=== PATIENT | female | born 1960 | race Caucasian/White ===

== ENCOUNTER → 2018-03-05 10:29 | Outpatient (CLI) | payer MEDICAID, SELFPAY ==
[2018-03-05 15:15] LABS: Abs Immature Grans 0.01 k/cumm (0.0-0.09); Absolute Basophil Count 0.06 k/cumm (0.0-0.2); Absolute Eosinophil Count 0.21 k/cumm (0.0-0.7); Absolute Lymphocyte Count 2.92 k/cumm (1.2-3.4); Absolute Monocyte Count 0.47 k/cumm (0.11-0.7); Absolute Neutrophil Count 3.78 k/cumm (1.2-6.7); Basophils % 0.8; Eosinophils % 2.8; HCT 45.6 % (36.0-46.0); HGB 15.5 g/dL (12.0-15.5); Immature Grans % 0.1; Lymphocytes % 39.2; Mean Corpuscular Hemoglobin 30.6 pg (27.0-33.0); Mean Corpuscular Volume 90.1 fL (80-95); Mean Platelet Volume 10.8 fL (8.0-11.0); Monocytes % 6.3; Neutrophils % 50.8; Platelet Count 164 x1000/uL (130-400); RBC 5.06 m/cumm (4.00-5.20); RBC Distribution Width 14.2 % (11.7-14.6); White Blood Cell Count 7.45 k/cumm (4.4-10.8)
[2018-03-05 15:25] LABS: Prothrombin Time 9.4 sec (9.3-10.8)
[2018-03-05 15:45] LABS: ALT 31 U/L (12-78); AST 19 U/L (15-37); Albumin 4.2 g/dL (3.4-5.0); Alkaline Phosphatase 115 U/L (46-116); Anion Gap 8.6 mmol/L (3-11); BUN 16 mg/dL (7-18); Bilirubin, Total 0.4 mg/dL (0.2-1.0); CO2 26.4 mmol/L (21.0-32.0); CREATININE 0.73 mg/dL (0.55-1.02); Calcium 9.1 mg/dL (8.5-10.1); Chloride 105 mmol/L (98-107); Glucose 129 mg/dL (70-100); Potassium 3.8 mmol/L (3.5-5.1); Sodium 140 mmol/L (136-145); Total Protein 7.4 g/dL (6.4-8.2)
[2018-03-06 12:03] LABS: AFP Tumor Marker <2.0 ng/mL (<8.1)
== END ==
PROVIDERS: PCP Family Medicine; Visit Provider Internal Medicine
DX: K57.81 Diverticulitis of intestine, part unspecified, with perforation and abscess with bleeding (principal)
CPT/HCPCS: 36415; 80053; 82105; 85025; 85610

== ENCOUNTER 2018-03-07 14:48 | Outpatient (CLI) | payer MEDICAID, SELFPAY ==
[2018-03-08 09:45] LABS: Alpha 1 Antitrypsin,Serum 119 mg/dL (90-200)
== END 2018-03-07 14:49 ==
PROVIDERS: PCP Family Medicine; Visit Provider Family Medicine
DX: K74.60 Unspecified cirrhosis of liver (principal)
CPT/HCPCS: 36415; 82103

== ENCOUNTER 2018-03-12 01:28 | Outpatient (CLI) | payer MEDICAID, SELFPAY ==
--- NOTE | 2018-03-12 09:04 | DI.US_ITS ---
SYMPTOM/DIAGNOSIS: H/O HEP C, HCC SCREENING, HEPATIC CIRRHOSIS K74.60 ABDOMINAL ULTRASOUND: 03/12 The patient reportedly has a history of cirrhosis. There is a subtle nodular contour of the liver consistent with this diagnosis. No focal hepatic lesion identified. Gallbladder is normal in appearance as is the biliary system. Spleen is unremarkable in appearance. Kidneys appear normal. Aorta and IVC are of normal diameter. Portal venous flow is normodirectional. CONCLUSION: Negative abdominal ultrasound except for questionable nodular contour of the liver consistent with the patient's diagnosis of hepatic cirrhosis.
== END 2018-03-12 01:48 ==
PROVIDERS: PCP Family Medicine; Visit Provider Internal Medicine
DX: K74.60 Unspecified cirrhosis of liver (principal); B18.2 Chronic viral hepatitis C
CPT/HCPCS: 76700

== ENCOUNTER 2018-04-25 09:15 | Day surgery (SDC) | payer MEDICAID, SELFPAY ==
[2018-04-25 09:51] VITALS: BP 132/88; PULSE 88; RESP 18; TEMP 36.4; O2SAT 95
[2018-04-25 09:55] VITALS: BP 132/88; PULSE 88; RESP 18; TEMP 36.4; O2SAT 95
--- NOTE | 2018-04-25 10:21 | W.PM.DSUDISC ---
Discharge Plan Disposition Patient Disposition: HOME Condition: Good Discharge Details Reason For Visit: R trigger thumb release Attending Provider: Berry Zamudio Primary Care Provider: Hai Lopez Home Meds and New Rx's Prescriptions: Continue meclizine [VertiCalm] 25 MG tablet 25 mg PO HS PRNRF: 0 lancets 1 EACH misc 1 ea Miscellaneous BID Qty: 180 RF: 11 acetaminophen 500 MG tablet 500 mg PO HS PRNRF: 0 omeprazole 40 MG capsule,delayed release(DR/EC) 40 mg PO DAILY Qty: 90 RF: 3 albuterol sulfate [ProAir HFA] 8.5 GM HFA aerosol inhaler 2 puff Inhalation Q4H PRN Qty: 1 RF: 5 blood sugar diagnostic [Ampulseuch Ultra Test] 1 EACH strip 1 ea Miscellaneous QID Qty: 200 RF: 3 insulin aspart U-100 [Novolog Flexpen U-100 Insulin] 100 UNIT/1 ML insulin pen SQ twice daily MDD 40 units Qty: 3 RF: 0 pen needle, diabetic [BD Ultra-Fine Orig Pen Needle] 1 EACH needle 1 ea Miscellaneous BID Qty: 1 RF: 4 lisinopril 20 MG tablet 20 mg PO DAILY Qty: 90 RF: 3 empagliflozin [Jardiance] 25 MG tablet 25 mg PO DAILY Qty: 90 RF: 3 promethazine 12.5 MG tablet 12.5 mg PO Q6H PRN Qty: 30 RF: 0 varenicline [Chantix] 0.5 MG tablet 0.5 mg PO BID 30 Days Qty: 60 RF: 3 Atorvastatin Calcium 20 MG tablet 20 mg PO DAILY 90 Days Qty: 90 RF: 3 gabapentin 300 MG capsule 300 mg PO TID 30 Days Qty: 90 RF: 1 Discharge Instructions Stand Alone Forms: Fania Jose. Finger Release Activity:: Elevate Remove Dressings/Wound Care:: 48 hours Shower/Bathe:: 48 hours Diet:: Carb Counting Discharge Orders Discharge Orders: Discharge Order (Routine); Ordered 04/25/18 Ordered By: Berry Zamudio DS: Diagnosis Discharge Diagnosis (1) Trigger thumb of right hand: Status: Chronic
[2018-04-25 11:45] VITALS: BP 138/83; PULSE 77; RESP 16; O2SAT 96
[2018-04-25] MEDS: Bupivacaine 0.5% Pres-Free 30 ML VIAL (11:49)
[2018-04-25] MEDS: Lidocaine 1% Pres-Free 5 ML VIAL (11:59)
[2018-04-25 12:03] VITALS: BP 144/91; PULSE 65; RESP 17; O2SAT 96
--- NOTE | 2018-04-25 20:36 | W.PM.OP ---
Date of service: 04/25/18 Time of Service: 12:36 Operative Note DATE OF PROCEDURE: 04/25/18 PRE-OP DIAGNOSIS: Trigger Finger - Right Thumb POST-OP DIAGNOSIS: same PROCEDURE: Trigger Finger Release - Right Thumb SURGEON: Berry Zamudio ANESTHESIA: local PATHOLOGY: none sent COMPLICATIONS: None Patient was transported to: same day Patient's condition: stable Indications: I have seen Mary Beth in clinic for symptoms of a trigger finger. The catching, clicking, locking, and pain limited function. The diagnosis of trigger finger was evident. The symptoms had not responded to conservative measures. I discussed trigger finger release with the patient. I reviewed the risks of the procedure to include, but not limited to, bleeding, infection, pain, stiffness, incomplete release, damage to nerves or vessels, continued catching, recurrence. Despite these risks, the patient elected to proceed. Findings: There was a tightened A1 ricky which was released. The flexor tendons were inspected and the patient was able to move the finger without any catching, clicking, or locking. Procedure Description: Mary Beth was greeted in the preoperative holding area where the correct side was identified and marked. The consent was reviewed with the patient and signed. All questions were answered. Mary Beth was taken back to the operating room. The patient was placed into the supine position on the operating room table with the right arm on an arm board. All bony prominences were well padded. No prophylactic antibiotics were administered since this was a clean, elective hand surgical case. The right arm was then prepped with Chloraprep and draped in a standard fashion with stockinette and extremity drape. A timeout to confirm correct identity, side and site, procedure, allergies, anesthesia, and medical concerns was performed. The surgical site was marked as a longitudinal incision directly over the A1 ricky of the involved digit. This was confirmed with palpation during finger flexion. This area, overlying the metacarpal head, was then anesthetized with 1% Lidocaine. The patient tolerated this well and once the anesthetic had setup, the procedure began. A longitudinal incision was made through skin only, approximately 1cm. The deep tissues were dissected bluntly. Once the A1 ricky and flexor tendons were identified the soft tissue including neurovascular structures were retracted medially and laterally. There were no crossing structures over the A1 ricky. The proximal edge of the ricky was identified and the ricky was incised with tenotomy scissors. There was a release of the tendons once this was fully released. The tendons were then removed from the wound and inspected. Excess synovium was resected. The tendons were then returned and the patient was asked to move the finger into deep flexion and back to extension. There was no recreation of the pre-operative symptoms. The hand was then once more inspected for any A0 ricky or area of possible constriction. The wound was then irrigated and the skin was closed with a 4-0 Nylon. This was dressed with gauze and a Conform dressing. The patient tolerated the procedure well and was returned to the Same Day Surgery area in a stable condition suffering no known complication.
--- NOTE | 2018-04-25 20:39 | ROE_ITS ---
Date of service: 04/25/18 Time of Service: 12:36 Operative Note DATE OF PROCEDURE: 04/25/18 PRE-OP DIAGNOSIS: Trigger Finger - Right Thumb POST-OP DIAGNOSIS: same PROCEDURE: Trigger Finger Release - Right Thumb SURGEON: Berry Zamudio ANESTHESIA: local PATHOLOGY: none sent COMPLICATIONS: None Patient was transported to: same day Patient's condition: stable Indications: I have seen Mary Beth in clinic for symptoms of a trigger finger. The catching, clicking, locking, and pain limited function. The diagnosis of trigger finger was evident. The symptoms had not responded to conservative measures. I discussed trigger finger release with the patient. I reviewed the risks of the procedure to include, but not limited to, bleeding, infection, pain , stiffness, incomplete release, damage to nerves or vessels, continued catching , recurrence. Despite these risks, the patient elected to proceed. Findings: There was a tightened A1 rikcy which was released. The flexor tendons were inspected and the patient was able to move the finger without any catching, clicking, or locking. Procedure Description: Mary Beth was greeted in the preoperative holding area where the correct side was identified and marked. The consent was reviewed with the patient and signed. All questions were answered. Mary Beth was taken back to the operating room. The patient was placed into the supine position on the operating room table with the right arm on an arm board. All bony prominences were well padded. No prophylactic antibiotics were administered since this was a clean, elective hand surgical case. The right arm was then prepped with Chloraprep and draped in a standard fashion with stockinette and extremity drape. A timeout to confirm correct identity, side and site, procedure, allergies, anesthesia, and medical concerns was performed. The surgical site was marked as a longitudinal incision directly over the A1 ricky of the involved digit. This was confirmed with palpation during finger flexion. This area, overlying the metacarpal head, was then anesthetized with 1 % Lidocaine. The patient tolerated this well and once the anesthetic had setup , the procedure began. A longitudinal incision was made through skin only, approximately 1cm. The deep tissues were dissected bluntly. Once the A1 ricky and flexor tendons were identified the soft tissue including neurovascular structures were retracted medially and laterally. There were no crossing structures over the A1 ricky. The proximal edge of the ricky was identified and the ricky was incised with tenotomy scissors. There was a release of the tendons once this was fully released. The tendons were then removed from the wound and inspected. Excess synovium was resected. The tendons were then returned and the patient was asked to move the finger into deep flexion and back to extension. There was no recreation of the pre- operative symptoms. The hand was then once more inspected for any A0 rciky or area of possible constriction. The wound was then irrigated and the skin was closed with a 4-0 Nylon. This was dressed with gauze and a Conform dressing. The patient tolerated the procedure well and was returned to the Same Day Surgery area in a stable condition suffering no known complication.
== END 2018-04-25 12:25 | disposition home or self-care (01) ==
PROVIDERS: PCP Family Medicine; Visit Provider Student in an Organized Health Care Education/Training Program
PROC: (CPT 26055; principal; 2018-04-25 12:30)
DX: M65.311 Trigger thumb, right thumb (principal)
CPT/HCPCS: 26055

== ENCOUNTER 2018-11-07 11:04 | Outpatient (CLI) | payer MEDICAID, SELFPAY ==
--- NOTE | 2018-11-07 11:09 | DI.RAD_ITS ---
SYMPTOMS/DIAGNOSIS: LT 5TH PIP PAIN, SWELLING, M79.642 LEFT HAND: Three views were obtained. There are degenerative changes at the radioulnar joint and there is an accessory ossicle of the ulnar styloid. Slight degenerative changes of the IP joints are noted. No other significant abnormality seen.
[2018-11-07 12:34] LABS: Uric Acid 4.2 mg/dL (2.6-6.0)
== END 2018-11-07 11:24 ==
PROVIDERS: PCP Family Medicine; Visit Provider Nurse Practitioner
DX: M79.642 Pain in left hand (principal); M19.042 Primary osteoarthritis, left hand
CPT/HCPCS: 36415; 73130; 84550

== ENCOUNTER 2018-12-06 22:10 | Emergency (ER) | payer MEDICAID, SELFPAY ==
[2018-12-06 22:16] VITALS: BP 138/83; PULSE 113; RESP 17; TEMP 36.5; O2SAT 96
--- NOTE | 2018-12-06 22:19 | W.ED.GENAD ---
Discharge Plan Disposition Patient Disposition: HOME Condition: Stable Discharge Details Chief Complaint: Orthopedic Clinical Impression: Scaphoid fracture, Sprain of wrist Primary Care Provider: Hai Lopez ED Provider: Laura Lloyd Home Meds and New Rx's Prescriptions: Continued albuterol sulfate [ProAir HFA] 90 mcg/actuation HFA aerosol inhaler 2 puff Inhalation Q4H PRN Qty: 1 RF: 3 OneTouch Ultra Test strip 1 ea Miscellaneous QID Qty: 200 RF: 3 Jardiance 25 mg tablet 25 mg PO DAILY Qty: 90 RF: 3 lisinopril 20 mg tablet 20 mg PO DAILY Qty: 90 RF: 3 Chantix 0.5 mg tablet 0.5 mg PO BID 30 Days Qty: 60 RF: 3 pen needle, diabetic [BD Ultra-Fine Mini Pen Needle] 31 gauge x 3/16 needle .ROUTE .MEDSUPPLY Qty: 100 RF: 3 lancets 33 gauge misc 1 ea Miscellaneous BID Qty: 180 RF: 3 albuterol sulfate 1.25 mg/3 mL solution for nebulization 1.25 mg IH QID PRN (Reason: shortness of breath or wheezing) Qty: 120 RF: 2 meclizine [VertiCalm] 25 MG tablet 25 mg PO HS PRNRF: 0 omeprazole 40 MG capsule,delayed release(DR/EC) 40 mg PO DAILY Qty: 90 RF: 3 Lantus Solostar U-100 Insulin 100 unit/mL (3 mL) insulin pen 46 unit SC DAILY Qty: 15 RF: 3 Discharge Instructions Instructions: Wrist Sprain (ED) Additional Instructions: Encourage rest, ice, elevation. Tylenol and/or Ibuprofen as needed for discomfort. Use thumb spica until reevaluated by orthopedics. Please call orthopedics Sunday to schedule follow up. Avoid heavy lifting. Seek care urgently once again with new/worsening symptoms. Stand Alone Forms: Work Release Referrals: Hai Lopez DO [Primary Care Provider] - Berry Zamudio MD [ [facility] STAFF PHYSICIAN] - Discharge Data Discharge Date/Time-TO BE ENTERED AT DEPARTURE: 12/06/18 23:21 Medical Decision Making Patient is a 58-year-old [id number] female presents today after FOOSH. Reports that she was stepping over a low fence when she tripped falling forward on her outstretched hand. Denies any altered sensation. Denies other injury the time of the incident. No opening of the skin. Patient is tender over the snuffbox and distal radius. She is also endorsing some elbow discomfort really on the lateral aspect. She does have good range of motion of the elbow with flexion extension but supination pronation causes discomfort in the wrist. No evidence of trauma elsewhere. Brisk capillary refill, sensation intact. Will give Toradol, patient has been on this historically with good results. Will obtain radiographic images. XR reviewed by radiologist with no acute abnormality noted. Encouraged RICE. with the patients snuffbox tenderness, will place in thumb spica and have her f/u with ortho. She has seen Dr. Zamudio historically, had trigger finger released on affected hand. All of her questions and concerns were addressed and she is in agreement this plan HPI General Mode of arrival: ambulatory. Date/Time Provider Initiated Documentation: 12/06/18 22:18. Limitations to Documentation: no limitations. Information obtained by: patient. History of Present Illness 58 year old F presents to the emergency department with the chief complaint of right wrist and elbow pain, described as severe, with intensity rated at 10. Quality is described as sharp, and is localized to the right and upper extremity. Patient reports no radiation. Patient started experiencing this minute(s) and it has been constant. Immobilization improves symptom(s), Movement worsens symptoms . Patient notes no other symptoms.. Patient did receive the following treatments prior to arrival, cold therapy Related Data Home Medications Medication Instructions Recorded Confirmed meclizine [VertiCalm] 25 mg PO HS PRN tab-cap 11/27/13 12/06/18 omeprazole 40 mg PO DAILY #90 tab-cap 05/09/16 12/06/18 albuterol sulfate HFA 90 2 puff INHALATION Q4H PRN #1 puff 06/06/18 12/06/18 mcg/actuation aerosol inhaler blood sugar diagnostic strips #200 strip 06/06/18 11/06/18 empagliflozin 25 mg tablet 25 mg PO DAILY #90 tab 06/06/18 12/06/18 lisinopril 20 mg tablet 20 mg PO DAILY #90 tab-cap 06/06/18 12/06/18 varenicline 0.5 mg tablet 0.5 mg PO BID 30 Days #60 tab-cap 06/06/18 12/06/18 albuterol sulfate 1.25 mg/3 mL 1.25 mg IH QID PRN #120 ml 07/03/18 12/06/18 solution for nebulization lancets 33 gauge #180 ea 09/13/18 11/06/18 pen needle, diabetic 31 gauge x #100 each 09/13/18 11/06/1809/21 insulin glargine (U-100) 100 46 unit SC DAILY #15 ml 09/19/18 12/06/18 unit/mL (3 mL) subcutaneous pen Previous Rx's Medication Instructions Recorded albuterol sulfate HFA 90 2 puff INHALATION Q4H PRN #1 puff 06/06/18 mcg/actuation aerosol inhaler blood sugar diagnostic strips #200 strip 06/06/18 empagliflozin 25 mg tablet 25 mg PO DAILY #90 tab 06/06/18 lisinopril 20 mg tablet 20 mg PO DAILY #90 tab-cap 06/06/18 varenicline 0.5 mg tablet 0.5 mg PO BID 30 Days #60 tab-cap 06/06/18 albuterol sulfate 1.25 mg/3 mL 1.25 mg IH QID PRN #120 ml 07/03/18 solution for nebulization lancets 33 gauge #180 ea 09/13/18 pen needle, diabetic 31 gauge x #100 each 09/13/1809/21 insulin glargine (U-100) 100 46 unit SC DAILY #15 ml 09/19/18 unit/mL (3 mL) subcutaneous pen Allergies Allergy/AdvReac Type Severity Reaction Status Date / Time fluoxetine HCl [From Prozac] Allergy Intermediate rash Verified 12/06/18 22:22 metformin AdvReac Severe diarrhea Verified 12/06/18 22:22 rofecoxib [From Vioxx] AdvReac Severe bleeding Verified 12/06/18 22:22 aspirin AdvReac Intermediate GI Upset Verified 12/06/18 22:22 celecoxib [From Celebrex] AdvReac Intermediate GI Upset Verified 12/06/18 22:22 naproxen AdvReac Intermediate Stomach Verified 12/06/18 22:22 intolerance Review of Systems Constitutional Reports as per HPI, Denies chills, Denies fever(s), Denies headache(s) and Denies weakness ENT Denies headache(s) Cardiovascular Reports as per HPI Respiratory Reports as per HPI and Denies cough Musculoskeletal Reports as per HPI and Denies tingling Integumentary/Breasts Reports as per HPI, Denies rash and Denies wounds Neurologic Reports as per HPI, Denies headache(s), Denies tingling, Denies paresthesias and Denies weakness PFS Surgical History COLONOSCOPY W/ BX (10/10/17) section UGI W/ BX (10/10/17) elbow surg x2 ganglion wrist cyst removal x2 salivary gland (02/23/17) Family History Father Heart disease Sister COPD (chronic obstructive pulmonary disease) Obese Sister No problems noted. Brother Diabetes Essential hypertension Brother COPD (chronic obstructive pulmonary disease) Brother No problems noted. 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 Pets and animals: Yes What type of physical activity do you participate in: none Do you feel safe at home: Yes Do you feel safe in your relationship?: Yes Exam Const General: cooperative, healthy appearing, comfortable, no acute distress, well developed and well groomed Nutritional Appearance: average body habitus and well nourished Orientation: alert and awake Resp Effort & Inspection: normal respiratory effort, able to speak in complete sentences and no respiratory distress Cardio Rate: regular rate Rhythm: regular rhythm Skin General skin exam: no rashes or lesions noted Lesions: no lesions Rashes: no rashes Trauma: no lacerations or abrasions Neuro General: alert and awake Cognition: normal cognition Speech: speech normal Gait: normal gait Motor: muscle tone normal throughout Sensory Exam: no sensory deficits noted Extrem Right upper extremity: normal capillary refill, elbow/forearm Details: tenderness Location: of the lateral epicondyle, normal ROM and distal pulses intact; no swelling, no unusual warmth, no abrasions and no ecchymosis, wrist Details: tenderness Location: of the distal radius and of the anatomic snuffbox, abnormal ROM Details: pain with active ROM during, normal vascular exam and radial pulse present; no unusual warmth, no abrasions, no lacerations, no ecchymosis and no deformity and hand Details: normal to inspection, normal capillary refill, neuromotor exam normal and neurosensory exam normal; no cyanosis and no edema Psych Appearance: grossly normal and well kempt Mental Status: mental status grossly normal Speech and Movement: speech and movement normal
--- NOTE | 2018-12-06 22:32 | DI.RAD_ITS ---
SYMPTOM/DIAGNOSIS: FELL ON OUTSTRETCHED HAND, PAIN RIGHT ELBOW: Three views were obtained. There are mild degenerative changes of the joints of the elbow. There is no evidence of an elbow joint effusion or hemarthrosis. There is no evidence of acute fracture. RIGHT WRIST: Four views were obtained. There are mild degenerative changes of the joints of the carpus. There is no evidence of acute fracture or dislocation.
--- NOTE | 2018-12-07 00:06 | DI.VRAD_ITS ---
EXAM: XR Right Wrist EXAM DATE/TIME: 12/06/2018 10:35 PM CLINICAL HISTORY: 58 years old, female; Injury or trauma; Fall; Initial encounter; Abrasion; Wrist; Right; Injury date: 12/06/18; Patient HX: Foosh TECHNIQUE: Imaging protocol: XR Right wrist. Views: 3 or more views. COMPARISON: No relevant prior studies available. FINDINGS: Bones/joints: Normal. Soft tissues: Normal. IMPRESSION: No acute findings. Dictated and Authenticated by: Otilio Lang MD. Ordering:LLUVIA Sanchez MD
--- NOTE | 2018-12-07 00:06 | DI.VRAD_ITS ---
EXAM: XR Right Elbow EXAM DATE/TIME: 12/06/2018 10:35 PM CLINICAL HISTORY: 58 years old, female; Injury or trauma; Fall; Initial encounter; Sprain or strain; Elbow; Right; Injury details: Foosh TECHNIQUE: Imaging protocol: XR Right elbow. Views: 3 or more views. COMPARISON: No relevant prior studies available. FINDINGS: Bones/joints: There is no evidence of a fracture or a dislocation. There is a small olecranon spur. Soft tissues: There are no fat pad signs. IMPRESSION: Small olecranon spur. No evidence of a fracture or a dislocation. Dictated and Authenticated by: Otilio Lang MD. Ordering:LLUVIA Sanchez MD
== END 2018-12-06 23:21 | disposition home or self-care (01) ==
PROVIDERS: Emergency Provider Physician Assistant; PCP Family Medicine
DX: S63.501A Unspecified sprain of right wrist, initial encounter (principal); M25.521 Pain in right elbow; W01.0XXA Fall on same level from slipping, tripping and stumbling without subsequent striking against object, initial encounter
CPT/HCPCS: 96372; 99284; 73080; 73110; L3807

== ENCOUNTER 2018-12-23 08:42 | Outpatient (CLI) | payer MEDICAID, SELFPAY ==
--- NOTE | 2018-12-23 08:22 | DI.RAD_ITS ---
SYMPTOM/DIAGNOSIS: F/U RT WRIST PAIN RIGHT WRIST: No fracture or dislocation is seen. There are mild degenerative changes. No erosive or productive changes are seen. IMPRESSION: Mild degenerative changes.
== END 2018-12-23 09:02 ==
PROVIDERS: PCP Family Medicine; Visit Provider Student in an Organized Health Care Education/Training Program
DX: M25.531 Pain in right wrist (principal); M19.031 Primary osteoarthritis, right wrist
CPT/HCPCS: 73110

== ENCOUNTER 2019-04-16 16:58 | Outpatient (REF) | payer MEDICAID, SELFPAY | END 2019-04-16 17:18 | LOC: LBO 16:58 | PROVIDERS: PCP Family Medicine; Visit Provider Internal Medicine | DX: J44.1 Chronic obstructive pulmonary disease with (acute) exacerbation (principal) | CPT/HCPCS: 87070; 87205 ==

== ENCOUNTER 2019-08-29 02:42 | Outpatient (CLI) | payer MEDICAID, SELFPAY ==
--- NOTE | 2019-08-29 12:45 | DI.CT_ITS ---
EXAM: CT HEAD WO CLINICAL HISTORY: Transient vision loss R eye, residual red desat, optic neuritis, rt H46.9. TECHNIQUE: Imaging Protocol: Axial computed tomography images with coronal and sagittal reformatted images were created and reviewed Noncontrast COMPARISON: No exams were available for comparison FINDINGS: Ventricles and Extra axial spaces: Normal in size and morphology for the patient's age. Hemorrhage: None. Cerebral parenchyma: Normal. Midline shift: None. Brainstem/Cerebellum: Normal. Calvarium: Normal. Visualized Paranasal sinuses/Mastoids: Clear. The orbits are unremarkable. IMPRESSION: Normal CT of the head. RADIATION DOSE DELIVERED: DATA REPOSITORY: All CT scans at this facility are submitted to the National Radiology Data Registry (NRDR) Dose Index Registry (DIR) with the [employer] (ACR). RADIATION OPTIMIZATION: All CT scans at this facility use at least one of these dose optimization te chniques: automated exposure control; mA and/or kV adjustment per patient size (includes targeted exa ms where dose is matched to clinical indication); or iterative reconstruction.
== END 2019-08-29 03:02 ==
PROVIDERS: PCP Family Medicine; Visit Provider Family Medicine
DX: H53.121 Transient visual loss, right eye (principal); H53.8 Other visual disturbances
CPT/HCPCS: 70450

== ENCOUNTER 2019-09-19 06:48 | Outpatient (CLI) | payer MEDICAID, SELFPAY ==
--- NOTE | 2019-09-18 06:30 | DI.MRI_ITS ---
EXAM: MR C SPINE T SPINE WO/W CLINICAL HISTORY: Possible neuromyelitis optica TECHNIQUE: Multiplanar multisequence MRI was performed without intravenous contrast. COMPARISON: MRI - LUMBAR SPINE WO CONTRAST from 03/18/2015 FINDINGS: MRI of the cervical spine: There is no evidence of tonsillar ectopia. There is normal signal seen in the spinal cord. There is mild prominence of the osteophyte disc complex at C5-6 and C6-C7. No significant central spinal can al or neural foraminal stenosis is seen in the cervical spine. Marrow signal is within normal limits . Following contrast administration, no abnormal enhancement is seen in the cervical spinal cord. MRI of the thoracic spine: There is normal signal in the spinal cord. Marrow signal is within normal limits. No focal disc her niation, central spinal canal or neural foraminal stenosis is seen in the thoracic spine. Following contrast administration, no abnormal enhancement is seen in the thoracic spinal cord. IMPRESSION: Unremarkable MRI of the cervical and Thoracic spine. No abnormal enhancement of the cervical or thora cic spinal cord. DATA REPOSITORY:
--- NOTE | 2019-09-19 06:42 | DI.MRI_ITS ---
EXAM: MR ORBIT FACIAL NECK WO/W CLINICAL HISTORY: R SIDED SYMPTOMS SUGGESTIVE OF OPTIC NEURITIS, H46.9, POSSIBLE NEUROMYELITIS TECHNIQUE: Multiplanar multisequence MRI of Pelvis was performed. CONTRAST MATERIAL: IV Contrast: 19 mL of Dotarem contrast administered. COMPARISON: No exams were available for comparison FINDINGS: ORBITS: The anterior and posterior chambers of the globes are intact. The retrobulbar fat is unremark able. Extraocular muscles are unremarkable. OPTIC NERVES: The intracranial and extracranial portions of the optic nerves are within normal limits . Optic chiasm is within normal limits. No MRI evidence of optic neuritis identified. SOFT TISSUES: The soft tissues are unremarkable. OTHER FINDINGS: The [place] of [place] is unremarkable. The visualized paranasal sinuses are clear. T he visualized intracranial structures are unremarkable. IMPRESSION: Normal MRI examination of the orbits. DATA REPOSITORY:
[2019-09-19 08:38] LABS: Anion Gap 6.4 mmol/L (3-11); BUN 22 mg/dL (7-18); CO2 30.6 mmol/L (21.0-32.0); CREATININE 0.86 mg/dL (0.55-1.02); Calcium 8.8 mg/dL (8.5-10.1); Chloride 103 mmol/L (98-107); Glucose 231 mg/dL (74-106); Sodium 140 mmol/L (136-145)
[2019-09-19] MEDS: Normal Saline Flush 10 ML SYR IVP (09:02)
[2019-09-19] MEDS: Gadoterate meglumine 20 ML VIAL 19 ML IVP (09:04)
== END 2019-09-19 07:08 ==
PROVIDERS: PCP Family Medicine; Visit Provider Family Medicine
DX: H46.9 Unspecified optic neuritis (principal); M25.78 Osteophyte, vertebrae
CPT/HCPCS: 80048; 70543; 72156; 72157; 82565

== ENCOUNTER 2019-10-16 00:45 | Outpatient (CLI) | payer MEDICAID, SELFPAY ==
--- NOTE | 2019-10-16 06:45 | DI.US_ITS ---
EXAM: US CAROTID CLINICAL HISTORY: right eye vision loss,CVA,I63.9 TECHNIQUE: Ultrasound performed using standard protocol. COMPARISON: US ABDOMEN from 03/12/2018 FINDINGS: Duplex evaluation of the carotid circulation was performed according to the usual protocol. There is minimal visible atheromatous plaque in the carotid bulbs bilaterally. Flow velocities in the common , internal, and external carotid arteries are within normal limits bilaterally. There is bilateral antegrade vertebral artery flow. IMPRESSION: No evidence of a hemodynamically significant carotid stenosis. Minimal atheromatous plaque in the ca rotid bulbs bilaterally. DATA REPOSITORY:
== END 2019-10-16 01:05 ==
PROVIDERS: PCP Family Medicine; Visit Provider Psychiatry & Neurology Neurology
DX: H54.61 Unqualified visual loss, right eye, normal vision left eye (principal); I63.9 Cerebral infarction, unspecified; I65.23 Occlusion and stenosis of bilateral carotid arteries
CPT/HCPCS: 93880

== ENCOUNTER 2019-10-29 00:45 | Outpatient (CLI) | payer MEDICAID, SELFPAY ==
--- NOTE | 2019-10-29 13:56 | DI.US_ITS ---
APPROVED REPORT EXAM: Comprehensive 2D, Doppler, and color-flow Echocardiogram Patient Location: Out-Patient Commercial Loan Collection Officer: Halie Melgar RDCS (AE) Indications: R eye vision loss, Cerebral infarction Other Information Study Quality: Technically Limited Conclusion Left Ventricle : The left ventricle is normal size. The overall left ventricular systolic function ap pears normal. There is normal left ventricular wall thickness. There is normal LV segmental wall diaz on. The left ventricular diastolic function is normal. LVEF is 55-60%. Right Ventricle : The right ventricle is normal size. The right ventricular systolic function is norm al. Atria : The left atrium size is normal. The right atrium size is normal. The interatrial septum is in tact with no evidence for an atrial septal defect. Valves: There are no hemodynamically significant valvular lesions. Great Vessels : IVC is normal in size and collapses >50% with inspiration. There is none of tricuspi d regurgitation to estimate RVSP. Please see remainder of study for additional details. There is no prior echocardiogram available for comparison. Wall motion Left Ventricle The left ventricle is normal size. The overall left ventricular systolic function appears normal. The re is normal left ventricular wall thickness. There is normal LV segmental wall motion. The left vent ricular diastolic function is normal. There is no ventricular septal defect visualized. LVEF is 55-60 %. Right Ventricle The right ventricle is normal size. The right ventricular systolic function is normal. Atria The left atrium size is normal. The right atrium size is normal. The interatrial septum is intact wit h no evidence for an atrial septal defect. Aortic Valve The Aortic valve is sclerotic. Aortic valve is probably trileaflet. There is no aortic valvular steno sis. No aortic regurgitation is present. Mitral Valve There is mitral annular calcification. No evidence of mitral valve stenosis. Trace mitral regurgitati on. Tricuspid Valve The tricuspid valve is normal in structure. There is no tricuspid valve stenosis. Trace tricuspid reg urgitation. Unable to assess PA pressure. Pulmonic Valve Pulmonic valve is not well visualized. There is no pulmonic valvular stenosis. There is no pulmonic v alvular regurgitation. Great Vessels The aortic root is normal in size. The ascending aorta is normal in size. IVC is normal in size and c ollapses >50% with inspiration. There is none of tricuspid regurgitation to estimate RVSP. Pericardium There is no pericardial effusion. 2D Dimensions IVSD d PLAX 1.04 cm F: 0.6-1.0 LV Vol A2C d MOD 53.5 mL LVPW d PLAX 1.02 cm F: 0.6 - 1.0 LV Vol A4C d MOD 65.0 mL LVID d PLAX 4.48 cm F: 3.8 - 5.2 LA vol/ BSA A2C s A-L 16.2 mL/m2 LVDs 3.00 cm F: 2.2 - 3.5 LA vol/ BSA A4C s A-L 19.9 mL/m2 Ao Root d 2.34 cm F: 2.7 - 3.3 LA Vol/ BSA Biplane s A-L 18.5 mL/m2 RA Area A4C 9.15 cm2 LA Area A4C s MOD 15.14 cm2 RA Vol/ BSA A4C s A-L 8.1 mL/m2 LA Area A2C s MOD 13.28 cm2 Ao Asc Diam d 3.12 cm F: 2.3 - 3.1 LV EF A4C MOD 58.9 % LV EF Teichholz 60.3 % LV EF A2C MOD 61.6 % LVEF (Katz's) 60.39 % F: 54 - 74 LV EF Biplane MOD 60.4 % LV Volume 44.57 mL F: 46 - 106 LV Volume Index 22.73 mL/m2 F: 29 - 61 LV Vol Biplane MOD 59.1 mL FS 31.95 % M-Mode TAPSE 1.90 cm (M/F) >1.7 LV Diastology MV E' medial 0.077 (>0.07 m/s) E/A Ratio 0.9 LV E/e MED 8.70 (<14) MV E Vmax 0.67 (0.4-1.3 m/s) MV E' lateral 0.081 (>0.1 m/s) MV A Vmax 0.75 (0.4-1.3 m/s) LV E/e LAT 8.30 (<14) MV E/A Ratio 0.88 MV E/E' medial 8.74 MV E/E' lateral 8.34 Aortic Valve LVOT Area 2.17 cm2 AoV Area Vmax 1.81 cm2 LVOT Vmax 1.07 m/s AoV Area/ BSA (Vmax) 0.92 cm2/m2 LVOT Mean Dagoberto. 0.64 m/s BRIANNA Mean Dagoberto. 1.53 cm2 LVOT Peak Grad 4.6 mmHg BRIANNA Mean Dagoberto. Index 0.78 cm2/m2 LVOT Mean Grad 2.0 mmHg LVOT VTI 0.214 m LVOT Diam s 1.65 cm (M/F) 1.5-2.5 AoV Vmax 1.28 (0.5-1.3 m/s) Velocity Ratio 0.83 AoV Mean Dagoberto. 0.91 m/s AoV Peak Grad 6.5 mmHg LVOT SV 46.33 mL AoV Mean Grad 3.7 (<5 mmHg) AoV VTI 0.233 (0.18-0.25 m) AoV Area VTI 1.99 (2.5-4.5 cm2) AoV Area/ BSA (VTI) 1.01 cm/m2 Mitral Valve MV DT 276 (160-240 msec) MV PHT 80 msec MV Area PHT 2.75 cm2 Pulmonary Valve PV Vmax 0.92 (0.5-1.5 m/s) RVOT Peak Gr. 2.43 mmHg PV Peak Grad 3.4 mmHg RVOT Mean Gr. 1.20 mmHg PV Mean Grad 2.0 mmHg RVOT VTI 0.138 m PV VTI 0.187 m RVOT Vmax 0.78 m/s
== END 2019-10-29 01:05 ==
PROVIDERS: PCP Family Medicine; Visit Provider Psychiatry & Neurology Neurology
DX: I63.9 Cerebral infarction, unspecified (principal); H54.61 Unqualified visual loss, right eye, normal vision left eye; I10 Essential (primary) hypertension; E11.9 Type 2 diabetes mellitus without complications; Z79.4 Long term (current) use of insulin
CPT/HCPCS: 93306

== ENCOUNTER 2019-11-03 01:02 | Outpatient (CLI) | payer MEDICAID, SELFPAY | END 2019-11-03 01:22 | PROVIDERS: PCP Family Medicine; Visit Provider Psychiatry & Neurology Neurology | DX: R69 Illness, unspecified (principal) ==

== ENCOUNTER 2019-12-12 02:49 | Outpatient (CLI) | payer MEDICAID, SELFPAY ==
--- NOTE | 2020-01-13 08:31 | W.CARDEVENT ---
Date of service: 01/13/20 Time of Service: 08:31 Cardiac Event Recorder Cardiac Event Note: This is a cardiac event recorder from December 11 through January 10, 2020 Rhythm throughout was sinus. Average heart rate was 94 bpm. There was no atrial fibrillation detected There were rare atrial and ventricular ectopic beats. There were no pauses or significant bradycardia
== END 2019-12-12 03:09 ==
PROVIDERS: PCP Family Medicine; Visit Provider Psychiatry & Neurology Neurology
DX: H54.61 Unqualified visual loss, right eye, normal vision left eye (principal)
CPT/HCPCS: 93270

== ENCOUNTER 2020-07-22 12:00 | Outpatient (CLI) | payer MEDICAID, SELFPAY ==
--- NOTE | 2020-07-28 08:10 | NS.NUTBLAN_ITS ---
Date of service: 07/22/20 Time of Service: 10:00 Nutritional Consult ASSESSMENT: DESCRIPTION/ASSESSMENT: Mary Beth has a referral from PATRICIA for DM annual f/u, edu review and CGM placement. She has hx elevated BG and reports using fingersticks 1x/day with readings in the high 200's. Finger stick at this office visit revealed 308mg/dl. A1c documented at 11.6% 07/29. Her A1c has gradually increase since 12/25. Mary Beth is on 30u Lantus in am and 56 u pm. She Takes blous of humalog 4u at breakfast and lunc and 5u at supper. Her sugars remain high. She is on Jardiance 25mg 1x/day. Noted: she has allergy to Metformin. INTERVENTION: We reviewed CHO counting regimen with goal of <60g CHO/ per meal period. Demonstrated and recommended carbs and james phone genesis to help with portion control and CHO counting. Provided CHO counting and label reading literature whichj included portion sizes to achieve 15 g per serving CHO. 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 She confirmed she has s/s blurry vision and peripheral neuropathy. Recommended regular visits to p odiatrist and chief accounting officer. Educated Mary Beth on benefits of CGM and helped her place Rewardable Libre2 device. Set alarm 70-220 mg/dl to help with mindfulness. Reviewed action plans for hyper and hypoglycemic episodes should they occur. Invited patient to [employer] tracking feature to give support with TIR, Glycemic variability and other data analysis. PLAN: Mary Beth will contact PCP for prescription for backup sensors moving forward. She is going to return in 14 days for f/u w/ this RD to replace sensor and use [employer] feature to correlate behaviors, insulin use, food choices and physical activities with BG levels. NUTRITIONAL DIAGNOSIS: High Blood Glucose Levels r/t DM AEB: A1c 11.6% and on insulin Time Spent in Nutritional Counseling and Treatment: 1 hour/4 units
== END 2020-07-22 12:20 ==
PROVIDERS: PCP Family Medicine; Visit Provider Dietitian, Registered
DX: E11.65 Type 2 diabetes mellitus with hyperglycemia (principal); Z79.4 Long term (current) use of insulin; Z71.3 Dietary counseling and surveillance
CPT/HCPCS: 97802

== ENCOUNTER 2020-08-05 20:22 | Outpatient (REF) | payer MEDICAID, SELFPAY ==
[2020-08-06 18:22] LABS: COVID-19 RT-PCR UVMMC Result Negative (Negative)
== END 2020-08-05 20:42 ==
LOC: LBN 20:22
PROVIDERS: PCP Family Medicine; Visit Provider Nurse Practitioner Family
DX: J06.9 Acute upper respiratory infection, unspecified (principal)
CPT/HCPCS: U0003

== ENCOUNTER 2020-09-09 04:00 | Outpatient (CLI) | payer MEDICAID, SELFPAY ==
[2020-09-09 14:30] LABS: ALT 50 U/L (14-59); AST 27 U/L (15-37); Alkaline Phosphatase 106 U/L (46-116); Anion Gap 9.3 mmol/L (3-11); BUN 21 mg/dL (7-18); Bilirubin, Total 0.5 mg/dL (0.2-1.0); CO2 29.7 mmol/L (21.0-32.0); CREATININE 0.8 mg/dL (0.55-1.02); Calcium 8.7 mg/dL (8.5-10.1); Calculated LDL 117 mg/dL (<100); Chloride 105 mmol/L (98-107); Cholesterol 226 mg/dL (<200); Glucose 150 mg/dL (74-106); HDL Cholesterol 57 mg/dL (40-60); Potassium 3.7 mmol/L (3.5-5.1); Sodium 144 mmol/L (136-145); Total Protein 7.2 g/dL (6.4-8.2); Triglyceride 262 mg/dL (<150)
[2020-09-09 14:32] LABS: Creatine Kinase 30 U/L (26-192)
[2020-09-09 14:38] LABS: C-Reactive Protein 0.15 mg/dL (0.0-0.3)
[2020-09-09 21:04] LABS: Rheumatoid Factor <8.6 IU/mL (<12.0)
[2020-09-09 22:41] LABS: ESR 16 mm/hr (<or=30)
[2020-09-10 09:27] LABS: Cyclic Citrullinated Peptide <2.5 U/mL (<5.0)
== END 2020-09-09 04:01 | disposition home or self-care (01) ==
LOC: LBO 04:00
PROVIDERS: PCP Family Medicine; Visit Provider Family Medicine
DX: E78.5 Hyperlipidemia, unspecified (principal); M13.0 Polyarthritis, unspecified
CPT/HCPCS: 36415; 80053; 80061; 82550; 85652; 86200; 86140; 86431

== ENCOUNTER 2020-10-14 00:38 | Outpatient (CLI) | payer MEDICAID, SELFPAY ==
--- NOTE | 2020-10-14 06:30 | DI.MAMMO_ITS ---
EXAM: MG MAMMO SCREENING CLINICAL HISTORY: screening,Z12.39 TECHNIQUE: Bilateral full field digital CC and MLO mammographic images were obtained with 3D tomosyn thesis and utilizing computer aided detection (CAD). COMPARISON: Available for comparison. FINDINGS: Masses/Architectural Distortion: None seen. Microcalcifications: No suspicious pleomorphic-type are seen. Skin Thickening/Nipple Retraction: None. IMPRESSION: 1. No significant interval change with no specific features of malignancy noted. 2. Unless there is more urgent need, screening mammography is recommended, as per [employer] guidelines. BI-RADS Category 1 - Negative Breast Density - Category B - Scattered areas of fibroglandular density Breast density category C or D implies that the patient has dense breast tissue. Dense breast tissue is very common and is not abnormal but dense breast tissue can make it harder to find cancer on a ma mmogram. Also, dense breast tissue may increase their breast cancer risk. This information about the result of the mammogram report was provided to the patient to raise their awareness. Use this report when you speak with the patient about their risks for breast cancer, which includes their family hist ory. At that time, you may recommend for more screening tests (Ultrasound or MRI) as they might be us eful based on their risk. A negative radiographic report should not delay biopsy if a dominant or clinically suspicious mass is present. Up to ten percent of cancers are not identified on mammography. A negative report may reinforce clinical impression. Adenosis and dense breasts may obscure an underlying neoplasm. False positive reports average 6 to 10%. Patient will receive a letter notifying them of these results.
--- NOTE | 2020-10-14 07:53 | DI.CTLCSR_ITS ---
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 Mediastinum and [place]: No dominant adenopathy or fluid collection. Pulmonary parenchyma: No consolidation or dominant measurable mass. Mild to moderate emphysematous ch anges. Mild basilar scarring or atelectasis. Small area of scarring posterior right upper lobe ne ar the major fissure. Lung Nodules: 2 millimeter peripheral nodule anterior right upper lobe. Pleura: No effusion or pneumothorax. Heart: The heart is not dilated. Minimal coronary artery calcifications are seen. Aorta: Thoracic aorta non-dilated.Minimal atherosclerotic changes. Upper abdomen: Unremarkable. Bones: Degenerative changes. Soft Tissues: Unremarkable. IMPRESSION: 2 millimeter right upper lobe nodule. Jdip-of-zhnlejic emphysematous changes. Mild bilateral scarri ng. Lung RADS Cat 1 - Negative: No nodules and definitely benign nodules Lung-RADS 1.0 CATEGORIES: Category 0 - Prior chest CT exam(s) being located for comparison. Category 1 - Annual screening in 12 months. No nodules or definitely benign nodules. Category 2 - Annual screening in 12 months. Benign appearance. Nodules with low likelihood of becomin g active cancer. Category 3 - 6-month follow-up. Probably benign. Short-term follow-up suggested. Nodules with low lik elihood of becoming active cancer. Category 4A - 3-month follow-up and CT/PET if >8 mm in size. Suspicious finding. Findings which requi re additional testing. Category 4B - Findings which require additional testing and tissue sampling. Modifier S- Potentially clinically significant findings (non lung cancer) RADIATION DOSE DELIVERED: 87.77mGy.cm Total DLP 2.21mGy CTDIvol DATA REPOSITORY: All CT scans at this facility are submitted to the National Radiology Data Registry (NRDR) Dose Index Registry (DIR) with the [employer] ([employer]). RADIATION OPTIMIZATION: All CT scans at this facility use at least one of these dose optimization te chniques: automated exposure control; mA and/or kV adjustment per patient size (includes targeted exa ms where dose is matched to clinical indication); or iterative reconstruction.
== END 2020-10-14 00:58 ==
PROVIDERS: PCP Family Medicine; Visit Provider Family Medicine
DX: Z12.31 Encounter for screening mammogram for malignant neoplasm of breast (principal); Z87.891 Personal history of nicotine dependence
CPT/HCPCS: 71271; 77063; 77067

== ENCOUNTER 2020-10-14 02:11 | Outpatient (CLI) | payer MEDICAID, SELFPAY | END 2020-10-14 02:12 | disposition home or self-care (01) | LOC: LBO 02:11 | PROVIDERS: PCP Family Medicine; Visit Provider Family Medicine | DX: M13.0 Polyarthritis, unspecified (principal) | CPT/HCPCS: 36415; 86140 ==

== ENCOUNTER 2020-11-19 03:57 | Outpatient (CLI) | payer MEDICAID, SELFPAY ==
[2020-11-22 00:11] LABS: Anaplasma phagocytophilum Negative (Negative); B. miyamotoi PCR Negative (Negative); Babesia divergens/MO-1 Negative (Negative); Babesia duncani Negative (Negative); Babesia microti Negative (Negative); Ehrlichia chaffeensis Negative (Negative); Ehrlichia ewingii/canis Negative (Negative); Ehrlichia muris eauclairensis Negative (Negative)
[2020-11-22 12:05] LABS: Lyme Ab w Rflx to Lyme Confirm Negative (Negative)
== END 2020-11-19 03:58 | disposition home or self-care (01) ==
LOC: LBO 03:57
PROVIDERS: PCP Family Medicine; Visit Provider Family Medicine
DX: M79.18 Myalgia, other site (principal)
CPT/HCPCS: 36415; 87798; 86618

== ENCOUNTER 2021-02-27 18:51 | Emergency (ER) | payer MEDICAID, SELFPAY ==
--- NOTE | 2021-02-27 18:53 | ED.GENADUL_ITS ---
Discharge Plan Disposition Patient Disposition: HOME Condition: Stable Discharge Details Clinical Impression: Hypoglycemia Primary Care Provider: Hai Lopez ED Provider: Shad Preston Home Meds and New Rx's Prescriptions: Continued aspirin [Adult Aspirin Regimen] 81 mg tablet,delayed release (DR/EC) 81 mg PO DAILY RF: 0 albuterol sulfate 1.25 mg/3 mL solution for nebulization 1.25 mg IH QID PRN (Reason: shortness of breath or wheezing) Qty: 120 RF: 2 paroxetine HCl [Paxil] 20 mg tablet 20 mg PO DAILY Qty: 90 RF: 3 lisinopril 20 mg tablet 20 mg PO DAILY Qty: 90 RF: 3 (DME) pen needle, diabetic [BD Ultra-Fine Mini Pen Needle] 31 gauge x 3/16 needle See Dose Instructions .ROUTE .MEDSUPPLY Qty: 100 RF: 12 pregabalin 150 mg capsule 150 mg PO BID Qty: 180 RF: 3 Tresiba FlexTouch U-200 200 unit/mL (3 mL) insulin pen See Rx Instructions subcut BID Qty: 18 RF: 6 (DME) lancets 33 gauge misc 1 ea Miscellaneous BID Qty: 180 RF: 3 omeprazole 40 mg capsule,delayed release(DR/EC) 40 mg PO DAILY Qty: 90 RF: 3 (DME) FreeStyle Coby 14 Day [place] Misc See Rx Instructions .ROUTE .MEDSUPPLY Qty: 1 RF: 0 (DME) FreeStyle Coby 2 Sensor Kit See Rx Instructions .ROUTE .MEDSUPPLY Qty: 2 RF: 11 (DME) FreeStyle Test Strip See Rx Instructions .ROUTE .MEDSUPPLY Qty: 100 RF: 6 meclizine [VertiCalm] 25 mg tablet 25 mg PO DAILY Qty: 90 RF: 3 albuterol sulfate [ProAir HFA] 90 mcg/actuation HFA aerosol inhaler 2 puff Inhalation Q4H PRN Qty: 1 RF: 6 Discontinued insulin lispro [Humalog KwikPen Insulin] 100 unit/mL insulin pen See Rx Instructions SC BID Qty: 15 RF: 3 Jardiance 25 mg tablet 25 mg PO DAILY Qty: 90 RF: 3 Discharge Instructions Instructions: Hypoglycemia in a Person with Diabetes (ED) Additional Instructions: hold your diabetes medications until you see your primary care provider tomorrow if you feel weak, lightheaded or start having sweats check your sugar and if it is below 70 try to eat something or drink juice if you feel more ill, have fevers or difficulty breathing return to the emergency department Medical Decision Making <Miroslava Mccarty DO - Last Filed: 02/27/21 19:33> 60-year-old female with a history of morbid obesity, diabetes, hypertension, [place], hepatitis C presents for intermittent episodes of hypoglycemia for the past 2 days. Glucose 62 prior to arrival when she felt dizzy and sweaty. She ate Snickers bar and hot dogs and her sugar increased to 127. She feels slightly better at this time. Denies any recent illness. Has not taken her insulin since yesterday morning. No focal deficits on exam. She appears comfortable and nontoxic. Will place an IV, obtain screening labs, urinalysis, chest x-ray and EKG. We will continue to monitor and recheck blood sugar. If several readings remain within normal limits, can consider discharge to home. If she has continued hypoglycemia, will admit for observation and continued monitoring overnight. Case endorsed Dr. Preston to follow-up on labs and final disposition Medical Records Medical records reviewed: Yes I reviewed the patient's medical records. <Shda Preston MD - Last Filed: 02/27/21 21:04> pt asymptomatic, repeat blood sugar 120 and labs unremarkable, remains stable without symptoms now and eating normally. She feels well enough for d/c and given stable sugar here feel this is reasonable. I did recommend holding her insulin until she sees her pcp tomorrow as scheduled. Return precautions given Imaging Data Radiologic Study: Attestation: I personally reviewed and interpreted this imaging study as follows: Imaging: X-Ray Radiologist's impression: no acute findings Lab Data Lab results reviewed: Yes I reviewed the patient's lab results. ECG Data Attestation: I personally reviewed and interpreted this ECG (s) as follows: Prior ECG tracings: not available for review Interpretation: sinus rhythm, rate of 68, no acute st t wave ischemic findings HPI <Miroslava Mccarty DO - Last Filed: 02/27/21 19:33> General Mode of arrival: ambulatory . Date/Time Provider Initiated Documentation: 02/27/21 18:52 . Limitations to Documentation: no limitations . Information obtained by: patient . HPI Narrative: Pt is a 60yo F who presents to the ED w/ intermittent episodes of low blood sugar since Sunday. Her lowest reading today was just prior to arrival was 62. Patient states she was at [employer] prior to arrival when she felt dizzy and sweaty. She states she checked her blood sugar and it was 62. She states she has had intermittent readings in the 70s over the past 2 days. She denies any recent fever, recent illness, nausea, vomiting, diarrhea, headache, chest pain, shortness of breath, coughing, urinary symptoms, rash, recent travel, known tick bite or known sick contacts. She denies any change in her medications. She states she usually takes her Tresiba insulin twice daily and her NovoLog on a sliding scale insulin. She states she has not taken any insulin since yesterday. She states she has been eating normally today and just prior to arrival after her low blood sugar reading she ate two hotdogs, Snickers bar and soda. Related Data Home Medications Medication Instructions Recorded Confirmed albuterol sulfate 1.25 mg/3 mL 1.25 mg IH QID PRN #120 ml 07/03/18 02/27/21 solution for nebulization lancets 33 gauge #180 ea 09/26/19 08/05/20 aspirin 81 mg tablet,delayed 81 mg PO DAILY 12/26/19 02/27/21 release omeprazole 40 mg capsule,delayed 40 mg PO DAILY #90 tab-cap 07/07/20 02/27/21 release lisinopril 20 mg tablet 20 mg PO DAILY #90 tab-cap 07/16/20 02/27/21 paroxetine HCl 20 mg tablet 20 mg PO DAILY #90 tab 07/16/20 02/27/21 flash glucose scanning reader #1 ea 07/22/20 08/05/20 flash glucose sensor #2 ea 07/22/20 08/05/20 blood sugar diagnostic #100 ea 07/27/20 08/05/20 pen needle, diabetic 31 gauge x #100 each 10/01/20 10/01/2009/21 meclizine 25 mg tablet 25 mg PO DAILY #90 tab-cap 12/24/20 02/27/21 insulin degludec 200 unit/mL (3 See Rx Instructions SUBCUT BID #18 01/27/21 02/27/21 mL) subcutaneous pen ml pregabalin 150 mg capsule 150 mg PO BID #180 cap 01/27/21 02/27/21 albuterol sulfate 90 mcg/actuation 2 puff INHALATION Q4H PRN #1 puff 02/15/21 02/27/21 aerosol inhaler Previous Rx's Medication Instructions Recorded albuterol sulfate 1.25 mg/3 mL 1.25 mg IH QID PRN #120 ml 07/03/18 solution for nebulization lancets 33 gauge #180 ea 09/26/19 omeprazole 40 mg capsule,delayed 40 mg PO DAILY #90 tab-cap 07/07/20 release lisinopril 20 mg tablet 20 mg PO DAILY #90 tab-cap 07/16/20 paroxetine HCl 20 mg tablet 20 mg PO DAILY #90 tab 07/16/20 flash glucose scanning reader #1 ea 07/22/20 flash glucose sensor #2 ea 07/22/20 blood sugar diagnostic #100 ea 07/27/20 pen needle, diabetic 31 gauge x #100 each 10/01/2009/21 meclizine 25 mg tablet 25 mg PO DAILY #90 tab-cap 12/24/20 insulin degludec 200 unit/mL (3 See Rx Instructions SUBCUT BID #18 01/27/21 mL) subcutaneous pen ml pregabalin 150 mg capsule 150 mg PO BID #180 cap 01/27/21 albuterol sulfate 90 mcg/actuation 2 puff INHALATION Q4H PRN #1 puff 02/15/21 aerosol inhaler Allergies Allergy/AdvReac Type Severity Reaction Status Date / Time fluoxetine HCl [From Prozac] Allergy Intermediate rash Verified 02/27/21 19:01 metformin AdvReac Severe diarrhea Verified 02/27/21 19:01 rofecoxib [From Vioxx] AdvReac Severe bleeding Verified 02/27/21 19:01 aspirin AdvReac Intermediate GI Upset Verified 02/27/21 19:01 celecoxib [From Celebrex] AdvReac Intermediate GI Upset Verified 02/27/21 19:01 naproxen AdvReac Intermediate Stomach Verified 02/27/21 19:01 intolerance General HOSSEIN: 4 Review of Systems <Miroslava Mccarty DO - Last Filed: 02/27/21 19:33> All systems reviewed & are unremarkable except as noted in HPI and below Constitutional Constitutional: Reports as per HPI, Denies chills and Denies fever(s) Eyes Eyes: Denies blurry vision ENT Ears, Nose, Mouth, and Throat: Reports dizziness, Denies sore throat and Denies throat swelling Cardiovascular Cardiovascular: Denies chest pain and Denies dyspnea Respiratory Respiratory: Denies cough and Denies dyspnea Gastrointestinal Gastrointestinal: Denies abdominal pain, Denies diarrhea and Denies vomiting Genitourinary Genitourinary: Denies hematuria and Denies dysuria Musculoskeletal Musculoskeletal: Denies back pain and Denies numbness Integumentary/Breasts Skin/Breast: Denies lesions and Denies rash Neurologic Neurologic: Reports dizziness, Denies localized weakness and Denies numbness Allergic/Immunologic Allergic/Immunologic: Denies throat swelling PFSH <Miroslava Mccarty DO - Last Filed: 02/27/21 19:33> Medical History (Updated 02/27/21 @ 19:33 by Miroslava Mccarty DO) Asthma Diagnosed in [address] [facility] testing 2000; head CT 10/06/02 & 03/05/06; HAD IN PAST; AGAIN 02/2012; again 08/08/13 to L Chronic airway obstruction (06/05/14) exacerbation 03/2014 [facility]; FEV1 1.6 (58& pred; 62% FVC) no response to bronchodilators Chronic hepatitis (05/09/93) Depressive disorder Intermittent. Essential hypertension Ex-smoker for more than 1 year Gastro-esophageal reflux disease without esophagitis (08/25/11) responds to PPI, unable to stop 02/2017 Hepatitis C Hyperlipidemia Hypertriglyceridemia Liver cirrhosis Myofascial muscle pain Nonalcoholic steatohepatitis ([place]) [facility] [place]. Obesity Osteoarthritis of knee Polyarthritis Postmenopausal disorder Ongoing hot flashes. Serous otitis media Type 2 diabetes mellitus with hyperglycemia (10/12/15) 03/2014 hospital A1C 7%; goal A1c<7.5 Surgical History section x3 COLONOSCOPY W/ BX (10/10/17) elbow surg x2 ganglion wrist cyst removal x2 History of laryngoscopy 04/10/19 transnasal laryngoscopy salivary gland (02/23/17) [facility] [place], left submental UGI W/ BX (10/10/17) [facility] [place] Family History (Updated 10/01/20 @ 10:54 by Marie Hyatt RN) Father Heart disease Sister COPD (chronic obstructive pulmonary disease) Obese Brother Diabetes Essential hypertension Asthma Heart disease Hypertension Brother COPD (chronic obstructive pulmonary disease) Brother Alcohol abuse Brother Neoplasm non hodgkins lymphoma Mother COPD (chronic obstructive pulmonary disease) Asthma Heart disease Hypertension Social History (Updated 10/01/20 @ 11:53 by Marie Hyatt RN) Smoking/Tobacco Use Status: Former Tobacco Use tobacco type: cigarettes Quit Date: 08/09/19 Pack-years: 10 Tobacco: How many years used: 10 Second Hand Exposure: No Smoking risk assessment performed?: Yes Alcohol Intake: former Drug use: Never Substance use type: does not use Adopted: No Foster care: No Household members: family and other Details: mother Housing: house Number of Children: 3 Communication Needs: Corrective Lenses Do you need help understanding health information?: Rarely current occupation: [employer] Pets and animals: Yes Pets and animals: cat(s), dog(s) and bird(s) Sexually active: No Do you think of yourself as: straight/heterosexual Current gender identity: female What is your relationship status?: How often do you talk on the phone with friends or family?: three or more times per week How often do you get together with friends or relatives?: decline to answer How often do you attend restoration or buddhist services?: 1-3 times per year Panel score (0-1 are the most socially isolated patients): 1 What type of physical activity do you participate in: none Meg/Restorationism: None Special meg needs: No Seatbelt use: always Helmet use: Yes Helmet use: other Details: N/A Drive intox or ride w/intox dumpcart driver: No Working smoke detector in home: Yes Fire extinguisher in home: Yes Carbon monox detector in home: Yes Do you feel safe at home: Yes Do you feel safe in your relationship?: Yes Exam <Miroslava Mccarty DO - Last Filed: 02/27/21 19:33> Const General: cooperative and no acute distress HENMT Head: normal to inspection Face and sinus: normal facial exam Eyes General: appearance normal, both eyes and all related structures EOM: EOM intact bilaterally Neck Neck: normal visual inspection and No submandibular swelling Lymphatic: no lymphadenopathy noted Chest Chest: normal inspection of the chest and no tenderness Resp Effort & Inspection: normal respiratory effort and able to speak in complete sentences Auscultation: clear to auscultation bilaterally Cardio Rate: regular rate Rhythm: regular rhythm GI Inspection: normal to inspection Palpation: soft, not firm, not rigid and nontender Auscultation: normal bowel sounds Skin General skin exam: no rashes or lesions noted Neuro General: patient alert, patient awake, patient oriented x3, moves all extremities, no meningeal signs and no focal motor deficits Cranial Nerves: CN's II-XI intact bilaterally Cognition: normal cognition Speech: speech normal Motor: muscle tone normal throughout and strength 5/5 throughout Sensory Exam: no sensory deficits noted Extrem General: normal to inspection, full ROM, capillary refill normal, no calf tenderness bilaterally and no edema Psych Appearance: grossly normal Mental Status: mental status grossly normal Speech and Movement: speech and movement normal Affect: normal affect Sign Out <Miroslava Mccarty DO - Last Filed: 02/27/21 19:33> Sign Out Data: Sign Out Comment: Follow-up on labs and imaging and final disposition. If patient feels better and has several readings of normal blood sugar, can consider discharge to home. If patient remains hypoglycemic, consider admission overnight for observation and glucose monitoring. Last updated by Miroslava Mccarty DO at 02/27/21 19:35
[2021-02-27 18:57] VITALS: BP 151/86; PULSE 75; RESP 20; TEMP 36.2; O2SAT 93
--- NOTE | 2021-02-27 19:15 | DI.RAD_ITS ---
Exam(s) XR CHEST 2V PA LATERAL EXAM: XR CHEST 2V PA LATERAL CLINICAL HISTORY: dizziness, low blood sugar, r/o acute disease. TECHNIQUE: 2D digital imaging was performed. COMPARISON: CR CHEST 2 VIEWS PA,LAT from 09/17/2017 FINDINGS: Heart size is normal. The mediastinum is not widened. Lungs are clear. No infiltrates nor pleural effusions. IMPRESSION: No acute pulmonary findings. DATA REPOSITORY: RADIATION DOSE DELIVERED:
--- NOTE | 2021-02-27 19:15 | RT.EKG_ITS ---
APPROVED REPORT Exam: Resting ECG Reason for Exam: dizziness Patient Location: E HR:68 bpm ECG Measurements Heart Rate 68 AXIS CO 205 P 18 QRSd 81 QRS 41 QT 398 T 69 QTc 423 Conclusion Sinus rhythm...normal P axis, V-rate 60- 99 Low voltage, extremity and precordial leads...extremity<0.5mV, precordial<1.0mV Consider anteroseptal infarct...Q >30mS, dimin R, V1-V2
[2021-02-27 19:40] LABS: Bilirubin Negative (Negative); Blood Negative (Negative); Clarity Clear (Clear); Glucose 500 mg/dL (Negative); Ketones Negative (Negative); Leukocyte Esterase Negative (Negative); Nitrite Negative (Negative); Urobilinogen 0.2 EU/dL (Up TO 0.2)
--- NOTE | 2021-02-27 20:04 | DI.VRAD_ITS ---
PROCEDURE INFORMATION: Exam: XR Chest Exam date and time: 02/27/2021 7:23 PM Age: 60 years old Clinical indication: Other: Low blood sugar/dizziness; Patient HX: Dizziness, low blood sugar, R/O acute disease TECHNIQUE: Imaging protocol: XR of the chest. Views: 2 views. Total images: 2 COMPARISON: CT CHEST LUNG CANCER SCREEN 10/14/2020 7:52 AM FINDINGS: Lungs: Lungs are clear without consolidation. Pulmonary anamaria: Unremarkable contours. Pleural spaces: No pleural effusion. No pneumothorax. Heart/Mediastinum: Unremarkable contours. No cardiomegaly. Bones/joints: Unremarkable. Intraperitoneal space: Visualized upper abdomen is unremarkable. IMPRESSION: No acute findings. Dictated and Authenticated by: Arthur Harper MD. Ordering:AMI [place] MD
[2021-02-27 20:08] LABS: Abs Immature Grans 0.02 10^3/uL (0.0-0.06); Absolute Basophil Count 0.05 10^3/uL (0.0-0.2); Absolute Eosinophil Count 0.16 10^3/uL (0.0-0.7); Absolute Lymphocyte Count 1.93 10^3/uL (1.2-3.4); Absolute Monocyte Count 0.48 10^3/uL (0.1-0.8); Absolute Neutrophil Count 4.25 10^3/uL (1.2-6.7); Basophils % 0.7; Eosinophils % 2.3; HCT 44.8 % (36.0-46.0); HGB 14.2 g/dL (11.2-15.7); Immature Grans % 0.3; MCH 28.9 pg (27.0-33.0); MCHC 31.7 % (32.0-36.0); MCV 91.2 fL (80-95); MPV 10.7 fL (8.0-11.0); Neutrophils % 61.7; Nucleated RBC 0 %; Platelet Count 150 10^3/uL (130-400); RBC 4.91 10^6/uL (3.93-5.22); RDW 13.8 % (11.7-14.6); RDW-SD 46.8 fL; WBC 6.89 10^3/uL (4.4-10.8)
[2021-02-27 20:11] VITALS: BP 155/67; PULSE 70; RESP 16; TEMP 36.4; O2SAT 94
[2021-02-27 20:21] LABS: ALT 35 U/L (14-59); AST 26 U/L (15-37); Albumin 3.8 g/dL (3.4-5.0); Alkaline Phosphatase 103 U/L (46-116); Anion Gap 4.8 mmol/L (3-11); BUN 14 mg/dL (7-18); Bilirubin, Total 0.4 mg/dL (0.2-1.0); CO2 32.2 mmol/L (21.0-32.0); CREATININE 1.1 mg/dL (0.55-1.02); Calcium 8.7 mg/dL (8.5-10.1); Chloride 105 mmol/L (98-107); Glucose 162 mg/dL (74-106); Potassium 4.1 mmol/L (3.5-5.1); Sodium 142 mmol/L (136-145); Total Protein 7.3 g/dL (6.4-8.2)
--- NOTE | 2021-02-27 20:25 | NUR.NOTE ---
Nursing Note: Patient care assumed from Dayshift RN's. Patient given water and a turkey sandwich.
[2021-02-27 20:30] LABS: NT-proBNP 63 pg/mL (<300)
[2021-02-27 21:11] VITALS: BP 135/85; PULSE 78; RESP 16; O2SAT 97
== END 2021-02-27 21:10 | disposition home or self-care (01) ==
PROVIDERS: Physician Assistant; Emergency Provider Emergency Medicine; PCP Family Medicine
DX: E11.649 Type 2 diabetes mellitus with hypoglycemia without coma (principal); Z79.4 Long term (current) use of insulin
CPT/HCPCS: 36416; 80053; 82962; 93005; 99284; 71046; 81003; 83880; 85025; 93010

== ENCOUNTER 2021-03-21 13:05 | Outpatient (REF) | payer MEDICAID, SELFPAY ==
[2021-03-21 21:22] LABS: Abs Immature Grans 0.02 10^3/uL (0.0-0.06); Absolute Basophil Count 0.04 10^3/uL (0.0-0.2); Absolute Eosinophil Count 0.17 10^3/uL (0.0-0.7); Absolute Lymphocyte Count 1.92 10^3/uL (1.2-3.4); Absolute Monocyte Count 0.36 10^3/uL (0.1-0.8); Absolute Neutrophil Count 3.94 10^3/uL (1.2-6.7); Basophils % 0.6; ESR 24 mm/hr (0-30); Eosinophils % 2.6; HCT 45.4 % (36.0-46.0); HGB 14.6 g/dL (11.2-15.7); Immature Grans % 0.3; Lymphocytes % 29.8; MCH 28.5 pg (27.0-33.0); MCHC 32.2 % (32.0-36.0); MCV 88.7 fL (80-95); MPV 11.7 fL (8.0-11.0); Monocytes % 5.6; Neutrophils % 61.1; Nucleated RBC 0 %; Platelet Count 147 10^3/uL (130-400); RBC 5.12 10^6/uL (3.93-5.22); RDW 13.8 % (11.7-14.6); RDW-SD 44.6 fL; WBC 6.45 10^3/uL (4.4-10.8)
[2021-03-21 21:40] LABS: ALT 35 U/L (14-59); AST 27 U/L (15-37); Albumin 3.8 g/dL (3.4-5.0); Alkaline Phosphatase 104 U/L (46-116); Anion Gap 6.7 mmol/L (3-11); BUN 12 mg/dL (7-18); Bilirubin, Total 0.4 mg/dL (0.2-1.0); C-Reactive Protein 0.83 mg/dL (0.0-0.3); CO2 31.3 mmol/L (21.0-32.0); CREATININE 0.8 mg/dL (0.55-1.02); Calcium 8.8 mg/dL (8.5-10.1); Chloride 106 mmol/L (98-107); Glucose 175 mg/dL (74-106); Potassium 4.1 mmol/L (3.5-5.1); Sodium 144 mmol/L (136-145); Total Protein 7.2 g/dL (6.4-8.2)
[2021-03-21 22:03] LABS: TSH (W/Ref FT4) 2.01 uIU/mL (0.36-3.74)
[2021-03-23 13:37] LABS: COVID-19 RT-PCR UVMMC Result Negative (Negative)
== END 2021-03-21 13:06 | disposition home or self-care (01) ==
LOC: LBN 13:05
PROVIDERS: PCP Family Medicine; Visit Provider Nurse Practitioner Family
DX: E04.1 Nontoxic single thyroid nodule (principal); N28.9 Disorder of kidney and ureter, unspecified; M25.59 Pain in other specified joint; Z20.822 Contact with and (suspected) exposure to COVID-19
CPT/HCPCS: 80053; 85652; U0003; 84443; 85025; 86140

== ENCOUNTER 2021-04-25 20:05 | Inpatient (IN) | payer MEDICAID, SELFPAY ==
[2021-04-25] VITALS (33 sets, daily range): BP systolic 110–142; BP diastolic 63–107; PULSE 78–102; RESP 11–28; TEMP 36.1; O2SAT 86–97
--- NOTE | 2021-04-25 20:00 | RT.EKG_ITS ---
APPROVED REPORT Exam: Resting ECG Reason for Exam: short of breath Patient Location: E HR:97 bpm ECG Measurements Heart Rate 97 AXIS MT 156 P 55 QRSd 79 QRS 31 QT 340 T 56 QTc 432 Conclusion Sinus rhythm...normal P axis, V-rate 60- 99 Low voltage, extremity and precordial leads...extremity<0.5mV, precordial<1.0mV
--- NOTE | 2021-04-25 20:15 | DI.RAD_ITS ---
Exam(s) XR PORTABLE CHEST AP EXAM: XR PORTABLE CHEST AP CLINICAL HISTORY: SOB, cough TECHNIQUE: 2D digital imaging was performed of the chest. One image was obtained. An AP view was ob tained. COMPARISON: CR,XR XR CHEST 2V PA LATERAL from 02/27/2021 FINDINGS: MEDIASTINUM: Normal. HEART: Normal. PULMONARY VASCULATURE: Normal. LUNGS: There is a focal consolidation in the left lower lobe. Mild prominent diffuse interstitial osiel ng markings which may be chronic. Acute interstitial edema or pneumonia cannot be excluded. PLEURAL SPACE: No pleural effusion or pneumothorax. BONE:Within normal limits for the patient's age. OTHER FINDINGS:Normal. IMPRESSION: Left lower lobe pneumonia. DATA REPOSITORY: RADIATION DOSE DELIVERED:
[2021-04-25] MEDS: Acetaminophen 500 MG TAB 1000 MG PO (20:38)
[2021-04-25 20:39] LABS: Source Nasal/Nares
[2021-04-25 20:43] LABS: HCT 44.9 % (36.0-46.0); HGB 14.3 g/dL (11.2-15.7); MCHC 31.8 % (32.0-36.0); MCV 87.9 fL (80-95); MPV 10.5 fL (8.0-11.0); Nucleated RBC 0 %; Platelet Count 257 10^3/uL (130-400); RBC 5.11 10^6/uL (3.93-5.22); RDW 15.2 % (11.7-14.6); RDW-SD 48.7 fL; WBC 8.69 10^3/uL (4.4-10.8)
--- NOTE | 2021-04-25 21:15 | DI.CT_ITS ---
Exam(s) CT CHEST PE CTA EXAM: CT CHEST PE CTA CLINICAL HISTORY: hypoxic, +d-dimer. TECHNIQUE: Imaging Protocol: Axial CT angiography was performed with multi-slice acquisition and mu lti-planar and/or 3D reconstructions. CONTRAST MATERIAL: Intravenous: Omnipaque 350 Contrast volume:100 mL COMPARISON: CT CT CHEST LUNG CANCER SCREEN from 10/14/[address] CHEST LUNG CANCER SCREEN from 10/14/2020 FINDINGS: Tracheobronchial tree: Patent where visualized. Pulmonary parenchyma: Multifocal infiltrate is seen. There predominantly ground-glass with areas of consolidation in the lower lobes. Mild emphysematous changes are present in the lungs. The previous ly noted 2 mm right upper lobe pulmonary nodule appears to be obscured by the pulmonary infiltrates. No pulmonary nodules are appreciated. Pulmonary Arteries: No evidence of filling defect to suggest pulmonary emboli. Mediastinum and [place]: There are enlarged mediastinal and hilar lymph nodes present. There is a 2 x 2 .3 cm right hilar lymph node. There is a 1.8 x 1.4 cm left hilar lymph node. Visualized thyroid gland: Unremarkable. Pleura: No effusion or pneumothorax. Heart: The heart is not dilated. No coronary artery calcifications are seen. No pericardial effusion. Aorta: Thoracic aorta non-dilated. No evidence of dissection. Mild atherosclerosis. Upper abdomen: Mild splenomegaly. Soft tissues: Unremarkable. Bones: Within normal limits for the patient's age. IMPRESSION: 1. No evidence of pulmonary embolism, thoracic aortic dissection or aneurysm. 2. Multifocal bilateral pulmonary infiltrates consistent with pneumonia. The findings would be consi stent with a COVID-19 infection. 3. Bilateral mediastinal and hilar lymph node enlargement. RADIATION DOSE DELIVERED: 613.99mGy.cm Total DLP DATA REPOSITORY: All CT scans at this facility are submitted to the National Radiology Data Registry (NRDR) Dose Index Registry (DIR) with the [employer] (ACR). RADIATION OPTIMIZATION: All CT scans at this facility use at least one of these dose optimization te chniques: automated exposure control; mA and/or kV adjustment per patient size (includes targeted exa ms where dose is matched to clinical indication); or iterative reconstruction.
[2021-04-25 21:17] LABS: ALT 31 U/L (14-59); AST 39 U/L (15-37); Albumin 3.6 g/dL (3.4-5.0); Alkaline Phosphatase 72 U/L (46-116); Anion Gap 12.6 mmol/L (3-11); BUN 21 mg/dL (7-18); Bilirubin, Total 0.8 mg/dL (0.2-1.0); CO2 28.4 mmol/L (21.0-32.0); Calcium 9.4 mg/dL (8.5-10.1); Chloride 99 mmol/L (98-107); Estimated GFR 56.37 (mL/min/1.73m2); Glucose 198 mg/dL (74-106); Potassium 3.6 mmol/L (3.5-5.1); Sodium 140 mmol/L (136-145); Total Protein 8.5 g/dL (6.4-8.2); Troponin I < 0.05 ng/mL (<0.06)
[2021-04-25 21:23] LABS: D-Dimer 641 ng/mlFEU (<500)
[2021-04-25 21:30] LABS: Absolute Lymphocyte Count 2.35 10^3/uL (1.2-3.4); Absolute Neutrophil Count 6.08 10^3/uL (1.2-6.7); Atypical Lymphocytes % 2
[2021-04-25 21:31] LABS: Absolute Eosinophil Count 0.09 10^3/uL (0.0-0.7); Absolute Monocyte Count 0.17 10^3/uL (0.1-0.8); Diff Comment Manual Differential; RBC Morphology Normal
[2021-04-25] MEDS: Normal Saline 1,000 ML 150 ML IV (21:47)
--- NOTE | 2021-04-25 21:53 | W.ED.GENAD ---
Discharge Plan Discharge Details Chief Complaint: RespSymp Admit Date/Time: 04/25/21 23:08 Admit Provider: Max Riggs Attending Provider: Max Riggs Primary Care Provider: Hai Lopez ED Provider: Laura Lloyd Discharge Data Discharge Date/Time-TO BE ENTERED AT DEPARTURE: 04/26/21 00:43 Medical Decision Making Patient is a pleasant 60-year-old female presents today with chief complaint of fatigue and general unwell x1 week. States that yesterday she began having increased cough, shortness of breath. States she has had chills at home. Denies any GI upset. Denies any chest pain. Reports that she has lost taste and smell. Past medical history is pertinent for hyperlipidemia, obesity, GERD, asthma, type 2 diabetes, hypertension. Patient not been vaccinated against COVID-19. 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 On exam, patient appears short of breath. She is initially hypoxic with an O2 in the 80s. Came up to the mid 90s on 2 L nasal cannula. Area slightly elevated at 98. She is hypertensive. Lungs are clear. Patient is slightly tachypneic. She is able to speak in full sentences at this time. Cardiac auscultation is normal. Abdomen benign. 2+ pulses in all extremities, calves are soft and nontender, no lower extremity edema. Her history and exam has been most concerning for COVID-19. Also considered complications of such including pulmonary embolism.. Will obtain baseline labs to include a D-dimer. Will test for COVID-19. She is not endorsing chest pain at this time but consider ACS with her shortness of breath. Will obtain portable x-ray to evaluate for potential pneumonia. EKG was obtained and reviewed by Dr. Preston. Patient is in a normal sinus rhythm with a rate of 97. No acute ischemic changes noted. Chest x-ray read by radiologist FINDINGS: Lungs: Diffuse bilateral pulmonary abnormality. Focal consolidation of the left lower lobe concerning for an acute infiltrate. Increase interstitial markings are seen otherwise in both the right and left lung. This could represent interstitial edema. This could represent chronic underlying interstitial disease. Increase interstitial septal markings bilaterally may represent minor interstitial edema. Possibility of chronic underlying interstitial disease. Pleural spaces: No dat pleural effusion. Heart/Mediastinum: Normal heart size. Bones/joints: Degenerative thoracic spine disease. Degenerative thoracic spine disease. IMPRESSION: 1. Acute left lower lobe infiltrate is noted. 2. Increased interstitial lung markings bilaterally. Cannot exclude an underlying component of interstitial edema versus chronic interstitial disease. Labs reviewed. No leukocytosis. Stable H&H. D-dimer elevated 641, will move forward with to for PE protocol. CMP has significant abnormality. Troponin within normal limits. Patient Covid positive. Discussed the findings with the patient. Patient discussed risk/benefits of dexamethasone and remdesivir. Stressed understanding and would like to proceed with these infusions. We will continue to move forward with CT for PE protocol. Patient will require admission as she continues to liters nasal cannula for adequate oxygenation. CT for PE protocol reviewed by radiologist: FINDINGS: Pulmonary arteries: Pulmonary arteries well opacified. No pulmonary arterial embolism evident. Aorta: Thoracic aorta is normal in course and caliber. Lungs: Bilateral peripheral lung subpleural infiltrative changes. Predominantly in interstitial ground-glass type appearance consistent with diagnosis of COVID-19 pneumonitis. These features are new since 10/14/2020. This is [id number] in severity. Pleural spaces: No pleural effusion. Heart: Normal heart size. No pericardial effusion. Lymph nodes: Enlarged bilateral hilar and mediastinal lymph nodes. Largest lymph node is right hilar measuring 2.5 x 1.7 cm. Spleen: Mild splenomegaly. Bones/joints: Degenerative thoracic spine features. No acute fracture. Soft tissues: Unremarkable. IMPRESSION: 1. Bilateral pneumonitis pattern. Recommend correlation for COVID-19 pneumonia. Imaging appearance is consistent. 2. No pulmonary arterial embolism evident. 3. No pleural effusion or pericardial effusion. 4. Mild bilateral hilar and mediastinal lymph node enlargement. Discussed findings with the patient. Advised admission for her hypoxia and COVID-19. She is in agreement this plan. Consulted hospitalist who agrees to admission. Patient remains hemodynamically stable, still on 2 L nasal cannula. HPI General Mode of arrival: ambulatory. Date/Time Provider Initiated Documentation: 04/25/21 20:07. Limitations to Documentation: no limitations. Information obtained by: patient and RN notes reviewed. History of Present Illness 60 year old F presents to the emergency department with the chief complaint of cough, SOB, fatigue, described as mild (patient denies any pain), and is localized to the chest (SOB). Patient reports no radiation. Patient started experiencing this week(s) (fatigue began 1 week ago) and it has been constant. Rest improves symptom(s), Movement worsens symptoms . Patient notes cough, fever/chills, loss of appetite and shortness of breath; denies chest pain, nausea/vomiting, rash and syncope. Patient did receive the following treatments prior to arrival, none Related Data Home Medications Medication Instructions Recorded Confirmed albuterol sulfate 1.25 mg/3 mL 1.25 mg IH QID PRN #120 ml 07/03/18 04/25/21 solution for nebulization lancets 33 gauge #180 ea 09/26/19 03/25/21 aspirin 81 mg tablet,delayed 81 mg PO DAILY 12/26/19 04/25/21 release omeprazole 40 mg capsule,delayed 40 mg PO DAILY #90 tab-cap 07/07/20 04/25/21 release lisinopril 20 mg tablet 20 mg PO DAILY #90 tab-cap 07/16/20 04/25/21 paroxetine HCl 20 mg tablet 20 mg PO DAILY #90 tab 07/16/20 04/25/21 flash glucose scanning reader #1 ea 07/22/20 03/25/21 blood sugar diagnostic #100 ea 07/27/20 03/25/21 pen needle, diabetic 31 gauge x #100 each 10/01/20 03/25/2109/21 meclizine 25 mg tablet 25 mg PO DAILY #90 tab-cap 12/24/20 04/25/21 pregabalin 150 mg capsule 150 mg PO BID #180 cap 01/27/21 04/25/21 albuterol sulfate 90 mcg/actuation 2 puff INHALATION Q4H PRN #1 puff 02/15/21 04/25/21 aerosol inhaler empagliflozin 25 mg tablet 25 mg PO DAILY #90 tab 02/28/21 04/25/21 insulin degludec 200 unit/mL (3 See Rx Instructions SUBCUT BID #18 02/28/21 04/25/21 mL) subcutaneous pen ml insulin lispro 100 unit/mL See Rx Instructions SC BID #15 ml 02/28/21 04/25/21 subcutaneous pen flash glucose sensor #2 ea 03/24/21 03/25/21 Previous Rx's Medication Instructions Recorded albuterol sulfate 1.25 mg/3 mL 1.25 mg IH QID PRN #120 ml 07/03/18 solution for nebulization lancets 33 gauge #180 ea 09/26/19 omeprazole 40 mg capsule,delayed 40 mg PO DAILY #90 tab-cap 07/07/20 release lisinopril 20 mg tablet 20 mg PO DAILY #90 tab-cap 07/16/20 paroxetine HCl 20 mg tablet 20 mg PO DAILY #90 tab 07/16/20 flash glucose scanning reader #1 ea 07/22/20 blood sugar diagnostic #100 ea 07/27/20 pen needle, diabetic 31 gauge x #100 each 10/01/2009/21 meclizine 25 mg tablet 25 mg PO DAILY #90 tab-cap 12/24/20 pregabalin 150 mg capsule 150 mg PO BID #180 cap 01/27/21 albuterol sulfate 90 mcg/actuation 2 puff INHALATION Q4H PRN #1 puff 02/15/21 aerosol inhaler empagliflozin 25 mg tablet 25 mg PO DAILY #90 tab 02/28/21 insulin degludec 200 unit/mL (3 See Rx Instructions SUBCUT BID #18 02/28/21 mL) subcutaneous pen ml insulin lispro 100 unit/mL See Rx Instructions SC BID #15 ml 02/28/21 subcutaneous pen flash glucose sensor #2 ea 03/24/21 Allergies Allergy/AdvReac Type Severity Reaction Status Date / Time fluoxetine HCl [From Prozac] Allergy Intermediate rash Verified 04/25/21 20:18 metformin AdvReac Severe diarrhea Verified 04/25/21 20:18 rofecoxib [From Vioxx] AdvReac Severe bleeding Verified 04/25/21 20:18 aspirin AdvReac Intermediate GI Upset Verified 04/25/21 20:18 celecoxib [From Celebrex] AdvReac Intermediate GI Upset Verified 04/25/21 20:18 naproxen AdvReac Intermediate Stomach Verified 04/25/21 20:18 intolerance General Stated Complaint: RespSymp HOSSEIN: 2 Review of Systems Constitutional Constitutional: Reports as per HPI, Reports chills, Reports fatigue, Denies fever(s), Denies headache(s) and Reports weakness (reports generalized weakness and fatigue) Eyes Eyes: Reports as per HPI, Denies eye discharge and Denies irritation ENT Ears, Nose, Mouth, and Throat: Reports as per HPI and Denies headache(s) Cardiovascular Cardiovascular: Reports as per HPI, Denies chest pain, Reports lightheadedness, Reports dyspnea and Reports dyspnea on exertion Respiratory Respiratory: Reports as per HPI, Denies chest congestion, Reports cough, Denies hemoptysis, Reports dyspnea and Reports dyspnea on exertion Gastrointestinal Gastrointestinal: Reports as per HPI, Denies abdominal pain, Denies change in bowel habits, Denies nausea and Denies vomiting Integumentary/Breasts Skin/Breast: Reports as per HPI and Denies rash Neurologic Neurologic: Reports as per HPI, Denies headache(s) and Reports weakness (reports generalized weakness and fatigue) Endocrine Endocrine: Reports fatigue [facility] Medical History Asthma Diagnosed in [address] Marshall testing 2000; head CT 10/06/02 & 03/05/06; HAD IN PAST; AGAIN 02/2012; again 08/08/13 to L Chronic airway obstruction (06/05/14) exacerbation 03/2014 [facility]; FEV1 1.6 (58& pred; 62% FVC) no response to bronchodilators Chronic hepatitis (05/09/93) Depressive disorder Intermittent. Essential hypertension Ex-smoker for more than 1 year Gastro-esophageal reflux disease without esophagitis (08/25/11) responds to PPI, unable to stop 02/2017 Hepatitis C Hyperlipidemia Hypertriglyceridemia Liver cirrhosis Myofascial muscle pain Nonalcoholic steatohepatitis (BUI) [facility] [place] 02/20/19. Obesity Osteoarthritis of knee Polyarthritis Postmenopausal disorder Ongoing hot flashes. Serous otitis media Type 2 diabetes mellitus with hyperglycemia (10/12/15) 03/2014 hospital A1C 7%; goal A1c<7.5 Surgical History section x3 COLONOSCOPY W/ BX (10/10/17) elbow surg x2 ganglion wrist cyst removal x2 History of laryngoscopy 04/10/19 transnasal laryngoscopy salivary gland (02/23/17) [facility] [place], left submental UGI W/ BX (10/10/17) [facility] [place] Family History Father Heart disease Sister COPD (chronic obstructive pulmonary disease) Obese Brother Diabetes Essential hypertension Asthma Heart disease Hypertension Brother COPD (chronic obstructive pulmonary disease) Brother Alcohol abuse Brother Neoplasm non hodgkins lymphoma Mother COPD (chronic obstructive pulmonary disease) Asthma Heart disease Hypertension Social History Smoking/Tobacco Use Status: Former Tobacco Use tobacco type: cigarettes Quit Date: 08/09/19 Pack-years: 10 Tobacco: How many years used: 10 Second Hand Exposure: No Smoking risk assessment performed?: Yes Alcohol Intake: former Drug use: Never Substance use type: does not use Adopted: No Foster care: No Household members: family and other Details: mother Housing: house Number of Children: 3 Communication Needs: Corrective Lenses Do you need help understanding health information?: Rarely 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 Pets and animals: Yes Pets and animals: cat(s), dog(s) and bird(s) Sexually active: No Do you think of yourself as: straight/heterosexual Current gender identity: female What is your relationship status?: How often do you talk on the phone with friends or family?: three or more times per week How often do you get together with friends or relatives?: decline to answer How often do you attend mormon or hoahaoism services?: 1-3 times per year Panel score (0-1 are the most socially isolated patients): 1 What type of physical activity do you participate in: none Meg/Christianity: None Special meg needs: No Seatbelt use: always Helmet use: Yes Helmet use: other Details: N/A Drive intox or ride w/intox six horse hitch driver: No Working smoke detector in home: Yes Fire extinguisher in home: Yes Carbon monox detector in home: Yes Do you feel safe at home: Yes Do you feel safe in your relationship?: Yes Exam Const General: cooperative, comfortable, no acute distress, well developed, well groomed and ill appearing acutely Nutritional Appearance: well nourished and overweight Orientation: alert and awake [facility] Head: normal to inspection, normocephalic and atraumatic Ears: hearing grossly normal bilaterally, external ears normal and TM's normal bilaterally General nose exam: external nose normal and nares normal Face and sinus: normal facial exam, sinuses nontender and face symmetric Mouth: oral mucosae normal, lip normal, tongue normal, oropharynx normal and moist mucous membranes Teeth and gingiva: dentition normal Throat: posterior oropharynx normal, tonsils normal and uvula midline Eyes General: appearance normal, both eyes and all related structures Neck Neck: normal visual inspection, full ROM, no lymphadenopathy and no meningeal signs Resp Effort & Inspection: normal respiratory effort (on NC O2), able to speak in complete sentences, no respiratory distress and tachypneic Auscultation: clear to auscultation bilaterally, no rales, no rhonchi and no wheezes Cardio Rate: regular rate Rhythm: regular rhythm Heart Sounds: S1 normal and S2 normal GI Inspection: normal to inspection Palpation: soft and nontender Skin General skin exam: no rashes or lesions noted Neuro General: patient alert and patient awake Cognition: normal cognition Speech: speech normal Gait: normal gait Extrem General: normal to inspection, no pedal edema, no calf tenderness and other (2+ distal pulses) Psych Appearance: grossly normal and well kempt Mental Status: mental status grossly normal Speech and Movement: speech and movement normal Course Vital Signs Vital signs: Vital Signs Temperature 36.1 C L 04/25/21 20:14 Pulse 98 H 04/25/21 20:14 Respiratory Rate 24 04/25/21 20:14 Blood Pressure 142/107 H 04/25/21 20:14 Pulse Oximetry 86 L 04/25/21 20:14 Temperature 36.1 C L 04/25/21 20:14 Pulse 98 H 04/25/21 20:14 Respiratory Rate 24 04/25/21 20:14 Respiratory Effort 04/25/21 20:20 Respiratory Depth Normal 04/25/21 20:20 Blood Pressure 142/107 H 04/25/21 20:14 Blood Pressure Position Supine 04/25/21 20:14 Pulse Oximetry 86 L 04/25/21 20:14 Oxygen Delivery Method Room Air 04/25/21 20:14 Oxygen Flow Rate 0 04/25/21 20:14 Pain Level 0 04/25/21 20:14 Lab/Test Results Lab/Test Results: Laboratory Tests Range/Units 04/25/21 04/25/21 04/25/21 20:15 20:15 20:15 WBC (4.4-10.8) 10^3/uL 8.69 RBC (3.93-5.22) 10^6/uL 5.11 Hgb (11.2-15.7) g/dL 14.3 Hct (36.0-46.0) % 44.9 MCV (80-95) fL 87.9 MCH (27.0-33.0) pg 28.0 MCHC (32.0-36.0) % 31.8 L RDW (11.7-14.6) % 15.2 H Plt Count (130-400) 10^3/uL 257 MPV (8.0-11.0) fL 10.5 Immature Gran % 0.0 Neutrophils % 70.0 Lymphocytes % 25.0 Atypical Lymphs % 2 Monocytes % 2.0 Eosinophils % 1.0 Basophils % 0.0 Nucleated RBC % % 0 Absolute Neutrophils (1.2-6.7) 10^3/uL 6.08 Absolute Lymphocytes (1.2-3.4) 10^3/uL 2.35 Absolute Monocytes (0.1-0.8) 10^3/uL 0.17 Absolute Eosinophils (0.0-0.7) 10^3/uL 0.09 Absolute Basophils (0.0-0.2) 10^3/uL 0.00 RBC Morphology Normal D-Dimer (<500) ng/mlFEU 641 H Sodium (136-145) mmol/L 140 Potassium (3.5-5.1) mmol/L 3.6 Chloride (98-107) mmol/L 99 Carbon Dioxide (21.0-32.0) mmol/L 28.4 Anion Gap (3-11) mmol/L 12.6 H BUN (7-18) mg/dL 21 H Creatinine (0.55-1.02) mg/dL 1.0 Estimated GFR/1.73 m2 (mL/min/1.73m2) 56.37 Glucose (74-106) mg/dL 198 H Calcium (8.5-10.1) mg/dL 9.4 Total Bilirubin (0.2-1.0) mg/dL 0.8 AST (15-37) U/L 39 H ALT (14-59) U/L 31 Alkaline Phosphatase (46-116) U/L 72 Troponin I (<0.06) ng/mL < 0.05 Total Protein (6.4-8.2) g/dL 8.5 H Albumin (3.4-5.0) g/dL 3.6 COVID-19 Source Range/Units 04/25/21 20:31 WBC (4.4-10.8) 10^3/uL RBC (3.93-5.22) 10^6/uL Hgb (11.2-15.7) g/dL Hct (36.0-46.0) % MCV (80-95) fL MCH (27.0-33.0) pg MCHC (32.0-36.0) % RDW (11.7-14.6) % Plt Count (130-400) 10^3/uL MPV (8.0-11.0) fL Immature Gran % Neutrophils % Lymphocytes % Atypical Lymphs % Monocytes % Eosinophils % Basophils % Nucleated RBC % % Absolute Neutrophils (1.2-6.7) 10^3/uL Absolute Lymphocytes (1.2-3.4) 10^3/uL Absolute Monocytes (0.1-0.8) 10^3/uL Absolute Eosinophils (0.0-0.7) 10^3/uL Absolute Basophils (0.0-0.2) 10^3/uL RBC Morphology D-Dimer (<500) ng/mlFEU Sodium (136-145) mmol/L Potassium (3.5-5.1) mmol/L Chloride (98-107) mmol/L Carbon Dioxide (21.0-32.0) mmol/L Anion Gap (3-11) mmol/L BUN (7-18) mg/dL Creatinine (0.55-1.02) mg/dL Estimated GFR/1.73 m2 (mL/min/1.73m2) Glucose (74-106) mg/dL Calcium (8.5-10.1) mg/dL Total Bilirubin (0.2-1.0) mg/dL AST (15-37) U/L ALT (14-59) U/L Alkaline Phosphatase (46-116) U/L Troponin I (<0.06) ng/mL Total Protein (6.4-8.2) g/dL Albumin (3.4-5.0) g/dL COVID-19 Source Nasal/Nares
--- NOTE | 2021-04-25 22:01 | DI.VRAD_ITS ---
PROCEDURE INFORMATION: Exam: XR Chest Exam date and time: 04/25/2021 8:20 PM Age: 60 years old Clinical indication: Cough and shortness of breath; Patient HX: SOB, cough TECHNIQUE: Imaging protocol: XR of the chest. Views: 1 view. COMPARISON: CR XR CHEST 2V PA LATERAL 02/27/2021 7:52 PM FINDINGS: Lungs: Diffuse bilateral pulmonary abnormality. Focal consolidation of the left lower lobe concerning for an acute infiltrate. Increase interstitial markings are seen otherwise in both the right and left lung. This could represent interstitial edema. This could represent chronic underlying interstitial disease. Increase interstitial septal markings bilaterally may represent minor interstitial edema. Possibility of chronic underlying interstitial disease. Pleural spaces: No dat pleural effusion. Heart/Mediastinum: Normal heart size. Bones/joints: Degenerative thoracic spine disease. Degenerative thoracic spine disease. IMPRESSION: 1. Acute left lower lobe infiltrate is noted. 2. Increased interstitial lung markings bilaterally. Cannot exclude an underlying component of interstitial edema versus chronic interstitial disease. Dictated and Authenticated by: Babar Yang MD. Ordering:LLUVIA Sanchez MD
[2021-04-25] MEDS: Omnipaque 350 MG/ML 100 ML BTL IJ (22:05)
[2021-04-25] MEDS: Normal Saline - Diluent 50 ML VIAL IV (22:05)
[2021-04-25 22:14] LABS: COVID-19 PCR POSITIVE (Negative)
--- NOTE | 2021-04-25 22:36 | DI.VRAD_ITS ---
PROCEDURE INFORMATION: Exam: CTA Chest With Contrast Exam date and time: 04/25/2021 9:29 PM Age: 60 years old Clinical indication: Shortness of breath and other: Hypoxic, +d dimer; Patient HX: Hypoxic, +d dimer, covid+ TECHNIQUE: Imaging protocol: Computed tomographic angiography of the chest with contrast. 3D rendering (Not supervised by radiologist): MIP and/or 3D reconstructed images were created by the technologist. COMPARISON: CT CHEST LUNG CANCER SCREEN 10/14/2020 7:52 AM FINDINGS: Pulmonary arteries: Pulmonary arteries well opacified. No pulmonary arterial embolism evident. Aorta: Thoracic aorta is normal in course and caliber. Lungs: Bilateral peripheral lung subpleural infiltrative changes. Predominantly in interstitial ground-glass type appearance consistent with diagnosis of COVID-19 pneumonitis. These features are new since 10/14/2020. This is [id number] in severity. Pleural spaces: No pleural effusion. Heart: Normal heart size. No pericardial effusion. Lymph nodes: Enlarged bilateral hilar and mediastinal lymph nodes. Largest lymph node is right hilar measuring 2.5 x 1.7 cm. Spleen: Mild splenomegaly. Bones/joints: Degenerative thoracic spine features. No acute fracture. Soft tissues: Unremarkable. IMPRESSION: 1. Bilateral pneumonitis pattern. Recommend correlation for COVID-19 pneumonia. Imaging appearance is consistent. 2. No pulmonary arterial embolism evident. 3. No pleural effusion or pericardial effusion. 4. Mild bilateral hilar and mediastinal lymph node enlargement. Dictated and Authenticated by: Babar Yang MD. Ordering:LLUVIA Sanchez MD
[2021-04-25] MEDS: Dexamethasone 4 MG/ML VIAL 6 MG IVP (22:56)
[2021-04-25] MEDS: REMDESIVIR 200 MG in Normal Saline 250 ML 250 MG IVPB (22:56)
--- NOTE | 2021-04-25 22:56 | HPE_ITS ---
Date of service: 04/25/21 Time of Service: 22:56 Assessment and Plan Assessment and plan (1) COVID: Status: Acute Assessment and plan: COVID positive. I think the pneumonitis likely all COVID related, and without fever, leukocytosis or more focal consolidation I don't see case at present for superimposed bacterial pneumonia. Will follow clinically and add procalcitonin if any question remains. Will continue treatment with steroids and antivirals; as long as oxygenates well with low intensity O2 would not call for addition of Baricitinib. Will add prophylactic Lovenox as well. History of Present Illness History of Present Illness Chief Complaint: SOB Narrative: 60 female, unvaccinated, here with one week of fatigue, then some diarrhea, and now one day of cough and SOB. Findings in ER of note for initial sats reported in 80s, then mid 90s on 2L NC. White count 8.6, d-Dimer [address] demonstrating bilateral ground glass opacities c/w Covid pneumonitis; COVID swab is positive. Patient given Remdesivir and Dexamethasone and admitted for further management. Review of Systems All systems reviewed & are unremarkable except as noted in HPI and below [facility] Medical History Asthma Diagnosed in [address] Marshall testing 2000; head CT 10/06/02 & 03/05/06; HAD IN PAST; AGAIN 02/2012; again 08/08/13 to L Chronic airway obstruction (06/05/14) exacerbation 03/2014 [facility]; FEV1 1.6 (58& pred; 62% FVC) no response to bronchodilators Chronic hepatitis (05/09/93) Depressive disorder Intermittent. Essential hypertension Ex-smoker for more than 1 year Gastro-esophageal reflux disease without esophagitis (08/25/11) responds to PPI, unable to stop 02/2017 Hepatitis C Hyperlipidemia Hypertriglyceridemia Liver cirrhosis Myofascial muscle pain Nonalcoholic steatohepatitis (BUI) [facility] 02/20/19. Obesity Osteoarthritis of knee Polyarthritis Postmenopausal disorder Ongoing hot flashes. Serous otitis media Type 2 diabetes mellitus with hyperglycemia (10/12/15) 03/2014 hospital A1C 7%; goal A1c<7.5 Surgical History section x3 COLONOSCOPY W/ BX (10/10/17) elbow surg x2 ganglion wrist cyst removal x2 History of laryngoscopy 04/10/19 transnasal laryngoscopy salivary gland (02/23/17) [facility], left submental UGI W/ BX (10/10/17) [facility] Family History Father Heart disease Sister COPD (chronic obstructive pulmonary disease) Obese Brother Diabetes Essential hypertension Asthma Heart disease Hypertension Brother COPD (chronic obstructive pulmonary disease) Brother Alcohol abuse Brother Neoplasm non hodgkins lymphoma Mother COPD (chronic obstructive pulmonary disease) Asthma Heart disease Hypertension Social History Smoking/Tobacco Use Status: Former Tobacco Use tobacco type: cigarettes Quit Date: 08/09/19 Pack-years: 10 Tobacco: How many years used: 10 Second Hand Exposure: No Smoking risk assessment performed?: Yes Alcohol Intake: former Drug use: Never Substance use type: does not use Adopted: No Foster care: No Household members: family and other Details: mother Housing: house Number of Children: 3 Communication Needs: Corrective Lenses Do you need help understanding health information?: Rarely current occupation: [employer] Pets and animals: Yes Pets and animals: cat(s), dog(s) and bird(s) Sexually active: No Do you think of yourself as: straight/heterosexual Current gender identity: female What is your relationship status?: How often do you talk on the phone with friends or family?: three or more times per week How often do you get together with friends or relatives?: decline to answer How often do you attend rastafarian or pentecostalism services?: 1-3 times per year Panel score (0-1 are the most socially isolated patients): 1 What type of physical activity do you participate in: none Meg/Adventist: None Special meg needs: No Seatbelt use: always Helmet use: Yes Helmet use: other Details: N/A Drive intox or ride w/intox petroleum transport 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: No Working smoke detector in home: Yes Fire extinguisher in home: Yes Carbon monox detector in home: Yes Do you feel safe at home: Yes Do you feel safe in your relationship?: Yes Meds Allergies and Home Medications Allergies Allergy/AdvReac Type Severity Reaction Status Date / Time fluoxetine HCl [From Prozac] Allergy Intermediate rash Verified 04/25/21 20:18 metformin AdvReac Severe diarrhea Verified 04/25/21 20:18 rofecoxib [From Vioxx] AdvReac Severe bleeding Verified 04/25/21 20:18 aspirin AdvReac Intermediate GI Upset Verified 04/25/21 20:18 celecoxib [From Celebrex] AdvReac Intermediate GI Upset Verified 04/25/21 20:18 naproxen AdvReac Intermediate Stomach Verified 04/25/21 20:18 intolerance Home Medications Medication Instructions Recorded Confirmed Type albuterol sulfate 1.25 mg/3 mL 1.25 mg IH QID PRN #120 ml 07/03/18 04/25/21 Rx solution for nebulization lancets 33 gauge #180 ea 09/26/19 03/25/21 Rx aspirin 81 mg tablet,delayed 81 mg PO DAILY 12/26/19 04/25/21 History release omeprazole 40 mg capsule,delayed 40 mg PO DAILY #90 tab-cap 07/07/20 04/25/21 Rx release lisinopril 20 mg tablet 20 mg PO DAILY #90 tab-cap 07/16/20 04/25/21 Rx paroxetine HCl 20 mg tablet 20 mg PO DAILY #90 tab 07/16/20 04/25/21 Rx flash glucose scanning reader #1 ea 07/22/20 03/25/21 Rx blood sugar diagnostic #100 ea 07/27/20 03/25/21 Rx pen needle, diabetic 31 gauge x #100 each 10/01/20 03/25/21 Rx 3/16 meclizine 25 mg tablet 25 mg PO DAILY #90 tab-cap 12/24/20 04/25/21 Rx pregabalin 150 mg capsule 150 mg PO BID #180 cap 01/27/21 04/25/21 Rx albuterol sulfate 90 mcg/actuation 2 puff INHALATION Q4H PRN #1 puff 02/15/21 04/25/21 Rx aerosol inhaler empagliflozin 25 mg tablet 25 mg PO DAILY #90 tab 02/28/21 04/25/21 Rx insulin degludec 200 unit/mL (3 See Rx Instructions SUBCUT BID #18 02/28/21 04/25/21 Rx mL) subcutaneous pen ml insulin lispro 100 unit/mL See Rx Instructions SC BID #15 ml 02/28/21 04/25/21 Rx subcutaneous pen flash glucose sensor #2 ea 03/24/21 03/25/21 Rx Exam Narrative Exam Narrative: 142/107; 98; 36.1, 24, 89-91% 2L during my visit. HEENT atraumatic; neck supple; lungs right basilar rales; heart RRR; abdomen soft and NT; extremities w/o edema; neuro Ox3, lucid, moves all 4s Results Labs Result diagrams: 04/25/21 20:15 04/25/21 20:15 Labs: Laboratory Results - last 24 hr 04/25/21 04/25/21 04/25/21 20:15 20:15 20:15 WBC 8.69 RBC 5.11 Hgb 14.3 Hct 44.9 MCV 87.9 MCH 28.0 MCHC 31.8 L RDW 15.2 H Plt Count 257 MPV 10.5 Immature Gran % 0.0 Neutrophils % 70.0 Lymphocytes % 25.0 Atypical Lymphs % 2 Monocytes % 2.0 Eosinophils % 1.0 Basophils % 0.0 Nucleated RBC % 0 Absolute Neutrophils 6.08 Absolute Lymphocytes 2.35 Absolute Monocytes 0.17 Absolute Eosinophils 0.09 Absolute Basophils 0.00 RBC Morphology Normal D-Dimer 641 H Sodium 140 Potassium 3.6 Chloride 99 Carbon Dioxide 28.4 Anion Gap 12.6 H BUN 21 H Creatinine 1.0 Estimated GFR/1.73 m2 56.37 Glucose 198 H Calcium 9.4 Total Bilirubin 0.8 AST 39 H ALT 31 Alkaline Phosphatase 72 Troponin I < 0.05 Total Protein 8.5 H Albumin 3.6 COVID-19 Source SARS-CoV-2 (PCR) 04/25/21 20:31 WBC RBC Hgb Hct MCV MCH MCHC RDW Plt Count MPV Immature Gran % Neutrophils % Lymphocytes % Atypical Lymphs % Monocytes % Eosinophils % Basophils % Nucleated RBC % Absolute Neutrophils Absolute Lymphocytes Absolute Monocytes Absolute Eosinophils Absolute Basophils RBC Morphology D-Dimer Sodium Potassium Chloride Carbon Dioxide Anion Gap BUN Creatinine Estimated GFR/1.73 m2 Glucose Calcium Total Bilirubin AST ALT Alkaline Phosphatase Troponin I Total Protein Albumin COVID-19 Source Nasal/Nares SARS-CoV-2 (PCR) POSITIVE A* Last Vital Signs Temp 36.1 C L 04/25/21 20:14 Pulse 98 H 04/25/21 20:14 Resp 24 04/25/21 20:14 BP 142/107 H 04/25/21 20:14 Pulse Ox 86 L 04/25/21 20:14
[2021-04-26] VITALS (13 sets, daily range): BP systolic 109–150; BP diastolic 60–80; PULSE 68–99; RESP 17–27; TEMP 35.5–36.7; O2SAT 91–100
[2021-04-26 01:54] LABS: Troponin I < 0.05 ng/mL (<0.06)
[2021-04-26] MEDS: Pregabalin 50 MG CAP 150 MG PO ×3 (02:02→20:55)
[2021-04-26] MEDS: Normal Saline 1,000 ML 150 ML IV (05:40)
[2021-04-26] MEDS: Omeprazole 20 MG CAPCR 40 MG PO (08:38)
[2021-04-26] MEDS: Enoxaparin 40 MG/0.4 ML SYR SC (08:38)
[2021-04-26] MEDS: Aspirin E.C. 81 MG TABEC PO (08:38)
[2021-04-26] MEDS: PARoxetine 20 MG TAB PO (08:41)
[2021-04-26] MEDS: Meclizine 25 MG TAB PO (08:41)
[2021-04-26] MEDS: Dexamethasone 4 MG TAB 6 MG PO (08:41)
[2021-04-26] MEDS: Insulin Aspart 300 UNITS/3 ML PEN SC ×3 (08:42→17:00)
[2021-04-26] MEDS: Lisinopril 20 MG TAB PO (08:42)
--- NOTE | 2021-04-26 12:16 | PDOC.CMIN ---
- If Service Date Differs Date of service: 04/26/21 Time of Service: 12:17 Care Management Initial Assess REASON FOR HOSPITALIZATION:: COVID PAST MEDICAL HISTORY/PAST SURGICAL HISTORY:: Asthma. Diagnosed in 1993. Benign paroxysmal vertigo. Dr Marshall testing 2000; head CT 10/06/02 & 03/05/06; HAD IN PAST; AGAIN 02/2012; again 08/08/13 to L. Chronic airway obstruction (06/05/14). exacerbation 03/2014 [facility]; FEV1 1.6 (58& pred; 62% FVC) no response to bronchodilators. Chronic hepatitis (05/09/93). Depressive disorder. Intermittent. Essential hypertension. Ex-smoker for more than 1 year. Gastro-esophageal reflux disease without esophagitis (08/25/11). responds to PPI, unable to stop 02/2017. Hepatitis C. Hyperlipidemia. Hypertriglyceridemia. Liver cirrhosis. Myofascial muscle pain. Nonalcoholic steatohepatitis (BUI). [facility] [place] [place] 02/20/19. Obesity. Osteoarthritis of knee. Polyarthritis. Postmenopausal disorder. Ongoing hot flashes. Serous otitis media. Type 2 diabetes mellitus with hyperglycemia (10/12/15). 03/2014 hospital A1C 7%; goal A1c<7.5. Surgical History . section. x3. COLONOSCOPY W/ BX (10/10/17). elbow surg x2. ganglion wrist cyst removal x2. History of laryngoscopy. 04/10/19 transnasal laryngoscopy. salivary gland (02/23/17). [facility] [place] [place], left submental. UGI W/ BX (10/10/17). [facility] [place] [place] PREVIOUS FUNCTIONAL STATUS/SOCIAL/FAMILY SUPPORTS:: Mary Beth resides with her mother and her son in [facility]. 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 CURRENT FUNCTIONAL STATUS:: Mary Beth is currently up independently in her room, using a bedside commode. She is on 3L O2 nasal cannula. ADVANCE DIRECTIVES:: None on file. Has patient been provided with info about the portal/API?: Yes Did the patient sign up for the portal?: No CODE STATUS:: Full Code INSURANCE COVERAGE / FINANCIAL ISSUES:: Medicaid CURRENT HOME/COMMUNITY SERVICES/EQUIPMENT:: Glucometer-continuous monitor PRIMARY CARE PHYSICIAN:: Hai Lopez POTENTIAL DISCHARGE NEEDS:: Evaluations for further needs. PATIENT/FAMILY EDUCATION NEEDS:: Review discharge instructions, discuss Ask Me Three. ANTICIPATED BARRIERS TO DISCHARGE:: None identified. TRANSPORTATION:: Via private vehicle with family. PLAN:: Mary Beth will return home when ready, if physically able. She will follow up with her PCP and plan of care as prescribed. She will transport via private vehicle with family.
--- NOTE | 2021-04-26 12:46 | W.PM.PROGNOT ---
Date of Service Date of service: 04/26/21 Time of Service: 12:48 Assessment and Plan Assessment and plan (1) COVID: Status: Acute Assessment and plan: Cont Dexamethasone and remdesivir; as long as oxygenates well with low intensity O2 would not call for addition of Baricitinib. Prophylactic lovenox dosing. Acapella. (2) Chronic airway obstruction: Status: Acute Assessment and plan: Uses prn albuterol at home. No controller meds. Symbicort initiated. (3) Nonalcoholic steatohepatitis (BUI): Status: Chronic Assessment and plan: No evidence of decompensation. Bili OK. (4) Uncontrolled type 2 diabetes mellitus without complication, with long-term current use of insulin: Status: Acute Assessment and plan: Cont home Tresiba and Jardiance. SS correction dosing. Monitor A1c 7.8 in January 2021. (5) Essential hypertension: Status: Chronic Assessment and plan: Cont Lisinopril. Monitor. (6) Hyperlipidemia: Status: Chronic Assessment and plan: On no antihyperlipidemic meds. Subjective Subjective Patient reports: no new complaints, tolerating a regular diet and shortness of breath (with ambulation.); denies nausea and vomiting Exam Const General: cooperative and no acute distress Nutritional Appearance: obese Orientation: alert and oriented x3 Eyes General: appearance normal, both eyes and all related structures Sclera: sclerae normal Resp Effort & Inspection: normal respiratory effort Auscultation: clear to auscultation bilaterally and diminished lung sounds Cardio Rate: regular rate Rhythm: regular rhythm Heart Sounds: S1 normal and S2 normal GI Palpation: soft and nontender Auscultation: normal bowel sounds Skin General skin exam: no rashes or lesions noted Wounds: no wounds Neuro General: no focal motor deficits Cognition: normal cognition Speech: speech normal Extrem General: no pedal edema and no calf tenderness Objective Last Vital Signs Temp 35.5 C L 04/26/21 08:33 Pulse 70 04/26/21 08:33 Resp 20 04/26/21 08:33 BP 150/67 H 04/26/21 08:33 Pulse Ox 93 04/26/21 08:33 Laboratory Results - last 24 hr 04/25/21 04/25/21 04/25/21 20:15 20:15 20:15 WBC 8.69 RBC 5.11 Hgb 14.3 Hct 44.9 MCV 87.9 MCH 28.0 MCHC 31.8 L RDW 15.2 H Plt Count 257 MPV 10.5 Immature Gran % 0.0 Neutrophils % 70.0 Lymphocytes % 25.0 Atypical Lymphs % 2 Monocytes % 2.0 Eosinophils % 1.0 Basophils % 0.0 Nucleated RBC % 0 Absolute Neutrophils 6.08 Absolute Lymphocytes 2.35 Absolute Monocytes 0.17 Absolute Eosinophils 0.09 Absolute Basophils 0.00 RBC Morphology Normal D-Dimer 641 H Sodium 140 Potassium 3.6 Chloride 99 Carbon Dioxide 28.4 Anion Gap 12.6 H BUN 21 H Creatinine 1.0 Estimated GFR/1.73 m2 56.37 Glucose 198 H Calcium 9.4 Total Bilirubin 0.8 AST 39 H ALT 31 Alkaline Phosphatase 72 Troponin I < 0.05 Total Protein 8.5 H Albumin 3.6 COVID-19 Source SARS-CoV-2 (PCR) 04/25/21 04/26/21 20:31 01:20 WBC RBC Hgb Hct MCV MCH MCHC RDW Plt Count MPV Immature Gran % Neutrophils % Lymphocytes % Atypical Lymphs % Monocytes % Eosinophils % Basophils % Nucleated RBC % Absolute Neutrophils Absolute Lymphocytes Absolute Monocytes Absolute Eosinophils Absolute Basophils RBC Morphology D-Dimer Sodium Potassium Chloride Carbon Dioxide Anion Gap BUN Creatinine Estimated GFR/1.73 m2 Glucose Calcium Total Bilirubin AST ALT Alkaline Phosphatase Troponin I < 0.05 Total Protein Albumin COVID-19 Source Nasal/Nares SARS-CoV-2 (PCR) POSITIVE A*
[2021-04-26] MEDS: Acetaminophen 325 MG TAB 650 MG PO (22:03)
[2021-04-27 07:16] LABS: HCT 39.9 % (36.0-46.0); HGB 12.6 g/dL (11.2-15.7); MCH 27.8 pg (27.0-33.0); MCHC 31.6 % (32.0-36.0); MCV 87.9 fL (80-95); MPV 9.9 fL (8.0-11.0); Nucleated RBC 0 %; Platelet Count 255 10^3/uL (130-400); RBC 4.54 10^6/uL (3.93-5.22); RDW 14.6 % (11.7-14.6); RDW-SD 46.7 fL; WBC 8.81 10^3/uL (4.4-10.8)
[2021-04-27 07:28] LABS: BUN 26 mg/dL (7-18); CREATININE 0.9 mg/dL (0.55-1.02); Chloride 105 mmol/L (98-107); Glucose 288 mg/dL (74-106); Potassium 4.7 mmol/L (3.5-5.1); Sodium 140 mmol/L (136-145)
[2021-04-27 07:31] LABS: C-Reactive Protein 3.17 mg/dL (0.0-0.3)
[2021-04-27 07:52] LABS: D-Dimer 465 ng/mlFEU (<500)
[2021-04-27 08:31] LABS: Absolute Lymphocyte Count 2.64 10^3/uL (1.2-3.4); Absolute Neutrophil Count 5.29 10^3/uL (1.2-6.7)
[2021-04-27 08:32] LABS: Absolute Monocyte Count 0.88 10^3/uL (0.1-0.8)
[2021-04-27 08:33] LABS: Diff Comment Manual Differential; RBC Morphology Normal
[2021-04-27 09:00] VITALS: O2SAT 94
[2021-04-27] MEDS: Omeprazole 20 MG CAPCR 40 MG PO (09:02)
[2021-04-27] MEDS: Pregabalin 50 MG CAP 150 MG PO ×2 (09:02→20:48)
[2021-04-27] MEDS: Aspirin E.C. 81 MG TABEC PO (09:02)
[2021-04-27] MEDS: Lisinopril 20 MG TAB PO (09:03)
[2021-04-27] MEDS: Meclizine 25 MG TAB PO (09:03)
[2021-04-27] MEDS: Dexamethasone 4 MG TAB 6 MG PO (09:03)
[2021-04-27] MEDS: PARoxetine 20 MG TAB PO (09:03)
[2021-04-27] MEDS: Enoxaparin 40 MG/0.4 ML SYR SC (09:06)
[2021-04-27] MEDS: Normal Saline Flush 10 ML SYR IVP (09:07)
[2021-04-27] MEDS: Insulin Aspart 300 UNITS/3 ML PEN SC ×3 (09:07→17:02)
[2021-04-27 09:17] VITALS: BP 133/68; PULSE 73; RESP 18; TEMP 35.2; O2SAT 94
--- NOTE | 2021-04-27 12:44 | W.PM.PROGNOT ---
Date of Service Date of service: 04/27/21 Time of Service: 12:44 Assessment and Plan Assessment and plan (1) COVID: Status: Acute Assessment and plan: Cont Dexamethasone and remdesivir; as long as oxygenates well with low intensity O2 would not call for addition of Baricitinib. Prophylactic lovenox dosing. Acapella. D dimer has decreased. (2) Chronic airway obstruction: Status: Acute Assessment and plan: Uses prn albuterol at home. No controller meds. Symbicort initiated. (3) Nonalcoholic steatohepatitis (BUI): Status: Chronic Assessment and plan: No evidence of decompensation. Bili OK. (4) Uncontrolled type 2 diabetes mellitus without complication, with long-term current use of insulin: Status: Acute Assessment and plan: Cont home Tresiba and Jardiance. SS correction dosing. Monitor A1c 7.8 in January 2021. (5) Essential hypertension: Status: Chronic Assessment and plan: Cont Lisinopril. Monitor. (6) Hyperlipidemia: Status: Chronic Assessment and plan: On no antihyperlipidemic meds. Subjective Subjective Patient reports: no new complaints, tolerating a regular diet and afebrile; denies nausea and vomiting Interval history since last seen: c/o fatigue. No CP/palpitations. Exam Const General: cooperative and no acute distress Nutritional Appearance: obese Orientation: alert and oriented x3 Eyes General: appearance normal, both eyes and all related structures Sclera: sclerae normal Resp Effort & Inspection: normal respiratory effort Auscultation: clear to auscultation bilaterally and diminished lung sounds Cardio Rate: regular rate Rhythm: regular rhythm Heart Sounds: S1 normal and S2 normal GI Palpation: soft and nontender Auscultation: normal bowel sounds Skin General skin exam: no rashes or lesions noted Wounds: no wounds Neuro General: no focal motor deficits Cognition: normal cognition Speech: speech normal Extrem General: no pedal edema and no calf tenderness Objective Last Vital Signs Temp 35.2 C L 04/27/21 09:17 Pulse 73 04/27/21 09:17 Resp 18 04/27/21 09:17 BP 133/68 04/27/21 09:17 Pulse Ox 94 04/27/21 09:17 Laboratory Results - last 24 hr 04/27/21 04/27/21 04/27/21 07:04 07:04 07:04 WBC RBC Hgb Hct MCV MCH MCHC RDW Plt Count MPV Immature Gran % Neutrophils % Lymphocytes % Monocytes % Eosinophils % Basophils % Nucleated RBC % Absolute Neutrophils Absolute Lymphocytes Absolute Monocytes Absolute Eosinophils Absolute Basophils RBC Morphology D-Dimer 465 Sodium 140 Potassium 4.7 D Chloride 105 Carbon Dioxide 30.0 Anion Gap 5.0 BUN 26 H Creatinine 0.9 Estimated GFR/1.73 m2 >= 60.00 Glucose 288 H Calcium 9.0 C-Reactive Protein 3.17 H 04/27/21 07:04 WBC 8.81 RBC 4.54 Hgb 12.6 Hct 39.9 MCV 87.9 MCH 27.8 MCHC 31.6 L RDW 14.6 Plt Count 255 MPV 9.9 Immature Gran % 0.0 Neutrophils % 60.0 Lymphocytes % 30.0 Monocytes % 10.0 Eosinophils % 0.0 Basophils % 0.0 Nucleated RBC % 0 Absolute Neutrophils 5.29 Absolute Lymphocytes 2.64 Absolute Monocytes 0.88 H Absolute Eosinophils 0.00 Absolute Basophils 0.00 RBC Morphology Normal D-Dimer Sodium Potassium Chloride Carbon Dioxide Anion Gap BUN Creatinine Estimated GFR/1.73 m2 Glucose Calcium C-Reactive Protein
[2021-04-27] MEDS: Acetaminophen 325 MG TAB 650 MG PO ×2 (15:52→20:49)
--- NOTE | 2021-04-27 17:17 | CMPROGNOTE_ITS ---
- If Service Date Differs Date of service: 04/27/21 Time of Service: 17:35 Care Management Progress Note S/O: CM spoke with Mary Beth over the phone. She reported being very tired and still short of breath-she reported even rolling over in bed is exhausting at this time. 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 She stated she will be well cared for when she returns home and has no concerns ab out returning home at this time. She reported she enjoys reading and requested books to read. Mary Beth shared that her blood glucose numbers have been high, and attributes this to taking steroids at this time. A: 60 year old female admitted to [facility] 04/25/21 for COVID P: Mary Beth will return home when ready, if physically able. She will follow up with her PCP and plan of care as prescribed. She will transport via private vehicle with her son.
[2021-04-27 20:50] VITALS: BP 134/73; PULSE 84; RESP 20; TEMP 36.4; O2SAT 94
[2021-04-28 00:15] VITALS: BP 134/68; PULSE 70; RESP 20; TEMP 36.4; O2SAT 94
[2021-04-28 08:09] LABS: C-Reactive Protein 1.51 mg/dL (0.0-0.3)
[2021-04-28 08:31] LABS: D-Dimer 321 ng/mlFEU (<500)
[2021-04-28] MEDS: Dexamethasone 4 MG TAB 6 MG PO (08:49)
[2021-04-28] MEDS: Enoxaparin 40 MG/0.4 ML SYR SC (08:49)
[2021-04-28] MEDS: Lisinopril 20 MG TAB PO (08:50)
[2021-04-28] MEDS: Aspirin E.C. 81 MG TABEC PO (08:50)
[2021-04-28] MEDS: Meclizine 25 MG TAB PO (08:50)
[2021-04-28] MEDS: Omeprazole 20 MG CAPCR 40 MG PO (08:50)
[2021-04-28] MEDS: PARoxetine 20 MG TAB PO (08:51)
[2021-04-28] MEDS: Pregabalin 50 MG CAP 150 MG PO ×2 (08:51→22:23)
[2021-04-28 09:06] VITALS: BP 120/70; PULSE 86; RESP 18; TEMP 36; O2SAT 91
--- NOTE | 2021-04-28 11:01 | W.PM.PROGNOT ---
Date of Service Date of service: 04/28/21 Time of Service: 11:01 Assessment and Plan Assessment and plan (1) COVID: Status: Acute Assessment and plan: Cont Dexamethasone and remdesivir; as long as oxygenates well with low intensity O2 would not call for addition of Baricitinib. Prophylactic lovenox dosing. Acapella. D dimer has normalized. CRP decreased. Planning on walking O2 saturation monitoring tomorrow; possible D/C. (2) Chronic airway obstruction: Status: Acute Assessment and plan: Uses prn albuterol at home. No controller meds. Symbicort initiated. (3) Nonalcoholic steatohepatitis (BUI): Status: Chronic Assessment and plan: No evidence of decompensation. Bili OK. (4) Uncontrolled type 2 diabetes mellitus without complication, with long-term current use of insulin: Status: Acute Assessment and plan: Cont home Tresiba and Jardiance. SS correction dosing. Monitor A1c 7.8 in January 2021. (5) Essential hypertension: Status: Chronic Assessment and plan: Cont Lisinopril. Monitor. (6) Hyperlipidemia: Status: Chronic Assessment and plan: On no antihyperlipidemic meds. Subjective Subjective Patient reports: no new complaints, feels better and afebrile; denies diarrhea, nausea and vomiting Exam Narrative Exam Narrative: O2 saturations in the low 90's on 4L NC Const General: cooperative and no acute distress Nutritional Appearance: obese Orientation: alert and oriented x3 Eyes General: appearance normal, both eyes and all related structures Sclera: sclerae normal Resp Effort & Inspection: normal respiratory effort Auscultation: clear to auscultation bilaterally and diminished lung sounds Cardio Rate: regular rate Rhythm: regular rhythm Heart Sounds: S1 normal and S2 normal GI Palpation: soft and nontender Auscultation: normal bowel sounds Skin General skin exam: no rashes or lesions noted Wounds: no wounds Neuro General: no focal motor deficits Cognition: normal cognition Speech: speech normal Extrem General: no pedal edema and no calf tenderness Objective Last Vital Signs Temp 36 C L 04/28/21 09:06 Pulse 86 04/28/21 09:06 Resp 18 04/28/21 09:06 BP 120/70 04/28/21 09:06 Pulse Ox 91 L 04/28/21 09:06 Laboratory Results - last 24 hr 04/28/21 04/28/21 07:40 07:40 D-Dimer 321 C-Reactive Protein 1.51 H
[2021-04-28] MEDS: Insulin Aspart 300 UNITS/3 ML PEN SC ×2 (12:39→17:20)
[2021-04-28] MEDS: Acetaminophen 325 MG TAB 650 MG PO ×2 (17:19→22:37)
--- NOTE | 2021-04-28 18:28 | CMPROGNOTE_ITS ---
Care Management Progress Note S/O: Mary Beth continues to be closely monitored and treated, she remains on precautions at this time, has cellphone with her and is keeping in contact with family. CM continues to follow. A: 60 year old female admitted to [facility] 04/25/21 for COVID P: Mary Beth will return home when ready, per MD. She will follow up with her PCP and plan of care as prescribed. She will transport via private vehicle with her son.
[2021-04-28 22:38] VITALS: BP 142/67; PULSE 65; RESP 16; TEMP 35.9; O2SAT 93
[2021-04-28] MEDS: Normal Saline Flush 10 ML SYR IVP (23:58)
[2021-04-29 07:26] LABS: HCT 39.8 % (36.0-46.0); HGB 12.8 g/dL (11.2-15.7); MCH 28.3 pg (27.0-33.0); MCHC 32.2 % (32.0-36.0); MCV 87.9 fL (80-95); MPV 9.5 fL (8.0-11.0); Platelet Count 289 10^3/uL (130-400); RBC 4.53 10^6/uL (3.93-5.22); RDW 14.4 % (11.7-14.6); RDW-SD 46.3 fL; WBC 9.61 10^3/uL (4.4-10.8)
[2021-04-29 07:40] LABS: C-Reactive Protein 1.52 mg/dL (0.0-0.3)
[2021-04-29 08:00] LABS: D-Dimer 230 ng/mlFEU (<500)
[2021-04-29 09:09] VITALS: BP 118/66; PULSE 71; RESP 18; TEMP 35.5; O2SAT 91
[2021-04-29] MEDS: Enoxaparin 40 MG/0.4 ML SYR SC (09:32)
[2021-04-29] MEDS: Omeprazole 20 MG CAPCR 40 MG PO (09:33)
[2021-04-29] MEDS: Aspirin E.C. 81 MG TABEC PO (09:33)
[2021-04-29] MEDS: Acetaminophen 325 MG TAB 650 MG PO (09:33)
[2021-04-29] MEDS: Pregabalin 50 MG CAP 150 MG PO (09:34)
[2021-04-29] MEDS: PARoxetine 20 MG TAB PO (09:34)
[2021-04-29] MEDS: Dexamethasone 4 MG TAB 6 MG PO (09:34)
[2021-04-29] MEDS: Lisinopril 20 MG TAB PO (09:35)
[2021-04-29] MEDS: Meclizine 25 MG TAB PO ×2 (09:35)
[2021-04-29] MEDS: Insulin Aspart 300 UNITS/3 ML PEN SC (12:05)
[2021-04-29 13:02] VITALS: PULSE 75; PULSE 80; PULSE 86; PULSE 89; RESP 16; RESP 20; O2SAT 87; O2SAT 89; O2SAT 90; O2SAT 91
--- NOTE | 2021-04-29 13:02 | DSE_ITS ---
Date of service: 04/29/21 Time of Service: 13:02 DS: Diagnosis Discharge Diagnosis (1) COVID: Status: Acute (2) Chronic airway obstruction: Status: Acute (3) Nonalcoholic steatohepatitis (BUI): Status: Chronic (4) Uncontrolled type 2 diabetes mellitus without complication, with long-term current use of insulin: Status: Acute (5) Essential hypertension: Status: Chronic (6) Hyperlipidemia: Status: Chronic Discharge Plan Disposition Patient Disposition: HOME Condition: Improving Discharge Details Reason For Visit: COVID Pneumonia Admit Date/Time: 04/25/21 23:08 Admit Provider: Max Riggs Attending Provider: Max Riggs [facility] Hospital Course: 60 female, unvaccinated, here with one week of fatigue, then some diarrhea, and now one day of cough and SOB. Findings in ER of note for initial sats reported in 80s, then mid 90s on 2L NC. White count 8.6, d-Dimer [address] demonstrating bilateral ground glass opacities c/w Covid pneumonitis; COVID swab is positive. Patient given Remdesivir and Dexamethasone and admitted for further management. Pulmonary/critical care physician, Dr Murray, consulted. Pt required 3-4L supplemental O2 per NC. Her initially elevated d-dimer normalized. CRP decreased from 3.17 to 1.52. She clinically improved. Her supplemental O2 demands improved to requiring only 1-2 liters per NC with ambulation. She will f/u with PCP in 1-2 weeks. She is still considered contagious and should take appropriate quaranting measures. Home Meds and New Rx's Prescriptions: New dexamethasone 1.5 mg (21 tabs) tablets,dose pack See Rx Instructions .ROUTE .COMPLEX Qty: 21 RF: 0 Continued aspirin [Adult Aspirin Regimen] 81 mg tablet,delayed release (DR/EC) 81 mg PO DAILY RF: 0 albuterol sulfate 1.25 mg/3 mL solution for nebulization 1.25 mg IH QID PRN (Reason: shortness of breath or wheezing) Qty: 120 RF: 2 paroxetine HCl [Paxil] 20 mg tablet 20 mg PO DAILY Qty: 90 RF: 3 lisinopril 20 mg tablet 20 mg PO DAILY Qty: 90 RF: 3 pregabalin 150 mg capsule 150 mg PO BID Qty: 180 RF: 3 Jardiance 25 mg tablet 25 mg PO DAILY Qty: 90 RF: 3 insulin lispro [Humalog KwikPen Insulin] 100 unit/mL insulin pen See Rx Instructions SC BID Qty: 15 RF: 3 Tresiba FlexTouch U-200 200 unit/mL (3 mL) insulin pen See Rx Instructions subcut BID Qty: 18 RF: 6 omeprazole 40 mg capsule,delayed release(DR/EC) 40 mg PO DAILY Qty: 90 RF: 3 meclizine [VertiCalm] 25 mg tablet 25 mg PO DAILY Qty: 90 RF: 3 albuterol sulfate [ProAir HFA] 90 mcg/actuation HFA aerosol inhaler 2 puff Inhalation Q4H PRN Qty: 1 RF: 6 No Action (DME) pen needle, diabetic [BD Ultra-Fine Mini Pen Needle] 31 gauge x 3/16 needle See Dose Instructions .ROUTE .MEDSUPPLY Qty: 100 RF: 12 (DME) lancets 33 gauge misc 1 ea Miscellaneous BID Qty: 180 RF: 3 (DME) FreeStyle Coby 14 Day [place] Misc See Rx Instructions .ROUTE .MEDSUPPLY Qty: 1 RF: 0 (DME) FreeStyle Test Strip See Rx Instructions .ROUTE .MEDSUPPLY Qty: 100 RF: 6 (DME) FreeStyle Coby 2 Sensor Kit See Rx Instructions .ROUTE .MEDSUPPLY Qty: 2 RF: 11 Discharge Instructions Instructions: COVID-19 (Coronavirus Disease 2019)(GEN) Stand Alone Forms: Nursing Discharge Form Referrals: Hai Lopez DO [Primary Care Provider] - Activity:: Activity as Tolerated Equipment/Supplies:: No Equipment Needed Diet:: Resume home diet Discharge Orders Discharge Orders: Discharge Order (Routine); Ordered 04/29/21 Ordered By: Bernardo Rosado DS: Summary Time Spent with Patient providing and/or coordinating discharge services: Greater than 30 minutes Status at Discharge Functional status at discharge: independent ambulation Overall status at discharge: patient is progressing back to baseline Mental Status: mental status grossly normal Speech and Movement: speech and movement normal Mood: congruent mood Affect: normal affect Exam Psych Mental Status: mental status grossly normal Speech and Movement: speech and movement normal Mood: congruent mood Affect: normal affect DS: Data Vitals/I&O Vitals and I&O: Vital Signs Temperature 35.5 C L 04/29/21 09:09 Temperature Source Tympanic 04/29/21 09:09 Pulse 71 04/29/21 09:09 Pulse Rhythm Regular 04/29/21 00:01 Pulse 77 04/26/21 00:31 Respiratory Rate 18 04/29/21 09:09 Respiratory Effort Non-Labored 04/29/21 08:30 Respiratory Depth Normal 04/29/21 08:30 Respiratory Pattern Normal 04/29/21 08:30 Blood Pressure 118/66 04/29/21 09:09 Blood Pressure Mean 77 04/26/21 00:31 Blood Pressure Position Supine 04/25/21 20:14 Pulse Oximetry 91 L 04/29/21 09:09 Oxygen Delivery Method Nasal Cannula 04/29/21 09:09 Oxygen Flow Rate 4 04/29/21 09:09 Pain Level 0 04/29/21 09:09 Intake & Output 04/28/21 04/29/21 04/29/21 23:59 11:59 23:59 Intake Total 20 340 / 340 Output Total 1300 / 2100 700 / 700 Balance -1280 / -2080 -360 / -360 Intake: IV 100 / 100 Oral 240 / 240 Output: Urine 1300 / 2100 700 / 700 Other: Urine Color Pale Light Destiny Urine Appearance Clear Clear Urine Odor None None Voiding Methods Bedside Commode Data Completed and Pending Labs on day of discharge: Labs from last 24 hours 04/29/21 04/29/21 04/29/21 06:35 06:35 06:35 WBC 9.61 RBC 4.53 Hgb 12.8 Hct 39.8 MCV 87.9 MCH 28.3 MCHC 32.2 RDW 14.4 Plt Count 289 MPV 9.5 D-Dimer 230 C-Reactive Protein 1.52 [facility] Medical History Asthma Diagnosed in [address] [facility] testing 2000; head CT 10/06/02 & 03/05/06; HAD IN PAST; AGAIN 02/2012; again 08/08/13 to L Chronic airway obstruction (06/05/14) exacerbation 03/2014 [facility]; FEV1 1.6 (58& pred; 62% FVC) no response to bronchodilators Chronic hepatitis (05/09/93) Depressive disorder Intermittent. Essential hypertension Ex-smoker for more than 1 year Gastro-esophageal reflux disease without esophagitis (08/25/11) responds to PPI, unable to stop 02/2017 Hepatitis C Hyperlipidemia Hypertriglyceridemia Liver cirrhosis Myofascial muscle pain Nonalcoholic steatohepatitis (BUI) [place], [facility] [place] 02/20/19. Obesity Osteoarthritis of knee Polyarthritis Postmenopausal disorder Ongoing hot flashes. Serous otitis media Type 2 diabetes mellitus with hyperglycemia (10/12/15) 03/2014 hospital A1C 7%; goal A1c<7.5 Surgical History section x3 COLONOSCOPY W/ BX (10/10/17) elbow surg x2 ganglion wrist cyst removal x2 History of laryngoscopy 04/10/19 transnasal laryngoscopy salivary gland (02/23/17) [facility] [place], left submental UGI W/ BX (10/10/17) [facility] [place] Family History Father Heart disease Sister COPD (chronic obstructive pulmonary disease) Obese Brother Diabetes Essential hypertension Asthma Heart disease Hypertension Brother COPD (chronic obstructive pulmonary disease) Brother Alcohol abuse Brother Neoplasm non hodgkins lymphoma Mother COPD (chronic obstructive pulmonary disease) Asthma Heart disease Hypertension Social History Smoking/Tobacco Use Status: Former Tobacco Use tobacco type: cigarettes Quit Date: 08/09/19 Pack-years: 10 Tobacco: How many years used: 10 Second Hand Exposure: No Smoking risk assessment performed?: Yes Alcohol Intake: former Drug use: Never Substance use type: does not use Adopted: No Foster care: No Household members: family and other Details: mother Housing: house Number of Children: 3 Communication Needs: Corrective Lenses Do you need help understanding health information?: Rarely 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 Pets and animals: Yes Pets and animals: cat(s), dog(s) and bird(s) Sexually active: No Do you think of yourself as: straight/heterosexual Current gender identity: female What is your relationship status?: How often do you talk on the phone with friends or family?: three or more times per week How often do you get together with friends or relatives?: decline to answer How often do you attend nondenominational or yarsani services?: 1-3 times per year Panel score (0-1 are the most socially isolated patients): 1 What type of physical activity do you participate in: none Meg/Alevism: None Special meg needs: No Seatbelt use: always Helmet use: Yes Helmet use: other Details: N/A Drive intox or ride w/intox driver messenger: No Working smoke detector in home: Yes Fire extinguisher in home: Yes Carbon monox detector in home: Yes Do you feel safe at home: Yes Do you feel safe in your relationship?: Yes
--- NOTE | 2021-04-29 17:23 | PDOC.CMDIS ---
LACE Index Scoring Tool - Questions: Length of Stay (in days): 4 - 6 Acuity (Admit via E.D.?): Yes Comorbidities: Diabetes w/o Complication E.D. Visits: 2 - Answers: Total Score: 10 Risk of Readmission: High Risk Care Management Discharge Reason for Hospitalization: COVID Discharge Plan: Mary Beth will return home when ready, per MD. She will follow up with her PCP and plan of care as prescribed and have new orders for oxygen through [facility]. She will transport via private vehicle with her son. Patient/Family Education Needs: Review discharge instructions, discuss Ask Me Three. Services Needed at Discharge: Oxygen Therapy ([facility] coordinated by RT)
--- NOTE | 2021-04-29 17:47 | RESPIRATORY ---
Pt was set up with home Oxygen through [facility] at 2lpm ambulatory oxygen and room air at rest.
== END 2021-04-29 14:32 | disposition home or self-care (01) | DRG 177 ==
LOC: ER 23:37 → MS 04-26 00:40
PROVIDERS: Family Medicine; Admitting Provider General Practice; Emergency Provider Physician Assistant; PCP Family Medicine; Visit Provider General Practice
DX: U07.1 COVID-19 (principal); J12.82 Pneumonia due to coronavirus disease 2019; J44.0 Chronic obstructive pulmonary disease with (acute) lower respiratory infection; E11.65 Type 2 diabetes mellitus with hyperglycemia; Z79.4 Long term (current) use of insulin; Z87.891 Personal history of nicotine dependence; F32.A Depression, unspecified; E78.5 Hyperlipidemia, unspecified; E78.1 Pure hyperglyceridemia; K74.69 Other cirrhosis of liver; K75.81 Nonalcoholic steatohepatitis (NASH); K21.9 Gastro-esophageal reflux disease without esophagitis; I10 Essential (primary) hypertension; B18.2 Chronic viral hepatitis C; E66.9 Obesity, unspecified; Z68.36 Body mass index [BMI] 36.0-36.9, adult; M79.18 Myalgia, other site; M15.9 Polyosteoarthritis, unspecified; H81.10 Benign paroxysmal vertigo, unspecified ear
CPT/HCPCS: 36415; 71275; 80048; 80053; 85027; 87635; 93005; 94618; 96361; 96365; 96374; 99285; J1650; 71045; 84484; 85025; 85379; 86140; 93010; 99222; 99233; 99239; J1100; J3490; J8540

== ENCOUNTER 2021-07-13 10:18 | Outpatient (CLI) | payer MEDICAID, SELFPAY ==
--- NOTE | 2021-07-13 10:15 | RT.EKG_ITS ---
APPROVED REPORT Exam: Resting ECG Reason for Exam: syncope Patient Location: O HR:96 bpm ECG Measurements Heart Rate 96 AXIS DC 167 P 23 QRSd 77 QRS 45 QT 353 T 80 QTc 447 Conclusion Sinus rhythm...normal P axis, V-rate 60- 99 Low voltage, extremity and precordial leads...extremity<0.5mV, precordial<1.0mV
== END 2021-07-13 10:19 | disposition home or self-care (01) ==
LOC: DI.KIM 10:19
PROVIDERS: PCP Family Medicine; Visit Provider Nurse Practitioner
DX: R55 Syncope and collapse (principal)
CPT/HCPCS: 93010

== ENCOUNTER 2021-07-25 00:27 | Outpatient (CLI) | payer MEDICAID, SELFPAY ==
--- NOTE | 2021-07-25 07:00 | DI.MRI_ITS ---
Exam(s) MR BRAIN WO EXAM: MR BRAIN WO CLINICAL HISTORY: syncope and collapse,r55 TECHNIQUE: Multiplanar multisequence MRI of the brain was performed. COMPARISON: MR MR ORBIT FACIAL NECK WO/W from 09/19/2019 FINDINGS: VENTRICLES AND EXTRA AXIAL SPACES: Normal in size and morphology for the patient's age. HEMORRHAGE: None. CEREBRAL PARENCHYMA: No focus of restricted diffusion to suggest acute infarct. No space-occupying le marita identified. MIDLINE SHIFT: None. BRAINSTEM/CEREBELLUM: Normal. VISUALIZED PARANASAL SINUSES/MASTOIDS: Clear. OTHER FINDINGS: Orbits and pituitary unremarkable. IMPRESSION: MRI of the brain within normal limits for age. No acute abnormality. DATA REPOSITORY:
== END 2021-07-25 00:47 ==
PROVIDERS: PCP Family Medicine; Visit Provider Nurse Practitioner
DX: R55 Syncope and collapse (principal)
CPT/HCPCS: 70551

== ENCOUNTER 2021-07-25 01:06 | Outpatient (CLI) | payer MEDICAID, SELFPAY | END 2021-07-25 01:07 | disposition home or self-care (01) | LOC: RT 01:06 | PROVIDERS: PCP Family Medicine; Visit Provider Nurse Practitioner | DX: I63.9 Cerebral infarction, unspecified (principal) | CPT/HCPCS: 93246 ==

== ENCOUNTER 2021-07-27 15:41 | Outpatient (REF) | payer MEDICAID, SELFPAY ==
[2021-07-28 12:32] LABS: COVID-19 RT-PCR UVMMC Result Negative (Negative)
== END 2021-07-27 15:42 | disposition home or self-care (01) ==
LOC: LBN 15:41
PROVIDERS: PCP Family Medicine; Visit Provider Physician Assistant Medical
DX: Z20.822 Contact with and (suspected) exposure to COVID-19 (principal)
CPT/HCPCS: U0003

== ENCOUNTER 2021-09-12 15:48 | Outpatient (CLI) | payer MEDICAID, SELFPAY ==
--- NOTE | 2021-09-12 10:39 | DI.US_ITS ---
APPROVED REPORT EXAM: Comprehensive 2D, Doppler, and color-flow Echocardiogram Patient Location: Out-Patient Weatherization Director: Halie Melgar RDCS (AE) Indications: Syncope, Co Other Information Study Quality: Adequate. Technically limited study due to body habitus. Conclusion Left Ventricle : The left ventricle is normal size. The left ventricular systolic function is normal. The left ventricular ejection fraction is within the normal range. There is normal left ventricular wall thickness. There is normal LV segmental wall motion. LVEF is 60%. Right Ventricle : The right ventricle is normal size. The right ventricular systolic function is norm al. Atria : The left atrium size is normal. The right atrium size is normal. Tricuspid Valve : The tricuspid valve is normal in structure. Trace tricuspid regurgitation. Unable t o assess PA pressure. There is no tricuspid valve stenosis. See remainder of study for further details. Wall motion Left Ventricle The left ventricle is normal size. The left ventricular systolic function is normal. The left ventric ular ejection fraction is within the normal range. There is normal left ventricular wall thickness. T here is normal LV segmental wall motion. There is no ventricular septal defect visualized. LVEF is 60 %. Right Ventricle The right ventricle is normal size. The right ventricular systolic function is normal. Atria The left atrium size is normal. The right atrium size is normal. The interatrial septum is intact wit h no evidence for an atrial septal defect. Aortic Valve The aortic valve is normal in structure. There is no aortic valvular stenosis. No aortic regurgitatio n is present. Mitral Valve The mitral valve is normal in structure. No evidence of mitral valve stenosis. Trace mitral regurgita tion. Tricuspid Valve The tricuspid valve is normal in structure. There is no tricuspid valve stenosis. Trace tricuspid reg urgitation. Unable to assess PA pressure. Pulmonic Valve The pulmonary valve is normal in structure. There is no pulmonic valvular stenosis. There is no pulmo marianela valvular regurgitation. Great Vessels The aortic root is normal in size. The ascending aorta is mildly dilated. IVC is normal in size and c ollapses >50% with inspiration. Pericardium There is no pericardial effusion. Prominent anterior epicardial fat pad is present. 2D Dimensions IVSD d PLAX 1.03 cm F: 0.6-1.0 LV Vol A2C d MOD 69.6 mL LVPW d PLAX 1.03 cm F: 0.6 - 1.0 LV Vol A4C d MOD 75.8 mL LVID d PLAX 4.57 cm F: 3.8 - 5.2 LA vol/ BSA A2C s A-L 19.7 mL/m2 LVDs 3.05 cm F: 2.2 - 3.5 LA vol/ BSA A4C s A-L 17.0 mL/m2 Ao Root d 2.57 cm F: 2.7 - 3.3 LA Vol/ BSA Biplane s A-L 18.7 mL/m2 RA Area A4C 10.85 cm2 LA Area A4C s MOD 13.88 cm2 RA Vol/ BSA A4C s A-L 11.6 mL/m2 LA Area A2C s MOD 15.25 cm2 Ao Asc Diam d 3.27 cm F: 2.3 - 3.1 LV EF A4C MOD 59.2 % LV EF Teichholz 61.6 % LV EF A2C MOD 61.5 % LVEF (Katz's) 59.58 % F: 54 - 74 LV EF Biplane MOD 59.6 % LV Volume 54.99 mL F: 46 - 106 SV 44.27 mL LV Volume Index 26.43 mL/m2 F: 29 - 61 SV Index 21.25 mL/m2 LV Vol Biplane MOD 74.3 mL FS 32.95 % M-Mode TAPSE 2.01 cm (M/F) >1.7 LV Diastology MV E' medial 0.067 (>0.07 m/s) E/A Ratio 0.6 LV E/e MED 10.25 (<14) MV E Vmax 0.69 (0.4-1.3 m/s) MV E' lateral 0.055 (>0.1 m/s) MV A Vmax 1.15 (0.4-1.3 m/s) LV E/e LAT 12.50 (<14) MV E/A Ratio 0.59 MV E/E' medial 10.25 MV E/E' lateral 12.53 Aortic Valve LVOT Area 3.09 cm2 AoV Area Vmax 3.01 cm2 LVOT Vmax 1.29 m/s AoV Area/ BSA (Vmax) 1.44 cm2/m2 LVOT Mean Dagoberto. 1.01 m/s BRIANNA Mean Dagoberto. 3.34 cm2 LVOT Peak Grad 6.7 mmHg BRIANNA Mean Dagoberto. Index 1.60 cm2/m2 LVOT Mean Grad 4.3 mmHg LVOT VTI 0.239 m LVOT Diam s 1.95 cm AoV Vmax 1.32 m/s Velocity Ratio 0.97 AoV Mean Dagoberto. 0.94 m/s AoV Peak Grad 7.0 mmHg LVOT SV 73.86 mL AoV Mean Grad 4.0 mmHg AoV VTI 0.255 m AoV Area VTI 2.89 cm2 AoV Area/ BSA (VTI) 1.39 cm/m2 Mitral Valve MV DT 399 (160-240 msec) MV PHT 116 msec MV Area PHT 1.90 cm2 MV VTI 0.246 m MV Area VTI 3.01 (4.0-6.0 cm2) Pulmonary Valve PV Vmax 1.04 (0.5-1.5 m/s) RVOT Peak Gr. 2.71 mmHg PV Peak Grad 4.3 mmHg RVOT Mean Gr. 1.35 mmHg PV Mean Grad 2.8 mmHg RVOT VTI 0.142 m PV VTI 0.187 m RVOT Vmax 0.82 m/s
== END 2021-09-12 16:08 ==
PROVIDERS: PCP Family Medicine; Visit Provider Nurse Practitioner
DX: R55 Syncope and collapse (principal)
CPT/HCPCS: 93306

== ENCOUNTER 2021-12-05 20:41 | Emergency (ER) | payer MEDICAID, SELFPAY ==
[2021-12-05 20:59] VITALS: BP 123/68; PULSE 110; RESP 16; TEMP 36.9; O2SAT 92
[2021-12-05] MEDS: Normal Saline 500 ML 1000 ML IV (21:25)
--- NOTE | 2021-12-05 21:30 | DI.RAD_ITS ---
Exam(s) XR PORTABLE CHEST AP EXAM: XR PORTABLE CHEST AP CLINICAL HISTORY: upper abdominal pain going to blaise. TECHNIQUE: 2D digital imaging was performed. COMPARISON: CR,XR XR PORTABLE CHEST AP from 04/25/2021 FINDINGS: Single AP portable view. Heart size is upper normal. The mediastinum is not widened. Previously present left lung infiltrate seen on chest x-ray of 04/25/2021 has mostly resolved Lungs are presently clear. No infiltrates nor obvious pleural effusions. IMPRESSION: No acute pulmonary findings on this single AP portable view of the chest. DATA REPOSITORY: RADIATION DOSE DELIVERED: All CT scans at this facility use at least one of these dose optimization techniques: automated exposure control; mA and/or kV adjustment per patient size (includes targeted e xams where dose is matched to clinical indication); or iterative reconstruction.
--- NOTE | 2021-12-05 21:30 | DI.CT_ITS ---
Exam(s) CT ABDOMEN PELVIS WO EXAM: CT ABDOMEN PELVIS WO CLINICAL HISTORY: abdominal pain, upper, distension. TECHNIQUE: Imaging Protocol: Axial computed tomography images with coronal and sagittal reformatted images were created and reviewed CONTRAST MATERIAL: Intravenous: none Oral: Yes. Oral contrast was administered for bowel opacification. COMPARISON: CT ABD PELVIS WITH CONTRAST from 08/16/[address] CHEST PE CTA from 04/25/2021 FINDINGS: VISUALIZED LUNG BASES: The uppermost images reveal small millimeter nodule in the lateral segment of the right middle lobe. This require follow-up. No pleural effusions.. ABDOMEN: There is no ascites. LIVER: There are no obvious focal hepatic lesions evident of this noninfused study. No obvious dilat ation of intrahepatic ducts. GALLBLADDER/BILIARY: No obvious gallbladder pathology. 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 PANCREAS: There is very subtle streaking in the fat around the pancreatic head-uncinate process, poss ibly representing an element of very subtle pancreatitis. There is some enlarged portacaval lymph no de which, however, is unchanged from August 2017 CT scan. No other significant pancreatic findings nor dilatation of the pancreatic duct. SPLEEN: Spleen is not enlarged. No obvious intrasplenic lesions. ADRENALS: There are no significant adrenal masses. KIDNEYS:No cysts evident. No solid renal masses. No calculi nor hydronephrosis. . ABDOMINAL AORTA: Abdominal aorta is not enlarged. LYMPH NODES: There is no retroperitoneal nor paraaortic adenopathy. ABDOMINAL WALL: No evidence of significant anterior abdominal wall nor inguinal hernia. GI: There are some mildly dilated proximal and mid small bowel loops. Distal to these loops of the s mall bowel is not collapsed and the colon is not collapsed. PELVIS: LYMPH NODES: There is no intrapelvic nor inguinal adenopathy. GI: No evidence of appendicitis.There is sigmoid diverticuli but no obvious acute diverticulitis. URINARY BLADDER: No calculi nor obvious masses evident REPRODUCTIVE: Uterus and adnexal regions appear age-appropriate. OSSEOUS: No significant osseous lesions. No fractures evident. IMPRESSION: 1. There is mild dilatation of proximal-mid small bowel loops which are fluid-filled. No obvious tra nsition point. Nevertheless cannot exclude developing small-bowel obstruction. 2. There is mild hazy fat stranding adjacent to the pancreatic head/uncinate process, possibly repres enting mild acute pancreatitis. 3. 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 Study 1st read by Soled[facility] RADIATION DOSE DELIVERED: 1,076.72mGy.cm Total DLP DATA REPOSITORY: All CT scans at this facility are submitted to the National Radiology Data Registry (NRDR) Dose Index Registry (DIR) with the [employer] (ACR). RADIATION OPTIMIZATION: All CT scans at this facility use at least one of these dose optimization te chniques: automated exposure control; mA and/or kV adjustment per patient size (includes targeted exa ms where dose is matched to clinical indication); or iterative reconstruction.
[2021-12-05 21:35] LABS: Bilirubin Negative (Negative); Blood Negative (Negative); Clarity Sl Cloudy (Clear); Glucose 500 mg/dL (Negative); Ketones Negative (Negative); Leukocyte Esterase Negative (Negative); Nitrite Negative (Negative); Specific Gravity 1.015 (1.005-1.025); Urobilinogen 0.2 EU/dL (Up TO 0.2); pH 5.5 (5-8)
--- NOTE | 2021-12-05 21:52 | ED.GENADUL_ITS ---
Discharge Plan Disposition Patient Disposition: STILL A PATIENT Condition: Stable Discharge Details Chief Complaint: Abd Prob Clinical Impression: Abdominal pain Primary Care Provider: Hai Lopez ED Provider: Bernardo Gunn Home Meds and New Rx's Prescriptions: No Action aspirin [Adult Aspirin Regimen] 81 mg tablet,delayed release (DR/EC) 81 mg PO DAILY Rx Instructions: Must be Enteric-Coated. EO lisinopril 20 mg tablet 20 mg PO DAILY Qty: 90 3RF Rx Instructions: to lower blood pressure under 130/85 paroxetine HCl [Paxil] 20 mg tablet 20 mg PO DAILY Qty: 90 3RF omeprazole 40 mg capsule,delayed release(DR/EC) 40 mg PO DAILY Qty: 90 3RF Rx Instructions: once daily for GERD Tresiba FlexTouch U-200 200 unit/mL (3 mL) insulin pen See Rx Instructions subcut BID Rx Instructions: 36 units qam and 50 units qhs subcut twice a day; insulin lispro [Humalog KwikPen Insulin] 100 unit/mL insulin pen See Rx Instructions SC TID Qty: 15 3RF Rx Instructions: 4 units at breakfast, 6 units before lunch, 7 units before dinner subcut three times a day; albuterol sulfate 1.25 mg/3 mL solution for nebulization 1.25 mg IH QID PRN (Reason: shortness of breath or wheezing) Qty: 120 2RF Jardiance 25 mg tablet 25 mg PO DAILY Qty: 90 3RF Rx Instructions: to help control blood sugars, E11.65 (DME) lancets 33 gauge misc 1 ea Miscellaneous BID Qty: 180 3RF Rx Instructions: E11.65 for twice daily FS check to control DM A1c 7.5; E11.65 (DME) FreeStyle Coby 14 Day [place] Misc See Rx Instructions .ROUTE .MEDSUPPLY Qty: 1 0RF Rx Instructions: As directed (DME) FreeStyle Test Strip See Rx Instructions .ROUTE .MEDSUPPLY Qty: 100 6RF Rx Instructions: As directed to use with fresetyle coby; Test TID; To keep HbA1c less than 6.5% albuterol sulfate [ProAir HFA] 90 mcg/actuation HFA aerosol inhaler 2 puff Inhalation Q4H PRN Qty: 1 6RF Rx Instructions: for SOB or wheezing, dispense with spacer (DME) FreeStyle Coby 2 Sensor Kit See Rx Instructions .ROUTE .MEDSUPPLY Qty: 2 11RF Rx Instructions: As directed, to keep HbA1c less than 6.5% (DME) pen needle, diabetic [BD Ultra-Fine Mini Pen Needle] 31 gauge x 3/16 needle See Dose Instructions .ROUTE .MEDSUPPLY Qty: 100 12RF Dose Instruction: As directed Rx Instructions: As directed meclizine [VertiCalm] 25 mg tablet 25 mg PO DAILY Qty: 90 3RF pregabalin 150 mg capsule 150 mg PO BID Qty: 180 3RF Medical Decision Making 61-year-old female history of diabetes, prior hysterectomy presents with abdominal discomfort distention, nausea no vomiting, bowel movement earlier today but not passing as much gas, no vomiting nonperitoneal does have a distended slightly tympanic abdomen, moderately tachycardic. Consider obstruction versus biliary colic versus cholecystitis versus pancreatitis versus gastritis versus enterocolitis. Also also consider UTI or kidney stone however less likely. Fluids analgesia antiemetics, imaging close reassessment 23: 56 patient resting comfortably no acute distress no vomiting, hemodynamically stable. Awaiting CT scan results and urinalysis. HPI General Date/Time Provider Initiated Documentation: 12/05/21 21:23 . HPI Narrative: 61-year-old female history of diabetes, hysterectomy, presents with abdominal pain upper in nature radiating to the right and back, associate with nausea, no vomiting, has bowel movement earlier today was passing less gas, feels slightly distended. Denies chest pain or shortness of breath. Related Data Home Medications Medication Instructions Recorded Confirmed albuterol sulfate 1.25 mg/3 mL 1.25 mg (3 mL) inhalation QID PRN 07/03/18 12/05/21 solution for nebulization shortness of breath or wheezing #120 mL lancets 33 gauge #180 ea 09/26/19 09/30/21 aspirin 81 mg tablet,delayed 81 mg PO DAILY 12/26/19 09/30/21 release (Adult Aspirin Regimen) flash glucose scanning reader #1 ea 07/22/20 09/30/21 (FreeStyle Coby 14 Day [place]) blood sugar diagnostic (FreeStyle #100 ea 07/27/20 09/30/21 Test strips) albuterol sulfate 90 mcg/actuation 2 puff inhalation Q4H PRN 02/15/21 12/05/21 aerosol inhaler (ProAir HFA) wheezing, SOB #1 puff empagliflozin 25 mg tablet 25 mg PO DAILY #90 tabs 02/28/21 12/05/21 (Jardiance) flash glucose sensor (FreeStyle #2 ea 03/24/21 09/30/21 Coby 2 Sensor kit) lisinopril 20 mg tablet 20 mg PO DAILY #90 tab-caps 06/14/21 12/05/21 omeprazole 40 mg capsule,delayed 40 mg PO DAILY #90 tab-caps 06/14/21 12/05/21 release paroxetine HCl 20 mg tablet (Paxil) 20 mg PO DAILY #90 tabs 06/14/21 12/05/21 insulin degludec 200 unit/mL (3 See Rx Instructions subcut BID 11/01/21 12/05/21 mL) subcutaneous pen (Tresiba FlexTouch U-200 insulin) insulin lispro 100 unit/mL See Rx Instructions subcut TID #15 11/01/21 12/05/21 subcutaneous pen (Humalog KwikPen mL (U-100) Insulin) pen needle, diabetic 31 gauge x #100 ea 11/03/2109/21 (BD Ultra-Fine Mini Pen Needle) meclizine 25 mg tablet (VertiCalm) 25 mg PO DAILY #90 tab-caps 11/17/21 12/05/21 pregabalin 150 mg capsule 150 mg PO BID #180 caps 11/17/21 12/05/21 Previous Rx's Medication Instructions Recorded albuterol sulfate 1.25 mg/3 mL 1.25 mg (3 mL) inhalation QID PRN 07/03/18 solution for nebulization shortness of breath or wheezing #120 mL lancets 33 gauge #180 ea 09/26/19 flash glucose scanning reader #1 ea 07/22/20 (FreeStyle Coby 14 Day [place]) blood sugar diagnostic (FreeStyle #100 ea 07/27/20 Test strips) albuterol sulfate 90 mcg/actuation 2 puff inhalation Q4H PRN 02/15/21 aerosol inhaler (ProAir HFA) wheezing, SOB #1 puff empagliflozin 25 mg tablet 25 mg PO DAILY #90 tabs 02/28/21 (Jardiance) flash glucose sensor (FreeStyle #2 ea 03/24/21 Coby 2 Sensor kit) lisinopril 20 mg tablet 20 mg PO DAILY #90 tab-caps 06/14/21 omeprazole 40 mg capsule,delayed 40 mg PO DAILY #90 tab-caps 06/14/21 release paroxetine HCl 20 mg tablet (Paxil) 20 mg PO DAILY #90 tabs 06/14/21 insulin lispro 100 unit/mL See Rx Instructions subcut TID #15 11/01/21 subcutaneous pen (Humalog KwikPen mL (U-100) Insulin) pen needle, diabetic 31 gauge x #100 ea 11/03/2109/21 (BD Ultra-Fine Mini Pen Needle) meclizine 25 mg tablet (VertiCalm) 25 mg PO DAILY #90 tab-caps 11/17/21 pregabalin 150 mg capsule 150 mg PO BID #180 caps 11/17/21 Allergies Allergy/AdvReac Type Severity Reaction Status Date / Time fluoxetine HCl [From Prozac] Allergy Intermediate rash Verified 12/05/21 21:01 metformin AdvReac Severe diarrhea Verified 12/05/21 21:01 rofecoxib [From Vioxx] AdvReac Severe bleeding Verified 12/05/21 21:01 aspirin AdvReac Intermediate GI Upset Verified 12/05/21 21:01 celecoxib [From Celebrex] AdvReac Intermediate GI Upset Verified 12/05/21 21:01 naproxen AdvReac Intermediate Stomach Verified 12/05/21 21:01 intolerance General Stated Complaint: Abd Prob HOSSEIN: 3 Review of Systems Narrative: Review of Systems Constitutional: negative Eyes: negative ENT: negative Cardiovascular: negative Respiratory: negative Gastrointestinal: Abdominal pain, nausea : negative Musculoskeletal: negative Skin: negative Neurologic: negative Psych: negative PFSH All Active Problems (Updated 12/05/21 @ 23:59 by Bernardo Gunn MD) Abdominal pain (Acute) Allergic sinusitis (Acute) Acute bronchitis (Acute) Hypoglycemia (Acute) Myofascial muscle pain (Acute) Ex-smoker for more than 1 year (Acute) Osteoarthritis of knee (Chronic) Asthma (Chronic) Diagnosed in 1993 Postmenopausal disorder (Chronic) Ongoing hot flashes. Hyperlipidemia (Chronic) Obesity (Chronic) Hypertriglyceridemia (Chronic) Benign paroxysmal vertigo (Acute) Dr Marshall testing 2000; head CT 10/06/02 & 03/05/06; HAD IN PAST; AGAIN 02/2012; again 1/31/14 to L Chronic airway obstruction (Acute 06/05/14) exacerbation 03/2014 [facility]; FEV1 1.6 (58& pred; 62% FVC) no response to bronchodilators Gastro-esophageal reflux disease without esophagitis (Acute 08/25/11) responds to PPI, unable to stop 02/2017 Type 2 diabetes mellitus with hyperglycemia (Acute 10/12/15) 03/2014 hospital A1C 7%; goal A1c<7.5 Liver cirrhosis (Chronic) Chronic hepatitis (Acute 05/09/93) Essential hypertension (Chronic) Nonalcoholic steatohepatitis (BUI) (Chronic) [facility] 02/20/19. Stroke (Chronic) Depressive disorder (Chronic) Intermittent. Polyarthritis (Acute) Unspecified visual disturbance (Acute) [facility] opthalmology Unspecified visual field defects (Acute) Exophoria (Acute) Benign paroxysmal positional vertigo of right ear (Acute) Referred otalgia of right ear (Acute) Neck pain (Acute 06/29/16) Steroid-induced hyperglycemia (Acute 03/09/14) Uncontrolled type 2 diabetes mellitus without complication, with long-term current use of insulin (Acute) Submandibular sialoadenitis (Acute 06/29/16) 06/29/16 Right flank pain (Acute 07/31/16) Other sleep disturbances (Acute 08/16/12) when back hurts and left knee/leg throb, sleep is disturbed Mechanical low back pain (Acute 08/02/08) DAILY PAIN SINCE FALL ON ICE AT WORK AUG 02, 2008 WC; re-injured 06/17/12 lifting at work; MRI 09/2012: MOD FACET ARTHROPATHY L5-S1, MILD L4-5 Tens unit 09/23/14; Functional Restor prg 07/2015 Diabetes mellitus (Chronic 04/16/14) 03/2014 hospital A1C 7%; goal A1c<7.5 Chronic rhinitis (Acute 08/25/11) Cervicalgia (Acute 06/29/16) 06/29/16 Arthropathy, unspecified (Acute 08/25/11) marjorie knees Acute renal failure (Acute 04/06/14) Neuropathy of finger (Chronic) Intermittent vertigo (Chronic) Trigger thumb of right hand (Chronic) Medical History Asthma Diagnosed in [address] Marshall testing 2000; head CT 10/06/02 & 03/05/06; HAD IN PAST; AGAIN 02/2012; again 08/08/13 to L Chronic airway obstruction (06/05/14) exacerbation 03/2014 [facility]; FEV1 1.6 (58& pred; 62% FVC) no response to bronchodilators Chronic hepatitis (05/09/93) Depressive disorder Intermittent. Essential hypertension Ex-smoker for more than 1 year Gastro-esophageal reflux disease without esophagitis (08/25/11) responds to PPI, unable to stop 02/2017 Hepatitis C Hyperlipidemia Hypertriglyceridemia Liver cirrhosis Myofascial muscle pain Nonalcoholic steatohepatitis (BUI) [place], [facility] 02/20/19. Obesity Osteoarthritis of knee Polyarthritis Postmenopausal disorder Ongoing hot flashes. Serous otitis media Type 2 diabetes mellitus with hyperglycemia (10/12/15) 03/2014 hospital A1C 7%; goal A1c<7.5 Surgical History section x3 COLONOSCOPY W/ BX (10/10/17) elbow surg x2 ganglion wrist cyst removal x2 History of laryngoscopy 04/10/19 transnasal laryngoscopy salivary gland (02/23/17) [facility], left submental UGI W/ BX (10/10/17) [facility] Family History (Updated 06/14/21 @ 10:15 by Roya Slade RN) Father Heart disease Sister COPD (chronic obstructive pulmonary disease) Obese Brother Diabetes Essential hypertension Asthma Heart disease Hypertension Brother COPD (chronic obstructive pulmonary disease) Brother Alcohol abuse Brother Neoplasm non hodgkins lymphoma Mother COPD (chronic obstructive pulmonary disease) Asthma Heart disease Hypertension Social History (Updated 07/13/21 @ 10:12 by Laurel Cordova LPN) Smoking/Tobacco Use Status: Current every day Tobacco: How many years used: 10 Second Hand Exposure: No Smoking risk assessment performed?: Yes Alcohol Intake: former Drug use: Never Substance use type: does not use Adopted: No Foster care: No Household members: family and other Details: mother Housing: house Number of Children: 3 Communication Needs: Corrective Lenses Do you need help understanding health information?: Rarely 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 Hearing Impaired Pets and animals: Yes Pets and animals: cat(s), dog(s) and bird(s) Sexually active: No Do you think of yourself as: straight/heterosexual Current gender identity: female What is your relationship status?: How often do you talk on the phone with friends or family?: three or more times per week How often do you get together with friends or relatives?: decline to answer How often do you attend scientologist or tenriism services?: 1-3 times per year Panel score (0-1 are the most socially isolated patients): 1 What type of physical activity do you participate in: none Meg/Jehovah'S Witness: None Special meg needs: No Seatbelt use: always Helmet use: Yes Helmet use: other Details: N/A Drive intox or ride w/intox taxicab driver: No Working smoke detector in home: Yes Fire extinguisher in home: Yes Carbon monox detector in home: Yes Do you feel safe at home: Yes Do you feel safe in your relationship?: Yes Exam Narrative Exam Narrative: Physical Examination General: alert, awake, cooperative, mildly uncomfortable HEENT: normocephalic, atraumatic; PERRL, EOM intact, conjunctiva normal; no nasal discharge; moist mucous membranes, oral and pharyngeal mucosa normal, tolerating secretions Neck: supple, trachea midline; full ROM Chest: normal to inspection Respiratory: normal respiratory effort, speaking in full sentences, clear to auscultation, no wheezing, rales or rhonchi Cardiac: Tachycardia, regular rhythm, S1S2 intact, no murmurs rubs or gallops GI: Slightly distended, tympanic, nonperitoneal, no palpable masses Skin: no lesions, rashes or trauma appreciated Neuro: AAOx3, normal speech, moving all extremities Psych: Appropriate mood and affect Course Vital Signs Vital signs: Vital Signs Temperature 36.9 C 12/05/21 20:59 Pulse 110 H 12/05/21 20:59 Respiratory Rate 16 12/05/21 20:59 Blood Pressure 123/68 12/05/21 20:59 Pulse Oximetry 92 12/05/21 20:59 Temperature 36.9 C 12/05/21 20:59 Temperature Source Skin 12/05/21 20:59 Pulse 110 H 12/05/21 20:59 Respiratory Rate 16 12/05/21 20:59 Respiratory Effort Non-Labored 12/05/21 21:02 Blood Pressure 123/68 12/05/21 20:59 Pulse Oximetry 92 12/05/21 20:59 Pain Level 10 12/05/21 20:59 Lab/Test Results Lab/Test Results: Laboratory Tests Range/Units 12/05/21 21:10 Urine Color (Yellow) Yellow Urine Clarity (Clear) Sl Cloudy Urine pH (5-8) 5.5 Ur Specific [place] (1.005-1.025) 1.015 Urine Protein (Negative) mg/dL Negative Urine Ketones (Negative) mg/dL Negative Urine Blood (Negative) Negative Urine Nitrite (Negative) Negative Urine Bilirubin (Negative) Negative Urine Urobilinogen (Up TO 0.2) EU/dL 0.2 Ur Leukocyte Esterase (Negative) Negative Urine Glucose (Negative) mg/dL 500 H
[2021-12-05 21:55] LABS: Abs Immature Grans 0.06 10^3/uL (0.0-0.06); Absolute Basophil Count 0.09 10^3/uL (0.0-0.2); Absolute Neutrophil Count 8.51 10^3/uL (1.2-6.7); Basophils % 0.7; Eosinophils % 2.3; HCT 54.5 % (36.0-46.0); HGB 17.6 g/dL (11.2-15.7); Immature Grans % 0.5; Lymphocytes % 25.1; MCHC 32.3 % (32.0-36.0); MCV 87 fL (80-95); Monocytes % 5.4; Platelet Count 195 10^3/uL (130-400); RBC 6.28 10^6/uL (3.93-5.22); RDW 17.6 % (11.7-14.6); RDW-SD 52.5 fL; WBC 12.89 10^3/uL (4.4-10.8)
[2021-12-05 21:56] LABS: Absolute Lymphocyte Count 3.24 10^3/uL (1.2-3.4)
[2021-12-05] MEDS: MORPHine 4 MG/ML SYR IVP (22:04)
[2021-12-05] MEDS: Ondansetron 4 MG/2 ML VIAL IVP (22:04)
[2021-12-05 22:11] LABS: ALT 24 U/L (14-59); AST 21 U/L (15-37); Alkaline Phosphatase 137 U/L (46-116); Anion Gap 8.6 mmol/L (3-11); BUN 13 mg/dL (7-18); Bilirubin, Total 0.5 mg/dL (0.2-1.0); CO2 29.4 mmol/L (21.0-32.0); Calcium 9.3 mg/dL (8.5-10.1); Chloride 103 mmol/L (98-107); Estimated GFR 56.18 (mL/min/1.73m2); Glucose 228 mg/dL (74-106); Lipase 356 U/L (73-393); Potassium 3.8 mmol/L (3.5-5.1); Sodium 141 mmol/L (136-145); Total Protein 7.9 g/dL (6.4-8.2); Troponin I < 50 ng/L (<or=60)
--- NOTE | 2021-12-05 22:13 | DI.VRAD_ITS ---
PROCEDURE INFORMATION: Exam: XR Chest Exam date and time: 12/05/2021 9:43 PM Age: 61 years old Clinical indication: Patient HX: Upper abdominal pain going to back TECHNIQUE: Imaging protocol: XR of the chest. Views: 1 view. COMPARISON: XR PORTABLE CHEST AP 04/25/2021 8:44 PM FINDINGS: Limitations: The examination is underpenetrated. Overlying soft tissue obscures the lateral left lung base and left costophrenic angle. Lungs: The lateral left lung base is obscured by overlying soft tissue. Pulmonary consolidation in this region is not excluded. Otherwise, no pulmonary consolidation is seen. Pleural spaces: Overlying soft tissue obscures the left costophrenic angle. A left-sided pleural effusion is not excluded. No right-sided pleural effusion is seen. No pneumothorax is demonstrated. Heart/Mediastinum: Heart size is normal. Bones/joints: The visualized bony structures appear grossly intact, as seen but are not well evaluated. IMPRESSION: Overlying soft tissue obscures the lateral left lung base and left costophrenic angle. Consolidation or a pleural effusion in this region cannot be excluded. Otherwise, no active disease is seen in the chest. Dictated and Authenticated by: Nitesh Smith MD. Ordering:LOIDA Chang MD
[2021-12-06 00:07] VITALS: BP 119/69; PULSE 94; RESP 16; O2SAT 90
--- NOTE | 2021-12-06 00:17 | DI.VRAD_ITS ---
PROCEDURE INFORMATION: Exam: CT Abdomen And Pelvis Without Contrast Exam date and time: 12/05/2021 11:40 PM Age: 61 years old Clinical indication: Localized; Prior surgery; Surgery date: 6+ months; Surgery type: C section; Patient HX: Abdominal pain radiating into back, upper, distension. Biliary v obstruction v enterocolitis? TECHNIQUE: Imaging protocol: Computed tomography of the abdomen and pelvis without contrast. Radiation optimization: All CT scans at this facility use at least one of these dose optimization techniques: automated exposure control; mA and/or kV adjustment per patient size (includes targeted exams where dose is matched to clinical indication); or iterative reconstruction. Other contrast: Oral, gastroview, 25; COMPARISON: CT ABD PELVIS WITH CONTRAST 08/16/2017 5:38 PM FINDINGS: Lungs: 4 mm right middle lobe pulmonary nodule. Streaky atelectasis in the lingula and right middle lobe. Liver: Normal appearing liver. Gallbladder and bile ducts: Gallbladder partially collapsed. No calcified gallstones seen. No biliary dilatation. Pancreas: Subtle hazy fat stranding adjacent to the pancreatic head obscuring the fat plane between the pancreatic head in the proximal duodenum. Otherwise normal-appearing pancreas. Spleen: Normal appearing spleen. Adrenal glands: Normal appearing adrenal glands. Kidneys and ureters: Normal appearing kidneys. No hydronephrosis. No obstructing ureteral stones. Stomach and bowel: Stomach moderately distended with ingested material and oral contrast. 1.0 cm x 1.5 cm x 2.0 cm duodenal lipoma, images 40 of series 2 and 58 of series 4, also seen on the comparison exam. Mild distention of the proximal-mid small bowel with contrast material and fluid but no point of abrupt caliber transition to suggest a small bowel obstruction. Scattered diverticula through the descending and sigmoid colon. No evidence of diverticulitis or colitis. Appendix: Normal-appearing retrocecal appendix. Intraperitoneal space: Trace fluid in the deep pelvis, nonspecific. No free air. Vasculature: Normal caliber abdominal aorta. Lymph nodes: No pathologically enlarged mesenteric, retroperitoneal, or pelvic sidewall lymph nodes. Urinary bladder: Normal appearing urinary bladder. Reproductive: Uterus and ovaries grossly unremarkable, as seen. Bones/joints: No acute fracture seen among the bones of the abdomen or pelvis. Soft tissues: No significant ventral or inguinal hernia. IMPRESSION: 1. Subtle hazy fat stranding adjacent to the pancreatic head obscuring the fat plane between the pancreatic head and the proximal duodenum suspicious for acute pancreatitis. Correlation with laboratory values is recommended for diagnostic confirmation as the imaging appearance is subtle. 2. Mild fluid-filled and contrast filled distention of the proximal-mid small bowel but no point of abrupt caliber transition to a small bowel obstruction. 3. 1.0 cm x 1.5 cm x 2.0 cm duodenal lipoma, also seen on the comparison exam from 2018. Dictated and Authenticated by: Nitesh Smith MD. Ordering:LOIDA Chang MD
[2021-12-06 00:57] VITALS: BP 121/82; PULSE 97; RESP 16; O2SAT 90
== END 2021-12-06 01:00 | disposition home or self-care (01) ==
PROVIDERS: Emergency Medicine; Emergency Provider Student in an Organized Health Care Education/Training Program; PCP Family Medicine
DX: R10.10 Upper abdominal pain, unspecified (principal); M54.9 Dorsalgia, unspecified; R14.0 Abdominal distension (gaseous)
CPT/HCPCS: 80053; 83690; 96361; 96374; 96375; 99284; 71045; 74176; 81003; 84484; 85025; J2270; J2405

== ENCOUNTER → 2022-04-12 01:27 | Outpatient (CLI) | payer MEDICAID, SELFPAY ==
--- NOTE | 2022-04-12 06:45 | DI.US_ITS ---
Exam(s) US CAROTID EXAM: US CAROTID CLINICAL HISTORY: evaluate carotids; acute balance issues; tia,r26.89,g45.9,e78.1,ex smoker. TECHNIQUE: Ultrasound carotids performed using grayscale, color-flow, and spectral Doppler imaging. COMPARISON: No exams were available for comparison FINDINGS: RIGHT CAROTID ARTERY: Plaque: Minimal at bulb. Velocity elevation: None. LEFT CAROTID ARTERY: Plaque: Minimal at bulb. Velocity elevation: None. VERTEBRAL ARTERIES: Antegrade flow. Measurements: R Bulb: 90.6cm/s PS / 28.4cm/s ED R CCA: 84.1cm/s PS / 33.6cm/s ED R ECA: 128.3cm/s PS / 21.6cm/s ED R ICA Prox: 102.1cm/s PS / 34.6cm/s ED R ICA Mid: 113cm/s PS / 36.8cm/s ED R ICA Distal: 128.3cm/s PS /52.1cm/s ED R Vert: 73.3cm/s PS / 32.2cm/s ED R SVR: 1.5 R DVR: 1.6 L Bulb: 85.5cm/s PS / 21.2cm/s ED L CCA: 96.2cm/s PS / 23.4cm/s ED L ECA: 113.4cm/s PS / 19.1cm/s ED L ICA Prox: 149.8cm/s PS / 44.8cm/s ED L ICA Mid: 142.7cm/s PS / 57cm/s ED L ICA Distal: 147cm/s PS / 52.7cm/s ED L Vert: 79.9cm/s PS / 26.4cm/s ED L SVR: 1.6 L DVR: 1.9 IMPRESSION: No evidence for hemodynamically significant carotid stenosis. Criteria for Carotid Stenosis: Normal: ICA PSV <125 cm/s no plaque or intimal thickening is visible. <50% stenosis: ICA PSV <125 cm/s and plaque or intimal thickening is visible. 50-69% stenosis: ICA PSV is 125-250 cm/s and plaque is visible. >70% stenosis to near occlusion: ICA PSV >250 cm/s with visible plaque and luminal narrowing. DATA REPOSITORY:
== END ==
PROVIDERS: PCP Family Medicine; Visit Provider Student in an Organized Health Care Education/Training Program
DX: R26.89 Other abnormalities of gait and mobility (principal); G45.9 Transient cerebral ischemic attack, unspecified; E78.1 Pure hyperglyceridemia; Z87.891 Personal history of nicotine dependence
CPT/HCPCS: 93880

== ENCOUNTER → 2022-04-20 01:29 | Outpatient (CLI) | payer MEDICAID, SELFPAY ==
--- NOTE | 2022-04-20 08:00 | DI.MRI_ITS ---
Exam(s) MR BRAIN WO EXAM: MR BRAIN WO CLINICAL HISTORY: Ongoing dizziness without resolution with PT R26.89 ABNL GAIT MOBILITY TECHNIQUE: Multiplanar multisequence MRI of the brain was performed. COMPARISON: MR MR ORBIT FACIAL NECK WO/W from 09/19/2019 MR MR BRAIN WO from 07/25/2021 FINDINGS: . The examination is limited due to patient motion artifact. VENTRICLES AND EXTRA AXIAL SPACES: Normal in size and morphology for the patient's age. MIDLINE SHIFT: None. CEREBRAL PARENCHYMA: No focus of restricted diffusion to suggest acute infarct. No space-occupying le marita identified. HEMORRHAGE: None. BRAINSTEM/CEREBELLUM: Normal. CALVARIUM: Normal. VISUALIZED PARANASAL SINUSES/MASTOIDS:Clear. [place]: Normal flow void. There is a 5 mm flow void adjacent to the left internal carotid a rtery (series 10302 image 11). This may represent an aneurysm. PIT[place] GL[place]: Unremarkable. OTHER FINDINGS: None. IMPRESSION: 1. 5 mm flow void adjacent to the left internal carotid arteries suspicious for an aneurysm. MRA or CT angiography of the brain is recommended for further evaluation. 2. Otherwise unremarkable MRI of the brain for the patient's age. DATA REPOSITORY:
== END ==
PROVIDERS: PCP Family Medicine; Visit Provider Registered Nurse Maternal Newborn
DX: R42 Dizziness and giddiness (principal); R26.89 Other abnormalities of gait and mobility; Z86.73 Personal history of transient ischemic attack (TIA), and cerebral infarction without residual deficits
CPT/HCPCS: 70551

== ENCOUNTER → 2022-04-28 01:07 | Outpatient (CLI) | payer MEDICAID, SELFPAY ==
--- OUTSIDE RECORDS SUMMARY | 2022-04-28 01:09 | XMS_ITS | Encounter Summary ---
:1960 Author Organization [facility] [place] [address] Care Team Providers Name Role Phone Hai Lopez DO Primary Care Provider Encounter Details Date Type Department Care Team Description 09/27/2018 Orders Only [facility] at [place] bethany Quigley MD [facility] [address] [place] [address] [place] [address] [phone] Social History Tobacco Use Types Packs/Day Years Used Date Current Every Day Smoker Cigarettes 0.25 40 Smokeless Tobacco: Never Used Comments: down to 5 cigs. Alcohol Use Standard Drinks/Week Comments No 0 (1 standard drink = 0.6 oz pure alcoho l) Sex Assigned at Date Recorded Not on file documented as of this encounter Plan of Treatment Upcoming Encounters Date Type Specialty Care Team Description 08/28/2022 Laboratory Appointment Lab 08/28/2022 Appointment Radiology Yuliana Hernandez MD [facility] [place] [address] (Wo rk) 08/28/2022 Office Visit Gastroenterology Andrew Smith PA [facility] [address] [place] [address] (Wo rk) documented as of this encounter Visit Diagnoses Not on filedocumented in this encounter Care Teams Automation Sales Manager Relationship Specialty Start Date End Date Hai Lopez DO PCP - General Family Medicine 10/10/[address] [place] [address] documented as of this encounter
--- OUTSIDE RECORDS SUMMARY | 2022-04-28 01:09 | XMS_ITS | Encounter Summary ---
:1960 Author Organization [facility] Address [address] [place] [address] Care Team Providers Name Role Phone Hai Gallegos MD Primary Care Provider Encounter Details Date Type Department Care Team Description 03/28/2012 Results Only [facility] Juve Dawkins MD Laboratory Services - [address] [place] [address] [place] [address] [phone] Social History Tobacco Use Types Packs/Day Years Used Date Never Assessed Sex Assigned at Date Recorded Not on file documented as of this encounter Plan of Treatment Not on filedocumented as of this encounter Procedures Procedure Name Priority Date/Time Associated Diagnosis Comme nts SURGICAL PATHOLOGY Routine 03/28/2012 0:00 EDT Re sults for this procedure are i n the results section. documented in this encounter Results SURGICAL PATHOLOGY (03/28/2012 0:00 EDT) Pathology Report: SURGICAL PATHOLOGY REPORT [facility] Reports generated via electronic interface contain santiago ginal data; LAB however they are lacking the format of the original re port. Caution should be taken when reading/interpreting unfo rmatted reports. Name: ? MARY BETH ANTUNEZ ? Accession #: ? [id number] ? : ? 1960 (Age: 51) ??F ? Collect Date: ? 03/28/2012 ? Location: ? [facility] ? Receive Date: ? 03/28/20 12 ? Provider: JUVE DAWKINS MD Copy to: HAI GALLEGOS MD ? Final Pathologic Diagnosis: ? Endometrium, curettage: 1. ?Rare fragments of disso ciated inactive endometrium with tubal metaplasia and extensive stromal crush artifact. ??See comment. 2. ? Benign endocervical glands and abundant fragments of mature appearing squamous epithelium. Comment: ? Deeper levels have been examined. ??(Dr. Zimmerman )/[facility] Document reviewed and electronically signed by: CHARMAINE ZIMMERMAN MD Report ??Date: 04/02/2012 16:41 By the signature above, the attending physician certif ies that he/she has personally conducted a gross and/or microscopic examin ation of the described specimens and rendered or confirmed the above diagnosi s. Specimen(s) Received: ? Endometrial curettings Clinical History: ? Postmenopausal bleeding; clinical diagnosis cod e: 627.1 Gross Description: ? Received in formalin labelled Mary Beth Antunez and A-endometrial curettings is a 1.2 x 0.6 x 0.1 cm aggr egate of leonardo and white, focally brown, soft tissue. ??The specimen is submitted entirely in o ne cassette. ??(Yuriy Eugene/rakesh End of Report Specimen Performing Organization Address City/State/ZIP Code Phon e Number [facility] [address] [place] [address] SERVICES [facility] [address] [place] [address] documented in this encounter Visit Diagnoses Not on filedocumented in this encounter Care Teams Industrial Safety And Health Manager Relationship Specialty Start Date End Date Hai Gallegos MD PCP - General 08/12/[address] [place] [place] [address] documented as of this encounter
--- OUTSIDE RECORDS SUMMARY | 2022-04-28 01:09 | XMS_ITS | Encounter Summary ---
:1960 Author Organization [facility] Address [address] [place] [address] Care Team Providers Name Role Phone Hai Gallegos MD Primary Care Provider Encounter Details Date Type Department Care Team Description 11/19/2020 Lab Requisition [facility] Outr Resulting Lab, Pathology & Laboratory Provider [facility] [address] [place], [place] [address] Social History Tobacco Use Types Packs/Day Years Used Date Never Assessed Sex Assigned at Date Recorded Not on file documented as of this encounter Plan of Treatment Not on filedocumented as of this encounter Procedures Procedure Name Priority Date/Time Associated Diagnosis Comme nts LYME AB Routine 11/19/2020 11:34 EDT Results for this procedure are i n the results section . documented in this encounter Results LYME AB (11/19/2020 11:34 EDT) Pathologist Sig nature Lyme Ab NegativeComment: New Negative [facility] 3rd generation assay LABORATORY SERVICES in use 12/17/2019 Specimen Blood - Venous blood (substance) Performing Organization Address City/State/ZIP Code Phon e Number [facility] [address] [place] [address] SERVICES documented in this encounter Visit Diagnoses Not on filedocumented in this encounter Care Teams Golf Club Weigher Relationship Specialty Start Date End Date Hai Gallegos MD PCP - General 08/12/10 [address] [place], [place] [id number] documented as of this encounter
--- OUTSIDE RECORDS SUMMARY | 2022-04-28 01:09 | XMS_ITS | Clinical Summary ---
:1960 Author Organization [facility] Address [address] [place] [address] Care Team Providers Name Role Phone Hai Gallegos MD Primary Care Provider Social History Tobacco Use Types Packs/Day Years Used Date Never Assessed Sex Assigned at Date Recorded Not on file Plan of Treatment Not on file Insurance Payer Benefit Plan Subscriber ID Effective Phone Address Typ e / Group Dates MEDICAID ACO MEDICAID ACO [id number] 2020-Pres [phone] [address] [place] [address], [place] [address] Care Teams Multifocal Lens Assembler Relationship Specialty Start Date End Date Hai Gallegos MD PCP - General 08/12/10 [address] [place], [place] [id number]
--- OUTSIDE RECORDS SUMMARY | 2022-04-28 01:09 | XMS_ITS | Encounter Summary ---
:1960 Author Organization [facility] Address [address] [place] [address] Care Team Providers Name Role Phone Unavailable Primary Care Provider Unavailable Encounter Details Date Type Department Care Team Description 05/21/2001 Results Only [facility] - Doreen George son, Glenny Quigley, ANALYTICAL RESEARCH CHEMIST conversion [address] [place] [phone] (Wo rk) Social History Tobacco Use Types Packs/Day Years Used Date Never Assessed Sex Assigned at Date Recorded Not on file documented as of this encounter Plan of Treatment Not on filedocumented as of this encounter Procedures Procedure Name Priority Date/Time Associated Diagnosis Comme nts CYTOPATHOLOGY Routine 05/21/2001 0:00 EST Results for this procedure are i n the results section . documented in this encounter Results CYTOPATHOLOGY (05/21/2001 0:00 EST) Pathology Report: CYTOPATHOLOGY REPORT [facility] Reports generated via electronic interface contain santiago ginal data; however they are lacking the format of the original re port. Caution should be taken when reading/interpreting unfo rmatted reports. Name: ? MARY BETH HICKEY ? Accession #: ? [id number] : ? 1960 (Age: 40) ??F ?Collect Date: ? 05/09 Location: ? [facility] ? Receive Date : ? 05/23/2001 Provider: ?GLENNY FELICIANO ANALYTICAL RESEARCH CHEMIST Copy to: ? Specimen/Source: ?ThinPrep Pap Test, Cervix/ Endocervix Last Menstrual Period: ? 05/11/01 ? SPECIMEN ADEQUACY ? Satisfactory for evaluation but limited by scan t squamous epithelial component secondary to excessive blood. GENERAL CATEGORIZATION ? Within Normal Limits ? Document reviewed and electronically signed by: ? DARIUSZ Hirsch(ASCP) ? Report Date: ??05/29/2001 07:46 End of Report Specimen Performing Organization Address City/State/ZIP Code Phon e Number [facility] [address] [place] [address] SERVICES ED [facility] [address] [place] [address] documented in this encounter Visit Diagnoses Not on filedocumented in this encounter
--- OUTSIDE RECORDS SUMMARY | 2022-04-28 01:09 | XMS_ITS | Encounter Summary ---
:1960 Author Organization [facility] Address [facility] [place] [address] Care Team Providers Name Role Phone Hai Lopez Corey MOORE Primary Care Provider Encounter Details Date Type Department Care Team Description 07/26/2021 Orders Only [facility]ology at [facility] Perla Hernandez, BUI (nonalcoholic steatohep atitis); [facility] Lisa soto MD [place] of [place] [phone] [facility] [phone] [place] [address] Social History Tobacco Use Types Packs/Day Years [...] 08/28/2022 Laboratory Appointment Lab 08/28/2022 Appointment Radiology Perla Hernandez MD [facility] [address] [place] [address] (Wo rk) 08/28/2022 Office Visit Gastroenterology Andrew Smith PA [facility] [address] [place] [address] (Wo rk) documented as of this encounter Results US Abdomen Limited Hepatology Protocol (02/23/2022 9:51 AM EDT) Anatomical Region Laterality Modality Abdomen Ultrasound Specimen (Source) Anatomical Collection Method Collection Time Re ceived Time Location / / Volume Laterality 02/23/2022 9:49 AM EDT Impressions 02/23/2022 3:03 PM EDT The liver has coarse echotexture and in creased echogenicity consistent with hepatic steatosis. There are no focal l esions. No cholelithiasis or evidence of cholec ystitis. No intra or extrahepatic biliary ductal dilation. There is no ascites present four-quadra nt view. I have personally reviewed the image(s) and the resident's interpretation and agree with the findings, Bernardo Silva MD at 02/23/2022 12:19 PM Electronically signed by: Bernardo guillaume MD, [facility] ([phone]), at 12:19 PM Thank you for letting us participate in the care of this patient. If you are a [facility] er and have any questions regarding this report, please contact the number above. For patients who have ques tions, please contact the [facility] professio nal that requested your imaging first. ?Bernardo Silva, Staff Physician Electronically Signed Final Report ?? 03:03 pm Narrative 02/23/2022 3:03 PM EDT Abdominal ? (Signed Final 02/23/2022 03:03 pm) PATIENT INFO: ID #: ? [id number] ?: ??[birth year] (61 yrs)(F) Name: ? MARY BETH ANTUNEZ ?Visit Date: 02/23/2022 09:49 am PERFORMED BY: Performed By: ? Sagrario Munoz RDMS Attending: ?Ruth Silva MD Referred By: ?PERLA HERNANDEZ Location: ? [facility] Hep[facility] Protocol - Abdo mia ?[id number] Limited Survey Single Organ or Quadrant - [id number] INDICATIONS: Hep C, F3, HCC screening COMPARISON: US: Hepatology 08/21/19 ------ LIVER: ------ Right Lobe Length: ?? 17.4 ?? cm Echogenicity/Echotexture: ?? Slightly i ncreased Portal Veins: ?Patent Comment: ?No focal lesion seen. GALLBLADDER: Cholelithiasis: ?No stones visua lized Wall Thickness: ?2. mm Focal Tenderness: ?Negative sonogra phic Becerril's sign BILIARY TRACT: Intrahepatic Ducts: ?? Normal Extrahepatic Ducts: ?? Normal Common Duct Size: ? 3.0 ? mm FLUID COLLECTIONS: Ascites not present on 4 quadrant evalu ation. Procedure Note Bernardo Silva MD - 02/23/2022Format ting of this note might be different from the original. Abdominal (Signed Final 02/23/2022 03:0 3 pm) PATIENT INFO: ID #: [id number] : 58 (61 y rs)(F) Name: MARY BETH ANTUNEZ Visit Date: 02/23 09:49 am PERFORMED BY: Performed By: Sagrario Munoz RDMS Attending: Bernardo Silva MD Referred By: PERLA HERNANDEZ Location: [facility] SERVICE(S) PROVIDED: [facility] - Hepatology Protocol - Filipe bellamy [id number] Limited Survey Single Organ or Quadrant - [id number] INDICATIONS: Hep C, F3, HCC screening COMPARISON: US: Hepatology 08/21/19 ------ LIVER: ------ Right Lobe Length: 17.4 cm Echogenicity/Echotexture: Slightly incr eased Portal Veins: Patent Comment: No focal lesion seen. GALLBLADDER: Cholelithiasis: No stones visualized Wall Thickness: 2. mm Focal Tenderness: Negative sonographic Ebcerril's sign BILIARY TRACT: Intrahepatic Ducts: Normal Extrahepatic Ducts: Normal Common Duct Size: 3.0 mm FLUID COLLECTIONS: Ascites not present on 4 quadrant evalu ation. IMPRESSION The liver has coarse echotexture and in creased echogenicity consistent with hepatic steatosis. There are no focal l esions. No cholelithiasis or evidence of cholec ystitis. No intra or extrahepatic biliary ductal dilation. There is no ascites present four-quadra nt view. I have personally reviewed the image(s) and the resident's interpretation and agree with the findings, Bernardo Silva MD at 02/23/2022 12:19 PM Electronically signed by: Bernardo guillaume MD, Rad[facility] ([phone]), at 12:19 PM Thank you for letting us participate in the care of this patient. If you are a [facility] er and have any questions regarding this report, please contact the number above. For patients who have ques tions, please contact the [facility] professio nal that requested your imaging first. Bernardo Silva, Staff Physician Electronically Signed Final Report 02/23 03:03 pm Perla Hernandez MD IMG US GEN ORDERABLES documented in this encounter Visit Diagnoses Diagnosis BUI (nonalcoholic steatohepatitis) Other chronic nonalcoholic liver disease History of hepatitis C Personal history of other infectious and parasitic disease BUI (nonalcoholic steatohepatitis) Other chronic nonalcoholic liver disease History of hepatitis C Personal history of other infectious and parasitic disease documented in this encounter Care Teams Retail General Manager Relationship Specialty Start Date End Date Hai Lopez DO PCP - General Family Medicine 10/10/[address] [place] [address] documented as of this encounter
--- OUTSIDE RECORDS SUMMARY | 2022-04-28 01:09 | XMS_ITS | Encounter Summary ---
:1960 Author Organization [facility] Address [address] [place] [address] Care Team Providers Name Role Phone Unavailable Primary Care Provider Unavailable Encounter Details Date Type Department Care Team Description 04/04/2000 Results Only [facility] - Doreen George son, Glenny L, POSTDOCTORAL RESEARCH ASSOCIATE conversion [address] [place] [phone] (Wo rk) Social History Tobacco Use Types Packs/Day Years Used Date Never Assessed Sex Assigned at Date Recorded Not on file documented as of this encounter Plan of Treatment Not on filedocumented as of this encounter Procedures Procedure Name Priority Date/Time Associated Diagnosis Comme nts CYTOPATHOLOGY Routine 04/04/2000 0:00 EDT Results for this procedure are i n the results section . documented in this encounter Results CYTOPATHOLOGY (04/04/2000 0:00 EDT) Pathology Report: CYTOPATHOLOGY REPORT [facility] Reports generated via electronic interface contain santiago ginal data; however they are lacking the format of the original re port. Caution should be taken when reading/interpreting unfo rmatted reports. Name: ? MARY BETH HICKEY ? Accession #: ? [id number] : ? 1960 (Age: 39) ??F ?Collect Date: ? 03/10 Location: ? [facility] ? Receive Date : ? 04/06/2000 Provider: ?GLENNY FELICIANO POSTDOCTORAL RESEARCH ASSOCIATE Copy to: ? Specimen/Source: ?ThinPrep Pap Test, Cervix Last Menstrual Period: ? 03/10/00 Previous Gynecologic Pathology: ? Yes ? SPECIMEN ADEQUACY ? Satisfactory for eval uation but limited by an absence of a transformation zone component. GENERAL CATEGORIZATION ? Within Normal Limits ? Document reviewed and electronically signed by: ? Laurence Singleton, ??CT(ASCP) ? Report Date: ??04/10/2000 11:46 End of Report Specimen Performing Organization Address City/State/ZIP Code Phon e Number [facility] [address] [place] [address] SERVICES ED [facility] [address] [place] [address] documented in this encounter Visit Diagnoses Not on filedocumented in this encounter
--- OUTSIDE RECORDS SUMMARY | 2022-04-28 01:09 | XMS_ITS | Encounter Summary ---
:1960 Author Organization [facility] [place] [address] Care Team Providers Name Role Phone John Hai Nicole DO Primary Care Provider Encounter Details Date Type Department Care Team Description 02/23/2022 Hospital Encounter Ultrasound at [facility] Perla Hernandez, BUI (nonalcoholic steatohep atitis); [facility] History of hepatitis C [facility] [phone] [place], [place] [phone] [facility] Social History Tobacco Use Types Packs/Day Years Used Date Current Every Day Smoker Cigarettes 0.25 40 Smokeless Tobacco: Never Used Comments: down to 5 cigs. Alcohol Use Standard Drinks/Week Comments No 0 (1 standard drink = 0.6 oz pure alcoho l) Sex Assigned at Date Recorded Not on file documented as of this encounter Medications at Time of Discharge Medication Sig Dispensed Refills Start Date End Date LORazepam (Ativan) 1 TK 1 T PO TID PRA 0 04/24/20 19 mg Tablet PARoxetine (Paxil) 20 TK 1 T PO D 0 06/26/2019 mg Tablet BD ULTRA-FINE MINI PEN USE DAILY WITH LANTUS 0 NEEDLE 31 gauge x 3/16 Needle JARDIANCE 25 mg Tablet 0 09/11/2018 insulin lispro Inject 2-20 Units 0 (HUMALOG) Insulin Pen subcutaneously as needed. LANTUS SOLOSTAR U-100 inject 52 units 0 9 INSULIN pen subcutaneously once daily CHANTIX 0.5 mg Tablet take 1 tablet by mouth 0 twice a day ONETOUCH ULTRA TEST 0 01/18/2015 Strip ONE TOUCH DELICA 33 0 01/18/2015 gauge Misc lisinopril Take 20 mg by mouth 0 03/21/2015 (PRINIVIL;ZESTRIL) 20 daily. mg Tablet omeprazole (PRILOSEC) Take 40 mg by mouth 0 03/25 40 mg Capsule, Delayed daily. Release(E.C.) albuterol (PROVENTIL Inhale 2 puffs into the 0 HFA;VENTOLIN lungs every 4 hours as HFA;PROAIR) 90 needed for Wheezing. Use mcg/actuation HFA with spacer Aerosol Inhaler documented as of this encounter Plan of Treatment Upcoming Encounters Date Type Specialty Care Team Description 08/28/2022 Laboratory Appointment Lab 08/28/2022 Appointment Radiology Perla Hernandez MD [facility] [address] [place] [address] (Wo rk) 08/28/2022 Office Visit Gastroenterology Andrew Smith PA [facility] [address] [place] [address] (Wo rk) documented as of this encounter Procedures Procedure Name Priority Date/Time Associated Comments Diagnosis US ABDOMEN LIMITED Routine 02/23/2022 9:51 AM BUI (nonalcohol ic Results for this HEPATOLOGY PROTOCOL EDT steatohepati tis) procedure are in History of the results hepatitis C section. documented in this encounter Results US Abdomen Limited Hepatology [...] Electronically signed by: Bernardo guillaume MD, Rad[facility] ([phone]), at 12:19 PM Thank you for letting us participate in the care of this patient. [facility] a [facility] and have any questions regarding this report, please contact the number above. For patients who have ques tions, please contact the [facility] professio nal that requested your imaging first. ?Bernardo Silva, Staff Physician Electronically Signed Final Report ?? 03:03 pm Narrative 02/23/2022 3:03 PM EDT Abdominal ? (Signed Final 02/23/2022 03:03 pm) PATIENT INFO: ID #: ? [id number] ?: ??[birth year] (61 yrs)(F) Name: ? MARY BETH Quigley TULIO ?Visit Date: 02/23/2022 09:49 am PERFORMED BY: Performed By: ? Sagrario Munoz RDMS Attending: ?Ruth Silva MD Referred By: ?PERLA HERNANDEZ Location: ? [facility]ICE[facility] - Hepatology Protocol - Filipe bellamy ?[address] Limited Survey Single Organ or Quadrant - [id number] INDICATIONS: Hep C, F3, HCC screening COMPARISON: [...] 03:0 3 pm) PATIENT INFO: ID #: [id number] : 58 (61 y rs)(F) Name: MARY BETH Quigley DENICEDORI Visit Date: 02/23 09:49 am PERFORMED BY: Performed By: Sagrario Munoz RDMS Attending: Bernardo Silva MD Referred By: PERLA HERNANDEZ Location: [facility] SERVICE(S) [facility]: [facility] - Hepatology Protocol - Filipe bellamy [address] Limited Survey Single Organ or Quadrant - [id number] INDICATIONS: Hep C, F3, HCC screening COMPARISON: US: Hepatology 08/21/19 ------ LIVER: ------ Right Lobe Length: 17.4 cm Echogenicity/Echotexture: Slightly incr eased Portal Veins: Patent Comment: No focal lesion seen. GALLBLADDER: Cholelithiasis: No stones visualized Wall Thickness: 2. mm Focal Tenderness: Negative sonographic Becerril's sign BILIARY TRACT: Intrahepatic Ducts: Normal Extrahepatic [...] Electronically signed by: Bernardo guillaume MD, Rad[facility] ([phone]), at 12:19 PM Thank you for letting us participate in the care of this patient. If you are a [facility] and have any questions regarding this report, please contact the number above. For patients who have ques tions, please contact the [facility] professio nal that requested your imaging first. Bernardo Silva, Staff Physician Electronically Signed Final Report 02/23 03:03 pm Perla Hernandez MD IMG GEN ORDERABLES documented in this encounter Visit Diagnoses Diagnosis BUI (nonalcoholic steatohepatitis) Other chronic nonalcoholic liver disease History of hepatitis C Personal history of other infectious and parasitic disease documented in this encounter Care Teams Electric Serviceman Relationship Specialty Start Date End Date Hai Lopez DO PCP - General Family Medicine 10/10/17 [address] [place] [address] documented as of this encounter
--- OUTSIDE RECORDS SUMMARY | 2022-04-28 01:09 | XMS_ITS | Encounter Summary ---
:1960 Author Organization [facility] Address [address] [place] [address] Care Team Providers Name Role Phone Hai Gallegos MD Primary Care Provider Encounter Details Date Type Department Care Team Description 02/22/2016 Results Only [facility] Ryan NP [phone] [address] [place] [address] (Wo rk) Social History Tobacco Use Types Packs/Day Years Used Date Never Assessed Sex Assigned at Date Recorded Not on file documented as of this encounter Plan of Treatment Not on filedocumented as of this encounter Procedures Procedure Name Priority Date/Time Associated Diagnosis Comme nts PAP TEST- RESULT Routine 02/22/2016 0:00 EDT Resu lts for this ONLY procedure are i n the results section. documented in this encounter Results PAP TEST- RESULT ONLY (02/22/2016 0:00 EDT) Pathology Report: CYTOPATHOLOGY REPORT [facility] Reports generated via electronic interface contain santiago ginal data; SERVICES however they are lacking the format of the original re port. Caution should be taken when reading/interpreting unfo rmatted reports. Name: ? MARY BETH ANTUNEZ ? Accession #: ? [id number] ? : ? 1960 (Age: 55 ) ??F ?Collect Date: ? 02/22/2016 ? Location: ? [facility] ? Receive Date: ? 02/23/20 16 ? Provider: BROOKLYN BARKER LIME KILN WORKER HELPER Copy to: ? Final Report SPECIMEN ADEQUACY ? Satisfactory for Evaluation - transformation zone component absent GENERAL CATEGORIZATION ? Negative for Intraepithelial Lesion or Malignan cy ?? Other: Additional clinical information: 6 to 7 years ? ?last pap Specimen/Source: ??Pap Test, Endocervix, ThinPrep Imag ing System with manual evaluation Document reviewed and electronically signed by: ? Abdulaziz Tay, DARIUSZ(ASCP) ? Report ??Date: 02/28/2016 14:46 HPV with Pap Test ? Date Ordered: ? 02/28/2016 ? Status: ?? Signed Out ?Date Complete: ? 02/29/2016 ? By: ??Sy stem Interface ? Date Reported: ? 02/29/2016 ? Interpretation RESULT: Negative for HPV. No E6 or E7 mRNA is detected from HPV types 16,18,31,3 3,35, 39,45,51,52,56,58,59,66, and 68 by aerotriangulation specialist media miguelina amplification. Comments Document reviewed and electronically signed by: ? System Interface ? Report date: 02/29/2016 By the signature above, the attending physician certif ies that he/she has personally conducted a gross and/or microscopic examin ation of the described specimens and rendered or confirmed the above diagnosi s. End of Report Specimen Performing Organization Address City/State/ZIP Code Phon e Number [facility] [address] [place] [address] SERVICES documented in this encounter Visit Diagnoses Not on filedocumented in this encounter Care Teams Systems Test Technician Relationship Specialty Start Date End Date Hai Gallegos MD PCP - General 08/12/[address] [place] [address] documented as of this encounter
--- OUTSIDE RECORDS SUMMARY | 2022-04-28 01:09 | XMS_ITS | Encounter Summary ---
:1960 [place] [address] Care Team Providers Name Role Phone JohnHai DO Primary Care Provider Encounter Details Date Type Department Care Team Description 10/02/2018 Orders Only Weight and Wellness at [place], [place] ass [address] MAT PACKER body mass index (BMI) 18 [facility] 33.0 [place] 33[place]9 [place] [address] [address] adult, unspecified [phone] [place], [place] [address] obesity type, unspecified whe ther (Work) serious comorbidity present Social History Tobacco Use Types Packs/Day Years [...] Lab 08/28/2022 Appointment Radiology Yuliana Hernandez MD [facility] [address] [place] [address] (Wo rk) 08/28/2022 Office Visit Gastroenterology Andrew Smith PA [facility] [address] [place] [place] [address] (Wo rk) documented as of this encounter Visit Diagnoses Diagnosis Class 1 obesity with body mass index (BM I) of 33.0 to 33.9 in adult, unspecified obesity type, unspecified whether seriou s comorbidity present documented in this encounter Care Teams Irs Agent Relationship Specialty Start Date End Date Hai Lopez DO PCP - General Family Medicine 10/10/[address] [place] [address] documented as of this encounter
--- OUTSIDE RECORDS SUMMARY | 2022-04-28 01:09 | XMS_ITS | Encounter Summary ---
:1960 Author Organization [place] [address] Care Team Providers Name Role Phone ChengHai riley DO Primary Care Provider Encounter Details Date Type Department Care Team Description 02/12/2019 Laboratory Appointment Lab 3L [facility] Hepatitis C virus [facility] infection without [facility] hepatic c taylor, Drive unspecified [place], [place] chronicity [phone] Social History Tobacco Use Types Packs/Day Years [...] Lab 08/28/2022 Appointment Radiology Yuliana Hernandez MD [facility] [address] [place] [address] (Wo rk) 08/28/2022 Office Visit Gastroenterology Andrew Smith PA [facility] [address] [place] [address] (Wo rk) documented as of this encounter Procedures Procedure Name Priority Date/Time Associated Comments Diagnosis HEMOGRAM Routine 02/12/2019 10:30 Hepatitis C virus Result s for this AM EDT infection without procedure are in hepatic coma, the results unspecified section. chronicity DIFFERENTIAL, Routine 02/12/2019 10:30 Hepatitis C virus Resul ts for this AUTOMATED AM EDT infection without procedure are in hepatic coma, the results unspecified section. chronicity PROTHROMBIN TIME Routine 02/12/2019 10:30 Hepatitis C virus Re sults for this AM EDT infection without procedure are in hepatic coma, the results unspecified section. chronicity CBC (WITH DIFF) Routine 02/12/2019 10:30 Hepatitis C virus AM EDT infection without hepatic coma, unspecified chronicity COMPREHENSIVE Routine 02/12/2019 10:30 Hepatitis C virus Resul ts for this METABOLIC PANEL AM EDT infection without procedu re are in (NON-FASTING) hepatic coma, the results unspecified section. chronicity documented in this encounter Results Differential, Automated (02/12/2019 10:30 AM EDT) P athologist Signature Neutrophils % 51.8 % [facility] Neutr Abs (ANC) 3.93 1.70 - [facility] 6.10 [facility] x10(3)/[facility] LABORATORY Lymphocytes % 36.4 % [facility] Lymphocytes Abs 2.8 0.9 - 3.2 [facility] x10(3)/[facility] LABORATORY Monocytes % 7.5 % [facility] Monocyte Abs 0.6 0.3 - 0.9 [facility] x10(3)/[facility] LABORATORY Eosinophils % 3.0 % [facility] Eosinophils Abs 0.2 0.0 - 0.4 [facility] x10(3)/[facility] LABORATORY Basophils % 0.9 % [facility] Basophils Abs 0.1 0.0 - 0.1 [facility] x10(3)/[facility] LABORATORY Immature Gran % 0.40 % [facility] Comment: Immature granulocytes(IG's)percentage an d absolute count will include metamyelocytes, myelocytes, and promyelo cytes. Blood smears from CBCs yielding IG's will be scanned manually for concor dance. If this scan disagrees with the automated IG or if promyelocytes are not ed, a manual differential will be performed. Elaina Gran Abs 0.03 0.00 - 0.04 x10(3)/[facility] Specimen Anatomical Collection Method Collection Time Receive d Time (Source) Location / / Volume Laterality Blood specimen 02/12/2019 10:30 9 (specimen) AM EDT 10:46 AM EDT Resulting Agency Comment Spec In Lab Yuliana Hernandez MD HEMATOLOGY ORDERABLES Performing Organization Address City/State/[place] [address] (ABNORMAL) Hemogram (02/12/2019 10:30 AM EDT) Analysis Performed At Patho logist Time Signature WBC 7.6 4.0 - 9.5 [facility] x10(3)/[facility] LABORATORY RBC 5.67 (H) 4.00 - [facility] 5.21 [facility] x10(6)/[facility] LABORATORY Hemoglobin 16.6 (H) 11.7 - [facility] 15.5 gm/dL [facility] Hematocrit 51.3 (H) 35.7 - [facility] 45.8 % [facility] MCV 90.5 82.6 - [facility] 94.4 [facility] LABORATORY MCH 29.3 27.1 - [facility] 32.0 pg [facility] MCHC 32.4 31.7 - [facility] 35.0 gm/dL [facility] Platelets 174 145 - 357 [facility] x10(3)/[facility] LABORATORY RDWSD 45.0 37.0 - [facility] 46.0 [facility] LABORATORY RDWCV 13.4 11.5 - [facility] 14.1 % [facility] LAB[facility]ORY MPV 11.3 7.6 - 12.9 [facility] LABORATORY nRBC % Auto 0.0 % [facility] nRBC Abs Auto 0.000 0.000 - [facility] 0.000 [facility] x10(3)/[facility] LABORATORY Specimen Anatomical Collection Method Collection Time Receive d Time (Source) Location / / Volume Laterality Blood specimen 02/12/2019 10:30 9 (specimen) AM EDT 10:46 AM EDT Resulting Agency Comment Spec In Lab Yuliana Hernandez MD HEMATOLOGY ORDERABLES Performing Organization Address City/State/[place] [address] (ABNORMAL) Comprehensive metabolic panel (non-fasting) (02/12/2019 10:30 AM EDT) P athologist Signature Glucose Lvl 168 65 - 199 [facility] mg/dL [facility] Comment: Diabetes: >=200 mg/dL plus symp toms BUN 26 (H) 8 - 18 mg/dL [facility] Creatinine 0.84 0.70 - 1.20 mg/dL [facility] Sodium 139 135 - 145 mmol/L [facility] Potassium 4.7 3.5 - 5.0 mmol/L [facility] Comment: Please note: ??Patients with WBC >100,00 0 may have falsely elevated Potassium levels. ??For accurate Potassium quantif ication in these patients send serum separator tube (gold top) for subsequent determinations. ??Contact the Clinical Chemistry Laboratory if there are any qu estions. Chloride 102 98 - 107 mmol/L [facility] CO2 27 22 - 31 mmol/L [facility] Anion Gap 10 5 - 15 mmol/L [facility] Calcium 9.5 8.5 - 10.5 mg/dL [facility] Total Protein 7.7 6.1 - 8.0 gm/dL [facility] Albumin 4.7 3.2 - 5.2 gm/dL [facility] AST 18 0 - 30 unit/L [facility] ALT 16 0 - 30 unit/L [facility] Alk Phos 95 35 - 105 unit/L [facility] Total Bilirubin 0.4 0.2 - 1.3 mg/dL [facility] Estimated GFR 76 >=60 mL/min/1.73 m?? [facility] Comment: The eGFR was calculated using the CKD-EP I equation. As with all creatinine based estimates of kidney function, eGFR values calculated with the CKD-EPI equation are not accurate in patients wi th acute kidney failure, extremes of body mass or the acutely ill. http://[facility] eGFR 88 >=60 mL/min/1.73 m?? [facility] Comment: The eGFR was calculated using the CKD-EP I equation. As with all creatinine based estimates of kidney function, eGFR values calculated with the CKD-EPI equation are not accurate in patients wi th acute kidney failure, extremes of body mass or the acutely ill. http://[facility] Specimen Anatomical Collection Method Collection Time Receive d Time (Source) Location / / Volume Laterality Blood specimen 02/12/2019 10:30 9 (specimen) AM EDT 10:46 AM EDT Resulting Agency Comment Spec In Lab Yuliana Hernandez MD CHEMISTRY ORDERABLES Performing Organization Address City/[facility]/[place] [address] Prothrombin Time (02/12/2019 10:30 AM EDT) P athologist Signature PT 10.9 9.4 - 12.5 [facility] LABORATORY INR 1.0 [facility] Comment: An INR <2.0 indicates adequate procoagul ant activity for hemostasis in most patients without underlying bleeding dis orders, though the INR may not adequately reflect hemostatic capacity i n patients with liver disease and synthetic impairment. The recommended ta rget INR range for therapeutic anticoagulation is 2.0 ? 3.0 for most applications, though lower and higher ranges may be appropriate depending on c linical circumstances. Specimen Anatomical Collection Method Collection Time Receive d Time (Source) Location / / Volume Laterality Blood specimen 02/12/2019 10:30 9 (specimen) AM EDT 10:46 AM EDT Resulting Agency Comment Spec In Lab Yuliana Hernandez MD HEMATOLOGY ORDERABLES Performing Organization Address City/[facility]/ZIP [place] [address] documented in this encounter Visit Diagnoses Diagnosis Hepatitis C virus infection without hepa tic coma, unspecified chronicity documented in this encounter Care Teams Special Ed Assistant Relationship Specialty Start Date End Date Hai Lopez DO PCP - General Family Medicine 10/10/[address] [place] [place] [address] documented as of this encounter
--- OUTSIDE RECORDS SUMMARY | 2022-04-28 01:09 | XMS_ITS | Encounter Summary ---
:1960 Author Organization [place] [address] Care Team Providers Name Role Phone Hai Lopez Corey MOORE Primary Care Provider Encounter Details Date Type Department Care Team Description 02/23/2022 Orders Only Gastroenterology at [facility] Yuliana Hernandez, BUI (nonalcoholic [facility] Lisa soto MD steatohepatitis) [place] [address] [facility] [phone] [place] [address] Social History Tobacco Use Types Packs/Day Years [...] Lab 08/28/2022 Appointment Radiology Yuliana Hernandez MD [facility] [address] [place] [address] (Wo rk) 08/28/2022 Office Visit Gastroenterology Andrew Smith PA [facility] [address] [place] [address] (Wo rk) documented as of this encounter Results AFP tumor marker (02/23/2022 8:38 AM EDT) athologist Signature AFP <1.9 <=8.3 ng/mL [facility] Comment: This result was generated using a Carl[employer] Jim immunoassay. ??Results obtained from other methods or manufacturers tony ot be used interchangeably with this method. Specimen Anatomical Collection Method Collection Time Receive d Time (Source) Location / / Volume Laterality Blood 02/23/2022 8:38 AM 2 8:49 EDT AM EDT Resulting Agency Comment Spec In Lab Yuliana Hernandez MD CHEMISTRY ORDERABLES Performing Organization Address [facility] Phon e Number [address] Prothrombin Time (02/23/2022 8:38 AM EDT) athologist Signature PT 11.0 9.4 - 12.5 [facility] LABORATORY INR 1.0 [facility] Comment: An INR <2.0 indicates [...] (Source) Location / / Volume Laterality Blood 02/23/2022 8:38 AM 2 8:49 EDT AM EDT Resulting Agency Comment Spec In Lab Yuliana Hernandez MD HEMATOLOGY ORDERABLES Performing Organization Address City/[facility]/ZIP [facility] [place] [address] (ABNORMAL) Comprehensive metabolic panel (non-fasting) (02/23/2022 8:38 AM EDT) athologist Signature Glucose Lvl 162 65 - 199 [facility] mg/dL [facility]ORY Comment: Diabetes: >=200 mg/dL plus symp toms BUN 12 8 - 18 mg/dL [facility] Creatinine 0.69 (L) 0.70 - 1.20 mg/dL [facility] Sodium 139 135 - 145 mmol/L [facility] Potassium 4.1 3.5 - 5.0 mmol/L [facility] Comment: Please note: ??Patients with WBC >100,00 0 may have falsely elevated Potassium levels. ??For accurate Potassium quantif ication in these patients send serum separator tube (gold top) for subsequent determinations. ??Contact the Clinical Chemistry Laboratory if there are any qu estions. Chloride 102 98 - 107 mmol/L [facility] CO2 25 22 - 31 mmol/L [facility] Anion Gap 12 5 - 15 mmol/L [facility] Calcium 9.2 8.5 - 10.5 mg/dL [facility] Total Protein 7.6 6.1 - 8.0 g/dL [facility] Albumin 4.5 3.2 - 5.2 g/dL [facility] AST 25 0 - 30 unit/L [facility] ALT 15 0 - 30 unit/L [facility] Alk Phos 119 (H) 35 - 105 unit/L [facility] Total Bilirubin 0.3 0.2 - 1.3 mg/dL [facility] Estimated GFR 98 >=60 mL/min/1.73 m?? [facility] Comment: This patient's estimated GFR was calcula miguelina using the 2020 CKD-EPI equation. The estimated GFR can vary from the swetha ured GFR by up to 30% in the absence of rapidly changing kidney function. Assess ment of the estimated GFR is not appropriate when creatinine concentratio ns are rapidly changing. For clinical situations in which a more precise estim ate of GFR is necessary, consider alternative methods of GFR estimation lockhart ch as a 24-hour urine creatinine clearance. Assignment of CKD stage 1-5 for patients with an eGFR near the transition point between stages may be based on clinical assessment of muscle mass and symptoms in addition to eGFR. Specimen Anatomical Collection Method Collection Time Receive d Time (Source) Location / / Volume Laterality Blood 02/23/2022 8:38 AM 8:49 EDT AM EDT Resulting Agency Comment Spec In Lab Yuliana Hernandez MD CHEMISTRY ORDERABLES Performing Organization Address City/State/ZIP [place] [address] documented in this encounter Visit Diagnoses Diagnosis BUI (nonalcoholic steatohepatitis) Other chronic nonalcoholic liver disease documented in this encounter Care Teams Claim Rep Relationship Specialty Start Date End Date Hai Lopez DO PCP - General Family Medicine 10/10/17 [facility] [address] [address] documented as of this encounter
--- OUTSIDE RECORDS SUMMARY | 2022-04-28 01:09 | XMS_ITS | Encounter Summary ---
:1960 Author Organization [facility] Address [address] [place] [address] Care Team Providers Name Role Phone Hai Gallegos MD Primary Care Provider Encounter Details Date Type Department Care Team Description 09/09/2020 Lab Requisition [facility] Outr Resulting Lab, Pathology & Laboratory Provider [facility] [address] [place], [place] [address] Social History Tobacco Use Types Packs/Day Years Used Date Never Assessed Sex Assigned at Date Recorded Not on file documented as of this encounter Plan of Treatment Not on filedocumented as of this encounter Procedures Procedure Name Priority Date/Time Associated Diagnosis Comme nts HOLD SST Today 09/09/2020 13:35 Results for this EST procedure are i n the results section. CCP ANTIBODIES Today 09/09/2020 13:35 Results f or this EST procedure are i n the results section. RHEUMATOID FACTOR Today 09/09/2020 13:35 Result s for this EST procedure are i n the results section. documented in this encounter Results HOLD SST (09/09/2020 13:35 EST) Pathologist Sig nature Hold Hold [facility] Specimen Blood - Venous blood (substance) Performing Organization Address [facility] Code Phon e Number [facility] [address] [place] [address] SERVICES RHEUMATOID FACTOR (09/09/2020 13:35 EST) Pathologist Sig nature Rheumatoid Factor <8.6 <12.0 IU/mL [facility] Specimen Blood - Venous blood (substance) Performing Organization Address [facility] Phon e Number [facility] [address] [place] [address] SERVICES CCP ANTIBODIES (09/09/2020 13:35 EST) Pathologist Sig nature CCP Antibodies <2.5 <5.0 U/mL [facility] Specimen Blood - Venous blood (substance) Performing Organization Address City/State/ZIP Code Phon e Number [facility] [address] [place] [address] SERVICES documented in this encounter Visit Diagnoses Not on filedocumented in this encounter Care Teams Umbrella Repairer Relationship Specialty Start Date End Date Hai Gallegos MD PCP - General 08/12/10 [address] [place], [place] [address] documented as of this encounter
--- OUTSIDE RECORDS SUMMARY | 2022-04-28 01:09 | XMS_ITS | Encounter Summary ---
:1960 Author Organization [facility] [place] [address] Care Team Providers Name Role Phone Hai Lopez DO Primary Care Provider Encounter Details Date Type Department Care Team Description 08/21/2019 Laboratory Appointment Lab 3L Perla Gordon BUI (nonalcoholic steatohepatitis); [facility] Hepatitis C virus infection without hepatic coma, [place] [id number] Social History Tobacco Use Types Packs/Day Years [...] Lab 08/28/2022 Appointment Radiology Perla Hernandez MD [facility] [address] [place] [address] (Wo rk) 08/28/2022 Office Visit Gastroenterology Andrew Smith PA [facility] [address] [place] [address] (Wo rk) documented as of this encounter Procedures Procedure Name Priority Date/Time Associated Comments Diagnosis BILIRUBIN, DIRECT Routine 08/21/2019 9:23 AM Resu lts for this EST procedure are i n the results section. HEMOGRAM Routine 08/21/2019 9:23 AM BUI (nonalcoholic Res ults for this EST steatohepatitis) procedure are in Hepatitis C virus the result s infection without section. hepatic coma, unspecified chronicity DIFFERENTIAL, Routine 08/21/2019 9:23 AM BUI (nonalcoholic Re sults for this AUTOMATED EST steatohepatitis) procedure are in Hepatitis C virus the result s infection without section. hepatic coma, unspecified chronicity HC ALPHA FETOPROTEIN Routine 08/21/2019 9:23 AM BUI (nonalcoh olic Results for this TUMOR MARKER EST steatohepatitis) procedure are in Hepatitis C virus the result s infection without section. hepatic coma, unspecified chronicity HC PROTHROMBIN TIME Routine 08/21/2019 9:23 AM BUI (nonalcoho lic Results for this EST steatohepatitis) procedure are in Hepatitis C virus the result s infection without section. hepatic coma, unspecified chronicity HC CBC,PLT & AUTO DIFF Routine 08/21/2019 9:23 AM BUI (nonalc oholic EST steatohepatitis) Hepatitis C virus infection without hepatic coma, unspecified chronicity COMPREHENSIVE Routine 08/21/2019 9:23 AM BUI (nonalcoholic Re sults for this METABOLIC PANEL EST steatohepatitis) procedure are in (NON-FASTING) Hepatitis C virus the resul ts infection without section. hepatic coma, unspecified chronicity documented in this encounter Results Bilirubin, Direct (08/21/2019 9:23 AM EST) athologist Signature Bili, Direct 0.1 0.0 - 0.3 [facility] mg/dL [facility] Specimen Anatomical Collection Method Collection Time Receive d Time (Source) Location / / Volume Laterality Blood specimen 08/21/2019 9:23 AM 020 9:40 (specimen) EST AM EST Resulting Agency Comment Spec In Lab Perla Hernandez MD CHEMISTRY ORDERABLES Performing Organization Address City/State/[place] [address] Differential, Automated (08/21/2019 9:23 AM EST) athologist Signature Neutrophils % 54.8 % [facility] Neutr Abs (ANC) 4.44 1.70 - [facility] 6.10 [facility] x10(3)/[facility] LABORATORY Lymphocytes % 33.9 % [facility] Lymphocytes Abs 2.7 0.9 - 3.2 [facility] x10(3)/[facility] LABORATORY Monocytes % 6.7 % [facility] Monocyte Abs 0.5 0.3 - 0.9 [facility] x10(3)/[facility] LABORATORY Eosinophils % 3.1 % [facility] Eosinophils Abs 0.2 0.0 - 0.4 [facility] x10(3)/[facility] LABORATORY Basophils % 1.1 % [facility] Basophils Abs 0.1 0.0 - 0.1 [facility] x10(3)/[facility] LABORATORY Immature Gran % 0.40 % [...] Elaina Gran Abs 0.03 0.00 - 0.04 x10(3)/[facility] Specimen Anatomical Collection Method Collection Time Receive d Time (Source) Location / / Volume Laterality Blood specimen 08/21/2019 9:23 AM 020 9:35 (specimen) EST AM EST Resulting Agency Comment Spec In Lab Perla Hernandez MD HEMATOLOGY ORDERABLES Performing Organization Address City/State/[place] [address] (ABNORMAL) Hemogram (08/21/2019 9:23 AM EST) Analysis Performed At Patho logist Time Signature WBC 8.1 4.0 - 9.5 [facility] x10(3)/[facility] LABORATORY RBC 5.91 (H) 4.00 - [facility] 5.21 [facility] x10(6)/[facility] LABORATORY Hemoglobin 17.2 (H) 11.7 - [facility] 15.5 gm/dL [facility] Hematocrit 52.5 (H) 35.7 - [place] 45.8 % [facility] MCV 88.8 82.6 - [place] 94.4 [facility] LABORATORY MCH 29.1 27.1 - [place] 32.0 pg [facility] MCHC 32.8 31.7 - [place] 35.0 gm/dL [facility] Platelets 189 145 - 357 [facility] x10(3)/[facility] LABORATORY RDWSD 44.9 37.0 - [place] 46.0 [facility] LABORATORY RDWCV 13.8 11.5 - [place] 14.1 % [facility] MPV 10.8 7.6 - 12.9 [place] [facility] LABORATORY nRBC % Auto 0.0 % [facility] nRBC Abs Auto 0.000 0.000 - [place] 0.000 [facility] x10(3)/[facility] LABORATORY Specimen Anatomical Collection Method Collection Time Receive d Time (Source) Location / / Volume Laterality Blood specimen 08/21/2019 9:23 AM 020 9:35 (specimen) EST AM EST Resulting Agency Comment Spec In Lab Perla Hernandez MD HEMATOLOGY ORDERABLES Performing Organization Address City/State/[place] [address] (ABNORMAL) Comprehensive metabolic panel (non-fasting) (08/21/2019 9:23 AM EST) P athologist Signature Glucose Lvl 212 (H) 65 - 199 [facility] Comment: Diabetes: >=200 mg/dL plus symp toms BUN 13 8 - 18 mg/dL [facility] Creatinine 0.75 0.70 - 1.20 mg/dL [facility] Sodium 139 135 - 145 mmol/L [facility] Potassium 4.2 3.5 - 5.0 mmol/L [facility] Comment: Please note: ??Patients with WBC >100,00 0 may have falsely elevated Potassium levels. ??For accurate Potassium quantif ication in these patients send serum separator tube (gold top) for subsequent determinations. ??Contact the Clinical Chemistry Laboratory if there are any qu estions. Chloride 101 98 - 107 mmol/L [facility] CO2 27 22 - 31 mmol/L [facility] Anion Gap 11 5 - 15 mmol/L [facility] Calcium 9.5 8.5 - 10.5 mg/dL [facility] Total Protein 7.4 6.1 - 8.0 gm/dL [facility] Albumin 4.5 3.2 - 5.2 gm/dL [facility] AST 17 0 - 30 unit/L [facility] ALT 19 0 - 30 unit/L [facility] Alk Phos 116 (H) 35 - 105 unit/L [facility] Total Bilirubin 0.5 0.2 - 1.3 mg/dL [facility] Estimated GFR 87 >=60 mL/min/1.73 m?? [facility] Comment: The eGFR was calculated using the CKD-EP I equation. As with all creatinine based estimates of kidney function, eGFR values calculated with the CKD-EPI equation are not accurate in patients wi th acute kidney failure, extremes of body mass or the acutely ill. http://Lingohub/[facility] CITY[facility]f eGFR 101 >=60 mL/min/1.73 m?? [facility] Comment: The eGFR was calculated using the CKD-EP I equation. As with all creatinine based estimates of kidney function, eGFR values calculated with the CKD-EPI equation are not accurate in patients wi th acute kidney failure, extremes of body mass or the acutely ill. http://Lingohub/[facility] [place] CITY[facility]f Specimen Anatomical Collection Method Collection Time Receive d Time (Source) Location / / Volume Laterality Blood specimen 08/21/2019 9:23 AM 020 9:40 (specimen) EST AM EST Resulting Agency Comment Spec In Lab Perla Hernandez MD CHEMISTRY ORDERABLES Performing Organization Address City/State/[place] [address] Prothrombin Time (08/21/2019 9:23 AM EST) P athologist Signature PT 11.4 9.4 - 12.5 [facility] LABORATORY INR 1.0 [facility] [...] Location / / Volume Laterality Blood specimen 08/21/2019 9:23 AM 020 9:35 (specimen) EST AM EST Resulting Agency Comment Spec In Lab Perla Hernandez MD HEMATOLOGY ORDERABLES Performing Organization Address City/State/[place] [address] AFP tumor marker (08/21/2019 9:23 AM EST) P athologist Signature AFP 1.9 <=8.3 ng/mL [facility] Specimen Anatomical Collection Method Collection Time Receive d Time (Source) Location / / Volume Laterality Blood specimen 08/21/2019 9:23 AM 020 9:35 (specimen) EST AM EST Resulting Agency Comment Spec In Lab Perla Hernandez MD CHEMISTRY ORDERABLES Performing Organization Address City/[facility]/[place] [address] documented in this encounter Visit Diagnoses Diagnosis BUI (nonalcoholic steatohepatitis) Other chronic nonalcoholic liver disease Hepatitis C virus infection without hepa tic coma, unspecified chronicity documented in this encounter Care Teams Torch Straightener Relationship Specialty Start Date End Date Hai Lopez DO PCP - General Family Medicine 10/10/17 [address] [facility] [place] [address] documented as of this encounter
--- OUTSIDE RECORDS SUMMARY | 2022-04-28 01:09 | XMS_ITS | Encounter Summary ---
:1960 Author Organization [facility] Address [address] [place] [address] Care Team Providers Name Role Phone Hai Gallegos MD Primary Care Provider Encounter Details Date Type Department Care Team Description 07/27/2021 Lab Requisition [facility] Outr Resulting Lab, Pathology & Laboratory Provider [facility] [address] [place], [place] [id number] Social History Tobacco Use Types Packs/Day Years Used Date Never Assessed Sex Assigned at Date Recorded Not on file documented as of this encounter Plan of Treatment Not on filedocumented as of this encounter Procedures Procedure Name Priority Date/Time Associated Diagnosis Comme nts COVID-19 TEST [facility] Today 07/27/2021 13:00 LAB PCR EST COVID-19 TESTING Routine 07/27/2021 13:00 Results for this EST procedure are i n the results section. documented in this encounter Results COVID-19 TEST [facility] LAB PCR (07/27/2021 13:00 EST) Specimen Swab Performing Organization Address City/State/ZIP Code Phon e Number [facility] [address] [place] [address] SERVICES COVID-19 TESTING (07/27/2021 13:00 EST) COVID-19 rt-PCR Negative Negative [facility] Result Comment: CENTER LABORATORY This test has not been FDA c leared or approved. This test has been authorized by FDA under an EUA for use by authorized laboratories. This test has been authorized only for detection of nucleic acid fro SERVICES m 2019-nCoV, not for any oth er viruses or pathogens. This test is only authorized for the duration of the declaration that circumstances exist justifying the authorization of emergency use of in vitro d iagnostic tests for detectio n and/or diagnosis of 2019-nCoV under section 564(b)(1) of Act, 21 U.S.C ?? 360bbb-3(b) (1), unless the authorization is terminated or revoked sooner. Negative results do not prec lude 2019-nCoV infection and should not be used as the sole basis for treatment or other patient management decisions. Negative results must be combined with clinical observa tions, patient history, and epidemiological informatio n. Testing was performed using the minh SARS-CoV-2 assay ([employer] on the Minh 6800 System Performing Lab Minh [address] [facility] Lab [facility] LAB[facility] SERVICES Specimen Swab Performing Organization Address City/State/ZIP Code Phon e Number [facility] [address] [place] [address] SERVICES documented in this encounter Visit Diagnoses Not on filedocumented in this encounter Care Teams Jewelry Making Instructor Relationship Specialty Start Date End Date Hai Gallegos MD PCP - General 08/12/10 [address] [place], [place] [id number] documented as of this encounter
--- OUTSIDE RECORDS SUMMARY | 2022-04-28 01:09 | XMS_ITS | Encounter Summary ---
:1960 Author Organization [facility] [place] [address] Care Team Providers Name Role Phone JohnHai DO Primary Care Provider Reason for Visit Reason Comments Visual Field Change Encounter Details Date Type Department Care Team Description 08/08/2019 Office Visit Ophthalmology at [facility] Duong Nelson, Visual field defects; [facility] MD Alena [place] [address] CENTER [phone] OPHTHALMOLOGY [place], [place] [address] Social History Tobacco Use Types Packs/Day Years Used Date Current Every Day Smoker Cigarettes 0.25 40 Smokeless Tobacco: Never Used Comments: down to 5 cigs. Alcohol Use Standard Drinks/Week Comments No 0 (1 standard drink = 0.6 oz pure alcoho l) Sex Assigned at Date Recorded Not on file documented as of this encounter Progress Notes Alena Nelson MD - 08/08/2019 8:30 AM EST Mary Beth Holman has noted longstanding headaches. No temporal headache, scalp tenderness, jaw pain, tongue pain, fatigue, shoulder or neck pain. Weight loss intentional, 15 lbs. On examination on 08/01/2019, Mary Beth Holman exhibited 20/50 vision in the right, 20/20 in the left.She has a normal visual function, color vision, with no evidence of a relative afferent pupillary defect. The intraocular pressures were normal in each eye. Static visual webber were unreliable with temporal defect in the right and full in the left. Sensorimotor examination revealed full extraocular movements in each eye. Mary Beth Holman had a small exophoria in all directions. Dilated eye examination revealed normal anterior segment structure, with mild cataracts. The optic nerves are healthy and pink with normal maculae and peripheral retina in each eye. The OCT revealed normal RNFL of both optic nerves. GEORGE right eye was 20/25, suggesting nuclear sclerotic cataract as a contributing factor to her reduced visual acuity. Poor reliability on field today. Will obtain GCA labs, and re-assess next week with Goldmann visual webber. Return precautions given. Today, Mary Beth Holman exhibited 20/30 vision in the right, 20/20 in the left. Full color vision, with no evidence of a relative afferent pupillary defect. The intraocular pressures were normal in eacheye. Goldmann visual field with some peripheral constriction, likely from her eyelids. Normal optic nerves, with full RNFL, not consistent with an optic neuropathy. Return precautions given, RTC 3-4 weeks I, Reji Higuera, have performed the documentation for this encounter in the presence of and actingas a scribe for Alena Nelson MD. I performed the services which were documented by the scribe, and I agree with the accuracy of the documentation in this encounter. ?? Alena Nelson MD documented in this encounter Plan of Treatment Upcoming Encounters Date Type Specialty Care Team Description 08/28/2022 Laboratory Appointment Lab 08/28/2022 Appointment Radiology Yuliana Hernandez MD [facility] [address] [place] [address] (Wo rk) 08/28/2022 Office Visit Gastroenterology Andrew Smith PA [facility] [address] [place] [address] (Wo rk) documented as of this encounter Procedures Procedure Name Priority Date/Time Associated Diagnosis Comme nts GOLDMANN VISUAL Routine 08/18/2019 2:31 PM Unspecified visual Results for this FIELD - EXTENDED - EST disturbance procedure are in OU- BOTH EYES the results section. FUNDUS PHOTOS - OU- Routine 08/11/2019 12:25 PM Unspecified vi sual Results for this BOTH EYES EST disturbance procedure are i n the results section. OCT OPTIC NERVE - Routine 08/11/2019 12:24 PM Visual field def ects Results for this OU - BOTH EYES EST procedure are in the results section. documented in this encounter Results Goldmann Visual Field - Extended - OU - Both Eyes (08/18/2019 2:31 PM EST) Anatomical Region Laterality Modality Other Specimen (Source) Anatomical Location Collection Method / Collectio n Time Received Time / Laterality Volume Narrative 08/18/2019 2:31 PM EST Goldmann visual field with some peripheral constriction, likely from her eyelids. Alena Nelson MD OPHTHALMOLOGY SERVICES ORD ERABLES Fundus Photos - OU - Both Eyes (08/11/2019 12:25 PM EST) Anatomical Region Laterality Modality Other Specimen (Source) Anatomical Location Collection Method / Collectio n Time Received Time / Laterality Volume Narrative 08/11/2019 12:25 PM EST Right Eye Disc findings include normal observation s. Vessel findings include normal observations. Periphery findings include normal observations. Left Eye Disc findings include normal observation s. Vessel findings include normal observations. Periphery findings include normal observations. Notes Normal discs Alena Nelson MD OPHTHALMOLOGY SERVICES ORD ERABLES Oct Optic Nerve - OU - Both Eyes (08/11/2019 12:24 PM EST) Anatomical Region Laterality Modality Other Specimen (Source) Anatomical Location Collection Method / Collectio n Time Received Time / Laterality Volume Narrative 08/11/2019 12:24 PM EST Right Eye Quality was good. Findings include livia l observations. Temporal thickness was normal. Superior thickness was livia l. Nasal thickness was normal. Inferior thickness was normal. Left Eye Quality was good. Findings include livia l observations. Temporal thickness was normal. Superior thickness was livia l. Nasal thickness was normal. Inferior thickness was normal. Notes Sidney Spectralis OCT Implication: No thinning or swelling OU. Alena Nelson MD OPHTHALMOLOGY SERVICES ORD ERAIRA documented in this encounter Visit Diagnoses Diagnosis Visual field defects Visual field defect, unspecified Unspecified visual disturbance documented in this encounter Care Teams Medical Receptionist Assistant Relationship Specialty Start Date End Date Hai Lopez DO PCP - General Family Medicine 10/10/[address] [place] [place] [address] documented as of this encounter
--- OUTSIDE RECORDS SUMMARY | 2022-04-28 01:09 | XMS_ITS | Encounter Summary ---
:1960 Author Organization [facility] Address [address] [place] [address] Care Team Providers Name Role Phone Unavailable Primary Care Provider Unavailable Encounter Details Date Type Department Care Team Description 01/22/2008 Before [facility] - Bernardo Price MD Converted Visit Maple conversion [address] ([place]) [address] [place] [address] [place], [place] [id number] [phone] Social History Tobacco Use Types Packs/Day Years Used Date Never Assessed Sex Assigned at Date Recorded Not on file documented as of this encounter Plan of Treatment Not on filedocumented as of this encounter Procedures Procedure Name Priority Date/Time Associated Diagnosis Comme nts CYTOPATHOLOGY Routine 01/22/2008 0:00 EDT Results for this procedure are i n the results section . documented in this encounter Results CYTOPATHOLOGY (01/22/2008 0:00 EDT) Pathology Report: CYTOPATHOLOGY REPORT ? WARD ALL EN ? LAB Reports generated via electr onic interface contain original data; ? however they are lacking the format of the original report. ? Caution should be taken when reading/interpreting unformatted reports. ? Name: ? RUPERTO, MARY BETH L ? Accession #: ? [id number] ? : ? 1960 (Age: 47) ??F ?Collect Date: ? 01/22/2008 ? Location: ? [facility] ? Receive Date: ? 01/24/2008 ? Provider: ?JUVE NORTON TER MD ? Copy to: ? Specimen/Source: ? ThinPrep Pap Test, Vagina/Cervix/Endocervix, processed ?? on Cytyc ThinPrep Imaging Sy stem, with manual evaluation ? Last Menstrual Period: ? present ? Treatment History: ? Cryotherapy ? SPECIMEN ADEQUACY ? Satisfactory for Eval uation ? - transformation zone compon ent absent ? GENERAL CATEGORIZATION ? Other, see interpreta tion ? INTERPRETATION ? Endometrial cells pre sent in a woman equal to or greater than age 40. ? Negative for Intraepithelial Lesion. ? EDUCATIONAL NOTES/RECOMMENDA TIONS ? Benign appearing endo metrial cells on Pap tests are usually a normal ? finding in women with regula r menstrual cycles, especially if the Pap test was ?? collected during the first h intermediate of the menstrual cycle. ? There is data showing that e ndometrial cells on Pap tests may be associated with endometrial/uterine abnormal ities in post menopausal women or in perimenopausal women with abnormal bleeding . ? There is limited data on the significance of benign endometrial cells in post ?? menopausal women on HRT. ??C linical correlation is recommended. ? Note: ??The Pap test is not an accurate test for the screening of endometrial ? lesions and should not be us ed as a follow up in patients with clinical ? suspicion of endometrial pat hology. ? Document reviewed and electr onically signed by: ? Lynan Jasvir, CT(ASCP) ? Report Date: ??07/24/ 2008 10:22 ? End of Report ? Specimen Performing Organization Address City/State/ZIP Code Phon e Number [facility] [address] [place] [address] SERVICES [facility] [address] [place] [address] documented in this encounter Visit Diagnoses Not on filedocumented in this encounter
--- OUTSIDE RECORDS SUMMARY | 2022-04-28 01:09 | XMS_ITS | Encounter Summary ---
:1960 Author Organization [facility] [place] [address] Care Team Providers Name Role Phone JohnHai DO Primary Care Provider Encounter Details Date Type Department Care Team Description 08/21/2019 Hospital Encounter Ultrasound at [facility] Perla Hernandez, BUI (nonalcoholic steatohep atitis); [facility] Hepatitis C virus infection without hepa tic coma, unspecified chronicity Formerly named [facility] [id number] [place], [place] [phone] [facility] Social History Tobacco Use Types Packs/Day [...] Lab 08/28/2022 Appointment Radiology Perla Hernandez MD [facility] [address] [place] [address] (Wo rk) 08/28/2022 Office Visit Gastroenterology Andrew Smith PA [facility] [address] [place] [address] (Wo rk) documented as of this encounter Procedures Procedure Name Priority Date/Time Associated Diagnosis Comme nts US ABDOMEN LIMITED Routine 08/21/2019 8:41 AM BUI (nonalcohol ic Results for this HEPATOLOGY PROTOCOL EST steatohepati tis) procedure are in Hepatitis C virus the result s infection without section. hepatic coma, unspecified chronicity documented in this encounter Results US Abdomen Limited Hepatology Protocol (08/21/2019 8:41 AM EST) Anatomical Region Laterality Modality Abdomen Ultrasound Specimen (Source) Anatomical Collection Method Collection Time Re ceived Time Location / / Volume Laterality 08/21/2019 8:38 AM EST Impressions 08/21/2019 9:12 AM EST 1. The liver is normal in echogenicity. No capsular nodularity or focal hepatic mass is seen. 2. The main portal vein is patent with hepatopedal directional flow. No ascites. 3. The gallbladder and biliary ductal s ystem are normal. Thank you for letting us participate in the care of this patient. For questions regarding this report, please contact nilda marina number below. Electronically signed by: Babar munguia, [facility] ([phone]), at 9:03 AM ? Babar Higuera, Staff Physician Electronically Signed Final Report ?? 09:11 am Narrative 08/21/2019 9:12 AM EST Abdominal ? (Signed Final 08/21/2019 09:11 am) PATIENT INFO: ID #: ? [id number] ?: ??[birth year] (58 yrs) Name: ? MARY BETH ANTUNEZ ?Visit Date: 08/21/2019 08:38 am PERFORMED BY: Performed By: ? More Mccullough RDMS Attending: ?Kalen REBOLLAR, Eleno Mejia Referred By: ?PERLA HERNANDEZ Location: ? [facility] SERVICE(S) PROVIDED: ??UABDLIM - Hepatology Protocol - Abdom inal ? [id number] ??Limited Survey Single Organ or Quadra nt - ??[id number] INDICATIONS: ??s/p Hep C treatment, high grade fibro sis, ??HCC screening COMPARISON: Ultrasound: 02/12/19 ------ LIVER: ------ Right Lobe Length: ?? 17.4 ?? cm Echogenicity/Echotexture: ?? Normal Portal Veins: ?Hepatopetal GALLBLADDER: Cholelithiasis: ?No stones visua lized Wall Thickness: ?1. mm Focal Tenderness: ?Negative sonogra phic Becerril's sign BILIARY TRACT: Intrahepatic Ducts: ?? Normal Extrahepatic Ducts: ?? Normal Common Duct Size: ? 5.0 ? mm FLUID COLLECTIONS: No ascites seen. Procedure Note Babar Higuera MD - 08/21/2019Format ting of this note might be different from the original. Abdominal (Signed Final 08/21/2019 09:1 1 am) PATIENT INFO: ID #: [id number] : [birth year] (58 y rs) Name: MARY BETH ANTUNEZ Visit Date: 08/21 08:38 am PERFORMED BY: Performed By: More Mccullough RDMS Attending: Babra Higuera MD Referred By: PERLA HERNANDEZ Location: [facility] SERVICE(S) PROVIDED: UABDLIM - Hepatology Protocol - Abdomin al [id number] Limited Survey Single Organ or Quadrant - [id number] INDICATIONS: s/p Hep C treatment, high grade fibrosi s, HCC screening COMPARISON: Ultrasound: 02/12/19 ------ LIVER: ------ Right Lobe Length: 17.4 cm Echogenicity/Echotexture: Normal Portal Veins: Hepatopetal GALLBLADDER: Cholelithiasis: No stones visualized Wall Thickness: 1. mm Focal Tenderness: Negative sonographic Becerril's sign BILIARY TRACT: Intrahepatic Ducts: Normal Extrahepatic Ducts: Normal Common Duct Size: 5.0 mm FLUID COLLECTIONS: No ascites seen. IMPRESSION 1. The liver is normal in echogenicity. No capsular nodularity or focal hepatic mass is seen. 2. The main portal vein is patent with hepatopedal directional flow. No ascites. 3. The gallbladder and biliary ductal s ystem are normal. Thank you for letting us participate in the care of this patient. For questions regarding this report, please contact t he number below. Electronically signed by: Babar munguia [facility] ([phone]), at 9:03 AM Babar Higuera, Staff Physician Electronically Signed Final Report 08/21 09:11 am Perla Hernandez MD IMG US GEN ORDERABLES documented in this encounter Visit Diagnoses Diagnosis BUI (nonalcoholic steatohepatitis) Other chronic nonalcoholic liver disease Hepatitis C virus infection without hepa tic coma, unspecified chronicity documented in this encounter Care Teams National Recruiter Relationship Specialty Start Date End Date Myrter, Hai A, DO PCP - General Family Medicine 10/10/[address] [place] [address] documented as of this encounter
--- OUTSIDE RECORDS SUMMARY | 2022-04-28 01:09 | XMS_ITS | Encounter Summary ---
:1960 Author Organization [facility] Address [address] [place] [address] Care Team Providers Name Role Phone Hai Gallegos MD Primary Care Provider Encounter Details Date Type Department Care Team Description 03/15/2012 Results Only [facility] Juve Dawkins MD Laboratory Services - [address] [place] [address] [place] [address] [phone] Social History Tobacco Use Types Packs/Day Years Used Date Never Assessed Sex Assigned at Date Recorded Not on file documented as of this encounter Plan of Treatment Not on filedocumented as of this encounter Procedures Procedure Name Priority Date/Time Associated Diagnosis Comme nts PAP TEST- RESULT Routine 03/15/2012 0:00 EDT Resu lts for this ONLY procedure are i n the results section. documented in this encounter Results PAP TEST- RESULT ONLY (03/15/2012 0:00 EDT) Pathology Report: CYTOPATHOLOGY REPORT [facility] Reports generated via electronic interface contain satniago ginal data; however they are lacking the format of the original re port. Caution should be taken when reading/interpreting unfo rmatted reports. Name: ? MARY BETH ANTUNEZ ? Accession #: ? [id number] : ? 1960 (Age: 51) ??F ?Collect Date: ? 01/2012 Location: ? [facility] ? Receive Date : ? 03/19/2012 Provider: ?JUVE DAWKINS MD Copy to: ? Specimen/Source: ? Pap Test, Cervix/Endocervix, ThinPrep Imaging System with manual evaluation Last Menstrual Period: ? Stenotic ? SPECIMEN ADEQUACY ? Satisfactory for Evaluation - transformation zone component absent GENERAL CATEGORIZATION ? Negative for Intraepithelial Lesion or Malignan cy ? Document reviewed and electronically signed by: ? DARIUSZ Mancera(ASCP) ? Report Date: ??03/20/2012 16:20 End of Report Specimen Performing Organization Address City/State/ZIP Code Phon e Number [facility] [address] [place] [address] SERVICES [facility] [address] [place] [address] documented in this encounter Visit Diagnoses Not on filedocumented in this encounter Care Teams Machinist Helper Relationship Specialty Start Date End Date Hai Gallegos MD PCP - General 08/12/[address] [place], [place] [address] [place], [place] [address] documented as of this encounter
--- OUTSIDE RECORDS SUMMARY | 2022-04-28 01:09 | XMS_ITS | Encounter Summary ---
:1960 Author Organization [facility] [address] Care Team Providers Name Role Phone John Hai Nicole DO Primary Care Provider Encounter Details Date Type Department Care Team Description 12/19/2021 Telephone Gastroenterology at [facility] [place] [phone] Social History Tobacco Use Types Packs/Day Years Used Date Current Every Day Smoker Cigarettes 0.25 40 Smokeless Tobacco: Never Used Comments: down to 5 cigs. Alcohol Use Standard Drinks/Week Comments No 0 (1 standard drink = 0.6 oz pure alcoho l) Sex Assigned at Date Recorded Not on file documented as of this encounter Miscellaneous Notes Telephone Encounter - Shelby Nicolas - 12/19/2021 10:45 AM EDT Pt needs US prior to follow up currently scheduled for 02/23. US order will be by then, just need it extended documented in this encounter Plan of Treatment Upcoming Encounters Date Type Specialty Care Team Description 08/28/2022 Laboratory Appointment Lab 08/28/2022 Appointment Radiology Yuliaan Hernandez MD [facility] [address] [place] [address] (Wo rk) 08/28/2022 Office Visit Gastroenterology Andrew Simth PA [facility] [address], [place] [address] (Wo rk) documented as of this encounter Visit Diagnoses Not on filedocumented in this encounter Care Teams Screen Repairer Crusher Relationship Specialty Start Date End Date Hai Lopez DO PCP - General Family Medicine 10/10/17 [address] [place] [address] documented as of this encounter
--- OUTSIDE RECORDS SUMMARY | 2022-04-28 01:09 | XMS_ITS | Encounter Summary ---
:1960 Author Organization [facility] Address [address] [place] [address] Care Team Providers Name Role Phone Unavailable Primary Care Provider Unavailable Encounter Details Date Type Department Care Team Description 01/23/2006 Results Only [facility] - Doreen George son, Glenny Quigley, LINE RUNNER conversion [address] [place] [phone] (Wo rk) Social History Tobacco Use Types Packs/Day Years Used Date Never Assessed Sex Assigned at Date Recorded Not on file documented as of this encounter Plan of Treatment Not on filedocumented as of this encounter Procedures Procedure Name Priority Date/Time Associated Diagnosis Comme nts CYTOPATHOLOGY Routine 01/23/2006 0:00 EDT Results for this procedure are i n the results section . documented in this encounter Results CYTOPATHOLOGY (01/23/2006 0:00 EDT) Pathology Report: CYTOPATHOLOGY REPORT [facility] Reports generated via electronic interface contain santiago ginal data; however they are lacking the format of the original re port. Caution should be taken when reading/interpreting unfo rmatted reports. Name: ? MARY BETH HICKEY ? Accession #: ? [id number] : ? 1960 (Age: 45) ??F ?Collect Date: ? 01/06 Location: ? [facility] ? Receive Date : ? 01/25/2006 Provider: ?GLENNY FELICIANO LINE RUNNER Copy to: ? Specimen/Source: ? ThinPrep Pap Test, Cervix, processed on [id number] ThinPrep Imaging System, with manual evaluation Last Menstrual Period: ? 01/03/06 Other: ? Additional clinical information: Possible abnormal pap many years ago HPVA - HPV testing requested if ASC-US on the current ThinPrep Pap test. ? SPECIMEN ADEQUACY ? Satisfactory for Evaluation - transformation zone component present GENERAL CATEGORIZATION ? Other, see interpretation INTERPRETATION ? Endometrial cells present in a woman equal to o r greater than age 40. Negative for Intraepithelial Lesion or Malignancy. Reactive cellular changes associated with inflammation present (includes repair). EDUCATIONAL NOTES/RECOMMENDATIONS ? Benign appearing endometrial cells on Pap tests are usually a normal finding in women with regular menstrual cycles, especially if the Pap test was collected during the first half of the menstrual cycle . There is data showing that e ndometrial cells on Pap tests may be associated with endometrial/uterine abnormal ities in post menopausal women or in perimenopausal women with abnormal bleeding. There is limited data on the significance of kale ign endometrial cells in post menopausal women on HRT. ??Clinical correlation is rec ommended. Note: ??The Pap test is not an accurate test for the screening of endometrial lesions and should not be used as a follow up in patie nts with clinical suspicion of endometrial pathology. ? Document reviewed and electronically signed by: ? Derik Oswald MD ? Report Date: ??01/31/2006 15:12 End of Report Specimen Performing Organization Address City/State/ZIP Code Phon e Number [facility] [address] [place] [address] SERVICES [facility] [address] [place] [address] documented in this encounter Visit Diagnoses Not on filedocumented in this encounter
--- OUTSIDE RECORDS SUMMARY | 2022-04-28 01:09 | XMS_ITS | Encounter Summary ---
:1960 Author Organization [facility] [place] [address] Care Team Providers Name Role Phone Hai Lopez DO Primary Care Provider Reason for Referral Consultation (Routine) - Authorized Specialty Diagnoses / Procedures Referred By Contact Refer red To Contact Otolaryngology Diagnoses Benign paroxysmal vertigo of right ear Dizziness and giddiness Elizabeth Ricks, [facility] SPECIAL[facility] [place] [phone] [place] [address] Referral ID Status Reason Start Date Expiration Visits Visits Date Requested Authorized [id number] Authorized Consult, 04/27/2022 04/27/2023 1 1 Test & Treat Encounter Details Date Type Department Care Team Description 04/27/2022 Transcribe Orders eDH Incoming Lynnette Ricks par oxysmal vertigo of right ear; Referrals MD Elizabeth Dizziness and giddiness [phone] [facility] [address] [place] [address] Social History Tobacco Use Types Packs/Day Years [...] Lab 08/28/2022 Appointment Radiology Yuliana Hernandez MD [facility] [address] [place] [address] (Wo rk) 08/28/2022 Office Visit Gastroenterology Andrew Smith PA [facility] [address], [place] [address] (Wo rk) Scheduled Referrals Name Type Priority Associated Diagnoses Order S chedule Referral to ENT Outpatient Referral Routine Benign paroxysmal Ordered: 04/27/2022 vertigo of right ear Dizziness and giddiness documented as of this encounter Visit Diagnoses Diagnosis Benign paroxysmal vertigo of right ear Benign paroxysmal positional vertigo Dizziness and giddiness documented in this encounter Care Teams Quality Control Auditor Relationship Specialty Start Date End Date Hai Lopez DO PCP - General Family Medicine 10/10/17 [address] [place] [address] documented as of this encounter
--- OUTSIDE RECORDS SUMMARY | 2022-04-28 01:09 | XMS_ITS | Encounter Summary ---
:1960 Author Organization [facility] [place] [address] Care Team Providers Name Role Phone ChengHai riley DO Primary Care Provider Encounter Details Date Type Department Care Team Description 02/17/2019 Telephone Gastroenterology at [facility] [place] [phone] Social History Tobacco Use Types Packs/Day Years Used Date Current Every Day Smoker Cigarettes 0.25 40 Smokeless Tobacco: Never Used Comments: down to 5 cigs. Alcohol Use Standard Drinks/Week Comments No 0 (1 standard drink = 0.6 oz pure alcoho l) Sex Assigned at Date Recorded Not on file documented as of this encounter Miscellaneous Notes Telephone Encounter - Roya Cm - 02/17/2019 9:31 AM EDT Left message on SundayFeb 14 to ask patient to change appointment times on with Dr. Hernandez. Asked patient to come in for 4:30. documented in this encounter Plan of Treatment Upcoming Encounters Date Type Specialty Care Team Description 08/28/2022 Laboratory Appointment Lab 08/28/2022 Appointment Radiology Yuliana Hernandez MD [facility] [address] [place] [address] (Wo rk) 08/28/2022 Office Visit Gastroenterology Andrew Smith PA [facility] [address], [place] [address] (Wo rk) documented as of this encounter Visit Diagnoses Not on filedocumented in this encounter Care Teams Carriage Rider Relationship Specialty Start Date End Date Hai Lopez DO PCP - General Family Medicine 10/10/17 [address] [place] [address] documented as of this encounter
--- OUTSIDE RECORDS SUMMARY | 2022-04-28 01:09 | XMS_ITS | Encounter Summary ---
:1960 Author Organization [facility] Address [address] [place] [address] Care Team Providers Name Role Phone Unavailable Primary Care Provider Unavailable Encounter Details Date Type Department Care Team Description 07/15/2009 Orders Only [facility] Lisa Frank, MAG Laboratory Services - [address] [place], [place] [address] [place] [id number] [place] [address] [phone] Social History Tobacco Use Types Packs/Day Years Used Date Never Assessed Sex Assigned at Date Recorded Not on file documented as of this encounter Plan of Treatment Not on filedocumented as of this encounter Procedures Procedure Name Priority Date/Time Associated Comments Diagnosis HPV DETECTION, HIGH Routine 07/15/2009 11:29 Resu lts for this RISK TYPES EST procedure are i n the results section. CYTOPATHOLOGY Routine 07/15/2009 0:00 Results for this EST procedure are i n the results section. documented in this encounter Results HUMAN PAPILLOMA VIRUS DNA TEST (07/15/2009 11:29 EST) Specimen Description Cervix, ThinPrep ED Quigley AB vial Result Negative for HPV [facility] types 16, 18, 31, 33, 35, 39, 45, 51, 52, 56, 58, 59, and 68. Report Status Final [facility] 07/29/2009 Specimen Performing Organization Address City/State/ZIP Code Phon e Number [facility] [address] [place] [address] SERVICES [facility] [address] [place] [address] CYTOPATHOLOGY (07/15/2009 0:00 EST) Pathology Report: CYTOPATHOLOGY REPORT ? [facility] ? LAB Reports generated via electr Getting-in interface contain original data; ? however they are lacking the format of the original report. ? Caution should be taken when reading/interpreting unformatted reports. ? Name: ? MARY BETH HICKEY L ? Accession #: ? [id number] ? : ? 1960 (Age: 48) ??F ?Collect Date: ? 07/15/2009 ? Location: ? [facility] ? Receive Date: ? 07/19/2009 ? Provider: ?CAMACHO L R OBINSON SENIOR SQL DEVELOPER ? Copy to: ? Specimen/Source: ? Pap Test, Cervix, ThinPrep Imaging System with manual ?? evaluation ? Last Menstrual Period: ? 8/09 ? Other: ? HPVDX - HPV testing requeste d regardless of diagnosis on current ThinPrep Pap ?? test. ? SPECIMEN ADEQUACY ? Satisfactory for Eval uation ? - transformation zone compon ent present ? GENERAL CATEGORIZATION ? Negative for Intraepi thelial Lesion or Malignancy ? INTERPRETATION ? Reactive cellular isatu nges associated with inflammation present (includes ?? repair). ? Document reviewed and electr onically signed by: ? YOLY KHAN MD ? Report Date: ??01/13/ 2010 13:41 ? End of Report ? Specimen Performing Organization Address City/State/ZIP Code Phon e Number [facility] [address] [place] [address] SERVICES [facility] [address] [place] [address] documented in this encounter Visit Diagnoses Not on filedocumented in this encounter
--- OUTSIDE RECORDS SUMMARY | 2022-04-28 01:09 | XMS_ITS | Clinical Summary ---
:1960 Author Organization [place] [address] Care Team Providers Name Role Phone ChengHai riley DO Primary Care Provider Allergies Active Allergy Reactions Severity Noted Date Comments Aspirin 04/06/2015 Other reaction( s): GI Upset Celecoxib 04/06/2015 Other reaction( s): GI Upset Fluoxetine Fluoxetine Hcl CIS - BAD MAHAD H Metformin Diarrhea, Nausea And 04/06/2015 Vomiting Rofecoxib 04/06/2015 Other reaction( s): bleeding Medications Medication Sig Dispensed Refills Start Date End Date Status ONETOUCH ULTRA 0 01/18/2015 Acti ve TEST Strip ONE TOUCH DELICA 0 01/18/2015 Ac tive 33 gauge Misc lisinopril Take 20 mg by mouth 0 03/21/2015 Active (PRINIVIL;ZESTRIL) daily. 20 mg Tablet omeprazole Take 40 mg by mouth 0 03/25/2015 Active (PRILOSEC) 40 mg daily. Capsule, Delayed Release(E.C.) albuterol Inhale 2 puffs into 0 Active (PROVENTIL the lungs every 4 HFA;VENTOLIN hours as needed for HFA;PROAIR) 90 Wheezing. Use with mcg/actuation HFA spacer Aerosol Inhaler CHANTIX 0.5 mg take 1 tablet by mouth 0 10/01/2017 Active Tablet twice a day LANTUS SOLOSTAR inject 52 units 0 08/05/2018 Active U-100 INSULIN pen subcutaneously once daily BD ULTRA-FINE MINI USE DAILY WITH LANTUS 0 9 Active PEN NEEDLE 31 gauge x 3/16 Needle JARDIANCE 25 mg 0 09/11/2018 Act harmony Tablet insulin lispro Inject 2-20 Units 0 Active (HUMALOG) Insulin subcutaneously as Pen needed. 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 Left sided sciatica 09/27/2018 History of alcohol abuse 09/27/2018 Overview: Abstinent x 20 years Chronic low back pain 07/14/2015 Hypertension 04/06/2015 Chronic obstructive pulmonary disease 06/05/2014 Diabetes mellitus 04/16/2014 Cigarette smoker 02/27/2014 Gastro-esophageal reflux 08/25/2011 HLD (hyperlipidemia) 08/25/2011 Resolved Problems Problem Noted Date Resolved Date Chronic back pain 01/27/2015 07/14/2015 Adiposity 02/04/2013 09/27/2018 Mechanical low back pain 08/02/2008 07/22/2015 Encounters Date Type Specialty Care Team Description 04/27/2022 Transcribe Orders Primary Care Ventura Mack, Benign par oxysmal vertigo of right ear; MD Elizabeth Dizziness and g iddiness 02/23/2022 Office Visit Gastroenterology Yuliana Hernandez (isis lcoholic steatohepatitis); MD Duong History of hepa titis C 02/23/2022 Hospital Encounter Radiology Yuliana Hernandez (no nalcoholic steatohepatitis); MD Duong History of hepa titis C 02/23/2022 Laboratory Appointment Lab BUI (nonalcoholic steatohepatitis ) 02/23/2022 Orders Only Gastroenterology Yuliana Hernandez (isis lcoholic MD Duong steatohepatitis ) from Last 3 Months Family History Medical History Relation Comments Amblyopia Son Glaucoma Neg Hx Macular Degeneration Neg Hx Retinal Detachment Neg Hx Relation Status Comments Son Social History Tobacco Use Types Packs/Day Years Used Date Current Every Day Smoker Cigarettes 0.25 40 Smokeless Tobacco: Never Used Tobacco Cessation: Ready to Quit: Yes Comments: down to 5 cigs. Alcohol Use Standard Drinks/Week Comments No 0 (1 standard drink = 0.6 oz pure alcoho l) Sex Assigned at Date Recorded Not on file Last Filed Vital Signs Vital Sign Reading Time Taken Comments Blood Pressure 122/75 02/23/2022 10:21 AM EDT Pulse 86 02/23/2022 10:21 AM EDT Temperature 36.8 ??C (98.2 ??F) 10/10/2017 3:10 PM EDT Respiratory Rate 16 10/25/2018 1:56 PM EDT Oxygen Saturation 97% 10/25/2018 1:56 PM EDT Inhaled Oxygen Concentration - - Weight 95.1 kg (209 lb 11.2 oz) 02/23/2022 10:21 AM EDT Height 165.1 cm (5' 5) 02/23/2022 10:21 AM EDT Body Mass Index 34.9 02/23/2022 10:21 AM EDT Plan of Treatment Upcoming Encounters Date Type Specialty Care Team Description 08/28/2022 Laboratory Appointment Lab 08/28/2022 Appointment Radiology Yuliana Hernandez MD [facility] [address] [place] [address] (Wo rk) 08/28/2022 Office Visit Gastroenterology Andrew Smith PA [facility] [address] [place] [address] (Wo rk) Health Maintenance Due Date Last Done Comments Covid-19 Vaccine (#1) [birth year]14/1960 Pneumococcal Vaccine: At-Risk 09/11/1965 5-64yrs (1 - PCV) DM Urine Microalbumin yearly 09/11/1969 HIV screen 09/11/1977 Hepatitis C Screening 09/11/1977 Tdap adult 09/11/1978 Tetanus vaccine 09/11/1978 HPV test 09/11/1989 PAP Smear 09/11/1989 Breast Cancer Share Decision 1999 Needed Breast Cancer screening 09/11/2009 Zoster vaccine (1 of 2) 09/11/2009 Advance Directive 09/11/2014 DM Hemoglobin A1c 12/28/2018 09/27/2018 DM Opthalmology Exam 08/01/2020 08/01/2019 Influenza (Flu) vaccine (1 of 1 - 03/09/2022 Influenza standard series) DM Creatinine yearly 02/23/2023 02/23/2022, 08/21/2019, 08/01/2019, Additional history exists Lipid Screening 09/28/2023 09/27/2018 Colonoscopy 10/11/2027 10/10/2017, 10/10/2017 Procedures Procedure Name Priority Date/Time Associated Comments Diagnosis US ABDOMEN LIMITED Routine 02/23/2022 9:51 AM BUI (nonalcohol ic Results for this HEPATOLOGY PROTOCOL EDT steatohepati tis) procedure are in History of the results hepatitis C section. DIFFERENTIAL, Routine 02/23/2022 8:38 AM BUI (nonalcoholic Re sults for this AUTOMATED EDT steatohepatitis) procedure a re in the results section. HEMOGRAM Routine 02/23/2022 8:38 AM BUI (nonalcoholic Res ults for this EDT steatohepatitis) procedure a re in the results section. HC CBC,PLT & AUTO DIFF Routine 02/23/2022 8:38 AM BUI (nonalc oholic EDT steatohepatitis) COMPREHENSIVE Routine 02/23/2022 8:38 AM BUI (nonalcoholic Re sults for this METABOLIC PANEL EDT steatohepatitis) procedur e are in (NON-FASTING) the results section. HC PROTHROMBIN TIME Routine 02/23/2022 8:38 AM BUI (nonalcoho lic Results for this EDT steatohepatitis) procedure a re in the results section. HC ALPHA FETOPROTEIN Routine 02/23/2022 8:38 AM BUI (nonalcoh olic Results for this TUMOR MARKER EDT steatohepatitis) procedure a re in the results section. from Last 3 Months Results US Abdomen Limited Hepatology Protocol (02/23/2022 [...] Electronically signed by: Bernardo guillaume MD, Radiology [place] ([phone]), at 12:19 PM Thank you for letting us participate in the care of this patient. If you are a [facility] er and have any questions regarding this report, please contact the number above. For patients who have ques tions, please contact the [facility] that requested your imaging first. ?Bernardo Silva, Staff Physician Electronically Signed Final Report ?? 03:03 pm Narrative 02/23/2022 3:03 PM EDT Abdominal ? (Signed Final 02/23/2022 03:03 pm) PATIENT INFO: ID #: ? [id number] ?: ??58 (61 yrs)(F) Name: ? MARY BETH HOLMAN ?Visit Date: 02/23/2022 09:49 am PERFORMED BY: Performed By: ? Sagrario Munoz RDMS Attending: ?Ruth Silva MD Referred By: ?YULIANA HERNANDEZ Location: ? [place] [facility] Hep[facility] Protocol - Filipe bellamy ?[id number] Limited Survey Single Organ or Quadrant - [id number] INDICATIONS: Hep C, F3, HCC screening COMPARISON: [...] 03:0 3 pm) PATIENT INFO: ID #: [id number] : 58 (61 y rs)(F) Name: MARY BETH HOLMAN Visit Date: 02/23 09:49 am PERFORMED BY: Performed By: Sagrario Munoz RDMS Attending: Bernardo Silva MD Referred By: YULIANA HERNANDEZ Location: [place] SERVICE[facility]S) [facility] Hepatology Protocol - Filipe bellamy [id number] Limited Survey Single Organ or Quadrant - [id number] INDICATIONS: Hep C, F3, HCC screening COMPARISON: [...] PM Electronically signed by: Bernardo guillaume MD, [facility] ([phone]), at 12:19 PM Thank you for letting us participate in the care of this patient. If you are a health care [facility] er and have any questions regarding this report, please contact the number above. For patients who have ques tions, please contact the [facility] that requested your imaging first. Bernardo Silva, Staff Physician Electronically Signed Final Report 02/23 03:03 pm Yuliana Hernandez MD IMG US GEN ORDERABLES (ABNORMAL) Hemogram (02/23/2022 8:38 AM EDT) Analysis Performed At Patho logist Time Signature WBC 9.0 4.0 - 9.5 [facility] x[facility] LABORATORY RBC 6.07 (H) 4.00 - YULIANA JORGE 5.21 [facility] x10(6)/[facility] LABORATORY Hemoglobin 17.9 (H) 11.7 - [place]NA JORGE 15.5 g/dL [facility] LABORATORY Hematocrit 53.8 (H) 35.7 - [facility] 45.[facility] % [facility] MCV 88.6 82.6 - [facility] 94.4 [facility] LABORATORY MCH 29.5 27.1 - [place]UL[place]NA JOREG 32.0 pg [facility] LABORATORY MCHC 33.3 31.7 - [place] JORGE 35.0 g/dL [facility] LABORATORY Platelets 171 145 - 357 [facility] x10(3)/[facility] LABORATORY RDWSD 50.0 (H) 37.0 - [facility] JORGE 46.0 [facility] LABORATORY RDWCV 15.6 (H) 11.5 - [facility] JORGE 14.1 % [facility] LABOR[facility]ORY MPV 10.5 7.6 - 12.9 [facility] LABORATORY nRBC % Auto 0.0 % [facility] LABORATORY nRBC Abs Auto 0.000 0.000 - [place] JORGE 0.000 [facility] x10(3)/[facility] LABORATORY Specimen Anatomical Collection Method Collection Time Receive d Time (Source) Location / / Volume Laterality Blood 02/23/2022 8:38 AM 8:49 EDT AM EDT Resulting Agency Comment Spec In Lab Yuliana Hernandez MD HEMATOLOGY ORDERABLES Performing Organization Address City/State/[place] [address] Differential, Automated (02/23/2022 8:38 AM EDT) P athologist Signature Neutrophils % 65.2 % [facility] LABORATORY Neutr Abs (ANC) 5.87 1.70 - [facility] 6.10 [facility] x10(3)/[facility] LABORATORY Lymphocytes % 25.5 % [facility] LABORATORY Lymphocytes Abs 2.3 0.9 - 3.2 [facility] x10(3)/[facility] LABORATORY Monocytes % 6.0 % [facility] LABORATORY Monocyte Abs 0.5 0.3 - 0.9 [facility] x10(3)/[facility] LABORATORY Eosinophils % 2.4 % [facility] LABORATORY Eosinophils Abs 0.2 0.0 - 0.4 [facility] x10(3)/[facility] LABORATORY Basophils % 0.6 % [facility] LAB[facility]ORY Basophils Abs 0.0 0.0 - 0.1 [facility] x10(3)/[facility] LABORATORY Immature Gran % 0.30 % [facility] LABORATORY Comment: Immature granulocytes(IG's)percentage an d absolute count will include metamyelocytes, myelocytes, and promyelo cytes. Blood smears from CBCs yielding IG's will be scanned manually for concor dance. If this scan disagrees with the automated IG or if promyelocytes are not ed, a manual differential will be performed. Elaina Gran Abs 0.03 0.00 - 0.04 x10(3)/[facility] LABORATORY Specimen Anatomical Collection Method Collection Time Receive d Time (Source) Location / / Volume Laterality Blood 02/23/2022 8:38 AM 8:49 EDT AM EDT Resulting Agency Comment Spec In Lab Yuliana Hernandez MD HEMATOLOGY ORDERABLES Performing Organization Address City/State/[place] [address] AFP tumor marker (02/23/2022 8:38 AM EDT) athologist Signature AFP <1.9 <=8.3 ng/mL [facility] LAB[facility] Comment: This result was generated [...] Hernandez MD CHEMISTRY ORDERABLES Performing Organization Address [facility] [place] [address] Prothrombin Time (02/23/2022 8:38 AM EDT) athologist Signature PT 11.0 9.4 - 12.5 [facility] LABORATORY INR 1.0 [facility] LABOR[facility]ORY Comment: An INR <2.0 indicates [...] Hernandez MD HEMATOLOGY ORDERABLES Performing Organization Address City/[facility] [place] [address] (ABNORMAL) Comprehensive metabolic panel (non-fasting) (02/23/2022 8:38 AM EDT) athologist Signature Glucose Lvl 162 65 - 199 [facility] mg/dL [facility] LABOR[facility]ORY Comment: Diabetes: >=200 mg/dL plus symp toms BUN 12 8 - 18 mg/dL [facility] LABORATORY Creatinine 0.69 (L) 0.70 - 1.20 mg/dL [facility] LABORATORY Sodium 139 135 - 145 mmol/L [facility] LABORATORY Potassium 4.1 3.5 - 5.0 mmol/L [facility] LABORATORY Comment: Please note: ??Patients with WBC >100,00 0 may have falsely elevated Potassium levels. ??For accurate Potassium quantif ication in these patients send serum separator tube (gold top) for subsequent determinations. ??Contact the Clinical Chemistry Laboratory if there are any qu estions. Chloride 102 98 - 107 mmol/L [facility] LABORATORY CO2 25 22 - 31 mmol/L [facility] Anion Gap 12 5 - 15 mmol/L [facility] LABORATORY Calcium 9.2 8.5 - 10.5 mg/dL [facility] LABORATORY Total Protein 7.6 6.1 - 8.0 g/dL [facility] LABOR[facility]ORY Albumin 4.5 3.2 - 5.2 g/dL [facility] AST 25 0 - 30 unit/L [facility] LAB[facility] ALT 15 0 - 30 unit/L [facility] LAB[facility] Alk Phos 119 (H) 35 - 105 unit/L [facility] Total Bilirubin 0.3 0.2 - 1.3 mg/dL [facility] LABORATORY Estimated GFR 98 >=60 mL/min/1.73 m?? [facility] Comment: This patient's estimated GFR [...] Organization Address City/State/ZIP Code Phon [place] [address] from Last 3 Months Insurance Payer Benefit Plan / Subscriber ID Effective Dates Phone Addre ss [place] [id number] 2018-Claudio [phone] [address] [facility] [address] [place], [place] [address] Advance Directives Latest Code Status on File Code Status Date Activated Date Inactivated Comments Full Code 02/23/2017 8:34 AM 02/23/2017 1:50 PM Does patient have capacity to make decision: Yes Care Teams Non Destructive Testing Inspector Relationship Specialty Start Date End Date Hai Lopez DO PCP - General Family Medicine 10/10/[address] [place], [place] [id number]
--- OUTSIDE RECORDS SUMMARY | 2022-04-28 01:09 | XMS_ITS | Encounter Summary ---
:1960 Author Organization [facility] [place] [address] Care Team Providers Name Role Phone Hai Lopez DO Primary Care Provider Reason for Visit Reason Comments Visual Field Change Consultation (Urgent) - Closed Specialty Diagnoses / Procedures Referred By Contact Refer red To Contact Ophthalmology Diagnoses VF loss od x 2 weeks va 20/25 Johan Dent, OD [place], [address] [place] [address] [facility] OPHTHALMOLOGY DEPT [place], [place] [address] Phone: Fax: Referral ID Status Reason Start Date Expiration Date Visits V isits Requested Authorized [id number] Closed Consult, 07/29/2019 07/28/2020 1 1 Test & Treat Encounter Details Date Type Department Care Team Description 08/01/2019 Office Visit Ophthalmology at [facility] C Leslie, Exophoria; [facility] MD Alena Visual field defects; [address] [facility] [place] [address] [facility]ENTER [phone] OPHTHALMOLOGY DEPT [place], [place] [address] Social History Tobacco Use Types Packs/Day Years Used Date Current Every Day Smoker Cigarettes 0.25 40 Smokeless Tobacco: Never Used Comments: down to 5 cigs. Alcohol Use Standard Drinks/Week Comments No 0 (1 standard drink = 0.6 oz pure alcoho l) Sex Assigned at Date Recorded Not on file documented as of this encounter Progress Notes Alena Nelson MD - 08/01/2019 1:00 PM EST Mary Beth Holman has noted longstanding headaches. No temporal headache, scalp tenderness, jaw pain, tongue pain, fatigue, shoulder or neck pain. Weight loss intentional, 15 lbs. On examination today, Mary Beth Holman exhibited 20/50 vision in the right, 20/20 in the left. She has a normal visual function, color vision, [...] with Goldmann visual webber. Return precautions given. documented in this encounter Miscellaneous Notes Addendum Note - Stephen Moseley - 08/01/2019 1:00 PM EST Addended by: STEPHEN MOSELEY on: 08/01/2019 03:20 PM Modules accepted: Orders documented in this encounter Plan of Treatment Upcoming Encounters Date Type Specialty Care Team Description 08/28/2022 Laboratory Appointment Lab 08/28/2022 Appointment Radiology Perla Hernandez MD [facility] [address] [place] [address] (Wo rk) 08/28/2022 Office Visit Gastroenterology Andrew Smith PA [facility] [address] [place], [place] [address] (Wo rk) documented as of this encounter Procedures Procedure Name Priority Date/Time Associated Diagnosis Comme nts HC C-REACTIVE PROTEIN Routine 08/01/2019 3:29 PM Unspecified v isual Results for this EST disturbance procedure are i n the results section. HEMOGRAM Routine 08/01/2019 3:29 PM Unspecified visual Res ults for this EST disturbance procedure are i n the results section. DIFFERENTIAL, Routine 08/01/2019 3:29 PM Unspecified visual Re sults for this AUTOMATED EST disturbance procedure are i n the results section. HC CREATININE Routine 08/01/2019 3:29 PM Unspecified visual Re sults for this EST disturbance procedure are i n the results section. HC ESR-SEDIMENTATION Routine 08/01/2019 3:29 PM Unspecified vi sual Results for this RATE, BLOOD EST disturbance procedure are i n the results section. HC CBC,PLT & AUTO Routine 08/01/2019 3:29 PM Unspecified visua l DIFF EST disturbance AUTOMATED VISUAL Routine 08/01/2019 3:17 PM Unspecified visual Results for this FIELD - EXTENDED - EST disturbance procedure are in OU- BOTH EYES the results section. FUNDUS PHOTOS - OU- Routine 08/01/2019 3:10 PM Unspecified vis ual Results for this BOTH EYES EST disturbance procedure are i n the results section. SENSORIMOTOR EXAM Routine 08/01/2019 3:10 PM Exophoria Resu lts for this EST procedure are i n the results section. OCT OPTIC NERVE - OU Routine 08/01/2019 3:10 PM Visual field d efects Results for this - BOTH EYES EST procedure are i n the results section. documented in this encounter Results Differential, Automated (08/01/2019 3:29 PM EST) P athologist Signature Neutrophils % 55.7 % [facility] Neutr Abs (ANC) 4.57 1.70 - [facility] 6.10 [facility] x10(3)/[facility] LABORATORY Lymphocytes % 34.3 % [facility] Lymphocytes Abs 2.8 0.9 - 3.2 [facility] x10(3)/[facility] LABORATORY Monocytes % 5.9 % [facility] Monocyte Abs 0.5 0.3 - 0.9 [facility] x10(3)/[facility] LABORATORY Eosinophils % 3.0 % [facility] Eosinophils Abs 0.2 0.0 - 0.4 [facility] x10(3)/[facility] LABORATORY Basophils % 1.0 % [facility] Basophils Abs 0.1 0.0 - 0.1 [facility] x10(3)/[facility] LABORATORY Immature Gran % 0.10 % [facility] Comment: Immature granulocytes(IG's)percentage an d absolute count will include metamyelocytes, myelocytes, and promyelo cytes. Blood smears from CBCs yielding IG's will be scanned manually for concor dance. If this scan disagrees with the automated IG or if promyelocytes are not ed, a manual differential will be performed. Elaina Gran Abs 0.01 0.00 - 0.04 x10(3)/[facility] Specimen Anatomical Collection Method Collection Time Receive d Time (Source) Location / / Volume Laterality Blood specimen 08/01/2019 3:29 PM 020 3:49 (specimen) EST PM EST Resulting Agency Comment Spec In Lab Alena Nelson MD HEMATOLOGY ORDERABLES Performing Organization Address City/State/[place] [address] (ABNORMAL) Hemogram (08/01/2019 3:29 PM EST) Analysis Performed At Patho logist Time Signature WBC 8.2 4.0 - 9.5 [facility] x10(3)/[facility] LABORATORY RBC 6.06 (H) 4.00 - [facility] 5.21 [facility] x10(6)/[facility] LABORATORY Hemoglobin 17.7 (H) 11.7 - [facility] 15.5 gm/dL [facility] Hematocrit 54.2 (H) 35.7 - [facility] 45.8 % [facility] MCV 89.4 82.6 - [facility] 94.4 fL [facility] MCH 29.2 27.1 - [facility] 32.0 pg [facility] MCHC 32.7 31.7 - [facility] 35.0 gm/dL [facility] Platelets 191 145 - 357 [facility] LABORATORY RDWSD 44.0 37.0 - [place] 46.0 [facility] LABORATORY RDWCV 13.4 11.5 - [facility] 14.1 % [facility] MPV 11.1 7.6 - 12.9 [facility] LABORATORY nRBC % Auto 0.0 % [facility] nRBC Abs Auto 0.000 0.000 - [place] 0.000 [facility] x10(3)/[facility] LABORATORY Specimen Anatomical Collection Method Collection Time Receive d Time (Source) Location / / Volume Laterality Blood specimen 08/01/2019 3:29 PM 020 3:49 (specimen) EST PM EST Resulting Agency Comment Spec In Lab Alena Nelson MD HEMATOLOGY ORDERABLES Performing Organization Address City/[facility]/[place] [address] CRP, acute inflammation (08/01/2019 3:29 PM EST) P athologist Signature CRP 3.4 <=4.9 mg/L [facility] Specimen Anatomical Collection Method Collection Time Receive d Time (Source) Location / / Volume Laterality Blood specimen 08/01/2019 3:29 PM 020 3:49 (specimen) EST PM EST Resulting Agency Comment Spec In Lab Alena Nelson MD CHEMISTRY ORDERABLES Performing Organization Address City/State/ZIP Code Phon e Number [address] (ABNORMAL) Sedimentation rate (08/01/2019 3:29 PM EST) P athologist Signature Sed Rate 33 (H) 0 - 20 [facility] mm/hr [facility] Specimen Anatomical Collection Method Collection Time Receive d Time (Source) Location / / Volume Laterality Blood specimen 08/01/2019 3:29 PM 020 3:49 (specimen) EST PM EST Resulting Agency Comment Spec In Lab Alena Nelson MD HEMATOLOGY ORDERABLES Performing Organization Address City/[facility]/ZIP Code Phon e Number [address] Creatinine (08/01/2019 3:29 PM EST) P athologist Signature Creatinine 0.79 0.70 - [place] 1.20 mg/dL [facility] Estimated GFR 82 >=60 [facility] mL/min/1.7 [facility] 3 m?? HOSPITAL LABORATORY Comment: The eGFR was calculated using the CKD-EP I equation. As with all creatinine based estimates of kidney function, eGFR values calculated with the CKD-EPI equation are not accurate in patients wi th acute kidney failure, extremes of body mass or the acutely ill. [email or web address]nkf eGFR 95 >=60 mL/min/1.73 m?? [facility] Comment: The eGFR was calculated using the CKD-EP I equation. As with all creatinine based estimates of kidney function, eGFR values calculated with the CKD-EPI equation are not accurate in patients wi th acute kidney failure, extremes of body mass or the acutely ill. [email or web address]nkf Specimen Anatomical Collection Method Collection Time Receive d Time (Source) Location / / Volume Laterality Blood specimen 08/01/2019 3:29 PM 020 3:49 (specimen) EST PM EST Resulting Agency Comment Spec In Lab Alena Nelson MD CHEMISTRY ORDERABLES Performing Organization Address City/[facility]/[place] [address] Automated Visual Field - Extended - OU - Both Eyes (08/01/2019 3:17 PM EST) Anatomical Region Laterality Modality Other Specimen (Source) Anatomical Location Collection Method / Collectio n Time Received Time / Laterality Volume Narrative 08/01/2019 3:17 PM EST Right Eye Threshold was 24-2. Strategy was CHELSIE. Left Eye Threshold was 24-2. Strategy was CHELSIE. Notes Static visual webber were unreliable wit h temporal defect in the right and full in the left. Alena Nelson MD OPHTHALMOLOGY SERVICES ORD ERABLES Fundus Photos - OU - Both Eyes (08/01/2019 3:10 PM EST) Anatomical Region Laterality Modality Other Specimen (Source) Anatomical Location Collection Method / Collectio n Time Received Time / Laterality Volume Narrative 08/01/2019 3:10 PM EST Right Eye Disc findings include normal observation s. Vessel findings include normal observations. Periphery findings include normal observations. Left Eye Disc findings include normal observation s. Vessel findings include normal observations. Periphery findings include normal observations. Notes Normal discs Alena Nelson MD OPHTHALMOLOGY SERVICES ORD ERABLES Sensorimotor Exam [Pr Special Eye Exam] - OU - Both Eyes (08/01/2019 3:10 PM EST) Anatomical Region Laterality Modality Other Specimen (Source) Anatomical Location Collection Method / Collectio n Time Received Time / Laterality Volume Narrative 08/01/2019 3:10 PM EST This result has an attachment that is no t available. Small exophoria, full stereopsis Alena Nelson MD OPHTHALMOLOGY SERVICES ORD ERABLES Oct Optic Nerve - OU - Both Eyes (08/01/2019 3:10 PM EST) Anatomical Region Laterality Modality Other Specimen (Source) Anatomical Location Collection Method / Collectio n Time Received Time / Laterality Volume Narrative 08/01/2019 3:10 PM EST Right Eye Quality was good. Findings include livia l observations. Temporal thickness was normal. Superior thickness was livia l. Nasal thickness was normal. Inferior thickness was normal. Left Eye Quality was good. Findings include livia l observations. Temporal thickness was normal. Superior thickness was livia l. Nasal thickness was normal. Inferior thickness was normal. Notes [employer] OCT Implication: No thinning or swelling OU. Alena Nelson MD OPHTHALMOLOGY SERVICES ORD ERABLES documented in this encounter Visit Diagnoses Diagnosis Exophoria Visual field defects Visual field defect, unspecified Unspecified visual disturbance documented in this encounter Care Teams Process Coordinator Relationship Specialty Start Date End Date Hai Lopez DO PCP - General Family Medicine 10/10/[address] [place] [address] documented as of this encounter
--- OUTSIDE RECORDS SUMMARY | 2022-04-28 01:09 | XMS_ITS | Encounter Summary ---
:1960 Author Organization [facility] [place] [address] Care Team Providers Name Role Phone Hai Lopez DO Primary Care Provider Encounter Details Date Type Department Care Team Description 10/02/2018 Office Visit [facility] ss 1 obesity due [facility] [address] [facility] excess calories with [address] [place] [address] and body mass index [phone] (BMI) of 30.0 t o 30.9 in adult Social History Tobacco Use Types Packs/Day Years Used Date Current Every Day Smoker Cigarettes 0.25 40 Smokeless Tobacco: Never Used Comments: down to 5 cigs. Alcohol Use Standard Drinks/Week Comments No 0 (1 standard drink = 0.6 oz pure alcoho l) Sex Assigned at Date Recorded Not on file documented as of this encounter Patient Instructions Patient InstructionsEfMiroslava saldivar RD - 10/02/2018 1:00 PM EDT Nutrition Goals: For better blood glucose management, aim for ~20-25 grams of protein per meal and when choosing a snack, add some protein where possible. When you build your plate, check in with protein amount. Eatingat regular times will be a big help as well. 1. Aim to eat ~300 calories at breakfast by 9 in the morning- consider swedish yogurt and 2 eggs (hardboiled or fried) 2. At lunch eat ~ 300-350 calories: try 1/2 chicken salad or tuna or low sodium deli meat and cucumbers and 1 small fruit or half banana OR 12 grapes - avoid chips 3. Eat ~ 400 calories at dinner with ~4 ounces of meat or 6 ounces of fish with 1 cup of non starchyveggies , and 1/2 cup of starchy foods if desired like corn, peas, potato, rice 4. For snack in the evening - aim for no more than 150 calories and limit to no more than 15 grams of carbohydrate in the evening - if having a snack aim to include some protein like a cheese stick or a little PB or choose Dry roasted edamame or Snap pea crisps 5. Limit fruit to no more than 1 serving per day and eat WITH A meal Thank you Miroslava Florentino MS RD LD documented in this encounter Progress Notes Yudi Costa - 10/02/2018 1:00 PM EDT RESEARCH STUDY CONSENTING VISIT Visit Date: 10/02/18 PI/Designee: Dr. Arthur Cervantes/Clay Ayala [facility] [id number]: [facility] [employer] VELOS: [id number] Mary Beth Holman??consented to participate in the above-named protocol. Prior to giving informed consent, the subject had the opportunity to: ?? Read the consent form (or have it read to him/her) ? Discuss the protocol participation with research (or designee) including: ?? Purpose of the study ?? Painful or uncomfortable procedures ?? Risks/benefits ?? Alternatives ?? Who to call with questions ?? Withdrawal rights ?? Ask questions; and ? Consult with family or other physicians ? The subject indicated his/her consent by signing and dating the Patient Informed Consent Form ? Informed consent was conducted prior to any research-related procedures. ?? The subject was provided with a fully executed copy of the consent. 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 T2/liver health Barriers/Challenges: In a more sedentary job Miroslava Florentino RD - 10/02/2018 1:00 PM EDT Nutrition Intervention for Weight Management Initial RD visit with YENIFER White 1960 Assessment/Nutrition Diagnosis: Pt at increased nutritional risk related to excessive calorie intakeand sub optimal physical activity resulting in overweight/obesity as evidenced by BMI and diet recall Food Trackers: not today Activity:will walk the dogs in the summer time and use a Social 2 Step Fitt Weight Today: 202.2# Weight Loss History: Appetite/Hunger: Fasting B-300 mg/dL Typical Dietary Intake: B: banana this morning OR [place] yogurt or banana - usually skips L: usually skips - trying to have a half a chicken sandwich and 10 Kettle cooked chips and a piece of fruit OR a cucumber D: air fryer homemade chicken tenders made with panko crumbs and potato pancake and sauteed snap peas; water S: the worst time - a bag of popcorn or chips Typical Beverages: water with Crystal Light Interview: Barriers to Change: Nutrition Goals: Assessing Calorie Goals at this time? Monitor/Evaluate: Will follow up as determined by patient and provider at their next visit in ~ 1 month Aim for 5-10% weight loss from ABW x 3-6 months from initial visit Thank you 45 minutes were spent today in face to face contact documented in this encounter Plan of Treatment Upcoming Encounters Date Type Specialty Care Team Description 08/28/2022 Laboratory Appointment Lab 08/28/2022 Appointment Radiology Yuliana Hernandez MD [facility] [place] [address] (Wo rk) 08/28/2022 Office Visit Gastroenterology Andrew Smith PA [facility] [address] [place] [place] [address] (Wo rk) documented as of this encounter Visit Diagnoses Diagnosis Class 1 obesity due to excess calories w ith serious comorbidity and body mass index (BMI) of 30.0 to 30.9 in adult documented in this encounter Care Teams Ju[employer] Machines Setter Relationship Specialty Start Date End Date Hai Lopez DO PCP - General Family Medicine 10/10/[address] [place] [address] documented as of this encounter
--- OUTSIDE RECORDS SUMMARY | 2022-04-28 01:09 | XMS_ITS | Encounter Summary ---
:1960 Author Organization [facility] [place] [address] Care Team Providers Name Role Phone Hai Lopez Corey MOORE Primary Care Provider Encounter Details Date Type Department Care Team Description 02/23/2022 Office [place] [facility] [place], BUI (nonalcoholic steatohep atitis); [facility] Lisa soto [place] of [place] [address] [facility] [phone] [place] [address] Social History Tobacco Use Types Packs/Day Years Used Date Current Every Day Smoker Cigarettes 0.25 40 Smokeless Tobacco: Never Used Comments: down to 5 cigs. Alcohol Use Standard Drinks/Week Comments No 0 (1 standard drink = 0.6 oz pure alcoho l) Sex Assigned at Date Recorded Not on file documented as of this encounter Last Filed Vital Signs Vital Sign Reading Time Taken Comments Blood Pressure 122/75 02/23/2022 10:21 AM EDT Pulse 86 02/23/2022 10:21 AM EDT Temperature - - Respiratory Rate - - Oxygen Saturation - - Inhaled Oxygen Concentration - - Weight 95.1 kg (209 lb 11.2 oz) 02/23/2022 10:21 AM EDT Height 165.1 cm (5' 5) 02/23/2022 10:21 AM EDT Body Mass Index 34.9 02/23/2022 10:21 AM EDT documented in this encounter Progress Notes Yuliana Hernandez MD - 02/23/2022 10:30 AM EDT Gastroenterology and Hepatology Follow Up Note Patient: Mary Beth Holman : 1960 Provider: Yuliana Hernandez MD Problem List: #1 F3 liver fibrosis, SVR Hepatitis C #2 BUI - Fibroscan 09/2017: 10.2 kPa - EGD 10/2017: Negative for varices - CT 08/2017: Negative for HCC - U/S 02/2019: negative for HCC - U/S 08/2019: negative for HCC Interval History: She has been feeling OK recently. Her vertigo (chronic issue since 2000) has been getting worse overlast couple of months, she has been very dizzy and so she saw an ENT last , no medication changes from that appointment. PEREZ and dizziness Sunday, but feeling better today. Reports that about a month ago she began to have severe epigastric pain for about a week with nausea, no vomiting. Her painprogressed to where she couldn't sleep and so she went to the ED at [facility]. She was worked up, had a CT scan that was normal, and eventually diagnosed with pancreatitis, felt to be most likely due to gallstones. She was treated with IVF and morphine without complication. Her PCP gave her some medications for nausea and pain, she is unsure what the exact medications are. ?? Since D/C no abd pain, n/v, diarrhea, pruritis, jaundice. Occasional constipation. No blood in stoolor melena. No fever. Maybe some fatigue and her appetite is not great, but she reports feeling stressed at work, and feels like this is the major cause of her low appetite and fatigue and that she is at her baseline for this. She has a history of AUD, but no longer drinks ETOH, her last drink was over20 years ago. ?? Reports her mother in May due to COVID, as a result of this stress she has been smoking again, about 1/2 PPD. Planning to see her hypnotist soon, wants to quit. Current Outpatient Medications Medication Sig Dispense Refill ??? LORazepam (Ativan) 1 mg Tablet TK 1 T PO TID PRA ??? PARoxetine (Paxil) 20 mg Tablet TK 1 T PO D ??? BD ULTRA-FINE MINI PEN NEEDLE 31 gauge x 3/16 Needle USE DAILY WITH LANTUS 0 ??? JARDIANCE 25 mg Tablet 0 ??? insulin lispro (HUMALOG) Insulin Pen Inject 2-20 Units subcutaneously as needed. ??? LANTUS SOLOSTAR U-100 INSULIN pen inject 52 units subcutaneously once daily 0 ??? CHANTIX 0.5 mg Tablet take 1 tablet by mouth twice a day 0 ??? ONETOUCH ULTRA TEST Strip 0 ??? ONE TOUCH DELICA 33 gauge Misc 0 ??? lisinopril (PRINIVIL;ZESTRIL) 20 mg Tablet Take 20 mg by mouth daily. 0 ??? omeprazole (PRILOSEC) 40 mg Capsule, Delayed Release(E.C.) Take 40 mg by mouth daily. 0 ??? albuterol (PROVENTIL HFA;VENTOLIN HFA;PROAIR) 90 mcg/actuation HFA Aerosol Inhaler Inhale 2 puffs into the lungs every 4 hours as needed for Wheezing. Use with spacer No current facility-administered medications for this visit. Vitals: 02/23/22 1021 BP: 122/75 BP Location ([facility]): Left arm Patient Position: Sitting BP Cuff Sizes: Large Adult (32-43 cm) Pulse: 86 Weight: 95.1 kg (209 lb 11.2 oz) Height: 165.1 cm (5' 5) Body mass index is 34.9 kg/m??. Exam: Looks well Mild tenderness in the epigastric and RUQ on palpation, negative Becerril's and Carnett's sign Assessment and Plan: #1Steatohepatitis with grade 3 fibrosis #2 Hep C SVR #3 BUI Liver function is stable. U/S negative for HCC. Labs, U/S, and follow up visit in 6 months. #4 Pancreatitis Will obtain records for review. Note that no gallstones were seen on her ultrasound. Discussed that her Jardiance Maybe the underlying cause, and an alternative maybe required for management of her diabetes. Yuliana Hernandez MD Section of Gastroenterology & Hepatology [address] [place] [id number] Time spent reviewing records prior to this encounter: 5 minutes Time spent during encounter with patient including counselin minutes Time spent documenting encounter after office visit: 5 minutes Approximate total time devoted to this single encounter on the day of the encounter: 30 minutes Cc: Hai Lopez DO Salty Zamora Corona - 02/23/2022 10:30 AM EDT MEDICAL STUDENT NOTE ID: Mary Beth is a 61 year old female with history of T2DM, BUI, SVR Hep C, GERD and COPD who presents today for follow-up and routine HCC US screening. Interval history: Has been feeling OK recently. Her vertigo (chronic issue since 2000) has been getting worse over last couple of months, she has been very dizzy and so she saw an ENT last , no medication changes from that appointment. PEREZ and dizziness Sunday, but feeling better today. Reports that about a monthago she began to have severe epigastric pain for about a week with nausea, no vomiting. Her pain progressed to where she couldn't sleep and so she went to the ED at [facility]. She was worked up, had a CT scan that was normal, and eventually diagnosed with pancreatitis, felt to be most likely due to gallstones. She was treated with IVF and morphine without complication. Her PCP gave her some medications for nausea and pain, she is unsure what the exact medications are. Since D/C no abd pain, n/v, diarrhea, pruritis, jaundice. Occasional constipation. No blood in stoolor melena. No fever. Maybe some fatigue and her appetite is not great, but she reports feeling stressed at work, and feels like this is the major cause of her low appetite and fatigue and that she is at her baseline for this. She has a history of AUD, but no longer drinks ETOH, her last drink was over20 years ago. Reports her mother in May due to COVID, as a result of this stress she has been smoking again, about 1/2 PPD. Planning to see her hypnotist soon, wants to quit. Pertinent positives and negatives of ROS as above. Current Outpatient Medications: ??? LORazepam (Ativan) 1 mg Tablet, TK 1 T PO TID PRA, Disp: , Rfl: ??? PARoxetine (Paxil) 20 mg Tablet, TK 1 T PO D, Disp: , Rfl: ??? BD ULTRA-FINE MINI PEN NEEDLE 31 gauge x 3/16 Needle, USE DAILY WITH LANTUS, Disp: , Rfl: 0 ??? JARDIANCE 25 mg Tablet, , Disp: , Rfl: 0 ??? insulin lispro (HUMALOG) Insulin Pen, Inject 2-20 Units subcutaneously as needed., Disp: , Rfl: ??? LANTUS SOLOSTAR U-100 INSULIN pen, inject 52 units subcutaneously once daily, Disp: , Rfl: 0 ??? CHANTIX 0.5 mg Tablet, take 1 tablet by mouth twice a day, Disp: , Rfl: 0 ??? ONETOUCH ULTRA TEST Strip, , Disp: , Rfl: 0 ??? ONE TOUCH DELICA 33 gauge Misc, , Disp: , Rfl: 0 ??? lisinopril (PRINIVIL;ZESTRIL) 20 mg Tablet, Take 20 mg by mouth daily., Disp: , Rfl: 0 ??? omeprazole (PRILOSEC) 40 mg Capsule, Delayed Release(E.C.), Take 40 mg by mouth daily., Disp: , Rfl: 0 ??? albuterol (PROVENTIL HFA;VENTOLIN HFA;PROAIR) 90 mcg/actuation HFA Aerosol Inhaler, Inhale 2 puffs into the lungs every 4 hours as needed for Wheezing. Use with spacer, Disp: , Rfl: Vitals: Blood pressure 122/75, pulse 86, height 165.1 cm (5' 5), weight 95.1 kg (209 lb 11.2 oz). Physical exam: Gen: Pleasant, obese woman appearing as stated age in no acute distress. Abd: Normal bowel sounds. Soft, non-distended abdomen. Sharp tenderness and involuntary guarding to palpation in epigastrium, with mild tenderness to palpation in RUQ w/o guarding. No tenderness, guarding or rebound in other quadrants. No hepatomegaly, no splenomegaly. Negative Becerril's and Carnett. HEENT: No scleral icterus. Skin: No jaundice, no excoriations, no bruising on abdomen or flank. CV: RRR, no M/R/G Pulm: No increased WOB or accessory muscle use, lungs CTA b/l Labs: Recent Results (from the past 12 hour(s)) Prothrombin Time Result Value PT 11.0 INR 1.0 Comprehensive metabolic panel (non-fasting) Result Value Glucose Lvl 162 BUN 12 Creatinine 0.69 (L) Sodium 139 Potassium 4.1 Chloride 102 CO2 25 Anion Gap 12 Calcium 9.2 Total Protein 7.6 Albumin 4.5 AST 25 ALT 15 Alk Phos 119 (H) Total Bilirubin 0.3 Estimated GFR 98 Hemogram Result Value WBC 9.0 RBC 6.07 (H) Hemoglobin 17.9 (H) Hematocrit 53.8 (H) MCV 88.6 MCH 29.5 MCHC 33.3 Platelets 171 RDWSD 50.0 (H) RDWCV 15.6 (H) MPV 10.5 nRBC % Auto 0.0 nRBC Abs Auto 0.000 Differential, Automated Result Value Neutrophils % 65.2 Neutr Abs (ANC) 5.87 Lymphocytes % 25.5 Lymphocytes Abs 2.3 Monocytes % 6.0 Monocyte Abs 0.5 Eosinophils % 2.4 Eosinophils Abs 0.2 Basophils % 0.6 Basophils Abs 0.0 Immature Gran % 0.30 Elaina Gran Abs 0.03 Imaging: Mary Beth had her screening US today, which has not resulted as of the time of this note. Prev imaging - Fibroscan 09/2017: 10.2 kPa - EGD 10/2017: Negative for varices - CT 08/2017: Negative for HCC - U/S 02/2019: negative for HCC - U/S 08/2019: negative for HCC Assessment & Plan: Mary Beth is a 61 year old woman with BUI, SVR Hep C who is still recovering from her recent bout of acute pancreatitis. Acute Pancreatitis The differential for Mary Beth's acute pancreatitis includes gallstone pancreatitis, alcoholic pancreatitis (based on her history of AUD), medications, and genetic or infectious causes. Based on prevalencealone, the most likely cause of Mary Beth's acute pancreatitis would be gallstones. She is uncertain of whether she had an US during her workup at [facility], but we will review the results of her US from today for any evidence of GB or CBD dilation and will also request access to Mary Beth's records from her hospitalization at [facility] for further review. Her ALT, AST, and T bili today were normal, but her alk phos was elevated at 119 which could potentially indicate some CBD inflammation from gallstones, making gall stone pancreatitis more likely. Although Mary Beth has not drank ETOH for several years, it is possible that her historical drinking predisposed her to pancreatic inflammation and a gallstone precipitated an acute attack. Another notablepossibility to consider is Mary Beth's Jardiance for her T2DM, as GLP-1 agonists can also precipitate pancreatitis. This would be unfortunate, as GLP-1 agonists are also effective for managing BUI, but Mary Beth should follow-up with her PCP to discuss whether it would be worthwhile to discontinue her GLP-1 and trial another diabetic medication. In the meantime, she should monitor for any symptoms concerning for pancreatitis complications such as fever (abscess) or early satiety/abdominal pressure (pseudocyst). She already reports eating a diet high in vegetables and fiber, which she should also continue,avoiding fatty foods and continue working to stay well-hydrated to make future attacks less likely. Based on her age, genetic causes are much less likely to be involved for Mary Beth as this is her first episode of pancreatitis, andgenetic causes such as CFTR mutations tend to present with more chronic pancreatitis. Severely elevated triglycerides (>1,000) can also precipitate pancreatitis, and basedon Mary Beth's T2DM she should follow-up with her PCP to recheck her lipids and if her triglycerides areelevated, consider fibrate therapy. BUI Except for her mildly elevated alk phos, Mary Beth's LFTs were normal and she reports no symptoms such as jaundice, pruritis, or RUQ pain. We will review her screening US, which has been benign for severalyears, and barring any abnormalities she should plan to follow-up again in 6 months for US screeningand follow-up labs. As described above, she should also continue to work on her diet and exercise tohelp improve her hepatic function. Salty Zamora, MS3 [facility] documented in this encounter Plan of Treatment Upcoming Encounters Date Type Specialty Care Team Description 08/28/2022 Laboratory Appointment Lab 08/28/2022 Appointment Radiology Yuliana Hernandez MD [facility] [address] [place] [address] ([place]o roz) 08/28/2022 Office Visit Gastroenterology Andrew Smith PA [facility] [address] [place] [address] (Delmar courtney) Scheduled Orders Name Type Priority Associated Diagnoses Order S chedule CBC (with Diff) Lab Routine BUI (nonalcoholic Expect ed: 08/26/2022 steatohepatitis) (Approximate), History of hepatitis C Expir es: 02/25/2023 Comprehensive metabolic Lab Routine BUI (nonalcoholi c Expected: 08/26/2022 panel (non-fasting) steatohepati tis) (Approximate), History of hepatitis C Expir es: 02/25/2023 Prothrombin Time Lab Routine BUI (nonalcoholic Expec miguelina: 08/26/2022 steatohepatitis) (Approximate), History of hepatitis C Expir es: 02/25/2023 US Abdomen Limited Imaging Routine BUI (nonalcoholic Exp ected: 08/26/2022 Hepatology Protocol steatohepati tis) (Approximate), History of hepatitis C Expir es: 02/25/2023 documented as of this encounter Visit Diagnoses Diagnosis BUI (nonalcoholic steatohepatitis) Other chronic nonalcoholic liver disease History of hepatitis C Personal history of other infectious and parasitic disease documented in this encounter Care Teams Wooden [employer]ade Hardware Installer Relationship Specialty Start Date End Date Hai Lopez DO PCP - General Family Medicine 10/10/[address] [place] [address] documented as of this encounter
--- OUTSIDE RECORDS SUMMARY | 2022-04-28 01:09 | XMS_ITS | Encounter Summary ---
:1960 Author Organization [facility] Address [facility] [place] [address] Care Team Providers Name Role Phone JohnHai DO Primary Care Provider Encounter Details Date Type Department Care Team Description 08/21/2019 [place] [facility] [place]uliana Hernandez, RUQ pain; [facility] Lisa soto MD BUI (nonalcoholic steatohepatitis) [place] [address] [facility] [phone] [place] [address] Social History Tobacco Use Types Packs/Day Years [...] Sign Reading Time Taken Comments Blood Pressure 124/70 08/21/2019 11:41 AM EST Pulse 89 08/21/2019 11:41 AM EST Temperature - - Respiratory Rate - - Oxygen Saturation - - Inhaled Oxygen Concentration - - Weight 88.3 kg (194 lb 11.2 oz) 08/21/2019 11:41 AM EST Height 165.1 cm (5' 5) 08/21/2019 11:41 AM EST Body Mass Index 32.4 08/21/2019 11:41 AM EST documented in this encounter Progress Notes Yuliana Hernandez MD - 08/21/2019 11:00 AM EST Gastroenterology and Hepatology Follow Up Note Patient: Mary Beth Holman : 1960 Provider: Yuliana Hernandez MD Problem List: #1 F3 liver fibrosis, SVR Hepatitis C #2 BUI - Fibroscan 09/2017: 10.2 kPa - EGD 10/2017: Negative for varices - CT 08/2017: Negative for HCC - U/S 02/2019: negative for HCC - U/S 08/2019: negative for HCC Interval History: No changes in RUQ bloating. She has not been able to get liver enzymes at the time of an episode. She is still smoking, but is going next for hypinosis. No jaundice, ascites, melena, diarrhea,constipation, nausea, or vomiting. No changes in mental status. MELD-Na score: 6 at 08/21/2019 9:23 AM MELD score: 6 at 08/21/2019 9:23 AM Calculated from: Serum Creatinine: 0.75 mg/dL (Rounded to 1 mg/dL) at 08/21/2019 9:23 AM Serum Sodium: 139 mmol/L (Rounded to 137 mmol/L) at 08/21/2019 9:23 AM Total Bilirubin: 0.5 mg/dL (Rounded to 1 mg/dL) at 08/21/2019 9:23 AM INR(ratio): 1.0 at 08/21/2019 9:23 AM Age: 58 years Current Outpatient Medications Medication Sig Dispense Refill [...] 52 units subcutaneously once daily 0 ??? ONETOUCH ULTRA TEST Strip 0 [...] as needed for Wheezing. Use with spacer ??? CHANTIX 0.5 mg Tablet take 1 tablet by mouth twice a day 0 No current facility-administered medications for this visit. Vitals: 08/21/19 1141 BP: 124/70 BP Location ([facility] Right arm Patient Position: Sitting BP Cuff Sizes: Adult (25-34 cm) Pulse: 89 Weight: 88.3 kg (194 lb 11.2 oz) Height: 165.1 cm (5' 5) Body mass index is 32.4 kg/m??. Exam: Looks well Assessment and Plan: #1Steatohepatitis with grade 3 fibrosis #2 Hep C SVR #3 BUI Continue with follow up every 6 months with labs and ultrasound. We discussed that her liver enzyme improved with weight loss, and given her risk factors she probably dose have some underlying BUI. She will follow up in clinic in one year. ?? #4 RUQ bloating Provided order for hepatic function to obtain when she has symptoms. Yuliana Hernandez MD Section of Gastroenterology & Hepatology [address] [place] [address] 16 minutes of this 17 minute visit was spent in discussion and coordination of care Cc: Hai Lopez DO documented in this encounter Plan of Treatment Upcoming Encounters Date Type Specialty Care Team Description 08/28/2022 Laboratory Appointment Lab 08/28/2022 Appointment Radiology Yuliana Hernandez MD [facility] [address] [place] [address] ([place]) 08/28/2022 Office Visit Gastroenterology Andrew Smith PA [facility] [address] [place] [address] ([place]o [place]) documented as of this encounter Visit Diagnoses Diagnosis RUQ pain Abdominal pain, right upper quadrant BUI (nonalcoholic steatohepatitis) Other chronic nonalcoholic liver disease documented in this encounter Care Teams Serging Machine Operator Automatic Relationship Specialty Start Date End Date Hai Lopez DO PCP - General Family Medicine 10/10/[address] [place] [address] documented as of this encounter
--- OUTSIDE RECORDS SUMMARY | 2022-04-28 01:09 | XMS_ITS | Encounter Summary ---
:1960 Author Organization [facility] Address [address] [place] [address] Care Team Providers Name Role Phone Unavailable Primary Care Provider Unavailable Encounter Details Date Type Department Care Team Description 01/28/[address] [facility] - Bernardo Price MD Converted Visit Maple conversion [address] ([place]) [address] [place] [address] [place], [place] [id number] [phone] Social History Tobacco Use Types Packs/Day Years Used Date Never Assessed Sex Assigned at Date Recorded Not on file documented as of this encounter Plan of Treatment Not on filedocumented as of this encounter Procedures Procedure Name Priority Date/Time Associated Diagnosis Comme [facility] SURGICAL PATHOLOGY Routine 01/28/2008 0:00 EDT Re sults for this procedure are i n the results section. documented in this encounter Results SURGICAL PATHOLOGY (01/28/2008 0:00 EDT) Pathology Report: SURGICAL PATHOLOGY REPORT ? [facility] Reports generated via [employer] interface contain original data; ? LAB however they are lacking the format of the original report. ? Caution should be taken when reading/interpreting unformatted reports. ? Name: ? RUPERTO, MARY BETH L ? Accession #: ? [id number] ? : ? 1960 (Age: 47) ??F ? Collec t Date: ? 01/28/2008 ? Location: ? [facility] ? Re ceive Date: ? 01/28/2008 ? Provider: JUVE P JUANCHO MD ? Copy to: CAMACHO L FELICIANO N P ? Final Pathologic Diagnosis: ? Endometrium, curettag e: ? 1. ?Proliferati ve endometrium. ? - No cytolog ic atypia. ? 2. ?Fragments o f benign squamous epithelium. ? Document reviewed and electr onically signed by: ? Johan Caal MD ? Report ??Date: 01/31/2008 10 :07 ? By the signature above, the attending physician certifies that he/she has ? personally conducted a gross and/or microscopic examination of the described ? specimens and rendered or co nfirmed the above diagnosis. ? Specimen(s) Received: ? Endometrial curetting s ? Clinical History: ? D&C, hysteroscopy, bl eeding x 3 months ? Gross Description: ? Received in formalin labelled Ruperto and A ??EMC is 1.0 cc of red- brown ?? tissue fragment admixed with blood-tinged mucus. ??The specimen is submitted ? entirely in one cassette. (Porsche Sullivan)/mpl ? End of Report ? Specimen Performing Organization Address City/State/ZIP Code Phon e Number [facility] [address] [place] [address] SERVICES [facility] [address] [place] [address] documented in this encounter Visit Diagnoses Not on filedocumented in this encounter
--- OUTSIDE RECORDS SUMMARY | 2022-04-28 01:09 | XMS_ITS | Encounter Summary ---
:1960 Author Organization [facility] Address [address] [place] [address] Care Team Providers Name Role Phone Hai Gallegos MD Primary Care Provider Encounter Details Date Type Department Care Team Description 08/05/2020 Lab Requisition [facility] Outr Resulting Lab, Pathology & Laboratory Provider [facility] [address] [place], [place] [id number] Social History Tobacco Use Types Packs/Day Years Used Date Never Assessed Sex Assigned at Date Recorded Not on file documented as of this encounter Plan of Treatment Not on filedocumented as of this encounter Procedures Procedure Name Priority Date/Time Associated Diagnosis Comme nts COVID-19 TEST [facility] Today 08/05/2020 16:25 LAB PCR EST COVID-19 TESTING Routine 08/05/2020 16:25 Results for this EST procedure are i n the results section. documented in this encounter Results COVID-19 TEST [facility] LAB PCR (08/05/2020 16:25 EST) Specimen Swab - Entire nasopharynx (body structur e) Performing Organization Address City/State/ZIP Code Phon e Number [facility] [address] [place] [address] SERVICES COVID-19 TESTING (08/05/2020 16:25 EST) COVID-19 rt-PCR Negative Negative [facility] Result Comment: [facility] This test [...] tions, patient history, and epidemiological informatio n. This test was developed and its performance characteristics determined by [facility]. It has not been cleared or approved by the [place] Food and Drug Administration. FDA does not require this test to go through premarket FDA review. This t est is used for clinical purposes. It should not be regarded as investigational or for research. This laboratory is certified under the Clinical Laboratory Improvement Amendm ents (CLIA) as qualified to perform high complexity clinical laboratory testing. This test is based on the CD C COVID-19 Emergency Use Authorization (EUA) assay, with minor modification as defined by the FDA Performed on the [employer] 7 Flex RT-PCR System. Performing Lab [facility] Lab [facility] SERVICES Specimen Swab Performing Organization Address City/State/ZIP Code Phon e Number [facility] [address] [place] [address] SERVICES documented in this encounter Visit Diagnoses Not on filedocumented in this encounter Care Teams Degreaser Operator Relationship Specialty Start Date End Date Hai Gallegos MD PCP - General 08/12/[address] [place] [phone] documented as of this encounter
--- OUTSIDE RECORDS SUMMARY | 2022-04-28 01:09 | XMS_ITS | Encounter Summary ---
:1960 Author Organization [place] [place] [address] Care Team Providers Name Role Phone ChengHai riley DO Primary Care Provider Encounter Details Date Type Department Care Team Description 02/23/2022 Laboratory Appointment Lab 3L [facility] ste[facility]hepat[facility]) [place] [id number] Social History Tobacco Use Types Packs/Day Years [...] Yuliana Hernandez MD [facility] [address] [place] [address] (Wo rk) 08/28/2022 Office Visit Gastroenterology Andrew Smith PA [facility] Dr [place] [address] (Wo rk) documented as of this encounter Procedures Procedure Name Priority Date/Time Associated Comments Diagnosis HEMOGRAM Routine 02/23/2022 8:38 AM BUI (nonalcoholic Res ults for this EDT steatohepatitis) procedure a re in the results section. DIFFERENTIAL, Routine 02/23/2022 8:38 AM BUI (nonalcoholic Re sults for this AUTOMATED EDT steatohepatitis) procedure a re in the results section. HC ALPHA FETOPROTEIN Routine 02/23/2022 8:38 AM BUI (nonalcoh olic Results for this TUMOR MARKER EDT steatohepatitis) procedure a re in the results section. HC PROTHROMBIN TIME Routine 02/23/2022 8:38 AM BUI (nonalcoho lic Results for this EDT steatohepatitis) procedure a re in the results section. HC CBC,PLT & AUTO DIFF Routine 02/23/2022 8:38 AM BUI (nonalc oholic EDT steatohepatitis) COMPREHENSIVE Routine 02/23/2022 8:38 AM BUI (nonalcoholic Re sults for this METABOLIC PANEL EDT steatohepatitis) procedur e are in (NON-FASTING) the results section. documented in this encounter Results Differential, Automated (02/23/2022 8:38 AM EDT) athologist Signature Neutrophils % 65.2 % [facility] Neutr Abs (ANC) 5.87 1.70 - [facility] 6.10 [facility] x10(3)/[facility] Lymphocytes % 25.5 % [facility] Lymphocytes Abs 2.3 0.9 - 3.2 [facility] x10(3)/[facility] LABORATORY Monocytes % 6.0 % [facility] Monocyte Abs 0.5 0.3 - 0.9 [facility] x10(3)/[facility] LABORATORY Eosinophils % 2.4 % [facility] Eosinophils Abs 0.2 0.0 - 0.4 [facility] x10(3)/[facility] LABORATORY Basophils % 0.6 % [facility] Basophils Abs 0.0 0.0 - 0.1 [facility] x10(3)/[facility] LABORATORY Immature Gran % 0.30 % [facility] Comment: Immature granulocytes(IG's)percentage an d absolute count will include metamyelocytes, myelocytes, and promyelo cytes. Blood smears from CBCs yielding IG's will be scanned manually for concor dance. If this scan disagrees with the automated IG or if promyelocytes are not ed, a manual differential will be performed. Elaina Gran Abs 0.03 0.00 - 0.04 x10(3)/[facility] MAR Y [facility] Specimen Anatomical Collection Method Collection Time Receive d Time (Source) Location / / Volume Laterality Blood 02/23/2022 8:38 AM 8:49 EDT AM EDT Resulting Agency Comment Spec In Lab Yuliana Hernandez MD HEMATOLOGY ORDERABLES Performing Organization Address City/State/[place] [address] (ABNORMAL) Hemogram (02/23/2022 8:38 AM EDT) Analysis Performed At Patho logist Time Signature WBC 9.0 4.0 - 9.5 [facility] x10(3)/[facility] LABORATORY RBC 6.07 (H) 4.00 - [facility] HEIDI 5.21 [facility] x10(6)/[facility] Hemoglobin 17.9 (H) 11.7 - [facility] 15.5 g/dL [facility] Hematocrit 53.8 (H) 35.7 - [facility] 45.8 % [facility] MCV 88.6 82.6 - [facility] 94.4 [facility] LABORATORY MCH 29.5 27.1 - [facility] 32.0 pg [facility] MCHC 33.3 31.7 - [facility] 35.0 g/dL [facility] Platelets 171 145 - 357 [facility] x10(3)/[facility] LABORATORY RDWSD 50.0 (H) 37.0 - [facility] [employer] 46.0 [facility] LABORATORY RDWCV 15.6 (H) 11.5 - [facility] [place] 14.1 % [facility] MPV 10.5 7.6 - 12.9 [facility] LABORATORY nRBC % Auto 0.0 % [facility] nRBC Abs Auto 0.000 0.000 - [facility] [place] 0.000 [facility] x10(3)/[facility] LAB[facility] Specimen Anatomical Collection Method Collection Time Receive d Time (Source) Location / / Volume Laterality Blood 02/23/2022 8:38 AM 8:49 EDT AM EDT Resulting Agency Comment Spec In Lab Yuliana Hernandez MD HEMATOLOGY ORDERABLES Performing Organization Address City/State/[place] [address] (ABNORMAL) Comprehensive metabolic panel (non-fasting) (02/23/2022 8:38 AM EDT) P athologist Signature Glucose Lvl 162 65 - 199 [facility] mg/dL [facility] Comment: Diabetes: >=200 mg/dL plus symp toms BUN 12 8 - 18 mg/dL [facility] Creatinine 0.69 (L) 0.70 - 1.20 mg/dL [facility] Sodium 139 135 - 145 mmol/L [facility] Potassium 4.1 3.5 - 5.0 mmol/L [facility] Comment: Please note: ??Patients with WBC >100,00 0 may have falsely elevated Potassium levels. ??For accurate Potassium quantif ication in these patients send serum separator tube (gold top) for subsequent determinations. ??Contact the Clinical Chemistry Laboratory if there are any qu estions. Chloride 102 98 - 107 mmol/L [facility] CO2 25 22 - 31 mmol/L [facility] Anion Gap 12 5 - 15 mmol/L [facility] Calcium 9.2 8.5 - 10.5 mg/dL [facility] Total Protein 7.6 6.1 - 8.0 g/dL [facility] Albumin 4.5 3.2 - 5.2 g/dL [facility] AST 25 0 - 30 unit/L [facility] ALT 15 0 - 30 unit/L [facility] Alk Phos 119 (H) 35 - 105 unit/L [facility] Total Bilirubin 0.3 0.2 - 1.3 mg/dL [facility] Estimated GFR 98 >=60 mL/min/1.73 m?? [facility] Comment: This patient's estimated GFR was [...] Hernandez MD CHEMISTRY ORDERABLES Performing Organization Address City/[facility]/[place] [address] Prothrombin Time (02/23/2022 8:38 AM EDT) athologist Signature PT 11.0 9.4 - 12.5 [facility] LABORATORY INR 1.0 [facility] Comment: An INR <2.0 indicates adequate [...] Hernandez MD HEMATOLOGY ORDERABLES Performing Organization Address City/[facility]/[place] [address] AFP tumor marker (02/23/2022 8:38 AM EDT) P athologist Signature AFP <1.9 <=8.3 ng/mL [facility] Comment: This result was generated using [...] Organization Address City/State/[place] [address] documented in this encounter Visit Diagnoses Diagnosis BUI (nonalcoholic steatohepatitis) Other chronic nonalcoholic liver disease documented in this encounter Care Teams Firmware Engineer Relationship Specialty Start Date End Date Hai Lopez DO PCP - General Family Medicine 10/10/17 4 [facility] [place] [address] documented as of this encounter
--- OUTSIDE RECORDS SUMMARY | 2022-04-28 01:09 | XMS_ITS | Encounter Summary ---
:1960 Author Organization [facility] Address [address] [place] [address] Care Team Providers Name Role Phone Hai Gallegos MD Primary Care Provider Encounter Details Date Type Department Care Team Description 08/11/2010 Results Only [facility] Stephane Marie MD Laboratory Services - [address] [place] [address] [place] [address] [phone] Social History Tobacco Use Types Packs/Day Years Used Date Never Assessed Sex Assigned at Date Recorded Not on file documented as of this encounter Plan of Treatment Not on filedocumented as of this encounter Procedures Procedure Name Priority Date/Time Associated Diagnosis [facility] SURGICAL PATHOLOGY Routine 08/11/2010 0:00 EST Re sults for this procedure are i n the results section. documented in this encounter Results SURGICAL PATHOLOGY (08/11/2010 0:00 EST) Pathology Report: SURGICAL PATHOLOGY REPORT ? ED DORSEY Reports generated via electr [facility] interface contain original data; ? LAB however they are lacking the format of the original report. ? Caution should be taken when reading/interpreting unformatted reports. ? Name: ? FAVREAU, MARY BETH L ? Accession #: ? [id number] ? : ? 1960 (Age: 49) ??F ? Collec t Date: ? 08/11/2010 ? Location: ? [facility] ? R eceive Date: ? 08/11/2010 ? Provider: ANTHONY MARIE MD ? Copy to: HAI Hoffman D ? Final Pathologic Diagnosis: ? Soft tissue, 35 cm, b iopsy: ? 1. ?Squamous mu cosa with rare intraepithelial eosinophils (less than ? 5/HPF) consistent with reflu x esophagitis. ? 2. ? Columnar mucosa wit h focally active mild chronic inflammation. ? 3. ?No Helicobact er pylori-like microorganisms identified on ? H&E-stained sections. ? 4. ?No goblet ebony l intestinal metaplasia identified. ? Document reviewed and electr onically signed by: ? CELESTE Morrell BUTNOChele REBOLLAR ? Report ??Date: 08/15/2010 11 :52 ? By the signature above, the attending physician certifies that he/she has ? personally conducted a gross and/or microscopic examination of the described ? specimens and rendered or co nfirmed the above diagnosis. ? Specimen(s) Received: ? Bx esophagus at 35 cm ? Clinical History: ? Epigastric pain ? Gross Description: ? Received in [place]' s fixative labelled [place], Mary Beth and bx esophagus 35 cm are four leonardo-pink tis sues averaging 0.3 x 0.3 x 0.2 cm. ??The specimens ?? are submitted as (A1) and (A 2). (Dr. Cai)/mpl ? End of Report ? Specimen Performing Organization Address City/[facility] Code Phon e Number [facility] [address] [place] [address] SERVICES [facility] [address] [place] [address] documented in this encounter Visit Diagnoses Not on filedocumented in this encounter Care Teams Card Game Operator Relationship Specialty Start Date End Date Hai Gallegos MD PCP - General 08/12/10 [address] [place] [address] documented as of this encounter
--- OUTSIDE RECORDS SUMMARY | 2022-04-28 01:09 | XMS_ITS | Encounter Summary ---
:1960 Author Organization [facility] [place] [address] Care Team Providers Name Role Phone Hai Lopez Corey MOORE Primary Care Provider Encounter Details Date Type Department Care Team Description 02/20/2019 Office Visit Gastroenterology at [facility] Perla Hernandez, BUI (nonalcoholic steatohep atitis); [facility] Lisa soto MD Hepatitis C virus infection without hepa tic coma, [place] [address] [facility] [phone] [place] [address] Social History Tobacco Use Types Packs/Day Years [...] Sign Reading Time Taken Comments Blood Pressure 138/80 02/20/2019 10:20 AM EDT Pulse 92 02/20/2019 10:20 AM EDT Temperature - - Respiratory Rate - - Oxygen Saturation - - Inhaled Oxygen Concentration - - Weight 89 kg (196 lb 4.8 oz) 02/20/2019 10:20 AM EDT Height 165.1 cm (5' 5) 02/20/2019 10:20 AM EDT Body Mass Index 32.67 02/20/2019 10:20 AM EDT documented in this encounter Progress Notes Perla Hernandez MD - 02/20/2019 10:30 AM EDT Gastroenterology and Hepatology Follow Up Note Patient: Mary Beth Holman : 1960 Provider: Perla Hernandez MD Problem List: #1 F3 liver fibrosis, SVR Hepatitis C #2 BUI - Fibroscan 09/2017: 10.2 kPa - EGD 10/2017: Negative for varices - CT 08/2017: Negative for HCC - U/S 02/2019: negative for HCC Interval History: She continues to have intermittent pain in the RUQ pain. She can have weeks to months between episodes. The RUQ bloating did not improve with stopping chewing gum. She stopped smoking for 6 months, butrestarted. She is planning on stopping again. She has been able to lose weight and her diabetes is under better control. She thinks the improvement is from use of essential oils. Current Outpatient Medications Medication Sig Dispense Refill ??? BD ULTRA-FINE MINI PEN NEEDLE 31 [...] current facility-administered medications for this visit. Vitals: 02/20/19 1020 BP: 138/80 BP Location (NBP): Right arm Patient Position: Sitting BP Cuff Sizes: Adult (25-34 cm) Pulse: 92 Weight: 89 kg (196 lb 4.8 oz) Height: 165.1 cm (5' 5) Body mass index is 32.67 kg/m??. Exam: Looks well Assessment and Plan: #1 Steatohepatitis with grade 3 fibrosis #2 Hep C SVR #3 BUI Continue with follow up every 6 months with labs and ultrasound. We discussed that her liver enzyme improved with weight loss, and given her risk factors she probably dose have some underlying BUI. #4 RUQ bloating Provided order for hepatic function to obtain when she has symptoms. Perla Hernandez MD Section of Gastroenterology & Hepatology [address] [place] [address] 20 minutes of this 20 minute visit was spent in discussion. Cc: Hai Lopez DO documented in this encounter Plan of Treatment Upcoming Encounters Date Type Specialty Care Team Description 08/28/2022 Laboratory Appointment Lab 08/28/2022 Appointment Radiology Perla Hernandez MD [facility] [address] [place] [address] (Wo rk) 08/28/2022 Office Visit Gastroenterology Andrew Smith PA [facility] [address] [place] [address] (Wo rk) documented as of this encounter Results AFP tumor marker (08/21/2019 9:23 AM EST) athologist Signature AFP 1.9 <=8.3 ng/mL [facility] Specimen Anatomical Collection Method Collection Time Receive d Time (Source) Location / / Volume Laterality Blood specimen 08/21/2019 9:23 AM 020 9:35 (specimen) EST AM EST Resulting Agency Comment Spec In Lab Perla Hernandez MD CHEMISTRY ORDERABLES Performing Organization Address City/State/ZIP Code Phon e Number [address] Prothrombin Time (08/21/2019 9:23 AM EST) athologist Signature PT 11.4 9.4 - 12.5 [facility] LABORATORY INR 1.0 [facility] [...] Organization Address City/State/ZIP Code Phon e Number [place] [id number] LAB[address] (ABNORMAL) Comprehensive metabolic panel (non-fasting) (08/21/2019 9:23 AM EST) P athologist Signature Glucose Lvl 212 (H) 65 - 199 [facility] mg/dL [facility] Comment: Diabetes: >=200 mg/dL plus symp toms BUN 13 8 - 18 mg/dL [facility] Creatinine 0.75 0.70 - 1.20 mg/dL [facility] Sodium 139 135 - 145 mmol/L [facility] Potassium 4.2 3.5 - 5.0 mmol/L [facility] Comment: Please note: ??Patients with WBC >100,00 0 may have falsely elevated Potassium levels. ??For accurate Potassium quantif ication in these patients send serum separator tube (gold top) for subsequent determinations. ??Contact the Clinical Chemistry Laboratory if there are any qu estions. Chloride 101 98 - 107 mmol/L [facility] CO2 27 22 - 31 mmol/L [facility] Anion Gap 11 5 - 15 mmol/L [facility] Calcium 9.5 8.5 - 10.5 mg/dL [facility] Total Protein 7.4 6.1 - 8.0 gm/dL [facility] Albumin 4.5 3.2 - 5.2 gm/dL [facility] AST 17 0 - 30 unit/L [facility] ALT 19 0 - 30 unit/L [facility] Alk Phos 116 (H) 35 - 105 unit/L [facility] Total Bilirubin 0.5 0.2 - 1.3 mg/dL [facility] Estimated GFR 87 >=60 mL/min/1.73 m?? [facility] Comment: The eGFR was calculated using the CKD-EP I equation. As with all creatinine based estimates of kidney function, eGFR values calculated with the CKD-EPI equation are not accurate in patients wi th acute kidney failure, extremes of body mass or the acutely ill. http://[employer]/Eashmartnkf eGFR 101 >=60 mL/min/1.73 m?? [facility] Comment: The eGFR was calculated using the CKD-EP I equation. As with all creatinine based estimates of kidney function, eGFR values calculated with the CKD-EPI equation are not accurate in patients wi th acute kidney failure, extremes of body mass or the acutely ill. http://[employer]/Cardeeonkf Specimen Anatomical Collection Method Collection Time Receive d Time (Source) Location / / Volume Laterality Blood specimen 08/21/2019 9:23 AM 020 9:40 (specimen) EST AM EST Resulting Agency Comment Spec In Lab Perla Hernandez MD CHEMISTRY ORDERABLES Performing Organization Address City/State/Z[place] [address] US Abdomen Limited Hepatology Protocol (08/21/2019 8:41 [...] questions regarding this report, please contact t marina number below. Electronically signed by: Babar munguia [facility] ([phone]), at 9:03 AM ? Babar Higuera, Staff Physician Electronically Signed Final Report ?? 09:11 am Narrative 08/21/2019 9:12 AM EST Abdominal ? (Signed Final 08/21/2019 09:11 am) PATIENT INFO: ID #: ? [id number] ?: ??[birth year] (58 yrs) Name: ? MARY BETH HOLMAN ?Visit Date: 08/21/2019 08:38 am PERFORMED BY: Performed By: ? More Mccullough RDMS Attending: ?Kalen REBOLLAR, Eleno Queen. Referred By: ?PERLA HERNANDEZ Location: ? [place] SERVICE(S) PROVIDED: ??[facility] - Hepatology Protocol - Abdom inal ? [id number] ??Limited Survey Single Organ or Quadra nt - ??[id number] INDICATIONS: ??s/p Hep C treatment, high grade [...] 09:1 1 am) PATIENT INFO: ID #: [id number] : [birth year] (58 y rs) Name: MARY BETH HOLMAN Visit Date: 08/21 08:38 am PERFORMED BY: Performed By: More Mccullough RDMS Attending: Babar Higuera MD Referred By: PERLA HERNANDEZ Location: [place] SERVICE(S) PROVIDED: [facility] - Hepatology Protocol - Abdomin al [id number] Limited Survey Single Organ or Quadrant - [id number] INDICATIONS: s/p Hep C treatment, high grade [...] questions regarding this report, please contact t marina number below. Electronically signed by: Babar munguia, Radiology [place] ([phone]), at 9:03 AM Babar Higuera, Staff Physician Electronically Signed Final Report 08/21 09:11 am Perla Hernandez MD IM US GEN ORDERABLES documented in this encounter Visit Diagnoses Diagnosis BUI (nonalcoholic steatohepatitis) Other chronic nonalcoholic liver disease Hepatitis C virus infection without hepa tic coma, unspecified chronicity BUI (nonalcoholic steatohepatitis) Other chronic nonalcoholic liver disease Hepatitis C virus infection without hepa tic coma, unspecified chronicity documented in this encounter Care Teams Door And Arrival Attendant Relationship Specialty Start Date End Date Hai Lopez DO PCP - General Family Medicine 10/10/[address] [place] [address] documented as of this encounter
--- OUTSIDE RECORDS SUMMARY | 2022-04-28 01:09 | XMS_ITS | Encounter Summary ---
:1960 Author Organization [facility] [place] [address] Care Team Providers Name Role Phone ChengHai riley DO Primary Care Provider Encounter Details Date Type Department Care Team Description 02/12/2019 Hospital Encounter Ultrasound at [facility] Perla eHrnandez, Hepatitis C virus [facility] MD infection without Drive [facility] hepatic coma, [facility] Dr unspecified [id number] [place], [place] chronicity [phone] [id number] Social History Tobacco Use Types Packs/Day Years [...] Sig Dispensed Refills Start Date End Date BD ULTRA-FINE MINI PEN USE DAILY WITH [...] Lab 08/28/2022 Appointment Radiology Perla Hernandez MD [facility] [address] [place] [address] (Wo rk) 08/28/2022 Office Visit Gastroenterology Andrew Smith PA [facility] [address] [place] [address] (Wo rk) documented as of this encounter Procedures Procedure Name Priority Date/Time Associated Diagnosis Comme nts US ABDOMEN LIMITED Routine 02/12/2019 11:05 Hepatitis C virus Results for this HEPATOLOGY PROTOCOL AM EDT infection without pro cedure are in hepatic coma, the results unspecified section. chronicity documented in this encounter Results US Abdomen Limited Hepatology Protocol (02/12/2019 11:05 AM EDT) Anatomical Region Laterality Modality Abdomen Ultrasound Specimen (Source) Anatomical Collection Method Collection Time Re ceived Time Location / / Volume Laterality 02/12/2019 11:06 AM EDT Impressions 02/12/2019 11:17 AM EDT ?? Smooth capsule homogeneous hepatic p arenchymal echotexture without focal lesion nor biliary dilati on. No visualized ascites. Thank you for letting us participate in the care of this patient. For questions regarding this report, please contact t he number below. 11: 10 AM ? Lakisha Lane, Staff Physician Electronically Signed Final Report ?? 11:16 am Narrative 02/12/2019 11:17 AM EDT Abdominal ? (Signed Final 02/12/2019 11:16 am) PATIENT INFO: ID #: ? [id number] ?: ??[birth year] (58 yrs) Name: ? MARY BETH ANTUNEZ ?Visit Date: 02/12/2019 11:06 am PERFORMED BY: Performed By: ? Daren Rolle RDMS Attending: ?Domingo REBOLLAR, Lakisha Douglas Referred By: ?PERLA HERNANDEZ Location: ? [place] SERVICE(S) PROVIDED: ??UABDLIM - Hepatology Protocol - Abdom inal ? [id number] ??Limited Survey Single Organ or Quadra nt - ??[id number] INDICATIONS: ??F3 fibrosis, hep c in SVR, hcc screen ing COMPARISON: Ultrasound: AB RODRIGUEZ 08/22/18 ------ LIVER: ------ Right Lobe Length: ?? 17.4 ?? cm Echogenicity/Echotexture: ?? Normal Portal Veins: ?Hepatopetal Comment: ?No focal lesions seen. No surface nodularity seen. GALLBLADDER: Cholelithiasis: ?No stones visua lized Wall Thickness: ?Normal wall thi ckness Focal Tenderness: ?Negative sonogra phic Becerril's sign BILIARY TRACT: Intrahepatic Ducts: ?? Normal Extrahepatic Ducts: ?? Normal Common Duct Size: ? 4.0 ? mm FLUID COLLECTIONS: No ascites in the imaged RUQ & RLQ. Procedure Note Lakisha Lane MD - 02/12/2019 Abdominal (Signed Final 02/12/2019 11:1 6 am) PATIENT INFO: ID #: [id number] : [birth year] (58 y rs) Name: MARY BETH ANTUNEZ Visit Date: 02/12 11:06 am PERFORMED BY: Performed By: Daren Rolle RDMS Attending: Lakisha Lane MD Referred By: PERLA HERNANDEZ Location: [place] SERVICE(S) PROVIDED: UABDLIM - Hepatology Protocol - Abdomin al [id number] Limited Survey Single Organ or Quadrant - [id number] INDICATIONS: F3 fibrosis, hep c in SVR, hcc screenin g COMPARISON: Ultrasound: AB RODRIGUEZ 02/14/19 ------ LIVER: ------ Right Lobe Length: 17.4 cm Echogenicity/Echotexture: Normal Portal Veins: Hepatopetal Comment: No focal lesions seen. No surf michael nodularity seen. GALLBLADDER: Cholelithiasis: No stones visualized Wall Thickness: Normal wall thickness Focal Tenderness: Negative sonographic Becerril's sign BILIARY TRACT: Intrahepatic Ducts: Normal Extrahepatic Ducts: Normal Common Duct Size: 4.0 mm FLUID COLLECTIONS: No ascites in the imaged RUQ & RLQ. IMPRESSION Smooth capsule homogeneous hepatic pare nchymal echotexture without focal lesion nor biliary dilati on. No visualized ascites. Thank you for letting us participate in the care of this patient. For questions regarding this report, please contact t he number below. 11: [address], Staff Physician Electronically Signed Final Report 02/12 11:16 am Perla Hernandez MD [facility] GEN ORDERABLES documented in this encounter Visit Diagnoses Diagnosis Hepatitis C virus infection without hepa tic coma, unspecified chronicity documented in this encounter Care Teams Tobacco Acreage Measurer Relationship Specialty Start Date End Date Hai Lopez DO PCP - General Family Medicine 10/10/[address] [place] [address] documented as of this encounter
--- OUTSIDE RECORDS SUMMARY | 2022-04-28 01:09 | XMS_ITS | Encounter Summary ---
:1960 Author Organization [facility] [place] [address] Care Team Providers Name Role Phone Hai Lopez DO Primary Care Provider Reason for Visit Reason Comments Weight Management Follow-up Encounter Details Date Type Department Care Team Description 10/25/2018 Office Visit Weight and Wellness Sri Briseno, [place] 1 obesity due to excess calories with serious comorbidity and body mass index (BMI) of 33.0 to 33.9 in adult; at [facility] Suspected sleep apnea; [facility] Type 2 diabetes mellitus wit h hyperglycemia, with long-term current use of insulin; [place], [place] Dr BUI (nonalcoholic steatohepatitis) [id number] [place] [address] [phone] Social History Tobacco Use Types Packs/Day Years [...] Sign Reading Time Taken Comments Blood Pressure 140/84 10/25/2018 1:56 PM EDT Pulse 98 10/25/2018 1:56 PM EDT Temperature - - Respiratory Rate 16 10/25/2018 1:56 PM EDT Oxygen Saturation 97% 10/25/2018 1:56 PM EDT Inhaled Oxygen Concentration - - Weight 90.9 kg (200 lb 8 oz) 10/25/2018 1:56 PM EDT Height 165.1 cm (5' 5) 10/25/2018 1:56 PM EDT Body Mass Index 33.36 10/25/2018 1:56 PM EDT documented in this encounter Patient Instructions Patient InstructionsCuSri delgado MD - 10/25/2018 2:00 PM EDT GOALS 1) Talk with your mother about keeping her treats and snacks in her room or in a cupboard that you don't use 2) Continue tracking, with a daily calorie goal of 1200, and at least 60 grams of protein (20 - 25 grams per meal) 3) Begin walking 3 days per week on the 2-mile loop near your house Follow up with Dr Briseno in 3 months Follow up with our dietitian Miroslava in 4 months Plan to join the ACTion group with Dr Velez when classes are available (likely late summer) HEALTHY LIFESTYLES PROGRAM This is a year-long intensive lifestyle modification program offered by the [facility]. The program begins with 16 weekly classes (taught by our health coaches, dietitians and nurses)that focus on healthy eating, healthy movement and healthy living. These classes involve a combination of education, empowerment and accountability, and are designed to help people make--and sustain--healthy lifestyle changes. Participants are seen regularly by our physicians and dietitians throughout the 12 month program; our physicians supervise the program and may prescribe weight loss medications as needed, while our dietitians make tailored dietary recommendations. Participants also have access to our health coaches--who assist when you encounter barriers to progress--throughout the program. In addition, we offer individual and group-based sessions with our clinical psychologist to address emotional eating, binge eating, and food cravings (group sessions are called the ACTion program). Healthy cooking classes are also available. This program is designed to support highly-motivated individuals, and requires a significant commitment of time and energy. In order to participate, you must be able to commit to attending at least 13 of the 16 scheduled classes, and must also attend all scheduled appointments with our physicians and dietitians. documented in this encounter Progress Notes Sri Briseno MD - 10/25/2018 2:00 PM EDT [facility] Visit Patient Name: Mary Beth Holman Date of : 1960 Age: [address] Hai Lopez, DO Thank you for referring Mary Beth Holman to the [facility] for consultation regarding obesity. CHIEF COMPLAINT: Follow-up for Obesity INTERVAL HISTORY / PROGRESS TOWARD GOALS: [x] I reviewed past / interim records including notes and labs. Mary Beth is participating in our Obesity Medicine Pathway, and hopes to transition to the Healthy Lifestyles Program. She was last seen by me on 09/27/18, and by our dietitian and health elementary instructional coach on . Weight has decreased 1.5 pounds since our last visit. She reports that she the visit with the dietitian was very helpful--she has cut out chips completelyas a result. She has been tracking via the [employer], and is shooting for 1200 calories per day. She is also focusing on increased protein intake with a goal of 20-25 grams per meal, but finds it is difficult at most meals--although yesterday she got 58 grams of protein through the day. She is limiting her fruit intake to during a meal, once a day. Blood sugars have improved overall--lower fasting glucose levels (130s - 140s, compared to 180s prior) while evening values are more variable, from the 190s - 270s. With regards to exercise, she tracks steps daily and gets a variable number based on whether she works or not--she gets around 7000 on work days 3-4 days per week, and more like 2000 on days at home. She plans to start walking as the weather improves. 24 hour diet recall: - Breakfast: Small banana, 2 slices of wheat toast with butter - Lunch: Whole ham sandwich with mayonnaise on wheat bread - Dinner: Flame-broiled steak tips, bulgarian fries, garden salad with oil and vinegar dressing - Snacks: None - Drinks: 2 cups coffee with cream and Truvia, 5-6 Diet Snapple iced tea - Dessert: [place] oatmeal pie PREVIOUS LABS: Lab Results Component Value Date CHLPL 257 09/27/2018 Lab Results Component Value Date HDL 45 09/27/2018 Lab Results Component Value Date LDLCHOL Not Calculated 09/27/2018 Lab Results Component Value Date TRIG 414 09/27/2018 Lab Results Component Value Date CHOLHDL 5.7 09/27/2018 Lab Results Component Value Date HA1C 7.7 (H) 09/27/2018 No results found for: GLUCFASTING Lab Results Component Value Date AST 28 08/22/2018 ALT 35 (H) 08/22/2018 [facility] Followup Responses 09/27/2018 URICA - Readiness Score 11.66 WEL-SF Total Scores 72 PROMIS 6B Scores 38.5 PHQ-2 SubScore 1 (Brief screen negative) GAD2 Subscore 2 (Brief screen negative) MOHSEN 7 Total Scores 4 (Minimal Anxiety) PROMIS 10 Physical Scores 37.4 PROMIS 10 Mental Scores 38.8 IPAQ - SF Scores 3 Total REAP-S Scores 21 TFEQ - Uncontrolled Eating (UE) 37.03 TFEQ-Cognitive Restraint (CR) 33.33 TFEQ-Emotional Eating 55.55 Food Insecurity Score 2 Days absent from work/school because of weight None Worried food would run out before we got money to buy more Never true Food didnt last; no money to get more Never true REVIEW OF SYSTEMS: see above HPI for additional pertinent +/- findings Constitutional: NL appetite and energy. Psychiatric: No anxiety, depression VITAL SIGNS: Vitals: 10/25/18 1356 BP: 140/84 Pulse: 98 Resp: 16 SpO2: 97% Weight: 90.9 kg (200 lb 8 oz) Height: 165.1 cm (5' 5) Body mass index is 33.36 kg/m??. Last 5 weight values: Wt Readings from Last 5 Encounters: 10/25/18 90.9 kg (200 lb 8 oz) 09/27/18 91.6 kg (202 lb) 08/22/18 88.3 kg (194 lb 9.6 oz) 05/10/18 84.5 kg (186 lb 4.8 oz) 10/26/17 83.6 kg (184 lb 6.4 oz) PHYSICAL EXAM: Gen: Alert and active, NAD. + central adiposapthy Skin: Warm, pink, no rashes HEENT: NC/AT, EOMI, clear conjunctiva, MMM Neck: supple and thick Neuro: Alert and oriented Psych: NL affect today SUMMARY OF VISIT AND RECOMMENDATIONS: Mary Beth Holman was seen in follow up today and an updated medical, diet and activity review was completed. Additional goals were set for changes in health habits (see below) as was a plan for evaluation and treatment of obesity related co-morbidities. Medical issues and plan: Class I Obesity: ?? Mary Beth is currently participating in the Obesity Medicine Pathway at the [facility], but feels well-equipped and motivated to transition to the Healthy Lifestyles Program today. ?? Goal setting: ?? Talk with your mother about keeping her treats and snacks in her room or in a cupboard that you don't use ?? Continue tracking, with a daily calorie goal of 1200, and at least 60 grams of protein (20 - 25 grams per meal) ?? Begin walking 3 days per week on the 2-mile loop near your house ?? Plan to join ACTion group when available this summer Type II DM: ?? HLP: Nutrition and activity recommendations to promote healthy weight ?? Medical management recommendations: Intolerant of metformin; maintained on empagliflozin and glargine. She is following closely with her PCP for insulin titration, with a goal of reduced insulin use/need in the context of healthy diet choices and weight loss. Hyperlipidemia: ?? Nutrition and activity recommendations to promote healthy weight BUI: ?? Followed closely by GI, with 10% total body weight loss goal Suspected JEAN-PAUL: ?? Scheduled for evaluation in sleep clinic in December/ in: 3 months I spent a total of 30 minutes with the patient 20 minutes of which were spent in [id number] discussion/counseling re obesity, nutrition and activity as well as obesity related co-morbidities documented in this encounter Plan of Treatment Upcoming Encounters Date Type Specialty Care Team Description 08/28/2022 Laboratory Appointment Lab 08/28/2022 Appointment Radiology Yuliana Hernandez MD [facility] [address] [place] [address] (Wo rk) 08/28/2022 Office Visit Gastroenterology Andrew Smith PA [facility] [address] [place] [address] (Wo rk) documented as of this encounter Visit Diagnoses Diagnosis Class 1 obesity due to excess calories w ith serious comorbidity and body mass index (BMI) of 33.0 to 33.9 in adult Suspected sleep apnea Type 2 diabetes mellitus with hyperglyce cuco, with long-term current use of insulin BUI (nonalcoholic steatohepatitis) Other chronic nonalcoholic liver disease documented in this encounter Care Teams Coagulating Bath Operator Relationship Specialty Start Date End Date Hai Lopez DO PCP - General Family Medicine 10/10/17 [address] [place] [address] documented as of this encounter
--- OUTSIDE RECORDS SUMMARY | 2022-04-28 01:10 | XMS_ITS | Encounter Summary ---
:1960 [place] [address] Care Team Providers Name Role Phone Hai Gallegos MD Primary Care Provider [phone] Reason for Visit Auth/Cert Specialty Diagnoses / Procedures Referred By Contact Refer red To Contact Diagnoses Sialadenitis sialadenitis Procedures PRO EXCISION SUBMAXILLARY GLAND EXCISION SUBMANDIBULAR (SUBMAXILLARY) [facility] Referral ID Status Reason Start Date Expiration Date Visits Requ ested Visits Authorized [id number] 1 1 Encounter Details Date Type Department Care Team Description 02/23/2017 Surgery Main Operating Room Salty Butler SUBMANDIBULAR Yuliana Nicole MD (SUBMAXILLARY) GLAND-GARY [facility] ([facility] [place] [address] DEPT. [phone] [place], [place] [address] (Wo rk) Social History Tobacco Use Types Packs/Day Years Used Date Current Every Day Smoker Cigarettes 0.5 40 Smokeless Tobacco: Never Used Alcohol Use Standard Drinks/Week Comments No 0 (1 standard drink = 0.6 oz pure alcoho l) Sex Assigned at Date Recorded Not on file documented as of this encounter Last Filed Vital Signs Vital Sign Reading Time Taken Comments Blood Pressure 107/77 02/23/2017 11:00 AM EDT Pulse 93 02/23/2017 7:12 AM EDT Temperature 37 ??C (98.6 ??F) 02/23/2017 7:12 AM EDT Respiratory Rate 16 02/23/2017 7:12 AM EDT Oxygen Saturation 97% 02/23/2017 11:00 AM EDT Inhaled Oxygen Concentration - - Weight 93.4 kg (206 lb) 02/23/2017 7:12 AM EDT Height 165.1 cm (5' 5) 02/23/2017 7:12 AM EDT Body Mass Index 34.28 02/23/2017 7:12 AM EDT documented in this encounter Discharge Instructions Discharge InstructionsLeighann Barclay RN - 02/23/2017 11:21 AM EDT POST ANESTHESIA INSTRUCTIONS Go home, rest, use caution on stairs. Change positions slowly. Do not smoke if you are alone. Diet light to regular as tolerated today. If nausea occurs start with clear liquids and progress slowly. No driving, operating machinery, alcoholic beverages and no important decisions for 24 hours. Monitor IV site for signs and symptoms of infection: increasing redness, swelling, foul drainage, ifoccurs contact M.D. Patients who have had endotrachial tubes (this tube, used by anesthesia department, is passed down your throat after you are asleep, to ensure safe air passage during your operation). A sore throat is normal due to the tube. Cold liquids or soothing lozenges will help ease the discomfort. The generalized muscle aches are due to the medication given to you just before the tube is inserted. As the medication wears off, you may develop muscle soreness, which usually goes away in 12-24 hours. Next dose of acetaminophen (tylenol) can be taken at . Patient InstructionsBerry Montez PA - 02/23/2017 10:30 AM EDT No heavy/lifting for 5 days. Resume your normal diet over the next 48 hours. Keep the wound dry for the next 48 hours hours. Wound care instructions: -Apply bacitracin to the wound twice a day -If wound becomes crusted, clean with hydrogen peroxide Take the prescription pain killer as needed if Tylenol or ibuprofen is not sufficient. You will need a follow-up visit next week to review the pathology and discuss further treatment plans. You will have a follow-up visit scheduled for you, if this was not already arranged at the time of booking your surgery. At that visit, your future plan of care will be discussed. Should you have questions, please call [phone] during business hours. After hours, call [phone] and ask to speak with the ENT resident regional sales associate. documented in this encounter Medications at Time of Discharge Medication Sig Dispensed Refills Start End Date Date ONETOUCH ULTRA TEST Strip 0 5 ONE TOUCH DELICA 33 gauge 0 Misc 5 lisinopril Take 20 mg by mouth 0 (PRINIVIL;ZESTRIL) 20 mg daily. 5 Tablet omeprazole (PRILOSEC) 40 Take 40 mg by mouth 0 mg Capsule, Delayed daily. 5 Release(E.C.) albuterol (PROVENTIL Inhale 2 puffs into the 0 HFA;VENTOLIN HFA;PROAIR) lungs every 4 hours as 90 mcg/actuation HFA needed for Wheezing. Use Aerosol Inhaler with spacer oxyCODONE (ROXICODONE) 5 Take 1 tablet by mouth 10 tablet 0 09/28/ mg Tablet every 4 hours as needed 7 1 8 for Pain. oxyCODONE (ROXICODONE) 5 Take 2.5 mg by mouth 0 10/10/20 mg Tablet every 8 hours as needed 1 8 for Pain. empagliflozin (JARDIANCE) Take 10 mg by mouth 0 09/28/19 10 mg Tablet daily. 19 UNABLE TO FIND as needed. Med Name: 0 09/28/19 taking humalog 19 insulin//taking 2 to 20 units as needed insulin glargine Solution Inject 50 Units 0 10/11/19 subcutaneously nightly. 1 8 cyclobenzaprine Take 5 mg by mouth as 0 10/27/19 (FLEXERIL) 5 mg Tablet needed. 18 atorvastatin (LIPITOR) 10 Take 10 mg by mouth 0 09/28/19 mg TabletIndications: daily. Indications: 19 hypercholesterolemia Hypercholesterolemia documented as of this encounter H&P Notes Berry Montez PA - 02/23/2017 8:34 AM EDT OTOLARYNGOLOGY - HEAD & NECK SURGERY PRE OP H&P Name: Mary Beth Holman Age/Sex: 56 y.o. female Attending: Salty Butler MD Interval History Mary Beth Holman's condition unchanged since H&P originally performed. Denies any new ED visits, hospitalizations, trauma, or new events. Has been overall doing well. He denies recent fevers, chills, headaches, chest pain, issues with breathing, nausea, vomiting, and/or changes in bowel habits Vitals Last value 24hr Range Temperature: 37 ??C (98.6 ??F) Temp: [37 ??C (98.6 ??F)] Heart Rate: 93 Heart Rate: [93] Blood Pressure: 153/84 BP: (153)/(84) Respiratory Rate: 16 Resp: [16] SpO2: 96 % SpO2: [96 %] Physical Exam General: NAD, alert. Heart: RRR Lungs: CTAB Neuro: Normal sensation and ROM in hands and feet bilaterally. ASSESSMENT & PLAN Mary Beth Holman is a 56 y.o. female who is here today due to sialadenitis. After extensive discussion of the risks, benefits, and alteratives of surgical intervention, the patient consented to proceed with surgery. Proceed to OR for: Procedure(s): EXCISION SUBMANDIBULAR (SUBMAXILLARY) GLAND-GARY ([facility] 6.14) __ GOMEZ Myles 02/23/17 8:35 AM documented in this encounter Miscellaneous Notes Op Note - Salty Butler MD - 02/23/2017 10:05 AM EDT [facility] [place] Patient Name: Mary Beth Holman : [id number] MR#: [id number] Case Date: 02/23/2017 Surgeon: Surgeon(s) and Role: * Salty Butler MD - Primary * Berry Montez PA Preoperative diagnosis: sialadenitis Postoperative diagnosis: sialadenitis Procedure(s) (LRB): EXCISION SUBMANDIBULAR (SUBMAXILLARY) GLAND-GARY ([facility] 6.14) (Left) : PA/BARBI healthcare administrative assistant surgeon (no qualified resident available) Anesthesia: General Estimated Blood Loss: 15 ml Fluids: 650 ml LR Specimens removed during surgery: left submandibular gland Drains: Surgical Closure: Primary Closure - closure of ALL tissue levels during the original surgery regardless of wires, wickes, drains, or other devices extruding through the incision Disposition: awakened from anesthesia, extubated and taken to the recovery room in a stable condition, having suffered no apparent untoward event. Condition: doing well without problems (Please see the Surgical Encounter Summary for any Implant and Specimen details pertinent to this patient.) HPI/Surgical Indications: 56 yo with history of recurrent sialadenitis and sialolithiasis. She has had limited improvement in frequency with medical management. Brought to OR for excision of gland. Procedure Description: Informed consent obtained. Patient placed udner GA and timeout performed. Table turned 180 and patient prepped and draped for above. A linear incision 2 fingerbreadths below the mandible was marked and injected with 1% xylocaine [id number] epinephrine. Incision made through skin, fat and platysma. Some subplatysmal elevation performed. Dissection then carried down to the gland and the fascia was carefully mobilized off the gland, taking care to preserve the marginal mandibular nerve. The branches of the facial artery and vein going to the gland were identified and ligated. The gland was then mobilized off of the diagastric muscle and the mylohyoid. The mylohyoid muscle was retracted to expose the lingual nerve and the duct. The parasympathetic branch coming off the lingual nerve was skeletonized and ligated. The duct was also skeletonized and followed under the lingual nerve. No stones were identified in the duct or the hilum of the gland. The duct was then ligated high. The gland was further mobilized and removed. Valsalva was performed with no bleeding. Gelfoam with thrombin was placed deep to the mylohyoid and in the submandibular defect. The incision was closed in layers, 4-0 vicryl for the platysma and running 4-0 monocryl for the skin with steristrips. No complications. Attestation: Case Date: 02/23/2017 I performed this procedure without the involvement of a resident. SALTY BUTLER MD 02/23/2017 documented in this encounter Plan of Treatment Upcoming Encounters Date Type Specialty Care Team Description 08/28/2022 Laboratory Appointment Lab 08/28/2022 Appointment Radiology Yuliana Hernandez MD [facility] [address] [place] [address] (Wo rk) 08/28/2022 Office Visit Gastroenterology Andrew Smith PA [facility] [place] [address] (Wo rk) documented as of this encounter Procedures Procedure Name Priority Date/Time Associated Diagnosis Comme nts POCT GLUCOSE Routine 02/23/2017 10:41 Results for this AM EDT procedure are i n the results section. SURGICAL PATHOLOGY Routine 02/23/2017 10:01 Resul ts for this REPORT AM EDT procedure are i n the results section. SPECIMEN TO PATHOLOGY Routine 02/23/2017 10:01 Re sults for this AM EDT procedure are i n the results section. EXCISION SUBMANDIBULAR 02/23/2017 8:36 Sialadenitis (SUBMAXILLARY) AM EDT GLAND-GARY ([facility] 6.14) POCT GLUCOSE Routine 02/23/2017 7:24 Results for this AM EDT procedure are i n the results section. documented in this encounter Results POCT Glucose (02/23/2017 10:41 AM EDT) P athologist Signature POC Glucose 154 65 - 199 [facility] mg/dL [facility] Comment: Supplemental ranges: <140 mg/dL before meals <180 mg/dL all other times of the day Specimen Anatomical Collection Method Collection Time Receive d Time (Source) Location / / Volume Laterality Blood specimen 02/23/2017 10:41 7 (specimen) AM EDT 10:41 AM EDT Salty Butler MD POINT OF CARE TEST ORDERABLE S Performing Organization Address City/State/ZIP [place] [address] Surgical Pathology Report (02/23/2017 10:01 AM EDT) Component Value Ref Test Analysis Performed At [facility] gist Range Method Time Signature Surgical [id number] ? Location: [facility]; [facility]; A [facility] Report The signing pathologist has (i) examined the relevant preparation(s) for the MEMORIAL specimen(s) and (ii) rendered or confirmed the diagnosis(es) . HOSPITAL LABORATORY . ?Surgic al Pathology DIAGNOSIS A - Left submandibular gland, resection: Submandibular gland with rar e mild acinar atrophy, minimal chronic inflammation, and a rare intraductal calcification. Electronically signed by: ??Rodo Vu MD Verified: ??02/27/2017 ?Pathologist CLINICAL INFORMATION Specimen Submitted: A - Left submandibular gland Clinical History: Sialadenitis Clinical Diagnosis: Same SPECIMEN PROCESSING A - ??Labeled/Fixative: Left submandibular gland, fresh. Quantity/Size: Single, 4.5 x 2.5 x 2.1 cm, 13 gram. Tissue Description: Wu lobular tissue with a focally caut erized surface. A lobular cut surface demonst rate scattered erythema, although no solid lesions are identified. The central mikaela t is patent and averages 0.2 cm in diameter, with no calculi identified. Sections/Processing: Inked and serially sectioned. (R4) ??ra k Specimen (Source) Anatomical Collection Method Collection Time Re ceived Time Location / / Volume Laterality 02/23/2017 10:01 AM EDT Salty Butler MD PATHOLOGY/CYTOLOGY ORDERABLE S Performing Organization Address City/State/[place] [address] Specimen to Pathology (surgical or derm) (02/23/2017 10:01 AM EDT) Specimen Anatomical Collection Method Collection Time Receive d Time (Source) Location / / Volume Laterality AP Specimen 02/23/2017 10:01 02/23/2017 AM EDT 10:01 AM EDT Narrative [facility] - 02/23/2017 10:01 AM EDT Specimen requisition ordered. ??Separate Pathology report to follow Salty Butler MD PATHOLOGY/CYTOLOGY ORDERABLE S Performing Organization Address City/[facility]/ZIP Code Phon e Number [address] POCT Glucose (02/23/2017 7:24 AM EDT) P athologist Signature POC Glucose 147 65 - 199 [facility] mg/dL [facility] Comment: Supplemental ranges: <140 mg/dL before meals <180 mg/dL all other times of the day Specimen Anatomical Collection Method Collection Time Receive d Time (Source) Location / / Volume Laterality Blood specimen 02/23/2017 7:24 AM 017 7:24 (specimen) EDT AM EDT Slaty Butler MD POINT OF CARE TEST ORDERABLE S Performing Organization Address City/State/ZIP Code Phon e Number [address] documented in this encounter Visit Diagnoses Diagnosis Sialadenitis Sialoadenitis documented in this encounter Administered Medications Inactive Administered Medications - up to 3 most recent administrations Medication Order MAR Action Action Date Dose Rate Site acetaminophen (TYLENOL) tablet Given 02/23/2017 7:30 AM EDT 1,00 0 mg 1,000 mg 1,000 mg, Oral, ONCE, 1 dose, On Sun02/23/17 at 0730, Maximum dose of acetaminophen is 4000 mg from all sources in 24 hours., Day of Surgery (Day of Procedure), Routine ampicillin-sulbactam (UNASYN) 3 g vial attach New Bag 9:02 AM EDT 3 g to sodium chloride 0.9% 100 mL Mini-Bag Plus 3 g, Intravenous, EVERY 6 HOURS SCHEDULED, First dose on Sun02/23/17 at 1200, Until Discontinued, Administer over 30 Minutes, Warning Vesicant/Irritant Medication , Indication for (Active or Suspected): Prophylaxis fentaNYL 50mcg/mL injection Given 02/23/2017 11:01 AM EDT 25 mcg 25 mcg, Intravenous, EVERY 5 MIN PRN, Starting on Sun02/23/17 at 1007, Until Sun02/23/17 at 1145, Pain, for 1-4 pain score, for 1-4 pain score Hold for respiratory rate less than 10 per minute. Maximum dose: 250 mcg over one hour., PACU Recovery, Routine gabapentin (NEURONTIN) capsule 600 mg Given 02/23/2017 7:30 AM EDT 600 mg 600 mg, Oral, ONCE, 1 dose, On Sun02/23/17 at 0730, Day of Surgery (Day of Procedure), Routine gelatin adsorbable (GELFOAM) Given 02/23/2017 9:58 AM EDT 2 each 19- Surgical Site sponge ONCE PRN, Starting on Sun02/23/17 at 0958, Until Sun02/23/17 at 1350, Intra-Operative (Intra-Procedure) lactated Ringers infusion 1,000 mL New Bag 02/23/2017 8:37 AM EDT 1,000 mL, at 100 mL/hr, Intravenous, CONTINUOUS, Starting on Sun02/23/17 at 0730, Until Sun02/23/17 at 1145, Day of Surgery (Day of Procedure) New Bag 02/23/2017 7:29 AM EDT 1,000 mLs 100 mL/hr lidocaine (XYLOCAINE) 10 mg/mL (1 %) injection Given 0 02/23/2017 7:29 AM EDT 3 mg 3 mg 3 mg (0.3 mL), Subcutaneous, ONCE PRN, 1 dose, Starting on Sun02/23/17 at 0712, Until Sun02/23/17 at 0729, for discomfort with PIV insertion, Day of Surgery (Day of Procedure), Routine lidocaine-EPINEPHrine 1 Given 02/23/2017 9:19 AM 4 mLs 19- Surgical Site %-1:200,000 injection EDT ONCE PRN, Starting on Sun02/23/17 at 0919, Until Sun02/23/17 at 1350, Intra-Operative (Intra-Procedure), Routine oxyCODONE (ROXICODONE) immediate release Given 02/23/2017 11:30 AM EDT 2.5 mg tablet 5 mg 5 mg, Oral, ONCE, 1 dose, On Sun02/23/17 at 1130, Routine thrombin (bovine) Given 02/23/2017 9:57 AM 5,000 Units 19- Surgical Site (THROMBIN-JMI) solution EDT ONCE PRN, Starting on Sun02/23/17 at 0957, Until Sun02/23/17 at 1350, Intra-Operative (Intra-Procedure) documented in this encounter Active and Recently Administered Medications Times are shown in EDT. Scheduled Medication Order 02/21/2017 02/22/2017 02/23/2017 acetaminophen (TYLENOL) tablet 1,000 mg (COMPLETED) 729 (Given - Provider: Carmen Basurto RN) 1,000 mg, Oral, ONCE, 1 dose, Sun 7 at 0730, Maximum dose of acetaminophen is 4000 mg from all sources in 24 hours., Day of Surgery (Day of Procedure), Routine ampicillin-sulbactam (UNASYN) 3 g vial a ttach to sodium chloride 0.9% 100 mL Mini-Bag Plus 0902 (New Bag - Prov ider: Niurka Quinteros CRNA) 3 g, Intravenous, EVERY 6 HOURS SCHEDULE D, First dose on Sun02/23/17 at 1200, Until Discontinued, Administer over 30 Minutes, Warning Vesicant/Irritant Medication , Indication for (Active or Suspected): Prophylaxis gabapentin (NEURONTIN) capsule 600 mg (COMPLETED) 729 (Given - Provider: Carmen Basurto RN) 600 mg, Oral, ONCE, 1 dose, Sun02/23/17 at 0730, Day of Surgery (Day of Procedure), Routine oxyCODONE (ROXICODONE) immediate release tablet 5 mg (COMPLETED) 1130 (Given - Provider: Leighann Barclay RN) 5 mg, Oral, ONCE, 1 dose, Sun02/23/17 at 1130, Routine Continuous Medication Order 02/21/2017 02/22/2017 02/23/2017 lactated Ringers infusion 1,000 mL (CANCELED) 07 (New Bag - Provider: Carmen S Sb, RN)0837 (New Bag - Provider: Niurka Quinteros CRNA)1020 (Anesthesia Volume Adjustment - Provider: Niurka Quinteros CRNA)1039 (Anesthesia Volume Adjustment - Provider: Niurka Quinteros CRNA) 1,000 mL, at 100 mL/hr, Intravenous, CON TINUOUS, Starting Sun02/23/17 at 0730, Until Sun02/23/17 at 1145, Day of Surgery (Day of Procedure) PRN Medication Order 02/21/2017 02/22/2017 02/23/2017 fentaNYL 50mcg/mL injection (CANCELED) 1101 (Given - Provider: Leighann Barclay RN) 25 mcg, Intravenous, EVERY 5 MIN PRN, St arting Sun02/23/17 at 1007, Until Sun02/23/17 at 1145, Pain, for 1-4 pain score, for 1-4 pain score Hold for respiratory rate less than 10 per minute. Maximum dos e: 250 mcg over one hour., PACU Recovery, Routine gelatin adsorbable (GELFOAM) sponge (CANCELED) 0958 (Given - Provider: Salty Butler MD) ONCE PRN, Starting Sun02/23/17 at 0958, Intra-Operative (Intra-P rocedure) lidocaine (XYLOCAINE) 10 mg/mL (1 %) injection 3 mg (COMPLETED) 07 (Given - Provider: Carmen Basurto RN) 3 mg (0.3 mL), Subcutaneous, ONCE PRN, 1 dose, Starting Sun02/23/17 at 0712, Until Sun02/23/17 at 0729, for discomfort with PIV insertion, Day of Surgery (Day of Procedure), Routine lidocaine-EPINEPHrine 1 %-1:200,000 injection (CANCELED) 0919 (Given - Provider: GOMEZ Myles) ONCE PRN, Starting Sun02/23/17 at 0919, Until Sun02/23/17 at 1350, Intra- Operative (Intra-Procedure), Routine thrombin (bovine) (THROMBIN-JMI) solution (CANCELED) 0957 (Given - Provider: Salty Butler MD) ONCE PRN, Starting Sun02/23/17 at 0957, Intra-Operative (Intra-P rocedure) No Frequency Medication Order 02/21/2017 02/22/2017 02/23/2017 fentaNYL Citrate (PF) 100 mcg/2 mL (50 mcg/mL) syringe 1100 (Due) 1 dose, Starting Sun02/23/17 at 1054, Un til Sun02/23/17 at 2259, LEIGHANN BARCLAY: cabinet override documented in this encounter Care Teams Protozoologist Relationship Specialty Start Date End Date Hai Gallegos MD PCP - General 05/31/10 10/09/[address] [place] [address] documented as of this encounter
--- OUTSIDE RECORDS SUMMARY | 2022-04-28 01:10 | XMS_ITS | Encounter Summary ---
:1960 Author Organization [facility] [place] [address] Care Team Providers Name Role Phone Hai Lopez DO Primary Care Provider Reason for Referral Diagnostic Test (Routine) - Closed Specialty Diagnoses / Procedures Referred By Contact Refer red To Contact Radiology Diagnoses Epigastric abdominal pain Yuliana Hernandez MD [facility] Rad Nuclear Med Procedures [place] [address] [place] [address] Fax: Referral ID Status Reason Start Date Expiration Date Visits V isits Requested Authorized [id number] Closed Specialty 04/01/2018 04/01/2019 5 5 Service Requested Encounter Details Date Type Department Care Team Description 04/01/2018 Orders Only Gastroenterology at [facility] [place] Yuliana Hernandez, Epigastric abdominal [facility] [place] [address] [facility] [phone] [place] [address] Social History Tobacco Use Types Packs/Day Years Used Date Current Every Day Smoker Cigarettes 0.5 40 Smokeless Tobacco: Never Used Comments: down to 5 cigs. Alcohol Use Standard Drinks/Week Comments No 0 (1 standard drink = 0.6 oz pure alcoho l) Sex Assigned at Date Recorded Not on file documented as of this encounter Plan of Treatment Upcoming Encounters Date Type Specialty Care Team Description 08/28/2022 Laboratory Appointment Lab 08/28/2022 Appointment Radiology Yuliana Hernandez MD [facility] [address] [place] [address] (Wo rk) 08/28/2022 Office Visit Gastroenterology Andrew Smith PA [facility] [place], [place] [address] (Wo rk) documented as of this encounter Results NM Gastric Emptying Scan (05/15/2018 12:46 PM EST) Anatomical Region Laterality Modality Nuclear Medicine Specimen (Source) Anatomical Location Collection Method / Collectio n Time Received Time / Laterality Volume Impressions 05/15/2018 1:52 PM EST Normal gastric emptying Narrative 05/15/2018 1:52 PM EST EXAMINATION: NM GASTRIC EMPTYING SCAN CLINICAL HISTORY: epigastric pain and bl oating after PO intake TECHNIQUE: A standard meal was labeled w ith 0.5 mCi of technetium-99m sulfur colloid and ingested. Images of the stom ach were obtained in the anterior and posterior projections immediately therea fter and 1, 2, and 3 hours later. COMPARISON: None FINDINGS: Activity fills the stomach on the initia l images obtained immediately after ingesting the meal. Small bowel is visib le at one hour. There is minimal activity present in the stomach at 3 flor rs. Quantitative analysis: 2 hours: 20 percent remains in the stoma ch (normal less than 60%) 3 hours: 6 percent remains in the stomac h (normal less than 10% at four hours) Procedure Note Terry Whitman MD - 05/15/2018Formatti ng of this note might be different from the original. EXAMINATION: NM GASTRIC EMPTYING SCAN CLINICAL HISTORY: epigastric pain and bl oating after PO intake TECHNIQUE: A standard meal was labeled w ith 0.5 mCi of technetium-99m sulfur colloid and ingested. Images of the stom ach were obtained in the anterior and posterior projections immediately therea fter and 1, 2, and 3 hours later. COMPARISON: None FINDINGS: Activity fills the stomach on the initia l images obtained immediately after ingesting the meal. Small bowel is visib le at one hour. There is minimal activity present in the stomach at 3 flor rs. Quantitative analysis: 2 hours: 20 percent remains in the stoma ch (normal less than 60%) 3 hours: 6 percent remains in the stomac h (normal less than 10% at four hours) IMPRESSION Normal gastric emptying Yuliana Hernandez MD IMG NM ORDERABLES documented in this encounter Visit Diagnoses Diagnosis Epigastric abdominal pain Abdominal pain, epigastric Epigastric abdominal pain Abdominal pain, epigastric documented in this encounter Care Teams Title I Math Tutor Relationship Specialty Start Date End Date Hai Lopez DO PCP - General Family Medicine 10/10/17 4 [place] [address] documented as of this encounter
--- OUTSIDE RECORDS SUMMARY | 2022-04-28 01:10 | XMS_ITS | Encounter Summary ---
:1960 [place] [address] Care Team Providers Name Role Phone Hai Gallegos MD Primary Care Provider [phone] Reason for Visit Reason Comments Follow Up Surgery 1 week post-op DOS 02/02/17 Encounter Details Date Type Department Care Team Description 03/02/2017 Office Visit Otolaryngology at [facility] Berry Montez H/O submandibular [facility] C, PA gland removal Drive [address] [place] [phone] OTOLARYNGOLOGY [phone] [place] [address] Social History Tobacco Use Types Packs/Day Years Used Date Current Every Day Smoker Cigarettes 0.5 40 Smokeless Tobacco: Never Used Alcohol Use Standard Drinks/Week Comments No 0 (1 standard drink = 0.6 oz pure alcoho l) Sex Assigned at Date Recorded Not on file documented as of this encounter Last Filed Vital Signs Vital Sign Reading Time Taken Comments Blood Pressure 134/77 03/02/2017 4:21 PM EDT Pulse 78 03/02/2017 4:21 PM EDT Temperature - - Respiratory Rate - - Oxygen Saturation 97% 03/02/2017 4:21 PM EDT Inhaled Oxygen Concentration - - Weight 92.1 kg (203 lb) 03/02/2017 4:21 PM EDT Height 165.1 cm (5' 5) 03/02/2017 4:21 PM EDT Body Mass Index 33.78 03/02/2017 4:21 PM EDT documented in this encounter Progress Notes Berry Montez PA - 03/02/2017 4:30 PM EDT [facility] Otolaryngology - Head and Neck Surgery Berry Montez PA-C 03/02/17 5:20 PM [place] [id number] Office Patient Name: Mary Beth Holman Date of : 1960 PCP: Hai Gallegos MD New concerns since last visit: Mary Beth Holman is a 56 y.o. year old female with a history of recurrent left submandibular gland infections. She underwent excision on the gland on 02/23/[address] Butler. Discharged home on the same day. She follows up today for post op check. She relates her post -op course has been uneventful. She hassome lasting pain in the left submandibular region but this is well controlled with OTC pain medications. Caring for incision site as recommended. She has resumed a normal diet at this point. She denies: dysphagia, fever, drainage from the surgical site, xerostomia, dyspnea, bleeding from the oral cavity, facial paralysis. She has continued to smoke during her recovery. PROBLEM LIST Patient Active Problem List Diagnosis Date Noted ??? Chronic low back pain 07/14/2015 ??? Hypertension 04/06/2015 Chronic ??? Diabetes mellitus 04/16/2014 ??? Gastro-esophageal reflux 08/25/2011 ??? HLD (hyperlipidemia) 08/25/2011 PAST HISTORY Past Medical History: Diagnosis Date ??? Acid reflux ??? Diabetes ??? Emphysema/COPD ??? High cholesterol ??? Hypertension Past Surgical History: Procedure Laterality Date ??? SECTION 3 ??? ELBOW SURGERY Left 2 left elbow ??? PRO EXCISION SUBMAXILLARY GLAND Left 02/23/2017 EXCISION SUBMANDIBULAR (SUBMAXILLARY) GLAND-GARY (WRVU 6.14) performed by Salty Butler MD formerly [facility] MAIN OR ??? WRIST SURGERY Left 2 left wrist FAMILY HISTORY No family history on file. SOCIAL HISTORY Social History Substance Use Topics ??? Smoking status: Current Every Day Smoker Packs/day: 0.50 Years: 40.00 Types: Cigarettes ??? Smokeless tobacco: Never Used ??? Alcohol use No ALLERGIES Allergies Allergen Reactions ??? Aspirin Other reaction(s): GI Upset ??? Celecoxib Other reaction(s): GI Upset ??? Fluoxetine ??? Fluoxetine Hcl CIS - BAD RASH ??? Metformin Diarrhea and Nausea And Vomiting ??? Rofecoxib Other reaction(s): bleeding MEDICATIONS Current Outpatient Prescriptions Medication Sig Dispense Refill ??? oxyCODONE (ROXICODONE) 5 mg Tablet Take 1 tablet by mouth every 4 hours as needed for Pain. 10 tablet 0 ??? oxyCODONE (ROXICODONE) 5 mg Tablet Take 2.5 mg by mouth every 8 hours as needed for Pain. ??? empagliflozin (JARDIANCE) 10 mg Tablet Take 10 mg by mouth daily. ??? UNABLE TO FIND as needed. Med Name: taking humalog insulin//taking 2 to 20 units as needed ??? insulin glargine Solution Inject 50 Units subcutaneously nightly. ??? cyclobenzaprine (FLEXERIL) 5 mg Tablet Take 5 mg by mouth as needed. ??? atorvastatin (LIPITOR) 10 mg Tablet Take 10 mg by mouth daily. Indications: Hypercholesterolemia ??? ONETOUCH ULTRA TEST Strip 0 ??? [...] No current facility-administered medications for this visit. ROS: Pertinent positive findings discussed above. No other findings on review of constitutional visual, cardiovascular, respiratory, gastrointestinal, genitourinary, musculoskeletal, dermatologic, neurological, psychiatric, endocrine, hematologic or immunologic systems. EXAM: Vitals: Blood pressure 134/77, pulse 78, height 165.1 cm (5' 5), weight 92.1 kg (203 lb), SpO2 97 %. Physical Examination: Vitals: Blood pressure 134/77, pulse 78, height 165.1 cm (5' 5), weight 92.1 kg (203 lb), SpO2 97 %. General: Well dressed and well nourished. Breathing comfortably without stridor. No acute distress. Face: HB grade I. Some mild submandibular swelling on the left. Incision is intact with some crusting. Mouth: Lips and gingiva pink, moist, without lesions. Tongue and floor of mouth soft without lesionsor masses. Hard palate without lesions. Pharynx: Soft palate without lesions. Uvula is midline. Oropharynx symmetric. ASSESSMENT/RECOMMENDATIONS: Ms. Holman is post op day 6, left submandibular gland excision. Incision was cleaned and dressed. She was encouraged to stop smoking and I impressed upon her the deleterious effects on wound healing. Advised her to keep the incision covered and to wash gently with mild soap. Follow up as needed. Berry Montez PA-C 03/02/2017 [place], [place] [phone] Office documented in this encounter Plan of Treatment Upcoming Encounters Date Type Specialty Care Team Description 08/28/2022 Laboratory Appointment Lab 08/28/2022 Appointment Radiology Yuliana Hernandez MD [facility] [address] [place] [phone] (Wo roz) 08/28/2022 Office Visit Gastroenterology Andrew Smith PA [facility] [address] [place] [phone] ([place]o roz) documented as of this encounter Visit Diagnoses Diagnosis H/O submandibular gland removal Personal history of surgery to other org ans documented in this encounter Care Teams Professor Of Chemical Engineering Relationship Specialty Start Date End Date Hai Gallegos MD PCP - General 05/31/10 10/09/17 [phone] [facility] [address] documented as of this encounter
--- OUTSIDE RECORDS SUMMARY | 2022-04-28 01:10 | XMS_ITS | Encounter Summary ---
:1960 Author Organization [facility] [place] [address] Care Team Providers Name Role Phone Hai Lopez DO Primary Care Provider Reason for Referral Consultation (Routine) - Closed Specialty Diagnoses / Procedures Referred By Contact Refer red To Contact Sleep Center Diagnoses Suspected sleep apnea Sri Briseno MD [facility] Sleep Medicine [facility] D r [address] [address] Fax: Referral ID Status Reason Start Date Expiration Date Visits V isits Requested Authorized [id number] Closed Specialty 09/27/2018 09/27/2019 1 1 Service Requested Reason for Visit Reason Comments Weight Management Consultation (Routine) - Specialty Diagnoses / Procedures Referred By Contact Refer red To Contact Weight and Wellness Diagnoses Class 1 obesity with serious comorbidity and body mass index (BMI) of 32.0 to 32.9 in adult, unspecified obesity type Yuliana Hernandez MD [facility] Weight Wellness [facility] D r [address] [address] Phone: Fax: Referral ID Status Reason Start Date Expiration Date Visits V isits Requested Authorized [id number] Consult, 08/22/2018 08/22/2019 1 1 Test & Treat Encounter Details Date Type Department Care Team Description 09/27/2018 Office Visit Weight and Wellness Sri Briseno, [facility] ss 1 obesity; at [facility] Suspected sleep apnea; [facility] Type 2 diabetes mellitus wit h hyperglycemia, with long-term current use of insulin; [place], [place] Essential hypertension; [address] [place] [address] BUI (nonalcoholic steatohepatitis) [phone] Social History Tobacco Use Types Packs/Day Years [...] Sign Reading Time Taken Comments Blood Pressure 146/80 09/27/2018 9:11 AM EDT Pulse 108 09/27/2018 9:11 AM EDT Temperature - - Respiratory Rate 18 09/27/2018 9:11 AM EDT Oxygen Saturation 98% 09/27/2018 9:11 AM EDT Inhaled Oxygen Concentration - - Weight 91.6 kg (202 lb) 09/27/2018 9:11 AM EDT Height 165.1 cm (5' 5) 09/27/2018 9:11 AM EDT Body Mass Index 33.61 09/27/2018 9:11 AM EDT documented in this encounter Patient Instructions Patient InstructionsCulvSri montgomery MD - 09/27/2018 9:15 AM EDT HEALTHY LIFESTYLES PROGRAM This is a year-long [...] scheduled appointments with our physicians and dietitians. NEXT STEPS: - intake appointment with our dietitian and health assistant field hockey coach--please bring a 7-day food log to this appointment - labs today: TSH, A1c, lipid panel - follow up with Dr Briseno in 4-6 weeks--please bring your blood sugar log to this appointment - referral to sleep medicine for suspected sleep apnea - referral to the ACTion group with Dr Velez for talk therapy for disordered eating (binges, emotional eating, food cravings) GOALS: 1) Buy 1 bag of chips and 1 bag of carrots for snacks (not 2 bags of chips!) 2) Write down meals, snacks, drinks and sweets faithfully each day documented in this encounter Progress Notes Sri Briseno MD - 09/27/2018 9:15 AM EDT Weight and Wellness Center Visit Patient Name: Mary Beth Holman Date of : 1960 Age: 58 y.o. Hai Lopez DO Thank you for referring Mary Beth Holman to the [facility] Center for a consultation for obesity management. I reviewed past records including notes, labs, and other evaluation and discussedthem with the patient. CHIEF COMPLAINT: Management of excess weight HISTORY OF PRESENT ILLNESS: Mary Beth Holman is a 58 y.o. female referred to the [facility] for an evaluation of obesity. Weight History: Mary Beth reports that weight has been an issue since her late 30s. Highest weight in adulthood was 230 pounds at age 55; her current weight is 202 pounds. Weight has trended up slowly over time; however, she notes that when doing an active job several years ago, she lost 70 pounds by walking several miles per day through work. Per her report, contributors to weight gain have included x 3, sedentary lifestyle, quitting smoking, depression, emotional eating, large portion sizes, and frequent evening snacking out of habit. She reports a history of emotional eating; episodes of emotional eating are triggered by depression and boredom, and will prompt her to eat potato chips or cookies. She reports a history of binge eating; episodes of binge eating occur at least once per week and include whatever I can put in my mouth. She will eat cookies, candy, chips and other snacks; she will always do it when she is alone at night. She feels embarrassed and ashamed after the episodes. She will eat to the point of feeling sick. Lowest weight in adulthood was 130 pounds prior to in her 30s. Prior weight loss attempts have included dietary modification, increased walking; she has not tried formal weight loss programs like Weight Watchers in the past. She has not used [id number] or prescription weight loss medications in the past. She reports that the importance of making a change is 10 out of 10, while confidence to do so is also 10 out of 10; this is because I know that if I have guidance and support, and positive influences,I can lose weight. Family history of obesity: Mother, siblings, 1 daughter 24 hour diet recall - Breakfast: 1/2 banana, 2 slices wheat toast with butter and peanut butter as much as I can fit onthere - Lunch: Whole chicken salad sandwich with mayonnaise, garlic, onions; 1/2 can [place] chicken soup - Dinner: Air-fried breaded chicken breast; baked potato with sour cream, butter, salt and pepper; mixed veggies - Snacks: Grapes - Drinks: Crystal Lite, 2% milk, coffee with Stevia and half and half (more cream than coffee) - Dessert: 4 Oreo , half an 11-oz bag of candy orange slices Exercise: None; enjoyed walking in the past (currently limited by L-sided sciatica) and owns a Wii Fit. [facility] Initial Responses 09/27/2018 URICA - Readiness Score 11.66 WEL-SF Total Scores 72 PROMIS 6B Scores 38.5 PHQ-2 SubScore 1 (Brief screen negative) GAD2 Subscore 2 (Brief screen negative) MOHSEN 7 Total Scores 4 (Minimal Anxiety) PROMIS 10 Physical Scores 37.4 PROMIS 10 Mental Scores 38.8 IPAQ-SF Scores 3 Total REAP-S Scores 21 TFEQ - Uncontrolled Eating (UE) 37.03 TFEQ-Cognitive Restraint (CR) 33.33 TFEQ-Emotional Eating 55.55 Food Insecurity Score 2 [place] Category I Result 1 (Positive) [place] Category II Result 0 [place] Category III 1 (Positive) [place] Sleep Apnea Total 2 (High Risk) Schooling Graduated from high school or GED Importance of making a change 10 - Very Important Confidence to make change 10 - Very Confident Most weighed 230 Age most weighed 55 Times lost 10 lbs or more 3 to 5 Most weight lost in one attempt 30 Lost weight how? Ate less food, Switched to food with less calories, Ate less fat, Ate fewer carbohydrates, Exercised, Drank a lot of water, Ate more fruits, vegetables, salads, Ate less sugar, candy, sweets Wearing tracking devices helped improve health No Worried food would run out before we got money to buy more Never true Food didnt last; no money to get more Never true Woman with baby weighing > 9lbs at No Sister of brother with diabetes Yes Have parent with diabetes Yes Younger than 65 yrs and little or no exercise in a day Yes DPRP Score: 17 Impact of weight on the patient's life: The patient's greatest concerns today regarding weight include her diabetes and liver disease REVIEW OF SYSTEMS (positives bolded): see above HPI for additional pertinent +/- findings Constitutional: Variable appetite (sometimes high, sometimes low) and average energy. Daytime tiredness. No recent weight gain or loss. CV: No chest pain or discomfort, no palpitations. No LE edema. RESP: No shortness of breath at rest, cough, or wheezing. No known sleep apnea. +snoring, +KIDD. GI: No nausea, vomiting, alternating diarrhea and constipation, abdominal pain : No dysuria, hematuria, urinary frequency or urgency. +Stress incontinence. Musculoskeletal: No joint swelling. No immobility. No myalgias. +arthralgias, +arthritis. Integumentary: No rash or bruising. No skin breakdown/ulcers. No intertrigo. No acanthosis nigricans. Psychiatric: No anxiety, mild depression--sees her counselor a few times a year as-needed (previously on Paxil; reports Prozac made me crazy) Neurological: Daily headaches for the last few weeks Endocrine: No cold intolerance, dry skin in the winter, dry/brittle hair PAST MEDICAL HISTORY Medical and Surgical History: Reviewed and updated. The patient has the following diagnoses that are adverse health consequences of obesity: - BUI--followed by Dr Hernandez of gastroenterology - Low back pain - DM2--she reports her last A1c was 7.5%; currently using 48 units of lantus, is not using her short-acting insulin, and is taking empagliflozin 25 mg daily - HLD - HTN History of abdominal surgeries: - x 3 Social History: Reviewed and updated in eD. The patient's support system includes her friends, especially her friend Brigida VITAL SIGNS: Vitals: 09/27/18 0911 BP: 146/80 Pulse: (!) 108 Resp: 18 SpO2: 98% Weight: 91.6 kg (202 lb) Height: 165.1 cm (5' 5) Body mass index is 33.61 kg/m??. Last 5 weight values: Wt Readings from Last 5 Encounters: 09/27/18 91.6 kg (202 lb) 08/22/18 88.3 kg (194 lb 9.6 oz) 05/10/18 84.5 kg (186 lb 4.8 oz) 10/26/17 83.6 kg (184 lb 6.4 oz) 09/28/17 84.6 kg (186 lb 6.4 oz) PHYSICAL EXAM: Gen: Alert, NAD. + central adiposapthy Skin: Warm, pink, no rashes, no skin breakdown of the intertriginous folds, no acanthosis HEENT: NC/AT, PERRLA, EOMI, clear conjunctiva, MMM, OP clear and narrow, Mallampati grade 4/4 Neck: supple and thick, no LAD, no thyromegaly, no thyroid nodules appreciated CV: RRR, NL S1S2, no murmur Resp: CTAB, no wheezes/crackles Abd: +BS, soft, NT/ND, no HSM/masses appreciated Neuro: Alert and oriented, CN II-XII intact, MS 5/5 throughout, sensation intact to light touch Extremities: No joint swelling or tenderness Psych: NL affect today PREVIOUS LABS AND IMAGING: No results found for: CHLPL No results found for: HDL No results found for: LDLCHOL No results found for: TRIG No results found for: CHOLHDL No results found for: HA1C Lab Results Component Value Date NA 140 08/22/2018 K 4.8 08/22/2018 CL 100 08/22/2018 CO2 25 08/22/2018 BUN 19 (H) 08/22/2018 CREATININE 0.74 08/22/2018 GLUCOSE 166 08/22/2018 CALCIUM 9.9 08/22/2018 Lab Results Component Value Date ALT 35 (H) 08/22/2018 AST 28 08/22/2018 ALKPHOS 91 08/22/2018 BILITOT 0.4 08/22/2018 ALBUMIN 4.6 08/22/2018 PROT 7.5 08/22/2018 SUMMARY OF VISIT AND RECOMMENDATIONS: Mary Beth Holman presents to the [facility] for a consultative visit regarding obesity management. The patient has Class I Obesity defined by a BMI of 33.6. In addition, Mary Beth Holman has co-morbidities associated with both adipocyte dysfunction and with excessive adipocyte mass. Mary Beth Holman's history and physical exam were not suggestive of an underlying medical disease that can contribute to weight gain. However, obesity is a multifactorial disease, and in this case, the following factors could be potential contributors: ?? Genetics and Epigenetics++ ?? Medications ?? Sleep Disturbance and Circadian Pattern+++ ?? Environment ?? Mental Health and/or Disordered Eating++++++ ?? Nutrition and Eating Patterns+++++ ?? Lifestyle and Inactivity+++++ ?? Social and Cultural Influences ?? Stress and/or Trauma History - the prolonged cortisol release associated with chronic stress is strongly correlated with the development of obesity+++ The patient has been informed that obesity is a chronic disease requiring lobsterman management. Obesity is associated with increased risk of adverse health and psychosocial consequences as well as higher mortality. In addition, the increase in visceral fat volume places the patient at greater risk formetabolic disease. We reviewed the overall goals for obesity management, which include improving thepatient's health, quality of life, and body weight/composition. I explained that a weight loss of just 5-10% of body weight can be associated with improvements in health. Medical issues and plan: Class I Obesity: Treatment options were discussed with the patient and include intensive lifestyle intervention, pharmacotherapy, and bariatric surgical or endoscopic procedures--given her BMI below 35, she is not a candidate for bariatric surgery. PATHWAYS: Medical Management: Activate Adult Biobank: Not enrolled/approached ?? The patient is interested in the Healthy Lifestyles Program (HLP) at the [facility]. This is a yearlong program during which the patient will receive counseling, education, and support around nutrition, physical activity, and behavioral therapy. Her case will be reviewed by our team to determine appropriateness for participation in the program. ?? Qualifies for DPP based on DPRP score of 17 ?? Will schedule an intake appointment with our dietitian and health assistant field hockey coach--she will keep a 7-day food journal prior to this appointment ?? Labs ordered to assess co-morbidities: FLP, HA1c, TSH ?? Weight loss medications were briefly discussed; she reports she prefers to avoid adding medications at this time ?? Referral to the ACTion group to address disordered eating; would consider use of an SSRI or topiramate in the future to address binge eating disorder ?? Interval goals: ?? Buy 1 bag of chips and 1 bag of carrots for snacks (not 2 bags of chips!) ?? Write down meals, snacks, drinks and sweets faithfully each day ?? Further recommendations: ?? Annual screen for or assessment of Type II Diabetes, HTN, Hyperlipidemia, Depression, JEAN-PAUL, NAFLD,vitamin D deficiency and renal disease ?? Given the association of obesity with cancer, all age appropriate cancer screenings should be up-to-date ?? Medication Review: If possible medications that promote weight gain should be avoided and medications that are weight-neutral or promote weight loss should be considered--none identified. Obesity Co-morbidities: HLP - nutrition, behavioral health and activity recommendations to promote healthy weight and potentially see an improvement in the following adverse health consequences: Type II DM: ?? Medical management recommendations: Intolerant of metformin. Currently maintained only on empagliflozin (maximum dose) and long-acting insulin (48 units daily). It is unclear why her short-acting insulin has been discontinued by her PCP. We will obtain an A1c today and she will bring her blood glucose log to her follow up visit--will consider referral to Dr Rodríguez for diabetes management as needed. If further treatment is indicted, would avoid sulfonylureas and insulin if possible and opt for GLP-1 agonists for the synergistic weight loss effect. Hyperlipidemia: ?? Diet and lifestyle modification ?? Not currently on a statin due to liver disease Hypertension: ?? Agree with an MAXX inhibitor or ARB for the treatment of HTN in this patient as obesity has a direct effect on the angiotenisn- renin system in that adipocyte tissue expresses MAXX and angiotensinogen. This activity is higher in visceral adipocyte tissue which is elevated in this patient. BUI: ?? HLP / Diet and activity recommendations to promote healthy weight ?? Followed q6 months by GI clinic Suspected JEAN-PAUL: ?? Referral to sleep medicine today I spent a total of 45 minutes with the patient 40 minutes of which were spent in [id number] discussion/counseling re obesity, nutrition and activity as well as obesity related co-morbidities. Follow up with MD in 1 month, sooner as needed. documented in this encounter Plan of Treatment Upcoming Encounters Date Type Specialty Care Team Description 08/28/2022 Laboratory Appointment Lab 08/28/2022 Appointment Radiology Yuliana Hernandez MD [facility] [phone] (Wo [address]) 08/28/2022 Office Visit Gastroenterology Andrew Smith PA [facility] [address] ([address]o roz) Scheduled Referrals Name Type Priority Associated Diagnoses Order S chedule Referral to Sleep Outpatient Referral Routine Suspected sleep Ordered: Disorders Center apnea 09/27/2018 documented as of this encounter Procedures Procedure Name Priority Date/Time Associated Comments Diagnosis TSH Routine 09/27/2018 10:44 AM Class 1 obesity Resul ts for this EDT procedure are i n the results section. LDL CHOLESTEROL, Routine 09/27/2018 10:44 AM Resu lts for this DIRECT EDT procedure are i n the results section. HEMOGLOBIN A1C Routine 09/27/2018 10:44 AM Class 1 obes ity Results for this EDT Type 2 diabetes procedure ar e in mellitus with the results hyperglycemia, with section. long-term current use of insulin LIPID PANEL (REFLEX Routine 09/27/2018 10:44 AM Class 1 obesit y Results for this DIRECT LDL) EDT procedure are i n the results section. documented in this encounter Results LDL Cholesterol, Direct (09/27/2018 10:44 AM EDT) P athologist Signature LDL Chol 180 mg/dL [facility] Comment: Lowest Risk: <100 mg/dL Lower Risk: 100-129 mg/dL Borderline High Risk: 130-159 mg/dL High Risk: 160-189 mg/dL Very High Risk: >gw=185 mg/dL Specimen Anatomical Collection Method Collection Time Receive d Time (Source) Location / / Volume Laterality Blood specimen 09/27/2018 10:44 9 (specimen) AM EDT 12:48 PM EDT Resulting Agency Comment Spec In Lab Sri Briseno MD CHEMISTRY ORDERABLES Performing Organization Address City/State/[place] [address] Lipid Panel (09/27/2018 10:44 AM EDT) athologist Signature Chol, Total 257 mg/dL [facility] Comment: Lower Risk: <200 mg/dL Average Risk: 200-239 mg/dL Higher Risk: >za=457 mg/dL Triglycerides 414 mg/dL [facility] Comment: Average Risk/Lower Risk: <150 mg/dL Borderline High Risk: 150-199 mg/dL High Risk: 200-499 mg/dL Very High Risk: >lj=053 mg/dL HDL 45 mg/dL [facility] Comment: Males: ?? Higher Risk: <40 mg/dL Females: ?? HIgher Risk: <50 mg/dL LDL Cholesterol Not Calculated [facility] Comment: Since a calculated LDL value is not shayna d for triglycerides greater than 400 mg/dl, a direct LDL determination is per formed instead. Lowest Risk: <100 mg/dL Lower Risk: 100-129 mg/dL Borderline High Risk: 130-159 mg/dL High Risk: 160-189 mg/dL Very High Risk: >yo=928 mg/dL Chol/HDL Ratio 5.[address] [facility] Lipid Interpretation See Note [facility] Comment: Lipid management should be guided by a p atient? s ASCVD risk, goals and preferences. ACC/AHA Guidelines recommend high intens ity statin if clinical ASCVD or LDL greater than or equal to 190 mg/dL. http://[email or web address].[email or web address]/AKF-ZPA-[email or web address] Adults aged 40-75 with LDL 70-189 mg/dL should have their 10 year ASCVD risk estimated with the ACC/AHA ASCVD risk es timator http://tools.acc.org/LDHAB-Ijgc-Nlxeyzri r/ Statin should be discussed if risk great er than or equal to 7.5% in non-diabetics. With diabetes, moderate i ntensity statin is recommended if risk less than 7.5%, high intensity if risk g reater than or equal to 7.5%. Annual lipid monitoring on statins is no t necessary. Evaluate secondary causes of Triglycerid es greater than 500 mg/dL or LDL greater than 190 mg/dL: See table 6 of A CC/AHA Guideline. Lifestyle modification is a critical com ponent of ASCVD risk reduction. Specimen Anatomical Collection Method Collection Time Receive d Time (Source) Location / / Volume Laterality Blood specimen 09/27/2018 10:44 9 (specimen) AM EDT 12:43 PM EDT Resulting Agency Comment Spec In Lab Sri Briseno MD CHEMISTRY ORDERABLES Performing Organization Address City/State/[place] [address] (ABNORMAL) Hemoglobin A1c (09/27/2018 10:44 AM EDT) Analysis Performed At Patho logist Time Signature Hemoglobin A1C 7.7 (H) 4.3 - 5.6 [facility] Comment: Reference Range: 4.3 - 5.6% 5.7 - 6.4% - Increased Risk of Developin g Diabetes Mellitus >= 6.5% - Consistent with diagnosis of D iabetes Mellitus In the absence of hyperglycemia (i.e. pl asma glucose > 200 mg/dL) or classic symptoms of hyperglycemia a repeat measu rement of HbA1c should be performed on a separate sample to confirm the diagnos is. Diagnosis and Classification of Diabetes Mellitus, Diabetes Care 2013; 36: Suppl. 1, S67-74 Est Avg Gluc 175 mg/dL [facility] Comment: eAG equivalents for HbA1c percentages: HbA1c(%) ?eAG(mg/dL) 6.0 ?126 6.5 ?140 7.0 ?154 7.5 ?169 8.0 ?183 8.5 ?197 9.0 ?212 9.5 ?226 10.0 ? 240 Limitations: The eAG calculation has not been validated on women, individuals below 18 years old and above 70 years old, and individuals with hemoglobinopathies. Additional resources are available on [facility] ADA website. Michele CAMPOS, Destinee J, Danelle R, et al. ??Tr anslating the A1C assay into estimated average glucose values. ??Diabetes Care 2008:31(8):4828-0375. Specimen Anatomical Collection Method Collection Time Receive d Time (Source) Location / / Volume Laterality Blood specimen 09/27/2018 10:44 9 (specimen) AM EDT 12:43 PM EDT Resulting Agency Comment Spec In Lab Sri Briseno MD CHEMISTRY ORDERABLES Performing Organization Address City/State/[place] [address] TSH (09/27/2018 10:44 AM EDT) P athologist Signature TSH 1.85 0.27 - 4.20 [facility] mcIU/mL [facility] Specimen Anatomical Collection Method Collection Time Receive d Time (Source) Location / / Volume Laterality Blood specimen 09/27/2018 10:44 9 (specimen) AM EDT 12:43 PM EDT Resulting Agency Comment Spec In Lab Sri Briseno MD CHEMISTRY ORDERABLES Performing Organization Address City/State/[place] [address] documented in this encounter Visit Diagnoses Diagnosis Class 1 obesity Suspected sleep apnea Type 2 diabetes mellitus with hyperglyce cuco, with long-term current use of insulin Essential hypertension Unspecified essential hypertension BUI (nonalcoholic steatohepatitis) Other chronic nonalcoholic liver disease documented in this encounter Care Teams Circulation Supervisor Relationship Specialty Start Date End Date Hai Lopez DO PCP - General Family Medicine 10/10/[address] [place] [address] documented as of this encounter
--- OUTSIDE RECORDS SUMMARY | 2022-04-28 01:10 | XMS_ITS | Encounter Summary ---
:1960 Author Organization [facility] [place] [address] Care Team Providers Name Role Phone Hai Gallegos MD Primary Care Provider [phone] Encounter Details Date Type Department Care Team Description 01/12/2017 Telephone Otolaryngology at [facility] [place] [address] Social History Tobacco Use Types Packs/Day Years Used Date Current Every Day Smoker Cigarettes 0.5 40 Smokeless Tobacco: Never Used Alcohol Use Standard Drinks/Week Comments No 0 (1 standard drink = 0.6 oz pure alcoho l) Sex Assigned at Date Recorded Not on file documented as of this encounter Miscellaneous Notes Telephone Encounter - Ariel Roberson - 01/12/2017 12:46 PM EDT Surgery 02/02 documented in this encounter Plan of Treatment Upcoming Encounters Date Type Specialty Care Team Description 08/28/2022 Laboratory Appointment Lab 08/28/2022 Appointment Radiology Yuliana Hernandez MD [facility] [address] [place] [address] (Wo rk) 08/28/2022 Office Visit Gastroenterology Andrew Smith PA [facility] [address] [place] [address] (Wo rk) documented as of this encounter Visit Diagnoses Not on filedocumented in this encounter Care Teams Loss Prevention Detective Relationship Specialty Start Date End Date Hai Gallegos MD PCP - General 05/31/10 10/09/[address] [place] [address] documented as of this encounter
--- OUTSIDE RECORDS SUMMARY | 2022-04-28 01:10 | XMS_ITS | Encounter Summary ---
:1960 Author Organization [facility] [place] [address] Care Team Providers Name Role Phone Hai oLpez DO Primary Care Provider Encounter Details Date Type Department Care Team Description 03/12/2018 Hospital Encounter Radiology Library [place] [address] [place] [address] [phone] Social History Tobacco Use Types Packs/Day Years [...] Sig Dispensed Refills Start End Date Date CHANTIX 0.5 mg Tablet take 1 tablet by mouth 0 twice a day 8 ONETOUCH ULTRA TEST Strip 0 5 ONE [...] for Wheezing. Use Aerosol Inhaler with spacer gabapentin (NEURONTIN) 0 300 mg Capsule 8 19 promethazine-codeine TAKE 5MLS BY MOUTH EVERY 0 0 09/28/19 (PHENERGAN WITH CODEINE) 6 HOURS NEEDED 8 19 6.25-10 mg/5 mL Syrup empagliflozin (JARDIANCE) Take 10 mg by mouth 0 09/28/19 10 mg Tablet daily. 19 UNABLE TO FIND as needed. Med Name: 0 09/28/19 taking humalog 19 insulin//taking 2 to 20 units as needed atorvastatin (LIPITOR) 10 Take 10 mg by mouth 0 09/28/19 mg TabletIndications: daily. Indications: 19 hypercholesterolemia Hypercholesterolemia documented as of this encounter Plan of Treatment Upcoming Encounters Date Type Specialty Care Team Description 08/28/2022 Laboratory Appointment Lab 08/28/2022 Appointment Radiology Yuliana Hernandez MD [facility] [address] [place] [address] (Wo rk) 08/28/2022 Office Visit Gastroenterology Andrew Smith PA [facility] [address] [place] [address] (Wo rk) documented as of this encounter Procedures Procedure Name Priority Date/Time Associated Comments Diagnosis FILM LIBRARY STORAGE Routine 03/12/2018 12:00 AM Results for this ONLY ULTRASOUND EDT procedure ar e in STUDY the results section. documented in this encounter Results Film Library- Storage Only Ultrasound Study (03/12/2018 12:00 AM EDT) Specimen (Source) Anatomical Location Collection Method / Collectio n Time Received Time / Laterality Volume Narrative RAD - 03/13/2018 8:53 PM EDT This exam is for storage only and is aut o-finalizing. Yuliana Hernandez MD IMG FILM LIBRARY ORDERABLES Performing Organization Address City/State/ZIP Code Phon e Number RAD [place], [place] documented in this encounter Visit Diagnoses Not on filedocumented in this encounter Care Teams Staff Internist Office Based Only Relationship Specialty Start Date End Date Hai Lopez DO PCP - General Family Medicine 4/4/[address] [place] [address] documented as of this encounter
--- OUTSIDE RECORDS SUMMARY | 2022-04-28 01:10 | XMS_ITS | Encounter Summary ---
:1960 Author Organization [facility] [place] [address] Care Team Providers Name Role Phone Hai Lopez DO Primary Care Provider Encounter Details Date Type Department Care Team Description 08/22/2018 Laboratory Appointment Lab 3L Yuliana Gordon Hepatic cirrhosis, unspecified hepatic cirrhosis type, unspecified whether ascites present; [facility] BUI (nonalcoholic steatohep atitis) [place] [id number] Social History Tobacco Use Types Packs/Day Years Used Date Current Every Day Smoker Cigarettes 0.01 40 Smokeless Tobacco: Never Used Comments: down to 5 cigs. Alcohol Use Standard Drinks/Week Comments No 0 (1 standard drink = 0.6 oz pure alcoho l) Sex Assigned at Date Recorded Not on file documented as of this encounter Plan of Treatment Upcoming Encounters Date Type Specialty Care Team Description 08/28/2022 Laboratory Appointment Lab 08/28/2022 Appointment Radiology Yuliana Hernandez MD [facility] [address] [place] [address] (Wo rk) 08/28/2022 Office Visit Gastroenterology Andrew Smith PA [facility] [address] [place] [address] (Wo rk) documented as of this encounter Procedures Procedure Name Priority Date/Time Associated Comments Diagnosis HEMOGRAM Routine 08/22/2018 8:23 AM Hepatic cirrhosis, Res ults for this EST unspecified hepatic procedur e are in cirrhosis type, the results unspecified whether section. ascites present DIFFERENTIAL, Routine 08/22/2018 8:23 AM Hepatic cirrhosis, Re sults for this AUTOMATED EST unspecified hepatic procedur e are in cirrhosis type, the results unspecified whether section. ascites present AFP TUMOR MARKER Routine 08/22/2018 8:23 AM Hepatic cirrhosis, Results for this EST unspecified hepatic procedur e are in cirrhosis type, the results unspecified whether section. ascites present PROTHROMBIN TIME Routine 08/22/2018 8:23 AM Hepatic cirrhosis, Results for this EST unspecified hepatic procedur e are in cirrhosis type, the results unspecified whether section. ascites present CBC (WITH DIFF) Routine 08/22/2018 8:23 AM Hepatic cirrhosis, EST unspecified hepatic cirrhosis type, unspecified whether ascites present COMPREHENSIVE Routine 08/22/2018 8:23 AM Hepatic cirrhosis, Re sults for this METABOLIC PANEL EST unspecified hepatic proce dure are in (NON-FASTING) cirrhosis type, the results unspecified whether section. ascites present documented in this encounter Results Differential, Automated (08/22/2018 8:23 AM EST) P athologist Signature Neutrophils % 54.2 % [facility] Neutr Abs (ANC) 4.85 1.70 - [facility] 6.10 [facility] x10(3)/[facility] LABORATORY Lymphocytes % 34.1 % [facility] Lymphocytes Abs 3.0 0.9 - 3.2 [facility] x10(3)/[facility] LABORATORY Monocytes % 6.4 % [facility] Monocyte Abs 0.6 0.3 - 0.9 [facility] x10(3)/[facility] LABORATORY Eosinophils % 4.0 % [facility] Eosinophils Abs 0.4 0.0 - 0.4 [facility] x10(3)/[facility] LABORATORY Basophils % 0.9 % [facility] Basophils Abs 0.1 0.0 - 0.1 [facility] x10(3)/[facility] LABORATORY Immature Gran % 0.40 % [facility] Comment: Immature granulocytes(IG's)percentage an d absolute count will include metamyelocytes, myelocytes, and promyelo cytes. Blood smears from CBCs yielding IG's will be scanned manually for concor danjada. If this scan disagrees with the automated IG or if promyelocytes are not ed, a manual differential will be performed. Elaina Gran Abs 0.04 0.00 - 0.04 x10(3)/[facility] MAR Y [facility]OR[facility]ORY Specimen Anatomical Collection Method Collection Time Receive d Time (Source) Location / / Volume Laterality Blood specimen 08/22/2018 8:23 AM 019 8:29 (specimen) EST AM EST Resulting Agency Comment Spec In Lab Yuliana Hernandez MD HEMATOLOGY ORDERABLES Performing Organization Address City/State/[place] [address] (ABNORMAL) Hemogram (08/22/2018 8:23 AM EST) Analysis Performed At Patho logist Time Signature WBC 9.0 4.0 - 9.5 [facility] x10(3)/[facility] LABORATORY RBC 5.24 (H) 4.00 - [facility] x10(6)/[facility] LABORATORY Hemoglobin 15.6 (H) 11.7 - [facility] 15[facility] gm/dL [facility] Hematocrit 47.8 (H) 35.7 - [facility] 45.8 % [facility] MCV 91.2 82.6 - [facility] 94.4 [facility]AT[facility] MCH 29.8 27.1 - [facility] 32.0 pg [facility] MCHC 32.6 31.7 - [facility] 35.0 gm/dL [facility] Platelets 167 145 - 357 [facility] x10(3)/[facility] LABORATORY RDWSD 45.7 37.0 - [facility] 46.0 [facility] LABORATORY RDWCV 13.5 11.5 - [facility] 14.1 % [facility] MPV 10.5 7.6 - 12.9 [facility] nRBC % Auto 0.0 % [facility] nRBC Abs Auto 0.000 0.000 - [facility] 0.000 [facility] x10(3)/[facility] LABORATORY Specimen Anatomical Collection Method Collection Time Receive d Time (Source) Location / / Volume Laterality Blood specimen 08/22/2018 8:23 AM 019 8:29 (specimen) EST AM EST Resulting Agency Comment Spec In Lab Yuliana Hernandez MD HEMATOLOGY ORDERABLES Performing Organization Address City/State/[place] [address] (ABNORMAL) Comprehensive metabolic panel (non-fasting) (08/22/2018 8:23 AM EST) athologist Signature Glucose Lvl 166 65 - 199 [facility] mg/dL [facility] Comment: Diabetes: >=200 mg/dL plus symp toms BUN 19 (H) 8 - 18 mg/dL [facility] Creatinine 0.74 0.70 - 1.20 mg/dL [facility] Sodium 140 135 - 145 mmol/L [facility] Potassium 4.8 3.5 - 5.0 mmol/L [facility] Comment: Please note: ??Patients with WBC >100,00 0 may have falsely elevated Potassium levels. ??For accurate Potassium quantif ication in these patients send serum separator tube (gold top) for subsequent determinations. ??Contact the Clinical Chemistry Laboratory if there are any qu estions. Chloride 100 98 - 107 mmol/L [facility] CO2 25 22 - 31 mmol/L [facility] Anion Gap 15 5 - 15 mmol/L [facility] Calcium 9.9 8.5 - 10.5 mg/dL [facility] Total Protein 7.5 6.1 - 8.0 gm/dL [facility] Albumin 4.6 3.2 - 5.2 gm/dL [facility] AST 28 0 - 30 unit/L [facility] ALT 35 (H) 0 - 30 unit/L [facility] Alk Phos 91 40 - 104 unit/L [facility] Total Bilirubin 0.4 0.2 - 1.3 mg/dL [facility] Estimated GFR 89 >=60 mL/min/1.73 m?? [facility] Comment: The eGFR was calculated using the CKD-EP I equation. As with all creatinine based estimates of kidney function, eGFR values calculated with the CKD-EPI equation are not accurate in patients wi th acute kidney failure, extremes of body mass or the acutely ill. http://Jaree/[facility] eGFR 104 >=60 mL/min/1.73 m?? [facility] Comment: The eGFR was calculated using the CKD-EP I equation. As with all creatinine based estimates of kidney function, eGFR values calculated with the CKD-EPI equation are not accurate in patients wi th acute kidney failure, extremes of body mass or the acutely ill. http://Jaree/[facility] Specimen Anatomical Collection Method Collection Time Receive d Time (Source) Location / / Volume Laterality Blood specimen 08/22/2018 8:23 AM 019 8:29 (specimen) EST AM EST Resulting Agency Comment Spec In Lab Yuliana Hernandez MD CHEMISTRY ORDERABLES Performing Organization Address City/State/[place] [address] Prothrombin Time (08/22/2018 8:23 AM EST) P athologist Signature PT 11.2 9.4 - 12.5 [facility] LABORATORY INR 1.0 [facility] [...] Location / / Volume Laterality Blood specimen 08/22/2018 8:23 AM 019 8:29 (specimen) EST AM EST Resulting Agency Comment Spec In Lab Yuliana Hernandez MD HEMATOLOGY ORDERABLES Performing Organization Address City/State/[place] [address] AFP tumor marker (08/22/2018 8:23 AM EST) P athologist Signature AFP 2.4 <=8.3 ng/mL [facility] Specimen Anatomical Collection Method Collection Time Receive d Time (Source) Location / / Volume Laterality Blood specimen 08/22/2018 8:23 AM 019 8:29 (specimen) EST AM EST Resulting Agency Comment Spec In Lab Yuliana Hernandez MD CHEMISTRY ORDERABLES Performing Organization Address City/State/[place] [address] documented in this encounter Visit Diagnoses Diagnosis Hepatic cirrhosis, unspecified hepatic c irrhosis type, unspecified whether ascites present BUI (nonalcoholic steatohepatitis) Other chronic nonalcoholic liver disease documented in this encounter Care Teams Beauty Culture Teacher Relationship Specialty Start Date End Date Hai Lopez DO PCP - General Family Medicine 10/10/17 [address] [place] [address] documented as of this encounter
--- OUTSIDE RECORDS SUMMARY | 2022-04-28 01:10 | XMS_ITS | Encounter Summary ---
:1960 Author Organization [facility] [place] [address] Care Team Providers Name Role Phone JohnHai DO Primary Care Provider Encounter Details Date Type Department Care Team Description 03/13/2018 External Results G[facility]enterology at [facility] Yuliana Hernandez, [facility] [place] [address] [facility] [phone] [place] [address] Social History Tobacco Use Types [...] Lab 08/28/2022 Appointment Radiology Yuliana Hernandez MD [facility] [address] [place] [address] (Wo rk) 08/28/2022 Office Visit Gastroenterology Andrew Smith PA [facility] [address] [place] [address] (Wo rk) documented as of this encounter Procedures Procedure Name Priority Date/Time Associated Diagnosis Comme nts EXTERNAL LAB CBC CMP Routine 03/05/2018 Results for this THYROID RESULTS PANEL proced ure are in the results section . documented in this encounter Results CBC / CMP / Thyroid External Results (03/05/2018) P athologist Signature WBC 7.45 RBC 5.06 Hemoglobin 15.5 Hematocrit 45.6 MCV 90.1 Platelets 164 Sodium 140 Potassium 3.8 Chloride 105 CO2 26 BUN 16 Creatinine 0.73 Estimated GFR >60 Glucose Lvl 129 Calcium 9.1 Total Protein 7.4 Albumin 4.2 Total Bilirubin 0.4 Alk Phos 115 AST 19 ALT 31 PT 9.4 INR 1.0 Historical Provider MD POINT OF CARE TEST ORDERABLE S documented in this encounter Visit Diagnoses Not on filedocumented in this encounter Care Teams Histotechnologist Relationship Specialty Start Date End Date Hai Lopez DO PCP - General Family Medicine 10/10/17 [facility] [place] [place] [address] documented as of this encounter
--- OUTSIDE RECORDS SUMMARY | 2022-04-28 01:10 | XMS_ITS | Encounter Summary ---
:1960 Author Organization [facility] [place] [address] Care Team Providers Name Role Phone Hai Gallegos MD Primary Care Provider [phone] Reason for Visit Reason Comments GI Problem Consultation (Routine) - Closed Specialty Diagnoses / Procedures Referred By Contact Refer red To Contact Gastroenterology Diagnoses portal hypertension Hai Lopez, [facility] [address] [place] [phone] Phone: Fax: Referral ID Status Reason Start Date Expiration Date Visits V isits Requested Authorized [id number] Closed Consult, 08/23/2017 08/23/2018 1 1 [facility] Encounter Details Date Type Department Care Team Description 09/28/2017 Office Visit Gastroenterology at [facility] Perla Hernandez, Diarrhea, [facility] [place] [address] [facility] [phone] [place] [address] Social History Tobacco Use Types Packs/Day Years Used Date Current Every Day Smoker Cigarettes 0.5 40 Smokeless Tobacco: Never Used Alcohol Use Standard Drinks/Week Comments No 0 (1 standard drink = 0.6 oz pure alcoho l) Sex Assigned at Date Recorded Not on file documented as of this encounter Last Filed Vital Signs Vital Sign Reading Time Taken Comments Blood Pressure 153/68 09/28/2017 8:45 AM EDT Pulse 95 09/28/2017 8:45 AM EDT Temperature - - Respiratory Rate - - Oxygen Saturation - - Inhaled Oxygen Concentration - - Weight 84.6 kg (186 lb 6.4 oz) 09/28/2017 8:45 AM EDT Height 165.1 cm (5' 5) 09/28/2017 8:45 AM EDT Body Mass Index 31.02 09/28/2017 8:45 AM EDT documented in this encounter Progress Notes Perla Hernandez MD - 09/28/2017 9:00 AM EDT Images from the original note were not included. HEPATOLOGY CONSULTATION Mary Beth Holman 1960 CAFE LEAD: Perla Hernandez MD ([id number]) PCP: Hia Gallegos MD (Inactive) Requesting Provider: REASON FOR CONSULTATION Splenomegaly HISTORY OF PRESENT ILLNESS Mary Beth Holman is a 57 y.o. year old who has a history of hepatitis C, treated with interferon in the , who had imaging for abdominal pain in 08/16/2017 which showed mild splenomegaly. This pain started with sharp pain with nausea, vomiting, and diarrhea with the pain. She thought it was a stomach bug. 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 Investigations were done that day which included a CT scan that showed mild lymph nodes that looked infectious and mild splenomegaly. Normal platelet count and albumin. Mild elevation is AST/ALT. She was treated with promethazine and codeine for her symptoms. Her pain has improved with daily use of codeine and promethazine. Without the codeine she report RUQ pain which is sharp. She has persistent diarrhea and has been taking imodium. Her pain is made worse by movement and palpation. Her stools have very little form to being pure liquid. She is having 3-4 stools per day. She has significant abdominal pain with oral intake. She has lost 27 lbs since this episodes. She has never had a colonoscopy. She has a family history of colon cancer in her grandmother in her late 60's. Her nausea has persisted. Since this episodes she has developed bronchitis and was started on antibiotic 4 days ago. No previous course of antibiotics. She has not noted improvement in her diarrhea. Hepatitis C RNA negative in 2000 indicating SVR. She is a recovered alcohol. She has not had any alcohol in the last 5-10 years. 08/16/2017 CT 08/16/2017 ROS: Constitutional: see HPI HEENT: no visual changes, no URI symptoms Cardio: chest pain with cold Resp: SOB/cough with cold Hem/Lymph: no new lumps or bumps on body GI: see HPI : no dysuria Integumentary: no new rashes Musculoskeletal: no new joint pains Neuro: numbness in fingers the last 1.5 months PAST MEDICAL/SURGICAL HISTORY 1. Diabetes 2-3 years duration 2. Hyperlipidemia 3. Hypertension 4. COPD/Asthma, current smoker 5. Migraines 6. Two wrist surgeries 7. Salivary gland removed 06/2017 for abscess and stones 8. Two elbow surgeries MEDICATIONS Outpatient Prescriptions Marked as Taking for the 09/28/17 encounter (Office Visit) with Perla Hernandez MD Medication Sig Dispense Refill ??? doxycycline monohydrate (MONODOX) 100 mg Capsule take 1 capsule by mouth twice a day 0 ??? predniSONE (DELTASONE) 20 mg Tablet take 1 tablet by mouth once daily 0 ??? promethazine-codeine (PHENERGAN WITH CODEINE) 6.25-10 mg/5 mL Syrup TAKE 5MLS BY MOUTH EVERY 6 HOURS NEEDED 0 ??? oxyCODONE (ROXICODONE) 5 mg Tablet Take 1 tablet by mouth every 4 hours as needed for Pain. 10 tablet 0 ??? oxyCODONE (ROXICODONE) 5 mg Tablet Take 2.5 mg by mouth every 8 hours as needed for Pain. ??? empagliflozin (JARDIANCE) 10 mg Tablet Take 10 mg by mouth daily. ??? cyclobenzaprine (FLEXERIL) 5 mg Tablet Take 5 mg by mouth as needed. ??? ONETOUCH ULTRA TEST Strip 0 ??? [...] as needed for Wheezing. Use with spacer ALLERGIES Allergies Allergen Reactions ??? Aspirin Other reaction(s): GI Upset ??? Celecoxib Other reaction(s): GI Upset ??? Fluoxetine ??? Fluoxetine Hcl CIS - BAD RASH ??? Metformin Diarrhea and Nausea And Vomiting ??? Rofecoxib Other reaction(s): bleeding SOCIAL HISTORY Social History Social History ??? Marital status: Spouse name: N/A ??? Number of children: N/A ??? Years of education: N/A Occupational History ??? Not on file. Social History Main Topics ??? Smoking status: Current Every Day Smoker Packs/day: 0.50 Years: 40.00 Types: Cigarettes ??? Smokeless tobacco: Never Used ??? Alcohol use No ??? Drug use: No ??? Sexual activity: Not on file Other Topics Concern ??? Not on file Social History Narrative FAMILY HISTORY There is no family history of inflammatory bowel disease or celiac disease. There is no history of liver disease. Grandmother with colon cancer in her 60's. Brother with hodgkin's lymphoma. Aunt with leukemia. Vitals: 09/28/17 0845 BP: 153/68 Pulse: 95 Weight: 84.6 kg (186 lb 6.4 oz) Height: 165.1 cm (5' 5) PHYSICAL EXAM General: Appears stated age, NAD Eyes: Normal sclera, normal conjunctiva ENT: Moist mucus membranes, normal posterior pharynx Lymph: No lymphadenopathy of the head or neck Heart: Heart sounds I and II were audible, no added sounds, no murmurs Lungs: Wheeze bilaterally Abdomen: Soft, mild tenderness in RUQ, pain reproducible on exam, negative Carnett's, no organomegaly, normal active bowel sounds Extremities: No peripheral edema Skin: No jaundice, spider nevi, palmar erythema Neuro: No asterixis, grossly intact Mental: Appropriate affect, oriented in person, place, and time Fibroscan Results: Mean kPa: 10.2 Mean IQR: 13% (goal is <30 %) Success rate: 91 (goal is >60%) Predicted fibrosis stage: F3 ASSESSMENT/PLAN #1 Steatohepatitis with grade 3 fibrosis Fiber scan today confirmed steatosis with grade 3 fibrosis. With her history of hepatitis C despite achieving SVR she will require screening for HCC by ultrasound every [address] and ultrasound fromAugust 2017 were negative. Repeat imaging required February 2018. This can be done through her primary care provider recommend annual AFP. She would have been at risk for portal hypertension previouslydue to her alcohol intake and hepatitis C but based on imaging, labs, and fibroscan I do not feel that she is likely to have clinically significant portal hypertension at this time. #2 Diarrhea #3 Abnormal weight loss #4 Abdominal pain Recommend infectious workup for her diarrhea with stool studies (C. difficile, Giardia given the persistent nature, and other common pathogens). I will also obtain a fecal count protected. Given her weight loss and no previous endoscopic evaluation recommended a EGD as well as colonoscopy. If infectious workup is negative will obtain small bowel biopsies and random colon biopsies. This could all be secondary to a postinfectious syndrome as her symptoms started are quite typical for a viral gastroenteritis. If workup is completely negative given the mild adenopathy noted this was likely infectious but repeat imaging would be indicated. Perla Hernandez MD Hepatology and Gastroenterology [facility] [place] V: [phone] Copy: Hai Gallegos MD (Inactive) [address] [facility] [id number] documented in this encounter Procedure Notes Perla Hernandez MD - 09/28/2017 9:00 AM EDTAssociated Order(s): FIBROSCAN Procedure(s): FIBROSCAN Pre-Procedure Diagnose(s): Diarrhea, unspecified type [facility] Liver Fibrosis Assessment Report Indication: Elevated liver enzymes Performed by: Perla Hernandez MD Procedure: Vibration Controlled Transient Elastography (VCTE) or Fibroscan [place] Protocol: Patient's identity, procedure and site were verified, confirmatory pause performed. Discussed procedure including risks and potential complications. Questions answered. Patient verbalizes understanding and wishes to proceed with Fibroscan assessment. Patient was placed in the supine position with right arm in maximum abduction to allow optimal exposure of right lateral abdomen. Patient was briefly assessed. Testing was performed in the mid-axillarylocation. 50Hz Shear Wave pulses were applied and the resulting Shear Wave and Propagation Speed wasdetected with a 3.5MHz ultrasonic signal, using the Fibroscan probe. Skin to liver capsule distance and liver parenchyma were accessed during the entire examination with the Fibroscan probe. Patient was instructed to breathe normally and abstain from sudden movements during the procedure. At least tenSheer Waves were produced; individual measurements of each Shear Wave were calculated. Patient tolerated the procedure well with no complications. XL-probe was used. Fibroscan Results: Median kPa: 10.2 Mean IQR: 13% (goal is <30 %) Number of valid measurements: 10 (at least 10 required) Number of invalid measurements: 1 Predicted fibrosis stage: F3 CAP (dB/m): 356 Estimated steatosis grade: 3/3 % hepatocytes affected: >66% Interpretation: Based on this Fibroscan result, history, clinical examination and review of laboratory and radiological data, this patient likely has stage F3 liver fibrosis. documented in this encounter Plan of Treatment Upcoming Encounters Date Type Specialty Care Team Description 08/28/2022 Laboratory Appointment Lab 08/28/2022 Appointment Radiology Perla Hernandez MD [facility] [place] [address] ([place]) 08/28/2022 Office Visit Gastroenterology Andrew Smith PA [facility] [place] [address] ([place]) documented as of this encounter Procedures Procedure Name Priority Date/Time Associated Diagnosis Comme nts [id number] Routine 09/28/2017 12:13 PM Diarrhea, unspecified Results for this EDT type procedure are i n the results section. documented in this encounter Results Calprotectin, Stool (10/09/2017 12:00 PM EDT) P athologist Signature Calprotectin 44.3 <=50.0 PERLA PATEL (Normal) [facility] Comment: Test Performed by: [facility] - [address] [address] Specimen Anatomical Collection Method Collection Time Receive d Time (Source) Location / / Volume Laterality Stool specimen 10/09/2017 12:00 8 8:57 (specimen) PM EDT AM EDT Resulting Agency Comment Spec In Lab Perla Hernandez MD CHEMISTRY ORDERABLES Performing Organization Address [facility] [place] [address] C. Difficile Screen (10/09/2017 12:00 PM EDT) Analysis Performed At Patho logist Time Signature C Diff Screen Negative Negative [facility] Comment: C. diff ??Negative Clostridium difficile is not present in the specimen. If patient is having diarrhea suspected to be from an infecti ous cause, then Contact Precautions are still required. Specimen Anatomical Collection Method Collection Time Receive d Time (Source) Location / / Volume Laterality Stool specimen 10/09/2017 12:00 8 6:16 (specimen) PM EDT PM EDT Resulting Agency Comment Spec In Lab Perla Hernandez MD MICROBIOLOGY - GENERAL ORDER PRAFUL Performing Organization Address City/[facility] [place] [address] [id number] (09/28/2017 12:13 PM EDT) Narrative Perla Hernandez MD - 09/28/2017 12:13 P M EDT Perla Hernandez MD ? 09/28/2017 12:13 PM [facility] Liver Fibrosis Asses sment Report Indication: ?? Elevated liver enzymes Performed by: ??Perla Hernandez MD Procedure: Vibration Controlled Transien t Elastography (VCTE) or Fibroscan [place] Protocol: Patient's identity, procedure and site were verified, confirmatory pause performed. Discussed procedure including risks and potential complicati ons. Questions answered. Patient verbalizes understanding and wis hes to proceed with Fibroscan assessment. Patient was placed in the supine positio n with right arm in maximum abduction to allow optimal expos ure of right lateral abdomen. Patient was briefly assessed. T esting was performed in the mid-axillary location. 50Hz Shear Wa ve pulses were applied and the resulting Shear Wave and Propaga tion Speed was detected with a 3.5MHz ultrasonic signal, using t he Fibroscan probe. Skin to liver capsule distance and liver pare nchyma were accessed during the entire examination with the F ibroscan probe. Patient was instructed to breathe normally and a bstain from sudden movements during the procedure. At least ten Sheer Waves were produced; individual measurements of eac h Shear Wave were calculated. Patient tolerated the proced ure well with no complications. XL-probe was used. Fibroscan Results: Median kPa: 10.2 Mean IQR: 13% (goal is <30 %) Number of valid measurements: 10 (at [address] st 10 required) Number of invalid measurements: 1 Predicted fibrosis stage: F3 CAP (dB/m): 356 Estimated steatosis grade: 3/3 % hepatocytes affected: >66% Interpretation: Based on this Fibroscan result, history, clinical examination and review of laboratory and radiological da ta, this patient likely has stage F3 liver fibrosis. Perla Hernandez MD PROCEDURE/MINOR SURGICAL ORD ERABLES documented in this encounter Visit Diagnoses Diagnosis Diarrhea, unspecified type documented in this encounter Care Teams Delivery Supervisor Relationship Specialty Start Date End Date Hai Gallegos MD PCP - General 05/31/10 10/09/[address] [place] [address] documented as of this encounter
--- OUTSIDE RECORDS SUMMARY | 2022-04-28 01:10 | XMS_ITS | Encounter Summary ---
:1960 Author Organization [facility] [place] [address] Care Team Providers Name Role Phone Hai Gallegos MD Primary Care Provider [phone] Encounter Details Date Type Department Care Team Description 08/20/2017 Hospital Encounter Radiology Library at Phillip Gallegos [facility] [place] [place] MD Toshia [facility] [address] [place] [phone] (Wo rk) Social History Tobacco Use Types [...] 1 tablet by mouth 10 tablet 0 02/23///20 mg Tablet every 4 hours as needed 7 1 8 for Pain. oxyCODONE (ROXICODONE) 5 Take 2.5 mg by mouth 0 04//20 mg Tablet every 8 hours as needed [...] 10 Take 10 mg by mouth 0 09/27/20 mg TabletIndications: daily. Indications: 19 hypercholesterolemia Hypercholesterolemia documented as of this encounter Plan of Treatment Upcoming Encounters Date Type Specialty Care Team Description 08/28/2022 Laboratory Appointment Lab 08/28/2022 Appointment Radiology Yuliana Hernandez MD [facility] [address] [place] [address] (Wo rk) 08/28/2022 Office Visit Gastroenterology Andrew Smith PA [facility] [address] [place] [address] ([place]o r[place]) documented as of this encounter Procedures Procedure Name Priority Date/Time Associated Diagnosis Comme nts FILM LIBRARY Routine 08/20/2017 12:00 AM Results for this STORAGE ONLY DX EST procedure ar e in CHEST the results section. documented in this encounter Results Film Library- Storage Only DX Chest (08/20/2017 12:00 AM EST) Specimen (Source) Anatomical Location Collection Method / Collectio n Time Received Time / Laterality Volume Narrative [facility] - 08/21/2017 4:54 PM EST This result has an attachment that is no t available. This exam is for storage only and is aut o-finalizing. Hai Gallegos MD [facility] FILM LIBRARY ORDERABLES Performing Organization Address City/State/ZIP Code Phon e Number [facility] [place], [place] documented in this encounter Visit Diagnoses Not on filedocumented in this encounter Care Teams Liquor Department Manager Relationship Specialty Start Date End Date Hai Gallegos MD PCP - General 05/31/10 10/09/[address] [place] [place] [address] documented as of this encounter
--- OUTSIDE RECORDS SUMMARY | 2022-04-28 01:10 | XMS_ITS | Encounter Summary ---
:1960 Author Organization [facility] [place] [address] Care Team Providers Name Role Phone Hai Lopez DO Primary Care Provider Reason for Visit Diagnostic Test (Routine) - Closed Specialty Diagnoses / Procedures Referred By Contact Refer red To Contact Radiology Diagnoses Epigastric abdominal pain Yuliana Hernandez MD [facility] Rad Nuclear Med Procedures NM [place] [address] [place] [address] Fax: Referral ID Status Reason Start Date Expiration Date Visits V isits Requested Authorized [id number] Closed Specialty 04/01/2018 04/01/2019 5 5 Service Requested Encounter Details Date Type Department Care Team Description 05/15/2018 Hospital Encounter Nuclear Medicine at [place] [address] [place] [address] [phone] Social History Tobacco Use Types Packs/Day Years [...] Lab 08/28/2022 Appointment Radiology Yuliana Hernandez MD [facility] [address] [place] [address] ([place]) 08/28/2022 Office Visit Gastroenterology Andrew Smith PA [facility] [address] [place] [address] ([place]) documented as of this encounter Procedures Procedure Name Priority Date/Time Associated Diagnosis Comme [facility] GASTRIC EMPTYING Routine 05/15/2018 12:46 PM Epigastric abd ominal Results for this SCAN EST pain procedure are i n the results section. documented in this encounter Results NM Gastric Emptying Scan [...] IMPRESSION Normal gastric emptying Yuliana Hernandez MD [facility] ORDERABLES documented in this encounter Visit Diagnoses Not on filedocumented in this encounter Care Teams Parts Processor Relationship Specialty Start Date End Date Hai Lopez DO PCP - General Family Medicine 10/10/[address] [place] [address] documented as of this encounter
--- OUTSIDE RECORDS SUMMARY | 2022-04-28 01:10 | XMS_ITS | Encounter Summary ---
:1960 Author Organization [facility] [place] [address] Care Team Providers Name Role Phone Hai Lopez DO Primary Care Provider Reason for Referral Diagnostic Test (Routine) - Closed Specialty Diagnoses / Procedures Referred By Contact Refer red To Contact Radiology Diagnoses Epigastric abdominal pain Yuilana Hernandez MD [facility] Rad Nuclear Med Procedures [place] [address] [place] [address] Fax: Referral ID Status Reason Start Date Expiration Date Visits V isits Requested Authorized [id number] Closed Specialty 04/01/2018 04/01/2019 5 5 Service Requested Reason for Visit Diagnostic Test (Routine) - Closed Specialty Diagnoses / Procedures Referred By Contact Refer red To Contact Radiology Diagnoses Epigastric abdominal pain Yuliana Hernandez MD [facility] Rad Nuclear Med Procedures [place] [address] [place] [address] Fax: Referral ID Status Reason Start Date Expiration Date Visits V isits Requested Authorized [id number] Closed Specialty 04/01/2018 04/01/2019 5 5 Service Requested Encounter Details Date Type Department Care Team Description 05/15/2018 Hospital Encounter Nuclear Medicine at Yuliana Hernandez , Epigastric abdominal Yuliana Gordon MD pain [facility] [address] [place], [place] [phone] Social History Tobacco Use Types Packs/Day Years [...] 08/28/2022 Appointment Radiology Yuliana Hernandez MD [facility] [place], [place] [address] (Wo rk) 08/28/2022 Office Visit Gastroenterology Andrew Smith PA [facility] [address] [place], [place] [address] (Wo rk) documented as of this encounter Procedures Procedure Name Priority Date/Time Associated Diagnosis Comme nts NM GASTRIC EMPTYING Routine 05/15/2018 12:46 PM Epigastric [...] Diagnosis Epigastric abdominal pain Abdominal pain, epigastric documented in this encounter Administered Medications Inactive Administered Medications - up to 3 most recent administrations Medication Order MAR Action Action Date Dose Rate Site technetium (Tc-99m) sulfur Given 05/15/2018 9:45 AM EST 0.6 mCi colloid injection 0.6 mCi 0.6 mCi, Oral, ONCE PRN, 1 dose, Starting on Sun05/15/18 at 0945, Until Sun05/15/18 at 0945, Per Protocol, Routine documented in this encounter Care Teams Tool Machine Shop Supervisor Relationship Specialty Start Date End Date Hai Lopez DO PCP - General Family Medicine 10/10/[address] [place] [address] documented as of this encounter
--- OUTSIDE RECORDS SUMMARY | 2022-04-28 01:10 | XMS_ITS | Encounter Summary ---
:1960 Author Organization [facility] [place] [address] Care Team Providers Name Role Phone Hai Gallegos MD Primary Care Provider [phone] Encounter Details Date Type Department Care Team Description 08/16/2017 Hospital Encounter Radiology Library at Phillip Gallegos [facility] [place] MD Toshia [facility] [address] [place] [phone] (Wo rk) Social History Tobacco Use Types [...] Lab 08/28/2022 Appointment Radiology Yuliana Hernandez MD [facility] [address] [place] [address] (Wo rk) 08/28/2022 Office Visit Gastroenterology Andrew Smith PA [facility] [address] [place] [address] (Wo rk) documented as of this encounter Procedures Procedure Name Priority Date/Time Associated Comments Diagnosis FILM LIBRARY STORAGE Routine 08/16/2017 12:00 AM Results for this ONLY ULTRASOUND EST procedure ar e in STUDY the results section. documented in this encounter Results Film Library- Storage Only Ultrasound Study (08/16/2017 12:00 AM EST) Specimen (Source) Anatomical Location Collection Method / Collectio n Time Received Time / Laterality Volume Narrative RAD - 08/21/2017 4:54 PM EST This result has an attachment that is no t available. This exam is for storage only and is aut o-finalizing. Hai Gallegos MD [facility] FILM LIBRARY ORDERABLES Performing Organization Address City/State/ZIP Code Phon e Number RAD [facility], [place] documented in this encounter Visit Diagnoses Not on filedocumented in this encounter Care Teams Manager Voice Relationship Specialty Start Date End Date Hai Gallegos MD PCP - General 05/31/10 10/09/[address] [place] [address] documented as of this encounter
--- OUTSIDE RECORDS SUMMARY | 2022-04-28 01:10 | XMS_ITS | Encounter Summary ---
:1960 Author Organization [facility] [place] [address] Care Team Providers Name Role Phone Hai Gallegos MD Primary Care Provider [phone] Encounter Details Date Type Department Care Team Description 08/16/2017 Hospital Encounter Radiology Library at Phillip Gallegos [facility] [place] Toshia [facility] [address] [place] [phone] (Wo rk) Social History Tobacco Use Types [...] 5 Take 2.5 mg by mouth 0 //20 mg Tablet every 8 hours as needed [...] 08/28/2022 Appointment Radiology Yuliana Hernandez MD [facility] [address] [place] [address] (Wo rk) 08/28/2022 Office Visit Gastroenterology Andrew Smith PA [facility] [address] [place] [address] (Wo rk) documented as of this encounter Procedures Procedure Name Priority Date/Time Associated Diagnosis Comme nts FILM LIBRARY Routine 08/16/2017 12:05 AM Results for this STORAGE ONLY CT EST procedure ar e in ABDOMEN AND PELVIS the resul ts section. documented in this encounter Results Film Library- Storage Only CT Abdomen & Pelvis (08/16/2017 12:05 AM EST) Specimen (Source) Anatomical Location Collection Method / Collectio n Time Received Time / Laterality Volume Narrative [facility] - 08/21/2017 4:56 PM EST This result has an attachment that is no t available. This exam is for storage only and is aut o-finalizing. Hai Gallegos MD IMAdelso FILM LIBRARY ORDERABLES Performing Organization Address City/State/ZIP Code Phon e Number [facility] [place], [place] documented in this encounter Visit Diagnoses Not on filedocumented in this encounter Care Teams Cable Television Access Coordinator Relationship Specialty Start Date End Date Hai Gallegos MD PCP - General 05/31/10 10/09/[address] [place] [address] documented as of this encounter
--- OUTSIDE RECORDS SUMMARY | 2022-04-28 01:10 | XMS_ITS | Encounter Summary ---
:1960 Author Organization [place] [address] Care Team Providers Name Role Phone Hai Gallegos MD Primary Care Provider [phone] Reason for Visit Reason Comments Back Pain Encounter Details Date Type Department Care Team Description 09/09/2015 Office Visit [facility] at [facility] Foley, Chronic low back pain [facility] [address], [place] [facility] [address] [place] [address] Social History Tobacco Use Types Packs/Day Years Used Date Current Every Day Smoker Cigarettes 0.5 Smokeless Tobacco: Never Used Sex Assigned at Date Recorded Not on file documented as of this encounter Progress Notes Juan Carlos Foley, PT - 09/09/2015 1:00 PM EST [facility] FUNCTIONAL CONGREGATION PROGRAM FRP 4 WEEK FOLLOW-UP Dear Mary Beth Holman, Thank you for attending your follow-up visit today. Your chief complaint requiring the FRP was low back and left lower extremity pain with sensory loss and weakness in the left lower extremity. Anatomic diagnoses have included lower back strain and sciatica. Prior treatments included injections, physical therapy, chiropractic, and medications. Most recent imaging has revealed no clear surgical lesionand surgery has been waived. Additional activity limiting health problems include history of bilateral knee pain, bilateral shoulder pain, left wrist cyst removal, left elbow tendon debridement procedures, diabetes, hypertension, hypercholesterolemia, vertigo, asthma, and neck pain with sensory loss and weakness affecting the left upper extremity. The progress during the FRP was remarkable for the following outcomes. Since completing the program, no new health problems have developed. Patient Active Problem List Diagnosis Code ??? Gastro-esophageal reflux K21.9 ??? Diabetes mellitus E11.9 ??? HLD (hyperlipidemia) E78.5 ??? Hypertension I10 ??? Chronic low back pain M54.5, G89.29 Results of the Touch Pad Questionnaires You Filled out: ? First Day of FRP? End of FRP? 4 Week Follow-up? 3 Month Follow-up? Today???s Pain Level (0-10)? 8? 7? Past Week???s Pain Level (0-10)? 7? 8? Quality of?? Sleep (lower = better)? 17?16? Fear of Pain Caused by Work Related Activity ?? (maximum = 42)? 32?25? Fear of Pain Caused by Non-work Activity ?? (maximum = 24)? 15?3? Total Fear of Pain ?? (maximum = 66)? 47? 28? Anxiety (score/range)? 3/Normal?13/moderate? Stress (score/range)? 12/Normal?16/mild? Depression (greater than 19 = depressed)? 17?29? Disability (past month, lower = better)? 38?26? Reported Tolerance (minutes):? First Day of FRP? End of Program? 4 Week Follow-Up? 3 Month Follow-Up? Sitting? 60?60?60 ? Standing? 30?45?60 ? Walking? 10?60?60 ? Flexibility (degrees): ? Low Back:? First Day of FRP? End of Program? 4 Week Follow- Up? 3 Month Follow-Up? Bending Forward? 40?65?60 ? Bending Back? 10? 15?20 ? Straight Leg Raise Right? 60?60?70 ? Straight Leg Raise Left? 50? 55?60 ? Straight Leg Raise-Pelvic? 20? 0?5 ? First Day of FRP? End of Program? 4 Week Follow-Up? 3 Month Follow-Up? Treadmill Endurance (MET level/HR)? 3/67?7/138?7/148 ? Reason for stop point? Left foot pain?Low back pain? Fatigue in legs ? Physical Capacity Test Results: Lifting: ?? (pounds/heart rate)? First Day of FRP? End of Program? 4 Week Follow-Up? 3 MonthFollow-Up? Repetitive Floor to Waist?10/115? 25/105?25/150 ? Repetitive Waist to Shoulder? 10/114? 20/119?20/149 ? 1-Time Maximum? 15? 30/115?30 ? Carry -2 Handed 50 ft? 15? 25/115?30 ? Work Demand Level? Sedentary- Light? Light ?Light ? Functional Goals: Functional Goals at Beginning of FRP? Current Status of Goals? 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 Old job is no longer available. Arranged with vocational rehabilitation for computer classes to start next week, hoping that could lead to secretarial position. Recreational:?? Be able to bend and lift up to 40 lbs to manage flower and vegetable gardens. Walk at least 1 mile for daily exercise without breaks. Resume horseback riding. Be able to sit to drive for up to 2 1/2 hours, to visit son, without taking a break.? Has not met lifting goal yet, but plans to obtain weights for continued progression. Surpassed walking goal. Has not tried horseback riding yet. Long car trips still require a break about every hour. Daily Living: Be able to sleep 6-7 hours/night; be able to shovel snow. Be able to stand 30 minutes to wash dishes; be able to clean bathroom, vacuum, mop and sweep floors without requiring breaks; be able to clean house in one day. ? Sleeping only about 4 hours per night. Able to shovel snow. Able to stand long enough to wash dishes and clean the bathroom. Other chores still require some breaksand not yet able to clean the whole house in one day.? Your Current Work/Functional Status: Not working. Status of Discharge Plans since Last Visit/Follow-up: Daily home exercise routine for flexibility and strength. Outdoor walking two days per week. Three days per week treadmill and Total gym routine. Wii video fitness routine two days per week. Assessment: Has established a consistent exercise routine and maintained her physical capacities thus far. Very active participation in self care planning. PLAN: Exercise: Agreed that she will continue established routine and incorporate functional crate lifting to continue progression as discussed today. 45 minutes were spent to review status of goals, test physical performance, and plan for continued self care. Cc: Mary Beth Holman [phone] [facility] [address] HAI GALLEGOS MD [address] [place] [id number] documented in this encounter Plan of Treatment Upcoming Encounters Date Type Specialty Care Team Description 08/28/2022 Laboratory Appointment Lab 08/28/2022 Appointment Radiology Yuliana Hernandez MD [facility] [address] [place] [address] (Wo rk) 08/28/2022 Office Visit Gastroenterology Andrew Smith PA [facility] [address] [place] [address] (Wo rk) documented as of this encounter Visit Diagnoses Diagnosis Chronic low back pain Lumbago documented in this encounter Care Teams Environmental Services Technician Relationship Specialty Start Date End Date Hai Gallegos MD PCP - General 05/31/10 10/09/[address] [place] [address] documented as of this encounter
--- OUTSIDE RECORDS SUMMARY | 2022-04-28 01:10 | XMS_ITS | Encounter Summary ---
:1960 Author Organization [facility] Address [facility] [place] [address] Care Team Providers Name Role Phone ChengHai riley DO Primary Care Provider Encounter Details Date Type Department Care Team Description 08/22/2018 Hospital Encounter Ultrasound at [facility] Perla Hernandez, Hepatic cirrhosis, [facility] unspecified hepatic [address] [facility] cirrhosis type, [place], [place] Center unspecified whether [phone] [place], [place] ascites present [phone] [id number] Social History Tobacco Use Types Packs/Day Years [...] Sig Dispensed Refills Start End Date Date LANTUS SOLOSTAR U-100 inject 52 units 0 INSULIN pen subcutaneously once daily 9 CHANTIX 0.5 mg Tablet take 1 tablet [...] for Wheezing. Use Aerosol Inhaler with spacer BD ULTRA-FINE SHORT PEN USE TO ADMINISTER LANTUS 0 09/28/19 NEEDLE 31 gauge x 5/16 SOLORSTAR 8 1 9 Needle gabapentin (NEURONTIN) 0 300 mg Capsule 8 [...] Laboratory Appointment Lab 08/28/2022 Appointment Radiology Perla Heranndez MD [facility] [address] [place] [address] (Wo rk) 08/28/2022 Office Visit Gastroenterology Andrew Smith PA [facility] [address] [place] [address] (Wo rk) documented as of this encounter Procedures Procedure Name Priority Date/Time Associated Diagnosis Comme nts US ABDOMEN COMPLETE Routine 08/22/2018 9:35 AM Hepatic cirrhos is, Results for this EST unspecified hepatic procedur e are in cirrhosis type, the results unspecified whether section. ascites present documented in this encounter Results US Abdomen Complete (08/22/2018 9:35 AM EST) Anatomical Region Laterality Modality Abdomen, Vascular Ultrasound Specimen (Source) Anatomical Collection Method Collection Time Re ceived Time Location / / Volume Laterality 08/22/2018 9:36 AM EST Impressions 08/22/2018 1:04 PM EST 1. Hepatopedal flow is demonstrated wit hin the liver. Liver is heterogeneous and slightly increased in echotexture. 2. CBD 5 mm. No cholelithiasis. ARM appearing right and left kidney wit hout evidence for hydronephrosis. 3. No splenomegaly. Abdominal aorta where visualized is nor mal in caliber as is the IVC. Thank you for letting us participate in the care of this patient. For questions regarding this report, please contact t marina number below. Electronically signed by: Jing peralta MD, [facility] ([phone]), at 10:44 AM ?Jing Betancur, Staff Physician Electronically Signed Final Report ?? 01:03 pm Narrative 08/22/2018 1:04 PM EST Abdominal ?(Signed Final 08/22/2018 01:03 pm) PATIENT INFO: ID #: ? [id number] ?: ??[birth year] (57 yrs) Name: ? MARY BETH ANTUNEZ ?Visit Date: 08/22/2018 09:36 am PERFORMED BY: Performed By: ? More Mccullough RDMS Attending: ?Gypsy REBOLLAR, Durga Morrell. Resident: ? Max Higuera MD Referred By: ?PERLA HERNANDEZ Location: ? [place] SERVICE(S) PROVIDED: ??[facility] - Abdominal Complete Survey - I [id number] ?[id number] INDICATIONS: ??cirrhosis, hx of Hep C, HCC screening , ??assess for portal hypertension ------ LIVER: ------ Right Lobe Length: ?? 18.8 ?? cm Echogenicity/Echotexture: ?? Normal Portal Veins: ?Hepatopetal GALLBLADDER: Cholelithiasis: ?No stones visua lized Focal Tenderness: ?Negative sonogra phic Becerril's sign BILIARY TRACT: Intrahepatic Ducts: ?? Normal Extrahepatic Ducts: ?? Normal Common Duct Size: ? 5.0 ? mm --------- PANCREAS: --------- Head: ? Normal Tail: ? Normal Body: ? Normal ------- SPLEEN: ------- Size (cm) ?L: ??11.6 ?AP: ?? 5.5 ? TV: ??5.1 Vol (ml): ?170.4 Comment: ?Normal size and appearanc e RIGHT KIDNEY: Size (cm) ?L: ??10.9 Cortical Thickness: ?Normal Cortical Echogenicity: ?? Normal Hydronephrosis: ?No sonogr aphic evidence LEFT KIDNEY: Size (cm) ?L: ??12.3 Cortical Thickness: ?Normal Cortical Echogenicity: ?? Normal Hydronephrosis: ?No sonogr aphic evidence ------ AORTA: ------ Measurements (cm): Proximal ? AP: ?? 2.0 Mid ?AP: ?? 1.4 Distal ? AP: ?? 1.4 Comment: ?Normal in caliber where v isualized ---- IVC: ---- Normal in caliber where visualized Procedure Note Jing Betancur MD - 08/22/2018Forma tting of this note might be different from the original. Abdominal (Signed Final 08/22/2018 01:0 3 pm) PATIENT INFO: ID #: [id number] : [birth year] (57 y rs) Name: MARY BETH ANTUNEZ Visit Date: 08/22 09:36 am PERFORMED BY: Performed By: More Mccullough RDMS Attending: Jing Betancur MD Resident: Max Higuera MD Referred By: PERLA HERNANDEZ Location: [place] SERVICE(S) PROVIDED: [facility] - Abdominal Complete Survey - IMG [id number] INDICATIONS: cirrhosis, hx of Hep C, HCC screening, assess for portal hypertension ------ LIVER: ------ Right Lobe Length: 18.8 cm Echogenicity/Echotexture: Normal Portal Veins: Hepatopetal GALLBLADDER: Cholelithiasis: No stones visualized Focal Tenderness: Negative sonographic Becerril's sign BILIARY TRACT: Intrahepatic Ducts: Normal Extrahepatic Ducts: Normal Common Duct Size: 5.0 mm --------- PANCREAS: --------- Head: Normal Tail: Normal Body: Normal ------- SPLEEN: ------- Size (cm) L: 11.6 AP: 5.5 TV: 5.1 Vol (ml): 170.4 Comment: Normal size and appearance RIGHT KIDNEY: Size (cm) L: 10.9 Cortical Thickness: Normal Cortical Echogenicity: Normal Hydronephrosis: No sonographic evidence LEFT KIDNEY: Size (cm) L: 12.3 Cortical Thickness: Normal Cortical Echogenicity: Normal Hydronephrosis: No sonographic evidence ------ AORTA: ------ Measurements (cm): Proximal AP: 2.0 Mid AP: 1.4 Distal AP: 1.4 Comment: Normal in caliber where visual ized ---- IVC: ---- Normal in caliber where visualized IMPRESSION 1. Hepatopedal flow is demonstrated wit hin the liver. Liver is heterogeneous and slightly increased in echotexture. 2. CBD 5 mm. No cholelithiasis. ARM appearing right and left kidney wit hout evidence for hydronephrosis. 3. No splenomegaly. Abdominal aorta where visualized is nor mal in caliber as is the IVC. Thank you for letting us participate in the care of this patient. For questions regarding this report, please contact t he number below. Electronically signed by: Jing peralta MD, [facility] ([phone]), at 10:44 AM Jing Betancur, Staff Physician Electronically Signed Final Report 08/22 01:03 pm Perla Hernandez MD IMG US GEN ORDERABLES documented in this encounter Visit Diagnoses Diagnosis Hepatic cirrhosis, unspecified hepatic c irrhosis type, unspecified whether ascites present documented in this encounter Care Teams Credit Rating Checker Relationship Specialty Start Date End Date Hai Lopez DO PCP - General Family Medicine 10/10/17 [address] [place] [address] documented as of this encounter
--- OUTSIDE RECORDS SUMMARY | 2022-04-28 01:10 | XMS_ITS | Encounter Summary ---
:1960 Author Organization [facility] [place] [address] Care Team Providers Name Role Phone Hai Gallegos MD Primary Care Provider [phone] Encounter Details Date Type Department Care Team Description 10/09/2017 Hospital Encounter Laboratory Diarrhea, unspecified [facility] [place] [address] Social History Tobacco Use Types Packs/Day [...] (NEURONTIN) 0 300 mg Capsule 8 19 doxycycline monohydrate take 1 capsule by mouth 0 10/11/19 (MONODOX) 100 mg Capsule twice a day 8 18 predniSONE (DELTASONE) 20 take 1 tablet by mouth 0 20 mg Tablet once daily 8 18 promethazine-codeine TAKE 5MLS BY MOUTH EVERY 0 0 09/28/19 (PHENERGAN WITH CODEINE) 6 HOURS NEEDED 8 19 6.25-10 mg/5 mL Syrup oxyCODONE (ROXICODONE) 5 Take 2.5 mg by mouth 0 10/11/19 mg Tablet every 8 hours as needed [...] Lab 08/28/2022 Appointment Radiology Perla Hernandez MD [facility] [address] [place] [address] (Wo rk) 08/28/2022 Office Visit Gastroenterology Andrew Smith PA [facility] [address] [place] [address] (Wo rk) documented as of this encounter Procedures Procedure Name Priority Date/Time Associated Comments Diagnosis STOOL CULTURE SCREEN Routine 10/09/2017 12:00 Diarrhea, ([facility]D/[facility]) PM EDT unspecified type CAMPYLOBACTER ANTIGEN Routine 10/09/2017 12:00 Diarrhea, Re sults for this PM EDT unspecified type procedure a re in the results section. CRYPTOSPORIDIUM OOCYST Routine 10/09/2017 12:00 Diarrhea, R esults for this ANTIGEN ([facility]/CGP/APD) PM EDT unspecified type p rocedure are in the results section. C. DIFFICILE SCREEN Routine 10/09/2017 12:00 Diarrhea, Resu lts for this PM EDT unspecified type procedure a re in the results section. CALPROTECTIN,STOOL Routine 10/09/2017 12:00 Diarrhea, Resul ts for this PM EDT unspecified type procedure a re in the results section. SHIGA TOXIN ASSAY Routine 10/09/2017 12:00 Diarrhea, Result s for this PM EDT unspecified type procedure a re in the results section. GIARDIA/CRYPTOSPORIDIUM Routine 10/09/2017 12:00 Diarrhea, ANTIGENS PM EDT unspecified type ([facility]/CGP/APD/[facility]H) GIARDIA ANTIGEN Routine 10/09/2017 12:00 Diarrhea, Results for this ([facility]/CGP/APD/[facility]H) PM EDT unspecified type proce dure are in the results section. STOOL CULTURE Routine 10/09/2017 12:00 Diarrhea, Results fo r this PM EDT unspecified type procedure a re in the results section. documented in this encounter Results Shiga Toxin Detection (10/09/2017 12:00 PM EDT) [facility] CartiHeal Method Time Signature Shiga Toxin EIA Negative for Shiga Toxin 1 PERLA MORRIS Assay EIA Negative for Shiga Toxin 2 [facility] Specimen Anatomical Collection Method Collection Time Receive d Time (Source) Location / / Volume Laterality Stool specimen 10/09/2017 12:00 8 6:17 (specimen) PM EDT PM EDT Resulting Agency Comment Spec In Lab Perla Hernandez MD MICROBIOLOGY - GENERAL ORDER PRAFUL Performing Organization Address City/State/ZIP [place] [address] Campylobacter Antigen (10/09/2017 12:00 PM EDT) Component Value Ref Test Analysis Performed At [facility] CartiHeal Range Method Time Signature Campylobacter Ag Immunoassay PERLA Negative for JORGE Campylobacter [facility] LABORATORY Specimen Anatomical Collection Method Collection Time Receive d Time (Source) Location / / Volume Laterality Stool specimen 10/09/2017 12:00 8 6:17 (specimen) PM EDT PM EDT Resulting Agency Comment Spec In Lab Perla Hernandez MD MICROBIOLOGY - GENERAL ORDER PRAFUL Performing Organization Address City/[facility]/[place] [address] Stool culture (10/09/2017 12:00 PM EDT) [facility]ist Method Time Signature Stool Culture No enteric [facility] LABORATORY Specimen Anatomical Collection Method Collection Time Receive d Time (Source) Location / / Volume Laterality Stool specimen 10/09/2017 12:00 8 6:17 (specimen) PM EDT PM EDT Resulting Agency Comment Spec In Lab Perla Hernandez MD MICROBIOLOGY - GENERAL ORDER PRAFUL Performing Organization Address City/[facility]/[place] [address] Cryptosporidium Oocyst Antigen (Leb/CGP) (10/09/2017 12:00 PM EDT) [facility] gist Method Time Signature Cryptosporidium Negative Negative [facility] LABORATORY Specimen Anatomical Collection Method Collection Time Receive d Time (Source) Location / / Volume Laterality Stool specimen 10/09/2017 12:00 8 6:15 (specimen) PM EDT PM EDT Resulting Agency Comment Spec In Lab Perla Hernandez MD MICROBIOLOGY - GENERAL ORDER PRAFUL Performing Organization Address City/[facility]/[place] [address] Giardia antigen (Leb/CGP) (10/09/2017 12:00 PM EDT) Analysis Performed At [facility] logist Time Signature Giardia Screen Negative Negative [facility] Comment: Examination for other intestina l parasites requires foreign travel history. Specimen Anatomical Collection Method Collection Time Receive d Time (Source) Location / / Volume Laterality Stool specimen 10/09/2017 12:00 8 6:15 (specimen) PM EDT PM EDT Resulting Agency Comment Spec In Lab Perla Hernandez MD MICROBIOLOGY - GENERAL ORDER PRAFUL Performing Organization Address City/[facility]/[place] [address] Calprotectin, Stool (10/09/2017 12:00 PM EDT) P athologist Signature Calprotectin 44.3 <=50.0 PERLA PATEL (Normal) [facility] LABORATORY Comment: Test Performed by: [facility] - [address] [address] Specimen Anatomical Collection Method Collection Time Receive d Time (Source) Location / / Volume Laterality Stool specimen 10/09/2017 12:00 8 8:57 (specimen) PM EDT AM EDT Resulting Agency Comment Spec In Lab Perla Hernandez MD CHEMISTRY ORDERABLES Performing Organization Address City/[facility]/ZIP Code Phon e Number [address] C. Difficile Screen (10/09/2017 12:00 PM EDT) Analysis Performed At Patho logist Time Signature C Diff Screen Negative Negative [facility] Comment: C. diff ??Negative Clostridium [...] - GENERAL ORDER PRAFUL Performing Organization Address City/[facility]/ZIP Code Phon e Number [address] documented in this encounter Visit Diagnoses Diagnosis Diarrhea, unspecified type documented in this encounter Care Teams Brass Pickler Relationship Specialty Start Date End Date Hai Gallegos MD PCP - General 05/31/10 10/09/[address] [place] [address] documented as of this encounter
--- OUTSIDE RECORDS SUMMARY | 2022-04-28 01:10 | XMS_ITS | Encounter Summary ---
:1960 Author Organization [facility] [place] [address] Care Team Providers Name Role Phone Hai Gallegos MD Primary Care Provider [phone] Reason for Visit Auth/Cert Specialty Diagnoses / Procedures Referred By Contact Refer red To Contact Diagnoses Sialadenitis sialadenitis Procedures PRO EXCISION SUBMAXILLARY GLAND EXCISION SUBMANDIBULAR (SUBMAXILLARY) GLAND-GARY (WRVU 6.14) Referral ID Status Reason Start Date Expiration Date Visits Requ ested Visits Authorized [id number] 1 1 Encounter Details Date Type Department Care Team Description 02/23/2017 Anesthesia Event Main Operating Room Santos Morrison MD [address] [place] [address] [phone] Anesthesia Record Procedure Summary Procedure Name Responsible Anesthesia Start Anesthesia Stop Anesthesiologist Time Time EXCISION SUBMANDIBULAR Santos Manuel MD 02/23/17 0837 02/23/17 1039 (SUBMAXILLARY) GLAND-GARY (WRVU 6.14) (Left Face) Events Date Time Event Comment 02/23/2017 0837 AN Verify 0837 Start 0837 An Start Data 0843 An Induction 0848 An Intubation 0852 Anesthesia Ready 0919 Procedure Start 0928 Break/Relief In Laurence A Leandro, NURSERY LABORER 0946 Break/Relief Out 1026 Procedure Stop 1029 Extubation/LMA Out Pt met extuba tion criteria TV 600 to 800 ml , able to follow c ommand OP suctiooned ETT D/C FM ay 10L applie d 1031 an stop data 1039 Recovery or ICU Handoff Patient care was transferred to the destination unit staff after review of the patient's medica l history, current anesthetic/surgi james status and plan, according to the Provider Handoff Checklist. Leighann LEDEZMA Rn given report, pt with an active cough and natural airway with FM art 10l 1039 Stop 1045 Name Total Midazolam 2 mg fentaNYL 100 mcg Propofol 190 mg PHENYLephrine 400 mcg ePHEDrine 50 mg Ondansetron 4 mg Albuterol Inhaler 2 puff PHENYLephrine INF 2,600 mcg Succinylcholine 140 mg ampicillin-sulbactam (UNASYN) 3 g vial attach to sodiu m chloride 0.9% 100 3 g mL Mini-Bag Plus Dexmedetomidine 20 mcg Lidocaine 4% LTA 4 mL Propofol INF 177.46 mg lactated Ringers infusion 1,000 mL 800 mL Agents Name O2 Air N2O Sevoflurane (et) Blood No blood administrations on file. Lines, Drains, and Airways Type Details Placement Removal Incision 02/23/17; other (see 02/23/17 0000 by Ansary, 1715 by comments) (Submaxillary); SHAKIRA Ambrose Dierdre L 03/06/22 (LDA cleanup utility RA#[id number]); 1715 (LDA cleanup utility RA#[id number]) PIV 02/23/17; 0728; metacarpal 02/23/17 0728 by 02/06 02/22 1145 by vein (top of hand), left; Carmen Basurto R N Gutermuth, Ellen M, RN [id number] catheter system; 20 gauge; distraction, intradermal injection, tolerated well; 0; 02/23/17; 1145 ETT Mask Ventilation: Difficult 02/23/17 0848 by Toy hernández, 02/23/17 1029 by Neli (3); ETT Type: Cuffed; ETT Niurka W, NURSERY LABORER Niurka W , NURSERY LABORER Size: 7 mm; Mac Blade: 3; Exchange: Bougie; Notes: Asleep, Pre-O2, Stylette, Troop Elev.; Attempts: 1; Laryngoscopy Grade: 3; ETT Placement Verified By: Auscultation, Capnometry; Secured at Teeth: 22 cm; Inserted by: franklin moon crna documented in this encounter Social History Tobacco Use Types Packs/Day Years Used Date Current Every Day Smoker Cigarettes 0.5 40 Smokeless Tobacco: Never Used Alcohol Use Standard Drinks/Week Comments No 0 (1 standard drink = 0.6 oz pure alcoho l) Sex Assigned at Date Recorded Not on file documented as of this encounter OR Notes Anesthesia Postprocedure Evaluation - Santos Manuel MD - 02/23/2017 10:45 AM EDT [facility] Department of Anesthesiology Post-procedure Note Patient: Mary Beth Holman Procedure Summary Date Anesthesia Start Anesthesia Stop Room / Location 02/23/17 08 103[facility] OR [facility] MAIN OR Procedure Diagnosis Surgeon Responsible Provider EXCISION SUBMANDIBULAR (SUBMAXILLARY) GLAND-GARY (WRVU 6.14) (Left Face) Sialadenitis (sialadenitis) Salty Butler MD Toth, Adam R, MD All Anesthesia Providers: Anesthesiologist: Santos Manuel MD NURSERY LABORER: Niurka Moon CRNA Last (1hr) Vitals: BP 120/65 (02/23/17 1039) Temp Pulse Resp SpO2 97 % (02/23/17 1039) Patient Location: PACU/[facility] Level of Consciousness: Awake and Alert Pain Management: Satisfactory Analgesia PONV: None Cardiovascular Status: At Baseline and Hemodynamically Stable Respiratory Status: At Baseline and Room Air Postoperative Fluid Status: Intravascular EUvolemia Possible Anesthetic Complications: NONE apparent at time of evaluation Final Primary Anesthesia Type: General (The anesthetic type performed was the same as planned.) Comments: Santos Manuel MD Anesthesia Preprocedure Evaluation - Santos Manuel MD - 02/22/2017 9:34 PM EDT Images from the original note were not included. Pre-Anesthesia Evaluation for: Mary Beth reid 56 y.o. female. Procedure(s): EXCISION SUBMANDIBULAR (SUBMAXILLARY) GLAND-GARY (WRVU 6.14) Patient Active Problem List Diagnosis ??? Chronic low back pain ??? Hypertension ??? Diabetes mellitus ??? Gastro-esophageal reflux ??? HLD (hyperlipidemia) Past Medical History: Diagnosis Date ??? Acid reflux ??? Diabetes ??? Emphysema/COPD ??? High cholesterol ??? Hypertension Past Surgical History: Procedure Laterality Date ??? SECTION 3 ??? ELBOW SURGERY Left 2 left elbow ??? WRIST SURGERY Left 2 left wrist Social History Substance Use Topics ??? Smoking status: Current Every Day Smoker Packs/day: 0.50 Years: 40.00 Types: Cigarettes ??? Smokeless tobacco: Never Used ??? Alcohol use No History Drug Use No Allergies Allergen Reactions ??? Aspirin Other reaction(s): GI Upset ??? Celecoxib Other reaction(s): GI Upset ??? Fluoxetine ??? Fluoxetine Hcl CIS - BAD RASH ??? Metformin Diarrhea and Nausea And Vomiting ??? Rofecoxib Other reaction(s): bleeding Medications: MAR and/or home medications have been reviewed. Physical Exam: There were no vitals filed for this visit. There is no height or weight on file to calculate BMI. Airway Assessment: Mallampati: II TM distance: >3 FB Neck ROM: full Cardiovascular Assessment: Pulmonary Assessment: Dental Assessment: Misc Assessment: IV access: Peripheral line Anesthesia Plan: ASA 3 general, with a(n) intravenous induction 56yo female presenting for L submandibular gland excision for hx of sialadenitis. PMHx: -DM2 poorly controlled - last HbA1c 7.9 - glucose 149 this morning. Took full dose (50u) lantus lastnight -COPD and current tobacco abuse - 75pk yr smoking hx, 1ppd -GERD controlled on PPI -HTN (lisinopril) -ex-EtOH abuse - none in several years NPO appropriate Plan: GETA IC reviewed and signed Region - Other Informed Consent: Anesthetic plan and risks discussed with patient. Plan discussed with NURSERY LABORER. PAT Staff Note documented in this encounter Plan of Treatment Upcoming Encounters Date Type Specialty Care Team Description 08/28/2022 Laboratory Appointment Lab 08/28/2022 Appointment Radiology Yuliana Hernandez MD [facility] [address], [place] [address] (Wo rk) 08/28/2022 Office Visit Gastroenterology Andrew Smith PA [facility] [address], [place] [address] (Wo rk) documented as of this encounter Visit Diagnoses Not on filedocumented in this encounter Administered Medications Inactive Administered Medications - up to 3 most recent administrations Medication Order MAR Action Action Date Dose Rate Site albuterol 90 mcg/actuation Given 02/23/2017 8:39 AM EDT 2 puffs inhaler PRN, Starting on Sun02/23/17 at 0839, Until Sun02/23/17 at 1042, Wheezing, Anesthesia Intra-op, Routine ampicillin-sulbactam (UNASYN) 3 g vial attach New Bag 9:02 AM EDT 3 g to sodium chloride 0.9% 100 mL Mini-Bag Plus 3 g, Intravenous, EVERY 6 HOURS SCHEDULED, First dose on Sun02/23/17 at 1200, Until Discontinued, Administer over 30 Minutes, Warning Vesicant/Irritant Medication , Indication for (Active or Suspected): Prophylaxis dexmedetomidine (PRECEDEX) injection Given 02/23/2017 9:55 AM EDT 8 mcg PRN, Starting on Sun02/23/17 at 0952, Until Sun02/23/17 at 1042, Anesthesia Intra-op, Routine Given 02/23/2017 9:52 AM EDT 12 mcg ePHEDrine 5 mg/mL multi-dose injection Given 02/23/2017 9:26 AM EDT 10 mg PRN, Starting on Sun02/23/17 at 0906, Until Sun02/23/17 at 1042, Anesthesia Intra-op, Routine Given 02/23/2017 9:17 AM EDT 10 mg Given 02/23/2017 9:06 AM EDT 20 mg fentaNYL 50 mcg/mL multi-dose injection Given 02/23/2017 8:40 AM EDT 100 mcg PRN, Starting on Sun02/23/17 at 0840, Until Sun02/23/17 at 1042, Pain, Anesthesia Intra-op, Routine lactated Ringers infusion 1,000 mL New Bag 02/23/2017 8:37 AM EDT 1,000 mL, at 100 mL/hr, Intravenous, CONTINUOUS, Starting on Sun02/23/17 at 0730, Until Sun02/23/17 at 1145, Day of Surgery (Day of Procedure) New Bag 02/23/2017 7:29 AM EDT 1,000 mLs 100 mL/hr lidocaine (XYLOCAINE) 4 % external solut ion Given 02/23/2017 8:48 AM EDT 4 mLs PRN, Starting on Sun02/23/17 at 0848, Until Sun02/23/17 at 1042, Anesthesia Intra-op midazolam (PF) (VERSED) 1 mg/mL multi-dose Given 02/23/2017 8:37 AM EDT 2 mg injection PRN, Starting on Sun02/23/17 at 0837, Until Sun02/23/17 at 1042, Sleep, Anesthesia Intra-op, Routine ondansetron (ZOFRAN) injection Given 02/23/2017 8:37 AM EDT 4 mg PRN, Starting on Sun02/23/17 at 0837, Until Sun02/23/17 at 1042, Nausea, Anesthesia Intra-op, Routine PHENYLephrine Rate/Dose Change 02/23/2017 10:18 30 mcg/min 22.5 mL/hr (SARINA-SYNEPHRINE) 20 mg in AM EDT sodium chloride 250 mL (standard ADULT & Martell greater than 20kg) infusion CONTINUOUS PRN, Starting on Sun02/23/17 at 0853, Until Sun02/23/17 at 1042, Anesthesia Intra-op, Routine Restarted 02/23/2017 10:06 AM EDT 20 mcg/min 15 mL/hr Rate/Dose Change 02/23/2017 9:48 AM EDT 15 mcg/min 11.3 mL/hr PHENYLephrine HCl in NS (PF) Given 02/23/2017 9:23 AM EDT 160 mc g (SARINA-SYNEPHRINE) 0.8 mg/10 mL (80 mcg/mL) multi-dose injection Syrg PRN, Starting on Sun02/23/17 at 0843, Until Sun02/23/17 at 1042, Anesthesia Intra-op, Routine Given 02/23/2017 8:53 AM EDT 160 mcg Given 02/23/2017 8:43 AM EDT 80 mcg propofol (DIPRIVAN) 10 mg/mL bolus injection Given 7 8:48 AM EDT 30 mg (Anesthesia) PRN, Starting on Sun02/23/17 at 0843, Until Sun02/23/17 at 1042, Anesthesia Intra-op Given 02/23/2017 8:46 AM EDT 30 mg Given 02/23/2017 8:43 AM EDT 130 mg propofol (DIPRIVAN) Rate/Dose Change 02/23/2017 10:22 50 mcg/kg/min 2 8 mL/hr infusion AM EDT CONTINUOUS PRN, Starting on Sun02/23/17 at 1004, Until Sun02/23/17 at 1042, Anesthesia Intra-op, Routine Rate/Dose Change 02/23/2017 10:12 AM EDT 75 mcg/kg/min 42 mL/hr Rate/Dose Change 02/23/2017 10:05 AM EDT 125 mcg/kg/min 70.1 mL/hr succinylcholine (ANECTINE) injection Given 02/23/2017 8:44 AM EDT 140 mg PRN, Starting on Sun02/23/17 at 0844, Until Sun02/23/17 at 1042, Anesthesia Intra-op, Routine documented in this encounter Care Teams Engineering Programmer Relationship Specialty Start Date End Date Hai Gallegos MD PCP - General 05/31/10 10/09/[address] [place] [address] documented as of this encounter
--- OUTSIDE RECORDS SUMMARY | 2022-04-28 01:10 | XMS_ITS | Encounter Summary ---
:1960 Author Organization [facility] Address [facility] [place] [address] Care Team Providers Name Role Phone Hai Lopez DO Primary Care Provider Reason for Visit Auth/Cert Specialty Diagnoses / Procedures Referred By Contact Refer red To Contact Diagnoses abd pain, diarrhea, nausea Procedures PRO UPPER GI ENDOSCOPY, DIAGNOSTIC PRO COLONOSCOPY, DIAGNOSTIC EGD, UPPER GI ENDOSCOPY COLONOSCOPY, DIAGNOSTIC Referral ID Status Reason Start Date Expiration Date Visits Requ ested Visits Authorized [id number] 1 1 Encounter Details Date Type Department Care Team Description 10/10/2017 Surgery Gastroenterology at [facility] [place] Orellana EGD WITH BIOPSY ([facility] Lisa Jeter MD 2.49) [place] [address] [facility] [phone] DR GASTROENTEROLOGY [place], [place] [address] Social History Tobacco Use Types Packs/Day Years Used Date Current Every Day Smoker Cigarettes 0.5 40 Smokeless Tobacco: Never Used Tobacco Cessation: Ready to Quit: Yes Comments: pt. has obtained chantix Alcohol Use Standard Drinks/Week Comments No 0 (1 standard drink = 0.6 oz pure alcoho l) Sex Assigned at Date Recorded Not on file documented as of this encounter Last Filed Vital Signs Vital Sign Reading Time Taken Comments Blood Pressure 127/76 10/10/2017 5:00 PM EDT Pulse 85 10/10/2017 4:35 PM EDT Temperature 36.8 ??C (98.2 ??F) 10/10/2017 3:10 PM EDT Respiratory Rate 18 10/10/2017 4:35 PM EDT Oxygen Saturation 93% 10/10/2017 5:00 PM EDT Inhaled Oxygen Concentration - - Weight - - Height - - Body Mass Index - - documented in this encounter Discharge Instructions Discharge InstructionsAlecia Cleaning RN - 10/10/2017 4:44 PM EDT UPPER GI ENDOSCOPY WHAT TO EXPECT AFTER THE PROCEDURE Medications You may have a mild sore throat. Ice chips, popsicles, over the counter throat lozenges or spray may help numb your throat. This procedure should not cause a fever. Call your healthcare provider or seek immediate medical attention if: You have trouble swallowing. You have belly pain. Your stools are black or tarlike or have streaks of blood. You are sick to your stomach or cannot keep fluids down. Watch closely for changes in your health, and be sure to contact your doctor IF Your throat still hurts after a day or two You do not get better as expected. Colonoscopy and polyp removal What to expect after the procedure You may feel a little more gassy or bloated than usual, this is normal. You should expect the return of normal bowel function in the next 2 to 3 days. Because some polyps were removed, you may see a little blood with the next few bowel movements, this should be a small amount ( less than a few tablespoons) and will resolve on it's own. ACTIVITY Because of the sedation that you received Your judgement and reaction time are effected ?? Go home and rest for the remainder for the day. You may resume your normal activities tomorrow ?? Change from one position to the next slowly because you may lose your balance unexpectedly. ?? Be careful on stairs, as you may be unsteady. FOR THE NEXT 24 HRS ?? DO NOT DRIVE OR OPERATE MACHINERY ?? DO NOT DRINK ALCOHOLIC BEVERAGES ?? DO NOT SIGN LEGAL DOCUMENTS ?? If you are a smoker: DO NOT SMOKE WHILE YOU ARE ALONE Diet ?? Start by eating small portions of foods that ordinarily will not upset your stomach, avoid gas producing foods for the next few days. ?? Be gentle with what you choose to start with ?? A soft diet may be helpful for the next 3 days as this may help to keep your stools soft. ?? Drink plenty of fluids ( unless your doctor has told you not to). Medicines Avoid medicines that influence the way your blood clots for the next week. These would include anti-inflammatory medicine, such as ibuprofen( Advil, Motrin) and naproxen ( Aleve). If you need something for discomfort, Tylenol (Acetaminophen) is safe if used as directed. Your Doctor will tell you whento restart your prescribed blood thinners The IV site-- slight tenderness, or redness is normal, you can use warm compresses if you get concerned. If the tenderness +/or redness increases or foul drainage and a red streak occurs, please contact your PCP immediately. When should you call for help? Call 911 anytime you think you may need emergency care. For example If you pass out (loss of consciousness) If you pass maroon or bloody stools If you have severe belly pain Call your healthcare provider or seek immediate medical care if: Your stools are black or tar like Your stools have streaks of blood that is more pronounced with each BM You have belly pain, or your belly is swollen and firm You vomit You have a fever You are very dizzy Watch closely for changes in your health, and be sure to contact your doctor if you have any problems. Your Doctor will let you know when you will need your next colonoscopy. The results of your test andyour risk for colorectal cancer will help your doctor decide how often you need to be checked. Sunday-Sunday Same Day Endo [phone]-8p Otherwise contact [phone] and ask to speak to the baseball inspector front end web developer Follow up care is a pan part of your treatment and safety. Be sure to make and go to all appointments, and call your doctor if you are having problems. Discharge instructions reviewed with patient who expresses understanding documented in this encounter Medications at Time [...] insulin//taking 2 to 20 units as needed cyclobenzaprine Take 5 mg by mouth as 0 10/27/19 (FLEXERIL) 5 mg Tablet needed. 18 atorvastatin (LIPITOR) 10 Take 10 mg by mouth 0 09/28/19 mg TabletIndications: daily. Indications: 19 hypercholesterolemia Hypercholesterolemia documented as of this encounter H&P Notes Yuliana Hernandez MD - 10/10/2017 3:48 PM EDT Patient Name: Mary Beth Holman Patient Age: 57 y.o. Birthdate: 1960 Admit date: 10/10/2017 Attending Physician: Yuliana Hernandez MD Gastroenterology and Hepatology Pre-Procedure History and Physical Exam Procedure: EGD and colonoscopy Indication: Diarrhea Patient Active Problem List Diagnosis Code ??? Gastro-esophageal reflux K21.9 ??? Diabetes mellitus E11.9 ??? HLD (hyperlipidemia) E78.5 ??? Hypertension I10 ??? Chronic low back pain M54.5, G89.29 EXAM: HEENT: Airway examined, oropharynx clear Mallampati Score: II (soft palate, uvula, fauces visible) LUNGS: Clear to auscultation HEART: Regular rate and rhythm, normal S1, S2 ABDOMEN: Normal bowel sounds, soft, non tender, non distended, A/P Proceed with the planned endoscopic procedure. ASA 3 - Patient with moderate systemic disease with functional limitations Sedation Plan: moderate (conscious sedation) Risks and benefits of the procedure explained to the patient. Consent signed. documented in this encounter Plan of Treatment Upcoming Encounters Date Type Specialty Care Team Description 08/28/2022 Laboratory Appointment Lab 08/28/2022 Appointment Radiology Yuliana Hernandez MD [facility] [address] [place] [address] (Wo rk) 08/28/2022 Office Visit Gastroenterology Andrew Smith PA [facility] [address] [place] [address] (Wo rk) documented as of this encounter Procedures Procedure Name Priority Date/Time Associated Comments Diagnosis SPECIMEN TO PATHOLOGY Routine 10/10/2017 4:32 PM Results for this EDT procedure are i n the results section. SURGICAL PATHOLOGY Routine 10/10/2017 4:19 PM Res ults for this REPORT EDT procedure are i n the results section. SPECIMEN TO PATHOLOGY Routine 10/10/2017 4:19 PM Results for this EDT procedure are i n the results section. SPECIMEN TO PATHOLOGY Routine 10/10/2017 4:19 PM Results for this EDT procedure are i n the results section. SPECIMEN TO PATHOLOGY Routine 10/10/2017 4:19 PM Results for this EDT procedure are i n the results section. COLONOSCOPY Routine 10/10/2017 3:58 PM Results f or this EDT procedure are i n the results section. UPPER GI ENDOSCOPY Routine 10/10/2017 3:57 PM Res ults for this EDT procedure are i n the results section. COLONOSCOPY, 10/10/2017 3:56 PM abd pain, diarrhea, POLYPECTOMY, REMOVAL EDT nausea LESION BY SNARE (WRVU 4.67) EGD WITH BIOPSY ([facility]U 10/10/2017 3:56 PM abd pain, brendan rrhea, 2.49) EDT nausea documented in this encounter Results Specimen to Pathology (10/10/2017 4:32 PM EDT) Specimen Anatomical Collection Method Collection Time Receive d Time (Source) Location / / Volume Laterality AP Specimen 10/10/2017 4:32 PM 201 8 4:32 EDT PM EDT Narrative [facility] - 10/10/2017 4:32 PM EDT Specimen requisition ordered. ??Separate Pathology report to follow Richmond Orellana MD PATHOLOGY/CYTOLOGY ORDERABLE S Performing Organization Address City/State/ZIP [place] [address] Surgical Pathology Report (10/10/2017 4:19 PM EDT) Component Value Ref Test Analysis Performed At [facility] gist Range Method Time Signature Surgical [id number] ? Location: 4T; EA07; A [facility] Report The signing pathologist has (i) examined the relevant preparation(s) for the [facility] specimen(s) and (ii) rendered or confirmed the diagnosis(es) . HOSPITAL LABORATORY . ?Surgic al Pathology DIAGNOSIS A - Stomach, ??biopsy: Gastric body-fundic mucosa ? ? with intestinal metaplasia ??and patchy increase in chronic inflammatory cells. See discussion #1. B - Duodenum, ??biopsy: Duodenal mucosa within normal limits. C - Random ??biopsy: Colonic mucosa with pathcy reactive changes and focal, trace active colitis. D - Rectum, ??polypectomy: Hyperplastic polyp. CR-PX Electronically signed by: ??Conrad REBOLLAR PhD, Gunner Morrell Verified: ??10/17/2017 ?Pathologist Performed at: ??-[facility] Dept. of Pathology, [place], [place] DISCUSSION 1. ??There is no histological evidence of H.pylori. 2. ??The findings are non-sp ecific. The differential diagnosis includes infection, drug, mechanical, diverticu losis, prep effect and incipient inflammatory bowel disease (IBD). Clinical correlation is recommended. CLINICAL INFORMATION Specimen Submitted: A - Stomach bx B - Duodenal bx C - Random bx r/o colitis D - Polyp - rectum Clinical History: Dyspepsia, diarrhea, screening Clinical Diagnosis: Same SPECIMEN PROCESSING A - Labeled/Fixative: Stomach biopsy, formalin. Quantity/Size: Three, 0.2-0.4 cm. Tissue Description: ??Soft, leonardo-pink tissue ??. Sections/Processing: (T1) B - Labeled/Fixative: Duodenal biopsy, formalin. Quantity/Size: Three, averaging 0.3 cm. Tissue Description: ??Soft, leonardo-pink tissue ??. . SPECIMEN PROCESSING Sections/Processing: (T1) C - Labeled/Fixative: Random biopsy, formalin. Quantity/Size: Multiple, 0.1-0.3 cm. Tissue Description: ??Soft, yellow-leonardo tissue ??. Sections/Processing: (T2) D - Labeled/Fixative: Polyp-rectum, formalin. Quantity/Size: Single, 0.5 cm. Tissue Description: Polypoid, pink-leonardo tissue. Sections/Processing: (T1) ??ejr Specimen (Source) Anatomical Collection Method Collection Time Re ceived Time Location / / Volume Laterality 10/10/2017 4:19 PM EDT Richmond Orellana MD PATHOLOGY/CYTOLOGY ORDERABLE S Performing Organization Address City/[facility]/ZIP [facility] [place] [address] Specimen to Pathology (10/10/2017 4:19 PM EDT) Specimen Anatomical Collection Method Collection Time Receive d Time (Source) Location / / Volume Laterality AP Specimen 10/10/2017 4:19 PM 8 4:19 EDT PM EDT Narrative [facility] - 10/10/2017 4:19 PM EDT Specimen requisition ordered. ??Separate Pathology report to follow Richmond Orellana MD PATHOLOGY/CYTOLOGY ORDERABLE S Performing Organization Address City/[facility] [place] [address] Specimen to Pathology (10/10/2017 4:19 PM EDT) Specimen Anatomical Collection Method Collection Time Receive d Time (Source) Location / / Volume Laterality AP Specimen 10/10/2017 4:19 PM 8 4:19 EDT PM EDT Narrative [facility] - 10/10/2017 4:19 PM EDT Specimen requisition ordered. ??Separate Pathology report to follow Richmond Orellana MD PATHOLOGY/CYTOLOGY ORDERABLE S Performing Organization Address [place]/[facility] [place] [address] Specimen to Pathology (10/10/2017 4:19 PM EDT) Specimen Anatomical Collection Method Collection Time Receive d Time (Source) Location / / Volume Laterality AP Specimen 10/10/2017 4:19 PM 8 4:19 EDT PM EDT [facility] - 10/10/2017 4:19 PM EDT Specimen requisition ordered. ??Separate Pathology report to follow Richmond Orellana MD PATHOLOGY/CYTOLOGY ORDERABLE S Performing Organization Address [place]/[facility] [place] [address] COLONOSCOPY (10/10/2017 3:58 PM EDT) [facility] Method Time Signature COLONOSCOPY [facility] Endoscopy Procedure Date: 10/10/2017 3:58 PM ? Patient Name: Mary Beth Holman ? Date of : 1960 ? Age: 57 ? Order #: [id number] ? Instrument Name: [id number] ? Procedure: ? Colonoscopy Indications: ? Chronic diarrhea Providers: ? Richmond Orellana MD, Victor Manuel Terry ? , SHAKIRA, Taylor Sood MD: ?Hai Gallegos MD Medicines: ? Midazolam 1 mg IV, Fentanyl 100 ? micrograms IV Complications: ? No immediate complications. Procedure: ? Pre-Anesthesia Assessment: ? - Prior to the procedure, a H istory ? and Physical was performed, a nd ? patient medications and aller gies ? were reviewed. The patient is ? competent. The risks and bene fits of ? the procedure and the sedatio n ? options and risks were discus sed with ? the patient. All questions we re ? answered and informed consent was ? obtained. Patient identificat ion and ? proposed procedure were verif ied by ? the physician in the pre-proc edure ? area. Mental Status Examinati on: ? alert and oriented. Airway ? Examination: normal oropharyn geal ? airway and neck mobility. Res piratory ? Examination: clear to auscult ation. ? CV Examination: normal. Proph ylactic ? Antibiotics: The patient does not ? require prophylactic antibiot ics. ? Prior Anticoagulants: The pat ient has ? taken no previous anticoagula nt or ? antiplatelet agents. ASA Grad e ? Assessment: II - A patient wi th mild ? systemic disease. After revie wing the ? risks and benefits, the patie nt was ? deemed in satisfactory condit ion to ? undergo the procedure. The an esthesia ? plan was to use moderate joel tion / ? analgesia (conscious sedation ). ? Immediately prior to administ ration ? of medications, the patient w as ? re-assessed for adequacy to r eceive ? sedatives. The heart rate, ? respiratory rate, oxygen satu rations, ? blood pressure, adequacy of p ulmonary ? ventilation, and response to care ? were monitored throughout the ? procedure. The physical statu s of the ? patient was re-assessed after the ? procedure. ? The procedure, indications, b enefits, ? risks and alternatives were e xplained ? to the patient. Specifically ? discussed were potential ? complications including, but not ? limited to, bleeding, perfora tion, ? infection, missing a cancer, and ? adverse medication reactions. The ? patient was placed in the lef t ? lateral decubitus position, a nd a ? digital rectal exam was perfo rmed. ? The Colonoscope was inserted in the ? anus and under direct visuali zation, ? advanced to the terminal ileu m. ? Careful inspection was made a s the ? colonoscope was withdrawn. Th e ? colonoscopy was performed wit bernardout ? difficulty. The patient anthony ated the ? procedure well. The quality o f the ? bowel preparation was excelle nt. ? Findings: ? The perianal and digital rectal examinations were ? normal. ? A 5 mm polyp was found in the recto-sigmoid colon. ? The polyp was sessile. The polyp was removed with a ? cold snare. Resection and retrieval were complete. ? Multiple small-mouthed diverticula were found in the ? sigmoid colon and descending colon. ? The terminal ileum appeared normal. ? Withdrawal time 7:30 ? Moderate Sedation: ? I was present during the intraservice time as ? documented by the sedation RN. Impression: ?- One 5 mm polyp at the recto-sigm oid ? colon, removed with a cold sn are. ? Resected and retrieved. ? - Diverticulosis in the sigmo id colon ? and in the descending colon. ? - The examined portion of the ileum ? was normal. Recommendation: ?- Discharge patient to home. ? Attending Participation: ? I personally performed the entire procedure. ? Richmond Orellana MD 10/10/2017 4:29:55 PM This report has been signed electronically. Number of Addenda: 0 Note Initiated On: 10/10/2017 3:58 PM Specimen (Source) Anatomical Collection Method Collection Time Re ceived Time Location / / Volume Laterality 10/10/2017 3:58 PM EDT Hai Gallegos MD GENERAL SURGICAL ORDERABLES Performing Organization Address City/State/ZIP [facility] Phon e Number [facility] UPPER GI ENDOSCOPY (10/10/2017 3:57 PM EDT) Component Value Ref Test Analysis Performed At [facility] Method Time Signature UPPER GI [facility] ENDOSCOPY Endoscopy Procedure Date: 10/10/2017 3:57 PM ? Patient Name: Mary Beth Holman ? Date of : 1960 ? Age: 57 ? Order #: [id number] ? Instrument Name: [id number] ? Procedure: ? Upper GI endoscopy Indications: ? Dyspepsia Providers: ? Richmond Orellana MD, Victor Manuel Terry ? SHAKIRA Terrell, Taylor Sood MD: ?Hai Gallegos MD Medicines: ? Midazolam 5 mg IV, Fentanyl 150 ? micrograms IV Complications: ? No immediate complications. Procedure: ? Pre-Anesthesia Assessment: ? - Prior to the procedure, a H istory ? and Physical was performed, a nd ? patient medications and aller gies ? were reviewed. The patient is ? competent. The risks and bene fits of ? the procedure and the sedatio n ? options and risks were discus sed with ? the patient. All questions we re ? answered and informed consent was ? obtained. Patient identificat ion and ? proposed procedure were verif ied by ? the physician in the pre-proc edure ? area. Mental Status Examinati on: ? alert and oriented. Airway ? Examination: normal oropharyn geal ? airway and neck mobility. Res piratory ? Examination: clear to auscult ation. ? CV Examination: normal. Proph ylactic ? Antibiotics: The patient does not ? require prophylactic antibiot ics. ? Prior Anticoagulants: The pat ient has ? taken no previous anticoagula nt or ? antiplatelet agents. ASA Grad e ? Assessment: II - A patient wi th mild ? systemic disease. After revie wing the ? risks and benefits, the patie nt was ? deemed in satisfactory condit ion to ? undergo the procedure. The an esthesia ? plan was to use moderate joel tion / ? analgesia (conscious sedation ). ? Immediately prior to administ ration ? of medications, the patient w as ? re-assessed for adequacy to r eceive ? sedatives. The heart rate, ? respiratory rate, oxygen satu rations, ? blood pressure, adequacy of p ulmonary ? ventilation, and response to care ? were monitored throughout the ? procedure. The physical statu s of the ? patient was re-assessed after the ? procedure. ? The procedure, indications, b enefits, ? risks and alternatives were e xplained ? to the patient. Specifically ? discussed were potential ? complications including, but not ? limited to, bleeding, perfora tion, ? infection, missing a cancer, and ? adverse medication reactions. The ? Endoscope was introduced thro [facility] the ? mouth, and [facility] ? of duodenum. The patient tole rated ? the procedure well. The upper GI ? endoscopy was accomplished wi [facility] ? difficulty. The patient anthony ated the ? procedure well. ? Findings: ? The esophagus was normal. The GE junction was at 39 ? cm. ? The stomach was normal. Multiple biopsies were taken ? of the antrum for histology. ? The examined duodenum was normal. Multiple biopsies ? were taken of the duodenum for histology. ? Moderate Sedation: ? I was present during the intraservice time as ? documented by the sedation RN. Impression: ?- Normal esophagus. ? - Normal stomach. ? - Normal examined duodenum. Recommendation: ?- Await pathology results ? - Proceed with colonoscopy no w ? Attending Participation: ? I personally performed the entire procedure. ? Richmond Orellana MD 10/10/2017 4:12:46 PM This report has been signed electronically. Number of Addenda: 0 Note Initiated On: 10/10/2017 3:57 PM Specimen (Source) Anatomical Collection Method Collection Time Re ceived Time Location / / Volume Laterality 10/10/2017 3:57 PM EDT Hai Gallegos MD GENERAL SURGICAL ORDERABLES Performing Organization Address City/State/ZIP Code Phon e Number [facility] documented in this encounter Visit Diagnoses Not on filedocumented in this encounter Administered Medications Inactive Administered Medications - up to 3 most recent administrations Medication Order MAR Action Action Date Dose Rate Site fentaNYL 50 mcg/mL multi-dose Given 10/10/2017 4:20 PM EDT 50 mc g injection ONCE PRN, Starting on Sun10/10/17 at 1558, Until Sun10/10/17 at 2015, Intra-Operative (Intra-Procedure), Routine Given 10/10/2017 4:15 PM EDT 50 mcg Given 10/10/2017 4:06 PM EDT 25 mcg midazolam (PF) (VERSED) 1 mg/mL multi-dose Given 10/10/2017 4:15 PM EDT 1 mg injection ONCE PRN, Starting on Sun10/10/17 at 1558, Until Sun10/10/17 at 2016, Intra-Operative (Intra-Procedure), Routine Given 10/10/2017 4:06 PM EDT 1 mg Given 10/10/2017 4:03 PM EDT 1 mg documented in this encounter Active and Recently Administered Medications Times are shown in EDT. PRN Medication Order 10/08/2017 10/09/2017 10/10/2017 fentaNYL 50 mcg/mL multi-dose injection (CANCELED) 1553 (Given - Provider: Victor Manuel Terrell RN)1558 (Given - Provider: Victor Manuel Terrell RN)1603 (Given - Provider: Victor Manuel Terrell RN)1606 (Given - Provider: Victor Manuel Terrell RN)1615 (Given - Provider: Victor Manuel Terrell RN)1620 (Given - Provider: Victor Manuel Terrell RN) ONCE PRN, Starting Sun10/10/17 at 1558, U ntil 10/10/17 at 2016, Intra-Operative (Intra-Procedure), Routine midazolam (PF) (VERSED) 1 mg/mL multi-dose injection (CANCELED) 1554 (Given - Provider: Victor Manuel Terrell, RN)1558 (Given - Provider: Victor Manuel Terrell, RN)1603 (Given - Provider: Victor Manuel Terrell, RN)1606 (Given - Provider: Victor Manuel Terrell, RN)1615 (Given - Provider: Victor Manuel Terrell, RN) ONCE PRN, Starting Sun10/10/17 at 1558, U ntil 10/10/17 at 2016, Intra-Operative (Intra-Procedure), Routine documented in this encounter Care Teams Potato Chip Sorter Relationship Specialty Start Date End Date Hai Lopez DO PCP - General Family Medicine 10/10/17 [address] [place] [address] documented as of this encounter
--- OUTSIDE RECORDS SUMMARY | 2022-04-28 01:10 | XMS_ITS | Encounter Summary ---
:1960 Author Organization [facility] [place] [address] Care Team Providers Name Role Phone Hai Lopez DO Primary Care Provider Reason for Visit Diagnostic Test (Routine) - Closed Specialty Diagnoses / Procedures Referred By Contact Refer red To Contact Radiology Diagnoses Epigastric abdominal pain Yuliana Hernandez MD [facility] Rad Nuclear Med Procedures NM [place] [address] [place] [address] Fax: Referral ID Status Reason Start Date Expiration Date Visits V isits Requested Authorized [id number] Closed Specialty 04/01/2018 04/01/2019 5 5 Service Requested Encounter Details Date Type Department Care Team Description 05/15/2018 Hospital Encounter Nuclear Medicine at [place] [address] [place] [address] [phone] Social History Tobacco Use Types Packs/Day Years [...] Lab 08/28/2022 Appointment Radiology Yuliana Hernandez MD [facility] [address] [place] [address] (Delmar courtney) 08/28/2022 Office Visit Gastroenterology Andrew Smith PA [facility] [address] [place] [address] ([place] courtney) documented as of this encounter Procedures Procedure Name Priority Date/Time Associated Diagnosis Comme [facility] GASTRIC EMPTYING Routine 05/15/2018 12:46 PM [...] IMPRESSION Normal gastric emptying Yuliana Hernandez MD [facility] ORDERABLES documented in this encounter Visit Diagnoses Not on filedocumented in this encounter Care Teams Mobile Home Technician Relationship Specialty Start Date End Date Hai Lopez DO PCP - General Family Medicine 10/10/[address] [place] [address] documented as of this encounter
--- OUTSIDE RECORDS SUMMARY | 2022-04-28 01:10 | XMS_ITS | Encounter Summary ---
:1960 Author Organization [facility] [place] [address] Care Team Providers Name Role Phone Hai Gallegos MD Primary Care Provider [phone] Reason for Visit Reason Comments Chronic Back Pain Encounter Details Date Type Department Care Team Description 08/04/2015 Office Visit Functional Zoroastrianism Cande Dent, Chronic back pain; Program at [facility] Mechanical low back pain [address] [place] [address] Social History Tobacco Use Types Packs/Day Years Used Date Current Every Day Smoker Cigarettes 0.5 Smokeless Tobacco: Never Used Sex Assigned at Date Recorded Not on file documented as of this encounter Progress Notes Cande Wilson, BRICK MASON - 08/04/2015 10:43 AM EST [facility] Follow-up Gym Visit Subjective: Mary Beth reports she has lost 15# since beginning of the program and is feeling great . She has established a routine at home including the [facility] workout DVD, a friend's exercise equipment andexercise ball and has a group of friends that are exercising with her. Objective: Treatment Received: [facility] gym Date 08/04/15 Treadmill 2.0 mph/4% incline x 20' (prev. 15') Stretching: FIS, EIS, Hamstrings Kxylr-kk-atrlh st. leg lift 22.5# Qwztg-cw-fcjvnlnc lift 17.5# Squat lift 30# x 5 (prev. only able to lift x 2) Patient Education/Home Exercise Program: Reviewed Mary Beth's home exercise program. No barriers at thistime to implementing home exercise plan. Assessment: Mary Beth has continued to make gains since the end of the program in strength and enduranceand demonstrates good understanding of her home exercise program and the importance of continuing stretching, strengthening and lifting to maintain/increase functional capacities. Goals: Maintain/increase functional capacities. Plan: Mary Beth will meet with Juan Carlos Foley PT, for the FRP one month follow-up in approximately one month. Mary Beth was encouraged to call with any questions or concerns regarding today's visit or the homeexercise program. Length of visit: A total of 45 minutes was spent educating and treating Mary Beth and reviewing her homeexercise program. Treatment and note were completed by Cande Wilson PTA. documented in this encounter Plan of Treatment Upcoming Encounters Date Type Specialty Care Team Description 08/28/2022 Laboratory Appointment Lab 08/28/2022 Appointment Radiology Yuliana Hernandez MD [facility] [address] [place] [address] (Wo rk) 08/28/2022 Office Visit Gastroenterology Andrew Smith PA [facility] [address] [place] [address] (Wo rk) documented as of this encounter Visit Diagnoses Diagnosis Chronic back pain Backache, unspecified Mechanical low back pain Lumbago documented in this encounter Care Teams Golf Shoe Spike Assembler Relationship Specialty Start Date End Date Hai Gallegos MD PCP - General 05/31/10 10/09/17 4 [place] [address] documented as of this encounter
--- OUTSIDE RECORDS SUMMARY | 2022-04-28 01:10 | XMS_ITS | Encounter Summary ---
:1960 Author Organization [facility] [place] [address] Care Team Providers Name Role Phone Hai Gallegos MD Primary Care Provider [phone] Encounter Details Date Type Department Care Team Description 01/15/2017 Telephone [facility] [place] [address] [facility] [phone] [place]Y [place] [address] (Wo rk) Social History Tobacco Use Types Packs/Day Years Used Date Current Every Day Smoker Cigarettes 0.5 40 Smokeless Tobacco: Never Used Alcohol Use Standard Drinks/Week Comments No 0 (1 standard drink = 0.6 oz pure alcoho l) Sex Assigned at Date Recorded Not on file documented as of this encounter Miscellaneous Notes Telephone Encounter - Natasha Pineda T - 01/17/2017 7:38 AM EDT Images from the original note were not included. left message requesting Ms. Holman to return call to change surgery arrangements due to Dr. Butler will not be available as planned. From: Salty Butler Sent: Sunday, January 15, 2017 4:09 PM To: Ariel Roberson < >; Natasha Pineda <[email or web address]> Subject: 02/02 OR Unlike my other OR days, I actually want this to be a short day as I am leaving by around 1 PM. Thatsaid: Estephanie Lazar Female, 59 y.o., 01/18/1957 Sorry, when I booked this patient, I wanted to wait about 3-4 weeks. Can you reschedule for the week of February. Thanks RiverMary Beth Female, 56 y.o., 1960 Can we move her to 01/23 Thanks and sorry for the inconvenience. Salty Butler MD FACS police radio dispatcher - Otolaryngology Chief, Division of Otolaryngology - Head & Neck Surgery [address] [address] (o)/[phone] (f) [facility] / [email or web address] Telephone Encounter - Natasha Pineda - 01/15/2017 10:21 AM EDT Mr. Holman returned call leaving message explaining she would not be able do have surgery tomorrow due to work coverage. Telephone Encounter - Natasha Pineda - 01/15/2017 9:54 AM EDT spoke with Mary Beth offering for her to have surgery sooner; .01/16/17 tomorrow. She is checking with her boss, and will return a call letting me know. documented in this encounter Plan of Treatment Upcoming Encounters Date Type Specialty Care Team Description 08/28/2022 Laboratory Appointment Lab 08/28/2022 Appointment Radiology Yuliana Hernandez MD [facility] [address] [place] [address] (Wo rk) 08/28/2022 Office Visit Gastroenterology Andrew Smith PA [facility] [address] [place] [address] (Wo rk) documented as of this encounter Visit Diagnoses Not on filedocumented in this encounter Care Teams Stock Grader Relationship Specialty Start Date End Date Hai Gallegos MD PCP - General 05/31/10 10/09/[address] [place] [place] [address] documented as of this encounter
--- OUTSIDE RECORDS SUMMARY | 2022-04-28 01:10 | XMS_ITS | Encounter Summary ---
:1960 Author Organization [facility] [place] [address] Care Team Providers Name Role Phone Hai Lopez DO Primary Care Provider Reason for Visit Diagnostic Test (Routine) - Closed Specialty Diagnoses / Procedures Referred By Contact Refer red To Contact Radiology Diagnoses Epigastric abdominal pain Yuliana Hernandez MD [facility] Rad Nuclear Med Procedures [place] [address] [place] [address] Fax: Referral ID Status Reason Start Date Expiration Date Visits V isits Requested Authorized [id number] Closed Specialty 04/01/2018 04/01/2019 5 5 Service Requested Encounter Details Date Type Department Care Team Description 05/15/2018 Hospital Encounter Nuclear Medicine at [place] [address] [place] [address] [phone] Social History Tobacco Use Types Packs/Day Years [...] Lab 08/28/2022 Appointment Radiology Yuliana Hernandez MD [facility] [address] [place] [address] ([place] courtney) 08/28/2022 Office Visit Gastroenterology Andrew Smith PA [facility] [address] [place] [address] ([place] courtney) documented as of this encounter Procedures Procedure Name Priority Date/Time Associated Diagnosis Comme [facility] GASTRIC EMPTYING Routine 05/15/2018 12:46 PM Epigastric [...] IMPRESSION Normal gastric emptying Yuliana Hernandez MD [facility] ORDERABLES documented in this encounter Visit Diagnoses Not on filedocumented in this encounter Care Teams Lockstitch Binder Relationship Specialty Start Date End Date Hai Lopez DO PCP - General Family Medicine 10/10/[address] [place] [address] documented as of this encounter
--- OUTSIDE RECORDS SUMMARY | 2022-04-28 01:10 | XMS_ITS | Encounter Summary ---
:1960 Author Organization [facility] [place] [address] Care Team Providers Name Role Phone Hai Lopez DO Primary Care Provider Reason for Referral Consultation (Routine) - Specialty Diagnoses / Procedures Referred By Contact Refer red To Contact Weight and Wellness Diagnoses Class 1 obesity with serious comorbidity and body mass index (BMI) of 32.0 to 32.9 in adult, unspecified obesity type Perla Hernandez MD [facility] [address] [address] Phone: Fax: Referral ID Status Reason Start Date Expiration Date Visits V isits Requested Authorized [id number] Consult, 08/22/2018 08/22/2019 1 1 Test & Treat Encounter Details Date Type Department Care Team Description 08/22/2018 Office Visit Gastroenterology at [facility] Perla Hernandez, Hepatitis C virus infection without hepatic coma, unspecified chronicity; [facility] Lisa soto MD Class 1 obesity with serious comorbidity and body mass index (BMI) of 32.0 to 32.9 in adult, [place] [address] [facility] [phone] [facility]56 Social History Tobacco Use Types Packs/Day Years [...] Sign Reading Time Taken Comments Blood Pressure 108/66 08/22/2018 10:36 AM EST Pulse 89 08/22/2018 10:36 AM EST Temperature - - Respiratory Rate - - Oxygen Saturation - - Inhaled Oxygen Concentration - - Weight 88.3 kg (194 lb 9.6 oz) 08/22/2018 10:36 AM EST Height 165.1 cm (5' 5) 08/22/2018 10:36 AM EST Body Mass Index 32.38 08/22/2018 10:36 AM EST documented in this encounter Progress Notes Perla Hernandez MD - 08/22/2018 11:00 AM EST Gastroenterology and Hepatology Follow Up Note Patient: Mary Beth Holman : 1960 Provider: Perla Hernandez MD Problem List: #1 F3 liver fibrosis, SVR Hepatitis C #2 BUI - Fibroscan 09/2017: 10.2 kPa - EGD 10/2017: Negative for varices - CT 08/2017: Negative for HCC - U/S 02/2018: negative for HCC Interval History: She had a normal gastric emptying study. Peppermint extract did not help with post-prandial bloating. She is trying to eat smaller, which she does not helps with that post-prandial pain. She is gdtopdy97 pieces of gum per day to stop smoking. She is currently smoking one cigarette per day. Her major trigger to smoke is driving. Current Outpatient Medications Medication Sig Dispense Refill ??? CHANTIX 0.5 mg Tablet take 1 tablet by mouth twice a day 0 ??? promethazine-codeine (PHENERGAN WITH CODEINE) 6.25-10 mg/5 mL Syrup TAKE 5MLS BY MOUTH EVERY 6 HOURS NEEDED 0 ??? empagliflozin (JARDIANCE) 10 mg Tablet Take 10 mg by mouth daily. ??? ONETOUCH ULTRA TEST Strip 0 ??? [...] needed for Wheezing. Use with spacer ??? LANTUS SOLOSTAR U-100 INSULIN pen inject 36 units subcutaneously once daily (MAX DAILY DOSE 50 UNITS) 0 ??? gabapentin (NEURONTIN) 300 mg Capsule 0 ??? UNABLE TO FIND as needed. Med Name: taking humalog insulin//taking 2 to 20 units as needed ??? atorvastatin (LIPITOR) 10 mg Tablet Take 10 mg by mouth daily. Indications: Hypercholesterolemia No current facility-administered medications for this visit. Vitals: 08/22/18 1036 BP: 108/66 Pulse: 89 Weight: 88.3 kg (194 lb 9.6 oz) Height: 165.1 cm (5' 5) Body mass index is 32.38 kg/m??. Results for MARY BETH HOLMAN ( ) as of 08/22/2018 10:37 03/05/2018 00:00 08/22/2018 08:23 WBC 7.45 9.0 Hemoglobin 15.5 15.6 (H) MCV 90.1 91.2 Platelets 164 167 Results for MARY BETH HOLMAN ( ) as of 08/22/2018 10:37 03/05/2018 00:00 08/22/2018 08:23 INR 1.0 1.0 Sodium 140 140 Potassium 3.8 4.8 Creatinine 0.73 0.74 Albumin 4.2 4.6 Total Bilirubin 0.4 0.4 Alk Phos 115 91 AST 19 28 ALT 31 35 (H) Exam: Looks well Assessment and Plan: #1 Steatohepatitis with grade 3 fibrosis #2 Hep C SVR Liver function is stable. Ultrasound was negative 02/2018, repeat from today is pending. We discussedthe importance of diet and exercise leading to weight loss for maintaining liver health. She will follow-up in August 2018 with labs, ultrasound, and clinic visit. Discussed referral to weight and wellness center which she would like to do given her weight gain and increased difficulty treating her diabetes. ?? #3?Diarrhea, improved #4?Abdominal pain Gastric emptying was normal. Recommend stopping gum chewing as the excess xylitol could be contributing to her symptoms. She will continue the peppermint extracts. Follow up visit in 6 months with labs and ultrasound. Perla Hernandez MD Section of Gastroenterology & Hepatology [address] [place], [place] [id number] 30 minutes of this 30 minute visit was spent in discussion. Cc: Hai Lopez DO documented in this encounter Plan of Treatment Upcoming Encounters Date Type Specialty Care Team Description 08/28/2022 Laboratory Appointment Lab 08/28/2022 Appointment Radiology Perla Hernandez MD [facility] [address] [place] [address] (Wo rk) 08/28/2022 Office Visit Gastroenterology Andrew Smith PA [facility] [place], [place] [address] (Wo rk) Scheduled Referrals Name Type Priority Associated Diagnoses Order S chedule Referral to Weight Outpatient Referral Routine Class 1 obesity with Ordered[facility] serious comorbidity and body mass index (BMI) of 32.0 to 32.9 in adult, unspecified obesity type documented as of this encounter Results US [...] 11:16 am) PATIENT INFO: ID #: ? [id number] ?: ??[birth year] (58 yrs) Name: ? MARY BETH HOLMAN ?Visit Date: 02/12/2019 11:06 am PERFORMED BY: Performed By: ? Daren Rolle RDMS Attending: ?Domingo REBOLLAR, Lakisha Douglas Referred By: ?PERLA HERNANDEZ Location: ? [place] SERVICE(S) PROVIDED: ??UABDLIM - Hepatology Protocol - Abdom inal ? [id number] ??Limited Survey Single Organ or Quadra nt - ??[id number] INDICATIONS: ??F3 fibrosis, hep c in SVR, [...] 11:1 6 am) PATIENT INFO: ID #: [id number] : [birth year] (58 y rs) Name: MARY BETH HOLMAN Visit Date: 02/12 11:06 am PERFORMED BY: Performed By: Daren Rolle RDMS Attending: Lakisha Lane MD Referred By: PERLA HERNANDEZ Location: [place] SERVICE(S) PROVIDED: UABDLIM - Hepatology Protocol [place] [id number] Limited Survey Single Organ or Quadrant - [id number] INDICATIONS: F3 fibrosis, hep c in SVR, hcc screenin g COMPARISON: Ultrasound: AB RODRIGUEZ 08/22/18 ------ LIVER: ------ Right Lobe Length: 17.4 [...] Report 02/12 11:16 am Perla Hernandez MD IMG US GEN ORDERABLES Prothrombin Time (02/12/2019 10:30 AM EDT) P athologist Signature PT 10.9 9.4 - 12.5 [facility] LABORATORY INR 1.0 [facility] Comment: An INR <2.0 indicates [...] Organization Address City/State/ZIP Code Phon e Number [place] [phone] (ABNORMAL) Comprehensive metabolic panel (non-fasting) (02/12/2019 10:30 AM EDT) P athologist Signature Glucose Lvl 168 65 - 199 [facility] mg/dL [facility] Comment: Diabetes: >=200 mg/dL plus symp toms BUN 26 (H) 8 - 18 mg/dL [facility] Creatinine 0.84 0.70 - 1.20 mg/dL [facility] Sodium 139 135 - 145 mmol/L [facility] Potassium 4.7 3.5 - 5.0 mmol/L [facility] Comment: Please note: ??Patients with WBC >100,00 0 may have falsely elevated Potassium levels. ??For accurate Potassium quantif ication in these patients send serum separator tube (gold top) for subsequent determinations. ??Contact the Clinical Chemistry Laboratory if there are any qu estions. Chloride 102 98 - 107 mmol/L [facility] CO2 27 22 - 31 mmol/L [facility] Anion Gap 10 5 - 15 mmol/L [facility] Calcium 9.5 8.5 - 10.5 mg/dL [facility] Total Protein 7.7 6.1 - 8.0 gm/dL [facility] Albumin 4.7 3.2 - 5.2 gm/dL [facility] AST 18 0 - 30 unit/L [facility] ALT 16 0 - 30 unit/L [facility] Alk Phos 95 35 - 105 unit/L [facility] Total Bilirubin 0.4 0.2 - 1.3 mg/dL [facility] Estimated GFR 76 >=60 mL/min/1.73 m?? [facility] Comment: The eGFR was calculated using the CKD-EP I equation. As with all creatinine based estimates of kidney function, eGFR values calculated with the CKD-EPI equation are not accurate in patients wi th acute kidney failure, extremes of body mass or the acutely ill. http://[facility]/[employer] eGFR 88 >=60 mL/min/1.73 m?? [facility] Comment: The eGFR was calculated using the CKD-EP I equation. As with all creatinine based estimates of kidney function, eGFR values calculated with the CKD-EPI equation are not accurate in patients wi th acute kidney failure, extremes of body mass or the acutely ill. http://[facility] CITYnkf Specimen Anatomical Collection Method Collection Time Receive d Time (Source) Location / / Volume Laterality Blood specimen 02/12/2019 10:30 9 (specimen) AM EDT 10:46 AM EDT Resulting Agency Comment Spec In Lab Perla Hernandez MD CHEMISTRY ORDERABLES Performing Organization Address City/State/[place] [address] documented in this encounter Visit Diagnoses Diagnosis Hepatitis C virus infection without hepa tic coma, unspecified chronicity Class 1 obesity with serious comorbidity and body mass index (BMI) of 32.0 to 32.9 in adult, unspecified obesity type Hepatitis C virus infection without hepa tic coma, unspecified chronicity documented in this encounter Care Teams Bail Bond Agent Relationship Specialty Start Date End Date Hai Lopez DO PCP - General Family Medicine 10/10/17 [facility] [place] [address] documented as of this encounter
--- OUTSIDE RECORDS SUMMARY | 2022-04-28 01:10 | XMS_ITS | Encounter Summary ---
:1960 [place] [address] Care Team Providers Name Role Phone Hai Gallegos MD Primary Care Provider [phone] Reason for Visit Auth/Cert Specialty Diagnoses / Procedures Referred By Contact Refer red To Contact Diagnoses Sialadenitis sialadenitis Procedures PRO EXCISION SUBMAXILLARY GLAND EXCISION SUBMANDIBULAR (SUBMAXILLARY) GLAND-GARY (WRVU 6.14) Referral ID Status Reason Start Date Expiration Date Visits Requ ested Visits Authorized [id number] 1 1 Encounter Details Date Type Department Care Team Description 02/23/2017 Hospital Encounter Same Day Program at [facility], [facility] DR [facility]ega [place] [address] [place] [address] [phone] (Wo rk) Social History Tobacco Use Types Packs/Day Years Used Date Current Every Day Smoker Cigarettes 0.5 40 Smokeless Tobacco: Never Used Alcohol Use Standard Drinks/Week Comments No 0 (1 standard drink = 0.6 oz pure alcoho l) Sex Assigned at Date Recorded Not on file documented as of this encounter Last Filed Vital Signs Vital Sign Reading Time Taken Comments Blood Pressure 122/74 02/23/2017 11:30 AM EDT Pulse 93 02/23/2017 7:12 AM EDT Temperature 37 ??C (98.6 ??F) 02/23/2017 7:12 AM EDT Respiratory Rate 16 02/23/2017 7:12 AM EDT Oxygen Saturation 92% 02/23/2017 11:30 AM EDT Inhaled Oxygen Concentration - - [...] discussed. Should you have questions, please call [phone] during business hours. After hours, call [phone] and ask to speak with the ENT resident tongue lining stitcher. documented in this encounter Medications at Time [...] 1 tablet by mouth 10 tablet 0 09/28/20 mg Tablet every 4 hours as needed 7 1 8 for Pain. oxyCODONE (ROXICODONE) 5 Take 2.5 mg by mouth 0 20 mg Tablet every 8 hours as needed [...] Butler MD - 02/23/2017 10:05 AM EDT [facility] Operative Note Patient Name: Mary Beth Holman : [id number] MR#: [id number] Case Date: 02/23/2017 Surgeon: Surgeon(s) and Role: * Salty Butler MD - Primary * Berry Montez PA Preoperative diagnosis: sialadenitis Postoperative diagnosis: sialadenitis Procedure(s) (LRB): EXCISION SUBMANDIBULAR (SUBMAXILLARY) GLAND-GARY (WRVU 6.14) (Left) : GOMEZ/BARBI physical laboratory assistant surgeon (no qualified resident available) Anesthesia: [...] was marked and injected with 1% xylocaine [id number] epinephrine. Incision made through skin, fat and [...] Appointment Radiology Yuliana Hernandez MD [facility] [address] [place] [address] (Wo rk) 08/28/2022 Office Visit Gastroenterology Andrew Smith PA [facility] [address] [place] [address] (Wo rk) documented as of [...] Signature POC Glucose 154 65 - 199 [facility] mg/dL [facility] Comment: Supplemental ranges: <140 mg/dL before meals <180 mg/dL all other times of the day Specimen Anatomical Collection Method Collection Time Receive d Time (Source) Location / / Volume Laterality Blood specimen 02/23/2017 10:41 7 (specimen) AM EDT 10:41 AM EDT Salty Butler MD POINT OF CARE TEST ORDERABLE S Performing Organization Address City/[facility]/ZIP Code Ph[place] [address] Surgical Pathology Report (02/23/2017 10:01 AM EDT) Component Value Ref Test Analysis Performed At [facility] Range Method Time Signature Surgical [id number] ? Location: [facility]; [facility]; A [facility] Report The signing pathologist has (i) [...] Organization Address City/State/[place] [address] Specimen to Pathology (surgical or derm) (02/23/2017 10:01 AM EDT) Specimen Anatomical Collection Method Collection Time Receive d Time (Source) Location / / Volume Laterality AP Specimen 02/23/2017 10:01 02/23/2017 AM EDT 10:01 AM EDT Narrative [facility] - 02/23/2017 10:01 AM EDT Specimen requisition ordered. ??Separate Pathology report to follow Salty Butler MD PATHOLOGY/CYTOLOGY ORDERABLE S Performing Organization Address City/State/[place] [address] POCT Glucose (02/23/2017 7:24 AM EDT) athologist Signature POC Glucose 147 65 - 199 [facility] mg/dL [facility] Comment: Supplemental ranges: <140 mg/dL before meals <180 mg/dL all other times of the day Specimen Anatomical Collection Method Collection Time Receive d Time (Source) Location / / Volume Laterality Blood specimen 02/23/2017 7:24 AM 017 7:24 (specimen) EDT AM EDT Salty Butler MD POINT OF CARE TEST ORDERABLE S Performing Organization Address City/State/ZIP Code Phon e Number [address] documented in this encounter Visit Diagnoses Not [...] Day of Surgery (Day of Procedure), Routine lactated Ringers infusion 1,000 mL New [...] of Procedure), Routine oxyCODONE (ROXICODONE) immediate release Given 02/23/2017 11:30 AM EDT 2.5 mg tablet 5 mg 5 mg, Oral, ONCE, 1 dose, On Sun02/23/17 at 1130, Routine documented in this encounter Active and Recently Administered Medications Times are shown in EDT. Scheduled Medication Order 02/21/2017 02/22/2017 02/23/2017 acetaminophen (TYLENOL) tablet 1,000 mg (COMPLETED) 0730 (Given - Provider: Carmen Basurto RN) 1,000 [...] Prophylaxis gabapentin (NEURONTIN) capsule 600 mg (COMPLETED) 0730 (Given - Provider: Carmen Basurto RN) 600 mg, Oral, ONCE, 1 dose, Sun02/23/17 at 0730, Day of Surgery (Day of Procedure), Routine oxyCODONE (ROXICODONE) immediate release tablet 5 mg (COMPLETED) 1130 (Given - Provider: Leighann Barclay, SHAKIRA) 5 mg, Oral, ONCE, 1 dose, Sun02/23/17 at 1130, Routine Continuous Medication Order 02/21/2017 02/22/2017 02/23/2017 lactated Ringers infusion 1,000 mL (CANCELED) 0729 (New Bag - Provider: Carmen Basurto RN)0837 (New Bag - Provider: Niurka Quinteros CRNA)1020 (Anesthesia Volume Adjustment - Provider: Niurka Quinteros CRNA)1039 (Anesthesia Volume Adjustment - Provider: Niurka Quinteros CRNA) 1,000 mL, at 100 mL/hr, Intravenous, CON TINUOUS, Starting Sun02/23/17 at 0730, Until Sun02/23/17 at 1145, Day of Surgery (Day of Procedure) PRN Medication Order 02/21/2017 02/22/2017 02/23/2017 fentaNYL 50mcg/mL injection (CANCELED) 1101 (Given - Provider: Leighann Barclay, SHAKIRA) 25 mcg, Intravenous, EVERY 5 MIN PRN, [...] mg/mL (1 %) injection 3 mg (COMPLETED) 0729 (Given - Provider: Carmen Basurto, RN) 3 mg (0.3 mL), Subcutaneous, ONCE [...] 1054, Un til Sun02/23/17 at 2259, LEIGHANN MONROYUTH: cabinet override documented in this encounter Care Teams Machine Operator Assistant Relationship Specialty Start Date End Date Hai Gallegos MD PCP - General 05/31/10 10/09/[address] [place] [address] documented as of this encounter
--- OUTSIDE RECORDS SUMMARY | 2022-04-28 01:10 | XMS_ITS | Encounter Summary ---
:1960 Author Organization [facility] [place] [address] Care Team Providers Name Role Phone JohnHai DO Primary Care Provider Reason for Visit Reason Onset Date Comments Advice Only 03/01/2018 Encounter Details Date Type Department Care Team Description 03/01/2018 Telephone Gastroenterology at [facility] Anna Fontanez, Advice Only [facility] [place] [address] Social History Tobacco Use Types Packs/Day Years Used Date Current Every Day Smoker Cigarettes 0.5 40 Smokeless Tobacco: Never Used Comments: down to 5 cigs. 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 States that she was told that her liver is enlarged and that she has a bulge that can be seen below her rib cage. Further reports that her mother has noticed that she is jaundiced. Having increased pain after she eats. She would use [facility] for imaging if ok with Dr. Hernandez. Telephone Encounter - Anna Fontanez RN - 03/01/2018 9:35 AM EDT Received message from patient stating I am having pain and swelling in my liver and I want to tell Dr. Hernandez. Further states she had to cancel her ultrasound because of issues getting time off work. Attempted to return call. LVMM asking patient to call back to discuss further. Will d/w provider if ok for patient to have ultrasound done locally. If so, I will fax the order andarrange with patient. documented in this encounter Plan of Treatment Upcoming Encounters Date Type Specialty Care Team Description 08/28/2022 Laboratory Appointment Lab 08/28/2022 Appointment Radiology Yuliana Hernandez MD [facility] [address] [place] [address] (Wo rk) 08/28/2022 Office Visit Gastroenterology Andrew Smith PA [facility] [address] [place] [address] (Wo rk) documented as of this encounter Visit Diagnoses Not on filedocumented in this encounter Care Teams High School Librarian Relationship Specialty Start Date End Date Hai Lopez DO PCP - General Family Medicine 10/10/17 [address] [place] [address] documented as of this encounter
--- OUTSIDE RECORDS SUMMARY | 2022-04-28 01:10 | XMS_ITS | Encounter Summary ---
:1960 Author Organization [facility] [place] [address] Care Team Providers Name Role Phone JohnHai DO Primary Care Provider Reason for Visit Reason Comments Follow-up Encounter Details Date Type Department Care Team Description 10/26/2017 Office Visit [facility]ology at [facility] Yuliana Hernandez, H/O liver transplant; [facility] Lisa soto MD Hepatic cirrhosis, unspecified hepatic c irrhosis type, unspecified whether ascites present; [place] [address] [facility] hepatitis C without hepatic coma; [phone] [place] (nonalcoholic steatohepatitis) [place] [address] Social History Tobacco Use Types Packs/Day Years [...] Sign Reading Time Taken Comments Blood Pressure 123/78 10/26/2017 3:26 PM EDT Pulse 82 10/26/2017 3:26 PM EDT Temperature - - Respiratory Rate - - Oxygen Saturation - - Inhaled Oxygen Concentration - - Weight 83.6 kg (184 lb 6.4 oz) 10/26/2017 3:26 PM EDT Height 165.1 cm (5' 5) 10/26/2017 3:26 PM EDT Body Mass Index 30.69 10/26/2017 3:26 PM EDT documented in this encounter Progress Notes Yuliana Hernandez MD - 10/26/2017 3:30 PM EDT Gastroenterology and Hepatology Follow Up Note Patient: Mary Beth Holman : 1960 Provider: Yuliana Hernandez MD Problem List: #1 F3 liver fibrosis, SVR Hepatitis C #2 [place] - Fibroscan 09/2017: 10.2 kPa - EGD 10/2017: Negative for varices - CT 08/2017: Negative for HCC Interval History: Mrs. Holman reports improvement in her diarrhea since her colonoscopy. Her EGD and colonoscopy wereendoscopically normal. Gastric biopsy showed intestinal metaplasia. She has no family history of gastric cancer. Colon biopsies showed patchy mild acute colitis. Current Outpatient Prescriptions Medication Sig Dispense Refill ??? CHANTIX 0.5 mg Tablet take 1 tablet by mouth twice a day 0 ??? gabapentin (NEURONTIN) 300 mg Capsule 0 ??? promethazine-codeine (PHENERGAN WITH CODEINE) 6.25-10 [...] current facility-administered medications for this visit. Vitals: 10/26/17 1526 BP: 123/78 Pulse: 82 Weight: 83.6 kg (184 lb 6.4 oz) Height: 165.1 cm (5' 5) Body mass index is 30.69 kg/(m^2). Exam: Looks well Assessment and Plan: #1 Steatohepatitis with grade 3 fibrosis #2 Hep C SVR She does require ongoing screening for HCC giving her history of hepatitis C and high-grade fibrosis. Next imaging is due in February 2018, ultrasound ordered. She has significant risk factors for [place] which are likely contributing. She is interested in clinical trials I forward her information to her motion study engineer. She is not a candidate for vitamin E given her diabetes. #3 Diarrhea, improved #4 Abdominal pain Her diarrhea has improved since colonoscopy. We reviewed using Imodium as needed for symptom control. Infectious workup and fecal count protected was negative. Small bowel biopsies were normal. Random colon biopsies were negative for microscopic colitis. Suspect that this is post infectious. We discussed that it can be a long time until her symptoms completely resolved. Given her description of her abdominal pain in association with eating this could be secondary to a postinfectious gastroparesis. Gave her recommendations on a gastroparesis diet. If she has not seen any improvement in the next 6-8 weeks and is continuing to lose weight she will contact me. Yuliana Hernandez MD Section of Gastroenterology & Hepatology [address] [place], [place] [id number] 29 minutes of this 30 minute visit was spent in discussion. Cc: Hai Lopez DO documented in this encounter Plan of Treatment Upcoming Encounters Date Type Specialty Care Team Description 08/28/2022 Laboratory Appointment Lab 08/28/2022 Appointment Radiology Yuliana Hernandez MD [facility] [address] [place] [address] (Wo roz) 08/28/2022 Office Visit Gastroenterology Andrew Smith PA [facility] [address] [place] [address] (Wo roz) Scheduled Orders Name Type Priority Associated Diagnoses Order S chedule CBC (with Diff) Lab Routine Hepatic cirrhosis, Expect ed: 02/25/2018 unspecified hepatic (Approxi mate), cirrhosis type, Expires: unspecified whether ascites present [place] (nonalcoholic steatohepatitis) Comprehensive metabolic Lab Routine Hepatic cirrhosis , Expected: 02/25/2018 panel (non-fasting) unspecified hepatic ( Approximate), cirrhosis type, Expires: unspecified whether ascites present [place] (nonalcoholic steatohepatitis) Prothrombin Time Lab Routine Hepatic cirrhosis, Expec miguelina: 02/25/2018 unspecified hepatic (Approxi mate), cirrhosis type, Expires: unspecified whether ascites present [place] (nonalcoholic steatohepatitis) AFP tumor marker Lab Routine Hepatic cirrhosis, Expec miguelina: 02/25/2018 unspecified hepatic (Approxi mate), cirrhosis type, Expires: unspecified whether ascites present [place] (nonalcoholic steatohepatitis) documented as of this encounter Visit Diagnoses Diagnosis H/O liver transplant Liver replaced by transplant Hepatic cirrhosis, unspecified hepatic c irrhosis type, unspecified whether ascites present Chronic hepatitis C without hepatic coma [place] (nonalcoholic steatohepatitis) Other chronic nonalcoholic liver disease documented in this encounter Care Teams Nip Wrapper Relationship Specialty Start Date End Date Hai Lopez DO PCP - General Family Medicine 10/10/[address] [place] [address] documented as of this encounter
--- OUTSIDE RECORDS SUMMARY | 2022-04-28 01:10 | XMS_ITS | Encounter Summary ---
:1960 Author Organization [facility] [place] [address] Care Team Providers Name Role Phone Hai Gallegos MD Primary Care Provider [phone] Reason for Visit Reason Comments Low Back Pain Left Leg Pain Encounter Details Date Type Department Care Team Description 09/09/2015 Office Visit [facility] Chroni c low back pain Nomi REBOLLAR [facility] [address] [place] [facility] [address] [place] [address] [phone] Social History Tobacco Use Types Packs/Day Years Used Date Current Every Day Smoker Cigarettes 0.5 Smokeless Tobacco: Never Used Sex Assigned at Date Recorded Not on file documented as of this encounter Progress Notes [facility] MD - 09/09/2015 1:59 PM EST CHIEF COMPLAINT: Chronic low back pain. SUBJECTIVE: She is here for her one-month protocol followup from the [facility]. She is very happy with her results noting that while her pain has not changed very much she is physically much more active now and her spirits have definitely improved. She still has trouble with sleeping, and we have discussed this at some length that she has had a variety of different medication trials, presently using Flexeril and Tylenol No. 3 at night with some initial benefit, but then waking up with discomfort and not getting a restorative sleep. She also uses Seroquel on an as needed basis, and while this can be effective it usually has her feeling sedated in the morning. She would like to talk this over with Dr. Gallegos, and I think that is a very good idea. OBJECTIVE: Her affect is the brightest I have ever seen it. Her physical testing was not repeated, but her functional testing from earlier today was reviewed with the physical therapy staff and with her, and she really has done a good job of maintaining these gains that she has made especially in repetitive lifting and endurance. ASSESSMENT: I think it is very reasonable for her to continue with her home exercise program as reviewed with her by the physical therapy staff today. I do think it would be quite reasonable for her to visit with Dr. Gallegos to discuss other options in terms of her nighttime medications. We will review progress with her here on an as needed basis since she is doing as well as she is now one month out from the program. documented in this encounter Plan of Treatment Upcoming Encounters Date Type Specialty Care Team Description 08/28/2022 Laboratory Appointment Lab 08/28/2022 Appointment Radiology Yuliana Hernandez MD [facility] [address] [place] [address] (Wo rk) 08/28/2022 Office Visit Gastroenterology Andrew Smith PA [facility] [address] [place] [address] (Wo rk) documented as of this encounter Visit Diagnoses Diagnosis Chronic low back pain Lumbago documented in this encounter Care Teams Steel Estimator Relationship Specialty Start Date End Date Hai Gallegos MD PCP - General 05/31/10 10/09/17 [address] [place] [address] documented as of this encounter
--- OUTSIDE RECORDS SUMMARY | 2022-04-28 01:10 | XMS_ITS | Encounter Summary ---
:1960 Author Organization [place] [address] Care Team Providers Name Role Phone Hai Lopez Corey MOORE Primary Care Provider Encounter Details Date Type Department Care Team Description 05/10/2018 Office Visit Gastroenterology at [facility] Perla Hernandez, Hepatic cirrhosis, [facility] [place] [address] One [facility] cirrhosis type, Center unspecified whether [place], [place] ascites present [id number] Social History Tobacco Use Types Packs/Day Years [...] Sign Reading Time Taken Comments Blood Pressure 142/83 05/10/2018 9:32 AM EDT Pulse 90 05/10/2018 9:32 AM EDT Temperature - - Respiratory Rate - - Oxygen Saturation - - Inhaled Oxygen Concentration - - Weight 84.5 kg (186 lb 4.8 oz) 05/10/2018 9:32 AM EDT Height 165.1 cm (5' 5) 05/10/2018 9:32 AM EDT Body Mass Index 31 05/10/2018 9:32 AM EDT documented in this encounter Progress Notes Perla Hernandez MD - 05/10/2018 9:30 AM EDT Gastroenterology and Hepatology Follow Up Note Patient: Mary Beth Holman : 1960 Provider: Perla Hernandez MD Problem List: #1 F3 liver fibrosis, SVR Hepatitis C #2 BUI - Fibroscan 09/2017: 10.2 kPa - EGD 10/2017: Negative for varices - CT 08/2017: Negative for HCC - U/S 02/2018: negative for HCC Interval History: Her main concern is epigastric swelling after meal. She has started a low fat and fiber diet. She isalso having small meals throughout the day. Her post- prandial symptoms have not significant improved, but she has noted improvements in her diarrhea with the diet modifications. Current Outpatient Medications Medication Sig Dispense Refill [...] current facility-administered medications for this visit. Vitals: 05/10/18 0932 BP: 142/83 Pulse: 90 Weight: 84.5 kg (186 lb 4.8 oz) Height: 165.1 cm (5' 5) Body mass index is 31 kg/m??. Exam: Looks well Assessment and Plan: #1 Steatohepatitis with grade 3 fibrosis #2 Hep C SVR Liver function is stable. Ultrasound was negative 02/2018. We discussed the importance of diet and exercise leading to weight loss for maintaining liver health. She will follow-up in August 2018 with labs, ultrasound, and clinic visit. ?? #3 Diarrhea, improved #4 Abdominal pain Gastric emptying scan is ordered but has not yet been scheduled. She will schedule this today. She will continue on the gastroparesis diet. I recommended adding peppermint extract 5 drops in a beverage3 times per day for symptom management. We discussed next steps will be based on the gastric emptying today. If gastroparesis is confirmed medical management may be considered. If she does not have gastroparesis further options for management of functional dyspepsia would include FDGard or FODMAP. Perla Hernandez MD Section of Gastroenterology & Hepatology [address] [place] [phone] 25 minutes of this 26 minute visit was spent in discussion. Cc: Hai Lopez DO documented in this encounter Plan of Treatment Upcoming Encounters Date Type Specialty Care Team Description 08/28/2022 Laboratory Appointment Lab 08/28/2022 Appointment Radiology Perla Hernandez MD [facility] [address] [place] [address] (Wo rk) 08/28/2022 Office Visit Gastroenterology nAdrew Smith PA [facility] [address] [place] [address] (Wo rk) documented as of this encounter Results US Abdomen Complete (08/22/2018 [...] below. Electronically signed by: Jing peralta MD, Radiology [facility] ([phone]), at 10:44 AM ?Jing Betancur, Staff Physician Electronically Signed Final Report ?? 01:03 pm Narrative 08/22/2018 1:04 PM EST Abdominal ?(Signed Final 08/22/2018 01:03 pm) PATIENT INFO: ID #: ? [id number] ?: ??[birth year] (57 yrs) Name: ? MARY BETH HOLMAN ?Visit Date: 08/22/2018 09:36 am PERFORMED BY: Performed By: ? More Mccullough RDMS Attending: ?Gypsy REBOLLAR, There se Morrell. Resident: ? Kalen REBOLLAR, Max Valentino Referred By: ?PERLA HERNANDEZ Location: ? [facility] SERVICE(S) PROVIDED: ??[facility] - Abdominal Complete Survey - I [id number] ?[id number] INDICATIONS: ??cirrhosis, hx of Hep C, HCC [...] 01:0 3 pm) PATIENT INFO: ID #: [id number] : [birth year] (57 y rs) Name: MARY BETH HOLMAN Visit Date: 08/22 09:36 am PERFORMED BY: Performed By: More Mccullough RDMS Attending: Jing Betancur MD Resident: Max Higuera MD Referred By: PERLA HERNANDEZ Location: [facility] SERVICE(S) PROVIDED: [facility] - Abdominal Complete Survey - IMG [phone] [id number] INDICATIONS: cirrhosis, hx of Hep C, HCC [...] below. Electronically signed by: Jing peralta MD, [facility] ([phone]), at 10:44 AM Jing Betancur, Staff Physician Electronically Signed Final Report 08/22 01:03 pm Perla Hernandez MD IMG US GEN ORDERABLES AFP tumor marker (08/22/2018 8:23 AM EST) athologist Signature AFP 2.4 <=8.3 ng/mL [facility] Specimen Anatomical Collection Method Collection Time Receive d Time (Source) Location / / Volume Laterality Blood specimen 08/22/2018 8:23 AM 8:29 (specimen) EST AM EST Resulting Agency Comment Spec In Lab Perla Hernandez MD CHEMISTRY ORDERABLES Performing Organization Address City/[facility] [place] [address] Prothrombin Time (08/22/2018 8:23 AM EST) athologist Signature PT 11.2 9.4 - 12.5 [facility] LABORATORY INR 1.0 [facility] Comment: An INR <2.0 indicates [...] Hernandez MD HEMATOLOGY ORDERABLES Performing Organization Address City/[facility]/[place]IP [place] [address] (ABNORMAL) Comprehensive metabolic panel (non-fasting) (08/22/2018 8:23 AM EST) athologist Signature Glucose Lvl 166 65 - 199 [facility] mg/dL [facility] Comment: Diabetes: >=200 mg/dL plus symp toms BUN 19 (H) 8 - 18 mg/dL [facility] Creatinine 0.74 0.70 - 1.20 mg/dL [facility] Sodium 140 135 - 145 mmol/L [facility] Potassium 4.8 3.5 - 5.0 mmol/L [facility] Comment: Please note: ??Patients with WBC >100,00 0 may have falsely elevated Potassium levels. ??For accurate Potassium quantif ication in these patients send serum separator tube (gold top) for subsequent determinations. ??Contact the Clinical Chemistry Laboratory if there are any qu estions. Chloride 100 98 - 107 mmol/L [facility] CO2 25 22 - 31 mmol/L [facility] Anion Gap 15 5 - 15 mmol/L [facility] Calcium 9.9 8.5 - 10.5 mg/dL [facility] Total Protein 7.5 6.1 - 8.0 gm/dL [facility] Albumin 4.6 3.2 - 5.2 gm/dL [facility] AST 28 0 - 30 unit/L [facility] ALT 35 (H) 0 - 30 unit/L [facility] Alk Phos 91 40 - 104 unit/L [facility] Total Bilirubin 0.4 0.2 - 1.3 mg/dL [facility] Estimated GFR 89 >=60 mL/min/1.73 m?? [facility] Comment: The eGFR was calculated using the CKD-EP I equation. As with all creatinine based estimates of kidney function, eGFR values calculated with the CKD-EPI equation are not accurate in patients wi th acute kidney failure, extremes of body mass or the acutely ill. [email or web address]/[facility] eGFR 104 >=60 mL/min/1.73 m?? [facility] Comment: The eGFR was calculated using the CKD-EP I equation. As with all creatinine based estimates of kidney function, eGFR values calculated with the CKD-EPI equation are not accurate in patients wi th acute kidney failure, extremes of body mass or the acutely ill. [email or web address]/[facility] Specimen Anatomical Collection Method Collection Time Receive d Time (Source) Location / / Volume Laterality Blood specimen 08/22/2018 8:23 AM 019 8:29 (specimen) EST AM EST Resulting Agency Comment Spec In Lab Perla Hernandez MD CHEMISTRY ORDERABLES Performing Organization Address City/State/[place] [address] documented in this encounter Visit Diagnoses Diagnosis Hepatic cirrhosis, unspecified hepatic c irrhosis type, unspecified whether ascites present Hepatic cirrhosis, unspecified hepatic c irrhosis type, unspecified whether ascites present documented in this encounter Care Teams Environmental Compliance Officer Relationship Specialty Start Date End Date Hai Lopez DO PCP - General Family Medicine 10/10/[address] [place] [address] documented as of this encounter
--- OUTSIDE RECORDS SUMMARY | 2022-04-28 01:10 | XMS_ITS | Encounter Summary ---
:1960 Author Organization [facility] [place] [address] Care Team Providers Name Role Phone ChengHai riley DO Primary Care Provider Reason for Visit Auth/Cert Specialty Diagnoses / Procedures Referred By Contact Refer red To Contact Diagnoses abd pain, diarrhea, nausea Procedures PRO UPPER GI ENDOSCOPY, DIAGNOSTIC PRO COLONOSCOPY, DIAGNOSTIC EGD, UPPER GI ENDOSCOPY COLONOSCOPY, DIAGNOSTIC Referral ID Status Reason Start Date Expiration Date Visits Requ ested Visits Authorized [id number] 1 1 Encounter Details Date Type Department Care Team Description 10/10/2017 Hospital Encounter Gastroenterology at [facility] Yuliana Hernandez, [facility] [place] [address] [facility] [phone] [place] [address] Social History Tobacco Use Types Packs/Day [...] to be checked. Sunday-Sunday Same Day Endo [phone] Otherwise contact [phone] and ask to speak to the corrective therapy aide teacher family and consumer education teacher Follow up care is a pan part [...] Lab 08/28/2022 Appointment Radiology Yuliana Hernandez MD [facility] [address] [place] [address] (Wo rk) 08/28/2022 Office Visit Gastroenterology Andrew Smith PA [facility] [address] [place] [address] (Wo rk) [...] Volume Laterality AP Specimen 10/10/2017 4:32 PM 10/10/201 8 4:32 EDT PM EDT Narrative [facility] - 10/10/2017 4:32 PM EDT Specimen requisition ordered. ??Separate Pathology report to follow Richmond Orellana MD PATHOLOGY/CYTOLOGY ORDERABLE S Performing Organization Address City/State/[place] [address] Surgical Pathology Report (10/10/2017 4:19 PM EDT) Component Value Ref Test Analysis Performed At [facility] gist Range Method Time Signature Surgical [id number] ? Location: 4T; EA07; A [facility] Report The signing pathologist has (i) examined the relevant preparation(s) for the [facility] specimen(s) and (ii) rendered or confirmed the [...] Gunner Morrell Verified: ??10/17/2017 ?Pathologist Performed at: ??-[facility] Dept. of Pathology, [place], [place] DISCUSSION 1. ??There is no histological [...] MD PATHOLOGY/CYTOLOGY ORDERABLE S Performing Organization Address City/[facility]/[place] [address] Specimen to Pathology (10/10/2017 4:19 PM EDT) Specimen Anatomical Collection Method Collection Time Receive d Time (Source) Location / / Volume Laterality AP Specimen 10/10/2017 4:19 PM 8 4:19 EDT PM EDT Narrative [facility] OR - 10/10/2017 4:19 PM EDT Specimen requisition ordered. ??Separate Pathology report to follow Richmond Orellana MD PATHOLOGY/CYTOLOGY ORDERABLE S Performing Organization Address City/[facility] [place] [address] Specimen to Pathology (10/10/2017 4:19 PM EDT) Specimen Anatomical Collection Method Collection Time Receive d Time (Source) Location / / Volume Laterality AP Specimen 10/10/2017 4:19 PM 8 4:19 EDT PM EDT Narrative [facility] OR - 10/10/2017 4:19 PM EDT Specimen requisition ordered. ??Separate Pathology report to follow Richmond Orellana MD PATHOLOGY/CYTOLOGY ORDERABLE S Performing Organization Address City/[facility]/ZIP Code Phon e Number [address] Specimen to Pathology (10/10/2017 4:19 PM EDT) Specimen Anatomical Collection Method Collection Time Receive d Time (Source) Location / / Volume Laterality AP Specimen 10/10/2017 4:19 PM 8 4:19 EDT PM EDT Narrative [facility] - 10/10/2017 4:19 PM EDT Specimen requisition ordered. ??Separate Pathology report to follow Richmond Orellana MD PATHOLOGY/CYTOLOGY ORDERABLE S Performing Organization Address City/[facility] [place] [address] COLONOSCOPY (10/10/2017 3:58 PM EDT) [facility] Method Time Signature COLONOSCOPY [facility] Endoscopy Procedure Date: 10/10/2017 3:58 PM ? Patient Name: Mary Beth Holman ? Date of : 1960 ? Age: 57 ? Order #: [id number] ? Instrument Name: [facility]-[id number] ? Procedure: ? Colonoscopy Indications: ? Chronic [...] withdrawn. Th e ? colonoscopy was performed elvia willoughby ? difficulty. The patient anthony ated the [...] Address City/State/ZIP Code Phon e Number [facility] UPPER GI ENDOSCOPY (10/10/2017 3:57 PM EDT) Component Value Ref Test Analysis Performed At [facility] Range Method Time Signature UPPER GI [facility] ENDOSCOPY Endoscopy Procedure Date: 10/10/2017 3:57 PM ? Patient Name: Mary Beth Holman ? Date of : 1960 ? Age: 57 ? Order #: [id number] ? Instrument Name: [id number] ? Procedure: ? Upper GI endoscopy Indications: [...] [facility] the ? mouth, and [facility] ? [facility] duodenum. The patient tole rated ? the procedure well. The upper GI ? endoscopy was accomplished wi out ? difficulty. The patient anthony ated the [...] Diagnoses Not on filedocumented in this encounter Active and Recently Administered [...] PRN, Starting Sun10/10/17 at 1558, U ntil Sun10/10/17 at 2016, Intra-Operative (Intra-Procedure), Routine midazolam (PF) (VERSED) 1 mg/mL multi-dose injection (CANCELED) 1554 (Given - Provider: Victor Manuel Terrell RN)1558 (Given - Provider: Victor Manuel Trerell RN)1603 (Given - Provider: Victor Manuel Terrell RN)1606 (Given - Provider: Victor Manuel Terrell RN)1615 (Given - Provider: Victor Manuel Terrell RN) ONCE PRN, Starting Sun10/10/17 at 1558, U ntil Sun10/10/17 at 2016, Intra-Operative (Intra-Procedure), Routine documented in this encounter Care Teams Vocational Rehabilitation Consultant Relationship Specialty Start Date End Date Hai Lopez DO PCP - General Family Medicine 10/10/[address] [place] [address] documented as of this encounter
--- OUTSIDE RECORDS SUMMARY | 2022-04-28 01:10 | XMS_ITS | Encounter Summary ---
:1960 Author Organization [facility] [place] [address] Care Team Providers Name Role Phone Hai Lopez DO Primary Care Provider Reason for Visit Diagnostic Test (Routine) - Closed Specialty Diagnoses / Procedures Referred By Contact Refer red To Contact Radiology Diagnoses Epigastric abdominal pain Yuliana Hernandez MD [facility] Rad Nuclear Med Procedures [place] [address] [place] [address] Fax: Referral ID Status Reason Start Date Expiration Date Visits V isits Requested Authorized [id number] Closed Specialty 04/01/2018 04/01/2019 5 5 Service Requested Encounter Details Date Type Department Care Team Description 05/15/2018 Hospital Encounter Nuclear Medicine at [place]ul[place] [address] [place] [address] [phone] Social History Tobacco Use Types Packs/Day Years [...] Appointment Radiology Yuliana Hernandez MD [facility] [address] [place] [place] [address] (Delmar courtney) 08/28/2022 Office Visit Gastroenterology Andrew Smith PA [facility] [address] [place] [place] [address] (Delmar courtney) documented as of this encounter Procedures Procedure Name Priority Date/Time Associated Diagnosis Comme [facility] GASTRIC EMPTYING Routine 05/15/2018 12:46 PM [...] IMPRESSION Normal gastric emptying Yuliana Hernandez MD [facility] ORDERABLES documented in this encounter Visit Diagnoses Not on filedocumented in this encounter Care Teams Pharmaceutical Detailer Relationship Specialty Start Date End Date Hai Lopez DO PCP - General Family Medicine 10/10/[address] [place] [address] documented as of this encounter
--- OUTSIDE RECORDS SUMMARY | 2022-04-28 01:10 | XMS_ITS | Encounter Summary ---
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 [address] Phone: Fax: Referral ID Status Reason Start Date Expiration Date Visits Requ ested Visits Authorized [id number] Closed 12/19/2016 12/19/2017 1 1 Encounter Details Date Type Department Care Team Description 01/04/2017 Office Visit Otolaryngology at [facility] Carrie, Sialadenitis; [facility] Salty Nicole MD Sialolithiasis [place] [address] [place] [address] [place] [address] Social History Tobacco Use Types Packs/Day Years Used Date Current Every Day Smoker Cigarettes 0.5 40 Smokeless Tobacco: Never Used Alcohol Use Standard Drinks/Week Comments No 0 (1 standard drink = 0.6 oz pure alcoho l) Sex Assigned at Date Recorded Not on file documented as of this encounter Last Filed Vital Signs Vital Sign Reading Time Taken Comments Blood Pressure 154/82 01/04/2017 8:12 AM EDT Pulse 109 01/04/2017 8:12 AM EDT Temperature - - Respiratory Rate 20 01/04/2017 8:12 AM EDT Oxygen Saturation 98% 01/04/2017 8:12 AM EDT Inhaled Oxygen Concentration - - Weight 96.3 kg (212 lb 4.8 oz) 01/04/2017 8:12 AM EDT Height 165.1 cm (5' 5) 01/04/2017 8:12 AM EDT Body Mass Index 35.33 01/04/2017 8:12 AM EDT documented in this encounter Progress Notes Salty Butler MD - 01/04/2017 8:20 AM EDT [facility] Otolaryngology - Head and Neck Surgery Lizandro Becerril PA-C 01/04/17 9:17 AM [place] [address] Office Patient Name: Mary Beth Holman Date of : 1960 PCP: Hai Gallegos MD Chief Complaint: Sialolithiasis and sialodenitis History of Present Illness: Mary Beth Holman is a 56 y.o. year old female with a history of Uncontrolled DM2, COPD, 75 pack year smoking history, 6 year heavy drinking history, Asthma, and Obesity who was seen today at the requestof Ivan Brown in consultation for recurrent sialolilthiasis and sialodenitis. Started about a year ago with left submandibular swelling. Went to ED, told had a stone, and to apply heat and message. PCP had pt See Dr. Brown who advised watching it. Another 2-3 episodes, with heat and message treating with good effect. One month ago the swelling was much worse. Had pain, torticollis, fevers. Went to ED, had abscess in Submandibular gland, given Augmentin that treated it. Went to [facility] who excision, but referred to [facility] due to comorbidities. Has smoking history of 10 years 3ppd, 30 years 1-2 ppd, currently smoking 1/2 ppd. Diabetes previously 500-600 in morning, last A1c of 7.9. Feels better controlled now with added DM Januvia, gets ~170 in the morning. Head and neck symptom survey >Symptom ?? >Comments Dysphagia n Odynophagia y During episodes only Voice change or hoarseness n Breathing difficulties Otalgia y Right ear pain for a couple of days Hemoptysis ?? Adenopathy n See HPI Weight loss n Xerstomia y Attributes to her medications Trismus n Numbness n Loose Dentition n Taste disturbance n ?? 10 point Review of Systems was normal except for pertinent positives and negatives included in the History of Present Illness. Physical Exam Physical Examination: Vitals: Blood pressure 154/82, pulse 109, resp. rate 20, height 165.1 cm (5' 5), weight 96.3 kg (212 lb 4.8 oz), SpO2 98 %. General: Well dressed and well nourished. Breathing comfortably without stridor. No acute distress. Face: Full and symmetric facial movement. No dysmorphic facial features. Eyes: Periocular structures and conjunctiva healthy without lesions. Pupils are equal, round, and reactive to light. Extraocular movement is full and intact. No evidence of nystagmus. Ears: Left: normal exam of the external ear and canal; tympanic membrane with small retraction pocket in pars flaccida. Right: normal exam of the external ear, canal and tympanic membrane. Nose: Patent anteriorly with adequate airflow, healthy pink mucosa. Septum is midline without significant deviation. Inferior turbinates normal exam. Mouth: Lips and gingiva pink, moist, without lesions. Tongue and floor of mouth without lesions or masses. Hard palate without lesions. Pharynx: Soft palate without lesions. Uvula is midline. Oropharynx symmetric. Salivary: Normal exam of the parotid glands.and submandibular glands. Neck: Soft, supple, without significant lymphadenopathy. Left submandibular gland tenderness to palpation. RIght parotid fullness, tender to palpation. Thyroid gland without masses or asymmetry. Trachea midline without deviation. Lungs: Clear to auscultation bilaterally without wheezes. Heart: Regular rate and rhythm without murmur. Neurologic: Cranial nerves II-XII intact and symmetric. Responds appropriately to questions. Psych: Normal mood and affect. ASSESSMENT & RECOMMENDATIONS Mary Beth Holman is a 56 y.o. year old female with a history of Uncontrolled DM2, COPD, 75 pack year smoking history, 6 year heavy drinking history, Asthma, and Obesity who was seen today in consultation for recurrent left submandibular sialolilthiasis and sialodenitis. Began a year ago, has had 4-5 episodes of swelling; generally able to treat with heat and message to pass the stones, but did have more significant episode a month ago that included abscess formation, treated with antibiotics. Discussed options of continued monitoring over time, of dilation of the submandibular duct, and of excision of that submandibular gland. Patient expressed desire to have the gland out, and the risks and post-operative course was discussed with the patient. Consent was given for the procedure. Recommendations: 1. Left submandibular gland excision. Consent obtained. Lizandro Becerril PA-C [place], [place] [address] Office 01/04/17 9:17 AM [facility] Otolaryngology Attending Note Patient seen and examined with the Associate Provider. I have reviewed and agree with the history, physical, and assessment and plan. Pertinent Exam Findings/Procedure Performed/Imaging Reviewed On exam, she has fullness in the left submandibular gland. Currently there is good saliva flow from the duct and no evidence of stone. Normal marginal, hypoglossal, and lingual nerve function. Remainder of HN exam is normal. Assessment/Recommendations Recurrent submandibular sialadenitis on the left. We discussed a number of options including (1) continue symptomatic treatment with antibiotics, massage, sialogogues, etc (2) sialolithotomy and sialodochoplasty in the office (3) submandibular gland excision. She considered these options and would like to proceed with excision of the gland. We will make arrangements accordingly. Risks of bleeding, infection, scarring, nerve damage, need for further surgery were all reviewed. documented in this encounter Plan of Treatment Upcoming Encounters Date Type Specialty Care Team Description 08/28/2022 Laboratory Appointment Lab 08/28/2022 Appointment Radiology Yuliana Hernandez MD [facility] [address] [place] [address] (Wo rk) 08/28/2022 Office Visit Gastroenterology Andrew Smith PA [facility] [address] [place] [address] (Wo rk) documented as of this encounter Procedures Procedure Name Priority Date/Time Associated Diagnosis Comme nts EXCISION Routine 01/04/2017 9:13 AM EDT Sialadenitis SUBMANDIBULAR(SUBMAXILL LAKSHMI) GLAND, GARY documented in this encounter Visit Diagnoses Diagnosis Sialadenitis Sialoadenitis Sialolithiasis of submandibular gland Sialolithiasis documented in this encounter Care Teams Slubber Runner Relationship Specialty Start Date End Date Hai Gallegos MD PCP - General 05/31/10 10/09/17 [address] [place] [address] documented as of this encounter
--- OUTSIDE RECORDS SUMMARY | 2022-04-28 01:11 | XMS_ITS | Encounter Summary ---
:1960 Author Organization [facility] [place] [address] Care Team Providers Name Role Phone Hai Gallgeos MD Primary Care Provider [phone] Reason for Visit Reason Comments Back Pain Encounter Details Date Type Department Care Team Description 07/29/2015 Office Visit Functional [facility] Juan Carlos Foley, Chronic low back pain Program at [facility] PT [address] [place] [address] [place] [address] Social History Tobacco Use Types Packs/Day Years Used Date Current Every Day Smoker Cigarettes 0.5 Smokeless Tobacco: Never Used Sex Assigned at Date Recorded Not on file documented as of this encounter Progress Notes Juan Carlos Foley, PT - 07/29/2015 9:23 AM EST [facility] Physical Therapy Note [facility] Day 13 Protocol Subjective: Mary Beth returns today for a scheduled follow up appointment with [facility] and reports current functional tolerances as listed below. Treatment Received: Refer to [facility] protocol for explanation of program/physical therapy details. 1. Therapeutic and Functional Exercise: See [facility] flow sheets for progression. Strengthening and conditioning designed according to personal functional recovery goals and [facility] protocol was only partiallycompleted as Mary Beth needed to leave early to take her mother to see a doctor. 2. Home Exercise Program: Reviewed and modified current home exercise program. The Home Exercise Program was: (x) Unchanged ( ) Modified 3. Neurological Assessment: (x) No change in status ( ) Change in status Evaluation of progress during FRP and discharge planning: Participation level was consistent and high. Reported Tolerance (minutes):?? First Day of FRP?? End of Program?? 4 Week Follow-Up?? 3 Month Follow-Up?? Sitting?? 60?60 ? Standing?? 30?45 ? Walking?? 10?60 ? Flexibility (degrees): ? Low Back:?? First Day of FRP?? End of Program?? 4 Week Follow-Up?? 3 Month Follow-Up?? Bending Forward?? 40?? 65? Bending Back?? 10?? 15 ? Straight Leg Raise Right?? 60?? 60? Straight Leg Raise Left?? 50?? 55 ? Straight Leg Raise-Pelvic?? 20?? 0? First Day of FRP?? End of Program?? 4 Week Follow-Up?? 3 Month Follow-Up?? Treadmill Endurance (MET level/HR)?? 3?7/138 ? Reason for stop point?? Left foot pain?Low back pain ? Self-care exercise program i) Relapse prevention: Walking, stretching, relaxation techniques. ii) Increasing physical capacities: Home lifting program. Plan: Return for follow up with FRP per protocol. Length of visit: Participated in program physical activity from 8:00 a.m. through 10:00 a.m. today. During that time, 30 minutes were spent to re-test physical performance measures. Care was provided by both a physical therapist and physical therapist assistant community manager. Cande Wilson PTA documented in this encounter Plan of Treatment Upcoming Encounters Date Type Specialty Care Team Description 08/28/2022 Laboratory Appointment Lab 08/28/2022 Appointment Radiology Yuliana Hernandez MD [facility] [address] [place] [place] [address] (Wo rk) 08/28/2022 Office Visit Gastroenterology Andrew Smith PA [facility] [address] [place], [place] [address] (Wo rk) documented as of this encounter Visit Diagnoses Diagnosis Chronic low back pain Lumbago documented in this encounter Care Teams Pres[facility] Clergy Relationship Specialty Start Date End Date Hai Gallegos MD PCP - General 05/31/10 10/09/[address] [place] [place] [address] documented as of this encounter
--- OUTSIDE RECORDS SUMMARY | 2022-04-28 01:11 | XMS_ITS | Encounter Summary ---
:1960 Author Organization [facility] [place] [address] Care Team Providers Name Role Phone Hai Gallegos MD Primary Care Provider [phone] Reason for Visit Reason Comments Low Back Pain Encounter Details Date Type Department Care Team Description 07/26/2015 Office Visit Functional Tenriism Skylar Funes C onic low back pain Program at [facility] OT [address] [place] [address] Social History Tobacco Use Types Packs/Day Years Used Date Current Every Day Smoker Cigarettes 0.5 Smokeless Tobacco: Never Used Sex Assigned at Date Recorded Not on file documented as of this encounter Progress Notes Skylar Funes, HODAN - 07/26/2015 9:06 AM EST [facility] Occupational Therapy Note [facility] Day 10 Protocol Subjective: Ms. Holman returns today for a scheduled follow up appointment with [facility]. She reports that she was unable to complete her home lifting program over the weekend due to a family illness, however her back was feeling pretty good today. Objective: Refer to [facility] protocol for details and explanation of each activity. Ms. Holman participated in the following activities: Functional Therapy: 1. AM Session of functional conditioning ( X ) Completed ( ) Not Completed 2. PM Session of functional conditioning ( X ) Completed ( ) Not Completed Individualized Treatment: Increased resistance levels of functional conditioning exercises accordingto personal recovery goals. Please see goals in initial OT evaluation report from Day 1. Daily functional conditioning progressis documented on a flow sheet which is available on request. Assessment: Ms. Holman continues to work according to protocol in order to reach her functional goals. She had a good understanding of today's conditioning principles and participated actively in progression of function. Plan: Return for follow up with FRP per protocol. Continue training according to planned progressions towards functional recovery goals. Length of Treatment: Ms. Holman participated in program activities form 8:00 a.m. through 2:30 p.m.today. A total of 45 minutes was spent during that time to establish and implement individualized occupational therapy strategies. Care was provided by both an Occupational Therapist and Power Builder Developer, BRONWYN Ortega documented in this encounter Plan of Treatment Upcoming Encounters Date Type Specialty Care Team Description 08/28/2022 Laboratory Appointment Lab 08/28/2022 Appointment Radiology Yuliana Hernandez MD [facility] [address] [place] [address] (Wo rk) 08/28/2022 Office Visit Gastroenterology Andrew Smith PA [facility] [address] [place] [address] (Wo rk) documented as of this encounter Visit Diagnoses Diagnosis Chronic low back pain Lumbago documented in this encounter Care Teams Webbing Inspector Relationship Specialty Start Date End Date Hai Gallegos MD PCP - General 05/31/10 10/09/[address] [place] [address] documented as of this encounter
--- OUTSIDE RECORDS SUMMARY | 2022-04-28 01:11 | XMS_ITS | Encounter Summary ---
:1960 Author Organization [facility] [place] [address] Care Team Providers Name Role Phone Hai Gallegos MD Primary Care Provider [phone] Encounter Details Date Type Department Care Team Description 07/23/2015 Office Visit [facility] at [facility] Chroni c low back pain N[facility] [address] [place] [facility] [address] [place] [address] [phone] Social History Tobacco Use Types Packs/Day Years Used Date Current Every Day Smoker Cigarettes 0.5 Smokeless Tobacco: Never Used Sex Assigned at Date Recorded Not on file documented as of this encounter Progress Notes Medardo Lyles MD - 07/23/2015 4:00 PM EST 07/23/2015 [id number] Mary Beth Holman FUNCTIONAL RSTORATION PROGRAM REHABILITATION TRAINING LECTURE Presenter: Medardo Lyles MD or Eleanor Lancaster APRN CC: Back pain ACUTE PAIN MANAGEMENT LECTURE. This one hour lecture begins with a review of the ACUTE PAIN WORKSHEETS completed by the patients on the day of admission to the [facility]. There is an in depth discussion of specific acute pain experiences. Individuals??? thoughts and beliefs about the significance of the pain and how those thoughts determine what actions patients took about their pain are examined. Outcomesare described and discussed. Alternative thought and action patterns are reviewed. Techniques for distinguishing hurt from harm are reviewed along with thought re-framing, relaxation techniques and physical self-care strategies. SELF-CARE POINTS Is this pain different from what I have experienced before? Is there nerve damage: loss of strength, sensation, bowel or bladder control? Self care package: Positive thoughts Relaxation Stretch to relieve pain Keep moving Time Spent: 1 hr documented in this encounter Plan of Treatment Upcoming Encounters Date Type Specialty Care Team Description 08/28/2022 Laboratory Appointment Lab 08/28/2022 Appointment Radiology Yuliana Hernandez MD [facility] [address] [place] [address] (Wo rk) 08/28/2022 Office Visit Gastroenterology Andrew Smith PA [facility] [address] [place] [address] (Wo rk) documented as of this encounter Visit Diagnoses Diagnosis Chronic low back pain Lumbago documented in this encounter Care Teams Building Architect Relationship Specialty Start Date End Date Hai Gallegos MD PCP - General 05/31/10 10/09/[address] [place] [address] documented as of this encounter
--- OUTSIDE RECORDS SUMMARY | 2022-04-28 01:11 | XMS_ITS | Encounter Summary ---
:1960 Author Organization [facility] [place] [address] Care Team Providers Name Role Phone Hai Gallegos MD Primary Care Provider [phone] Reason for Visit Reason Onset Date Comments Other 07/12/2015 Encounter Details Date Type Department Care Team Description 07/12/2015 Telephone Sp[facility] Center at [facility] [place]il[place] [address] Social History Tobacco Use Types Packs/Day Years Used Date Current Every Day Smoker Cigarettes 0.5 Smokeless Tobacco: Never Used Sex Assigned at Date Recorded Not on file documented as of this encounter Miscellaneous Notes Telephone Encounter - Emiliana Botello MSW - 07/12/2015 11:46 AM EST OFFICE OF CARE MANAGEMENT [facility] Telephone call from Ms. Holman confirming arrival time, [facility] location for FRP tomorrow. Also notes, two days ago she woke up with a very painful foot. Went to local ED was diagnosed as strain andgiven crutches. Saw pcp today who encouraged her not to use crutches and she is willing to try. Agreed to update team and that she remains an FRP candidate if she can attempt activities without crutches. Will be staying at [facility]. No further concerns. Update to team regarding foot issue. documented in this encounter Plan of Treatment Upcoming Encounters Date Type Specialty Care Team Description 08/28/2022 Laboratory Appointment Lab 08/28/2022 Appointment Radiology Yuliana Hernandez MD [facility] [address] [place] [address] (Wo rk) 08/28/2022 Office Visit Gastroenterology Andrew Smith PA [facility] [address] [place] [address] (Wo rk) documented as of this encounter Visit Diagnoses Not on filedocumented in this encounter Care Teams Deal Architect Relationship Specialty Start Date End Date Hai Gallegos MD PCP - General 05/31/10 10/09/[address] [place] [address] documented as of this encounter
--- OUTSIDE RECORDS SUMMARY | 2022-04-28 01:11 | XMS_ITS | Encounter Summary ---
:1960 Author Organization [place] [address] Care Team Providers Name Role Phone Hai Gallegos MD Primary Care Provider [phone] Reason for Visit Reason Comments Low Back Pain Encounter Details Date Type Department Care Team Description 07/29/2015 Office Visit Functional Jain Skylar Funes C onic low back pain Program at [facility] OT [address] [place] [address] Social History Tobacco Use Types Packs/Day Years Used Date Current Every Day Smoker Cigarettes 0.5 Smokeless Tobacco: Never Used Sex Assigned at Date Recorded Not on file documented as of this encounter Progress Notes Skylar Funes OT - 07/29/2015 8:01 AM EST [facility] Occupational Therapy Note [facility] Day 13 Protocol Subjective: Ms. Holman returns today for a scheduled follow up appointment with [facility]. She reports feeling stronger and wants to maintain her activity level to be able to control her diabetes as well ascontinuing to work to meet her functional goals. She She also reported that she would have to leave after the AM testing session due to an urgent family medical appointment. Objective: Refer to [facility] protocol for details and explanation of each activity. Ms. Holman participated in the following activities: AM Re-evaluation ( X ) Completed ( ) Not completed PM Unguarded activity, stretch ( ) Completed ( X ) Not completed PM Functional Conditioning ( ) Completed ( X ) Not completed Re-evaluation assessed functional strength, work readiness, and status of goals. Discussed the concept of a work readiness date in preparation for discharge tomorrow. Outlined a specific home lifting program with Ms. Holman for her to continue progressing her functional capacities after discharge. Physical Capacity Test Results: Lifting: ?? (pounds/heart rate)?? First Day of FRP?? End of Program?? 4 Week Follow-Up?? 3 Month Follow-Up?? Repetitive Floor to Waist?115?? /105? Repetitive Waist to Shoulder? 119? 1-Time Maximum?? 15? Carry -2 Handed 50 ft?? 15? Work Demand Level?? Sedentary- Light?? Light ? The results of this testing must be integrated with clinical findings and other observations to derive a final assessment of work capacity. Functional Goals: Functional Goals at Beginning of FRP?? Current Status of Goals?? 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 Has been looking for unit control clerk/diagram clerk type positions through online job search sites Recreational:?? Be able to bend and lift up to 40 lbs to manage flower and vegetable gardens. Walk at least 1 mile for daily exercise without breaks. Resume horseback riding. Be able to sit to drive for up to 2 1/2 hours, to visit son, without taking a break.?? Been able to drive for 1 1/2 hours to and from the program with no more than one stop; has been able to walk a mile, during program activities, without taking a break; not able to try other activities yet Daily Living: Be able to sleep 6-7 hours/night; be able to shovel snow. Be able to stand 30 minutes to wash dishes; be able to clean bathroom, vacuum, mop and sweep floors without requiring breaks; be able to clean house in one day. ?? Was able to shovel a path for dog outside, about 6' x 2'; has not had the opportunity to try other activities yet; has been able to stand for 30 continuous minutes during program activities Vocational Planning: a) Anticipated work readiness date: 08/02/15 i) with restrictions: as per workers compensation form Assessment: Ms. Holman continues to work according to protocol in order to reach her functional goals. She has made substantial progress towards her 3 month functional recovery goals. Please see also short term OT goals in initial note. Plan: Return for follow up with FRP per protocol. Length of Treatment: Ms. Holman participated in program activities from 8:00 a.m. through 2:30 p.m today. During that time, a total of 15 minutes was spent re-testing physical performance and a total of 30 minutes was spent implementing individualized occupational therapy strategies. Care was provided by both an Occupational Therapist and Middle School Principal, BRONWYN Ortega documented in this encounter Plan of Treatment Upcoming Encounters Date Type Specialty Care Team Description 08/28/2022 Laboratory Appointment Lab 08/28/2022 Appointment Radiology Yuliana Hernandez MD [facility] [place] [address] (Wo rk) 08/28/2022 Office Visit Gastroenterology Andrew Smith PA [facility] [address] [place] [address] (Wo rk) documented as of this encounter Visit Diagnoses Diagnosis Chronic low back pain Lumbago documented in this encounter Care Teams Car Record Clerk Relationship Specialty Start Date End Date Hai Gallegos MD PCP - General 05/31/10 10/09/17 [facility] [place] [address] documented as of this encounter
--- OUTSIDE RECORDS SUMMARY | 2022-04-28 01:11 | XMS_ITS | Encounter Summary ---
:1960 Author Organization [facility] [place] [address] Care Team Providers Name Role Phone Hai Gallegos MD Primary Care Provider [phone] Reason for Visit Reason Comments Back Pain Encounter Details Date Type Department Care Team Description 07/14/2015 Office Visit Functional [facility] Juan Carlos Foley, Chronic low back pain Program at [facility] PT [address] [place] [address] [place] [address] Social History Tobacco Use Types Packs/Day Years Used Date Current Every Day Smoker Cigarettes 0.5 Smokeless Tobacco: Never Used Sex Assigned at Date Recorded Not on file documented as of this encounter Progress Notes Juan Carlos Foley, PT - 07/14/2015 12:54 PM EST [facility] Physical Therapy Note [facility] Day 2 Protocol Subjective: Mary Beth returns today for a scheduled follow up appointment with [facility]; she reports continued left foot pain. Objective: Treatment Received: Refer to [facility] protocol for explanation of program/physical therapy details. 1. Therapeutic and Functional Exercise: See [facility] flow sheets for progression. Strengthening and conditioning designed according to personal functional recovery goals and [facility] protocol was: (x) Completed ( ) Not completed 2. Home Exercise Program: Outlined evening routine to compliment program activity. Recommended alternating lower trunk rotation hook-lying, forward bend standing, and backward bend standing x 10 repetitions each along with going for a walk at least 10 minutes duration. 3. Neurological Assessment: (x) No change in status ( ) Change in status Established form and initial resistance levels for strength training components. Assessment: Mary Beth is progressing as planned with quota based training. Plan: Return for follow up with FRP per protocol. Length of visit: Participated in program physical activity from 8:00 a.m. through 2:30 p.m. today. During that time, a total of 45 minutes was spent to develop, monitor, and progress individualized physical therapy strategies. Care was provided by both a physical therapist and physical therapist blacksmith assistant. Cande Wilson PTA documented in this encounter Plan of Treatment Upcoming Encounters Date Type Specialty Care Team Description 08/28/2022 Laboratory Appointment Lab 08/28/2022 Appointment Radiology Yuliana Hernandez MD [facility] [address] [place] [address] (Wo rk) 08/28/2022 Office Visit Gastroenterology Andrew Smith PA [facility] [address] [place] [address] (Wo rk) documented as of this encounter Visit Diagnoses Diagnosis Chronic low back pain Lumbago documented in this encounter Care Teams Service Shop Foreman Relationship Specialty Start Date End Date Hai Gallegos MD PCP - General 05/31/10 10/09/17 [address] [place] [address] documented as of this encounter
--- OUTSIDE RECORDS SUMMARY | 2022-04-28 01:11 | XMS_ITS | Encounter Summary ---
:1960 Author Organization [facility] [place] [address] Care Team Providers Name Role Phone Hai Gallegos MD Primary Care Provider [phone] Reason for Visit Reason Onset Date Comments Other 06/14/2015 Encounter Details Date Type Department Care Team Description 06/14/2015 Telephone Spine Center at [facility] [place]iliana [place] [address] Social History Tobacco Use Types Packs/Day Years Used Date Current Every Day Smoker Cigarettes 0.5 Smokeless Tobacco: Never Used Sex Assigned at Date Recorded Not on file documented as of this encounter Miscellaneous Notes Telephone Encounter - Emiliana Botello MSW - 06/15/2015 3:10 PM EST OFFICE OF CARE MANAGEMENT [facility] Met with Ms. Holman in [facility] clinic to confirm planned July 13-2015 Functional [facility] attendance. Coverage in principle for program and local lodging confirmed by barrel endshake adjuster Anna Mike at ph [phone]/ fax [phone] regarding Ms. Holman's claim# [id number]. Ms. Holman reports she definitely has coverage for care of her mother (granddaughter) will have a car when she is local. Discussed need to pack own lunch and snacks and perhaps request refrigerator in her room as [address] facility where [facility] is does not have a cafeteria. No further concerns identified. PLAN:1) July 13-2015 FRP documented in this encounter Plan of Treatment Upcoming Encounters Date Type Specialty Care Team Description 08/28/2022 Laboratory Appointment Lab 08/28/2022 Appointment Radiology Yuliana Hernandez MD [facility] [address] [place] [address] (Wo rk) 08/28/2022 Office Visit Gastroenterology Andrew Smith PA [facility] [place] [address] (Wo rk) documented as of this encounter Visit Diagnoses Not on filedocumented in this encounter Care Teams Transfer Station Attendant Relationship Specialty Start Date End Date Hai Gallegos MD PCP - General 05/31/10 10/09/[address] [place] [address] documented as of this encounter
--- OUTSIDE RECORDS SUMMARY | 2022-04-28 01:11 | XMS_ITS | Encounter Summary ---
:1960 Author Organization [facility] [place] [address] Care Team Providers Name Role Phone Hai Gallegos MD Primary Care Provider Reason for Visit Reason Comments Back Pain Encounter Details Date Type Department Care Team Description 06/14/2015 Office Visit Spine Center at Juan Carlos Foley, Chronic low back pain [place] [facility] [address], [place] [facility] [address] [place] [address] Social History Tobacco Use Types Packs/Day Years Used Date Current Every Day Smoker Cigarettes 0.5 Smokeless Tobacco: Never Used Sex Assigned at Date Recorded Not on file documented as of this encounter Progress Notes Juan Carlos Foley, PT - 06/14/2015 10:35 AM EST [facility] PHYSICAL THERAPY VISIT Ms. Holman returns for consult in follow up to her recent [facility] and Medical Clearance visit. Please refer to those encounters for additional history and functional recovery goal details. Presents today with the intention of starting FRP in July. Chief complaint: low back and left lower extremity pain with sensory loss and weakness in the left lower extremity. Worse with: Sitting, bending, standing, walking. Better with: Nothing in particular. Functional recovery goals: Confirms those stated at [facility]. Current exercise routine: Daily home exercises, 20 minute session, learned through past PT includingsupine hamstring stretches, side lying single knee to chest stretches. No exercise equipment at home. Gait: unremarkable. Sensation: Intact to light touch both LEs. Reflexes Right Left Patella hyporeflexic hyporeflexic Achilles normal normal Neural tension screening: Seated straight leg raises are full, left increases left buttock pain. LE Strength Right Left Hip flexion 4/5 4/5 Knee extension 5/5 4/5 Dorsiflexion 5/5 5/5 Hallux extension 4/5 4/5 Plantarflexion 3/5 3-/5 Observation / palpation (standing): Subtle rotation right, mildly flattened lordosis. Lumbar spine AROM degrees Forward bend standing 40 Backward bend standing 10 (Right = Left Side Ladson) Repeated movement testing During, After Pre-test pain standing Low back to left foot Flexion standing Increased low back, worse Extension standing Increased low back, worse Pre-test pain lying Low back to left foot Flexion lying Increased low back, not worse Extension lying Increased low back, not worse Additional tests: Rotation in flexion lying knees left increased low back, not worse. Rotation in flexion lying knees right increased low back to left thigh, worse. Assessment: No clear directional preference for rapid symptom reduction. Confirms that she has specific functional recovery goals and is looking forward to [facility]. Plan: Initial self care trial centered around rotation in flexion lying knees left x 10 repetitions four sessions per day, walking twice daily starting at 5 and progressing toward 3 week goal of 15 minutes per session. Knows to discontinue any movement or activity that causes true worsening or peripheralization of symptoms. Will follow up for day 1 testing in the July [facility], then outline additional training and treatment goals. Length of visit: 45 minutes spent in consult with Ms. Holman, testing then outlining specific exercise strategies accordingly. documented in this encounter Plan of Treatment Upcoming Encounters Date Type Specialty Care Team Description 08/28/2022 Laboratory Appointment Lab 08/28/2022 Appointment Radiology Yuliana Hernandez MD [facility] [place] [address] (Wo roz) 08/28/2022 Office Visit Gastroenterology Andrew Smith PA [facility] [place] [address] (Wo roz) documented as of this encounter Visit Diagnoses Diagnosis Chronic low back pain Lumbago documented in this encounter Care Teams Consulting Sales Manager Relationship Specialty Start Date End Date Hai Gallegos MD PCP - General 05/31/10 10/09/[address] [place] [address] documented as of this encounter
--- OUTSIDE RECORDS SUMMARY | 2022-04-28 01:11 | XMS_ITS | Encounter Summary ---
:1960 Author Organization [facility] [place] [address] Care Team Providers Name Role Phone Hai Gallegos MD Primary Care Provider [phone] Reason for Visit Reason Comments Back Pain Encounter Details Date Type Department Care Team Description 07/13/2015 Office Visit Functional [facility] Juan Carlos Foley, Chronic low back pain Program at [facility] PT [address] [place] [address] [place] [address] Social History Tobacco Use Types Packs/Day Years Used Date Current Every Day Smoker Cigarettes 0.5 Smokeless Tobacco: Never Used Sex Assigned at Date Recorded Not on file documented as of this encounter Last Filed Vital Signs Vital Sign Reading Time Taken Comments Blood Pressure 137/75 07/13/2015 1:20 PM EST Pulse 87 07/13/2015 1:20 PM EST Temperature - - Respiratory Rate - - Oxygen Saturation - - Inhaled Oxygen Concentration - - Weight - - Height - - Body Mass Index - - documented in this encounter Progress Notes Juan Carlos Foley, PT - 07/13/2015 12:54 PM EST Functional [facility] Program (Day 1) Physical Therapy Examination Personal Function 3 Month Goals 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 Walk at least 1 mile for daily exercise. Ride horseback. Daily Living: Shovel snow. Wash dishes, vacuum, and sweep floors without requiring breaks. The chief complaint requiring rehabilitation is low back and left lower extremity pain with sensory loss and weakness in the left lower extremity. Anatomic diagnoses have included lower back strain andsciatica. Prior treatments included injections, physical therapy, chiropractic, and medications. Most recent imaging has revealed no clear surgical lesion and surgery has been waived. Additional activity limiting health problems include history of bilateral knee pain, bilateral shoulder pain, left wrist cyst removal, left elbow tendon debridement procedures, diabetes, hypertension, hypercholesterolemia, vertigo, asthma, and neck pain with sensory loss and weakness affecting the left upper extremity. Reported Tolerance (minutes): First Day of FRP End of Program 4 Week Follow-Up 3 Month Follow-Up Sitting 60 Standing 30 Walking 10 Flexibility (degrees): Low Back: First Day of FRP End of Program 4 Week Follow-Up 3 Month Follow-Up Bending Forward 40 Bending Back 10 Straight Leg Raise Right 60 Straight Leg Raise Left 50 Straight Leg Raise-Pelvic 20 First Day of FRP End of Program 4 Week Follow-Up 3 Month Follow-Up Treadmill Endurance (MET level/HR) Reason for stop point Left foot pain Sensation: Light touch reduced left lateral foot. Reflexes Right Left Brachioradialis normal normal Tricep normal normal Patella normal hyporeflexic Achilles hyporeflexic hyporeflexic AROM (degrees) shoulder flexion right 155, left 155. UE Strength Right Left Shoulder abduction 4/5 4/5 Shoulder ER 4/5 4/5 Elbow flexion 5/5 5/5 Elbow extension 5/5 5/5 Wrist ulnar deviation 5/5 4/5 Finger abduction 5/5 4/5 Neural tension screening: Seated straight leg raises are full, left increases low back pain. LE Strength Right Left Hip flexion 4/5 4/5 Knee extension 4/5 4/5 Dorsiflexion 4/5 4/5 Hallux extension 4/5 4/5 Plantarflexion 3/5 3-/5 Neck: First Day of FRP Bending Forward 45 Bending Back 40 Turning Right 65 Turning Left 60 Tilting Right 35 Tilting Left 30 Repeated movement testing: Pre-test low back to left foot pain standing. Flexion sitting decreased, not better. Flexion in left step standing no effect. Assessment Mary Beth Holman has significant range of motion deficits and moderate strength deficits with baseline physical testing. Treadmill testing shows poor tolerance for endurance activities. Posture and gaitobservations reveal some antalgic deviations. Recent mechanical self care trial aggravated left lower extremity symptoms, flexion strategies may be somewhat helpful to manage pain flare ups during the course of functional progression. FRP Goals for Physical Therapy will focus on regaining functional status and functional goals statedabove, but objectively Mary Beth will have: Normal flexibility, normal strength, improved cardiovascularfitness, the ability to self manage this pain problem, and the ability to monitor and progress an ind ividualized HEP. Plan Mary Beth will start with FRP for functional and restorative training. Home exercise instruction will compliment daily conditioning. See enclosed FRP protocol for further details. Total time for testin minutes documented in this encounter Plan of Treatment Upcoming Encounters Date Type Specialty Care Team Description 08/28/2022 Laboratory Appointment Lab 08/28/2022 Appointment Radiology Yuliana Hernandez MD [facility] [address] [place] [address] (Wo rk) 08/28/2022 Office Visit Gastroenterology Andrew Smith PA [facility] [address] [place] [address] (Wo rk) documented as of this encounter Visit Diagnoses Diagnosis Chronic low back pain Lumbago documented in this encounter Care Teams Lmft Relationship Specialty Start Date End Date Hai Gallegos MD PCP - General 05/31/10 10/09/[address] [place] [address] documented as of this encounter
--- OUTSIDE RECORDS SUMMARY | 2022-04-28 01:11 | XMS_ITS | Encounter Summary ---
:1960 Author Organization [facility] [place] [address] Care Team Providers Name Role Phone Hai Gallegos MD Primary Care Provider [phone] Reason for Referral Rehabilitation (Routine) - Closed Specialty Diagnoses / Procedures Referred By Contact Refer red To Contact Orthopaedics Diagnoses Chronic back pain Regulo Cantu MD [facility] [place] [address] [place] [address] Referral ID Status Reason Start Date Expiration Date Visits V isits Requested Authorized [id number] Closed Consult, 01/27/2015 01/27/2016 1 1 Test & Treat Reason for Visit Reason Onset Date Comments Medication Refill 01/27/2015 Encounter Details Date Type Department Care Team Description 01/27/2015 Refill Pain Regulo Cantu MD Chronic back pain [facility] [place] [address] [facility] CLINIC [phone] [place] [address] (Wo rk) Social History Tobacco Use Types Packs/Day Years Used Date Never Assessed Sex Assigned at Date Recorded Not on file documented as of this encounter Plan of Treatment Upcoming Encounters Date Type Specialty Care Team Description 08/28/2022 Laboratory Appointment Lab 08/28/2022 Appointment Radiology Yuliana Hernandez MD [facility] [address] [place] [address] (Wo rk) 08/28/2022 Office Visit Gastroenterology Andrew Smith PA [facility] [address] [place], [place] [address] (Wo rk) Scheduled Referrals Name Type Priority Associated Order Schedule Diagnoses Referral to [facility] Referral Routine Chronic back pain Ordered: Assessment 01/27/2015 documented as of this encounter Visit Diagnoses Diagnosis Chronic back pain Backache, unspecified documented in this encounter Care Teams Natural Gas Plant Supervisor Relationship Specialty Start Date End Date Hai Gallegos MD PCP - General 05/31/10 10/09/[address] [place] [address] documented as of this encounter
--- OUTSIDE RECORDS SUMMARY | 2022-04-28 01:11 | XMS_ITS | Encounter Summary ---
:1960 Author Organization [facility] [place] [address] Care Team Providers Name Role Phone Hai Gallegos MD Primary Care Provider [phone] Reason for Visit Reason Onset Date Comments Other 05/07/2015 Encounter Details Date Type Department Care Team Description 05/07/2015 Telephone Spine Center at [facility] [place]iliana [place] [address] Social History Tobacco Use Types Packs/Day Years Used Date Current Every Day Smoker Cigarettes 0.5 Smokeless Tobacco: Never Used Sex Assigned at Date Recorded Not on file documented as of this encounter Miscellaneous Notes Telephone Encounter - Emiliana Botello MSW - 05/07/2015 2:42 PM EDT OFFICE OF CARE MANAGEMENT [facility] Follow up call to wojciech Jacques [phone]/ fax [phone] claim# [id number] noting that though pre authorization doesn't require response until 05/12, Ms. Holman could start Functional [facility] Program [email or web address] and requesting response to gauge inclination to proceed. Update to patient and heatlhcare team pending response. documented in this encounter Plan of Treatment Upcoming Encounters Date Type Specialty Care Team Description 08/28/2022 Laboratory Appointment Lab 08/28/2022 Appointment Radiology Yuliana Hernandez MD [facility] [place] [address] (Wo rk) 08/28/2022 Office Visit Gastroenterology Andrew Smith PA [facility] [address] [place], [place] [address] (Wo rk) documented as of this encounter Visit Diagnoses Not on filedocumented in this encounter Care Teams Sorter/Assay Tech Relationship Specialty Start Date End Date Hai Gallegos MD PCP - General 05/31/10 10/09/[address] [place] [address] documented as of this encounter
--- OUTSIDE RECORDS SUMMARY | 2022-04-28 01:11 | XMS_ITS | Encounter Summary ---
:1960 Author Organization [facility] [place] [address] Care Team Providers Name Role Phone Hai Gallegos MD Primary Care Provider [phone] Reason for Visit Reason Comments Low Back Pain Encounter Details Date Type Department Care Team Description 07/14/2015 Office Visit Functional Confucianism Skylar Funes C hronic back pain Program at [facility] OT [address] [place] [address] Social History Tobacco Use Types Packs/Day Years Used Date Current Every Day Smoker Cigarettes 0.5 Smokeless Tobacco: Never Used Sex Assigned at Date Recorded Not on file documented as of this encounter Progress Notes Skylar Funes OT - 07/14/2015 12:29 PM EST [facility] Occupational Therapy Note [facility] Day 2 Protocol Subjective: Ms. Holman returns for Day 2 of the Functional Confucianism Program. She reports new exercises and techniques will getting used to, particularly as some techniques here are different than the ones she's been using. Objective: Refer to [facility] protocol for additional explanation of program/occupational therapy details. AM Orientation and Conditioning - Ms. Holman received individual instruction in functional conditioning and was given an opportunity to demonstrate understanding of and ability to perform each task. Introduced straight-leg lifting technique used to increase back strength and decrease fear of re-injury. The rationale for this technique was thoroughly explained so that Ms. Holman understands that, while it is an effective training technique, it will not be the appropriate technique to use for all heavy lifts in the future. Ms. Holman participated in a regular session of conditioning at the conclusion of orientation. ( X ) Completed ( ) Did not complete PM Conditioning - ( X ) Completed ( ) Did not complete Assessment: Ms. Holman demonstrated a good understanding of today's functional conditioning principles and initial exercise protocols. She actively participated with initiation of training components. Plan: Return for follow up with FRP per protocol. Length of Treatment: Ms. Holman participated in program activities form 8:00 a.m. through 3:00 p.m.today. A total of 45 minutes was spent during that time to establish and implement individualized occupational therapy strategies. Care was provided by both an Occupational Therapist and Lamination Builder, BRONWYN Ortega documented in this encounter Plan of Treatment Upcoming Encounters Date Type Specialty Care Team Description 08/28/2022 Laboratory Appointment Lab 08/28/2022 Appointment Radiology Yuliana Hernandez MD [facility] [address] [place] [address] (Wo rk) 08/28/2022 Office Visit Gastroenterology Andrew Smith PA [facility] [address] [place] [address] (Wo rk) documented as of this encounter Visit Diagnoses Diagnosis Chronic back pain Backache, unspecified documented in this encounter Care Teams Wincher Relationship Specialty Start Date End Date Hai Gallegos MD PCP - General 05/31/10 10/09/17 [address] [place] [address] documented as of this encounter
--- OUTSIDE RECORDS SUMMARY | 2022-04-28 01:11 | XMS_ITS | Encounter Summary ---
:1960 Author Organization [facility] [place] [address] Care Team Providers Name Role Phone Hai Gallegos MD Primary Care Provider [phone] Reason for Visit Reason Comments Back Pain Encounter Details Date Type Department Care Team Description 07/22/2015 Office Visit Functional Oriental Orthodox Juan Carlos Foley, Chronic low back pain Program at [facility] PT [address] [place] [address] [place] [address] Social History Tobacco Use Types Packs/Day Years Used Date Current Every Day Smoker Cigarettes 0.5 Smokeless Tobacco: Never Used Sex Assigned at Date Recorded Not on file documented as of this encounter Progress Notes Juan Carlos Foley, PT - 07/22/2015 8:15 AM EST [facility] Physical Therapy Note [facility] Day 8 Protocol Subjective: Mary Beth returns today for a scheduled follow up appointment with [facility]; she reports flexion lying and extension standing strategies are both helpful. Objective: Treatment Received: Refer to [facility] protocol for explanation of program/physical therapy details. 1. Therapeutic and Functional Exercise: See [facility] flow sheets for progression. Strengthening and conditioning designed according to personal functional recovery goals and [facility] protocol was: (x) Completed ( ) Not completed 2. Home Exercise Program: Reviewed and modified current home exercise program. The Home Exercise Program was: (x) Unchanged ( ) Modified 3. Neurological Assessment: (x) No change in status ( ) Change in status 4. Stretching and Relaxation Training Sessions: (x) Completed ( ) Not completed Discussed context situations where flexion lying may prove useful if standing or walking has aggravated and extension standing may prove useful if bending or sitting has aggravated. Assessment: Mary Beth is progressing as planned [...] both a physical therapist and physical therapist housing assistant property manager. Cande Wilson PTA documented in this encounter Plan of Treatment Upcoming Encounters Date Type Specialty Care Team Description 08/28/2022 Laboratory Appointment Lab 08/28/2022 Appointment Radiology Yuliana Hernandez MD [facility] [address] [place] [address] (Wo rk) 08/28/2022 Office Visit Gastroenterology Andrew Smith PA [facility] [address] [place] [address] (Wo rk) documented as of this encounter Visit Diagnoses Diagnosis Chronic low back pain Lumbago documented in this encounter Care Teams Mechanical Operator Relationship Specialty Start Date End Date Hai Gallegos MD PCP - General 05/31/10 10/09/17 [address] [place] [address] documented as of this encounter
--- OUTSIDE RECORDS SUMMARY | 2022-04-28 01:11 | XMS_ITS | Encounter Summary ---
:1960 Author Organization [facility] [place] [address] Care Team Providers Name Role Phone Hai Gallegos MD Primary Care Provider [phone] Encounter Details Date Type Department Care Team Description 07/27/2015 Office Visit [facility] at [facility] Chroni c low back pain Nomi REBOLLAR [facility] [address] [place] [facility] [address] [place] [address] [phone] Social History Tobacco Use Types Packs/Day Years Used Date Current Every Day Smoker Cigarettes 0.5 Smokeless Tobacco: Never Used Sex Assigned at Date Recorded Not on file documented as of this encounter Progress Notes Medardo Lyles MD - 07/27/2015 4:05 PM EST 07/27/2015 [id number] Mary Beth Holman CC: Back pain FUNCTIONAL RSTORATION PROGRAM REHABILITATION TRAINING LECTURE Presenter: Medardo Lyles MD or Eleanor Lancaster APRN Lifestyle and wellness discussion The purpose of this discussion is to identify modifiable and non modifiable factors that influencehealth and wellness. We will define wellness and health, discuss non modifiable risk factors of morbidity and mortality and modifiable factors. We will then discuss strategies for maximal management of non modifiable factors. Discussion will include diet and exercise recommendations, sleep and stress management. All participants will be encouraged to participate and share helpful coping strategies. Time Spent: 1 hr. documented in this encounter Plan of Treatment Upcoming Encounters Date Type Specialty Care Team Description 08/28/2022 Laboratory Appointment Lab 08/28/2022 Appointment Radiology Yuliana Hernandez MD [facility] [address] [place] [address] (Wo rk) 08/28/2022 Office Visit Gastroenterology Andrew Smith PA [facility] [address] [place] [address] (Wo rk) documented as of this encounter Visit Diagnoses Diagnosis Chronic low back pain Lumbago documented in this encounter Care Teams Value Stream Leader Relationship Specialty Start Date End Date Hai Gallegos MD PCP - General 05/31/10 10/09/17 [address] [place] [address] documented as of this encounter
--- OUTSIDE RECORDS SUMMARY | 2022-04-28 01:11 | XMS_ITS | Encounter Summary ---
:1960 Author Organization [facility] [place] [address] Care Team Providers Name Role Phone Hai Gallegos MD Primary Care Provider [phone] Reason for Visit Reason Onset Date Comments Other 05/31/2015 Encounter Details Date Type Department Care Team Description 05/31/2015 Telephone Spine Center at [facility] Emiliana [place] [address] Social History Tobacco Use Types Packs/Day Years Used Date Current Every Day Smoker Cigarettes 0.5 Smokeless Tobacco: Never Used Sex Assigned at Date Recorded Not on file documented as of this encounter Miscellaneous Notes Telephone Encounter - Emiliana Botello MSW - 05/31/2015 4:51 PM EST OFFICE OF CARE MANAGEMENT CCM Update from Ms. Holman that unfortunately she has not been able to organize care for her elderly mother on short notice before the holidays and will need to defer until July Functional Latter-Day program. I have wished her well and requested nursing scheduler to have her in for interim PT/OT visit to clarify goals and/or home program. In the meantime update to property loss insurance claim adjuster Anna Mike at [phone]/ fax [phone] regarding Ms. Holman's claim# [id number]. PLAN: 1) monitor for July 2015 FRP documented in this encounter Plan of Treatment Upcoming Encounters Date Type Specialty Care Team Description 08/28/2022 Laboratory Appointment Lab 08/28/2022 Appointment Radiology Yuliana Hernandez MD [facility] [address] [place] [address] (Wo rk) 08/28/2022 Office Visit Gastroenterology Andrew Smith PA [facility] [address] [place] [address] (Wo rk) documented as of this encounter Visit Diagnoses Not on filedocumented in this encounter Care Teams Microstrategy Architect Relationship Specialty Start Date End Date Hai Gallegos MD PCP - General 05/31/10 10/09/[address] [place] [address] documented as of this encounter
--- OUTSIDE RECORDS SUMMARY | 2022-04-28 01:11 | XMS_ITS | Encounter Summary ---
:1960 Author Organization [facility] [place] [address] Care Team Providers Name Role Phone Hai Gallegos MD Primary Care Provider [phone] Reason for Visit Reason Onset Date Comments Other 04/21/2015 Encounter Details Date Type Department Care Team Description 04/21/2015 Telephone Spine Center at [facility] [place]iliana [place] [address] Social History Tobacco Use Types Packs/Day Years Used Date Current Every Day Smoker Cigarettes 0.5 Smokeless Tobacco: Never Used Sex Assigned at Date Recorded Not on file documented as of this encounter Miscellaneous Notes Telephone Encounter - Emiliana Botello MSW - 04/21/2015 9:24 AM EDT OFFICE OF CARE MANAGEMENT [facility] Medical Providers Pre Authorization Request from Dr. Lyles faxed to Aimee Harman [phone] / fax [phone] who is out until 04/26 her covering major case detective Ralph Alexander is also mentioned so as to hopefully start the 14 day answer or PINKY clock before 04/26. Copy to medical record, copy held in [facility] Center. documented in this encounter Plan of Treatment Upcoming Encounters Date Type Specialty Care Team Description 08/28/2022 Laboratory Appointment Lab 08/28/2022 Appointment Radiology Yuliana Hernandez MD [facility] [address] [place], [place] [address] (Wo rk) 08/28/2022 Office Visit Gastroenterology Andrew Smith PA [facility] [address] [place], [place] [address] (Wo rk) documented as of this encounter Visit Diagnoses Not on filedocumented in this encounter Care Teams Ferruler Relationship Specialty Start Date End Date Hai Gallegos MD PCP - General 05/31/10 10/09/[address] [place] [address] documented as of this encounter
--- OUTSIDE RECORDS SUMMARY | 2022-04-28 01:11 | XMS_ITS | Encounter Summary ---
:1960 Author Organization [facility] [place] [address] Care Team Providers Name Role Phone Hai Gallegos MD Primary Care Provider [phone] Reason for Visit Reason Onset Date Comments Other 07/29/2015 Encounter Details Date Type Department Care Team Description 07/29/2015 Telephone Spine Center at [facility] [place]iliana [place] [address] Social History Tobacco Use Types Packs/Day Years Used Date Current Every Day Smoker Cigarettes 0.5 Smokeless Tobacco: Never Used Sex Assigned at Date Recorded Not on file documented as of this encounter Miscellaneous Notes Telephone Encounter - Emiliana Botello MSW - 07/29/2015 12:09 PM EST OFFICE OF CARE MANAGEMENT [facility] Exchanged messages and updates with Susan Rhodes [facility] Disability Management ph regarding confirmation if she was re activated for voc by wad blanking press 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 Holman if she is the contact. Update to patient and healthcare team. documented in this encounter Plan of Treatment Upcoming Encounters Date Type Specialty Care Team Description 08/28/2022 Laboratory Appointment Lab 08/28/2022 Appointment Radiology Yuliana Hernandez MD [facility] [address] [place], [place] [address] (Wo rk) 08/28/2022 Office Visit Gastroenterology Andrew Smith PA [facility] [address] [place] [address] (Wo rk) documented as of this encounter Visit Diagnoses Not on filedocumented in this encounter Care Teams Telephone Sterilizer Relationship Specialty Start Date End Date Hai Gallegos MD PCP - General 05/31/10 10/09/[address] [place] [place] [address] documented as of this encounter
--- OUTSIDE RECORDS SUMMARY | 2022-04-28 01:11 | XMS_ITS | Encounter Summary ---
:1960 Author Organization [facility] [place] [address] Care Team Providers Name Role Phone Hai Gallegos MD Primary Care Provider [phone] Reason for Visit Reason Comments Back Pain Encounter Details Date Type Department Care Team Description 07/30/2015 Office Visit Functional Mosque Juan Carlos Foley, Chronic low back pain Program at [facility] PT [address] [place] [address] [place] [address] Social History Tobacco Use Types Packs/Day Years Used Date Current Every Day Smoker Cigarettes 0.5 Smokeless Tobacco: Never Used Sex Assigned at Date Recorded Not on file documented as of this encounter Progress Notes Juan Carlos Foley, PT - 07/30/2015 7:45 AM EST [facility] Physical Therapy Note [facility] Day 14 Protocol Subjective: Mary Beth returns today for a scheduled follow up appointment with [facility] and she reports beingcomfortable with the exercise plan that we have established. Objective: Treatment Received: Refer to [facility] protocol for explanation of program/physical therapy details. Home Exercise Program: Finalized strategies for continued independent self care. Issued [facility] exercise video and reviewed components that would be appropriate for her home program. Assessment: Mary Beth is able to monitor and progress her own home program at this point. Plan: Recommend post-program visit with Cande Wilson PTA in one week. Utilize that session to perform high priority components of flexibility, strength, and endurance maintenance program as a test forthe effectiveness of Mary Beth's initial self care routine. Then return for 4 week follow-up testing with FRP per protocol. Length of visit: 15 minutes spent to finalize exercise strategies. documented in this encounter Plan of Treatment Upcoming Encounters Date Type Specialty Care Team Description 08/28/2022 Laboratory Appointment Lab 08/28/2022 Appointment Radiology Yuliana Hernandez MD [facility] [place] [address] [place] [address] (Wo rk) 08/28/2022 Office Visit Gastroenterology Andrew Smith PA [facility] er [address] [place] [address] (Wo rk) documented as of this encounter Visit Diagnoses Diagnosis Chronic low back pain Lumbago documented in this encounter Care Teams Homeland Security Program Specialist Relationship Specialty Start Date End Date Hai Gallegos MD PCP - General 05/31/10 10/09/17 [address] [facility] [place] [address] documented as of this encounter
--- OUTSIDE RECORDS SUMMARY | 2022-04-28 01:11 | XMS_ITS | Encounter Summary ---
:1960 Author Organization [facility] [place] [address] Care Team Providers Name Role Phone Hai Gallegos MD Primary Care Provider [phone] Reason for Visit Reason Comments Back Pain Encounter Details Date Type Department Care Team Description 07/23/2015 Office Visit Functional Roman Catholic Juan Carlos Foley, Chronic low back pain Program at [facility] PT [address] [place] [address] [place] [address] Social History Tobacco Use Types Packs/Day Years Used Date Current Every Day Smoker Cigarettes 0.5 Smokeless Tobacco: Never Used Sex Assigned at Date Recorded Not on file documented as of this encounter Progress Notes Juan Carlos Foley, PT - 07/23/2015 10:26 AM EST [facility] Physical Therapy Note [facility] Day 9 Protocol Subjective: Mary Beth returns today for a scheduled follow up appointment with [facility]; she reports getting easily fatigued with 3 minute trial of elliptical today but no symptoms aggravated during. Objective: Treatment Received: Refer to [facility] protocol for explanation of program/physical therapy details. 1. Therapeutic and Functional Exercise: See [facility] flow sheets for progression. Strengthening and conditioning designed according to personal functional recovery goals and [facility] protocol was: (x) Completed ( ) Not completed 2. Home Exercise Program: Reviewed and modified current home exercise program. The Home Exercise Program was: (x) Unchanged ( ) Modified 3. Neurological Assessment: (x) No change in status ( ) Change in status 4. Stretching and Relaxation Training Sessions: (x) Completed ( ) Not completed Discussed self care concepts including posture, body mechanics, maintenance exercise, and pain flare-up management. Issued and reviewed pictures of exercise components utilized during the program. Agreed that she will complete the Home Exercise Planning Homework this weekend as preparation for developing an individualized plan next week. Assessment: Mary Beth is progressing as planned [...] both a physical therapist and physical therapist electrician assistant. Cande Wilson PTA documented in this encounter Plan of Treatment Upcoming Encounters Date Type Specialty Care Team Description 08/28/2022 Laboratory Appointment Lab 08/28/2022 Appointment Radiology Yuliana Hernandez MD [facility] [address] [place] [address] (Wo rk) 08/28/2022 Office Visit Gastroenterology Andrew Smith PA [facility] [address] [place] [address] (Wo rk) documented as of this encounter Visit Diagnoses Diagnosis Chronic low back pain Lumbago documented in this encounter Care Teams Cut Off Tender Glass Relationship Specialty Start Date End Date Hai Gallegos MD PCP - General 05/31/10 10/09/17 4 [place] [address] documented as of this encounter
--- OUTSIDE RECORDS SUMMARY | 2022-04-28 01:11 | XMS_ITS | Encounter Summary ---
:1960 Author [address] [facility] [place] [address] Care Team Providers Name Role Phone Hai Gallegos MD Primary Care Provider [phone] Reason for Visit Reason Onset Date Comments Other 07/07/2015 Encounter Details Date Type Department Care Team Description 07/07/2015 Telephone Spine Center at [facility] [place] [address] Social History Tobacco Use Types Packs/Day Years Used Date Current Every Day Smoker Cigarettes 0.5 Smokeless Tobacco: Never Used Sex Assigned at Date Recorded Not on file documented as of this encounter Miscellaneous Notes Telephone Encounter - Emiliana Botello MSW - 07/07/2015 12:59 PM EST OFFICE OF CARE MANAGEMENT CCM Update from compensation adjuster Anna Mike at ph [phone]/ fax [phone] that she has confirmed w Ms. Holman planned attendance will be direct booking lodging week by week at the [facility]. No job to return to. documented in this encounter Plan of Treatment Upcoming Encounters Date Type Specialty Care Team Description 08/28/2022 Laboratory Appointment Lab 08/28/2022 Appointment Radiology Yuliana Hernandez MD [facility] [address] [place] [address] (Wo rk) 08/28/2022 Office Visit Gastroenterology Andrew Smith PA [facility] [place], [place] [address] (Wo rk) documented as of this encounter Visit Diagnoses Not on filedocumented in this encounter Care Teams Multi Needle Machine Operator Relationship Specialty Start Date End Date Hai Gallegos MD PCP - General 05/31/10 10/09/[address] [place] [address] documented as of this encounter
--- OUTSIDE RECORDS SUMMARY | 2022-04-28 01:11 | XMS_ITS | Encounter Summary ---
:1960 Author Organization [facility] [place] [address] Care Team Providers Name Role Phone Hai Gallegos MD Primary Care Provider [phone] Reason for Visit Reason Comments Low Back Pain Encounter Details Date Type Department Care Team Description 07/21/2015 Office Visit Functional Buddhism Skylar Funes C [facility] low back pain Program at [facility] OT [address] [place] [address] Social History Tobacco Use Types Packs/Day Years Used Date Current Every Day Smoker Cigarettes 0.5 Smokeless Tobacco: Never Used Sex Assigned at Date Recorded Not on file documented as of this encounter Progress Notes Skylar Funes OT - 07/21/2015 7:59 AM EST [facility] Occupational Therapy Note [facility] Protocol Subjective: Ms. Holman is attending day 7 of the program. She reports still feeling a little weak from being out sick with a stomach virus, however she was able to eat toast this morning and is feeling better. She reported concerns about being out of work, and that she was still interested in findingwork within her physical capacities. She stated that she had worked with her Vocational Rehabilitation Counselor to write her resume. Objective: Refer to [facility] protocol for details and explanation of each activity. Ms. Holman participated in the following activities: 1. AM Functional Conditioning ??? PM Functional Conditioning: circuit ??? Stretching and Walk ??? Lifting re-evaluation Functional Strength Testing: Day 1 Day 7 Repetitive Floor to Waist (PILE) 20/120 Individualized Treatment: Increased resistance levels of functional conditioning exercises accordingto personal recovery goals. Completed midway functional strength testing. Used graphs as a visual aide to discuss daily progression of conditioning exercises toward 3 week strength training goals. Willcontinue to use graphs to map daily progress toward these goals. Patient Education: Reviewed job hunting skills and hints to use after an injury and rehabilitation. Discussed topics such as employers' obligations, vocational rehabilitation, writing resumes and coverletters, and the application and interview process. Also reviewed the [place] with Disabilities Actas it pertains to job application. Ms. Holman participated actively in progression of function. Assessment: Ms. Holman is progressing according to [facility] protocol and her functional goals as noted in initial OT evaluation report on Day 1. Objective testing today confirms she has made some gains thus far in terms of her physical capacities. Plan: Return for follow up with [facility] per protocol. Length of Treatment: Ms. Holman participated in program activities from 8:00 a.m. through 2:30 p.m.today. A total of 45 minutes were spent during that time to implement individualized occupational therapy strategies. Care was provided by both an Occupational Therapist and Apprentice Carpenter, BRONWYN Ortega documented in this encounter Plan of Treatment Upcoming Encounters Date Type Specialty Care Team Description 08/28/2022 Laboratory Appointment Lab 08/28/2022 Appointment Radiology Yuliana Hernandez MD [facility] [place] [address] (Wo roz) 08/28/2022 Office Visit Gastroenterology Andrew Smith PA [facility] [place] [address] (Wo roz) documented as of this encounter Visit Diagnoses Diagnosis Chronic low back pain Lumbago documented in this encounter Care Teams Data Examination Clerk Relationship Specialty Start Date End Date Hai Gallegos MD PCP - General 05/31/10 10/09/17 [address] [place] [address] documented as of this encounter
--- OUTSIDE RECORDS SUMMARY | 2022-04-28 01:11 | XMS_ITS | Encounter Summary ---
:1960 [place] [address] Care Team Providers Name Role Phone Hai Gallegos MD Primary Care Provider [phone] Encounter Details Date Type Department Care Team Description 07/30/2015 Office Visit Functional Oriental Orthodox Medardo Lyles, Chronic low back pain Program at [facility] [address] [place] [address] [address] [place] [id number] Social History Tobacco Use Types Packs/Day Years Used Date Current Every Day Smoker Cigarettes 0.5 Smokeless Tobacco: Never Used Sex Assigned at Date Recorded Not on file documented as of this encounter Progress Notes Medardo Lyles MD - 07/30/2015 8:08 AM EST [facility] [place] [address] Functional Oriental Orthodox Program Discharge Summary Ms. Mary Beth Holman [id number] 07/30/2015 Cande Yarbrough, am compiling the information for Dr. Lyles to discuss and review with the patient. Ms. Holman attended the Functional Oriental Orthodox Program (FRP) from July 13 to July 30, 2015. The FRP combines progressive physical training, pain and disability education, behavioral medicine and vocational/activity planning geared toward achieving personal functional goals. I met with Ms. Holman for 30 minutes today to discuss her discharge and progress in the Functional Oriental Orthodox Program as written in this note. We discussed medical progress, imaging, surgical decision making, current pain and functional status, compared that status to personal recovery goals and established the plan ofcare accordingly as below. Ms. Holman attended the FRP for 11 of 14 days and participation level was consistent and high. Use of self care skills includes stretching, strengthening, cardiovascular conditioning, relaxation and pacing skills. The chief complaint requiring rehabilitation is low [...] FRP was remarkable for the following outcomes. Results of the Touch Pad Questionnaires You Filled out: ? First Day of FRP?? End of FRP?? 4 Week Follow-up?? 3 Month Follow-up?? Today???s Pain Level (0-10)?? 8?? 7? Past Week???s Pain Level (0-10)?? 7?? 8? Quality of?? Sleep (lower = better)?? 17?16 ? Fear of Pain Caused by Work Related Activity ?? (maximum = 42)?? 32?25 ? Fear of Pain Caused by Non-work Activity ?? (maximum = 24)?? 15?3 ? Total Fear of Pain ?? (maximum = 66)?? 47?? 28? Anxiety (score/range)?? 3/Normal?13/moderate ? Stress (score/range)?? 12/Normal?16/mild ? Depression (greater than 19 = depressed)?? 17?29 ? Disability (past month, lower = better)?? 38?26 ? Reported Tolerance (minutes):? First Day of FRP? End of Program? 4 Week Follow-Up? 3 Month Follow-Up? Sitting? 60?60? Standing? 30?45? Walking? 10?60? Flexibility (degrees): Neck: First Day of FRP End of FRP 4 Week Follow-up 3 Month Follow-up Bending Forward Bending Back Turning Right Turning Left Tilting Right Tilting Left Upper Back: First Day of FRP End of FRP 4 Week Follow-up 3 Month Follow-up Bending Forward Bending Back Turning Right Turning Left Bending Right Bending Left Flexibility (degrees): ? Low Back:? First Day of FRP? End of Program? 4 Week Follow-Up? 3 Month Follow-Up? Bending Forward? 40?65? Bending Back? 10? 15? Straight Leg Raise Right? 60?60? Straight Leg Raise Left? 50? 55? Straight Leg Raise-Pelvic? 20? 0? First Day of FRP? End of Program? 4 Week Follow-Up? 3 Month Follow-Up? Treadmill Endurance (MET level/HR)?7/138? Reason for stop point? Left foot pain?Low back pain? Physical Capacity Test Results: Lifting: ?? (pounds/heart rate)? First Day of FRP? End of Program? 4 Week Follow- Up? 3 Month Follow-Up? Repetitive Floor to Waist?10115? 25/105? Repetitive Waist to Shoulder? 10/114? 20/119? 1-Time Maximum? 15? 30/115? Carry -2 Handed 50 ft? 15? 115? Work Demand Level? Sedentary- Light? Light ? Functional Goals: Functional Goals at Beginning of FRP? Current Status of Goals? 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 Has been looking for wood milling machine operator/clerk of superior court type positions through online job search sites?? Recreational:?? Be able to bend and lift up to 40 lbs to manage flower and vegetable gardens. Walk at least 1 mile for daily exercise without breaks. Resume horseback riding. Be able to sit to drive for up to 2 1/2 hours, to visit son, without taking a break.? Been able to drive for 1 1/2 hours to and from the program with no more than one stop; has been able to walk a mile, during program activities, without taking a break; not able to try other activities yet?? Daily Living: Be able to sleep 6-7 hours/night; be able to shovel snow. Be able to stand 30 minutes to wash dishes; be able to clean bathroom, vacuum, mop and sweep floors without requiring breaks; be able to clean house in one day. ? Was able to shovel a path for dog outside, about 6' x 2'; has not had the opportunity to try other activities yet; has been able to stand for 30 continuous minutes during program activities? NOTE: Discharge Plan Self-care exercise program ?i) Relapse prevention:?? Walking, stretching, relaxation techniques.?ii) Increasing physical capacities:?? Home lifting program.? 1. Counseling: To resume counseling 2. Vocational planning a) Anticipated work readiness date: 08/02/15 i) with restriction: See [place] Worker's Compensation Form 3. Follow-up a) Primary Care: HAI GALLEGOS MD b) [facility] i) Post-program date: 08/04/2015. Please plan to arrive at [facility] for your appointment with Cande Wilson PTA, at 10:00. ii) 4-week follow-up date: 09/09/2015. Please plan to arrive at the [facility] () for your appointment with Juan Carlos Foley PT, at 1:00. iii) MD/HAND ALTERATIONS SEAMSTRESS visit date: 09/09/2015 at 2:00 v) Please plan for a 1-year survey follow-up. c) Medication Management: HAI GALLEGOS MD I, Medardo Lyles, have reviewed the above compiled information and agree with its accuracy. I spentthe the entire 25 minutes with the patient discussing progress, goals and plans as documented in this note. cc: Mary Beth Holman [address] [place] [id number] HAI GALLEGOS MD [address] [place] [address] Ms. Susan Rhodes VRS Disability Management Anna Mike claim# [id number] fax [phone] regarding documented in this encounter Plan of Treatment Upcoming Encounters Date Type Specialty Care Team Description 08/28/2022 Laboratory Appointment Lab 08/28/2022 Appointment Radiology Yuliana Hernandez MD [facility] [address] [place] [address] (Wo rk) 08/28/2022 Office Visit Gastroenterology Andrew Smith PA [facility] [address] [place] [address] (Wo rk) documented as of this encounter Visit Diagnoses Diagnosis Chronic low back pain Lumbago documented in this encounter Care Teams Building Mechanic Relationship Specialty Start Date End Date Hai Gallegos MD PCP - General 05/31/10 10/09/[address] [place] [address] documented as of this encounter
--- OUTSIDE RECORDS SUMMARY | 2022-04-28 01:11 | XMS_ITS | Encounter Summary ---
:1960 Author Organization [facility] [place] [address] Care Team Providers Name Role Phone Hai Gallegos MD Primary Care Provider [phone] Reason for Visit Reason Comments Back Pain Encounter Details Date Type Department Care Team Description 07/15/2015 Office Visit Functional Christianity Juan Carlos Foley, Chronic low back pain Program at [facility] PT [address] [place] [address] [place] [address] Social History Tobacco Use Types Packs/Day Years Used Date Current Every Day Smoker Cigarettes 0.5 Smokeless Tobacco: Never Used Sex Assigned at Date Recorded Not on file documented as of this encounter Progress Notes Juan Carlos Foley, PT - 07/15/2015 10:39 AM EST [facility] Physical Therapy Note [facility] Day 3 Protocol Subjective: Mary Beth returns today for a scheduled follow up appointment with [facility]; she reports continued low back, left thigh, left leg, and left dorsal and lateral foot pain. Left foot pain seemed to be aggravated gradually with trials of rotation in flexion lying knees left strategies as discussed at 06/14/15 pre- program visit. Discontinued those exercises after one week but then further aggravated left foot last week while walking in home with no specific moment of injury or fall as the cause. Objective: Treatment Received: Refer to [facility] protocol for explanation of program/physical therapy details. 1. Therapeutic and Functional Exercise: See [facility] flow sheets for progression. Strengthening and conditioning designed according to personal functional recovery goals and FRP protocol was: (x) Completed ( ) Not completed 2. Home Exercise Program: Reviewed and modified current home exercise program. The Home Exercise Program was: (x) Unchanged ( ) Modified 3. Neurological Assessment: (x) No change in status ( ) Change in status 4. Stretching and Relaxation Training Sessions: (x) Completed ( ) Not completed Repeated movement testing: Pre-test low back to left foot pain standing. Flexion lying decreased, better. Assessment: Mary Beth is progressing as planned with quota based training. Agreed that she will trial flexion lying strategies x 10 repetitions every 2 hours while awake to compliment program activity overthe next two days. Plan: Return for follow up with FRP per protocol. Length of visit: Participated in program physical activity from 8:00 a.m. through 2:30 p.m. today. During that time, a total of 45 minutes was spent to develop, monitor, and progress individualized physical therapy strategies. Care was provided by both a physical therapist and physical therapist certified nursing assistant. Cande Wilson PTA documented in this encounter Plan of Treatment Upcoming Encounters Date Type Specialty Care Team Description 08/28/2022 Laboratory Appointment Lab 08/28/2022 Appointment Radiology Yuliana Hernandez MD [facility] [address] [place] [address] (Wo roz) 08/28/2022 Office Visit Gastroenterology Andrew Smith PA [facility] [address] [place] 0375 (Wo rk) documented as of this encounter Visit Diagnoses Diagnosis Chronic low back pain Lumbago documented in this encounter Care Teams Pharmacy Benefit Manager Relationship Specialty Start Date End Date Hai Gallegos MD PCP - General 05/31/10 10/09/17 [address] [place] [address] documented as of this encounter
--- OUTSIDE RECORDS SUMMARY | 2022-04-28 01:11 | XMS_ITS | Encounter Summary ---
:1960 Author Organization [facility] [place] [address] Care Team Providers Name Role Phone Hai Gallegos MD Primary Care Provider [phone] Encounter Details Date Type Department Care Team Description 07/22/2015 Office Visit Functional Hinduism Medardo Lyles, Chronic low back pain Program at [facility] [address] [place] [address] [address] [place], [place] [address] Social History Tobacco Use Types Packs/Day Years Used Date Current Every Day Smoker Cigarettes 0.5 Smokeless Tobacco: Never Used Sex Assigned at Date Recorded Not on file documented as of this encounter Progress Notes Medardo Lyles MD - 07/22/2015 9:50 AM EST This is the goals and health barriers follow-up visit and note for continued participation in the [facility] Functional Hinduism Program. We spent 25 minutes discussing functional progress and symptom history in the context of quota based training toward personal functional goal achievement. The importance of developing a practical maintenance program for post discharge self care was stressed Extensive discussion of sleep, mood and addiction challenges and role of relaxation response training going forward. Planning around vocational rehab program, need to connect with her nurse case manager for future planning within her capacities.Left ankle sprain reviewed: no current swelling, still has ATFL t ension pain. Strategies for exercise reviewed. documented in this encounter Plan of Treatment Upcoming Encounters Date Type Specialty Care Team Description 08/28/2022 Laboratory Appointment Lab 08/28/2022 Appointment Radiology Yuliana Hernandez MD [facility] [place] [address] (Wo rk) 08/28/2022 Office Visit Gastroenterology Andrew Smith PA [facility] [place] [address] (Wo rk) documented as of this encounter Visit Diagnoses Diagnosis Chronic low back pain Lumbago documented in this encounter Care Teams Behavioral Science Chair Relationship Specialty Start Date End Date Hai Gallegos MD PCP - General 05/31/10 10/09/17 [address] [place] [address] documented as of this encounter
--- OUTSIDE RECORDS SUMMARY | 2022-04-28 01:11 | XMS_ITS | Encounter Summary ---
:1960 Author Organization [facility] [place] [address] Care Team Providers Name Role Phone Hai Gallegos MD Primary Care Provider [phone] Reason for Visit Reason Comments Low Back Pain Encounter Details Date Type Department Care Team Description 07/15/2015 Office Visit Functional Gnosticist Skylar Funes C onic low back pain Program at [facility] OT [address] [place] [address] Social History Tobacco Use Types Packs/Day Years Used Date Current Every Day Smoker Cigarettes 0.5 Smokeless Tobacco: Never Used Sex Assigned at Date Recorded Not on file documented as of this encounter Progress Notes Skylar Funes, HODAN - 07/15/2015 7:48 AM EST [facility] Occupational Therapy Note [facility] Day 3 Protocol Subjective: Ms. Holman returns today for a scheduled follow up appointment with [facility]. She reports that the evening stretching exercises did not seem to help. She reported having some difficulty with the straight-leg crate lifting today, but that she would get it done. Objective: Refer to [facility] protocol for details and explanation of each activity. Ms. Holman participated in the following activities: Functional Therapy: 1. AM Session of functional conditioning ( X ) Completed ( ) Not Completed 2. PM Session of functional conditioning ( X ) Completed ( ) Not Completed Individualized Treatment: Increased resistance levels of functional conditioning exercises accordingto personal recovery goals. Increased repetitions on frequent lifts from 10 to 20 each session. Please see goals in initial OT evaluation [...] provided by both an Occupational Therapist and Bracelet And Brooch Maker, BRONWYN Ortega documented in this encounter Plan of Treatment Upcoming Encounters Date Type Specialty Care Team Description 08/28/2022 Laboratory Appointment Lab 08/28/2022 Appointment Radiology Yuliana Hernandez MD [facility] [address] [place] [address] (Wo rk) 08/28/2022 Office Visit Gastroenterology Andrew Smith PA [facility] [address] [place] [address] (Wo rk) documented as of this encounter Visit Diagnoses Diagnosis Chronic low back pain Lumbago documented in this encounter Care Teams Laborer Bituminous Paving Relationship Specialty Start Date End Date Hai Gallegos MD PCP - General 05/31/10 10/09/17 [address] [place] [address] documented as of this encounter
--- OUTSIDE RECORDS SUMMARY | 2022-04-28 01:11 | XMS_ITS | Encounter Summary ---
:1960 Author Organization [facility] [place] [address] Care Team Providers Name Role Phone Hai Gallegos MD Primary Care Provider [phone] Reason for Visit Reason Comments Back Pain Encounter Details Date Type Department Care Team Description 07/27/2015 Office Visit Functional Pentecostalism Juan Carlos Foley, Chronic low back pain Program at [facility] PT [address] [place] [address] [place] [address] Social History Tobacco Use Types Packs/Day Years Used Date Current Every Day Smoker Cigarettes 0.5 Smokeless Tobacco: Never Used Sex Assigned at Date Recorded Not on file documented as of this encounter Progress Notes Juan Carlos Foley, PT - 07/27/2015 10:28 AM EST [facility] Physical Therapy Note [facility] Day 11 Protocol Subjective: Mary Beth returns today for a scheduled follow up appointment with [facility]; she reports having access to some exercise equipment and will work out with friends to stay consistent. Objective: Treatment Received: Refer to [facility] protocol for explanation of program/physical therapy details. 1. Therapeutic and Functional Exercise: See [facility] flow sheets for progression. Strengthening and conditioning designed according to personal functional recovery goals and [facility] protocol was: (x) Completed ( ) Not completed 2. Home Exercise Program: Reviewed and modified current home exercise program. The Home Exercise Program was: (x) Unchanged ( ) Modified 3. Neurological Assessment: (x) No change in status ( ) Change in status 4. Stretching and Relaxation Training Sessions: (x) Completed ( ) Not completed Outlined a weekly schedule for self care exercise. 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 Assessment: Mary Beth is progressing as planned [...] both a physical therapist and physical therapist orthodontic technician assistant. Cande Wilson PTA documented in this encounter Plan of Treatment Upcoming Encounters Date Type Specialty Care Team Description 08/28/2022 Laboratory Appointment Lab 08/28/2022 Appointment Radiology Yuliana Hernandez MD [facility] [address] [place] [address] (Wo rk) 08/28/2022 Office Visit Gastroenterology Andrew Smith PA [facility] [address] [place] [address] (Wo rk) documented as of this encounter Visit Diagnoses Diagnosis Chronic low back pain Lumbago documented in this encounter Care Teams Dance Artist Relationship Specialty Start Date End Date Hai Gallegos MD PCP - General 05/31/10 10/09/17 [address] [place] [address] documented as of this encounter
--- OUTSIDE RECORDS SUMMARY | 2022-04-28 01:11 | XMS_ITS | Encounter Summary ---
:1960 Author Organization [facility] [place] [address] Care Team Providers Name Role Phone Hai Gallegos MD Primary Care Provider [phone] Reason for Visit Reason Onset Date Comments Other 05/21/2015 Encounter Details Date Type Department Care Team Description 05/21/2015 Telephone [facility] Center at [facility] [place]iliana [place] [address] Social History Tobacco Use Types Packs/Day Years Used Date Current Every Day Smoker Cigarettes 0.5 Smokeless Tobacco: Never Used Sex Assigned at Date Recorded Not on file documented as of this encounter Miscellaneous Notes Telephone Encounter - Emiliana Botello MSW - 05/21/2015 4:33 PM EST OFFICE OF CARE MANAGEMENT CCM Reply from merchandise complaint adjuster Anna Mike at ph [phone]/ fax [phone] regarding Ms. Holman's claim# [id number] that PINKYBryan reza has not yet responded requests an additional week. Monitor for update and update to patient and healthcare team pending this. Spoke with Ms. Holman and reviewed Dates which she feels her grandchildren can help with caring for her mother. She will stand by for update next week regarding coverage. documented in this encounter Plan of Treatment Upcoming Encounters Date Type Specialty Care Team Description 08/28/2022 Laboratory Appointment Lab 08/28/2022 Appointment Radiology Yuliana Hernandez MD [facility] [address] [place] [address] (Wo rk) 08/28/2022 Office Visit Gastroenterology Andrew Smith PA [facility] [address] [place] [address] (Wo rk) documented as of this encounter Visit Diagnoses Not on filedocumented in this encounter Care Teams Photographic Restorer Relationship Specialty Start Date End Date Hai Gallegos MD PCP - General 05/31/10 10/09/[address] [place] [address] documented as of this encounter
--- OUTSIDE RECORDS SUMMARY | 2022-04-28 01:11 | XMS_ITS | Encounter Summary ---
:1960 Author Organization [facility] [place] [address] Care Team Providers Name Role Phone Hai Gallegos MD Primary Care Provider [phone] Reason for Visit Reason Onset Date Comments Other 07/22/2015 Encounter Details Date Type Department Care Team Description 07/22/2015 Telephone [facility] Emiliana [place] [address] Social History Tobacco Use Types Packs/Day Years Used Date Current Every Day Smoker Cigarettes 0.5 Smokeless Tobacco: Never Used Sex Assigned at Date Recorded Not on file documented as of this encounter Miscellaneous Notes Telephone Encounter - Emiliana Botello MSW - 07/22/2015 2:13 PM EST OFFICE OF CARE MANAGEMENT [facility] left for w[place] field automobile adjuster Anna Mike at ph [phone]/ fax [phone] regarding Ms. Holman's claim# [id number] [email or web address] requesting status of re instating voc counseling asshe may be entitled and is now engaged and progressing. Request return call regarding status and timeframe. Update to patient and healthcare team. documented in this encounter Plan of Treatment Upcoming Encounters Date Type Specialty Care Team Description 08/28/2022 Laboratory Appointment Lab 08/28/2022 Appointment Radiology Yuliana Hernandez MD [facility] [place] [address] (Wo rk) 08/28/2022 Office Visit Gastroenterology Andrew Smtih PA [facility] [address] [place] [address] (Wo rk) documented as of this encounter Visit Diagnoses Not on filedocumented in this encounter Care Teams Manager Flight Operations Relationship Specialty Start Date End Date Hai Gallegos MD PCP - General 05/31/10 10/09/[address] [place] [address] documented as of this encounter
--- OUTSIDE RECORDS SUMMARY | 2022-04-28 01:11 | XMS_ITS | Encounter Summary ---
:1960 Author Organization [facility] [place] [address] Care Team Providers Name Role Phone Hai Gallegos MD Primary Care Provider [phone] Reason for Visit Reason Onset Date Comments Other 04/06/2015 Encounter Details Date Type Department Care Team Description 04/06/2015 Telephone [facility] [place]iliana [place] [address] Social History Tobacco Use Types Packs/Day Years Used Date Current Every Day Smoker Cigarettes 0.5 Smokeless Tobacco: Never Used Sex Assigned at Date Recorded Not on file documented as of this encounter Miscellaneous Notes Telephone Encounter - Emiliana Botello MSW - 04/19/2015 1:04 PM EDT OFFICE OF CARE MANAGEMENT CCM Met with Ms. Holman as she is recommended and medically cleared for the Functional Yarsanism Program. Ms. Holman would be pleased to proceed with [id number] FRP. This is a [place] claim (Aimee Pierson Garrido [facility] [phone]/ fax [phone] claim# [id number]). She's had minimal interaction with Ms. Pierson. She [place] [facility] and would benefit from local lodging. PLAN: 1) confirm either verbally or if no response via [place] Request for Prior Authorization coveragein principle for FRP and local lodging. Update to patient and healthcare team pending this. Msg. Left for Ms. Pierson. documented in this encounter Plan of Treatment Upcoming Encounters Date Type Specialty Care Team Description 08/28/2022 Laboratory Appointment Lab 08/28/2022 Appointment Radiology Yuliana Hernandez MD [facility] [address] [place] [address] (Wo rk) 08/28/2022 Office Visit Gastroenterology Andrew Smith PA [facility] [address] [place] [address] (Wo rk) documented as of this encounter Visit Diagnoses Not on filedocumented in this encounter Care Teams Electrical Instrument Maker Relationship Specialty Start Date End Date Hai Gallegos MD PCP - General 05/31/10 10/09/[address] [place] [address] documented as of this encounter
--- OUTSIDE RECORDS SUMMARY | 2022-04-28 01:11 | XMS_ITS | Encounter Summary ---
:1960 Author Organization [facility] [place] [address] Care Team Providers Name Role Phone Hai Gallegos MD Primary Care Provider [phone] Reason for Referral Diagnostic Test (Routine) - Closed Specialty Diagnoses / Procedures Referred By Contact Refer red To Contact Orthopaedics Diagnoses Chronic back pain Eleanor Lancaster, BARBI Marie Spine 3d [facility] D [facility] [place] [address] [place] [address] Referral ID Status Reason Start Date Expiration Date Visits V isits Requested Authorized [id number] Closed Consult, 04/06/2015 04/05/2016 1 1 Test & Treat Reason for Visit Reason Comments Low Back Pain Left Leg Pain Encounter Details Date Type Department Care Team Description 04/06/2015 Follow-Up Spine Center at [facility] non Eleanor Lancaster, Chronic back pain [facility] [place] [address] [facility] [phone] [place] [address] (Wo rk) Social History Tobacco Use Types Packs/Day Years Used Date Current Every Day Smoker Cigarettes 0.5 Smokeless Tobacco: Never Used Sex Assigned at Date Recorded Not on file documented as of this encounter Last Filed Vital Signs Vital Sign Reading Time Taken Comments Blood Pressure - - Pulse - - Temperature - - Respiratory Rate - - Oxygen Saturation - - Inhaled Oxygen Concentration - - Weight 93 kg (205 lb) 04/06/2015 2:51 PM EDT Height 165.1 cm (5' 5) 04/06/2015 2:51 PM EDT Body Mass Index 34.11 04/06/2015 2:51 PM EDT documented in this encounter Progress Notes Eleanor Lancaster, COMPUTER AIDED DRAFTER - 04/06/2015 3:30 PM EDT Chief complaint requiring rehabilitation: Chronic low back pain there is also some left lower extremity pain. S: Mary Beth is being seen today for medical clearance for the Functional Nondenominational program, a graduated exercise program aimed at The patient achieving herfunctional goals, despite having chronic pain. Her pain pattern is described as back and left leg pain with paresthesias, She has had treatments including injections, physical therapy, chiropractic, and medications. She does note that she got out of bed with increasing left leg pain in the last couple of days and numbness on the side of the foot which she reports she thinks is a new symptom. . 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 Walk at least 1 mile for daily exercise. Ride horseback. Daily Living: Shovel snow. Wash dishes, vacuum, and sweep floors without requiring breaks. O: Please see Mr. Sheppard's note of today for details of the physical testing and current functionalLevel. In general the patients current level of functioning is in the sedentary to light demand level and goals are in the light to medium demand level. I did her physical exam today which reveals normal strength, sensation, reflexes. She can walk on heels and toes without any difficulty and she can single leg heel raise. She has limited flexibility. She has pain with straight leg raising but in her back on her leg. I reviewed the report of her MRI unfortunately the images were not here to review but the report states that she has facet arthropathy at L4-5 and L5-S1 without evidence of stenosis. A: There is a gap between Her goals and abilities.This was a counseling visit for 25 minutes out of 40talking about symptom and functional recovery, reviewing the content of FRP, and logistics specific to participation including, travel, lodging and exercise and activity planning . We have mutually decided to proceed with the following plan. P: Mary Beth is a candidate for functional pentecostal. We've reviewed signs and symptoms of increasing sciatica. If she is going to be out and not come to FRP until after May I would certainly want to see her back before then. She is advised to call us if she has any increasing symptoms in the meantime. She also is going to meet with Ms. Rosmery will speak to her about logistics such as transportation, housing, and how she'll have her care of her mother arranged.. documented in this encounter Plan of Treatment Upcoming Encounters Date Type Specialty Care Team Description 08/28/2022 Laboratory Appointment Lab 08/28/2022 Appointment Radiology Yuliana Hernandez MD [facility] [address] [place] [address] (Wo rk) 08/28/2022 Office Visit Gastroenterology Andrew Smith PA [facility] [address] [place] [address] (Wo rk) Scheduled Referrals Name Type Priority Associated Order Schedule Diagnoses Referral to [facility] Outpatient Referral Routine Chronic back pain Ordered: Assessment 04/06/2015 documented as of this encounter Visit Diagnoses Diagnosis Chronic back pain Backache, unspecified documented in this encounter Care Teams Surgery Scheduler Relationship Specialty Start Date End Date Hai Gallegos MD PCP - General 05/31/10 10/09/17 [address] [facility] [place] [address] documented as of this encounter
--- OUTSIDE RECORDS SUMMARY | 2022-04-28 01:11 | XMS_ITS | Encounter Summary ---
:1960 Author Organization [facility] [place] [address] Care Team Providers Name Role Phone Hai Gallegos MD Primary Care Provider [phone] Reason for Visit Reason Comments Back Pain Encounter Details Date Type Department Care Team Description 07/26/2015 Office Visit Functional Faith Juan Carlos Foley, Chronic low back pain Program at [facility] PT [address] [place] [address] [place] [address] Social History Tobacco Use Types Packs/Day Years Used Date Current Every Day Smoker Cigarettes 0.5 Smokeless Tobacco: Never Used Sex Assigned at Date Recorded Not on file documented as of this encounter Progress Notes Juan Carlos Foley, PT - 07/26/2015 10:25 AM EST [facility] Physical Therapy Note [facility] Day 10 Protocol Subjective: Mary Beth returns today for a scheduled follow up appointment with [facility]; she reports her foothas been feeling better and she would like to try the stationary bike again today. Objective: Treatment Received: Refer to [facility] protocol for explanation of program/physical therapy details. 1. Therapeutic and Functional Exercise: See FRP flow sheets for progression. Strengthening and conditioning designed according to personal functional recovery goals and [facility] protocol was: (x) Completed ( ) Not completed 2. Home Exercise Program: Reviewed and modified current home exercise program. The Home Exercise Program was: (x) Unchanged ( ) Modified 3. Neurological Assessment: (x) No change in status ( ) Change in status 4. Stretching and Relaxation Training Sessions: (x) Completed ( ) Not completed Progressed repetitions of mat exercises, resistance of gym exercises, and duration of endurance exercises. Assessment: Mary Beth is progressing as planned [...] both a physical therapist and physical therapist shampoo assistant. Cande Wilson PTA documented in this encounter Plan of Treatment Upcoming Encounters Date Type Specialty Care Team Description 08/28/2022 Laboratory Appointment Lab 08/28/2022 Appointment Radiology Yuliana Hernandez MD [facility] Medical [facility] [address] [place] [address] (Wo rk) 08/28/2022 Office Visit Gastroenterology Andrew Smith PA [facility] [address] [place] [address] (Wo rk) documented as of this encounter Visit Diagnoses Diagnosis Chronic low back pain Lumbago documented in this encounter Care Teams Graphic Artist Relationship Specialty Start Date End Date Hai Gallegos MD PCP - General 05/31/10 10/09/17 [address] [place] [address] documented as of this encounter
--- OUTSIDE RECORDS SUMMARY | 2022-04-28 01:11 | XMS_ITS | Encounter Summary ---
:1960 Author Organization [facility] [place] [address] Care Team Providers Name Role Phone Hai Gallegos MD Primary Care Provider [phone] Reason for Visit Reason Onset Date Comments Other 05/25/2015 Encounter Details Date Type Department Care Team Description 05/25/2015 Telephone Spine Center at [facility] [place]iliana [place] [address] Social History Tobacco Use Types Packs/Day Years Used Date Current Every Day Smoker Cigarettes 0.5 Smokeless Tobacco: Never Used Sex Assigned at Date Recorded Not on file documented as of this encounter Miscellaneous Notes Telephone Encounter - Emiliana Botello MSW - 05/25/2015 10:43 AM EST OFFICE OF CARE MANAGEMENT CCM Reply from insurance claims adjuster Anna Mike at ph [phone]/ fax [phone] regarding Ms. Holman's claim# [id number] that she and PINKY doctor are agreeable to [facility] and local lodging. She knows to coordinate local lodging and email list is sent to her [email or web address]. 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 Voc was discontinued as Ms. Holman was not engaged during the summer. Could reconsider pending progress with treatment. PLAN: 1) Jun.[id number] FRP with local lodging documented in this encounter Plan of Treatment Upcoming Encounters Date Type Specialty Care Team Description 08/28/2022 Laboratory Appointment Lab 08/28/2022 Appointment Radiology Yuliana [facility] MD [facility] [address] [place] [address] (Wo rk) 08/28/2022 Office Visit Gastroenterology Andrew Smith PA [facility] [place] [address] (Wo rk) documented as of this encounter Visit Diagnoses Not on filedocumented in this encounter Care Teams Evp Marketing Relationship Specialty Start Date End Date Hai Gallegos MD PCP - General 05/31/10 10/09/[address] [place] [address] documented as of this encounter
--- OUTSIDE RECORDS SUMMARY | 2022-04-28 01:11 | XMS_ITS | Encounter Summary ---
:1960 Author Organization [facility] [place] [address] Care Team Providers Name Role Phone Hai Gallegos MD Primary Care Provider [phone] Encounter Details Date Type Department Care Team Description 07/21/2015 Office Visit Spine Center at [facility] Chroni c low back pain Nomi [facility] [address] [place] [facility] [address] [place] [address] [phone] Social History Tobacco Use Types Packs/Day Years Used Date Current Every Day Smoker Cigarettes 0.5 Smokeless Tobacco: Never Used Sex Assigned at Date Recorded Not on file documented as of this encounter Progress Notes Medardo Lyles MD - 07/21/2015 5:11 PM EST 07/21/2015 [id number] Mary Beth Holman CC: Back pain FUNCTIONAL [facility] PROGRAM REHABILTIATION TRAINING LECTURE Title: ???Medications?? Presenter: Medardo Lyles MD This one hour lecture began with listing all the patients??? current and prior chief complaint-related medications, placing each in its pharmacological category. The personal experiences of the patients in terms of side effects and benefits were reviewed and discussed with references to the biochemical and clinical effects if the drugs. The lack of curative impact of these medications was stressed. The difficulties in determining optimal doses for analgesics were discussed in the context of the varying needs of patients and regulatory issues involved. The importance of prescribing in the frameworkof functional goals was reviewed as opposed to focusing entirely on symptom relief. lecture time: 1 hr. documented in this encounter Plan of Treatment Upcoming Encounters Date Type Specialty Care Team Description 08/28/2022 Laboratory Appointment Lab 08/28/2022 Appointment Radiology Yuliana Hernandez MD [facility] [address] [place] [address] (Wo rk) 08/28/2022 Office Visit Gastroenterology Andrew Smith PA [facility] [address] [place] [address] (Wo rk) documented as of this encounter Visit Diagnoses Diagnosis Chronic low back pain Lumbago documented in this encounter Care Teams Interlacer Relationship Specialty Start Date End Date Hai Gallegos MD PCP - General 05/31/10 10/09/[address] [place] [address] documented as of this encounter
--- OUTSIDE RECORDS SUMMARY | 2022-04-28 01:11 | XMS_ITS | Encounter Summary ---
:1960 Author Organization [facility] [place] [address] Care Team Providers Name Role Phone Hai Gallegos MD Primary Care Provider [phone] Reason for Visit Reason Comments Low Back Pain Encounter Details Date Type Department Care Team Description 07/23/2015 Office Visit Functional Gnosticism Skylar Funes C hronic low back pain Program at [facility] OT [address] [place] [address] Social History Tobacco Use Types Packs/Day Years Used Date Current Every Day Smoker Cigarettes 0.5 Smokeless Tobacco: Never Used Sex Assigned at Date Recorded Not on file documented as of this encounter Progress Notes Skylar Funes, HODAN - 07/23/2015 7:56 AM EST [facility] Occupational Therapy Note [facility] Day 9 Protocol Subjective: Ms. Holman returns today for a scheduled follow up appointment with [facility]. She reports that carrying the crate is still difficult, however carrying the weighted buckets is easier as it is similar to what she has to do to feed the horses. Objective: Refer to [facility] protocol for details and explanation of each activity. Ms. Holman participated in the following activities: Functional Therapy: 1. AM Session of functional conditioning ( X ) Completed ( ) Not Completed 2. PM Session of functional conditioning ( X ) Completed ( ) Not Completed Individualized Treatment: Increased resistance levels of functional conditioning exercises accordingto personal recovery goals. Specific resistance levels assigned for 2nd weekend home lifting program Please see goals in initial OT evaluation [...] provided by both an Occupational Therapist and Edging Machine Feeder, BRONWYN Ortega documented in this encounter Plan of Treatment Upcoming Encounters Date Type Specialty Care Team Description 08/28/2022 Laboratory Appointment Lab 08/28/2022 Appointment Radiology Yuliana Hernandez MD [facility] [address] [place] [address] (Wo rk) 08/28/2022 Office Visit Gastroenterology Andrew Smith PA [facility] [address] [place] [address] (Wo rk) documented as of this encounter Visit Diagnoses Diagnosis Chronic low back pain Lumbago documented in this encounter Care Teams Digital Printer Operator Relationship Specialty Start Date End Date Hai Gallegos MD PCP - General 05/31/10 10/09/17 [address] [place] [address] documented as of this encounter
--- OUTSIDE RECORDS SUMMARY | 2022-04-28 01:11 | XMS_ITS | Encounter Summary ---
:1960 Author Organization [facility] [place] [address] Care Team Providers Name Role Phone Teresita Gallegos MD Primary Care Provider [phone] Reason for Visit Reason Comments Chronic Back Pain Encounter Details Date Type Department Care Team Description 07/14/2015 Office Visit [facility] Medardo Lyles, Chronic low back pain; Program at [facility] Marian white MD Chronic back pain [address] [place] [address] [place], [place] [address] Social History Tobacco Use Types Packs/Day Years Used Date Current Every Day Smoker Cigarettes 0.5 Smokeless Tobacco: Never Used Sex Assigned at Date Recorded Not on file documented as of this encounter Progress Notes Medardo Lyles MD - 07/14/2015 7:36 AM EST [facility]: [facility] Program Admission Staff Meeting 07/14/2015 I met with Ms. Holman for the entire 30 minutes today to discuss her admission and progress in the [facility] Program as written in this note. We discussed medical progress, imaging, surgical decision making, current pain and functional status, compared that status to personal recovery goals, and established the plan of care accordingly as below. The chief complaint requiring rehabilitation is low [...] and weakness affecting the left upper extremity. Results of the Touch Pad Questionnaires You Filled out: First Day of FRP End of FRP 4 Week Follow-up 3 Month Follow-up Today???s Pain Level (0-10) 8 Past Week???s Pain Level (0-10) 7 Quality of Sleep (lower = better) 17 Fear of Pain Caused by Work Related Activity (maximum = 42) 32 Fear of Pain Caused by Non-work Activity (maximum = 24) 15 Total Fear of Pain (maximum = 66) 47 Anxiety (score/range) 3/Normal Stress (score/range) 12/Normal Depression (greater than 19 = depressed) 17 Disability (past month, lower = better) 38 Reported Tolerance (minutes): First Day of FRP [...] Reason for stop point Left foot pain Physical Capacity Test Results: Lifting: (pounds/heart rate) First Day of FRP End of Program 4 Week Follow-Up 3 Month Follow-Up Repetitive Floor to Waist Repetitive Waist to Shoulder 10 1-Time Maximum 15 Carry -2 Handed 50 ft 15 Work Demand Level Sedentary- Light Functional Goals: Functional Goals at Beginning of FRP Current Status of Goals Vocational: Return to work in some type of position that involves contact with the public, 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 Walk at least 1 mile for daily exercise without breaks. Resume horseback riding. Be able to sit to drive for up to 2 1/2 hours, to visit son, without taking a break. Daily Living: Be able to sleep 6-7 hours/night; be able to shovel snow. Be able to stand 30 minutes to wash dishes; be able to clean bathroom, vacuum, mop and sweep floors without requiring breaks; be able to clean house in one day. PLAN: [facility] Program. Cc: Mary Beth Holman [address] [facility] [id number] TERESITA GALLEGOS MD [address] [place] [address] Anna Musenahun Radhika Harman claim# [id number] fax [phone] FUNCTIONAL GNOSTICIST PROGRAM (FRP) PROTOCOL DESCRIPTION DAY 1 TESTING The first day of FR includes testing from all departments to measure baseline values including: Visual Analog Pain Scale, FABQ, ALIS-D, PSQI, MARISSA, TYSHAWN, MCS, PCS, WASI, Eagle[place]Seg[place], Sitting Standing & Walking tolerance, ROM in degrees, MET Level, Lifting (occasional & frequent), Push/Pull, Carry-2 handed 50 ft, DOT level. Day 1 testing includes: * Physical Therapy: Functional Assessment (PT section) * Occupational Therapy: Functional Assessment (OT section) * Touch Pad Survey * Medical Consult with MD/INSOLE ROUNDER STRETCH, STRENGTH, & AEROBICS 1 hour with 2 [facility] staff members PT/OT/DOWNSTAIRS MAID Low impact aerobic conditioning and strengthening class that includes floor aerobics, step aerobics,yoga, pilates, ukrainian ball training, strengthening and stretching. This is the first class of every day so that patients begin the day with a warm-up of low-impact and low intensity conditioning. The goal of the class is to introduce and encourage different types of cardiovascular conditioning and strengthening. STRENGTHENING & CARDIOVASCULAR EXERCISE 1 hour with 2-3 [facility] staff members PT/DOWNSTAIRS MAID The physical therapy staff instructs, modifies, and supervises upper extremity, lower extremity, andcore strengthening exercises focused on regaining total body fitness. These exercises are completed by all patients and include free weights, weight machines, general upper and lower extremity exercise, and specific spinal flexor and extensor strengthening. Available dumbbells include 1-50 lbs. The exe rcises are listed in the training record and can be changed for each program and/or individualized for each patient. Patients are methodically encouraged to increase their repetitions, sets or weight for their exercises daily. The therapists will recommend an increase in 1 set, or 10 repetitions, or 1-5 lbs in weight. This will be decided by the therapists daily based on the patients ability to complete the current exercise prescription, exercise mechanics, tolerance level, or current relevant physical complaints. Cardiovascular conditioning includes at least 15 minutes of one activity to be completed in 1-4 sessions. [facility] patients seldom have the conditioning to complete 15 minutes of one activity at a sufficient intensity to provoke a cardiovascular training response. Therefore, [facility] utilizes multiple sessions to reach cardiovascular goals. Multiple types of cardiovascular equipment will be used which include:stationary bike, upper extremity bike ergometer (UBE), treadmill, stair master, sci fit, and stairwells. Exercise grades, intensity, and times are monitored and recorded. Perceived exertion or heart rate may also be used to rate exercise intensity. Intensity, incline, speed, and/or time will be increas ed daily. However, walking speed will be initially accelerated and emphasized. A normal walking speed of 3.5mph is a common goal of patients before the end of a program. Home Exercise programs are individualized for their specific chief complaint and any secondary musculoskeletal and/or cardiovascular concerns. They will include cardiovascular training, strengthening, stretching, and ROM activities when needed. These programs are to be completed by patients during their time away from [facility] (weekends, off days)and ultimately for after program completion. Home exercise programs will be reviewed and revised so that by the end of the program the patient has a progressed individualized therapeutic exercise self management plan. The goal of the physical therapy home program is to teach and encourage the patient to continue exercise for continued functional recovery and pain relief. Throughout the month of treatment the patients are educated regarding exercise decision making with the goal that by the end of the intensive program they are capable of continuing their training, making alterations and corrections as required, independently. The education takes place throughout the month of treatment sessions, is progressive for each patient (some patients may be able to safely structure and carry out their individual program sooner than others), and individualized for the musculoskeletal and cardiovascular needs of each patient. FUNCTIONAL CONDITIONING 1 hour with 3 [facility] staff members OT/PT/DOWNSTAIRS MAID Work Conditioning: Involves progressive and graded activities used at work, home and recreation. These activities include 1. Lifting: * Frequent -Floor to waist - 20 X per session * Frequent - Waist to shoulder -20 X per session * Occasional Lifting- 5X per session 2. Carrying - 10 minutes -increasing weight carried on a daily basis 3. Repetitive bending and reaching-10 minutes - done with hand weights to increase upper extremity strength and tolerance to bending. 4. Pushing and pulling sled -25 feet - either weight and repetitions increase daily 5. Lifting through ROM- increases in either repetition or weight daily 6. Lifting starts at one third of frequent testing weight and increases five pounds each day till goal weight is reached. During the work conditioning sessions, individuals are taught and encouraged to perform stretches, specific to the activity and use ice for pain control. Sessions are designed to increase work capacitygoals through both strengthening and exposure to the level identified in the Occupational Therapy initial note. INDIVIDUAL TIME 15-30 minutes of individual treatment time with the OT, PT, and Care Management. These visits occur during the relaxation training group therapy sessions. MEDICAL APPOINTMENT (Meeting with MD/INSOLE ROUNDER) 25 minute individual clinic visit with program directors to discuss program and individuals status, goals, and plan. MEETING WITH MD AND STAFF (Staffing Meeting) 15-25 minute individual clinic visit with mental health program manager and medical staff to discuss individuals status, progress, goals, and plan. WALK & STRETCH 1 hour with 1-2 [facility] staff members PT/OT/DOWNSTAIRS MAID Patients will walk for 30 minutes on flat terrain with minimal inclines to begin their afternoon warm-up. They are encouraged to increase their speed, and therefore heart rate, each day at their own pace to ultimately increase their walking tolerance. After the walk the patients participate in a 30 minute relaxation and/or stretching class. The relaxation class emphasizes breathing, progressive muscle relaxation, activity pacing, and meditation techniques to help teach self control over pain. The stretching class also includes relaxation techniques with stretching. MEDICAL LECTURES All lectures are 1 hour and led by [facility] staff MD/DAISY/BARBI/PT/OT Lectures are designed to educate, motivate, and empower the patients to self manage their pain and accompanying medical co-morbidities. FUNCTIONAL GNOSTICIST This one hour lecture began with a discussion of chronic pain patients??? basic expectation of anatomic diagnosis and how it is often despite high tech imagining and electrodiagnostic studies. This diagnostic process was reviewed. Natural history of recovery from spinal injury was reviewed: recovery for most, but about 10% has persisting disabling pain. Dilemma of finding the right treatment for people with chronic disabling pain without a curable diagnosis was discussed. The development of Functional [facility] was reviewed, including the critical role of goal setting and quota-based physical training toward each individual???s personal functional goal. GOAL SETTING This is a one hour lecture and interactive group session. Individuals??? responses to their initialgoal setting questionnaires are discussed with special attention to the diversity of their pain and functional goals and priorities. The complex relationship between pain and function is discussed in the context of underlying beliefs and expectations and how these may dramatically affect recovery and the individuals??? ability to get what they want from treatment. Practical application of these issues to the individual???s situation is stressed. ANATOMY, IMAGING, SURGICAL DECISION MAKING This lecture includes subjects such as: Importance of the History, Physical Examination, and Imaging studies. Solving the Mystery; Where is the Pain Coming From. Defining anatomy and possible pain generators in the back. Some thoughts and explanations for the failure to improve: What's known, what's not. WORKERS COMPENSATION & INSURANCE This lecture provides a detailed description of the benefits, known criteria, application and review process for (6) most common types of disability; Workers Compensation, Short term/Alf Disability, Social Security Disability, Tort/Liability, Walking Drag[place], and Medicaid. During the course of the lecture patients are encouraged to share their concerns and questions as well as to elicit and dispel any myths, beliefs or assumptions they, their families, or others may have had about these resources. Further exploration of the often ensuing disappointments many patients have when recognizing the limitations of the types of disabilities as well as exploration and re-framing of the potential opportunities. Concurrently, specifics of plateau (ie MMI or End Medical) for workers compensation as well as information on how impairment ratings are calculated are explored both to encourage patient planning as well as to begin to face these signifant psychosocial stressors faced by patients as they end Functional [facility] and come to plateau. Patients who are not workers compensation are also encouraged to participate in this conversation as part of a therapeutic review of understanding their fellow participants and the challenges faced by others. PAIN AND RELAXATION RESPONSE This lecture focuses on relationships between pain and stress. Automatic reactions are reviewed along with techniques and personal applications of the relaxation response in a scheduled regimen and during acute pain episodes. MEDICATION LECTURE This one hour lecture begins with listing all the patients??? current and prior chief complaint-related medications, placing each in its pharmacological category. The personal experiences of the patients in terms of side effects and benefits are reviewed and discussed with references to the biochemical and clinical effects of the drugs. The lack of curative impact of these medications is stressed. The difficulties in determining optimal doses for analgesics are discussed in the context of the varying needs of patients and regulatory issues involved. The importance of prescribing in the framework of functional goals is reviewed as opposed to focusing entirely on symptom relief. WELLNESS LECTURE The purpose of this discussion is to identify modifiable and non modifiable factors that influence health and wellness. We will define wellness and health, discuss non modifiable risk factors of morbidity and mortality and modifiable factors. We will then discuss strategies for maximal management of non modifiable factors. Discussion will include diet and exercise recommendations, sleep and stress management. All participants will be encouraged to participate and share helpful coping strategies. JOB HUNTING A review of job seeking skills and hints to use after an injury and rehabilitation. Includes topicssuch as employers obligations, your obligations, vocational rehabilitation, resume and cover letter writing, application process and writing. There is also an extensive discussion of the Americans with Disabilites Act. ACUTE PAIN MANAGEMENT This one hour lecture begins with a review of the ACUTE PAIN WORKSHEETS completed by the patients on the day of admission to the [facility]. There is an in depth discussion of specific acute pain experiences. Individuals??? thoughts and beliefs about the significance of the pain and how those thoughts determine what actions patients took about their pain are examined. Outcomes are described and discussed. Alternative thought and action patterns are reviewed. Techniques for distinguishing hurt from harm are reviewed along with thought re-framing, relaxation techniques and physical self-care strategies. RE-ENTRY This discussion addresses returning to your life - after FRP. Adjustments to home life and continuint with your Home Exercise Program are included. There is a short review of the principles of self-care for participants to use at both work and home. The group is led in discussion of why the FRP approach has been successful for each participant compared to what has been tried in the past. Then each participant describes how he/she plans to get the same support from family, friends, employers, and ohter people important in your life. Also reviewed are the examples of how to deal with flare-ups. Group participants stategize different methods for managing flare-ups and the conseguences of catastrophizing. Each participant shares his/her plan for handling a flare-up. UNGUARDED ACTIVITIES 30 minutes with 2 FRP staff members DOWNSTAIRS MAID/OT/PT * Ball games are utilized to encouraged to encourage spontaneous or quick movements. Games played for 15 minutes. The goal of unguarded activity is to increase cardiovascular fitness, strength, endurance and flexibility and to encourages spontaneous movements. FUNCTIONAL GNOSTICIST PROGRAM (FRP) DAILY PROTOCOL OVERVIEW: [facility] consists of 14 days of interdisciplinary treatment and patients are approximately in the clinic each day from 8 am to 3 pm. Individual meeting times with PT, OT, and Care Management occurat multiple points during the FRP Functional [facility] Week 1 Protocol Day 1 Day 1 Testing (4 hours) Orientation (1 hour) Group Testing (30 minutes) MD/INSOLE ROUNDER evaluation (45 Minutes) [facility] Week 1 Protocol Day 2 Stretch, Strengthening and Aerobics Class (1 hour) Strengthening and Cardiovascular Exercise (1 hour) Functional Conditioning (2hours) Meeting with MD (25 minutes) Walk and Stretch Class (1 hour) Relaxation Training and Unguarded Activity (1 hour) [facility] Week 1 Protocol Day 3 Stretch, Strengthening and Aerobics Class (1 hour) Strengthening and Cardiovascular Exercise (1 hour) Functional Conditioning (2hours) Relaxation (30 minutes) Walk and Stretch Class (1 hour) [facility] Lecture (1 hour) [facility] Week 1 Protocol Day 4 Stretch, Strengthening and Aerobics Class (1 hour) Strengthening and Cardiovascular Exercise (1 hour) Functional Conditioning (2hours) Walk and Stretch Class (1 hour) Relaxation (30 Minutes) Goal Setting Lecture (1 hour) [facility] Week 2 Protocol Day 5 Stretch, Strengthening and Aerobics Class (1 hour) Strengthening and Cardiovascular Exercise (1 hour) Functional Conditioning (2hours) Walk and Stretch Class (1 hour) Relaxation (30 Minutes) Anatomy, Imaging, Surgical Decision Making Lecture (1 hour) [facility] Week 2 Protocol Day 6 Stretch, Strengthening and Aerobics Class (1 hour) Strengthening and Cardiovascular Exercise (1 hour) Functional Conditioning (2 hours) Walk and Stretch Class (1 hour) Relaxation (30 Minutes) Workers Compensation Insurance Lecture (1 hour) [facility] Week 2 Protocol Day 7 Stretch, Strengthening and Aerobics Class (1 hour) [place] testing (1 hour) Strengthening and Cardiovascular Exercise (1 hour) Functional Conditioning (1hour) Relaxation (30 Minutes) Walk and Unguarded Activity (1 hour) Relaxation Lecture (1 hour) [facility] Week 2 Protocol Day 8 Stretch, Strengthening and Aerobics Class (1 hour) Strengthening and Cardiovascular Exercise (1 hour) Functional Conditioning (2 hours) Relaxation (30 minutes) Walk and Stretch Class (1 hour) Medications Lecture (1 hour) [facility] Week 2 Protocol Day 9 Stretch, Strengthening and Aerobics Class (1 hour) Strengthening and Cardiovascular Exercise (1 hour) Functional Conditioning (2 hours) Relaxation (30 minutes) Walk and unguarded activity (1 hour) [facility] Week 3 Protocol Day 10 Stretch, Strengthening and Aerobics Class (1 hour) Strengthening and Cardiovascular Exercise (1 hour) Functional Conditioning (2 hours) Relaxation ( 30 minutes) Walk and Stretch class (1 hour) Job Hunting lecture(1 hour) [facility] Week 3 Protocol Day 11 Stretch, strengthening and aerobics class (1 hour) Strengthening and Cardiovascular Exercise (1 hour) Functional Conditioning (2hours) Relaxation (30 Minutes) Walk and Stretch Class (1 hour) Acute Pain Management lecture (1 hour) [facility] Week 3 Protocol Day 12 Stretch, strengthening and aerobics class (1 hour) Strengthening and Cardiovascular Exercise (1 hour) Functional Conditioning (2hours) Walk and unguarded activity (1 hour) Relaxation (30 Minutes) Re-entry lecture (1 hour) [facility] Week 3 Protocol Day 13 Day 13 Testing (2 hours) Stretch, Strengthening, Aerobics class (1 hour) Strengthening and Cardiovascular Exercise (1 hour) Functional Conditioning (1 hour) Relaxation (30 minutes) Walk and Stretch Class (1 hour) [facility] Week 3 Protocol Day 14 Stretch, Strengthening and Aerobics Class (1 hour) Strengthening and Functional Conditioning (1hour) Program Evaluation (1 hour) Individual Meeting with MD/INSOLE ROUNDER and staff (25 minutes) Graduation and Final D/C information (30 minutes) documented in this encounter Plan of Treatment Upcoming Encounters Date Type Specialty Care Team Description 08/28/2022 Laboratory Appointment Lab 08/28/2022 Appointment Radiology Yuliana Hernandez MD [facility] [address] [address] (Wo roz) 08/28/2022 Office Visit Gastroenterology Andrew Smith PA [facility] [address] [place] [address] (Wo [email or web address]) documented as of this encounter Visit Diagnoses Diagnosis Chronic low back pain Lumbago Chronic back pain Backache, unspecified documented in this encounter Care Teams Sales And Marketing Director Relationship Specialty Start Date End Date Teresita Gallegos MD PCP - General 05/31/10 10/09/[address] [place] [address] documented as of this encounter
--- OUTSIDE RECORDS SUMMARY | 2022-04-28 01:11 | XMS_ITS | Encounter Summary ---
:1960 Author Organization [facility] [place] [address] Care Team Providers Name Role Phone Hai Gallegos MD Primary Care Provider [phone] Reason for Visit Reason Comments Low Back Pain Encounter Details Date Type Department Care Team Description 07/13/2015 Office Visit Functional Jainism Skylar Funes C onic back pain Program at [facility] OT [address] [place] [address] Social History Tobacco Use Types Packs/Day Years Used Date Current Every Day Smoker Cigarettes 0.5 Smokeless Tobacco: Never Used Sex Assigned at Date Recorded Not on file documented as of this encounter Progress Notes Skylar Funes OT - 07/13/2015 3:19 PM EST Functional Jainism Program (Day 1) Occupational Therapy Evaluation Problem List: 1. Unclear Vocational Goal 2. Inability to do usual and customary job secondary to decreased lifting strength, functional ROM, limited positional tolerances, fear of re-injury and inability to manage pain. 3. Ms. Holman lacks effective pain management strategies to use on the job and at home. 4. Decreased ability to participate in activities of daily living and home maintenance. 5. Excessive muscle guarding prevents spontaneous motions needed for work and recreation. Subjective: Ms. 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 She reports that she fell when a pile of merchandise collapsed on her, knocking her over. Ms. Holman reports a history of bilateral knee pain, bilateral shoulder pain, neck pain with sensory loss and weakness of left upper extremity, left wrist cyst removal, left elbow tendon debridement procedures, diabetes, hypertension, vertigo, and asthma. Ms. Holman uses the following pain management strategies: changing positions, medication. She has completed the following schooling & additional training: High school diploma, [id number] for training of trainers Work experience has included the following jobs: [employer] for 8 years (last worked May 2014). 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 Holman reports the following return to work plan: No clear plans at this point. 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 She identifies the following barriers to return to work: - job no longer available - physical demands exceed current physical capacities - personal barrier - will need to arrange for day care for elderly mother She is working with a vocational rehabilitation counselor to assist in the RTW process. She has not met with the counselor since 01/2015, and plans to resume work with the counselor based on the outcomeof the FRP. Activities of Daily Living: Ms. Holman reports the following levels of participation: Personal Care 87% Home Maintenance 13% General Mobility 38% Homemaking 39% Getting out and about 67% Results were calculated from a self-report screening tool. Present Work Status: Out of work. 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 Physical Capacity Test Results: Lifting: (pounds/heart rate) First Day of FRP End of Program 4 Week Follow-Up 3 Month Follow-Up Repetitive Floor to Waist 10/115 Repetitive Waist to Shoulder 10/114 1-Time Maximum 15 Carry -2 Handed 50 ft 15 Work Demand Level Sedentary- Light The results of this testing must be integrated with clinical findings and other observations to derive a final assessment of work capacity. 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 Assessment: Ms. Holman is unable to fully participate in work, recreational, and home-based activities because of decreased functional strength, decreased AROM, decreased endurance, limited positionaltolerances, fear of re-injury, and fear of increased pain. She will benefit from participating in a conditioning program designed to increase functional strength, flexibility, and endurance in order tomeet functional goals. FRP Goals: While working towards the technician terminal and repeater (3 month) functional goals listed above, Ms. Holman will accomplish the following short term goals during the 3- week intensive rehabilitation program. Ms. Holman will: 1. Develop a viable return to work plan. 2. Demonstrate physical capacities consistent with a Light-medium work demand level. 3. Demonstrate increased functional strength by lifting 40 lbs floor to waist and 20 lbs waist to shoulder in order to meet work and home lifting goals. 4. Increase her positional tolerances to the level needed for work and home activities. 5. Implement self-care strategies during the program and at home to control pain. Plan: 1. Functional conditioning 2 times daily to increase physical capacities and allow Ms. Holman to meet demands of work and home. 2. Individual counseling to develop return to work plan and better understand the return to work process. 3. Daily stretching, aerobic conditioning, and walking to increase functional tolerances and allow Ms. Holman to meet demands of work and home. 4. Activities to increase ability to move quickly and tolerate unguarded movements. 45 minutes were spent today to interview Ms. Holman and test physical capacities. documented in this encounter Plan of Treatment Upcoming Encounters Date Type Specialty Care Team Description 08/28/2022 Laboratory Appointment Lab 08/28/2022 Appointment Radiology Yuliana Hernandez MD [facility] [address], [place] [address] (Wo rk) 08/28/2022 Office Visit Gastroenterology Andrew Smith PA [facility] [address], [place] [address] (Wo rk) documented as of this encounter Visit Diagnoses Diagnosis Chronic back pain Backache, unspecified documented in this encounter Care Teams Medical Aide Relationship Specialty Start Date End Date Hai Gallegos MD PCP - General 05/31/10 10/09/[address] [place] [address] documented as of this encounter
--- OUTSIDE RECORDS SUMMARY | 2022-04-28 01:11 | XMS_ITS | Encounter Summary ---
:1960 Author Organization [facility] [place] [address] Care Team Providers Name Role Phone Hai Gallegos MD Primary Care Provider [phone] Reason for Visit Reason Onset Date Comments Patient Not Seen 07/16/2015 Encounter Details Date Type Department Care Team Description 07/16/2015 Office Visit [facility] at [facility] DH PAT IENT NOT SEEN Nomi REBOLLAR [facility] [place] [address] [facility] [phone] [place], [place] [address] (Wo rk) Social History Tobacco Use Types Packs/Day Years Used Date Current Every Day Smoker Cigarettes 0.5 Smokeless Tobacco: Never Used Sex Assigned at Date Recorded Not on file documented as of this encounter Progress Notes Medardo Lyles MD - 07/16/2015 4:47 PM EST This patient was not seen in this encounter. documented in this encounter Plan of Treatment Upcoming Encounters Date Type Specialty Care Team Description 08/28/2022 Laboratory Appointment Lab 08/28/2022 Appointment Radiology Yuliana Hernandez MD [facility] [address] [place] [address] (Wo rk) 08/28/2022 Office Visit Gastroenterology Andrew Smith PA [facility] [address], [place] [address] (Wo rk) documented as of this encounter Visit Diagnoses Diagnosis DH PATIENT NOT SEEN documented in this encounter Care Teams Juvenile Court Liaison Relationship Specialty Start Date End Date Hai Gallegos MD PCP - General 05/31/10 10/09/[address] [place] [address] documented as of this encounter
--- OUTSIDE RECORDS SUMMARY | 2022-04-28 01:11 | XMS_ITS | Encounter Summary ---
:1960 Author Organization [facility] [place] [address] Care Team Providers Name Role Phone Hai Gallegos MD Primary Care Provider [phone] Reason for Visit Reason Onset Date Comments Other 05/14/2015 Encounter Details Date Type Department Care Team Description 05/14/2015 Telephone Spine Center at [facility] Emiliana [place] [address] Social History Tobacco Use Types Packs/Day Years Used Date Current Every Day Smoker Cigarettes 0.5 Smokeless Tobacco: Never Used Sex Assigned at Date Recorded Not on file documented as of this encounter Miscellaneous Notes Telephone Encounter - Emiliana Botello MSW - 05/14/2015 3:41 PM EST OFFICE OF CARE MANAGEMENT CCM Follow up call to hairspring adjuster prop making supervisor Anna Vela at [phone]/ fax [phone] regarding Ms. Holman's claim# [id number]. Ms. Vela reports PINKY had put Ms. Holman at [facility] with no further treatment recommendations. She requests notes, charges and program information and will forward toIME doctor for comment on consideration of coverage for FRP And local lodging. Response will be a couple weeks. PLAN: 1) Ms left for Ms. Holman requesting return call. Upon return call will update to Ms. Holman and healthcare team 2) monitor for approval vs denial as advocacy to patient pending this for possible Dec. FRP. documented in this encounter Plan of Treatment Upcoming Encounters Date Type Specialty Care Team Description 08/28/2022 Laboratory Appointment Lab 08/28/2022 Appointment Radiology Yul[facility] MD [facility] [address] [place] [address] (Wo rk) 08/28/2022 Office Visit Gastroenterology Andrew Smith PA [facility] [address], [place] [address] (Wo rk) documented as of this encounter Visit Diagnoses Not on filedocumented in this encounter Care Teams Battery Container Tester Relationship Specialty Start Date End Date Hai Gallegos MD PCP - General 05/31/10 10/09/[address] [place] [address] documented as of this encounter
--- OUTSIDE RECORDS SUMMARY | 2022-04-28 01:11 | XMS_ITS | Encounter Summary ---
:1960 Author Organization [facility] [place] [address] Care Team Providers Name Role Phone Hai Gallegos MD Primary Care Provider [phone] Reason for Visit Reason Onset Date Comments Other 05/07/2015 Encounter Details Date Type Department Care Team Description 05/07/2015 Telephone Spine Center at [facility] [place]iliana [place] [address] Social History Tobacco Use Types Packs/Day Years Used Date Current Every Day Smoker Cigarettes 0.5 Smokeless Tobacco: Never Used Sex Assigned at Date Recorded Not on file documented as of this encounter Miscellaneous Notes Telephone Encounter - Emiliana Botello MSW - 05/07/2015 3:50 PM EDT OFFICE OF CARE MANAGEMENT CCM Follow up call to Ms. Holman to explore readiness for FRP. She will work on identifying care for her mother for possible May.11 dates and update us. She also suggests contacting her assembler adjuster Aimee Pierson's Radhika Jacques ph [phone]/ fax [phone] timo Castillo at ph [phone] timo regarding her claim# [id number] which I will do pending re contact by her to confirm care forher mother. Also discussed in the absence of approval she could stay at [facility] whichshe was amenable to. PLAN: 1) monitor for confirmation of coverage for mother's care 2) follow up w wc pending this and if not assist in coordinating [facility] if Ms. Holman is amenable. 3) she does not have legal representation for [place] claim (request for pre authorization must be responded to by 05/12) but does for wrongful termination documented in this encounter Plan of Treatment Upcoming Encounters Date Type Specialty Care Team Description 08/28/2022 Laboratory Appointment Lab 08/28/2022 Appointment Radiology Yuliana Hernandez MD [facility] [place] [address] [place] [address] (Wo rk) 08/28/2022 Office Visit Gastroenterology Andrew Smith PA [facility] [address] [place] [address] (Wo rk) documented as of this encounter Visit Diagnoses Not on filedocumented in this encounter Care Teams Rewinder Operator Helper Relationship Specialty Start Date End Date Hai Gallegos MD PCP - General 05/31/10 10/09/[address] [place] [address] documented as of this encounter
--- OUTSIDE RECORDS SUMMARY | 2022-04-28 01:11 | XMS_ITS | Encounter Summary ---
:1960 Author Organization [facility] [place] [address] Care Team Providers Name Role Phone Hai Gallegos MD Primary Care Provider [phone] Reason for Visit Reason Comments Low Back Pain Encounter Details Date Type Department Care Team Description 07/30/2015 Office Visit Functional Sikhism Skylar Funes C hronic low back pain Program at [facility] OT [address] [place] [address] Social History Tobacco Use Types Packs/Day Years Used Date Current Every Day Smoker Cigarettes 0.5 Smokeless Tobacco: Never Used Sex Assigned at Date Recorded Not on file documented as of this encounter Progress Notes Skylar Funes OT - 07/30/2015 7:[address] [facility] Occupational Therapy Note [facility] Day 14 Protocol Subjective: Ms. Holman returns today for a scheduled follow up appointment with [facility]. She reports that she is intent on keeping up with a structured exercise program at home to continue progressing herphysical capacities. Overall, she reports feeling pleased with the functional gains she has made so far. Objective: Refer to [facility] protocol for details and explanation of each activity. Ms. Holman participated in the following activities: Functional Therapy 1. AM Session of functional conditioning ( X ) Completed ( ) Not Completed 2. Reviewed and finalized home lifting program. Home program was: ( X ) Unchanged: Provided a printed list of the weights of common household objects for her to put in her crate for crate lifting ( ) Modified to include: 3. Reviewed work readiness: ( X ) Completed ( ) Not Completed Met to review progress and outline work capacity accordingly. Finalized Worker's Compensation form with restrictions documented and anticipated work readiness date confirmed for 08/02/15. Assessment: Ms. Holman has progressed according to protocol, has met 2/3 of her initial lifting goals and made good progress with the thirs, and has made progress toward her 3-month functional goals. Plan: 1. Discharge with home conditioning program 2. Return for FRP follow up in 1 week, 1 month, and 3 months 3. Ms. Holman will contact FRP staff if she experiences problems with her home program or needs additional support for return to work issues. Length of Treatment: Ms. Holman participated in program activities from 8:00 a.m. to 12:00 p.m. today. A total of 15 minutes was spent finalizing individualized self-care strategies and functional activity guidelines and discussing work readiness. documented in this encounter Plan of Treatment Upcoming Encounters Date Type Specialty Care Team Description 08/28/2022 Laboratory Appointment Lab 08/28/2022 Appointment Radiology Yuliana Hernandez MD [facility] [address] [place] [address] (Wo rk) 08/28/2022 Office Visit Gastroenterology Andrew Smith PA [facility] [address] [place] [address] (Wo rk) documented as of this encounter Visit Diagnoses Diagnosis Chronic low back pain Lumbago documented in this encounter Care Teams Assembler Wire Mesh Gate Relationship Specialty Start Date End Date Hai Gallegos MD PCP - General 05/31/10 10/09/17 [facility] [place] [address] documented as of this encounter
--- OUTSIDE RECORDS SUMMARY | 2022-04-28 01:11 | XMS_ITS | Encounter Summary ---
:1960 Author Organization [facility] [place] [address] Care Team Providers Name Role Phone Hai Gallegos MD Primary Care Provider [phone] Reason for Visit Reason Comments Back Pain Encounter Details Date Type Department Care Team Description 07/21/2015 Office Visit Functional Hoahaoism Juan Carlos Foley, Chronic low back pain Program at [facility] PT [address] [place] [address] [place] [address] Social History Tobacco Use Types Packs/Day Years Used Date Current Every Day Smoker Cigarettes 0.5 Smokeless Tobacco: Never Used Sex Assigned at Date Recorded Not on file documented as of this encounter Progress Notes Juan Carlos Foley, PT - 07/21/2015 11:28 AM EST [facility] Physical Therapy Note [facility] Day 7 Protocol Subjective: Mary Beth returns today for a scheduled follow up appointment with [facility]; she reports still wanting to work toward her original goals. Objective: Treatment Received: Refer to [facility] protocol for explanation of program/physical therapy details. 1. Therapeutic and Functional Exercise: See [facility] flow sheets for progression. Strengthening and conditioning designed according to personal functional recovery goals and [facility] protocol was: (x) Completed ( ) Not completed 2. Home Exercise Program: Reviewed and modified current home exercise program. The Home Exercise Program was: (x) Unchanged ( ) Modified 3. Neurological Assessment: (x) No change in status ( ) Change in status 4. Stretching and Relaxation Training Sessions: (x) Completed ( ) Not completed Assessed overall progress of endurance training with treadmill re-test today: 6 METs. Measured limits of standing forward bend at 50 and backward bend at 15 degrees. Assessment: Mary Beth is progressing as planned [...] both a physical therapist and physical therapist sales service assistant. Cande Wilson PTA documented in this encounter Plan of Treatment Upcoming Encounters Date Type Specialty Care Team Description 08/28/2022 Laboratory Appointment Lab 08/28/2022 Appointment Radiology Yuliana Hernandez MD [facility] [address] [place] [address] (Wo rk) 08/28/2022 Office Visit Gastroenterology Andrew Smith PA [facility] [address] [place] [address] (Wo rk) documented as of this encounter Visit Diagnoses Diagnosis Chronic low back pain Lumbago documented in this encounter Care Teams Shot Peening Operator Relationship Specialty Start Date End Date Hai Gallegos MD PCP - General 05/31/10 10/09/17 [address] [facility] [place] [address] documented as of this encounter
--- OUTSIDE RECORDS SUMMARY | 2022-04-28 01:11 | XMS_ITS | Encounter Summary ---
:1960 Author Organization [facility] [place] [address] Care Team Providers Name Role Phone Hai Gallegos MD Primary Care Provider [phone] Reason for Visit Reason Comments Back Pain Encounter Details Date Type Department Care Team Description 07/19/2015 Office Visit Functional Sikh Juan Carlos Foley, Chronic low back pain Program at [facility] PT [address] [place] [address] [place] [address] Social History Tobacco Use Types Packs/Day Years Used Date Current Every Day Smoker Cigarettes 0.5 Smokeless Tobacco: Never Used Sex Assigned at Date Recorded Not on file documented as of this encounter Progress Notes Juan Carlos Foley, PT - 07/19/2015 10:42 AM EST [facility] Physical Therapy Note [facility] Day 5 Protocol Subjective: Mary Beth returns today for a scheduled follow up appointment with [facility]; she reports that shedid not experiment as planned with flexion strategies due to stomach bug type illness over the weekend. Objective: Treatment Received: Refer to [facility] protocol for explanation of program/physical therapy details. 1. Therapeutic and Functional Exercise: See FRP flow sheets for progression. Strengthening and conditioning designed according to personal functional recovery goals and [facility] protocol was: (x) Completed ( ) [...] both a physical therapist and physical therapist resident care assistant. Cande Wilson PTA documented in this encounter Plan of Treatment Upcoming Encounters Date Type Specialty Care Team Description 08/28/2022 Laboratory Appointment Lab 08/28/2022 Appointment Radiology Yuliana Hernandez MD [facility] [address] [place] [address] (Wo rk) 08/28/2022 Office Visit Gastroenterology Andrew Smith PA [facility] [address] [place] [address] (Wo rk) documented as of this encounter Visit Diagnoses Diagnosis Chronic low back pain Lumbago documented in this encounter Care Teams Flame Burner Relationship Specialty Start Date End Date Hai Gallegos MD PCP - General 05/31/10 10/09/17 [address] [place] [address] documented as of this encounter
--- OUTSIDE RECORDS SUMMARY | 2022-04-28 01:11 | XMS_ITS | Encounter Summary ---
:1960 Author Organization [facility] [place] [address] Care Team Providers Name Role Phone Hai Gallegos MD Primary Care Provider [phone] Reason for Visit Reason Comments Low Back Pain Encounter Details Date Type Department Care Team Description 07/22/2015 Office Visit Functional Scientology Skylar Funes C onic low back pain Program at [facility] OT [address] [place] [address] Social History Tobacco Use Types Packs/Day Years Used Date Current Every Day Smoker Cigarettes 0.5 Smokeless Tobacco: Never Used Sex Assigned at Date Recorded Not on file documented as of this encounter Progress Notes Skylar Funes OT - 07/22/2015 8:48 AM EST [facility] Occupational Therapy Note [facility] Day 8 Protocol Subjective: Ms. Holman returns today for a scheduled follow up appointment with [facility]. She reports that she has not been in contact with her Voc. Rehab. Counselor, and cannot remember her last name, however she has the email address and will contact her to let her know that she would like her to talk to the team to coordinate vocational planning. Objective: Refer to [facility] protocol for details and explanation of each activity. Ms. Holman participated in the following activities: Functional Therapy: 1. AM Session of functional conditioning ( X ) Completed ( ) Not Completed 2. PM Session of functional conditioning ( X ) Completed ( ) Not Completed Completed 30 minute indoor walk equalling 1 mile throughout hospital, including 3 staircases. Individualized Treatment: Increased resistance levels of functional [...] provided by both an Occupational Therapist and [employer] Fishing Boat Crewman, BRONWYN Ortega documented in this encounter Plan of Treatment Upcoming Encounters Date Type Specialty Care Team Description 08/28/2022 Laboratory Appointment Lab 08/28/2022 Appointment Radiology Yuliana Hernandez MD [facility] [address] [place] [address] (Wo rk) 08/28/2022 Office Visit Gastroenterology Andrew Smith PA [facility] [address] [place] [address] (Wo rk) documented as of this encounter Visit Diagnoses Diagnosis Chronic low back pain Lumbago documented in this encounter Care Teams Smasher Relationship Specialty Start Date End Date Hai Gallegos MD PCP - General 05/31/10 10/09/17 4 [place] [address] documented as of this encounter
--- OUTSIDE RECORDS SUMMARY | 2022-04-28 01:11 | XMS_ITS | Encounter Summary ---
:1960 Author Organization [facility] [place] [address] Care Team Providers Name Role Phone Hai Gallegos MD Primary Care Provider [phone] Reason for Visit Reason Comments Low Back Pain Encounter Details Date Type Department Care Team Description 07/19/2015 Office Visit Functional Jewish Skylar Funes C onic low back pain Program at [facility] OT [address] [place] [phone] Social History Tobacco Use Types Packs/Day Years Used Date Current Every Day Smoker Cigarettes 0.5 Smokeless Tobacco: Never Used Sex Assigned at Date Recorded Not on file documented as of this encounter Progress Notes Skylar Funes, OT - 07/19/2015 7:52 AM EST [facility] Occupational Therapy Note [facility] Day 5 Protocol Subjective: Ms. Holman returns today for a scheduled follow up appointment with [facility]. She reports feeling better after being out sick on Sunday. She also reports that the straight leg lifting and pegboard are still difficult for her and that her right foot is still bothering her. Objective: Refer to [facility] protocol for details and explanation of each activity. Ms. Holman participated in the following activities: Functional Therapy: 1. AM Session of functional conditioning ( X ) Completed ( ) Not Completed 2. PM Session of functional conditioning ( X ) Completed ( ) Not Completed Individualized Treatment: Increased resistance levels of functional conditioning exercises accordingto personal recovery goals. Met to further discuss and clarify functional recovery goals. Please see goals in initial [...] provided by both an Occupational Therapist and Remote Pilot Operator, BRONWYN Ortega documented in this encounter Plan of Treatment Upcoming Encounters Date Type Specialty Care Team Description 08/28/2022 Laboratory Appointment Lab 08/28/2022 Appointment Radiology Yuliana Hernandez MD [facility] [address] [place] [address] (Wo rk) 08/28/2022 Office Visit Gastroenterology Andrew Smith PA [facility] [address] [place] [address] (Wo rk) documented as of this encounter Visit Diagnoses Diagnosis Chronic low back pain Lumbago documented in this encounter Care Teams Missileman Relationship Specialty Start Date End Date Hai Gallegos MD PCP - General 05/31/10 10/09/17 [address] [place] [address] documented as of this encounter
--- NOTE | 2022-04-28 08:15 | DI.CT_ITS ---
Exam(s) CT BRAIN NECK CTA EXAM: CT BRAIN NECK CTA CLINICAL HISTORY: ? L ICA/MCA aneurysm,abnl brain mri, r90.89. TECHNIQUE: Imaging Protocol: Axial CT angiography was performed with multi-slice acquisition and mu lti-planar and/or 3D reconstructions. CONTRAST MATERIAL: Intravenous: Omnipaque 350 Contrast volume:structured data in ml COMPARISON: CT CT ABDOMEN PELVIS WO from 12/05/2021 MR MR BRAIN WO from 04/20/2022 FINDINGS: CTA Neck W: Aortic arch anatomy: The aortic arch anatomy is conventional. no significant stenosis at the origin t he great vessels off of the aortic arch. Anterior circulation: Both common carotid arteries ascend with normal luminal diameters. There is only mild plaque at the level the carotid bifurcation and proximal internal carotid arteries on each side, estimated less sherrill n 10 percent stenosis bilaterally. The internal carotid arteries are nicely patent above this level in the neck and are patent in the skull base-carotid canals. Posterior circulation: Both vertebral arteries originated conventional fashion off of the subclavian arteries with no stenos is at their origins and both vertebral arteries ascend with normal and equal luminal diameters in the foramen transversarium. No evidence of intraluminal thrombus nor dissection of the vertebral arteri es. At the skull base both vertebral arteries contribute equally to the formation of the basilar art jorge luis and both posterior inferior cerebellar arteries arise from the distal vertebral arteries at the s kull base. CTA Brain W: Anterior circulation: Both internal carotid arteries are patent in the skull base-carotid canals as well as within the cave rnous sinuses. 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 This measures appr oximately 6 mm craniocaudal x 3 mm wide x 4 mm AP. There appears to be some mural calcification in t he lateral wall of the aneurysm. Both A1 segments are patent as are the anterior cerebral arteries. There is no evidence of aneurysm at the level of the anterior communicating artery. Both middle cerebral arteries are patent with no significant stenosis. No aneurysms in these vessels . Posterior circulation: The basilar artery ascends in the midline with normal luminal diameter. Distally gives off superior cerebellar arteries and above this level terminates as patent bilateral posterior cerebral arteries. There is no evidence of aneurysm of the tip of the basilar artery. CT BRAIN: There is no evidence of intracranial hemorrhage, mass effect, or shift of midline structures. There are no extra-axial fluid collections. Ventricles are not enlarged or shifted. There are no ring enh ancing lesions in the brain and no abnormal meningeal enhancement. IMPRESSION: 1. 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 This findings corresponds to what was described on the recent conventional MRI scan o f 04/20/2022. There appears to be some calcification in its lateral wall. There are no other aneury sms evident in the brain. 2. No evidence of intracranial hemorrhage, intra or extra-axial. 3. There is only mild plaque at the level the carotid bifurcations in the neck with approximately 10 percent stenosis bilaterally. The vertebral arteries in the neck are patent and both contribute to th e formation of the basilar artery at the skull base. RADIATION DOSE DELIVERED: 2,114.01mGy.cm Total DLP DATA REPOSITORY: All CT scans at this facility are submitted to the National Radiology Data Registry (NRDR) Dose Index Registry (DIR) with the [employer] (ACR). RADIATION OPTIMIZATION: All CT scans at this facility use at least one of these dose optimization te chniques: automated exposure control; mA and/or kV adjustment per patient size (includes targeted exa ms where dose is matched to clinical indication); or iterative reconstruction.
[2022-04-28] MEDS: Omnipaque 350 MG/ML 500 ML BTL-Imaging package IJ (15:11)
== END ==
PROVIDERS: PCP Family Medicine; Visit Provider Psychiatry & Neurology Neurology
DX: R90.89 Other abnormal findings on diagnostic imaging of central nervous system (principal)
CPT/HCPCS: 70496; 70498; 82565

== ENCOUNTER → 2022-05-05 00:44 | Outpatient (CLI) | payer MEDICAID, SELFPAY ==
--- OUTSIDE RECORDS SUMMARY | 2022-05-05 00:45 | XMS_ITS | Clinical Summary ---
:1960 Author Organization [facility] [place] [address] Care Team Providers Name Role Phone Hai Lopez DO Primary Care Provider Allergies Active Allergy [...] Encounters Date Type Specialty Care Team Description 05/01/2022 Transcribe Orders Primary Care Ventura Mack, Cerebral a neurysmElizabeth MD nonruptured 04/28/2022 Ancillary Procedure Radiology Elizabeth Ricks MD 04/27/2022 Transcribe Orders Primary Care Ventura Mack Benign par oxysmal vertigo of right ear; MD Elizabeth Dizziness and g iddiness 04/20/2022 Ancillary Procedure Radiology Elizabeth Ricks MD 02/23/2022 Office Visit Gastroenterology Yuliana Hernandez (isis lcoholic steatohepatitis); MD Duong History of hepa titis C 02/23/2022 Hospital Encounter Radiology Yuliana Hernandez (no nalcoholic steatohepatitis); MD Duong History of hepa titis C 02/23/2022 Laboratory Appointment Lab BUI (nonalcoholic steatohepatitis ) 02/23/2022 Orders Only Gastroenterology Yuliana Hernandez (isis mellisaohsteffen Watters MD steatohepatitis ) from Last 3 Months Family [...] Lab 08/28/2022 Appointment Radiology Yuliana Hernandez MD [facility] [address] [place] [address] (Wo rk) 08/28/2022 Office Visit Gastroenterology Andrew Smith PA [facility] [address] [place] [address] (Wo rk) Health Maintenance Due Date [...] 08/01/2020 08/01/2019 Influenza (Flu) vaccine (1 of - 03/09/2022 Influenza standard series) DM Creatinine yearly 02/23/2023 02/23/2022, 08/21/2019, 08/01/2019, Additional history exists Lipid Screening 09/28/2023 09/27/2018 Colonoscopy 10/11/2027 10/10/2017, 10/10/2017 Procedures Procedure Name Priority Date/Time Associated Comments Diagnosis FILM LIBRARY STORAGE Routine 04/28/2022 12:00 Res ults for this ONLY CT HEAD AND SPINE AM EDT proce dure are in the results section. CT SCAN (SCAN) 04/28/2022 12:00 Results f or this AM EDT procedure are i n the results section. FILM LIBRARY STORAGE Routine 04/20/2022 12:00 Res ults for this ONLY MR HEAD AM EDT procedure are i n the results section. CT SCAN (SCAN) 04/20/2022 12:00 Results f or this AM EDT procedure are i n the results section. US ABDOMEN LIMITED Routine 02/23/2022 9:51 AM [...] results section. from Last 3 Months Results SCAN DOC: CT SCAN (04/28/2022 12:00 AM EDT)Only the most recent of2 results within the time period is included. Narrative 04/28/2022 12:00 AM EDT This result has an attachment that is no t available. Ordered by an unspecified provider. Scanning Provider MEDIA MGR SCAN EXT ORDR/RSLT Film Library- Storage Only CT Head And Spine (04/28/2022 12:00 AM EDT) Specimen (Source) Anatomical Location Collection Method / Collectio n Time Received Time / Laterality Volume Narrative [facility] - 05/02/2022 1:40 AM EDT This exam is auto-finalizing. It's purpo se is for storage only. Elizabeth Ricks MD [facility] [place]M LIBRARY ORDERABLES Performing Organization Address [facility] e Number [place], [place] Film Library- Storage Only MR Head (04/20/2022 12:00 AM EDT) Specimen (Source) Anatomical Location Collection Method / Collectio n Time Received Time / Laterality Volume Narrative [facility] - 05/02/2022 1:38 AM EDT This exam is auto-finalizing. It's purpo se is for storage only. Elizabeth Ricks MD [facility] FILM LIBRARY ORDERABLES Performing Organization Address [facility] e Number [place], [place] US Abdomen Limited Hepatology Protocol (02/23/2022 9:51 [...] Electronically signed by: Bernardo guillaume MD, Radiology [place] ([phone]), at 12:19 PM Thank you for letting us participate in the care of this patient. If you are a [facility] er and have any questions regarding this report, please contact the number above. For patients who have ques tions, please contact the [facility] that requested your imaging first. ?Bernardo Silva, Staff Physician Electronically Signed Final Report ?? 03:03 pm Narrative 02/23/2022 3:03 PM EDT Abdominal ? (Signed Final 02/23/2022 03:03 pm) PATIENT INFO: ID #: ? [id number] ?: ??[birth year] (61 yrs)(F) Name: ? MARY BETH HOLMAN ?Visit Date: 02/23/2022 09:49 am PERFORMED BY: Performed By: ? Sagrario Munoz RDMS Attending: ?Ruth Silva MD Referred By: ?YULIANA HERNANDEZ Location: ? [place] SERVICE(S) PROVIDED: [facility] - Hepatology Protocol - Filipe bellamy ?[id number] Limited Survey Single Organ or Quadrant - [id number] INDICATIONS: Hep C, F3, HCC screening COMPARISON: [...] 03:0 3 pm) PATIENT INFO: ID #: [id number] : 58 (61 y rs)(F) Name: MARY BETH HOLMAN Visit Date: 02/23 09:49 am PERFORMED BY: Performed By: Sagrario Munoz RDMS Attending: Bernardo Silva MD Referred By: YULIANA HERNANDEZ Location: [place] [facility] Hepatology Protocol - Filipe bellamy [id number] Limited Survey Single Organ or Quadrant - [id number] INDICATIONS: Hep C, F3, HCC screening COMPARISON: [...] Electronically signed by: Bernardo guillaume MD, Radiology [place] ([phone]), at 12:19 PM Thank you for letting us participate in the care of this patient. If you are a health care [facility] er and have any questions regarding this report, please contact the number above. For patients who have ques tions, please contact the [facility] that requested your imaging first. Bernardo Silva, Staff Physician Electronically Signed Final Report 02/23 03:03 pm Yuliana Hernandez MD IMG US GEN ORDERABLES (ABNORMAL) Hemogram (02/23/2022 8:38 AM EDT) Analysis Performed At Patho logist Time Signature WBC 9.0 4.0 - 9.5 [facility] LABORATORY RBC 6.07 (H) 4.00 - YULIANA JORGE 5.21 [facility] x10(6)/[facility] LABORATORY Hemoglobin 17.9 (H) 11.7 - YULIANA JORGE 15.5 g/dL [facility] LABORATORY Hematocrit 53.8 (H) 35.7 - YULIANA JORGE 45.8 % [facility] LABORATORY MCV 88.6 82.6 - [facility] 94.4 [facility] LABORATORY MCH 29.5 27.1 - YULIANA JORGE 32.0 pg [facility] LABORATORY MCHC 33.3 31.7 - YUL[place]NA JORGE 35.0 g/dL [facility] LABORATORY Platelets 171 145 - 357 [facility] x10(3)/[facility] LABORATORY RDWSD 50.0 (H) 37.0 - YUL[place]NA JORGE 46.0 [facility] LABORATORY RDWCV 15.6 (H) 11.5 - YUL[place]NA JORGE 14.1 % [facility] LABORATORY MPV 10.5 7.6 - 12.9 [facility] LABORATORY nRBC % Auto 0.0 % [facility] LABORATORY nRBC Abs Auto 0.000 0.000 - YULIANA JORGE 0.000 [facility] x10(3)/[facility] LABORATORY Specimen Anatomical Collection Method Collection Time Receive d Time (Source) Location / / Volume Laterality Blood 02/23/2022 8:38 AM 8:49 EDT AM EDT Resulting Agency Comment Spec In Lab Yuliana Hernandez MD HEMATOLOGY ORDERABLES Performing Organization Address City/State/[place] [address] Differential, Automated (02/23/2022 8:38 AM EDT) P athologist Signature Neutrophils % 65.2 % [facility] LABORATORY Neutr Abs (ANC) 5.87 1.70 - [facility] 6.10 [facility] x10(3)/[facility] LABORATORY Lymphocytes % 25.5 % [facility] LABORATORY Lymphocytes Abs 2.3 0.9 - 3.2 [facility] x10(3)/[facility] LABORATORY Monocytes % 6.0 % [facility] LABORATORY Monocyte Abs 0.5 0.3 - 0.9 [facility] x10(3)/[facility] LABORATORY Eosinophils % 2.4 % [facility] LABORATORY Eosinophils Abs 0.2 0.0 - 0.4 [facility] x10(3)/[facility] LABORATORY Basophils % 0.6 % [facility] LABORATORY Basophils Abs 0.0 0.0 - 0.1 [facility] x10(3)/[facility] LABORATORY Immature Gran % 0.30 % [facility] LABORATORY Comment: Immature granulocytes(IG's)percentage an d absolute count will include metamyelocytes, myelocytes, and promyelo cytes. Blood smears from CBCs yielding IG's will be scanned manually for concor dance. If this scan disagrees with the automated IG or if promyelocytes are not ed, a manual differential will be performed. Elaina Gran Abs 0.03 0.00 - 0.04 x10(3)/[facility] Y [facility] LABORATORY Specimen Anatomical Collection Method Collection Time Receive d Time (Source) Location / / Volume Laterality Blood 02/23/2022 8:38 AM 8:49 EDT AM EDT Resulting Agency Comment Spec In Lab Yuliana Hernandez MD HEMATOLOGY ORDERABLES Performing Organization Address City/State/[place] [address] AFP tumor marker (02/23/2022 8:38 AM EDT) athologist Signature AFP <1.9 <=8.3 ng/mL [facility] LABORATORY Comment: This result was generated [...] Hernandez MD CHEMISTRY ORDERABLES Performing Organization Address [facility] [place] [address] Prothrombin Time (02/23/2022 8:38 AM EDT) athologist Signature PT 11.0 9.4 - 12.5 [facility] LABORATORY INR 1.0 [facility] LABORATORY [...] Hernandez MD HEMATOLOGY ORDERABLES Performing Organization Address [facility] [place] [address] (ABNORMAL) Comprehensive metabolic panel (non-fasting) (02/23/2022 8:38 AM EDT) athologist Signature Glucose Lvl 162 65 - 199 [facility] mg/dL [facility] LABORATORY Comment: Diabetes: >=200 mg/dL plus symp toms BUN 12 8 - 18 mg/dL [facility] LABORATORY Creatinine 0.69 (L) 0.70 - 1.20 mg/dL [facility] [...] 107 mmol/L [facility] LABORATORY CO2 25 22 - 31 mmol/L [facility] LABORATORY Anion Gap 12 5 - 15 mmol/L [facility] LABORATORY Calcium 9.2 8.5 - 10.5 mg/dL [facility] LABORATORY Total Protein 7.6 6.1 - 8.0 g/dL [facility] LABORATORY Albumin 4.5 3.2 - 5.2 g/dL [facility] LABORATORY AST 25 0 - 30 unit/L [facility] LABORATORY ALT 15 0 - 30 unit/L [facility] LABORATORY Alk Phos 119 (H) 35 - 105 unit/L [facility] LABORATORY Total Bilirubin 0.3 0.2 - 1.3 mg/dL [facility] LABORATORY Estimated GFR 98 >=60 mL/min/1.73 m?? [facility] LABORATORY Comment: This patient's estimated GFR [...] Address City/State/ZIP Code Phon e Number YULIANA [facility] [place] [address] from Last 3 Months Insurance Payer Benefit Plan / Subscriber ID Effective Dates Phone Addre ss [place] [id number] 2018-Claudio [phone] [address] [facility] [address] [place], [place] [address] Advance Directives Latest Code Status on File Code Status Date Activated Date Inactivated Comments Full Code 02/23/2017 8:34 AM 02/23/2017 1:50 PM Does patient have capacity to make decision: Yes Care Teams Oven [place] Relationship Specialty Start Date End Date Hai Lopez, PCP - General Family Medicine 10/10/[address] [place], [place] [id number]
--- OUTSIDE RECORDS SUMMARY | 2022-05-05 00:45 | XMS_ITS | Encounter Summary ---
:1960 Author Organization [facility] [place] [address] Care Team Providers Name Role Phone Hai Lopez DO Primary Care Provider Encounter Details Date Type Department Care Team Description 08/21/2019 Laboratory Appointment Lab 3L Perla Gordon BUI (nonalcoholic steatohepatitis); [facility] Hepatitis C virus infection without hepatic coma, [place] [id number] Social History Tobacco Use Types Packs/Day Years [...] Lab 08/28/2022 Appointment Radiology Perla Hernandez MD [facility] [address] [place] 0375 (Wo rk) 08/28/2022 Office Visit Gastroenterology Andrew Smith PA [facility] [address] [place] 0375 (Wo rk) documented as of this [...] Signature Bili, Direct 0.1 0.0 - 0.3 [facility] mg/dL [facility] LABORATORY Specimen Anatomical Collection Method Collection Time Receive d Time (Source) Location / / Volume Laterality Blood specimen 08/21/2019 9:23 AM 020 9:40 (specimen) EST AM EST Resulting Agency Comment Spec In Lab Perla Hernandez MD CHEMISTRY ORDERABLES Performing Organization Address City/State/[place] [address] Differential, Automated (08/21/2019 9:23 AM EST) athologist Signature Neutrophils % 54.8 % [facility] LABORATORY Neutr Abs (ANC) 4.44 1.70 - [facility] 6.10 [facility] x10(3)/[facility] LABORATORY Lymphocytes % 33.9 % [facility] LAB[facility] Lymphocytes Abs 2.7 0.9 - 3.2 [facility] x10(3)/[facility] LABORATORY Monocytes % 6.7 % [facility] Monocyte Abs 0.5 0.3 - 0.9 [facility] x10(3)/[facility] LABORATORY Eosinophils % 3.1 % [facility] Eosinophils Abs 0.2 0.0 - 0.4 [facility] x10(3)/[facility] LABORATORY Basophils % 1.1 % [facility] Basophils Abs 0.1 0.0 - 0.1 [facility] x10(3)/[facility] LABORATORY Immature Gran % 0.40 [...] Elaina Gran Abs 0.03 0.00 - 0.04 x10(3)/[facility] LABORATORY Specimen Anatomical Collection Method Collection Time Receive d Time (Source) Location / / Volume Laterality Blood specimen 08/21/2019 9:23 AM 020 9:35 (specimen) EST AM EST Resulting Agency Comment Spec In Lab Perla Hernandez MD HEMATOLOGY ORDERABLES Performing Organization Address City/State/[place] [address] (ABNORMAL) Hemogram (08/21/2019 9:23 AM EST) Analysis Performed At Patho logist Time Signature WBC 8.1 4.0 - 9.5 [facility] x10(3)/[facility] LABORATORY RBC 5.91 (H) 4.00 - [facility] 5.21 [facility] x10(6)/[facility] LABORATORY Hemoglobin 17.2 (H) 11.7 - [facility] 15.5 gm/dL [facility] LABORATORY Hematocrit 52.5 (H) 35.7 - PERLA OROPEZACK 45.8 % [facility]ORATORY MCV 88.8 82.6 - [facility] 94.4 [facility] LABORATORY MCH 29.1 27.1 - PERLA OROPEZACK 32.0 pg [facility] LABORATORY MCHC 32.8 31.7 - PERLA OROPEZACK 35.0 gm/dL [facility] LABORATORY Platelets 189 145 - 357 [facility] x10(3)/[facility] LABORATORY RDWSD 44.9 37.0 - PERLA OROPEZACK 46.0 [facility] LABORATORY RDWCV 13.8 11.5 - PERLA KINNEYCOCK 14.1 % [facility] LABORATORY MPV 10.8 7.6 - 12.9 [facility] LABORATORY nRBC % Auto 0.0 % [facility] LAB[facility] nRBC Abs Auto 0.000 0.000 - PERLA REYESJORGE 0.000 [facility] x10(3)/[facility] LABORATORY Specimen Anatomical Collection Method Collection Time Receive d Time (Source) Location / / Volume Laterality Blood specimen 08/21/2019 9:23 AM 020 9:35 (specimen) EST AM EST Resulting Agency Comment Spec In Lab Perla Hernandez MD HEMATOLOGY ORDERABLES Performing Organization Address City/State/[place] [address] (ABNORMAL) Comprehensive metabolic panel (non-fasting) (08/21/2019 9:23 AM EST) P athologist Signature Glucose Lvl 212 (H) 65 - 199 [facility] mg/dL [facility] LABORATORY Comment: Diabetes: >=200 mg/dL plus symp toms BUN 13 8 - 18 mg/dL [facility] LABORATORY Creatinine 0.75 0.70 - 1.20 mg/dL [facility] LABORATORY Sodium 139 135 - 145 mmol/L [facility] LABORATORY Potassium 4.2 3.5 - 5.0 mmol/L [facility] [...] Anion Gap 11 5 - 15 mmol/L [facility] LABORATORY Calcium 9.5 8.5 - 10.5 mg/dL [facility] LABORATORY Total Protein 7.4 6.1 - 8.0 gm/dL [facility] LABORATORY Albumin 4.5 3.2 - 5.2 gm/dL [facility] AST 17 0 - 30 unit/L [facility] LAB[facility] ALT 19 0 - 30 unit/L [facility] LAB[facility] Alk Phos 116 (H) 35 - 105 unit/L [facility] Total Bilirubin 0.5 0.2 - 1.3 mg/dL [facility] LABORATORY Estimated GFR 87 >=60 mL/min/1.73 m?? [facility] Comment: The eGFR was calculated using the CKD-EP I equation. As with all creatinine based estimates of kidney function, eGFR values calculated with the CKD-EPI equation are not accurate in patients wi th acute kidney failure, extremes of body mass or the acutely ill. http://[employer]/[facility] eGFR 101 >=60 mL/min/1.73 m?? [facility] Comment: The eGFR was calculated using the CKD-EP I equation. As with all creatinine based estimates of kidney function, eGFR values calculated with the CKD-EPI equation are not accurate in patients wi th acute kidney failure, extremes of body mass or the acutely ill. http://[employer]/[facility] Specimen Anatomical Collection Method Collection Time Receive d Time (Source) Location / / Volume Laterality Blood specimen 08/21/2019 9:23 AM 020 9:40 (specimen) EST AM EST Resulting Agency Comment Spec In Lab Perla Hernandez MD CHEMISTRY ORDERABLES Performing Organization Address City/State/[place] [address] Prothrombin Time (08/21/2019 9:23 AM EST) P athologist Signature PT 11.4 9.4 - 12.5 [facility] LABORATORY INR 1.0 [facility] [...] Hernandez MD HEMATOLOGY ORDERABLES Performing Organization Address City/[facility]/[place] [address] AFP tumor marker (08/21/2019 9:23 AM EST) P athologist Signature AFP 1.9 <=8.3 ng/mL [facility] LABOR[facility] Specimen Anatomical Collection Method Collection Time Receive d Time (Source) Location / / Volume Laterality Blood specimen 08/21/2019 9:23 AM 020 9:35 (specimen) EST AM EST Resulting Agency Comment Spec In Lab Perla Hernandez MD CHEMISTRY ORDERABLES Performing Organization Address City/[facility]/[place] [address] documented in this encounter Visit Diagnoses Diagnosis BUI (nonalcoholic steatohepatitis) Other chronic nonalcoholic liver disease Hepatitis C virus infection without hepa tic coma, unspecified chronicity documented in this encounter Care Teams Customer Accounts Advisor Relationship Specialty Start Date End Date Hai Lopez DO PCP - General Family Medicine 10/10/17 [address] [place] [address] documented as of this encounter
--- OUTSIDE RECORDS SUMMARY | 2022-05-05 00:45 | XMS_ITS | Encounter Summary ---
:1960 Author Organization [facility] Address [address] [place] [address] Care Team Providers Name Role Phone Hai Gallegos MD Primary Care Provider Unavailable Encounter Details Date Type Department Care Team Description 03/28/2012 Results Only [facility] Juve Dawkins MD Laboratory Services - [address] [place] [address] [place] [address] [phone] Social History Tobacco Use Types Packs/Day Years Used Date Never Assessed Sex Assigned at Date Recorded Not on file documented as of this encounter Plan of Treatment Not on filedocumented as of this encounter Procedures Procedure Name Priority Date/Time Associated Diagnosis Comme [facility] SURGICAL PATHOLOGY Routine 03/28/2012 0:00 EDT Re [...] MARY BETH ANTUNEZ ? Accession #: ? [id number] ? : ? 1960 (Age: 51) ??F [...] Deeper levels have been examined. ??(Dr. [address]erman )/[facility] Document reviewed and electronically signed by: CHARMAINE [...] Organization Address City/State/ZIP Code Phon e Number [facility] LABORATORY [address] [place] [address] SERVICES [facility] [address] [place] [address] documented in this encounter Visit Diagnoses Not on filedocumented in this encounter Care Teams Picking Supervisor Relationship Specialty Start Date End Date Hai Gallegos MD PCP - General 08/12/10 documented as of this encounter
--- OUTSIDE RECORDS SUMMARY | 2022-05-05 00:45 | XMS_ITS | Encounter Summary ---
:1960 Author Organization [facility] Address [address] [place] [address] Care Team Providers Name Role Phone Hai Gallegos MD Primary Care Provider Unavailable Encounter Details Date Type Department Care Team Description 09/09/2020 Lab Requisition [facility] Outr Resulting Lab, Pathology & Laboratory Provider [facility] [address] [place] [address] Social History Tobacco Use Types Packs/Day Years [...] 13:35 EST) Pathologist Sig nature Hold Hold [facility] LABORATOR Y SERVICES Specimen Blood - Venous blood (substance) Performing Organization Address City/[facility]/ZIP Code Phon e Number [facility] LABORATORY [address] [place] [address] SERVICES RHEUMATOID FACTOR (09/09/2020 13:35 EST) Pathologist Sig nature Rheumatoid Factor <8.6 <12.0 IU/mL [facility] LABORATORY SERVICES Specimen Blood - Venous blood (substance) Performing Organization Address City/[facility]/ZIP Code Phon e Number [facility] LABORATORY [address] [place] [address] SERVICES CCP ANTIBODIES (09/09/2020 13:35 EST) Pathologist Sig nature CCP Antibodies <2.5 <5.0 U/mL [facility] LABORAT ORY SERVICES Specimen Blood - Venous blood (substance) Performing Organization Address City/State/ZIP Code Phon e Number [facility] LABORATORY [address] [place] [address] SERVICES documented in this encounter Visit Diagnoses Not on filedocumented in this encounter Care Teams Farm Appraiser Relationship Specialty Start Date End Date Hai Gallegos MD PCP - General 08/12/10 documented as of this encounter
--- OUTSIDE RECORDS SUMMARY | 2022-05-05 00:45 | XMS_ITS | Encounter Summary ---
:1960 Author Organization [facility] [place] [address] Care Team Providers Name Role Phone Hai Lopez Corey MOORE Primary Care Provider Encounter Details Date Type Department Care Team Description 07/26/2021 Orders Only Gastroenterology at [facility] Perla Hernandez, BUI (nonalcoholic steatohep atitis); [facility] Lisa soto MD [place] of [place] [address] [facility] [phone] [place] [address] Social History Tobacco Use Types Packs/Day Years [...] Lab 08/28/2022 Appointment Radiology Perla Hernandez MD [facility] [address] [place] [address] (Wo rk) 08/28/2022 Office Visit Gastroenterology Andrew Smith PA [facility] [address] [place] [address] (Wo rk) documented [...] Electronically signed by: Bernardo guillaume MD, [facility] ([phone]), at 12:19 PM Thank you for letting us participate in the care of this patient. If you are a [facility] er and have any questions regarding this report, please contact the number above. For patients who have ques tions, please contact the [facility] professio nal that requested your imaging first. ?Bernardo Silva, Staff Physician Electronically Signed Final Report ?? 03:03 pm Narrative 02/23/2022 3:03 PM EDT Abdominal ? (Signed Final 02/23/2022 03:03 pm) PATIENT INFO: ID #: ? [id number] ?: ??[birth year] (61 yrs)(F) Name: ? MARY BETH ANTUNEZ ?Visit Date: 02/23/2022 09:49 am PERFORMED BY: Performed By: ? Sagrario Munoz RDMS Attending: ?Ruth Silva MD Referred By: ?PERLA HERNANDEZ Location: ? [place] [facility]) [facility] Hepatology Protocol - Abdo mia ?[id number] Limited Survey Single Organ or Quadrant - [id number] INDICATIONS: Hep C, F3, HCC screening COMPARISON: [...] 03:0 3 pm) PATIENT INFO: ID #: [id number] : 58 (61 y rs)(F) Name: MARY BETH ANTUNEZ Visit Date: 02/23 09:49 am PERFORMED BY: Performed By: Sagrario Munoz RDMS Attending: Bernardo Silva MD Referred By: PERLA HERNANDEZ Location: [place] SERVICE(S) [facility] - Hepatology Protocol - Filipe bellamy [id number] Limited Survey Single Organ or Quadrant - [id number] INDICATIONS: Hep C, F3, HCC screening COMPARISON: [...] Electronically signed by: Bernardo guillaume MD, Radiology [place] ([phone]), at 12:19 PM Thank you for letting us participate in the care of this patient. If you are a [facility] er and have any questions regarding this report, please contact the number above. For patients who have ques tions, please contact the [facility] professio nal that requested your imaging [...] disease documented in this encounter Care Teams Technical Sales Consultant Relationship Specialty Start Date End Date Hai Lopez DO PCP - General Family Medicine 10/10/[address] [place] [address] documented as of this encounter
--- OUTSIDE RECORDS SUMMARY | 2022-05-05 00:45 | XMS_ITS | Encounter Summary ---
:[address] [facility] Address [address] [place] [address] Care Team Providers Name Role Phone Hai Gallegos MD Primary Care Provider Unavailable Encounter Details Date Type Department Care Team Description 08/11/2010 Results Only [facility] Stephane Marie MD Laboratory Services - [address] [place] [address] [phone] Social History Tobacco Use Types Packs/Day Years Used Date Never Assessed Sex Assigned at Date Recorded Not on file documented as of this encounter Plan of Treatment Not on filedocumented as of this encounter Procedures Procedure Name Priority Date/Time Associated Diagnosis Comme [facility] SURGICAL PATHOLOGY Routine 08/11/2010 0:00 EST Re sults for this procedure are i n the results section. documented in this encounter Results SURGICAL PATHOLOGY (08/11/2010 0:00 EST) Pathology Report: SURGICAL PATHOLOGY REPORT ? ED [facility] Reports generated via [employer] interface contain original data; ? LAB however they are lacking the format of the original report. ? Caution should be taken when reading/interpreting unformatted reports. ? Name: ? FAVREAU, MARY BETH L ? Accession #: ? [id number] ? : ? 1960 (Age: 49) ??F ? Collec t Date: ? 08/11/2010 ? Location: ? [facility] ? R eceive Date: ? 08/11/2010 ? Provider: ANTHONY MARIE MD ? Copy to: HAI GALLEGOS M D ? Final Pathologic Diagnosis: ? Soft [...] onically signed by: ? CELESTE Morrell BUTNOChele MD ? Report ??Date: 08/15/2010 11 :52 ? By the signature above, the attending physician certifies that he/she has ? personally conducted a gross and/or microscopic examination of the described ? specimens and rendered or co nfirmed the above diagnosis. ? Specimen(s) Received: ? Bx esophagus at 35 cm ? Clinical History: ? Epigastric pain ? Gross Description: ? Received in Danielee' s fixative labelled [place], Mary Beth and bx esophagus 35 cm are four leonardo-pink tis sues averaging 0.3 x 0.3 x 0.2 cm. ??The specimens ?? are submitted as (A1) and (A 2). (Dr. Cai)/mpl ? End of Report ? Specimen Performing Organization Address City/State/ZIP Code Phon e Number [facility] LABORATORY [address] [place] [address] [facility] [address] [place] [address] documented in this encounter Visit Diagnoses Not on filedocumented in this encounter Care Teams Double Cutter Relationship Specialty Start Date End Date Hia Gallegos MD PCP - General 08/12/10 documented as of this encounter
--- OUTSIDE RECORDS SUMMARY | 2022-05-05 00:45 | XMS_ITS | Encounter Summary ---
:1960 Author Organization [facility] [place] [address] Care Team Providers Name Role Phone JohnHai DO Primary Care Provider Encounter Details Date Type Department Care Team Description 02/17/2019 Telephone Gastroenterology at [facility] [place] [address] Social History Tobacco Use Types Packs/Day [...] MD [facility] [address] [place] [address] (Wo rk) 08/28/2022 Office Visit Gastroenterology Andrew Smith PA [facility] [address] [place], [place] [address] (Wo rk) documented as of this encounter Visit Diagnoses Not on filedocumented in this encounter Care Teams Veterinary Microbiologist Relationship Specialty Start Date End Date Hai Lopez DO PCP - General Family Medicine 10/10/17 [address] [place] [address] documented as of this encounter
--- OUTSIDE RECORDS SUMMARY | 2022-05-05 00:45 | XMS_ITS | Encounter Summary ---
:1960 Author Organization [facility] Address [address] [place] [address] Care Team Providers Name Role Phone Hai Gallegos MD Primary Care Provider Unavailable Encounter Details Date Type Department Care Team Description 11/19/2020 Lab Requisition [facility] Outr Resulting Lab, Pathology & Laboratory Provider [facility] [address] [place] [address] Social History Tobacco Use Types Packs/Day Years [...] Sig nature Lyme Ab NegativeComment: New Negative [facility] 3rd generation assay LABORATORY SERVICES in use 12/17/2019 Specimen Blood - Venous blood (substance) Performing Organization Address City/State/ZIP Code Phon e Number [facility] LABORATORY [address] [place] [address] SERVICES documented in this encounter Visit Diagnoses Not on filedocumented in this encounter Care Teams Turner And Former Automatic Relationship Specialty Start Date End Date Hai Gallegos MD PCP - General 08/12/10 documented as of this encounter
--- OUTSIDE RECORDS SUMMARY | 2022-05-05 00:45 | XMS_ITS | Encounter Summary ---
:1960 Author Organization [facility] [place] [address] Care Team Providers Name Role Phone Hai Lopez Corey MOORE Primary Care Provider Encounter Details Date Type Department Care Team Description 02/23/2022 Orders Only Gastroenterology at [facility] Yuliana Hernandez, BUI (nonalcoholic [facility] Lisa soto MD steatohepatitis) [place] [address] [facility] [phone] [place] [address] Social History Tobacco Use Types Packs/Day Years [...] Lab 08/28/2022 Appointment Radiology Yuliana Hernandez MD [facility] er [address] [place] 0[address] (Wo rk) 08/28/2022 Office Visit Gastroenterology Andrew Smith PA [facility] [address] [place] [place] [address] (Wo rk) documented as of this encounter Results AFP tumor marker (02/23/2022 8:38 AM EDT) athologist Signature AFP <1.9 <=8.3 ng/mL [facility] LABORATORY Comment: This result was [...] Hernandez MD CHEMISTRY ORDERABLES Performing Organization Address [facility] [place] [address] Prothrombin Time (02/23/2022 8:38 AM EDT) athologist Signature PT 11.0 9.4 - 12.5 [facility] LABORATORY INR 1.0 [facility] LABORATORY Comment: An INR <2.0 [...] Hernandez MD HEMATOLOGY ORDERABLES Performing Organization Address City/[facility] [place] [address] (ABNORMAL) Comprehensive metabolic panel (non-fasting) (02/23/2022 8:38 AM EDT) athologist Signature Glucose Lvl 162 65 - 199 [facility] mg/dL [facility] LABORATORY Comment: Diabetes: >=200 mg/dL plus symp toms BUN 12 8 - 18 mg/dL [facility] LABOR[facility]ORY Creatinine 0.69 (L) 0.70 - 1.20 mg/dL [facility] LABORATORY Sodium 139 135 - 145 mmol/L [facility] LABORATORY Potassium 4.1 3.5 - 5.0 mmol/L [facility] LABOR[facility]ORY Comment: Please note: ??Patients with WBC >100,00 0 may have falsely elevated Potassium levels. ??For accurate Potassium quantif ication in these patients send serum separator tube (gold top) for subsequent determinations. ??Contact the Clinical Chemistry Laboratory if there are any qu estions. Chloride 102 98 - 107 mmol/L [facility] LABORATORY CO2 25 22 - 31 mmol/L [facility]OR[facility] Anion Gap 12 5 - 15 mmol/L [facility]OR[facility] Calcium 9.2 8.5 - 10.5 mg/dL [facility] LABORATORY Total Protein 7.6 6.1 - 8.0 g/dL [facility]OR[facility]ORY Albumin 4.5 3.2 - 5.2 g/dL [facility]OR[facility] AST 25 0 - 30 unit/L [facility] ALT 15 0 - 30 unit/L [facility] Alk Phos 119 (H) 35 - 105 unit/L [facility]OR[facility] Total Bilirubin 0.3 0.2 - 1.3 mg/dL [facility] LABORATORY Estimated GFR 98 >=60 mL/min/1.73 m?? [facility]OR[facility]ORY Comment: This patient's estimated [...] Organization Address City/State/[place] [address] documented in this encounter Visit Diagnoses Diagnosis BUI (nonalcoholic steatohepatitis) Other chronic nonalcoholic liver disease documented in this encounter Care Teams Medical Transcription Editor Relationship Specialty Start Date End Date Hai Lopez DO PCP - General Family Medicine 10/10/[address] [place] [address] documented as of this encounter
--- OUTSIDE RECORDS SUMMARY | 2022-05-05 00:45 | XMS_ITS | Encounter Summary ---
:1960 Author Organization [facility] [place] [address] Care Team Providers Name Role Phone JohnHai DO Primary Care Provider Encounter Details Date Type Department Care Team Description 08/21/2019 Hospital Encounter Ultrasound at [facility] Perla Hernandez, BUI (nonalcoholic steatohep atitis); [facility] Hepatitis C virus infection without hepa tic coma, unspecified chronicity [facility] [address] [place], [place] [phone] [facility] Social History Tobacco Use Types Packs/Day Years [...] Perla Hernandez MD [facility] [address] [place] [address] (Wo rk) 08/28/2022 Office Visit Gastroenterology Andrew Smith PA [facility] [address] [place] [address] (Wo rk) documented as of [...] questions regarding this report, please contact nilda gray number below. Electronically signed by: Babar munguia, [facility] [place] ([phone]), at 9:03 AM ? Babar Higuera, Staff Physician Electronically Signed Final Report ?? 09:11 am Narrative 08/21/2019 9:12 AM EST Abdominal ? (Signed Final 08/21/2019 09:11 am) PATIENT INFO: ID #: ? [id number] ?: ??[birth year] (58 yrs) Name: ? MARY BETH ANTUNEZ ?Visit Date: 08/21/2019 08:38 am PERFORMED BY: Performed By: ? More Mccullough RDMS Attending: ?Kalen REBOLLAR, Eleno Mejia Referred By: ?PERLA HERNANDEZ Location: ? [place] SERVICE(S) PROVIDED: ??UABDLIM - Hepatology Protocol - Abdom inal ? [id number] ??Limited Survey Single Organ or Quadra nt - ??[id number] INDICATIONS: ??s/p Hep C treatment, high grade [...] 09:1 1 am) PATIENT INFO: ID #: [id number] : [birth year] (58 y rs) Name: MARY BETH ANTUNEZ Visit Date: 08/21 08:38 am PERFORMED BY: Performed By: More Mccullough RDMS Attending: Babar Higuera MD Referred By: PERLA HERNANDEZ Location: [place] SERVICE(S) PROVIDED: UABDLIM - Hepatology Protocol [place]domin [place] [id number] Limited Survey Single Organ or Quadrant - [id number] INDICATIONS: s/p Hep C treatment, high grade [...] below. Electronically signed by: Babar munguia [facility] [place] ([phone]), at 9:03 AM Babar Higuera, Staff Physician Electronically Signed Final Report 08/21 09:11 am Perla Hernandez MD IMG US GEN ORDERABLES documented in this encounter Visit Diagnoses Diagnosis BUI (nonalcoholic steatohepatitis) Other chronic nonalcoholic liver disease Hepatitis C virus infection without hepa tic coma, unspecified chronicity documented in this encounter Care Teams Lang Path Therapist Relationship Specialty Start Date End Date Myrter, Hai A, DO PCP - General Family Medicine 10/10/[address] [place] [address] documented as of this encounter
--- OUTSIDE RECORDS SUMMARY | 2022-05-05 00:45 | XMS_ITS | Encounter Summary ---
:1960 Author Organization [facility] [place] [address] Care Team Providers Name Role Phone John Hai Nicole DO Primary Care Provider Encounter Details Date Type Department Care Team Description 12/05/2021 Ancillary Procedure Radiology Library at Elizabeth Ricks [facility] [place] [address] [address] [place] [address] (Wo rk) Social History Tobacco Use Types [...] Yuliana Hernandez MD [facility] [address] [place] [address] (Wo rk) 08/28/2022 Office Visit Gastroenterology Andrew Smith PA [facility] [address] [place] [address] (Wo rk) documented as of this encounter Procedures Procedure Name Priority Date/Time Associated Diagnosis Comme nts FILM LIBRARY Routine 12/05/2021 12:00 AM Results for this STORAGE ONLY CT EDT procedure ar e in ABDOMEN AND PELVIS the resul ts section. documented in this encounter Results Film Library- Storage Only CT Abdomen & Pelvis (12/05/2021 12:00 AM EDT) Specimen (Source) Anatomical Location Collection Method / Collectio n Time Received Time / Laterality Volume Narrative RAD - 05/02/2022 1:42 AM EDT This exam is auto-finalizing. It's purpo se is for storage only. Elizabeth Ricks MD IMAdel[facility] FILM LIBRARY ORDERABLES Performing Organization Address City/State/ZIP Code Phon e Number [place], [place] documented in this encounter Visit Diagnoses Not on filedocumented in this encounter Care Teams Laborer Salvage Relationship Specialty Start Date End Date Hai Lopez DO PCP - General Family Medicine 10/10/17 [address] [facility] [address] [address] documented as of this encounter
--- OUTSIDE RECORDS SUMMARY | 2022-05-05 00:45 | XMS_ITS | Encounter Summary ---
:1960 Author Organization [facility] Address [address] [place] [address] Care Team Providers Name Role Phone Unavailable Primary Care Provider Unavailable Encounter Details Date Type Department Care Team Description 01/23/2006 Results Only [facility] - Doreen George son, Glenny Quigley, TOOL GRINDER OPERATOR SURFACE conversion [address] [place] [phone] (Wo rk) Social History Tobacco Use Types [...] BETH HICKEY ? Accession #: ? [id number] : ? 1960 (Age: 45) ??F ?Collect Date: ? 01/06 Location: ? [facility] ? Receive Date : ? 01/25/2006 Provider: ?GLENNY FELICIANO TOOL GRINDER OPERATOR SURFACE Copy to: ? Specimen/Source: ? ThinPrep Pap Test, Cervix, processed on [employer] ThinPrep Imaging System, with manual evaluation Last [...] Organization Address City/State/ZIP Code Phon e Number [facility] [address] [place] [address] SERVICES ED [facility] [address] [place] [address] documented in this encounter Visit Diagnoses Not on filedocumented in this encounter
--- OUTSIDE RECORDS SUMMARY | 2022-05-05 00:45 | XMS_ITS | Encounter Summary ---
:1960 Author Organization [facility] Address [address] [place] [address] Care Team Providers Name Role Phone Hai Gallegos MD Primary Care Provider Unavailable Encounter Details Date Type Department Care Team Description 03/22/2021 Lab Requisition [facility] Outr Resulting Lab, Pathology & Laboratory Provider [facility] [address] [place], [place] [address] Social History Tobacco Use Types Packs/Day Years Used Date Never Assessed Sex Assigned at Date Recorded Not on file documented as of this encounter Plan of Treatment Not on filedocumented as of this encounter Procedures Procedure Name Priority Date/Time Associated Diagnosis Comme nts COVID-19 TEST [facility] Today 03/21/2021 12:50 LAB PCR EDT COVID-19 TESTING Routine 03/21/2021 12:50 Results for this EDT procedure are i n the results section. documented in this encounter Results COVID-19 TEST [facility] LAB PCR (03/21/2021 12:50 EDT) Specimen Swab - Entire nasopharynx (body structur e) Performing Organization Address City/State/ZIP Code Phon e Number [facility] [address] [place] [address] SERVICES COVID-19 TESTING (03/21/2021 12:50 EDT) COVID-19 rt-PCR Negative Negative [facility] Result Comment: [facility] This test has not been FDA c leared or approved. This test has been authorized by FDA under an EUA for use by authorized laboratories. This test has been authorized only for detection of nucleic acid fro SERVICES m 2018-nCoV, not for any oth er viruses or [...] developed and its performance characteristics determined by [facility]. It has not been cleared or [...] testing. This test is based on the C COVID-19 Emergency Use Authorization (EUA) assay, with minor modification as defined by the FDA Performed on the [employer] Flex RT-PCR System. This test was developed and its performance characteristics determined by [facility]. It has not been cleared or [...] defined by the FDA Performed on the [employer] Pro RT-PCR System. Performing Lab [facility] Lab [facility] SERVICES Specimen Swab Performing Organization Address City/State/ZIP Code Phon e Number [facility] [address] [place] [address] SERVICES documented in this encounter Visit Diagnoses Not on filedocumented in this encounter Care Teams Foiling Machine Operator Relationship Specialty Start Date End Date Hai Gallegos MD PCP - General 08/12/10 documented as of this encounter
--- OUTSIDE RECORDS SUMMARY | 2022-05-05 00:45 | XMS_ITS | Encounter Summary ---
:1960 Author Organization [facility] [place] [address] Care Team Providers Name Role Phone Hai Lopez DO Primary Care Provider Encounter Details Date Type Department Care Team Description 02/23/2022 Laboratory Appointment Lab 3L Perla Gordon BUI (nonalcoholic [facility] steatohepatitis) [place] [address] Social History Tobacco Use Types Packs/Day Years [...] Lab 08/28/2022 Appointment Radiology Perla Hernandez MD [facility] [address] [place] [address] (Wo rk) 08/28/2022 Office Visit Gastroenterology Andrew Smith PA [facility] [address] [place] [address] (Wo rk) documented as of [...] EDT) athologist Signature Neutrophils % 65.2 % [facility] Neutr Abs (ANC) 5.87 1.70 - [facility] 6.10 [facility] x10(3)/[facility] LABORATORY Lymphocytes % 25.5 % [facility] Lymphocytes Abs 2.3 0.9 - 3.2 [facility] x10(3)/[facility] LABORATORY Monocytes % 6.0 % [facility] Monocyte Abs 0.5 0.3 - 0.9 [facility] x10(3)/[facility] LABORATORY Eosinophils % 2.4 % [facility] Eosinophils Abs 0.2 0.0 - 0.4 [facility] x10(3)/[facility] LABORATORY Basophils % 0.6 % [facility] Basophils Abs 0.0 0.0 - 0.1 [facility] x10(3)/[facility] LABORATORY Immature Gran % 0.30 % [facility] Comment: Immature granulocytes(IG's)percentage an d absolute count will include metamyelocytes, myelocytes, and promyelo cytes. Blood smears from CBCs yielding IG's will be scanned manually for concor dance. If this scan disagrees with the automated IG or if promyelocytes are not ed, a manual differential will be performed. Elaina Gran Abs 0.03 0.00 - 0.04 x10(3)/[facility] Specimen Anatomical Collection Method Collection Time Receive d Time (Source) Location / / Volume Laterality Blood 02/23/2022 8:38 AM 8:49 EDT AM EDT Resulting Agency Comment Spec In Lab Perla Hernandez MD HEMATOLOGY ORDERABLES Performing Organization Address City/State/[place] [address] (ABNORMAL) Hemogram (02/23/2022 8:38 AM EDT) Analysis Performed At Patho logist Time Signature WBC 9.0 4.0 - 9.5 [facility] x10(3)/[facility] LABORATORY RBC 6.07 (H) 4.00 - [facility] JORGE 5.21 [facility] x10(6)/[facility] LABORATORY Hemoglobin 17.9 (H) 11.7 - [facility] JORGE 15.5 g/dL [facility] Hematocrit 53.8 (H) 35.7 - [facility] JORGE 45.8 % [facility] MCV 88.6 82.6 - [facility] 94.4 [facility] LABORATORY MCH 29.5 27.1 - [place] JORGE 32.[address] [facility] MCHC 33.3 31.7 - [facility] 35.0 g/dL [facility] Platelets 171 145 - 357 [facility] x[facility](3[facility] LABORATORY RDWSD 50.0 (H) 37.0 - [facility]GE 46.0 [facility] LABORATORY RDWCV 15.6 (H) 11.5 - [facility] J[facility]GE 14.1 % [facility] MPV 10.5 7.6 - 12.9 [facility] LABORATORY nRBC % Auto 0.0 % [facility] nRBC Abs Auto 0.000 0.000 - [facility] incrediblue 0.[address] [facility] x10(3)/[facility] LABORATORY Specimen Anatomical Collection Method Collection Time Receive d Time (Source) Location / / Volume Laterality Blood 02/23/2022 8:38 AM 2 8:49 EDT AM EDT Resulting Agency Comment Spec In Lab Perla Hernandez MD HEMATOLOGY ORDERABLES Performing Organization Address City/State/[place] [address] (ABNORMAL) Comprehensive metabolic panel (non-fasting) (02/23/2022 8:38 AM EDT) P athologist Signature Glucose Lvl 162 65 - 199 [facility] mg/dL [facility] Comment: Diabetes: >=200 mg/dL plus symp toms BUN 12 8 - 18 mg/dL [facility] Creatinine 0.69 (L) 0.70 - 1.20 mg/dL [facility] Sodium 139 135 - 145 mmol/L [facility] Potassium 4.1 3.5 - 5.0 mmol/L [facility] Comment: Please note: ??Patients with WBC >100,00 0 may have falsely elevated Potassium levels. ??For accurate Potassium quantif ication in these patients send serum separator tube (gold top) for subsequent determinations. ??Contact the Clinical Chemistry Laboratory if there are any qu estions. Chloride 102 98 - 107 mmol/L [facility] CO2 25 22 - 31 mmol/L [facility] Anion Gap 12 5 - 15 mmol/L [facility] Calcium 9.2 8.5 - 10.5 mg/dL [facility] Total Protein 7.6 6.1 - 8.0 g/dL [facility] Albumin 4.5 3.2 - 5.2 g/dL [facility] AST 25 0 - 30 unit/L [facility] ALT 15 0 - 30 unit/L [facility] Alk Phos 119 (H) 35 - 105 unit/L [facility] Total Bilirubin 0.3 0.2 - 1.3 mg/dL [facility] Estimated GFR 98 >=60 mL/min/1.73 m?? [facility] Comment: This patient's estimated GFR [...] Hernandez MD CHEMISTRY ORDERABLES Performing Organization Address City/[facility]/[place] [address] Prothrombin Time (02/23/2022 8:38 AM EDT) athologist Signature PT 11.0 9.4 - 12.5 [facility] LABORATORY INR 1.0 [facility] Comment: An INR <2.0 indicates [...] Hernandez MD HEMATOLOGY ORDERABLES Performing Organization Address City/[facility]/[place] [address] AFP tumor marker (02/23/2022 8:38 AM EDT) P athologist Signature AFP <1.9 <=8.3 ng/mL [facility] Comment: This result was generated [...] Organization Address City/State/[place] [address] documented in this encounter Visit Diagnoses Diagnosis BUI (nonalcoholic steatohepatitis) Other chronic nonalcoholic liver disease documented in this encounter Care Teams Deep Fryer Assembler Relationship Specialty Start Date End Date Hai Lopez DO PCP - General Family Medicine 10/10/17 7[address] [facility] [place] [address] documented as of this encounter
--- OUTSIDE RECORDS SUMMARY | 2022-05-05 00:45 | XMS_ITS | Encounter Summary ---
:1960 Author Organization [facility] [place] [address] Care Team Providers Name Role Phone John Hai Nicole DO Primary Care Provider Encounter Details Date Type Department Care Team Description 04/20/2022 Ancillary Procedure Radiology Library at Elizabeth Ricks [facility] [place] [address] [address] [place] [address] (Wo rk) Social History Tobacco Use Types [...] 08/28/2022 Appointment Radiology Yuliana Hernandez MD [facility] [address] [place] [address] (Wo rk) 08/28/2022 Office Visit Gastroenterology Andrew Smith PA [facility] [address] [place] [address] (Wo rk) documented as of this encounter Procedures Procedure Name Priority Date/Time Associated Diagnosis Comme nts FILM LIBRARY Routine 04/20/2022 12:00 AM Results for this STORAGE ONLY MR EDT procedure ar e in HEAD the results section. documented in this encounter Results Film Library- Storage Only MR Head (04/20/2022 12:00 AM EDT) Specimen (Source) Anatomical Location Collection Method / Collectio n Time Received Time / Laterality Volume Narrative RAD - 05/02/2022 1:38 AM EDT This exam is auto-finalizing. It's purpo se is for storage only. Elizabeth Ricks MD Adelso FILM LIBRARY ORDERABLES Performing Organization Address City/State/ZIP Code Phon e Number RAD [place], [place] documented in this encounter Visit Diagnoses Not on filedocumented in this encounter Care Teams Power Reactor Operator Relationship Specialty Start Date End Date Hai Lopez DO PCP - General Family Medicine 10/10/17 [address] [facility] [place] [address] documented as of this encounter
--- OUTSIDE RECORDS SUMMARY | 2022-05-05 00:45 | XMS_ITS | Encounter Summary ---
:1960 Author Organization [facility] [place] [address] Care Team Providers Name Role Phone John Hai Nicole DO Primary Care Provider Encounter Details Date Type Department Care Team Description 12/19/2021 Telephone Gastroenterology at [facility] [address] Social History Tobacco Use Types Packs/Day [...] MD [facility] [address] [place] [address] (Wo rk) 08/28/2022 Office Visit Gastroenterology Andrew Smith PA [facility] [address], [place] [address] (Wo rk) documented as of this encounter Visit Diagnoses Not on filedocumented in this encounter Care Teams Plant Operator Control Room Operator Relationship Specialty Start Date End Date Hai Lopez DO PCP - General Family Medicine 10/10/17 [address] [place] [address] documented as of this encounter
--- OUTSIDE RECORDS SUMMARY | 2022-05-05 00:45 | XMS_ITS | Encounter Summary ---
:1960 Author Organization [place] [address] Care Team Providers Name Role Phone Hai Lopez DO Primary Care Provider Reason for Referral Consultation (Routine) - Authorized Specialty Diagnoses / Procedures Referred By Contact Refer red To Contact Otolaryngology Diagnoses Benign paroxysmal vertigo of right ear Dizziness and giddiness Elizabeth Ricks, [facility] Otolaryngology [address] [place] [phone] [place] [address] Referral ID Status Reason Start Date Expiration Visits Visits Date Requested Authorized [id number] Authorized Consult, 04/27/2022 04/27/2023 1 1 Test & Treat Encounter Details Date Type Department Care Team Description 04/27/2022 Transcribe Orders eDH Incoming Lynnette Ricks par oxysmal vertigo of right ear; Referrals MD Elizabeth Dizziness and giddiness [phone] [facility] [address] [place] [address] Social History Tobacco Use Types [...] MD [facility] [address] [place] [address] (Wo rk) 08/28/2022 Office Visit Gastroenterology Andrew Smith PA [facility] [address] [place] [address] (Wo rk) Scheduled Referrals Name Type Priority Associated Diagnoses Order S chedule Referral to ENT Outpatient Referral Routine Benign paroxysmal Ordered: 04/27/2022 vertigo of right ear Dizziness and giddiness documented as of this encounter Visit Diagnoses Diagnosis Benign paroxysmal vertigo of right ear Benign paroxysmal positional vertigo Dizziness and giddiness documented in this encounter Care Teams Leather Splitter Relationship Specialty Start Date End Date Hai Lopez DO PCP - General Family Medicine 10/10/17 [address] [place] [address] documented as of this encounter
--- OUTSIDE RECORDS SUMMARY | 2022-05-05 00:45 | XMS_ITS | Clinical Summary ---
:1960 Author Organization [facility] Address [address] [place] [address] Care Team Providers Name Role Phone Hai Gallegos MD Primary Care Provider Unavailable Social History Tobacco Use Types Packs/Day Years Used Date Never Assessed Sex Assigned at Date Recorded Not on file Plan of Treatment Not on file Insurance Payer Benefit Plan Subscriber ID Effective Phone Address Typ e / Group Dates MEDICAID ACO MEDICAID ACO [id number] 2020-Pres [phone] [address] Medicaid [place] [address] [facility] [id number] Care Teams Ship Laborer Relationship Specialty Start Date End Date Hai Gallegos MD PCP - General 08/12/10
--- OUTSIDE RECORDS SUMMARY | 2022-05-05 00:45 | XMS_ITS | Encounter Summary ---
:1960 Author Organization [facility] [place] [address] Care Team Providers Name Role Phone Hai Lopez DO Primary Care Provider Reason for Visit Reason Comments Visual Field Change Consultation (Urgent) - Closed Specialty Diagnoses / Procedures Referred By Contact Refer red To Contact Ophthalmology Diagnoses VF loss od x 2 weeks va 20/25 Johan Dent, OD [place], [address] [place] [address] [facility] OPHTHALMOLOGY DEPT [place], [place] [address] Phone: Fax: Referral ID Status Reason Start Date Expiration Date Visits V isits Requested Authorized [id number] Closed Consult, 07/29/2019 07/28/2020 1 1 Test & Treat Encounter Details Date Type Department Care Team Description 08/01/2019 Office Visit Ophthalmology at [facility] C Leslie, Exophoria; [facility] MD Alena Visual field defects; Drive [facility] [place] [address] CENTER [phone] OPHTHALMOLOGY DEPT [place], [place] [address] Social History Tobacco Use Types [...] Lab 08/28/2022 Appointment Radiology Perla Hernandez MD [facility] [address] [place], [place] [address] (Wo rk) 08/28/2022 Office Visit Gastroenterology Andrew Smith PA [facility] Dr [place], [place] [address] (Wo rk) documented as of [...] P athologist Signature Neutrophils % 55.7 % [facility]OR[facility] Neutr Abs (ANC) 4.57 1.70 - [facility] 6.10 [facility] x10(3)/[facility] LABORATORY Lymphocytes % 34.3 % [facility] Lymphocytes Abs 2.8 0.9 - 3.2 [facility] x10(3)/[facility] LABORATORY Monocytes % 5.9 % [facility] Monocyte Abs 0.5 0.3 - 0.9 [facility] x10(3)/[facility] LABORATORY Eosinophils % 3.0 % [facility] Eosinophils Abs 0.2 0.0 - 0.4 [facility] x10(3)/[facility] LABORATORY Basophils % 1.0 % [facility] Basophils Abs 0.1 0.0 - 0.1 [facility] x10(3)/[facility] LABORATORY Immature Gran % 0.10 % [facility] Comment: Immature granulocytes(IG's)percentage an d absolute count will include metamyelocytes, myelocytes, and promyelo cytes. Blood smears from CBCs yielding IG's will be scanned manually for concor dance. If this scan disagrees with the automated IG or if promyelocytes are not ed, a manual differential will be performed. Elaina Gran Abs 0.01 0.00 - 0.04 x10(3)/[facility] MAR Y [facility] LABORATORY Specimen Anatomical Collection Method Collection Time Receive d Time (Source) Location / / Volume Laterality Blood specimen 08/01/2019 3:29 PM 020 3:49 (specimen) EST PM EST Resulting Agency Comment Spec In Lab Alena Nelson MD HEMATOLOGY ORDERABLES Performing Organization Address City/State/[place] [address] (ABNORMAL) Hemogram (08/01/2019 3:29 PM EST) Analysis Performed At Patho logist Time Signature WBC 8.2 4.0 - 9.5 [facility] x10(3)/[facility] LABORATORY RBC 6.06 (H) 4.00 - [facility] 5.21 [facility] x10(6)/[facility] LABORATORY Hemoglobin 17.7 (H) 11.7 - [facility] 15.5 gm/dL [facility] Hematocrit 54.2 (H) 35.7 - [facility] 45.8 % [facility] LABORATORY MCV 89.4 82.6 - [facility] 94.4 fL [facility]OR[facility] MCH 29.2 27.1 - [facility] 32.0 pg [facility] MCHC 32.7 31.7 - [facility] 35.0 gm/dL [facility] LABORATORY Platelets 191 145 - 357 [facility] x10(3)/[facility] LABORATORY RDWSD 44.0 37.0 - [place] 46.0 [facility] LABORATORY RDWCV 13.4 11.5 - [facility] 14.1 % [facility] LABORATORY MPV 11.1 7.6 - 12.9 [facility] LABORATORY nRBC % Auto 0.0 % [facility] nRBC Abs Auto 0.000 0.000 - [place] 0.000 [facility] x10(3)/[facility] LABORATORY Specimen Anatomical Collection Method Collection Time Receive d Time (Source) Location / / Volume Laterality Blood specimen 08/01/2019 3:29 PM 020 3:49 (specimen) EST PM EST Resulting Agency Comment Spec In Lab Alena Nelson MD HEMATOLOGY ORDERABLES Performing Organization Address City/[facility]/[place] [address] CRP, acute inflammation (08/01/2019 3:29 PM EST) P athologist Signature CRP 3.4 <=4.9 mg/L [facility] Specimen Anatomical Collection Method Collection Time Receive d Time (Source) Location / / Volume Laterality Blood specimen 08/01/2019 3:29 PM 020 3:49 (specimen) EST PM EST Resulting Agency Comment Spec In Lab Alena Nelson MD CHEMISTRY ORDERABLES Performing Organization Address City/State/ZIP Code Phon e Number [address] (ABNORMAL) Sedimentation rate (08/01/2019 3:29 PM EST) P athologist Signature Sed Rate 33 (H) 0 - 20 [facility] mm/hr [facility] LABORATORY Specimen Anatomical Collection Method Collection Time Receive d Time (Source) Location / / Volume Laterality Blood specimen 08/01/2019 3:29 PM 020 3:49 (specimen) EST PM EST Resulting Agency Comment Spec In Lab Alena Nelson MD HEMATOLOGY ORDERABLES Performing Organization Address City/[facility]/[place] [address] Creatinine (08/01/2019 3:29 PM EST) athologist Signature Creatinine 0.79 0.70 - [place] 1.20 mg/dL [facility] LABORATORY Estimated GFR 82 >=60 [place] [place] mL/min/1.7 [facility] 3 m?? HOSPITAL LABORATORY Comment: The eGFR was calculated using the CKD-EP I equation. As with all creatinine based estimates of kidney function, eGFR values calculated with the CKD-EPI equation are not accurate in patients wi th acute kidney failure, extremes of body mass or the acutely ill. http://[employer]/Bookigeenkf eGFR 95 >=60 mL/min/1.73 m?? [facility] Comment: The eGFR was calculated using the CKD-EP I equation. As with all creatinine based estimates of kidney function, eGFR values calculated with the CKD-EPI equation are not accurate in patients wi th acute kidney failure, extremes of body mass or the acutely ill. [email or web address]://[employer]/Bookigeenkf Specimen Anatomical Collection Method Collection Time Receive d Time (Source) Location / / Volume Laterality Blood specimen 08/01/2019 3:29 PM 020 3:49 (specimen) EST PM EST Resulting Agency Comment Spec In Lab Alena Nelson MD CHEMISTRY ORDERABLES Performing Organization Address City/[facility]/[place] [address] Automated Visual Field - [...] was normal. Inferior thickness was normal. Notes [place] Spectralis OCT Implication: No thinning or swelling OU. Alena Nelson MD OPHTHALMOLOGY SERVICES ORD ERABLES documented in this encounter Visit Diagnoses Diagnosis Exophoria Visual field defects Visual field defect, unspecified Unspecified visual disturbance documented in this encounter Care Teams Six Sigma Project Manager Relationship Specialty Start Date End Date Hai Lopez DO PCP - General Family Medicine 10/10/[address] [place] [address] documented as of this encounter
--- OUTSIDE RECORDS SUMMARY | 2022-05-05 00:45 | XMS_ITS | Encounter Summary ---
:1960 Author Organization [facility] Address [address] [place] [address] Care Team Providers Name Role Phone Hai Gallegos MD Primary Care Provider Unavailable Encounter Details Date Type Department Care Team Description 03/15/2012 Results Only [facility] Juve Dawkins MD Laboratory Services - [address] [place] [address] [place] [address] [phone] Social History Tobacco Use Types Packs/Day Years [...] MARY BETH ANTUNEZ ? Accession #: ? [id number] : ? 1960 (Age: 51) ??F ?Collect [...] Organization Address City/State/ZIP Code Phon e Number [facility] LABORATORY [address] [place] [address] SERVICES ED [facility] [address] [place] [address] documented in this encounter Visit Diagnoses Not on filedocumented in this encounter Care Teams Voltage Inspector Relationship Specialty Start Date End Date Hai Gallegos MD PCP - General 08/12/10 documented as of this encounter
--- OUTSIDE RECORDS SUMMARY | 2022-05-05 00:45 | XMS_ITS | Encounter Summary ---
:1960 Author Organization [facility] Address [address] [place] [address] Care Team Providers Name Role Phone Unavailable Primary Care Provider Unavailable Encounter Details Date Type Department Care Team Description 04/04/2000 Results Only [facility] - Doreen George son, Glenny L, LABEL PINKER conversion [address] [place] [phone] (Wo rk) Social History Tobacco Use Types [...] BETH HICKEY ? Accession #: ? [id number] : ? 1960 (Age: 39) ??F ?Collect Date: ? 03/10 Location: ? [facility] ? Receive Date : ? 04/06/2000 Provider: ?GLENNY FELICIANO LABEL PINKER Copy to: ? Specimen/Source: ?ThinPrep Pap Test, [...] City/State/ZIP Code Phon e Number [facility] LABORATORY [address] [place] [address] SERVICES ED [facility] [address] [place] [address] documented in this encounter Visit Diagnoses Not on filedocumented in this encounter
--- OUTSIDE RECORDS SUMMARY | 2022-05-05 00:45 | XMS_ITS | Encounter Summary ---
:1960 Author Organization [facility] Address [address] [place] [address] Care Team Providers Name Role Phone Unavailable Primary Care Provider Unavailable Encounter Details Date Type Department Care Team Description 01/22/2008 Before [facility] - Bernardo Price MD Converted Visit Maple conversion [address] (Maple) [address] [place] [address] [place], [place] [address] [phone] Social History Tobacco Use Types Packs/Day Years [...] MARY BETH L ? Accession #: ? [id number] ? : ? 1960 (Age: 47) ??F [...] was ?? collected during the first h skilled nursing of the menstrual cycle. ? There is [...] Organization Address City/State/ZIP Code Phon e Number [facility] LABORATORY [address] [place] [address] SERVICES ED [facility] [address] [place] [address] documented in this encounter Visit Diagnoses Not on filedocumented in this encounter
--- OUTSIDE RECORDS SUMMARY | 2022-05-05 00:45 | XMS_ITS | Encounter Summary ---
:1960 Author Organization [facility] Address [address] [place] [address] Care Team Providers Name Role Phone Unavailable Primary Care Provider Unavailable Encounter Details Date Type Department Care Team Description 03/09/2005 Results Only [facility] - Lottie Perez MD Maple conversion [address] [place] [address] [place] [address] Social History Tobacco Use Types Packs/Day Years Used Date Never Assessed Sex Assigned at Date Recorded Not on file documented as of this encounter Plan of Treatment Not on filedocumented as of this encounter Procedures Procedure Name Priority Date/Time Associated Diagnosis Comme [facility] SURGICAL PATHOLOGY Routine 03/09/2005 0:00 EDT Re sults for this procedure are i n the results section. documented in this encounter Results SURGICAL PATHOLOGY (03/09/2005 0:00 EDT) Pathology Report: SURGICAL PATHOLOGY REPORT ED [facility] Reports generated via electronic interface contain santiago ginal data; LAB however they are lacking the format of the original re port. Caution should be taken when reading/interpreting unfo rmatted reports. Name: ? MARY BETH HICKEY ? Accession #: ? [id number] ? : ? 1960 (Age: 44) ??F ? Collect Date: ? 03/09/2005 ? Location: ? [facility] ? Receive Date: ? 005 ? Provider: CAMACHO PEREZ MD Copy to: TERESITA HALL MD ? Final Pathologic Diagnosis: ? Endometrium, biopsy: 1. ?Disordered proliferative endometrium with tubal metaplasia. 2. ?No cytologic atypia. Document reviewed and electronically signed by: Michael Calloway MD Report ??Date: 03/14/2005 17:07 By the signature above, the attending physician certif ies that he/she has personally conducted a gross and/or microscopic examin ation of the described specimens and rendered or confirmed the above diagnosi s. Specimen(s) Received: ? Endometrial bx Clinical History: ? Menorrhagia Gross Description: ? Received in formalin labelled Favreau and bx endometrial are multiple leonardo to leonardo-red focally hemor rhagic soft fragments of tissue admixed with a small amount of clear mucinous material. ??The specimen swetha ures roughly 1.5 cc in total volume and is submitted entirely in one cassette . ??(Yuriy Eugene/lexy End of Report Specimen Performing Organization Address City/State/ZIP Code Phon e Number [facility] LABORATORY [address] [place] [address] SERVICES ED [facility] [address] [place] [address] documented in this encounter Visit Diagnoses Not on filedocumented in this encounter
--- OUTSIDE RECORDS SUMMARY | 2022-05-05 00:45 | XMS_ITS | Encounter Summary ---
:1960 Author Organization [facility] Address [address] [place] [address] Care Team Providers Name Role Phone Hai Gallegos MD Primary Care Provider Unavailable Encounter Details Date Type Department Care Team Description 08/05/2020 Lab Requisition [facility] Outr Resulting Lab, Pathology & Laboratory Provider [facility] [address] [place], [place] [id number] Social History Tobacco Use Types Packs/Day Years Used Date Never Assessed Sex Assigned at Date Recorded Not on file documented as of this encounter Plan of Treatment Not on filedocumented as of this encounter Procedures Procedure Name Priority Date/Time Associated Diagnosis Comme nts COVID-19 TEST [facility] Today 08/05/2020 16:25 LAB PCR EST COVID-19 TESTING Routine 08/05/2020 16:25 Results for this EST procedure are i n the results section. documented in this encounter Results COVID-19 TEST [facility] LAB PCR (08/05/2020 16:25 EST) Specimen Swab - Entire nasopharynx (body structur e) Performing Organization Address City/State/ZIP Code Phon e Number [facility]OR[facility]ORY [address] [place] [address] SERVICES COVID-19 TESTING (08/05/2020 16:25 EST) COVID-19 rt-PCR Negative Negative [facility] Result Comment: [facility] LABORATORY This test has not been FDA c leared or approved. This test has been authorized by FDA under an EUA for use by authorized laboratories. This test has been authorized only for detection of nucleic acid fro SERVICES m 2018-nCo, not for any oth er viruses or [...] developed and its performance characteristics determined by [facility]. It has not been cleared or approved [...] defined by the FDA Performed on the Inkling 7 Flex RT-PCR System. Performing Lab [facility] Lab [facility] LABORATORY SERVICES Specimen Swab Performing Organization Address City/State/ZIP Code Phon e Number [facility] LABOR[facility]ORY [address] [place] [address] SERVICES documented in this encounter Visit Diagnoses Not on filedocumented in this encounter Care Teams Occupational Therapy Department Chair Relationship Specialty Start Date End Date Hai Gallegos MD PCP - General 08/12/10 documented as of this encounter
--- OUTSIDE RECORDS SUMMARY | 2022-05-05 00:45 | XMS_ITS | Encounter Summary ---
:1960 Author Organization [facility] [place] [address] Care Team Providers Name Role Phone John Hai Nicole DO Primary Care Provider Reason for Visit Reason Comments Visual Field Change Encounter Details Date Type Department Care Team Description 08/08/2019 Office Visit Ophthalmology at [facility] Duong Nelson, Visual field defects; [facility] MD Alena [place]specified [place] [address] CENTER [phone] OPHTHALMOLOGY [place], [place] [address] Social History Tobacco Use Types [...] Lab 08/28/2022 Appointment Radiology Yuliana Hernandez MD [facility] [address] [place] [place] [address] (Wo rk) 08/28/2022 Office Visit Gastroenterology Adnrew Smith PA [facility] [address] [place] [address] (Wo rk) documented as of [...] was normal. Inferior thickness was normal. Notes [facility] Spectralis OCT Implication: No thinning or swelling OU. Alena Nelson MD OPHTHALMOLOGY SERVICES ORD ERAIRA documented in this encounter Visit Diagnoses Diagnosis Visual field defects Visual field defect, unspecified Unspecified visual disturbance documented in this encounter Care Teams Portrait Photographer Relationship Specialty Start Date End Date Hai Lopez DO PCP - General Family Medicine 10/10/[address] [place] [address] documented as of this encounter
--- OUTSIDE RECORDS SUMMARY | 2022-05-05 00:45 | XMS_ITS | Encounter Summary ---
:1960 Author Organization [facility] [place] [address] Care Team Providers Name Role Phone Hai Lopez Corey MOORE Primary Care Provider Encounter Details Date Type Department Care Team Description 02/23/2022 Office Visit [place] [facility] Yuliana Hernandez, BUI (nonalcoholic steatohep atitis); [facility] Lisa soto MD [place] of [place] [address] [facility] [phone] [place] [address] Social History Tobacco Use Types Packs/Day Years [...] so she went to the ED at [facility]. She was worked up, had a CT [...] Vitals: 02/23/22 1021 BP: 122/75 BP Location ([facility]): Left arm Patient Position: Sitting [...] Hernandez MD Section of Gastroenterology & Hepatology [address] [place] [address] Time spent reviewing records prior to [...] so she went to the ED at [facility]. She was worked up, had a CT [...] had an US during her workup at [facility], but we will review the results of her US from today for any evidence of GB or CBD dilation and will also request access to Mary Beth's records from her hospitalization at [facility] for further review. Her ALT, AST, and [...] improve her hepatic function. Salty Zamora, MS3 [facility] documented in this encounter Plan of Treatment Upcoming Encounters Date Type Specialty Care Team Description 08/28/2022 Laboratory Appointment Lab 08/28/2022 Appointment Radiology Yuliana Hernandez MD [facility] [address] [place] [address] (Wo roz) 08/28/2022 Office Visit Gastroenterology Andrew Smith PA [facility] Dr [place] [address] (Wo roz) Scheduled Orders Name Type [...] disease documented in this encounter Care Teams Granite Polisher Relationship Specialty Start Date End Date Hai Lopez DO PCP - General Family Medicine 10/10/[address] [place] [address] documented as of this encounter
--- OUTSIDE RECORDS SUMMARY | 2022-05-05 00:45 | XMS_ITS | Encounter Summary ---
:1960 Author Organization [facility] Address [address] [place] [address] Care Team Providers Name Role Phone Unavailable Primary Care Provider Unavailable Encounter Details Date Type Department Care Team Description 01/28/2008 Before [facility] - Bernardo Price MD Converted Visit Maple conversion [address] (Maple) [address] [place] [address] [place], [place] [address] [phone] Social History Tobacco Use Types Packs/Day Years Used Date Never Assessed Sex Assigned at Date Recorded Not on file documented as of this encounter Plan of Treatment Not on filedocumented as of this encounter Procedures Procedure Name Priority Date/Time Associated Diagnosis Comme [facility] SURGICAL PATHOLOGY Routine 01/28/2008 0:00 EDT Re sults for this procedure are i n the results section. documented in this encounter Results SURGICAL PATHOLOGY (01/28/2008 0:00 EDT) Pathology Report: SURGICAL PATHOLOGY REPORT ? ED [facility] Reports generated via [employer] interface contain original data; ? LAB however they are lacking the format of the original report. ? Caution should be taken when reading/interpreting unformatted reports. ? Name: ? RUPERTO, MARY BETH L ? Accession #: ? [id number] ? : ? 1960 (Age: 47) ??F [...] Address City/State/ZIP Code Phon e Number [facility]ORY [address] [place] [address] SERVICES ED [facility] [address] [place] [address] documented in this encounter Visit Diagnoses Not on filedocumented in this encounter
--- OUTSIDE RECORDS SUMMARY | 2022-05-05 00:45 | XMS_ITS | Encounter Summary ---
:1960 Author Organization [place] [address] Care Team Providers Name Role Phone Hai Lopez DO Primary Care Provider Reason for Referral Consultation (Urgent) - Authorized Specialty Diagnoses / Procedures Referred By Contact Refer red To Contact Neurosurgery Diagnoses Cerebral aneurysm, nonruptured Elizabeth Ricks [facility] [facility] [place] [address] [address] [place], [place] [address] Referral ID Status Reason Start Expiration Visits Visits Date Date Requested Authorized [id number] Authorized Consult, 05/01/2023 6 6 Test & Treat 2 PCP Updated and/or Approved Encounter Details Date Type Department Care Team Description 05/01/2022 Transcribe Orders eDH Incoming Darline Ricks a neurysm, Referrals MD Elizabeth nonruptured [phone] [facility] [address] [place] [address] Social History Tobacco Use Types [...] Lab 08/28/2022 Appointment Radiology Yuliana Hernandez MD [facility] Medical [facility] er [address] [place] [address] (Wo rk) 08/28/2022 Office Visit Gastroenterology Andrew Smith PA [facility] [place] [address] (Wo rk) Scheduled Referrals Name Type Priority Associated Diagnoses Order S chedule Referral to Outpatient Referral Urgent Cerebral aneurysm, Or dered: Neurosurgery nonruptured 05/01/2022 documented as of this encounter Visit Diagnoses Diagnosis Cerebral aneurysm, nonruptured documented in this encounter Care Teams Barber Or Beauty Shop Manager Relationship Specialty Start Date End Date Hai Lopez DO PCP - General Family Medicine 10/10/[address] [place], [place] [address] [address] documented as of this encounter
--- OUTSIDE RECORDS SUMMARY | 2022-05-05 00:45 | XMS_ITS | Encounter Summary ---
:1960 Author Organization [facility] Address [address] [place] [address] Care Team Providers Name Role Phone Unavailable Primary Care Provider Unavailable Encounter Details Date Type Department Care Team Description 07/15/2009 Orders Only [facility] Lisa Frank, MAG Laboratory Services - [address] [place], [place] [address] [place] [id number] [place] [address] [phone] Social History Tobacco Use Types Packs/Day Years [...] Organization Address City/State/ZIP Code Phon e Number [facility] [address] [place] [address] SERVICES [facility] [address] [place] [address] CYTOPATHOLOGY (07/15/2009 0:00 EST) Pathology Report: CYTOPATHOLOGY REPORT ? ED [facility] ? LAB Reports generated via electr DeYapa interface contain original data; ? however they are lacking the format of the original report. ? Caution should be taken when reading/interpreting unformatted reports. ? Name: ? MARY BETH HICKEY L ? Accession #: ? [id number] ? : ? 1960 (Age: 48) ??F ?Collect Date: ? 07/15/2009 ? Location: ? [facility] ? Receive Date: ? 07/19/2009 ? Provider: ?CAMACHO L R OBINSON FERTILIZER PROCESSING SUPERVISOR ? Copy to: ? Specimen/Source: ? Pap [...] Organization Address City/State/ZIP Code Phon e Number [facility] [address] [place] [id number] SERVICES [facility] [address] [place] [address] documented in this encounter Visit Diagnoses Not on filedocumented in this encounter
--- OUTSIDE RECORDS SUMMARY | 2022-05-05 00:45 | XMS_ITS | Encounter Summary ---
:1960 Author Organization [facility] Address [facility] [place] [address] Care Team Providers Name Role Phone JohnHai DO Primary Care Provider Encounter Details Date Type Department Care Team Description 08/21/2019 Office Visit [place]astro[place]ology [place] [facility] Yuliana Hernandez, RUQ pain; [facility] Lisa soto MD BUI (nonalcoholic steatohepatitis) [place] [address] [facility] [phone] [place] [address] Social History Tobacco Use Types Packs/Day Years [...] Vitals: 08/21/19 1141 BP: 124/70 BP Location ([facility]): Right arm Patient Position: Sitting BP Cuff [...] MD Section of Gastroenterology & Hepatology [address] [place] [address] 16 minutes of this 17 minute visit was spent in discussion and coordination of care Cc: Hai Lopez DO documented in this encounter Plan of Treatment Upcoming Encounters Date Type Specialty Care Team Description 08/28/2022 Laboratory Appointment Lab 08/28/2022 Appointment Radiology Yuliana Hernandez MD [facility] [place] [address] [place] [address] (Wo roz) 08/28/2022 Office Visit Gastroenterology Andrew Smith PA [facility] [place] [address] [place] [address] (Wo roz) documented as of this encounter Visit Diagnoses Diagnosis RUQ pain Abdominal pain, right upper quadrant BUI (nonalcoholic steatohepatitis) Other chronic nonalcoholic liver disease documented in this encounter Care Teams Inclined Railway Operator Relationship Specialty Start Date End Date Hai Lopez DO PCP - General Family Medicine 10/10/[address] [place] [address] documented as of this encounter
--- OUTSIDE RECORDS SUMMARY | 2022-05-05 00:45 | XMS_ITS | Encounter Summary ---
:1960 Author Organization [facility] [place] [address] Care Team Providers Name Role Phone John Hai Nicole DO Primary Care Provider Encounter Details Date Type Department Care Team Description 04/28/2022 Ancillary Procedure Radiology Library at Elizabeth Ricks [facility] [place] [place] [address] [address] [place], [place] [address] (Wo rk) Social History Tobacco Use Types [...] Lab 08/28/2022 Appointment Radiology Yuliana Hernandez MD [facility] [address] [place] [address] (Wo rk) 08/28/2022 Office Visit Gastroenterology Andrew Smith PA [facility] [address] [place] [address] (Wo rk) documented as of this encounter Procedures Procedure Name Priority Date/Time Associated Diagnosis Comme nts FILM LIBRARY Routine 04/28/2022 12:00 AM Results for this STORAGE ONLY CT EDT procedure ar e in HEAD AND SPINE the results section. documented in this encounter Results Film Library- Storage Only CT Head [facility] Sp[facility] (04/28/2022 12:00 AM EDT) Specimen (Source) Anatomical Location Collection Method / Collectio n Time Received Time / Laterality Volume Narrative RAD - 05/02/2022 1:40 AM EDT This exam is auto-finalizing. It's purpo se is for storage only. Elizabeth Ricks MD IMAdelso FILM LIBRARY ORDERABLES Performing Organization Address City/State/ZIP Code Phon e Number [place], [place] documented in this encounter Visit Diagnoses Not on filedocumented in this encounter Care Teams Apple Turner Relationship Specialty Start Date End Date Hai Lopez DO PCP - General Family Medicine 10/10/17 [address] [place] [address] documented as of this encounter
--- OUTSIDE RECORDS SUMMARY | 2022-05-05 00:45 | XMS_ITS | Encounter Summary ---
:1960 Author Organization [facility] [place] [address] Care Team Providers Name Role Phone JohnHai DO Primary Care Provider Encounter Details Date Type Department Care Team Description 02/23/2022 Hospital Encounter Ultrasound at [facility] Perla Hernandez, BUI (nonalcoholic steatohep atitis); [facility] History of hepatitis C [facility] [address] [place], [place] [phone] [facility] Social History Tobacco Use Types Packs/Day Years [...] Appointment Radiology Perla Hernandez MD [facility] [address] [place] [address] (Wo rk) 08/28/2022 Office Visit Gastroenterology Andrew Smith PA [facility] [address] [place] [address] (Wo rk) documented [...] Electronically signed by: Bernardo guillaume MD, Radiology [place] ([phone]), at 12:19 PM Thank you for letting us participate in the care of this patient. If you are a [facility] er and have any questions regarding this report, please contact the number above. For patients who have ques tions, please contact the [facility] that requested your imaging first. ?Bernardo Silva, Staff Physician Electronically Signed Final Report ?? 03:03 pm Narrative 02/23/2022 3:03 PM EDT Abdominal ? (Signed Final 02/23/2022 03:03 pm) PATIENT INFO: ID #: ? [id number] ?: ??[birth year] (61 yrs)(F) Name: ? MARY BETH ANTUNEZ ?Visit Date: 02/23/2022 09:49 am PERFORMED BY: Performed By: ? Sagrario Munoz RDMS Attending: ?Ruth Silva MD Referred By: ?PERLA HERNANDEZ Location: ? [place] SERVICE(S) [facility]: [facility] - Hepatology Protocol - Filipe bellamy ?[id number] Limited Survey Single Organ or Quadrant - [id number] INDICATIONS: Hep C, F3, HCC screening COMPARISON: [...] 03:0 3 pm) PATIENT INFO: ID #: [id number] : 58 (61 y rs)(F) Name: MARY BETH Quigley TULIO Visit Date: 02/23 09:49 am PERFORMED BY: Performed By: Sagrario Munoz RDMS Attending: Bernardo Silva MD Referred By: PERLA HERNANDEZ Location: [place] SERVICE(S) [facility]: [facility] - Hepatology Protocol - Fliipe bellamy [id number] Limited Survey Single Organ or Quadrant - [id number] INDICATIONS: Hep C, F3, HCC screening COMPARISON: [...] Electronically signed by: Bernardo guillaume MD, Radiology [place] ([phone]), at 12:19 PM Thank you for letting us participate in the care of this patient. If you are a [facility] er and have any questions regarding this report, please contact the number above. For patients who have ques tions, please contact the [facility] professio nal that requested your imaging first. Bernardo Silva, Staff Physician Electronically Signed Final Report 02/23 03:03 pm Perla Hernandez MD IMG US GEN ORDERABLES documented in this encounter Visit Diagnoses Diagnosis BUI (nonalcoholic steatohepatitis) Other chronic nonalcoholic liver disease History of hepatitis C Personal history of other infectious and parasitic disease documented in this encounter Care Teams Ironing Pleater Relationship Specialty Start Date End Date Hai Lopez DO PCP - General Family Medicine 10/10/[address] [place] [address] documented as of this encounter
--- OUTSIDE RECORDS SUMMARY | 2022-05-05 00:45 | XMS_ITS | Encounter Summary ---
:[address] [facility] Address [address] [place] [address] Care Team Providers Name Role Phone Hai Gallegos MD Primary Care Provider Unavailable Encounter Details Date Type Department Care Team Description 07/27/2021 Lab Requisition [facility] Outr Resulting Lab, Pathology & Laboratory Provider [facility] [address] [place], [place] [address] Social History Tobacco Use Types Packs/Day Years Used Date Never Assessed Sex Assigned at Date Recorded Not on file documented as of this encounter Plan of Treatment Not on filedocumented as of this encounter Procedures Procedure Name Priority Date/Time Associated Diagnosis Comme nts COVID-19 TEST [facility] Today 07/27/2021 13:00 LAB PCR EST COVID-19 TESTING Routine 07/27/2021 13:00 Results for this EST procedure are i n the results section. documented in this encounter Results COVID-19 TEST [facility] LAB PCR (07/27/2021 13:00 EST) Specimen Swab Performing Organization Address City/State/ZIP Code Phon e Number [facility] [address] [place] [address] SERVICES COVID-19 TESTING (07/27/2021 13:00 EST) COVID-19 rt-PCR Negative Negative [facility] Result Comment: CENTER LABORATORY This [...] performed using the minh SARS-CoV-2 assay ([employer] on the Minh 6800 System Performing Lab Minh 6800 [facility] Lab [facility] SERVICES Specimen Swab Performing Organization Address City/State/ZIP Code Phon e Number [facility] [address] [place] [address] SERVICES documented in this encounter Visit Diagnoses Not on filedocumented in this encounter Care Teams Biomedical Manager Relationship Specialty Start Date End Date Hai Gallegos MD PCP - General 08/12/10 documented as of this encounter
--- OUTSIDE RECORDS SUMMARY | 2022-05-05 00:45 | XMS_ITS | Encounter Summary ---
:1960 Author Organization [facility] [place] [address] Care Team Providers Name Role Phone Hai Lopez Corey MOORE Primary Care Provider Encounter Details Date Type Department Care Team Description 02/20/2019 Office Visit Gastroenterology at [facility] Perla Hernnadez, BUI (nonalcoholic steatohep atitis); [facility] Lisa soto MD Hepatitis C virus infection without hepa tic coma, [place] [address] [facility] [phone] [place] [address] Social History Tobacco Use Types Packs/Day Years [...] Hernandez MD Section of Gastroenterology & Hepatology [address] [place] [address] 20 minutes of this 20 minute visit was spent in discussion. Cc: Hai Lopez DO documented in this encounter Plan of Treatment Upcoming Encounters Date Type Specialty Care Team Description 08/28/2022 Laboratory Appointment Lab 08/28/2022 Appointment Radiology Perla Hernandez MD [facility] [place] [address] (Wo rk) 08/28/2022 Office Visit Gastroenterology Andrew Smith PA [facility] [address] [place] [address] (Wo rk) documented as of this encounter Results AFP tumor marker (08/21/2019 9:23 AM EST) athologist Signature AFP 1.9 <=8.3 ng/mL [facility] Specimen Anatomical Collection Method Collection Time Receive d Time (Source) Location / / Volume Laterality Blood specimen 08/21/2019 9:23 AM 020 9:35 (specimen) EST AM EST Resulting Agency Comment Spec In Lab Perla Hernandez MD CHEMISTRY ORDERABLES Performing Organization Address City/State/ZIP Code Phon e Number [address] Prothrombin Time (08/21/2019 9:23 AM EST) athologist Signature PT 11.4 9.4 - 12.5 [facility] LABORATORY INR 1.0 [facility] Comment: An INR <2.0 indicates [...] Organization Address City/State/ZIP Code Phon e Number [place] [id number] (ABNORMAL) Comprehensive metabolic panel (non-fasting) (08/21/2019 9:23 AM EST) P athologist Signature Glucose Lvl 212 (H) 65 - 199 [facility] mg/dL [facility] Comment: Diabetes: >=200 mg/dL plus symp toms BUN 13 8 - 18 mg/dL [facility] Creatinine 0.75 0.70 - 1.20 mg/dL [facility] Sodium 139 135 - 145 mmol/L [facility] Potassium 4.2 3.5 - 5.0 mmol/L [facility] Comment: Please note: ??Patients with WBC >100,00 0 may have falsely elevated Potassium levels. ??For accurate Potassium quantif ication in these patients send serum separator tube (gold top) for subsequent determinations. ??Contact the Clinical Chemistry Laboratory if there are any qu estions. Chloride 101 98 - 107 mmol/L [facility] CO2 27 22 - 31 mmol/L [facility] Anion Gap 11 5 - 15 mmol/L [facility] Calcium 9.5 8.5 - 10.5 mg/dL [facility] Total Protein 7.4 6.1 - 8.0 gm/dL [facility] Albumin 4.5 3.2 - 5.2 gm/dL [facility] AST 17 0 - 30 unit/L [facility] ALT 19 0 - 30 unit/L [facility] Alk Phos 116 (H) 35 - 105 unit/L [facility] Total Bilirubin 0.5 0.2 - 1.3 mg/dL [facility] Estimated GFR 87 >=60 mL/min/1.73 m?? [facility] Comment: The eGFR was calculated using the CKD-EP I equation. As with all creatinine based estimates of kidney function, eGFR values calculated with the CKD-EPI equation are not accurate in patients wi th acute kidney failure, extremes of body mass or the acutely ill. http://[employer]/[facility] eGFR 101 >=60 mL/min/1.73 m?? [facility] Comment: The eGFR was calculated using the CKD-EP I equation. As with all creatinine based estimates of kidney function, eGFR values calculated with the CKD-EPI equation are not accurate in patients wi th acute kidney failure, extremes of body mass or the acutely ill. http://[employer]/[facility] Specimen Anatomical Collection Method Collection Time Receive d Time (Source) Location / / Volume Laterality Blood specimen 08/21/2019 9:23 AM 020 9:40 (specimen) EST AM EST Resulting Agency Comment Spec In Lab Perla Hernandez MD CHEMISTRY ORDERABLES Performing Organization Address City/State/[place] [address] US Abdomen Limited Hepatology [...] number below. Electronically signed by: Babar munguia [facility] ([phone]), at 9:03 AM ? Babar Higuera, Staff Physician Electronically Signed Final Report ?? 09:11 am Narrative 08/21/2019 9:12 AM EST Abdominal ? (Signed Final 08/21/2019 09:11 am) PATIENT INFO: ID #: ? [id number] ?: [birth year] (58 yrs) Name: ? MARY BETH HOLMAN ?Visit Date: 08/21/2019 08:38 am PERFORMED BY: Performed By: ? More Mccullough RDMS Attending: ?Kalen REBOLLAR, Eleno Queen. Referred By: ?PERLA HERNANDEZ Location: ? [place] SERVICE(S) PROVIDED: ??[facility] - Hepatology Protocol - Abdom inal ? [id number] ??Limited Survey Single Organ or Quadra nt - ??[id number] INDICATIONS: ??s/p Hep C treatment, high grade [...] 09:1 1 am) PATIENT INFO: ID #: [id number] : [birth year] (58 y rs) Name: MARY BETH HOLMAN Visit Date: 08/21 08:38 am PERFORMED BY: Performed By: More Mccullough RDMS Attending: Babar Higuera MD Referred By: PERLA HERNANDEZ Location: [place] SERVICE(S) PROVIDED: [facility] - Hepatology Protocol - [place] [id number] Limited Survey Single Organ or Quadrant - [id number] INDICATIONS: s/p Hep C treatment, high grade [...] below. Electronically signed by: Babar munguia, Radiology [place] ([phone]), at 9:03 AM Babar Higuera, Staff Physician [...] chronicity documented in this encounter Care Teams Architectural Design Professor Relationship Specialty Start Date End Date Hai Lopez DO PCP - General Family Medicine 10/10/[address] [place] [address] documented as of this encounter
--- OUTSIDE RECORDS SUMMARY | 2022-05-05 00:46 | XMS_ITS | Encounter Summary ---
:1960 Author Organization [facility] [place] [address] Care Team Providers Name Role Phone ChengHai riley DO Primary Care Provider Encounter Details Date Type Department Care Team Description 08/22/2018 Laboratory Appointment Lab 3L Yuliana Gordon Hepatic cirrhosis, unspecified hepatic cirrhosis type, unspecified whether ascites present; [facility] BUI (nonalcoholic steatohep atitis) [place] [id number] Social History Tobacco Use Types Packs/Day Years [...] Hernandez MD [facility] [address] [place] [address] (Wo rk) 08/28/2022 Office Visit Gastroenterology Andrew Smith PA [facility] [address] [place] [address] (Wo rk) documented [...] P athologist Signature Neutrophils % 54.2 % [facility] Neutr Abs (ANC) 4.85 1.70 - [facility] 6.10 [facility] x10(3)/[facility] LABORATORY Lymphocytes % 34.1 % [facility] Lymphocytes Abs 3.0 0.9 - 3.2 [facility] x10(3)/[facility] LABORATORY Monocytes % 6.4 % [facility] Monocyte Abs 0.6 0.3 - 0.9 [facility] x10(3)/[facility] LABORATORY Eosinophils % 4.0 % [facility] Eosinophils Abs 0.4 0.0 - 0.4 [facility] x10(3)/[facility] LABORATORY Basophils % 0.9 % [facility] Basophils Abs 0.1 0.0 - 0.1 [facility] x10(3)/[facility] LABORATORY Immature Gran % 0.40 % [facility] Comment: Immature granulocytes(IG's)percentage an d absolute count will include metamyelocytes, myelocytes, and promyelo cytes. Blood smears from CBCs yielding IG's will be scanned manually for concor danjada. If this scan disagrees with the automated IG or if promyelocytes are not ed, a manual differential will be performed. Elaina Gran Abs 0.04 0.00 - 0.04 x10(3)/[facility] Specimen Anatomical Collection Method Collection Time Receive d Time (Source) Location / / Volume Laterality Blood specimen 08/22/2018 8:23 AM 019 8:29 (specimen) EST AM EST Resulting Agency Comment Spec In Lab Yuliana Hernandez MD HEMATOLOGY ORDERABLES Performing Organization Address City/State/[place] [address] (ABNORMAL) Hemogram (08/22/2018 8:23 AM EST) Analysis Performed At Patho logist Time Signature WBC 9.0 4.0 - 9.5 [facility] x10(3)/[facility] LABORATORY RBC 5.24 (H) 4.00 - [facility] x10(6[facility] LABORATORY Hemoglobin 15.6 (H) 11.7 - [facility] 15.[facility] gm/dL [facility] Hematocrit 47.8 (H) 35.7 - [facility] 45.8 % [facility] MCV 91.2 82.6 - [facility] 94.4 [facility] LABORATORY MCH 29.8 27.1 - [facility] 32.0 pg [facility] MCHC 32.6 31.7 - [facility] 35.0 gm/dL [facility] Platelets 167 145 - 357 [facility] x10(3)/[facility] LABORATORY RDWSD 45.7 37.0 - [facility] 46.0 [facility] LABORATORY RDWCV 13.5 11.5 - [facility] 14.1 % [facility] MPV 10.5 7.6 - 12.9 [facility] LABORATORY nRBC % Auto 0.0 % [facility] nRBC Abs Auto 0.000 0.000 - [facility] 0.000 [facility] x10(3)/[facility] LABORATORY Specimen Anatomical Collection Method Collection Time Receive d Time (Source) Location / / Volume Laterality Blood specimen 08/22/2018 8:23 AM 019 8:29 (specimen) EST AM EST Resulting Agency Comment Spec In Lab Yuliana Hernandez MD HEMATOLOGY ORDERABLES Performing Organization Address City/State/[place] [address] (ABNORMAL) Comprehensive metabolic panel (non-fasting) (08/22/2018 8:23 AM EST) athologist Signature Glucose Lvl 166 65 - 199 [facility] mg/dL [facility] Comment: Diabetes: >=200 mg/dL plus symp toms BUN 19 (H) 8 - 18 mg/dL [facility] Creatinine 0.74 0.70 - 1.20 mg/dL [facility] Sodium 140 135 - 145 mmol/L [facility] Potassium 4.8 3.5 - 5.0 mmol/L [facility] Comment: Please note: ??Patients with WBC >100,00 0 may have falsely elevated Potassium levels. ??For accurate Potassium quantif ication in these patients send serum separator tube (gold top) for subsequent determinations. ??Contact the Clinical Chemistry Laboratory if there are any qu estions. Chloride 100 98 - 107 mmol/L [facility] CO2 25 22 - 31 mmol/L [facility] Anion Gap 15 5 - 15 mmol/L [facility] Calcium 9.9 8.5 - 10.5 mg/dL [facility] Total Protein 7.5 6.1 - 8.0 gm/dL [facility] Albumin 4.6 3.2 - 5.2 gm/dL [facility] AST 28 0 - 30 unit/L [facility] ALT 35 (H) 0 - 30 unit/L [facility] Alk Phos 91 40 - 104 unit/L [facility] Total Bilirubin 0.4 0.2 - 1.3 mg/dL [facility] Estimated GFR 89 >=60 mL/min/1.73 m?? [facility] Comment: The eGFR was calculated using the CKD-EP I equation. As with all creatinine based estimates of kidney function, eGFR values calculated with the CKD-EPI equation are not accurate in patients wi th acute kidney failure, extremes of body mass or the acutely ill. http://[employer]/[facility] eGFR 104 >=60 mL/min/1.73 m?? [facility] Comment: The eGFR was calculated using the CKD-EP I equation. As with all creatinine based estimates of kidney function, eGFR values calculated with the CKD-EPI equation are not accurate in patients wi th acute kidney failure, extremes of body mass or the acutely ill. http://[employer]/[facility] Specimen Anatomical Collection Method Collection Time Receive d Time (Source) Location / / Volume Laterality Blood specimen 08/22/2018 8:23 AM 019 8:29 (specimen) EST AM EST Resulting Agency Comment Spec In Lab Yuliana Hernandez MD CHEMISTRY ORDERABLES Performing Organization Address City/State/[place] [address] Prothrombin Time (08/22/2018 8:23 AM EST) P athologist Signature PT 11.2 9.4 - 12.5 [facility] LABORATORY INR 1.0 [facility] Comment: An INR <2.0 indicates [...] Organization Address City/State/[place] [address] AFP tumor marker (08/22/2018 8:23 AM EST) P athologist Signature AFP 2.4 <=8.3 ng/mL [facility] Specimen Anatomical Collection Method Collection Time Receive d Time (Source) Location / / Volume Laterality Blood specimen 08/22/2018 8:23 AM 019 8:29 (specimen) EST AM EST Resulting Agency Comment Spec In Lab Yuliana Hernandez MD CHEMISTRY ORDERABLES Performing Organization Address City/State/ZIP Code Phon e Number [place] [id number] documented in this encounter Visit Diagnoses Diagnosis Hepatic cirrhosis, unspecified hepatic c irrhosis type, unspecified whether ascites present BUI (nonalcoholic steatohepatitis) Other chronic nonalcoholic liver disease documented in this encounter Care Teams Podiatry Doctor Relationship Specialty Start Date End Date Hai Lopez DO PCP - General Family Medicine 10/10/[address] [place], [place] [address] [address] documented as of this encounter
--- OUTSIDE RECORDS SUMMARY | 2022-05-05 00:46 | XMS_ITS | Encounter Summary ---
:1960 Author Organization [facility] [place] [address] Care Team Providers Name Role Phone Hai Lopez DO Primary Care Provider Reason for Visit Diagnostic Test (Routine) - Closed Specialty Diagnoses / Procedures Referred By Contact Refer red To Contact Radiology Diagnoses Epigastric abdominal pain Yuliana Hernandez MD [facility] Rad Nuclear Med Procedures [place] [address] [place] [address] Fax: Referral ID Status Reason Start Date Expiration Date Visits V isits Requested Authorized [id number] Closed Specialty 04/01/2018 04/01/2019 5 5 Service Requested Encounter Details Date Type Department Care Team Description 05/15/2018 Hospital Encounter Nuclear Medicine at [place]ul[place] [address] [place] [address] [phone] Social History Tobacco Use Types Packs/Day Years [...] Yuliana Hernandez MD [facility] [address] [place] [address] (Wo roz) 08/28/2022 Office Visit Gastroenterology Andrew Smith PA [facility] [address] [place] [address] (Wo roz) documented as of this encounter Procedures Procedure Name Priority Date/Time Associated Diagnosis Comme [facility] GASTRIC EMPTYING Routine 05/15/2018 12:46 PM Epigastric [...] IMPRESSION Normal gastric emptying Yuliana Hernandez MD [facility] ORDERABLES documented in this encounter Visit Diagnoses Not on filedocumented in this encounter Care Teams Buggy Loader Relationship Specialty Start Date End Date Hai Lopez DO PCP - General Family Medicine 10/10/[address] [place] [address] documented as of this encounter
--- OUTSIDE RECORDS SUMMARY | 2022-05-05 00:46 | XMS_ITS | Encounter Summary ---
:1960 Author Organization [facility] [place] [address] Care Team Providers Name Role Phone Hai Gallegos MD Primary Care Provider Encounter Details Date Type Department Care Team Description 08/20/2017 Hospital Encounter Radiology Library at Phillip Gallegos [facility] [place] Tosh[facility] [address] [place] [phone] (Wo rk) Social History Tobacco Use Types [...] 1 tablet by mouth 10 tablet 0 02/23/201 //20 mg Tablet every 4 hours as needed [...] [facility] [place] [place] [address] (Wo rk) 08/28/2022 Office Visit Gastroenterology Andrew Smith PA [facility] [address] [place] [address] (Wo rk) documented [...] Phon e Number DH RAD DH RAD [place], [place] documented in this encounter Visit Diagnoses Not on filedocumented in this encounter Care Teams Gambling Broker Relationship Specialty Start Date End Date Hai Gallegos MD PCP - General 05/31/10 10/09/[address] [place] [address] documented as of this encounter
--- OUTSIDE RECORDS SUMMARY | 2022-05-05 00:46 | XMS_ITS | Encounter Summary ---
:1960 Author Organization [facility] [place] [address] Care Team Providers Name Role Phone ChengHai riley DO Primary Care Provider Reason for Visit Auth/Cert Specialty Diagnoses / Procedures Referred By Contact Refer red To Contact Diagnoses abd pain, diarrhea, nausea Procedures PRO UPPER GI ENDOSCOPY, DIAGNOSTIC PRO COLONOSCOPY, DIAGNOSTIC EGD, UPPER GI ENDOSCOPY COLONOSCOPY, DIAGNOSTIC Referral ID Status Reason Start Date Expiration Date Visits Requ ested Visits Authorized [id number] 1 1 Encounter Details Date Type Department Care Team Description 10/10/2017 Hospital Encounter Gastroenterology at [facility] Yuliana Hernandez, [facility] [place] [address] [facility] [phone] [place] [address] [place] [place] [address] Social History Tobacco Use Types Packs/Day [...] to be checked. Sunday-Sunday Same Day Endo [phone] 7a-8p Otherwise contact [phone] and ask to speak to the commercial center manager retail sales vitamin consultant Follow up care is a pan part [...] Appointment Radiology Yuliana Hernandez MD [facility] [address] [place] [address] (Wo rk) 08/28/2022 Office Visit Gastroenterology Andrew Smith PA [facility] [address] [place] [address] (Wo rk) documented [...] 201 8 4:32 EDT PM EDT Narrative [facility] ORY - 10/10/2017 4:32 PM EDT Specimen requisition ordered. ??Separate Pathology report to follow Richmond Orellana MD PATHOLOGY/CYTOLOGY ORDERABLE S Performing Organization Address City/State/ZIP [place] [address] Surgical Pathology Report (10/10/2017 4:19 PM EDT) Component Value Ref Test Analysis Performed At [facility] gist Range Method Time Signature Surgical [id number] ? Location: 4T; EA07; A [facility] Report The signing pathologist has (i) examined the relevant preparation(s) for the [facility] specimen(s) and (ii) rendered or confirmed [...] Gunner Morrell Verified: ??10/17/2017 ?Pathologist Performed at: ??-[facility] Dept. of Pathology, [place], [place] DISCUSSION 1. ??There is no histological [...] MD PATHOLOGY/CYTOLOGY ORDERABLE S Performing Organization Address City/[facility]/[place] [address] Specimen to Pathology (10/10/2017 4:19 PM EDT) Specimen Anatomical Collection Method Collection Time Receive d Time (Source) Location / / Volume Laterality AP Specimen 10/10/2017 4:19 PM 8 4:19 EDT PM EDT Narrative [facility] OR - 10/10/2017 4:19 PM EDT Specimen requisition ordered. ??Separate Pathology report to follow Richmond Orellana MD PATHOLOGY/CYTOLOGY ORDERABLE S Performing Organization Address City/[facility] [place] [address] Specimen to Pathology (10/10/2017 4:19 PM EDT) Specimen Anatomical Collection Method Collection Time Receive d Time (Source) Location / / Volume Laterality AP Specimen 10/10/2017 4:19 PM 8 4:19 EDT PM EDT Narrative [facility] OR - 10/10/2017 4:19 PM EDT Specimen requisition ordered. ??Separate Pathology report to follow Richmond Orellana MD PATHOLOGY/CYTOLOGY ORDERABLE S Performing Organization Address City/[facility]/ZIP Code Phon e Number [address] Specimen to Pathology (10/10/2017 4:19 PM EDT) Specimen Anatomical Collection Method Collection Time Receive d Time (Source) Location / / Volume Laterality AP Specimen 10/10/2017 4:19 PM 8 4:19 EDT PM EDT Narrative [facility] - 10/10/2017 4:19 PM EDT Specimen requisition ordered. ??Separate Pathology report to follow Richmond Orellana MD PATHOLOGY/CYTOLOGY ORDERABLE S Performing Organization Address City/[facility] [place] [address] COLONOSCOPY (10/10/2017 3:58 PM EDT) [facility] Method Time Signature COLONOSCOPY [facility] PROVATION Endoscopy Procedure Date: 10/10/2017 3:58 PM ? Patient Name: Mary Beth Holman ? Date of : 1960 ? Age: 57 ? Order #: [id number] ? Instrument Name: [facility]-[id number] ? Procedure: ? Colonoscopy Indications: ? Chronic [...] Component Value Ref Test Analysis Performed At [facility] Range Method Time Signature UPPER GI [facility] PROVATION ENDOSCOPY Endoscopy Procedure Date: 10/10/2017 3:57 PM ? Patient Name: Mary Beth Holman ? Date of : 1960 ? Age: 57 ? Order #: [id number] ? Instrument Name: [id number] ? Procedure: ? Upper GI endoscopy Indications: [...] reactions. The ? Endoscope was introduced thro [facility] the ? mouth, and [facility] to the [facility] ? of duodenum. The patient tole [...] Victor Manuel Terrell RN) ONCE PRN, Starting 10/10/17 at 1558, U ntil Sun10/10/17 at 2016, [...] Routine documented in this encounter Care Teams Electronics Technician Apprentice Relationship Specialty Start Date End Date Hai Lopez DO PCP - General Family Medicine 10/10/[address] [place] [address] documented as of this encounter
--- OUTSIDE RECORDS SUMMARY | 2022-05-05 00:46 | XMS_ITS | Encounter Summary ---
:1960 Author Organization [facility] [place] [address] Care Team Providers Name Role Phone JohnHai DO Primary Care Provider Reason for Visit Reason Comments Follow-up Encounter Details Date Type Department Care Team Description 10/26/2017 Office Visit Gastroenterology at [facility] Yuliana Hernandez, H/O liver transplant; [facility] Lisa soto MD Hepatic cirrhosis, unspecified hepatic c irrhosis type, unspecified whether ascites present; [place] [address] [facility] hepatitis C without hepatic coma; [phone] [place] (nonalcoholic steatohepatitis) [place] [address] Social History Tobacco Use Types Packs/Day Years [...] trials I forward her information to her materials handling coordinator. She is not a candidate for vitamin [...] Hernandez MD Section of Gastroenterology & Hepatology [address] [place] [address] 29 minutes of this 30 minute visit was spent in discussion. Cc: Hai Lopez DO documented in this encounter Plan of Treatment Upcoming Encounters Date Type Specialty Care Team Description 08/28/2022 Laboratory Appointment Lab 08/28/2022 Appointment Radiology Yuliana Hernandez MD [facility] [address] [place] [address] (Wo roz) 08/28/2022 Office Visit Gastroenterology Andrew Smith PA [facility] [address] [place] [address] (Wo roz) Scheduled Orders Name [...] disease documented in this encounter Care Teams Screen Printer Relationship Specialty Start Date End Date Hai Lopez DO PCP - General Family Medicine 10/10/[address] [place] [address] documented as of this encounter
--- OUTSIDE RECORDS SUMMARY | 2022-05-05 00:46 | XMS_ITS | Encounter Summary ---
:1960 Author Organization [facility] Address [facility] [place] [address] Care Team Providers Name Role Phone Hai Lopez DO Primary Care Provider Reason for Visit Auth/Cert Specialty Diagnoses / Procedures Referred By Contact Refer red To Contact Diagnoses abd pain, diarrhea, nausea Procedures PRO UPPER GI ENDOSCOPY, DIAGNOSTIC PRO COLONOSCOPY, DIAGNOSTIC EGD, UPPER GI ENDOSCOPY COLONOSCOPY, DIAGNOSTIC Referral ID Status Reason Start Date Expiration Date Visits Requ ested Visits Authorized [id number] 1 1 Encounter Details Date Type Department Care Team Description 10/10/2017 Surgery [place] [place] [facility] Richmond Orellana EGD WITH BIOPSY ([facility] Lisa Jeter MD [address].49) [place] [address] [facility] [phone] DR GASTROENTEROLOGY [place], [place] [address] Social History Tobacco Use Types [...] to be checked. Sunday-Sunday Same Day Endo [phone] 7a-8p Otherwise contact [phone] and ask to speak to the pershing missile crewmember lead generation specialist Follow up care is a pan part [...] MD [facility] [address] [place], [place] [address] (Wo rk) 08/28/2022 Office Visit Gastroenterology Andrew Smith PA [facility] [address], [place] [address] (Wo rk) documented as of [...] Organization Address City/State/[place] [address] [facility] LABORATORY Drive Surgical Pathology Report (10/10/2017 4:19 PM EDT) Component Value Ref Test Analysis Performed At [facility] gist Range Method Time Signature Surgical [id number] ? Location: 4T; EA07; A [facility] Report The signing pathologist has (i) examined the relevant preparation(s) for the [facility] specimen(s) and (ii) rendered or confirmed [...] Gunner Morrell Verified: ??10/17/2017 ?Pathologist Performed at: ??-[facility] Dept. of Pathology, [place], [place] DISCUSSION 1. ??There is no histological [...] PATHOLOGY/CYTOLOGY ORDERABLE S Performing Organization Address City/[facility]/[place] [address] Specimen to Pathology (10/10/2017 4:19 PM EDT) Specimen Anatomical Collection Method Collection Time Receive d Time (Source) Location / / Volume Laterality AP Specimen 10/10/2017 4:19 PM 8 4:19 EDT PM EDT Narrative [facility] ORY - 10/10/2017 4:19 PM EDT Specimen requisition ordered. ??Separate Pathology report to follow Richmond Orellana MD PATHOLOGY/CYTOLOGY ORDERABLE S Performing Organization Address City/[facility]/ZIP [facility] [place] [address] Specimen to Pathology (10/10/2017 4:19 PM EDT) Specimen Anatomical Collection Method Collection Time Receive d Time (Source) Location / / Volume Laterality AP Specimen 10/10/2017 4:19 PM 8 4:19 EDT PM EDT Narrative [facility] - 10/10/2017 4:19 PM EDT Specimen requisition ordered. ??Separate Pathology report to follow Richmond Orellana MD PATHOLOGY/CYTOLOGY ORDERABLE S Performing Organization Address [facility]/[place] [address] Specimen to Pathology (10/10/2017 4:19 PM EDT) Specimen Anatomical Collection Method Collection Time Receive d Time (Source) Location / / Volume Laterality AP Specimen 10/10/2017 4:19 PM 8 4:19 EDT PM EDT Narrative [facility] OR - 10/10/2017 4:19 PM EDT Specimen requisition ordered. ??Separate Pathology report to follow Richmond Orellana MD PATHOLOGY/CYTOLOGY ORDERABLE S Performing Organization Address [facility] [place] [address] COLONOSCOPY (10/10/2017 3:58 PM EDT) [facility] Method Time Signature COLONOSCOPY [facility] PROVATION Endoscopy Procedure Date: 10/10/2017 3:58 PM ? Patient Name: Mary Beth Holman ? Date of : 1960 ? Age: 57 ? Order #: [id number] ? Instrument Name: [facility]-[id number] ? Procedure: ? Colonoscopy Indications: ? Chronic [...] MD GENERAL SURGICAL ORDERABLES Performing Organization Address City/State/[facility] Phon e Number PROVATION UPPER GI ENDOSCOPY (10/10/2017 3:57 PM EDT) Component Value Ref Test Analysis Performed At [facility] Method Time Signature UPPER GI [facility] PROVATION ENDOSCOPY Endoscopy Procedure Date: 10/10/2017 3:57 PM ? Patient Name: Mary Beth Holman ? Date of : 1960 ? Age: 57 ? Order #: [id number] ? Instrument Name: [id number] ? Procedure: ? Upper GI endoscopy Indications: [...] reactions. The ? Endoscope was introduced thro [facility] the ? mouth, and [facility] ? [facility] duod[facility]. The patient [...] Terrell, RN)1606 (Given - Provider: Victor Manuel Terrell RN)1615 (Given - Provider: Victor Manuel Terrell RN) ONCE PRN, Starting Sun10/10/17 at 1558, U ntil 10/10/17 at 2016, Intra-Operative (Intra-Procedure), Routine documented in this encounter Care Teams Tool Machine Shop Supervisor Relationship Specialty Start Date End Date Hai Lopez DO PCP - General Family Medicine 10/10/17 [address] [place] [address] documented as of this encounter
--- OUTSIDE RECORDS SUMMARY | 2022-05-05 00:46 | XMS_ITS | Encounter Summary ---
:1960 [place] [address] Care Team Providers Name Role Phone Hai Gallegos MD Primary Care Provider [phone] Reason for Visit Auth/Cert Specialty Diagnoses / Procedures Referred By Contact Refer red To Contact Diagnoses Sialadenitis sialadenitis Procedures PRO EXCISION SUBMAXILLARY GLAND EXCISION SUBMANDIBULAR (SUBMAXILLARY) GL[facility]GARY [facility] Referral ID Status Reason Start Date Expiration Date Visits Requ ested Visits Authorized [id number] 1 1 Encounter Details Date Type Department Care Team Description 02/23/2017 Surgery Main Operating Room Salty Butler SUBMANDIBULAR Yuliana Nicole MD (SUBMAXILLARY) GLAND-GARY [facility] ([facility] [address] [place] [address] DEPT. [phone] [place], [place] [address] (Wo rk) Social History Tobacco [...] discussed. Should you have questions, please call [phone] during business hours. After hours, call [phone] and ask to speak with the ENT resident fire battalion chief. documented in this encounter Medications at Time [...] Butler MD - 02/23/2017 10:05 AM EDT [facility] [place] Patient Name: Mary Beth Holman : [id number] MR#: [id number] Case Date: 02/23/2017 Surgeon: Surgeon(s) and Role: * Salty Butler MD - Primary * Berry Montez PA Preoperative diagnosis: sialadenitis Postoperative diagnosis: sialadenitis Procedure(s) (LRB): EXCISION SUBMANDIBULAR (SUBMAXILLARY) GLAND-GARY ([facility] 6.14) (Left) : PA/BARBI assistant community manager surgeon (no qualified resident available) Anesthesia: General [...] was marked and injected with 1% xylocaine [id number] epinephrine. Incision made through skin, fat and [...] Yuliana Hernandez MD [facility] [address] [place], [place] [address] (Wo rk) 08/28/2022 Office Visit Gastroenterology Andrew Smith PA [facility] [address] [place], [place] [address] (Wo rk) documented as of [...] Signature POC Glucose 154 65 - 199 [facility] mg/dL [facility] LABORATORY Comment: Supplemental ranges: <140 mg/dL before meals <180 mg/dL all other times of the day Specimen Anatomical Collection Method Collection Time Receive d Time (Source) Location / / Volume Laterality Blood specimen 02/23/2017 10:41 7 (specimen) AM EDT 10:41 AM EDT Salty Butler MD POINT OF CARE TEST ORDERABLE S Performing Organization Address City/State/ZIP [place] [address] Surgical Pathology Report (02/23/2017 10:01 AM EDT) Component Value Ref Test Analysis Performed At [facility] gist Range Method Time Signature Surgical [id number] ? Location: [facility]; [facility]; A [facility] Report The signing pathologist has (i) [...] Organization Address City/State/[place] [address] Specimen to Pathology (surgical or derm) (02/23/2017 10:01 AM EDT) Specimen Anatomical Collection Method Collection Time Receive d Time (Source) Location / / Volume Laterality AP Specimen 02/23/2017 10:01 02/23/2017 AM EDT 10:01 AM EDT Narrative [facility]Y - 02/23/2017 10:01 AM EDT Specimen requisition ordered. ??Separate Pathology report to follow Salty Butler MD PATHOLOGY/CYTOLOGY ORDERABLE S Performing Organization Address City/[facility]/ZIP Code Phon e Number [address] POCT Glucose (02/23/2017 7:24 AM EDT) P athologist Signature POC Glucose 147 65 - 199 [facility] mg/dL [facility] Comment: Supplemental ranges: <140 mg/dL before meals <180 mg/dL all other times of the day Specimen Anatomical Collection Method Collection Time Receive d Time (Source) Location / / Volume Laterality Blood specimen 02/23/2017 7:24 AM 017 7:24 (specimen) EDT AM EDT Salty Butler MD POINT OF CARE TEST ORDERABLE S Performing Organization Address City/State/ZIP Code Phon e Number [address] documented in this encounter [...] PRN, Starting on Sun02/23/17 at 0919, Until 8/18/17 at 1350, Intra-Operative (Intra-Procedure), Routine oxyCODONE (ROXICODONE) [...] (CANCELED) 07 (New Bag - Provider: Carmen Basurto RN)0837 [...] override documented in this encounter Care Teams Avionics Systems Technician Relationship Specialty Start Date End Date Hai Gallegos MD PCP - General 05/31/10 10/09/[address] [place] [address] documented as of this encounter
--- OUTSIDE RECORDS SUMMARY | 2022-05-05 00:46 | XMS_ITS | Encounter Summary ---
:1960 Author Organization [facility] [address] Care Team Providers Name Role Phone Hai Gallegos MD Primary Care Provider [phone] Encounter Details Date Type Department Care Team Description 08/16/2017 Hospital Encounter Radiology Library at Phillip Gallegos [facility] MD Toshia [facility] [address] [place] [phone] (Wo rk) Social History Tobacco Use Types [...] Yuliana Hernandez MD [facility] [address] [place] [address] (Wo rk) 08/28/2022 Office Visit Gastroenterology Andrew Smith PA [facility] [address] [place] [place] [address] (Wo rk) documented [...] City/State/ZIP Code Phon e Number [facility] [place], [place] documented in this encounter Visit Diagnoses Not on filedocumented in this encounter Care Teams Edge Beader Relationship Specialty Start Date End Date Hai Glalegos MD PCP - General 05/31/10 10/09/17 [address] [facility] [address] documented as of this encounter
--- OUTSIDE RECORDS SUMMARY | 2022-05-05 00:46 | XMS_ITS | Encounter Summary ---
:1960 Author Organization [facility] [place] [address] Care Team Providers Name Role Phone JohnHai DO Primary Care Provider Encounter Details Date Type Department Care Team Description 09/27/2018 Orders Only Weight and Wellness at [place] bethany Quigley MD [facility] [address] [place] [address] [place] [address] [phone] Social History Tobacco Use Types Packs/Day Years [...] Lab 08/28/2022 Appointment Radiology Yuliana Hernandez MD [facility] [address] [place], [place] [address] (Wo rk) 08/28/2022 Office Visit Gastroenterology Andrew Smith PA [facility] [address] [place], [place] [address] (Wo rk) documented as of this encounter Visit Diagnoses Not on filedocumented in this encounter Care Teams Cafe Attendant Relationship Specialty Start Date End Date Hai Lopez DO PCP - General Family Medicine 10/10/[address] [place] [address] documented as of this encounter
--- OUTSIDE RECORDS SUMMARY | 2022-05-05 00:46 | XMS_ITS | Encounter Summary ---
:1960 Author Organization [facility] [place] [address] Care Team Providers Name Role Phone Hai Lopez DO Primary Care Provider Reason for Referral Consultation (Routine) - Closed Specialty Diagnoses / Procedures Referred By Contact Refer red To Contact Sleep Center Diagnoses Suspected sleep apnea Sri Briseno MD [facility] Sleep Medicine [facility] [address] [address] Fax: Referral ID Status Reason Start Date Expiration Date Visits V isits Requested Authorized [id number] Closed Specialty 09/27/2018 09/27/2019 1 1 Service Requested Reason for Visit Reason Comments Weight Management Consultation (Routine) - Specialty Diagnoses / Procedures Referred By Contact Refer red To Contact Weight and Wellness Diagnoses Class 1 obesity with serious comorbidity and body mass index (BMI) of 32.0 to 32.9 in adult, unspecified obesity type Yuliana Hernandez MD [facility] Weight Wellness [facility] [address] [address] Phone: Fax: Referral ID Status Reason Start Date Expiration Date Visits V isits Requested Authorized [id number] Consult, 08/22/2018 08/22/2019 1 1 Test & Treat Encounter Details Date Type Department Care Team Description 09/27/2018 Office Visit Weight and Wellness Sri Briseno, [facility] ss 1 obesity; at [facility] Suspected sleep apnea; [address] [facility] Type 2 diabetes mellitus wit h hyperglycemia, with long-term current use of insulin; [place], [place] Essential hypertension; [address] [place] [address] BUI (nonalcoholic steatohepatitis) [phone] Social History Tobacco Use Types Packs/Day Years [...] intake appointment with our dietitian and health flag football coach--please bring a 7-day food log to [...] a 58 y.o. female referred to the [facility] for an evaluation of obesity. Weight [...] in the past. She has not used sifp-krn-uuqnxnv or prescription weight loss medications in the [...] L-sided sciatica) and owns a Wii Fit. [facility] Initial Responses 09/27/2018 URICA - Readiness Score [...] TFEQ-Emotional Eating 55.55 Food Insecurity Score 2 [place] Category I Result 1 (Positive) [place] Category II Result 0 [place] Category III 1 (Positive) [place] Sleep Apnea Total 2 (High Risk) Schooling [...] RECOMMENDATIONS: Mary Beth Holman presents to the [facility] for a consultative visit regarding obesity management. [...] that obesity is a chronic disease requiring long term care administrator management. Obesity is associated with increased risk [...] the Healthy Lifestyles Program (HLP) at the [facility]. This is a yearlong program during which the patient will receive counseling, education, and support around nutrition, physical activity, and behavioral therapy. Her case will be reviewed by our team to determine appropriateness for participation in the program. ?? Qualifies for DPP based on DPRP score of 17 ?? Will schedule an intake appointment with our dietitian and health flag football coach--she will keep a 7-day food journal [...] 40 minutes of which were spent in qfou-jr-neiy discussion/counseling re obesity, nutrition and activity as well as obesity related co-morbidities. Follow up with MD in 1 month, sooner as needed. documented in this encounter Plan of Treatment Upcoming Encounters Date Type Specialty Care Team Description 08/28/2022 Laboratory Appointment Lab 08/28/2022 Appointment Radiology Yuliana Hernandez MD [facility] Medical [facility] [place] [address] (Wo roz) 08/28/2022 Office Visit Gastroenterology Andrew Smith PA [facility] [place] [address] (Wo roz) Scheduled Referrals [...] P athologist Signature LDL Chol 180 mg/dL [facility] LABORATORY Comment: Lowest Risk: <100 mg/dL Lower Risk: 100-129 mg/dL Borderline High Risk: 130-159 mg/dL High Risk: 160-189 mg/dL Very High Risk: >xi=033 mg/dL Specimen Anatomical Collection Method Collection Time Receive d Time (Source) Location / / Volume Laterality Blood specimen 09/27/2018 10:44 9 (specimen) AM EDT 12:48 PM EDT Resulting Agency Comment Spec In Lab Sri Briseno MD CHEMISTRY ORDERABLES Performing Organization Address City/State/[place] [address] Lipid Panel (09/27/2018 10:44 AM EDT) P athologist Signature Chol, Total 257 mg/dL [facility] Comment: Lower Risk: <200 mg/dL Average Risk: 200-239 mg/dL Higher Risk: >zp=408 mg/dL Triglycerides 414 mg/dL [facility] Comment: Average Risk/Lower Risk: <150 mg/dL Borderline High Risk: 150-199 mg/dL High Risk: 200-499 mg/dL Very High Risk: >mm=789 mg/dL HDL 45 mg/dL [facility] Comment: Males: ?? Higher Risk: <40 mg/dL Females: ?? HIgher Risk: <50 mg/dL LDL Cholesterol Not Calculated [facility] Comment: Since a calculated LDL value is not shayna d for triglycerides greater than 400 mg/dl, a direct LDL determination is per formed instead. Lowest Risk: <100 mg/dL Lower Risk: 100-129 mg/dL Borderline High Risk: 130-159 mg/dL High Risk: 160-189 mg/dL Very High Risk: >ry=540 mg/dL Chol/HDL Ratio 5.7 ratio [facility] Lipid Interpretation See Note [facility] Comment: Lipid management should be guided by a p atient? s ASCVD risk, goals and preferences. ACC/AHA Guidelines recommend high intens ity statin if clinical ASCVD or LDL greater than or equal to 190 mg/dL. http://BeyondCore.com/ZWL-NQT-Vxpmndlmj Adults aged 40-75 with LDL 70-189 mg/dL should have their 10 year ASCVD risk estimated with the ACC/AHA ASCVD risk es timator http://tools.acc.org/EJDWP-Cfca-Lwczqssb r/ Statin should be discussed if risk [...] Organization Address City/State/ZIP Code Phon e Number [facility] [place] [address] (ABNORMAL) Hemoglobin A1c (09/27/2018 10:44 AM EDT) Analysis Performed At Patho logist Time Signature Hemoglobin A1C 7.7 (H) 4.3 - 5.6 [facility]ORY Comment: Reference Range: 4.3 - 5.6% [...] S67-74 Est Avg Gluc 175 mg/dL [facility] Comment: eAG equivalents for HbA1c percentages: HbA1c(%) ?eAG(mg/dL) 6.0 ?126 6.5 ?140 7.0 ?154 7.5 ?169 8.0 ?183 8.5 ?197 9.0 ?212 9.5 ?226 10.0 ? 240 Limitations: The eAG calculation has not been validated on women, individuals below 18 years old and above 70 years old, and individuals with hemoglobinopathies. Additional resources are available on [facility] ADA website. Michele CAMPOS, Destinee J, Danelle R, et al. ??Tr anslating the A1C assay into estimated average glucose values. ??Diabetes Care 2008:31(8):8217-5838. Specimen Anatomical Collection Method Collection Time Receive d Time (Source) Location / / Volume Laterality Blood specimen 09/27/2018 10:44 9 (specimen) AM EDT 12:43 PM EDT Resulting Agency Comment Spec In Lab Sri Briseno MD CHEMISTRY ORDERABLES Performing Organization Address City/State/[place] [address] TSH (09/27/2018 10:44 AM EDT) P athologist Signature TSH 1.85 0.27 - 4.20 [facility] mcIU/mL [facility] Specimen Anatomical Collection Method Collection Time Receive d Time (Source) Location / / Volume Laterality Blood specimen 09/27/2018 10:44 9 (specimen) AM EDT 12:43 PM EDT Resulting Agency Comment Spec In Lab Sri Briseno MD CHEMISTRY ORDERABLES Performing Organization Address City/State/[place] [address] documented in this encounter Visit Diagnoses Diagnosis Class 1 obesity Suspected sleep apnea Type 2 diabetes mellitus with hyperglyce cuco, with long-term current use of insulin Essential hypertension Unspecified essential hypertension BUI (nonalcoholic steatohepatitis) Other chronic nonalcoholic liver disease documented in this encounter Care Teams Lacrosse Player Relationship Specialty Start Date End Date Hai Lopez DO PCP - General Family Medicine 10/10/[address] [place] [address] documented as of this encounter
--- OUTSIDE RECORDS SUMMARY | 2022-05-05 00:46 | XMS_ITS | Encounter Summary ---
:1960 Author Organization [place] [address] Care Team Providers Name Role Phone Hai Lopez DO Primary Care Provider Reason for Visit Diagnostic Test (Routine) - Closed Specialty Diagnoses / Procedures Referred By Contact Refer red To Contact Radiology Diagnoses Epigastric abdominal pain Yuliana Hernandez MD [facility] Rad Nuclear Med Procedures [place] [address] [place] [address] Fax: Referral ID Status Reason Start Date Expiration Date Visits V isits Requested Authorized [id number] Closed Specialty 04/01/2018 04/01/2019 5 5 Service Requested Encounter Details Date Type Department Care Team Description 05/15/2018 Hospital Encounter Nuclear Medicine at Yul[place] [address] [place] [address] [phone] Social History Tobacco Use Types Packs/Day Years [...] Lab 08/28/2022 Appointment Radiology Yuliana Hernandez MD [facility] [address] [place], [place] [address] (Wo roz) 08/28/2022 Office Visit Gastroenterology Andrew Smith PA [facility] [address] [place] [address] (Wo roz) documented as of this encounter Procedures Procedure Name Priority Date/Time Associated Diagnosis Comme [facility] GASTRIC EMPTYING Routine 05/15/2018 12:46 PM Epigastric [...] IMPRESSION Normal gastric emptying Yuliana Hernandez MD [facility] ORDERABLES documented in this encounter Visit Diagnoses Not on filedocumented in this encounter Care Teams Counter Roller Relationship Specialty Start Date End Date Hai Lopez DO PCP - General Family Medicine 10/10/[address] [place] [address] documented as of this encounter
--- OUTSIDE RECORDS SUMMARY | 2022-05-05 00:46 | XMS_ITS | Encounter Summary ---
:1960 Author Organization [facility] [place] [address] Care Team Providers Name Role Phone Hai Lopez Corey MOORE Primary Care Provider Encounter Details Date Type Department Care Team Description 05/10/2018 Office Visit Gastroenterology at [facility] Yuliana Hernandez, Hepatic cirrhosis, [facility] Lisa [place]oto [place] [address] One Medical cirrhosis type, Center unspecified whether [place], [place] ascites present [address] Social History Tobacco Use Types Packs/Day Years [...] encounter Progress Notes Yuliana Hernandez MD - 05/10/2018 9:30 AM EDT [...] functional dyspepsia would include FDGard or FODMAP. Yuliana Hernandez MD Section of Gastroenterology & Hepatology [address] [place], [place] [id number] 25 minutes of this 26 minute visit was spent in discussion. Cc: Hai Lopez DO documented in this encounter Plan of Treatment Upcoming Encounters Date Type Specialty Care Team Description 08/28/2022 Laboratory Appointment Lab 08/28/2022 Appointment Radiology Yuliana Hernandez MD [facility] [address] [place], [place] [address] (Wo roz) 08/28/2022 Office Visit Gastroenterology Andrew Smith PA [facility] [address] [place] [address] (Wo rk) documented as of this [...] Electronically signed by: Jing peralta MD, Radiology [facility] ([phone]), at 10:44 AM ?Jing Betancur, Staff Physician Electronically Signed Final Report ?? 01:03 pm Narrative 08/22/2018 1:04 PM EST Abdominal ?(Signed Final 08/22/2018 01:03 pm) PATIENT INFO: ID #: ? [id number] ?: ??[birth year] (57 yrs) Name: ? MARY BETH HOLMAN ?Visit Date: 08/22/2018 09:36 am PERFORMED BY: Performed By: ? More Mccullough RDMS Attending: ?Gypsy REBOLLAR, Durga Morrell. Resident: ? Kalen REBOLLAR, Max Valentino Referred By: ?YULIANA HERNANDEZ Location: ? [facility] SERVICE(S) PROVIDED: ??BD - Abdominal Complete Survey - I [id number] ?[id number] INDICATIONS: ??cirrhosis, hx of Hep C, HCC [...] 01:0 3 pm) PATIENT INFO: ID #: [id number] : 58 (57 y rs) Name: MARY BETH HOLMAN Visit Date: 08/22 09:36 am PERFORMED BY: Performed By: More Mccullough RDMS Attending: Jing Betancur MD Resident: Max Higuera MD Referred By: YULIANA HERNANDEZ Location: [facility] SERVICE(S) PROVIDED: [facility] - Abdominal Complete Survey - IMG [id number] INDICATIONS: cirrhosis, hx of Hep C, HCC [...] Electronically signed by: Jing peralta MD, Radiology [facility] ([phone]), at 10:44 AM Jing Betancur, Staff Physician Electronically Signed Final Report 08/22 01:03 pm Yuliana Hernandez MD IMG US GEN ORDERABLES AFP tumor marker (08/22/2018 8:23 AM EST) athologist Signature AFP 2.4 <=8.3 ng/mL [facility] Specimen Anatomical Collection Method Collection Time Receive d Time (Source) Location / / Volume Laterality Blood specimen 08/22/2018 8:23 AM 8:29 (specimen) EST AM EST Resulting Agency Comment Spec In Lab Yuliana Hernandez MD CHEMISTRY ORDERABLES Performing Organization Address City/[facility]/ZIP [facility] [place] [address] Prothrombin Time (08/22/2018 8:23 AM EST) athologist Signature PT 11.2 9.4 - 12.5 [facility] LABORATORY INR 1.0 [facility] Comment: An INR <2.0 indicates [...] Hernandez MD HEMATOLOGY ORDERABLES Performing Organization Address City/[facility]/[place] [address] (ABNORMAL) Comprehensive metabolic panel (non-fasting) (08/22/2018 8:23 AM EST) athologist [facility] Glucose Lvl 166 65 - 199 [facility] mg/dL [facility] Comment: Diabetes: >=200 mg/dL plus symp toms BUN 19 (H) 8 - 18 mg/dL [facility] Creatinine 0.74 0.70 - 1.20 mg/dL [facility] Sodium 140 135 - [...] estions. Chloride 100 98 - 107 mmol/L [facility] CO2 25 22 - 31 mmol/L [facility] Anion Gap 15 5 - 15 mmol/L [facility] Calcium 9.9 8.5 - 10.5 mg/dL [facility] Total Protein 7.5 6.1 - 8.0 gm/dL [facility] Albumin 4.6 3.2 - 5.2 gm/dL [facility] AST 28 0 - 30 unit/L [facility] ALT 35 (H) 0 - 30 unit/L [facility] Alk Phos 91 40 - 104 unit/L [facility] Total Bilirubin 0.4 0.2 - 1.3 mg/dL [facility]ORY Estimated GFR 89 >=60 mL/min/1.73 m?? [facility] Comment: The eGFR was calculated using the CKD-EP I equation. As with all creatinine based estimates of kidney function, eGFR values calculated with the CKD-EPI equation are not accurate in patients wi th acute kidney failure, extremes of body mass or the acutely ill. http://[employer]/[facility]nkf eGFR 104 >=60 mL/min/1.73 m?? [facility] Comment: The eGFR was calculated using the CKD-EP I equation. As with all creatinine based estimates of kidney function, eGFR values calculated with the CKD-EPI equation are not accurate in patients wi th acute kidney failure, extremes of body mass or the acutely ill. http://[employer]/[facility] Specimen Anatomical Collection Method Collection Time Receive d Time (Source) Location / / Volume Laterality Blood specimen 08/22/2018 8:23 AM 019 8:29 (specimen) EST AM EST Resulting Agency Comment Spec In Lab Yuliana Hernandez MD CHEMISTRY ORDERABLES Performing Organization Address City/State/ZIP [place] [address] documented in this encounter Visit Diagnoses Diagnosis Hepatic cirrhosis, unspecified hepatic c irrhosis type, unspecified whether ascites present Hepatic cirrhosis, unspecified hepatic c irrhosis type, unspecified whether ascites present documented in this encounter Care Teams Design Engineering Manager Relationship Specialty Start Date End Date Hai Lopez DO PCP - General Family Medicine 10/10/[address] [place] [address] documented as of this encounter
--- OUTSIDE RECORDS SUMMARY | 2022-05-05 00:46 | XMS_ITS | Encounter Summary ---
:1960 Author Organization [facility] [place] [address] Care Team Providers Name Role Phone Hai Lopez DO Primary Care Provider Reason for Referral Consultation (Routine) - Specialty Diagnoses / Procedures Referred By Contact Refer red To Contact Weight and Wellness Diagnoses Class 1 obesity with serious comorbidity and body mass index (BMI) of 32.0 to 32.9 in adult, unspecified obesity type Perla Hernandez MD [facility] [address] [address] Phone: Fax: Referral ID Status Reason Start Date Expiration Date Visits V isits Requested Authorized [id number] Consult, 08/22/2018 08/22/2019 1 1 Test & Treat Encounter Details Date Type Department Care Team Description 08/22/2018 Office Visit Gastroenterology at [facility] Perla Hernandez, Hepatitis C virus infection without hepatic coma, unspecified chronicity; [facility] Lisa soto MD Class 1 obesity with serious comorbidity and body mass index (BMI) of 32.0 to 32.9 in adult, [place] [address] [facility] [phone] [address] Social History Tobacco Use Types Packs/Day Years [...] helps with that post-prandial pain. She is [id number] pieces of gum per day to stop [...] Hernandez MD Section of Gastroenterology & Hepatology [address] [place], [place] [id number] 30 minutes of this 30 minute visit was spent in discussion. Cc: Hai Lopez DO documented in this encounter Plan of Treatment Upcoming Encounters Date Type Specialty Care Team Description 08/28/2022 Laboratory Appointment Lab 08/28/2022 Appointment Radiology Perla Hernandez MD [facility] [address] [place] [address] (Wo rk) 08/28/2022 Office Visit Gastroenterology Andrew Smith PA [facility] [place] [address] (Wo rk) Scheduled Referrals Name [...] 11:16 am) PATIENT INFO: ID #: ? [id number] ?: ??[birth year] (58 yrs) Name: ? MARY BETH HOLMAN ?Visit Date: 02/12/2019 11:06 am PERFORMED BY: Performed By: ? Daren Rolle RDMS Attending: ?Domingo REBOLLAR, Lakisha [place] Referred By: ?PERLA HERNANDEZ Location: ? [place] SERVICE(S) PROVIDED: ??UABDLIM - Hepatology Protocol - Abdom inal ? 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, [...] athologist Signature PT 10.9 9.4 - 12.5 [facility] LABORATORY INR [...] Organization Address City/State/ZIP Code Phon e Number [place] [phone] (ABNORMAL) Comprehensive metabolic panel (non-fasting) (02/12/2019 10:30 AM EDT) P athologist Signature Glucose Lvl 168 65 - 199 [facility] mg/dL [facility] Comment: Diabetes: >=200 mg/dL plus symp toms BUN 26 (H) 8 - 18 mg/dL [facility] Creatinine 0.84 0.70 - 1.20 mg/dL [facility] Sodium 139 135 - 145 mmol/L [facility] Potassium 4.7 3.5 - 5.0 mmol/L [facility] Comment: Please note: ??Patients with WBC >100,00 0 may have falsely elevated Potassium levels. ??For accurate Potassium quantif ication in these patients send serum separator tube (gold top) for subsequent determinations. ??Contact the Clinical Chemistry Laboratory if there are any qu estions. Chloride 102 98 - 107 mmol/L [facility] CO2 27 22 - 31 mmol/L [facility] Anion Gap 10 5 - 15 mmol/L [facility] Calcium 9.5 8.5 - 10.5 mg/dL [facility] Total Protein 7.7 6.1 - 8.0 gm/dL [facility] Albumin 4.7 3.2 - 5.2 gm/dL [facility] AST 18 0 - 30 unit/L [facility] ALT 16 0 - 30 unit/L [facility] Alk Phos 95 35 - 105 unit/L [facility] Total Bilirubin 0.4 0.2 - 1.3 mg/dL [facility] Estimated GFR 76 >=60 mL/min/1.73 m?? [facility] Comment: The eGFR was calculated using the CKD-EP I equation. As with all creatinine based estimates of kidney function, eGFR values calculated with the CKD-EPI equation are not accurate in patients wi th acute kidney failure, extremes of body mass or the acutely ill. http://Protein Bar/123ContactFormnkf eGFR 88 >=60 mL/min/1.73 m?? [facility] Comment: The eGFR was calculated using the CKD-EP I equation. As with all creatinine based estimates of kidney function, eGFR values calculated with the CKD-EPI equation are not accurate in patients wi th acute kidney failure, extremes of body mass or the acutely ill. http://Protein Bar/[facility] Specimen Anatomical Collection Method Collection Time Receive d Time (Source) Location / / Volume Laterality Blood specimen 02/12/2019 10:30 9 (specimen) AM EDT 10:46 AM EDT Resulting Agency Comment Spec In Lab Perla Hernandez MD CHEMISTRY ORDERABLES Performing Organization Address City/State/ZIP Code Phon e Number [place] [phone] documented in this encounter Visit Diagnoses Diagnosis Hepatitis C virus infection without hepa tic coma, unspecified chronicity Class 1 obesity with serious comorbidity and body mass index (BMI) of 32.0 to 32.9 in adult, unspecified obesity type Hepatitis C virus infection without hepa tic coma, unspecified chronicity documented in this encounter Care Teams Support Staff Relationship Specialty Start Date End Date Hai Lopez DO PCP - General Family Medicine 10/10/[address] [place], [place] [address] [place] [address] documented as of this encounter
--- OUTSIDE RECORDS SUMMARY | 2022-05-05 00:46 | XMS_ITS | Encounter Summary ---
:1960 [place] [address] Care Team Providers Name Role Phone Hai Gallegos MD Primary Care Provider [phone] Reason for Visit Reason Comments Follow Up Surgery 1 week post-op DOS 02/02/17 Encounter Details Date Type Department Care Team Description 03/02/2017 Office Visit Otolaryngology at [facility] H/O submandibular [facility] C, PA gland removal Drive [address] [place] [address] OTOLARYNGOLOGY [phone] [place] [address] Social History Tobacco Use Types Packs/Day Years [...] Montez PA - 03/02/2017 4:30 PM EDT [facility] Otolaryngology - Head and Neck Surgery Berry Montez PA-C 03/02/17 5:20 PM [place] [address] Office Patient Name: Mary Beth Holman Date [...] (WRVU 6.14) performed by Salty Butler MD [facility] MAIN OR ??? WRIST SURGERY Left 2 [...] up as needed. Berry Montez PA-C 03/02/2017 [place], [place] [address] Office documented in this encounter Plan of Treatment Upcoming Encounters Date Type Specialty Care Team Description 08/28/2022 Laboratory Appointment Lab 08/28/2022 Appointment Radiology Yuliana Hernandez MD [facility] [address] [place] [address] (Wo roz) 08/28/2022 Office Visit Gastroenterology Andrew Smith PA [facility] Dr [place] [address] (Wo roz) documented as of this encounter Visit Diagnoses Diagnosis H/O submandibular gland removal Personal history of surgery to other org ans documented in this encounter Care Teams Human Resources Communications Manager Relationship Specialty Start Date End Date Hai Gallegos MD PCP - General 05/31/10 10/09/17 [address] [place] [address] documented as of this encounter
--- OUTSIDE RECORDS SUMMARY | 2022-05-05 00:46 | XMS_ITS | Encounter Summary ---
:1960 Author Organization [facility] [place] [address] Care Team Providers Name Role Phone JohnHai DO Primary Care Provider Reason for Visit Reason Onset Date Comments Advice Only 03/01/2018 Encounter Details Date Type Department Care Team Description 03/01/2018 Telephone Gastroenterology at [facility] Anna Fontanez, Advice Only [facility] Lisa [place] [address] Social History Tobacco Use Types Packs/Day [...] pain after she eats. She would use [facility] for imaging if ok with Dr. [...] Hernandez MD [facility] [address] [place] [address] (Wo rk) 08/28/2022 Office Visit Gastroenterology Andrew Smith PA [facility] [address] [place] [address] (Wo rk) documented as of this encounter Visit Diagnoses Not on filedocumented in this encounter Care Teams Clinical Education Assistant Relationship Specialty Start Date End Date Hai Lopez DO PCP - General Family Medicine 10/10/17 [address] [place] [address] documented as of this encounter
--- OUTSIDE RECORDS SUMMARY | 2022-05-05 00:46 | XMS_ITS | Encounter Summary ---
:1960 Author Organization [facility] [place] [address] Care Team Providers Name Role Phone Hai Lopez DO Primary Care Provider Reason for Visit Diagnostic Test (Routine) - Closed Specialty Diagnoses / Procedures Referred By Contact Refer red To Contact Radiology Diagnoses Epigastric abdominal pain Yuliana Hernandez MD [facility] Rad Nuclear Med Procedures NM [place]astric [place] [address] [place] [address] Fax: Referral ID Status Reason Start Date Expiration Date Visits V isits Requested Authorized [id number] Closed Specialty 04/01/2018 04/01/2019 5 5 Service Requested Encounter Details Date Type Department Care Team Description 05/15/2018 Hospital Encounter Nuclear Medicine at [place]ul[place] [address] [place] [address] [phone] Social History Tobacco Use Types Packs/Day Years [...] Lab 08/28/2022 Appointment Radiology Yuliana Hernandez MD [facility] [address] [place] [address] (Wo roz) 08/28/2022 Office Visit Gastroenterology Andrew Smith PA [facility] [address] [place] [place] [address] (Wo roz) documented as of this encounter Procedures Procedure Name Priority Date/Time Associated Diagnosis Comme [facility] GASTRIC EMPTYING Routine 05/15/2018 12:46 PM [...] Normal gastric emptying Yuliana Hernandez MD [facility] ORDERABLES documented in this encounter Visit Diagnoses Not on filedocumented in this encounter Care Teams Disabilities Services Officer Relationship Specialty Start Date End Date Hai Lopez DO PCP - General Family Medicine 10/10/[address] [place] [address] documented as of this encounter
--- OUTSIDE RECORDS SUMMARY | 2022-05-05 00:46 | XMS_ITS | Encounter Summary ---
:1960 Author Organization [facility] [place] [address] Care Team Providers Name Role Phone Hai Lopez DO Primary Care Provider Reason for Referral Diagnostic Test (Routine) - Closed Specialty Diagnoses / Procedures Referred By Contact Refer red To Contact Radiology Diagnoses Epigastric abdominal pain Yuliana Hernandez MD [facility] Rad Nuclear Med Procedures NM Gastric [place] [address] [place] [address] Fax: Referral ID Status Reason Start Date Expiration Date Visits V isits Requested Authorized [id number] Closed Specialty 04/01/2018 04/01/2019 5 5 Service Requested Reason for Visit Diagnostic Test (Routine) - Closed Specialty Diagnoses / Procedures Referred By Contact Refer red To Contact Radiology Diagnoses Epigastric abdominal pain Yuliana Hernandez MD [facility] Rad Nuclear Med Procedures NM Gastric [place] [address] [place] [address] Fax: Referral ID Status Reason Start Date Expiration Date Visits V isits Requested Authorized [id number] Closed Specialty 04/01/2018 04/01/2019 5 5 Service Requested Encounter Details Date Type Department Care Team Description 05/15/2018 Hospital Encounter Nuclear Medicine at Yuliana Hernandez , Epigastric abdominal Yuliana Gordon MD pain [facility] [address] [place], [place] [address] [phone] Social History Tobacco Use Types Packs/Day Years [...] 08/28/2022 Appointment Radiology Yuliana Hernandez MD [facility] [address] [place] [address] (Wo rk) 08/28/2022 Office Visit Gastroenterology Andrew Smith PA [facility] [place], [place] [address] (Wo rk) documented as of [...] Routine documented in this encounter Care Teams Solar Site Assessment Specialist Relationship Specialty Start Date End Date Hai Lopez DO PCP - General Family Medicine 10/10/[address] [place] [address] documented as of this encounter
--- OUTSIDE RECORDS SUMMARY | 2022-05-05 00:46 | XMS_ITS | Encounter Summary ---
:1960 Author Organization [facility] [place] [address] Care Team Providers Name Role Phone Hai Lopez DO Primary Care Provider Reason for Visit Diagnostic Test (Routine) - Closed Specialty Diagnoses / Procedures Referred By Contact Refer red To Contact Radiology Diagnoses Epigastric abdominal pain Yuliana Hernandez MD [facility] Rad Nuclear Med Procedures NM [place]astric [place] [address] [place] [address] Fax: Referral ID Status Reason Start Date Expiration Date Visits V isits Requested Authorized [id number] Closed Specialty 04/01/2018 04/01/2019 5 5 Service Requested Encounter Details Date Type Department Care Team Description 05/15/2018 Hospital Encounter Nuclear Medicine at [place] [address] [place] [address] [phone] Social History Tobacco Use Types Packs/Day Years [...] Hernandez MD [facility] [address] [place], [place] [address] (Wo roz) 08/28/2022 Office Visit Gastroenterology Andrew Smith PA [facility] [address] [place] [address] (Wo roz) documented as of this encounter Procedures Procedure Name Priority Date/Time Associated Diagnosis Comme [facility] GASTRIC EMPTYING Routine 05/15/2018 12:46 PM [...] IMPRESSION Normal gastric emptying Yuliana Hernandez MD [facility] ORDERABLES documented in this encounter Visit Diagnoses Not on filedocumented in this encounter Care Teams Rn Recovery Relationship Specialty Start Date End Date Hai Lopez DO PCP - General Family Medicine 10/10/[address] [place] [address] documented as of this encounter
--- OUTSIDE RECORDS SUMMARY | 2022-05-05 00:46 | XMS_ITS | Encounter Summary ---
:1960 Author Organization [facility] [place] [address] Care Team Providers Name Role Phone JohnHai DO Primary Care Provider Encounter Details Date Type Department Care Team Description 03/13/2018 External Results Gastroenterology at [facility] Yuliana Hernandez, [facility] [place] [address] [facility] [phone] [address] [place] [address] Social History Tobacco Use Types Packs/Day [...] Lab 08/28/2022 Appointment Radiology Yuliana Hernandez MD [facility] [address] [place] [address] (Wo rk) 08/28/2022 Office Visit Gastroenterology Andrew Smith PA [facility] [address] [place] [address] (Wo rk) documented as of this [...] 31 PT 9.4 INR 1.0 Historical Provider POINT OF CARE TEST ORDERABLE S documented in this encounter Visit Diagnoses Not on filedocumented in this encounter Care Teams Eyelet Punch Operator Relationship Specialty Start Date End Date Hai Lopez DO PCP - General Family Medicine 10/10/[address] [place] [address] documented as of this encounter
--- OUTSIDE RECORDS SUMMARY | 2022-05-05 00:46 | XMS_ITS | Encounter Summary ---
:1960 Author Organization [facility] [place] [address] Care Team Providers Name Role Phone Hai Lopez DO Primary Care Provider Reason for Visit Reason Comments Weight Management Follow-up Encounter Details Date Type Department Care Team Description 10/25/2018 Office Visit Weight and Wellness Sri Briseno, Cla ss 1 obesity due to excess calories with serious comorbidity and body mass index (BMI) of 33.0 to 33.9 in adult; at [facility] Suspected sleep apnea; 18 [facility] Type 2 diabetes mellitus wit h hyperglycemia, with long-term current use of insulin; [place], [place] Dr BUI (nonalcoholic steatohepatitis) [address] [place] [address] [phone] Social History Tobacco Use Types Packs/Day Years [...] Patient Instructions Patient InstructionsCulvSri montgomery MD - 10/25/2018 2:00 PM EDT GOALS [...] Briseno MD - 10/25/2018 2:00 PM EDT [facility] Visit Patient Name: Mary Beth Holman Date of : 1960 Age: [address] Hai Lopez, DO Thank you for referring Mary Beth Holman to the [facility] for consultation regarding obesity. CHIEF COMPLAINT: Follow-up for Obesity INTERVAL HISTORY / PROGRESS TOWARD GOALS: [x] I reviewed past / interim records including notes and labs. Mary Beth is participating in our Obesity Medicine Pathway, and hopes to transition to the Healthy Lifestyles Program. She was last seen by me on 09/27/18, and by our dietitian and health head field hockey coach on . Weight has decreased 1.5 pounds since our last visit. She reports that she the visit with the dietitian was very helpful--she has cut out chips completelyas a result. She has been tracking via the [employer] genesis, and is shooting for 1200 calories [...] wheat bread - Dinner: Flame-broiled steak tips, wolof fries, garden salad with oil and vinegar [...] AST 28 08/22/2018 ALT 35 (H) 08/22/2018 [facility] Followup Responses 09/27/2018 [facility] - Readiness Score [...] in the Obesity Medicine Pathway at the [facility], but feels well-equipped and motivated to transition [...] Scheduled for evaluation in sleep clinic in December in: 3 months I spent a total of 30 minutes with the patient 20 minutes of which were spent in [id number] discussion/counseling re obesity, nutrition and activity as well as obesity related co-morbidities documented in this encounter Plan of Treatment Upcoming Encounters Date Type Specialty Care Team Description 08/28/2022 Laboratory Appointment Lab 08/28/2022 Appointment Radiology Yuliana Hernandez MD [facility] [address] [place], [place] [address] (Wo rk) 08/28/2022 Office Visit Gastroenterology Andrew Smith PA [facility] er [address] [place], [place] [address] (Wo rk) documented [...] disease documented in this encounter Care Teams Transfer Worker Relationship Specialty Start Date End Date Hai Lopez DO PCP - General Family Medicine 10/10/17 [address] [place] [address] documented as of this encounter
--- OUTSIDE RECORDS SUMMARY | 2022-05-05 00:46 | XMS_ITS | Encounter Summary ---
:1960 Author Organization [facility] [address] Care Team Providers Name Role Phone Hai Lopez DO Primary Care Provider Reason for Referral Diagnostic Test (Routine) - Closed Specialty Diagnoses / Procedures Referred By Contact Refer red To Contact Radiology Diagnoses Epigastric abdominal pain Yuliana Hernandez MD [facility] Rad Nuclear Med Procedures [place] [address] [place] [address] Fax: Referral ID Status Reason Start Date Expiration Date Visits V isits Requested Authorized [id number] Closed Specialty 04/01/2018 04/01/2019 5 5 Service Requested Encounter Details Date Type Department Care Team Description 04/01/2018 Orders Only Gastroenterology at [facility] Yuliana Hernandez, Epigastric abdominal [facility] [place] [address] [facility] [phone] [place] [address] Social History Tobacco Use Types Packs/Day Years [...] 08/28/2022 Appointment Radiology Yuliana Hernandez MD [facility] [address] [place] [address] (Wo rk) 08/28/2022 Office Visit Gastroenterology Andrew Smith PA [facility] Dr [place], [place] [address] (Wo rk) documented as of [...] activity present in the stomach at 3 folr rs. Quantitative analysis: 2 hours: 20 percent [...] epigastric documented in this encounter Care Teams Database Marketing Analyst Relationship Specialty Start Date End Date Hai Lopez DO PCP - General Family Medicine 10/10/17 [address] [place] [address] documented as of this encounter
--- OUTSIDE RECORDS SUMMARY | 2022-05-05 00:46 | XMS_ITS | Encounter Summary ---
:1960 Author Organization [facility] [place] [address] Care Team Providers Name Role Phone Hai Gallegos MD Primary Care Provider [phone] Encounter Details Date Type Department Care Team Description 08/16/2017 Hospital Encounter Radiology Library at Phillip Gallegos [facility] [place] [facility] [address] [place] [address] [phone] (Wo rk) Social History Tobacco Use Types [...] Hernandez MD [facility] [address] [place] [address] (Wo rk) 08/28/2022 Office Visit Gastroenterology Andrew Smith PA [facility] [address] [place] [address] (Wo rk) [...] / Laterality Volume Narrative RAD - 08/21/2017 4:56 PM EST This result has an attachment that is no t available. This exam is for storage only and is aut o-finalizing. Hai Gallegos MD IMG FILM LIBRARY ORDERABLES Performing Organization Address City/State/ZIP Code Phon e Number [facility] [place], [place] documented in this encounter Visit Diagnoses Not on filedocumented in this encounter Care Teams Printing Estimator Relationship Specialty Start Date End Date Hai Gallegos MD PCP - General 05/31/10 10/09/[address] [place] [place] [address] documented as of this encounter
--- OUTSIDE RECORDS SUMMARY | 2022-05-05 00:46 | XMS_ITS | Encounter Summary ---
:1960 Author Organization [facility] [place] [address] Care Team Providers Name Role Phone Hai Gallegos MD Primary Care Provider [phone] Encounter Details Date Type Department Care Team Description 10/09/2017 Hospital Encounter Laboratory Diarrhea, unspecified [facility] [place] [address] Social History Tobacco Use Types Packs/Day [...] 20 take 1 tablet by mouth 0 10/11/19 mg Tablet once daily 8 18 promethazine-codeine [...] Lab 08/28/2022 Appointment Radiology Perla Hernandez MD [facility] [place] [address] (Wo rk) 08/28/2022 Office Visit Gastroenterology Andrew Smith PA [facility] [address] [place] [address] (Wo rk) documented as of this encounter Procedures Procedure Name Priority Date/Time Associated Comments Diagnosis STOOL CULTURE SCREEN Routine 10/09/2017 12:00 Diarrhea, ([facility]/CGP/APD/NLH) PM EDT unspecified type CAMPYLOBACTER ANTIGEN Routine [...] Routine 10/09/2017 12:00 Diarrhea, Results for this ([facility]/CGP/APD/NLH) PM EDT unspecified type proce dure are in the results section. STOOL CULTURE Routine 10/09/2017 12:00 Diarrhea, Results fo r this PM EDT unspecified type procedure a re in the results section. documented in this encounter Results Shiga Toxin Detection (10/09/2017 12:00 PM EDT) [facility] Method Time Signature Shiga Toxin EIA Negative for Shiga Toxin 1 PERLA WARWICK Assay EIA Negative for Shiga Toxin 2 [facility] Specimen Anatomical Collection Method Collection Time Receive d Time (Source) Location / / Volume Laterality Stool specimen 10/09/2017 12:00 8 6:17 (specimen) PM EDT PM EDT Resulting Agency Comment Spec In Lab Perla Hernandez MD MICROBIOLOGY - GENERAL ORDER PRAFUL Performing Organization Address City/State/ZIP [place] [address] Campylobacter Antigen (10/09/2017 12:00 PM EDT) Component Value Ref Test Analysis Performed At [facility] Method Time Signature Campylobacter Ag Immunoassay PERLA Negative for JORGE Campylobacter [facility] LABORATORY Specimen Anatomical Collection Method Collection Time Receive d Time (Source) Location / / Volume Laterality Stool specimen 10/09/2017 12:00 8 6:17 (specimen) PM EDT PM EDT Resulting Agency Comment Spec In Lab Perla Hernandez MD MICROBIOLOGY - GENERAL ORDER PRAFUL Performing Organization Address City/[facility]/[place] [address] Stool culture (10/09/2017 12:00 PM EDT) [facility] Method Time Signature Stool Culture No enteric [facility] LABORATORY Specimen Anatomical Collection Method Collection Time Receive d Time (Source) Location / / Volume Laterality Stool specimen 10/09/2017 12:00 8 6:17 (specimen) PM EDT PM EDT Resulting Agency Comment Spec In Lab Perla Hernandez MD MICROBIOLOGY - GENERAL ORDER PRAFUL Performing Organization Address City/[facility]/ZIP Code Phon e [address] Cryptosporidium Oocyst Antigen (Leb/CGP) (10/09/2017 12:00 PM EDT) [facility] gist Method Time Signature Cryptosporidium Negative Negative [facility] LABORATORY Specimen Anatomical Collection Method Collection Time Receive d Time (Source) Location / / Volume Laterality Stool specimen 10/09/2017 12:00 8 6:15 (specimen) PM EDT PM EDT Resulting Agency Comment Spec In Lab Perla Hernandez MD MICROBIOLOGY - GENERAL ORDER PRAFUL Performing Organization Address City/[facility]/ZIP Code Phon e Number [address] Giardia antigen (Leb/CGP) (10/09/2017 12:00 PM EDT) Analysis Performed At [facility] logist Time Signature Giardia Screen Negative Negative [facility] LABORATORY Comment: Examination for other intestina l parasites requires foreign travel history. Specimen Anatomical Collection Method Collection Time Receive d Time (Source) Location / / Volume Laterality Stool specimen 10/09/2017 12:00 8 6:15 (specimen) PM EDT PM EDT Resulting Agency Comment Spec In Lab Perla Hernandez MD MICROBIOLOGY - GENERAL ORDER PRAFUL Performing Organization Address City/[facility]/ZIP Code Phon e [place] [id number] HOS[address] Calprotectin, Stool (10/09/2017 12:00 PM EDT) P athologist Signature Calprotectin 44.3 <=50.0 PERLA PATEL (Normal) [facility] LABORATORY Comment: Test Performed by: [facility] - [address] [address] Specimen Anatomical Collection Method Collection Time Receive d Time (Source) Location / / Volume Laterality Stool specimen 10/09/2017 12:00 8 8:57 (specimen) PM EDT AM EDT Resulting Agency Comment Spec In Lab Perla Hernandez MD CHEMISTRY ORDERABLES Performing Organization Address City/[facility]/ZIP Code Phon e Number [address] C. Difficile Screen (10/09/2017 12:00 PM EDT) Analysis Performed At Patho logist Time Signature C Diff Screen Negative Negative [facility] LABORATORY Comment: C. diff ??Negative Clostridium difficile [...] - GENERAL ORDER PRAFUL Performing Organization Address City/[facility]/ZIP Code Phon e Number [address] documented in this encounter Visit Diagnoses Diagnosis Diarrhea, unspecified type documented in this encounter Care Teams Payroll Supervisor Relationship Specialty Start Date End Date Hai Gallegos MD PCP - General 05/31/10 10/09/[address] [place] [address] documented as of this encounter
--- OUTSIDE RECORDS SUMMARY | 2022-05-05 00:46 | XMS_ITS | Encounter Summary ---
:1960 Author Organization [facility] [place] [address] Care Team Providers Name Role Phone ChengHai riley DO Primary Care Provider Encounter Details Date Type Department Care Team Description 02/12/2019 Hospital Encounter Ultrasound at [facility] Perla Hernandez, Hepatitis C virus [facility] MD infection without Drive [facility] hepatic coma, [facility] Dr unspecified [address] [place], [place] chronicity [phone] Social History Tobacco Use Types Packs/Day Years [...] MD [facility] [address] [place] [address] (Wo rk) 08/28/2022 Office Visit Gastroenterology Andrew Smith PA [facility] [address] [place] [address] (Wo rk) documented [...] report, please contact t marina number below. 11: 10 AM ? Lakisha Lane, Staff Physician Electronically Signed Final Report ?? 11:16 am Narrative 02/12/2019 11:17 AM EDT Abdominal ? (Signed Final 02/12/2019 11:16 am) PATIENT INFO: ID #: ? [id number] ?: ??[birth year] (58 yrs) Name: ? MARY BETH ANTUNEZ ?Visit Date: 02/12/2019 11:06 am PERFORMED BY: Performed By: ? Daren Rolle RDMS Attending: ?Domingo REBOLLAR, Lakisha Douglas Referred By: ?PERLA HERNANDEZ Location: ? [place] SERVICE(S) PROVIDED: ??UABDLIM - Hepatology Protocol - Abdom inal ? 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
--- OUTSIDE RECORDS SUMMARY | 2022-05-05 00:46 | XMS_ITS | Encounter Summary ---
:1960 Author Organization [facility] [place] [address] Care Team Providers Name Role Phone Hai Lopez DO Primary Care Provider Encounter Details Date Type Department Care Team Description 10/02/2018 [facility] ss 1 obesity [address] [facility] excess calories with [address] [place] [address] and body mass index [phone] (BMI) of 30.0 t o 30.9 in [...] breakfast by 9 in the morning- consider upper sorbian yogurt and 2 eggs (hardboiled or fried) [...] Visit Date: 10/02/18 PI/Designee: Dr. 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) ; walking every day, foodchoices were no different; has had T2 for many years and knows what to eat and how much; says has noone to be accountability to anyone; has cirrhosis of liver, wants to lose weight because of T2/diabetes; has ordered a new fitness tracker; found success in past by walking more; pt lives in [place] but works in [employer] on Sunday- Sunday; only eats supper [...] in the summer time and use a [employer] Weight Today: 202.2# Weight Loss History: Appetite/Hunger: Fasting B-300 mg/dL Typical Dietary Intake: B: banana this morning OR Guamanian yogurt or banana - usually skips L: [...] Yuliana Hernandez MD [facility] [address] [place] [address] (Wo rk) 08/28/2022 Office Visit Gastroenterology Andrew Smith PA [facility] [address] [place] [address] (Wo rk) documented as of this encounter Visit Diagnoses Diagnosis Class 1 obesity due to excess calories w ith serious comorbidity and body mass index (BMI) of 30.0 to 30.9 in adult documented in this encounter Care Teams Ergonomist Relationship Specialty Start Date End Date Hai Lopez DO PCP - General Family Medicine 10/10/[address] [place] [address] documented as of this encounter
--- OUTSIDE RECORDS SUMMARY | 2022-05-05 00:46 | XMS_ITS | Encounter Summary ---
:1960 Author Organization [facility] [place] [address] Care Team Providers Name Role Phone ChengHai riley DO Primary Care Provider Encounter Details Date Type Department Care Team Description 03/12/2018 Hospital Encounter Radiology Library [place] [address] [place] [address] [phone] Social History Tobacco Use Types Packs/Day Years [...] MD [facility] [address] [place] [address] (Wo rk) 08/28/2022 Office Visit Gastroenterology Andrew Smith PA [facility] [address] [place] [address] (Wo rk) documented [...] Code Phon e Number [place], [place] documented in this encounter Visit Diagnoses Not on filedocumented in this encounter Care Teams Supervisor Mails Relationship Specialty Start Date End Date Hai Lopez DO PCP - General Family Medicine 10/10/[address] [place] [place] [address] documented as of this encounter
--- OUTSIDE RECORDS SUMMARY | 2022-05-05 00:46 | XMS_ITS | Encounter Summary ---
:1960 Author Organization [facility] Address [place] [address] Care Team Providers Name Role Phone ChengHai riley DO Primary Care Provider Encounter Details Date Type Department Care Team Description 08/22/2018 Hospital Encounter Ultrasound at [facility] Perla Hernandez, Hepatic cirrhosis, [facility] unspecified hepatic [address] [facility] cirrhosis type, [place], [place] Center unspecified whether [address] [place], [place] ascites present [phone] Social History Tobacco Use Types Packs/Day Years [...] Lab 08/28/2022 Appointment Radiology Perla Hernandez MD [facility] [address] [place] [address] (Wo roz) 08/28/2022 Office Visit Gastroenterology Andrew Smith PA [facility] [address] [place] [address] (Wo rk) [...] below. Electronically signed by: Jing peralta MD, [facility] ([phone]), at 10:44 AM ?Jing Betancur, Staff Physician Electronically Signed Final Report ?? 01:03 pm Narrative 08/22/2018 1:04 PM EST Abdominal ?(Signed Final 08/22/2018 01:03 pm) PATIENT INFO: ID #: ? [id number] ?: ??[birth year] (57 yrs) Name: ? MARY BETH ANTUNEZ ?Visit Date: 08/22/2018 09:36 am PERFORMED BY: Performed By: ? More Mccullough RDMS Attending: ?Gypsy REBOLLAR, Durga Morrell. Resident: ? Max Higuera MD Referred By: ?PERLA HERNANDEZ Location: ? [place] SERVICE(S) PROVIDED: ??UABDC - Abdominal Complete Survey - I [id number] ?[id number] INDICATIONS: ??cirrhosis, hx of Hep C, HCC [...] 01:0 3 pm) PATIENT INFO: ID #: [id number] : 58 (57 y rs) Name: MARY BETH ANTUNEZ Visit Date: 08/22 09:36 am PERFORMED BY: Performed By: More Mccullough RDMS Attending: Jing Betancur MD Resident: Max Hiugera MD Referred By: PERLA HERNANDEZ Location: [place] SERVICE(S) PROVIDED: [facility] - Abdominal Complete Survey - IMG [id number] INDICATIONS: cirrhosis, hx of Hep C, HCC [...] below. Electronically signed by: Jing peralta MD, [facility] ([phone]), at 10:44 AM Jing Betancur, Staff Physician Electronically Signed Final Report 08/22 01:03 pm Perla Hernandez MD IMG US GEN ORDERABLES documented in this encounter Visit Diagnoses Diagnosis Hepatic cirrhosis, unspecified hepatic c irrhosis type, unspecified whether ascites present documented in this encounter Care Teams Game Artist Relationship Specialty Start Date End Date Hai Lopez DO PCP - General Family Medicine 10/10/17 [address] [place] [address] documented as of this encounter
--- OUTSIDE RECORDS SUMMARY | 2022-05-05 00:46 | XMS_ITS | Encounter Summary ---
:1960 [place] [address] Care Team Providers Name Role Phone JohnHai DO Primary Care Provider Encounter Details Date Type Department Care Team Description 10/02/2018 Orders Only [facility] ass [address] BURLAP ROLL COVERER body mass index (BMI) [address] [facility] 33.0 [place] 33.9 [place] [address] [address] [address] adult, unspecified [phone] [place], [place] [address] obesity type, unspecified whe ther (Work) [...] Appointment Radiology Yuliana Hernandez MD [facility] [address] [place] [address] (Wo rk) 08/28/2022 Office Visit Gastroenterology Andrew Smith PA [facility] [address] [place] [address] (Wo rk) documented as of this encounter Visit Diagnoses Diagnosis Class 1 obesity with body mass index (BM I) of 33.0 to 33.9 in adult, unspecified obesity type, unspecified whether seriou s comorbidity present documented in this encounter Care Teams Freelance Interpreter/Translator Relationship Specialty Start Date End Date Hai Lopez DO PCP - General Family Medicine 10/10/[address] [place] [address] documented as of this encounter
--- OUTSIDE RECORDS SUMMARY | 2022-05-05 00:46 | XMS_ITS | Encounter Summary ---
:1960 Author Organization [place] [address] Care Team Providers Name Role Phone ChengHai riley DO Primary Care Provider Encounter Details Date Type Department Care Team Description 02/12/2019 Laboratory Appointment Lab 3L [facility] Hepatitis C virus [facility] infection without [facility] hepatic c taylor, Drive unspecified [place] chronicity [address] Social History Tobacco Use Types Packs/Day Years [...] Radiology Yuliana Hernandez MD [facility] [address] [place] [address] (Wo rk) 08/28/2022 Office Visit Gastroenterology Andrew Smith PA [facility] [address] [place] [address] (Wo rk) [...] P athologist Signature Neutrophils % 51.8 % [facility] Neutr Abs (ANC) 3.93 1.70 - [facility] 6.10 [facility] x10(3)/[facility] LABORATORY Lymphocytes % 36.4 % [facility] Lymphocytes Abs 2.8 0.9 - 3.2 [facility] x10(3)/[facility] LABORATORY Monocytes % 7.5 % [facility] Monocyte Abs 0.6 0.3 - 0.9 [facility] x10(3)/[facility] LABORATORY Eosinophils % 3.0 % [facility] Eosinophils Abs 0.2 0.0 - 0.4 [facility] x10(3)/[facility] LABORATORY Basophils % 0.9 % [facility] Basophils Abs 0.1 0.0 - 0.1 [facility] x10(3)/[facility] LABORATORY Immature Gran % 0.40 % [facility] Comment: Immature granulocytes(IG's)percentage an d absolute count will include metamyelocytes, myelocytes, and promyelo cytes. Blood smears from CBCs yielding IG's will be scanned manually for concor dance. If this scan disagrees with the automated IG or if promyelocytes are not ed, a manual differential will be performed. Elaina Gran Abs 0.03 0.00 - 0.04 x10(3)/[facility] LABORATORY Specimen Anatomical Collection Method Collection Time Receive d Time (Source) Location / / Volume Laterality Blood specimen 02/12/2019 10:30 9 (specimen) AM EDT 10:46 AM EDT Resulting Agency Comment Spec In Lab Yuliana Hernandez MD HEMATOLOGY ORDERABLES Performing Organization Address City/State/[place] [address] (ABNORMAL) Hemogram (02/12/2019 10:30 AM EDT) Analysis Performed At Patho logist Time Signature WBC 7.6 4.0 - 9.5 [facility] x10(3)/[facility] LABORATORY RBC 5.67 (H) 4.00 - [facility] 5.21 [facility] x10(6)/[facility] LAB[facility]ORY Hemoglobin 16.6 (H) 11.7 - [facility] 15.5 gm/dL [facility] Hematocrit 51.3 (H) 35.7 - [facility] 45.8 % [facility] MCV 90.5 82.6 - [facility] 94.4 [facility] LABORATORY MCH 29.3 27.1 - [facility] 32.0 pg [facility] MCHC 32.4 31.7 - [facility] 35.0 gm/dL [facility] Platelets 174 145 - 357 [facility] x10(3)/[facility] LABORATORY RDWSD 45.0 37.0 - [facility] 46.0 [facility] LABORATORY RDWCV 13.4 11.5 - [facility] 14.1 % [facility] MPV 11.3 7.6 - 12.9 [facility] LABORATORY nRBC % Auto 0.0 % [facility] nRBC Abs Auto 0.000 0.000 - [facility] 0.000 [facility] x10(3)/[facility] LABORATORY Specimen Anatomical Collection Method Collection Time Receive d Time (Source) Location / / Volume Laterality Blood specimen 02/12/2019 10:30 9 (specimen) AM EDT 10:46 AM EDT Resulting Agency Comment Spec In Lab Yuliana Hernandez MD HEMATOLOGY ORDERABLES Performing Organization Address City/State/[place] [address] (ABNORMAL) Comprehensive metabolic panel (non-fasting) (02/12/2019 10:30 AM EDT) P athologist Signature Glucose Lvl 168 65 - 199 [facility] mg/dL [facility] Comment: Diabetes: >=200 mg/dL plus symp toms BUN 26 (H) 8 - 18 mg/dL [facility] Creatinine 0.84 0.70 - 1.20 mg/dL [facility] Sodium 139 135 - 145 mmol/L [facility] Potassium 4.7 3.5 - 5.0 mmol/L [facility] Comment: Please note: ??Patients with WBC >100,00 0 may have falsely elevated Potassium levels. ??For accurate Potassium quantif ication in these patients send serum separator tube (gold top) for subsequent determinations. ??Contact the Clinical Chemistry Laboratory if there are any qu estions. Chloride 102 98 - 107 mmol/L [facility] CO2 27 22 - 31 mmol/L [facility] Anion Gap 10 5 - 15 mmol/L [facility] Calcium 9.5 8.5 - 10.5 mg/dL [facility] Total Protein 7.7 6.1 - 8.0 gm/dL [facility] Albumin 4.7 3.2 - 5.2 gm/dL [facility] AST 18 0 - 30 unit/L [facility] ALT 16 0 - 30 unit/L [facility] Alk Phos 95 35 - 105 unit/L [facility] Total Bilirubin 0.4 0.2 - 1.3 mg/dL [facility] Estimated GFR 76 >=60 mL/min/1.73 m?? [facility] Comment: The eGFR was calculated using the CKD-EP I equation. As with all creatinine based estimates of kidney function, eGFR values calculated with the CKD-EPI equation are not accurate in patients wi th acute kidney failure, extremes of body mass or the acutely ill. http://Omnigy/[facility]YMONnkf eGFR 88 >=60 mL/min/1.73 m?? [facility] Comment: The eGFR was calculated using the CKD-EP I equation. As with all creatinine based estimates of kidney function, eGFR values calculated with the CKD-EPI equation are not accurate in patients wi th acute kidney failure, extremes of body mass or the acutely ill. http://Omnigy/[facility] GUYMONnkf Specimen Anatomical Collection Method Collection Time Receive d Time (Source) Location / / Volume Laterality Blood specimen 02/12/2019 10:30 9 (specimen) AM EDT 10:46 AM EDT Resulting Agency Comment Spec In Lab Yuliana Hernandez MD CHEMISTRY ORDERABLES Performing Organization Address City/[facility]/ZIP [place] [address] Prothrombin Time (02/12/2019 10:30 AM EDT) P athologist Signature PT 10.9 9.4 - 12.5 [facility] LABORATORY INR 1.0 [facility] Comment: An INR <2.0 indicates [...] Hernandez MD HEMATOLOGY ORDERABLES Performing Organization Address City/[facility]/ZIP [place] [address] documented in this encounter Visit Diagnoses Diagnosis Hepatitis C virus infection without hepa tic coma, unspecified chronicity documented in this encounter Care Teams Adolescent Counselor Relationship Specialty Start Date End Date Hai Lopez DO PCP - General Family Medicine 10/10/[address] [place] [address] documented as of this encounter
--- OUTSIDE RECORDS SUMMARY | 2022-05-05 00:46 | XMS_ITS | Encounter Summary ---
:1960 Author Organization [facility] [place] [address] Care Team Providers Name Role Phone Hai Gallegos MD Primary Care Provider [phone] Reason for Visit Auth/Cert Specialty Diagnoses / Procedures Referred By Contact Refer red To Contact Diagnoses Sialadenitis sialadenitis Procedures PRO EXCISION SUBMAXILLARY GLAND EXCISION SUBMANDIBULAR (SUBMAXILLARY) GLAND-GARY (WRVU 6.14) Referral ID Status Reason Start Date Expiration Date Visits Requ ested Visits Authorized [id number] 1 1 Encounter Details Date Type Department Care Team Description 02/23/2017 Anesthesia Event Main Operating Room Santos Morrison MD [address] [place] [address] [phone] Anesthesia Record Procedure Summary Procedure Name Responsible Anesthesia Start Anesthesia Stop Anesthesiologist Time Time EXCISION SUBMANDIBULAR Santos Manuel MD 02/23/17 0837 02/23/17 1039 (SUBMAXILLARY) GLAND-GARY (WRVU 6.14) (Left Face) Events Date Time Event Comment 02/23/2017 0837 AN Verify 0837 Start 0837 An Start Data 0843 An Induction 0848 An Intubation 0852 Anesthesia Ready 0919 Procedure Start 0928 Break/Relief In Laurence A Leandro, LITIGATION PARTNER 0946 Break/Relief Out 1026 Procedure Stop 1029 [...] Ansary, 1715 by comments) (Submaxillary); SHAKIRA Ambrose , [facility] 03/06/22 (LDA cleanup utility RA#[id number]); 1715 (LDA cleanup utility RA#[id number]) PIV 02/23/17; 0728; metacarpal 02/23/17 0728 by 02/06 02/22 1145 by vein (top of hand), left; Carmen Basurto R N Gutermuth, Ellen M, RN [id number] catheter system; 20 gauge; distraction, intradermal injection, tolerated well; 0; 02/23/17; 1145 ETT Mask Ventilation: Difficult 02/23/17 0848 by Toy hernández, 02/23/17 1029 by Neli (3); ETT Type: Cuffed; ETT Niurka W, LITIGATION PARTNER Niurak W , LITIGATION PARTNER Size: 7 mm; Mac Blade: 3; Exchange: [...] Manuel MD - 02/23/2017 10:45 AM EDT [facility] [place] Anesthesiology Post-procedure Note Patient: Mary Beth Holman Procedure Summary Date Anesthesia Start Anesthesia Stop Room / Location 02/23/17 08 103[facility] MAIN OR Procedure Diagnosis Surgeon Responsible Provider EXCISION SUBMANDIBULAR (SUBMAXILLARY) GLAND-GARY (WRVU 6.14) (Left Face) Sialadenitis (sialadenitis) Salty Butler MD Toth, Adam R, MD All Anesthesia Providers: Anesthesiologist: Santos Manuel MD LITIGATION PARTNER: Niurka Moon CRNA Last (1hr) Vitals: BP 120/65 (02/23/17 1039) Temp Pulse Resp SpO2 97 % (02/23/17 1039) Patient Location: PACU/[facility] Level of Consciousness: Awake and Alert Pain [...] risks discussed with patient. Plan discussed with LITIGATION PARTNER. PAT Staff Note documented in this encounter Plan of Treatment Upcoming Encounters Date Type Specialty Care Team Description 08/28/2022 Laboratory Appointment Lab 08/28/2022 Appointment Radiology Yuliana Hernandez MD [facility] [address] [place], [place] [address] (Wo rk) 08/28/2022 Office Visit Gastroenterology Andrew Smith PA [facility] [address] [place], [place] [address] (Wo rk) documented as of [...] Routine documented in this encounter Care Teams Bottom Saw Operator Relationship Specialty Start Date End Date Hai Gallegos MD PCP - General 05/31/10 10/09/[address] [place] [address] documented as of this encounter
--- OUTSIDE RECORDS SUMMARY | 2022-05-05 00:46 | XMS_ITS | Encounter Summary ---
:1960 Author Organization [facility] [place] [address] Care Team Providers Name Role Phone Hai Gallegos MD Primary Care Provider [phone] Reason for Visit Reason Comments GI Problem Consultation (Routine) - Closed Specialty Diagnoses / Procedures Referred By Contact Refer red To Contact Gastroenterology Diagnoses portal hypertension Hai Lopez, [facility] [address] [place] [phone] Phone: Fax: Referral ID Status Reason Start Date Expiration Date Visits V isits Requested Authorized [id number] Closed Consult, 08/23/2017 08/23/2018 1 1 [facility] Encounter Details Date Type Department Care Team Description 09/28/2017 Office Visit Gastroenterology at [facility] Perla Hernandez, Diarrhea, [facility] [place] [address] [facility] [phone] Center [place] [address] Social History Tobacco Use Types Packs/Day Years [...] included. 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 Investigations were done that day which included [...] Perla Hernandez MD Hepatology and Gastroenterology [facility] ELYSIA Childs V: [phone] Copy: Hai Gallegos MD (Inactive) [address] [facility] [address] documented in this encounter Procedure Notes Perla Hernandez MD - 09/28/2017 9:00 AM EDTAssociated Order(s): FIBROSCAN Procedure(s): FIBROSCAN Pre-Procedure Diagnose(s): Diarrhea, unspecified type [facility] Liver Fibrosis Assessment Report Indication: Elevated liver enzymes Performed by: Perla Hernandez MD Procedure: Vibration Controlled Transient Elastography (VCTE) or Fibroscan [place] Protocol: Patient's identity, procedure and site were [...] Lab 08/28/2022 Appointment Radiology Perla Hernandez MD [facility] [place] [address] ([place] courtney) 08/28/2022 Office Visit Gastroenterology Andrew Smith PA [facility] [place] [address] ([place] courtney) documented as of this encounter Procedures Procedure Name Priority Date/Time Associated Diagnosis Comme nts [id number] Routine 09/28/2017 12:13 PM Diarrhea, unspecified Results for this EDT type procedure are i n the results section. documented in this encounter Results Calprotectin, Stool (10/09/2017 12:00 PM EDT) P athologist Signature Calprotectin 44.3 <=50.0 PERLA PATEL (Normal) [facility] LABORATORY Comment: Test Performed by: [facility] [address] [address] Specimen Anatomical Collection Method Collection Time Receive d Time (Source) Location / / Volume Laterality Stool specimen 10/09/2017 12:00 8 8:57 (specimen) PM EDT AM EDT Resulting Agency Comment Spec In Lab Perla Hernandez MD CHEMISTRY ORDERABLES Performing Organization Address [facility]/ZIP [facility] [place] [address] C. Difficile Screen (10/09/2017 12:00 PM EDT) Analysis Performed At Patho logist Time Signature C Diff Screen Negative Negative [facility] LABORATORY Comment: C. diff ??Negative [...] - GENERAL ORDER PRAFUL Performing Organization Address City/[facility] [place] [address] [id number] (09/28/2017 12:13 PM EDT) Narrative Perla Hernandez MD - 09/28/2017 12:13 P M EDT Perla Hernandez MD ? 09/28/2017 12:13 PM [facility] Liver Fibrosis Asses sment Report Indication: ?? Elevated liver enzymes Performed by: ??Perla Hernandez MD Procedure: Vibration Controlled Transien t Elastography (VCTE) or Fibroscan [place] Protocol: Patient's identity, procedure and site were [...] type documented in this encounter Care Teams Pilot Manager Relationship Specialty Start Date End Date Hai Gallegos MD PCP - General 05/31/10 10/09/[address] [place] [address] documented as of this encounter
--- OUTSIDE RECORDS SUMMARY | 2022-05-05 00:47 | XMS_ITS | Encounter Summary ---
:1960 Author Organization [facility] [place] [address] Care Team Providers Name Role Phone Hai Gallegos MD Primary Care Provider [phone] Reason for Visit Reason Onset Date Comments Other 05/20/2015 Encounter Details Date Type Department Care Team Description 05/20/2015 Telephone Spine Center at [facility] [place]il[place] [address] Social History Tobacco Use Types Packs/Day Years Used Date Current Every Day Smoker Cigarettes 0.5 Smokeless Tobacco: Never Used Sex Assigned at Date Recorded Not on file documented as of this encounter Miscellaneous Notes Telephone Encounter - Emiliana Botello MSW - 05/20/2015 11:49 AM EST OFFICE OF CARE MANAGEMENT CCM Follow up call to case filler supervisor riprap placing Anna Mike at [phone]/ fax [phone] regardingMs. Holman's claim# [id number] and her plan to send out updated medicals and order for Functional Anabaptist Program to [facility] re[facility] that had previously put Ms. Holman at [facility]. Requested return call and response regarding that plan so as to discuss Ms. Crows treatment options with her. Update topatient and healthcare team pending return call. Monitor for [facility] approval. documented in this encounter Plan of Treatment Upcoming Encounters Date Type Specialty Care Team Description 08/28/2022 Laboratory Appointment Lab 08/28/2022 Appointment Radiology Yuliana Hernandez MD [facility] [address] [place] [address] (Wo rk) 08/28/2022 Office Visit Gastroenterology Andrew Smith PA [facility] [address] [place] [address] (Wo rk) documented as of this encounter Visit Diagnoses Not on filedocumented in this encounter Care Teams Independent Freight Agent Relationship Specialty Start Date End Date Hai Gallegos MD PCP - General 05/31/10 10/09/17 [address] [place] [address] documented as of this encounter
--- OUTSIDE RECORDS SUMMARY | 2022-05-05 00:47 | XMS_ITS | Encounter Summary ---
:1960 [place] [address] Care Team Providers Name Role Phone Hai Gallegos MD Primary Care Provider [phone] Encounter Details Date Type Department Care Team Description 07/30/2015 Office Visit Functional Zoroastrian Medardo Lyles, Chronic low back pain Program at [facility] [address] [place] [address] [place] [address] Social History Tobacco Use Types Packs/Day Years Used Date Current Every Day Smoker Cigarettes 0.5 Smokeless Tobacco: Never Used Sex Assigned at Date Recorded Not on file documented as of this encounter Progress Notes Medardo Lyles MD - 07/30/2015 8:08 AM [place] [address] Functional Zoroastrian Program Discharge Summary Ms. Mary Beth Holman [id number] 07/30/2015 Cande Yarbrough, am compiling the information for Dr. Lyles to discuss and review with the patient. Ms. Holman attended the Functional Zoroastrian Program (FRP) from July 13 to July 30, 2015. The FRP combines progressive physical training, pain and disability education, behavioral medicine and vocational/activity planning geared toward achieving personal functional goals. I met with Ms. Holman for 30 minutes today to discuss her discharge and progress in the Functional Zoroastrian Program as written in this note. We discussed medical progress, imaging, surgical decision making, current pain and functional status, compared that status to personal recovery goals and established the plan ofcare accordingly as below. Ms. Holman attended the FR for 11 of 14 days and participation [...] Up? 3 Month Follow-Up? Repetitive Floor to Waist?115? 25/105? Repetitive Waist to Shoulder? 10/114? 20/119? 1-Time Maximum? 15? [address]? Carry -2 Handed 50 ft? 15? Work Demand Level? Sedentary- Light? Light ? Functional Goals: Functional Goals at Beginning of FRP? Current Status of Goals? 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 Has been looking for sales receptionist/traveling clerk type positions through online job search sites?? [...] readiness date: 08/02/15 i) with restriction: See [place] Worker's Compensation Form 3. Follow-up a) Primary Care: HAI GALLEGOS MD b) Spine Center i) Post-program date: 08/04/2015. Please plan to arrive at [facility] for your appointment with Cande Wilson PTA, at 10:00. ii) 4-week follow-up date: 09/09/2015. Please plan to arrive at the Spine Center () for your appointment with Juan Carlos Foley PT, at 1:00. iii) MD/CHEMICAL ANALYTICAL SAMPLER visit date: 09/09/2015 at 2:00 v) Please plan for a 1-year survey follow-up. c) Medication Management: HAI GALLEGOS MD I, Medardo Lyles, have reviewed the above compiled information and agree with its accuracy. I spentthe the entire 25 minutes with the patient discussing progress, goals and plans as documented in this note. cc: Mary Beth Holman [address] [place] [phone] HAI GALLEGOS MD [address] [place] [address] Ms. Susan Rhodes VRS Disability Management Anna Garciasussy claim# [id number] fax [phone] regarding documented in this encounter Plan of Treatment Upcoming Encounters Date Type Specialty Care Team Description 08/28/2022 Laboratory Appointment Lab 08/28/2022 Appointment Radiology Yuliana Hernandez MD [facility] [address] [place] [address] (Wo rk) 08/28/2022 Office Visit Gastroenterology Andrew Smith PA [facility] [address] [place] [address] (Wo rk) documented as of this encounter Visit Diagnoses Diagnosis Chronic low back pain Lumbago documented in this encounter Care Teams Concrete Grinder Operator Relationship Specialty Start Date End Date Hai Gallegos MD PCP - General 05/31/10 10/09/[address] [place] [address] documented as of this encounter
--- OUTSIDE RECORDS SUMMARY | 2022-05-05 00:47 | XMS_ITS | Encounter Summary ---
:1960 Author Organization [facility] [place] [address] Care Team Providers Name Role Phone Hai Gallegos MD Primary Care Provider [phone] Reason for Visit Reason Comments Low Back Pain Encounter Details Date Type Department Care Team Description 07/19/2015 Office Visit Functional Druze Skylar Funes C onic low back pain Program at [facility] OT [address] [place] [address] Social History Tobacco Use Types Packs/Day Years Used Date Current Every Day Smoker Cigarettes 0.5 Smokeless Tobacco: Never Used Sex Assigned at Date Recorded Not on file documented as of this encounter Progress Notes Skylar Funes, HODAN - 07/19/2015 7:52 AM EST [facility] Occupational Therapy Note [facility] Day 5 Protocol Subjective: Ms. Holman returns today for a scheduled follow up appointment with [facility]. She reports feeling better after being out sick on Sunday. She also reports that the straight leg lifting and pegboard are still difficult for her and that her right foot is still bothering her. Objective: Refer to [facility] protocol for details and explanation of each [...] provided by both an Occupational Therapist and Tap Dancer, BRONWYN Ortega documented in this encounter Plan of Treatment Upcoming Encounters Date Type Specialty Care Team Description 08/28/2022 Laboratory Appointment Lab 08/28/2022 Appointment Radiology Yuliana Hernandez MD [facility] [address] [place] [address] (Wo rk) 08/28/2022 Office Visit Gastroenterology Andrew Smith PA [facility] [address] [place] [address] (Wo rk) documented as of this encounter Visit Diagnoses Diagnosis Chronic low back pain Lumbago documented in this encounter Care Teams Primary Special Educator Relationship Specialty Start Date End Date Hai Gallegos MD PCP - General 05/31/10 10/09/17 4 [facility] [address] documented as of this encounter
--- OUTSIDE RECORDS SUMMARY | 2022-05-05 00:47 | XMS_ITS | Encounter Summary ---
:1960 Author Organization [facility] [place] [address] Care Team Providers Name Role Phone Hai Gallegos MD Primary Care Provider [phone] Reason for Visit Reason Onset Date Comments Other 07/29/2015 Encounter Details Date Type Department Care Team Description 07/29/2015 Telephone [facility] [place]il[place] [address] Social History Tobacco Use Types Packs/Day Years Used Date Current Every Day Smoker Cigarettes 0.5 Smokeless Tobacco: Never Used Sex Assigned at Date Recorded Not on file documented as of this encounter Miscellaneous Notes Telephone Encounter - Emiliana Botello MSW - 07/29/2015 12:09 PM EST OFFICE OF CARE MANAGEMENT [facility] Exchanged messages and updates with Susan Rhodes [employer] Disability Management ph regarding confirmation if she was re activated for voc by folder machine 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 Holman if she is the contact. Update to patient and healthcare team. documented in this encounter Plan of Treatment Upcoming Encounters Date Type Specialty Care Team Description 08/28/2022 Laboratory Appointment Lab 08/28/2022 Appointment Radiology Yuliana Hernandez MD [facility] [address] [place], [place] [address] (Wo rk) 08/28/2022 Office Visit Gastroenterology Andrew Smith PA [facility] [address] [place], [place] [address] (Wo rk) documented as of this encounter Visit Diagnoses Not on filedocumented in this encounter Care Teams Devops Architect Relationship Specialty Start Date End Date Hai Gallegos MD PCP - General 05/31/10 10/09/[address] [place] [address] documented as of this encounter
--- OUTSIDE RECORDS SUMMARY | 2022-05-05 00:47 | XMS_ITS | Encounter Summary ---
:1960 Author Organization [facility] [place] [address] Care Team Providers Name Role Phone Hai Gallegos MD Primary Care Provider [phone] Reason for Visit Reason Onset Date Comments Other 05/07/2015 Encounter Details Date Type Department Care Team Description 05/07/2015 Telephone [facility] [place]il[place] [address] Social History Tobacco Use Types Packs/Day Years Used Date Current Every Day Smoker Cigarettes 0.5 Smokeless Tobacco: Never Used Sex Assigned at Date Recorded Not on file documented as of this encounter Miscellaneous Notes Telephone Encounter - Emiliana Botello MSW - 05/07/2015 2:42 PM EDT OFFICE OF CARE MANAGEMENT CCM Follow up call to wojciech Jacques [phone]/ fax [phone] claim# [id number] noting that though pre authorization doesn't require response until 05/12, Ms. Holman could start Functional Mormon Program SunMay.11 and requesting response to gauge inclination to proceed. Update to patient and heatlhcare team pending response. documented in this encounter Plan of Treatment Upcoming Encounters Date Type Specialty Care Team Description 08/28/2022 Laboratory Appointment Lab 08/28/2022 Appointment Radiology Yuliana Hernandez MD [facility] [address] [place], [place] [address] (Wo rk) 08/28/2022 Office Visit Gastroenterology Andrew Smith PA [facility] [address] [place], [place] [address] (Wo rk) documented as of this encounter Visit Diagnoses Not on filedocumented in this encounter Care Teams Director Financial Services Relationship Specialty Start Date End Date Hai Gallegos MD PCP - General 05/31/10 10/09/[address] [place] [address] documented as of this encounter
--- OUTSIDE RECORDS SUMMARY | 2022-05-05 00:47 | XMS_ITS | Encounter Summary ---
:1960 Author Organization [facility] [place] [address] Care Team Providers Name Role Phone Hai Gallegos MD Primary Care Provider [phone] Encounter Details Date Type Department Care Team Description 07/27/2015 Office Visit Spine Center at Medardo Lyles Chroni c low back pain [place] [facility] [address] [place] [facility] [address] [place] [address] [phone] Social History Tobacco Use Types Packs/Day Years Used Date Current Every Day Smoker Cigarettes 0.5 Smokeless Tobacco: Never Used Sex Assigned at Date Recorded Not on file documented as of this encounter Progress Notes Medardo Lyles MD - 07/27/2015 4:05 PM EST 07/27/2015 [id number] Mary Beth Holman CC: Back pain FUNCTIONAL [...] Lab 08/28/2022 Appointment Radiology Yuliana Hernandez MD [facility] [address] [place] [address] (Wo rk) 08/28/2022 Office Visit Gastroenterology Andrew Smith PA [facility] [address] [place] [address] (Wo rk) documented as of this encounter Visit Diagnoses Diagnosis Chronic low back pain Lumbago documented in this encounter Care Teams Licensing Registration Examiner Relationship Specialty Start Date End Date Hai Gallegos MD PCP - General 05/31/10 10/09/17 [address] [facility] [place] [address] documented as of this encounter
--- OUTSIDE RECORDS SUMMARY | 2022-05-05 00:47 | XMS_ITS | Encounter Summary ---
:1960 Author Organization [facility] [address] Care Team Providers Name Role Phone Hai Gallegos MD Primary Care Provider [phone] Reason for Visit Reason Comments Back Pain Left Leg Pain Encounter Details Date Type Department Care Team Description 07/13/2015 Office Visit Functional Hinduism Eleanor Lancaster, Chronic back pain Program at [facility] OBSTETRICS/GYNECOLOGY NURSE [address] [place] [address] PAIN MEDICINE [place] [id number] (Wo rk) Social History Tobacco Use Types Packs/Day Years Used Date Current Every Day Smoker Cigarettes 0.5 Smokeless Tobacco: Never Used Sex Assigned at Date Recorded Not on file documented as of this encounter Progress Notes Eleanor Lancaster, OBSTETRICS/GYNECOLOGY NURSE - 07/13/2015 2:02 PM EST Chief complaint requiring rehabilitation: low back and left lower extremity pain with sensory loss and weakness in the left lower extremity. This is the goals and health barriers visit and note for admission to the Functional Hinduism Program. 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 Walk at least 1 mile for daily exercise. Ride horseback. Daily Living: Shovel snow. Wash dishes, vacuum, and sweep floors without requiring breaks. With these goals in mind, the following review of systems was positive as noted: Chest pain: no Shortness of breath: no Palpitations: no Chronic cough: yes Hypertension: yes Cigarettes: 40 py history Joint pains or injuries: bilateral knee pain and recent left ankle sprain with X rays revealing NO FRACTURE by report Any physical problem that might worsen with exercise: no Depression: no Anxiety/PTSD: no Sleep problems: Difficulty initiating and sustaining sleep. Counseling history: Nitesh Rose. She has a longstanding intermittent relationship with him. Alcohol: no Caffiene: no PHYSICAL EXAM Pulse: 84 BP: 126/82 Resp/min: 24 Lungs: clear Heart: no Murmur no Click Abdomen: no Mass no Tenderness 3 prior c sections no hernia. Neuro-screen reveals: normal exam. Slight swelling and pain in dorsum and lateral left ankle. Can weight bear, palpable pulse. Negative draw sign. Normal ankle ROM. HEALTH BARRIERS TO PERSONAL GOALS with PLAN for EACH: #1 sleep interruption. We discussed sleep hygiene. She will try some changes to her routine including using white noise this week. #2 Bilateral knee pain . She has arthritis. Mr Sheppard aware #3 Left foot pain. Sprain. Discussed ice, compression and elevation,. Mr Sheppard aware. This was a counseling-based visit for 30 of the 45 minute encounter, discussing the goals, barrier problems and plans as outlined above. documented in this encounter Plan of Treatment Upcoming Encounters Date Type Specialty Care Team Description 08/28/2022 Laboratory Appointment Lab 08/28/2022 Appointment Radiology Yuliana Hernandez MD [facility] er [place]IA [place] 0375 (Wo roz) 08/28/2022 Office Visit Gastroenterology Andrew Smith PA [facility] [address] [place] [address] (Wo roz) documented as of this encounter Visit Diagnoses Diagnosis Chronic back pain Backache, unspecified documented in this encounter Care Teams Radio Division Officer Relationship Specialty Start Date End Date Hai Gallegos MD PCP - General 05/31/10 10/09/17 4 [place] [address] documented as of this encounter
--- OUTSIDE RECORDS SUMMARY | 2022-05-05 00:47 | XMS_ITS | Encounter Summary ---
:1960 Author Organization [facility] [place] [address] Care Team Providers Name Role Phone Hai Gallegos MD Primary Care Provider Reason for Visit Reason Onset Date Comments Other 04/06/2015 Encounter Details Date Type Department Care Team Description 04/06/2015 Telephone Spine Center at [facility] [place] [address] Social History Tobacco Use Types Packs/Day Years Used Date Current Every Day Smoker Cigarettes 0.5 Smokeless Tobacco: Never Used Sex Assigned at Date Recorded Not on file documented as of this encounter Miscellaneous Notes Telephone Encounter - Emiliana Botello MSW - 04/19/2015 1:04 PM EDT OFFICE OF CARE MANAGEMENT [facility] Met with Ms. Holman as she is recommended and medically cleared for the Functional Church Program. Ms. Holman would be pleased to proceed with [id number] FRP. This [place] a [place] claim (Aimee Pierson [facility] [phone]/ fax [phone] claim# [id number]). She's had minimal interaction with Ms. Pierson. She lives over [place] from [facility] and would benefit from local lodging. PLAN: [...] MD [facility] [address] [place] [place] 0375 (Wo rk) 08/28/2022 Office Visit Gastroenterology Andrew Smith PA [facility] [address] [place] 0375 (Wo rk) documented as of this encounter Visit Diagnoses Not on filedocumented in this encounter Care Teams Automotive Customer Experience Advisor Relationship Specialty Start Date End Date Hai Gallegos MD PCP - General 05/31/10 10/09/[address] [place] [address] documented as of this encounter
--- OUTSIDE RECORDS SUMMARY | 2022-05-05 00:47 | XMS_ITS | Encounter Summary ---
:1960 Author Organization [facility] [place] [address] Care Team Providers Name Role Phone Hai Gallegos MD Primary Care Provider Reason for Visit Reason Comments Low Back Pain Encounter Details Date Type Department Care Team Description 07/21/2015 Office Visit Functional Quaker Skylar Funes C [facility] low back pain Program at [facility] OT [address] [place] [address] Social History Tobacco Use Types Packs/Day Years Used Date Current Every Day Smoker Cigarettes 0.5 Smokeless Tobacco: Never Used Sex Assigned at Date Recorded Not on file documented as of this encounter Progress Notes Skylar Funes OT - 07/21/2015 7:59 AM EST [facility] Occupational Therapy Note [facility] Protocol Subjective: Ms. Holman is attending day [...] to write her resume. Objective: Refer to [facility] protocol for details and explanation of each [...] application and interview process. Also reviewed the [place] with [place] Act[place] it pertains to job application. Ms. Holman participated actively in progression of function. Assessment: Ms. Holman is progressing according to [facility] protocol and her functional goals as noted in initial OT evaluation report on Day 1. Objective testing today confirms she has made some gains thus far in terms of her physical capacities. Plan: Return for follow up with [facility] per protocol. Length of Treatment: Ms. Holman participated in program activities from 8:00 a.m. through 2:30 p.m.today. A total of 45 minutes were spent during that time to implement individualized occupational therapy strategies. Care was provided by both an Occupational Therapist and Teacher Education Director, BRONWYN Ortega documented in this encounter Plan [...] Lumbago documented in this encounter Care Teams Circle Beveler Relationship Specialty Start Date End Date Hai Gallegos MD PCP - General 05/31/10 10/09/17 [address] [place] [address] documented as of this encounter
--- OUTSIDE RECORDS SUMMARY | 2022-05-05 00:47 | XMS_ITS | Encounter Summary ---
:1960 [place] [address] Care Team Providers Name Role Phone Hai Gallegos MD Primary Care Provider [phone] Reason for Visit Auth/Cert Specialty Diagnoses / Procedures Referred By Contact Refer red To Contact Diagnoses Sialadenitis sialadenitis Procedures PRO EXCISION SUBMAXILLARY GLAND EXCISION SUBMANDIBULAR (SUBMAXILLARY) GLAND-GARY (WRVU 6.14) Referral ID Status Reason Start Date Expiration Date Visits Requ ested Visits Authorized [id number] 1 1 Encounter Details Date Type Department Care Team Description 02/23/2017 Hospital Encounter Same Day Program at [facility] ph, [facility] DR Vega [place] [address] [place] [address] [phone] (Wo rk) Social History Tobacco Use Types [...] discussed. Should you have questions, please call [phone] during business hours. After hours, call [phone] and ask to speak with the ENT resident power distribution engineer. documented in this encounter Medications at Time [...] Butler MD - 02/23/2017 10:05 AM EDT [facility] Operative Note Patient Name: Mary Beth Holman : [id number] MR#: [id number] Case Date: 02/23/2017 Surgeon: Surgeon(s) and Role: * Salty Butler MD - Primary * Berry Montez PA Preoperative diagnosis: sialadenitis Postoperative diagnosis: sialadenitis Procedure(s) (LRB): EXCISION SUBMANDIBULAR (SUBMAXILLARY) GLAND-GARY (WRVU 6.14) (Left) : GOMEZ/BARBI nursing home assistant surgeon (no qualified resident available) Anesthesia: [...] was marked and injected with 1% xylocaine [id number] epinephrine. Incision made through skin, fat and [...] Radiology Yuliana Hernandez MD [facility] [address] [place] [address] (Wo rk) 08/28/2022 Office Visit Gastroenterology Andrew Smith PA [facility] [address] [place] [address] (Wo rk) documented as of [...] Signature POC Glucose 154 65 - 199 [facility] mg/dL [facility] Comment: Supplemental ranges: <140 mg/dL before meals <180 mg/dL all other times of the day Specimen Anatomical Collection Method Collection Time Receive d Time (Source) Location / / Volume Laterality Blood specimen 02/23/2017 10:41 7 (specimen) AM EDT 10:41 AM EDT Salty Butler MD POINT OF CARE TEST ORDERABLE S Performing Organization Address City/State/[place] [address] Surgical Pathology Report (02/23/2017 10:01 AM EDT) Component Value Ref Test Analysis Performed At [facility] Range Method Time Signature Surgical [id number] ? Location: [facility]; [facility] [[email or web address]]; A [facility] Report The signing pathologist has (i) [...] Address City/State/ZIP Code Phon e Number [address] Specimen to Pathology (surgical or derm) (02/23/2017 10:01 AM EDT) Specimen Anatomical Collection Method Collection Time Receive d Time (Source) Location / / Volume Laterality AP Specimen 02/23/2017 10:01 02/23/2017 AM EDT 10:01 AM EDT Narrative [facility] - 02/23/2017 10:01 AM EDT Specimen requisition ordered. ??Separate Pathology report to follow Salty Butler MD PATHOLOGY/CYTOLOGY ORDERABLE S Performing Organization Address City/State/ZIP Code Phon e Number [address] POCT Glucose (02/23/2017 7:24 AM EDT) athologist Signature POC Glucose 147 65 - 199 [facility] mg/dL [facility] Comment: Supplemental ranges: <140 mg/dL before meals <180 mg/dL all other times of the day Specimen Anatomical Collection Method Collection Time Receive d Time (Source) Location / / Volume Laterality Blood specimen 02/23/2017 7:24 AM 017 7:24 (specimen) EDT AM EDT Salty Butler MD POINT OF CARE TEST ORDERABLE S Performing Organization Address City/State/ZIP Code Phon e Number [address] documented in this encounter [...] (GELFOAM) sponge (CANCELED) 0958 (Given - Provider: Satly Butler MD) ONCE PRN, Starting Sun02/23/17 at [...] override documented in this encounter Care Teams Boot Lace Cutter Machine Relationship Specialty Start Date End Date Hai Gallegos MD PCP - General 05/31/10 10/09/[address] [place] [address] documented as of this encounter
--- OUTSIDE RECORDS SUMMARY | 2022-05-05 00:47 | XMS_ITS | Encounter Summary ---
:1960 Author Organization [facility] [address] Care Team Providers Name Role Phone Hai Gallegos MD Primary Care Provider [phone] Reason for Visit Reason Onset Date Comments Other 06/14/2015 Encounter Details Date Type Department Care Team Description 06/14/2015 Telephone Spine Center at [facility] Emiliana [place] [address] Social History Tobacco Use Types Packs/Day Years Used Date Current Every Day Smoker Cigarettes 0.5 Smokeless Tobacco: Never Used Sex Assigned at Date Recorded Not on file documented as of this encounter Miscellaneous Notes Telephone Encounter - Emiliana Botello MSW - 06/15/2015 3:10 PM EST OFFICE OF CARE MANAGEMENT [facility] Met with Ms. Holman in Spine Center clinic to confirm planned July 13-2015 Functional Restorationism attendance. Coverage in principle for program and local lodging confirmed by health insurance adjuster Anna Mike at ph [phone]/ fax [phone] regarding Ms. Holman's claim# [id number]. Ms. Holman reports she definitely has coverage for care of her mother (granddaughter) will have a car when she is local. Discussed need to pack own lunch and snacks and perhaps request refrigerator in her room as [address] facility where [facility] is does not have a cafeteria. No further concerns identified. PLAN:1) July 13-2015 FRP documented in this encounter Plan of Treatment Upcoming Encounters Date Type Specialty Care Team Description 08/28/2022 Laboratory Appointment Lab 08/28/2022 Appointment Radiology Yuliana Hernandez MD [facility] [address] [place] [address] (Wo rk) 08/28/2022 Office Visit Gastroenterology Andrew Smith PA [facility] [address] [place] [address] (Wo rk) documented as of this encounter Visit Diagnoses Not on filedocumented in this encounter Care Teams Medical Secretary Receptionist Relationship Specialty Start Date End Date Hai Gallegos MD PCP - General 05/31/10 10/09/[address] [place] [address] documented as of this encounter
--- OUTSIDE RECORDS SUMMARY | 2022-05-05 00:47 | XMS_ITS | Encounter Summary ---
:1960 Author Organization [facility] [place] [address] Care Team Providers Name Role Phone Hai Gallegos MD Primary Care Provider [phone] Encounter Details Date Type Department Care Team Description 07/23/2015 Office Visit Spine Center at [facility] Chroni c low back pain Nomi REBOLLAR [facility] [address] [place], [place] [facility] [address] [place] [address] [phone] Social History Tobacco Use Types Packs/Day Years Used Date Current Every Day Smoker Cigarettes 0.5 Smokeless Tobacco: Never Used Sex Assigned at Date Recorded Not on file documented as of this encounter Progress Notes Medardo Lyles MD - 07/23/2015 4:00 PM EST 07/23/2015 [id number] Mary Beth Holman FUNCTIONAL RSTORATION PROGRAM REHABILITATION TRAINING LECTURE Presenter: Medardo Lyles MD or Eleanor Lancaster APRN CC: Back pain ACUTE PAIN MANAGEMENT LECTURE. This one hour lecture begins with a review of the ACUTE PAIN WORKSHEETS completed by the patients on the day of admission to the [facility]. There is an in depth discussion of [...] Hernandez MD [facility] [address] [place], [place] [address] (Wo rk) 08/28/2022 Office Visit Gastroenterology Andrew Smith PA [facility] [address] [place], [place] [address] (Wo rk) documented as of this encounter Visit Diagnoses Diagnosis Chronic low back pain Lumbago documented in this encounter Care Teams School Plant Consultant Relationship Specialty Start Date End Date Hai Gallegos MD PCP - General 05/31/10 10/09/[address] [place] [address] documented as of this encounter
--- OUTSIDE RECORDS SUMMARY | 2022-05-05 00:47 | XMS_ITS | Encounter Summary ---
:1960 Author Organization [facility] [place] [address] Care Team Providers Name Role Phone Hai Gallegos MD Primary Care Provider [phone] Reason for Visit Reason Onset Date Comments Other 07/12/2015 Encounter Details Date Type Department Care Team Description 07/12/2015 Telephone Spine Center at [facility] [place]iliana [place] [address] Social History Tobacco Use Types Packs/Day Years Used Date Current Every Day Smoker Cigarettes 0.5 Smokeless Tobacco: Never Used Sex Assigned at Date Recorded Not on file documented as of this encounter Miscellaneous Notes Telephone Encounter - Emiliana Botello MSW - 07/12/2015 11:46 AM EST OFFICE OF CARE MANAGEMENT [facility] Telephone call from Ms. Holman confirming arrival time, [facility] location for FRP tomorrow. Also notes, two [...] activities without crutches. Will be staying at [facility]. No further concerns. Update to team regarding foot issue. documented in this encounter Plan of Treatment Upcoming Encounters Date Type Specialty Care Team Description 08/28/2022 Laboratory Appointment Lab 08/28/2022 Appointment Radiology Yuliana [facility] MD [facility] [address] [place] [address] (Wo rk) 08/28/2022 Office Visit Gastroenterology Andrew Smith PA [facility] er [address] [place] 0[address] (Wo rk) documented as of this encounter Visit Diagnoses Not on filedocumented in this encounter Care Teams Salesperson Corsets Relationship Specialty Start Date End Date Hai Gallegos MD PCP - General 05/31/10 10/09/[address] [place] [address] documented as of this encounter
--- OUTSIDE RECORDS SUMMARY | 2022-05-05 00:47 | XMS_ITS | Encounter Summary ---
:1960 Author Organization [facility] [place] [address] Care Team Providers Name Role Phone Hai Gallegos MD Primary Care Provider [phone] Reason for Visit Reason Comments Low Back Pain Encounter Details Date Type Department Care Team Description 07/15/2015 Office Visit Functional Buddhism Skylar Funes C onic low back pain Program at [facility] OT [address] [place] [address] Social History Tobacco Use Types Packs/Day Years Used Date Current Every Day Smoker Cigarettes 0.5 Smokeless Tobacco: Never Used Sex Assigned at Date Recorded Not on file documented as of this encounter Progress Notes Skylar Funes OT - 07/15/2015 7:48 AM EST [facility] Occupational Therapy Note [facility] Day 3 Protocol Subjective: Ms. Holman returns today for a scheduled follow up appointment with [facility]. She reports that the evening stretching exercises did not seem to help. She reported having some difficulty with the straight-leg crate lifting today, but that she would get it done. Objective: Refer to [facility] protocol for details and explanation of [...] provided by both an Occupational Therapist and Test Driller, BRONWYN Ortega documented in this encounter Plan of Treatment Upcoming Encounters Date Type Specialty Care Team Description 08/28/2022 Laboratory Appointment Lab 08/28/2022 Appointment Radiology Yuliana Hernandez MD [facility] [address] [place] [address] (Wo rk) 08/28/2022 Office Visit Gastroenterology Andrew Smtih PA [facility] [address] [place] [address] (Wo rk) documented as of this encounter Visit Diagnoses Diagnosis Chronic low back pain Lumbago documented in this encounter Care Teams Emt P Relationship Specialty Start Date End Date Hai Gallegos MD PCP - General 05/31/10 10/09/17 4 [facility] [place] [address] documented as of this encounter
--- OUTSIDE RECORDS SUMMARY | 2022-05-05 00:47 | XMS_ITS | Encounter Summary ---
:1960 Author Organization [facility] [place] [address] Care Team Providers Name Role Phone Hai Gallegos MD Primary Care Provider [phone] Reason for Visit Reason Comments Chronic Back Pain Encounter Details Date Type Department Care Team Description 08/04/2015 Office Visit Functional Presybeterian Cande Dent, Chronic back pain; Program at [facility] Mechanical low back pain [address] [place] [address] Social History Tobacco Use Types Packs/Day Years Used Date Current Every Day Smoker Cigarettes 0.5 Smokeless Tobacco: Never Used Sex Assigned at Date Recorded Not on file documented as of this encounter Progress Notes Cande Wilson, STARCH MANGLE TENDER - 08/04/2015 10:43 AM EST [facility] Follow-up Gym Visit Subjective: Mary Beth reports she has lost 15# since beginning of the program and is feeling great . She has established a routine at home including the [facility] workout DVD, a friend's exercise equipment andexercise ball and has a group of friends that are exercising with her. Objective: Treatment Received: [facility] gym Date 08/04/15 Treadmill 2.0 mph/4% incline x 20' (prev. 15') Stretching: FIS, EIS, Hamstrings Wtjig-wl-jjcwr st. leg lift 22.5# Tcwmy-cs-ujyyoaqv lift 17.5# Squat lift 30# x 5 [...] 08/28/2022 Appointment Radiology Yuliana Hernandez MD [facility] [address] [place] [address] (Wo rk) 08/28/2022 Office Visit Gastroenterology Andrew Smith PA [facility] [address] [place] [address] (Wo rk) documented as of this encounter Visit Diagnoses Diagnosis Chronic back pain Backache, unspecified Mechanical low back pain Lumbago documented in this encounter Care Teams Layaway Clerk Relationship Specialty Start Date End Date Hai Gallegos MD PCP - General 05/31/10 10/09/17 714 [place] [address] documented as of this encounter
--- OUTSIDE RECORDS SUMMARY | 2022-05-05 00:47 | XMS_ITS | Encounter Summary ---
:1960 Author Organization [facility] [place] [address] Care Team Providers Name Role Phone Hai Gallegos MD Primary Care Provider [phone] Encounter Details Date Type Department Care Team Description 01/15/2017 Telephone [facility]ol[facility]ology at [facility] [place] [address] [facility] [phone] OTOLARYNGOLOGY [place], [place] [address] (Wo rk) Social History Tobacco [...] 15, 2017 4:09 PM To: Ariel Roberson <[email or web address]>; Natasha Pineda <[email or web address]> Subject: 02/02 OR Unlike my other [...] for the inconvenience. Salty Butler MD FACS conveyor system operator - Otolaryngology Chief, Division of Otolaryngology - Head & Neck Surgery [address] [address] (o)/[phone] (f) [facility] Telephone Encounter - Natasha Pineda - 01/15/2017 [...] Hernandez MD [facility] [address] [place], [place] [address] (Wo rk) 08/28/2022 Office Visit Gastroenterology Andrew Smith PA [facility] [address] [place], [place] [address] (Wo rk) documented as of this encounter Visit Diagnoses Not on filedocumented in this encounter Care Teams Route Delivery Driver Relationship Specialty Start Date End Date Hai Gallegos MD PCP - General 05/31/10 10/09/[address] [place] [address] documented as of this encounter
--- OUTSIDE RECORDS SUMMARY | 2022-05-05 00:47 | XMS_ITS | Encounter Summary ---
:1960 Author Organization [facility] [address] Care Team Providers Name Role Phone Hai Gallegos MD Primary Care Provider [phone] Encounter Details Date Type Department Care Team Description 07/22/2015 Office Visit [facility] Chroni c low back pain Nomi REBOLLAR [facility] [address] [place], [place] [facility] [address] [place] [address] [phone] Social History Tobacco Use Types Packs/Day Years Used Date Current Every Day Smoker Cigarettes 0.5 Smokeless Tobacco: Never Used Sex Assigned at Date Recorded Not on file documented as of this encounter Progress Notes Medardo Lyles MD - 07/22/2015 4:11 PM EST 07/22/2015 [id number] Mary Beth Holman FUNCTIONAL DRUZE PROGRAM REHABILITATION TRAINING LECTURE CC: Back pain Presenter: Medardo Lyles MD or CHRISTIAN Walsh PAIN, STRESS AND THE RELAXATION RESPONSE This one-hour session began with a review of states of mind ranging from coma to anxiety, with emphasis on the life events that generate stress. Personal experiences that generate stress were discussedalong with their physical and emotional responses. The relationships between pain and stress were reviewed. Strategies for blocking the stress reaction included reframing and relaxation techniques. Essential features of various relaxation techniques were discussed: quiet, mental cue, distraction extinction, comfortable posture. Importance of finding personal best practices through experience was reviewed. Time Spent: 1 hr. documented in this encounter Plan of Treatment Upcoming Encounters Date Type Specialty Care Team Description 08/28/2022 Laboratory Appointment Lab 08/28/2022 Appointment Radiology Yuliana Hernandez MD [facility] [address] [place] [address] (Wo rk) 08/28/2022 Office Visit Gastroenterology Andrew Smith PA [facility] [address] [place], [place] [address] (Wo rk) documented as of this encounter Visit Diagnoses Diagnosis Chronic low back pain Lumbago documented in this encounter Care Teams Stull Installer Relationship Specialty Start Date End Date Hai Gallegos MD PCP - General 05/31/10 10/09/[address] [place] [address] documented as of this encounter
--- OUTSIDE RECORDS SUMMARY | 2022-05-05 00:47 | XMS_ITS | Encounter Summary ---
:1960 Author Organization [facility] [place] [address] Care Team Providers Name Role Phone Hai Gallegos MD Primary Care Provider [phone] Reason for Visit Reason Comments Back Pain Encounter Details Date Type Department Care Team Description 06/14/2015 Office Visit [facility] at [facility] Carlos Foley, Chronic low back pain [place] PT [facility] [address] [place], [place] [facility] [address] [place] [address] Social History Tobacco Use Types Packs/Day Years [...] bend standing 10 (Right = Left Side [place]) Repeated movement testing During, After Pre-test pain [...] recovery goals and is looking forward to [facility]. Plan: Initial self care trial centered around rotation in flexion lying knees left x 10 repetitions four sessions per day, walking twice daily starting at 5 and progressing toward 3 week goal of 15 minutes per session. Knows to discontinue any movement or activity that causes true worsening or peripheralization of symptoms. Will follow up for day 1 testing in the July [facility], then outline additional training and treatment goals. Length of visit: 45 minutes spent in consult with Ms. Holman, testing then outlining specific exercise strategies accordingly. documented in this encounter Plan of Treatment Upcoming Encounters Date Type Specialty Care Team Description 08/28/2022 Laboratory Appointment Lab 08/28/2022 Appointment Radiology Yuliana Hernandez MD [facility] [place] [address] (Wo roz) 08/28/2022 Office Visit Gastroenterology Andrew Smith PA [facility] [place] [address] (Wo roz) documented as of this encounter Visit Diagnoses Diagnosis Chronic low back pain Lumbago documented in this encounter Care Teams Software Licensing Executive Relationship Specialty Start Date End Date Hai Gallegos MD PCP - General 05/31/10 10/09/[address] [place] [address] documented as of this encounter
--- OUTSIDE RECORDS SUMMARY | 2022-05-05 00:47 | XMS_ITS | Encounter Summary ---
:1960 Author Organization [facility] [place] [address] Care Team Providers Name Role Phone Hai Gallegos MD Primary Care Provider [phone] Reason for Visit Diagnostic Test (Routine) - Closed Specialty Diagnoses / Procedures Referred By Contact Refer red To Contact Orthopaedics Diagnoses Chronic back pain Eleanor Lancaster APRN [facility] PAIN MEDICINE [address] [id number] [place] [address] Referral ID Status Reason Start Date Expiration Date Visits V isits Requested Authorized [id number] Closed Consult, 04/06/2015 04/05/2016 1 1 Test & Treat Encounter Details Date Type Department Care Team Description 07/15/2015 Office Visit [facility] Chroni c low back pain Nomi REBOLLAR [facility] [place], [place] SP[facility] [address] [place] [address] [phone] Social History Tobacco Use Types Packs/Day Years Used Date Current Every Day Smoker Cigarettes 0.5 Smokeless Tobacco: Never Used Sex Assigned at Date Recorded Not on file documented as of this encounter Progress Notes Medardo Lyles MD - 07/15/2015 4:48 PM EST FUNCTIONAL GNOSTICIST PROGRAM REHABILTIATION TRAINING LECTURE Chief complaint requiring rehabilitation: back pain Title: ? Pain & Function? Presenter: Medardo Lyles MD This one hour lecture began with interactive exercises to demonstrate the difficulties in assessing and understanding another person???s pain. Then the question of activity limitation and prescription was reviewed in terms of personal pain experience and expectations, functional goals and priorities, m edical expertise. The learning model of reacting to pain by limiting activity was reviewed leading to a discussion of the development of safe training methods that are gradually progressive and goal- and quota-based rather than symptom- reactive. Importance of maintaining physical gains after rehabilitation by committing to a more active lifestyle was stressed. Lecture time: 1 hr documented in this encounter Plan of Treatment Upcoming Encounters Date Type Specialty Care Team Description 08/28/2022 Laboratory Appointment Lab 08/28/2022 Appointment Radiology Yuliana Hernandez MD [facility] [address] [place] [place] [address] (Wo rk) 08/28/2022 Office Visit Gastroenterology Andrew Smith PA [facility] [address] [place] [place] [address] (Wo rk) documented as of this encounter Visit Diagnoses Diagnosis Chronic low back pain Lumbago documented in this encounter Care Teams Adult Basic Education Instructor Relationship Specialty Start Date End Date Hai Gallegos MD PCP - General 05/31/10 10/09/17 [address] [place] [address] documented as of this encounter
--- OUTSIDE RECORDS SUMMARY | 2022-05-05 00:47 | XMS_ITS | Encounter Summary ---
:1960 Author Organization [facility] [place] [address] Care Team Providers Name Role Phone Hai Gallegos MD Primary Care Provider [phone] Reason for Visit Reason Onset Date Comments Patient Not Seen 07/16/2015 Encounter Details Date Type Department Care Team Description 07/16/2015 Office Visit [facility] DH PAT IENT NOT SEEN Nomi REBOLLAR [facility] [place] [address] SPINE [facility]ENTER [phone] [place], [place] [address] (Wo rk) Social History Tobacco [...] Hernandez MD [facility] [address] [place], [place] [address] (Wo rk) 08/28/2022 Office Visit Gastroenterology Andrew Smith PA [facility] [address] [place], [place] [address] (Wo rk) documented as of this encounter Visit Diagnoses Diagnosis DH PATIENT NOT SEEN documented in this encounter Care Teams System Support Developer Relationship Specialty Start Date End Date Hai Gallegos MD PCP - General 05/31/10 10/09/[address] [place] [address] documented as of this encounter
--- OUTSIDE RECORDS SUMMARY | 2022-05-05 00:47 | XMS_ITS | Encounter Summary ---
:1960 Author Organization [facility] [place] [address] Care Team Providers Name Role Phone Hai Gallegos MD Primary Care Provider [phone] Reason for Visit Reason Comments Back Pain Encounter Details Date Type Department Care Team Description 09/09/2015 Office Visit [facility] at Juan Carlos Foley, Chronic low back pain [place] PT [facility] [place], [place] [facility] [address] [place] [address] Social History Tobacco Use Types Packs/Day Years Used Date Current Every Day Smoker Cigarettes 0.5 Smokeless Tobacco: Never Used Sex Assigned at Date Recorded Not on file documented as of this encounter Progress Notes Juan Carlos Foley, PT - 09/09/2015 1:00 PM EST [facility] FUNCTIONAL ZOROASTRIAN PROGRAM FRP 4 WEEK FOLLOW-UP Dear Mary [...] involves contact with the public, such as sales correspondence clerk or human resources receptionist; ? Old job is no longer available. [...] Cc: Mary Beth Holman [phone] [facility] [id number] HAI GALLEGOS MD [address] [place] [phone] documented in this encounter Plan of Treatment Upcoming Encounters Date Type Specialty Care Team Description 08/28/2022 Laboratory Appointment Lab 08/28/2022 Appointment Radiology Yuliana Hernandez MD [facility] [address] [place] [address] (Wo rk) 08/28/2022 Office Visit Gastroenterology Andrew Smith PA [facility] [address] [place] [place] [address] (Wo rk) documented as of this encounter Visit Diagnoses Diagnosis Chronic low back pain Lumbago documented in this encounter Care Teams Termite Renewal Inspector Relationship Specialty Start Date End Date Hai Gallegos MD PCP - General 05/31/10 10/09/[address] [place] [address] documented as of this encounter
--- OUTSIDE RECORDS SUMMARY | 2022-05-05 00:47 | XMS_ITS | Encounter Summary ---
:1960 Author Organization [facility] [place] [address] Care Team Providers Name Role Phone Teresita Gallegos MD Primary Care Provider [phone] Reason for Visit Reason Comments Chronic Back Pain Encounter Details Date Type Department Care Team Description 07/14/2015 Office Visit Functional Hinduism Medardo Lyles, Chronic low back pain; Program at [facility] Marian white MD Chronic back pain [address] [place] [address] [place], [place] [address] Social History Tobacco Use Types Packs/Day Years Used Date Current Every Day Smoker Cigarettes 0.5 Smokeless Tobacco: Never Used Sex Assigned at Date Recorded Not on file documented as of this encounter Progress Notes Medardo Lyles MD - 07/14/2015 7:36 AM EST [facility] Spine Center: Functional Hinduism Program Admission Staff Meeting 07/14/2015 I met with Ms. Holman for the entire 30 minutes today to discuss her admission and progress in the Functional Hinduism Program as written in this note. We [...] Floor to Waist Repetitive Waist to Shoulder 1-Time Maximum 15 Carry -2 Handed 50 ft 15 Work Demand Level Sedentary- Light Functional Goals: Functional Goals at Beginning of FRP Current Status of Goals Vocational: Return to work in some type of position that involves contact with the public, such as attorney law clerk or bilingual receptionist; Recreational: Be able to bend and lift [...] clean house in one day. PLAN: Functional Hinduism Program. Cc: Mary Beth Holman [phone] [facility] [phone] TERESITA GALLEGOS MD [address] [place] [address] Anna Harman claim# [id number] fax [phone] FUNCTIONAL EPISCOPAL PROGRAM (FRP) PROTOCOL DESCRIPTION DAY 1 TESTING [...] Touch Pad Survey * Medical Consult with MD/SMELTER CHARGER STRETCH, STRENGTH, & AEROBICS 1 hour with 2 [facility] staff members PT/OT/HVAC SHEET METAL INSTALLER HELPER Low impact aerobic conditioning and strengthening class that includes floor aerobics, step aerobics,yoga, pilates, central african ball training, strengthening and stretching. This is the first class of every day so that patients begin the day with a warm-up of low-impact and low intensity conditioning. The goal of the class is to introduce and encourage different types of cardiovascular conditioning and strengthening. STRENGTHENING & CARDIOVASCULAR EXERCISE 1 hour with 2-3 [facility] staff members PT/HVAC SHEET METAL INSTALLER HELPER The physical therapy staff instructs, modifies, and [...] activity to be completed in 1-4 sessions. [facility] patients seldom have the conditioning to complete 15 minutes of one activity at a sufficient intensity to provoke a cardiovascular training response. Therefore, [facility] utilizes multiple sessions to reach cardiovascular [...] by patients during their time away from [facility] (weekends, off days)and ultimately for after [...] patient. FUNCTIONAL CONDITIONING 1 hour with 3 [facility] staff members OT/PT/HVAC SHEET METAL INSTALLER HELPER Work Conditioning: Involves progressive and graded activities [...] group therapy sessions. MEDICAL APPOINTMENT (Meeting with MD/SMELTER CHARGER) 25 minute individual clinic visit with program directors to discuss program and individuals status, goals, and plan. MEETING WITH MD AND STAFF (Staffing Meeting) 15-25 minute individual clinic visit with public health program manager and medical staff to discuss individuals status, progress, goals, and plan. WALK & STRETCH 1 hour with 1-2 [facility] staff members PT/OT/HVAC SHEET METAL INSTALLER HELPER Patients will walk for 30 minutes on [...] lectures are 1 hour and led by [facility] staff MD/DAISY/BARBI/PT/OT Lectures are designed to educate, motivate, and empower the patients to self manage their pain and accompanying medical co-morbidities. FUNCTIONAL EPISCOPAL This one hour lecture began with a [...] diagnosis was discussed. The development of Functional Hinduism was reviewed, including the critical role of [...] common types of disability; Workers Compensation, Short term/Residential Disability, Social Security Disability, Tort/Liability, Biomass Plant Manager [place], and Medicaid. During the course [...] faced by patients as they end Functional Hinduism and come to plateau. Patients who are [...] on the day of admission to the [facility]. There is an in depth discussion [...] 30 minutes with 2 FRP staff members HVAC SHEET METAL INSTALLER HELPER/OT/PT * Ball games are utilized to encouraged to encourage spontaneous or quick movements. Games played for 15 minutes. The goal of unguarded activity is to increase cardiovascular fitness, strength, endurance and flexibility and to encourages spontaneous movements. FUNCTIONAL EPISCOPAL PROGRAM (FRP) DAILY PROTOCOL OVERVIEW: [facility] consists of 14 days of interdisciplinary treatment and patients are approximately in the clinic each day from 8 am to 3 pm. Individual meeting times with PT, OT, and Care Management occurat multiple points during the FRP Functional Hinduism Week 1 Protocol Day 1 Day 1 Testing (4 hours) Orientation (1 hour) Group Testing (30 minutes) MD/SMELTER CHARGER evaluation (45 Minutes) Functional Hinduism Week 1 Protocol Day 2 Stretch, Strengthening and Aerobics Class (1 hour) Strengthening and Cardiovascular Exercise (1 hour) Functional Conditioning (2hours) Meeting with MD (25 minutes) Walk and Stretch Class (1 hour) Relaxation Training and Unguarded Activity (1 hour) Functional Hinduism Week 1 Protocol Day 3 Stretch, Strengthening and Aerobics Class (1 hour) Strengthening and Cardiovascular Exercise (1 hour) Functional Conditioning (2hours) Relaxation (30 minutes) Walk and Stretch Class (1 hour) Functional Hinduism Lecture (1 hour) Functional Hinduism Week 1 Protocol Day 4 Stretch, Strengthening and Aerobics Class (1 hour) Strengthening and Cardiovascular Exercise (1 hour) Functional Conditioning (2hours) Walk and Stretch Class (1 hour) Relaxation (30 Minutes) Goal Setting Lecture (1 hour) Functional Hinduism Week 2 Protocol Day 5 Stretch, Strengthening and Aerobics Class (1 hour) Strengthening and Cardiovascular Exercise (1 hour) Functional Conditioning (2hours) Walk and Stretch Class (1 hour) Relaxation (30 Minutes) Anatomy, Imaging, Surgical Decision Making Lecture (1 hour) Functional Hinduism Week 2 Protocol Day 6 Stretch, Strengthening and Aerobics Class (1 hour) Strengthening and Cardiovascular Exercise (1 hour) Functional Conditioning (2 hours) Walk and Stretch Class (1 hour) Relaxation (30 Minutes) Workers Compensation Insurance Lecture (1 hour) Functional Hinduism Week 2 Protocol Day 7 Stretch, Strengthening and Aerobics Class (1 hour) [place] [employer] testing (1 hour) Strengthening and Cardiovascular Exercise (1 hour) Functional Conditioning (1hour) Relaxation (30 Minutes) Walk and Unguarded Activity (1 hour) Relaxation Lecture (1 hour) Functional Hinduism Week 2 Protocol Day 8 Stretch, Strengthening and Aerobics Class (1 hour) Strengthening and Cardiovascular Exercise (1 hour) Functional Conditioning (2 hours) Relaxation (30 minutes) Walk and Stretch Class (1 hour) Medications Lecture (1 hour) Functional Hinduism Week 2 Protocol Day 9 Stretch, Strengthening and Aerobics Class (1 hour) Strengthening and Cardiovascular Exercise (1 hour) Functional Conditioning (2 hours) Relaxation (30 minutes) Walk and unguarded activity (1 hour) Functional Hinduism Week 3 Protocol Day 10 Stretch, Strengthening and Aerobics Class (1 hour) Strengthening and Cardiovascular Exercise (1 hour) Functional Conditioning (2 hours) Relaxation ( 30 minutes) Walk and Stretch class (1 hour) Job Hunting lecture(1 hour) Functional Hinduism Week 3 Protocol Day 11 Stretch, strengthening and aerobics class (1 hour) Strengthening and Cardiovascular Exercise (1 hour) Functional Conditioning (2hours) Relaxation (30 Minutes) Walk and Stretch Class (1 hour) Acute Pain Management lecture (1 hour) Functional Hinduism Week 3 Protocol Day 12 Stretch, strengthening and aerobics class (1 hour) Strengthening and Cardiovascular Exercise (1 hour) Functional Conditioning (2hours) Walk and unguarded activity (1 hour) Relaxation (30 Minutes) Re-entry lecture (1 hour) Functional Hinduism Week 3 Protocol Day 13 Day 13 Testing (2 hours) Stretch, Strengthening, Aerobics class (1 hour) Strengthening and Cardiovascular Exercise (1 hour) Functional Conditioning (1 hour) Relaxation (30 minutes) Walk and Stretch Class (1 hour) Functional Hinduism Week 3 Protocol Day 14 Stretch, Strengthening and Aerobics Class (1 hour) Strengthening and Functional Conditioning (1hour) Program Evaluation (1 hour) Individual Meeting with MD/SMELTER CHARGER and staff (25 minutes) Graduation and Final D/C information (30 minutes) documented in this encounter Plan of Treatment Upcoming Encounters Date Type Specialty Care Team Description 08/28/2022 Laboratory Appointment Lab 08/28/2022 Appointment Radiology Yuliana Hernandez MD [facility] er [place] [address] (Wo roz) 08/28/2022 Office Visit Gastroenterology Andrew Smith PA [facility] er [address] [place] [place] [address] (Wo roz) documented as of this encounter Visit Diagnoses Diagnosis Chronic low back pain Lumbago Chronic back pain Backache, unspecified documented in this encounter Care Teams Social Science Teacher Relationship Specialty Start Date End Date Teresita Gallegos MD PCP - General 05/31/10 10/09/[address] [place] [address] documented as of this encounter
--- OUTSIDE RECORDS SUMMARY | 2022-05-05 00:47 | XMS_ITS | Encounter Summary ---
:1960 Author Organization [facility] [place] [address] Care Team Providers Name Role Phone Hai Gallegos MD Primary Care Provider [phone] Encounter Details Date Type Department Care Team Description 07/22/2015 Office Visit Functional Mosque Medardo Lyles, Chronic low back pain Program at [facility] [address] [place] [address] [place], [place] [address] Social History Tobacco Use Types Packs/Day Years Used Date Current Every Day Smoker Cigarettes 0.5 Smokeless Tobacco: Never Used Sex Assigned at Date Recorded Not on file documented as of this encounter Progress Notes Medardo Lyles MD - 07/22/2015 9:50 AM EST This is the goals and health barriers follow-up visit and note for continued participation in the [facility] Mos[facility] Program. We spent 25 minutes discussing functional [...] rehab program, need to connect with her case briefer for future planning within her capacities.Left ankle sprain reviewed: no current swelling, still has ATFL t ension pain. Strategies for exercise reviewed. documented in this encounter Plan of Treatment Upcoming Encounters Date Type Specialty Care Team Description 08/28/2022 Laboratory Appointment Lab 08/28/2022 Appointment Radiology Yuliana Hernandez MD [facility] [place] [address] (Wo rk) 08/28/2022 Office Visit Gastroenterology Andrew Smith PA [facility] [place] [address] (Wo rk) documented as of this encounter Visit Diagnoses Diagnosis Chronic low back pain Lumbago documented in this encounter Care Teams Merchandise Stocker Relationship Specialty Start Date End Date Hai Gallegos MD PCP - General 05/31/10 10/09/17 [address] [facility] [place] [address] documented as of this encounter
--- OUTSIDE RECORDS SUMMARY | 2022-05-05 00:47 | XMS_ITS | Encounter Summary ---
:1960 Author Organization [facility] [place] [address] Care Team Providers Name Role Phone Hai Gallegos MD Primary Care Provider [phone] Reason for Visit Reason Comments Low Back Pain Encounter Details Date Type Department Care Team Description 07/14/2015 Office Visit Functional Hindu Skylar Funes C hronic back pain Program at [facility] OT [address] [place] [address] Social History Tobacco Use Types Packs/Day Years Used Date Current Every Day Smoker Cigarettes 0.5 Smokeless Tobacco: Never Used Sex Assigned at Date Recorded Not on file documented as of this encounter Progress Notes Skylar Funes OT - 07/14/2015 12:29 PM EST [facility] Occupational Therapy Note [facility] Day 2 Protocol Subjective: Ms. Holman returns for Day 2 of the Functional Hindu Program. She reports new exercises and techniques will getting used to, particularly as some techniques here are different than the ones she's been using. Objective: Refer to [facility] protocol for additional explanation of program/occupational [...] provided by both an Occupational Therapist and Production Aide, BRONWYN Ortega documented in this encounter Plan of Treatment Upcoming Encounters Date Type Specialty Care Team Description 08/28/2022 Laboratory Appointment Lab 08/28/2022 Appointment Radiology Yuliana Hernandez MD [facility] [address] [place] [address] (Wo rk) 08/28/2022 Office Visit Gastroenterology Andrew Smith PA [facility] [address] [place] [place] [address] (Wo rk) documented as of this encounter Visit Diagnoses Diagnosis Chronic back pain Backache, unspecified documented in this encounter Care Teams Bar Tacker Sewing Machine Relationship Specialty Start Date End Date Hai Gallegos MD PCP - General 05/31/10 10/09/17 [address] [place] [address] documented as of this encounter
--- OUTSIDE RECORDS SUMMARY | 2022-05-05 00:47 | XMS_ITS | Encounter Summary ---
:1960 Author Organization [facility] [place] [address] Care Team Providers Name Role Phone Hai Gallegos MD Primary Care Provider [phone] Reason for Visit Reason Comments Back Pain Encounter Details Date Type Department Care Team Description 07/14/2015 Office Visit Functional Congregation Juan Carlos Foley, Chronic low back pain Program at [facility] PT [address] [place] [address] [place] [address] Social History Tobacco Use Types Packs/Day Years Used Date Current Every Day Smoker Cigarettes 0.5 Smokeless Tobacco: Never Used Sex Assigned at Date Recorded Not on file documented as of this encounter Progress Notes Juan Carlos Foley, PT - 07/14/2015 12:54 PM EST [facility] Physical Therapy Note [facility] Day 2 Protocol Subjective: Mary Beth returns today for a scheduled follow up appointment with [facility]; she reports continued left foot pain. Objective: Treatment Received: Refer to [facility] protocol for explanation of program/physical therapy details. 1. Therapeutic and Functional Exercise: See [facility] flow sheets for progression. Strengthening and conditioning designed according to personal functional recovery goals and [facility] protocol was: (x) Completed ( ) [...] both a physical therapist and physical therapist psychiatric technician assistant. Cande Wilson PTA documented in this encounter Plan of Treatment Upcoming Encounters Date Type Specialty Care Team Description 08/28/2022 Laboratory Appointment Lab 08/28/2022 Appointment Radiology Yuliana Hernandez MD [facility] [address] [place] [address] (Wo rk) 08/28/2022 Office Visit Gastroenterology Andrew Smith PA [facility] [address] [place] [address] (Wo rk) documented as of this encounter Visit Diagnoses Diagnosis Chronic low back pain Lumbago documented in this encounter Care Teams Mill House Supervisor Relationship Specialty Start Date End Date Hai Gallegos MD PCP - General 05/31/10 10/09/17 [address] [place] [address] documented as of this encounter
--- OUTSIDE RECORDS SUMMARY | 2022-05-05 00:47 | XMS_ITS | Encounter Summary ---
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 [address] Phone: Fax: Referral ID Status Reason Start Date Expiration Date Visits Requ ested Visits Authorized [id number] Closed 12/19/2016 12/19/2017 1 1 Encounter Details Date Type Department Care Team Description 01/04/2017 Office Visit Otolaryngology at [facility] Carrie, Sialadenitis; [facility] Salty Nicole MD Sialolithiasis [place] [address] [place] [address] [place] [address] Social History Tobacco Use Types Packs/Day Years [...] Butler MD - 01/04/2017 8:20 AM EDT [facility] Otolaryngology - Head and Neck Surgery Lizandro Becerril PA-C 01/04/17 9:17 AM [place] [address] Office Patient Name: Mary Beth Holman Date [...] given Augmentin that treated it. Went to [place] who excision, but referred to [facility] due to comorbidities. Has smoking history of [...] gland excision. Consent obtained. Lizandro Becerril PA-C [place], [place] [address] Office 01/04/17 9:17 AM [facility] Otolaryngology Attending Note Patient seen and examined [...] Radiology Yuliana Hernandez MD [facility] [address] [place] [address] (Wo rk) 08/28/2022 Office Visit Gastroenterology Andrew Smith PA [facility] [address] [place] [address] (Wo rk) documented as of this encounter Procedures Procedure Name Priority Date/Time Associated Diagnosis Comme nts EXCISION Routine 01/04/2017 9:13 AM EDT Sialadenitis SUBMANDIBULAR(SUBMAXILL LAKSHMI) GLAND, GARY documented in this encounter Visit Diagnoses Diagnosis Sialadenitis Sialoadenitis Sialolithiasis of submandibular gland Sialolithiasis documented in this encounter Care Teams Shaft Repairer Relationship Specialty Start Date End Date Hai Gallegos MD PCP - General 05/31/10 10/09/17 [address] [place] [address] documented as of this encounter
--- OUTSIDE RECORDS SUMMARY | 2022-05-05 00:47 | XMS_ITS | Encounter Summary ---
:1960 Author Organization [facility] [place] [address] Care Team Providers Name Role Phone Hai Gallegos MD Primary Care Provider [phone] Reason for Visit Reason Comments Back Pain Encounter Details Date Type Department Care Team Description 07/22/2015 Office Visit Functional Yazdanism Juan Carlos Foley, Chronic low back pain Program at [facility] PT [address] [place] [address] [place] [address] Social History Tobacco Use Types Packs/Day Years Used Date Current Every Day Smoker Cigarettes 0.5 Smokeless Tobacco: Never Used Sex Assigned at Date Recorded Not on file documented as of this encounter Progress Notes Juan Carlos Foley, PT - 07/22/2015 8:15 AM EST [facility] Physical Therapy Note [facility] Day 8 Protocol Subjective: Mary Beth returns today for a scheduled follow up appointment with [facility]; she reports flexion lying and extension standing strategies are both helpful. Objective: Treatment Received: Refer to [facility] protocol for explanation of program/physical therapy details. 1. Therapeutic and Functional Exercise: See [facility] flow sheets for progression. Strengthening and conditioning designed according to personal functional recovery goals and [facility] protocol was: (x) Completed ( ) Not [...] both a physical therapist and physical therapist therapy assistant. Cande Wilson PTA documented in this encounter Plan of Treatment Upcoming Encounters Date Type Specialty Care Team Description 08/28/2022 Laboratory Appointment Lab 08/28/2022 Appointment Radiology Yuliana Hernandez MD [facility] [address] [place] [address] (Wo rk) 08/28/2022 Office Visit Gastroenterology Andrew Smith PA [facility] [address] [place] [address] (Wo rk) documented as of this encounter Visit Diagnoses Diagnosis Chronic low back pain Lumbago documented in this encounter Care Teams Handbook Writer Relationship Specialty Start Date End Date Hai Gallegos MD PCP - General 05/31/10 10/09/17 [address] [place] [address] documented as of this encounter
--- OUTSIDE RECORDS SUMMARY | 2022-05-05 00:47 | XMS_ITS | Encounter Summary ---
:1960 Author Organization [facility] [place] [address] Care Team Providers Name Role Phone Hai Gallegos MD Primary Care Provider [phone] Reason for Visit Reason Comments Back Pain Encounter Details Date Type Department Care Team Description 07/26/2015 Office Visit Functional Congregational Juan Carlos Foley, Chronic low back pain Program at [facility] PT [address] [place] [address] [place] [address] Social History Tobacco Use Types Packs/Day Years Used Date Current Every Day Smoker Cigarettes 0.5 Smokeless Tobacco: Never Used Sex Assigned at Date Recorded Not on file documented as of this encounter Progress Notes Juan Carlos Foley, PT - 07/26/2015 10:25 AM EST [facility] Physical Therapy Note [facility] Day 10 Protocol Subjective: Mary Beth returns today for a scheduled follow up appointment with [facility]; she reports her foothas been feeling better and she would like to try the stationary bike again today. Objective: Treatment Received: Refer to [facility] protocol for explanation of program/physical therapy details. 1. Therapeutic and Functional Exercise: See [facility] flow sheets for progression. Strengthening and conditioning designed according to personal functional recovery goals and [facility] protocol was: (x) Completed ( ) [...] both a physical therapist and physical therapist family practice physician assistant. Cande Wilson PTA documented in this encounter Plan of Treatment Upcoming Encounters Date Type Specialty Care Team Description 08/28/2022 Laboratory Appointment Lab 08/28/2022 Appointment Radiology Yuliana Hernandez MD [facility] [address] [place] [address] (Wo rk) 08/28/2022 Office Visit Gastroenterology Andrew Smith PA [facility] [address] [place] [address] (Wo rk) documented as of this encounter Visit Diagnoses Diagnosis Chronic low back pain Lumbago documented in this encounter Care Teams Dozer Operator Relationship Specialty Start Date End Date Hai Gallegos MD PCP - General 05/31/10 10/09/17 [address] [facility] [place] [address] documented as of this encounter
--- OUTSIDE RECORDS SUMMARY | 2022-05-05 00:47 | XMS_ITS | Encounter Summary ---
:1960 Author Organization [facility] [place] [address] Care Team Providers Name Role Phone Hai Gallegos MD Primary Care Provider [phone] Reason for Visit Reason Comments Low Back Pain Encounter Details Date Type Department Care Team Description 07/27/2015 Office Visit Functional Cheondoism Skylar Funes C onic low back pain Program at [facility] OT [address] [place] [address] Social History Tobacco Use Types Packs/Day Years Used Date Current Every Day Smoker Cigarettes 0.5 Smokeless Tobacco: Never Used Sex Assigned at Date Recorded Not on file documented as of this encounter Progress Notes Skylar Funes OT - 07/27/2015 7:43 AM EST [facility] Occupational Therapy Note [facility] Day 11 Protocol Subjective: Ms. Holman returns today for a scheduled follow up appointment with [facility]. She reports that since the program started, she has cut down her smoking from 1/2 pack per day to a pack every 3 days, and that she is looking forward to being able to take her dog for walks. Objective: Refer to [facility] protocol for details and explanation of each activity. Ms. Holman participated in the following activities: Functional Therapy: 1. AM Session of functional conditioning ( X ) Completed ( ) Not Completed 2. PM Session of functional conditioning ( X ) Completed ( ) Not Completed Ms. Holman completed a 1-mile indoor walk throughout hospital including 4 staircases. Individualized Treatment: Increased resistance levels of functional conditioning exercises accordingto personal recovery goals. Discussed today's resistance levels in the context of her overall functional goals and mapped out a plan for the remainder of this week. Please see goals in initial OT evaluation [...] provided by both an Occupational Therapist and Political Reporter, BRONWYN Ortega documented in this encounter Plan of Treatment Upcoming Encounters Date Type Specialty Care Team Description 08/28/2022 Laboratory Appointment Lab 08/28/2022 Appointment Radiology Yuliana Hernandez MD [facility] [address] [place] [address] (Wo rk) 08/28/2022 Office Visit Gastroenterology Andrew Smith PA [facility] [address] [place] [address] (Wo rk) documented as of this encounter Visit Diagnoses Diagnosis Chronic low back pain Lumbago documented in this encounter Care Teams Transformation Analyst Relationship Specialty Start Date End Date Hai Gallegos MD PCP - General 05/31/10 10/09/17 [address] [place] [address] documented as of this encounter
--- OUTSIDE RECORDS SUMMARY | 2022-05-05 00:47 | XMS_ITS | Encounter Summary ---
:1960 Author Organization [facility] [place] [address] Care Team Providers Name Role Phone Hai Gallegos MD Primary Care Provider [phone] Reason for Visit Reason Onset Date Comments Other 04/21/2015 Encounter Details Date Type Department Care Team Description 04/21/2015 Telephone [facility] [place]iliana [place] [address] Social History Tobacco Use Types Packs/Day Years Used Date Current Every Day Smoker Cigarettes 0.5 Smokeless Tobacco: Never Used Sex Assigned at Date Recorded Not on file documented as of this encounter Miscellaneous Notes Telephone Encounter - Emiliana Botello MSW - 04/21/2015 9:24 AM EDT OFFICE OF CARE MANAGEMENT [facility] Medical Providers Pre Authorization Request from Dr. Lyles faxed to Aimee Harman [phone] / fax [phone] who is out until 04/26 her covering rn case manager hospice Ralph Alexander is also mentioned so as to hopefully start the 14 day answer or PINKY clock before 04/26. Copy to medical record, copy held in [facility]. documented in this encounter Plan of Treatment Upcoming Encounters Date Type Specialty Care Team Description 08/28/2022 Laboratory Appointment Lab 08/28/2022 Appointment Radiology Yuliana Hernandez MD [facility] [address] [place], [place] [address] (Wo rk) 08/28/2022 Office Visit Gastroenterology Andrew Smith PA [facility] [address] [place], [place] [address] (Wo rk) documented as of this encounter Visit Diagnoses Not on filedocumented in this encounter Care Teams Pc Support Specialist Relationship Specialty Start Date End Date Hai Gallegos MD PCP - General 05/31/10 10/09/[address] [place] [place] [address] documented as of this encounter
--- OUTSIDE RECORDS SUMMARY | 2022-05-05 00:47 | XMS_ITS | Encounter Summary ---
:1960 Author Organization [facility] [place] [address] Care Team Providers Name Role Phone Hai Gallegos MD Primary Care Provider [phone] Reason for Visit Reason Comments Low Back Pain Encounter Details Date Type Department Care Team Description 07/29/2015 Office Visit Functional Restorationism Skylar Funes C onic low back pain Program at [facility] OT [address] [place] [address] Social History Tobacco Use Types Packs/Day Years Used Date Current Every Day Smoker Cigarettes 0.5 Smokeless Tobacco: Never Used Sex Assigned at Date Recorded Not on file documented as of this encounter Progress Notes Skylar Funes OT - 07/29/2015 8:01 AM EST [facility] Occupational Therapy Note [facility] Day 13 Protocol Subjective: Ms. Holman returns today for a scheduled follow up appointment with [facility]. She reports feeling stronger and wants to maintain her activity level to be able to control her diabetes as well ascontinuing to work to meet her functional goals. She She also reported that she would have to leave after the AM testing session due to an urgent family medical appointment. Objective: Refer to [facility] protocol for details and explanation of [...] Follow-Up?? 3 Month Follow-Up?? Repetitive Floor to Waist? /? Repetitive Waist to Shoulder? 1-Time Maximum?? 15? Carry -2 Handed 50 [...] involves contact with the public, such as convenience store clerk or clinic receptionist; ?? 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 through online job search [...] provided by both an Occupational Therapist and Video Manager, BRONWYN Ortega documented in this encounter Plan of Treatment Upcoming Encounters Date Type Specialty Care Team Description 08/28/2022 Laboratory Appointment Lab 08/28/2022 Appointment Radiology Yuliana [facility] MD [facility] [place] [address] (Wo rk) 08/28/2022 Office Visit Gastroenterology Andrew Smith PA [facility] [address] [place] [address] (Wo rk) documented as of this encounter Visit Diagnoses Diagnosis Chronic low back pain Lumbago documented in this encounter Care Teams Square Shear Operator Relationship Specialty Start Date End Date Hai Gallegos MD PCP - General 05/31/10 10/09/17 [address] [facility] [place] [address] documented as of this encounter
--- OUTSIDE RECORDS SUMMARY | 2022-05-05 00:47 | XMS_ITS | Encounter Summary ---
:1960 Author Organization [facility] [address] Care Team Providers Name Role Phone Hai Gallegos MD Primary Care Provider [phone] Reason for Visit Reason Comments Back Pain Encounter Details Date Type Department Care Team Description 07/27/2015 Office Visit Functional Mu-Ism Juan Carlos Foley, Chronic low back pain Program at [facility] PT [address] [place] [address] [place] [address] Social History Tobacco Use Types Packs/Day Years Used Date Current Every Day Smoker Cigarettes 0.5 Smokeless Tobacco: Never Used Sex Assigned at Date Recorded Not on file documented as of this encounter Progress Notes Juan Carlos Foley, PT - 07/27/2015 10:28 AM EST [facility] Physical Therapy Note [facility] Day 11 Protocol Subjective: Mary Beth returns today for a scheduled follow up appointment with [facility]; she reports having access to some exercise equipment and will work out with friends to stay consistent. Objective: Treatment Received: Refer to [facility] protocol for explanation of program/physical therapy details. 1. Therapeutic and Functional Exercise: See [facility] flow sheets for progression. Strengthening and conditioning designed according to personal functional recovery goals and [facility] protocol was: (x) Completed ( [...] and endurance exercises to continue for the long distance billing operator. Assessment: Mary Beth is progressing as planned [...] a physical therapist and physical therapist assistant service manager. Cande Wilson PTA documented in this encounter Plan of Treatment Upcoming Encounters Date Type Specialty Care Team Description 08/28/2022 Laboratory Appointment Lab 08/28/2022 Appointment Radiology Yuliana Hernandez MD [facility] [address] [place] [address] (Wo rk) 08/28/2022 Office Visit Gastroenterology Andrew Smith PA [facility] [address] [place] [address] (Wo rk) documented as of this encounter Visit Diagnoses Diagnosis Chronic low back pain Lumbago documented in this encounter Care Teams Litigation Docket Manager Relationship Specialty Start Date End Date Hai Gallegos MD PCP - General 05/31/10 10/09/17 [address] [facility] [place] [address] documented as of this encounter
--- OUTSIDE RECORDS SUMMARY | 2022-05-05 00:47 | XMS_ITS | Encounter Summary ---
:1960 Author Organization [facility] [place] [address] Care Team Providers Name Role Phone Hai Gallegos MD Primary Care Provider [phone] Reason for Visit Reason Comments Back Pain Encounter Details Date Type Department Care Team Description 07/13/2015 Office Visit Functional Pentecostalism Juan Carlos Foley, Chronic low back pain Program at [facility] PT [address] [place] [address] [place] [address] Social History Tobacco Use Types Packs/Day Years [...] PT - 07/13/2015 12:54 PM EST Functional Pentecostalism Program (Day 1) Physical Therapy Examination Personal Function 3 Month Goals 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 Recreational: Manage flower and vegetable [...] MD [facility] [address] [place] [address] (Wo rk) 08/28/2022 Office Visit Gastroenterology Andrew Smith PA [facility] [address] [place] [address] (Wo rk) documented as of this encounter Visit Diagnoses Diagnosis Chronic low back pain Lumbago documented in this encounter Care Teams Nutrition Counselor Relationship Specialty Start Date End Date Hai Gallegos MD PCP - General 05/31/10 10/09/17 [address] [place] [address] documented as of this encounter
--- OUTSIDE RECORDS SUMMARY | 2022-05-05 00:47 | XMS_ITS | Encounter Summary ---
:1960 Author Organization [facility] [place] [address] Care Team Providers Name Role Phone Hai Gallegos MD Primary Care Provider [phone] Reason for Visit Reason Comments Back Pain Encounter Details Date Type Department Care Team Description 07/21/2015 Office Visit Functional Advent Juan Carlos Foley, Chronic low back pain Program at [facility] PT [address] [place] [address] [place] [address] Social History Tobacco Use Types Packs/Day Years Used Date Current Every Day Smoker Cigarettes 0.5 Smokeless Tobacco: Never Used Sex Assigned at Date Recorded Not on file documented as of this encounter Progress Notes Juan Carlos Foley, PT - 07/21/2015 11:28 AM EST [facility] Physical Therapy Note [facility] Day 7 Protocol Subjective: Mary Beth returns today for a scheduled follow up appointment with [facility]; she reports still wanting to work toward her original goals. Objective: Treatment Received: Refer to [facility] protocol for explanation of program/physical therapy details. 1. Therapeutic and Functional Exercise: See [facility] flow sheets for progression. Strengthening and conditioning designed according to personal functional recovery goals and [facility] protocol was: (x) Completed ( ) [...] both a physical therapist and physical therapist physician assistant. Cande Wilson PTA documented in this encounter Plan of Treatment Upcoming Encounters Date Type Specialty Care Team Description 08/28/2022 Laboratory Appointment Lab 08/28/2022 Appointment Radiology Yuliana Hernandez MD [facility] [address] [place] [address] (Wo rk) 08/28/2022 Office Visit Gastroenterology Andrew Smith PA [facility] [address] [place] [address] (Wo rk) documented as of this encounter Visit Diagnoses Diagnosis Chronic low back pain Lumbago documented in this encounter Care Teams Drawer Waxer Relationship Specialty Start Date End Date Hai Gallegos MD PCP - General 05/31/10 10/09/17 [address] [facility] [place] [address] documented as of this encounter
--- OUTSIDE RECORDS SUMMARY | 2022-05-05 00:47 | XMS_ITS | Encounter Summary ---
:1960 Author Organization [facility] [place] [address] Care Team Providers Name Role Phone Hai Gallegos MD Primary Care Provider [phone] Reason for Visit Reason Comments Back Pain Encounter Details Date Type Department Care Team Description 07/29/2015 Office Visit Functional Orthodoxy Juan Carlos Foley, Chronic low back pain Program at [facility] PT [address] [place] [address] [place] [address] Social History Tobacco Use Types Packs/Day Years Used Date Current Every Day Smoker Cigarettes 0.5 Smokeless Tobacco: Never Used Sex Assigned at Date Recorded Not on file documented as of this encounter Progress Notes Juan Carlos Foley, PT - 07/29/2015 9:23 AM EST [facility] Physical Therapy Note [facility] Day 13 Protocol Subjective: Mary Beth returns today for a scheduled follow up appointment with [facility] and reports current functional tolerances as listed below. Treatment Received: Refer to [facility] protocol for explanation of program/physical therapy details. 1. Therapeutic and Functional Exercise: See [facility] flow sheets for progression. Strengthening and conditioning designed according to personal functional recovery goals and [facility] protocol was only partiallycompleted as Mary Beth [...] both a physical therapist and physical therapist diet assistant. Cande Wilson PTA documented in this encounter Plan of Treatment Upcoming Encounters Date Type Specialty Care Team Description 08/28/2022 Laboratory Appointment Lab 08/28/2022 Appointment Radiology Yuliana Hernandez MD [facility] [address] [place] [address] (Wo rk) 08/28/2022 Office Visit Gastroenterology Andrew Smith PA [facility] [address] [place], [place] [address] (Wo rk) documented as of this encounter Visit Diagnoses Diagnosis Chronic low back pain Lumbago documented in this encounter Care Teams Inpatient Nursing Aide Relationship Specialty Start Date End Date Hai Gallegos MD PCP - General 05/31/10 10/09/[address] [place] [address] documented as of this encounter
--- OUTSIDE RECORDS SUMMARY | 2022-05-05 00:47 | XMS_ITS | Encounter Summary ---
:1960 Author Organization [facility] [place] [address] Care Team Providers Name Role Phone Hai Gallegos MD Primary Care Provider [phone] Reason for Visit Reason Onset Date Comments Other 05/07/2015 Encounter Details Date Type Department Care Team Description 05/07/2015 Telephone Spine Center at [facility] [place]il[place] [address] Social History Tobacco Use Types Packs/Day Years Used Date Current Every Day Smoker Cigarettes 0.5 Smokeless Tobacco: Never Used Sex Assigned at Date Recorded Not on file documented as of this encounter Miscellaneous Notes Telephone Encounter - Emiliana Botello MSW - 05/07/2015 3:50 PM EDT OFFICE OF CARE MANAGEMENT CCM Follow up call to Ms. Holman to explore readiness for May. FRP. She will work on identifying care for her mother for possible May.11 dates and update us. She also suggests contacting her workers compensation adjuster Aimee Pierson's Radhika Jacques ph [phone]/ fax [phone] timo Castillo at ph [phone] timo regarding her claim# [id number] which I will do pending re contact by her to confirm care forher mother. Also discussed in the absence of approval she could stay at [facility] whichshe was amenable to. PLAN: 1) monitor for confirmation of coverage for mother's care 2) follow up w wc pending this and if not assist in coordinating [facility] if Ms. Holman is amenable. 3) she does not have legal representation for [place] claim (request for pre authorization must be responded to by 05/12) but does for wrongful termination documented in this encounter Plan of Treatment Upcoming Encounters Date Type Specialty Care Team Description 08/28/2022 Laboratory Appointment Lab 08/28/2022 Appointment Radiology Yuliana Hernandez MD [facility] [place] [address] [place] [address] (Wo rk) 08/28/2022 Office Visit Gastroenterology Andrew Smith PA [facility] [place] [address] (Wo rk) documented as of this encounter Visit Diagnoses Not on filedocumented in this encounter Care Teams Director Consumer Relationship Specialty Start Date End Date Hai Gallegos MD PCP - General 05/31/10 10/09/[address] [place] [address] documented as of this encounter
--- OUTSIDE RECORDS SUMMARY | 2022-05-05 00:47 | XMS_ITS | Encounter Summary ---
:1960 Author Organization [facility] [place] [address] Care Team Providers Name Role Phone Hai Gallegos MD Primary Care Provider [phone] Encounter Details Date Type Department Care Team Description 01/12/2017 Telephone Otolaryngology at [facility] [place] [address] Social History Tobacco Use Types Packs/Day [...] Hernandez MD [facility] [address] [place] [address] (Wo rk) 08/28/2022 Office Visit Gastroenterology Andrew Smith PA [facility] [address] [place] [place] [address] (Wo rk) documented as of this encounter Visit Diagnoses Not on filedocumented in this encounter Care Teams Intern Retail Relationship Specialty Start Date End Date Hai Gallegos MD PCP - General 05/31/10 10/09/[address] [place] [address] documented as of this encounter
--- OUTSIDE RECORDS SUMMARY | 2022-05-05 00:47 | XMS_ITS | Encounter Summary ---
:1960 Author Organization [facility] [place] [address] Care Team Providers Name Role Phone Hai Gallegos MD Primary Care Provider [phone] Reason for Visit Reason Onset Date Comments Other 05/31/2015 Encounter Details Date Type Department Care Team Description 05/31/2015 Telephone Spine Center at [facility] Emiliana [place] [address] Social History Tobacco Use Types Packs/Day [...] will need to defer until July Functional Buddhism program. I have wished her well and requested model maker apprentice to have her in for interim PT/OT visit to clarify goals and/or home program. In the meantime update to casualty insurance claim adjuster Anna Mike at [phone]/ fax [phone] regarding Ms. Holman's claim# [id number]. PLAN: 1) monitor for July 2015 FRP documented in this encounter Plan of Treatment Upcoming Encounters Date Type Specialty Care Team Description 08/28/2022 Laboratory Appointment Lab 08/28/2022 Appointment Radiology Yuliana Hernandez MD [facility] [address] [place] [address] (Wo rk) 08/28/2022 Office Visit Gastroenterology Andrew Smith PA [facility] [place] [address] (Wo rk) documented as of this encounter Visit Diagnoses Not on filedocumented in this encounter Care Teams Education Sales Consultant Relationship Specialty Start Date End Date Hai Gallegos MD PCP - General 05/31/10 10/09/[address] [place] [address] documented as of this encounter
--- OUTSIDE RECORDS SUMMARY | 2022-05-05 00:47 | XMS_ITS | Encounter Summary ---
:1960 Author Organization [place] [address] Care Team Providers Name Role Phone Hai Gallegos MD Primary Care Provider [phone] Reason for Referral Rehabilitation (Routine) - Closed Specialty Diagnoses / Procedures Referred By Contact Refer red To Contact Orthopaedics Diagnoses Chronic back pain Regulo Cantu MD [facility] [place] [address] [place] [address] Referral ID Status Reason Start Date Expiration Date Visits V isits Requested Authorized [id number] Closed Consult, 01/27/2015 01/27/2016 1 1 Test & Treat Reason for Visit Reason Onset Date Comments Medication Refill 01/27/2015 Encounter Details Date Type Department Care Team Description 01/27/2015 Refill Pain Regulo Cantu MD Chronic back pain [facility] [place] [address] PAIN CLINIC [phone] [place] [address] (Wo rk) Social History Tobacco Use Types Packs/Day Years Used Date Never Assessed Sex Assigned at Date Recorded Not on file documented as of this encounter Plan of Treatment Upcoming Encounters Date Type Specialty Care Team Description 08/28/2022 Laboratory Appointment Lab 08/28/2022 Appointment Radiology Yuliana Hernandez MD [facility] [place] [address] (Wo rk) 08/28/2022 Office Visit Gastroenterology Andrew Smith PA [facility] [address] [place], [place] [address] (Wo rk) Scheduled Referrals Name Type Priority Associated Order Schedule Diagnoses Referral to [facility] Out[facility] Referral Routine Chronic back pain Ordered: Assessment 01/27/2015 documented as of this encounter Visit Diagnoses Diagnosis Chronic back pain Backache, unspecified documented in this encounter Care Teams Balance Staff Staker Relationship Specialty Start Date End Date Hai Gallegos MD PCP - General 05/31/10 10/09/[address] [place] [address] documented as of this encounter
--- OUTSIDE RECORDS SUMMARY | 2022-05-05 00:47 | XMS_ITS | Encounter Summary ---
:1960 Author Organization [facility] [address] Care Team Providers Name Role Phone Hai Gallegos MD Primary Care Provider [phone] Encounter Details Date Type Department Care Team Description 07/21/2015 Office Visit Spine Center at [facility] Chroni c low back pain Nomi REBOLLAR [facility] [address] [place], [place] [facility] [facility] [address] [place] [address] [phone] Social History Tobacco Use Types Packs/Day Years Used Date Current Every Day Smoker Cigarettes 0.5 Smokeless Tobacco: Never Used Sex Assigned at Date Recorded Not on file documented as of this encounter Progress Notes Medardo Lyles MD - 07/21/2015 5:11 PM EST 07/21/2015 [id number] Mary Beth Holman CC: Back pain FUNCTIONAL EVANGEL[facility] PROGRAM REHABILTIATION TRAINING LECTURE Title: ???Medications?? Presenter: [...] MD [facility] [address] [place] [address] (Wo rk) 08/28/2022 Office Visit Gastroenterology Andrew Smith PA [facility] [address] [place] [address] (Wo rk) documented as of this encounter Visit Diagnoses Diagnosis Chronic low back pain Lumbago documented in this encounter Care Teams Payroll Coordinator Relationship Specialty Start Date End Date Hai Gallegos MD PCP - General 05/31/10 10/09/[address] [place] [address] documented as of this encounter
--- OUTSIDE RECORDS SUMMARY | 2022-05-05 00:47 | XMS_ITS | Encounter Summary ---
:1960 Author Organization [facility] [place] [address] Care Team Providers Name Role Phone Hai Gallegos MD Primary Care Provider [phone] Reason for Visit Reason Comments Low Back Pain Encounter Details Date Type Department Care Team Description 07/30/2015 Office Visit Functional Orthodox Skylar Funes C hronic low back pain Program at [facility] OT [address] [place] [address] Social History Tobacco Use Types Packs/Day Years Used Date Current Every Day Smoker Cigarettes 0.5 Smokeless Tobacco: Never Used Sex Assigned at Date Recorded Not on file documented as of this encounter Progress Notes Skylar Funes OT - 07/30/2015 7:42 AM EST [facility] Occupational Therapy Note [facility] Day 14 Protocol Subjective: Ms. Holman returns today for a scheduled follow up appointment with [facility]. She reports that she is intent on keeping up with a structured exercise program at home to continue progressing herphysical capacities. Overall, she reports feeling pleased with the functional gains she has made so far. Objective: Refer to [facility] protocol for details and explanation of each [...] 3 months 3. Ms. Holman will contact P staff if she experiences problems with her [...] MD [facility] [address] [place] [address] (Wo rk) 08/28/2022 Office Visit Gastroenterology Andrew Smith PA [facility] [address] [place] [place] [address] (Wo rk) documented as of this encounter Visit Diagnoses Diagnosis Chronic low back pain Lumbago documented in this encounter Care Teams Billet Driller Relationship Specialty Start Date End Date Hai Gallegos MD PCP - General 05/31/10 10/09/17 [address] [place] [address] documented as of this encounter
--- OUTSIDE RECORDS SUMMARY | 2022-05-05 00:47 | XMS_ITS | Encounter Summary ---
:1960 Author Organization [facility] [place] [address] Care Team Providers Name Role Phone Hai Gallegos MD Primary Care Provider [phone] Reason for Visit Reason Comments Low Back Pain Encounter Details Date Type Department Care Team Description 07/26/2015 Office Visit Functional Buddhism Skylar Funes C onic low back pain Program at [facility] OT [address] [place] [address] Social History Tobacco Use Types Packs/Day Years Used Date Current Every Day Smoker Cigarettes 0.5 Smokeless Tobacco: Never Used Sex Assigned at Date Recorded Not on file documented as of this encounter Progress Notes Skylar Funes, HODAN - 07/26/2015 9:06 AM EST [facility] Occupational Therapy Note [facility] Day 10 Protocol Subjective: Ms. Holamn returns today for a scheduled follow up appointment with [facility]. She reports that she was unable to complete her home lifting program over the weekend due to a family illness, however her back was feeling pretty good today. Objective: Refer to [facility] protocol for details and explanation of [...] by both an Occupational Therapist and Tap And Die Maker Technician, BRONWYN Ortega documented in this encounter Plan of Treatment Upcoming Encounters Date Type Specialty Care Team Description 08/28/2022 Laboratory Appointment Lab 08/28/2022 Appointment Radiology Yuliana Hernandez MD [facility] [address] [place] [address] (Wo rk) 08/28/2022 Office Visit Gastroenterology Andrew Smith PA [facility] [address] [place] [address] (Wo rk) documented as of this encounter Visit Diagnoses Diagnosis Chronic low back pain Lumbago documented in this encounter Care Teams Copper Miner Blasting Relationship Specialty Start Date End Date Hai Gallegos MD PCP - General 05/31/10 10/09/[address] [place] [address] documented as of this encounter
--- OUTSIDE RECORDS SUMMARY | 2022-05-05 00:47 | XMS_ITS | Encounter Summary ---
:1960 Author Organization [facility] [place] [address] Care Team Providers Name Role Phone Hai Gallegos MD Primary Care Provider [phone] Reason for Visit Reason Comments Back Pain Encounter Details Date Type Department Care Team Description 04/06/2015 Follow-Up Spine Center at [facility] Juan Carlos Foley, PT [facility] [place] [address] Chronic low back pain [facility] Regulo Cantu MD [facility] [place] [address] [place] [id number] Social History Tobacco Use Types Packs/Day Years Used Date Current Every Day Smoker Cigarettes 0.5 Smokeless Tobacco: Never Used Sex Assigned at Date Recorded Not on file documented as of this encounter Last Filed Vital Signs Vital Sign Reading Time Taken Comments Blood Pressure 135/83 04/06/2015 2:11 PM EDT Pulse 101 04/06/2015 2:11 PM EDT Temperature - - Respiratory Rate - - Oxygen Saturation - - Inhaled Oxygen Concentration - - Weight - - Height - - Body Mass Index - - documented in this encounter Progress Notes Juan Carlos Foley, PT - 04/06/2015 1:35 PM EDT GOALS AND PHYSICAL CAPACITIES EVALUATION The chief complaint requiring rehabilitation is low back and left lower extremity pain with sensory loss and weakness in the left lower extremity. Anatomic diagnoses have included lower back strain andsciatica. Prior treatments included injections, physical therapy, chiropractic, and medications. Further diagnostic testing is not planned. Additional medical procedures are not planned. Activity limiting health problems include history of bilateral knee pain, bilateral shoulder pain, left wrist cyst removal, left elbow tendon debridement procedures, diabetes, hypertension, vertigo,andasthma. 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 Walk at least 1 mile for daily exercise. Ride horseback. Daily Living: Shovel snow. Wash dishes, vacuum, and sweep floors without requiring breaks. PHYSICAL EVALUATION Gait: Slow pace, guarded. AROM (degrees): Lumbar Spine Flexion (0-90) 45 Extension (0-30) 15 SLR Right (0-90) 55 SLR Left (0-90) 45 SLR-Pelvic Motion [smallest SLR - (flex + ext)] 10 Endurance Testing: Modified Ramp Treadmill Test Minutes Completed 4 % Grade 10 Speed (mph) 2.1 MET/HR 5 / 140 Reason for Stop Point: Low back pain Functional Strength Testing: PILE Testing lbs/HR Floor To Waist 15 / 146 Waist to Shoulder 5 / 140 Reason for Stop Point: Low back pain During physical testing, participation level was consistent. Demand Levels of Functional Recovery Goals Current Capacity Limit / Physical Demand Level (PDL) Vocational: Light-Medium Recreational: Light-Medium Daily Living: Light Sedentary-Light The PDL listed above is based on today's physical performance screening tests. More comprehensive physical testing integrated with clinical findings would be required to derive an accurate work capacity. ASSESSMENT OF FUNCTIONAL TESTING: Based on today???s physical capacity findings Mary Beth Holman is a candidate for a multidisciplinaryintensive physical rehabilitation program with behavioral support. There are physical limitations ingait, range of motion, walking endurance, functional strength, and overall physical capacities that interfere with basic functional tasks and hinder quality of life. I believe that this can improve with functional rehabilitation. PLAN: Pending medical clearance, Mary Beth has been recommended for the upcoming Functional Tenriism Program (FRP) that includes 3-4 weeks of intensive PT/OT followed by a minimum of 6 months commitment to self care exercise for improving and maintaining physical capacities. Total time for testin minutes documented in this encounter Plan of Treatment Upcoming Encounters Date Type Specialty Care Team Description 08/28/2022 Laboratory Appointment Lab 08/28/2022 Appointment Radiology Yuliana Hernandez MD [facility] [address] [place], [place] [address] (Wo rk) 08/28/2022 Office Visit Gastroenterology Andrew Smith PA [facility] [address] [place] [address] (Wo rk) documented as of this encounter Visit Diagnoses Diagnosis Chronic low back pain Lumbago documented in this encounter Care Teams Organ Grinder Relationship Specialty Start Date End Date Hai Gallegos MD PCP - General 05/31/10 10/09/17 714 [place] [address] documented as of this encounter
--- OUTSIDE RECORDS SUMMARY | 2022-05-05 00:47 | XMS_ITS | Encounter Summary ---
:1960 Author Organization [facility] [place] [address] Care Team Providers Name Role Phone Hai Gallegos MD Primary Care Provider [phone] Reason for Visit Reason Onset Date Comments Other 07/07/2015 Encounter Details Date Type Department Care Team Description 07/07/2015 Telephone Spine Center at [facility] [place]il[place] [address] Social History Tobacco Use Types Packs/Day Years Used Date Current Every Day Smoker Cigarettes 0.5 Smokeless Tobacco: Never Used Sex Assigned at Date Recorded Not on file documented as of this encounter Miscellaneous Notes Telephone Encounter - Emiliana Botello MSW - 07/07/2015 12:59 PM EST OFFICE OF CARE MANAGEMENT CCM Update from extrusion press adjuster Anna Mike at ph [phone]/ fax [phone] that she has confirmed w Ms. Holman planned attendance will be direct booking lodging week by week at the [facility]. No job to return to. documented in this encounter Plan of Treatment Upcoming Encounters Date Type Specialty Care Team Description 08/28/2022 Laboratory Appointment Lab 08/28/2022 Appointment Radiology Yuliana Hernandez MD [facility] [address] [place] [address] (Wo rk) 08/28/2022 Office Visit Gastroenterology Andrew Smith PA [facility] [place], [place] [address] (Wo rk) documented as of this encounter Visit Diagnoses Not on filedocumented in this encounter Care Teams Cartography/Mapping Technician Relationship Specialty Start Date End Date Hai Gallegos MD PCP - General 05/31/10 10/09/[address] [place] [address] documented as of this encounter
--- OUTSIDE RECORDS SUMMARY | 2022-05-05 00:47 | XMS_ITS | Encounter Summary ---
:1960 Author Organization [place] [address] Care Team Providers Name Role Phone Hai Gallegos MD Primary Care Provider [phone] Reason for Referral Diagnostic Test (Routine) - Closed Specialty Diagnoses / Procedures Referred By Contact Refer red To Contact Orthopaedics Diagnoses Chronic back pain Eleanor Lancaster, BARBI [facility] 3d [facility] [place] [address] [place] [address] Referral ID Status Reason Start Date Expiration Date Visits V isits Requested Authorized [id number] Closed Consult, 04/06/2015 04/05/2016 1 1 Test & Treat Reason for Visit Reason Comments Low Back Pain Left Leg Pain Encounter Details Date Type Department Care Team Description 04/06/2015 Follow-Up Spine Center at [facility] non Eleanor Lancaster, Chronic back pain [facility] [place] [address] [facility] [phone] PAIN [place] [address] (Wo rk) Social History Tobacco Use Types [...] in this encounter Progress Notes Eleanor Lancaster, GRINDER SET UP OPERATOR INTERNAL - 04/06/2015 3:30 PM EDT Chief complaint requiring rehabilitation: Chronic low back pain there is also some left lower extremity pain. 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 Recreational: Manage flower and vegetable [...] Mary Beth is a candidate for functional druze. We've reviewed signs and symptoms of increasing [...] Lab 08/28/2022 Appointment Radiology Yuliana Hernandez MD [facility] [address] [place] [address] (Wo rk) 08/28/2022 Office Visit Gastroenterology Andrew Smith PA [facility] [address] [place] [place] [address] (Wo rk) Scheduled Referrals Name Type Priority Associated Order Schedule Diagnoses Referral to [facility] Referral Routine Chronic back pain Ordered: Assessment 04/06/2015 documented as of this encounter Visit Diagnoses Diagnosis Chronic back pain Backache, unspecified documented in this encounter Care Teams Boiler Setter Relationship Specialty Start Date End Date Hai Gallegos MD PCP - General 05/31/10 10/09/[address] [place] [address] documented as of this encounter
--- OUTSIDE RECORDS SUMMARY | 2022-05-05 00:47 | XMS_ITS | Encounter Summary ---
:1960 Author Organization [facility] [place] [address] Care Team Providers Name Role Phone Hai Gallegos MD Primary Care Provider [phone] Reason for Visit Reason Comments Low Back Pain Encounter Details Date Type Department Care Team Description 07/13/2015 Office Visit Functional Bahai Skylar Funes C onic back pain Program at [facility] OT [address] [place] [address] Social History Tobacco Use Types Packs/Day Years Used Date Current Every Day Smoker Cigarettes 0.5 Smokeless Tobacco: Never Used Sex Assigned at Date Recorded Not on file documented as of this encounter Progress Notes Skylar Funes OT - 07/13/2015 3:19 PM EST Functional Bahai Program (Day 1) Occupational Therapy Evaluation Problem [...] 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 She reports that she fell when a [...] schooling & additional training: High school diploma, [id number] for training of trainers Work experience has included the following jobs: [employer] for 8 years (last worked May 2014). 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 Holman reports the following return to work plan: No clear plans at this point. 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 She identifies the following barriers to return [...] According to the Dictionary of Occupational Titles, office manager receptionist falls in the Sedentary physical demand level; retail leader supervisor park workers falls in the Light physical demand level. [...] involves contact with the public, such as dividend clerk or office manager receptionist; Recreational: Be able to bend and [...] goals. FRP Goals: While working towards the exterminator helper (3 month) functional goals listed above, Ms. [...] 08/28/2022 Appointment Radiology Yuliana Hernandez MD [facility] [address] [place], [place] [address] (Wo rk) 08/28/2022 Office Visit Gastroenterology Andrew Smith PA [facility] [address] [place], [place] [address] (Wo rk) documented as of this encounter Visit Diagnoses Diagnosis Chronic back pain Backache, unspecified documented in this encounter Care Teams Nut Threader Relationship Specialty Start Date End Date Hai Gallegos MD PCP - General 05/31/10 10/09/[address] [place] [address] documented as of this encounter
--- OUTSIDE RECORDS SUMMARY | 2022-05-05 00:47 | XMS_ITS | Encounter Summary ---
:1960 Author Organization [place] [address] Care Team Providers Name Role Phone Hai Gallegos MD Primary Care Provider [phone] Reason for Visit Reason Comments Back Pain Encounter Details Date Type Department Care Team Description 07/23/2015 Office Visit Functional Restorationist Juan Carlos Foley, Chronic low back pain Program at [facility] PT [address] [place] [address] [place] [address] Social History Tobacco Use Types Packs/Day Years Used Date Current Every Day Smoker Cigarettes 0.5 Smokeless Tobacco: Never Used Sex Assigned at Date Recorded Not on file documented as of this encounter Progress Notes Juan Carlos Foley, PT - 07/23/2015 10:26 AM EST [facility] Physical Therapy Note [facility] Day 9 Protocol Subjective: Mary Beth returns today for a scheduled follow up appointment with [facility]; she reports getting easily fatigued with 3 minute trial of elliptical today but no symptoms aggravated during. Objective: Treatment Received: Refer to [facility] protocol for explanation of program/physical therapy details. 1. Therapeutic and Functional Exercise: See FRP flow sheets for progression. Strengthening and conditioning designed according to personal functional recovery goals and [facility] protocol was: (x) Completed ( ) [...] both a physical therapist and physical therapist cement tester assistant. Cande Wilson PTA documented in this encounter Plan of Treatment Upcoming Encounters Date Type Specialty Care Team Description 08/28/2022 Laboratory Appointment Lab 08/28/2022 Appointment Radiology Yuliana Hernandez MD [facility] [address] [place] [address] (Wo rk) 08/28/2022 Office Visit Gastroenterology Andrew Smith PA [facility] [address] [place] [address] (Wo rk) documented as of this encounter Visit Diagnoses Diagnosis Chronic low back pain Lumbago documented in this encounter Care Teams Geological Engineering Teacher Relationship Specialty Start Date End Date Hai Gallegos MD PCP - General 05/31/10 10/09/17 [address] [place] [address] documented as of this encounter
--- OUTSIDE RECORDS SUMMARY | 2022-05-05 00:47 | XMS_ITS | Encounter Summary ---
:1960 Author Organization [facility] [place] [address] Care Team Providers Name Role Phone Hai Gallegos MD Primary Care Provider [phone] Reason for Visit Reason Comments Low Back Pain Left Leg Pain Encounter Details Date Type Department Care Team Description 09/09/2015 Office Visit [facility]ine Center at [facility] Chroni c low back pain Nomi REBOLLAR [facility] [address] [place] [facility] [address] [place] [address] [phone] Social History Tobacco Use Types Packs/Day Years Used Date Current Every Day Smoker Cigarettes 0.5 Smokeless Tobacco: Never Used Sex Assigned at Date Recorded Not on file documented as of this encounter Progress Notes Medardo Lyles MD - 09/09/2015 1:59 PM EST CHIEF COMPLAINT: Chronic low back pain. SUBJECTIVE: She is here for her one-month protocol followup from the Functional Religion Program. She is very happy with her [...] MD [facility] [address] [place] [address] (Wo rk) 08/28/2022 Office Visit Gastroenterology Andrew Smith PA [facility] [address] [place] [address] (Wo rk) documented as of this encounter Visit Diagnoses Diagnosis Chronic low back pain Lumbago documented in this encounter Care Teams Brick Extruder Operator Relationship Specialty Start Date End Date Hai Gallegos MD PCP - General 05/31/10 10/09/17 [address] [place] [address] documented as of this encounter
--- OUTSIDE RECORDS SUMMARY | 2022-05-05 00:47 | XMS_ITS | Encounter Summary ---
:1960 Author Organization [place] [address] Care Team Providers Name Role Phone Hai Gallegos MD Primary Care Provider [phone] Reason for Visit Reason Comments Back Pain Encounter Details Date Type Department Care Team Description 07/19/2015 Office Visit Functional Cheondoism Juan Carlos Foley, Chronic low back pain Program at [facility] PT [address] [place] [address] [place] [address] Social History Tobacco Use Types Packs/Day Years Used Date Current Every Day Smoker Cigarettes 0.5 Smokeless Tobacco: Never Used Sex Assigned at Date Recorded Not on file documented as of this encounter Progress Notes Juan Carlos Foley, PT - 07/19/2015 10:[address] [facility] Physical Therapy Note [facility] Day 5 Protocol Subjective: Mary Beth returns today for a scheduled follow up appointment with [facility]; she reports that shedid not experiment as planned with flexion strategies due to stomach bug type illness over the weekend. Objective: Treatment Received: Refer to [facility] protocol for explanation of program/physical therapy details. 1. Therapeutic and Functional Exercise: See FRP flow sheets for progression. Strengthening and conditioning designed according to personal functional recovery goals and [facility] protocol was: (x) Completed ( ) [...] both a physical therapist and physical therapist development assistant. Cande Wilson PTA documented in this encounter Plan of Treatment Upcoming Encounters Date Type Specialty Care Team Description 08/28/2022 Laboratory Appointment Lab 08/28/2022 Appointment Radiology Yuliana Hernandez MD [facility] [address] [place] [address] (Wo rk) 08/28/2022 Office Visit Gastroenterology Andrew Smith PA [facility] [address] [place] [address] (Wo rk) documented as of this encounter Visit Diagnoses Diagnosis Chronic low back pain Lumbago documented in this encounter Care Teams Filling Mixer Relationship Specialty Start Date End Date Hai Gallegos MD PCP - General 05/31/10 10/09/17 [address] [facility] [place] [address] documented as of this encounter
--- OUTSIDE RECORDS SUMMARY | 2022-05-05 00:47 | XMS_ITS | Encounter Summary ---
:1960 Author Organization [facility] [address] Care Team Providers Name Role Phone Hai Gallegos MD Primary Care Provider [phone] Reason for Visit Reason Comments Low Back Pain Encounter Details Date Type Department Care Team Description 07/23/2015 Office Visit Functional Temple Skylar Funes C hronic low back pain Program at [facility] OT [address] [place] [address] Social History Tobacco Use Types Packs/Day Years Used Date Current Every Day Smoker Cigarettes 0.5 Smokeless Tobacco: Never Used Sex Assigned at Date Recorded Not on file documented as of this encounter Progress Notes Skylar Funes OT - 07/23/2015 7:56 AM EST [facility] Occupational Therapy Note [facility] Day 9 Protocol Subjective: Ms. Holman returns today for a scheduled follow up appointment with [facility]. She reports that carrying the crate is still difficult, however carrying the weighted buckets is easier as it is similar to what she has to do to feed the horses. Objective: Refer to [facility] protocol for details and explanation of [...] provided by both an Occupational Therapist and Communications Project Manager, BRONWYN Ortega documented in this encounter Plan of Treatment Upcoming Encounters Date Type Specialty Care Team Description 08/28/2022 Laboratory Appointment Lab 08/28/2022 Appointment Radiology Yuliana Hernandez MD [facility] [address] [place] [address] (Wo rk) 08/28/2022 Office Visit Gastroenterology Andrew Smith PA [facility] [address] [place] [address] (Wo rk) documented as of this encounter Visit Diagnoses Diagnosis Chronic low back pain Lumbago documented in this encounter Care Teams Capital Markets Specialist Relationship Specialty Start Date End Date Hai Gallegos MD PCP - General 05/31/10 10/09/17 [address] [place] [address] documented as of this encounter
--- OUTSIDE RECORDS SUMMARY | 2022-05-05 00:47 | XMS_ITS | Encounter Summary ---
:1960 Author Organization [facility] [place] [address] Care Team Providers Name Role Phone Hai Gallegos MD Primary Care Provider [phone] Reason for Visit Reason Onset Date Comments Other 05/25/2015 Encounter Details Date Type Department Care Team Description 05/25/2015 Telephone Spine Center at [facility] Emiliana [place] [address] Social History Tobacco Use Types Packs/Day Years Used Date Current Every Day Smoker Cigarettes 0.5 Smokeless Tobacco: Never Used Sex Assigned at Date Recorded Not on file documented as of this encounter Miscellaneous Notes Telephone Encounter - Emiliana Botello MSW - 05/25/2015 10:43 AM EST OFFICE OF CARE MANAGEMENT CCM Reply from income tax adjuster Anna Mike at ph [phone]/ fax [phone] regarding Ms. Holman's claim# [id number] that she and PINKY doctor are agreeable to [facility] and local lodging. She knows to coordinate local lodging and email list is sent to her [email or web address]. 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 Voc was discontinued as Ms. Holman was not engaged during the summer. Could reconsider pending progress with treatment. PLAN: 1) Jun.08-2014 FRP with local lodging documented in this encounter Plan of Treatment Upcoming Encounters Date Type Specialty Care Team Description 08/28/2022 Laboratory Appointment Lab 08/28/2022 Appointment Radiology Yuliana Hernandez MD [facility] [address] [place] [address] (Wo rk) 08/28/2022 Office Visit Gastroenterology Andrew Smith PA [facility] [address] [place] [address] (Wo rk) documented as of this encounter Visit Diagnoses Not on filedocumented in this encounter Care Teams Outreach Analyst Relationship Specialty Start Date End Date Hai Gallegos MD PCP - General 05/31/10 10/09/[address] [place] [address] documented as of this encounter
--- OUTSIDE RECORDS SUMMARY | 2022-05-05 00:47 | XMS_ITS | Encounter Summary ---
:1960 Author Organization [facility] [place] [address] Care Team Providers Name Role Phone Hai Gallegos MD Primary Care Provider [phone] Reason for Visit Reason Comments Low Back Pain Encounter Details Date Type Department Care Team Description 07/22/2015 Office Visit Functional Holiness Skylar Funes C onic low back pain Program at [facility] OT [address] [place] [address] Social History Tobacco Use Types Packs/Day Years Used Date Current Every Day Smoker Cigarettes 0.5 Smokeless Tobacco: Never Used Sex Assigned at Date Recorded Not on file documented as of this encounter Progress Notes Skylar Funes OT - 07/22/2015 8:48 AM EST [facility] Occupational Therapy Note [facility] Day 8 Protocol Subjective: Ms. Holman returns today for a scheduled follow up appointment with [facility]. She reports that she has not been in contact with her Voc. Rehab. Counselor, and cannot remember her last name, however she has the email address and will contact her to let her know that she would like her to talk to the team to coordinate vocational planning. Objective: Refer to [facility] protocol for details and explanation [...] provided by both an Occupational Therapist and Ticket Attendant, BRONWYN Ortega documented in this encounter Plan of Treatment Upcoming Encounters Date Type Specialty Care Team Description 08/28/2022 Laboratory Appointment Lab 08/28/2022 Appointment Radiology Yuliana Hernandez MD [facility] [address] [place] [address] (Wo rk) 08/28/2022 Office Visit Gastroenterology Andrew Smith PA [facility] [address] [place] [address] (Wo rk) documented as of this encounter Visit Diagnoses Diagnosis Chronic low back pain Lumbago documented in this encounter Care Teams Environmental Health Aide Relationship Specialty Start Date End Date Hai Gallegos MD PCP - General 05/31/10 10/09/17 [address] [place] [address] documented as of this encounter
--- OUTSIDE RECORDS SUMMARY | 2022-05-05 00:47 | XMS_ITS | Encounter Summary ---
:1960 Author Organization [facility] [place] [address] Care Team Providers Name Role Phone Hai Gallegos MD Primary Care Provider [phone] Reason for Visit Reason Onset Date Comments Other 05/21/2015 Encounter Details Date Type Department Care Team Description 05/21/2015 Telephone Spine Center at [facility] [place]iliana [place] [address] Social History Tobacco Use Types Packs/Day Years Used Date Current Every Day Smoker Cigarettes 0.5 Smokeless Tobacco: Never Used Sex Assigned at Date Recorded Not on file documented as of this encounter Miscellaneous Notes Telephone Encounter - Emiliana Botello MSW - 05/21/2015 4:33 PM EST OFFICE OF CARE MANAGEMENT CCM Reply from screw machine adjuster automatic Anna Mike at ph [phone]/ fax [phone] regarding Ms. Holman's claim# [id number] that [facility] juaquin has not yet responded requests an additional [...] Hernandez MD [facility] [address] [place] [address] (Wo rk) 08/28/2022 Office Visit Gastroenterology Andrew Smith PA [facility] [address] [place] [address] (Wo rk) documented as of this encounter Visit Diagnoses Not on filedocumented in this encounter Care Teams Rosin Barrel Filler Relationship Specialty Start Date End Date Hai Gallegos MD PCP - General 05/31/10 10/09/[address] [place] [address] documented as of this encounter
--- OUTSIDE RECORDS SUMMARY | 2022-05-05 00:47 | XMS_ITS | Encounter Summary ---
:1960 Author Organization [facility] [place] [address] Care Team Providers Name Role Phone Hai Gallegos MD Primary Care Provider [phone] Reason for Visit Reason Comments Back Pain Encounter Details Date Type Department Care Team Description 07/15/2015 Office Visit Functional Hoahaoism Juan Carlos Foley, Chronic low back pain Program at [facility] PT [address] [place] [address] [place] [address] Social History Tobacco Use Types Packs/Day Years Used Date Current Every Day Smoker Cigarettes 0.5 Smokeless Tobacco: Never Used Sex Assigned at Date Recorded Not on file documented as of this encounter Progress Notes Juan Carlos Foley, PT - 07/15/2015 10:[address] [facility] Physical Therapy Note [facility] Day 3 Protocol Subjective: Mary Beth returns today for a scheduled follow up appointment with [facility]; she reports continued low back, left thigh, [...] the cause. Objective: Treatment Received: Refer to [facility] protocol for explanation of program/physical therapy details. 1. Therapeutic and Functional Exercise: See [facility] flow sheets for progression. Strengthening and [...] both a physical therapist and physical therapist medical record assistant. Cande Wilson PTA documented in this encounter Plan of Treatment Upcoming Encounters Date Type Specialty Care Team Description 08/28/2022 Laboratory Appointment Lab 08/28/2022 Appointment Radiology Yuliana Hernandez MD [facility] [address] [place] [address] (Wo roz) 08/28/2022 Office Visit Gastroenterology Andrew Smith PA [facility] [address] [place] [address] (Wo rk) documented as of this encounter Visit Diagnoses Diagnosis Chronic low back pain Lumbago documented in this encounter Care Teams Data Communications Technician Relationship Specialty Start Date End Date Hai Gallegos MD PCP - General 05/31/10 10/09/17 4 [facility] [place] [address] documented as of this encounter
--- NOTE | 2022-05-05 09:37 | DI.RAD_ITS ---
Exam(s) XR CHEST 2V PA LATERAL EXAM: XR CHEST 2V PA LATERAL CLINICAL HISTORY: COUGH,WHEEZING,DYSPNEA,LYMPHADENOPATHY,LIKELY PNEUMONIA,J18.9 TECHNIQUE: 2D digital imaging was performed of the chest. Two images were obtained. PA and lateral views were obtained. COMPARISON: CR,XR XR CHEST 2V PA LATERAL from 02/27/2021 CR,XR XR PORTABLE CHEST AP from 12/05/2021 FINDINGS: MEDIASTINUM: Normal. HEART: Normal. PULMONARY VASCULATURE: Normal. LUNGS: Clear. PLEURAL SPACE: No pleural effusion or pneumothorax. BONE:Within normal limits for the patient's age. OTHER FINDINGS:Normal. IMPRESSION: No acute pulmonary findings. DATA REPOSITORY: RADIATION DOSE DELIVERED:
== END ==
PROVIDERS: PCP Family Medicine; Visit Provider Family Medicine
DX: R05.8 Other specified cough (principal); R06.2 Wheezing; R06.09 Other forms of dyspnea; J18.9 Pneumonia, unspecified organism
CPT/HCPCS: 71046

== ENCOUNTER 2022-06-12 16:43 | Emergency (ER) | payer MEDICAID, SELFPAY ==
[2022-06-12 16:49] VITALS: BP 137/77; PULSE 102; RESP 20; TEMP 36.9; O2SAT 92
--- NOTE | 2022-06-12 17:30 | DI.CT_ITS ---
Exam(s) CT NECK W EXAM: CT NECK W CLINICAL HISTORY: R facial/jaw swelling hx of sialolith. TECHNIQUE: Imaging Protocol: Axial computed tomography images with coronal and sagittal reformatted images were created and reviewed. CONTRAST MATERIAL: Intravenous: Omnipaque 350 Contrast volume:100mL COMPARISON: CT NECK WITH CONTRAST from 10/18/[address] BRAIN NECK CTA from 04/28/2022 FINDINGS: Orbits and orbital soft tissues: Within normal limits. Visualized paranasal sinuses: There is mild mucosal thickening in the left maxillary sinus and right sphenoid sinus. The remaining visualized paranasal sinuses and mastoid air cells are clear. Nasopharynx: Within normal limits. Oropharynx: Within normal limits. Hypopharynx: Calcifications are seen in the tonsils but no tonsillar enlargement or focal fluid rancho ection is seen. Larynx: Within normal limits. Retropharyngeal space: Within normal limits. Parotids/submandibular: The left submandibular gland is absent or atrophic. The left parotid gland is unremarkable. The right parotid gland is enlarged and heterogeneous. There is mild infiltration of the surrounding soft tissues. There is mild thickening seen of the adjacent sternocleidomastoid m uscle. Mildly enlarged lymph nodes are seen within the inferior parotid gland. Thyroid gland: Within normal limits. Lymphadenopathy: Please see the above discussion under parotid/submandibular. Trachea: Within normal limits. Lung apices: No focal consolidating infiltrates. Bones: Within normal limits for the patient's age. Carotids/Jugular: Within normal limits. Soft tissues: Within normal limits. IMPRESSION: Findings suspicious for right parotiditis. Mildly enlarged lymph nodes in the right parotid gland wh ich are likely reactive. No focal fluid collection is seen to suggest an abscess. RADIATION DOSE DELIVERED: 433.04mGy.cm Total DLP DATA REPOSITORY: All CT scans at this facility are submitted to the National Radiology Data Registry (NRDR) Dose Index Registry (DIR) with the [employer] (ACR). RADIATION OPTIMIZATION: All CT scans at this facility use at least one of these dose optimization te chniques: automated exposure control; mA and/or kV adjustment per patient size (includes targeted exa ms where dose is matched to clinical indication); or iterative reconstruction.
--- NOTE | 2022-06-12 17:59 | W.ED.GENAD ---
Discharge Plan Disposition Patient Disposition: Home Condition: Improving Discharge Details Clinical Impression: Acute parotitis Primary Care Provider: Hai Lopez ED Provider: Bernardo Gunn Home Meds and New Rx's Prescriptions: New amoxicillin-pot clavulanate 875-125 mg tablet 1 tab PO BID 5 Days Qty: 10 0RF No Action aspirin [Adult Aspirin Regimen] 81 mg tablet,delayed release (DR/EC) 81 mg PO DAILY Rx Instructions: Must be Enteric-Coated. EO lisinopril 20 mg tablet 20 mg PO DAILY Qty: 90 3RF Rx Instructions: to lower blood pressure under 130/85 paroxetine HCl [Paxil] 20 mg tablet 20 mg PO DAILY Qty: 90 3RF omeprazole 40 mg capsule,delayed release(DR/EC) 40 mg PO DAILY Qty: 90 3RF Rx Instructions: once daily for GERD insulin lispro [Humalog KwikPen Insulin] 100 unit/mL insulin pen See Rx Instructions SC TID Qty: 15 3RF Rx Instructions: 4 units at breakfast, 6 units before lunch, 7 units before dinner subcut three times a day; albuterol sulfate 1.25 mg/3 mL solution for nebulization 1.25 mg IH QID PRN (Reason: shortness of breath or wheezing) Qty: 120 2RF pregabalin 150 mg capsule 150 mg PO BID Qty: 180 3RF Jardiance 25 mg tablet 25 mg PO DAILY Qty: 90 3RF Rx Instructions: to help control blood sugars, E11.65 fluticasone furoate 27.5 mcg/actuation spray,suspension 2 spray intranasal DAILY Qty: 9.1 1RF Rx Instructions: into each nostril Zyrtec 10 mg capsule 10 mg PO DAILY PRN (DME) lancets 33 gauge misc 1 ea Miscellaneous BID Qty: 180 3RF Rx Instructions: E11.65 for twice daily FS check to control DM A1c 7.5; E11.65 (DME) FreeStyle Coby 14 Day [place] Misc See Rx Instructions .ROUTE .MEDSUPPLY Qty: 1 0RF Rx Instructions: As directed (DME) FreeStyle Test Strip See Rx Instructions .ROUTE .MEDSUPPLY Qty: 100 6RF Rx Instructions: As directed to use with fresetyle coby; Test TID; To keep HbA1c less than 6.5% (DME) pen needle, diabetic [BD Ultra-Fine Mini Pen Needle] 31 gauge x 3/16 needle See Dose Instructions .ROUTE .MEDSUPPLY Qty: 100 12RF Dose Instruction: As directed Rx Instructions: As directed insulin degludec [Tresiba FlexTouch U-200] 200 unit/mL (3 mL) insulin pen See Rx Instructions subcut BID Qty: 9 11RF Rx Instructions: 20 units qam and 56 units qhs subcut twice a day; (DME) FreeStyle Coby 2 Sensor Kit See Rx Instructions .ROUTE .COMPLEX Qty: 2 11RF Dose Instruction: USE DIRECTED TO KEEP HBA1C LESS THAN 6.5% Rx Instructions: USE DIRECTED TO KEEP HBA1C LESS THAN 6.5% albuterol sulfate [ProAir HFA] 90 mcg/actuation HFA aerosol inhaler 2 puff Inhalation Q4H PRN Qty: 1 6RF Rx Instructions: for SOB or wheezing, dispense with spacer meclizine 25 mg tablet 50 mg PO BID PRN (Reason: dizziness) Qty: 360 1RF Rx Instructions: insurance does not pay for 50 mg tablet, only the 25 mg tab. cc Discharge Instructions Instructions: Parotid Duct Obstruction (ED) Additional Instructions: You have been diagnosed with parotitis which is an inflammation of your parotid gland which is a salivary gland to create saliva. This can be caused by viral infection or bacterial infection or blockage. We do not see any evidence of a stone on your CAT scan. We are giving her prescription for antibiotics to be filled tomorrow if your symptoms are persistent, however if you feel like your symptoms are improving on their own you do not need to take antibiotics. Please help with your primary care physician. Medical Decision Making 61-year-old female history of salivary stone in the past presents with right submandibular swelling mild in nature no erythema minimal induration, no fluctuance, edentulous right lower jaw, no periapical abscess or gingival findings noted, no sublingual or submental induration. Patient is tolerating secretions normal voice. Consider recurrent sialolithiasis versus dental abscess versus facial cellulitis; no evidence of Delmis's angina. Will obtain basic labs CT imaging of neck will provide analgesia anti-inflammatory. Disposition pending labs imaging and reassessment. 20: 02 evidence of parotitis. Largely improved after anti-inflammatories. We will send patient home with a prescription for Augmentin in case this is a bacterial origin however given great improvement have told patient that if symptoms completely resolved tomorrow she can discard the prescription as this very well could be a viral parotitis or postobstructive parotitis that is resolved. Home care instructions and return precautions given Sign Out No HPI General Date/Time Provider Initiated Documentation: 06/12/22 16:45. HPI Narrative: 61-year-old female history of sialolithiasis presents with right lower jaw and facial discomfort over the past day, described as a swelling sensation. Related Data Home Medications Medication Instructions Recorded Confirmed albuterol sulfate 1.25 mg/3 mL 1.25 mg (3 mL) inhalation QID PRN 07/03/18 06/07/22 solution for nebulization shortness of breath or wheezing #120 mL lancets 33 gauge #180 ea 09/26/19 06/07/22 aspirin 81 mg tablet,delayed 81 mg PO DAILY 12/26/19 06/07/22 release (Adult Aspirin Regimen) flash glucose scanning reader #1 ea 07/22/20 06/07/22 (FreeStyle Coby 14 Day [place]) blood sugar diagnostic (FreeStyle #100 ea 07/27/20 06/07/22 Test strips) lisinopril 20 mg tablet 20 mg PO DAILY #90 tab-caps 06/14/21 06/07/22 omeprazole 40 mg capsule,delayed 40 mg PO DAILY #90 tab-caps 06/14/21 06/07/22 release paroxetine HCl 20 mg tablet (Paxil) 20 mg PO DAILY #90 tabs 06/14/21 06/07/22 insulin lispro 100 unit/mL See Rx Instructions subcut TID #15 11/01/21 06/07/22 subcutaneous pen (Humalog KwikPen mL (U-100) Insulin) pen needle, diabetic 31 gauge x #100 ea 11/03/21 06/07/22/16 (BD Ultra-Fine Mini Pen Needle) empagliflozin 25 mg tablet 25 mg PO DAILY #90 tabs 02/03/22 06/07/22 (Jardiance) pregabalin 150 mg capsule 150 mg PO BID #180 caps 02/03/22 06/07/22 insulin degludec 200 unit/mL (3 See Rx Instructions subcut BID #9 02/06/22 06/07/22 mL) subcutaneous pen (Tresiba mL FlexTouch U-200 insulin) fluticasone furoate 27.5 2 spray intranasal DAILY #9.1 mL 03/14/22 06/07/22 mcg/actuation nasal spray,suspension cetirizine 10 mg capsule (Zyrtec) 10 mg PO DAILY PRN 03/24/22 06/07/22 flash glucose sensor (FreeStyle #2 kits 04/10/22 06/07/22 Coby 2 Sensor kit) albuterol sulfate 90 mcg/actuation 2 puff inhalation Q4H PRN 04/27/22 06/07/22 aerosol inhaler (ProAir HFA) wheezing, SOB #1 puff meclizine 25 mg tablet 50 mg PO BID PRN dizziness #360 05/25/22 06/07/22 tabs amoxicillin 875 mg-potassium 1 tab PO BID 5 days #10 tabs 06/12/22 clavulanate 125 mg tablet Previous Rx's Medication Instructions Recorded albuterol sulfate 1.25 mg/3 mL 1.25 mg (3 mL) inhalation QID PRN 07/03/18 solution for nebulization shortness of breath or wheezing #120 mL lancets 33 gauge #180 ea 09/26/19 flash glucose scanning reader #1 ea 07/22/20 (FreeStyle Coby 14 Day [place]) blood sugar diagnostic (FreeStyle #100 ea 07/27/20 Test strips) lisinopril 20 mg tablet 20 mg PO DAILY #90 tab-caps 06/14/21 omeprazole 40 mg capsule,delayed 40 mg PO DAILY #90 tab-caps 06/14/21 release paroxetine HCl 20 mg tablet (Paxil) 20 mg PO DAILY #90 tabs 06/14/21 insulin lispro 100 unit/mL See Rx Instructions subcut TID #15 11/01/21 subcutaneous pen (Humalog KwikPen mL (U-100) Insulin) pen needle, diabetic 31 gauge x #100 ea 11/03/2109/21 (BD Ultra-Fine Mini Pen Needle) empagliflozin 25 mg tablet 25 mg PO DAILY #90 tabs 02/03/22 (Jardiance) pregabalin 150 mg capsule 150 mg PO BID #180 caps 02/03/22 insulin degludec 200 unit/mL (3 See Rx Instructions subcut BID #9 02/06/22 mL) subcutaneous pen (Tresiba mL FlexTouch U-200 insulin) fluticasone furoate 27.5 2 spray intranasal DAILY #9.1 mL 03/14/22 mcg/actuation nasal spray,suspension flash glucose sensor (FreeStyle #2 kits 04/10/22 Coby 2 Sensor kit) albuterol sulfate 90 mcg/actuation 2 puff inhalation Q4H PRN 04/27/22 aerosol inhaler (ProAir HFA) wheezing, SOB #1 puff meclizine 25 mg tablet 50 mg PO BID PRN dizziness #360 05/25/22 tabs amoxicillin 875 mg-potassium 1 tab PO BID 5 days #10 tabs 06/12/22 clavulanate 125 mg tablet Allergies Allergy/AdvReac Type Severity Reaction Status Date / Time fluoxetine HCl [From Prozac] Allergy Intermediate rash Verified 06/07/22 11:13 metformin AdvReac Severe diarrhea Verified 06/07/22 11:13 rofecoxib [From Vioxx] AdvReac Severe bleeding Verified 06/07/22 11:13 aspirin AdvReac Intermediate GI Upset Verified 06/07/22 11:13 celecoxib [From Celebrex] AdvReac Intermediate GI Upset Verified 06/07/22 11:13 naproxen AdvReac Intermediate Stomach Verified 06/07/22 11:13 intolerance General Stated Complaint: FacialProb HOSSEIN: 4 Review of Systems Narrative: Review of Systems Constitutional: negative Eyes: negative ENT: Facial swelling Cardiovascular: negative Respiratory: negative Gastrointestinal: negative : negative Musculoskeletal: negative Skin: negative Neurologic: negative Psych: negative PFSH All Active Problems (Updated 06/12/22 @ 20:03 by Bernardo Gunn MD) Acute parotitis (Acute) Acute pancreatitis (Acute 02/23/22) Community acquired pneumonia (Acute) Cerebral aneurysm (Acute) Vertigo (Acute) Cataract (Chronic) History of stroke (Acute) Sensorineural hearing loss (SNHL) of both ears (Acute) Balance disorder (Acute) Episodes of ataxic gait, per pt report (as if drunk), and veering off-road x1. Presumed BPV, but re-assessing. Allergic sinusitis (Acute) Acute bronchitis (Acute) Hypoglycemia (Acute) Myofascial muscle pain (Acute) Ex-smoker for more than 1 year (Acute) Osteoarthritis of knee (Chronic) Asthma (Chronic) Diagnosed in 1993 Hyperlipidemia (Chronic) Obesity (Chronic) Hypertriglyceridemia (Chronic) Benign paroxysmal vertigo (Acute) Dr Marshall testing 2000; head CT 10/06/02 & 03/05/06; HAD IN PAST; AGAIN 02/2012; again 08/08/13 to L Chronic airway obstruction (Acute 06/05/14) exacerbation 03/2014 [facility]; FEV1 1.6 (58& pred; 62% FVC) no response to bronchodilators Gastro-esophageal reflux disease without esophagitis (Acute 08/25/11) responds to PPI, unable to stop 02/2017 Type 2 diabetes mellitus with hyperglycemia (Acute 10/12/15) 03/2014 hospital A1C 7%; goal A1c<7.5 Liver cirrhosis (Chronic) Chronic hepatitis (Acute 05/09/93) Essential hypertension (Chronic) Nonalcoholic steatohepatitis (BUI) (Chronic) [facility] 02/20/19. Stroke (Chronic) Depressive disorder (Chronic) Intermittent. Polyarthritis (Acute) Unspecified visual disturbance (Acute) [facility] opthalmology Unspecified visual field defects (Acute) Exophoria (Acute) Benign paroxysmal positional vertigo of right ear (Acute) Referred otalgia of right ear (Acute) Neck pain (Acute 06/29/16) Steroid-induced hyperglycemia (Acute 03/09/14) Uncontrolled type 2 diabetes mellitus without complication, with long-term current use of insulin (Acute) Submandibular sialoadenitis (Acute 06/29/16) 06/29/16 Right flank pain (Acute 07/31/16) Other sleep disturbances (Acute 08/16/12) when back hurts and left knee/leg throb, sleep is disturbed Mechanical low back pain (Acute 08/02/08) DAILY PAIN SINCE FALL ON ICE AT WORK AUG 02, 2008 WC; re-injured 06/17/12 lifting at work; MRI 09/2012: MOD FACET ARTHROPATHY L5-S1, MILD L4-5 Tens unit 09/23/14; Functional Restor prg 07/2015 Diabetes mellitus (Chronic 04/16/14) 03/2014 hospital A1C 7%; goal A1c<7.5 Chronic rhinitis (Acute 08/25/11) Cervicalgia (Acute 06/29/16) 06/29/16 Arthropathy, unspecified (Acute 08/25/11) marjorie knees Acute renal failure (Acute 04/06/14) Neuropathy of finger (Chronic) Intermittent vertigo (Chronic) Trigger thumb of right hand (Chronic) Medical History (Updated 06/12/22 @ 20:03 by Bernardo Gunn MD) Hepatitis C Postmenopausal disorder Ongoing hot flashes. Serous otitis media Surgical History section x3 COLONOSCOPY W/ BX (10/10/17) elbow surg x2 ganglion wrist cyst removal x2 History of laryngoscopy 04/10/19 transnasal laryngoscopy salivary gland (02/23/17) [facility], left submental UGI W/ BX (10/10/17) [facility] Family History Father Heart disease Sister COPD (chronic obstructive pulmonary disease) Obese Brother Diabetes Essential hypertension Asthma Heart disease Hypertension Brother COPD (chronic obstructive pulmonary disease) Brother Alcohol abuse Brother Neoplasm non hodgkins lymphoma Mother COPD (chronic obstructive pulmonary disease) Asthma Heart disease Hypertension Social History Smoking/Tobacco Use Status: Current every day Tobacco: How many years used: 10 Second Hand Exposure: No Smoking risk assessment performed?: Yes Alcohol Intake: former Drug use: Never Substance use type: does not use Adopted: No Foster care: No Household members: family and other Details: mother Housing: house Number of Children: 3 Communication Needs: Corrective Lenses Do you need help understanding health information?: Rarely 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 Pets and animals: Yes Pets and animals: cat(s), dog(s) and bird(s) Sexually active: No Do you think of yourself as: straight/heterosexual Current gender identity: female What is your relationship status?: How often do you talk on the phone with friends or family?: three or more times per week How often do you get together with friends or relatives?: decline to answer How often do you attend samaritan or congregational services?: 1-3 times per year Panel score (0-1 are the most socially isolated patients): 1 What type of physical activity do you participate in: none Meg/Cheondoism: None Special meg needs: No Seatbelt use: always Helmet use: Yes Helmet use: other Details: N/A Drive intox or ride w/intox school boat driver: No Working smoke detector in home: Yes Fire extinguisher in home: Yes Carbon monox detector in home: Yes Do you feel safe at home: Yes Do you feel safe in your relationship?: Yes Exam Narrative Exam Narrative: Physical Examination General: alert, awake, cooperative, resting comfortably, no acute distress HEENT: normocephalic, atraumatic; PERRL, EOM intact, conjunctiva normal; no nasal discharge; moist mucous membranes, oral and pharyngeal mucosa normal, tolerating secretionsl possible slight induration localized location under right mandible, no definitive erythema or fluctuance, edentulous right lower mouth, no palpable gingival abscess, no sublingual or or submental firmness Neck: supple, trachea midline; full ROM Chest: normal to inspection Respiratory: normal respiratory effort, speaking in full sentences, clear to auscultation, no wheezing, rales or rhonchi Cardiac: regular rate, regular rhythm, S1S2 intact, no murmurs rubs or gallops GI: abdomen soft, non-tender, non-distended; no palpable mass or hepatosplenomegaly Skin: no lesions, rashes or trauma appreciated Neuro: AAOx3, normal speech, moving all extremities Psych: Appropriate mood and affect Course Vital Signs Vital signs: Vital Signs Temperature 36.9 C 06/12/22 16:49 Pulse 102 H 06/12/22 16:49 Respiratory Rate 20 06/12/22 16:49 Blood Pressure 137/77 06/12/22 16:49 Pulse Oximetry 92 06/12/22 16:49 Temperature 36.9 C 06/12/22 16:49 Temperature Source Temporal Artery Scan 06/12/22 16:49 Pulse 102 H 06/12/22 16:49 Respiratory Rate 20 06/12/22 16:49 Blood Pressure 137/77 06/12/22 16:49 Blood Pressure Position Sitting 06/12/22 16:49 Pulse Oximetry 92 06/12/22 16:49 Oxygen Delivery Method Room Air 06/12/22 16:49 Oxygen Flow Rate 0 06/12/22 16:49
[2022-06-12 18:11] LABS: Abs Immature Grans 0.04 10^3/uL (0.0-0.06); Absolute Basophil Count 0.09 10^3/uL (0.0-0.2); Absolute Eosinophil Count 0.28 10^3/uL (0.0-0.7); Absolute Lymphocyte Count 3.84 10^3/uL (1.2-3.4); Absolute Monocyte Count 0.79 10^3/uL (0.1-0.8); Absolute Neutrophil Count 8.52 10^3/uL (1.2-6.7); Basophils % 0.7; Eosinophils % 2.1; HCT 54.1 % (36.0-46.0); HGB 17.8 g/dL (11.2-15.7); Immature Grans % 0.3; Lymphocytes % 28.3; MCH 29.5 pg (27.0-33.0); MCHC 32.9 % (32.0-36.0); MCV 90 fL (80-95); MPV 11.2 fL (8.0-11.0); Monocytes % 5.8; Neutrophils % 62.8; Platelet Count 204 10^3/uL (130-400); RBC 6.03 10^6/uL (3.93-5.22); RDW 15.6 % (11.7-14.6); RDW-SD 50.5 fL; WBC 13.56 10^3/uL (4.4-10.8)
[2022-06-12] MEDS: ACETAMINOPHEN 1,000 MG/100 ML BTL 400 MG IVPB (18:12)
[2022-06-12] MEDS: Dexamethasone 10 MG/ML VIAL IVP (18:14)
[2022-06-12 18:30] LABS: ALT 23 U/L (14-59); AST 20 U/L (15-37); Albumin 4.3 g/dL (3.4-5.0); Alkaline Phosphatase 137 U/L (46-116); Anion Gap 7.9 mmol/L (3-11); BUN 19 mg/dL (7-18); Bilirubin, Total 0.3 mg/dL (0.2-1.0); CO2 32.1 mmol/L (21.0-32.0); CREATININE 0.9 mg/dL (0.55-1.02); Calcium 9.3 mg/dL (8.5-10.1); Chloride 101 mmol/L (98-107); Estimated GFR 72.28 (mL/min/1.73m2); Glucose 210 mg/dL (74-106); Potassium 4.1 mmol/L (3.5-5.1); Sodium 141 mmol/L (136-145); Total Protein 8.2 g/dL (6.4-8.2)
[2022-06-12] MEDS: Omnipaque 350 MG/ML 500 ML BTL-Imaging package IJ (19:10)
[2022-06-12] MEDS: Normal Saline - Diluent 50 ML VIAL IJ (19:12)
--- NOTE | 2022-06-12 19:44 | DI.VRAD_ITS ---
PROCEDURE INFORMATION: Exam: CT Neck With Contrast Exam date and time: 06/12/2022 7:28 PM Age: 61 years old Clinical indication: Mass, lump, or swelling in neck; Right; Neck pain TECHNIQUE: Imaging protocol: Computed tomography of the neck with contrast. Contrast material: OMNI 350; Contrast volume: 100 ml; Contrast route: INTRAVENOUS (IV); COMPARISON: CT BRAIN NECK CTA 04/28/2022 3:01 PM FINDINGS: Pharynx: Focal calcifications are identified in the palatine tonsils, most likely secondary to prior episodes of inflammation. No significant tonsillar enlargement. Larynx: Unremarkable. Epiglottis is normal. Prevertebral and retropharyngeal spaces: Unremarkable. Salivary glands: Abnormal enlargement and mild increased attenuation in the right parotid gland with thickening of the capsule and mild surrounding infiltration. Mildly enlarged lymph nodes in the inferior right parotid gland Minimal fluid in the right submandibular space. Atrophic left submandibular gland versus prior resection Thyroid: Normal. No enlarged or calcified nodules. Lymph nodes: No jugular chain or retropharyngeal lymphadenopathy. Trachea: Visualized trachea is unremarkable. Lungs: Unremarkable as visualized. Bones/joints: Unremarkable. No acute fracture. Soft tissues: Unremarkable. No significant soft tissue swelling. IMPRESSION: Mild right parotiditis suspected. Mildly enlarged lymph nodes in the inferior right parotid gland presumed reactive. No abscess Dictated and Authenticated by: Santos Ludwig MD. Ordering:LOIDA Chang MD
== END 2022-06-12 20:16 | disposition home or self-care (01) ==
PROVIDERS: Emergency Provider Emergency Medicine; PCP Family Medicine
DX: K11.21 Acute sialoadenitis (principal); F17.200 Nicotine dependence, unspecified, uncomplicated
CPT/HCPCS: 70491; 80053; 96374; 96375; 99285; 85025; 99284; J0131; J1100

== ENCOUNTER 2022-06-20 10:58 | Emergency (ER) | payer MEDICAID, SELFPAY ==
[2022-06-20 11:07] VITALS: BP 104/81; PULSE 104; RESP 20; TEMP 36.6; O2SAT 94
--- NOTE | 2022-06-20 11:15 | DI.RAD_ITS ---
Exam(s) XR SHOULDER RT COMPLETE 2+V EXAM: XR SHOULDER RT COMPLETE 2+V CLINICAL HISTORY: right shoulder pain. TECHNIQUE: 2D digital imaging was performed of the right shoulder. Five images were obtained. AP, Grashey, Y-view and axillary views were obtained. COMPARISON: CR,XR XR PORTABLE CHEST AP from 12/05/2021 FINDINGS: BONES: No acute fracture is present. No bony destructive lesion is seen. JOINTS: No dislocation present. There are degenerative changes seen at both the acromioclavicular and glenohumeral joints. SOFT TISSUE: Normal. IMPRESSION: Degenerative changes of the right shoulder. DATA REPOSITORY: RADIATION DOSE DELIVERED:
--- NOTE | 2022-06-20 12:00 | ED.GENADUL_ITS ---
Discharge Plan Disposition Patient Disposition: Home Condition: Stable Discharge Details Clinical Impression: Arthralgia Primary Care Provider: Hai Lopez ED Provider: Katelyn Kearney Home Meds and New Rx's Prescriptions: New methylprednisolone [Medrol (Juan Miguel)] 4 mg tablets,dose pack See Rx Instructions .ROUTE .COMPLEX Qty: 21 0RF Rx Instructions: orally per package directions Continued aspirin [Adult Aspirin Regimen] 81 mg tablet,delayed release (DR/EC) 81 mg PO DAILY Rx Instructions: Must be Enteric-Coated. EO lisinopril 20 mg tablet 20 mg PO DAILY Qty: 90 3RF Rx Instructions: to lower blood pressure under 130/85 paroxetine HCl [Paxil] 20 mg tablet 20 mg PO DAILY Qty: 90 3RF omeprazole 40 mg capsule,delayed release(DR/EC) 40 mg PO DAILY Qty: 90 3RF Rx Instructions: once daily for GERD insulin lispro [Humalog KwikPen Insulin] 100 unit/mL insulin pen See Rx Instructions SC TID Qty: 15 3RF Rx Instructions: 4 units at breakfast, 6 units before lunch, 7 units before dinner subcut three times a day; albuterol sulfate 1.25 mg/3 mL solution for nebulization 1.25 mg IH QID PRN (Reason: shortness of breath or wheezing) Qty: 120 2RF pregabalin 150 mg capsule 150 mg PO BID Qty: 180 3RF Jardiance 25 mg tablet 25 mg PO DAILY Qty: 90 3RF Rx Instructions: to help control blood sugars, E11.65 fluticasone furoate 27.5 mcg/actuation spray,suspension 2 spray intranasal DAILY Qty: 9.1 1RF Rx Instructions: into each nostril Zyrtec 10 mg capsule 10 mg PO DAILY PRN (DME) lancets 33 gauge misc 1 ea Miscellaneous BID Qty: 180 3RF Rx Instructions: E11.65 for twice daily FS check to control DM A1c 7.5; E11.65 (DME) FreeStyle Coby 14 Day [place] Misc See Rx Instructions .ROUTE .MEDSUPPLY Qty: 1 0RF Rx Instructions: As directed (DME) FreeStyle Test Strip See Rx Instructions .ROUTE .MEDSUPPLY Qty: 100 6RF Rx Instructions: As directed to use with fresetyle coby; Test TID; To keep HbA1c less than 6.5% (DME) pen needle, diabetic [BD Ultra-Fine Mini Pen Needle] 31 gauge x 3/16 needle See Dose Instructions .ROUTE .MEDSUPPLY Qty: 100 12RF Dose Instruction: As directed Rx Instructions: As directed insulin degludec [Tresiba FlexTouch U-200] 200 unit/mL (3 mL) insulin pen See Rx Instructions subcut BID Qty: 9 11RF Rx Instructions: 20 units qam and 56 units qhs subcut twice a day; (DME) FreeStyle Coby 2 Sensor Kit See Rx Instructions .ROUTE .COMPLEX Qty: 2 11RF Dose Instruction: USE DIRECTED TO KEEP HBA1C LESS THAN 6.5% Rx Instructions: USE DIRECTED TO KEEP HBA1C LESS THAN 6.5% albuterol sulfate [ProAir HFA] 90 mcg/actuation HFA aerosol inhaler 2 puff Inhalation Q4H PRN Qty: 1 6RF Rx Instructions: for SOB or wheezing, dispense with spacer meclizine 25 mg tablet 50 mg PO BID PRN (Reason: dizziness) Qty: 360 1RF Rx Instructions: insurance does not pay for 50 mg tablet, only the 25 mg tab. cc Discharge Instructions Additional Instructions: Medrol Dosepak as prescribed Take Tylenol 650 every 4-6 hours Apply diclofenac gel topically to your shoulder Follow-up with your primary care physician in 2 to 3 days for reassessment and return earlier should you have new or worsening complaints Referrals: Hai Lopez DO [Primary Care Provider] - Discharge Data Discharge Date/Time-TO BE ENTERED AT DEPARTURE: 06/20/22 12:46 Medical Decision Making 61-year-old female presents with report of right shoulder pain precipitated by lifting a heavy object X-ray shows degenerative changes, no clinical evidence of septic joint Declined sling Will take supportive care Return precautions reviewed and patient expressed understanding Referred to PCP and PT Medical Records Medical records reviewed: Yes I reviewed the patient's medical records. Lab Data Lab results reviewed: Yes I reviewed the patient's lab results. Sign Out No HPI General Date/Time Provider Initiated Documentation: 06/20/22 11:12 . HPI Narrative: This 61-year-old female presents with report of right shoulder pain. She states she lifted heavy object last evening and precipitated the pain. She is unable to abduct and externally rotate secondary to discomfort. She took some Tylenol at 4:30 in the morning which helped minimally with her pain. She denies any neck pain, chest pain, shortness of breath, dizziness, weakness. Denies any strength or sensation change aside from in her fingertips which is precipitated with movement of her shoulder. Related Data Home Medications Medication Instructions Recorded Confirmed albuterol sulfate 1.25 mg/3 mL 1.25 mg (3 mL) inhalation QID PRN 07/03/18 06/20/22 solution for nebulization shortness of breath or wheezing #120 mL lancets 33 gauge #180 ea 09/26/19 06/20/22 aspirin 81 mg tablet,delayed 81 mg PO DAILY 12/26/19 06/20/22 release (Adult Aspirin Regimen) flash glucose scanning reader #1 ea 07/22/20 06/20/22 (FreeStyle Coby 14 Day [place]) blood sugar diagnostic (FreeStyle #100 ea 07/27/20 06/20/22 Test strips) lisinopril 20 mg tablet 20 mg PO DAILY #90 tab-caps 06/14/21 06/20/22 omeprazole 40 mg capsule,delayed 40 mg PO DAILY #90 tab-caps 06/14/21 06/20/22 release paroxetine HCl 20 mg tablet (Paxil) 20 mg PO DAILY #90 tabs 06/14/21 06/20/22 insulin lispro 100 unit/mL See Rx Instructions subcut TID #15 11/01/21 06/20/22 subcutaneous pen (Humalog KwikPen mL (U-100) Insulin) pen needle, diabetic 31 gauge x #100 ea 11/03/21 06/20/22/16 (BD Ultra-Fine Mini Pen Needle) empagliflozin 25 mg tablet 25 mg PO DAILY #90 tabs 02/03/22 06/20/22 (Jardiance) pregabalin 150 mg capsule 150 mg PO BID #180 caps 02/03/22 06/20/22 insulin degludec 200 unit/mL (3 See Rx Instructions subcut BID #9 02/06/22 06/20/22 mL) subcutaneous pen (Tresiba mL FlexTouch U-200 insulin) fluticasone furoate 27.5 2 spray intranasal DAILY #9.1 mL 03/14/22 06/20/22 mcg/actuation nasal spray,suspension cetirizine 10 mg capsule (Zyrtec) 10 mg PO DAILY PRN 03/24/22 06/20/22 flash glucose sensor (FreeStyle #2 kits 04/10/22 06/20/22 Coby 2 Sensor kit) albuterol sulfate 90 mcg/actuation 2 puff inhalation Q4H PRN 04/27/22 06/20/22 aerosol inhaler (ProAir HFA) wheezing, SOB #1 puff meclizine 25 mg tablet 50 mg PO BID PRN dizziness #360 05/25/22 06/20/22 tabs methylprednisolone 4 mg tablets in See Rx Instructions PO .COMPLEX 06/20/22 a dose pack ([employer] (Juan Miguel)) #21 dose pk Previous Rx's Medication Instructions Recorded albuterol sulfate 1.25 mg/3 mL 1.25 mg (3 mL) inhalation QID PRN 07/03/18 solution for nebulization shortness of breath or wheezing #120 mL lancets 33 gauge #180 ea 09/26/19 flash glucose scanning reader #1 ea 07/22/20 (FreeStyle Coby 14 Day [place]) blood sugar diagnostic (FreeStyle #100 ea 07/27/20 Test strips) lisinopril 20 mg tablet 20 mg PO DAILY #90 tab-caps 06/14/21 omeprazole 40 mg capsule,delayed 40 mg PO DAILY #90 tab-caps 06/14/21 release paroxetine HCl 20 mg tablet (Paxil) 20 mg PO DAILY #90 tabs 06/14/21 insulin lispro 100 unit/mL See Rx Instructions subcut TID #15 11/01/21 subcutaneous pen (Humalog KwikPen mL (U-100) Insulin) pen needle, diabetic 31 gauge x #100 ea 11/03/2109/21 (BD Ultra-Fine Mini Pen Needle) empagliflozin 25 mg tablet 25 mg PO DAILY #90 tabs 02/03/22 (Jardiance) pregabalin 150 mg capsule 150 mg PO BID #180 caps 02/03/22 insulin degludec 200 unit/mL (3 See Rx Instructions subcut BID #9 02/06/22 mL) subcutaneous pen (Tresiba mL FlexTouch U-200 insulin) fluticasone furoate 27.5 2 spray intranasal DAILY #9.1 mL 03/14/22 mcg/actuation nasal spray,suspension flash glucose sensor (FreeStyle #2 kits 04/10/22 Coby 2 Sensor kit) albuterol sulfate 90 mcg/actuation 2 puff inhalation Q4H PRN 04/27/22 aerosol inhaler (ProAir HFA) wheezing, SOB #1 puff meclizine 25 mg tablet 50 mg PO BID PRN dizziness #360 05/25/22 tabs methylprednisolone 4 mg tablets in See Rx Instructions PO .COMPLEX 06/20/22 a dose pack (Medrol (Juan Miguel)) #21 dose pk Allergies Allergy/AdvReac Type Severity Reaction Status Date / Time fluoxetine HCl [From Prozac] Allergy Intermediate rash Verified 06/20/22 11:12 metformin AdvReac Severe diarrhea Verified 06/20/22 11:12 rofecoxib [From Vioxx] AdvReac Severe bleeding Verified 06/20/22 11:12 aspirin AdvReac Intermediate GI Upset Verified 06/20/22 11:12 celecoxib [From Celebrex] AdvReac Intermediate GI Upset Verified 06/20/22 11:12 naproxen AdvReac Intermediate Stomach Verified 06/20/22 11:12 intolerance General Stated Complaint: Orthopedic HOSSEIN: 4 Review of Systems All systems reviewed & are unremarkable except as noted in HPI and below PFSH All Active Problems (Updated 06/20/22 @ 12:02 by GOMEZ López) Acute parotitis (Acute) Arthralgia (Acute) Acute pancreatitis (Acute 02/23/22) Community acquired pneumonia (Acute) Cerebral aneurysm (Acute) Vertigo (Acute) Cataract (Chronic) History of stroke (Acute) Sensorineural hearing loss (SNHL) of both ears (Acute) Balance disorder (Acute) Episodes of ataxic gait, per pt report (as if drunk), and veering off-road x1. Presumed BPV, but re-assessing. Allergic sinusitis (Acute) Acute bronchitis (Acute) Hypoglycemia (Acute) Myofascial muscle pain (Acute) Ex-smoker for more than 1 year (Acute) Osteoarthritis of knee (Chronic) Asthma (Chronic) Diagnosed in 1993 Hyperlipidemia (Chronic) Obesity (Chronic) Hypertriglyceridemia (Chronic) Benign paroxysmal vertigo (Acute) Dr Marshall testing 2000; head CT 10/06/02 & 03/05/06; HAD IN PAST; AGAIN 02/2012; again 08/08/13 to L Chronic airway obstruction (Acute 06/05/14) exacerbation 03/2014 [facility]; FEV1 1.6 (58& pred; 62% FVC) no response to bronchodilators Gastro-esophageal reflux disease without esophagitis (Acute 08/25/11) responds to PPI, unable to stop 02/2017 Type 2 diabetes mellitus with hyperglycemia (Acute 10/12/15) 03/2014 hospital A1C 7%; goal A1c<7.5 Liver cirrhosis (Chronic) Chronic hepatitis (Acute 05/09/93) Essential hypertension (Chronic) Nonalcoholic steatohepatitis (BUI) (Chronic) [place] [place] 02/20/19. Stroke (Chronic) Depressive disorder (Chronic) Intermittent. Polyarthritis (Acute) Unspecified visual disturbance (Acute) [facility] [place] opthalmology Unspecified visual field defects (Acute) Exophoria (Acute) Benign paroxysmal positional vertigo of right ear (Acute) Referred otalgia of right ear (Acute) Neck pain (Acute 06/29/16) Steroid-induced hyperglycemia (Acute 03/09/14) Uncontrolled type 2 diabetes mellitus without complication, with long-term current use of insulin (Acute) Submandibular sialoadenitis (Acute 06/29/16) 06/29/16 Right flank pain (Acute 07/31/16) Other sleep disturbances (Acute 08/16/12) when back hurts and left knee/leg throb, sleep is disturbed Mechanical low back pain (Acute 08/02/08) DAILY PAIN SINCE FALL ON ICE AT WORK AUG 02, 2008 WC; re-injured 06/17/12 lifting at work; MRI 09/2012: MOD FACET ARTHROPATHY L5-S1, MILD L4-5 Tens unit 09/23/14; Functional Restor prg 07/2015 Diabetes mellitus (Chronic 04/16/14) 03/2014 hospital A1C 7%; goal A1c<7.5 Chronic rhinitis (Acute 08/25/11) Cervicalgia (Acute 06/29/16) 06/29/16 Arthropathy, unspecified (Acute 08/25/11) marjorie knees Acute renal failure (Acute 04/06/14) Neuropathy of finger (Chronic) Intermittent vertigo (Chronic) Trigger thumb of right hand (Chronic) Medical History (Updated 06/20/22 @ 12:02 by GOMEZ López) Hepatitis C Postmenopausal disorder Ongoing hot flashes. Serous otitis media Surgical History section x3 COLONOSCOPY W/ BX (10/10/17) elbow surg x2 ganglion wrist cyst removal x2 History of laryngoscopy 04/10/19 transnasal laryngoscopy salivary gland (02/23/17) [facility] [place], left submental UGI W/ BX (10/10/17) [facility] [place] Family History Father Heart disease Sister COPD (chronic obstructive pulmonary disease) Obese Brother Diabetes Essential hypertension Asthma Heart disease Hypertension Brother COPD (chronic obstructive pulmonary disease) Brother Alcohol abuse Brother Neoplasm non hodgkins lymphoma Mother COPD (chronic obstructive pulmonary disease) Asthma Heart disease Hypertension Social History Smoking/Tobacco Use Status: Current every day Tobacco: How many years used: 10 Second Hand Exposure: No Smoking risk assessment performed?: Yes Alcohol Intake: former Drug use: Never Substance use type: does not use Adopted: No Foster care: No Household members: family and other Details: mother Housing: house Number of Children: 3 Communication Needs: Corrective Lenses Do you need help understanding health information?: Rarely 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 Pets and animals: Yes Pets and animals: cat(s), dog(s) and bird(s) Sexually active: No Do you think of yourself as: straight/heterosexual Current gender identity: female What is your relationship status?: How often do you talk on the phone with friends or family?: three or more times per week How often do you get together with friends or relatives?: decline to answer How often do you attend oriental orthodox or jewish services?: 1-3 times per year Panel score (0-1 are the most socially isolated patients): 1 What type of physical activity do you participate in: none Meg/Hoahaoism: None Special meg needs: No Seatbelt use: always Helmet use: Yes Helmet use: other Details: N/A Drive 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 or 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 w/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: No Working smoke detector in home: Yes Fire extinguisher in home: Yes Carbon monox detector in home: Yes Do you feel safe at home: Yes Do you feel safe in your relationship?: Yes Exam Const General: cooperative, comfortable and no acute distress Neck Other: no midline tenderness Resp Effort & Inspection: normal respiratory effort Cardio Rate: regular rate Rhythm: regular rhythm Other: distal pulses intact Extrem Other: Neurovascularly intact, right shoulder tenderness Decreased abduction and external rotation Course Vital Signs Vital signs: Vital Signs Temperature 36.6 C 06/20/22 11:07 Pulse 104 H 06/20/22 11:07 Respiratory Rate 20 06/20/22 11:07 Blood Pressure 104/81 06/20/22 11:07 Pulse Oximetry 94 06/20/22 11:07 Temperature 36.6 C 06/20/22 11:07 Temperature Source Temporal Artery Scan 06/20/22 11:07 Pulse 104 H 06/20/22 11:07 Respiratory Rate 20 06/20/22 11:07 Respiratory Effort Non-Labored 06/20/22 11:10 Blood Pressure 104/81 06/20/22 11:07 Blood Pressure Position Sitting 06/20/22 11:07 Pulse Oximetry 94 06/20/22 11:07 Oxygen Delivery Method Room Air 06/20/22 11:07 Oxygen Flow Rate 0 06/20/22 11:07 Pain Level 10 06/20/22 11:11
== END 2022-06-20 12:46 | disposition home or self-care (01) ==
PROVIDERS: Emergency Provider Physician Assistant; PCP Family Medicine
DX: G89.11 Acute pain due to trauma (principal); M25.511 Pain in right shoulder; M19.011 Primary osteoarthritis, right shoulder; X50.0XXA Overexertion from strenuous movement or load, initial encounter; Z79.82 Long term (current) use of aspirin
CPT/HCPCS: 99283; 73030; 99284

== ENCOUNTER 2022-07-03 10:50 | Emergency (ER) | payer MEDICAID, SELFPAY ==
[2022-07-03 10:57] VITALS: BP 128/89; PULSE 106; RESP 18; TEMP 36.3; O2SAT 96
--- NOTE | 2022-07-03 11:15 | RT.EKG_ITS ---
APPROVED REPORT Exam: Resting ECG Reason for Exam: SOB Patient Location: E HR:98 bpm ECG Measurements Heart Rate 98 AXIS TX 187 P 36 QRSd 69 QRS 7 QT 327 T 61 QTc 418 Conclusion Sinus rhythm...normal P axis, V-rate 60- 99 Low voltage, extremity and precordial leads...extremity<0.5mV, precordial<1.0mV sinus rhythm at 98, normal axis, no STEMI, nondiagnostic EKG
--- NOTE | 2022-07-03 11:15 | DI.RAD_ITS ---
Exam(s) XR PORTABLE CHEST AP EXAM: XR PORTABLE CHEST AP CLINICAL HISTORY: cough, SOB. TECHNIQUE: 2D digital imaging was performed. COMPARISON: CR XR CHEST 2V PA LATERAL from 05/05/2022 FINDINGS: Single AP portable view. Heart size is upper normal. The mediastinum is not widened. Lungs are clear. No infiltrates nor obvious pleural effusions. IMPRESSION: No acute pulmonary findings on this single AP portable view of the chest. DATA REPOSITORY: RADIATION DOSE DELIVERED:
--- NOTE | 2022-07-03 11:45 | ED.GENADUL_ITS ---
Discharge Plan Disposition Patient Disposition: Home Condition: Stable Discharge Details Clinical Impression: Cough Primary Care Provider: Hai Lopez ED Provider: Jodee Álvarez Home Meds and New Rx's Prescriptions: Continued aspirin [Adult Aspirin Regimen] 81 mg tablet,delayed release (DR/EC) 81 mg PO DAILY Rx Instructions: Must be Enteric-Coated. EO paroxetine HCl [Paxil] 20 mg tablet 20 mg PO DAILY Qty: 90 3RF insulin lispro [Humalog KwikPen Insulin] 100 unit/mL insulin pen See Rx Instructions SC TID Qty: 15 3RF Rx Instructions: 4 units at breakfast, 6 units before lunch, 7 units before dinner subcut three times a day; pregabalin 150 mg capsule 150 mg PO BID Qty: 180 3RF Jardiance 25 mg tablet 25 mg PO DAILY Qty: 90 3RF Rx Instructions: to help control blood sugars, E11.65 fluticasone furoate 27.5 mcg/actuation spray,suspension 2 spray intranasal DAILY Qty: 9.1 1RF Rx Instructions: into each nostril Zyrtec 10 mg capsule 10 mg PO DAILY PRN (DME) FreeStyle Coby 14 Day Melvern Misc See Rx Instructions .ROUTE .MEDSUPPLY Qty: 1 0RF Rx Instructions: As directed (DME) pen needle, diabetic [BD Ultra-Fine Mini Pen Needle] 31 gauge x 3/16 needle See Dose Instructions .ROUTE .MEDSUPPLY Qty: 100 12RF Dose Instruction: As directed Rx Instructions: As directed insulin degludec [Tresiba FlexTouch U-200] 200 unit/mL (3 mL) insulin pen See Rx Instructions subcut BID Qty: 9 11RF Rx Instructions: 20 units qam and 56 units qhs subcut twice a day; (DME) FreeStyle Coby 2 Sensor Kit See Rx Instructions .ROUTE .COMPLEX Qty: 2 11RF Dose Instruction: USE DIRECTED TO KEEP HBA1C LESS THAN 6.5% Rx Instructions: USE DIRECTED TO KEEP HBA1C LESS THAN 6.5% albuterol sulfate [ProAir HFA] 90 mcg/actuation HFA aerosol inhaler 2 puff Inhalation Q4H PRN Qty: 1 6RF Rx Instructions: for SOB or wheezing, dispense with spacer meclizine 25 mg tablet 50 mg PO BID PRN (Reason: dizziness) Qty: 360 1RF Rx Instructions: insurance does not pay for 50 mg tablet, only the 25 mg tab. cc No Action albuterol sulfate 1.25 mg/3 mL solution for nebulization 1.25 mg IH QID PRN (Reason: shortness of breath or wheezing) Qty: 120 11RF lisinopril 20 mg tablet 20 mg PO DAILY Qty: 90 3RF Rx Instructions: to lower blood pressure under 130/85 omeprazole 40 mg capsule,delayed release(DR/EC) 40 mg PO DAILY Qty: 90 3RF Rx Instructions: once daily for GERD Discharge Instructions Instructions: Community Acquired Pneumonia (ED), Acute Cough (ED) Additional Instructions: Please return immediately to the emergency department if you develop any new or worsening symptoms, if your condition does not improve as expected, or if you become otherwise concerned. It is extremely important that you call soon as possible to make an appointment to be seen in follow-up for this visit by your primary care doctor. Referrals: Hai Lopez DO [Primary Care Provider] - Discharge Data Discharge Date/Time-TO BE ENTERED AT DEPARTURE: 07/03/22 14:17 Medical Decision Making Concern for PNA, covid, other viral resp infection, reactive airway disease, other. Exam/hx at this time is not c/w sepsis, pulmonary embolism, ACS, acute aortic pathology, meningitis, SAH. Plan for duoneb, screening labs, CXR, ekg. Pt reports some improvement after duoneb, states that she is ready to go home. CXR neg. Labs reviewed, no leuokcytosis. Plan for abx for clinical PNA, outpt f/u. I had a discussion with Patient regarding return to emergency department precautions, home care, and importance of outpatient follow-up. Pt verbalizes understanding of the plan and is amenable. Patient discharged to home with clear plan for outpatient follow-up. All questions were answered. Disposition decision was made weighing the risks and benefits of hospitalization versus outpatient treatment, the risk for further decompensation, and the patient's wishes. Medical Records Medical records reviewed: Yes I reviewed the patient's medical records. Imaging Data Radiologic Study: Attestation: I personally reviewed and interpreted this imaging study as follows: Radiologist's impression: EXAM:? XR PORTABLE CHEST AP CLINICAL HISTORY: ? cough, SOB. ? TECHNIQUE:? 2D digital imaging was performed. COMPARISON:? CR XR CHEST 2V PA ? LATERAL from 05/05/2022 FINDINGS: Single AP portable view. Heart size is upper normal.? The mediastinum is not widened. Lungs are clear.? No infiltrates nor obvious pleural effusions. IMPRESSION: No acute pulmonary findings on this single AP portable view of the chest. Lab Data Lab results reviewed: Yes I reviewed the patient's lab results. Labs: Laboratory Tests Range/Units 07/03/22 07/03/22 07/03/22 11:38 12:04 12:04 WBC (4.4-10.8) 10^3/uL 9.75 RBC (3.93-5.22) 10^6/uL 5.82 H Hgb (11.2-15.7) g/dL 17.1 H Hct (36.0-46.0) % 52.0 H MCV (80-95) fL 89 MCH (27.0-33.0) pg 29.4 MCHC (32.0-36.0) % 32.9 RDW (11.7-14.6) % 14.8 H Plt Count (130-400) 10^3/uL 149 MPV (8.0-11.0) fL 10.7 Immature Gran % 0.3 Neutrophils % 68.3 Lymphocytes % 22.2 Monocytes % 5.8 Eosinophils % 2.7 Basophils % 0.7 Nucleated RBC % (0.0-0.3) % 0.0 Absolute Neutrophils (1.2-6.7) 10^3/uL 6.66 Absolute Lymphocytes (1.2-3.4) 10^3/uL 2.16 Absolute Monocytes (0.1-0.8) 10^3/uL 0.57 Absolute Eosinophils (0.0-0.7) 10^3/uL 0.26 Absolute Basophils (0.0-0.2) 10^3/uL 0.07 Sodium (136-145) mmol/L 139 Potassium (3.5-5.1) mmol/L 4.4 Chloride (98-107) mmol/L 103 Carbon Dioxide (21.0-32.0) mmol/L 31.2 Anion Gap (3-11) mmol/L 4.8 BUN (7-18) mg/dL 9 Creatinine (0.55-1.02) mg/dL 0.7 Est GFR (CKD-EPI 2020) (mL/min/1.73m2) 97.72 Glucose (74-106) mg/dL 179 H Calcium (8.5-10.1) mg/dL 9.0 Magnesium (1.8-2.4) mg/dL 2.0 Total Bilirubin (0.2-1.0) mg/dL 0.5 AST (15-37) U/L 27 ALT (14-59) U/L 31 Alkaline Phosphatase (46-116) U/L 124 H Total Protein (6.4-8.2) g/dL 7.4 Albumin (3.4-5.0) g/dL 3.8 COVID-19 Source Nasopharynx SARS-CoV-2 (PCR) (Negative) Negative Influenza Type A (PCR) (Negative) Negative Influenza Type B (PCR) (Negative) Negative RSV (PCR) (Negative) Negative ECG Data Attestation: I personally reviewed and interpreted this ECG (s) as follows: Interpretation: EKG shows sinus rhythm at 98, normal axis, no STEMI, nondiagnostic EKG HPI General Mode of arrival: ambulatory . Date/Time Provider Initiated Documentation: 07/03/22 11:10 . Limitations to Documentation: no limitations . Information obtained by: patient, RN notes reviewed and old records reviewed . HPI Narrative: Mary Beth Holman is a 61-year-old woman with a history of stroke, asthma, hyperlipidemia, GERD, diabetes, hypertension, [place], depression presenting to the emergency department with shortness of breath and cough. Patient reports that she developed cough, shortness of breath, runny nose, sore throat, headache, and fever. Patient reports fever three days ago 103. Patient reports that since then symptoms have been waxing and waning but persistent. She notes fever 100.5 at another time, but no higher fevers. She reports headaches, intermittent, not the worst of her life. She denies any other new pain. She reports that shortness of breath is mild, not currently present. She reports some mild diarrhea. Denies vomiting, numbness, weakness, rash, swelling. Reports that she has had similar headaches in the past with illnesses, including when she had pneumonia which she reports was within the last few months. Related Data Home Medications Medication Instructions Recorded Confirmed aspirin 81 mg tablet,delayed 81 mg PO DAILY 12/26/19 08/09/22 release (Adult Aspirin Regimen) flash glucose scanning reader #1 ea 07/22/20 08/09/22 (FreeStyle Coby 14 Day Melvern) paroxetine HCl 20 mg tablet (Paxil) 20 mg PO DAILY #90 tabs 06/14/21 08/09/22 insulin lispro 100 unit/mL See Rx Instructions subcut TID #15 11/01/21 08/09/22 subcutaneous pen (Humalog KwikPen mL (U-100) Insulin) pen needle, diabetic 31 gauge x #100 ea 11/03/21 08/09/22/ (BD Ultra-Fine Mini Pen Needle) empagliflozin 25 mg tablet 25 mg PO DAILY #90 tabs 02/03/22 08/09/22 (Jardiance) pregabalin 150 mg capsule 150 mg PO BID #180 caps 02/03/22 08/09/22 insulin degludec 200 unit/mL (3 See Rx Instructions subcut BID #9 02/06/22 08/09/22 mL) subcutaneous pen (Tresiba mL FlexTouch U-200 insulin) fluticasone furoate 27.5 2 spray intranasal DAILY #9.1 mL 03/14/22 08/09/22 mcg/actuation nasal spray,suspension cetirizine 10 mg capsule (Zyrtec) 10 mg PO DAILY PRN 03/24/22 08/09/22 flash glucose sensor (FreeStyle #2 kits 04/10/22 08/09/22 Coby 2 Sensor kit) albuterol sulfate 90 mcg/actuation 2 puff inhalation Q4H PRN 04/27/22 08/09/22 aerosol inhaler (ProAir HFA) wheezing, SOB #1 puff meclizine 25 mg tablet 50 mg PO BID PRN dizziness #360 05/25/22 08/09/22 tabs albuterol sulfate 1.25 mg/3 mL 1.25 mg (3 mL) inhalation QID PRN 07/07/22 08/09/22 solution for nebulization shortness of breath or wheezing #120 mL lisinopril 20 mg tablet 20 mg PO DAILY #90 tab-caps 07/27/22 08/09/22 omeprazole 40 mg capsule,delayed 40 mg PO DAILY #90 tab-caps 07/27/22 08/09/22 release Previous Rx's Medication Instructions Recorded flash glucose scanning reader #1 ea 07/22/20 (FreeStyle Coby 14 Day Melvern) paroxetine HCl 20 mg tablet (Paxil) 20 mg PO DAILY #90 tabs 06/14/21 insulin lispro 100 unit/mL See Rx Instructions subcut TID #15 11/01/21 subcutaneous pen (Humalog KwikPen mL (U-100) Insulin) pen needle, diabetic 31 gauge x #100 ea 11/03/2109/21 (BD Ultra-Fine Mini Pen Needle) empagliflozin 25 mg tablet 25 mg PO DAILY #90 tabs 02/03/22 (Jardiance) pregabalin 150 mg capsule 150 mg PO BID #180 caps 02/03/22 insulin degludec 200 unit/mL (3 See Rx Instructions subcut BID #9 02/06/22 mL) subcutaneous pen (Tresiba mL FlexTouch U-200 insulin) fluticasone furoate 27.5 2 spray intranasal DAILY #9.1 mL 03/14/22 mcg/actuation nasal spray,suspension flash glucose sensor (FreeStyle #2 kits 04/10/22 Coby 2 Sensor kit) albuterol sulfate 90 mcg/actuation 2 puff inhalation Q4H PRN 04/27/22 aerosol inhaler (ProAir HFA) wheezing, SOB #1 puff meclizine 25 mg tablet 50 mg PO BID PRN dizziness #360 05/25/22 tabs albuterol sulfate 1.25 mg/3 mL 1.25 mg (3 mL) inhalation QID PRN 07/07/22 solution for nebulization shortness of breath or wheezing #120 mL lisinopril 20 mg tablet 20 mg PO DAILY #90 tab-caps 07/27/22 omeprazole 40 mg capsule,delayed 40 mg PO DAILY #90 tab-caps 07/27/22 release Allergies Allergy/AdvReac Type Severity Reaction Status Date / Time fluoxetine HCl [From Prozac] Allergy Intermediate rash Verified 08/09/22 12:56 metformin AdvReac Severe diarrhea Verified 08/09/22 12:56 rofecoxib [From Vioxx] AdvReac Severe bleeding Verified 08/09/22 12:56 aspirin AdvReac Intermediate GI Upset Verified 08/09/22 12:56 celecoxib [From Celebrex] AdvReac Intermediate GI Upset Verified 08/09/22 12:56 naproxen AdvReac Intermediate Stomach Verified 08/09/22 12:56 intolerance General Stated Complaint: RespSymp HOSSEIN: 4 Review of Systems Narrative: Constitutional: reports fevers Eyes: denies eye pain ENT: denies ear pain, dental pain, sore throat Cardiovascular: denies chest pain, edema Respiratory: reports SOB, cough GI: denies abdominal pain, vomiting, diarrhea : denies flank pain MSK: denies back pain, neck pain, arthralgias, myalgias Skin: denies rash Neuro: denies numbness, weakness, reports headaches PFSH All Active Problems RUQ pain (Acute) Tobacco use disorder (Acute) Acute pancreatitis (Acute 02/23/22) Cerebral aneurysm (Acute 04/28/22) LICA Vertigo (Acute) Cataract (Chronic) History of stroke (Acute) Sensorineural hearing loss (SNHL) of both ears (Acute) Balance disorder (Acute) Episodes of ataxic gait, per pt report (as if drunk), and veering off-road x1. Presumed BPV, but re-assessing. Allergic sinusitis (Acute) Acute bronchitis (Acute) Hypoglycemia (Acute) Myofascial muscle pain (Acute) Osteoarthritis of knee (Chronic) Asthma (Chronic) Diagnosed in 1993 Hyperlipidemia (Chronic) Obesity (Chronic) Hypertriglyceridemia (Chronic) Benign paroxysmal vertigo (Acute) Dr Marshall testing 2000; head CT 10/06/02 & 03/05/06; HAD IN PAST; AGAIN 02/2012; again 08/08/13 to L Chronic airway obstruction (Acute 06/05/14) exacerbation 03/2014 [facility]; FEV1 1.6 (58& pred; 62% FVC) no response to bronchodilators Gastro-esophageal reflux disease without esophagitis (Acute 08/25/11) responds to PPI, unable to stop 02/2017 Type 2 diabetes mellitus with hyperglycemia (Acute 10/12/15) 03/2014 hospital A1C 7%; goal A1c<7.5 Liver cirrhosis (Chronic) Chronic hepatitis (Acute 05/09/93) Essential hypertension (Chronic) Nonalcoholic steatohepatitis ([place]) (Chronic) [place] [place]. Stroke (Chronic) Depressive disorder (Chronic) Intermittent. Polyarthritis (Acute) Unspecified visual disturbance (Acute) [facility] [place] Unspecified visual field defects (Acute) Exophoria (Acute) Benign paroxysmal positional vertigo of right ear (Acute) Referred otalgia of right ear (Acute) Neck pain (Acute 06/29/16) Steroid-induced hyperglycemia (Acute 03/09/14) Uncontrolled type 2 diabetes mellitus without complication, with long-term current use of insulin (Acute) Submandibular sialoadenitis (Acute 06/29/16) 06/29/16 Right flank pain (Acute 07/31/16) Other sleep disturbances (Acute 08/16/12) when back hurts and left knee/leg throb, sleep is disturbed Mechanical low back pain (Acute 08/02/08) DAILY PAIN SINCE FALL ON ICE AT WORK AUG 02, 2008 WC; re-injured 06/17/12 lifting at work; MRI 09/2012: MOD FACET ARTHROPATHY L5-S1, MILD L4-5 Tens unit 09/23/14; Functional Restor prg 07/2015 Diabetes mellitus (Chronic 04/16/14) 03/2014 hospital A1C 7%; goal A1c<7.5 Chronic rhinitis (Acute 08/25/11) Cervicalgia (Acute 06/29/16) 06/29/16 Arthropathy, unspecified (Acute 08/25/11) marjorie knees Acute renal failure (Acute 04/06/14) Neuropathy of finger (Chronic) Intermittent vertigo (Chronic) Trigger thumb of right hand (Chronic) Medical History Ex-smoker for more than 1 year resumed per [facility] [place] antcmpvvk08/8/22 Hepatitis C Postmenopausal disorder Ongoing hot flashes. Serous otitis media Surgical History section x3 COLONOSCOPY W/ BX (10/10/17) elbow surg x2 ganglion wrist cyst removal x2 History of laryngoscopy 04/10/19 transnasal laryngoscopy salivary gland (02/23/17) [facility] [place], left submental UGI W/ BX (10/10/17) [facility] [place] Family History Father Heart disease Sister COPD (chronic obstructive pulmonary disease) Obese Brother Diabetes Essential hypertension Asthma Heart disease Hypertension Brother COPD (chronic obstructive pulmonary disease) Brother Alcohol abuse Brother Neoplasm non hodgkins lymphoma Mother COPD (chronic obstructive pulmonary disease) Asthma Heart disease Hypertension Social History Smoking/Tobacco Use Status: Current every day Tobacco Type: cigarettes Tobacco: How many years used: 10 Second Hand Exposure: No Smoking risk assessment performed?: Yes Alcohol Intake: current Drug use: Never Substance use type: does not use Adopted: No Foster care: No Household members: family and other Details: mother Housing: house Number of Children: 3 Communication Needs: Corrective Lenses Do you need help understanding health information?: Rarely current occupation: [employer] Pets and animals: Yes Pets and animals: cat(s), dog(s) and bird(s) Sexually active: No Do you think of yourself as: straight/heterosexual Current gender identity: female What is your relationship status?: How often do you talk on the phone with friends or family?: three or more times per week How often do you get together with friends or relatives?: decline to answer How often do you attend religion or latter day services?: 1-3 times per year Panel score (0-1 are the most socially isolated patients): 1 What type of physical activity do you participate in: none Meg/Muslim: None Special meg needs: No Seatbelt use: always Helmet use: Yes Helmet use: other Details: N/A Drive 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 Working smoke detector in home: Yes Fire extinguisher in home: Yes Carbon monox detector in home: Yes Do you feel safe at home: Yes Do you feel safe in your relationship?: Yes Exam Narrative Exam Narrative: Constitutional: well and [id number], pleasant, conversing normally HENT: head atraumatic/normocephalic/normal inspection, mucous membranes moist Eyes: conjunctiva normal, sclera normal, pupils 3mm b/l Neck: no stridor, normal ROM, trachea midline Chest: normal inspection Resp: normal work of breathing, course breath sounds b/l, no wheezes or rales Cardio: normal rate, normal rhythm, no murmur appreciated GI: abdomen soft, non-tender, non-distended Back: normal inspection, no rash Skin: warm, dry, normal color, no rash Neuro: alert, not altered, grossly non-focal, normal tone Ext: no edema, no posterior calf TTP Psych: normal mood, normal affect, normal behavior Course Vital Signs Vital signs: Vital Signs Temperature 36.3 C L 07/03/22 10:57 Pulse 106 H 07/03/22 10:57 Respiratory Rate 18 07/03/22 10:57 Blood Pressure 128/89 07/03/22 10:57 Pulse Oximetry 96 07/03/22 10:57 Temperature 36.3 C L 07/03/22 10:57 Temperature Source Skin 07/03/22 10:57 Pulse 106 H 07/03/22 10:57 Respiratory Rate 18 07/03/22 10:57 Respiratory Effort 07/03/22 11:00 Blood Pressure 128/89 07/03/22 10:57 Blood Pressure Position Sitting 07/03/22 10:57 Pulse Oximetry 96 07/03/22 10:57 Oxygen Delivery Method Room Air 07/03/22 10:57 Oxygen Flow Rate 0 07/03/22 10:57 Pain Level 0 07/03/22 10:57
[2022-07-03 12:11] LABS: Abs Immature Grans 0.03 10^3/uL (0.0-0.06); Absolute Basophil Count 0.07 10^3/uL (0.0-0.2); Absolute Eosinophil Count 0.26 10^3/uL (0.0-0.7); Absolute Lymphocyte Count 2.16 10^3/uL (1.2-3.4); Absolute Monocyte Count 0.57 10^3/uL (0.1-0.8); Absolute Neutrophil Count 6.66 10^3/uL (1.2-6.7); Basophils % 0.7; Eosinophils % 2.7; HGB 17.1 g/dL (11.2-15.7); Immature Grans % 0.3; Lymphocytes % 22.2; MCH 29.4 pg (27.0-33.0); MCHC 32.9 % (32.0-36.0); MCV 89 fL (80-95); MPV 10.7 fL (8.0-11.0); Monocytes % 5.8; Neutrophils % 68.3; Platelet Count 149 10^3/uL (130-400); RBC 5.82 10^6/uL (3.93-5.22); RDW 14.8 % (11.7-14.6); RDW-SD 48.9 fL; WBC 9.75 10^3/uL (4.4-10.8)
[2022-07-03] MEDS: Albuterol/Ipratropium 3 ML UPD VIAL UPD (12:15)
[2022-07-03 12:23] LABS: COVID-19 PCR Negative (Negative); Influenza A PCR Negative (Negative); Influenza B PCR Negative (Negative); RSV PCR Negative (Negative)
[2022-07-03 12:25] LABS: ALT 31 U/L (14-59); AST 27 U/L (15-37); Albumin 3.8 g/dL (3.4-5.0); Alkaline Phosphatase 124 U/L (46-116); Anion Gap 4.8 mmol/L (3-11); BUN 9 mg/dL (7-18); Bilirubin, Total 0.5 mg/dL (0.2-1.0); CO2 31.2 mmol/L (21.0-32.0); CREATININE 0.7 mg/dL (0.55-1.02); Chloride 103 mmol/L (98-107); Estimated GFR 97.72 (mL/min/1.73m2); Glucose 179 mg/dL (74-106); Potassium 4.4 mmol/L (3.5-5.1); Sodium 139 mmol/L (136-145); Total Protein 7.4 g/dL (6.4-8.2)
[2022-07-03 12:28] LABS: Source Nasopharynx
--- NOTE | 2022-07-03 12:36 | DI.VRAD_ITS ---
PROCEDURE INFORMATION: Exam: XR Chest Exam date and time: 07/03/2022 11:51 AM Age: 61 years old Clinical indication: Cough and shortness of breath TECHNIQUE: Imaging protocol: Radiologic exam of the chest. Views: 1 view. COMPARISON: CR XR CHEST 2V PA LATERAL 05/05/2022 9:37 AM FINDINGS: Lungs: The lung parenchyma is clear. Pleural spaces: No pneumothorax. No pleural effusion. Heart/Mediastinum: The cardiomediastinal silhouette is within normal limits. Bones/joints: Unremarkable. IMPRESSION: No acute cardiopulmonary abnormality. Dictated and Authenticated by: Max Resendez MD. Ordering:KIT Ellsworth MD
[2022-07-03 12:37] VITALS: BP 119/81; PULSE 93; RESP 18; TEMP 36.4; O2SAT 94
[2022-07-03 14:14] VITALS: BP 127/85; PULSE 96; RESP 18; TEMP 36.7; O2SAT 92
== END 2022-07-03 14:17 | disposition home or self-care (01) ==
PROVIDERS: Emergency Provider Student in an Organized Health Care Education/Training Program; PCP Family Medicine
DX: R05.9 Cough, unspecified (principal); J44.9 Chronic obstructive pulmonary disease, unspecified; E78.00 Pure hypercholesterolemia, unspecified; I10 Essential (primary) hypertension; F32.A Depression, unspecified; R06.02 Shortness of breath; Z86.73 Personal history of transient ischemic attack (TIA), and cerebral infarction without residual deficits; Z20.822 Contact with and (suspected) exposure to COVID-19; E11.65 Type 2 diabetes mellitus with hyperglycemia
CPT/HCPCS: 80053; 87637; 93005; 99284; 71045; 83735; 85025; 93010; 99285; J7620

== ENCOUNTER 2022-07-12 10:30 | Outpatient (REF) | payer MEDICAID, SELFPAY | END 2022-07-12 10:31 | disposition home or self-care (01) | LOC: LBN 10:30 | PROVIDERS: PCP Family Medicine; Visit Provider Nurse Practitioner | DX: R30.0 Dysuria (principal); R10.31 Right lower quadrant pain; R10.11 Right upper quadrant pain | CPT/HCPCS: 87086 ==

== ENCOUNTER 2022-07-12 12:00 | Outpatient (CLI) | payer MEDICAID, SELFPAY ==
[2022-07-12 11:25] LABS: ALT 20 U/L (14-59); AST 17 U/L (15-37); Alkaline Phosphatase 130 U/L (46-116); Anion Gap 6.8 mmol/L (3-11); BUN 18 mg/dL (7-18); Bilirubin, Total 0.4 mg/dL (0.2-1.0); CO2 28.2 mmol/L (21.0-32.0); CREATININE 0.9 mg/dL (0.55-1.02); Calcium 9.1 mg/dL (8.5-10.1); Chloride 104 mmol/L (98-107); Estimated GFR 72.28 (mL/min/1.73m2); Glucose 262 mg/dL (74-106); Lipase 137 U/L (73-393); Potassium 4.3 mmol/L (3.5-5.1); Sodium 139 mmol/L (136-145); Total Protein 7.9 g/dL (6.4-8.2)
== END 2022-07-12 12:01 | disposition home or self-care (01) ==
LOC: LBO 12:01
PROVIDERS: PCP Family Medicine; Visit Provider Nurse Practitioner
DX: R10.31 Right lower quadrant pain (principal); R10.11 Right upper quadrant pain
CPT/HCPCS: 36415; 80053; 83690

== ENCOUNTER 2022-07-13 01:14 | Outpatient (CLI) | payer MEDICAID, SELFPAY ==
--- NOTE | 2022-07-13 07:31 | DI.US_ITS ---
Exam(s) US ABDOMEN EXAM: US ABDOMEN CLINICAL HISTORY: RUQ pain,r10.11 TECHNIQUE: Ultrasound of complete upper abdomen performed using standard protocol. COMPARISON: CT CT ABDOMEN PELVIS WO from 12/05/2021 FINDINGS: There is no ascites evident. LIVER: Mildly hyperechoic indicating mild steatosis. No discrete focal lesions. Upper normal size l iver. GALLBLADDER/BILIARY: There are no gallstones. No gallbladder wall edema nor pericholecystic fluid. The common hepatic duct isnot dilated, measuring 3mm at the level of david hepatis. PANCREAS: There is no evidence of pancreatic mass nor dilatation of the pancreatic duct. SPLEEN: Upper normal size. No Debby splenic fluid. No lesions in the spleen seen. KIDNEYS:Kidneys exhibit normal size with no evidence of solid mass, calculus, nor hydronephrosis. No cortical cysts evident. ABDOMINAL AORTA: There is no evidence of abdominal aortic aneurysm. IVC: Normal diameter where visualized. IMPRESSION: 1. No evidence of cholelithiasis nor dilatation of the biliary tree. 2. Mild hepatic steatosis.. Spleen size upper normal. No lesions in the liver and spleen. 3. There is no ascites. DATA REPOSITORY:
== END 2022-07-13 01:34 ==
LOC: DI 01:14
PROVIDERS: PCP Family Medicine; Visit Provider Nurse Practitioner
DX: R10.11 Right upper quadrant pain (principal); K76.0 Fatty (change of) liver, not elsewhere classified
CPT/HCPCS: 76700

== ENCOUNTER 2022-07-24 01:35 | Outpatient (CLI) | payer MEDICAID, SELFPAY ==
--- NOTE | 2022-07-24 07:00 | DI.CT_ITS ---
Exam(s) CT ABDOMEN PELVIS W EXAM: CT ABDOMEN PELVIS W CLINICAL HISTORY: ruq Abdominal pain, neg us,r10.11 TECHNIQUE: Imaging Protocol: Axial computed tomography images with coronal and sagittal reformatted images were created and reviewed CONTRAST MATERIAL: Intravenous: Omnipaque 350 Contrast volume:100 mL Oral: Yes COMPARISON: CT CT ABDOMEN PELVIS WO from 12/05/[address] BRAIN NECK CTA from 04/28/2022 US US ABDOMEN from 07/13/2022 FINDINGS: ABDOMEN: Lung Bases: Normal where visualized. Liver: Normal density. No measurable mass. The liver measures 18.8 cm long. Portal, Superior Mesenteric, and Splenic Veins: Unremarkable. Gallbladder and Biliary Tract: No radiodense calculus or dilation. Pancreas: Normal density, no abnormal calcifications or inflammatory process. Spleen: Upper limits of normal in size. Adrenals: No masses seen. Kidneys: Normal size, contour and axis. No radiodense stones or obstructive uropathy. No masses seen. Abdominal Aorta: Abdominal portion non-dilated. Atherosclerosis is present. Bowel: There is diverticulosis seen in the colon but no evidence of acute diverticulitis. No evidenc e of bowel obstruction is present. There is no significant bowel wall thickening. There is again se en a fat density lesion in the 2nd portion of the duodenum likely reflecting lipoma. Appendix is unr emarkable. Peritoneal Cavity: No ascites, collection or mesenteric inflammatory response. No free air. Lymph Nodes: Within normal limits. Bones: Within normal limits for the patient's age. Soft Tissues: Unremarkable. PELVIS: Bladder: Symmetric distention, no gross wall thickening. Reproductive Organs: Unremarkable as visualized. Lymph Nodes: Within normal limits. Bones: Within normal limits for the patient's age. IMPRESSION: No acute abdominal or pelvic process. RADIATION DOSE DELIVERED: 1,099.39mGy.cm Total DLP DATA REPOSITORY: All CT scans at this facility are submitted to the National Radiology Data Registry (NRDR) Dose Index Registry (DIR) with the [employer] (ACR). RADIATION OPTIMIZATION: All CT scans at this facility use at least one of these dose optimization te chniques: automated exposure control; mA and/or kV adjustment per patient size (includes targeted exa ms where dose is matched to clinical indication); or iterative reconstruction.
[2022-07-24 09:02] LABS: CREATININE 0.8 mg/dL (0.55-1.02); Estimated GFR 83.26 (mL/min/1.73m2)
[2022-07-24] MEDS: Omnipaque 350 MG/ML 100 ML BTL IJ (10:46)
[2022-07-24] MEDS: Normal Saline - Diluent 50 ML VIAL IJ (10:47)
[2022-07-24] MEDS: Normal Saline Flush 10 ML SYR IVP (10:48)
[2022-07-24] MEDS: Barium Sulfate 2% W/V-Berry Smoothie 450 ML BTL PO (10:49)
== END 2022-07-24 01:55 ==
LOC: DI 01:35
PROVIDERS: PCP Family Medicine; Visit Provider Family Medicine
DX: R10.11 Right upper quadrant pain (principal)
CPT/HCPCS: 74177; 82565; J3490

== ENCOUNTER 2023-01-23 11:25 | Outpatient (REF) | payer MEDICAID, SELFPAY ==
[2023-01-23 15:20] LABS: Source Nasopharynx
[2023-01-23 20:24] LABS: COVID-19 PCR Negative (Negative)
== END 2023-01-23 11:26 | disposition home or self-care (01) ==
LOC: LBN 11:25
PROVIDERS: PCP Family Medicine; Visit Provider Family Medicine
DX: J20.9 Acute bronchitis, unspecified (principal); E11.9 Type 2 diabetes mellitus without complications
CPT/HCPCS: 87635

== ENCOUNTER 2023-01-23 16:00 | Outpatient (CLI) | payer MEDICAID, SELFPAY ==
--- NOTE | 2023-01-23 10:45 | DI.RAD_ITS ---
Exam(s) XR CHEST 2V PA LATERAL EXAM: XR CHEST 2V PA LATERAL CLINICAL HISTORY: Fever and cough, rhonchi on exam, R05.9 TECHNIQUE: 2D digital imaging was performed of the chest. Two images were obtained. PA and lateral views were obtained. COMPARISON: CR XR CHEST 2V PA LATERAL from 05/05/2022 CR,XR XR PORTABLE CHEST AP from 07/03/2022 FINDINGS: MEDIASTINUM: Normal. HEART: Normal. PULMONARY VASCULATURE: Normal. LUNGS: Clear. PLEURAL SPACE: No pleural effusion or pneumothorax. BONE:Within normal limits for the patient's age. OTHER FINDINGS:Normal. IMPRESSION: No acute pulmonary findings. DATA REPOSITORY: RADIATION DOSE DELIVERED:
== END 2023-01-23 16:20 ==
LOC: DI 16:01
PROVIDERS: PCP Family Medicine; Visit Provider Family Medicine
DX: R05.9 Cough, unspecified (principal)
CPT/HCPCS: 71046

== ENCOUNTER 2023-04-10 13:01 | Outpatient (CLI) | payer MEDICAID, SELFPAY ==
[2023-04-10 14:51] LABS: Abs Immature Grans 0.03 10^3/uL (0.0-0.06); Absolute Basophil Count 0.07 10^3/uL (0.0-0.2); Absolute Eosinophil Count 0.16 10^3/uL (0.0-0.7); Absolute Monocyte Count 0.51 10^3/uL (0.1-0.8); Absolute Neutrophil Count 7.67 10^3/uL (1.2-6.7); Basophils % 0.7; Eosinophils % 1.5; HCT 52.9 % (36.0-46.0); HGB 17.5 g/dL (11.2-15.7); Immature Grans % 0.3; Lymphocytes % 21.4; MCH 27.6 pg (27.0-33.0); MCHC 33.1 % (32.0-36.0); MCV 83 fL (80-95); MPV 10.4 fL (8.0-11.0); Monocytes % 4.7; Neutrophils % 71.4; Platelet Count 181 10^3/uL (130-400); RBC 6.35 10^6/uL (3.93-5.22); RDW 15.9 % (11.7-14.6); RDW-SD 47.2 fL; WBC 10.74 10^3/uL (4.4-10.8)
[2023-04-10 15:09] LABS: ALT 19 U/L (14-59); AST 17 U/L (15-37); Albumin 3.8 g/dL (3.4-5.0); Alkaline Phosphatase 114 U/L (46-116); Anion Gap 8.5 mmol/L (3-11); BUN 15 mg/dL (7-18); Bilirubin, Total 0.5 mg/dL (0.2-1.0); CO2 27.5 mmol/L (21.0-32.0); Calcium 9.5 mg/dL (8.5-10.1); Chloride 100 mmol/L (98-107); Glucose 339 mg/dL (74-106); Lipase 120 U/L (16-77); Sodium 136 mmol/L (136-145); Total Protein 7.9 g/dL (6.4-8.2)
== END 2023-04-10 13:02 | disposition home or self-care (01) ==
LOC: LBO 13:01
PROVIDERS: PCP Family Medicine; Visit Provider Family Medicine
DX: K52.9 Noninfective gastroenteritis and colitis, unspecified (principal)
CPT/HCPCS: 36415; 80053; 83690; 85025

== ENCOUNTER → 2023-04-11 02:11 | Outpatient (CLI) | payer MEDICAID, SELFPAY ==
--- NOTE | 2023-04-11 07:45 | DI.CT_ITS ---
Exam(s) CT ABDOMEN PELVIS W EXAM: CT ABDOMEN PELVIS W CLINICAL HISTORY: Eval for pancreatitis,appenDICITIS,divertic. TECHNIQUE: Imaging Protocol: Axial computed tomography images with coronal and sagittal reformatted images were created and reviewed CONTRAST MATERIAL: Intravenous: Omnipaque-350 100cc Oral: None COMPARISON: CT CT ABDOMEN PELVIS W from 07/24/2022 FINDINGS: VISUALIZED LUNG BASES: No nodules nor pleural effusions evident. There is very slight thickening of the anterior pericardium when compared to the prior study, exhibiting thickness of 4 mm, not previous ly present and indicating presence of small pericardial effusion. Heart size is normal. ABDOMEN: There is no ascites. LIVER: Mildly prominent in size. There are no focal hepatic lesions evident. No dilated intrahepati c ducts. GALLBLADDER/BILIARY: No obvious gallbladder pathology. CBD is not dilated. PANCREAS: No evidence of pancreatic mass nor dilatation of the pancreatic duct. SPLEEN: Upper normal size measuring 12.5 cm cephalocaudal. No splenic lesions evident. No splenic c alcifications. Splenic and portal veins are patent. ADRENALS: There are no significant adrenal masses. KIDNEYS:No cysts evident. No solid renal masses. No calculi nor hydronephrosis.. ABDOMINAL AORTA: Abdominal aorta is not enlarged. LYMPH NODES:Slightly prominent portacaval lymph node is unchanged. No prominent retroperitoneal jamie opathy. No prominent para-aortic adenopathy. ABDOMINAL WALL: No evidence of significant anterior abdominal wall nor inguinal hernia. GI: There is no evidence of bowel obstruction, free air, nor abscess. PELVIS: GI: No evidence of appendicitis.Diverticulosis in the sigmoid but no evidence of acute diverticulitis . No free fluid. LYMPH NODES: There is no intrapelvic nor inguinal adenopathy. REPRODUCTIVE: Uterus and adnexal regions appear unremarkable. URINARY BLADDER: Mild thickening of the anterior wall the urinary bladder noted. No obvious discerni ble mass. No bladder diverticuli. No bladder calculi. OSSEOUS: No fractures and no significant osseous lesions. IMPRESSION: 1. No significant acute findings in the abdomen pelvis. 2. Slight thickening of the pericardium (4 mm) noted, more so than previous and probably indicating a small pericardial effusion. Heart size is normal. 3. Liver and spleen upper normal size. No ascites. 4. Sigmoid diverticulosis without evidence of acute diverticulitis. The appendix is seen and appears unremarkable. 5. No CT evidence of pancreatitis. No pancreatic masses. No dilatation of the pancreatic duct. RADIATION DOSE DELIVERED: 1,052.5mGy.cm Total DLP DATA REPOSITORY: All CT scans at this facility are submitted to the National Radiology Data Registry (NRDR) Dose Index Registry (DIR) with the [employer] (ACR). RADIATION OPTIMIZATION: All CT scans at this facility use at least one of these dose optimization te chniques: automated exposure control; mA and/or kV adjustment per patient size (includes targeted exa ms where dose is matched to clinical indication); or iterative reconstruction.
[2023-04-11] MEDS: Barium Sulfate 2% W/V-Berry Smoothie 450 ML BTL 900 ML PO (09:56)
[2023-04-11] MEDS: Normal Saline - Diluent 50 ML VIAL IJ (11:38)
[2023-04-11] MEDS: Omnipaque 350 MG/ML 500 ML BTL-Imaging package IJ (11:39)
[2023-04-11] MEDS: Normal Saline Flush 10 ML SYR IVP (11:40)
== END ==
PROVIDERS: PCP Family Medicine; Visit Provider Family Medicine
DX: K57.30 Diverticulosis of large intestine without perforation or abscess without bleeding (principal)
CPT/HCPCS: 74177

== ENCOUNTER 2023-05-05 15:02 | Emergency (ER) | payer MEDICAID, SELFPAY ==
[2023-05-05 15:10] VITALS: BP 135/76; PULSE 90; RESP 18; TEMP 36.8; O2SAT 100
--- NOTE | 2023-05-05 15:28 | ED.GENADUL_ITS ---
Discharge Plan Disposition Patient Disposition: Home Condition: Good Discharge Details Clinical Impression: Plantar fasciitis of left foot Primary Care Provider: Hai Lopez ED Provider: Carmen Leon Home Meds and New Rx's Prescriptions: Continued aspirin [Adult Aspirin Regimen] 81 mg tablet,delayed release (DR/EC) 81 mg PO DAILY Rx Instructions: Must be Enteric-Coated. EO albuterol sulfate 1.25 mg/3 mL solution for nebulization 1.25 mg IH QID PRN (Reason: shortness of breath or wheezing) Qty: 120 11RF albuterol sulfate [Ventolin HFA] 90 mcg/actuation HFA aerosol inhaler 2 puff inhalation Q6H PRN (Reason: shortness of breath or wheezing) Qty: 8.5 6RF clopidogrel 75 mg tablet 75 mg PO DAILY Qty: 90 3RF Jardiance 25 mg tablet 25 mg PO DAILY Qty: 90 3RF pantoprazole 40 mg tablet,delayed release (DR/EC) 40 mg PO DAILY Qty: 90 3RF paroxetine HCl [Paxil] 20 mg tablet 20 mg PO DAILY Qty: 90 3RF insulin degludec [Tresiba FlexTouch U-200] 200 unit/mL (3 mL) insulin pen See Rx Instructions subcut BID Qty: 9 3RF Rx Instructions: 25 units QAM, 56 units QHS subcutaneously twice a day; fluticasone furoate 27.5 mcg/actuation spray,suspension 2 spray intranasal DAILY Qty: 9.1 1RF Rx Instructions: into each nostril Zyrtec 10 mg capsule 10 mg PO DAILY PRN ondansetron 4 mg tablet,disintegrating 4 mg PO Q8H PRN (Reason: nausea and vomiting) Qty: 30 0RF (DME) FreeStyle Coby 14 Day [place] Misc See Rx Instructions .ROUTE .MEDSUPPLY Qty: 1 0RF Rx Instructions: As directed (DME) pen needle, diabetic [BD Ultra-Fine Mini Pen Needle] 31 gauge x 3/16 needle See Dose Instructions .ROUTE .MEDSUPPLY Qty: 100 12RF Dose Instruction: As directed Rx Instructions: As directed acetaminophen [Acetaminophen Extra Strength] 500 mg tablet 1,000 mg PO Q6H PRN insulin lispro [Humalog KwikPen Insulin] 100 unit/mL insulin pen See Rx Instructions SC TID Qty: 15 3RF Rx Instructions: Take 2 units for for every 30G carbs. Sliding scale 141-160 1 unit,161-180 2units,181-200 3 units,201-220 4 units,221-240 5 units, 241-260 6 units, 261-280 7 units, 281-300 8units, 300 or higher 9 units and call [place]( [facility] [place] [place] benzonatate 100 mg capsule 100 mg PO TID PRN (Reason: cough) Qty: 30 0RF pregabalin 150 mg capsule 150 mg PO BID Qty: 180 3RF prochlorperazine maleate 5 mg tablet See Rx Instructions PO TID PRN (Reason: nausea and vomiting; headache) Qty: 30 3RF Rx Instructions: 5-10mg orally three times a day PRN; verapamil 40 mg tablet 40 mg PO BID Qty: 180 3RF lisinopril 20 mg tablet 20 mg PO DAILY Qty: 90 3RF Rx Instructions: to lower blood pressure under 130/85 meclizine 25 mg tablet 50 mg PO BID PRN (Reason: dizziness) Qty: 360 1RF Rx Instructions: insurance does not pay for 50 mg tablet, only the 25 mg tab. cc (DME) FreeStyle Coby 2 Sensor Kit See Rx Instructions .ROUTE .COMPLEX Qty: 2 11RF Dose Instruction: USE DIRECTED TO KEEP HBA1C LESS THAN 6.5% Rx Instructions: USE DIRECTED TO KEEP HBA1C LESS THAN 6.5% hyoscyamine sulfate 0.375 mg tablet extended release 12 hr 0.375 mg PO Q12H Qty: 30 0RF Discharge Instructions Instructions: Plantar Fasciitis (ED) Additional Instructions: Walking boot and crutches as discussed. Try coated aspirin 650 mg every 6 hours as needed to reduce pain and inflammation. We will have podiatry call you for a follow-up appointment. Return to ED for fever of 100.4 or above, red swollen hot foot, any other concerns. Discharge Data Discharge Date/Time-TO BE ENTERED AT DEPARTURE: 05/05/23 16:53 Medical Decision Making Patient takes an 81 mg aspirin a day. We will try coated aspirin as an anti- inflammatory as she does not not tolerate NSAIDs well. She thinks this is a gre at idea. I suspect she has planter fasciitis. She has crutches at home. I will put her in a boot to use for comfort. 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 Imaging Data Radiologic Study: Radiologist's impression: Patient Name: Mary Beth Holman Unit #: [id number] Loc: ER Ordering Provider: Status: REG ER Primary Care Provider: Hai Lopez DO Date of Exam: 05/05/23 Sex: F : 1960 Age: 62 Exam(s) PROCEDURE INFORMATION: Exam: XR Left Foot Exam date and time: 05/05/2023 4:04 PM Age: 62 years old Clinical indication: Other: Midfoot pain x2 months TECHNIQUE: Imaging protocol: Radiologic exam of the left foot. Views: 3 or more views. COMPARISON: No relevant prior studies available. FINDINGS: Bones/joints: No fracture. Subchondral lucencies at the 2nd tarsometatarsal joint. Small osteophytes at the 2nd, 3rd and 4th tarsometatarsal joints. Small osteophytes at all the interphalangeal joints. Small calcaneal plantar spur. Soft tissues: Unremarkable IMPRESSION: Small subchondral lucencies of the 2nd tarsometatarsal joint may be subchondral cysts secondary to osteoarthritis. Small erosions are possible. Please correlate for an inflammatory arthropathy Dictated and Authenticated by: Bob Townsend MD. Ordering:KARISSA Morales MD HPI General Date/Time Provider Initiated Documentation: 05/05/23 15:28 . HPI Narrative: 62-year-old female patient presents with a chief complaint of left foot pain which she initially said been ongoing for 2 months. Patient states she dropped a 2 qt bottle of liquid on her foot. She later told me that her foot had gotten better and then worsened again. She has been working and on her feet for the past 6 days and states that her forefoot is really bothering her. She tells me that she cannot take NSAIDs due to GI upset. She came in today because she is diabetic and was concerned there was a problem with her foot. She has had no redness, fever, breaks in the skin, numbness, or heat to the touch. There is no edema or trauma evident. The patient states that it does not hurt to flex or extend her foot but it does hurt when she bears weight on her forefoot. Related Data Home Medications Medication Instructions Recorded Confirmed aspirin 81 mg tablet,delayed 81 mg PO DAILY 12/26/19 05/01/23 release (Adult Aspirin Regimen) flash glucose scanning reader #1 ea 07/22/20 05/01/23 (FreeStyle Coby 14 Day [place]) pen needle, diabetic 31 gauge x #100 ea 11/03/21 05/01/23/16 (BD Ultra-Fine Mini Pen Needle) fluticasone furoate 27.5 2 spray intranasal DAILY #9.1 mL 03/14/22 05/01/23 mcg/actuation nasal spray,suspension cetirizine 10 mg capsule (Zyrtec) 10 mg PO DAILY PRN 03/24/22 05/01/23 albuterol sulfate 1.25 mg/3 mL 1.25 mg (3 mL) inhalation QID PRN 07/07/22 05/01/23 solution for nebulization shortness of breath or wheezing #120 mL acetaminophen 500 mg tablet 1,000 mg PO Q6H PRN 09/18/22 05/01/23 (Acetaminophen Extra Strength) insulin lispro 100 unit/mL See Rx Instructions subcut TID #15 09/18/22 05/01/23 subcutaneous pen (Humalog KwikPen mL (U-100) Insulin) albuterol sulfate 90 mcg/actuation 2 puff inhalation Q6H PRN 01/23/23 05/01/23 aerosol inhaler (Ventolin HFA) shortness of breath or wheezing #8.5 grams clopidogrel 75 mg tablet 75 mg PO DAILY #90 tabs 01/23/23 05/01/23 empagliflozin 25 mg tablet 25 mg PO DAILY #90 tabs 01/23/23 05/01/23 (Jardiance) pantoprazole 40 mg tablet,delayed 40 mg PO DAILY #90 tabs 01/23/23 05/01/23 release paroxetine HCl 20 mg tablet (Paxil) 20 mg PO DAILY #90 tabs 01/23/23 05/01/23 benzonatate 100 mg capsule 100 mg PO TID PRN cough #30 01/24/23 05/01/23 tab-caps pregabalin 150 mg capsule 150 mg PO BID #180 caps 03/02/23 05/01/23 ondansetron 4 mg disintegrating 4 mg PO Q8H PRN nausea and 10/03/23 10/24/23 tablet vomiting #30 tabs flash glucose sensor (FreeStyle ##2 04/12/23 05/01/23 Coby 2 Sensor kit) hyoscyamine sulfate 0.375 mg 0.375 mg PO Q12H abdominal pain 04/12/23 05/01/23 tablet,extended release,12 hr #30 tabs lisinopril 20 mg tablet 20 mg PO DAILY #90 tab-caps 04/12/23 05/01/23 meclizine 25 mg tablet 50 mg (2 x 25 mg) PO BID PRN 04/12/23 05/01/23 dizziness #360 tabs prochlorperazine maleate 5 mg See Rx Instructions PO TID PRN 04/12/23 05/01/23 tablet nausea and vomiting; headache #30 tabs verapamil 40 mg tablet 40 mg PO BID #180 tabs 04/12/23 05/01/23 insulin degludec 200 unit/mL (3 See Rx Instructions subcut BID #9 05/01/23 05/01/23 mL) subcutaneous pen (Tresiba mL FlexTouch U-200 insulin) Previous Rx's Medication Instructions Recorded flash glucose scanning reader #1 ea 07/22/20 (FreeStyle Coby 14 Day [place]) pen needle, diabetic 31 gauge x #100 ea 11/03/2109/21 (BD Ultra-Fine Mini Pen Needle) fluticasone furoate 27.5 2 spray intranasal DAILY #9.1 mL 03/14/22 mcg/actuation nasal spray,suspension albuterol sulfate 1.25 mg/3 mL 1.25 mg (3 mL) inhalation QID PRN 07/07/22 solution for nebulization shortness of breath or wheezing #120 mL insulin lispro 100 unit/mL See Rx Instructions subcut TID #15 09/18/22 subcutaneous pen (Humalog KwikPen mL (U-100) Insulin) albuterol sulfate 90 mcg/actuation 2 puff inhalation Q6H PRN 01/23/23 aerosol inhaler (Ventolin HFA) shortness of breath or wheezing #8.5 grams clopidogrel 75 mg tablet 75 mg PO DAILY #90 tabs 01/23/23 empagliflozin 25 mg tablet 25 mg PO DAILY #90 tabs 07/18/23 (Jardiance) pantoprazole 40 mg tablet,delayed 40 mg PO DAILY #90 tabs 01/23/23 release paroxetine HCl 20 mg tablet (Paxil) 20 mg PO DAILY #90 tabs 01/23/23 benzonatate 100 mg capsule 100 mg PO TID PRN cough #30 01/24/23 tab-caps pregabalin 150 mg capsule 150 mg PO BID #180 caps 03/02/23 ondansetron 4 mg disintegrating 4 mg PO Q8H PRN nausea and 04/10/23 tablet vomiting #30 tabs flash glucose sensor (FreeStyle ##2 04/12/23 Coby 2 Sensor kit) hyoscyamine sulfate 0.375 mg 0.375 mg PO Q12H abdominal pain 04/12/23 tablet,extended release,12 hr #30 tabs lisinopril 20 mg tablet 20 mg PO DAILY #90 tab-caps 04/12/23 meclizine 25 mg tablet 50 mg (2 x 25 mg) PO BID PRN 04/12/23 dizziness #360 tabs prochlorperazine maleate 5 mg See Rx Instructions PO TID PRN 04/12/23 tablet nausea and vomiting; headache #30 tabs verapamil 40 mg tablet 40 mg PO BID #180 tabs 04/12/23 insulin degludec 200 unit/mL (3 See Rx Instructions subcut BID #9 05/01/23 mL) subcutaneous pen (Tresiba mL FlexTouch U-200 insulin) Allergies Allergy/AdvReac Type Severity Reaction Status Date / Time fluoxetine HCl [From Prozac] Allergy Intermediate rash Verified 05/05/23 15:51 metformin AdvReac Severe diarrhea Verified 05/05/23 15:51 rofecoxib [From Vioxx] AdvReac Severe bleeding Verified 05/05/23 15:51 aspirin AdvReac Intermediate GI Upset Verified 05/01/23 14:11 celecoxib [From Celebrex] AdvReac Intermediate GI Upset Verified 05/05/23 15:51 naproxen AdvReac Intermediate Stomach Verified 05/05/23 15:51 intolerance General Stated Complaint: Orthopedic HOSSEIN: 4 Review of Systems All systems reviewed & are unremarkable except as noted in HPI and below PFSH All Active Problems (Updated 05/05/23 @ 16:44 by Carmen Leon MD) Plantar fasciitis of left foot (Acute) Gastroenteritis (Acute) 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 Presumed BPV, but re-assessing. Allergic sinusitis (Acute) Acute bronchitis (Acute) Hypoglycemia (Acute) Myofascial muscle pain (Acute) Osteoarthritis of knee (Chronic) Asthma (Chronic) Diagnosed in 1993 Hyperlipidemia (Chronic) Obesity (Chronic) Hypertriglyceridemia (Chronic) Benign paroxysmal vertigo (Acute) Dr Marshall testing 2000; head CT 10/06/02 & 03/05/06; HAD IN PAST; AGAIN 02/2012; again 08/08/13 to L Chronic airway obstruction (Chronic 06/05/14) exacerbation 03/2014 [facility]; FEV1 1.6 (58& pred; 62% FVC) no response to bronchodilators Gastro-esophageal reflux disease without esophagitis (Chronic 08/25/11) responds to PPI, unable to stop 02/2017 Type 2 diabetes mellitus with hyperglycemia (Acute 10/12/15) 03/2014 hospital A1C 7%; goal A1c<7.5 Liver cirrhosis (Chronic) Chronic hepatitis (Acute 05/09/93) Essential hypertension (Chronic) Nonalcoholic steatohepatitis (BUI) (Chronic) [place] [facility] [place] Stroke (Chronic) Depressive disorder (Chronic) Intermittent. Polyarthritis (Acute) Unspecified visual disturbance (Acute) [facility] [place] Unspecified visual field defects (Acute) Exophoria (Acute) Benign paroxysmal positional vertigo of right ear (Acute) Referred otalgia of right ear (Acute) Neck pain (Acute 06/29/16) Steroid-induced hyperglycemia (Acute 03/09/14) Uncontrolled type 2 diabetes mellitus without complication, with long-term current use of insulin (Chronic) Submandibular sialoadenitis (Acute 06/29/16) 06/29/16 Right flank pain (Acute 07/31/16) Other sleep disturbances (Acute 08/16/12) when back hurts and left knee/leg throb, sleep is disturbed Mechanical low back pain (Acute 08/02/08) DAILY PAIN SINCE FALL ON ICE AT WORK AUG 02, 2008 WC; re-injured 06/17/12 lifting at work; MRI 09/2012: MOD FACET ARTHROPATHY L5-S1, MILD L4-5 Tens unit 09/23/14; Functional Restor prg 07/2015 Diabetes mellitus (Chronic 04/16/14) 03/2014 hospital A1C 7%; goal A1c<7.5 Chronic rhinitis (Chronic 08/25/11) Cervicalgia (Acute 06/29/16) 06/29/16 Arthropathy, unspecified (Acute 08/25/11) marjorie knees Acute renal failure (Acute 04/06/14) Neuropathy of finger (Chronic) Intermittent vertigo (Chronic) Trigger thumb of right hand (Chronic) Medical History (Updated 05/05/23 @ 16:44 by Carmen Leon MD) COVID (~04/2021) 11/28/22 03/19/23 Ex-smoker for more than 1 year resumed [place] [facility] [id number] Hepatitis C Serous otitis media Postmenopausal disorder Ongoing hot flashes. Surgical History History of laryngoscopy 04/10/19 transnasal laryngoscopy salivary gland (02/23/17) [facility] [place] left submental ganglion wrist cyst removal x2 elbow surg x2 UGI W/ BX (10/10/17) [facility] [place] COLONOSCOPY W/ BX (10/10/17) Family History Father Heart disease Sister COPD (chronic obstructive pulmonary disease) Obese Brother Diabetes Essential hypertension Asthma Heart disease Hypertension Brother COPD (chronic obstructive pulmonary disease) Brother Alcohol abuse Brother Neoplasm non hodgkins lymphoma Mother COPD (chronic obstructive pulmonary disease) Asthma Heart disease Hypertension Social History Smoking/Tobacco Use Status: Current every day Tobacco Type: cigarettes Tobacco: How many years used: 10 Second Hand Exposure: No Smoking risk assessment performed?: Yes Alcohol Intake: current Drug use: Never Substance use type: does not use Adopted: No Foster care: No Household members: family and other Details: mother Housing: house Number of Children: 3 Communication Needs: Corrective Lenses Do you need help understanding health information?: Rarely 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 Pets and animals: Yes Pets and animals: cat(s), dog(s) and bird(s) Sexually active: No Do you think of yourself as: straight/heterosexual Current gender identity: female What is your relationship status?: How often do you talk on the phone with friends or family?: three or more times per week How often do you get together with friends or relatives?: decline to answer How often do you attend jainism or evangelical services?: 1-3 times per year Panel score (0-1 are the most socially isolated patients): 1 What type of physical activity do you participate in: none Meg/Gnosticism: None Special meg needs: No Seatbelt use: always Helmet use: Yes Helmet use: other Details: N/A Drive intox or ride w/intox corrugated fastener driver: No Working smoke detector in home: Yes Fire extinguisher in home: Yes Carbon monox detector in home: Yes Do you feel safe at home: Yes Do you feel safe in your relationship?: Yes Exam Const General: healthy appearing, no acute distress and well developed Orientation: alert and awake HENMT Head: normocephalic and atraumatic Mouth: lip normal Eyes Conjunctivae: conjunctivae normal Neck Neck: supple Resp Effort & Inspection: normal respiratory effort and able to speak in complete sentences Skin General skin exam: no rashes or lesions noted and other (PWD) Rashes: no rashes Neuro General: patient alert, patient awake and focal motor deficits present Speech: speech normal Sensory Exam: no sensory deficits noted Extrem Right lower extremity: foot (WNL) Left lower extremity: foot (nl temp/color/sensation/DP pulse/CR; TTP insertion plantar fascia distal) Course Vital Signs Vital signs: Vital Signs Temperature 36.8 C 05/05/23 15:10 Pulse 90 05/05/23 15:10 Respiratory Rate 18 05/05/23 15:10 Blood Pressure 135/76 05/05/23 15:10 Pulse Oximetry 100 05/05/23 15:10 Temperature 36.8 C 05/05/23 15:10 Temperature Source Oral 05/05/23 15:10 Pulse 90 05/05/23 15:10 Respiratory Rate 18 05/05/23 15:10 Blood Pressure 135/76 05/05/23 15:10 Blood Pressure Position Sitting 05/05/23 15:10 Pulse Oximetry 100 05/05/23 15:10 Oxygen Delivery Method Room Air 05/05/23 15:10 Oxygen Flow Rate 0 05/05/23 15:10 Pain Level 8 05/05/23 15:10
--- NOTE | 2023-05-05 15:30 | DI.RAD_ITS ---
Exam(s) XR FOOT LT COMPLETE EXAM: XR FOOT LT COMPLETE CLINICAL HISTORY: midfoot pain x2 mo. TECHNIQUE: 2D digital imaging was performed. Three views. COMPARISON: CR LEFT FOOT COMPLETE from 07/22/2010 FINDINGS: BONES: No acute fracture is present. No bony destructive lesion is seen. JOINTS: No dislocation present. There are degenerate changes at the tarsal metatarsal joints. Find ings greatest at 2nd and 3rd tarsal joints. SOFT TISSUE: Normal. IMPRESSION: Degenerative changes. No acute abnormality. DATA REPOSITORY: RADIATION DOSE DELIVERED:
[2023-05-05] MEDS: Aspirin E.C. 325 MG TABEC 650 MG PO (15:47)
--- NOTE | 2023-05-05 16:20 | DI.VRAD_ITS ---
PROCEDURE INFORMATION: Exam: XR Left Foot Exam date and time: 05/05/2023 4:04 PM Age: 62 years old Clinical indication: Other: Midfoot pain x2 months TECHNIQUE: Imaging protocol: Radiologic exam of the left foot. Views: 3 or more views. COMPARISON: No relevant prior studies available. FINDINGS: Bones/joints: No fracture. Subchondral lucencies at the 2nd tarsometatarsal joint. Small osteophytes at the 2nd, 3rd and 4th tarsometatarsal joints. Small osteophytes at all the interphalangeal joints. Small calcaneal plantar spur. Soft tissues: Unremarkable IMPRESSION: Small subchondral lucencies of the 2nd tarsometatarsal joint may be subchondral cysts secondary to osteoarthritis. Small erosions are possible. Please correlate for an inflammatory arthropathy Dictated and Authenticated by: Bob Townsend MD. Ordering:KARISSA Morales MD
== END 2023-05-05 16:53 | disposition home or self-care (01) ==
PROVIDERS: Emergency Provider Emergency Medicine; PCP Family Medicine
DX: M72.2 Plantar fascial fibromatosis (principal)
CPT/HCPCS: 99282; 73630; 99283

== ENCOUNTER 2023-08-10 09:52 | Outpatient (REF) | payer BC, SELFPAY ==
[2023-08-10 15:50] LABS: COVID-19 PCR Negative (Negative); Influenza A PCR Negative (Negative); Influenza B PCR Negative (Negative); RSV PCR Negative (Negative)
[2023-08-10 15:57] LABS: Source Nasopharynx
== END 2023-08-10 09:53 | disposition home or self-care (01) ==
LOC: LBN 09:52
PROVIDERS: PCP Family Medicine; Visit Provider Student in an Organized Health Care Education/Training Program
DX: R05.8 Other specified cough (principal); J34.89 Other specified disorders of nose and nasal sinuses; J06.9 Acute upper respiratory infection, unspecified; R09.81 Nasal congestion; R51.9 Headache, unspecified; Z20.828 Contact with and (suspected) exposure to other viral communicable diseases
CPT/HCPCS: 87637

== ENCOUNTER → 2023-08-17 01:46 | Outpatient (CLI) | payer BC, SELFPAY ==
--- NOTE | 2023-08-17 15:45 | DI.MRI_ITS ---
Exam(s) MR LOWER JOINT LT WO EXAM: MR LOWER JOINT LT WO CLINICAL HISTORY: ? ganglion cyst dorsal midfoot peroneal tear,LT FOOT PAIN,[id number].[id number] TECHNIQUE: Multiplanar multisequence MRI was performed without intravenous contrast. COMPARISON: CR,XR XR FOOT LT COMPLETE from 05/05/2023 FINDINGS: SKIN: No evidence of ulcer nor subcutaneous tract. No foreign body identified. Normal signal in the heel fat pad. BONES/JOINTS: No evidence of fracture nor bone contusion. No joint effusion is present. The talar do me appears unremarkable. The ankle mortise is maintained. No significant degenerative changes in th e tibiotalar and subtalar joints. No evidence of osseous tarsal coalition. Small amount of increase d fluid noted in the calcaneocuboid joint but without obvious degenerative changes in this joint and no evidence of para-articular ganglion cyst. Main Lisfranc ligament exhibits mild increased signal. No full-thickness tear. There is significant degenerative change in the 2nd tarsometatarsal joint between the middle cuneifor m and the base of the 2nd metatarsal. There are degenerative subarticular cysts at this level and jesse ne edema both sides the joint. Degenerative subarticular cysts in the dorsal aspect of the middle cu neiform at this level measures 8 by 6 mm. There is relative sparing of the 3rd tarsometatarsal joint. However, there is also significant degenerative change at the 4th tarsometatarsal joint between the b ase of the 4th metatarsal and the cuneiform. There is degenerative signal in the base of the 4th me tatarsal at this level. No abnormal intraosseous signal in the subarticular cuboid bone at this leve l. There is a tiny degenerative subarticular cyst on the medial aspect of the base of the 5th metata rsal also evident. LIGAMENTS: The anterior and posterior tibiofibular and calcaneofibular ligaments are intact. The ante rior and posterior talofibular ligaments are intact. The deltoid ligament is intact. No abnormal si gnal in the anterolateral gutter space. SINUS TARSI: There is no loss of the normal fat signal in this space. Interosseous ligament is intac t. There is no evidence of sinus tarsi ganglion cyst. MUSCULOTENDINOUS STRUCTURES: Achilles tendon: Unremarkable. No evidence of tear nor tendinitis/tendinosis. Plantar fascia: Unremarkable. No evidence of tear, abnormal thickening, nor abnormal nodularity. Anterior Extensor tendons: Unremarkable. Medial Tendons: Posterior Tibialis: Unremarkable. No tear or tenosynovitis evident. Flexor Digitorum longus: Unremarkable. No tear or tenosynovitis evident. Flexor Hallicus longus: Unremarkable. No tear or tenosynovitis evident. Lateral Tendons: Peroneus longus: Unremarkable. No tear nor tenosynovitis evident. Peroneus brevis:Unremarkable. No tear nor tenosynovitis evident. SOFT TISSUES: No abnormal signal in the musculature OTHER FINDINGS: None. IMPRESSION: 1. Main findings here are at the tarsometatarsal joints where there are significant degenerative cohen ges most evident in the 2nd tarsometatarsal joint and a lesser amount degenerative change in the 4th and 5th tarsometatarsal joints. There appears to be sparing of the 1st tarsometatarsal joint and 3rd tarsometatarsal joint. 2. No evidence of significant ganglion cysts, as per request. 3. No evidence of tendon tears nor tenosynovitis. 4. Mild increased signal noted in the main Lisfranc ligament but no full-thickness tear of this stru cture. DATA REPOSITORY:
== END ==
PROVIDERS: PCP Family Medicine; Visit Provider Podiatrist
DX: M79.672 Pain in left foot; M76.72 Peroneal tendinitis, left leg
CPT/HCPCS: 73721

== ENCOUNTER 2024-05-26 10:41 | Emergency (ER) | payer MEDICAID, SELFPAY ==
[2024-05-26] VITALS (17 sets, daily range): BP systolic 142–166; BP diastolic 71–93; PULSE 70–105; RESP 10–29; TEMP 37.2; O2SAT 89–93
--- NOTE | 2024-05-26 11:24 | NUR.NOTE ---
Nursing Note: L hematoma around eye, bruising tracking into hair line. pt reports PEREZ and facial/scalp numbness started yesterday. pt reports she had no injury to eye/head, no fall. pt reports she still has head ache and the numbness today. 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 MD garcia
--- NOTE | 2024-05-26 11:30 | DI.CT_ITS ---
Exam(s) CT FACIAL WO EXAM: CT FACIAL WO CLINICAL HISTORY: left orbital trauma. TECHNIQUE: Imaging Protocol: Axial computed tomography images with coronal and sagittal reformatted images were created and reviewed. No IV contrast COMPARISON: CT CT BRAIN NECK CTA from 04/28/2022 FINDINGS: MAXILLOFACIAL CT SCAN: There is prominent left-sided preorbital and left face hematoma. There is no evidence of facial fractures nor fluid the visualized paranasal sinuses. There is no dulce dence of orbital blowout fracture. Fluid in the paranasal sinuses. IMPRESSION: No evidence of facial bone fractures nor orbital fractures. Right-sided facial and periorbital hematoma. Report called to ER provider 05/26/2024 1:05 p.m. RADIATION DOSE DELIVERED: 520.07mGy.cm Total DLP DATA REPOSITORY: All CT scans at this facility are submitted to the National Radiology Data Registry (NRDR) Dose Index Registry (DIR) with the [employer] (ACR). RADIATION OPTIMIZATION: All CT scans at this facility use at least one of these dose optimization te chniques: automated exposure control; mA and/or kV adjustment per patient size (includes targeted exa ms where dose is matched to clinical indication); or iterative reconstruction.
--- NOTE | 2024-05-26 11:30 | RT.EKG_ITS ---
APPROVED REPORT Exam: Resting ECG Reason for Exam: syncope Patient Location: E HR:75 bpm ECG Measurements Heart Rate 75 AXIS HI 200 P 7 QRSd 83 QRS 12 QT 379 T 46 QTc 426 Conclusion Sinus rhythm...normal P axis, V-rate 60- 99 Low voltage, extremity and precordial leads...extremity<0.5mV, precordial<1.0mV Narrow complex normal sinus rhythm at a rate of 75. Normal axis. First-degree AV block HI interval 200 ms. QTc within normal limits. Low voltage similar to prior 2 years ago. Poor R wave progressio n. No acute injury pattern.
--- NOTE | 2024-05-26 11:45 | DI.RAD_ITS ---
Exam(s) XR CHEST 2V PA LATERAL EXAM: XR CHEST 2V PA LATERAL CLINICAL HISTORY: fall, hi. TECHNIQUE: 2D digital imaging was performed. COMPARISON: CR XR CHEST 2V PA LATERAL from 01/23/2023 FINDINGS: 2 views: Heart size is normal. The mediastinum is not widened. Mild scarring in the lateral left lung base is unchanged from prior. New infiltrates nor pleural effusions. No CHF. IMPRESSION: No acute pulmonary findings. DATA REPOSITORY: RADIATION DOSE DELIVERED:
[2024-05-26 11:59] LABS: Abs Immature Grans 0.03 10^3/uL (0.0-0.06); Absolute Basophil Count 0.06 10^3/uL (0.0-0.2); Absolute Eosinophil Count 0.13 10^3/uL (0.0-0.7); Absolute Lymphocyte Count 1.25 10^3/uL (1.2-3.4); Absolute Monocyte Count 0.33 10^3/uL (0.1-0.8); Absolute Neutrophil Count 4.67 10^3/uL (1.2-6.7); Basophils % 0.9 %; HCT 52.3 % (36.0-46.0); HGB 16.9 g/dL (11.2-15.7); Immature Grans % 0.5 %; Lymphocytes % 19.3 %; MCH 29.1 pg (27.0-33.0); MCHC 32.3 % (32.0-36.0); MCV 90 fL (80-95); MPV 10.7 fL (8.0-11.0); Monocytes % 5.1 %; Neutrophils % 72.2 %; Platelet Count 128 10^3/uL (130-400); WBC 6.47 10^3/uL (4.4-10.8)
[2024-05-26 12:10] LABS: Prothrombin Time 10.4 sec (9.1-11.1)
[2024-05-26 12:19] LABS: ALT 17 U/L (14-59); AST 15 U/L (15-37); Albumin 3.9 g/dL (3.4-5.0); Alkaline Phosphatase 119 U/L (46-116); Anion Gap 5.8 mmol/L (3-11); BUN 9 mg/dL (7-18); Bilirubin, Total 0.44 mg/dL (0.2-1.0); CO2 32.2 mmol/L (21.0-32.0); CREATININE 0.9 mg/dL (0.55-1.02); Calcium 9.1 mg/dL (8.5-10.1); Chloride 104 mmol/L (98-107); ETHANOL BLOOD < 3.0 mg/dL (<10); Estimated GFR 71.39 (mL/min/1.73m2); Glucose 222 mg/dL (74-106); Magnesium 2.1 mg/dL (1.8-2.4); Potassium 4.2 mmol/L (3.5-5.1); Sodium 142 mmol/L (136-145); Total Protein 7.7 g/dL (6.4-8.2); Troponin I 4 ng/L (<or=51)
[2024-05-26] MEDS: Omnipaque 350 MG/ML 100 ML BTL IJ (12:23)
[2024-05-26] MEDS: Normal Saline - Diluent 50 ML VIAL IJ (12:24)
--- NOTE | 2024-05-26 12:25 | DI.CT_ITS ---
Exam(s) CT BRAIN NECK CTA EXAM: CT BRAIN NECK CTA CLINICAL HISTORY: hx of ICA stent, fall, ecchymosis left face, [place]. TECHNIQUE: Imaging Protocol: Axial CT angiography was performed with multi-slice acquisition and mu lti-planar and/or 3D reconstructions. CONTRAST MATERIAL: Intravenous: Omnipaque 350 Contrast volume:structured data in ml COMPARISON: CT CT BRAIN NECK CTA from 04/28/[address] FACIAL WO from 05/26/2024 FINDINGS: CTA Neck W: Aortic arch anatomy: The aortic arch anatomy is conventional and there is no significant stenosis at the origin of the great vessels off of the aortic arch. No intimal flap evident. Anterior circulation: Both common carotid arteries ascend with normal luminal diameters. At the level the carotid bulbs and proximal internal carotid arteries there is mild plaque again note d bilaterally, both calcified and noncalcified with approximately 20 percent stenosis bilaterally. A sabra this level the internal carotid arteries in the upper neck are patent as in the carotid canals o f the skull base. Posterior circulation: Both vertebral arteries originate in conventional fashion off of the subclavian arteries. There is a moderate focal stenosis at the origin of the left vertebral artery off the subclavian artery. No fo james stenosis evident at the origin of the right vertebral artery. Both vertebral arteries ascend with normal luminal diameters in the foramen transverse area. No diss ection evident. Both vertebral arteries contribute to the formation of the basilar artery at the skull base. CTA Brain W: Anterior circulation: Both internal carotid arteries are patent in the skull base-carotid canals. The intracavernous right internal carotid artery appears unremarkable. There is a stent with in the left intracavernous ICA which appears to be excluding the previously described peripherally calcified aneurysm. The stent is patent as is the supraclinoid aspect of the internal carotid artery. Both A1 segments are patent as are the anterior cerebral arteries and there is no aneurysm at the lev el the anterior communicating artery. Both middle cerebral arteries are patent with no evidence of significant stenosis nor intraluminal th rombus. There also no aneurysms of these vessels. Posterior circulation: The basilar artery ascends in the midline. Distally it gives off patent bilateral superior cerebella r arteries. Above this level the basilar artery terminates as patent bilateral posterior cerebral arteries. There is no evidence of aneurysm at the tip of the basilar artery. CT BRAIN: There is no evidence of intracranial hemorrhage, mass effect, or shift of midline structures. There are no extra-axial fluid collections. Ventricles are not enlarged or shifted. There are no ring enh ancing lesions in the brain and no abnormal meningeal enhancement. Prominent left-sided periorbital and facial hematoma noted from acute IMPRESSION: 1. Mild atherosclerotic disease in the carotid arteries in the neck as described above but without he modynamically significant stenosis. 2. There is a moderate stenosis at the origin of the left vertebral artery left subclavian artery. No other vertebral artery findings. Both vertebral arteries contribute to the formation of the basil ar artery at the skull base. 3. Patent intracranial arteries. 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 4. No evidence of intracranial hemorrhage nor obvious acute infarct. If clinically indicated follow- up MRI can be performed. See separate facial CT scan dictation RADIATION DOSE DELIVERED: 2,054.5mGy.cm Total DLP DATA REPOSITORY: All CT scans at this facility are submitted to the National Radiology Data Registry (NRDR) Dose Index Registry (DIR) with the [employer] (ACR). RADIATION OPTIMIZATION: All CT scans at this facility use at least one of these dose optimization te chniques: automated exposure control; mA and/or kV adjustment per patient size (includes targeted exa ms where dose is matched to clinical indication); or iterative reconstruction.
--- OUTSIDE RECORDS SUMMARY | 2024-05-26 12:41 | XMS_ITS | Encounter Summary ---
Author Organization [facility] Address [facility] [place] [address] Care Team Providers Care Executive Administrative Asst Name Role Phone Hai Lopez Primary Care Provider [phone] Encounter Details Date Type Department Care Team (Late st Contact Info) Description 06/26/2023 Telephone [place] [id number] Vera Townsend MD [facility] [place] [place] [address] Social History Tobacco Use Types Packs/Day Years Used Date Smoking Tobacco: Every Day Cigarettes 0.3 40 Smokeless Tobacco: Never Comments:down to 5 cigs. Alcohol Use Standard Drinks/Week Comments No 0 (1 standard drink = 0.6 oz pur e alcohol) [facility] IPV Inpatient Questions Answer Date Recorded Does Anyone Try to Keep You From Having Contact with Others or Doing Things Outside Your Home? no 09/11/2022 Feels Threatened by Someone no 12/2022 Feels Unsafe at Home or Work/School no 09/11/2022 Physical Signs of Abuse Present Not on file 09/11/2022 Sex and Gender Information Value Date Recorded Sex Assigned at Not on file Gender Identity Not on file Sexual Orientation Not on file documented as of this encounter Miscellaneous Notes * Telephone Encounter - Laurence Jackson - 06/26/2023 11:20 AM EST 1 yr recall entered in [facility] ----- Message from Vera Townsend MD sent at 06/26/2023 9:58 AM EST ----- F/u MRA in 1 year (Jun 2024) to evaluate for new or recurrent aneurysm with Destiny. documented in this encounter Plan of Treatment Not on file documented as of this encounter Visit Diagnoses Not on filedocumented in this encounter Care Teams Executive Administrative Asst Relationship Specialty Start Date End Date Hai Lopez DO [address] [place] [address] PCP - General Family Medicine 10/10/17 documented as of this encounter
--- OUTSIDE RECORDS SUMMARY | 2024-05-26 12:41 | XMS_ITS | Encounter Summary ---
Author [facility] [place] [address] Care Team Providers Care Supervisor Floor Assembly Name Role Phone Hai Lopez DO Primary Care Provider [phone] Encounter Details Date Type Department Care Team (Latest Contact Info) Description 02/29/2024 Travel Social History Tobacco Use Types Packs/Day Years [...] filedocumented in this encounter Care Teams Supervisor Floor Assembly Relationship Specialty Start Date End Date Hai Lopez DO [address] [place] [id number] PCP - General Family Medicine 10/10/17 documented as of this encounter
--- OUTSIDE RECORDS SUMMARY | 2024-05-26 12:41 | XMS_ITS | Encounter Summary ---
Author Organization [facility] [place] [address] Care Team Providers Care Interrelated Special Education Teacher Name Role Phone Hai Lopez Corey MOORE Primary Care Provider [phone] Encounter Details Date Type Department Care Team (Late st Contact Info) Description 04/04/2023 Notes [place] [address] Destiny Alfredo, [facility] [place] [address] [place] [address] Social History Tobacco Use Types Packs/Day Years Used Date Smoking Tobacco: Every Day Cigarettes 0.3 40 Smokeless Tobacco: Never Comments:down to 5 cigs. Alcohol Use Standard Drinks/Week Comments No 0 (1 standard drink = 0.6 oz pur e alcohol) IPV Inpatient Questions Answer Date Recorded Does [...] documented as of this encounter Progress Notes * Destiny Alfredo APRN - 04/04/2023 4:13 PM EDT Patient scheduled for diagnostic cerebral angiogram 04/06/23. Will continue ASA/Plavix. Labs: creatinine Refer to note 01/12/23 for full pre-procedure plan. documented in this encounter Plan of Treatment Not on file documented as of this encounter Visit Diagnoses Not on filedocumented in this encounter Care Teams Interrelated Special Education Teacher Relationship Specialty Start Date End Date Hai Lopez DO [address] [place] [address] PCP - General Family Medicine 10/10/17 documented as of this encounter
--- OUTSIDE RECORDS SUMMARY | 2024-05-26 12:41 | XMS_ITS | Encounter Summary ---
Author Organization [facility] [place] [address] Care Team Providers Care Home Agent Name Role Phone Hai Lopez DO Primary Care Provider [phone] Encounter Details Date Type Department Care Team (Latest Contact Info) Description 06/01/2023 Travel Social History Tobacco Use Types Packs/Day [...] on filedocumented in this encounter Care Teams Home Agent Relationship Specialty Start Date End Date Hai Lopez DO [address] [place] [id number] PCP - General Family Medicine 10/10/17 documented as of this encounter
--- OUTSIDE RECORDS SUMMARY | 2024-05-26 12:41 | XMS_ITS | Encounter Summary ---
Author Organization [facility] [place] [address] Care Team Providers Care High Lighter Name Role Phone Hai Lopez DO Primary Care Provider [phone] Encounter Details Date Type Department Care Team (Latest Contact Info) Description 03/16/2023 Travel Social History Tobacco Use Types Packs/Day [...] filedocumented in this encounter Care Teams High Lighter Relationship Specialty Start Date End Date Hai Lopez DO [address] [place] [id number] PCP - General Family Medicine 10/10/17 documented as of this encounter
--- OUTSIDE RECORDS SUMMARY | 2024-05-26 12:41 | XMS_ITS | Encounter Summary ---
Author Organization [facility] [place] [address] Care Team Providers Care Information Security Analyst Name Role Phone Hai Lopez Primary Care Provider [phone] Encounter Details Date Type Department Care Team (Latest Contact Info) Description 02/29/2024 10:15 AM EDT Office Visit Audiology at [address] [address] Valeria Scott AUD [facility] [place] [address] Sensorineural hearing loss, bilateral; Disequilibrium; Tinnitus of right ear Social History Tobacco Use Types Packs/Day Years Used Date Smoking Tobacco: Every Day Cigarettes 0.3 40 Smokeless Tobacco: Never Comments:down to 5 cigs. Alcohol Use Standard Drinks/Week Comments No 0 (1 standard drink = 0.6 oz pur e alcohol) [facility] Inpatient Questions Answer Date Recorded Does Anyone [...] as of this encounter Progress Notes * Valeria Scott AUD - 02/29/2024 10:15 AM EDT [place] [address] Mary Beth Holman was seen on 02/29/2024 for an audiologic evaluation in conjunction with Berry Elaine PA-C in ENT. Please refer to the scanned audiogram listed under Procedures for findings, impressions and recommendations. Lori Jameson (Kate) [facility] Clinical It Application Architect [facility] [phone] documented in this encounter Plan of Treatment Not on file documented as of this encounter Procedures Procedure Name Priority Date/Time Associated Diagnosis Comments COMPREHENSIVE HEARING TEST Routine 02/29/2024 10:15 AM EDT documented in this encounter Results * Comprehensive hearing test (02/29/2024 10:15 AM EDT) 02/29/2024 10:1 5 AM EDT Narrative [facility] - 02/29/2024 10:15 AM EDT Recommendations: -Follow up per Berry Elaine PA-C in ENT. Procedure Note Unknown - 02/29/2024 Recommendations: -Follow up per Berry Elaine PA-C in ENT. Valeria [facility] ORDERABLES [facility] documented in this encounter Visit Diagnoses Diagnosis Sensorineural hearing loss, bilateral Disequilibrium Dizziness and giddiness Tinnitus of right ear Unspecified tinnitus documented in this encounter Care Teams Information Security Analyst Relationship Specialty Start Date End Date Hai Lopez DO [address] [place] [id number] PCP - General Family Medicine 10/10/17 documented as of this encounter
--- OUTSIDE RECORDS SUMMARY | 2024-05-26 12:41 | XMS_ITS | Encounter Summary ---
Author Organization [facility] [place] [address] Care Team Providers Care Fabrication Operator Name Role Phone Hai Lopez Corey MOORE Primary Care Provider [phone] Reason for Referral * Diagnostic Test (Routine) - Authorized Specialty Diagnoses / Procedures Referred By Cristal munguia Referred To Contact Radiology Diagnoses Aneurysm of left internal carotid artery Procedures MRI Angiogram Head wo Contrast (Generic) Vera Townsend MD [facility] [place] [address] [place] [address] Referral ID Status Reason Start Date Expiration Date Visits Requested Visits Authorized [id number] Authorized Specialty Service Requested 3 12/25/2024 1 1 Encounter Details Date Type Department Care Team (Late st Contact Info) Description 06/26/2023 Orders [place] [address] Vera Townsend MD [facility] [place] [address] Aneurysm of left internal carotid artery Social History Tobacco Use Types Packs/Day Years Used Date Smoking Tobacco: Every Day Cigarettes 0.3 40 Smokeless Tobacco: Never Comments:down to 5 cigs. Alcohol Use Standard Drinks/Week Comments No 0 (1 standard drink = 0.6 oz pur e alcohol) [facility] Inpatient Questions Answer Date Recorded Does [...] as of this encounter Plan of Treatment Scheduled Orders Name Type Priority Associated Diagnoses Orde r Schedule MRI Angiogram Head wo Contrast (Generic) Imaging Routine Aneurysm of left internal carotid artery Expected: 06/26/2024, Expires: 12/26/2024 documented as of this encounter Visit Diagnoses Diagnosis Aneurysm of left internal carotid artery documented in this encounter Care Teams Fabrication Operator Relationship Specialty Start Date End Date Hai Lopez DO [address] [place] [address] PCP - General Family Medicine 10/10/17 documented as of this encounter
--- OUTSIDE RECORDS SUMMARY | 2024-05-26 12:41 | XMS_ITS | Encounter Summary ---
[place] [address] Care Team Providers Care Digital Media Associate Name Role Phone Hai Lopez DO Primary Care Provider [phone] Reason for Referral * Diagnostic Test (Routine) - Closed Specialty Diagnoses / Procedures Referred By Contac t Referred To Contact Radiology Diagnoses Aneurysm of left internal carotid artery Procedures IR Arteriogram Cerebral Destiny Alfredo [facility] C[facility] [address] [place] [address] Referral ID Status Reason Start Date Expiration Date V isits Requested Visits Authorized [id number] Closed Specialty Service Requested 01/03/2023 07/05/2024 1 1 Reason for Visit * Diagnostic Test (Routine) - Closed Specialty Diagnoses / Procedures Referred By Contac t Referred To Contact Radiology Diagnoses Aneurysm of left internal carotid artery Procedures IR Arteriogram Cerebral Destiny Alfredo [facility] [place] [address] [place] [address] Referral ID Status Reason Start Date Expiration Date V isits Requested Visits Authorized [id number] Closed Specialty Service Requested 01/03/2023 07/05/2024 1 1 Encounter Details Date Type Department Care Team (Latest Contact Info) Description 06/01/2023 6:52 AM EST - 06/01/2023 11:59 PM EST Hospital Encounter Radiology at [facility] [place] [address] Destiny Alfredo APRN [facility] [address] Aneurysm of left internal carotid artery Discharge Disposition: Home Social History Tobacco Use Types Packs/Day Years Used Date Smoking Tobacco: Every Day Cigarettes 0.3 40 Smokeless Tobacco: Never Comments:down to 5 cigs. Alcohol Use Standard Drinks/Week Comments No 0 (1 standard drink = 0.6 oz pur e alcohol) [facility] Inpatient Questions Answer Date Recorded Does [...] Sign Reading Time Taken Comments Blood Pressure 94/47 06/01/2023 11:30 AM EST Pulse 83 06/01/2023 8:55 AM EST Temperature 36.8 ??C (98.3 ??F) 06/01/2023 7:00 AM ES T Respiratory Rate 15 06/01/2023 8:55 AM EST Oxygen Saturation 86% 06/01/2023 11:30 AM EST Inhaled Oxygen Concentration - - Weight - - Height - - Body Mass Index - - documented in this encounter Discharge Instructions * Discharge Instructions* Indigo Hedrick RN - 06/01/2023 8:26 AM EST Radial Artery Instructions Procedure: Cerebral Arteriogram Puncture Site: Right Wrist Date: 06/01/23 1. At home we advise you to rest quietly in bed or on the couch until the next morning. You may getup and walk around but keep your activity to a minimum. DO NOT USE WRIST OF AFFECTED SIDE TO PUSH YOURSELF UP IN BED OR CHAIR TO SHIFT POSITION FOR 12 HOURS POST PROCEDURE. 2. Resume your previous diet. Drink 6-8 ounces of fluid per hour for the next 8 hours. Avoid alcoholic or caffeinated beverages for 24 hours. If you are a diabetic and take Metformin or Janumet or the combination med's that include Metformin, DO NOT take for 2 days after the procedure. 3. Avoid strenuous activity for the next 48 hours, particularly in the next 24 hours. Do not lift anything for the next 48 hours or engage in any sports activity for 48 hours. You may engage in sexual activity after 48 hours. Problems to watch for: 1. If you develop bleeding at the puncture site, put direct pressure on the site for 15 minutes andcall your doctor. Call for help. If the bleeding persists, reapply firm pressure, call 911 for an ambulance and go to your local Emergency Department. 2. If you notice a sudden change in the feeling (numbness, tingling and/or pain) of your hand on the side of the puncture call your doctor. 3. You may develop a bruise and swelling at the catheter insertion site. If you develop a bulge, you may have bleeding inside. Contact your doctor or the Radiology/Vascular Department here. Report signs of infection (redness, swelling, discharge, soreness, or fever) to your doctor. 4. Leave the bandage on for 24-48 hours. A little spot of blood at the catheter insertion site is normal. A small lump or bruise under the skin is normal. They generally disappear in 3-4 days. You may shower the following day after the procedure. You should NOT swim or tub bathe for 48 hours. 5. Expect some mild tenderness over the catheter insertion area. You will notice this after the local anesthetic wears off. This should improve during the 24-48 hours after the procedure. Take tylenol if needed. Contact your doctor is the discomfort worsens. 6. Watch for signs for infection at the catheter site for the first few days at home. Signs include: Redness, swelling with increased soreness, yellow, green or brown fowl smelling drainage. If you think you may have these symptoms, take your temperature, then call your doctor. 7. You have received medication during your procedure to help lessen anxiety and keep you comfortable and which affects judgement and reaction time. We recommend that you do not drive, operate equipment, sign any important documents, or smoke unattended for 24 hours following your procedure. Because of the sedation please be careful on stairs, as you may be unsteady on your feet. You may return to work with the above restrictions on . The limb where the catheter was inserted should look and feel normal in color, sensation, and temperature. If your arm/hand becomes cool, pale, blue or changing color with numbess and tingling, CALL YOUR DOCTOR. If you have any questions or concerns, please call Interventional Radiology Department at until 6pm. After 6pm, or on weekends or hoildays, james and ask for the Radiologyresident distribution operations supervisor. OR Peripheral IV site -- slight redness, or tenderness is normal, you can use a warm compress. If tenderness and redness increases or foul drainage occurs, please contact your M. D. Revised 04/24/19 * Patient Instructions* Tadeo Vasquez MD - 06/01/2023 9:08 AM EST ANGIOGRAM DISCHARGE INSTRUCTIONS PRESCRIPTION INSTRUCTIONS: Please see the medication reconciliation list on this discharge summary for a current list of your medications. Please continue taking your aspirin, but stop taking plavix. WHEN TO SEEK MEDICAL CARE: Signs or symptoms of an infection - Fever over 101F - Redness, swelling, or increasing pain around your puncture site - Drainage of pus or blood from your puncture site Headaches - Headaches that are not relieved with pain medications, progressively worsen, or are severe New neurologic symptoms - New unsteadiness when walking - New weakness or sensory changes to one side of your body - Facial droop - Slurred speech or difficulty speaking - Confusion - Seizure - Any other concerning neurologic symptom Symptoms of a deep venous thrombosis (DVT) or pulmonary embolism (PE): - Swelling/warmth/redness of the leg - Pain in the leg, which can be worse with standing or walking - Chest pain or shortness of breath To help prevent a DVT: - Exercise regularly. Walking, at least several times daily, is helpful. - Ankle pump exercises (like pressing and releasing the gas pedal) should be done regularly. - Keep hydrated with water or other clear liquids (coffee/tea/cola can dehydrate you). - Avoid alcohol and crossing your legs. - Remember not to sit or lay in bed, while awake, for prolonged amounts of time. DIET: - You may resume your usual diet. ACTIVITY: - You may increase your activities as tolerated. - Restrict strenuous activity (such as running, jumping, jogging, shoveling, heavy lifting, etc.) for at least 2 weeks. - Do not drive while taking any narcotic pain medication, if prescribed. FOLLOW UP PLAN: [x] Please follow up in the Neurosurgery Clinic in 1 year. Please call the Neurosurgery Office at [phone] if you do not receive a scheduled appointment within two weeks. You will follow-up with: [x] Dr. Townsend [] Dr. Carmen [] Dr. Ramon Imaging: [] CT: [] Head [] Neck [] CTA: [] Head [] Neck [x] MRA: [x] Head [] Neck HOW TO REACH NEUROSURGERY Office Hours (Sunday through Sunday 8am-5pm): Call On weekends or after office hours (after 5pm or before 8am): Call [phone] and ask the power chisel operator to page the Neurosurgery Resident/Advanced Practice Provider distribution operations supervisor. *Your surgeon may not be director call center sales (especially after office hours or on the weekend) so be ready totell about yourself and your surgery when you call. Neurosurgery Providers Adult Neurosurgery Dr. Elida Ibarra Pediatric Neurosurgery Dr. Skylar Horowitz Advanced Practice Providers Alexia Robertson, Nurse Practitioner (outpatient) Slime Adair, Physician Mental Health Coordinator (inpatient/outpatient: neuro-oncology) Maura Jacobson, Physician Mental Health Coordinator (inpatient) Derik Velazquez, Nurse Practitioner (outpatient: pediatric) Destiny Alfredo, Nurse Practitioner (outpatient: vascular) Fanny Blackman, Physician Mental Health Coordinator (outpatient: spine) Ray Cleary, Nurse Practitioner (inpatient/outpatient) Max Dahl, Physician Mental Health Coordinator (outpatient) Outpatient Nurses Roxana Lawler documented in this encounter Medications at Time of Discharge Medication Sig Dispensed Refills Start Date End Date rimegepant (Nurtec ODT) 75 mg disintegrating tablet Take 75 mg by mouth daily. verapamiL SR (Calan-SR) 120 mg ER (SR) tablet Take 120 mg by mouth daily. fluticasone propionate (Flonase) 50 mcg/actuation [place], Suspension 2 sprays by Each Nare route daily. 11/29/2022 verapamiL (Calan) 40 mg tablet Take 40 mg by mouth 2 times daily. 11/25/2022 Insulin Tresiba FlexTouch U-200 200 unit/mL (3 mL) Insulin Pen Inject 20 Units subcutaneously every evening. 09/13/2022 acetaminophen (Tylenol) 500 mg Tablet Take 2 tablets by mouth every 6 hours as needed for Pain (mild pain (1-3)). 30 tablet 1 09/13/2022 aspirin 81 mg Tablet, Chewable Take 81 mg by mouth daily. 30 tablet 3 09/14/2022 multivitamin Capsule Take 1 capsule by mouth daily. clopidogreL (Plavix) 75 mg Tablet Take 1 tablet by mouth daily. Start 14 days prior to aneurysm procedure. 90 tablet 3 08/09/2022 pantoprazole EC (Protonix) 40 mg Tablet, Delayed Release (E.C.) Take 1 tablet by mouth daily. Start 14 days prior to aneurysm procedure. Stop taking omeprazole when you start this medication. 90 tablet 3 08/09/2022 pregabalin (LYRICA) 150 mg Capsule Take by mouth 2 times daily. 05/08/2022 ProAir RespiClick 90 mcg/actuation Aerosol Powdr Breath Activated INHALE TWO PUFFS BY MOUTH EVERY 4 HOURS NEEDED FOR WHEEZING OR SHORTNESS OF BREATH 04/27/2022 meclizine (Antivert) 25 mg Tablet Take by mouth 2 times daily. Takes 50 mg in the morning and 50 mg at night 05/29/2022 PARoxetine (Paxil) 20 mg Tablet TK 1 T PO D 06/26/2019 BD ULTRA-FINE MINI PEN NEEDLE 31 gauge x 3/16 Needle USE DAILY WITH LANTUS 0 09/13/2018 JARDIANCE 25 mg Tablet 0 09/11/2018 insulin lispro (HUMALOG) Insulin Pen Inject 2-20 Units subcutaneously as needed. ONETOUCH ULTRA TEST Strip 0 01/18/2015 ONE TOUCH DELICA 33 gauge Misc 0 01/18/2015 lisinopril (PRINIVIL;ZESTRIL) 20 mg Tablet Take 20 mg by mouth daily. 0 03/21/2015 albuterol (PROVENTIL HFA;VENTOLIN HFA;PROAIR) 90 mcg/actuation HFA Aerosol Inhaler Inhale 2 puffs into the lungs every 4 hours as needed for Wheezing. Use with spacer documented as of this encounter Progress Notes * Indigo Hedrick RN - 06/01/2023 8:20 AM EST ANGIO NURSING DATABASE Name: Mary Beth Holman Date of : 1960 AGE: 62 y.o. Address: [address] [address] Phone: [phone] (home) Mobile: Telephone Information: Referring Provider: Destiny Alfredo REASON FOR VISIT: Cerebral Angiogram Order Questions Answers Where will study be performed? [facility] Radiology [120] Is the patient on anticoagulant / antiplatelet therapy ? Aspirin,Clopidogrel Reason for exam and clinical history: LICA stent/coil aneurysm Exam/Procedure requested: DSA, Dr. Townsend Does patient require sedation? IV Please ensure a History and Physical exam is completed within 30 days of the Radiology Procedure OK No data recorded Allergies Allergen Reactions Aspirin Other reaction(s): GI Upset Celecoxib Other reaction(s): GI Upset Fluoxetine Fluoxetine Hcl CIS - BAD RASH Metformin Diarrhea and Nausea And Vomiting Rofecoxib Other reaction(s): bleeding Pertinent PMH: Patient Active Problem List Diagnosis Code Gastro-esophageal reflux K21.9 Diabetes mellitus E11.9 HLD (hyperlipidemia) E78.5 Hypertension I10 Chronic low back pain M54.50, G89.29 Chronic obstructive pulmonary disease J44.9 Cigarette smoker F17.210 Obesity E66.9 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 Midazolam 0.5 mg, IV. Radial cocktail: Verapamil 2.5 mg, IV. Heparin 3000 u, IV, Nitroglycerin 200 mcg, IV. 06/01/2023 Diagnostic Cerebral Angiogram Fentanyl 50 mcg IV, Versed 0.5 mg IV. Radial cocktail (Verapamil 2.5 mg IA, Nitrogylcerin 200 mcg IA, Heparin 3000 units IA) 0748 to procedure room 1 via stretcher. Onto table supine. All monitors, O2, safety strap in place.Meds per protocol. Arterial Puncture Post Procedure Time of Arterial Puncture: 829 Site: Right Wrist Closure device used: TR Band Time sheath removed: 08 Time of hemostasis: 854 Hematoma present?: No Radial Access: TR Band applied at: 0855 # ml's in TR band: 8 mL's Laboratory Results: Lab Results Component Value Date INR 1.0 01/03/2023 Lab Results Component Value Date CREATININE 0.66 (L) 01/03/2023 Lab Results Component Value Date K 4.3 01/03/2023 Lab Results Component Value Date PLATELET 168 01/03/2023 documented in this encounter H&P Notes * Destiny Alfredo, [facility] - 05/30/2023 5:23 PM EST NEURORADIOLOGY BRIEF PRE-PROCEDURE NOTE Name: Mary Beth Holman Date of : 1960 Indication: LICA aneurysm, stent/coil Planned Procedure: diagnostic cerebral angiogram, Dr. Townsend Chief Complaint/HPI: Mary Beth Holman is a 62 y.o. female presenting for above procedure. Medical history, medications, allergies reviewed. Denies fevers, chills, cough, dyspnea, chest pain, bleeding difficulty. Her baseline tingling in hands and feet is unchanged (has diabetic neuropathy). Has had recurrence of severe migraine since stent placement, now taking verapamil for this. Current Outpatient Medications: rimegepant (Nurtec ODT) 75 mg disintegrating tablet, Take 75 mg by mouth daily., Disp: , Rfl: verapamiL SR (Calan-SR) 120 mg ER (SR) tablet, Take 120 mg by mouth daily., Disp: , Rfl: fluticasone propionate (Flonase) 50 mcg/actuation [place], Suspension, 2 sprays by Each Nare route daily., Disp: , Rfl: verapamiL (Calan) 40 mg tablet, Take 40 mg by mouth 2 times daily., Disp: , Rfl: Insulin Tresiba FlexTouch U-200 200 unit/mL (3 mL) Insulin Pen, Inject 20 Units subcutaneously every evening., Disp: , Rfl: acetaminophen (Tylenol) 500 mg Tablet, Take 2 tablets by mouth every 6 hours as needed for Pain (mild pain (1-3))., Disp: 30 tablet, Rfl: 1 aspirin 81 mg Tablet, Chewable, Take 81 mg by mouth daily., Disp: 30 tablet, Rfl: 3 multivitamin Capsule, Take 1 capsule by mouth daily., Disp: , Rfl: clopidogreL (Plavix) 75 mg Tablet, Take 1 tablet by mouth daily. Start 14 days prior to aneurysm procedure., Disp: 90 tablet, Rfl: 3 pantoprazole EC (Protonix) 40 mg Tablet, Delayed Release (E.C.), Take 1 tablet by mouth daily. Start 14 days prior to aneurysm procedure. Stop taking omeprazole when you start this medication., Disp:90 tablet, Rfl: 3 pregabalin (LYRICA) 150 mg Capsule, Take by mouth 2 times daily., Disp: , Rfl: ProAir RespiClick 90 mcg/actuation Aerosol Powdr Breath Activated, INHALE TWO PUFFS BY MOUTH EVERY 4 HOURS NEEDED FOR WHEEZING OR SHORTNESS OF BREATH, Disp: , Rfl: meclizine (Antivert) 25 mg Tablet, Take by mouth 2 times daily. Takes 50 mg in the morning and 50 mg at night, Disp: , Rfl: PARoxetine (Paxil) 20 mg Tablet, TK 1 T PO D, Disp: , Rfl: BD ULTRA-FINE MINI PEN NEEDLE 31 gauge x 3/16 Needle, USE DAILY WITH LANTUS, Disp: , Rfl: 0 JARDIANCE 25 mg Tablet, , Disp: , Rfl: 0 insulin lispro (HUMALOG) Insulin Pen, Inject 2-20 Units subcutaneously as needed., Disp: , Rfl: ONETOUCH ULTRA TEST Strip, , Disp: , Rfl: 0 ONE TOUCH DELICA 33 gauge Misc, , Disp: , Rfl: 0 lisinopril (PRINIVIL;ZESTRIL) 20 mg Tablet, Take 20 mg by mouth daily., Disp: , Rfl: 0 albuterol (PROVENTIL HFA;VENTOLIN HFA;PROAIR) 90 mcg/actuation HFA Aerosol Inhaler, Inhale 2 puffs into the lungs every 4 hours as needed for Wheezing. Use with spacer, Disp: , Rfl: Allergies Allergen Reactions Aspirin Other reaction(s): GI Upset Celecoxib Other reaction(s): GI Upset Fluoxetine Fluoxetine Hcl CIS - BAD RASH Metformin Diarrhea and Nausea And Vomiting Rofecoxib Other reaction(s): bleeding Physical Exam: A&Ox3, in NAD. HR reg, s1/s2 RR reg, nonlabored, symmetric chest expansion, lungs CTA. BS active x4, soft, nondistended Fluent speech. EOM full Face symmetric, tongue midline No pronator drift UE/LE strength full Light touch sensation intact ASA: II Mallampati: II Labs: Creatinine Date Value Ref Range Status 01/03/2023 0.66 (L) 0.70 - 1.20 mg/dL Final Platelets Date Value Ref Range Status 01/03/2023 168 145 - 357 x10(3)/mcL Final POC creatinine today 0.8. Assessment: 62 y.o. female with the above history. No contraindications to procedure. Position: supine Prophylaxis: n/a Pathology: n/a Sedation: moderate Additional medications for procedure: radial access Consent: obtained Destiny Alfredo APRN 05/30/2023 5:23 PM documented in this encounter Miscellaneous Notes * Brief Op Note - Tadeo Vasquez MD - 06/01/2023 9:03 AM EST Brief Operative Note Patient Name: Mary Beth Holman : [id number] MR#: [id number] Case Date: 06/01/2023 Surgeon: * No surgeons found in log * Preoperative diagnosis: * No pre-op diagnosis entered * Postoperative diagnosis: * No post-op diagnosis entered * * No procedures listed * Anesthesia: Anesthesia type not filed in the log. Minimal sedation Findings: Successful DSA of L ICA demonstrating complete occlusion of prior 6mm L ICA aneurysm treated with pipeline stent placed in 09/2022 via R radial access, closed with TR band. Ok to stop plavix, but will continue aspirin. Complications: None. Estimated Blood Loss: * No values recorded between 06/01/2023 12:00 AM and 06/01/2023 9:03 AM * Specimens removed during surgery: None Fluids: Intraprocedure Crystalloid Total None PRBCs: none (See Anesthesia Record/Report for Other Blood Products) Urine Output: (no urine output recorded) Drains: None Disposition: aroused from sedation, and taken to the recovery room in a stable condition Condition: doing well without problems (Please see the Surgical Encounter Summary for any Implant and Specimen details pertinent to this patient.) Surgical Infection Prevention Bundle Used? N/A documented in this encounter Plan of Treatment Not on file documented as of this encounter Procedures Procedure Name Priority Date/Time Associated Diagnosis Comments POCT GLUCOSE Routine 06/01/2023 10:05 AM EST IR ARTERIOGRAM CEREBRAL Routine 06/01/2023 9:08 AM EST Aneurysm of left internal carotid artery POCT GLUCOSE Routine 06/01/2023 7:04 AM EST documented in this encounter Results * POCT Glucose (06/01/2023 10:05 AM EST) Glucose, POC 128 65 - 199 mg/dL [facility] Comment: Supplemental ranges: <140 mg/dL before meals <180 mg/dL all other times of the day Blood 06/01/2023 10:0 5 AM EST 06/01/2023 10:05 AM EST Destiny L Juni [facility] POINT OF CARE TEST O RDERABLES [facility] [place] [address] * IR Arteriogram Cerebral (06/01/2023 9:08 AM EST) Anatomical Region Laterality Modality X-Ray Angiograph y Impressions 06/26/2023 9:47 AM EST 1. ??Today's diagnostic cerebral angiogram demonstrates no evidence of residual left internal carotid artery aneurysm following flow diverting stent placement. No new aneurysms or vascular malformations are identified. 2. ??Findings discussed with the patient at the time of completion of the diagnostic angiogram. ATTESTATION Signer name: Vera Townsend MD I attest that I was present for the entire procedure. I reviewed the stored images and agree with the report as written. Sedation attestation: I was present during the intra-service time as documented by IR nurse. Thank you for letting us participate in the care of this patient. ??If you are a health care provider and have any questions regarding this report, please contact the number below. ??For patients who have questions please contact the health childcare teacher that requested your imaging first. ? 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 She returns for follow-up cerebral angiogram to evaluate for residual. COMPARISON: CT angiogram head January 03, 2023 OPERATING PHYSICIANS: 1. ??Tadeo Vasquez MD , Neurosurgery Resident 2. ??Vera Townsend MD, Interventional Neuroradiology Attending PROCEDURE: Transradial cerebral angiogram. ANESTHESIA: Moderate conscious sedation was achieved with IV medications administered by Vera Townsend MD. The times and doses are accurately reflected in the patient?s medical record. Oxygenation was given via nasal cannula and the patient was monitored closely with pulse oximetry, blood pressure, and vital signs, by an independent, trained, qualified observer throughout the procedure to ensure the safety of the administration of the drugs. Full details are available in the procedure log and report. I, Dr Vera Townsend MD, attest that I personally was present for continuous 1:1 monitoring throughout the entire procedure and while sedation was being administered. The above times reflect physician/patient cout-up-[id number] time. MEDICATIONS: 1% Lidocaine 5 ml SC Fentanyl 50 mcg IV Versed 0.5 mg IV Heparin 3000 U IA Verapamil 2.5mg IA Nitroglycerin 200mcg IA CONTRAST VOLUME: 20 ml of Visipaque 320 contrast. RADIATION EXPOSURE: Fluoro time: 6.2 mins, Total Air Kerma (K)*: 70.2 mGy COMPLICATIONS: None ESTIMATED BLOOD LOSS: < 10ml ACCESS: Right radial artery CLOSURE: TR band compression VESSELS SELECTED: 1. ??Left common carotid artery 2. ??Left internal carotid artery VIEWS OBTAINED: 1. ??Right radial and brachial arteries, AP arm and forearm roadmap view. 2. ??Left common carotid artery, AP and lateral cervical roadmap views. 3. ??Left internal carotid artery, AP and lateral intracranial views. 4. ??Left internal carotid artery, AP and lateral oblique magnified views. INTERVENTION: None. EQUIPMENT: ?? 1. ??Micropuncture access kit. 2. ??5-Cymraes, 10 cm radial Glidesheath 3. ??5-Cymraes Ibarra II Glidecatheter 4. ??0.035 x 150 cm long tapered angled Glidewire 5. ??TR band compression PROCEDURE COMMENTS: After explaining the risks and benefits of the procedure to the patient, written informed consent was obtained and placed in the patient's chart. ??The risks, benefits, and alternatives to the procedure were explained in detail. ??The risks include, but are not limited to, bleeding, infection, arterial injury, groin hematoma, pseudoaneurysm, hemorrhagic or embolic stroke, contrast allergy, nephropathy, coma, and/or . ??The patient understood the risks and wished to proceed with the procedure. ?? The patient was brought to the angiography suite and placed in the supine position on the angiography table. The right forearm and both groins were prepped and draped in the usual sterile fashion. ??A hard stop time-out was then performed to verify the patient's identity, the planned procedure, and procedure location. After proper patient identification and verification of the planned procedure, the procedure continued. Using ultrasound guidance, the skin overlying the radial artery was infiltrated with local anesthetic. The radial artery was accessed using a micropuncture kit without difficulty under ultrasound guidance and the 5-Cymraes, 10 cm radial Glidesheath was placed and flushed. An infusion of spasmolytic cocktail specified above was hemodiluted to a volume of 20 mL of aspirated blood then infused into the radial artery over 2-3 min. The sheath was intermittently flushed with heparinized saline solution as needed during the procedure. The diagnostic catheter was then double flushed on the back table and hooked to continuous heparinized saline flush via pressure bag. Roadmap was obtained of the right radial artery in the forearm and arm to evaluate for a radial artery loop prior to advancing the guidewire and diagnostic catheter proximally. Under continuous fluoroscopic and roadmap guidance the catheter and guidewire were advanced proximally without difficulty. The diagnostic catheter and guidewire were used to selectively catheterize the vessels enumerated above. Multiple angiographic runs were performed. At the conclusion of the procedure, all catheters and equipment were removed. Patent hemostasis was obtained by application of TR band compression without difficulty. The patient tolerated the procedure well and left interventional suite in stable condition. FINDINGS: The following is a detailed description of each angiographic run: RIGHT RADIAL AND BRACHIAL ARTERIES, AP ARM and FOREARM ROADMAP: The arteries of the arm are of normal appearance with no focal stenosis. There is no significant radial artery loop present. LEFT COMMON CAROTID ARTERY, AP AND LATERAL CERVICAL ROADMAP VIEWS. Roadmap images of the left common carotid artery were obtained for angiographic evaluation and distal artery selection planning. There is no abnormality of the left common carotid artery or carotid bulb. ?? There is no abnormality of the cervical segment of the left internal carotid artery. ?? The left external artery and its branches are widely patent. LEFT INTERNAL CAROTID ARTERY, AP AND LATERAL INTRACRANIAL VIEWS. The distal cervical, petrous, cavernous, and super clinoid segments of the left internal carotid artery are smooth and normal in course and caliber. No evidence of residual left internal carotid artery aneurysm. No evidence of in-stent stenosis. 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 The posterior communicating and anterior choroidal arteries are patent. The ICA terminus is normal. The left anterior cerebral artery is smooth and normal in course and caliber. There is flash opacification of the anterior communicating artery complex and contralateral right anterior cerebral artery. The left middle cerebral artery smooth and normal in course and caliber. Parenchymal and venous phases are normal. Dural venous sinuses are patent. No new aneurysms or vascular malformations are identified. LEFT INTERNAL CAROTID ARTERY, AP AND LATERAL OBLIQUE MAGNIFIED VIEWS. No evidence of residual aneurysm at the supraclinoid segment of the left internal carotid artery status post flow diverting stent embolization. Redemonstration of the stenosis at the origin of the ophthalmic artery with the remainder of the vessel appear normal, a common finding post stenting. No new aneurysms or vascular malformations are identified. Parenchymal and venous phases are normal. 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 She returns for follow-up cerebral angiogram to evaluate forresidual. COMPARISON: CT angiogram head January 03, 2023 OPERATING PHYSICIANS: 1. Tadeo Vasquez MD , Neurosurgery Resident 2. Vera Townsend MD, Interventional Neuroradiology Attending PROCEDURE: Transradial cerebral angiogram. ANESTHESIA: Moderate conscious sedation was achieved with IV medications administeredby Vera Townsend MD. The times and doses are accurately reflected in the patient?s medicalrecord. Oxygenation was given via nasal cannula and the patient was monitoredclosely with pulse oximetry, blood pressure, and vital signs, by an independent, trained, qualified observer throughout the procedure to ensure the safetyof the administration of the drugs. Full details are available in the procedurelog and report. I, Dr Vera Townsend MD, attest that I personally was present forcontinuous 1:1 monitoring throughout the entire procedure and while sedation wasbeing administered. The above times reflect physician/patient [id number]. MEDICATIONS: 1% Lidocaine 5 ml SC Fentanyl 50 mcg IV Versed 0.5 mg IV Heparin 3000 U IA Verapamil 2.5mg IA Nitroglycerin 200mcg IA CONTRAST VOLUME: 20 ml of Visipaque 320 contrast. RADIATION EXPOSURE: Fluoro time: 6.2 mins, Total Air Kerma (K)*: 70.2 mGy COMPLICATIONS: None ESTIMATED BLOOD LOSS: < 10ml ACCESS: Right radial artery CLOSURE: TR band compression VESSELS SELECTED: 1. Left common carotid artery 2. Left internal carotid artery VIEWS OBTAINED: 1. Right radial and brachial arteries, AP arm and forearm roadmap view. 2. Left common carotid artery, AP and lateral cervical roadmap views. 3. Left internal carotid artery, AP and lateral intracranial views. 4. Left internal carotid artery, AP and lateral oblique magnifiedviews. INTERVENTION: None. EQUIPMENT: 1. Micropuncture access kit. 2. 5-Cymraes, 10 cm radial Glidesheath 3. 5-Cymraes Ibarra II Glidecatheter 4. 0.035 x 150 cm long tapered angled Glidewire 5. TR band compression PROCEDURE COMMENTS: After explaining the risks and benefits of the procedure to the patient,written informed consent was obtained and placed in the patient's chart. Therisks, benefits, and alternatives to the procedure were explained in detail. Therisks include, but are not limited to, bleeding, infection, arterial injury,groin hematoma, pseudoaneurysm, hemorrhagic or embolic stroke, contrastallergy, nephropathy, coma, and/or . The patient understood the risks andwished to proceed with the procedure. The patient was brought to the angiography suite and placed in thesupine position on the angiography table. The right forearm and both groinswere prepped and draped in the usual sterile fashion. A hard stop time-out wasthen performed to verify the patient's identity, the planned procedure, andprocedure location. After proper patient identification and verification of theplanned procedure, the procedure continued. Using ultrasound guidance, the skin overlying the radial artery wasinfiltrated with local anesthetic. The radial artery was accessed using amicropuncture kit without difficulty under ultrasound guidance and the 5-Cymraes, 10 cmradial Glidesheath was placed and flushed. An infusion of spasmolytic cocktail specified above was hemodiluted to a volume of 20 mL of aspirated bloodthen infused into the radial artery over 2-3 min. The sheath wasintermittently flushed with heparinized saline solution as needed during the procedure. The diagnostic catheter was then double flushed on the back table andhooked to continuous heparinized saline flush via pressure bag. Roadmap was obtainedof the right radial artery in the forearm and arm to evaluate for a radialartery loop prior to advancing the guidewire and diagnostic catheter proximally.Under continuous fluoroscopic and roadmap guidance the catheter and guidewirewere advanced proximally without difficulty. The diagnostic catheter andguidewire were used to selectively catheterize the vessels enumerated above.Multiple angiographic runs were performed. At the conclusion of the procedure, all catheters and equipment wereremoved. Patent hemostasis was obtained by application of TR band compressionwithout difficulty. The patient tolerated the procedure well and left interventional suite instable condition. FINDINGS: The following is a detailed description of each angiographic run: RIGHT RADIAL AND BRACHIAL ARTERIES, AP ARM and FOREARM ROADMAP: Thearteries of the arm are of normal appearance with no focal stenosis. There is nosignificant radial artery loop present. LEFT COMMON CAROTID ARTERY, AP AND LATERAL CERVICAL ROADMAP VIEWS. Roadmap images of the left common carotid artery were obtained forangiographic evaluation and distal artery selection planning. There is no abnormalityof the left common carotid artery or carotid bulb. There is no abnormality ofthe cervical segment of the left internal carotid artery. The left externalartery and its branches are widely patent. LEFT INTERNAL CAROTID ARTERY, AP AND LATERAL INTRACRANIAL VIEWS. The distal cervical, petrous, cavernous, and super clinoid segments of theleft internal carotid artery are smooth and normal in course and caliber. Noevidence of residual left internal carotid artery aneurysm. No evidence ofin-stent stenosis. 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 The posterior communicating and anteriorchoroidal arteries are patent. The ICA terminus is normal. The left anteriorcerebral artery is smooth and normal in course and caliber. There is flashopacification of the anterior communicating artery complex and contralateral rightanterior cerebral artery. The left middle cerebral artery smooth and normal incourse and caliber. Parenchymal and venous phases are normal. Dural venous sinusesare patent. No new aneurysms or vascular malformations are identified. LEFT INTERNAL CAROTID ARTERY, AP AND LATERAL OBLIQUE MAGNIFIED VIEWS. No evidence of residual aneurysm at the supraclinoid segment of the left internal carotid artery status post flow diverting stent embolization. Redemonstration of the stenosis at the origin of the ophthalmic arterywith the remainder of the vessel appear normal, a common finding post stenting. Nonew aneurysms or vascular malformations are identified. Parenchymal andvenous phases are normal. IMPRESSION 1. Today's diagnostic cerebral angiogram demonstrates no evidence ofresidual left internal carotid artery aneurysm following flow diverting stentplacement. No new aneurysms or vascular malformations are identified. 2. Findings discussed with the patient at the time of completion of the diagnostic angiogram. ATTESTATION Signer name: Vera Townsend MD I attest that I was present for the entire procedure. I reviewed thestored images and agree with the report as written. Sedation attestation: I was present during the intra-service time asdocumented by IR nurse. Thank you for letting us participate in the care of this patient. If youare a health care provider and have any questions regarding this report,please contact the number below. For patients who have questions please contactthe health childcare teacher that requested your imaging first. Electronically signed by: Vera Townsend MD, [facility]([phone]), at 06/26/2023 9:47 AM Destiny Alfredo [facility] IR ORDERABLES * POCT Glucose (06/01/2023 7:04 AM EST) Glucose, POC 189 65 - 199 mg/dL [facility] Comment: Supplemental ranges: <140 mg/dL before meals <180 mg/dL all other times of the day Blood 06/01/2023 7:04 AM EST 06/01/2023 7:04 AM EST Destiny Alfredo [facility] POINT OF CARE TEST O RDERABLES [facility] [place] [address] documented in this encounter Visit Diagnoses Diagnosis Aneurysm of left internal carotid artery documented in this encounter Administered Medications Inactive Administered Medications - up to 3 most recent administrations Medication Order MAR Action Action Date Dose Rate Site acetaminophen (Tylenol) tablet 650 mg 650 mg, Oral, EVERY 4 HOURS PRN, Starting on 06/01/23 at 0946, Until 06/02/23 at 0433, Pain, Maximum dose of acetaminophen is 4,000 mg from all sources in 24 hours. When ordered for pain, acetaminophen should be given even when other ordered pain medications are indicated., Routine Given 06/01/2023 9:50 AM EST 650 mg fentaNYL (pf) (50 mcg/mL) multi-dose injection 25-50 mcg 25-50 mcg, Intravenous, EVERY 3 MIN PRN, Starting on Sun06/01/23 at 0706, Until Sun06/01/23 at 1157, Pain, per unit protocol, For use in Interventional Radiology (IR) only for procedural sedation with direct provider supervision and verbal order. - Start dose: 50 mcg (reduce dose to 25 mcg if history of sedation sensitivity). - Titration dose: 25-50 mcg IV, (based on patient response) every 3 minutes PRN to maintain procedural pain less than 2 per Pain Scale. Maximum dose: 50 mcg/dose, 250 mcg/hour, Angio/IR (Intra-Procedure), Routine Given 06/01/2023 8:38 AM EST 25 mcg Given 06/01/2023 8:21 AM EST 25 mcg heparin (porcine) (1,000 units/mL) injection 3,000 Units 3,000 Units, Intra-arterial, ONCE, 1 dose, On Sun06/01/23 at 0730, For radial artery access. For use in Interventional Radiology (IR) only for procedure with direct provider supervision and verbal order., Angio/IR (Intra-Procedure), Routine Given 06/01/2023 8:33 AM EST 3,000 Units iodixanoL (Visipaque) (320 mg/mL) injection solution 1-400 mL 1-400 mL, Intra-arterial, ONCE, 1 dose, On Sun06/01/23 at 0730, For intra-procedural use by proceduralist., Angio/IR (Intra-Procedure), Routine Given 06/01/2023 7:30 AM EST 20 mLs lidocaine (Xylocaine) 1% (10 mg/mL) injection 10 mg 10 mg, Subcutaneous, ONCE, 1 dose, On Sun06/01/23 at 0730, For use in Interventional Radiology (IR) only for procedure with direct provider supervision and verbal order., Angio/IR (Intra-Procedure), Routine Given 06/01/2023 8:30 AM EST 10 mg midazolam (pf) (Versed) (1 mg/mL) multi-dose injection 0.5-1 mg 0.5-1 mg, Intravenous, EVERY 3 MIN PRN, Starting on Sun06/01/23 at 0706, Until Sun06/01/23 at 1157, Sedation, For use in Interventional Radiology (IR) only for procedural sedation with direct provider supervision and verbal order. - Start dose: 1 mg (Reduce dose to 0.5 mg if history of sedation sensitivity). - Titration dose: 0.5 mg - 1 mg (based on patient response) every 3 minutes PRN to obtain RASS score of -3. Maximum dose: 1 mg/dose, 5 mg/hour., Angio/IR (Intra-Procedure), Routine Given 06/01/2023 8:21 AM EST 0.5 mg nitroGLYcerin 100 mcg/mL intracoronary dilution 200 mcg 200 mcg, Intra-arterial, ONCE, 1 dose, On Sun06/01/23 at 0730, For radial artery access. For use in Interventional Radiology (IR) only for procedure with direct provider supervision and verbal order., Angio/IR (Intra-Procedure), Routine Given 06/01/2023 8:33 AM EST 200 mcg sodium chloride 0.9 % (flush) (BD PosiFlush Normal Saline 0.9) flush 5 mL 5 mL, Intravenous, 2 TIMES DAILY, First dose on Sun06/01/23 at 0900, Until Discontinued, Angio/IR (Day of Procedure), Routine Given 06/01/2023 8:30 AM EST 5 mLs sodium chloride 0.9% infusion 1,000 mL, at 100 mL/hr, Intravenous, CONTINUOUS, Starting on Sun06/01/23 at 0730, Until Sun06/01/23 at 1157, Angio/IR (Day of Procedure) New Bag 06/01/2023 7:48 AM EST 1,000 mLs 100 mL/hr verapamiL (Isoptin) (2.5 mg/mL) injection 2.5 mg 2.5 mg, Intra-arterial, ONCE, 1 dose, On Sun06/01/23 at 0730, Administer over 2 Minutes, For radial artery access. For use in Interventional Radiology (IR) only for procedure with direct provider supervision and verbal order., Angio/IR (Intra-Procedure) Given 06/01/2023 8:33 AM EST 2.5 mg 30 mL/hr documented in this encounter Care Teams Digital Media Associate Relationship Specialty Start Date End Date Hai Lopez DO [address] [place] [address] PCP - General Family Medicine 10/10/17 documented as of this encounter
--- OUTSIDE RECORDS SUMMARY | 2024-05-26 12:41 | XMS_ITS | Clinical Summary ---
Author Organization Counts Include [facility] [address] Care Team Providers Care Pot Liner Name Role Phone Chengrosemary Hai Nicole DO Primary Care Provider [phone] Allergies Active Allergy Reactions Criticality Noted Date Comments Aspirin High 04/06/2015 Other reaction(s): GI Upset Other Reaction(s): GI Upset Celecoxib High 04/06/2015 Other reaction(s): GI Upset Other Reaction(s): GI Upset Fluoxetine Fluoxetine Hcl High 02/13/2023 CIS - BAD RASH Other Reaction(s): rash Metformin Diarrhea,Nausea And Vomiting High 04/06/2015 Other Reaction(s): diarrhea Naproxen High 02/13/2023 Other Reaction(s): Stomach intolerance Rofecoxib High 04/06/2015 Other reaction(s): bleeding Other Reaction(s): bleeding Medications Medication Sig Dispensed Refills Start Date End Date Status ONETOUCH ULTRA TEST Strip 0 01/18/2015 Active ONE TOUCH DELICA 33 gauge Misc 0 01/18/2015 Active lisinopril (PRINIVIL;ZESTRIL) 20 mg Tablet Take 20 mg by mouth daily. 0 03/21/2015 Active albuterol (PROVENTIL HFA;VENTOLIN HFA;PROAIR) 90 mcg/actuation HFA Aerosol Inhaler Inhale 2 puffs into the lungs every 4 hours as needed for Wheezing. Use with spacer Active BD ULTRA-FINE MINI PEN NEEDLE 31 gauge x 3/16 Needle USE DAILY WITH LANTUS 0 09/13/2018 Active JARDIANCE 25 mg Tablet 0 09/11/2018 Active insulin lispro (HUMALOG) Insulin Pen Inject 2-20 Units subcutaneously as needed. Active PARoxetine (Paxil) 20 mg Tablet TK 1 T PO D 06/26/2019 Active pregabalin (LYRICA) 150 mg Capsule Take by mouth 2 times daily. 05/08/2022 Active ProAir RespiClick 90 mcg/actuation Aerosol Powdr Breath Activated INHALE TWO PUFFS BY MOUTH EVERY 4 HOURS NEEDED FOR WHEEZING OR SHORTNESS OF BREATH 04/27/2022 Active meclizine (Antivert) 25 mg Tablet Take by mouth 2 times daily. Takes 50 mg in the morning and 50 mg at night 05/29/2022 Active clopidogreL (Plavix) 75 mg Tablet Take 1 tablet by mouth daily. Start 14 days prior to aneurysm procedure. 90 tablet 3 08/09/2022 Active pantoprazole EC (Protonix) 40 mg Tablet, Delayed Release (E.C.) Take 1 tablet by mouth daily. Start 14 days prior to aneurysm procedure. Stop taking omeprazole when you start this medication. 90 tablet 3 08/09/2022 Active Additional Information Patient not taking.Reported on 02/29/2024 multivitamin Capsule Take 1 capsule by mouth daily. Active Insulin Tresiba FlexTouch U-200 200 unit/mL (3 mL) Insulin Pen Inject 20 Units subcutaneously every evening. 09/13/2022 Active acetaminophen (Tylenol) 500 mg Tablet Take 2 tablets by mouth every 6 hours as needed for Pain (mild pain (1-3)). 30 tablet 1 09/13/2022 Active aspirin 81 mg Tablet, Chewable Take 81 mg by mouth daily. 30 tablet 3 09/14/2022 Active fluticasone propionate (Flonase) 50 mcg/actuation [place], Suspension 2 sprays by Each Nare route daily. 11/29/2022 Active verapamiL (Calan) 40 mg tablet Take 40 mg by mouth 2 times daily. 11/25/2022 Active rimegepant (Nurtec ODT) 75 mg disintegrating tablet Take 75 mg by mouth daily. Active verapamiL SR (Calan-SR) 120 mg ER (SR) tablet Take 120 mg by mouth daily. Active Aimovig Autoinjector 140 mg/mL Auto-Injector INJECT 140MG UNDER THE SKIN EVERY MONTH 02/18/2024 Active FreeStyle Coby 2 Sensor Kit USE DIRECTED TO KEEP HBA1C LESS THAN 6.5% 02/25/2024 Active Baqsimi 3 mg/actuation [place], Non-Aerosol INHALE 1 SPRAY NEEDED FOR BLOOD SUGAR LESS THAN 60 MAXIMUM DAILY DOSE = 3MG A SINGLE DOSE 11/06/2023 Active hydrOXYchloroQUINE (Plaquenil) 200 mg tablet Take 1 tablet by mouth Daily at Noon. 02/08/2024 Active prochlorperazine (Compazine) 5 mg tablet TAKE ONE TO TWO TABLETS BY MOUTH THREE TIMES A DAY NEEDED FOR NAUSEA AND VOMITING, HEADACHE Active Rybelsus 7 mg tablet Take 1 tablet by mouth Daily at Noon. 01/04/2024 Active Januvia 100 mg tablet Take 1 tablet by mouth Daily at Noon. 02/08/2024 Active Active Problems Problem Noted Date Diagnosed Date Aneurysm of left internal carotid artery 022 Overview (07/04/2023): 6mm LICA aneurysm found on dizziness workup. Brother with small aneurysm being followed with observation. 09/11/22 Pipeline stent placement, Dr. Townsend Placed on ASA and Plavix following stent placement 05/2023 DSA no residual aneurysm, DAPT dc'd Assessment & Plan (01/03/2023 4:21 PM EDT): Doing well with expected clinical and radiographic findings following stent assisted treatment of unruptured aneurysms. Migraine headaches may be triggered by inflammatory response to treatment/stent placement/new medications, and will likely improve with time. No findings concerning for other neurologic problem. Continue DAPT. Repeat angiogram in 3 months, will likely stop Plavix at that time. 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 Left sided sciatica 09/27/2018 History of alcohol abuse 09/27/2018 Overview (09/27/2018): Abstinent x 20 years Chronic low back pain 07/14/2015 Hypertension 04/06/2015 Chronic obstructive pulmonary disease 06/05/2014 Diabetes mellitus 04/16/2014 Cigarette smoker 02/27/2014 Gastro-esophageal reflux 08/25/2011 HLD (hyperlipidemia) 08/25/2011 Resolved Problems Problem Noted Date Diagnosed Date Resolved Date Chronic back pain 01/27/2015 07/14/2015 Adiposity 02/04/2013 09/27/2018 Mechanical low back pain 08/02/2008 Encounters Date Type Department Care Team Description 02/29/2024 11:00 AM EDT Office [place] [address] Berry Elaine PA Dizziness; Vertigo; Sensorineural hearing loss (SNHL) of both ears; Vestibular migraine 02/29/2024 10:15 AM EDT Office Visit Audiology at [address] [address] Valeria Scott, AUD Sensorineural hearing loss, bilateral; Disequilibrium; Tinnitus of right ear 02/29/2024 Travel 02/28/2024 11:45 AM EDT Office Visit Audiology at [address] [address] Valeria Scott, AUD Dizziness 02/27/2024 Travel from Last 3 Months Family History Medical History Relation Comments Amblyopia Son Glaucoma Neg Hx Macular Degeneration Neg Hx Retinal Detachment Neg Hx Relation Status Comments Son Social History Tobacco Use Types Packs/Day Years Used Date Smoking Tobacco: Every Day Cigarettes 0.3 40 Smokeless Tobacco: Never Tobacco Cessation:Ready to Q uit: Not Asked; Counseling Given: Not Answered Comments:down to 5 cigs. Alcohol Use Standard Drinks/Week Comments No 0 (1 standard drink = 0.6 oz pur e alcohol) IPV Inpatient Questions Answer Date Recorded Does Anyone Try to Keep You From Having Contact with Others or Doing Things Outside Your Home? no 09/11/2022 Feels Threatened by Someone no 030 12/2022 Feels Unsafe at Home or Work/School no 09/11/2022 Physical Signs of Abuse Present Not on file 09/11/2022 Sex and Gender Information Value Date Recorded Sex Assigned at Not on file Gender Identity Not on file Sexual Orientation Not on file Last Filed Vital Signs Vital Sign Reading Time Taken Comments Blood Pressure 94/47 06/01/2023 11:30 AM EST Pulse 83 06/01/2023 8:55 AM EST Temperature 36.8 ??C (98.3 ??F) 06/01/2023 7:00 AM ES T Respiratory Rate 15 06/01/2023 8:55 AM EST Oxygen Saturation 86% 06/01/2023 11:30 AM EST Inhaled Oxygen Concentration - - Weight 93.9 kg (207 lb) 02/29/2024 11:05 AM EDT Height 165.1 cm (5' 5) 02/29/2024 11:05 AM EDT Body Mass Index 34.45 02/29/2024 11:05 AM EDT Plan of Treatment Health Maintenance Due Date Last Done Comments CT Colonography 1960 FIT DNA 1960 FIT 1960 Sigmoidoscopy 1960 Pneumococcal Vaccine: At-Ris k 5-64yrs (1 of 2 - PCV) 09/11/1965 DM Urine Microalbumin yearly 09/11/1969 HIV screen 09/11/1977 Hepatitis C Screening 09/11/1977 Tetanus/Diphtheria/Pertussis Vaccines (1 - Tdap) 09/11/1978 HPV test 09/11/1989 PAP Smear 09/11/1989 Breast Cancer Share Decision Needed 1999 Breast Cancer screening 1999 Zoster vaccine (1 of 2) 09/11/2009 Advance Directive 09/11/2014 DM Hemoglobin A1c 12/13/2022 2022, , 09/27/2018 Lipid Screening 09/28/2023 09/27/2018 DM Creatinine yearly 01/04/2024 01/03/2023, 09/13/2022, 2022, Additional history exists DM Opthalmology Exam 02/16/2024 02/15/2023, 08/01/19 20 Covid-19 Vaccine (1 - 2023-2 5 season) 2024 Influenza (Flu) vaccine (1 o f 1 - Influenza standard series) 03/09/2024 Colonoscopy 10/11/2027 10/10/2017, 10/10/2017 Colorectal Cancer Screening 10/11/2027 Sigmoidoscopy (10 year) with FIT yearly 10/11/2027 10/10/2017, 10/10/2017 Medical Devices Implanted Type Area Dock Manager Device Identifier Shelf Expiration Date Model / Serial / Lot Coil Embolization Stent Pipeline [id number] N Coat [id number] Implanted:Qty: 1 on 09/11/2022 by Vera Townsend MD IMPLANTS Left: Arterial [employer] - [employer] [id number] / / [id number] Description:left ica aneurys m stent Procedures Procedure Name Priority Date/Time Associated Diagnosis Comments COMPREHENSIVE HEARING TEST Routine 02/29/2024 10:15 AM EDT COMPREHENSIVE METABOLIC PANEL Routine 01/03/2023 12:58 PM EDT BUI (nonalcoholic steatohepatitis) History of hepatitis C HEMOGLOBIN A1C Routine 2022 2:35 AM EST LIPID PANEL (REFLEX DIRECT LDL) Routine 09/27/2018 10:44 AM EDT Class 1 obesity COLONOSCOPY Routine 10/10/2017 3:58 PM EDT from Last 3 Months or Most Recently Relevant to Health Maintenance Results * Comprehensive hearing test (02/29/2024 10:15 AM EDT) 02/29/2024 10:1 5 AM EDT Narrative AUDBASE COMP - 02/29/2024 10:15 AM EDT Recommendations: -Follow up per Berry Elaine PA-C in ENT. Procedure Note Unknown - 02/29/2024 Recommendations: -Follow up per Berry Elaine PA-C in ENT. Valeria Bryan Tyler [facility] ORDERABLES AUDBASE COMP * (ABNORMAL) Comprehensive metabolic panel (non-fasting) (01/03/2023 12:58 PM EDT) Glucose 149 65 - 199 mg/dL [facility] Comment:Diabetes: >=200 mg/d L plus symptoms Blood Urea Nitrogen 15 8 - 18 mg/dL [facility] Creatinine 0.66(L) 0.70 - 1.20 mg/dL [facility] Sodium 139 135 - 145 mmol/L [facility] Potassium 4.3 3.5 - 5.0 mmol/L [facility] Comment: Please note: ??Patients with WBC >100,000 may have falsely elevated Potassium levels. ??For accurate Potassium quantification in these patients send serum separator tube (gold top) for subsequent determinations. ??Contact the Clinical Chemistry Laboratory if there are any questions. Chloride 101 98 - 107 mmol/L [facility] Carbon Dioxide 25 22 - 31 mmol/L [facility] Anion Gap 13 5 - 15 mmol/L [facility] Calcium 9.4 8.5 - 10.5 mg/dL [facility] Protein, Total 7.1 6.1 - 8.0 g/dL [facility] Albumin 4.5 3.2 - 5.2 g/dL [facility] Aspartate Aminotransferase 19 0 - 30 unit/L [facility] Alanine Aminotransferase 13 0 - 30 unit/L [facility] Alkaline Phosphatase 109(H) 35 - 105 unit/L [facility] Bilirubin, Total 0.3 0.2 - 1.3 mg/dL [facility] Est Glomerular Filtration Rate 99 >=60 mL/min/1. 73 m?? [facility] Comment: This patient's estimated GFR was calculated using the 2020 CKD-EPI equation. The estimated GFR can vary from the measured GFR by up to 30% in the absence of rapidly changing kidney function. Assessment of the estimated GFR is not appropriate when creatinine concentrations are rapidly changing. For clinical situations in which a more precise estimate of GFR is necessary, consider alternative methods of GFR estimation such as a 24-hour urine creatinine clearance. Assignment of CKD stage 1-5 for patients with an eGFR near the transition point between stages may be based on clinical assessment of muscle mass and symptoms in addition to eGFR. Blood 01/03/2023 12:5 8 PM EDT 01/03/2023 1:10 PM EDT Narrative Resulting Agency Comment Spec In Lab Yuliana Hernandez MD CHEMISTRY ORDERABLES [facility] [place] [address] * (ABNORMAL) Hemoglobin A1c (2022 2:35 AM EST) Hemoglobin A1c 8.0(H) 4.3 - 5.6 % [facility] Comment: Reference Range: 4.3 - 5.6% 5.7 - 6.4% - Increased Risk of Developing Diabetes Mellitus >= 6.5% - Consistent with diagnosis of Diabetes Mellitus In the absence of hyperglycemia (i.e. plasma glucose > 200 mg/dL) or classic symptoms of hyperglycemia a repeat measurement of HbA1c should be performed on a separate sample to confirm the diagnosis. Diagnosis and Classification of Diabetes Mellitus, Diabetes Care 2013; 36: Suppl. 1, S67-06 Estimated Average Glucose 182 mg/dL [facility] Comment: eAG equivalents for HbA1c percentages: HbA1c(%) ?eAG(mg/dL) 6.0 ?126 6.5 ?140 7.0 ?154 7.5 ?169 8.0 ?183 8.5 ?197 9.0 ?212 9.5 ?226 10.0 ? 240 Limitations: The eAG calculation has not been validated on women, individuals below 18 years old and above 70 years old, and individuals with hemoglobinopathies. Additional resources are available on the ADA website. Michele CAMPOS, Destinee J, Danelle R, et al. ??Translating the A1C assay into estimated average glucose values. ??Diabetes Care 2008:31(8):2355-3328. Blood Venous Draw / Unknown 2022 2:35 AM EST 2022 1:52 PM EST Narrative Resulting Agency Comment Spec In Lab Denise Hogue APRN CHEMISTRY ORDERABLE S [facility] [place] [address] * Lipid Panel (09/27/2018 10:44 AM EDT) [facility] Cholesterol, Total 257 mg/dL [facility] Comment: Lower Risk: <200 mg/dL Average Risk: 200-239 mg/dL Higher Risk: >uf=185 mg/dL Triglyceride 414 mg/dL [facility] Comment: Average Risk/Lower Risk: <150 mg/dL Borderline High Risk: 150-199 mg/dL High Risk: 200-499 mg/dL Very High Risk: >zl=297 mg/dL HDL Cholesterol 45 mg/dL [facility] Comment: Males: ?? Higher Risk: <40 mg/dL Females: ?? HIgher Risk: <50 mg/dL LDL Cholesterol Not Calculated [facility] Comment: Since a calculated LDL value is not valid for triglycerides greater than 400 mg/dl, a direct LDL determination is performed instead. Lowest Risk: <100 mg/dL Lower Risk: 100-129 mg/dL Borderline High Risk: 130-159 mg/dL High Risk: 160-189 mg/dL Very High Risk: >gd=839 mg/dL Cholesterol/HDL Ratio 5.7 ratio [facility] Lipid Interpretation See Note [facility] Comment: Lipid management should be guided by a patient? s ASCVD risk, goals and preferences. ACC/AHA Guidelines recommend high intensity statin if clinical ASCVD or LDL greater than or equal to 190 mg/dL. http://[employer].com/WVS-KLA-Qyhxkmpxu Adults aged 40-75 with LDL 70-189 mg/dL should have their 10 year ASCVD risk estimated with the ACC/AHA ASCVD risk civil estimator http://tools.acc.org/IAEDX-Mnht-Ghsewgkhb/ Statin should be discussed if risk greater than or equal to 7.5% in non-diabetics. With diabetes, moderate intensity statin is recommended if risk less than 7.5%, high intensity if risk greater than or equal to 7.5%. Annual lipid monitoring on statins is not necessary. Evaluate secondary causes of Triglycerides greater than 500 mg/dL or LDL greater than 190 mg/dL: See table 6 of ACC/AHA Guideline. Lifestyle modification is a critical component of ASCVD risk reduction. Blood specimen (specimen) 09/27/2018 10:44 AM EDT 09/27/2018 12:43 PM EDT Narrative Resulting Agency Comment Spec In Lab Sri Briseno MD CHEMISTRY ORDERABLES [facility] [place] [address] * COLONOSCOPY (10/10/2017 3:58 PM EDT) COLONOSCOPY [facility] Endoscopy Procedure Date: 10/10/2017 3:58 PM ? Patient Name: Mary Beth Holman ? N: [id number] ? Date of : 1960 ? Age: 57 ? Order #: [id number] ? Instrument Name: [id number] ? Procedure: ? Colonoscopy Indications: ? Chronic diarrhea Providers: ? Richmond Orellana MD, Victor Manuel Darden. ? SHAKIRA Terrell, Taylor Sood MD: ?Hai Gallegos MD Medicines: ? Midazolam 1 mg IV, Fentanyl 100 ? micrograms IV Complications: ? No immediate complications. Procedure: ? Pre-Anesthesia Assessment: ? - Prior to the procedure, a History ? and Physical was performed, and ? patient medications and allergies ? were reviewed. The patient is ? competent. The risks and benefits of ? the procedure and the sedation ? options and risks were discussed with ? the patient. All questions were ? answered and informed consent was ? obtained. Patient identification and ? proposed procedure were verified by ? the physician in the pre-procedure ? area. Mental Status Examination: ? alert and oriented. Airway ? Examination: normal oropharyngeal ? airway and neck mobility. Respiratory ? Examination: clear to auscultation. ? CV Examination: normal. Prophylactic ? Antibiotics: The patient does not ? require prophylactic antibiotics. ? Prior Anticoagulants: The patient has ? taken no previous anticoagulant or ? antiplatelet agents. ASA Grade ? Assessment: II - A patient with mild ? systemic disease. After reviewing the ? risks and benefits, the patient was ? deemed in satisfactory condition to ? undergo the procedure. The anesthesia ? plan was to use moderate sedation / ? analgesia (conscious sedation). ? Immediately prior to administration ? of medications, the patient was ? re-assessed for adequacy to receive ? sedatives. The heart rate, ? respiratory rate, oxygen saturations, ? blood pressure, adequacy of pulmonary ? ventilation, and response to care ? were monitored throughout the ? procedure. The physical status of the ? patient was re-assessed after the ? procedure. ? The procedure, indications, benefits, ? risks and alternatives were explained ? to the patient. Specifically ? discussed were potential ? complications including, but not ? limited to, bleeding, perforation, ? infection, missing a cancer, and ? adverse medication reactions. The ? patient was placed in the left ? lateral decubitus position, and a ? digital rectal exam was performed. ? The Colonoscope was inserted in the ? anus and under direct visualization, ? advanced to the terminal ileum. ? Careful inspection was made as the ? colonoscope was withdrawn. The ? colonoscopy was performed without ? difficulty. The patient tolerated the ? procedure well. The quality of the ? bowel preparation was excellent. ? Findings: ? The perianal and digital [...] ?- One 5 mm polyp at the recto-sigmoid ? colon, removed with a cold snare. ? Resected and retrieved. ? - Diverticulosis in the sigmoid colon ? and in the descending colon. ? - The examined portion of the ileum ? was normal. Recommendation: ?- Discharge patient to home. ? Attending Participation: ? I personally performed the entire procedure. ? ___ Richmond Orellana MD 10/10/2017 4:29:55 PM This report has been signed electronically. Number of Addenda: 0 Note Initiated On: 10/10/2017 3:58 PM [employer]ATION 10/10/2017 3:58 PM EDT Hai Gallegos MD GENERAL SURGICAL ORDERABLES [employer] from Last 3 Months or Most Recently Relevant to Health Maintenance Advance Directives * Attempt Cardiopulmonary Resuscitation - Inpatient (Latest Code Status on File) Date Activated Date Inactivated Comments 06/01/2023 7:13 AM 06/02/2023 4:38 AM Question Answer Comments Code Status decision made by: Patient * Attempt Cardiopulmonary Resuscitation - Inpatient Date Activated Date Inactivated Comments 09/11/2022 4:28 PM 09/13/2022 6:07 PM Question Answer Comments Code Status decision made by: Patient * Attempt Cardiopulmonary Resuscitation - Inpatient Date Activated Date Inactivated Comments 08/04/2022 10:29 AM 08/05/2022 4:39 AM Question Answer Comments Code Status decision made by: Patient * Full Code Date Activated Date Inactivated Comments 02/23/2017 8:34 AM 02/23/2017 1:50 PM Question Answer Comments Does patient have capacity to make decision: Yes Care Teams Pot Liner Relationship Specialty Start Date End Date Hai Lopez DO [address] [place] [id number] PCP - General Family Medicine 10/10/17
--- OUTSIDE RECORDS SUMMARY | 2024-05-26 12:41 | XMS_ITS | Encounter Summary ---
Author Organization [facility] [place] [address] Care Team Providers Care Emergency Registrar Name Role Phone ChengHai riley Corey MOORE Primary Care Provider [phone] Encounter Details Date Type Department Care Team (Latest Contact Info) Description 03/16/2023 8:00 AM EDT - 03/16/2023 11:59 PM EDT Hospital [place] [address] Perla Hernandez MD [facility] [place] [address] BUI (nonalcoholic steatohepatitis); History of hepatitis C Discharge Disposition: Home Social History Tobacco Use Types Packs/Day Years Used Date Smoking Tobacco: Every Day Cigarettes 0.3 40 Smokeless Tobacco: Never Comments:down to 5 cigs. Alcohol Use Standard Drinks/Week Comments No 0 (1 standard drink = 0.6 oz pur e alcohol) [facility] Inpatient Questions Answer Date Recorded Does [...] Sig Dispensed Refills Start Date End Date fluticasone propionate (Flonase) 50 mcg/actuation [place], Suspension 2 sprays by Each Nare route [...] with spacer documented as of this encounter Plan of Treatment Not on file documented as of this encounter Procedures Procedure Name Priority Date/Time Associated Diagnosis Comments US ABDOMEN LIMITED HEPATOLOGY PROTOCOL Routine 03/16/2023 8:17 AM EDT BUI (nonalcoholic steatohepatitis) History of hepatitis C documented in this encounter Results * US Abdomen Limited Hepatology Protocol (03/16/2023 8:17 AM EDT) Anatomical Region Laterality Modality Abdomen Ultrasound 03/16/2023 8:18 AM EDT Impressions 03/16/2023 8:28 AM EDT 1. Hepatomegaly with normal echotexture 2. No focal lesion is seen in the liver. 3. No ascites Thank you for letting us participate in the care of this patient. If you are a health care provider and have any questions regarding this report, please contact the number above. For patients who have questions, please contact the health pet care assistant that requested your imaging first. Tonja Ortiz [facility] & Dept Chair - Rad Electronically Signed Final Report ?? 03/16/2023 08:28 am Narrative 03/16/2023 8:28 AM EDT Abdominal ? (Signed Final 03/16/2023 08:28 am) PATIENT INFO: ID #: ? [id number] ?: ??[birth year] (62 yrs)(F) Name: ? MARY BETH HOLMAN ?Visit Date: 03/16/2023 08:18 am PERFORMED BY: Attending: ?Diana REBOLLAR, Tonja Gonzalez. Resident: ? Clinton REBOLLAR, Esthela Raphael Performed By: ? Aquilino Daren ALLEN Referred By: ?PERLA HERNANDEZ Location: ? [place] SERVICE(S) PROVIDED: [facility] - Hepatology Protocol - Abdominal ?18642 Limited Survey Single Organ or Quadrant - [id number] INDICATIONS: hx Hep C, F3, HCC screening COMPARISON: US: Hepatology 02/23/22 ------ LIVER: ------ Right Lobe Length: ?? 17.5 ?? cm Echogenicity/Echotexture: ?? Normal Portal Veins: ?Hepatopetal Comment: ?No focal lesion seen. Hepatomegaly mild. GALLBLADDER: Cholelithiasis: ?No stones visualized Wall Thickness: ?Normal wall thickness Focal Tenderness: ?Negative sonographic Becerril's sign BILIARY TRACT: Intrahepatic Ducts: ?? Normal Extrahepatic Ducts: ?? Normal Common Duct Size: ? 3.9 ? mm FLUID COLLECTIONS: Ascites not present on 4 quadrant evaluation. Procedure Note Tonja Ortiz MD - 03/16/2023 Abdominal (Signed Final 03/16/2023 08:28 am) PATIENT INFO: ID #: [id number] : 58 (62 yrs)(F) Name: MARY BETH HOLMAN Visit Date: 03/16/2023 08:18 am PERFORMED BY: Attending: Tonja Ortiz MD Resident: Esthela Alonzo MD Performed By: Daren Rolle RDMS Referred By: PERLA HERNANDEZ Location: [place] SERVICE(S) PROVIDED: [facility] - Hepatology Protocol - Abdominal [id number] Limited Survey Single Organ or Quadrant - [id number] INDICATIONS: hx Hep C, F3, HCC screening COMPARISON: US: Hepatology 02/23/22 ------ LIVER: ------ Right Lobe Length: 17.5 cm Echogenicity/Echotexture: Normal Portal Veins: Hepatopetal Comment: No focal lesion seen. Hepatomegaly mild. GALLBLADDER: Cholelithiasis: No stones visualized Wall Thickness: Normal wall thickness Focal Tenderness: Negative sonographic Becerril's sign BILIARY TRACT: Intrahepatic Ducts: Normal Extrahepatic Ducts: Normal Common Duct Size: 3.9 mm FLUID COLLECTIONS: Ascites not present on 4 quadrant evaluation. IMPRESSION 1. Hepatomegaly with normal echotexture 2. No focal lesion is seen in the liver. 3. No ascites Thank you for letting us participate in the care of this patient. If you are a health care provider and have any questions regarding this report, please contact the number above. For patients who have questions, please contact the health pet care assistant that requested your imaging first. Tonja Ortiz, [facility] & Dept Chair - Rad Electronically Signed Final Report 03/16/2023 08:28 am Perla Hernandez MD IMG US GEN ORDERABLE S documented in this encounter Visit Diagnoses Diagnosis BUI (nonalcoholic steatohepatitis) Other chronic nonalcoholic liver disease History of hepatitis C Personal history of other infectious and parasitic disease documented in this encounter Care Teams Emergency Registrar Relationship Specialty Start Date End Date Hai Lopez DO [address] [place] [address] PCP - General Family Medicine 10/10/17 documented as of this encounter
--- OUTSIDE RECORDS SUMMARY | 2024-05-26 12:41 | XMS_ITS | Encounter Summary ---
Author Organization [facility] Address [facility] [place] [address] Care Team Providers Care Professional Services Specialist Name Role Phone Hai Lopez DO Primary Care Provider Encounter Details Date Type Department Care Team (Late st Contact Info) Description 03/23/2023 Orders Only [place] [address] Destiny Alfredo, SYSTEMS DEVELOPMENT MANAGER [facility] [place] [address] Type 2 diabetes mellitus with hyperglycemia, with long-term current use of insulin Social History Tobacco Use Types Packs/Day Years Used Date Smoking Tobacco: Every Day Cigarettes 0.3 40 Smokeless Tobacco: Never Comments:down to 5 cigs. Alcohol Use Standard Drinks/Week Comments No 0 (1 standard drink = 0.6 oz pur e alcohol) [facility] Inpatient Questions Answer Date Recorded Does [...] as of this encounter Visit Diagnoses Diagnosis Type 2 diabetes mellitus with hyperglycemia, with long-term current use of insulin documented in this encounter Care Teams Professional Services Specialist Relationship Specialty Start Date End Date Hai Lopez DO [address] [place] [address] PCP - General Family Medicine 10/10/17 documented as of this encounter
--- OUTSIDE RECORDS SUMMARY | 2024-05-26 12:41 | XMS_ITS | Encounter Summary ---
Author [facility] [place] [address] Care Team Providers Care Stone Gang Sawyer Name Role Phone Hai Lopez Primary Care Provider [phone] Encounter Details Date Type Department Care Team (Late st Contact Info) Description 11/20/2023 Notes [place] [phone] Ana Trinidad RN Social History Tobacco Use Types Packs/Day Years Used Date Smoking Tobacco: Every Day Cigarettes 0.3 40 Smokeless Tobacco: Never Comments:down to 5 cigs. Alcohol Use Standard Drinks/Week Comments No 0 (1 standard drink = 0.6 oz pur e alcohol) [facility] Inpatient Questions Answer Date Recorded Does Anyone [...] as of this encounter Progress Notes * Ana Trinidad RN - 11/20/2023 11:10 AM EDT On 11/20/23 we have carefully reviewed your case with the Clinical Vertigo Team including your dizziness questionnaire, medical history, and any other previous diagnostic tests performed/forwarded by your referring provider. It's our recommendation that you have an AE, vhit and appointment with ENT.Powerhouse Oiler has been made aware. documented in this encounter Plan of Treatment Not on file documented as of this encounter Visit Diagnoses Not on filedocumented in this encounter Care Teams Stone Gang Sawyer Relationship Specialty Start Date End Date Hai Lopez DO [address] [place] [address] PCP - General Family Medicine 10/10/17 documented as of this encounter
--- OUTSIDE RECORDS SUMMARY | 2024-05-26 12:41 | XMS_ITS | Encounter Summary ---
Author Organization [facility] [place] [address] Care Team Providers Care Fire Boat Engineer Name Role Phone Hai Lopez DO Primary Care Provider [phone] Encounter Details Date Type Department Care Team (Latest Contact Info) Description 02/27/2024 Travel Social History Tobacco Use Types Packs/Day [...] on filedocumented in this encounter Care Teams Fire Boat Engineer Relationship Specialty Start Date End Date Hai Lopez DO [address] [place] [address] PCP - General Family Medicine 10/10/17 documented as of this encounter
--- OUTSIDE RECORDS SUMMARY | 2024-05-26 12:41 | XMS_ITS | Encounter Summary ---
Author Organization [facility] Address [facility] [place] [address] Care Team Providers Care Campus Administrator Name Role Phone Chengrosemary Hai Nicole DO Primary Care Provider Reason for Visit * Reason Onset Date Comments Appointment 06/04/2023 Encounter Details Date Type Department Care Team (Late st Contact Info) Description 06/04/2023 Telephone [place] [phone] Tadeo Vasquez MD [facility] [place] [address] Appointment Social History Tobacco Use Types Packs/Day Years [...] Notes * Telephone Encounter - Laurence Jackson Adelso - 06/04/2023 8:06 AM EST Images from the original note were not included. 1 yr recall entered in h Inpatient Notes Received: 3 days ago Tadeo Vasquez MD [facility] Dope House Operator Helper Please have patient follow up in 1 year with a repeat MRA brain at that time documented in this encounter Plan of Treatment Not on file documented as of this encounter Visit Diagnoses Not on filedocumented in this encounter Care Teams Campus Administrator Relationship Specialty Start Date End Date Hai Lopez DO [address] [place] [address] PCP - General Family Medicine 10/10/17 documented as of this encounter
--- OUTSIDE RECORDS SUMMARY | 2024-05-26 12:41 | XMS_ITS | Encounter Summary ---
[place] [address] Care Team Providers Care Senior Environmental Technician Name Role Phone Hai Lopez DO Primary Care Provider [phone] Reason for Referral * Consultation (Routine) - Closed Specialty Diagnoses / Procedures Referred By Contac t Referred To Contact Otolaryngology Diagnoses Vertigo Balance disorder Benign paroxysmal vertigo, unspecified laterality Lucia Guadalupe APRN [address] [place] [address] [place] [address] [facility] Otolaryngology [address] [place] [phone] Referral ID Status Reason Start Date Expiration Date V isits Requested Visits Authorized [id number] Closed Consult, Test & Treat PCP Updated and/or Approved 05/08/2023 05/07/2024 6 6 Encounter Details Date Type Department Care Team (Late st Contact Info) Description 05/08/2023 Transcribe Orders eDH Incoming Referrals [phone] Lucia Guadalupe APRN [address] [place] [address] [place] [id number] Vertigo; Balance disorder; Benign paroxysmal vertigo, unspecified laterality Social History Tobacco Use Types Packs/Day Years [...] of this encounter Plan of Treatment Scheduled Referrals Name Type Priority Associated Diagnoses Orde r Schedule Referral to ENT Outpatient Referral Routine Vertigo Balance disorder Benign paroxysmal vertigo, unspecified laterality Ordered: 05/08/2023 documented as of this encounter Visit Diagnoses Diagnosis Vertigo Dizziness and giddiness Balance disorder Other symptoms involving nervous and musculoskeletal systems Benign paroxysmal vertigo, unspecified laterality documented in this encounter Care Teams Senior Environmental Technician Relationship Specialty Start Date End Date Hai Lopez DO [address] [place] [address] PCP - General Family Medicine 10/10/17 documented as of this encounter
--- OUTSIDE RECORDS SUMMARY | 2024-05-26 12:41 | XMS_ITS | Encounter Summary ---
Author Organization [facility] Address [facility] [place] [address] Care Team Providers Care Turner Machine Operator Name Role Phone Hai Lopez DO Primary Care Provider [phone] Reason for Visit * Consultation (Routine) - Closed Specialty Diagnoses / Procedures Referred By Contac t Referred To Contact Otolaryngology Diagnoses Vertigo Balance disorder Benign paroxysmal vertigo, unspecified laterality Lucia Guadalupe[address] [place] [address] [facility] [place] [address] [place] [phone] Referral ID Status Reason Start Date Expiration Date V isits Requested Visits Authorized [id number] Closed Consult, Test & Treat PCP Updated and/or Approved 05/08/2023 05/07/2024 6 6 Encounter Details Date Type Department Care Team (Late st Contact Info) Description 02/28/2024 11:45 AM EDT Office Visit Audiology at [address] [phone] Valeria Scott, [facility] [place] [address] Dizziness Social History Tobacco Use Types Packs/Day Years [...] of this encounter Progress Notes * Valeria Scott, AUD - 02/28/2024 11:45 AM EDT AUDIOLOGY SECTION [place], [place] VIDEO HEAD IMPULSE TEST (vHIT) 02/28/2024 Background: Mary Beth Dann Vilademarco was seen for Video Head Impulse testing at the request of Berry Elaine PA-C in otolaryngology. Please review the patient's medical record for a complete audiologic/otologic historyleading up to the present testing. vHIT is an ear-specific test that detects a deficiency of the vestibular-ocular reflex (VOR) and abnormalities of te lateral, anterior, and posterior semicircular canals. Method: Infrared goggles are placed around the patient's eyes to record eye movements during testing. With the patient seated in an upright position, pupil detection and calibration are recorded using the Qulsar ICS Impulse system. The patient is instructed to maintain their gaze on a marked spot infront of the during testing. Quick head rotations in the place of each semicircular canal are performed until 20 impulses are obtained for each canal. All computer generated results are analyzed by the cartography supervisor following testing to ensure accurate interpretation. Results: Mean gains are reported for each semicircular canal. Gains >= 0.80 or lateral canals and >= 0.70 for posterior and anterior are considered within normal limits. Right Lateral: 0.99 Anterior: 0.64 Posterior: 0.53 Left Lateral: 1.01 Anterior: 0.52 Posterior: 0.60 Summary/Interpretation: Abnormally low gain elicited from right anterior, left anterior, right posterior, and left posterior semicircular canals without evidence of refixation saccades. Reduced gain values of little clinical significance given lack of significant saccades in the affected canal. These reduced gain values may be the result of patient's resistance to examiner-controlled head movement when testing in this plane. vHIT is interpreted as within normal limits. Recommendations: Follow up as recommended by otolaryngology. Lori Jameson (Kate) [facility] Clinical Station Cashier [facility] [phone] documented in this encounter Plan of Treatment Scheduled Referrals Name Type Priority Associated Diagnoses Orde r Schedule Referral to ENT Outpatient Referral Routine Vertigo Balance disorder Benign paroxysmal vertigo, unspecified laterality Ordered: 05/08/2023 documented as of this encounter Visit Diagnoses Diagnosis Dizziness Dizziness and giddiness documented in this encounter Care Teams Turner Machine Operator Relationship Specialty Start Date End Date Hai Lopez DO [address] [place] [address] PCP - General Family Medicine 10/10/17 documented as of this encounter
--- OUTSIDE RECORDS SUMMARY | 2024-05-26 12:41 | XMS_ITS | Encounter Summary ---
Author Organization [facility] Address [facility] [place] [address] Care Team Providers Care Prn Physical Therapist Name Role Phone Hai Lopez Primary Care Provider [phone] Encounter Details Date Type Department Care Team (Late st Contact Info) Description 02/29/2024 11:00 AM EDT Office [place] [address] Berry Elaine PA [facility] [place] [address] Dizziness; Vertigo; Sensorineural hearing loss (SNHL) of both ears; Vestibular migraine Social History Tobacco Use Types Packs/Day Years Used Date Smoking Tobacco: Every Day Cigarettes 0.3 40 Smokeless Tobacco: Never Comments:down to 5 cigs. Alcohol Use Standard Drinks/Week Comments No 0 (1 standard drink = 0.6 oz pur e alcohol) [facility] Inpatient Questions Answer Date Recorded Does Anyone [...] - Inhaled Oxygen Concentration - - Weight 93.9 kg (207 lb) 02/29/2024 11:05 AM EDT Height 165.1 cm (5' 5) 02/29/2024 11:05 AM EDT Body Mass Index 34.45 02/29/2024 11:05 AM EDT documented in this encounter Progress Notes * Berry Elaine PA - 02/29/2024 11:00 AM EDT [facility] Berry Elaine PA-C 02/29/24 11:12 AM [place], [place] [address] Office Patient Name: Mary Beth Holman Date of : 1960 PCP: Hai Lopez DO Chief Complaint: Dizziness This patient is seen in consult today at the request of their primary caregiver and the referring provider, Lucia Guadalupe HPI: Mary Beth Holman is a 63 y.o. female who presents to clinic with a chief complaint of dizziness Patient reports to clinic to discuss her nearly 15 years history of dizziness. Dizziness originallystarted as a sensation of distinct room spinning that occurred when she was rolling over in bed from her left or right. She reports this was evaluated 15 years ago and she was recommended to take meclizine to treat this. She has been taking meclizine twice a day every day for the last 15 years. Shehas been evaluated by physical therapy and [facility] and was instructed to perform canal repositioning maneuver that does not resolve symptoms. About a year ago she started to experience a newonset of dizziness of a different quality. This is described as a rocking/waving sensation that occu rred both when walking and sitting still. Initially this was a constant sensation but has improved slowly over the last year or so. Now is only getting occasionally. She denies any otologic symptoms including unilateral hearing loss, tinnitus or fullness. She denies significant pain, drainage, ear s urgeries. She does have a history of ear infections as a child but none recently. She has a significant history of migraines that were very severe when she was younger, improved but have been returning. 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 She does report occasional flashes of color and squiggly lines when sheis dizzy. She also has a history significant for diabetes with significant, bilateral peripheral neuropathy. Previous workup for dizziness revealed incidental finding of left internal carotid artery aneurysm.This was stented without complication but no significant change in her dizziness symptoms. 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 Vaping Use Vaping status: Never Used Substance Use Topics Alcohol use: No Drug use: Yes Types: Marijuana Comment: gummies Outpatient Medications Marked as Taking for the 02/29/24 encounter (Office Visit) with Berry Elaine PA Medication Sig Dispense Refill Aimovig Autoinjector 140 mg/mL Auto-Injector INJECT 140MG UNDER THE SKIN EVERY MONTH FreeStClari Coby 2 Sensor Kit USE DIRECTED TO KEEP HBA1C LESS THAN 6.5% hydrOXYchloroQUINE (Plaquenil) 200 mg tablet Take 1 tablet by mouth Daily at Noon. prochlorperazine (Compazine) 5 mg tablet TAKE ONE TO TWO TABLETS BY MOUTH THREE TIMES A DAY NEEDED FOR NAUSEA AND VOMITING, HEADACHE Januvia 100 mg tablet Take 1 tablet by mouth Daily at Noon. rimegepant (Nurtec ODT) 75 mg disintegrating tablet Take 75 mg by mouth daily. fluticasone propionate (Flonase) 50 mcg/actuation [place], Suspension 2 sprays by Each Nare route daily. Insulin Tresiba FlexTouch U-200 200 unit/mL (3 mL) Insulin Pen Inject 20 Units subcutaneously everyevening. acetaminophen (Tylenol) 500 mg Tablet Take 2 tablets by mouth every 6 hours as needed for Pain (mild pain (1-3)). 30 tablet 1 aspirin 81 mg Tablet, Chewable Take 81 mg by mouth daily. 30 tablet 3 pregabalin (LYRICA) 150 mg Capsule Take by mouth 2 times daily. meclizine (Antivert) 25 mg Tablet Take by mouth 2 times daily. Takes 50 mg in the morning and 50 mgat night PARoxetine (Paxil) 20 mg Tablet TK 1 T PO D BD ULTRA-FINE MINI PEN NEEDLE 31 gauge x 3/16 Needle USE DAILY WITH LANTUS 0 JARDIANCE 25 mg Tablet 0 insulin lispro (HUMALOG) Insulin Pen Inject 2-20 Units subcutaneously as needed. lisinopril (PRINIVIL;ZESTRIL) 20 mg Tablet Take 20 mg by mouth daily. 0 albuterol (PROVENTIL HFA;VENTOLIN HFA;PROAIR) 90 mcg/actuation HFA Aerosol Inhaler Inhale 2 puffs into the lungs every 4 hours as needed for Wheezing. Use with spacer Physical Exam Constitutional: she is oriented to person, place, and time. she appears well- developed and well-nourished. Head: Normocephalic and atraumatic. Head is without abrasion and without contusion. Hair is normal. Ears: External ears without deformity. See documentation of otomicroscopy below. Hearing is grossly normal. Nose: No mucosal edema, rhinorrhea, nasal deformity or nasal septal hematoma. No epistaxis. Mouth/Throat: Uvula is midline, oropharynx is clear and moist and mucous membranes are normal. Mucous membranes are not pale and not dry. No oral lesions. No trismus in the jaw. Normal dentition. No uvula swelling. No oropharyngeal exudate, posterior oropharyngeal edema, posterior oropharyngeal erythema or tonsillar abscesses. Neck: Normal range of motion and phonation normal. Neck supple. No tracheal deviation, no edema andno erythema present. No thyroid mass present. Neuro: AOx3; Sharp sensation intact and symmetric bilaterally in all trigeminal branches Masseter strength is equal and symmetrical (CN V) TMJ is non tender Facial Nerve Function is strong and symmetric (CN VII) House-Brackman I Hitselberger Test - no hypoesthesia in either EAC (CNVII) Palate is midline and voice is strong (CN IX & X) Tongue is midline (CN XII) Shoulder elevation is strong and symmetrical (XI) Ocular Exam: No spontaneous or gaze evoked nystagmus, EOMI with smooth pursuit Eyes Closed Rhomberg - stable but with postural sway Tandem Rhomberg -unstable Tandem Gait -deferred Fukuda Test -deferred Redfield-Hallpike Position-deferred due to patient comfort Procedure Note: Binocular otomicroscopy was performed: Left side: Ear canal clear Tympanic membrane intact and translucent with normal landmarks. Middle ear well aerated Right side: Ear canal clear Tympanic membrane intact and translucent with normal landmarks. Middle ear well aerated Audiogram : Audiogram 02/29/2024 Right-mild to moderate sensorineural hearing loss Left-mild sensorineural hearing loss Tympanograms: Right- Type A; Left Type A Word discrimination: Right- 100% at 70dB; Left- 100% at 70dB vHIT-normal test; reduced gain in right and left anterior and posterior canals but no evidence of refixation saccades. Labs: None Radiology (I personally review the images): None Assessment: Mary Beth Holman is a 63 y.o. female with signs and symptoms most consistent with bilateral, symmetric sensorineural hearing loss and dizziness most consistent with chronic benign positional paroxysmal vertigo and new onset disequilibrium. Discussed her episodes of true vertigo that are triggered byrolling over in bed are very consistent with benign positional paroxysmal vertigo. Redfield-Hallpike test was deferred today as she experienced significant dizziness yesterday after vHIT testing and did not want to experience that again. Her description of her symptoms are very consistent with benign positional vertigo. Discussed her new onset disequilibrium is most likely multifactorial. She has beentaking meclizine twice a day every day for the last 15 years and this can certainly cause disequilibrium by preventing normal central compensatory vestibular changes. She also does report a significant history of migraines and does report some visual changes during her dizziness episodes. Discussedchronic migraines can cause dizziness but in her case I think her migraines are more contributory than causal. Also discussed her history of bilateral peripheral neuropathy can cause decreases in balance and a sensation of disequilibrium especially when weightbearing. For benign positional vertigo I recommended reevaluation by vestibular physical therapy here at [facility]. This will also help address her chronic disequilibrium and help stimulate compensatory changes asshe weans off of her meclizine. Also recommended a trial of lifestyle modifications for migraines. Informational packet was provided today. I asked her return to clinic in 6 months with a hearing test prior or sooner symptoms worsen or fail to improve. She was agreeable this and all questions were answered. Berry Elaine, MPAS, MS, PA-[place] [address] phone: [phone] documented in this encounter Plan of Treatment Not on file documented as of this encounter Visit Diagnoses Diagnosis Dizziness Dizziness and giddiness Vertigo Dizziness and giddiness Sensorineural hearing loss (SNHL) of both ears Vestibular migraine documented in this encounter Care Teams Prn Physical Therapist Relationship Specialty Start Date End Date Hai Lopez DO [address] [place] [address] PCP - General Family Medicine 10/10/17 documented as of this encounter
--- OUTSIDE RECORDS SUMMARY | 2024-05-26 12:41 | XMS_ITS | Encounter Summary ---
Author Organization [facility] [address] Care Team Providers Care Rust Proofer Name Role Phone Hai Lopez DO Primary Care Provider [phone] Encounter Details Date Type Department Care Team (Latest Contact Info) Description 04/03/2023 Travel Social History Tobacco Use Types Packs/Day [...] on filedocumented in this encounter Care Teams Rust Proofer Relationship Specialty Start Date End Date Hai Lopez DO [address] [place] [id number] PCP - General Family Medicine 10/10/17 documented as of this encounter
--- OUTSIDE RECORDS SUMMARY | 2024-05-26 12:42 | XMS_ITS | Encounter Summary ---
Author Organization [facility] [place] [address] Care Team Providers Care Steam Pressure Chamber Operator Name Role Phone Hai Lopez DO Primary Care Provider [phone] Encounter Details Date Type Department Care Team (Latest Contact Info) Description 01/03/2023 Travel Social History Tobacco Use Types Packs/Day [...] on filedocumented in this encounter Care Teams Steam Pressure Chamber Operator Relationship Specialty Start Date End Date Hai Lopez DO [address] [place] [address] PCP - General Family Medicine 10/10/17 documented as of this encounter
--- OUTSIDE RECORDS SUMMARY | 2024-05-26 12:42 | XMS_ITS | Encounter Summary ---
Author Organization [facility] [place] [address] Care Team Providers Care Rivet Sticker Name Role Phone Hai Lopez DO Primary Care Provider [phone] Encounter Details Date Type Department Care Team (Latest Contact Info) Description 02/14/2023 Travel Social History Tobacco Use Types Packs/Day [...] on filedocumented in this encounter Care Teams Rivet Sticker Relationship Specialty Start Date End Date Hai Lopez DO [address] [place] [id number] PCP - General Family Medicine 10/10/17 documented as of this encounter
--- OUTSIDE RECORDS SUMMARY | 2024-05-26 12:42 | XMS_ITS | Encounter Summary ---
Author Organization [facility] Address [facility] [place] [address] Care Team Providers Care Electric Motors Salesperson Name Role Phone Hai Lopez Primary Care Provider [phone] Encounter Details Date Type Department Care Team (Late st Contact Info) Description 09/14/2022 Telephone Neurosurgery at [facility] [place] [phone] Maura Jacobson PA [facility] [place] [address] [place] [address] Social History Tobacco Use Types Packs/Day Years [...] * Telephone Encounter - Laurence Jackson - 09/14/2022 9:09 AM EST Images from the original note were not included. Destiny, Would you please put in CTA and STAT CRE order Thanks, Laurence Lorenzo, Would you please put in CTA order and STAT Creatinine order for 3 month follow up? Thank you, Laurence 1) PSC Scheduling Instructions Provider: Vera Townsend MD Visit Type: OV Appt Note: 3 mo ov, s/p LEFT ICA stent embolization 09/11/22 CTA and Lab prior Imaging appt needed?: CT Scan & Lab PSC to ask patient Screening Questions? Yes PSC to coordinate same day appt with Radiology? Yes Additional Info Needed: Schedule ~10/12/22 ~~~~~~~~~~~~~~~~~~~~~~~~~~~~~~~ Maura Jacobson, GOMEZ P [facility] Neurosurgery Student Life Vice President Good evening, Patient will need 2wk teleheath appt w/nacho Prescott at that time (she will also need 3 mo in person visit with CTA) Maura documented in this encounter Plan of Treatment Not on file documented as of this encounter Visit Diagnoses Diagnosis Aneurysm of left internal carotid artery documented in this encounter Care Teams Electric Motors Salesperson Relationship Specialty Start Date End Date Hai Lopez DO [address] [place] [address] PCP - General Family Medicine 10/10/17 documented as of this encounter
--- OUTSIDE RECORDS SUMMARY | 2024-05-26 12:42 | XMS_ITS | Encounter Summary ---
Author Organization [facility] Address [facility] [place] [address] Care Team Providers Care Gypsum Block Setter Name Role Phone Hai Lopez Corey MOORE Primary Care Provider [phone] Encounter Details Date Type Department Care Team (Late st Contact Info) Description 09/29/2022 [place] [phone] Vera Townsend MD [facility] [place] [address] Social History Tobacco Use Types Packs/Day Years [...] encounter Miscellaneous Notes * Telephone Encounter - Octavia Mitchell R - 10/03/2022 8:52 AM EDT Sent Wiziva message to pt to confirm appt details 3 mo f/u on 6/28/23 Labs at 1230 pm CTA at [address] Townsend at 340 pm Closing encounter * Telephone Encounter - Octavia Mitchell - 09/29/2022 1:19 PM EDT Spoke to pt and completed CTA screening questions Please coordinate CTA on 01/03 with latest possible check in. AMM available from 340. Sent rad request. PSC Scheduling Instructions Provider: Vera Townsend MD Visit Type: OV Appt Note: 3 mo OV, Aneurysm of left internal carotid artery, CTA prior Imaging appt needed?: CT Scan PSC to ask patient Screening Questions? Yes PSC to coordinate same day appt with Radiology? Yes Additional Info Needed: Please schedule on/ around 12/28/22 ----- Message from Vera Townsend MD sent at 09/27/2022 3:05 PM EDT ----- CTA 12/2022 with clinic visit to follow documented in this encounter Plan of Treatment Not on file documented as of this encounter Visit Diagnoses Not on filedocumented in this encounter Care Teams Gypsum Block Setter Relationship Specialty Start Date End Date Hai Lopez DO [address] [place] [address] PCP - General Family Medicine 10/10/17 documented as of this encounter
--- OUTSIDE RECORDS SUMMARY | 2024-05-26 12:42 | XMS_ITS | Encounter Summary ---
[place] [address] Care Team Providers Care Lead Cytogenetic Technologist Name Role Phone Chengrosemary Hai Nicole DO Primary Care Provider Encounter Details Date Type Department Care Team (Latest Contact Info) Description 01/03/2023 12:30 PM EDT Laboratory Appointment Lab [address] [place] [phone] Aneurysm of left internal carotid artery; BUI (nonalcoholic steatohepatitis); History of hepatitis C Social History Tobacco Use Types Packs/Day Years [...] Procedure Name Priority Date/Time Associated Diagnosis Comments HEMOGRAM Routine 01/03/2023 12:58 PM EDT BUI (nonalcoholic steatohepatitis) History of hepatitis C DIFFERENTIAL, AUTOMATED Routine 01/03/2023 12:58 PM EDT BUI (nonalcoholic steatohepatitis) History of hepatitis C PROTHROMBIN TIME Routine 01/03/2023 12:5 8 PM EDT BUI (nonalcoholic steatohepatitis) History of hepatitis C CBC (WITH DIFF) Routine 01/03/2023 12:58 PM EDT BUI (nonalcoholic steatohepatitis) History of hepatitis C COMPREHENSIVE METABOLIC PANEL Routine 01/03/2023 12:58 PM EDT BUI (nonalcoholic steatohepatitis) History of hepatitis C documented in this encounter Results * (ABNORMAL) Differential, Automated (01/03/2023 12:58 PM EDT) Neutrophil % 58.5 % [facility] Neutrophil Absolute 5.24 1.70 - 6.10 x10(3)/mc L [facility] Lymph % 30.3 % [facility] Lymphocytes Abs 2.7 0.9 - 3.2 x10(3)/mc L [facility] Monocyte % 6.0 % [facility] Monocyte Abs 0.5 0.3 - 0.9 x10(3)/mc L [facility] Eos % 3.6 % [facility] Eosinophils Abs 0.3 0.0 - 0.4 x10(3)/mc L [facility] Basophil % 1.0 % [facility] Baso Absolute 0.1 0.0 - 0.1 x10(3)/mc L [facility] Immature Gran % 0.60 % [facility] Comment: Immature granulocytes(IG's)percentage and absolute count will include metamyelocytes, myelocytes, and promyelocytes. Blood smears from CBCs yielding IG's will be scanned manually for concordance. If this scan disagrees with the automated IG or if promyelocytes are noted, a manual differential will be performed. Immature Gran Absolute 0.05(H) 0.00 - 0.04 x10(3)/mc L [facility] Blood 01/03/2023 12:5 8 PM EDT 01/03/2023 1:10 PM EDT Narrative Resulting Agency Comment Spec In Lab Yuliana Hernandez MD HEMATOLOGY ORDERABLE S [facility] [place] [address] * (ABNORMAL) Hemogram (01/03/2023 12:58 PM EDT) White Blood Cell 9.0 4.0 - 9.5 x10(3)/mc L [facility] Red Blood Cell 5.42(H) 4.00 - 5.21 x10(6)/mc L [facility] Hemoglobin 15.8(H) 11.7 - 15.5 g/dL [facility] Hematocrit 48.3(H) 35.7 - 45.8 % [facility] Mean Cell Volume 89.1 82.6 - 94.4 fL [facility] Mean Cell Hemoglobin 29.2 27.1 - 32.0 pg [facility] Mean Cell Hemoglobin Concentration 32.7 31.7 - 35.0 g/dL [facility] Platelet 168 145 - 357 x10(3)/mc L [facility] RDW Standard Deviation 47.2(H) 37.0 - 46.0 fL [facility] RDW coefficient of variation 14.6(H) 11.5 - 14.1 % [facility] Mean Platelet Volume 10.6 7.6 - 12.9 fL [facility] NRBC% auto 0.0 % [facility] NRBC Absolute 0.000 0.000 - 0.000 x10(3)/ L [facility] Blood 01/03/2023 12:5 8 PM EDT 01/03/2023 1:10 PM EDT Narrative Resulting Agency Comment Spec In Lab Yuliana Hernandez MD HEMATOLOGY ORDERABLE S [facility] [place] [address] * (ABNORMAL) Comprehensive metabolic panel (non-fasting) (01/03/2023 12:58 PM EDT) Glucose 149 65 - 199 mg/dL [facility] Comment:Diabetes: >=200 mg/d L plus symptoms Blood Urea Nitrogen 15 8 - 18 mg/dL [facility] Creatinine 0.66(L) 0.70 - 1.20 mg/dL [facility] Sodium 139 135 - 145 mmol/L [facility] Potassium 4.3 3.5 - 5.0 mmol/L [facility] Comment: Please note: ??Patients with WBC >100,000 may have falsely elevated Potassium levels. ??For accurate Potassium quantification in these patients send serum separator tube (gold top) for subsequent determinations. ??Contact the Clinical Chemistry Laboratory if there are any questions. Chloride 101 98 - 107 mmol/L [facility] Carbon Dioxide 25 22 - 31 mmol/L [facility] Anion Gap 13 5 - 15 mmol/L [facility] Calcium 9.4 8.5 - 10.5 mg/dL [facility] Protein, Total 7.1 6.1 - 8.0 g/dL [facility] Albumin 4.5 3.2 - 5.2 g/dL [facility] Aspartate Aminotransferase 19 0 - 30 unit/L [facility] Alanine Aminotransferase 13 0 - 30 unit/L [facility] Alkaline Phosphatase 109(H) 35 - 105 unit/L [facility] Bilirubin, Total 0.3 0.2 - 1.3 mg/dL [facility] Est Glomerular Filtration Rate 99 >=60 mL/min/1. 73 m?? [facility] Comment: This patient's estimated GFR was [...] In Lab Yuliana Hernandez MD CHEMISTRY ORDERABLES [facility] [place] [address] * Prothrombin Time (01/03/2023 12:58 PM EDT) Prothrombin Time 10.9 9.4 - 12.5 sec [facility] International Normalization Ratio 1.0 [facility] Comment: An INR <2.0 indicates adequate procoagulant activity for hemostasis in most patients without underlying bleeding disorders, though the INR may not adequately reflect hemostatic capacity in patients with liver disease and synthetic impairment. The recommended target INR range for therapeutic anticoagulation is 2.0 ? 3.0 for most applications, though lower and higher ranges may be appropriate depending on clinical circumstances. Blood 01/03/2023 12:5 8 PM EDT 01/03/2023 1:10 PM EDT Narrative Resulting Agency Comment Spec In Lab Yuliana Hernandez MD HEMATOLOGY ORDERABLE S [facility] [place] [address] documented in this encounter Visit Diagnoses Diagnosis Aneurysm of left internal carotid artery BUI (nonalcoholic steatohepatitis) Other chronic nonalcoholic liver disease History of hepatitis C Personal history of other infectious and parasitic disease documented in this encounter Care Teams Lead Cytogenetic Technologist Relationship Specialty Start Date End Date Hai Lopez DO [address] [place] [address] PCP - General Family Medicine 10/10/17 documented as of this encounter
--- OUTSIDE RECORDS SUMMARY | 2024-05-26 12:42 | XMS_ITS | Encounter Summary ---
Author Organization [place] [id number] Care Team Providers Care Lens Finisher Name Role Phone Hai Lopez Coery MOORE Primary Care Provider [phone] Reason for Visit * Auth/Cert (Routine) Specialty Diagnoses / Procedures Referred By Contac t Referred To Contact Diagnoses ANEURYSM OF LEFT INTERNAL CAROTID ARTERY Procedures PRO PERM OCCLUSION/EMBOLIZATION, PERCUT, CYCLE CONSULTANT @TRANSCATHETER OCCLUSION/EMBOLIZATION FOR TUMOR DESTRUCTION Vera Townsend MD [facility] [place] [address] [facility] Referral ID Status Reason Start Date Expiration Date Visits Re quested Visits Authorized [id number] 1 1 Encounter Details Date Type Department Care Team (Late st Contact Info) Description 09/11/2022 12:28 [place] [address] Richmond Deng DO [facility] [place] [address] Rudolph Thomas MD [facility] [place] [address] Anesthesia Record Procedure Summary Procedure Name Responsible Anesthesiologist Anesthesia Start Time Anesthesia Stop Time @TRANSCATHETER OCCLUSION/EMBOLIZATIO N FOR TUMOR DESTRUCTION (WRVU 20.12) Richmond Deng DO 09/11/22 1228 09/11/222019 Events Date Time Event Comment 09/11/2022 1215 1228 AN Verify 1228 Start 1228 An Start Data 1244 An Induction 1249 An Intubation 1251 Anesthesia Ready 1251 Quick Note Goal MAP 60-80 per surgeon 1320 Quick Note Delay for Strok e Alert 1456 Quick Note Intra-arterial NTG injected by surgeon 1617 Quick Note Goal MAP 70-90 1716 Quick Note Scleral edema n oted (above baseline facial edema), no ETT cuff leak @ 20mmHg. ICU room unavailable at this time, to wait on vent in PACU under anesthesia's care. 1747 an stop data 1748 Quick Note No ICU bed, boa rding in PACU 1800 Quick Note Patient transpo rted to PACU to board until ICU bed available, unable to get vitals to transfer from PACU monitor. 1804 ABG Data Arterial Blood Gas result: pH 7.229 pCO2 59 pO2 87 %O2 Sat 90 FiO2 40 HCO3 24 BE -3.5 Hb 15.5 K 3.93 Glucose 193 Lactate 1.73 1825 Extubation/LMA Out 190 an ludivina now 1930 Quick Note Patient A&O x3, speaking clearly, Pupils equal and reactive, moving all extremities, 2015 Recovery or ICU Handoff Senia ent care was transferred to the destination unit staff after review of the patient's medical history, current anesthetic/surgical status and plan, according to the Provider Handoff Checklist. 2019 Stop Meds Name Total fentaNYL 100 mcg IV Lidocaine 100 mg Propofol 200 mg Rocuronium 120 mg PHENYLephrine 720 mcg Ondansetron 8 mg Dexamethasone 4 mg Dexmedetomidine 20 mcg ePHEDrine 5 mg Propofol INF 1,093.76 mg Heparin 5,000 Units acetaminophen IV 1,000 mg Sugammadex 400 mg Albuterol Inhaler 6 puff Labetalol 10 mg Lactated Ringers 1,500 mL * Agents Name O2 Air N2O Sevoflurane (et) O2 Auxiliary Flowmeter 2 * Blood No blood administrations on file. Lines, Drains, and Airways Type Details Placement Removal Incision 08/04/22; 1136; Righ t, anterior; wrist; non-laparascopic puncture; vascular access site; LDA not present upon assessment; 06/01/23; 0707 08/04/22 1136 by Zeus Salmon RN 06/01/23 0707 by Beverly Geller RN (RETIRED) Peripheral IV Line - Single Lumen 09/11/22; 1226; basilic vein (medial side of arm), left; tvdp-cbu-fddief catheter system; Anatomical Landmarks; 18 gauge; anes; distraction, tolerated well, appears comfortable; no longer indicated; 09/13/22; 1524 09/11/22 1226 by Katy Rodrigues RN 09/13/22 1524 by Alyssa Bob RN ETT Mask Ventilation: Adjunct (2); ETT Type: Oral, Cuffed; ETT Size: 7 mm; Indirect: Video; Notes: Asleep, Pre-O2, Stylette; Attempts: 1; Laryngoscopy Grade: 1; ETT Placement Verified By: Auscultation, Capnometry, Visual; Secured at Teeth: 21 cm; Inserted by: shelton; Removal Date: 09/11/22; Removal Time: 182509/11/22 1249 by Asad [place], PHARMACOLOGY PROFESSOR 09/11/22 1826 by Octavia Lynch RT Urethral Catheter 09/11/22; 1302; (anesthesia); indwelling single lumen catheter; 100% silicone; 14; 10; drainage bag to dependent drainage; 09/12/22; 0859 09/11/22 1302 by Shad Grace RN 09/12/22 0859 by Elizabeth Herman RN Arterial Line 09/11/22; 1305; radi al artery, left; 20 gauge; Anatomical Landmarks, Guidewire, Ultrasound Guidance, Introducer Needle; continuous blood pressure monitoring, other (see comments) (ACTs); cb; Sterile Prep, Sterile Gloves; other (see comments) (per order); 09/12/22; 0848 09/11/22 1305 by Asad [place], PHARMACOLOGY PROFESSOR 09/12/22 0848 by Elizabeth Herman RN Incision 09/11/22; 2014; Righ t, anterior; groin; laparoscopic punctures (specify); stent; LDA not present upon assessment; 06/01/23; 0707 09/11/222014 by Radha Haley RN 06/01/23706 by Beverly Geller RN (RETIRED) Peripheral IV Line - Single Lumen 09/11/22; 2026; median cubital vein (antecubital fossa), right; US Not Used; 20 gauge; RB; distraction; 0; no longer indicated; 09/13/22; 1524 09/11/222026 by Aimee Roberts RN 09/13/221523 by Alyssa Bob RN documented in this encounter Social History Tobacco [...] - - Temperature - - Respiratory Rate 14 09/11/2022 8:04 PM EST Oxygen Saturation - - Inhaled Oxygen Concentration - - Weight - - Height - - Body Mass Index - - documented in this encounter OR Notes * Anesthesia Postprocedure Evaluation - Richmond Deng DO - 2022 8:41 AM EST Department of Anesthesiology Post-procedure Note Patient: Mary Beth Holman Procedure Summary Date: 09/11/22 Room / Location: [facility] / [facility] Anesthesia Start: 1228 Anesthesia Stop: 2019 Procedure: @TRANSCATHETER OCCLUSION/EMBOLIZATION FOR TUMOR DESTRUCTION (WRVU 20.12) Diagnosis: (ANEURYSM OF LEFT INTERNAL CAROTID ARTERY) Surgeons: Vera Townsend MD Responsible Provider: Richmond Deng DO Anesthesia Type: general ASA Status: 2 All Anesthesia Providers: Anesthesiologist: Richmond Deng DO PHARMACOLOGY PROFESSOR: Asad [place] CRNA Vitals Value Taken Time BP 100/59 09/12/22 0800 Temp 36.5 ??C (97.7 ??F) 09/12/22 0724 Pulse 77 09/12/22 0838 Resp 16 09/12/22 0838 SpO2 96 % 09/12/22 0839 Pain Level 0 09/12/22 0724 Vitals shown include unvalidated device data. Patient Location: ICU Level of Consciousness: Awake and Alert Pain Management: Satisfactory Analgesia PONV: None Cardiovascular Status: At Baseline and Hemodynamically Stable Respiratory Status: At Baseline and Room Air Postoperative Fluid Status: Intravascular EUvolemia Possible Anesthetic Complications: NONE apparent at time of evaluation Final Primary Anesthesia Type: General (The anesthetic type performed was the same as planned.) Comments: Richmond Deng DO * Anesthesia Preprocedure Evaluation - Richmond Deng DO - 09/11/2022 12:00 PM EST Pre-Anesthesia Evaluation for: Mary Beth Dann Holman a 62 y.o. female. Procedure(s): @TRANSCATHETER OCCLUSION/EMBOLIZATION FOR TUMOR DESTRUCTION (WRVU 20.12) Patient Active Problem List Diagnosis Date Noted ??? Aneurysm of left internal carotid artery 06/15/2022 ??? Obesity 09/27/2018 ??? 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 Left sided sciatica 09/27/2018 ??? History of alcohol abuse 09/27/2018 ??? Chronic low back pain 07/14/2015 ??? Hypertension 04/06/2015 ??? Chronic obstructive pulmonary disease 06/05/2014 ??? Diabetes mellitus 04/16/2014 ??? Cigarette smoker 02/27/2014 ??? Gastro-esophageal reflux 08/25/2011 ??? HLD (hyperlipidemia) 08/25/2011 Past Medical History: Diagnosis Date ??? Acid reflux ??? Allergy ??? Anxiety ??? Arthritis ??? Asthma ??? Diabetes ??? Dry mouth ??? Emphysema/COPD ??? High cholesterol ??? Hypertension ??? 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 SECTION 3 ??? ELBOW SURGERY Left 2 left elbow ??? IR ARTERIOGRAM CEREBRAL 08/04/2022 IR Arteriogram Cerebral 08/04/2022 Bernardo Carmen MD [facility] ??? PRO COLONOSCOPY, REMV LESN, SNARE N/A 10/10/2017 COLONOSCOPY, POLYPECTOMY, REMOVAL LESION BY SNARE (WRVU 4.67) performed by Richmond Orellana MD at [facility] ENDOSCOPY ??? PRO EXCISION SUBMAXILLARY GLAND Left 02/23/2017 EXCISION SUBMANDIBULAR (SUBMAXILLARY) GLAND-GARY (WRVU 6.14) performed by Salty Butler MD [facility] MAIN OR ??? PRO UPPER GI ENDOSCOPY, BIOPSY N/A 10/10/2017 EGD WITH BIOPSY (WRVU 2.49) performed by [place] Orellana MD at [facility] ENDOSCOPY ??? WRIST SURGERY Left 2 left wrist Social History Tobacco Use ??? Smoking status: Every Day Packs/day: 0.25 Years: 40.00 Pack years: 10.00 Types: Cigarettes ??? Smokeless tobacco: Never ??? Tobacco comments: down to 5 cigs. Substance Use Topics ??? Alcohol use: No Social History Substance and Sexual Activity Drug Use Yes ??? Types: Marijuana Comment: gummies Allergies Allergen Reactions ??? Aspirin Other reaction(s): GI Upset ??? Celecoxib Other reaction(s): GI Upset ??? Fluoxetine ??? Fluoxetine Hcl CIS - BAD RASH ??? Metformin Diarrhea and Nausea And Vomiting ??? Rofecoxib Other reaction(s): bleeding Medications: MAR and/or home medications have been reviewed. Physical Exam: Preprocedure Vitals Current as of 09/11/22 1228 BP: 130/92 Pulse: 94 Resp: 16 SpO2: 99 Temp: 36.3 ??C (97.3 ??F) Height: Weight: 92.3 kg (203 lb 8 oz) (09/11/22) BMI: IBW: Last edited 09/11/22 1210 by OR Airway Assessment: Mallampati: II Cardiovascular Assessment: system normal Pulmonary Assessment: pulmonary exam normal Dental Assessment: Misc Assessment: Last Filed Perioperative Cognitive Screening None Anesthesia Plan: ASA 2 general, Incidental finding of ICA aneurysm s/f stent embolization. No prior anesthetic complications NPO Plan for GA w/ ETT, PIV and arterial line Informed Consent: Anesthesia Screening documented in this encounter Plan of Treatment Not on file documented as of this encounter Visit Diagnoses Not on filedocumented in this encounter Administered Medications Inactive Administered Medications - up to 3 most recent administrations Medication Order MAR Action Action Date Dose Rate Site acetaminophen (Ofirmev) (1,000 mg/100 mL) infusion Intravenous, Administer over 15 Minutes, PRN, Starting on Sun09/11/22 at 1611, Until Sun09/12/22 at 0840, Anesthesia Intra-op, Routine Given 09/11/2022 4:11 PM EST 1,000 mg albuteroL 90 mcg/actuation inhaler Inhalation, PRN, Starting on Sun09/11/22 at 1617, Until Sun09/12/22 at 0840, Anesthesia Intra-op, Routine Given 09/11/2022 4:17 PM EST 6 puffs dexAMETHasone (Decadron) injection Intravenous, PRN, Starting on Sun09/11/22 at 1251, Until Sun09/12/22 at 0840, Anesthesia Intra-op, Routine Given 09/11/2022 12:51 PM EST 4 mg dexmedeTOMIDine (Precedex) (4 mcg/mL) bolus injection (Anesthsia) Intravenous, PRN, Starting on Sun09/11/22 at 1244, Until Sun09/12/22 at 0840, Anesthesia Intra-op, Routine Given 09/11/2022 12:44 PM EST 20 mcg ePHEDrine sulfate (5 mg/mL) multi-dose injection Intravenous, PRN, Starting on Sun09/11/22 at 1258, Until Sun09/12/22 at 0840, Anesthesia Intra-op, Routine Given 09/11/2022 12:58 PM EST 5 mg fentaNYL (pf) (50 mcg/mL) multi-dose injection Intravenous, PRN, Starting on Sun09/11/22 at 1417, Until Sun09/12/22 at 0840, Anesthesia Intra-op, Routine Given 09/11/2022 4:11 PM EST 25 mcg Given 09/11/2022 3:21 PM EST 25 mcg Given 09/11/2022 2:17 PM EST 50 mcg heparin (porcine) (1,000 units/mL) injection Intravenous, PRN, Starting on Sun09/11/22 at 1507, Until Sun09/12/22 at 0840, Anesthesia Intra-op, Routine Given 09/11/2022 3:07 PM EST 5,000 Uni ts labetaloL (Normodyne) (5 mg/mL) multi-dose injection Intravenous, PRN, Starting on Sun09/11/22 at 1632, Until Sun09/12/22 at 0840, Anesthesia Intra-op, Routine Given 09/11/2022 4:32 PM EST 10 mg lactated ringers infusion Intravenous, CONTINUOUS PRN, Starting on Sun09/11/22 at 1228, Until Sun09/12/22 at 0840, Anesthesia Intra-op New Bag 09/11/2022 2:57 PM EST New Bag 09/11/2022 12:28 PM EST lidocaine (pf) (Xylocaine) (20 mg/mL) 2% injection syringe Intravenous, PRN, Starting on Sun09/11/22 at 1244, Until Sun09/12/22 at 0840, Anesthesia Intra-op, Routine Given 09/11/2022 12:44 PM EST 100 mg ondansetron (pf) (Zofran) (2 mg/mL) injection Intravenous, PRN, Starting on Sun09/11/22 at 1251, Until Sun09/12/22 at 0840, Anesthesia Intra-op, Routine Given 09/11/2022 4:11 PM EST 4 mg Given 09/11/2022 12:51 PM EST 4 mg PHENYLephrine in NS (PF) (SARINA-SYNEPHRINE) 0.8 mg/10 mL (80 mcg/mL) multi-dose injection Syrg Intravenous, PRN, Starting on Sun09/11/22 at 1322, Until Sun09/12/22 at 0840, Anesthesia Intra-op, Routine Given 09/11/2022 5:55 PM EST 160 mcg Given 09/11/2022 5:54 PM EST 160 mcg Given 09/11/2022 5:53 PM EST 160 mcg propofoL (Diprivan) (10 mg/mL) infusion Intravenous, CONTINUOUS PRN, Starting on Sun09/11/22 at 1341, Until Sun09/12/22 at 0840, Anesthesia Intra-op, Routine Restarted 09/11/2022 5:38 PM EST 50 mcg/kg/min 27.69 mL/hr Restarted 09/11/2022 5:15 PM EST 50 mcg/kg/min 27.69 mL/h r Rate/Dose Change 09/11/2022 1:54 PM EST 100 mcg/kg/min 55. 38 mL/hr propofoL (Diprivan) 10 mg/mL bolus injection (Anesthesia) Intravenous, PRN, Starting on Sun09/11/22 at 1244, Until Sun09/12/22 at 0840, Anesthesia Intra-op Given 09/11/2022 12:44 PM EST 200 mg rocuronium (Zemuron) (10 mg/mL) multi-dose injection Intravenous, PRN, Starting on Sun09/11/22 at 1244, Until Sun09/12/22 at 0840, Anesthesia Intra-op, Routine Given 09/11/2022 3:36 PM EST 20 mg Given 09/11/2022 2:05 PM EST 50 mg Given 09/11/2022 12:44 PM EST 50 mg sugammadex (Bridion) 100 mg/mL injection Intravenous, PRN, Starting on Sun09/11/22 at 1556, Until Sun09/12/22 at 0840, Anesthesia Intra-op, Routine Given 09/11/2022 3:56 PM EST 400 mg documented in this encounter Care Teams Lens Finisher Relationship Specialty Start Date End Date Hai Lopez DO [address] [place] [address] PCP - General Family Medicine 10/10/17 documented as of this encounter
--- OUTSIDE RECORDS SUMMARY | 2024-05-26 12:42 | XMS_ITS | Encounter Summary ---
[place] [address] Care Team Providers Care Notching Machine Operator Name Role Phone Hai Lopez DO Primary Care Provider [phone] Reason for Referral * Diagnostic Test (Routine) - Closed Specialty Diagnoses / Procedures Referred By Contjeana t Referred To Contact Radiology Diagnoses Aneurysm of left internal carotid artery Procedures IR Arteriogram Cerebral Destiny Alfredo APRN [facility] [place] [address] [place] [address] Referral ID Status Reason Start Date Expiration Date V isits Requested Visits Authorized [id number] Closed Specialty Service Requested 01/03/2023 07/05/2024 1 1 Encounter Details Date Type Department Care Team (Late st Contact Info) Description 01/03/2023 3:40 PM EDT [place] [address] Destiny Alfredo CLINICAL DATA ABSTRACTOR [facility] [place] [address] Aneurysm of left internal carotid [...] Sign Reading Time Taken Comments Blood Pressure 123/67 01/03/2023 3:14 PM EDT Pulse 77 01/03/2023 3:14 PM EDT Temperature 36.1 ??C (97 ??F) 01/03/2023 3:14 PM EDT Respiratory Rate 17 01/03/2023 3:14 PM EDT Oxygen Saturation 97% 01/03/2023 3:14 PM EDT Inhaled Oxygen Concentration - - Weight 94.9 kg (209 lb 3.2 oz) 01/03/2023 3:14 P M EDT Height 165.1 cm (5' 5) 01/03/2023 3:14 PM EDT Body Mass Index 34.81 01/03/2023 3:14 PM EDT documented in this encounter Progress Notes * Destiny Alfredo, CLINICAL DATA ABSTRACTOR - 01/03/2023 3:40 PM EDT CHIEF COMPLAINT (in bold): Patient Active Problem List Diagnosis Aneurysm of left internal carotid artery Overview Note: 6mm LICA aneurysm found on dizziness workup. Brother with small aneurysm being followed with observation. 09/11/22 Pipeline stent placement, Dr. Townsend Placed on ASA and Plavix following stent placement Obesity BUI with fibrosis Left sided sciatica History of alcohol abuse Overview Note: Abstinent x 20 years Chronic low back pain Hypertension Chronic obstructive pulmonary disease Diabetes mellitus Cigarette smoker Gastro-esophageal reflux HLD (hyperlipidemia) HISTORY: Mary Beth Holman Returns in followup with CTA. Had some headaches (migraines) that she hadn't had since age 15, started 2 weeks after procedure. Restarted verapamil, which has been helpful. Now feeling much better. Tolerating DAPT. PHYSICAL EXAM: No acute distress Awake, Alert, Interactive Pupils equal and reactive Moving all extremities with full strength Gait independent and stable IMAGING & OTHER RESULTS: CTA today personally reviewed. Stent in place in LICA with exclusion of prior aneurysm. ASSESSMENT/PLAN: Aneurysm of left internal carotid artery Doing well with expected clinical and radiographic findings following stent assisted treatment of unruptured aneurysms. Migraine headaches may be triggered by inflammatory response to treatment/stent placement/new medications, and will likely improve with time. No findings concerning for other neurologic problem. Continue DAPT. Repeat angiogram in 3 months, will likely stop Plavix at that time. documented in this encounter Miscellaneous Notes * Assessment & Plan Note - Destiny Alfredo APRN - 01/03/2023 4:21 PM EDT Associated Problem(s): Aneurysm of left internal carotid artery Doing well with expected clinical and radiographic findings following stent assisted treatment of unruptured aneurysms. Migraine headaches may be triggered by inflammatory response to treatment/stent placement/new medications, and will likely improve with time. No findings concerning for other neurologic problem. Continue DAPT. Repeat angiogram in 3 months, will likely stop Plavix at that time. documented in this encounter Plan of Treatment Not on file documented as of this encounter Results * IR Arteriogram Cerebral (06/01/2023 9:08 AM [...] who have questions please contact the health vision care associate that requested your imaging first. ? Electronically signed by: Vera Townsend MD, [facility] ([phone]), at 06/26/2023 9:47 AM Narrative 06/26/2023 9:47 [...] being administered. The above times reflect physician/patient uwcg-by-vbcy time. MEDICATIONS: 1% Lidocaine 5 ml SC [...] EQUIPMENT: ?? 1. ??Micropuncture access kit. 2. ??5-Nigerian, 10 cm radial Glidesheath 3. ??5-Nigerian Ibarra II Glidecatheter 4. ??0.035 x 150 [...] without difficulty under ultrasound guidance and the 5-Nigerian, 10 cm radial Glidesheath was placed and [...] wasbeing administered. The above times reflect physician/patient [id number]. MEDICATIONS: 1% Lidocaine 5 ml SC Fentanyl [...] None. EQUIPMENT: 1. Micropuncture access kit. 2. 5-Nigerian, 10 cm radial Glidesheath 3. 5-Nigerian Ibarra II Glidecatheter 4. 0.035 x 150 [...] without difficulty under ultrasound guidance and the 5-Nigerian, 10 cmradial Glidesheath was placed and flushed. [...] patients who have questions please contactthe health vision care associate that requested your imaging first. Destiny Alfredo APRN IMG IR ORDERABLES documented in this encounter Visit Diagnoses Diagnosis Aneurysm of left internal carotid artery Aneurysm of left internal carotid artery documented in this encounter Care Teams Notching Machine Operator Relationship Specialty Start Date End Date Hai Lopez DO [address] [facility] [place] [address] PCP - General Family Medicine 10/10/17 documented as of this encounter
--- OUTSIDE RECORDS SUMMARY | 2024-05-26 12:42 | XMS_ITS | Encounter Summary ---
[place] [address] Care Team Providers Care Insole Toe Snipping Machine Operator Name Role Phone Hai Lopez Corey MOORE Primary Care Provider [phone] Reason for Visit * Auth/Cert (Routine) Specialty Diagnoses / Procedures Referred By Contac t Referred To Contact Diagnoses ANEURYSM OF LEFT INTERNAL CAROTID ARTERY Procedures PRO PERM OCCLUSION/EMBOLIZATION, AKBAR, DERRICK BOAT OPERATOR [email or web address] OCCLUSION/EMBOLIZATION FOR TUMOR DESTRUCTION Vera Townsend MD [facility] [place] [address] [facility] Referral ID Status Reason Start Date Expiration Date Visits Re quested Visits Authorized [id number] 1 1 Encounter Details Date Type Department Care Team (Latest Contact Info) Description 09/11/2022 11:37 AM EST - 09/13/2022 4:00 PM EST Hospital Encounter Surgical [place] [id number] Vera Townsend MD [facility] [place] [address] Discharge Disposition: Home Social History Tobacco Use Types Packs/Day Years Used Date Smoking Tobacco: Every Day Cigarettes 0.3 40 Smokeless Tobacco: Never Tobacco Cessation:Ready to Q uit: Not Asked; Counseling Given: Not Answered Comments:down to 5 cigs. Alcohol Use Standard Drinks/Week Comments No 0 (1 standard drink = 0.6 oz pur e alcohol) [facility] Inpatient Questions Answer Date Recorded Does Anyone Try to Keep You From Having Contact with Others or Doing Things Outside Your Home? no 09/11/2022 Feels Threatened by Someone no 0 12/2022 Feels Unsafe at Home or Work/School no 09/11/2022 Physical Signs of Abuse Present Not on file 09/11/2022 Sex and Gender Information Value Date Recorded Sex Assigned at Not on file Gender Identity Not on file Sexual Orientation Not on file documented as of this encounter Last Filed Vital Signs Vital Sign Reading Time Taken Comments Blood Pressure 103/90 09/13/2022 2:00 PM EST Pulse 81 09/13/2022 2:00 PM EST Temperature 37.1 ??C (98.8 ??F) 09/13/2022 12:[address] Respiratory Rate 17 09/13/2022 2:00 PM EST Oxygen Saturation 93% 09/13/2022 2:00 PM EST Inhaled Oxygen Concentration - - Weight 96.2 kg (212 lb 1.3 oz) 09/11/2022 8:15 P M EST Height 165.1 cm (5' 5) 09/11/2022 5:00 PM EST Body Mass Index 35.29 09/11/2022 5:00 PM EST documented in this encounter Discharge Summaries * Maura Jacobson PA - 09/13/2022 2:54 PM EST Images from the original note were not included. Patient Name: Mary Beth Holman Patient Age: 62 y.o. Admit date: 09/11/2022 Discharge Date and Time: 09/13/22 5:15 PM Attending Physician: Dr. Vera Townsend Discharging Provider: GOMEZ Woods Discharging Service: NEUROSURGERY Operations/Major Procedures: 09/11/2022: Vera Townsend MD: LEFT ICA stent embolization Active Hospital Problems: There are no hospital problems to display for this patient. Active Non Hospital Problems: Active Non-Hospital Problems Diagnosis ??? Aneurysm of left internal carotid artery ??? Obesity ??? BUI with fibrosis ??? Left sided sciatica ??? History of alcohol abuse ??? Chronic low back pain ??? Hypertension ??? Chronic obstructive pulmonary disease ??? Diabetes mellitus ??? Cigarette smoker ??? Gastro-esophageal reflux ??? HLD (hyperlipidemia) History of Presentation: Per review of relevant records 61F right-handed on ASA/plavix (taking for 2 wks, last dose this morning) with PMH COPD, DM, HLD, HTN, BUI, and incidental L ICA aneurysm presenting for elective stent embolization. Hospital Course: Mary Beth Holman presented 09/11/2022 and underwent LEFT ICA stent embolization in IR with Dr. Townsend via RIGHT NATURAL GAS TRADER access. There were no complications with the procedure. Patient tolerated the procedure well. Following the procedure patient was closely monitored for neurological observation and pain management. Overnight following the procedure patient required supplemental oxygen via nasal cannula, that was slowly weaned off. On POD#1 Diabetes Management team was consulted for aid in managing blood glucose. Long acting insulin dosing was adjusted. P2Y12 levels were within therapeutic range. Patient was discharged in stable condition 09/13/22 At time of discharge patient is afebrile, tolerating a carbohydrate controlled diet, ambulating independently, voiding spontaneously, and managing pain with oral pain medications. She is being discharged on Aspirin and Plavix. Important Studies and Lab Data: Labs: Recent Results (from the past 24 hour(s)) POCT Glucose Result Value Ref Range POC Glucose 163 65 - 199 mg/dL POCT Glucose Result Value Ref Range POC Glucose 147 65 - 199 mg/dL POCT Glucose Result Value Ref Range POC Glucose 128 65 - 199 mg/dL Basic Metabolic Panel (non-fasting) Result Value Ref Range Glucose Lvl 134 65 - 199 mg/dL BUN 16 8 - 18 mg/dL Creatinine 0.68 (L) 0.70 - 1.20 mg/dL Sodium 143 135 - 145 mmol/L Potassium 4.0 3.5 - 5.0 mmol/L Chloride 105 98 - 107 mmol/L CO2 32 (H) 22 - 31 mmol/L Anion Gap 6 5 - 15 mmol/L Calcium 8.6 8.5 - 10.5 mg/dL Estimated GFR 98 >=60 mL/min/1.73 m?? Hemogram Result Value Ref Range WBC 9.5 4.0 - 9.5 x10(3)/mcL RBC 4.85 4.00 - 5.21 x10(6)/mcL Hemoglobin 14.2 11.7 - 15.5 g/dL Hematocrit 44.7 35.7 - 45.8 % MCV 92.2 82.6 - 94.4 fL MCH 29.3 27.1 - 32.0 pg MCHC 31.8 31.7 - 35.0 g/dL Platelets 126 (L) 145 - 357 x10(3)/mcL RDWSD 48.0 (H) 37.0 - 46.0 fL RDWCV 14.0 11.5 - 14.1 % MPV 11.0 7.6 - 12.9 fL nRBC % Auto 0.0 % nRBC Abs Auto 0.000 0.000 - 0.000 x10(3)/mcL Differential, Automated Result Value Ref Range Neutrophils % 66.9 % Neutr Abs (ANC) 6.33 (H) 1.70 - 6.10 x10(3)/mcL Lymphocytes % 25.3 % Lymphocytes Abs 2.4 0.9 - 3.2 x10(3)/mcL Monocytes % 5.3 % Monocyte Abs 0.5 0.3 - 0.9 x10(3)/mcL Eosinophils % 1.6 % Eosinophils Abs 0.2 0.0 - 0.4 x10(3)/mcL Basophils % 0.5 % Basophils Abs 0.0 0.0 - 0.1 x10(3)/mcL Immature Gran % 0.40 % Elaina Gran Abs 0.04 0.00 - 0.04 x10(3)/mcL POCT Glucose Result Value Ref Range POC Glucose 131 65 - 199 mg/dL P2Y12 Antiplatelet ([facility]) Result Value Ref Range P2Y12 144 PRU POCT Glucose Result Value Ref Range POC Glucose 127 65 - 199 mg/dL POCT Glucose Result Value Ref Range POC Glucose 174 65 - 199 mg/dL Studies: No results found for this visit on 09/11/22. Pending Studies and Lab Data: N/A Discharge Condition: Stable Discharge to: Home Future Appointments and Orders Future Appointments and Orders Future Appointments Provider Department Dept Phone 02/15/2023 9:00 AM Daxa Lala, OD; [facility]; SHANTELL SAVAGE Ophthalmology at [facility] Arrive at: Parking Lot Attendant And Cashier Area [phone] Discharge Medications: Your Medications New Medications Dose Details acetaminophen 500 mg Tab Commonly known as: Tylenol Take 2 tablets by mouth every 6 hours as needed for Pain (mild pain (1-3)). 1,000 mg Quantity: 30 tablet Refills: 1 aspirin 81 mg Chew Take 81 mg by mouth daily. Start taking on: September 14, 2022 81 mg Quantity: 30 tablet Refills: 3 Continued medications with new dosing Dose Details Insulin Tresiba FlexTouch U-200 200 unit/mL (3 mL) Inpn Inject 20 Units subcutaneously every evening. Generic drug: insulin degludec What changed: See the new instructions. 20 Units Refills: 0 Continued medications, unchanged Dose Details * ProAir RespiClick 90 mcg/actuation Aepb INHALE TWO PUFFS BY MOUTH EVERY 4 HOURS NEEDED FOR WHEEZING OR SHORTNESS OF BREATH Generic drug: albuterol sulfate Refills: 0 * albuteroL 90 mcg/actuation Hfaa Inhale 2 puffs into the lungs every 4 hours as needed for Wheezing. Use with spacer 2 puff Refills: 0 BD Ultra-Fine Mini Pen Needle 31 gauge x 3/16 Ndle USE DAILY WITH LANTUS Generic drug: insulin needles (disposable) Refills: 0 clopidogreL 75 mg Tab Commonly known as: Plavix Take 1 tablet by mouth daily. Start 14 days prior to aneurysm procedure. 75 mg Quantity: 90 tablet Refills: 3 insulin lispro 100 unit/mL Inpn Commonly known as: HumaLOG Inject 2-20 Units subcutaneously as needed. 2-20 Units Refills: 0 Jardiance 25 mg Tab Generic drug: empagliflozin Refills: 0 lisinopriL 20 mg Tab Commonly known as: Zestril Take 20 mg by mouth daily. 20 mg Refills: 0 meclizine 25 mg Tab Commonly known as: Antivert Take by mouth 2 times daily. Takes 50 mg in the morning and 50 mg at night Refills: 0 multivitamin Cap Take 1 capsule by mouth daily. 1 capsule Refills: 0 One Touch Delica 33 gauge Misc Generic drug: lancets Refills: 0 OneTouch Ultra Test Strp Generic drug: blood sugar diagnostic strips Refills: 0 pantoprazole EC 40 mg Tbec Commonly known as: Protonix Take 1 tablet by mouth daily. Start 14 days prior to aneurysm procedure. Stop taking omeprazole when you start this medication. 40 mg Quantity: 90 tablet Refills: 3 PARoxetine 20 mg Tab Commonly known as: Paxil TK 1 T PO D Refills: 0 pregabalin 150 mg Cap Commonly known as: LYRICA Take by mouth 2 times daily. Refills: 0 * This list has 2 medication(s) that are the same as other medications prescribed for you. Read thedirections carefully, and ask your doctor or other care provider to review them with you. STOPPED Medications Lantus Solostar U-100 Insulin 100 unit/mL (3 mL) pen Generic drug: insulin glargine omeprazole 40 mg Cpdr Commonly known as: PriLOSEC Updated Allergies/ADRs: Allergies Allergen Reactions ??? Aspirin Other reaction(s): GI Upset ??? Celecoxib Other reaction(s): GI Upset ??? Fluoxetine ??? Fluoxetine Hcl CIS - BAD RASH ??? Metformin Diarrhea and Nausea And Vomiting ??? Rofecoxib Other reaction(s): bleeding Follow-up Recommendations for Providers: Please see Discharge Instructions Outpatient referrals: N/A Instructions Given to Patient at Discharge: Patient Instructions [facility] ENDOVASCULAR TREATMENT OF UNRUPTURED INTRACRANIAL ANEURYSM DISCHARGE INSTRUCTIONS Procedure: Intracranial Stent-assisted Embolization of LEFT paraophthalmic ICA aneurysm Puncture Site: Right common femoral artery Date: 09/11/22 PRESCRIPTION INSTRUCTIONS: Please see the medication reconciliation list on this discharge summary for a current list of your medications. If not already on blood thinners, these will be started at the time of your coiling procedure [x] Plavix (clopidogrel): Please take this medication following treatment of your aneurysm. Your doctor will tell you how long you need to be on this medication at your follow up appointment. [x] Aspirin: Please take an aspirin 81mgdaily unless instructed otherwise; possibly lifelong. This is necessary due to the coils that are placed in your aneurysm. -Please contact us if you are having bruising, bleeding from gums or nose, or heartburn/stomach pain while taking the blood thinners. If you are a diabetic and take Metformin or Janumet, Do not take it for 2 days after the procedure. WHEN TO SEEK MEDICAL CARE: Signs or [...] while awake, for prolonged amounts of time. Avoid straining for bowel movements as you can pop open the clot that has formed on the artery. WOUND CARE: - The puncture site at the top of your thigh can be very tender for a week or two. Avoid soaking inthe tub or swimming for 7 days after procedure. - If you develop bulging under the skin or bleeding at the puncture site, put direct pressure on the puncture site for 15 minutes and call your doctor. If the bleeding persists, reapply pressure, andgo to your local Emergency Department. - If you notice a sudden change in the feeling (numbness, tingling and/or pain) of your leg on the side of the puncture call your doctor. - You may develop a bruise at the puncture site. This should go away within a week to 10 days. If abulge develops after the first three days, call your doctor or the Neurosurgery Department here. Report signs of infection (redness, swelling, discharge, soreness, or fever) to your doctor. - Leave the bandage on for 24-48 hours. You may shower the following day after the procedure. DIET: - You may resume your usual diet. - Drink 6-8 ounces of fluid per hour for the next 8 hours. Avoid alcoholic or caffeinated beveragesfor 24 hours. ACTIVITY: - You may increase your activities as tolerated. - Restrict strenuous activity (such as running, jumping, jogging, shoveling, heavy lifting, etc.) for at least 2 weeks. - Stair climbing should be kept to a minimum. Do not lift objects heavier than 10-15 pounds for thenext 48 hours - Do not drive while taking any narcotic pain medication, if prescribed. Brain Aneurysm Support Group First Sunday of each month 5:30 - 7:00pm Meetings will be held both in-person and [place] [address] To Join the Meeting from Home, visit the following link at the scheduled time of the meeting: [email or web address] You will be asked to download Webex to your device, and you can then join the meeting from [employer]. Contact Please contact Destiny Alfredo for details. [email or web address] [phone] FOLLOW UP PLAN: [x] Please follow up in the Neurosurgery Clinic in 4-6 weeks. Please call the Neurosurgery Office at [phone] if you do not receive a scheduled appointment within two weeks. You will follow-up with: [x] Dr. Townsend Imaging: [x] No imaging required at initial telehealth follow up [x] Will require CT Angiogram at 3 month follow up HOW TO REACH NEUROSURGERY Contact your Doctor Office Hours: Sunday through Sunday, 8am-5pm. Call . On weekends or after office hours: Call [phone] and ask the commercial front load operator to page the Neurosurgery Resident fiscal economist. IMPORTANT PHONE NUMBERS: Outpatient Nurse (Roxana Bright) Inpatient Nurses Neurosurgical Resident/Advanced Practice Provider On-Call (after 5pm or before 8am) Neurosurgery offices (Sunday through Sunday between 8am-5pm): Adult Neurosurgery Dr. Deric Ibarra Pediatric Neurosurgery Dr. Skylar Horowitz Advanced Practice Providers Alexia Robertson, Nurse Practitioner (outpatient) Slime Adair, Physician Sales Support Engineer (inpatient) Destiny Alfredo, Nurse Practitioner (inpatient) Jeanette Noel, Nurse Practitioner (inpatient) Maura Jacobson, Physician Sales Support Engineer (inpatient) Maura Morrow, Physician Sales Support Engineer (inpatient) Fanny Blackman Physician Sales Support Engineer (outpatient: spine) Ray Cleary, Nurse Practitioner (inpatient/outpatient) Max Dahl, Physician Sales Support Engineer (outpatient) * Your surgeon may not be call centre supervisor, so be ready to tell about yourself and your surgery when you call, especially after hours or on the weekend. Diabetes Discharge Instructions Please test blood sugars 4 times daily prior to breakfast, lunch, dinner, and bedtime. Please test blood sugars with any symptoms. Please work on eating a diet that is lower in fat and carbohydrates. Please work on staying active.The goal is thirty minutes daily, as tolerated. Instructions for Tresiba Insulin (LONG ACTING) FOR TONIGHT ONLY (09/13/22).... TAKE 10 UNITS. STARTING TOMORROW... Please inject Tresiba 20 units every evening If your fasting blood sugars are above 150mg/dl two days in a row, please increase your Tresiba by 2 units. If your fasting blood sugars are below 90mg/dl two days in a row, please decrease your Tresiba by 2units. This now becomes your new dose. Instructions for Mealtime Humalog Insulin This is the rapid-acting insulin, used at mealtime to prevent a high BG after you eat. Check your BG before each meal. 1. If your BG is 80 or higher, inject Humalog right before eating. 2. If your BG is lower than 80, or you have symptoms of a low BG, treat the low BG first, then eat your meal and take the Humalog after eating. 3. Inject Humalog for breakfast, for lunch and for dinner based on a 1 unit per every 15 gram carbohydrate insulin to carbohydrate ratio. For a low carb/small meal (such as a sandwich which is approximately 30 grams of carbohydrates), you would take 2 units; for a medium meal (such as a sandwich and small bag of chips which is approximately 42 grams of carbohydrates), you would take 3 units; for a large/high carb meal (such as 1.5 cups of pasta with meat sauce, which is approximately 60 grams of carbohydrates), you would take 4 unitsIf your blood sugar before a meal is elevated, please add the following correction of 1 unit for every 30 points above a blood sugar of 150mg/dl. Please follow the scale below. This is to be added to you base dose of Humalog. If your blood sugar before a meal is elevated, please add the following correction of 1 unit for every 20 points above a blood sugar of 140mg/dl. Please follow the scale below. This is to be added toyou base dose of Humalog. Blood Sugar HUMALOG DOSE 141-160 ADD 1 unit 161-180 ADD 2 units 181-200 ADD 3 units 201-220 ADD 4 units 221-240 ADD 5 units 241- 260 ADD 6 units 261-280 ADD 7 units 281-300 ADD 8 units >300 or HI ADD 9 units and call Doctor Please remember to take your Humalog at the start of your meal. 1. If you forget to take it at the start of your meal and it has been less than an hour, please take the full amount of insulin you had calculated before starting to eat. 2. If it has been over an hour since you started eating, please recheck your blood sugar and give acorrection only. 3. Try to stay active and drink lots of water, this will help bring down your blood sugars. Also try an avoid eating additional carbohydrates. Remember that blood sugars can be elevated by other thing than carbohydrates. So it is important tocheck prior to meal times even if you are not eating and give correction dose. Treatment of Low Blood Sugar (Hypoglycemia) If your BG is lower than 80, you are likely to feel shaky, sweaty and lightheaded. This is a signalthat your body needs more sugar. Quickly eat or drink a small serving of something sweet, such as: 4 ounces fruit juice or regular (not diet) soda 6 lifesavers small box of raisins 4 glucose tablets (~15 gm of glucose) If your BG is very low <50, you can double the amount above or take 30 gm of glucose gel/tablets. Sit and rest and you should feel better within a few minutes. Once you are feeling better, try to determine why your BG was so low. Common causes of hypoglycemia include skipping a meal, lots of exercise, too much insulin or any combination of these things. Understanding the cause my help you to avoid another low BG in the future. Please test blood sugars prior to driving, make sure glucose levels are greater than 100mg/dl. If not have a snack and retest blood sugars in 15 minutes. Please carry a glucose source on you at all times. If blood sugars prior to bedtime are jose than 110mg/dl. Please have a small snack about 15 grams of carbohydrates. Call your doctor for blood sugars less than 80 or greater than 300 twice in one day to have your insulin doses adjusted. HOW TO REACH NEUROSURGERY Office Hours (Sunday through Sunday 8am-5pm): Call On weekends or after office hours (after 5pm or before 8am): Call [phone] and ask the commercial front load operator to page the Neurosurgery Resident/Advanced Practice Provider fiscal economist. *Your surgeon may not be call centre supervisor (especially after office hours or on the weekend) so be ready totell about yourself and your surgery when you call. Neurosurgery Providers Adult Neurosurgery Dr. Elida Ibarra Pediatric Neurosurgery Dr. Skylar Horowitz Advanced Practice Providers Alexia Robertson, Nurse Practitioner (outpatient) Slime Adair, Physician Sales Support Engineer (inpatient/outpatient: neuro-onc) Maura Jacobson, Physician Sales Support Engineer (inpatient) Jeanette Noel, Nurse Practitioner (inpatient) Derik Velazquez, Nurse Practitioner (outpatient: pediatric) Destiny Alfredo, Nurse Practitioner (outpatient: vascular) Fanny Blackman, Physician Sales Support Engineer (outpatient: spine) Ray Cleary, Nurse Practitioner (inpatient/outpatient) Max Dahl, Physician Sales Support Engineer (outpatient) Outpatient Nurses GOMEZ Maxwell 09/13/2022 documented in this encounter Discharge Instructions * Patient Instructions* Maura Jacobson PA - 09/13/2022 1:26 PM EST [facility] ENDOVASCULAR TREATMENT OF UNRUPTURED INTRACRANIAL ANEURYSM DISCHARGE INSTRUCTIONS Procedure: Intracranial Stent-assisted Embolization of LEFT paraophthalmic ICA aneurysm Puncture Site: Right common femoral artery Date: 09/11/22 PRESCRIPTION INSTRUCTIONS: Please see the medication reconciliation list on this discharge summary for a current list of your medications. If not already on blood thinners, these will be started at the time of your coiling procedure [x] Plavix (clopidogrel): Please take this medication following treatment of your aneurysm. Your doctor will tell you how long you need to be on this medication at your follow up appointment. [x] Aspirin: Please take an aspirin 81mgdaily unless instructed otherwise; possibly lifelong. This is necessary due to the coils that are placed in your aneurysm. -Please contact us if you are having bruising, bleeding from gums or nose, or heartburn/stomach pain while taking the blood thinners. If you are a diabetic and take Metformin or Janumet, Do not take it for 2 days after the procedure. WHEN TO SEEK MEDICAL CARE: Signs or [...] while awake, for prolonged amounts of time. Avoid straining for bowel movements as you can pop open the clot that has formed on the artery. WOUND CARE: - The puncture site at the top of your thigh can be very tender for a week or two. Avoid soaking inthe tub or swimming for 7 days after procedure. - If you develop bulging under the skin or bleeding at the puncture site, put direct pressure on the puncture site for 15 minutes and call your doctor. If the bleeding persists, reapply pressure, andgo to your local Emergency Department. - If you notice a sudden change in the feeling (numbness, tingling and/or pain) of your leg on the side of the puncture call your doctor. - You may develop a bruise at the puncture site. This should go away within a week to 10 days. If abulge develops after the first three days, call your doctor or the Neurosurgery Department here. Report signs of infection (redness, swelling, discharge, soreness, or fever) to your doctor. - Leave the bandage on for 24-48 hours. You may shower the following day after the procedure. DIET: - You may resume your usual diet. - Drink 6-8 ounces of fluid per hour for the next 8 hours. Avoid alcoholic or caffeinated beveragesfor 24 hours. ACTIVITY: - You may increase your activities as tolerated. - Restrict strenuous activity (such as running, jumping, jogging, shoveling, heavy lifting, etc.) for at least 2 weeks. - Stair climbing should be kept to a minimum. Do not lift objects heavier than 10-15 pounds for thenext 48 hours - Do not drive while taking any narcotic pain medication, if prescribed. Brain Aneurysm Support Group First Sunday of each month 5:30 - 7:00pm Meetings will be held both in-person and [place] [address] To Join the Meeting from Home, visit the following link at the scheduled time of the meeting: [email or web address] You will be asked to download [employer] to your device, and you can then join the meeting from [employer]. Contact Please contact Destiny Alfredo for details. [email or web address] [phone] FOLLOW UP PLAN: [x] Please follow up in the Neurosurgery Clinic in 4-6 weeks. Please call the Neurosurgery Office at [phone] if you do not receive a scheduled appointment within two weeks. You will follow-up with: [x] Dr. Townsend Imaging: [x] No imaging required at initial telehealth follow up [x] Will require CT Angiogram at 3 month follow up HOW TO REACH NEUROSURGERY Contact your Doctor Office Hours: Sunday through Sunday, 8am-5pm. Call . On weekends or after office hours: Call [phone] and ask the commercial front load operator to page the Neurosurgery Resident fiscal economist. IMPORTANT PHONE NUMBERS: Outpatient Nurse (Roxana Bright) Inpatient Nurses Neurosurgical Resident/Advanced Practice Provider On-Call (after 5pm or before 8am) Neurosurgery offices (Sunday through Sunday between 8am-5pm): Adult Neurosurgery Dr. Deric Ibarra Pediatric Neurosurgery Dr. Skylar Horowitz Advanced Practice Providers Alexia Robertson, Nurse Practitioner (outpatient) Slime Adair, Physician Sales Support Engineer (inpatient) Destiny Alfredo, Nurse Practitioner (inpatient) Jeanette Noel, Nurse Practitioner (inpatient) Maura Jacobson, Physician Sales Support Engineer (inpatient) Maura Morrow, Physician Sales Support Engineer (inpatient) Fanny Blackman, Physician Sales Support Engineer (outpatient: spine) Ray Cleary, Nurse Practitioner (inpatient/outpatient) Max Dahl, Physician Sales Support Engineer (outpatient) * Your surgeon may not be call centre supervisor, so be ready to tell about yourself and your surgery when you call, especially after hours or on the weekend. Diabetes Discharge Instructions Please test blood sugars 4 times daily prior to breakfast, lunch, dinner, and bedtime. Please test blood sugars with any symptoms. Please work on eating a diet that is lower in fat and carbohydrates. Please work on staying active.The goal is thirty minutes daily, as tolerated. Instructions for Tresiba Insulin (LONG ACTING) FOR TONIGHT ONLY (09/13/22).... TAKE 10 UNITS. STARTING TOMORROW... Please inject Tresiba 20 units every evening If your fasting blood sugars are above 150mg/dl two days in a row, please increase your Tresiba by 2 units. If your fasting blood sugars are below 90mg/dl two days in a row, please decrease your Tresiba by 2units. This now becomes your new dose. Instructions for Mealtime Humalog Insulin This is the rapid-acting insulin, used at mealtime to prevent a high BG after you eat. Check your BG before each meal. If your BG is 80 or higher, inject Humalog right before eating. If your BG is lower than 80, or you have symptoms of a low BG, treat the low BG first, then eat your meal and take the Humalog after eating. 3. Inject Humalog for breakfast, for lunch and for dinner based on a 1 unit per every 15 gram carbohydrate insulin to carbohydrate ratio. For a low carb/small meal (such as a sandwich which is approximately 30 grams of carbohydrates), you would take 2 units; for a medium meal (such as a sandwich and small bag of chips which is approximately 42 grams of carbohydrates), you would take 3 units; for a large/high carb meal (such as 1.5 cups of pasta with meat sauce, which is approximately 60 grams of carbohydrates), you would take 4 unitsIf your blood sugar before a meal is elevated, please add the following correction of 1 unit for every 30 points above a blood sugar of 150mg/dl. Please follow the scale below. This is to be added to you base dose of Humalog. If your blood sugar before a meal is elevated, please add the following correction of 1 unit for every 20 points above a blood sugar of 140mg/dl. Please follow the scale below. This is to be added toyou base dose of Humalog. Blood Sugar HUMALOG DOSE 141-160 ADD 1 unit 161-180 ADD 2 units 181-200 ADD 3 units 201-220 ADD 4 units 221-240 ADD 5 units 241- 260 ADD 6 units 261-280 ADD 7 units 281-300 ADD 8 units >300 or HI ADD 9 units and call Doctor Please remember to take your Humalog at the start of your meal. 1. If you forget to take it at the start of your meal and it has been less than an hour, please take the full amount of insulin you had calculated before starting to eat. 2. If it has been over an hour since you started eating, please recheck your blood sugar and give acorrection only. 3. Try to stay active and drink lots of water, this will help bring down your blood sugars. Also try an avoid eating additional carbohydrates. Remember that blood sugars can be elevated by other thing than carbohydrates. So it is important tocheck prior to meal times even if you are not eating and give correction dose. Treatment of Low Blood Sugar (Hypoglycemia) If your BG is lower than 80, you are likely to feel shaky, sweaty and lightheaded. This is a signalthat your body needs more sugar. Quickly eat or drink a small serving of something sweet, such as: 4 ounces fruit juice or regular (not diet) soda 6 lifesavers small box of raisins 4 glucose tablets (~15 gm of glucose) If your BG is very low <50, you can double the amount above or take 30 gm of glucose gel/tablets. Sit and rest and you should feel better within a few minutes. Once you are feeling better, try to determine why your BG was so low. Common causes of hypoglycemia include skipping a meal, lots of exercise, too much insulin or any combination of these things. Understanding the cause my help you to avoid another low BG in the future. Please test blood sugars prior to driving, make sure glucose levels are greater than 100mg/dl. If not have a snack and retest blood sugars in 15 minutes. Please carry a glucose source on you at all times. If blood sugars prior to bedtime are jose than 110mg/dl. Please have a small snack about 15 grams of carbohydrates. Call your doctor for blood sugars less than 80 or greater than 300 twice in one day to have your insulin doses adjusted. documented in this encounter Medications at Time of Discharge Medication Sig Dispensed Refills Start Date End Date Insulin Tresiba FlexTouch U-200 200 unit/mL (3 [...] as of this encounter Progress Notes * Alyssa Bob RN - 09/13/2022 3:48 PM EST OUTCOME EVALUATION NOTE: OUTCOME SUMMARY: Pt discharged home with friend driving home. Pt's bilateral PIV discontinued prior to discharge. Ptoff oxygen this morning. Voiding without difficulty. Discharge instructions given, reviewed, questions answered. Team to notify patient Regarding continuation of Jardiance when home. Pt verbalized understanding of instructions. Pt has belongings with her. Discharged in a wheel chair. Pt neuro intact, Pt's PEREZ better after taking Tylenol. Right groin site without pain or hematoma, dressing with old blood stain, without increase. * Denise Hogue APRN - 09/13/2022 11:48 AM EST Patient being discharged today. Pt has used quite a bit less insulin than when out patient. Recommend pt being discharged on current insulin regimen. But using her out patient meds. Diabetes Discharge Instructions Please test blood sugars 4 times daily prior to breakfast, lunch, dinner, and bedtime. Please test blood sugars with any symptoms. Please work on eating a diet that is lower in fat and carbohydrates. Please work on staying active.The goal is thirty minutes daily, as tolerated. Instructions for Tresiba Insulin (LONG ACTING) FOR TONIGHT ONLY .... TAKE 10 UNITS. STARTING TOMORROW... Please inject Tresiba 20 units every evening If your fasting blood sugars are above 150mg/dl two days in a row, please increase your Tresiba by 2 units. If your fasting blood sugars are below 90mg/dl two days in a row, please decrease your Tresiba by 2units. This now becomes your new dose. Instructions for Mealtime Humalog Insulin This is the rapid-acting insulin, used at mealtime to prevent a high BG after you eat. Check your BG before each meal. 1. If your BG is 80 or higher, inject Humalog right before eating. 2. If your BG is lower than 80, or you have symptoms of a low BG, treat the low BG first, then eat your meal and take the Humalog after eating. 3. Inject Humalog for breakfast, for lunch and for dinner based on a 1 unit per every 15 gram carbohydrate insulin to carbohydrate ratio. For a low carb/small meal (such as a sandwich which is approximately 30 grams of carbohydrates), you would take 2 units; for a medium meal (such as a sandwich and small bag of chips which is approximately 42 grams of carbohydrates), you would take 3 units; for a large/high carb meal (such as 1.5 cups of pasta with meat sauce, which is approximately 60 grams of carbohydrates), you would take 4 unitsIf your blood sugar before a meal is elevated, please add the following correction of 1 unit for every 30 points above a blood sugar of 150mg/dl. Please follow the scale below. This is to be added to you base dose of Humalog. If your blood sugar before a meal is elevated, please add the following correction of 1 unit for every 20 points above a blood sugar of 140mg/dl. Please follow the scale below. This is to be added toyou base dose of Humalog. Blood Sugar HUMALOG DOSE 141-160 ADD 1 unit 161-180 ADD 2 units 181-200 ADD 3 units 201-220 ADD 4 units 221-240 ADD 5 units 241- 260 ADD 6 units 261-280 ADD 7 units 281-300 ADD 8 units >300 or HI ADD 9 units and call Doctor Please remember to take your Humalog at the start of your meal. 1. If you forget to take it at the start of your meal and it has been less than an hour, please take the full amount of insulin you had calculated before starting to eat. 2. If it has been over an hour since you started eating, please recheck your blood sugar and give acorrection only. 3. Try to stay active and drink lots of water, this will help bring down your blood sugars. Also try an avoid eating additional carbohydrates. Remember that blood sugars can be elevated by other thing than carbohydrates. So it is important tocheck prior to meal times even if you are not eating and give correction dose. Treatment of Low Blood Sugar (Hypoglycemia) If your BG is lower than 80, you are likely to feel shaky, sweaty and lightheaded. This is a signalthat your body needs more sugar. Quickly eat or drink a small serving of something sweet, such as: 4 ounces fruit juice or regular (not diet) soda 6 lifesavers small box of raisins 4 glucose tablets (~15 gm of glucose) If your BG is very low <50, you can double the amount above or take 30 gm of glucose gel/tablets. Sit and rest and you should feel better within a few minutes. Once you are feeling better, try to determine why your BG was so low. Common causes of hypoglycemia include skipping a meal, lots of exercise, too much insulin or any combination of these things. Understanding the cause my help you to avoid another low BG in the future. Please test blood sugars prior to driving, make sure glucose levels are greater than 100mg/dl. If not have a snack and retest blood sugars in 15 minutes. Please carry a glucose source on you at all times. If blood sugars prior to bedtime are jose than 110mg/dl. Please have a small snack about 15 grams of carbohydrates. Call your doctor for blood sugars less than 80 or greater than 300 twice in one day to have your insulin doses adjusted. * Rodo Guillen RN - 09/13/2022 7:00 AM EST OUTCOME EVALUATION NOTE: OUTCOME SUMMARY: Uneventful night. VSS on 1L NC. Attempted RA but eventually needed O2 when in deep sleep. Neuro checks stable. PLAN MOVING FORWARD: Q2 neuro checks/vitals Q4 BG MAP 70-90 * Rich Butt MD - 09/13/2022 6:30 AM EST NEUROSURGERY PROGRESS NOTE ID: Mary Beth Holman is a 62 y.o. female right-handed on ASA/plavix (taking for 2 wks) with PMH COPD, DM, HLD, HTN, BUI, and incidental L ICA aneurysm presenting for elective stent embolization. 09/11, Dr. Townsend: stent embolization L ICA aneurysm INTERVAL Hx: -NAEON MEDICATIONS: Scheduled Meds: ??? insulin lispro 0-6 Units Subcutaneous TID WC ??? insulin glargine (Lantus;Semglee) (100 unit/mL) subcutaneous injection 10 Units Subcutaneous BID ??? aspirin 81 mg Oral Daily ??? clopidogreL 75 mg Oral Daily ??? meclizine 50 mg Oral BID ??? pregabalin 150 mg Oral BID ??? PARoxetine 20 mg Oral Daily ??? empagliflozin 25 mg Oral Daily ??? insulin lispro 1-6 Units Subcutaneous Q4H CLAUS ??? pantoprazole EC 40 mg Oral Daily Continuous Infusions: PRN: ipratropium-albuteroL, 3 mL, Q4H PRN glucose 40% oral geL, 15-30 g of glucose, Q30 Min PRN Or dextrose 10%, 250 mL, Q30 Min PRN Or glucagon, 1 mg, Q30 Min PRN acetaminophen, 1,000 mg, Q6H PRN Or acetaminophen, 1,000 mg, Q6H PRN Or acetaminophen, 975 mg, Q6H PRN polyethylene glycoL, 17 g, Daily PRN bisacodyl EC, 10 mg, BID PRN EXAM: Temp: [36.5 ??C (97.7 ??F)-38 ??C (100.4 ??F)] Heart Rate: [68-87] Resp: [11-24] BP: (100-143)/(50-80) SpO2: [86 %-98 %] Heart Rate from SpO2: [68 bpm-86 bpm] I/O: Intake/Output Summary (Last 24 hours) at 09/13/2022 0543 Last data filed at 09/13/2022 0400 Gross per 24 hour Intake 1739 ml Output 4580 ml Net -2841 ml Drains: None GEN:NAD NEURO: AA+Ox3 Speech fluent and appropriate. Naming and repetition intact. PERRL. EOMI. No facial asymmetry Tongue midline MOTOR: RUE:5/5 LUE:5/5 RLE: 5/5 LLE: 5/5 Paresthesias in b/l hands and b/l legs below hips (chronic) Groin site without hematoma, mild strike thru on dressing, distal pulses 2+ LABS: Recent Labs 09/13/22 0415 09/12/22 0235 09/11/22 1219 WBC 9.5 7.3 7.5 HGB 14.2 14.9 17.6* PLATELET 126* 150 204 Recent Labs 09/13/22 0415 09/12/22 0235 NA 143 142 K 4.0 4.7 CL 105 108* CO2 32* 27 BUN 16 17 CREATININE 0.68* 0.59* Recent Labs 09/11/22 1219 PT 11.0 INR 1.0 IMAGING: None Assessment: 62 y.o. female right-handed on ASA/plavix (taking for 2 wks) with PMH COPD, DM, HLD, HTN, BUI, and incidental L ICA aneurysm presenting for elective stent embolization. Now s/p stent embolization L ICA aneurysm. Stable post op. Plan: -Q4 neuro checks -SBP<160 -DVT ppx with SCDs -ASA/plavix -F/u P2Y12 -Mobilize -Diet as tolerated -Dispo d/c home today For question please call NSGY pager [phone] Rich Butt MD 09/13/2022 5:43 AM Clinical Documentation Improvement: There are no hospital problems to display for this patient. Associated attestation - Vera Townsend MD - 09/15/2022 4:35 PM EST I, Vera Townsend, discussed the patient with the resident/REYES team, personally reviewed the imaging, agree with the assessment and plan as documented above, and personally evaluated the patient. 09/15/2022 4:35 PM Vera Townsend MD Open cerebrovascular and endovascular neurosurgery attending * Dayna White RCP - 2022 6:00 PM EST 09/12/22 1520 Oxygen Therapy O2 Device NC O2 Flow Rate (L/min) 2 L/min SpO2 97 % Resp 11 Pt on 2L juan well Pt has orders for duoneb prn q4, not needed today Will continue to monitor pt * Rich Butt MD - 2022 6:30 AM EST NEUROSURGERY PROGRESS NOTE ID: Mary Beth Holman is a 62 y.o. female right-handed on ASA/plavix (taking for 2 wks) with PMH COPD, DM, HLD, HTN, BUI, and incidental L ICA aneurysm presenting for elective stent embolization. 09/11, Dr. Townsend: stent embolization L ICA aneurysm INTERVAL Hx: -NAEON MEDICATIONS: Scheduled Meds: ??? clopidogreL 75 mg Oral Daily ??? meclizine 50 mg Oral BID ??? pregabalin 150 mg Oral BID ??? PARoxetine 20 mg Oral Daily ??? empagliflozin 25 mg Oral Daily ??? insulin lispro 1-6 Units Subcutaneous Q4H CLAUS ??? pantoprazole EC 40 mg Oral Daily Continuous Infusions: PRN: ipratropium-albuteroL, 3 mL, Q4H PRN glucose 40% oral geL, 15-30 g of glucose, Q30 Min PRN Or dextrose 10%, 250 mL, Q30 Min PRN Or glucagon, 1 mg, Q30 Min PRN acetaminophen, 1,000 mg, Q6H PRN Or acetaminophen, 1,000 mg, Q6H PRN Or acetaminophen, 975 mg, Q6H PRN polyethylene glycoL, 17 g, Daily PRN bisacodyl EC, 10 mg, BID PRN EXAM: Temp: [36.3 ??C (97.3 ??F)-36.7 ??C (98.1 ??F)] Heart Rate: [68-87] Resp: [11-29] BP: (100-131)/(51-92) SpO2: [86 %-98 %] Heart Rate from SpO2: [67 bpm-87 bpm] I/O: Intake/Output Summary (Last 24 hours) at 2022 1358 Last data filed at 2022 1326 Gross per 24 hour Intake 3463 ml Output 3604 ml Net -141 ml Drains: None GEN:NAD, on NC NEURO: AA+Ox3 Speech fluent and appropriate. Naming and repetition intact. PERRL. EOMI. No facial asymmetry Tongue midline MOTOR: RUE:5/5 LUE:5/5 RLE: 5/5 LLE: 5/5 Paresthesias in b/l hands and b/l legs below hips (chronic) Groin site without hematoma, mild strike thru on dressing, distal pulses 2+ LABS: Recent Labs 09/12/22 0235 09/11/22 1219 WBC 7.3 7.5 HGB 14.9 17.6* PLATELET 150 204 Recent Labs 09/12/22 0235 NA 142 K 4.7 CL 108* CO2 27 BUN 17 CREATININE 0.59* Recent Labs 09/11/22 1219 PT 11.0 INR 1.0 IMAGING: None Assessment: 62 y.o. female right-handed on ASA/plavix (taking for 2 wks) with PMH COPD, DM, HLD, HTN, BUI, and incidental L ICA aneurysm presenting for elective stent embolization. Now s/p stent embolization L ICA aneurysm. Stable post op. Plan: -Q2 neuro checks -MAP 70-90 x24hrs post op -DVT ppx with SCDs -ASA/plavix -F/u P2Y12 -Mobilize -Diet as tolerated -Remove conteh -Wean NC -Dispo pending course For question please call NSGY pager [phone] Rich Butt MD 2022 1:58 PM Clinical Documentation Improvement: There are no hospital problems to display for this patient. Associated attestation - Vera Townsend MD - 09/15/2022 4:34 PM EST I, Vera Townsend, discussed the patient with the resident/REYES team, personally reviewed the imaging, agree with the assessment and plan as documented above, and personally evaluated the patient. Doing well, plan to monitor today, wean O2. 09/15/2022 4:34 PM Vera Townsend MD Open cerebrovascular and endovascular neurosurgery attending * Jeanette Noel, BARBI - 09/11/2022 8:41 PM EST NEUROSURGERY PROGRESS NOTE PLEASE PAGE [phone] WITH QUESTIONS ID: Mary Beth Holman is a 62 y.o. female right-handed on ASA/plavix (taking for 2 weeks, last dose this morning 09/11) with PMHx of COPD, DM, HLD, HTN, BUI and incidental L ICA aneurysm presenting for elective stent embolization. HD# 0 POD # Day of Surgery 09/11/2022; Dr. Townsend; L ICA aneurysm stent embolization INTERVAL HX/ROS: -POC -Slow to emerge from anesthesia, requiring extubation to occur in PACU -Neurologically stable. EXAM: GEN:NAD, eyes open to voice. Laying on left side. Periorbital edema present but able to open eyes. NEURO: Alert & Oriented x3 Speech fluent and appropriate. PERRL. EOMI. Tongue midline MOTOR: following commands x4. Squeezes examiners hands with good strength and wiggling toes. Anti-gravity LT sensation intact x 4 Groin site without hematoma, distal pulses 2+ Dressings dry and intact A/P: Mary Beth Holman is a 62 y.o. female ight-handed on ASA/plavix (taking for 2 weeks, last dose this morning 09/11) with PMHx of COPD, DM, HLD, HTN, BUI and incidental L ICA aneurysm presenting for elective stent embolization. -ICU post operatively -Neuro checks: Q1h -Imaging: none unless indicated -Maps 70-90 -Remain flat x 4 hours post-operatively. Able to mobilize and sit up around 2100. -ASA/Plavix to start 3/7 AM -DVT prophylaxis: SCDs. Hold anticoagulation and antiplatelet -Rest of care per NCCU. MEDICATIONS: Scheduled Meds: ??? [START ON 2022] clopidogreL 75 mg Oral Daily ??? meclizine 50 mg Oral BID ??? pregabalin 150 mg Oral BID ??? [START ON 2022] PARoxetine 20 mg Oral Daily ??? [START ON 2022] empagliflozin 25 mg Oral Daily ??? sodium chloride 0.9 % (flush) 5 mL Intravenous BID ??? sodium chloride 0.9 % (flush) 5 mL Intravenous BID ??? insulin lispro 1-6 Units Subcutaneous Q4H CLAUS ??? chlorhexidine 15 mL Oral BID ??? pantoprazole EC 40 mg Oral Daily Continuous Infusions: ??? propofoL (Diprivan) (10 mg/mL) infusion 0-50 mcg/kg/min Intravenous Continuous ### PRN Meds: ipratropium-albuteroL, glucose 40% oral geL OR dextrose 10% OR glucagon, sodium chloride 0.9 % (flush), lidocaine, sodium chloride 0.9 % (flush), lidocaine, acetaminophen OR acetaminophen OR acetaminophen, polyethylene glycoL, bisacodyl EC, propofoL AND propofoL Vitals: Temp: [36.3 ??C (97.3 ??F)] Heart Rate: [71-94] Resp: [13-29] BP: (130-131)/(92) SpO2: [97 %-99 %] Heart Rate from SpO2: [72 bpm] BMI: Weight: 96.2 kg (212 lb 1.3 oz) (09/11/222014) I/O: I/O last 3 completed shifts: In: 1500 [I.V.:1500] Out: 209 [Urine:200; Blood:9] LABS: Recent Labs 09/11/22 1219 WBC 7.5 HGB 17.6* PLATELET 204 No results for input(s): NA, K, CL, CO2, BUN, CREATININE in the last 72 hours. Recent Labs 09/11/22 1219 PT 11.0 INR 1.0 IMAGING: No results found for this visit on 09/11/22. There are no hospital problems to display for this patient. Active Non-Hospital Problems Diagnosis ??? Aneurysm of left internal carotid artery ??? Obesity ??? BUI with fibrosis ??? Left sided sciatica ??? History of alcohol abuse ??? Chronic low back pain ??? Hypertension ??? Chronic obstructive pulmonary disease ??? Diabetes mellitus ??? Cigarette smoker ??? Gastro-esophageal reflux ??? HLD (hyperlipidemia) Jeanette Noel APRN 09/11/2022 * Octavia Lynch RT - 09/11/2022 6:58 PM EST Vent Settings: Ventilator Mode: VC Tidal Volume Set: 450 (8cc/kg IBW) Resp Rate 12-15 Set: (S) 15 (pH7.23 / PaCO2 59 / PaO2 87) PEEP Set: 8 FiO2: 50 % Ventilator Measurements: Resp: 15 Vt Exhaled: 436 PIP: 26 MAP: 11 Plateau Press: Ve: 6.3 PEEP: SpO2: 98 % EtCO2: 43 mmHg Airway: 7.0 @ 22 cm at the Gum. Skin Integrity: WDL Breath Sounds: Rhonchi, equal bilaterally Assessment / Events / Plan of the Day: Received patient from intubated and placed on vent. Patient extubated by team. Tolerated well. Pending transfer to ICU RT MAIRA documented in this encounter H&P Notes * iRch Butt MD - 09/11/2022 12:01 PM EST Neurosurgery Pre-Op H&P Mary Beth Holman was seen and examined in SDP. No interval events or changes in health status since preoperative cerebral DSA (see EPIC note dated 08/[address] Townsend). All questions were answered. Stable for surgery as scheduled. HPI: 61F right-handed on ASA/plavix (taking for 2 wks, last dose this morning) with PMH COPD, DM, HLD, HTN, BUI, and incidental L ICA aneurysm presenting for elective stent embolization. Exam: AOx3 Speech fluent PERRl EOMI Face symmetric 5/5x4 Paresthesias in b/l hands and b/l legs below hips (chronic) A/P: -Proceed with surgery as planned. Rich Butt MD 09/11/22 12:01 PM Past Medical History: Past Medical History: Diagnosis Date ??? Acid reflux ??? Allergy ??? Anxiety ??? Arthritis ??? Asthma ??? Diabetes ??? Dry mouth ??? Emphysema/COPD ??? High cholesterol ??? Hypertension ??? Liver cirrhosis secondary to BUI Past Surgical History: Past Surgical History: Procedure Laterality Date ??? SECTION 3 ??? ELBOW SURGERY Left 2 left elbow ??? IR ARTERIOGRAM CEREBRAL 08/04/2022 IR Arteriogram Cerebral 08/04/2022 Bernardo Carmen MD [facility] INTERVENTIONL RAD ??? PRO COLONOSCOPY, REMV LESN, SNARE N/A 10/10/2017 COLONOSCOPY, POLYPECTOMY, REMOVAL LESION BY SNARE (WRVU 4.67) performed by Richmond Orellana MD at [facility] ENDOSCOPY ??? PRO EXCISION SUBMAXILLARY GLAND Left 02/23/2017 EXCISION SUBMANDIBULAR (SUBMAXILLARY) GLAND-GARY (WRVU 6.14) performed by Salty Butler MD [facility] MAIN OR ??? PRO UPPER GI ENDOSCOPY, BIOPSY N/A 10/10/2017 EGD WITH BIOPSY (WRVU 2.49) performed by Richmond Orellana MD at [facility] ENDOSCOPY ??? WRIST SURGERY Left 2 left wrist Medications: No current facility-administered medications on file prior to encounter. Current Outpatient Medications on File Prior to Encounter Medication Sig Dispense Refill ??? clopidogreL (Plavix) 75 mg Tablet Take 1 tablet by mouth daily. Start 14 days prior to aneurysmprocedure. 90 tablet 3 ??? pregabalin (LYRICA) 150 mg Capsule Take by mouth 2 times daily. ??? Insulin Tresiba FlexTouch U-200 200 unit/mL (3 mL) Insulin Pen INJECT 20 UNITS UNDER THE SKIN IN THE MORNING AND 56 AT BEDTIME ??? meclizine (Antivert) 25 mg Tablet Take by mouth 2 times daily. Takes 50 mg in the morning and 50 mg at night ??? PARoxetine (Paxil) 20 mg Tablet TK 1 T PO D ??? JARDIANCE 25 mg Tablet 0 ??? insulin lispro (HUMALOG) Insulin Pen Inject 2-20 Units subcutaneously as needed. ??? LANTUS SOLOSTAR U-100 INSULIN pen inject 52 units subcutaneously once daily 0 ??? lisinopril (PRINIVIL;ZESTRIL) 20 mg Tablet Take 20 mg by mouth daily. 0 ??? multivitamin Capsule Take 1 capsule by mouth daily. ??? pantoprazole EC (Protonix) 40 mg Tablet, Delayed Release (E.C.) Take 1 tablet by mouth daily. Start 14 days prior to aneurysm procedure. Stop taking omeprazole when you start this medication. 90 tablet 3 ??? ProAir RespiClick 90 mcg/actuation Aerosol Powdr Breath Activated INHALE TWO PUFFS BY MOUTH EVERY 4 HOURS NEEDED FOR WHEEZING OR SHORTNESS OF BREATH ??? BD ULTRA-FINE MINI PEN NEEDLE 31 gauge x 3/16 Needle USE DAILY WITH LANTUS 0 ??? ONETOUCH ULTRA TEST Strip 0 ??? ONE TOUCH DELICA 33 gauge Misc 0 ??? omeprazole (PRILOSEC) 40 mg Capsule, Delayed Release(E.C.) Take 40 mg by mouth daily. 0 ??? albuterol (PROVENTIL HFA;VENTOLIN HFA;PROAIR) 90 mcg/actuation HFA Aerosol Inhaler Inhale 2 puffs into the lungs every 4 hours as needed for Wheezing. Use with spacer Allergies: Allergies Allergen Reactions ??? Aspirin Other reaction(s): GI Upset ??? Celecoxib Other reaction(s): GI Upset ??? Fluoxetine ??? Fluoxetine Hcl CIS - BAD RASH ??? Metformin Diarrhea and Nausea And Vomiting ??? Rofecoxib Other reaction(s): bleeding Family History: Family History Problem Relation Age of Onset ??? Amblyopia Son ??? Glaucoma Neg Hx ??? Macular Degeneration Neg Hx ??? Retinal Detachment Neg Hx Social History: Social History Socioeconomic History ??? Marital status: Spouse name: Not on file ??? Number of children: Not on file ??? Years of education: Not on file ??? Highest education level: Not on file Occupational History ??? Not on file Tobacco Use ??? Smoking status: Every Day Packs/day: 0.25 Years: 40.00 Pack years: 10.00 Types: Cigarettes ??? Smokeless tobacco: Never ??? Tobacco comments: down to 5 cigs. Vaping Use ??? Vaping Use: Never used Substance and Sexual Activity ??? Alcohol use: No ??? Drug use: Yes Types: Marijuana ??? Sexual activity: Not on file Other Topics Concern ??? Not on file Social History Narrative ??? Not on file Social Determinants of Health Financial Resource Strain: Not on file Food Insecurity: Not on file Transportation Needs: Not on file Physical Activity: Not on file Housing Stability: Not on file Review of Systems: As above, otherwise noncontributory. Vital Signs: There were no vitals taken for this visit. Labs: CBC: Lab Results Component Value Date/Time WBC 8.0 08/04/2022 08:14 AM HGB 17.0 (H) 08/04/2022 08:14 AM PLATELET 154 08/04/2022 08:14 AM BMP: Lab Results Component Value Date/Time NA 139 02/23/2022 08:38 AM K 4.1 02/23/2022 08:38 AM CL 102 02/23/2022 08:38 AM CO2 25 02/23/2022 08:38 AM BUN 12 02/23/2022 08:38 AM CREATININE 0.74 08/04/2022 08:14 AM Coags: No results found for: INR, PT, PTT Associated attestation - Vera Townsend MD - 09/11/2022 6:31 PM EST IVera, discussed the patient with the resident/REYES team, personally reviewed the imaging, and agree with the assessment and plan as documented above. 09/11/2022 6:31 PM Vera Townsend MD Open cerebrovascular and endovascular neurosurgery attending documented in this encounter Miscellaneous Notes * Care Management Discharge - Roxana Kirby RN - 09/13/2022 3:12 PM EST CARE MANAGEMENT FINAL DISCHARGE NOTE Chart reviewed, care reviewed with primary team and at interdisciplinary rounds. Patient is medically ready for discharge to home. Needs for Transition of Care: Plan for discharge is: Home w/o Services Outpatient Agency/Support Group Needs: None Agency Referrals & Follow-up Care: Transportation: family or friend will provide Functional status prior to admission: Independent Home Environment: Others in the home: sibling(s), pet(s), other relative(s) (Patient lives with mau mancuso, 2 dogs, and a cat). Current Living Arrangements: mobile home. Accessibility Concerns:Patient has 3 steps to enter her mobile home. Current Functional Ability: Assistive Person DME used at home: none DME Needed at Discharge: Patient is insured through: Primary Insurance: [place] Payor: [place] / Plan: [place] PRIMARY CARE PL[place] / Product Type: *No Product type* / Secondary Insurance: N/A Prescription Coverage: Yes This plan was formulated with input from patient and team. All are in agreement with plan. Roxana VARGHESE RN CM Phone: [phone] Pager: [phone] * Plan of Care - Elizabeth Herman RN - 2022 3:32 PM EST OUTCOME EVALUATION NOTE: OUTCOME SUMMARY: Patient downgraded to stepdown this morning, with q2 neuro checks - exam remains stable, see flowsheet for details. Patient OOB to chair today, walked around the unit with standby assist. Some complaints of headache this afternoon, relieved with tylenol and afternoon nap. Patient weaned to 1-2L NC.Carb controlled diet ordered, patient tolerating well, q4 BG checks ordered - Patient now receiving SSI and meal associated insulin, as well as glargine 10u BID. Arterial line d/c today per orders, maintaining MAP goal 70-90. Conteh d/c today, patient voiding adequately in toilet in room. R groin site without pain or hematoma. Family visited today. PLAN MOVING FORWARD: Q2 neuro checks Q2 vital signs Q4 BG MAP 70-90 Transfer to lower level of care * Initial Assessments - Roxana Kirby RN - 2022 2:31 PM EST Office of Care Management Initial Assessment Roxana Kirby RN reviewed record and discussed patient with Care Team. Source of Information: Team, bedside nurse, medical record, and Patient Introduced self/reviewed role; services accepted. Spoke with patient and daughter this afternoon. Reason for Hospitalization: incidental L ICA aneurysm presenting for elective??stent embolization. Covid Vaccination Status: 1st & 2nd dose Last COVID test: Past medical History: Past Medical History: Diagnosis Date ??? Acid reflux ??? Allergy ??? Anxiety ??? Arthritis ??? Asthma ??? Diabetes ??? Dry mouth ??? Emphysema/COPD ??? High cholesterol ??? Hypertension ??? 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 (Only good for 180 days) Any patient receiving care in [place] must abide by [place] law. The hierarchy for surrogate decision making is: (a) Patient???s spouse, or civil union partner or common law spouse unless there is a divorce proceeding, separation agreement, or restraining order limiting that person???s relationship with the patient. (b) Any adult son or daughter of the patient. (c) Either parent of the patient. (d) Any adult brother or sister of the patient. (e) Any adult grandchild of the patient. (f) Any grandparent of the patient. (g) Any adult aunt, uncle, niece, or nephew of the patient. (h) A close friend of the patient. (i) The agent with financial power of employment law attorney or a conservator appointed in accordance with RSA 464-A. (j) The guardian of the patient???s estate. Advance Care Planning: Attempt Cardiopulmonary Resuscitation - Inpatient <no information> -Advanced Directive: No, declines Current Coping/Education/Information Needs: denies at this time Current Functional Ability: Assistive Person Functional Status Prior to Admission: Independent Prior ADLs & IADLs: Independent with all ADLs & IADLs Home Environment: Others in the home: sibling(s), pet(s), other relative(s) (Patient lives with mau mancuso, 2 dogs, and a cat). Current Living Arrangements: mobile home. Accessibility Concerns:Patient has 3 steps to enter her mobile home. Resource / Environmental Concerns: Resource/Environmental Concerns: none Current DME: none Home Address confirmed as: [address] [facility] [address] Social & Family Supports: All names listed below confirmed with patient as current and correct Extended Emergency Contact Information Primary Emergency Contact: Camryn Hernandez [facility] Relation: Friend Secondary Emergency Contact: Qian Fritz Mobile Relation: Child Current Care Provided by: self Provides Primary Care For: pet(s) Caregiver if needed: sibling(s), child(elif), adult Quality of Family relationships: helpful, involved, supportive Community Resources being provided currently: none Behavioral Health History: history of anxiety and depression and is on Paxil Substance Use/Abuse listed: Social History Tobacco Use Smoking Status Every Day ??? Packs/day: 0.25 ??? Years: 40.00 ??? Pack years: 10.00 ??? Types: Cigarettes Smokeless Tobacco Never Tobacco Comments down to 5 cigs. 0 No problems reported 1-2 Low level 3-5 Moderate level 6-8 Substantial level 9- 10 Severe level 0 to 7 points: Low risk 8 to 15 points: Medium risk 16 to 19 points: High risk 20 to 40 points: Addiction likely Other Pertinent/Service Specific Information: denies at this time Health/Prescription Coverage: Primary Insurance: [place] Pay[place] / Plan[place] PRIMARY CARE [place] / Product Type: *No Product type* / Secondary Insurance: N/A ; Prescription Coverage: Yes Preferred Pharmacy: [id number] - [place], [place] - [address] [facility] [address] [place] [id number] [place] Status: Patient is a : No Primary Care Provider confirmed: Hai Lopez DO [phone] Patient/Caregiver Goals of Treatment: return home when medically ready for discharge Potential Needs for Transition of Care: none Agency Referrals: Not Applicable Transportation: no concerns Transportation Anticipated: family or friend will provide Concerns to be Addressed: denies needs/concerns at this time Assessment: Patient is admitted to neurosurgery service for incidental L ICA aneurysm presenting for elective??stent embolization. Plan: Patient with Q2 hour neuro checks, OOB with PT/OT, wean O2. A member of the Care Management team will continue to monitor progress, follow for continuity of care and assist with transition of care planning. Roxana VARGHESE, RN CM Phone: [phone] Pager: [phone] * Consult Note - Denise Hogue, BARBI - 2022 1:34 PM EST Diabetes Management Team Inpatient Consult Date of Consultation: 2022 Consult Requested by: Neurosurgery Reason for Consultation: Mary Beth Holman is a 62 y.o. female with PMH significant for T2DM who was admitted on 09/11/2022 currently being treated for cerebral aneurysm. We are being consulted to assistwith diabetes management and to provide a review of skilled nursing diabetes care. Diabetes History: Mary Beth Holman has had diabetes since about 2016. Pt reports that she does not take the morning dose of Tresiba - states she forgets it. Current outpatient diabetes regimen: Diabetes Provider: PCP Medications: Tresiba 20 units in the morning and 56 units at night, Jardiance 25 mg daily. Humalog correction at bedtime only 2-12 units if needed. Monitoring is done with a freestyle kristi Most recent HA1c was ordered. Typical diet is: Pt reports she eats only once a day and meal varies. Pt drinks coffee with creamer and truvia in the morning, drinks zero snapple, crystal lite , and water during the day. 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 Acid reflux ??? Allergy ??? Anxiety ??? Arthritis ??? Asthma ??? Diabetes ??? Dry mouth ??? Emphysema/COPD ??? High cholesterol ??? Hypertension ??? 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 clopidogreL 75 mg Oral Daily ??? meclizine 50 mg Oral BID ??? pregabalin 150 mg Oral BID ??? PARoxetine 20 mg Oral Daily ??? empagliflozin 25 mg Oral Daily ??? insulin lispro 1-6 Units Subcutaneous Q4H CLAUS ??? pantoprazole EC 40 mg Oral Daily PRN: ipratropium-albuteroL, glucose 40% oral geL OR dextrose 10% OR glucagon, acetaminophen OR acetaminophen OR acetaminophen, polyethylene glycoL, bisacodyl EC Allergy: Allergies Allergen Reactions ??? Aspirin Other reaction(s): GI Upset ??? Celecoxib Other reaction(s): GI Upset ??? Fluoxetine ??? Fluoxetine Hcl CIS - BAD RASH ??? Metformin Diarrhea and Nausea And Vomiting ??? Rofecoxib Other reaction(s): bleeding Social history: Social History Tobacco Use ??? Smoking status: Every Day Packs/day: 0.25 Years: 40.00 Pack years: 10.00 Types: Cigarettes ??? Smokeless tobacco: Never ??? Tobacco comments: down to 5 cigs. Vaping Use ??? Vaping Use: Never used Substance Use Topics ??? Alcohol use: No ??? Drug use: Yes Types: Marijuana Comment: gummies Family history: Family History Problem Relation Age of Onset ??? Amblyopia Son ??? Glaucoma Neg Hx ??? Macular Degeneration Neg Hx ??? Retinal Detachment Neg Hx Vitals Last value Range last 24 hrs Temperature Temp: 36.7 ??C (98.1 ??F) Temp: [36.3 ??C (97.3 ??F)-36.7 ??C (98.1 ??F)] Heart Rate Heart Rate: 75 Heart Rate: [68-87] Blood Pressure BP: 119/66 BP: (100-131)/(51-92) Respiratory Rate Resp: 12 Resp: [11-29] SpO2 SpO2: 94 % SpO2: [86 %-98 %] Physical Exam: Gen: talking in clear sentences. Sitting in chair comfortably Lungs: breathing non-labored. Neuro: Moving all extremities. Labs: Lab Results Component Value Date BUN 17 2022 CREATININE 0.59 (L) 2022 GLUCOSE 183 2022 ESTGFR 101 2022 Lab Results Component Value Date HA1C 7.7 (H) 09/27/2018 No results found for: MICROALBUR Lab Results Component Value Date CHLPL 257 09/27/2018 Lab Results Component Value Date HDL 45 09/27/2018 Lab Results Component Value Date LDLCHOL Not Calculated 09/27/2018 Lab Results Component Value Date TRIG 159 2022 Lab Results Component Value Date CHOLHDL 5.7 09/27/2018 Assessment: Patient is a 62 y.o. years old female with PMH significant for DM who was admitted on 09/11/2022 for cerebral aneurysm. Diabetes currently complicated by not on home regimen. Currently with variabilityof blood glucose levels while hospitalized requiring adjustment of insulin regimen and DM medications. Pt's TDD is approximately 56 units. Using rule of 500 and 1500 respectively, gives a carb ratio of 8.9 and a Correction scale of 26.7 Pt is currently requiring minimal insulin. Tresiba was last given Sunday night. This stays onboard for approximately 42 hours. Recommend meal associated at 1:15 carb ratio, Lantus 10 units twice dialy, and continue current correction Primary team to enter in orders Plan: 1. Lantus 10 units twice daily 2. Lispro moderate correction scale for BG>140 3. Meal-associated Lispro 1unit: 15 gm carb ratio for each meal Diabetes Discharge Planning Medications - Outpatient treatment regimen recommendations pending based on the hospital course. Monitoring - continue BG 4 times daily, ac & hs Diet - low fat/low carb diet Exercise - weight-bearing exercise 30 min/day, as tolerated Thank you for allowing us to provide care for your patient Denise Hogue APRN [facility] Endocrinology Diabetes Management Pager [phone] minutes of this 80 minute visit was spent with the patient in counseling on diabetes and treatment plan, reviewing all glucose and insulin data as well as relevant laboratory results with the patient, and coordination of care on the inpatient unit * Brief Op Note - Rich Butt MD - 09/11/2022 4:16 PM EST INTERVENTIONAL RADIOLOGY BRIEF PROCEDURE NOTE Patient Name: Mary Beth Holman : 1960 Case Date: 09/11/2022 Operators: Attending: Dr. Townsend All Staff: Dr. Butt Post-operative diagnosis/Indication: L ICA aneurysm Name of Procedure Performed: R NATURAL G[employer] TRADER access L ICA aneurysm stent embolization R angioseal closure Findings of the procedure: Successful stent embolization EBL: <10 mL Specimens: None Complications: No immediate Plan/Disposition: -ICU post op -MAP 70-90 x24hrs -HOB flat 4hrs -ASA/plavix FULL PROCEDURE NOTE TO FOLLOW IN IMAGE REPORT documented in this encounter Plan of Treatment Not on file documented as of this encounter Procedures Procedure Name Priority Date/Time Associated Diagnosis Comments POCT GLUCOSE Routine 09/13/2022 12:26 PM EST POCT GLUCOSE Routine 09/13/2022 10:01 AM EST HC P2Y12 ANTIPLATELET ASSAY (VERIFYNOW) STAT 09/13/2022 9:35 AM EST POCT GLUCOSE Routine 09/13/2022 7:48 AM EST HEMOGRAM Routine 09/13/2022 4:15 AM EST DIFFERENTIAL, AUTOMATED Routine 09/14/19 4:15 AM EST HC CBC,PLT & AUTO DIFF Routine 4:15 AM EST BASIC METABOLIC PANEL Routine 09/13/2022 4:15 AM EST POCT GLUCOSE Routine 09/13/2022 4:13 AM EST POCT GLUCOSE Routine 09/13/2022 1:48 AM EST POCT GLUCOSE Routine 2022 8:18 PM EST POCT GLUCOSE Routine 2022 4:11 PM EST POCT GLUCOSE Routine 2022 11:55 AM EST POCT GLUCOSE Routine 2022 7:35 AM EST POCT GLUCOSE Routine 2022 4:12 AM EST HEMOGRAM Routine 2022 2:35 AM EST DIFFERENTIAL, AUTOMATED Routine 09/13/19 2:35 AM EST BLUE TUBE HOLD Routine 2022 2:35 AM EST HC CBC,PLT & AUTO DIFF Routine 2:35 AM EST HC TRIGLYCERIDES Routine 2022 2:35 AM EST HC PHOSPHORUS, SERUM Routine 2022 2:35 AM EST HC MAGNESIUM, SERUM Routine 2022 2 :35 AM EST HEMOGLOBIN A1C Routine 2022 2:35 AM EST HC CREATINE PHOSPHOKINASE, SERUM Routine 2022 2:35 AM EST HEPATIC FUNCTION PANEL Routine 2:35 AM EST BASIC METABOLIC PANEL Routine 2022 2:35 AM EST POCT GLUCOSE Routine 2022 2:33 AM EST POCT GLUCOSE Routine 09/11/2022 8:28 PM EST SPONTANEOUS BREATHING TRIAL Routine 09/11/2022 6:20 PM EST POCT GLUCOSE Routine 09/11/2022 5:58 PM EST POCT GLUCOSE Routine 09/11/2022 2:23 PM EST HC P2Y12 ANTIPLATELET ASSAY (VERIFYNOW) STAT 09/11/2022 2:09 PM EST Perm Occlusion/Embolization, Percut, Master Ocean ([id number]) 09/11/2022 12:28 PM EST ANEURYSM OF LEFT INTERNAL CAROTID ARTERY TYPE AND SCREEN VALIDITY STAT 09/11/2022 12:19 PM EST ABORH RECHECK STATUS STAT 09/11/2022 12:19 PM EST HEMOGRAM STAT 09/11/2022 12:19 PM EST DIFFERENTIAL, AUTOMATED STAT 09/12/19 12:19 PM EST BLUE TUBE HOLD STAT 09/11/2022 12:19 PM EST ABO/RH TYPING STAT 09/11/2022 12:19 PM EST HC PARTIAL THROMBOPLASTIN TIME STAT 09/11/2022 12:19 PM EST HC PROTHROMBIN TIME STAT 09/11/2022 1 2:19 PM EST HC CBC,PLT & AUTO DIFF STAT 12:19 PM EST ANTIBODY SCREEN STAT 09/11/2022 12:19 PM EST TYPE AND SCREEN ([facility]/REYNALDO) STAT 09/11/2022 12:19 PM EST POCT GLUCOSE Routine 09/11/2022 11:50 AM EST documented in this encounter Results * POCT Glucose (09/13/2022 12:26 PM EST) Glucose, POC 174 65 - 199 mg/dL [facility] Comment: Supplemental ranges: <140 mg/dL before meals <180 mg/dL all other times of the day Blood 09/13/2022 12:2 6 PM EST 09/13/2022 12:26 PM EST Vera Townsend MD POINT OF CARE TEST ORDERABLES [facility] [place] [address] * POCT Glucose (09/13/2022 10:01 AM EST) Glucose, POC 127 65 - 199 mg/dL [facility] Comment: Supplemental ranges: <140 mg/dL before meals <180 mg/dL all other times of the day Blood 09/13/2022 10:0 1 AM EST 09/13/2022 10:01 AM EST Vera Townsend MD POINT OF CARE TEST ORDERABLES Performing Organization Address City/[facility]/ZIP Co de Phone Number [facility] [place] [address] * P2Y12 Antiplatelet (MC) (09/13/2022 9:35 AM EST) P2Y12 144 PRU [facility] Comment: Test results are reported in P2Y12 reaction units (PRU). PRU is a measure of the degree of inhibition of platelet aggregation in response to P2Y12 inhibitors such as clopidogrel (Plavix), prasugrel (Effient), ticagrelor (Brilinta), ticlopidine (Ticlid). The reference interval for healthy individuals who are not on a P2Y12 inhibitor is 180-376 PRU. PRU values <180 are evidence for a P2Y12 inhibitor effect while on the drug. This test is intended to be used as an indication of drug effect in patients on a P2Y12 inhibitor only in conjunction with a baseline, pre-treatment determination. Blood 09/13/2022 9:35 AM EST 09/13/2022 9:49 AM EST Narrative Resulting Agency Comment Spec In Lab Vera Townsend MD HEMATOLOGY ORDERABL ES Performing Organization Address City/[facility] [place] [address] * POCT Glucose (09/13/2022 7:48 AM EST) Glucose, POC 131 65 - 199 mg/dL [facility] Comment: Supplemental ranges: <140 mg/dL before meals <180 mg/dL all other times of the day Blood 09/13/2022 7:48 AM EST 09/13/2022 7:48 AM EST Vera Townsend MD POINT OF CARE TEST ORDERABLES Performing Organization Address [facility] [place] [address] * (ABNORMAL) Differential, Automated (09/13/2022 4:15 AM EST) Neutrophil % 66.9 % [facility] Neutrophil Absolute 6.33(H) 1.70 - 6.10 x10(3)/mc L [facility] Lymph % 25.3 % [facility] Lymphocytes Abs 2.4 0.9 - 3.2 x10(3)/mc L [facility] Monocyte % 5.3 % [facility] Monocyte Abs 0.5 0.3 - 0.9 x10(3)/mc L [facility] Eos % 1.6 % [facility] Eosinophils Abs 0.2 0.0 - 0.4 x10(3)/mc L [facility] Basophil % 0.5 % [facility] Baso Absolute 0.0 0.0 - 0.1 x10(3)/mc L [facility] Immature Gran % 0.40 % [facility] Comment: Immature granulocytes(IG's)percentage and absolute count will include metamyelocytes, myelocytes, and promyelocytes. Blood smears from CBCs yielding IG's will be scanned manually for concordance. If this scan disagrees with the automated IG or if promyelocytes are noted, a manual differential will be performed. Immature Gran Absolute 0.04 0.00 - 0.04 x10(3)/mc L [facility] Blood 09/13/2022 4:15 AM EST 09/13/2022 4:27 AM EST Narrative Resulting Agency Comment Spec In Lab Ingrid Lua MD HEMATOLOGY ORDERABLE S Performing Organization Address City/[facility]/ZIP Co de Phone Number [facility] [place] [address] * (ABNORMAL) Hemogram (09/13/2022 4:15 AM EST) White Blood Cell 9.5 4.0 - 9.5 x10(3)/mc L [facility] Red Blood Cell 4.85 4.00 - 5.21 x10(6)/mc L [facility] Hemoglobin 14.2 11.7 - 15.5 g/dL [facility] Hematocrit 44.7 35.7 - 45.8 % [facility] Mean Cell Volume 92.2 82.6 - 94.4 fL [facility] Mean Cell Hemoglobin 29.3 27.1 - 32.0 pg [facility] Mean Cell Hemoglobin Concentration 31.8 31.7 - 35.0 g/dL [facility] Platelet 126(L) 145 - 357 x10(3)/mc L [facility] RDW Standard Deviation 48.0(H) 37.0 - 46.0 fL [facility] RDW coefficient of variation 14.0 11.5 - 14.1 % [facility] Mean Platelet Volume 11.0 7.6 - 12.9 fL [facility] NRBC% auto 0.0 % [facility] NRBC Absolute 0.000 0.000 - 0.000 x10(3)/mc L [facility] Blood 09/13/2022 4:15 AM EST 09/13/2022 4:27 AM EST Narrative Resulting Agency Comment Spec In Lab Ingrid Lua MD HEMATOLOGY ORDERABLE S Performing Organization Address City/[facility]/ZIP Co de Phone Number [facility] [place] [address] * (ABNORMAL) Basic Metabolic Panel (non-fasting) (09/13/2022 4:15 AM EST) Glucose 134 65 - 199 mg/dL [facility] Comment:Diabetes: >=200 mg/d L plus symptoms Blood Urea Nitrogen 16 8 - 18 mg/dL [facility] Creatinine 0.68(L) 0.70 - 1.20 mg/dL [facility] Sodium 143 135 - 145 mmol/L [facility] Potassium 4.0 3.5 - 5.0 mmol/L [facility] Comment: Please note: ??Patients with WBC >100,000 may have falsely elevated Potassium levels. ??For accurate Potassium quantification in these patients send serum separator tube (gold top) for subsequent determinations. ??Contact the Clinical Chemistry Laboratory if there are any questions. Chloride 105 98 - 107 mmol/L [facility] Carbon Dioxide 32(H) 22 - 31 mmol/L [facility] Anion Gap 6 5 - 15 mmol/L [facility] Calcium 8.6 8.5 - 10.5 mg/dL [facility] Est Glomerular Filtration Rate 98 >=60 mL/min/1. 73 m?? [facility] Comment: This patient's estimated GFR [...] and symptoms in addition to eGFR. Blood 09/13/2022 4:15 AM EST 09/13/2022 4:27 AM EST Narrative Resulting Agency Comment Spec In Lab Vera Townsend MD CHEMISTRY ORDERABLE S [facility] [place] [address] * POCT Glucose (09/13/2022 4:13 AM EST) Glucose, POC 128 65 - 199 mg/dL [facility] Comment: Supplemental ranges: <140 mg/dL before meals <180 mg/dL all other times of the day Blood 09/13/2022 4:13 AM EST 09/13/2022 4:13 AM EST Vera Tonwsend MD POINT OF CARE TEST ORDERABLES [facility] [place] [address] * POCT Glucose (09/13/2022 1:48 AM EST) Glucose, POC 147 65 - 199 mg/dL [facility] Comment: Supplemental ranges: <140 mg/dL before meals <180 mg/dL all other times of the day Blood 09/13/2022 1:48 AM EST 09/13/2022 1:48 AM EST Vera Townsend MD POINT OF CARE TEST ORDERABLES Performing Organization Address City/[facility]/ZIP Co de Phone Number [facility] [place] [address] * POCT Glucose (2022 8:18 PM EST) Glucose, POC 163 65 - 199 mg/dL [facility] Comment: Supplemental ranges: <140 mg/dL before meals <180 mg/dL all other times of the day Blood 2022 8:18 PM EST 2022 8:18 PM EST Vera Townsend MD POINT OF CARE TEST ORDERABLES Performing Organization Address City/[facility]/ZIP Co de Phone Number [facility] [place] [address] * POCT Glucose (2022 4:11 PM EST) Glucose, POC 129 65 - 199 mg/dL [facility] Comment: Supplemental ranges: <140 mg/dL before meals <180 mg/dL all other times of the day Blood 2022 4:11 PM EST 2022 4:11 PM EST eVra Townsend MD POINT OF CARE TEST ORDERABLES Performing Organization Address City/[facility] Co de Phone Number [facility] [place] [address] * POCT Glucose (2022 11:55 AM EST) Glucose, POC 165 65 - 199 mg/dL [facility] Comment: Supplemental ranges: <140 mg/dL before meals <180 mg/dL all other times of the day Blood 2022 11:5 5 AM EST 2022 11:55 AM EST Vera Townsend MD POINT OF CARE TEST ORDERABLES Performing Organization Address [facility] Co de Phone Number [facility] [place] [address] * POCT Glucose (2022 7:35 AM EST) Glucose, POC 127 65 - 199 mg/dL [facility] Comment: Supplemental ranges: <140 mg/dL before meals <180 mg/dL all other times of the day Blood 2022 7:35 AM EST 2022 7:35 AM EST Vera Townsend MD POINT OF CARE TEST ORDERABLES Performing Organization Address [facility] Co de Phone Number [facility] [place] [address] * POCT Glucose (2022 4:12 AM EST) Glucose, POC 138 65 - 199 mg/dL [facility] Comment: Supplemental ranges: <140 mg/dL before meals <180 mg/dL all other times of the day Blood 2022 4:12 AM EST 2022 4:12 AM EST Vera Townsend MD POINT OF CARE TEST ORDERABLES [facility] [place] [address] * (ABNORMAL) Hemoglobin A1c (2022 2:35 AM EST) Hemoglobin A1c 8.0(H) 4.3 - 5.6 % [facility] Comment: Reference Range: 4.3 - [...] Mellitus, Diabetes Care 2013; 36: Suppl. 1, B07-97 Estimated Average Glucose 182 mg/dL [facility] Comment: eAG equivalents for HbA1c [...] into estimated average glucose values. ??Diabetes Care 2008:31(8):0641-6272. Blood Venous Draw / Unknown 2022 2:35 AM EST 2022 1:52 PM EST Narrative Resulting Agency Comment Spec In Lab Denise Hogue APRN CHEMISTRY ORDERABLE S Performing Organization Address City/[facility]/ZIP [place] [address] * Blue Tube HOLD (2022 2:35 AM EST) Blue Hold Sample in lab. [facility] Blood Venous Draw / Unknown 2022 2:35 AM EST 2022 2:48 AM EST Jessica DYER HEMATOLOGY ORDE TAMMIE Performing Organization Address [facility] [place] [address] * (ABNORMAL) Differential, Automated (2022 2:35 AM EST) Neutrophil % 81.0 % [facility] Neutrophil Absolute 5.91 1.70 - 6.10 x10(3)/mc L [facility] Lymph % 15.2 % [facility] Lymphocytes Abs 1.1 0.9 - 3.2 x10(3)/mc L [facility] Monocyte % 3.2 % [facility] Monocyte Abs 0.2(L) 0.3 - 0.9 x10(3)/mc L [facility] Eos % 0.0 % [facility] Eosinophils Abs 0.0 0.0 - 0.4 x10(3)/mc L [facility] Basophil % 0.3 % [facility] Baso Absolute 0.0 0.0 - 0.1 x10(3)/mc L [facility] Immature Gran % 0.30 % [facility] Comment: Immature granulocytes(IG's)percentage and absolute count will include metamyelocytes, myelocytes, and promyelocytes. Blood smears from CBCs yielding IG's will be scanned manually for concordance. If this scan disagrees with the automated IG or if promyelocytes are noted, a manual differential will be performed. Immature Gran Absolute 0.02 0.00 - 0.04 x10(3)/mc L [facility] Blood 2022 2:35 AM EST 2022 2:47 AM EST Narrative Resulting Agency Comment Spec In Lab Jessica DYER HEMATOLOGY RYAN CHO [facility] [place] [address] * (ABNORMAL) Hemogram (2022 2:35 AM EST) White Blood Cell 7.3 4.0 - 9.5 x10(3)/mc L [facility] Red Blood Cell 5.10 4.00 - 5.21 x10(6)/mc L [facility] Hemoglobin 14.9 11.7 - 15.5 g/dL [facility] Hematocrit 46.4(H) 35.7 - 45.8 % [facility] Mean Cell Volume 91.0 82.6 - 94.4 fL [facility] Mean Cell Hemoglobin 29.2 27.1 - 32.0 pg [facility] Mean Cell Hemoglobin Concentration 32.1 31.7 - 35.0 g/dL [facility] Platelet 150 145 - 357 x10(3)/mc L [facility] RDW Standard Deviation 47.0(H) 37.0 - 46.0 fL [facility] RDW coefficient of variation 13.9 11.5 - 14.1 % [facility] Mean Platelet Volume 11.4 7.6 - 12.9 fL [facility] NRBC% auto 0.0 % [facility] NRBC Absolute 0.000 0.000 - 0.000 x10(3)/mc L [facility] Blood 2022 2:35 AM EST 2022 2:47 AM EST Narrative Resulting Agency Comment Spec In Lab Jessica DYER HEMATOLOGY RYAN CHO [facility] [place] [address] * Phosphorus (2022 2:35 AM EST) Phosphorus 4.2 2.5 - 4.5 mg/dL [facility] Blood 2022 2:35 AM EST 2022 2:47 AM EST Narrative Resulting Agency Comment Spec In Lab Vera Townsend MD CHEMISTRY ORDERABLE S Performing Organization Address [facility] de Phone Number [facility] [place] [address] * Magnesium (2022 2:35 AM EST) Magnesium 0.81 0.69 - 1.07 mmol/L [facility] Blood 2022 2:35 AM EST 2022 2:47 AM EST Narrative Resulting Agency Comment Spec In Lab Vera Townsend MD CHEMISTRY ORDERABLE S Performing Organization Address [facility] de Phone Number [facility] [place] [address] * (ABNORMAL) Basic Metabolic Panel (non-fasting) (2022 2:35 AM EST) Glucose 183 65 - 199 mg/dL [facility] Comment:Diabetes: >=200 mg/d L plus symptoms Blood Urea Nitrogen 17 8 - 18 mg/dL [facility] Creatinine 0.59(L) 0.70 - 1.20 mg/dL [facility] Sodium 142 135 - 145 mmol/L [facility] Potassium 4.7 3.5 - 5.0 mmol/L [facility] Comment: Please note: ??Patients with WBC >100,000 may have falsely elevated Potassium levels. ??For accurate Potassium quantification in these patients send serum separator tube (gold top) for subsequent determinations. ??Contact the Clinical Chemistry Laboratory if there are any questions. Chloride 108(H) 98 - 107 mmol/L [facility] Carbon Dioxide 27 22 - 31 mmol/L [facility] Anion Gap 7 5 - 15 mmol/L [facility] Calcium 8.2(L) 8.5 - 10.5 mg/dL [facility] Est Glomerular Filtration Rate 101 >=60 mL/min/1. 73 m?? [facility] Comment: This patient's estimated GFR [...] and symptoms in addition to eGFR. Blood 2022 2:35 AM EST 2022 2:47 AM EST Narrative Resulting Agency Comment Spec In Lab Vera Townsend MD CHEMISTRY ORDERABLE S Performing Organization Address [facility] de Phone Number [facility] [place] [address] * (ABNORMAL) Hepatic Function Panel (2022 2:35 AM EST) Protein, Total 5.5(L) 6.1 - 8.0 g/dL [facility] Albumin 3.6 3.2 - 5.2 g/dL [facility] Aspartate Aminotransferase 16 0 - 30 unit/L [facility] Alanine Aminotransferase 11 0 - 30 unit/L [facility] Alkaline Phosphatase 71 35 - 105 unit/L [facility] Bilirubin, Total 0.2 0.2 - 1.3 mg/dL [facility] Bilirubin, Direct 0.1 0.0 - 0.3 mg/dL [facility] Blood 2022 2:35 AM EST 2022 2:47 AM EST Narrative Resulting Agency Comment Spec In Lab Vera Townsend MD CHEMISTRY ORDERABLE S Performing Organization Address [facility] Co de Phone Number [facility] [place] [address] * CK (2022 2:35 AM EST) Creatine Kinase 105 0 - 160 unit/L [facility] Blood 2022 2:35 AM EST 2022 2:47 AM EST Narrative Resulting Agency Comment Spec In Lab Vera Townsend MD CHEMISTRY ORDERABLE S Performing Organization Address City/[facility]/ZIP Co de Phone Number [facility] [place] [address] * Triglyceride (2022 2:35 AM EST) Triglyceride 159 mg/dL [facility] Comment: Average Risk/Lower Risk: <150 mg/dL Borderline High Risk: 150-199 mg/dL High Risk: 200-499 mg/dL Very High Risk: >zo=929 mg/dL Blood 2022 2:35 AM EST 2022 2:47 AM EST Narrative Resulting Agency Comment Spec In Lab Vera Townsend MD CHEMISTRY ORDERABLE S Performing Organization Address City/[facility]/ZIP Co de Phone Number [facility] [place] [address] * POCT Glucose (2022 2:33 AM EST) Glucose, POC 161 65 - 199 mg/dL [facility] Comment: Supplemental ranges: <140 mg/dL before meals <180 mg/dL all other times of the day Blood 2022 2:33 AM EST 2022 2:33 AM EST Vera Townsend MD POINT OF CARE TEST ORDERABLES Performing Organization Address City/[facility] Co de Phone Number [facility] [place] [address] * (ABNORMAL) POCT Glucose (09/11/2022 8:28 PM EST) Glucose, POC 206(H) 65 - 199 mg/dL [facility] Comment: Supplemental ranges: <140 mg/dL before meals <180 mg/dL all other times of the day Blood 09/11/2022 8:28 PM EST 09/11/2022 8:28 PM EST Vera Townsend MD POINT OF CARE TEST ORDERABLES Performing Organization Address City/[facility] Co de Phone Number [facility] [place] [address] * POCT Glucose (09/11/2022 5:58 PM EST) Glucose, POC 189 65 - 199 mg/dL [facility] Comment: Supplemental ranges: <140 mg/dL before meals <180 mg/dL all other times of the day Blood 09/11/2022 5:58 PM EST 09/11/2022 5:58 PM EST Vera Townsend MD POINT OF CARE TEST ORDERABLES Performing Organization Address [facility] Co de Phone Number [facility] [place] [address] * POCT Glucose (09/11/2022 2:23 PM EST) Glucose, POC 120 65 - 199 mg/dL [facility] Comment: Supplemental ranges: <140 mg/dL before meals <180 mg/dL all other times of the day Blood 09/11/2022 2:23 PM EST 09/11/2022 2:23 PM EST Vera Townsend MD POINT OF CARE TEST ORDERABLES Performing Organization Address [facility] Co de Phone Number [facility] [place] [address] * P2Y12 Antiplatelet ([facility]) (09/11/2022 2:09 PM EST) P2Y12 [address] [facility] Comment: Test results are reported in P2Y12 reaction units (PRU). PRU is a measure of the degree of inhibition of platelet aggregation in response to P2Y12 inhibitors such as clopidogrel (Plavix), prasugrel (Effient), ticagrelor (Brilinta), ticlopidine (Ticlid). The reference interval for healthy individuals who are not on a P2Y12 inhibitor is 180-376 PRU. PRU values <180 are evidence for a P2Y12 inhibitor effect while on the drug. This test is intended to be used as an indication of drug effect in patients on a P2Y12 inhibitor only in conjunction with a baseline, pre-treatment determination. Blood 09/11/2022 2:09 PM EST 09/11/2022 2:18 PM EST Narrative Resulting Agency Comment Spec In Lab Vera Townsend MD HEMATOLOGY ORDERABL ES Performing Organization Address City/[facility]/ZIP Co de Phone Number [facility] [place] [address] * Type and Screen Validity (09/11/2022 12:19 PM EST) T&S only valid at [facility] Comment:This Type and Screen result is only valid at the [facility] Blood 09/11/2022 12:1 9 PM EST 09/11/2022 12:36 PM EST Narrative Resulting Agency Comment Spec In Lab Rich Butt MD BLOOD BANK LAB ORDER PRAFUL Performing Organization Address City/[facility] Co de Phone Number [facility] [place] [address] * ABORH Recheck Status (09/11/2022 12:19 PM EST) ABORH Type Recheck Completed [facility] Blood 09/11/2022 12:1 9 PM EST 09/11/2022 12:36 PM EST Narrative Resulting Agency Comment Spec In Lab Rich Butt MD BLOOD BANK LAB ORDER PRAFUL Performing Organization Address City/[facility] Co de Phone Number [facility] [place] [address] * Blue Tube HOLD (09/11/2022 12:19 PM EST) Blue Hold Sample in lab. [facility] Blood Venous Draw / Unknown 09/11/2022 12:19 PM EST 09/11/2022 12:44 PM EST Rich Butt MD HEMATOLOGY ORDERABLE S [facility] [place] [address] * Differential, Automated (09/11/2022 12:19 PM EST) Neutrophil % 58.8 % [facility] Neutrophil Absolute 4.42 1.70 - 6.10 x10(3)/[facility] Lymph % 29.8 % [facility] Lymphocytes Abs 2.2 0.9 - 3.2 x10(3)/[facility] Monocyte % 7.0 % [facility] Monocyte Abs 0.5 0.3 - 0.9 x10(3)/[facility] Eos % 3.2 % [facility] Eosinophils Abs 0.2 0.0 - 0.4 x10(3)/[facility] Basophil % 0.9 % [facility] Baso Absolute 0.1 0.0 - 0.1 x10(3)/[facility] Immature Gran % 0.30 % [facility] Comment: Immature granulocytes(IG's)percentage and absolute count will include metamyelocytes, myelocytes, and promyelocytes. Blood smears from CBCs yielding IG's will be scanned manually for concordance. If this scan disagrees with the automated IG or if promyelocytes are noted, a manual differential will be performed. Immature Gran Absolute 0.02 0.00 - 0.04 x10(3)/[facility] Blood 09/11/2022 12:1 9 PM EST 09/11/2022 12:43 PM EST Narrative Resulting Agency Comment Spec In Lab Rich Butt MD HEMATOLOGY ORDERABLE S Performing Organization Address City/[facility]/ZIP [place] [address] * (ABNORMAL) Hemogram (09/11/2022 12:19 PM EST) White Blood Cell 7.5 4.0 - 9.5 x10(3)/ L [facility] Red Blood Cell 5.92(H) 4.00 - 5.21 x10(6)/mc L [facility] Hemoglobin 17.6(H) 11.7 - 15.5 g/dL [facility] Hematocrit 54.0(H) 35.7 - 45.8 % [facility] Mean Cell Volume 91.2 82.6 - 94.4 fL [facility] Mean Cell Hemoglobin 29.7 27.1 - 32.0 pg [facility] Mean Cell Hemoglobin Concentration 32.6 31.7 - 35.0 g/dL [facility] Platelet 204 145 - 357 x10(3)/mc L [facility] RDW Standard Deviation 48.4(H) 37.0 - 46.0 fL [facility] RDW coefficient of variation 14.4(H) 11.5 - 14.1 % [facility] Mean Platelet Volume 11.3 7.6 - 12.9 fL [facility] NRBC% auto 0.0 % [facility] NRBC Absolute 0.000 0.000 - 0.000 x10(3)/mc L [facility] Blood 09/11/2022 12:1 9 PM EST 09/11/2022 12:43 PM EST Narrative Resulting Agency Comment Spec In Lab Rich Butt MD HEMATOLOGY ORDERABLE S Performing Organization Address City/[facility]/ZIP Co de Phone Number [facility] [place] [address] * Antibody screen (09/11/2022 12:19 PM EST) Ab Screen Interp Negative [facility] Expires at [id number] on: 09/14/2022 [facility] Blood 09/11/2022 12:1 9 PM EST 09/11/2022 12:36 PM EST Narrative Resulting Agency Comment Spec In Lab Rich Butt MD BLOOD BANK LAB ORDER PRAFUL Performing Organization Address City/[facility]/ZIP Co de Phone Number [facility] [place] [address] * ABO/Rh Typing (09/11/2022 12:19 PM EST) ABORH Type O Pos [facility] Blood 09/11/2022 12:1 9 PM EST 09/11/2022 12:36 PM EST Narrative Resulting Agency Comment Spec In Lab Rich Butt MD BLOOD BANK LAB ORDER PRAFUL Performing Organization Address City/[facility]/ZIP Co de Phone Number [facility] [place] [address] * (ABNORMAL) APTT (09/11/2022 12:19 PM EST) Partial Thromboplastin Time 24(L) 25 - 37 sec [facility] Comment: The PTT is NOT appropriate for heparin monitoring. Use the Anti-Xa level for heparin monitoring (HEP UFH) or LMWH monitoring (HEP LMW). A PTT less than 37 seconds generally indicates adequate hemostasis. Blood 09/11/2022 12:1 9 PM EST 09/11/2022 12:43 PM EST Narrative Resulting Agency Comment Spec In Lab Vera Townsend MD HEMATOLOGY ORDERABL ES Performing Organization Address [facility] Co de Phone Number [facility] [place] [address] * Prothrombin Time (09/11/2022 12:19 PM EST) Pathologist [facility] Prothrombin Time 11.0 9.4 - 12.5 sec [facility] International Normalization Ratio 1.0 [facility] Comment: An INR <2.0 indicates [...] be appropriate depending on clinical circumstances. Blood 09/11/2022 12:1 9 PM EST 09/11/2022 12:43 PM EST Narrative Resulting Agency Comment Spec In Lab Vera Townsend MD HEMATOLOGY ORDERABL ES Performing Organization Address City/[facility]/ZIP Co de Phone Number [facility] [place] [address] * POCT Glucose (09/11/2022 11:50 AM EST) Glucose, POC 160 65 - 199 mg/dL [facility] Comment: Supplemental ranges: <140 mg/dL before meals <180 mg/dL all other times of the day Blood 09/11/2022 11:5 0 AM EST 09/11/2022 11:50 AM EST Vera Townsend MD POINT OF CARE TEST ORDERABLES [facility] [place] [address] documented in this encounter Visit Diagnoses Not on filedocumented in this encounter Administered Medications Inactive Administered Medications - up to 3 most recent administrations Medication Order MAR Action Action Date Dose Rate Site acetaminophen (Tylenol) (32.02 mg/mL) oral liquid 1,000 mg 1,000 mg, Oral, EVERY 6 HOURS PRN, Starting on Sun09/11/22 at 1814, Until Sun09/13/22 at 1807, Pain, mild pain (1-3), Maximum dose of acetaminophen is 4,000 mg from all sources in 24 hours. When ordered for pain, acetaminophen should be given even when other ordered pain medications are indicated. , Routine acetaminophen (Tylenol) suppository 975 mg 975 mg, Rectal, EVERY 6 HOURS PRN, Starting on Sun09/11/22 at 1814, Until Sun09/13/22 at 1807, Pain, mild pain (1-3), Maximum dose of acetaminophen is 4,000 mg from all sources in 24 hours. When ordered for pain, acetaminophen should be given even when other ordered pain medications are indicated. , Routine acetaminophen (Tylenol) tablet 1,000 mg 1,000 mg, Oral, EVERY 6 HOURS PRN, Starting on Sun09/11/22 at 1814, Until Sun09/13/22 at 1807, Pain, mild pain (1-3), Maximum dose of acetaminophen is 4,000 mg from all sources in 24 hours. When ordered for pain, acetaminophen should be given even when other ordered pain medications are indicated. , Routine Given 09/13/2022 1:50 PM EST 1,000 mg Given 09/13/2022 7:43 AM EST 1,000 mg Given 09/13/2022 1:50 AM EST 1,000 mg aspirin chewable tablet 81 mg 81 mg, Oral, DAILY, First dose on Sun09/12/22 at 1600, Until Discontinued, Routine Given 09/13/2022 9:54 AM EST 81 mg Given 2022 4:24 PM EST 81 mg clopidogreL (Plavix) tablet 75 mg 75 mg, Oral, DAILY, First dose on Sun09/12/22 at 0900, Until Discontinued, Routine Given 09/13/2022 9:54 AM EST 75 mg Given 2022 8:51 AM EST 75 mg dextrose 10% infusion 250 mL, at 1,000 mL/hr, Intravenous, EVERY 30 MIN PRN, Starting on Sun09/11/22 at 1814, Until Sun09/13/22 at 1807, For BG 50-70 mg/dL: Oral treatment preferred: If able to drink, give 120 mL Juice or Regular (not diet) soda OR If NPO, give 15 gram glucose 40% oral gel massaged into buccal mucosa OR if unconscious or uncooperative, give 25 gram (250 mL) Dextrose 10% IV over 15 minutes per protocol OR, if no IV access, 1 mg Glucagon IM. For BG less than 50 mg/dL: Oral treatment preferred: If able to drink, give 240 mL Juice or Regular (not diet) soda OR If NPO, give 30 gram glucose 40% oral gel massaged in buccal mucosa OR if unconscious or uncooperative, give 25 gram (250 mL) Dextrose 10% IV over 15 minutes per protocol OR, if no IV access, 1 mg Glucagon IM. Recheck BG in 30 minutes. May repeat juice/soda, gel, dextrose or glucagon once per episode. For persistent hypoglycemia, consider longer-acting treatment for the duration of the active insulin. empagliflozin (Jardiance) tablet 25 mg 25 mg, Oral, DAILY, First dose on Sun09/12/22 at 0900, Until Discontinued, This medication should not be given with reduced PO intake/fluid loss, severe illness, or in patients with ketonemia or ketouria. , Routine, This medication should be held for 3 days prior to surgery. Is there a planned procedure within 3 days? No, Indication for empagliflozin: diabetes, Is this a continuation of therapy from home? Yes Given 09/13/2022 9:56 AM EST 25 mg Given 2022 8:52 AM EST 25 mg glucagon (Glucagen) (1 mg/mL) injection solution 1 mg 1 mg, Intramuscular, EVERY 30 MIN PRN, Starting on Sun09/11/22 at 1814, Until Sun09/13/22 at 1807, Low blood sugar, For BG 50-70 mg/dL: Oral treatment preferred: If able to drink, give 120 mL Juice or Regular (not diet) soda OR If NPO, give 15 gram glucose 40% oral gel massaged into buccal mucosa OR if unconscious or uncooperative, give 25 gram (250 mL) Dextrose 10% IV over 15 minutes per protocol OR, if no IV access, 1 mg Glucagon IM. For BG less than 50 mg/dL: Oral treatment preferred: If able to drink, give 240 mL Juice or Regular (not diet) soda OR If NPO, give 30 gram glucose 40% oral gel massaged in buccal mucosa OR if unconscious or uncooperative, give 25 gram (250 mL) Dextrose 10% IV over 15 minutes per protocol OR, if no IV access, 1 mg Glucagon IM. Recheck BG in 30 minutes. May repeat juice/soda, gel, dextrose or glucagon once per episode. For persistent hypoglycemia, consider longer-acting treatment for the duration of the active insulin., Routine glucose (Glutose) 40% oral geL 15-30 g of glucose, Buccal, EVERY 30 MIN PRN, Starting on Sun09/11/22 at 1814, Until Sun09/13/22 at 1807, Low blood sugar, For BG 50-70 mg/dL: Oral treatment preferred: If able to drink, give 120 mL Juice or Regular (not diet) soda OR If NPO, give 15 gram glucose 40% oral gel massaged into buccal mucosa OR if unconscious or uncooperative, give 25 gram (250 mL) Dextrose 10% IV over 15 minutes per protocol OR, if no IV access, 1 mg Glucagon IM. For BG less than 50 mg/dL: Oral treatment preferred: If able to drink, give 240 mL Juice or Regular (not diet) soda OR If NPO, give 30 gram glucose 40% oral gel massaged in buccal mucosa OR if unconscious or uncooperative, give 25 gram (250 mL) Dextrose 10% IV over 15 minutes per protocol OR, if no IV access, 1 mg Glucagon IM. Recheck BG in 30 minutes. May repeat juice/soda, gel, dextrose or glucagon once per episode. For persistent hypoglycemia, consider longer-acting treatment for the duration of the active insulin. 1 tube of Glutose-15 contains 15 grams of glucose (net weight of tube = 37.5 grams.), Routine insulin glargine-ygfn (Semglee) (100 unit/mL) subcutaneous injection vial 10 Units 10 Units, Subcutaneous, 2 TIMES DAILY, First dose on Sun09/12/22 at 2100, Until Discontinued, Routine Given 09/13/2022 10:02 AM EST 10 Units Given 2022 8:20 PM EST 10 Units insulin lispro (HumaLOG;Admelog) (100 unit/mL) subcutaneous injection vial 0-6 Units 0-6 Units, Subcutaneous, 3 TIMES DAILY WITH MEALS, First dose on Sun09/12/22 at 1700, Until Discontinued, MEAL ASSOCIATED Give 1 unit every 15g carb Hold if not eating or if BG less than 70 mg/dL., Routine Given 09/13/2022 1:40 PM EST 3 Units Given 09/13/2022 10:04 AM EST 3 Units Given 2022 5:50 PM EST 3 Units insulin lispro (HumaLOG;Admelog) (100 unit/mL) subcutaneous injection vial 1-6 Units 1-6 Units, Subcutaneous, EVERY 4 HOURS SCHEDULED, First dose on Sun09/11/22 at 2000, Until Discontinued, CORRECTION BOLUS [1-6 Units] Moderate Sliding Scale (BG in mg/dL): Correction factor 20 (1 unit of insulin is expected to drop the glucose 20 mg/dL) BG 140 - 160 Give 1 unit BG 161 - 180 Give 2 units BG 181 - 200 Give 3 units BG 201 - 220 Give 4 units BG 221 - 240 Give 5 units BG greater than 240, give 6 units and recheck BG in 2 hours. - If recheck BG is LESS than 240, give no insulin and resume schedule. - If recheck BG is GREATER than 240, give 6 units and repeat BG in 2 hours (no more than 3 times) & call for new insulin orders. DO NOT hold if NPO, unless specifically directed to do so by written order. Per Blood Glucose Monitoring Policy, re-check a BG of > 240 mg/dL in 2 hours., Routine Given 09/13/2022 12:27 PM EST 2 Units Given 09/13/2022 1:51 AM EST 1 Units Given 2022 8:20 PM EST 2 Units lactated ringers infusion 1,000 mL, at 100 mL/hr, Intravenous, CONTINUOUS, Starting on Sun09/11/22 at 1230, Until Sun09/11/22 at 1753, Day of Surgery (Day of Procedure) New Bag 09/11/2022 12:28 PM EST 1,000 mLs 100 mL/hr meclizine (Antivert) tablet 50 mg 50 mg, Oral, 2 Times Daily, First dose on Sun09/11/22 at 2100, Until Discontinued, Routine Given 09/13/2022 9:56 AM EST 50 mg Given 2022 8:20 PM EST 50 mg Given 2022 8:52 AM EST 50 mg pantoprazole EC (Protonix) tablet 40 mg 40 mg, Oral, DAILY, First dose on Sun09/11/22 at 1915, Until Discontinued, DO NOT CRUSH OR OPEN Given 09/13/2022 9:54 AM EST 40 mg Given 2022 8:51 AM EST 40 mg Given 09/11/2022 11:17 PM EST 40 mg PARoxetine (Paxil) tablet 20 mg 20 mg, Oral, DAILY, First dose on Sun09/12/22 at 0900, Until Discontinued, DO NOT SPLIT, CRUSH OR OPEN, Routine Given 09/13/2022 9:52 AM EST 20 mg Given 2022 8:51 AM EST 20 mg pregabalin (Lyrica) capsule 150 mg 150 mg, Oral, 2 TIMES DAILY, First dose on Sun09/11/22 at 2100, Until Discontinued, Routine Given 09/13/2022 9:54 AM EST 150 mg Given 2022 8:26 PM EST 150 mg Given 2022 8:51 AM EST 150 mg sodium chloride 0.9 % (flush) (BD PosiFlush Normal Saline 0.9) flush 5 mL 5 mL, Intravenous, 2 TIMES DAILY, First dose on Sun09/11/22 at 2100, Until Discontinued, Routine Given 2022 1:02 AM EST 5 mLs sodium chloride 0.9 % (flush) (BD PosiFlush Normal Saline 0.9) flush 5 mL 5 mL, Intravenous, 2 TIMES DAILY, First dose on Sun09/11/22 at 2100, Until Discontinued, Recovery (Recovery-Hospital Unit), Routine Given 2022 1:02 AM EST 5 mLs sodium chloride 0.9% 500 mL IV bolus Intravenous, ONCE, 1 dose, On Sun09/12/22 at 0130 New Bag 2022 1:15 AM EST 500 mL/hr sodium chloride 0.9% 500 mL IV bolus Intravenous, ONCE, 1 dose, On Sun09/12/22 at 0615 Continued Bag 2022 6:12 AM EST sodium chloride 0.9% infusion 75 mL/hr, Intravenous, CONTINUOUS, Starting on Sun09/12/22 at 0130, Until Sun09/12/22 at 0752 New Bag 2022 7:30 AM EST 75 mL/hr 75 mL/hr New Bag 2022 2:13 AM EST 75 mL/hr 75 mL/hr documented in this encounter Active and Recently Administered Medications Times are shown in EST. Scheduled Medication Order 09/11/2022 2022 09/13/2022 aspirin chewable tablet 81 mg 81 mg, Oral, DAILY, First dose on Sun09/12/22 at 1600, Until Discontinued, Routine 1624 (Given - Provider: Elizabeth Herman RN) 0954 (Given - Provider: Alyssa Bob, SHAKIRA) clopidogreL (Plavix) tablet 75 mg 75 mg, Oral, DAILY, First dose on Sun09/12/22 at 0900, Until Discontinued, Routine 0851 (Given - Provider: Elizabeth Herman RN) 0954 (Given - Provider: Alyssa Bob, SHAKIRA) empagliflozin (Jardiance) tablet 25 mg 25 mg, Oral, DAILY, First dose on Sun09/12/22 at 0900, Until Discontinued, This medication should not be given with reduced PO intake/fluid loss, severe illness, or in patients with ketonemia or ketouria. , Routine, This medication should be held for 3 days prior to surgery. Is there a planned procedure within 3 days? No, Indication for empagliflozin: diabetes, Is this a continuation of therapy from home? Yes 0852 (Given - Provider: Elizabeth Herman, SHAKIRA) 0956 (Given - Provider: Alyssa Bob, SHAKIRA) insulin glargine-ygfn (Semglee) (100 unit/mL) subcutaneous injection vial 10 Units 10 Units, Subcutaneous, 2 TIMES DAILY, First dose on Sun09/12/22 at 2100, Until Discontinued, Routine 2020 (Given - Provider: Rodo Guillen RN) 1002 (Given - Provider: Alyssa Bob RN - Comment: BS 127 at 1001) insulin lispro (HumaLOG;Admelog) (100 unit/mL) subcutaneous injection vial 0-6 Units 0-6 Units, Subcutaneous, 3 TIMES DAILY WITH MEALS, First dose on Sun09/12/22 at 1700, Until Discontinued, MEAL ASS[employer]IATED Give 1 unit every 15g carb Hold if not eating or if BG less than 70 mg/dL., Routine 1750 (Given - Provider: Rhea Guevara RN) 1004 (Given - Provider: Alyssa Bob RN)1340 (Given - Provider: Alyssa Bob RN - Comment: pt just finished with meal) insulin lispro (HumaLOG;Admelog) (100 unit/mL) subcutaneous injection vial 1-6 Units(Linked Group 1) 1-6 Units, Subcutaneous, EVERY 4 HOURS SCHEDULED, First dose on Sun09/11/22 at 2000, Until Discontinued, CORRECTION BOLUS [1-6 Units] Moderate Sliding Scale (BG in mg/dL): Correction factor 20 (1 unit of insulin is expected to drop the glucose 20 mg/dL) BG 140 - 160 Give 1 unit BG 161 - 180 Give 2 units BG 181 - 200 Give 3 units BG 201 - 220 Give 4 units BG 221 - 240 Give 5 units BG greater than 240, give 6 units and recheck BG in 2 hours. - If recheck BG is LESS than 240, give no insulin and resume schedule. - If recheck BG is GREATER than 240, give 6 units and repeat BG in 2 hours (no more than 3 times) & call for new insulin orders. DO NOT hold if NPO, unless specifically directed to do so by written order. Per Blood Glucose Monitoring Policy, re-check a BG of > 240 mg/dL in 2 hours., Routine 1999 (Not Given - Provider: Radha Haley RN - Reason: NPO) 0000 (Not Given - Provider: Radha Haley RN - Reason: NPO)0414 (Not Given - Provider: Gustavo Laurent RN - Reason: Order parameters not met - Comment: bg 138)0735 (Not Given - Provider: Elizabeth Herman RN - Reason: Order parameters not met - Comment: BG 127)1235 (Given - Provider: Elizabeth Herman RN)1622 (Not Given - Provider: Elizabeth Herman RN - Reason: Order parameters not met)2019 (Given - Provider: Rodo Guillen RN) 0151 (Given - Provider: Michele Palma RN)0400 (Not Given - Provider: Rodo Guillen RN - Reason: Order parameters not met)0800 (Not Given - Provider: Alyssa Bob RN - Reason: Order parameters not met)1227 (Given - Provider: Alyssa Bob RN)1600 (Due) meclizine (Antivert) tablet 50 mg 50 mg, Oral, 2 Times Daily, First dose on Sun09/11/22 at 2100, Until Discontinued, Routine 2316 (Given - Provider: Radha Haley RN) 0852 (Given - Provider: Elizabeth Herman RN)2019 (Given - Provider: Rodo Guillen RN) 0956 (Given - Provider: Alyssa Bob RN) pantoprazole EC (Protonix) tablet 40 mg 40 mg, Oral, DAILY, First dose on Sun09/11/22 at 1915, Until Discontinued, DO NOT CRUSH OR OPEN 2317 (Given - Provider: Radha Haley RN) 0851 (Given - Provider: Elizabeth Herman RN) 0954 (Given - Provider: Alyssa Bob RN) PARoxetine (Paxil) tablet 20 mg 20 mg, Oral, DAILY, First dose on Sun09/12/22 at 0900, Until Discontinued, DO NOT SPLIT, CRUSH OR OPEN, Routine 0851 (Given - Provider: Elizabeth Herman, SHAKIRA) 0952 (Given - Provider: Alyssa Bob RN) pregabalin (Lyrica) capsule 150 mg 150 mg, Oral, 2 TIMES DAILY, First dose on Sun09/11/22 at 2100, Until Discontinued, Routine 2317 (Given - Provider: Radha Haley RN) 0851 (Given - Provider: Elizabeth Herman RN)2025 (Given - Provider: Rodo Guillen RN) 0954 (Given - Provider: Alyssa Bob RN) sodium chloride 0.9 % (flush) (BD PosiFlush Normal Saline 0.9) flush 5 mL (CANCELED) 5 mL, Intravenous, 2 TIMES DAILY, First dose on Sun09/11/22 at 2100, Until Discontinued, Routine 0102 (Given - Provider: Radha Haley RN) sodium chloride 0.9 % (flush) (BD PosiFlush Normal Saline 0.9) flush 5 mL (CANCELED) 5 mL, Intravenous, 2 TIMES DAILY, First dose on Sun09/11/22 at 2100, Until Discontinued, Recovery (Recovery-Hospital Unit), Routine 0102 (Given - Provider: Radha Haley RN) sodium chloride 0.9% 500 mL IV bolus (COMPLETED) Intravenous, ONCE, 1 dose, On Sun09/12/22 at 0130 0115 (New Bag - Provider: Radha Haley RN) sodium chloride 0.9% 500 mL IV bolus (COMPLETED) Intravenous, ONCE, 1 dose, On Sun09/12/22 at 0615 0612 (Continued Bag - Provider: Radha Haley RN) Continuous Medication Order 09/11/2022 2022 09/13/2022 lactated ringers infusion (CANCELED) 1,000 mL, at 100 mL/hr, Intravenous, CONTINUOUS, Starting on Sun09/11/22 at 1230, Until Sun09/11/22 at 1753, Day of Surgery (Day of Procedure) 1228 (New Bag - Provider: Katy Rodrigues RN) sodium chloride 0.9% infusion (CANCELED) 75 mL/hr, Intravenous, CONTINUOUS, Starting on Sun09/12/22 at 0130, Until Sun09/12/22 at 0752 0213 (New Bag - Provider: Radha Haley RN)0730 (New Bag - Provider: Elizabeth Herman RN)0850 (Stopped - Provider: Elizabeth Herman RN) PRN Medication Order 09/11/2022 2022 09/13/2022 acetaminophen (Tylenol) (32.02 mg/mL) oral liquid 1,000 mg(Linked Group 2) 1,000 mg, Oral, EVERY 6 HOURS PRN, Starting on Sun09/11/22 at 1814, Until Sun09/13/22 at 1807, Pain, mild pain (1-3), Maximum dose of acetaminophen is 4,000 mg from all sources in 24 hours. When ordered for pain, acetaminophen should be given even when other ordered pain medications are indicated. , Routine 1234 (See Alternative - Provider: Elizabeth Herman RN) 0150 (See Alternative - Provider: Michele Palma RN)0743 (See Alternative - Provider: Alyssa Bob RN)1350 (See Alternative - Provider: Alyssa Bob RN) acetaminophen (Tylenol) suppository 975 mg(Linked Group 2) 975 mg, Rectal, EVERY 6 HOURS PRN, Starting on Sun09/11/22 at 1814, Until Sun09/13/22 at 1807, Pain, mild pain (1-3), Maximum dose of acetaminophen is 4,000 mg from all sources in 24 hours. When ordered for pain, acetaminophen should be given even when other ordered pain medications are indicated. , Routine 1234 (See Alternative - Provider: Elizabeth Herman RN) 0150 (See Alternative - Provider: Michele Palma RN)0743 (See Alternative - Provider: Alyssa Bob RN)1350 (See Alternative - Provider: Alyssa Bob RN) acetaminophen (Tylenol) tablet 1,000 mg(Linked Group 2) 1,000 mg, Oral, EVERY 6 HOURS PRN, Starting on Sun09/11/22 at 1814, Until Sun09/13/22 at 1807, Pain, mild pain (1-3), Maximum dose of acetaminophen is 4,000 mg from all sources in 24 hours. When ordered for pain, acetaminophen should be given even when other ordered pain medications are indicated. , Routine 1234 (Given - Provider: Elizabeth Herman RN) 0150 (Given - Provider: Michele Palma, SHAKIRA)0743 (Given - Provider: Alyssa Bob, RN)1350 (Given - Provider: Alyssa Bob, SHAKIRA) bisacodyl EC (Dulcolax) tablet 10 mg 10 mg, Oral, 2 TIMES DAILY PRN, Starting on Sun09/11/22 at 1814, Until Sun09/13/22 at 1807, Constipation, DO NOT CRUSH OR OPEN Administer if no bowel movement within 48 hours to achieve: (1) One bowel movement at least every 48 hours, AND (2) without straining. If multiple PRN bowel medications ordered, start with polyethylene glycoL, then lactulose, then oral bisacodyL, then bisacodyL suppository, then magnesium citrate, then tap water enema. Multiple medications may be given concomitantly for constipation., Routine dextrose 10% infusion(Linked Group 3) 250 mL, at 1,000 mL/hr, Intravenous, EVERY 30 MIN PRN, Starting on Sun09/11/22 at 1814, Until Sun09/13/22 at 1807, For BG 50-70 mg/dL: Oral treatment preferred: If able to drink, give 120 mL Juice or Regular (not diet) soda OR If NPO, give 15 gram glucose 40% oral gel massaged into buccal mucosa OR if unconscious or uncooperative, give 25 gram (250 mL) Dextrose 10% IV over 15 minutes per protocol OR, if no IV access, 1 mg Glucagon IM. For BG less than 50 mg/dL: Oral treatment preferred: If able to drink, give 240 mL Juice or Regular (not diet) soda OR If NPO, give 30 gram glucose 40% oral gel massaged in buccal mucosa OR if unconscious or uncooperative, give 25 gram (250 mL) Dextrose 10% IV over 15 minutes per protocol OR, if no IV access, 1 mg Glucagon IM. Recheck BG in 30 minutes. May repeat juice/soda, gel, dextrose or glucagon once per episode. For persistent hypoglycemia, consider longer-acting treatment for the duration of the active insulin. glucagon (Glucagen) (1 mg/mL) injection solution 1 mg(Linked Group 3) 1 mg, Intramuscular, EVERY 30 MIN PRN, Starting on Sun09/11/22 at 1814, Until Sun09/13/22 at 1807, Low blood sugar, For BG 50-70 mg/dL: Oral treatment preferred: If able to drink, give 120 mL Juice or Regular (not diet) soda OR If NPO, give 15 gram glucose 40% oral gel massaged into buccal mucosa OR if unconscious or uncooperative, give 25 gram (250 mL) Dextrose 10% IV over 15 minutes per protocol OR, if no IV access, 1 mg Glucagon IM. For BG less than 50 mg/dL: Oral treatment preferred: If able to drink, give 240 mL Juice or Regular (not diet) soda OR If NPO, give 30 gram glucose 40% oral gel massaged in buccal mucosa OR if unconscious or uncooperative, give 25 gram (250 mL) Dextrose 10% IV over 15 minutes per protocol OR, if no IV access, 1 mg Glucagon IM. Recheck BG in 30 minutes. May repeat juice/soda, gel, dextrose or glucagon once per episode. For persistent hypoglycemia, consider longer-acting treatment for the duration of the active insulin., Routine glucose (Glutose) 40% oral geL(Linked Group 3) 15-30 g of glucose, Buccal, EVERY 30 MIN PRN, Starting on Sun09/11/22 at 1814, Until Sun09/13/22 at 1807, Low blood sugar, For BG 50-70 mg/dL: Oral treatment preferred: If able to drink, give 120 mL Juice or Regular (not diet) soda OR If NPO, give 15 gram glucose 40% oral gel massaged into buccal mucosa OR if unconscious or uncooperative, give 25 gram (250 mL) Dextrose 10% IV over 15 minutes per protocol OR, if no IV access, 1 mg Glucagon IM. For BG less than 50 mg/dL: Oral treatment preferred: If able to drink, give 240 mL Juice or Regular (not diet) soda OR If NPO, give 30 gram glucose 40% oral gel massaged in buccal mucosa OR if unconscious or uncooperative, give 25 gram (250 mL) Dextrose 10% IV over 15 minutes per protocol OR, if no IV access, 1 mg Glucagon IM. Recheck BG in 30 minutes. May repeat juice/soda, gel, dextrose or glucagon once per episode. For persistent hypoglycemia, consider longer-acting treatment for the duration of the active insulin. 1 tube of Glutose-15 contains 15 grams of glucose (net weight of tube = 37.5 grams.), Routine ipratropium-albuteroL (Duoneb) 0.5 mg-3 mg(2.5 mg base)/3 mL nebulizer solution 3 mL 3 mL, Nebulization, EVERY 4 HOURS PRN, Starting on Sun09/11/22 at 1814, Until Sun09/13/22 at 1807, Wheezing, Routine polyethylene glycoL (Miralax) packet 17 g 17 g, Oral, DAILY PRN, Starting on Sun09/11/22 at 1814, Until Sun09/13/22 at 1807, Constipation, Administer if no bowel movement within 48 hours to achieve: (1) One bowel movement at least every 48 hours, AND (2) without straining. If multiple PRN bowel medications ordered, start with polyethylene glycoL, then lactulose, then oral bisacodyL, then bisacodyL suppository, then magnesium citrate, then tap water enema. Multiple medications may be given concomitantly for constipation., Routine Linked Groups Order Group 1: POCT Fingerstick Glucose (CANCELED) Routine, EVERY 4 HOURS, First occurrence on Sun09/11/22 at 1815, Until Specified, Consider choosing EVERY 4 HOURS as frequency for: - Type 1 Diabetes - At least 24 hours after coming off an insulin drip - At least 24 hours after admission for DKA - Hypoglycemia unawareness - Patients who are otherwise unstable Select the same frequency for the correction bolus insulin order And insulin lispro (HumaLOG;Admelog) (100 unit/mL) subcutaneous injection vial 1-6 UnitsJump to med 1-6 Units, Subcutaneous, EVERY 4 HOURS SCHEDULED, First dose on Sun09/11/22 at 2000, Until Discontinued, CORRECTION BOLUS [1-6 Units] Moderate Sliding Scale (BG in mg/dL): Correction factor 20 (1 unit of insulin is expected to drop the glucose 20 mg/dL) BG 140 - 160 Give 1 unit BG 161 - 180 Give 2 units BG 181 - 200 Give 3 units BG 201 - 220 Give 4 units BG 221 - 240 Give 5 units BG greater than 240, give 6 units and recheck BG in 2 hours. - If recheck BG is LESS than 240, give no insulin and resume schedule. - If recheck BG is GREATER than 240, give 6 units and repeat BG in 2 hours (no more than 3 times) & call for new insulin orders. DO NOT hold if NPO, unless specifically directed to do so by written order. Per Blood Glucose Monitoring Policy, re-check a BG of > 240 mg/dL in 2 hours., Routine Group 2: acetaminophen (Tylenol) (32.02 mg/mL) oral liquid 1,000 mgJump to med 1,000 mg, Oral, EVERY 6 HOURS PRN, Starting on Sun09/11/22 at 1814, Until Sun09/13/22 at 1807, Pain, mild pain (1-3), Maximum dose of acetaminophen is 4,000 mg from all sources in 24 hours. When ordered for pain, acetaminophen should be given even when other ordered pain medications are indicated. , Routine Or acetaminophen (Tylenol) tablet 1,000 mgJump to med 1,000 mg, Oral, EVERY 6 HOURS PRN, Starting on Sun09/11/22 at 1814, Until Sun09/13/22 at 1807, Pain, mild pain (1-3), Maximum dose of acetaminophen is 4,000 mg from all sources in 24 hours. When ordered for pain, acetaminophen should be given even when other ordered pain medications are indicated. , Routine Or acetaminophen (Tylenol) suppository 975 mgJump to med 975 mg, Rectal, EVERY 6 HOURS PRN, Starting on Sun09/11/22 at 1814, Until Sun09/13/22 at 1807, Pain, mild pain (1-3), Maximum dose of acetaminophen is 4,000 mg from all sources in 24 hours. When ordered for pain, acetaminophen should be given even when other ordered pain medications are indicated. , Routine Group 3: glucose (Glutose) 40% oral geLJump to med 15-30 g of glucose, Buccal, EVERY 30 MIN PRN, Starting on Sun09/11/22 at 1814, Until Sun09/13/22 at 1807, Low blood sugar, For BG 50-70 mg/dL: Oral treatment preferred: If able to drink, give 120 mL Juice or Regular (not diet) soda OR If NPO, give 15 gram glucose 40% oral gel massaged into buccal mucosa OR if unconscious or uncooperative, give 25 gram (250 mL) Dextrose 10% IV over 15 minutes per protocol OR, if no IV access, 1 mg Glucagon IM. For BG less than 50 mg/dL: Oral treatment preferred: If able to drink, give 240 mL Juice or Regular (not diet) soda OR If NPO, give 30 gram glucose 40% oral gel massaged in buccal mucosa OR if unconscious or uncooperative, give 25 gram (250 mL) Dextrose 10% IV over 15 minutes per protocol OR, if no IV access, 1 mg Glucagon IM. Recheck BG in 30 minutes. May repeat juice/soda, gel, dextrose or glucagon once per episode. For persistent hypoglycemia, consider longer-acting treatment for the duration of the active insulin. 1 tube of Glutose-15 contains 15 grams of glucose (net weight of tube = 37.5 grams.), Routine Or dextrose 10% infusionJump to med 250 mL, at 1,000 mL/hr, Intravenous, EVERY 30 MIN PRN, Starting on Sun09/11/22 at 1814, Until Sun09/13/22 at 1807, For BG 50-70 mg/dL: Oral treatment preferred: If able to drink, give 120 mL Juice or Regular (not diet) soda OR If NPO, give 15 gram glucose 40% oral gel massaged into buccal mucosa OR if unconscious or uncooperative, give 25 gram (250 mL) Dextrose 10% IV over 15 minutes per protocol OR, if no IV access, 1 mg Glucagon IM. For BG less than 50 mg/dL: Oral treatment preferred: If able to drink, give 240 mL Juice or Regular (not diet) soda OR If NPO, give 30 gram glucose 40% oral gel massaged in buccal mucosa OR if unconscious or uncooperative, give 25 gram (250 mL) Dextrose 10% IV over 15 minutes per protocol OR, if no IV access, 1 mg Glucagon IM. Recheck BG in 30 minutes. May repeat juice/soda, gel, dextrose or glucagon once per episode. For persistent hypoglycemia, consider longer-acting treatment for the duration of the active insulin. Or glucagon (Glucagen) (1 mg/mL) injection solution 1 mgJump to med 1 mg, Intramuscular, EVERY 30 MIN PRN, Starting on 09/11/22 at 1814, Until Sun09/13/22 at 1807, Low blood sugar, For BG 50-70 mg/dL: Oral treatment preferred: If able to drink, give 120 mL Juice or Regular (not diet) soda OR If NPO, give 15 gram glucose 40% oral gel massaged into buccal mucosa OR if unconscious or uncooperative, give 25 gram (250 mL) Dextrose 10% IV over 15 minutes per protocol OR, if no IV access, 1 mg Glucagon IM. For BG less than 50 mg/dL: Oral treatment preferred: If able to drink, give 240 mL Juice or Regular (not diet) soda OR If NPO, give 30 gram glucose 40% oral gel massaged in buccal mucosa OR if unconscious or uncooperative, give 25 gram (250 mL) Dextrose 10% IV over 15 minutes per protocol OR, if no IV access, 1 mg Glucagon IM. Recheck BG in 30 minutes. May repeat juice/soda, gel, dextrose or glucagon once per episode. 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
--- OUTSIDE RECORDS SUMMARY | 2024-05-26 12:42 | XMS_ITS | Encounter Summary ---
Author Organization [facility] [place] [address] Care Team Providers Care General Adjuster Name Role Phone Hai Lopez DO Primary Care Provider [phone] Encounter Details Date Type Department Care Team (Latest Contact Info) Description 09/27/2022 Travel Social History Tobacco Use Types Packs/Day [...] on filedocumented in this encounter Care Teams General Adjuster Relationship Specialty Start Date End Date Hai Lopez DO [address] [place] [id number] PCP - General Family Medicine 10/10/17 documented as of this encounter
--- OUTSIDE RECORDS SUMMARY | 2024-05-26 12:42 | XMS_ITS | Encounter Summary ---
[place] [address] Care Team Providers Care Distillery Worker General Name Role Phone Hai Lopez Primary Care Provider [phone] Reason for Visit * Auth/Cert (Routine) Specialty Diagnoses / Procedures Referred By Contac t Referred To Contact Diagnoses ANEURYSM OF LEFT INTERNAL CAROTID ARTERY Procedures PRO PERM OCCLUSION/EMBOLIZATION, AKBAR, HOSE STRIPPER @TRANSCATHETER OCCLUSION/EMBOLIZATION FOR TUMOR DESTRUCTION Vera Townsend MD [facility] [place] [place] [address] [facility] Referral ID Status Reason Start Date Expiration Date Visits Re quested Visits Authorized [id number] 1 1 Encounter Details Date Type Department Care Team (Late st Contact Info) Description 09/11/2022 12:30 PM EST - 09/11/2022 4:50 [place] [address] Vera Townsend MD [facility] [place] [address] @TRANSCATHETER OCCLUSION/EMBOLIZATION FOR TUMOR DESTRUCTION (WRVU 20.12) Social History Tobacco Use Types Packs/Day Years Used Date Smoking Tobacco: Every Day Cigarettes 0.3 40 Smokeless Tobacco: Never Tobacco Cessation:Ready to Q uit: Not Asked; Counseling Given: Not Answered Comments:down to 5 cigs. Alcohol Use Standard Drinks/Week Comments No 0 (1 standard drink = 0.6 oz pur e alcohol) [facility] Inpatient Questions Answer Date Recorded Does Anyone [...] Sign Reading Time Taken Comments Blood Pressure 130/92 09/11/2022 12:10 PM EST Pulse 94 09/11/2022 12:10 PM EST Temperature 36.3 ??C (97.3 ??F) 09/11/2022 12:[address] Respiratory Rate 16 09/11/2022 12:10 PM EST Oxygen Saturation 99% 09/11/2022 12:10 PM EST Inhaled Oxygen Concentration - - Weight 92.3 kg (203 lb 8 oz) 09/11/2022 12:10 PM EST Height - - Body Mass Index 35.29 09/11/2022 5:00 PM [...] in IR with Dr. Townsend via RIGHT ACID CUTTER access. There were no complications with the [...] 131 65 - 199 mg/dL P2Y12 Antiplatelet ([facility]) Result Value Ref Range P2Y12 144 PRU [...] Phone 02/15/2023 9:00 AM Daxa Lala, OD; DILATION AND TEST, SHANTELL; SHANTELL SAVAGE Ophthalmology at [facility] Arrive at: Meteorology Instructor Area [phone] Discharge Medications: Your Medications New Medications Dose [...] Given to Patient at Discharge: Patient Instructions [facility] ENDOVASCULAR TREATMENT OF UNRUPTURED INTRACRANIAL ANEURYSM DISCHARGE [...] be held both in-person and virtually Where [place] [id number] To Join the Meeting from Home, visit the following link at the scheduled time of the meeting: [email or web address] You will be asked to download Webex to your device, and you can then join the meeting from [employer]. Contact Please contact Destiny Alfredo for details. [email or web address] [phone] FOLLOW UP PLAN: [x] Please follow up in the Neurosurgery Clinic in 4-6 weeks. Please call the Neurosurgery Office at [phone] if you do not receive a scheduled appointment within two weeks. You will follow-up with: [x] Dr. Townsend Imaging: [x] No imaging required at initial telehealth follow up [x] Will require CT Angiogram at 3 month follow up HOW TO REACH NEUROSURGERY Contact your Doctor Office Hours: Sunday through Sunday, 8am-5pm. Call . On weekends or after office hours: Call [phone] and ask the production boring machine operator to page the Neurosurgery Resident conference manager. IMPORTANT PHONE NUMBERS: Outpatient Nurse (Roxana Bright) Inpatient Nurses Neurosurgical Resident/Advanced Practice Provider On-Call (after 5pm or before 8am) Neurosurgery offices (Sunday through Sunday between 8am-5pm): Adult Neurosurgery Dr. Deric Ibarra Pediatric Neurosurgery Dr. Skylar Horowitz Advanced Practice Providers Alexia Robertson, Nurse Practitioner (outpatient) Slime Adair, Physician Rn Advanced (inpatient) Destiny Alfredo, Nurse Practitioner (inpatient) Jeanette Noel, Nurse Practitioner (inpatient) Maura Jacobson, Physician Rn Advanced (inpatient) Maura Morrow, Physician Rn Advanced (inpatient) Fanny Blackman, Physician Rn Advanced (outpatient: spine) Ray Cleary, Nurse Practitioner (inpatient/outpatient) Max Dahl, Physician Rn Advanced (outpatient) * Your surgeon may not be surveyor helper rod, so be ready to tell about yourself [...] hours (after 5pm or before 8am): Call [phone] and ask the production boring machine operator to page the Neurosurgery Resident/Advanced Practice Provider conference manager. *Your surgeon may not be surveyor helper rod (especially after office hours or on the weekend) so be ready totell about yourself and your surgery when you call. Neurosurgery Providers Adult Neurosurgery Dr. Elida Ibarra Pediatric Neurosurgery Dr. Skylar Horowitz Advanced Practice Providers Alexia Robertson, Nurse Practitioner (outpatient) Slime Adair, Physician Rn Advanced (inpatient/outpatient: neuro-onc) Maura Jacobson, Physician Rn Advanced (inpatient) Jeanette Noel, Nurse Practitioner (inpatient) Derik Velazquez, Nurse Practitioner (outpatient: pediatric) Destiny Alfredo, Nurse Practitioner (outpatient: vascular) Fanny Blackman, Physician Rn Advanced (outpatient: spine) Ray Cleary, Nurse Practitioner (inpatient/outpatient) Max Dahl, Physician Rn Advanced (outpatient) Outpatient Nurses GOMEZ Maxwell 09/13/2022 documented in this encounter Discharge Instructions * Patient Instructions* Maura Jacobson PA - 09/13/2022 1:26 PM EST [facility] ENDOVASCULAR TREATMENT OF UNRUPTURED INTRACRANIAL ANEURYSM DISCHARGE [...] be held both in-[place] [address] To Join the Meeting from Home, visit the following link at the scheduled time of the meeting: [email or web address] You will be asked to download [employer] to your device, and you can then join the meeting from [employer]. Contact Please contact Destiny Alfredo for details. [email or web address] [phone] FOLLOW UP PLAN: [x] Please follow up in the Neurosurgery Clinic in 4-6 weeks. Please call the Neurosurgery Office at [phone] if you do not receive a scheduled appointment within two weeks. You will follow-up with: [x] Dr. Townsend Imaging: [x] No imaging required at initial telehealth follow up [x] Will require CT Angiogram at 3 month follow up HOW TO REACH NEUROSURGERY Contact your Doctor Office Hours: Sunday through Sunday, 8am-5pm. Call . On weekends or after office hours: Call [phone] and ask the production boring machine operator to page the Neurosurgery Resident conference manager. IMPORTANT PHONE NUMBERS: Outpatient Nurse (Roxana Bright) Inpatient Nurses Neurosurgical Resident/Advanced Practice Provider On-Call (after 5pm or before 8am) Neurosurgery offices (Sunday through Sunday between 8am-5pm): Adult Neurosurgery Dr. Deric Ibarra Pediatric Neurosurgery Dr. Skylar Horowitz Advanced Practice Providers Alexia Robertson, Nurse Practitioner (outpatient) Slime Adair, Physician Rn Advanced (inpatient) Destiny Alfredo, Nurse Practitioner (inpatient) Jeanette Noel, Nurse Practitioner (inpatient) Maura Jacobson, Physician Rn Advanced (inpatient) Maura Morrow, Physician Rn Advanced (inpatient) Fanny Blackman, Physician Rn Advanced (outpatient: spine) Ray Cleary, Nurse Practitioner (inpatient/outpatient) Max Dahl, Physician Rn Advanced (outpatient) * Your surgeon may not be surveyor helper rod, so be ready to tell about yourself [...] today For question please call NSGY pager [phone] Rich Butt MD 09/13/2022 5:43 AM Clinical [...] course For question please call NSGY pager [phone] Rich Butt MD 2022 1:58 PM Clinical [...] PM EST NEUROSURGERY PROGRESS NOTE PLEASE PAGE [phone] WITH QUESTIONS ID: Mary Beth Holman is [...] Dressings dry and intact A/P: Mary Beth Hloman is a 62 y.o. female ight-handed on ASA/plavix (taking for 2 weeks, last dose this morning 09/11) with PMHx of COPD, DM, HLD, HTN, UBI and incidental L ICA aneurysm presenting for [...] documented in this encounter H&P Notes * Rich Butt MD - 09/11/2022 12:01 PM EST Neurosurgery Pre-Op H&P Mary Beth Holman was seen and examined in [facility]. No interval events or changes in health [...] IR Arteriogram Cerebral 08/04/2022 Bernardo Carmen MD [facility] INTERVENTIONL RAD ??? PRO COLONOSCOPY, REMV LESN, SNARE N/A 10/10/2017 COLONOSCOPY, POLYPECTOMY, REMOVAL LESION BY SNARE (WRVU 4.67) performed by Richmond Orellana MD at [facility] ENDOSCOPY ??? PRO EXCISION SUBMAXILLARY GLAND Left 02/23/2017 EXCISION SUBMANDIBULAR (SUBMAXILLARY) GLAND-GARY (WRVU 6.14) performed by Salty Butler MD [facility] OR ??? PRO UPPER GI ENDOSCOPY, BIOPSY N/A 10/10/2017 EGD WITH BIOPSY (WRVU 2.49) performed by Richmond Orellana MD at [facility] ENDOSCOPY ??? WRIST SURGERY Left 2 left [...] Townsend MD - 09/11/2022 6:31 PM EST I, Vera Townsend, discussed the [...] sibling(s), pet(s), other relative(s) (Patient lives with hersluis alfredo, mau, 2 dogs, and a cat). Current Living [...] All are in agreement with plan. Roxana VARGHESE, RN CM Phone: [phone] Pager: [phone] * Plan of Care - Elizabeth Herman [...] surrogate would be surrogate decision maker per [place] decision making law. (Only good for 180 days) Any patient receiving care in [place] must abide by [place] law. The hierarchy for surrogate decision making [...] (i) The agent with financial power of open pit quarry supervisor or a conservator appointed in accordance with [...] confirmed as: [address] [facility] [address] Social & Family Supports: All names listed below confirmed with patient as current and correct Extended Emergency Contact Information Primary Emergency Contact: Camryn Hernandez [facility] Relation: Friend Secondary Emergency Contact: Qian Fritz [...] N/A ; Prescription Coverage: Yes Preferred Pharmacy: [id number] - [place], [place] - [address] [facility] [address] [place] Status: Patient is a : No Primary Care Provider confirmed: Hai Lopez DO [phone] Patient/Caregiver Goals of Treatment: return home when [...] care planning. Roxana VARGHESE, RN CM Phone: [phone] Pager: [phone] * Consult Note - Denise Hogue APRN - 2022 1:34 PM EST Diabetes Management Team Inpatient Consult Date of Consultation: 2022 Consult Requested by: Neurosurgery Reason for Consultation: Mary Beth Holman is a 62 y.o. female with PMH significant for T2DM who was admitted on 09/11/2022 currently being treated for cerebral aneurysm. We are being consulted to assistwith diabetes management and to provide a review of shelter diabetes care. Diabetes History: Mary Beth Holman [...] care for your patient Denise Hogue APRN [facility] Endocrinology Diabetes Management Pager [phone] minutes of this 80 minute visit [...] ICA aneurysm Name of Procedure Performed: R ACID CUTTER access L ICA aneurysm stent embolization R [...] 09/11/2022 2:09 PM EST Perm Occlusion/Embolization, Percut, Online Communications Specialist ([id number]) 09/11/2022 12:28 PM EST ANEURYSM OF LEFT [...] Glucose, POC 174 65 - 199 mg/dL [facility] Comment: Supplemental ranges: <140 mg/dL before meals <180 mg/dL all other times of the day Blood 09/13/2022 12:2 6 PM EST 09/13/2022 12:26 PM EST Vera Townsend MD POINT OF CARE TEST ORDERABLES [facility] [place] [address] * POCT Glucose (09/13/2022 10:01 AM EST) Glucose, POC 127 65 - 199 mg/dL [facility] Comment: Supplemental ranges: <140 mg/dL before meals <180 mg/dL all other times of the day Blood 09/13/2022 10:0 1 AM EST 09/13/2022 10:01 AM EST Vera Townsend MD POINT OF CARE TEST ORDERABLES Performing Organization Address City/[facility]/ZIP Co de Phone Number [facility] [place] [address] * P2Y12 Antiplatelet ([facility]) (09/13/2022 9:35 AM EST) P2Y12 144 PRU [facility] Comment: Test results are reported [...] MD HEMATOLOGY ORDERABL ES Performing Organization Address City/[facility]/[place] [address] * POCT Glucose (09/13/2022 7:48 AM EST) Glucose, POC 131 65 - 199 mg/dL [facility] Comment: Supplemental ranges: <140 mg/dL before meals <180 mg/dL all other times of the day Blood 09/13/2022 7:48 AM EST 09/13/2022 7:48 AM EST Vera Townsend MD POINT OF CARE TEST ORDERABLES Performing Organization Address [facility] [place] [address] * (ABNORMAL) Differential, Automated (09/13/2022 4:15 AM EST) [facility] Neutrophil % 66.9 % [facility] Neutrophil Absolute 6.33(H) 1.70 - 6.10 x10(3)/mc L [facility] Lymph % 25.3 % [facility] Lymphocytes Abs 2.4 0.9 - 3.2 x10(3)/mc L [facility] Monocyte % 5.3 % [facility] Monocyte Abs 0.5 0.3 - 0.9 x10(3)/mc L [facility] Eos % 1.6 % [facility] Eosinophils Abs 0.2 0.0 - 0.4 x10(3)/mc L [facility] Basophil % 0.5 % [facility] Baso Absolute 0.0 0.0 - 0.1 x10(3)/mc L [facility] Immature Gran % 0.40 % [facility] Comment: Immature granulocytes(IG's)percentage and absolute count will include metamyelocytes, myelocytes, and promyelocytes. Blood smears from CBCs yielding IG's will be scanned manually for concordance. If this scan disagrees with the automated IG or if promyelocytes are noted, a manual differential will be performed. Immature Gran Absolute 0.04 0.00 - 0.04 x10(3)/mc L [facility] Blood 09/13/2022 4:15 AM EST 09/13/2022 4:27 AM EST Narrative Resulting Agency Comment Spec In Lab Ingird Lua MD HEMATOLOGY ORDERABLE S [facility] [place] [address] * (ABNORMAL) Hemogram (09/13/2022 4:15 AM EST) White Blood Cell 9.5 4.0 - 9.5 x10(3)/mc L [facility] Red Blood Cell 4.85 4.00 - 5.21 x10(6)/mc L [facility] Hemoglobin 14.2 11.7 - 15.5 g/dL [facility] Hematocrit 44.7 35.7 - 45.8 % [facility] Mean Cell Volume 92.2 82.6 - 94.4 fL [facility] Mean Cell Hemoglobin 29.3 27.1 - 32.0 pg [facility] Mean Cell Hemoglobin Concentration 31.8 31.7 - 35.0 g/dL [facility] Platelet 126(L) 145 - 357 x10(3)/mc L [facility] RDW Standard Deviation 48.0(H) 37.0 - 46.0 fL [facility] RDW coefficient of variation 14.0 11.5 - 14.1 % [facility] Mean Platelet Volume 11.0 7.6 - 12.9 fL [facility] NRBC% auto 0.0 % [facility] NRBC Absolute 0.000 0.000 - 0.000 x10(3)/mc L [facility] Blood 09/13/2022 4:15 AM EST 09/13/2022 4:27 AM EST Narrative Resulting Agency Comment Spec In Lab Ingrid Lua MD HEMATOLOGY ORDERABLE S [facility] [place] [address] * (ABNORMAL) Basic Metabolic Panel (non-fasting) (09/13/2022 4:15 AM EST) Glucose 134 65 - 199 mg/dL [facility] Comment:Diabetes: >=200 mg/d L plus symptoms Blood Urea Nitrogen 16 8 - 18 mg/dL [facility] Creatinine 0.68(L) 0.70 - 1.20 mg/dL [facility] Sodium 143 135 - 145 mmol/L [facility] Potassium 4.0 3.5 - 5.0 mmol/L [facility] Comment: Please note: ??Patients with WBC >100,000 may have falsely elevated Potassium levels. ??For accurate Potassium quantification in these patients send serum separator tube (gold top) for subsequent determinations. ??Contact the Clinical Chemistry Laboratory if there are any questions. Chloride 105 98 - 107 mmol/L [facility] Carbon Dioxide 32(H) 22 - 31 mmol/L [facility] Anion Gap 6 5 - 15 mmol/L [facility] Calcium 8.6 8.5 - 10.5 mg/dL [facility] Est Glomerular Filtration Rate 98 >=60 mL/min/1. 73 m?? [facility] Comment: This patient's estimated GFR [...] Lab Vera Townsend MD CHEMISTRY ORDERABLE S [facility] [place] [address] * POCT Glucose (09/13/2022 4:13 AM EST) Glucose, POC 128 65 - 199 mg/dL [facility] Comment: Supplemental ranges: <140 mg/dL before meals <180 mg/dL all other times of the day Blood 09/13/2022 4:13 AM EST 09/13/2022 4:13 AM EST Vera Townsend MD POINT OF CARE TEST ORDERABLES [facility] [place] [address] * POCT Glucose (09/13/2022 1:48 AM EST) Glucose, POC 147 65 - 199 mg/dL [facility] Comment: Supplemental ranges: <140 mg/dL before meals <180 mg/dL all other times of the day Blood 09/13/2022 1:48 AM EST 09/13/2022 1:48 AM EST Vera Townsend MD POINT OF CARE TEST ORDERABLES Performing Organization Address City/[facility]/ZIP Co de Phone Number [facility] [place] [address] * POCT Glucose (2022 8:18 PM EST) Glucose, POC 163 65 - 199 mg/dL [facility] Comment: Supplemental ranges: <140 mg/dL before meals <180 mg/dL all other times of the day Blood 2022 8:18 PM EST 2022 8:18 PM EST Vera Townsend MD POINT OF CARE TEST ORDERABLES [facility] [place] [address] * POCT Glucose (2022 4:11 PM EST) Glucose, POC 129 65 - 199 mg/dL [facility] Comment: Supplemental ranges: <140 mg/dL before meals <180 mg/dL all other times of the day Blood 2022 4:11 PM EST 2022 4:11 PM EST Vera Townsend MD POINT OF CARE TEST ORDERABLES Performing Organization Address City/[facility] Co de Phone Number [facility] [place] [address] * POCT Glucose (2022 11:55 AM EST) Glucose, POC 165 65 - 199 mg/dL [facility] Comment: Supplemental ranges: <140 mg/dL before meals <180 mg/dL all other times of the day Blood 2022 11:5 5 AM EST 2022 11:55 AM EST Vera Townsend MD POINT OF CARE TEST ORDERABLES Performing Organization Address [facility] Co de Phone Number [facility] [place] [address] * POCT Glucose (2022 7:35 AM EST) Glucose, POC 127 65 - 199 mg/dL [facility] Comment: Supplemental ranges: <140 mg/dL before meals <180 mg/dL all other times of the day Blood 2022 7:35 AM EST 2022 7:35 AM EST Vera Townsend MD POINT OF CARE TEST ORDERABLES Performing Organization Address City/[facility] Co de Phone Number [facility] [place] [address] * POCT Glucose (2022 4:12 AM EST) Glucose, POC 138 65 - 199 mg/dL [facility] Comment: Supplemental ranges: <140 mg/dL before meals <180 mg/dL all other times of the day Blood 2022 4:12 AM EST 2022 4:12 AM EST Vera Townsend MD POINT OF CARE TEST ORDERABLES Performing Organization Address City/[facility]/ZIP Co de Phone Number [facility] [place] [address] * (ABNORMAL) Hemoglobin A1c (2022 2:35 AM EST) Hemoglobin A1c 8.0(H) 4.3 - 5.6 % [facility] Comment: Reference Range: 4.3 - [...] Mellitus, Diabetes Care 2013; 36: Suppl. 1, S67-03 Estimated Average Glucose 182 mg/dL [facility] Comment: eAG equivalents for HbA1c [...] into estimated average glucose values. ??Diabetes Care 2008:31(8):1780-8927. Blood Venous Draw / Unknown 2022 2:35 AM EST 2022 1:52 PM EST Narrative Resulting Agency Comment Spec In Lab Denise Hogue PLSQL DEVELOPER CHEMISTRY ORDERABLE S Performing Organization Address City/[facility]/[place] [address] * Blue Tube HOLD (2022 2:35 AM EST) Blue Hold Sample in lab. [facility] Blood Venous Draw / Unknown 2022 2:35 AM EST 2022 2:48 AM EST Jessica DYER HEMATOLOGY RYAN CHO Performing Organization Address City/[facility]/[place] [address] * (ABNORMAL) Differential, Automated (2022 2:35 AM EST) Neutrophil % 81.0 % [facility] Neutrophil Absolute 5.91 1.70 - 6.10 x10(3)/mc L [facility] Lymph % 15.2 % [facility] Lymphocytes Abs 1.1 0.9 - 3.2 x10(3)/mc L [facility] Monocyte % 3.2 % [facility] Monocyte Abs 0.2(L) 0.3 - 0.9 x10(3)/mc L [facility] Eos % 0.0 % [facility] Eosinophils Abs 0.0 0.0 - 0.4 x10(3)/mc L [facility] Basophil % 0.3 % [facility] Baso Absolute 0.0 0.0 - 0.1 x10(3)/mc L [facility] Immature Gran % 0.30 % [facility] Comment: Immature granulocytes(IG's)percentage and absolute count will include metamyelocytes, myelocytes, and promyelocytes. Blood smears from CBCs yielding IG's will be scanned manually for concordance. If this scan disagrees with the automated IG or if promyelocytes are noted, a manual differential will be performed. Immature Gran Absolute 0.02 0.00 - 0.04 x10(3)/mc L [facility] Blood 2022 2:35 AM EST 2022 2:47 AM EST Narrative Resulting Agency Comment Spec In Lab Jessica DYER HEMATOLOGY RYAN CHO [facility] [place] [address] * (ABNORMAL) Hemogram (2022 2:35 AM EST) White Blood Cell 7.3 4.0 - 9.5 x10(3)/mc L [facility] Red Blood Cell 5.10 4.00 - 5.21 x10(6)/[facility] Hemoglobin 14.9 11.7 - 15.5 g/dL [facility] Hematocrit 46.4(H) 35.7 - 45.8 % [facility] Mean Cell Volume 91.0 82.6 - 94.4 fL [facility] Mean Cell Hemoglobin 29.2 27.1 - 32.0 pg [facility] Mean Cell Hemoglobin Concentration 32.1 31.7 - 35.0 g/dL [facility] Platelet 150 145 - 357 x10(3)/ L [facility] RDW Standard Deviation 47.0(H) 37.0 - 46.0 fL [facility] RDW coefficient of variation 13.9 11.5 - 14.1 % [facility] Mean Platelet Volume 11.4 7.6 - 12.9 fL [facility] NRBC% auto 0.0 % [facility] NRBC Absolute 0.000 0.000 - 0.000 x10(3)/mc L [facility] Blood 2022 2:35 AM EST 2022 2:47 AM EST Narrative Resulting Agency Comment Spec In Lab Jessica DYER HEMATOLOGY RYAN CHO [facility] [place] [place] [address] * Phosphorus (2022 2:35 AM EST) Phosphorus 4.2 2.5 - 4.5 mg/dL [facility] Blood 2022 2:35 AM EST 2022 2:47 AM EST Narrative Resulting Agency Comment Spec In Lab Vera Townsend MD CHEMISTRY ORDERABLE S Performing Organization Address [facility] de Phone Number [facility] [place] [address] * Magnesium (2022 2:35 AM EST) Magnesium 0.81 0.69 - 1.07 mmol/L [facility] Blood 2022 2:35 AM EST 2022 2:47 AM EST Narrative Resulting Agency Comment Spec In Lab Vera Townsend MD CHEMISTRY ORDERABLE S Performing Organization Address [facility] de Phone Number [facility] [place] [address] * (ABNORMAL) Basic Metabolic Panel (non-fasting) (2022 2:35 AM EST) Glucose 183 65 - 199 mg/dL [facility] Comment:Diabetes: >=200 mg/d L plus symptoms Blood Urea Nitrogen 17 8 - 18 mg/dL [facility] Creatinine 0.59(L) 0.70 - 1.20 mg/dL [facility] Sodium 142 135 - 145 mmol/L [facility] Potassium 4.7 3.5 - 5.0 mmol/L [facility] Comment: Please note: ??Patients with WBC >100,000 may have falsely elevated Potassium levels. ??For accurate Potassium quantification in these patients send serum separator tube (gold top) for subsequent determinations. ??Contact the Clinical Chemistry Laboratory if there are any questions. Chloride 108(H) 98 - 107 mmol/L [facility] Carbon Dioxide 27 22 - 31 mmol/L [facility] Anion Gap 7 5 - 15 mmol/L [facility] Calcium 8.2(L) 8.5 - 10.5 mg/dL [facility] Est Glomerular Filtration Rate 101 >=60 mL/min/1. 73 m?? [facility] Comment: This patient's estimated GFR [...] MD CHEMISTRY ORDERABLE S Performing Organization Address [facility] Phone Number [facility] [place] [address] * (ABNORMAL) Hepatic Function Panel (2022 2:35 AM EST) Protein, Total 5.5(L) 6.1 - 8.0 g/dL [facility] Albumin 3.6 3.2 - 5.2 g/dL [facility] Aspartate Aminotransferase 16 0 - 30 unit/L [facility] Alanine Aminotransferase 11 0 - 30 unit/L [facility] Alkaline Phosphatase 71 35 - 105 unit/L [facility] Bilirubin, Total 0.2 0.2 - 1.3 mg/dL [facility] Bilirubin, Direct 0.1 0.0 - 0.3 mg/dL [facility] Blood 2022 2:35 AM EST 2022 2:47 AM EST Narrative Resulting Agency Comment Spec In Lab Vera Townsend MD CHEMISTRY ORDERABLE S Performing Organization Address [facility] Co de Phone Number [facility] [place] [address] * CK (2022 2:35 AM EST) Creatine Kinase 105 0 - 160 unit/L [facility] Blood 2022 2:35 AM EST 2022 2:47 AM EST Narrative Resulting Agency Comment Spec In Lab Vera Townsend MD CHEMISTRY ORDERABLE S Performing Organization Address City/[facility]/ZIP Co de Phone Number [facility] [place] [address] * Triglyceride (2022 2:35 AM EST) Triglyceride 159 mg/dL [facility] Comment: Average Risk/Lower Risk: <150 mg/dL Borderline High Risk: 150-199 mg/dL High Risk: 200-499 mg/dL Very High Risk: >ho=265 mg/dL Blood 2022 2:35 AM EST 2022 2:47 AM EST Narrative Resulting Agency Comment Spec In Lab Vera Townsend MD CHEMISTRY ORDERABLE S Performing Organization Address [facility] Co de Phone Number [facility] [place] [address] * POCT Glucose (2022 2:33 AM EST) Glucose, POC 161 65 - 199 mg/dL [facility] Comment: Supplemental ranges: <140 mg/dL before meals <180 mg/dL all other times of the day Blood 2022 2:33 AM EST 2022 2:33 AM EST Vera Townsend MD POINT OF CARE TEST ORDERABLES Performing Organization Address [facility] Co de Phone Number [facility] [place] [address] * (ABNORMAL) POCT Glucose (09/11/2022 8:28 PM EST) Glucose, POC 206(H) 65 - 199 mg/dL [facility] Comment: Supplemental ranges: <140 mg/dL before meals <180 mg/dL all other times of the day Blood 09/11/2022 8:28 PM EST 09/11/2022 8:28 PM EST Vera Townsend MD POINT OF CARE TEST ORDERABLES Performing Organization Address City/[facility]/ZIP Co de Phone Number [facility] [place] [address] * POCT Glucose (09/11/2022 5:58 PM EST) Glucose, POC 189 65 - 199 mg/dL [facility] Comment: Supplemental ranges: <140 mg/dL before meals <180 mg/dL all other times of the day Blood 09/11/2022 5:58 PM EST 09/11/2022 5:58 PM EST Vera Townsend MD POINT OF CARE TEST ORDERABLES Performing Organization Address City/[facility] Co de Phone Number [facility] [place] [address] * POCT Glucose (09/11/2022 2:23 PM EST) Glucose, POC 120 65 - 199 mg/dL [facility] Comment: Supplemental ranges: <140 mg/dL before meals <180 mg/dL all other times of the day Blood 09/11/2022 2:23 PM EST 09/11/2022 2:23 PM EST Vera Townsend MD POINT OF CARE TEST ORDERABLES Performing Organization Address City/[facility] Co de Phone Number [facility] [place] [address] * P2Y12 Antiplatelet ([facility]) (09/11/2022 2:09 PM EST) P2Y12 92 PRU [facility] Comment: Test results are reported [...] MD HEMATOLOGY ORDERABL ES Performing Organization Address City/[facility]/ZIP Co de Phone Number [facility] [place] [address] * Type and Screen Validity (09/11/2022 12:19 PM EST) T&S only valid at [facility] Comment:This Type and Screen result is only valid at the [facility] Blood 09/11/2022 12:1 9 PM EST 09/11/2022 12:36 PM EST Narrative Resulting Agency Comment Spec In Lab Rich Butt MD BLOOD BANK LAB ORDER PRAFUL Performing Organization Address City/[facility]/ZIP Co de Phone Number [facility] [place] [address] * ABORH Recheck Status (09/11/2022 12:19 PM EST) ABORH Type Recheck Completed [facility] Blood 09/11/2022 12:1 9 PM EST 09/11/2022 12:36 PM EST Narrative Resulting Agency Comment Spec In Lab Rich Butt MD BLOOD BANK LAB ORDER PRAFUL Performing Organization Address City/[facility]/ZIP Co de Phone Number [facility] [place] [address] * Blue Tube HOLD (09/11/2022 12:19 PM EST) Blue Hold Sample in lab. [facility] Blood Venous Draw / Unknown 09/11/2022 12:19 PM EST 09/11/2022 12:44 PM EST Rich Butt MD HEMATOLOGY ORDERABLE S [facility] [place] [address] * Differential, Automated (09/11/2022 12:19 PM EST) Neutrophil % 58.8 % [facility] Neutrophil Absolute 4.42 1.70 - 6.10 x10(3)/[facility] Lymph % 29.8 % [facility] Lymphocytes Abs 2.2 0.9 - 3.2 x10(3)/[facility] Monocyte % 7.0 % [facility] Monocyte Abs 0.5 0.3 - 0.9 x10(3)/[facility] Eos % 3.2 % [facility] Eosinophils Abs 0.2 0.0 - 0.4 x10(3)/[facility] Basophil % 0.9 % [facility] Baso Absolute 0.1 0.0 - 0.1 x10(3)/[facility] Immature Gran % 0.30 % [facility] Comment: Immature granulocytes(IG's)percentage and absolute count will include metamyelocytes, myelocytes, and promyelocytes. Blood smears from CBCs yielding IG's will be scanned manually for concordance. If this scan disagrees with the automated IG or if promyelocytes are noted, a manual differential will be performed. Immature Gran Absolute 0.02 0.00 - 0.04 x10(3)/[facility] Blood 09/11/2022 12:1 9 PM EST 09/11/2022 12:43 PM EST Narrative Resulting Agency Comment Spec In Lab Rich Butt [place] [address] * (ABNORMAL) Hemogram (09/11/2022 12:19 PM EST) White Blood Cell 7.5 4.0 - 9.5 x10(3)/ L [facility] Red Blood Cell 5.92(H) 4.00 - 5.21 x10(6)/mc L [facility] Hemoglobin 17.6(H) 11.7 - 15.5 g/dL [facility] Hematocrit 54.0(H) 35.7 - 45.8 % [facility] Mean Cell Volume 91.2 82.6 - 94.4 fL [facility] Mean Cell Hemoglobin 29.7 27.1 - 32.0 pg [facility] Mean Cell Hemoglobin Concentration 32.6 31.7 - 35.0 g/dL [facility] Platelet 204 145 - 357 x10(3)/mc L [facility] RDW Standard Deviation 48.4(H) 37.0 - 46.0 fL [facility] RDW coefficient of variation 14.4(H) 11.5 - 14.1 % [facility] Mean Platelet Volume 11.3 7.6 - 12.9 fL [facility] NRBC% auto 0.0 % [facility] NRBC Absolute 0.000 0.000 - 0.000 x10(3)/mc L [facility] Blood 09/11/2022 12:1 9 PM EST 09/11/2022 12:43 PM EST Narrative Resulting Agency Comment Spec In Lab Rich uBtt MD HEMATOLOGY ORDERABLE S [facility] [place] [address] * Antibody screen (09/11/2022 12:19 PM EST) Ab Screen Interp Negative [facility] Expires at [id number] on: 09/14/2022 [facility] Blood 09/11/2022 12:1 9 PM EST 09/11/2022 12:36 PM EST Narrative Resulting Agency Comment Spec In Lab Rich Butt MD BLOOD BANK LAB ORDER PRAFUL Performing Organization Address City/[facility]/ZIP Co de Phone Number [facility] [place] [address] * ABO/Rh Typing (09/11/2022 12:19 PM EST) ABORH Type O Pos [facility] Blood 09/11/2022 12:1 9 PM EST 09/11/2022 12:36 PM EST Narrative Resulting Agency Comment Spec In Lab Rich Butt MD BLOOD BANK LAB ORDER PRAFUL [facility] [place] [address] * (ABNORMAL) APTT (09/11/2022 12:19 PM EST) Partial Thromboplastin Time 24(L) 25 - 37 sec [facility] Comment: The PTT is NOT appropriate for heparin monitoring. Use the Anti-Xa level for heparin monitoring (HEP UFH) or LMWH monitoring (HEP LMW). A PTT less than 37 seconds generally indicates adequate hemostasis. Blood 09/11/2022 12:1 9 PM EST 09/11/2022 12:43 PM EST Narrative Resulting Agency Comment Spec In Lab Vera Townsend MD HEMATOLOGY ORDERABL ES Performing Organization Address [facility] Co de Phone Number [facility] [place] [address] * Prothrombin Time (09/11/2022 12:19 PM EST) Pathologist [facility] Prothrombin Time 11.0 9.4 - 12.5 sec [facility] International Normalization Ratio 1.0 [facility] Comment: An INR <2.0 indicates [...] MD HEMATOLOGY ORDERABL ES Performing Organization Address City/[facility]/ZIP Co de Phone Number [facility] [place] [address] * POCT Glucose (09/11/2022 11:50 AM EST) Glucose, POC 160 65 - 199 mg/dL [facility] Comment: Supplemental ranges: <140 mg/dL before meals <180 mg/dL all other times of the day Blood 09/11/2022 11:5 0 AM EST 09/11/2022 11:50 AM EST Vera Townsend MD POINT OF CARE TEST ORDERABLES [facility] [place] [address] documented in this encounter Visit Diagnoses Not [...] Rectal, EVERY 6 HOURS PRN, Starting on 09/11/22 at 1814, Until 09/13/22 at 1807, Pain, mild pain (1-3), Maximum dose of acetaminophen is 4,000 mg from all sources in 24 hours. When ordered for pain, acetaminophen should be given even when other ordered pain medications are indicated. , Routine acetaminophen (Tylenol) tablet 1,000 mg 1,000 mg, Oral, EVERY 6 HOURS PRN, Starting on 09/11/22 at 1814, Until 09/13/22 at 1807, Pain, mild pain (1-3), Maximum [...] Given 2022 8:20 PM EST 2 Units meclizine (Antivert) tablet 50 mg 50 mg, [...] Given 2022 8:51 AM EST 150 mg documented in this encounter Active and Recently Administered Medications Times are shown in EST. Scheduled Medication Order 09/11/2022 2022 09/13/2022 aspirin chewable tablet 81 mg 81 mg, Oral, DAILY, First dose on Sun09/12/22 at 1600, Until Discontinued, Routine 1624 (Given - Provider: Elizabeth Herman RN) 0954 (Given - Provider: Alyssa Bob RN) clopidogreL (Plavix) tablet 75 mg 75 mg, Oral, DAILY, First dose on Sun09/12/22 at 0900, Until Discontinued, Routine 0851 (Given - Provider: Elizabeth Herman RN) 0954 (Given - Provider: Alyssa Bob RN) empagliflozin (Jardiance) tablet 25 mg 25 mg, [...] home? Yes 0852 (Given - Provider: Elizabeth Herman RN) 0956 (Given - Provider: Alyssa Bob RN) insulin glargine-ygfn (Semglee) (100 unit/mL) subcutaneous injection [...] Herman RN - Reason: Order parameters not met)2020 (Given - Provider: Rodo Guillen RN) 0151 [...] RN) 0852 (Given - Provider: Elizabeth Herman RN)2020 (Given - Provider: Rodo Guillen RN) 0956 [...] OPEN, Routine 0851 (Given - Provider: Elizabeth Herman RN) 0952 (Given - Provider: Alyssa Bob RN) [...] on Sun09/11/22 at 2100, Until Discontinued, Routine 010 (Given - Provider: Radha Haley RN) sodium chloride 0.9 % (flush) (BD PosiFlush Normal Saline 0.9) flush 5 mL (CANCELED) 5 mL, Intravenous, 2 TIMES DAILY, First dose on Sun09/11/22 at 2100, Until Discontinued, Recovery (Recovery-Hospital Unit), Routine 010 (Given - Provider: Radha Haley RN) sodium [...] Palma RN)0743 (See Alternative - Provider: Alyssa Bob, SHAKIRA)1350 (See Alternative - Provider: Alyssa Bob, SHAKIRA) acetaminophen (Tylenol) tablet 1,000 mg(Linked Group 2) [...] Herman RN) 0150 (Given - Provider: Michele Palma RN)0743 (Given - Provider: Alyssa Bob RN)1350 (Given - Provider: Alyssa Bob RN) bisacodyl EC (Dulcolax) tablet 10 mg 10 [...] Routine documented in this encounter 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
--- OUTSIDE RECORDS SUMMARY | 2024-05-26 12:42 | XMS_ITS | Encounter Summary ---
Author Organization [facility] [place] [address] Care Team Providers Care Nurse Staff Industrial Name Role Phone oJhnHai DO Primary Care Provider [phone] Reason for Referral * Diagnostic Test (Routine) - Closed Specialty Diagnoses / Procedures Referred By Keithac t Referred To Contact Radiology Diagnoses Aneurysm of left internal carotid artery Procedures IR Embolization Cerebral Destiny Alfredo APRN [facility] [place] [place] [address] [place] [address] Referral ID Status Reason Start Date Expiration Date V isits Requested Visits Authorized [id number] Closed Specialty Service Requested 08/04/2022 02/02/2024 1 1 Reason for Visit * Auth/Cert (Routine) Specialty Diagnoses / Procedures Referred By Contac t Referred To Contact Diagnoses ANEURYSM OF LEFT INTERNAL CAROTID ARTERY Procedures PRO PERM OCCLUSION/EMBOLIZATION, PERCUT, LEATHER ROLLER @[email or web address] OCCLUSION/EMBOLIZATION FOR TUMOR DESTRUCTION Vera Townsend MD [facility] [place] [address] [place] [address] [facility] Referral ID Status Reason Start Date Expiration Date Visits Re quested Visits Authorized [id number] 1 1 Encounter Details Date Type Department Care Team (Latest Contact Info) Description 09/11/2022 12:30 PM EST - 09/11/2022 11:59 PM EST Hospital Encounter Radiology at [facility], [place] [address] Destiny Alfredo APRN [facility] [address] Aneurysm of left internal carotid artery Discharge Disposition: Home Social History Tobacco Use Types Packs/Day Years Used Date Smoking Tobacco: Every Day Cigarettes 0.3 40 Smokeless Tobacco: Never Comments:down to 5 cigs. Alcohol Use Standard Drinks/Week Comments No 0 (1 standard drink = 0.6 oz pur e alcohol) [facility] Inpatient Questions Answer Date Recorded Does Anyone [...] as needed for Wheezing. Use with spacer Insulin Tresiba FlexTouch U-200 200 unit/mL (3 mL) Insulin Pen INJECT 20 UNITS UNDER THE SKIN IN THE MORNING AND 56 AT BEDTIME 05/24/2022 09/13/2022 LANTUS SOLOSTAR U-100 INSULIN pen inject 52 units subcutaneously once daily 0 08/05/2018 09/13/2022 omeprazole (PRILOSEC) 40 mg Capsule, Delayed Release(E.C.) Take 40 mg by mouth daily. 0 03/25/2015 09/13/2022 documented as of this encounter H&P Notes * Jessica Caro PA - 09/11/2022 6:44 PM EST NEUROCRITICAL CARE HISTORY & PHYSICAL Date of Admission: 09/11/2022 12:30 PM HPI: 61 YO F w/ a PMHx of GERD, anxiety, asthma, COPD, DM, HLD, HTN, BUI, presenting for elective L ICA flow diverting stent w/ Dr. Townsend 09/11. History significant for: L ICA aneurysm found incidentally on CTA from 04/29 for dizziness work up. DSA w/ Dr. Carmen 08/04/2022 confirms 7mmx 3mm L ICA aneurysm via right groin access, closed with angioseal. IR course reportedly uncomplicated, <10mL EBL. Pt arrives to NCCU intubated and sedated given history of COPD. ROS: negative unless otherwise noted in HPI. Past Medical History: Diagnosis Date ??? Acid reflux ??? Allergy ??? Anxiety ??? Arthritis ??? Asthma ??? Diabetes ??? Dry mouth ??? Emphysema/COPD ??? High cholesterol ??? Hypertension ??? 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 SECTION 3 ??? ELBOW SURGERY Left 2 left elbow ??? IR ARTERIOGRAM CEREBRAL 08/04/2022 IR Arteriogram Cerebral 08/04/2022 Bernardo Carmen MD [facility] INTERVENTIONL RAD ??? PRO COLONOSCOPY, REMV LESN, SNARE N/A 10/10/2017 COLONOSCOPY, POLYPECTOMY, REMOVAL LESION BY SNARE (WRVU 4.67) performed by Richmond Orellana MD at [facility] ENDOSCOPY ??? PRO EXCISION SUBMAXILLARY GLAND Left 02/23/2017 EXCISION SUBMANDIBULAR (SUBMAXILLARY) GLAND-GARY (WRVU 6.14) performed by Salty Butler MD [facility] MAIN OR ??? PRO UPPER GI ENDOSCOPY, BIOPSY N/A 10/10/2017 EGD WITH BIOPSY (WRVU 2.49) performed by Richmond Orellana MD at [facility] ENDOSCOPY ??? WRIST SURGERY Left 2 left wrist Social History Tobacco Use ??? Smoking status: Every Day Packs/day: 0.25 Years: 40.00 Pack years: 10.00 Types: Cigarettes ??? Smokeless tobacco: Never ??? Tobacco comments: down to 5 cigs. Substance Use Topics ??? Alcohol use: No (Not in a hospital admission) Vital Sign Ranges: Last value Range last 24 hrs Temperature Temp: [36.3 ??C (97.3 ??F)] Heart Rate Heart Rate: [94] Blood Pressure BP: (130)/(92) Respiratory Rate Resp: [13-16] SpO2 SpO2: [98 %-99 %] Art BP BP (Arterial Line): -- Lines/Drains/Airways: Incision 08/04/22 1136 wrist non-laparascopic puncture (Active) Labs: Recent Results (from the past 24 hour(s)) POCT Glucose Result Value Ref Range POC Glucose 160 65 - 199 mg/dL Prothrombin Time Result Value Ref Range PT 11.0 9.4 - 12.5 sec INR 1.0 APTT Result Value Ref Range PTT 24 (L) 25 - 37 sec ABO/Rh Typing Result Value Ref Range ABORh Type O Pos Antibody screen Result Value Ref Range Ab Screen Interp Negative Expires at 2359 on: 09/14/2022 Hemogram Result Value Ref Range WBC 7.5 4.0 - 9.5 x10(3)/mcL RBC 5.92 (H) 4.00 - 5.21 x10(6)/mcL Hemoglobin 17.6 (H) 11.7 - 15.5 g/dL Hematocrit 54.0 (H) 35.7 - 45.8 % MCV 91.2 82.6 - 94.4 fL MCH 29.7 27.1 - 32.0 pg MCHC 32.6 31.7 - 35.0 g/dL Platelets 204 145 - 357 x10(3)/mcL RDWSD 48.4 (H) 37.0 - 46.0 fL RDWCV 14.4 (H) 11.5 - 14.1 % MPV 11.3 7.6 - 12.9 fL nRBC % Auto 0.0 % nRBC Abs Auto 0.000 0.000 - 0.000 x10(3)/mcL Differential, Automated Result Value Ref Range Neutrophils % 58.8 % Neutr Abs (ANC) 4.42 1.70 - 6.10 x10(3)/mcL Lymphocytes % 29.8 % Lymphocytes Abs 2.2 0.9 - 3.2 x10(3)/mcL Monocytes % 7.0 % Monocyte Abs 0.5 0.3 - 0.9 x10(3)/mcL Eosinophils % 3.2 % Eosinophils Abs 0.2 0.0 - 0.4 x10(3)/mcL Basophils % 0.9 % Basophils Abs 0.1 0.0 - 0.1 x10(3)/mcL Immature Gran % 0.30 % Elaina Gran Abs 0.02 0.00 - 0.04 x10(3)/mcL Blue Tube HOLD Result Value Ref Range Blue Hold Sample in lab. ABORH Recheck Status Result Value Ref Range ABORH Type Recheck Completed Type and Screen Validity Result Value Ref Range T&S only valid at [facility] Hosp P2Y12 Antiplatelet ([facility]) Result Value Ref Range P2Y12 92 PRU POCT Glucose Result Value Ref Range POC Glucose 120 65 - 199 mg/dL POCT Glucose Result Value Ref Range POC Glucose 189 65 - 199 mg/dL Imaging: No results found for this visit on 09/11/22. EKG: pending Physical Exam: General: INAD. Pt examined on propofol HEENT: Head is NC/AT. Nares patent. Neck: Full AROM CV: Regular rate, regular rhythm, normal S1/S2, no M/R/G. Lungs: CTA bilaterally, no rales, no wheezing. Abd: Soft, NT, ND. NABS throughout. Ext: No gross deformities noted. No clubbing, cyanosis, or edema. Skin: Warm and dry. No visible rashes. Neuro: Mental Status: Pt sedated, does not regard examiner, open eyes, or follow commands. CN: PERRLA, forward conjugate gaze Motor: Normal motor bulk and tone. Moves all 4 extremities to noxious stimuli Sensory: withdrawal x 4 . ASSESSMENT & PLAN: 61 YO F w/ a PMHx of GERD, anxiety, asthma, COPD, DM, HTN, BUI, presenting for L ICA flow diverting stent w/ Dr. Townsend, POD 0. Operative course uncomplicated however post operatively was noted to have significant facial edema without a cuff leak and was therefore left intubated. # Neuro- > L ICA aneurysm s/p flow diverting stent -DAPT w/ ASA and Plavix -neurochecks/ neurovascular checks per protocol, then q1hr NC - HOB > 30 deg -sedation: propofol, wean as able. Could switch to precedex if needed -analgesia: tylenol PRN -home meds: continue lyrica, paroxetine # CV - >hx of HTN -Post operative hypotension, likely 2/2 to propofol. Held home lisinopril for now in light of this.Can resume if indicated. - MAP goal 70-90. # Pulm - >hx of COPD, asthma >intubated for procedure, left intubated post procedure given facial edema, lack of cuff leak (7.0 tube) -AMV protocol -CXR to confirm ETT -duonebs PRN -steroid trial with solumedrol - goal O2 sats > 92% - IS at bedside # GI - >hx of BUI -surveillance LFT's - regular diet - bowel reg -GI ppx w/ PPI # FEN/ - - daily BMP, Mg, PO4 -remove conteh # Heme - - daily CBC -DVT ppx w/ SCD's, chemoppx held for now # Endo - > hx of insulin dependent DM -MISS for now given NPO status, uptitrate as needed - goal glucose 120-180 -hold home Jardiance # ID - - for temp > 38.4 --> UA, CXR, blood cx, sputum cx - tylenol PRN # ICU Analgesia Keep Sedation Wean as tolerated HOB > 30 degrees SBT Intubated, SBT Not performed/Excluded: Predefined weaning plan VAP Bundle HOB > 30-45 degrees Daily SAT/SBT DVT Prophylaxis Stress Ulcer Prophylaxis Chlorhexidine BID Frequent Oral Care Ulcer Prophylaxis PPI Bowel Regimen Adequate Feeding NPO DVT Prophylaxis SCDs and SCDs only, chemoppx on hold Glucose 120-180 Controlled on current insulin regimen De-escalation of Antibiotics Not applicable Indwelling Tubes + Lines Peripheral IV Skin Daily Nursing Skin Breakdown Risk Assessment Rehab Services Consulted PT/OT: Not indicated BACTERIOLOGIST DAIRY: Not indicated Family Meeting in Last 5 Days No Code Status - Attempt Cardiopulmonary Resuscitation - Inpatient Dispo - ICU GOMEZ Alvarez NCCU Team Pager #[phone] documented in this encounter Plan of Treatment Not on file documented as of this encounter Procedures Procedure Name Priority Date/Time Associated Diagnosis Comments IR EMBOLIZATION CEREBRAL Routine 09/11/2022 5:41 PM EST Aneurysm of left internal carotid artery documented in this encounter Results * IR Embolization Cerebral (09/11/2022 5:41 PM EST) Anatomical Region Laterality Modality Spine X-Ray Angiograph y Impressions 2022 9:53 AM EST 1. ??Today's cerebral angiogram demonstrates uncomplicated placement of a flow diverting stent for left ICA supraclinoid aneurysm embolization. 2. ??3-D rotational angiographic data was reformatted on a dedicated workstation by ??Kristian, attending physician. 3. ??Right groin hemostasis achieved with Angio-Seal 6F vascular closure device. The right common femoral artery and right dorsalis pedis pulses were palpable at the conclusion of the procedure. 4. ??Findings discussed with the patient's family ??at the time of completion of the procedure. PLAN: Per anesthesia team, plan to leave the patient intubated for lack of cuff leak and respiratory acidosis. Wake up exam performed in the angio suite with patient moving all four limbs purposefully. Plan for gradual wake up exam in the ICU to assess for following commands. Transfer to ICU. ATTESTATION Signer name: Vera Townsend MD I attest that I was present for the entire procedure. I reviewed the stored images and agree with the report as written. Sedation attestation: N/A Thank you for letting us participate in the care of this patient. ??If you are a health care provider and have any questions regarding this report, please contact the number below. ??For patients who have questions please contact the health elderly caregiver that requested your imaging first. ? Narrative 2022 9:53 AM EST PROCEDURE NAME: TEMPORARY CLINICAL HISTORY: The patient is a 62-year-old woman with an unruptured left ICA supraclinoid aneurysm. Plan for flow diverting stent embolization. COMPARISON: Diagnostic cerebral angiogram August 04, 2022 OPERATING PHYSICIANS: 1. ??Rich Butt MD, Neurosurgery Resident 2. ??Vera Townsend MD, Interventional Neuroradiology Attending TECHNICAL DETAILS: ACCESS: Right common femoral artery CLOSURE: Angio-Seal 6F vascular closure device MEDICATIONS: Heparin 5000 U IA Nitroglycerin 200mcg IA CONTRAST VOLUME: 75 ml of Visipaque 320 contrast. RADIATION EXPOSURE: Fluoro time: 23.9 mins, Total Air Kerma (K)*: 1312 mGy ANESTHESIA: ??General anesthesia was administered by the adult anesthesiology service. VESSELS SELECTED: 1. ??Left internal carotid artery 2. ??Left middle cerebral artery VIEWS OBTAINED: 1. ??Single fluoroscopic image of the right hip. 2. ??Right common femoral artery, AP pelvic view (series 2) 3. ??Left common carotid artery, AP and lateral cervical roadmap images (series 3) 4. ??Left common carotid artery, AP and lateral cervical views (series 4) 5. ??Left internal carotid artery, AP and lateral intracranial views (series 5) 6. ??Left internal carotid artery, 3-D reconstruction images (series 6) 7. ??Left internal carotid artery, magnified AP and lateral oblique working projections (series 7) 8. ??Left internal carotid artery, AP and lateral roadmap images (series 8-9) 9. ??Left internal carotid artery, AP and lateral working projections, post stent placement (series 10) 10. ??Left internal carotid artery, AP and lateral working projections, post nitroglycerin (series 11-12) 11. ??Left internal carotid artery, AP and lateral global views (series 13) COMPLICATIONS: None. ESTIMATED BLOOD LOSS: < 10ml. ?? INTERVENTION: 1. ??Flow diverting stent embolization of left ICA aneurysm EQUIPMENT: ?? 1. ??Micropuncture access kit. 2. ??0.035 Bentson Guidewire. 3. ??6-[place], 80-cm NeuronMax 4. ??5-[place] VERT catheter. 5. ??Phenom Plus distal access catheter 6. ??Phenom 27 microcatheter. 7. ??0.018 Weston hydrophilic guidewire. 8. ??Pipeline Shield flow diverting stent 4.25mm x 16mm 9. ??6-[place] Angio-Seal Device ?? PROCEDURE COMMENTS: After explaining the risks and benefits of the procedure to the patient, written informed consent was obtained and placed in the patient's chart. Given the aneurysm location, morphology, patient's anatomy, clinical condition, and medical comorbidities, endovascular treatment was considered a safe, effective, and reasonable option. Specifically considered were the treatment alternatives of open surgical procedures, non-invasive medical management, and no treatment. Endovascular treatment was further discussed in detail including the risk. These include, but are not limited to, bleeding, infection, arterial injury, groin hematoma, pseudoaneurysm, hemorrhagic or embolic stroke resulting in sensory loss, paralysis, language dysfunction, and vision loss, as well as contrast allergy, nephropathy, cardiopulmonary dysfunction, coma, and/or . ??The patient understood the risks and wished to proceed with endovascular treatment. The patient was brought to the angiography suite and placed in the supine position on the angiography table. General anesthesia was induced by the adult anesthesiology service. Both groins were prepped and draped in the usual sterile fashion. ??A hard stop time-out was then performed to verify the patient's identity, the planned procedure, and procedure location. After proper patient identification and verification of the planned procedure, the procedure continued. A micropuncture needle was used to access the right common femoral artery without difficulty under ultrasound guidance. ??The micropuncture needle was then exchanged for an introducer followed by a 6-[place]er ??80 cm vascular sheath utilizing a [employer] wire. The sheath was then double flushed and hooked to heparinized saline via pressure bag. ??Subsequently a 5-[place]er ??VERT catheter was used to selectively catheterize the vessels enumerated above. Multiple angiographic runs were performed. 3-D rotational angiographic data was reformatted on a dedicated workstation by Dr. Townsend to obtain a 3-D angiogram. INTERVENTION: For the intervention portion of the procedure, all equipment manipulations were performed using continuous fluoroscopic and roadmap guidance. After positioning the sheath in the proximal left internal carotid artery, the intragraft catheter was removed. The distal access catheter and microcatheter were double flushed and hooked to a heparinized saline via pressure bag. These were navigated over a microwire to select the distal M1 segment in preparation for flow diverting stent deployment. The microwire was removed. The selected size of flow diverting stent was advanced without difficulty to the tip of the microcatheter and the distal end of the stent was opened in the M1 segment. The stent and microcatheter were then withdrawn to position the distal end of the stent in the supraclinoid ICA distal to the neck of the aneurysm. The remainder of the pontine stent was then deployed across the neck of the aneurysm into the cavernous segment of the ICA without difficulty. Following stent deployment, the microcatheter was advanced to recapture the pusher wire, and the distal access catheter was advanced over the microcatheter and back to facilitate good wall apposition of the stent. Stent positioning was felt to be satisfactory after angiographic evaluation. At the conclusion of the procedure, all catheters and equipment were removed and the right groin was reprepped and draped in the usual sterile fashion. ??A 6 [place] Angio-Seal closure device was subsequently prepared and advanced over a wire and deployed successfully with immediate hemostasis. ??A sterile dressing was placed. ??The dorsalis pedis pulses were intact bilaterally at the conclusion of the procedure. The patient tolerated the procedure well and left interventional suite in stable condition. FINDINGS: The following is a detailed description of each angiographic run: SINGLE FLUOROSCOPIC IMAGE OF THE RIGHT HIP. A single spot radiograph was obtained after the groin access into the right common femoral artery had been achieved demonstrating the point of groin puncture to be along the medial portion of the femoral head in the lower third making it an appropriate site for the groin access being below the inguinal ligament. RIGHT COMMON FEMORAL ARTERY, AP PELVIC VIEW (SERIES 2) Injection of the right common femoral artery shows puncture site above the level of the bifurcation of the femoral artery and below the takeoff of the inferior epigastric artery, suitable for placement of closure device. There is no evidence of vessel injury, dissection, or flow limitation on this injection. LEFT COMMON CAROTID ARTERY, AP AND LATERAL CERVICAL ROADMAP IMAGES (SERIES 3) Roadmap images of the left common carotid artery were obtained for angiographic evaluation and distal artery selection planning. There is no abnormality of the left common carotid artery. On the AP view there is a suggestion of decreased contrast opacification in a linear fashion within the carotid bulb, prompting formal angiographic evaluation series 4 which demonstrates no abnormality. The left internal carotid artery is within normal course and caliber. The branches of the left external carotid artery are patent. LEFT COMMON CAROTID ARTERY, AP AND LATERAL CERVICAL VIEWS (SERIES 4) There is no abnormality of the left common carotid artery or carotid bulb. ?? There is no abnormality of the cervical segment of the left internal carotid artery. ?? The left external artery and its branches are widely patent. LEFT INTERNAL CAROTID ARTERY, AP AND LATERAL INTRACRANIAL VIEWS (SERIES 5) The distal cervical, petrous, and cavernous segments of the left internal carotid artery are smooth and normal in course and caliber. Redemonstration of the ICA supraclinoid superiorly projecting aneurysm, which appears wider at the apex of the dome than prior angiographic evaluation. ??The ophthalmic, posterior communicating, and anterior choroidal arteries are patent. ?? The left anterior cerebral artery is smooth and normal in course and caliber. ??There is a patent anterior communicating artery complex, and there is flow into the contralateral right anterior cerebral artery. ??The left middle cerebral artery is smooth and normal in course and caliber. ??The parenchymal and venous phases are normal. ?? The dural venous sinuses are patent. ?? No other aneurysms or vascular malformations are identified. LEFT INTERNAL CAROTID ARTERY, 3-D RECONSTRUCTION IMAGES (SERIES 6) The 3-D rotational angiographic data was reformatted on a dedicated workstation by Dr. Townsend to obtain a 3-D angiogram. 3-D reconstructed images were essential in obtaining appropriate measurements for flow diverting stent selection, as well as for choosing appropriate working views. LEFT INTERNAL CAROTID ARTERY, MAGNIFIED AP AND LATERAL OBLIQUE WORKING PROJECTIONS (SERIES 7) AP projection demonstrates the neck of the aneurysm as well as the landing zone for opening the prior plain embolization device in the left middle cerebral artery. The lateral projection defines the proximal and distal planned landing zones for the stent. No significant interval change in comparison with prior angiographic evaluation. LEFT INTERNAL CAROTID ARTERY, AP AND LATERAL ROADMAP IMAGES (SERIES 8-9) Roadmap images of the left internal carotid artery were obtained for angiographic evaluation and distal artery selection planning. No significant interval change in comparison with prior angiographic evaluation. LEFT INTERNAL CAROTID ARTERY, AP AND LATERAL WORKING PROJECTIONS, POST STENT PLACEMENT (SERIES 10) Interval placement of a flow diverting stent across the neck of the supraclinoid aneurysm. There is good wall apposition of the stent, particularly around the neck of the aneurysm. Some limitation of contrast washout from the left ICA, likely secondary to catheter related vasospasm. LEFT INTERNAL CAROTID ARTERY, AP AND LATERAL WORKING PROJECTIONS, POST NITROGLYCERIN (SERIES 11-12) Interval resolution of the flow limitation in the cervical left ICA after nitroglycerin. No evidence of intimal flap, intraluminal thrombus, or flow limitation. No evidence of thromboembolic complication. Stable position of the stent across the aneurysm neck with good wall apposition. Contrast stasis noted within the aneurysm dome. LEFT INTERNAL CAROTID ARTERY, AP AND LATERAL GLOBAL VIEWS (SERIES 13) The distal cervical, petrous, and cavernous segments of the left internal carotid artery are smooth and normal in course and caliber. Contrast stasis within the ICA supraclinoid aneurysm. Stable position of the flow diverting stent. ??The ophthalmic, posterior communicating, and anterior choroidal arteries are patent. ?? The left anterior cerebral artery is smooth and normal in course and caliber. ??There is a patent anterior communicating artery complex, and there is flow into the contralateral right anterior cerebral artery. ??The left middle cerebral artery is smooth and normal in course and caliber. ??The parenchymal and venous phases are normal. ?? The dural venous sinuses are patent. ?? No other aneurysms or vascular malformations are identified. Procedure Note Vera Townsend MD - 2022 PROCEDURE NAME: TEMPORARY CLINICAL HISTORY: The patient is a 62-year-old woman with an unrupturedleft ICA supraclinoid aneurysm. Plan for flow diverting stent embolization. COMPARISON: Diagnostic cerebral angiogram August 04, 2022 OPERATING PHYSICIANS: 1. Rich Butt MD, Neurosurgery Resident 2. Vera Townsend MD, Interventional Neuroradiology Attending TECHNICAL DETAILS: ACCESS: Right common femoral artery CLOSURE: Angio-Seal 6F vascular closure device MEDICATIONS: Heparin 5000 U IA Nitroglycerin 200mcg IA CONTRAST VOLUME: 75 ml of Visipaque 320 contrast. RADIATION EXPOSURE: Fluoro time: 23.9 mins, Total Air Kerma (K)*: 1312 mGy ANESTHESIA: General anesthesia was administered by the adultanesthesiology service. VESSELS SELECTED: 1. Left internal carotid artery 2. Left middle cerebral artery VIEWS OBTAINED: 1. Single fluoroscopic image of the right hip. 2. Right common femoral artery, AP pelvic view (series 2) 3. Left common carotid artery, AP and lateral cervical roadmap images(series 3) 4. Left common carotid artery, AP and lateral cervical views (series 4) 5. Left internal carotid artery, AP and lateral intracranial views(series 5) 6. Left internal carotid artery, 3-D reconstruction images (series 6) 7. Left internal carotid artery, magnified AP and lateral obliqueworking projections (series 7) 8. Left internal carotid artery, AP and lateral roadmap images (series8-9) 9. Left internal carotid artery, AP and lateral working projections, poststent placement (series 10) 10. Left internal carotid artery, AP and lateral working projections,post nitroglycerin (series 11-12) 11. Left internal carotid artery, AP and lateral global views () COMPLICATIONS: None. ESTIMATED BLOOD LOSS: < 10ml. INTERVENTION: 1. Flow diverting stent embolization of left ICA aneurysm EQUIPMENT: 1. Micropuncture access kit. 2. 0.035 Bentson Guidewire. 3. 6-[place], 80-cm NeuronMax 4. 5-[place] VERT catheter. 5. Phenom Plus distal access catheter 6. Phenom 27 microcatheter. 7. 0.018 Weston hydrophilic guidewire. 8. Pipeline Shield flow diverting stent 4.25mm x 16mm 9. 6-[place] Island[place] Angio-Seal Device PROCEDURE COMMENTS: After explaining the risks and benefits of the procedure to the patient,written informed consent was obtained and placed in the patient's chart. Giventhe aneurysm location, morphology, patient's anatomy, clinical condition,and medical comorbidities, endovascular treatment was considered a safe,effective, and reasonable option. Specifically considered were the treatmentalternatives of open surgical procedures, non-invasive medical management, and notreatment. Endovascular treatment was further discussed in detail including the risk.These include, but are not limited to, bleeding, infection, arterial injury,groin hematoma, pseudoaneurysm, hemorrhagic or embolic stroke resulting insensory loss, paralysis, language dysfunction, and vision loss, as well ascontrast allergy, nephropathy, cardiopulmonary dysfunction, coma, and/or .The patient understood the risks and wished to proceed with endovasculartreatment. The patient was brought to the angiography suite and placed in thesupine position on the angiography table. [facility] Both groins were prepped and draped in the usualsterile fashion. A hard stop time-out was then performed to verify thepatient's identity, the planned procedure, and procedure location. After properpatient identification and verification of the planned procedure, the procedure continued. A micropuncture needle was used to access the right common femoralartery without difficulty under ultrasound guidance. The micropuncture needlewas then exchanged for an introducer followed by a 6-[place]er 80 cm vascularsheath utilizing a Bentson wire. The sheath was then double flushed and hookedto heparinized saline via pressure bag. Subsequently a 5-[place] VERTcatheter was used to selectively catheterize the vessels enumerated above. Multiple angiographic runs were performed. 3-D rotational angiographic data was reformatted on a dedicatedworkstation by Dr. Townsend to obtain a 3-D angiogram. INTERVENTION: For the intervention portion of the procedure, all equipment manipulationswere performed using continuous fluoroscopic and roadmap guidance. After positioning the sheath in the proximal left internal carotid artery,the intragraft catheter was removed. The distal access catheter andmicrocatheter were double flushed and hooked to a heparinized saline via pressure bag.These were navigated over a microwire to select the distal M1 segment inpreparation for flow diverting stent deployment. The microwire was removed. Theselected size of flow diverting stent was advanced without difficulty to the tip ofthe microcatheter and the distal end of the stent was opened in the [id number]. The stent and microcatheter were then withdrawn to position the distal end ofthe stent in the supraclinoid ICA distal to the neck of the aneurysm. Theremainder of the pontine stent was then deployed across the neck of the aneurysminto the cavernous segment of the ICA without difficulty. Following stentdeployment, the microcatheter was advanced to recapture the pusher wire, and the distalaccess catheter was advanced over the microcatheter and back to facilitate goodwall apposition of the stent. Stent positioning was felt to be satisfactoryafter angiographic evaluation. At the conclusion of the procedure, all catheters and equipment wereremoved and the right groin was reprepped and draped in the usual sterile fashion. A6 [place] Angio-Seal closure device was subsequently prepared and advancedover a wire and deployed successfully with immediate hemostasis. A steriledressing was placed. The dorsalis pedis pulses were intact bilaterally at theconclusion of the procedure. The patient tolerated the procedure well and left interventional suite instable condition. FINDINGS: The following is a detailed description of each angiographic run: SINGLE FLUOROSCOPIC IMAGE OF THE RIGHT HIP. A single spot radiograph was obtained after the groin access into theright common femoral artery had been achieved demonstrating the point of groin puncture to be along the medial portion of the femoral head in the lowerthird making it an appropriate site for the groin access being below theinguinal ligament. RIGHT COMMON FEMORAL ARTERY, AP PELVIC VIEW (SERIES 2) Injection of the right common femoral artery shows puncture site above thelevel of the bifurcation of the femoral artery and below the takeoff of theinferior epigastric artery, suitable for placement of closure device. There is no evidence of vessel injury, dissection, or flow limitation on thisinjection. LEFT COMMON CAROTID ARTERY, AP AND LATERAL CERVICAL ROADMAP IMAGES (SERIES3) Roadmap images of the left common carotid artery were obtained forangiographic evaluation and distal artery selection planning. There is no abnormalityof the left common carotid artery. On the AP view there is a suggestion ofdecreased contrast opacification in a linear fashion within the carotid bulb,prompting formal angiographic evaluation series 4 which demonstrates no abnormality.The left internal carotid artery is within normal course and caliber. Thebranches of the left external carotid artery are patent. LEFT COMMON CAROTID ARTERY, AP AND LATERAL CERVICAL VIEWS (SERIES 4) There is no abnormality of the left common carotid artery or carotid bulb. There is no abnormality of the cervical segment of the left internalcarotid artery. The left external artery and its branches are widely patent. LEFT INTERNAL CAROTID ARTERY, AP AND LATERAL INTRACRANIAL VIEWS (SERIES5) The distal cervical, petrous, and cavernous segments of the leftinternal carotid artery are smooth and normal in course and caliber.Redemonstration of the ICA supraclinoid superiorly projecting aneurysm, which appears widerat the apex of the dome than prior angiographic evaluation. The ophthalmic,posterior communicating, and anterior choroidal arteries are patent. The leftanterior cerebral artery is smooth and normal in course and caliber. There is apatent anterior communicating artery complex, and there is flow into thecontralateral right anterior cerebral artery. The left middle cerebral artery is smoothand normal in course and caliber. The parenchymal and venous phases arenormal. The dural venous sinuses are patent. No other aneurysms or vascular malformations are identified. LEFT INTERNAL CAROTID ARTERY, 3-D RECONSTRUCTION IMAGES (SERIES 6) The 3-D rotational angiographic data was reformatted on a dedicatedworkstation by Dr. Townsend to obtain a 3-D angiogram. 3-D reconstructed images wereessential in obtaining appropriate measurements for flow diverting stent selection,as well as for choosing appropriate working views. LEFT INTERNAL CAROTID ARTERY, MAGNIFIED AP AND LATERAL OBLIQUE WORKING PROJECTIONS (SERIES 7) AP projection demonstrates the neck of the aneurysm as well as the landingzone for opening the prior plain embolization device in the left middlecerebral artery. The lateral projection defines the proximal and distal plannedlanding zones for the stent. No significant interval change in comparison withprior angiographic evaluation. LEFT INTERNAL CAROTID ARTERY, AP AND LATERAL ROADMAP IMAGES (SERIES 8-9) Roadmap images of the left internal carotid artery were obtained for angiographic evaluation and distal artery selection planning. Nosignificant interval change in comparison with prior angiographic evaluation. LEFT INTERNAL CAROTID ARTERY, AP AND LATERAL WORKING PROJECTIONS, POSTSTENT PLACEMENT (SERIES 10) Interval placement of a flow diverting stent across the neck of thesupraclinoid aneurysm. There is good wall apposition of the stent, particularly aroundthe neck of the aneurysm. Some limitation of contrast washout from the leftICA, likely secondary to catheter related vasospasm. LEFT INTERNAL CAROTID ARTERY, AP AND LATERAL WORKING PROJECTIONS, POST NITROGLYCERIN (SERIES 11-12) Interval resolution of the flow limitation in the cervical left ICAafter nitroglycerin. No evidence of intimal flap, intraluminal thrombus, orflow limitation. No evidence of thromboembolic complication. Stable position ofthe stent across the aneurysm neck with good wall apposition. Contrast stasisnoted within the aneurysm dome. LEFT INTERNAL CAROTID ARTERY, AP AND LATERAL GLOBAL VIEWS (SERIES 13) The distal cervical, petrous, and cavernous segments of the leftinternal carotid artery are smooth and normal in course and caliber. Contraststasis within the ICA supraclinoid aneurysm. Stable position of the flowdiverting stent. The ophthalmic, posterior communicating, and anterior choroidalarteries are patent. The left anterior cerebral artery is smooth and normal incourse and caliber. There is a patent anterior communicating artery complex, andthere is flow into the contralateral right anterior cerebral artery. The leftmiddle cerebral artery is smooth and normal in course and caliber. Theparenchymal and venous phases are normal. The dural venous sinuses are patent. Noother aneurysms or vascular malformations are identified. IMPRESSION 1. Today's cerebral angiogram demonstrates uncomplicated placement of aflow diverting stent for left ICA supraclinoid aneurysm embolization. 2. 3-D rotational angiographic data was reformatted on a dedicatedworkstation by Dr. Townsend, attending physician. 3. Right groin hemostasis achieved with Angio-Seal 6F vascular closuredevice. The right common femoral artery and right dorsalis pedis pulses werepalpable at the conclusion of the procedure. 4. Findings discussed with the patient's family at the time ofcompletion of the procedure. PLAN: Per anesthesia team, plan to leave the patient intubated for lack of cuffleak and respiratory acidosis. Wake up exam performed in the angio suite withpatient moving all four limbs purposefully. Plan for gradual wake up exam in theICU to assess for following commands. Transfer to ICU. ATTESTATION Signer name: Vera Townsend MD I attest that I was present for the entire procedure. I reviewed thestored images and agree with the report as written. Sedation attestation: N/A Thank you for letting us participate in the care of this patient. If youare a health care provider and have any questions regarding this report,please contact the number below. For patients who have questions please contactthe health elderly caregiver that requested your imaging first. Destiny Alfredo WOOD MACHINIST IMG IR ORDERABLES documented in this encounter Visit Diagnoses Diagnosis Aneurysm of left internal carotid artery documented in this encounter Administered Medications Inactive Administered Medications - up to 3 most recent administrations Medication Order MAR Action Action Date Dose Rate Site iodixanoL (Visipaque) (320 mg/mL) injection solution 1-400 mL 1-400 mL, Intra-arterial, ONCE PRN, 1 dose, Starting on Sun09/11/22 at 1624, Until Sun09/11/22 at 1624, Per Protocol, For intra-procedural use by proceduralist., Angio/IR (Intra-Procedure), Routine Given 09/11/2022 4:24 PM EST 75 mLs documented in this encounter Care Teams Nurse Staff Industrial Relationship Specialty Start Date End Date Hai Lopez DO [address] [place] [address] PCP - General Family Medicine 10/10/17 documented as of this encounter
--- OUTSIDE RECORDS SUMMARY | 2024-05-26 12:42 | XMS_ITS | Encounter Summary ---
Author Organization [facility] Address [facility] [place] [address] Care Team Providers Care Antichecking Iron Worker Name Role Phone Hai Lopez Corey MOORE Primary Care Provider Encounter Details Date Type Department Care Team (Late st Contact Info) Description 03/16/2023 10:30 AM EDT Office [place] [id number] Yuliana Hernandez MD [facility] [place] [address] History of hepatitis C; BUI (nonalcoholic steatohepatitis) Social History Tobacco Use Types Packs/Day Years Used Date Smoking Tobacco: Every Day Cigarettes 0.3 40 Smokeless Tobacco: Never Comments:down to 5 cigs. Alcohol Use Standard Drinks/Week Comments No 0 (1 standard drink = 0.6 oz pur e alcohol) REPLACED BY [facility] Inpatient Questions Answer Date Recorded Does Anyone [...] Sign Reading Time Taken Comments Blood Pressure 121/62 03/16/2023 9:43 AM EDT Pulse 97 03/16/2023 9:43 AM EDT Temperature - - Respiratory Rate - - Oxygen Saturation - - Inhaled Oxygen Concentration - - Weight 92.8 kg (204 lb 9.6 oz) 03/16/2023 9:43 A M EDT Height 165.1 cm (5' 5) 03/16/2023 9:43 AM EDT Body Mass Index 34.05 03/16/2023 9:43 AM EDT documented in this encounter Progress Notes * Yuliana Hernandez MD - 03/16/2023 10:30 AM EDT Gastroenterology and Hepatology Follow Up Note Patient: Mary Beth Holman : 1960 Provider: Yuliana Hernandez MD Problem List: #1 F3 liver fibrosis, SVR Hepatitis C #2 BUI - Fibroscan 09/2017: 10.2 kPa - EGD 10/2017: Negative for varices - CT 08/2017: Negative for HCC - U/S 02/2019: negative for HCC - U/S 08/2019: negative for HCC - U/S 03/16/2023: negative for HCC Interval History: She has been feeling OK recently. No jaundice, ascites, HE, or GI bleeding. Current Outpatient Medications Medication Sig Dispense Refill fluticasone propionate (Flonase) 50 mcg/actuation [place], Suspension 2 sprays by Each Nare route daily. verapamiL (Calan) 40 mg tablet Take 40 mg by mouth 2 times daily. Insulin Tresiba FlexTouch U-200 200 unit/mL (3 mL) Insulin Pen Inject 20 Units subcutaneously everyevening. acetaminophen (Tylenol) 500 mg Tablet Take 2 tablets by mouth every 6 hours as needed for Pain (mild pain (1-3)). 30 tablet 1 aspirin 81 mg Tablet, Chewable Take 81 mg by mouth daily. 30 tablet 3 multivitamin Capsule Take 1 capsule by mouth daily. clopidogreL (Plavix) 75 mg Tablet Take 1 tablet by mouth daily. Start 14 days prior to aneurysm procedure. 90 tablet 3 pantoprazole EC (Protonix) 40 mg Tablet, Delayed Release (E.C.) Take 1 tablet by mouth daily. Start14 days prior to aneurysm procedure. Stop taking omeprazole when you start this medication. 90 tablet 3 pregabalin (LYRICA) 150 mg Capsule Take by mouth 2 times daily. ProAir RespiClick 90 mcg/actuation Aerosol Powdr Breath Activated INHALE TWO PUFFS BY MOUTH EVERY 4HOURS NEEDED FOR WHEEZING OR SHORTNESS OF BREATH meclizine (Antivert) 25 mg Tablet Take by [...] as needed. ONETOUCH ULTRA TEST Strip 0 ONE TOUCH DELICA 33 gauge Misc 0 lisinopril (PRINIVIL;ZESTRIL) 20 mg Tablet Take 20 mg by mouth daily. 0 albuterol (PROVENTIL HFA;VENTOLIN HFA;PROAIR) 90 mcg/actuation HFA Aerosol Inhaler Inhale 2 puffs into the lungs every 4 hours as needed for Wheezing. Use with spacer No current facility-administered medications for this visit. Vitals: 03/16/23 0943 BP: 121/62 BP Location ([facility]): Left arm Patient Position: Sitting BP Cuff Sizes: Large Adult (32-43 cm) Pulse: 97 Weight: 92.8 kg (204 lb 9.6 oz) Height: 165.1 cm (5' 5) Body mass index is 34.05 kg/m??. Exam: Looks well Mild tenderness in the epigastric and RUQ on palpation, negative Becerril's and Carnett's sign Assessment and Plan: #1Steatohepatitis with grade 3 fibrosis #2 Hep C SVR #3 BUI Liver function is stable. U/S negative for HCC. Labs and U/S at [facility] in 09/2023. Follow up visit with labs and ultrasound in 03/2024. Yuliana Hernandez MD Section of Gastroenterology & Hepatology [address] [place], [place] [id number] Time spent reviewing records prior to this encounter: 5 minutes Time spent during encounter with patient including counselin minutes Time spent documenting encounter after office visit: 5 minutes Approximate total time devoted to this single encounter on the day of the encounter: 20 minutes Cc: Hai Lopez DO documented in this encounter Plan of Treatment Not on file documented as of this encounter Visit Diagnoses Diagnosis History of hepatitis C Personal history of other infectious and parasitic disease BUI (nonalcoholic steatohepatitis) Other chronic nonalcoholic liver disease documented in this encounter Care Teams Antichecking Iron Worker Relationship Specialty Start Date End Date Hai Lopez DO [address] [place] [address] PCP - General Family Medicine 10/10/17 documented as of this encounter
--- OUTSIDE RECORDS SUMMARY | 2024-05-26 12:42 | XMS_ITS | Encounter Summary ---
Author Organization [facility] [place] [address] Care Team Providers Care Director Post Name Role Phone ChengrosemaryHai DO Primary Care Provider [phone] Reason for Referral * Diagnostic Test (Routine) - Closed Specialty Diagnoses / Procedures Referred By Contac t Referred To Contact Radiology Diagnoses Aneurysm of left internal carotid artery Procedures CT Angiogram [place] Vera Townsend MD [facility] [place] [address] [place] [address] [facility] [place] [address] Referral ID Status Reason Start Date Expiration Date V isits Requested Visits Authorized [id number] Closed Specialty Service Requested 09/27/2022 03/30/2024 1 1 Encounter Details Date Type Department Care Team (Late st Contact Info) Description 09/27/2022 2:20 PM EDT [place] [address] Vera Townsend MD [facility] [place] [place] [address] Aneurysm of left internal carotid artery Social [...] Sign Reading Time Taken Comments Blood Pressure 134/86 09/27/2022 2:24 PM EDT Pulse 102 09/27/2022 2:24 PM EDT Temperature 36.3 ??C (97.3 ??F) 09/27/2022 2:24 PM ED T Respiratory Rate 17 09/27/2022 2:24 PM EDT Oxygen Saturation 96% 09/27/2022 2:24 PM EDT Inhaled Oxygen Concentration - - Weight 91.5 kg (201 lb 12.8 oz) 09/27/2022 2:24 PM EDT Height 165.1 cm (5' 5) 09/27/2022 2:24 PM EDT Body Mass Index 33.58 09/27/2022 2:24 PM EDT documented in this encounter Progress Notes * Vera Townsend MD - 09/27/2022 2:20 PM EDT Cerebrovascular & Neurosurgery Clinic Note Patient Mary Beth Holman 1960 DATE OF VISIT: 09/27/2022 REASON FOR VISIT: F/u after ICA stenting for supraclinoid aneurysm RELEVANT HISTORY: Mary Beth Holman is a 62 y.o.yo smoker with COPD, HTN, HLD, BUI, and unruptured left ICA supraclinoid aneurysm that was treated on 09/11/2022 with flow diverting stenting. She tolerated the procedure well and was weaned from supplemental O2 prior to discharge. SUBJECTIVE: She is taking aspirin and plavix as prescribed. She has been doing well with no concerning neurologic symptoms. Groin site healing well. PAST MEDICAL HISTORY: Past Medical History: Diagnosis Date ??? Acid reflux ??? Allergy ??? Anxiety ??? Arthritis ??? Asthma ??? Diabetes ??? Dry mouth ??? Emphysema/COPD ??? High cholesterol ??? Hypertension ??? 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 SECTION 3 ??? ELBOW SURGERY Left 2 left elbow ??? IR ARTERIOGRAM CEREBRAL 08/04/2022 IR Arteriogram Cerebral 08/04/2022 Bernardo Carmen MD [facility] INTERVENTIONL RAD ??? IR EMBOLIZATION CEREBRAL 09/11/2022 IR Embolization Cerebral 09/11/2022 Vera Townsend MD [facility] INTERVENTIONL RAD ??? PRO COLONOSCOPY, REMV LESN, SNARE N/A 10/10/2017 COLONOSCOPY, POLYPECTOMY, REMOVAL LESION BY SNARE (WRVU 4.67) performed by Richmond Orellana MD at [facility] ENDOSCOPY ??? PRO EXCISION SUBMAXILLARY GLAND Left 02/23/2017 EXCISION SUBMANDIBULAR (SUBMAXILLARY) GLAND-GARY (WRVU 6.14) performed by Salty Butler MD [facility] OR ??? PRO PERM OCCLUSION/EMBOLIZATION, PERCUT, BOND CLERK N/A 09/11/2022 @TRANSCATHETER OCCLUSION/EMBOLIZATION FOR TUMOR DESTRUCTION (WRVU 20.12) performed by Vera Townsend MD at [facility] SALLY ??? PRO UPPER GI ENDOSCOPY, BIOPSY N/A 10/10/2017 EGD WITH BIOPSY (WRVU 2.49) performed by Richmond Orellana MD at [facility] ENDOSCOPY ??? WRIST SURGERY Left 2 left wrist OBJECTIVE: BP 134/86 (BP Location (NBP): Right arm, Patient Position: Sitting, BP Cuff Sizes: Adult (25-34 cm)) Pulse (!) 102 Temp 36.3 ??C (97.3 ??F) (Temporal) Resp 17 Ht 165.1 cm (5' 5) Wt 91.5 kg(201 lb 12.8 oz) SpO2 96% BMI 33.58 kg/m?? RELEVANT FINDINGS ON NEUROLOGIC EXAMINATION: No focal deficits DETAILED NEUROLOGIC EXAMINATION: MENTAL STATUS: Awake, alert, appropriate. Oriented x3 SPEECH: Fluent and without dysarthria or aphasia CRANIAL NERVES: Visual webber intact x 4 quadrants in L eye. EOMI without subjective diplopia. Facial sensation & motion intact & symmetric. Hearing intact to finger rub bilaterally. Palatal elevation and tongue protrusion midline. 5/5 shoulder shrug. MOTOR: 5/5 BUE without drift. 5/5 BLE. SENSORY: SILT throughout. CEREBELLAR: No dysmetria on kziqte-yk-cyhm testing GAIT: Toe, heel, and tandem walks without difficulty. CURRENT MEDICATIONS: PARoxetine, acetaminophen, albuteroL, albuterol sulfate, aspirin, blood sugar diagnostic strips, clopidogreL, empagliflozin, insulin degludec, insulin lispro, insulin needles (disposable), lancets, lisinopriL, meclizine, multivitamin, pantoprazole EC, and pregabalin ASSESSMENT & PLAN: The patient is doing very well s/p flow diverting embolization. We discussed the need to continue dual anti-platelet therapy and that we will take a CTA head in 12/2022 to assess the aneurysm. Timing of an angiogram after will depend on the CTA results. We discussed the signs and symptoms of aneurysm rupture including severe, intractable headache, without or without new neurologic deficit. The patient understands to seek emergent help with these or any other concerning neurologic symptoms. PLAN SUMMARY: ??? CTA 12/2022 with clinic visit to follow ??? Continue aspirin and plavix as prescribed I spent a total of 35 minutes in the care of this patient today including review of prior notes, review of prior images, interval history, physical exam as outlined above, personal review and independent interpretation of studies outlined above, patient counseling, documentation in the medical record and coordination of care. -- 09/27/2022 3:02 PM Vera Townsend MD Open cerebrovascular and endovascular neurosurgery attending Section of Neurosurgery Department of Surgery [facility] documented in this encounter Plan of Treatment Not on file documented as of this encounter Results * CT Angiogram [place] (01/03/2023 2:24 PM EDT) Anatomical Region Laterality Modality Neck, Head Computed Tomogra phy Impressions 01/04/2023 9:40 AM EDT No contrast enhancement within calcified left supraclinoid ICA aneurysm following placement of flow-diverting stent. Thank you for letting us participate in the care of this patient. ??If you are a health care provider and have any questions regarding this report, please contact the number below. ??For patients who have questions please contact the health adult care provider that requested your imaging first. ? Narrative 01/04/2023 9:40 AM EDT EXAMINATION: CT ANGIOGRAM [place] CLINICAL HISTORY: Cerebral aneurysm, follow-up TECHNIQUE: CTA of the head performed after the intravenous administration of contrast. Administered 65.0 ml of OMNIPAQUE 350.00 mg/ml. MIP and 3-D volumetric reconstructions were created. COMPARISON: CTA head April 19, 2022 FINDINGS: Interval placement of flow-diverting stent at the left distal cavernous and supraclinoid internal carotid artery, with no contrast enhancement within the left supraclinoid ICA aneurysm. Residual aneurysm calcification measuring 7 mm craniocaudad by 5 mm AP. Otherwise no hemodynamically significant stenosis or aneurysm in the [place] or visible branch vessels. No midline shift, mass effect, hydrocephalus or extra-axial collection. Mild right frontoethmoid mucosal thickening and minimal right mastoid fluid. Procedure Note Lisa Marcano MD - 01/04/2023 EXAMINATION: CT ANGIOGRAM [place] CLINICAL HISTORY: Cerebral aneurysm, follow-up TECHNIQUE: CTA of the head performed after the intravenous administration ofcontrast. Administered 65.0 ml of OMNIPAQUE 350.00 mg/ml. MIP and 3-D volumetric reconstructions were created. COMPARISON: CTA head April 19, 2022 FINDINGS: Interval placement of flow-diverting stent at the left distal cavernousand supraclinoid internal carotid artery, with no contrast enhancement withinthe left supraclinoid ICA aneurysm. Residual aneurysm calcification measuring7 mm craniocaudad by 5 mm AP. Otherwise no hemodynamically significant stenosis or aneurysm in [place] or visible branch vessels. No midline shift, mass effect,hydrocephalus or extra-axial collection. Mild right frontoethmoid mucosal thickeningand minimal right mastoid fluid. IMPRESSION No contrast enhancement within calcified left supraclinoid ICA aneurysm following placement of flow-diverting stent. Thank you for letting us participate in the care of this patient. If youare a health care provider and have any questions regarding this report,please contact the number below. For patients who have questions please contactthe health adult care provider that requested your imaging first. Vera Townsend MD IMG CT ORDERABLES documented in this encounter Visit Diagnoses Diagnosis Aneurysm of left internal carotid artery Aneurysm of left internal carotid artery documented in this encounter Care Teams Director Post Relationship Specialty Start Date End Date Hai Lopez DO [address] [place] [address] PCP - General Family Medicine 10/10/17 documented as of this encounter
--- OUTSIDE RECORDS SUMMARY | 2024-05-26 12:42 | XMS_ITS | Encounter Summary ---
Author Organization [facility] [place] [address] Care Team Providers Care Thread Separator Name Role Phone Hai Lopez DO Primary Care Provider [phone] Reason for Referral * Diagnostic Test (Routine) - Closed Specialty Diagnoses / Procedures Referred By Cristal t Referred To Contact Radiology Diagnoses Aneurysm of left internal carotid artery Procedures CT Angiogram [place] Vera Akbar MD [facility] [place] [address] [facility] [place] [address] Referral ID Status Reason Start Date Expiration Date V isits Requested Visits Authorized [id number] Closed Specialty Service Requested 09/27/2022 03/30/2024 1 1 Reason for Visit * Diagnostic Test (Routine) - Closed Specialty Diagnoses / Procedures Referred By Contjeana t Referred To Contact Radiology Diagnoses Aneurysm of left internal carotid artery Procedures CT Angiogram Vera Gonzalez MD [facility] [place] [address] [facility] [place] [address] Referral ID Status Reason Start Date Expiration Date V isits Requested Visits Authorized [id number] Closed Specialty Service Requested 09/27/2022 03/30/2024 1 1 Encounter Details Date Type Department Care Team (Latest Contact Info) Description 01/03/2023 1:05 PM EDT - 01/03/2023 11:59 PM EDT Hospital Encounter CT Scan at [facility] [place] [id number] Vera Townsend MD [facility] [place] [address] Aneurysm of left internal carotid artery Discharge [...] End Date fluticasone propionate (Flonase) 50 mcg/actuation [place], Suspension 2 sprays by Each Nare route [...] Procedure Name Priority Date/Time Associated Diagnosis Comments CT [place] W CONTRAST Routine 01/03/2023 2:24 PM EDT Aneurysm of left internal carotid artery documented in this encounter Results * CT Angiogram [place] (01/03/2023 2:24 PM EDT) Anatomical [...] who have questions please contact the health career law clerk that requested your imaging first. ? Narrative 01/04/2023 9:40 AM EDT EXAMINATION: CT ANGIOGRAM [place] CLINICAL HISTORY: Cerebral aneurysm, follow-up [...] hemodynamically significant stenosis or aneurysm in the [place] or visible branch vessels. No midline shift, mass effect, hydrocephalus or extra-axial collection. Mild right frontoethmoid mucosal thickening and minimal right mastoid fluid. Procedure Note Lisa Marcano MD - 01/04/2023 EXAMINATION: CT ANGIOGRAM [place] CLINICAL HISTORY: Cerebral aneurysm, follow-up [...] patients who have questions please contactthe health career law clerk that requested your imaging first. Vera Townsend MD IMG CT ORDERABLES documented in this encounter Visit Diagnoses Diagnosis Aneurysm of left internal carotid artery documented in this encounter Administered Medications Inactive Administered Medications - up to 3 most recent administrations Medication Order MAR Action Action Date Dose Rate Site iohexoL (Omnipaque) (350 mg/mL) solution 0-200 mL 0-200 mL, Intravenous, ONCE PRN, 1 dose, Starting on Sun01/03/23 at 1424, Until Sun01/03/23 at 1424, Per Protocol, Warning Vesicant/Irritant Medication , Radiology Contrast, Routine Given 01/03/2023 2:24 PM EDT 65 mLs documented in this encounter Care Teams Thread Separator Relationship Specialty Start Date End Date Hai Lopez DO [address] [place] [address] PCP - General Family Medicine 10/10/17 documented as of this encounter
--- OUTSIDE RECORDS SUMMARY | 2024-05-26 12:42 | XMS_ITS | Encounter Summary ---
Author Organization [facility] Address [facility] [place] [address] Care Team Providers Care Agricultural Service Technician Name Role Phone Hai Lopez DO Primary Care Provider [phone] Reason for Visit * Reason Comments Blurred Vision * Consultation (Routine) - Closed Specialty Diagnoses / Procedures Referred By Cristal munguia Referred To Contact Ophthalmology Diagnoses cataracts Elizabeth Ricks MD [facility] [address] [place] [address] Daxa Lala, [place] [facility] [place] [place] [address] Referral ID Status Reason Start Date Expiration Date V isits Requested Visits Authorized [id number] Closed Consult, Test & Treat 04/27/2022 04/27/2023 1 1 Encounter Details Date Type Department Care Team (Late st Contact Info) Description 02/15/2023 9:00 AM EDT Office [place] [address] Daxa Lala OD [facility] [place] [place] [address] Diabetic eye exam; Combined forms of age-related cataract of both eyes; Astigmatism of both eyes with presbyopia Social History Tobacco Use Types Packs/Day Years [...] as of this encounter Progress Notes * Daxa Lala, OD - 02/15/2023 9:00 AM EDT Encounter Diagnoses Name Primary? Diabetic eye exam Combined forms of age-related cataract of both eyes Astigmatism of both eyes with presbyopia Mary Beth Holman is a 62 y.o. with the following ophthalmic problems: Assessment and Plan: DM II, No retinopathy OU, No DME OU - Advised BG control with diet, exercise, & meds per PCP recommendations. Cataracts OU - Monitor for now, sooner with changes in vision. Refractive Error OU - Rx given today - Findings and concerns discussed with Mary Beth and she expressed understanding. -Upon Return CEE in 1 year, sooner with changes in sx/vision. Eyeglass Final Rx Eyeglass Final Rx Sphere Cylinder Sims Dist VA Add Near VA Right -0.50 +0.50 151 20/25-1+2 +2.25 20/20 Left -1.00 +1.00 175 20/20-1 +2.25 20/20 Expiration Date: 02/15/2025 Pupillary Distance: 71 documented in this encounter Plan of Treatment Not on file documented as of this encounter Visit Diagnoses Diagnosis Diabetic eye exam Examination of eyes and vision Combined forms of age-related cataract of both eyes Other and combined forms of senile cataract Astigmatism of both eyes with presbyopia documented in this encounter Care Teams Agricultural Service Technician Relationship Specialty Start Date End Date Hai Lopez DO [address] [place] [address] PCP - General Family Medicine 10/10/17 documented as of this encounter
--- OUTSIDE RECORDS SUMMARY | 2024-05-26 12:42 | XMS_ITS | Encounter Summary ---
Author Organization [facility] [place] [address] Care Team Providers Care Toe Sewer Name Role Phone Hai Lopez Corey MOORE Primary Care Provider [phone] Encounter Details Date Type Department Care Team (Late st Contact Info) Description 10/19/2022 Telephone Neurosurgery at [facility] [place] [phone] Bro Lawler, RN Social History Tobacco Use Types Packs/Day Years Used Date Smoking Tobacco: Every Day Cigarettes 0.3 40 Smokeless Tobacco: Never Comments:down to 5 cigs. Alcohol Use Standard Drinks/Week Comments No 0 (1 standard drink = 0.6 oz pur e alcohol) [facility] Inpatient Questions Answer Date Recorded Does Anyone [...] as of this encounter Miscellaneous Notes * Addendum Note - Jame Peterson MD - 10/24/2022 10:01 AM EDTAddended by: JAME PETERSON on: 10/24/2022 10:01 AM Modules accepted: Orders * Telephone Encounter - Bro Lawler RN - 10/19/2022 8:34 AM EDT Copied from [facility] #[id number]. Topic: Specialty Dept CRMs - Triage >> Oct 18, 2022 4:07 PM Clara Mena wrote: Triage Message Specialist: Kristian Relationship (if other than patient-full name): patient Symptom: headaches Has patient experienced symptom before yes she states for the last two weeks If patient has experienced symptom before, when was the last time this occurred the last two weeks Is patient currently having symptom yes When did symptom begin 2 weeks ago Additional Comments: patient states prednisone did not help only raised her blood sugars , she is having issues also with increased neuropathy in her right hand. I spoke with Mary Beth. She is still having headaches every day. Start as silent migraines with floaters, then in afternoon it is a full blown migraine. Pain above eyes and down back of head. Constant all day. Medications don't help. Steroid course didn't help, just raised blood sugars. She called PCP due to tingling and numbness in hands and feet all the time, not a new symptom. She does have uncontrolled diabetes/neuropathy.. Right hand has gotten worse in the past 4-5 days, intermittently feels like burning, goes up arm. Sometimes can't grasp things or hold objects in her righthand. Has tried excedrin migraine. Careful with tylenol due to liver problems. Nothing helps it. When she goes to bed, the next morning pain is gone, and silent migraine with floaters return. No stroke-like or TIA symptoms. documented in this encounter Plan of Treatment Not on file documented as of this encounter Visit Diagnoses Not on filedocumented in this encounter Care Teams Toe Sewer Relationship Specialty Start Date End Date Hai Lopez DO [address] [place], [place] [address] [place] [address] PCP - General Family Medicine 10/10/17 documented as of this encounter
--- OUTSIDE RECORDS SUMMARY | 2024-05-26 12:42 | XMS_ITS | Encounter Summary ---
Author Organization [facility] [place] [address] Care Team Providers Care Transplant Surgeon Name Role Phone Hai Lopez Primary Care Provider [phone] Encounter Details Date Type Department Care Team (Late st Contact Info) Description 01/12/2023 Notes [place] [address] Destiny Alfredo, SENIOR QUALITY ANALYST [facility] [place] [place] [address] Social History Tobacco Use Types Packs/Day Years [...] Progress Notes * Destiny Alfredo APRN - 01/12/2023 4:56 PM EDT NEURORADIOLOGY BRIEF PRE-PROCEDURE NOTE Name: Mary Beth Holman Date of : 1960 Referring provider: Destiny Alfredo APRN Indication: LICA aneurysm pipeline stent placement Planned Procedure: diagnostic cerebral angiogram, Dr. Townsend Chief Complaint/HPI: Mary Beth Holman is a 62 y.o. female Allergies: Allergies Allergen Reactions Aspirin Other reaction(s): GI Upset Celecoxib Other reaction(s): GI Upset Fluoxetine Fluoxetine Hcl CIS - BAD RASH Metformin Diarrhea and Nausea And Vomiting Rofecoxib Other reaction(s): bleeding Medications: Current Outpatient Medications: fluticasone propionate (Flonase) 50 mcg/actuation [place], Suspension, 2 sprays by Each Nare route [...] Wheezing. Use with spacer, Disp: , Rfl: Labs: Platelets Date Value Ref Range Status 01/03/2023 168 145 - 357 x10(3)/mcL Final Creatinine Date Value Ref Range Status 01/03/2023 0.66 (L) 0.70 - 1.20 mg/dL Final Imaging: in edh Assessment: 62 y.o. female with the above history. No contraindications to procedure. Labs to be performed day of procedure: creatinine Medications to discontinue: none, continue ASA and Plavix Position: supine Sedation: moderate Additional medications for procedure: Lidocaine 1% Consent: day of procedure Destiny Alfredo APRN 01/12/2023 4:57 PM documented in this encounter Plan of Treatment Not on file documented as of this encounter Visit Diagnoses Not on filedocumented in this encounter Care Teams Transplant Surgeon Relationship Specialty Start Date End Date Hai Lopez DO [address] [place] [address] PCP - General Family Medicine 10/10/17 documented as of this encounter
--- OUTSIDE RECORDS SUMMARY | 2024-05-26 12:43 | XMS_ITS | Encounter Summary ---
Author Organization [facility] Address [facility] [address] Care Team Providers Care Scouring Machine Operator Name Role Phone Hai Lopez Primary Care Provider [phone] Reason for Visit * Reason Comments Visual Field Change Encounter Details Date Type Department Care Team (Late st Contact Info) Description 08/08/2019 8:30 AM EST Office [place] [address] Alena Conklin MD [facility] [address] Visual field defects; Unspecified visual disturbance Social History Tobacco Use Types Packs/Day Years Used Date Smoking Tobacco: Every Day Cigarettes 0.3 40 Smokeless Tobacco: Never Comments:down to 5 cigs. Alcohol Use Standard Drinks/Week Comments No 0 (1 standard drink = 0.6 oz pur e alcohol) Sex and Gender Information Value Date Recorded Sex Assigned at Not on file Gender Identity Not on file Sexual Orientation Not on file documented as of this encounter Progress Notes * Alena Nelson MD - 08/08/2019 8:30 AM EST Mary Beth Holman has noted longstanding headaches. No temporal headache, scalp tenderness, jaw pain,tongue pain, fatigue, shoulder or neck pain. Weight loss intentional, 15 lbs. On examination on 08/01/2019, Mary Beth Holman exhibited 20/50 vision in the right, 20/20 in the left. She has a normal visual function, color vision, with no evidence of a relative afferent pupillary defect. The intraocular pressures were normal in each eye. Static visual webber were unreliable withtemporal defect in the right and full in [...] labs, and re-assess next week with Goldmann visualfields. Return precautions given. Today, Mary Beth Holman exhibited 20/30 vision in the right, 20/20 in the left. Full color vision, with no evidence of a relative afferent pupillary defect. The intraocular pressures were normal in each eye. Goldmann visual field with some peripheral constriction, likely from her eyelids. Normal optic nerves, with full RNFL, not consistent with an optic neuropathy. Return precautions given, RTC 3-4 weeks I, Reji Higuera, have performed the documentation for this encounter in the presence of and acting as a scribe for Alena Nelson MD. I performed the services which were documented by the scribe, and I agree with the accuracy of the documentation in this encounter. ?? Alena Nelson MD documented in this encounter Plan of Treatment Not on file documented as of this encounter Procedures Procedure Name Priority Date/Time Associated Diagnosis Comments GOLDMANN VISUAL FIELD - EXTENDED - OU- BOTH EYES Routine 08/18/2019 2:31 PM EST Unspecified visual disturbance FUNDUS PHOTOS - OU- BOTH EYES Routine 08/11/2019 12:25 PM EST Unspecified visual disturbance OCT OPTIC NERVE - OU - BOTH EYES Routine 08/11/2019 12:24 PM EST Visual field defects documented in this encounter Results * Goldmann Visual Field - Extended - OU - Both Eyes (08/18/2019 2:31 PM EST) Anatomical Region Laterality Modality Other Narrative 08/18/2019 2:31 PM EST Goldmann visual field with some peripheral constriction, likely from her eyelids. Alena Conklin MD OPHTHALMOLOGY SE RVICES ORDERABLES * Fundus Photos - OU - Both Eyes (08/11/2019 12:25 PM EST) Anatomical Region Laterality Modality Other Narrative 08/11/2019 12:25 PM EST Right Eye Disc findings include normal observations. Vessel findings include normal observations. Periphery findings include normal observations. Left Eye Disc findings include normal observations. Vessel findings include normal observations. Periphery findings include normal observations. Notes Normal discs Alena Conklin MD OPHTHALMOLOGY SE RVICES ORDERABLES * Oct Optic Nerve - OU - Both Eyes (08/11/2019 12:24 PM EST) Anatomical Region Laterality Modality Other Narrative 08/11/2019 12:24 PM EST Right Eye Quality was good. Findings include normal observations. Temporal thickness was normal. Superior thickness was normal. Nasal thickness was normal. Inferior thickness was normal. Left Eye Quality was good. Findings include normal observations. Temporal thickness was normal. Superior thickness was normal. Nasal thickness was normal. Inferior thickness was normal. Notes [place] Spectralis OCT Implication: No thinning or swelling OU. Alena Conklin MD OPHTHALMOLOGY SE RVICES ORDERABLES documented in this encounter Visit Diagnoses Diagnosis Visual field defects Visual field defect, unspecified Unspecified visual disturbance documented in this encounter Care Teams Scouring Machine Operator Relationship Specialty Start Date End Date Hai Lopez DO [address] [place] [address] PCP - General Family Medicine 10/10/17 documented as of this encounter
--- OUTSIDE RECORDS SUMMARY | 2024-05-26 12:43 | XMS_ITS | Encounter Summary ---
Author Organization [place] [address] Care Team Providers Care Clinical Trial Data Manager Name Role Phone Hai Lopez Primary Care Provider [phone] Encounter Details Date Type Department Care Team (Late st Contact Info) Description 12/05/2021 Ancillary Procedure Radiology Library at [facility] [place] [id number] Elizabeth Ricks MD [facility] [address] [place] [address] Social History Tobacco Use Types Packs/Day Years [...] Procedure Name Priority Date/Time Associated Diagnosis Comments FILM LIBRARY STORAGE ONLY CT ABDOMEN AND PELVIS Routine 12/05/2021 12:00 AM EDT documented in this encounter Results * Film Library- Storage Only CT Abdomen & Pelvis (12/05/2021 12:00 AM EDT) Narrative [facility] - 05/02/2022 1:42 AM EDT This exam is auto-finalizing. It's purpose is for storage only. Elizabeth Ricks MD IMG FILM LIBRARY O RDERABLES [facility] RAD [place], [place] documented in this encounter Visit Diagnoses Not on filedocumented in this encounter Care Teams Clinical Trial Data Manager Relationship Specialty Start Date End Date Hai Lopez DO [address] [place] [address] PCP - General Family Medicine 10/10/17 documented as of this encounter
--- OUTSIDE RECORDS SUMMARY | 2024-05-26 12:43 | XMS_ITS | Encounter Summary ---
Author Organization [facility] Address [facility] [place] [address] Care Team Providers Care Police Sergeant Name Role Phone Hai Lopez Corey MOORE Primary Care Provider [phone] Encounter Details Date Type Department Care Team (Latest Contact Info) Description 02/23/2022 9:25 AM EDT - 02/23/2022 11:59 PM EDT Hospital Encounter [place] [address] Perla Hernandez MD [facility] [place] [address] BUI (nonalcoholic steatohepatitis); History of hepatitis C [...] Sig Dispensed Refills Start Date End Date PARoxetine (Paxil) 20 mg Tablet TK 1 [...] as needed for Wheezing. Use with spacer LORazepam (Ativan) 1 mg Tablet TK 1 T PO TID PRA 04/24/2019 08/01/2022 LANTUS SOLOSTAR U-100 INSULIN pen inject 52 units subcutaneously once daily 0 08/05/2018 09/13/2022 CHANTIX 0.5 mg Tablet take 1 tablet by mouth twice a day 0 10/01/2017 08/01/2022 omeprazole (PRILOSEC) 40 mg Capsule, Delayed Release(E.C.) Take 40 mg by mouth daily. 0 03/25/2015 09/13/2022 documented as of this encounter Plan of Treatment Not on file documented as of this encounter Procedures Procedure Name Priority Date/Time Associated Diagnosis Comments US ABDOMEN LIMITED HEPATOLOGY PROTOCOL Routine 02/23/2022 9:51 AM EDT BUI (nonalcoholic steatohepatitis) History of hepatitis C documented in this encounter Results * US Abdomen Limited Hepatology Protocol (02/23/2022 9:51 AM EDT) Anatomical Region Laterality Modality Abdomen Ultrasound 02/23/2022 9:49 AM EDT Impressions 02/23/2022 3:03 PM EDT The liver has coarse echotexture and increased echogenicity consistent with hepatic steatosis. There are no focal lesions. No cholelithiasis or evidence of cholecystitis. No intra or extrahepatic biliary ductal dilation. There is no ascites present four-quadrant view. I have personally reviewed the image(s) and the resident's interpretation and agree with the findings, Bernardo Silva MD at 02/23/2022 12:19 PM Electronically signed by: Bernardo Silva MD, [facility] ([phone]), at 02/23/2022 12:19 PM Thank you for letting us participate in the care of this patient. If you are a health care provider and have any questions regarding this report, please contact the number above. For patients who have questions, please contact the health nurse behavioral health care that requested your imaging first. ?Bernardo Silva, Staff Physician Electronically Signed Final Report ?? 02/23/2022 03:03 pm Narrative 02/23/2022 3:03 PM EDT Abdominal ? (Signed Final 02/23/2022 03:03 pm) PATIENT INFO: ID #: ? [id number] ?: ??58 (61 yrs)(F) Name: ? MARY BETH ANTUNEZ ?Visit Date: 02/23/2022 09:49 am PERFORMED BY: Performed By: ? Sagrario Munoz RDMS Attending: ?Bernardo Silva MD Referred By: ?PERLA HERNANDEZ Location: ? [place] SERVICE(S) PROVIDED: [id number] - Hepatology Protocol - Abdominal ?61380 Limited Survey Single Organ or Quadrant - [id number] INDICATIONS: Hep C, F3, HCC screening COMPARISON: US: Hepatology 08/21/19 ------ LIVER: ------ Right Lobe Length: ?? 17.4 ?? cm Echogenicity/Echotexture: ?? Slightly increased Portal Veins: ?Patent Comment: ?No focal lesion seen. GALLBLADDER: Cholelithiasis: ?No stones visualized Wall Thickness: ?2. mm Focal Tenderness: ?Negative sonographic Becerril's sign BILIARY TRACT: Intrahepatic Ducts: ?? Normal Extrahepatic Ducts: ?? Normal Common Duct Size: ? 3.0 ? mm FLUID COLLECTIONS: Ascites not present on 4 quadrant evaluation. Procedure Note Bernardo Silva MD - 02/23/2022 Abdominal (Signed Final 02/23/2022 03:03 pm) PATIENT INFO: ID #: [id number] : 58 (61 yrs)(F) Name: MARY BETH ANTUNEZ Visit Date: 02/23/2022 09:49 am PERFORMED BY: Performed By: Sagrario Munoz RDMS Attending: Bernardo Silva MD Referred By: PERLA HERNANDEZ Location: [place] SERVICE(S) PROVIDED: BDLIMCOX BRANSON - Hepatology Protocol - Abdominal [id number] Limited Survey Single Organ or Quadrant - [id number] INDICATIONS: Hep C, F3, HCC screening COMPARISON: US: Hepatology 08/21/19 ------ LIVER: ------ Right Lobe Length: 17.4 cm Echogenicity/Echotexture: Slightly increased Portal Veins: Patent Comment: No focal lesion seen. GALLBLADDER: Cholelithiasis: No stones visualized Wall Thickness: 2. mm Focal Tenderness: Negative sonographic Becerril's sign BILIARY TRACT: Intrahepatic Ducts: Normal Extrahepatic Ducts: Normal Common Duct Size: 3.0 mm FLUID COLLECTIONS: Ascites not present on 4 quadrant evaluation. IMPRESSION The liver has coarse echotexture and increased echogenicity consistent with hepatic steatosis. There are no focal lesions. No cholelithiasis or evidence of cholecystitis. No intra or extrahepatic biliary ductal dilation. There is no ascites present four-quadrant view. I have personally reviewed the image(s) and the resident's interpretation and agree with the findings, Bernardo Silva MD at 02/23/2022 12:19 PM Electronically signed by: Bernardo Silva MD, [facility] ([phone]), at 02/23/2022 12:19 PM Thank you for letting us participate in the care of this patient. If you are a health care provider and have any questions regarding this report, please contact the number above. For patients who have questions, please contact the health nurse behavioral health care that requested your imaging first. Bernardo Silva, Staff Physician Electronically Signed Final Report 02/23/2022 03:03 pm Perla Hernandez MD IMG US GEN ORDERABLE S documented in this encounter Visit Diagnoses Diagnosis BUI (nonalcoholic steatohepatitis) Other chronic nonalcoholic liver disease History of hepatitis C Personal history of other infectious and parasitic disease documented in this encounter Care Teams Police Sergeant Relationship Specialty Start Date End Date Hai [place] [address] PCP - General Family Medicine 10/10/17 documented as of this encounter
--- OUTSIDE RECORDS SUMMARY | 2024-05-26 12:43 | XMS_ITS | Encounter Summary ---
[place] [address] Care Team Providers Care Possum Trapper Name Role Phone Hai Lopez DO Primary Care Provider [phone] Encounter Details Date Type Department Care Team (Late st Contact Info) Description 07/24/2022 Orders [place] [id number] Ana Trinidad, RN Balance problem; Dizziness Social History Tobacco Use Types Packs/Day [...] as of this encounter Visit Diagnoses Diagnosis Balance problem Other symptoms involving nervous and musculoskeletal systems Dizziness Dizziness and giddiness documented in this encounter Care Teams Possum Trapper Relationship Specialty Start Date End Date Hai Lopez DO [address] [place] [address] PCP - General Family Medicine 10/10/17 documented as of this encounter
--- OUTSIDE RECORDS SUMMARY | 2024-05-26 12:43 | XMS_ITS | Encounter Summary ---
[place] [address] Care Team Providers Care Major Account Manager Name Role Phone Chengrosemary Hai Nicole DO Primary Care Provider [phone] Encounter Details Date Type Department Care Team (Latest Contact Info) Description 08/21/2019 9:35 AM EST Laboratory Appointment Lab [address] [place] [id number] BUI (nonalcoholic steatohepatitis); Hepatitis C virus infection without hepatic coma, unspecified chronicity Social History Tobacco Use Types Packs/Day Years [...] Procedure Name Priority Date/Time Associated Diagnosis Comments BILIRUBIN, DIRECT Routine 08/21/2019 9:2 3 AM EST HEMOGRAM Routine 08/21/2019 9:23 AM EST BUI (nonalcoholic steatohepatitis) Hepatitis C virus infection without hepatic coma, unspecified chronicity DIFFERENTIAL, AUTOMATED Routine 08/21/2019 9:23 AM EST BUI (nonalcoholic steatohepatitis) Hepatitis C virus infection without hepatic coma, unspecified chronicity HC ALPHA FETOPROTEIN TUMOR MARKER Routine 08/21/2019 9:23 AM EST BUI (nonalcoholic steatohepatitis) Hepatitis C virus infection without hepatic coma, unspecified chronicity HC PROTHROMBIN TIME Routine 08/21/2019 9 :23 AM EST BUI (nonalcoholic steatohepatitis) Hepatitis C virus infection without hepatic coma, unspecified chronicity HC CBC,PLT & AUTO DIFF Routine 0 9:23 AM EST BUI (nonalcoholic steatohepatitis) Hepatitis C virus infection without hepatic coma, unspecified chronicity COMPREHENSIVE METABOLIC PANEL Routine 08/21/2019 9:23 AM EST BUI (nonalcoholic steatohepatitis) Hepatitis C virus infection without hepatic coma, unspecified chronicity documented in this encounter Results * Bilirubin, Direct (08/21/2019 9:23 AM EST) Pathologist [facility] [place] Bilirubin, Direct 0.1 0.0 - 0.3 mg/dL [facility] Blood specimen (specimen) 08/21/2019 9:23 AM EST 08/21/2019 9:40 AM EST Narrative Resulting Agency Comment Spec In Lab Yuliana Hernandez MD CHEMISTRY ORDERABLES Performing Organization Address City/State/[facility] Co de Phone Number [facility] [place] [address] * Differential, Automated (08/21/2019 9:23 AM EST) Pathologist [facility] [place] Neutrophil % 54.8 % [facility] Neutrophil Absolute 4.44 1.70 - 6.10 x10(3)/[facility] Lymph % 33.9 % [facility] Lymphocytes Abs 2.7 0.9 - 3.2 x10(3)/[facility] Monocyte % 6.7 % [facility] Monocyte Abs 0.5 0.3 - 0.9 x10(3)/[facility] Eos % 3.1 % [facility] Eosinophils Abs 0.2 0.0 - 0.4 x10(3)/[facility] Basophil % 1.1 % [facility] Baso Absolute 0.1 0.0 - 0.1 x10(3)/[facility] Immature Gran % 0.40 % [facility] Comment: Immature granulocytes(IG's)percentage and absolute count will include metamyelocytes, myelocytes, and promyelocytes. Blood smears from CBCs yielding IG's will be scanned manually for concordance. If this scan disagrees with the automated IG or if promyelocytes are noted, a manual differential will be performed. Immature Gran Absolute 0.03 0.00 - 0.04 x10(3)/[facility] Blood specimen (specimen) 08/21/2019 9:23 AM EST 08/21/2019 9:35 AM EST Narrative Resulting Agency Comment Spec In Lab Yuliana Hernandez MD HEMATOLOGY ORDERABLE S Performing Organization Address City/State/[facility] Co de Phone Number [facility] [place] [address] * (ABNORMAL) Hemogram (08/21/2019 9:23 AM EST) White Blood Cell 8.1 4.0 - 9.5 x10(3)/[facility] Red Blood Cell 5.91(H) 4.00 - 5.21 x10(6)/[facility] Hemoglobin 17.2(H) 11.7 - 15.5 gm/dL [facility] Hematocrit 52.5(H) 35.7 - 45.8 % [facility] Mean Cell Volume 88.8 82.6 - 94.4 fL [facility] Mean Cell Hemoglobin 29.1 27.1 - 32.0 pg [facility] Mean Cell Hemoglobin Concentration 32.8 31.7 - 35.0 gm/dL [facility] Platelet 189 145 - 357 x10(3)/[facility] RDW Standard Deviation 44.9 37.0 - 46.0 fL [facility] RDW coefficient of variation 13.8 11.5 - 14.1 % [facility] Mean Platelet Volume 10.8 7.6 - 12.9 fL [facility] NRBC% auto 0.0 % [facility] NRBC Absolute 0.000 0.000 - 0.000 x10(3)/mc L [facility] Blood specimen (specimen) 08/21/2019 9:23 AM EST 08/21/2019 9:35 AM EST Narrative Resulting Agency Comment Spec In Lab Yuliana Hernandez MD HEMATOLOGY ORDERABLE S [facility] [place] [address] * (ABNORMAL) Comprehensive metabolic panel (non-fasting) (08/21/2019 9:23 AM EST) Glucose 212(H) 65 - 199 mg/dL [facility] Comment:Diabetes: >=200 mg/d L plus symptoms Blood Urea Nitrogen 13 8 - 18 mg/dL [facility] Creatinine 0.75 0.70 - 1.20 mg/dL [facility] Sodium 139 135 - 145 mmol/L [facility] Potassium 4.2 3.5 - 5.0 mmol/L [facility] Comment: Please note: ??Patients with WBC >100,000 may have falsely elevated Potassium levels. ??For accurate Potassium quantification in these patients send serum separator tube (gold top) for subsequent determinations. ??Contact the Clinical Chemistry Laboratory if there are any questions. Chloride 101 98 - 107 mmol/L [facility] Carbon Dioxide 27 22 - 31 mmol/L [facility] Anion Gap 11 5 - 15 mmol/L [facility] Calcium 9.5 8.5 - 10.5 mg/dL [facility] Protein, Total 7.4 6.1 - 8.0 gm/dL [facility] Albumin 4.5 3.2 - 5.2 gm/dL [facility] Aspartate Aminotransferase 17 0 - 30 unit/L [facility] Alanine Aminotransferase 19 0 - 30 unit/L [facility] Alkaline Phosphatase 116(H) 35 - 105 unit/L [facility] Bilirubin, Total 0.5 0.2 - 1.3 mg/dL [facility] Est Glomerular Filtration Rate 87 >=60 mL/min/1. 73 m?? [facility] Comment: The eGFR was calculated using the CKD-EPI equation. As with all creatinine based estimates of kidney function, eGFR values calculated with the CKD-EPI equation are not accurate in patients with acute kidney failure, extremes of body mass or the acutely ill. [email or web address]/[email or web address] eGFR 101 >=60 mL/min/1. 73 m?? [facility] Comment: The eGFR was calculated using the CKD-EPI equation. As with all creatinine based estimates of kidney function, eGFR values calculated with the CKD-EPI equation are not accurate in patients with acute kidney failure, extremes of body mass or the acutely ill. [email or web address]/[email or web address] Blood specimen (specimen) 08/21/2019 9:23 AM EST 08/21/2019 9:40 AM EST Narrative Resulting Agency Comment Spec In Lab Yuliana Hernandez MD CHEMISTRY ORDERABLES [facility] [place] [address] * Prothrombin Time (08/21/2019 9:23 AM EST) Prothrombin Time 11.4 9.4 - 12.5 sec [facility] International Normalization Ratio 1.0 [facility] Comment: An [...] be appropriate depending on clinical circumstances. Blood specimen (specimen) 08/21/2019 9:23 AM EST 08/21/2019 9:35 AM EST Narrative Resulting Agency Comment Spec In Lab Yuliana Hernandez MD HEMATOLOGY ORDERABLE S [facility] [place] [address] * AFP tumor marker (08/21/2019 9:23 AM EST) Alpha Fetoprotein 1.9 <=8.3 ng/mL [facility] Blood specimen (specimen) 08/21/2019 9:23 AM EST 08/21/2019 9:35 AM EST Narrative Resulting Agency Comment Spec In Lab Yuliana Hernandez MD CHEMISTRY ORDERABLES Performing Organization Address City/[facility] Co de Phone Number [facility] [place] [address] documented in this encounter Visit Diagnoses Diagnosis BUI (nonalcoholic steatohepatitis) Other chronic nonalcoholic liver disease Hepatitis C virus infection without hepatic coma, unspecified chronicity documented in this encounter Care Teams Major Account Manager Relationship Specialty Start Date End Date Hai Lopez DO [address] [place] [address] PCP - General Family Medicine 10/10/17 documented as of this encounter
--- OUTSIDE RECORDS SUMMARY | 2024-05-26 12:43 | XMS_ITS | Encounter Summary ---
[place] [address] Care Team Providers Care Straw Hat Washer Operator Name Role Phone Hai Lopez DO Primary Care Provider [phone] Reason for Referral * Diagnostic Test (Routine) - Closed Specialty Diagnoses / Procedures Referred By Cristal t Referred To Contact Radiology Diagnoses Aneurysm of left internal carotid artery Procedures IR Embolization Cerebral Destiny Alfredo APRN [facility] [place] [address] [place] [address] Referral ID Status Reason Start Date Expiration Date V isits Requested Visits Authorized [id number] Closed Specialty Service Requested 08/04/2022 02/02/2024 1 1 Encounter Details Date Type Department Care Team (Late st Contact Info) Description 08/04/2022 Orders [place] [address] Destiny Alfredo APRN [facility] [place] [address] Aneurysm of left internal carotid [...] as of this encounter Results * IR Embolization Cerebral (09/11/2022 5:41 PM EST) Anatomical Region Laterality Modality Spine X-Ray Angiograph y Impressions 2022 9:53 AM EST 1. ??Today's cerebral angiogram demonstrates uncomplicated placement of a flow diverting stent for left ICA supraclinoid aneurysm embolization. 2. ??3-D rotational angiographic data was reformatted on a dedicated workstation by . ??Kristian, attending physician. 3. ??Right groin hemostasis [...] who have questions please contact the health prompt care rn that requested your imaging first. ? Electronically signed by: Vera Townsend MD, [facility] ([phone]), at 2022 9:53 AM Narrative 2022 9:53 AM EST PROCEDURE NAME: [...] access kit. 2. ??0.035 Bentson Guidewire. 3. ??6-Trinidadian, 80-cm NeuronMax 4. ??5-Trinidadian VERT catheter. 5. ??Phenom Plus distal access catheter 6. ??Phenom 27 microcatheter. 7. ??0.018 Weston hydrophilic guidewire. 8. ??Pipeline Shield flow diverting stent 4.25mm x 16mm 9. ??6-Trinidadian Angio-Seal Device ?? PROCEDURE COMMENTS: After explaining [...] exchanged for an introducer followed by a 6-Trinidadian ??80 cm vascular sheath utilizing a Tequila Mobileson wire. The sheath was then double flushed and hooked to heparinized saline via pressure bag. ??Subsequently a 5-Trinidadian ??VERT catheter was used to selectively catheterize [...] in the usual sterile fashion. ??A 6 Trinidadian Angio-Seal closure device was subsequently prepared and [...] carotid artery, AP and lateral global views ([id number]) COMPLICATIONS: None. ESTIMATED BLOOD LOSS: < 10ml. INTERVENTION: 1. Flow diverting stent embolization of left ICA aneurysm EQUIPMENT: 1. Micropuncture access kit. 2. 0.035 Bentson Guidewire. 3. 6-Trinidadian, 80-cm NeuronMax 4. 5-Trinidadian VERT catheter. 5. Phenom Plus distal access catheter 6. Phenom 27 microcatheter. 7. 0.018 Weston hydrophilic guidewire. 8. Pipeline Shield flow diverting stent 4.25mm x 16mm 9. 6-Trinidadian Angio-Seal Device PROCEDURE COMMENTS: After explaining the [...] angiography table. [facility]. Both groins were prepped and [...] exchanged for an introducer followed by a 6-Trinidadian 80 cm vascularsheath utilizing a Bentson wire. The sheath was then double flushed and hookedto heparinized saline via pressure bag. Subsequently a 5-Trinidadian VERTcatheter was used to selectively catheterize the [...] of the stent was opened in the [id number]. The stent and microcatheter were then withdrawn [...] draped in the usual sterile fashion. A6 Trinidadian Angio-Seal closure device was subsequently prepared and [...] patients who have questions please contactthe health prompt care rn that requested your imaging first. Electronically signed by: Vera Townsend MD, [facility]([phone]), at 2022 9:53 AM Destiny Alfredo HAND LACER IMG IR ORDERABLES documented in this encounter Visit Diagnoses Diagnosis Aneurysm of left internal carotid artery Aneurysm of left internal carotid artery documented in this encounter Care Teams Straw Hat Washer Operator Relationship Specialty Start Date End Date Hai Lopez DO [address] [place] [address] PCP - General Family Medicine 10/10/17 documented as of this encounter
--- OUTSIDE RECORDS SUMMARY | 2024-05-26 12:43 | XMS_ITS | Encounter Summary ---
Author Organization [facility] Address [facility] [place] [address] Care Team Providers Care Industrial Sociologist Name Role Phone Hai oLpez Primary Care Provider [phone] Encounter Details Date Type Department Care Team (Late st Contact Info) Description 02/20/2019 10:30 AM EDT Office [place] [id number] Perla Hernandez MD [facility] [address] BUI (nonalcoholic steatohepatitis); Hepatitis C virus infection [...] documented in this encounter Progress Notes * Perla Hernandez MD - 02/20/2019 10:30 AM EDT Gastroenterology and Hepatology Follow Up Note Patient: Mary Beth Antunez : 1960 Provider: Perla Hernandez MD Problem [...] gum. She stopped smoking for 6 months, but restarted. She is planning on stopping again. She [...] Vitals: 02/20/19 1020 BP: 138/80 BP Location ([facility]): Right arm Patient Position: Sitting BP Cuff [...] and ultrasound. We discussed that her liver enzymeimproved with weight loss, and given her risk factors she probably dose have some underlying BUI. #4 RUQ bloating Provided order for hepatic function to obtain when she has symptoms. Perla Hernandez MD Section of Gastroenterology & Hepatology [address] [place], [place] [id number] 20 minutes of this 20 minute visit was spent in discussion. Cc: Hai Lopez DO documented in this encounter Plan of Treatment Not on file documented as of this encounter Results * AFP tumor marker (08/21/2019 9:23 AM EST) Alpha Fetoprotein 1.9 <=8.3 ng/mL [facility] Blood specimen (specimen) 08/21/2019 9:23 AM EST 08/21/2019 9:35 AM EST Narrative Resulting Agency Comment Spec In Lab Perla Hernandez MD CHEMISTRY ORDERABLES [facility] [place] [address] * Prothrombin Time (08/21/2019 9:23 AM EST) Prothrombin Time 11.4 9.4 - 12.5 sec [facility] International Normalization Ratio 1.0 [facility] Comment: An INR <2.0 [...] Narrative Resulting Agency Comment Spec In Lab Perla Hernandez MD HEMATOLOGY ORDERABLE S [facility] [place] [address] * (ABNORMAL) Comprehensive metabolic panel (non-fasting) (08/21/2019 9:23 AM EST) Glucose 212(H) 65 - 199 mg/dL [facility] Comment:Diabetes: >=200 mg/d L plus symptoms Blood Urea Nitrogen 13 8 - 18 mg/dL [facility] Creatinine 0.75 0.70 - 1.20 mg/dL [facility] Sodium 139 135 - 145 mmol/L [facility] Potassium 4.2 3.5 - 5.0 mmol/L [facility] Comment: Please note: ??Patients with WBC >100,000 may have falsely elevated Potassium levels. ??For accurate Potassium quantification in these patients send serum separator tube (gold top) for subsequent determinations. ??Contact the Clinical Chemistry Laboratory if there are any questions. Chloride 101 98 - 107 mmol/L [facility] Carbon Dioxide 27 22 - 31 mmol/L [facility] Anion Gap 11 5 - 15 mmol/L [facility] Calcium 9.5 8.5 - 10.5 mg/dL [facility] Protein, Total 7.4 6.1 - 8.0 gm/dL [facility] Albumin 4.5 3.2 - 5.2 gm/dL [facility] Aspartate Aminotransferase 17 0 - 30 unit/L [facility] Alanine Aminotransferase 19 0 - 30 unit/L [facility] Alkaline Phosphatase 116(H) 35 - 105 unit/L [facility] Bilirubin, Total 0.5 0.2 - 1.3 mg/dL [facility] Est Glomerular Filtration Rate 87 >=60 mL/min/1. 73 m?? [facility] Comment: The eGFR was calculated using the CKD-EPI equation. As with all creatinine based estimates of kidney function, eGFR values calculated with the CKD-EPI equation are not accurate in patients with acute kidney failure, extremes of body mass or the acutely ill. http://[employer] [place] eGFR 101 >=60 mL/min/1. 73 m?? [facility] Comment: The eGFR was calculated using the CKD-EPI equation. As with all creatinine based estimates of kidney function, eGFR values calculated with the CKD-EPI equation are not accurate in patients with acute kidney failure, extremes of body mass or the acutely ill. http://[employer]/[facility] [place] Blood specimen (specimen) 08/21/2019 9:23 AM EST 08/21/2019 9:40 AM EST Narrative Resulting Agency Comment Spec In Lab Perla Hernandez MD CHEMISTRY ORDERABLES Performing Organization Address City/State/[facility] Co de Phone Number [facility] [place] [phone] * US Abdomen Limited Hepatology Protocol (08/21/2019 8:41 AM EST) Anatomical Region Laterality Modality Abdomen Ultrasound 08/21/2019 8:38 AM EST Impressions 08/21/2019 9:12 AM EST 1. The liver is normal in echogenicity. No capsular nodularity or focal hepatic mass is seen. 2. The main portal vein is patent with hepatopedal directional flow. No ascites. 3. The gallbladder and biliary ductal system are normal. Thank you for letting us participate in the care of this patient. For questions regarding this report, please contact the number below. Electronically signed by: Babar Higuera [facility] ([phone]), at 08/21/2019 9:03 AM ? Babar Higuera, Staff Physician Electronically Signed Final Report ?? 08/21/2019 09:11 am Narrative 08/21/2019 9:12 AM EST Abdominal ? (Signed Final 08/21/2019 09:11 am) PATIENT INFO: ID #: ? [id number] ?: ??[birth year] (58 yrs) Name: ? MARY BETH ANTUNEZ ?Visit Date: 08/21/2019 08:38 am PERFORMED BY: Performed By: ? More Mccullough RDMS Attending: ?Kalen REBOLLAR, Babar Mejia Referred By: ?PERLA HERNANDEZ Location: ? [place] SERVICE(S) PROVIDED: ??[facility] - Hepatology Protocol - Abdominal ? [id number] ??Limited Survey Single Organ or Quadrant - ??[id number] INDICATIONS: ??s/p Hep C treatment, high grade fibrosis, ??HCC screening COMPARISON: Ultrasound: 02/12/19 ------ LIVER: ------ Right Lobe Length: ?? 17.4 ?? cm Echogenicity/Echotexture: ?? Normal Portal Veins: ?Hepatopetal GALLBLADDER: Cholelithiasis: ?No stones visualized Wall Thickness: ?1. mm Focal Tenderness: ?Negative sonographic Becerril's sign BILIARY TRACT: Intrahepatic Ducts: ?? Normal Extrahepatic Ducts: ?? Normal Common Duct Size: ? 5.0 ? mm FLUID COLLECTIONS: No ascites seen. Procedure Note Babar Higuera MD - 08/21/2019 Abdominal (Signed Final 08/21/2019 09:11 am) PATIENT INFO: ID #: [id number] : [birth year] (58 yrs) Name: MARY BETH ANTUNEZ Visit Date: 08/21/2019 08:38 am PERFORMED BY: Performed By: More Mccullough RDMS Attending: Babar Higuera MD Referred By: PERLA HERNANDEZ Location: [place] SERVICE(S) PROVIDED: [facility] - Hepatology Protocol - Abdominal [id number] Limited Survey Single Organ or Quadrant - [id number] INDICATIONS: s/p Hep C treatment, high grade fibrosis, HCC screening COMPARISON: Ultrasound: 02/12/19 ------ LIVER: [...] ascites. 3. The gallbladder and biliary ductal system are normal. Thank you for letting us participate in the care of this patient. For questions regarding this report, please contact the number below. Electronically signed by: Babar Higuera, [facility] ([phone]), at 08/21/2019 9:03 AM Babar Higuera, Staff Physician Electronically Signed Final Report 08/21/2019 09:11 am Perla Hernandez MD IMG US GEN ORDERABLE S documented in this encounter Visit Diagnoses Diagnosis BUI (nonalcoholic steatohepatitis) Other chronic nonalcoholic liver disease Hepatitis C virus infection without hepatic coma, unspecified chronicity BUI (nonalcoholic steatohepatitis) Other chronic nonalcoholic liver disease Hepatitis C virus infection without hepatic coma, unspecified chronicity documented in this encounter Care Teams Industrial Sociologist Relationship Specialty Start Date End Date Hai Lopez DO [address] [place] [address] PCP - General Family Medicine 10/10/17 documented as of this encounter
--- OUTSIDE RECORDS SUMMARY | 2024-05-26 12:43 | XMS_ITS | Encounter Summary ---
Author Organization [facility] Address [facility] [place] [address] Care Team Providers Care Kerfer Machine Operator Name Role Phone Hai Lopez Corey MOORE Primary Care Provider [phone] Reason for Visit * Reason Comments Weight Management Follow-up Encounter Details Date Type Department Care Team (Late st Contact Info) Description 10/25/2018 2:00 PM EDT Office Visit Weight and Wellness at [address] [address] Sri Briseno MD [facility] [place] [address] Class 1 obesity due to excess calories with serious comorbidity and body mass index (BMI) of 33.0 to 33.9 in adult; Suspected sleep apnea; Type 2 diabetes mellitus with hyperglycemia, with long-term current use of insulin; BUI (nonalcoholic steatohepatitis) Social History Tobacco Use [...] EDT documented in this encounter Patient Instructions * Patient Instructions* Sri Briseno MD - 10/25/2018 2:00 PM EDT GOALS [...] (taught by our health coaches, dietitians and nurses) that focus on healthy eating, healthy movement and [...] group-based sessions with our clinical psychologist to addressemotional eating, binge eating, and food cravings (group [...] dietitians. documented in this encounter Progress Notes * Sri Briseno MD - 10/25/2018 2:00 PM EDT [facility] Visit Patient Name: Mary Beth Holman Date of : 1960 Age: [address] Hai Lopez, DO Thank you for referring Mary Beth Holman to the [facility] for consultation regarding obesity. CHIEF COMPLAINT: Follow-up for Obesity INTERVAL HISTORY / PROGRESS TOWARD GOALS: [x] I reviewed past / interim records including notes and labs. Mary Beth is participating in our Obesity Medicine Pathway, and hopes to transition to the Healthy Lifestyles Program. She was last seen by me on 09/27/18, and by our dietitian and health leadership coach on . Weight has decreased 1.5 pounds since our last visit. She reports that she the visit with the dietitian was very helpful--she has cut out chips completely as a result. She has been tracking via the [employer] genesis, and is shooting for 1200 calories [...] and more like 2000 on days at home.She plans to start walking as the weather improves. 24 hour diet recall: - Breakfast: Small banana, 2 slices of wheat toast with butter - Lunch: Whole ham sandwich with mayonnaise on wheat bread - Dinner: Flame-broiled steak tips, bengali fries, garden salad with oil and vinegar [...] AST 28 08/22/2018 ALT 35 (H) 08/22/2018 [facility] Followup Responses 09/27/2018 [facility] - Readiness Score [...] in the Obesity Medicine Pathway at the [facility], but feels well-equipped and motivated to transition [...] 20 minutes of which were spent in [id number] discussion/counseling re obesity, nutrition and activity as well as obesity related co-morbidities documented in this encounter Plan of Treatment Not on file documented as of this encounter Visit Diagnoses Diagnosis Class 1 obesity due to excess calories with serious comorbidity and body mass index (BMI) of 33.0 to 33.9 in adult Suspected sleep apnea Type 2 diabetes mellitus with hyperglycemia, with long-term current use of insulin BUI (nonalcoholic steatohepatitis) Other chronic nonalcoholic liver disease documented in this encounter Care Teams Kerfer Machine Operator Relationship Specialty Start Date End Date Hai Lopez DO [address] [place] [address] PCP - General Family Medicine 10/10/17 documented as of this encounter
--- OUTSIDE RECORDS SUMMARY | 2024-05-26 12:43 | XMS_ITS | Encounter Summary ---
Author Organization [facility] [place] [address] Care Team Providers Care Button Breaker Name Role Phone Hai Lopez Primary Care Provider [phone] Encounter Details Date Type Department Care Team (Late st Contact Info) Description 04/20/2022 Ancillary Procedure Radiology Library [place] [id number] Elizabeth Ricks MD [facility] [address] [place] [address] Social History Tobacco Use Types Packs/Day Years [...] Associated Diagnosis Comments FILM LIBRARY STORAGE ONLY MR HEAD Routine 04/20/2022 12:00 AM EDT documented in this encounter Results * Film Library- Storage Only MR Head (04/20/2022 12:00 AM EDT) Narrative [facility] - 05/02/2022 1:38 AM EDT This exam is auto-finalizing. It's purpose is for storage only. Elizabeth Ricks MD IMG FILM LIBRARY O RDERABLES [facility] [place], [place] documented in this encounter Visit Diagnoses Not on filedocumented in this encounter Care Teams Button Breaker Relationship Specialty Start Date End Date Hai Lopez DO [address] [place] [address] PCP - General Family Medicine 10/10/17 documented as of this encounter
--- OUTSIDE RECORDS SUMMARY | 2024-05-26 12:43 | XMS_ITS | Encounter Summary ---
[place] [address] Care Team Providers Care Drawing Tender Name Role Phone Chengrosemary Hai Nicole DO Primary Care Provider [phone] Encounter Details Date Type Department Care Team (Latest Contact Info) Description 02/12/2019 10:35 AM EDT Laboratory Appointment Lab [address] [place] [phone] Hepatitis C virus infection without hepatic coma, [...] Priority Date/Time Associated Diagnosis Comments HEMOGRAM Routine 02/12/2019 10:30 AM EDT Hepatitis C virus infection without hepatic coma, unspecified chronicity DIFFERENTIAL, AUTOMATED Routine 02/12/2019 10:30 AM EDT Hepatitis C virus infection without hepatic coma, unspecified chronicity PROTHROMBIN TIME Routine 02/12/2019 10:3 0 AM EDT Hepatitis C virus infection without hepatic coma, unspecified chronicity CBC (WITH DIFF) Routine 02/12/2019 10:30 AM EDT Hepatitis C virus infection without hepatic coma, unspecified chronicity COMPREHENSIVE METABOLIC PANEL Routine 02/12/2019 10:30 AM EDT Hepatitis C virus infection without hepatic coma, unspecified chronicity documented in this encounter Results * Differential, Automated (02/12/2019 10:30 AM EDT) Neutrophil % 51.8 % [facility] Neutrophil Absolute 3.93 1.70 - 6.10 x10(3)/[facility] Lymph % 36.4 % [facility] Lymphocytes Abs 2.8 0.9 - 3.2 x10(3)/[facility] Monocyte % 7.5 % [facility] Monocyte Abs 0.6 0.3 - 0.9 x10(3)/[facility] LABORATORY Eos % 3.0 % [facility] Eosinophils Abs 0.2 0.0 - 0.4 x10(3)/[facility] Basophil % 0.9 % [facility] Baso Absolute 0.1 0.0 - 0.1 x10(3)/[facility]OR[facility]ORY Immature Gran % 0.40 % [facility] Comment: Immature granulocytes(IG's)percentage and absolute count will include metamyelocytes, myelocytes, and promyelocytes. Blood smears from CBCs yielding IG's will be scanned manually for concordance. If this scan disagrees with the automated IG or if promyelocytes are noted, a manual differential will be performed. Immature Gran Absolute 0.03 0.00 - 0.04 x10(3)/[facility] Blood specimen (specimen) 02/12/2019 10:30 AM EDT 02/12/2019 10:46 AM EDT Narrative Resulting Agency Comment Spec In Lab Yuliana Hernandez MD HEMATOLOGY ORDERABLE S [facility] [place] [address] * (ABNORMAL) Hemogram (02/12/2019 10:30 AM EDT) White Blood Cell 7.6 4.0 - 9.5 x10(3)/ L [facility] Red Blood Cell 5.67(H) 4.00 - 5.21 x10(6)/mc L [facility] Hemoglobin 16.6(H) 11.7 - 15.5 gm/dL [facility] Hematocrit 51.3(H) 35.7 - 45.8 % [facility] Mean Cell Volume 90.5 82.6 - 94.4 fL [facility] Mean Cell Hemoglobin 29.3 27.1 - 32.0 pg [facility] Mean Cell Hemoglobin Concentration 32.4 31.7 - 35.0 gm/dL [facility] Platelet 174 145 - 357 x10(3)/[facility] LABORATORY RDW Standard Deviation 45.0 37.0 - 46.0 [facility] RDW coefficient of variation 13.4 11.5 - 14.1 % [facility] Mean Platelet Volume 11.3 7.6 - 12.9 fL [facility] NRBC% auto 0.0 % [facility] NRBC Absolute 0.000 0.000 - 0.000 x10(3)/[facility] Blood specimen (specimen) 02/12/2019 10:30 AM EDT 02/12/2019 10:46 AM EDT Narrative Resulting Agency Comment Spec In Lab Yuliana Hernandez MD HEMATOLOGY ORDERABLE S [facility] [place] [address] * (ABNORMAL) Comprehensive metabolic panel (non-fasting) (02/12/2019 10:30 AM EDT) Glucose 168 65 - 199 mg/dL [facility] Comment:Diabetes: >=200 mg/d L plus symptoms Blood Urea Nitrogen 26(H) 8 - 18 mg/dL [facility] Creatinine 0.84 0.70 - 1.20 mg/dL [facility] Sodium 139 135 - 145 mmol/L [facility] Potassium 4.7 3.5 - 5.0 mmol/L [facility] Comment: Please note: ??Patients with WBC >100,000 may have falsely elevated Potassium levels. ??For accurate Potassium quantification in these patients send serum separator tube (gold top) for subsequent determinations. ??Contact the Clinical Chemistry Laboratory if there are any questions. Chloride 102 98 - 107 mmol/L [facility] Carbon Dioxide 27 22 - 31 mmol/L [facility] Anion Gap 10 5 - 15 mmol/L [facility] Calcium 9.5 8.5 - 10.5 mg/dL [facility] Protein, Total 7.7 6.1 - 8.0 gm/dL [facility] Albumin 4.7 3.2 - 5.2 gm/dL [facility] Aspartate Aminotransferase 18 0 - 30 unit/L [facility] Alanine Aminotransferase 16 0 - 30 unit/L [facility] Alkaline Phosphatase 95 35 - 105 unit/L [facility] Bilirubin, Total 0.4 0.2 - 1.3 mg/dL [facility] Est Glomerular Filtration Rate 76 >=60 mL/min/1. 73 m?? [facility] Comment: The eGFR was calculated using the CKD-EPI equation. As with all creatinine based estimates of kidney function, eGFR values calculated with the CKD-EPI equation are not accurate in patients with acute kidney failure, extremes of body mass or the acutely ill. http://[employer]/DHnkf eGFR 88 >=60 mL/min/1. 73 m?? [facility] Comment: The eGFR was calculated using the CKD-EPI equation. As with all creatinine based estimates of kidney function, eGFR values calculated with the CKD-EPI equation are not accurate in patients with acute kidney failure, extremes of body mass or the acutely ill. [email or web address] Blood specimen (specimen) 02/12/2019 10:30 AM EDT 02/12/2019 10:46 AM EDT Narrative Resulting Agency Comment Spec In Lab Yuliana Hernandez MD CHEMISTRY ORDERABLES Performing Organization Address [facility] de Phone Number [facility] [place] [address] * Prothrombin Time (02/12/2019 10:30 AM EDT) Prothrombin Time 10.9 9.4 - 12.5 sec [facility] International Normalization Ratio 1.0 [facility] Comment: An INR [...] depending on clinical circumstances. Blood specimen (specimen) 02/12/2019 10:30 AM EDT 02/12/2019 10:46 AM EDT Narrative Resulting Agency Comment Spec In Lab Yuliana Hernandez MD HEMATOLOGY ORDERABLE S Performing Organization Address [facility] Co de Phone Number [facility] [place] [address] documented in this encounter Visit Diagnoses Diagnosis Hepatitis C virus infection without hepatic coma, unspecified chronicity documented in this encounter Care Teams Drawing Tender Relationship Specialty Start Date End Date Hai Lopez DO [address] [place] [address] PCP - General Family Medicine 10/10/17 documented as of this encounter
--- OUTSIDE RECORDS SUMMARY | 2024-05-26 12:43 | XMS_ITS | Encounter Summary ---
[place] [address] Care Team Providers Care Integration Developer Name Role Phone Hai Lopez DO Primary Care Provider [phone] Encounter Details Date Type Department Care Team (Latest Contact Info) Description 08/27/2022 Travel Social History Tobacco Use Types Packs/Day [...] on filedocumented in this encounter Care Teams Integration Developer Relationship Specialty Start Date End Date Hai Lopez DO [address] [place] [address] PCP - General Family Medicine 10/10/17 documented as of this encounter
--- OUTSIDE RECORDS SUMMARY | 2024-05-26 12:43 | XMS_ITS | Encounter Summary ---
Author Organization [facility] Address [facility] [place] [address] Care Team Providers Care Land Surveying Survey Worker Name Role Phone Hai Lopez Corey MOORE Primary Care Provider Reason for Visit * Reason Comments Visual Field Change * Consultation (Urgent) - Closed Specialty Diagnoses / Procedures Referred By Contac t Referred To Contact Ophthalmology Diagnoses VF loss od x 2 weeks va 20/25 Johan Dent, OD [address] [place] [address] Alena Conklin MD [facility] [place] [address] Referral ID Status Reason Start Date Expiration Date V isits Requested Visits Authorized [id number] Closed Consult, Test & Treat 07/29/2019 07/28/2020 1 1 Encounter Details Date Type Department Care Team (Late st Contact Info) Description 08/01/2019 1:00 PM EST Office [place] [address] Alena Conklin MD [facility] [place] [address] Exophoria; Visual field defects; Unspecified visual disturbance Social [...] Progress Notes * Alena Nelson MD - 08/01/2019 1:00 PM [...] no evidence of a relative afferent pupillary defect.The intraocular pressures were normal in each eye. Static visual webber were unreliable with temporal defect in the right and full in the left. Sensorimotor examination revealed full extraocular movem ents in each eye. Mary Beth Holman had [...] week with Goldmann visualfields. Return precautions given. documented in this encounter Miscellaneous Notes * Addendum Note - Stephen Moseley - 08/01/2019 1:00 PM ESTAddended by: STEPHEN MOSELEY on: 08/01/2019 03:20 PM Modules accepted: Orders documented in this encounter Plan of Treatment Not on file documented as of this encounter Procedures Procedure Name Priority Date/Time Associated Diagnosis Comments HC C-REACTIVE PROTEIN Routine 08/01/2019 3:29 PM EST Unspecified visual disturbance HEMOGRAM Routine 08/01/2019 3:29 PM EST Unspecified visual disturbance DIFFERENTIAL, AUTOMATED Routine 08/01/2019 3:29 PM EST Unspecified visual disturbance HC CREATININE Routine 08/01/2019 3:29 PM EST Unspecified visual disturbance HC ESR-SEDIMENTATION RATE, BLOOD Routine 08/01/2019 3:29 PM EST Unspecified visual disturbance HC CBC,PLT & AUTO DIFF Routine 08/01/2019 3:29 PM EST Unspecified visual disturbance AUTOMATED VISUAL FIELD - EXTENDED - OU- BOTH EYES Routine 08/01/2019 3:17 PM EST Unspecified visual disturbance FUNDUS PHOTOS - OU- BOTH EYES Routine 08/01/2019 3:10 PM EST Unspecified visual disturbance SENSORIMOTOR EXAM Routine 08/01/2019 3:1 0 PM EST Exophoria OCT OPTIC NERVE - OU - BOTH EYES Routine 08/01/2019 3:10 PM EST Visual field defects documented in this encounter Results * Differential, Automated (08/01/2019 3:29 PM EST) Neutrophil % 55.7 % [facility] Neutrophil Absolute 4.57 1.70 - 6.10 x10(3)/[facility] LAB[facility]AT[facility] Lymph % 34.3 % [facility] Lymphocytes Abs 2.8 0.9 - 3.2 x10(3)/[facility]OR[facility]ORY Monocyte % 5.9 % [facility] Monocyte Abs 0.5 0.3 - 0.9 x10(3)/[facility] Eos % 3.0 % [facility] Eosinophils Abs 0.2 0.0 - 0.4 x10(3)/[facility] Basophil % 1.0 % [facility] Baso Absolute 0.1 0.0 - 0.1 x10(3)/[facility] LABORATORY Immature Gran % 0.10 % [facility] Comment: Immature granulocytes(IG's)percentage and absolute count will include metamyelocytes, myelocytes, and promyelocytes. Blood smears from CBCs yielding IG's will be scanned manually for concordance. If this scan disagrees with the automated IG or if promyelocytes are noted, a manual differential will be performed. Immature Gran Absolute 0.01 0.00 - 0.04 x10(3)/mcL [facility] Blood specimen (specimen) 08/01/2019 3:29 PM EST 08/01/2019 3:49 PM EST Narrative Resulting Agency Comment Spec In Lab Alena Conklin MD HEMATOLOGY ORDER PRAFUL [facility] [place] [place] [address] * (ABNORMAL) Hemogram (08/01/2019 3:29 PM EST) White Blood Cell 8.2 4.0 - 9.5 x10(3)/mc L [facility] Red Blood Cell 6.06(H) 4.00 - 5.21 x10(6)/mc L [facility] Hemoglobin 17.7(H) 11.7 - 15.5 gm/dL [facility] Hematocrit 54.2(H) 35.7 - 45.8 % [facility] Mean Cell Volume 89.4 82.6 - 94.4 fL [facility] Mean Cell Hemoglobin 29.2 27.1 - 32.0 pg [facility] Mean Cell Hemoglobin Concentration 32.7 31.7 - 35.0 gm/dL [facility] Platelet 191 145 - 357 x10(3)/mc L [facility] RDW Standard Deviation 44.0 37.0 - 46.0 fL [facility] RDW coefficient of variation 13.4 11.5 - 14.1 % [facility] Mean Platelet Volume 11.1 7.6 - 12.9 fL [facility] NRBC% auto 0.0 % [facility] NRBC Absolute 0.000 0.000 - 0.000 x10(3)/mc L [facility] Blood specimen (specimen) 08/01/2019 3:29 PM EST 08/01/2019 3:49 PM EST Narrative Resulting Agency Comment Spec In Lab Alena Conklin MD HEMATOLOGY ORDER PRAFUL Performing Organization Address City/[facility]/ZIP Co de Phone Number [facility] [place] [address] * CRP, acute inflammation (08/01/2019 3:29 PM EST) C-Reactive Protein 3.4 <=4.9 mg/L [facility] Blood specimen (specimen) 08/01/2019 3:29 PM EST 08/01/2019 3:49 PM EST Narrative Resulting Agency Comment Spec In Lab Alena Conklin MD CHEMISTRY ORDERA BLES Performing Organization Address City/[facility]/ZIP Co de Phone Number [facility] [place] [address] * (ABNORMAL) Sedimentation rate (08/01/2019 3:29 PM EST) Sedimentation Rate Automated 33(H) 0 - 20 mm/hr [facility] Blood specimen (specimen) 08/01/2019 3:29 PM EST 08/01/2019 3:49 PM EST Narrative Resulting Agency Comment Spec In Lab Alena Conklin MD HEMATOLOGY ORDER PRAFUL Performing Organization Address City/[facility]/ZIP Co de Phone Number [facility] [place] [address] * Creatinine (08/01/2019 3:29 PM EST) Creatinine 0.79 0.70 - 1.20 mg/dL [facility] Est Glomerular Filtration Rate 82 >=60 mL/min/1.7 3 m?? [facility] Comment: The eGFR was calculated using the CKD-EPI equation. As with all creatinine based estimates of kidney function, eGFR values calculated with the CKD-EPI equation are not accurate in patients with acute kidney failure, extremes of body mass or the acutely ill. http://[employer]/[facility] eGFR 95 >=60 mL/min/1.7 3 m?? [facility] Comment: The eGFR was calculated using the CKD-EPI equation. As with all creatinine based estimates of kidney function, eGFR values calculated with the CKD-EPI equation are not accurate in patients with acute kidney failure, extremes of body mass or the acutely ill. http://[employer]/[facility] Blood specimen (specimen) 08/01/2019 3:29 PM EST 08/01/2019 3:49 PM EST Narrative Resulting Agency Comment Spec In Lab Alena Conklin MD CHEMISTRY ORDERA BLES [facility] [place] [id number] * Automated Visual Field - Extended - OU - Both Eyes (08/01/2019 3:17 PM EST) Anatomical Region Laterality Modality Other Narrative 08/01/2019 3:17 PM EST Right Eye Threshold was 24-2. Strategy was CHELSIE. Left Eye Threshold was 24-2. Strategy was CHELSIE. Notes Static visual webber were unreliable with temporal defect in the right and full in the left. Alena Conklin MD OPHTHALMOLOGY SE RVICES ORDERABLES * Fundus Photos - OU - Both Eyes (08/01/2019 3:10 PM EST) Anatomical Region Laterality Modality Other Narrative 08/01/2019 3:10 PM EST Right Eye Disc findings include normal observations. Vessel findings include normal observations. Periphery findings include normal observations. Left Eye Disc findings include normal observations. Vessel findings include normal observations. Periphery findings include normal observations. Notes Normal discs Alena Conklin MD OPHTHALMOLOGY SE RVICES ORDERABLES * Sensorimotor Exam [Pr Special Eye Exam] - OU - Both Eyes (08/01/2019 3:10 PM EST) Anatomical Region Laterality Modality Other Narrative 08/01/2019 3:10 PM EST Small exophoria, full stereopsis Alena Conklin MD OPHTHALMOLOGY SE RVICES ORDERABLES * Oct Optic Nerve - OU - Both Eyes (08/01/2019 3:10 PM EST) Anatomical Region Laterality Modality Other Narrative 08/01/2019 3:10 PM EST Right Eye Quality was good. Findings include normal observations. Temporal thickness was normal. Superior thickness was normal. Nasal thickness was normal. Inferior thickness was normal. Left Eye Quality was good. Findings include normal observations. Temporal thickness was normal. Superior thickness was normal. Nasal thickness was normal. Inferior thickness was normal. Notes [facility] OCT Implication: No thinning or swelling OU. Alena Conklin MD OPHTHALMOLOGY SE RVICES ORDERABLES documented in this encounter Visit Diagnoses Diagnosis Exophoria Visual field defects Visual field defect, unspecified Unspecified visual disturbance documented in this encounter Care Teams Land Surveying Survey Worker Relationship Specialty Start Date End Date Hai Lopez DO [address] [place] [address] PCP - General Family Medicine 10/10/17 documented as of this encounter
--- OUTSIDE RECORDS SUMMARY | 2024-05-26 12:43 | XMS_ITS | Encounter Summary ---
Author Organization [facility] Address [facility] [place] [address] Care Team Providers Care Senior Hardware Design Engineer Name Role Phone Hai Lopez Corey MOORE Primary Care Provider [phone] Encounter Details Date Type Department Care Team (Late st Contact Info) Description 08/21/2019 11:00 AM EST Office [place] [address] Yuliana Hernandez MD [facility] [place] [address] RUQ pain; BUI (nonalcoholic steatohepatitis) Social History Tobacco Use [...] Weight 88.3 kg (194 lb 11.2 oz) 020 11:41 AM EST Height 165.1 cm (5' 5) 08/21/2019 11:4 1 AM EST Body Mass Index 32.4 08/21/2019 11:41 AM EST documented in this encounter Progress Notes * Yuliana Hernandez MD - 08/21/2019 11:00 AM [...] next for hypinosis. No jaundice, ascites, melena, diarrhea, constipation, nausea, or vomiting. No changes in mental [...] Vitals: 08/21/19 1141 BP: 124/70 BP Location ([facility]): Right arm Patient Position: Sitting [...] Hernandez MD Section of Gastroenterology & Hepatology [address] [place] [address] 16 minutes of this 17 minute visit was spent in discussion and coordination of care Cc: Hai Lopez DO documented in this encounter Plan of Treatment Not on file documented as of this encounter Visit Diagnoses Diagnosis RUQ pain Abdominal pain, right upper quadrant BUI (nonalcoholic steatohepatitis) Other chronic nonalcoholic liver disease documented in this encounter Care Teams Senior Hardware Design Engineer Relationship Specialty Start Date End Date Hai Lopez DO [address] [place] [address] PCP - General Family Medicine 10/10/17 documented as of this encounter
--- OUTSIDE RECORDS SUMMARY | 2024-05-26 12:43 | XMS_ITS | Encounter Summary ---
Author Organization [facility] Address [facility] [place] [address] Care Team Providers Care Peoplesoft Consultant Name Role Phone Hai Lopez Corey MOORE Primary Care Provider [phone] Encounter Details Date Type Department Care Team (Latest Contact Info) Description 08/21/2019 8:14 AM EST - 08/21/2019 11:59 PM EST Hospital [place] [id number] Perla Hernandez MD [facility] [place] [address] BUI (nonalcoholic steatohepatitis); Hepatitis C virus infection without hepatic coma, unspecified chronicity Discharge Disposition: Home Social History Tobacco Use [...] Comments US ABDOMEN LIMITED HEPATOLOGY PROTOCOL Routine 08/21/2019 8:41 AM EST BUI (nonalcoholic steatohepatitis) Hepatitis C virus infection without hepatic coma, unspecified chronicity documented in this encounter Results * US Abdomen Limited Hepatology Protocol (08/21/2019 [...] number below. Electronically signed by: Babar Higuera [facility] ([phone]), at 08/21/2019 9:03 AM ? Babar Higuera, Staff Physician Electronically Signed Final Report ?? 08/21/2019 09:11 am Narrative 08/21/2019 9:12 AM EST Abdominal ? (Signed Final 08/21/2019 09:11 am) PATIENT INFO: ID #: ? [id number] ?: ??[birth year] (58 yrs) Name: ? MARY BETH ANTUNEZ ?Visit Date: 08/21/2019 08:38 am PERFORMED BY: Performed By: ? More Mccullough RDMS Attending: ?Kalen REBOLLAR, Babar Mejia Referred By: ?PERLA HERNANDEZ Location: ? [place] SERVICE(S) PROVIDED: ??UABDLIM - Hepatology Protocol - Abdominal ? [id number] ??Limited Survey Single Organ or Quadrant - ??[id number] INDICATIONS: ??s/p Hep C treatment, high grade [...] 08/21/2019 09:11 am) PATIENT INFO: ID #: [id number] : [birth year] (58 yrs) Name: MARY BETH ANTUNEZ Visit Date: 08/21/2019 08:38 am PERFORMED BY: Performed By: More Mccullough RDMS Attending: Babar Higuera MD Referred By: PERLA HERNANDEZ Location: [place] SERVICE(S) PROVIDED: BDLIM - Hepatology Protocol - Abdominal [id number] Limited Survey Single Organ or Quadrant - [id number] INDICATIONS: s/p Hep C treatment, high grade [...] number below. Electronically signed by: Babar Higuera, [facility] ([phone]), at 08/21/2019 9:03 AM Babar Higuera, Staff Physician Electronically Signed Final Report 08/21/2019 09:11 am Perla Hernandez MD IMG US GEN ORDERABLE S documented in this encounter Visit Diagnoses Diagnosis BUI (nonalcoholic steatohepatitis) Other chronic nonalcoholic liver disease Hepatitis C virus infection without hepatic coma, unspecified chronicity documented in this encounter Care Teams Peoplesoft Consultant Relationship Specialty Start Date End Date Hai Lopez DO [address] [place] [address] PCP - General Family Medicine 10/10/17 documented as of this encounter
--- OUTSIDE RECORDS SUMMARY | 2024-05-26 12:43 | XMS_ITS | Encounter Summary ---
Author Organization [facility] Address [facility] [place] [address] Care Team Providers Care Extractor Operator Helper Name Role Phone Hai Lopez Corey MOORE Primary Care Provider [phone] Encounter Details Date Type Department Care Team (Latest Contact Info) Description 02/12/2019 10:38 AM EDT - 02/12/2019 11:59 PM EDT Hospital En[place] [phone] Perla Hernandez MD [facility] [place] [address] Hepatitis C virus infection without hepatic coma, [...] Date End Date BD ULTRA-FINE MINI PEN NEEDLE 31 gauge [...] as needed for Wheezing. Use with spacer LANTUS SOLOSTAR U-100 INSULIN pen inject 52 [...] Comments US ABDOMEN LIMITED HEPATOLOGY PROTOCOL Routine 02/12/2019 11:05 AM EDT Hepatitis C virus infection without hepatic coma, unspecified chronicity documented in this encounter Results * US Abdomen Limited Hepatology Protocol (02/12/2019 11:05 AM EDT) Anatomical Region Laterality Modality Abdomen Ultrasound 02/12/2019 11:0 6 AM EDT Impressions 02/12/2019 11:17 AM EDT ?? Smooth capsule homogeneous hepatic parenchymal echotexture without focal lesion nor biliary dilation. No visualized ascites. Thank you for letting us participate in the care of this patient. For questions regarding this report, please contact the number below. ? Lakisha Lane, Staff Physician Electronically Signed Final Report ?? 02/12/2019 11:16 am Narrative 02/12/2019 11:17 AM EDT Abdominal ? (Signed Final 02/12/2019 11:16 am) PATIENT INFO: ID #: ? [id number] ?: ??[birth year] (58 yrs) Name: ? MARY BETH ANTUNEZ ?Visit Date: 02/12/2019 11:06 am PERFORMED BY: Performed By: ? Daren Rolle RDMS Attending: ?Domingo REBOLLAR, Lakisha Douglas Referred By: ?PERLA HERNANDEZ Location: ? [place] SERVICE(S) PROVIDED: ??[facility]AB[facility] - Hepatology Protocol - Abdominal ? 65659 ??Limited Survey Single Organ or Quadrant - ??[id number] INDICATIONS: ??F3 fibrosis, hep c in SVR, hcc screening COMPARISON: Ultrasound: AB RODRIGUZE 08/22/18 ------ LIVER: ------ Right Lobe Length: ?? 17.4 ?? cm Echogenicity/Echotexture: ?? Normal Portal Veins: ?Hepatopetal Comment: ?No focal lesions seen. No surface nodularity seen. GALLBLADDER: Cholelithiasis: ?No stones visualized Wall Thickness: ?Normal wall thickness Focal Tenderness: ?Negative sonographic Becerril's sign BILIARY TRACT: Intrahepatic Ducts: ?? Normal Extrahepatic Ducts: ?? Normal Common Duct Size: ? 4.0 ? mm FLUID COLLECTIONS: No ascites in the imaged RUQ & RLQ. Procedure Note Lakisha Lane MD - 02/12/2019 Abdominal (Signed Final 02/12/2019 11:16 am) PATIENT INFO: ID #: [id number] : [birth year] (58 yrs) Name: MARY BETH ANTUNEZ Visit Date: 02/12/2019 11:06 am PERFORMED BY: Performed By: Daren Rolle RDMS Attending: Lakisha Lane MD Referred By: PERLA HERNANDEZ Location: [place] SERVICE(S) PROVIDED: [facility] - Hepatology Protocol - Abdominal 74663 Limited Survey Single Organ or Quadrant - [id number] INDICATIONS: F3 fibrosis, hep c in SVR, hcc screening COMPARISON: Ultrasound: AB MICHAEL 08/22/18 ------ LIVER: ------ Right Lobe Length: 17.4 cm Echogenicity/Echotexture: Normal Portal Veins: Hepatopetal Comment: No focal lesions seen. No surface nodularity seen. GALLBLADDER: Cholelithiasis: No stones visualized Wall Thickness: Normal wall thickness Focal Tenderness: Negative sonographic Becerril's sign BILIARY TRACT: Intrahepatic Ducts: Normal Extrahepatic Ducts: Normal Common Duct Size: 4.0 mm FLUID COLLECTIONS: No ascites in the imaged RUQ & RLQ. IMPRESSION Smooth capsule homogeneous hepatic parenchymal echotexture without focal lesion nor biliary dilation. No visualized ascites. Thank you for letting us participate in the care of this patient. For questions regarding this report, please contact the number below. Lakisha Lane, Staff Physician Electronically Signed Final Report 02/12/2019 11:16 am Perla Hernandez MD IMG US GEN ORDERABLE S documented in this encounter Visit Diagnoses Diagnosis Hepatitis C virus infection without hepatic coma, unspecified chronicity documented in this encounter Care Teams Extractor Operator Helper Relationship Specialty Start Date End Date Hai Lopze DO [address] [place] [address] PCP - General Family Medicine 10/10/17 documented as of this encounter
--- OUTSIDE RECORDS SUMMARY | 2024-05-26 12:43 | XMS_ITS | Encounter Summary ---
Author Organization [facility] Address [facility] Lisa [facility] [place] [address] Care Team Providers Care Multimedia Services Coordinator Name Role Phone Hai Lopez Primary Care Provider [phone] Encounter Details Date Type Department Care Team (Late st Contact Info) Description 06/16/2022 [place] [phone] Destiny Alfredo APRN [facility] [place] [place] [address] Social History Tobacco Use Types Packs/Day Years [...] * Telephone Encounter - Laurence Jackson - 06/19/2022 7:56 AM EST Deleted CTA from Email to Radiology Requests for 06/19 per Mary Beth Macdonald - 06/15/22 Destiny Alfredo APRN Sent: SunJune 16, 2022 ??4:57 PM To: P [facility] [place] ?? Message Please cancel 3 months CTA and OV with AM, change in plan. * Telephone Encounter - Octavia Mitchell - 06/16/2022 9:25 AM EST Completed CTA screening questions Please coordinate CTA on 07/19 with pts earliest arrival (including labs) at 10 am. AMM available from 04-10. Sent rad request [facility] Scheduling Instructions ?? Provider: Vera Townsend MD ?? Visit Type: CON ?? Appt Note: CON, f/u LICA cavernous aneurysm CTA & Lab Prior ?? Imaging appt needed?: CTA & Lab [facility] to ask patient Screening Questions? Yes [facility]SC to coordinate same day appt with Radiology? Yes ?? Additional Info Needed: ?? Schedule for July 2022, Lab 1-11/2 hours prior to CTA and Dr. Townsend all on the same day ?? * Telephone Encounter - Laurence Jackson - 06/16/2022 8:05 AM EST [facility] Scheduling Instructions Provider: Vera Townsend MD Visit Type: CON Appt Note: CON, f/u LICA cavernous aneurysm CTA & Lab Prior Imaging appt needed?: CTA & Lab [facility] to ask patient Screening Questions? Yes [facility]SC to coordinate same day appt with Radiology? Yes Additional Info Needed: Schedule for July 2022, Lab 1-11/2 hours prior to CTA and Dr. Townsend all on the same day ~~~~~~~~~~~~~~~~~~~~~~~~~~~~~~~ ----- Message from Destiny Alfredo APRN sent at 06/15/2022 4:41 PM EST ----- 07/2022 CTA and OV with AM on same day documented in this encounter Plan of Treatment Not on file documented as of this encounter Visit Diagnoses Not on filedocumented in this encounter Care Teams Multimedia Services Coordinator Relationship Specialty Start Date End Date Hai Lopez DO [address] [place] [address] PCP - General Family Medicine 10/10/17 documented as of this encounter
--- OUTSIDE RECORDS SUMMARY | 2024-05-26 12:43 | XMS_ITS | Encounter Summary ---
[place] [address] Care Team Providers Care Reel Cutter Name Role Phone Hai Lopez Corey MOORE Primary Care Provider [phone] Reason for Referral * Consultation (Urgent) - Closed Specialty Diagnoses / Procedures Referred By Contac t Referred To Contact Neurosurgery Diagnoses Cerebral aneurysm, nonruptured Elizabeth Ricks MD [facility] [address] [place] [address] [facility] [address] [place] [id number] Referral ID Status Reason Start Date Expiration Date V isits Requested Visits Authorized [id number] Closed Consult, Test & Treat PCP Updated and/or Approved 05/01/2022 05/01/2023 6 6 Encounter Details Date Type Department Care Team (Late st Contact Info) Description 05/01/2022 Transcribe Orders eDH Incoming Referrals [phone] Elizabeth Ricks MD [facility] [address] [place] [address] Cerebral aneurysm, nonruptured Social History Tobacco Use Types Packs/Day Years [...] Associated Diagnoses Orde r Schedule Referral to Neurosurgery Outpatient Referral Urgent Cerebral aneurysm, nonruptured Ordered: 05/01/2022 documented as of this encounter Visit Diagnoses Diagnosis Cerebral aneurysm, nonruptured documented in this encounter Care Teams Reel Cutter Relationship Specialty Start Date End Date Hai Lopez DO [address] [place] [address] PCP - General Family Medicine 10/10/17 documented as of this encounter
--- OUTSIDE RECORDS SUMMARY | 2024-05-26 12:43 | XMS_ITS | Encounter Summary ---
[place] [address] Care Team Providers Care Hairpiece Stylist Name Role Phone Chengrosemary Hai Nicole DO Primary Care Provider [phone] Encounter Details Date Type Department Care Team (Latest Contact Info) Description 02/23/2022 8:00 AM EDT Laboratory Appointment Lab [address] [place] [phone] BUI (nonalcoholic steatohepatitis) Social History Tobacco Use [...] Priority Date/Time Associated Diagnosis Comments HEMOGRAM Routine 02/23/2022 8:38 AM EDT BUI (nonalcoholic steatohepatitis) DIFFERENTIAL, AUTOMATED Routine 02/23/2022 8:38 AM EDT BUI (nonalcoholic steatohepatitis) HC ALPHA FETOPROTEIN TUMOR MARKER Routine 02/23/2022 8:38 AM EDT BUI (nonalcoholic steatohepatitis) HC PROTHROMBIN TIME Routine 02/23/2022 8 :38 AM EDT BUI (nonalcoholic steatohepatitis) HC CBC,PLT & AUTO DIFF Routine 8:38 AM EDT BUI (nonalcoholic steatohepatitis) COMPREHENSIVE METABOLIC PANEL Routine 02/23/2022 8:38 AM EDT BUI (nonalcoholic steatohepatitis) documented in this encounter Results * Differential, Automated (02/23/2022 8:38 AM EDT) Neutrophil % 65.2 % [facility] Neutrophil Absolute 5.87 1.70 - 6.10 x10(3)/[facility] Lymph % 25.5 % [facility] Lymphocytes Abs 2.3 0.9 - 3.2 x10(3)/[facility] LAB[facility] Monocyte % 6.0 % [facility] Monocyte Abs 0.5 0.3 - 0.9 x10(3)/[facility] Eos % 2.4 % [facility] Eosinophils Abs 0.2 0.0 - 0.4 x10(3)/[facility] LAB[facility] Basophil % 0.6 % [facility] Baso Absolute 0.0 0.0 - 0.1 x10(3)/[facility] LABOR[facility] Immature Gran % 0.30 % [facility] Comment: Immature granulocytes(IG's)percentage and absolute count will include metamyelocytes, myelocytes, and promyelocytes. Blood smears from CBCs yielding IG's will be scanned manually for concordance. If this scan disagrees with the automated IG or if promyelocytes are noted, a manual differential will be performed. Immature Gran Absolute 0.03 0.00 - 0.04 x10(3)/[facility] Blood 02/23/2022 8:38 AM EDT 02/23/2022 8:49 AM EDT Narrative Resulting Agency Comment Spec In Lab Perla Hernandez MD HEMATOLOGY ORDERABLE S [facility] [place] [address] * (ABNORMAL) Hemogram (02/23/2022 8:38 AM EDT) [facility] White Blood Cell 9.0 4.0 - 9.5 x10(3)/mc L [facility] Red Blood Cell 6.07(H) 4.00 - 5.21 x10(6)/ L [facility] Hemoglobin 17.9(H) 11.7 - 15.5 g/dL [facility] Hematocrit 53.8(H) 35.7 - 45.8 % [facility] Mean Cell Volume 88.6 82.6 - 94.4 fL [facility] Mean Cell Hemoglobin 29.5 27.1 - 32.0 pg [facility] Mean Cell Hemoglobin Concentration 33.3 31.7 - 35.0 g/dL [facility] Platelet 171 145 - 357 x10(3)/[facility] RDW Standard Deviation 50.0(H) 37.0 - 46.0 fL [facility] RDW coefficient of variation 15.6(H) 11.5 - 14.1 % [facility] Mean Platelet Volume 10.5 7.6 - 12.9 fL [facility] NRBC% auto 0.0 % [facility] NRBC Absolute 0.000 0.000 - 0.000 x10(3)/[facility] Blood 02/23/2022 8:38 AM EDT 02/23/2022 8:49 AM EDT Narrative Resulting Agency Comment Spec In Lab Perla Hernandez MD HEMATOLOGY ORDERABLE S [facility] [place] [address] * (ABNORMAL) Comprehensive metabolic panel (non-fasting) (02/23/2022 8:38 AM EDT) [facility] Glucose 162 65 - 199 mg/dL [facility] Comment:Diabetes: >=200 mg/d L plus symptoms Blood Urea Nitrogen 12 8 - 18 mg/dL [facility] Creatinine 0.69(L) 0.70 - 1.20 mg/dL [facility] Sodium 139 135 - 145 mmol/L [facility] Potassium 4.1 3.5 - 5.0 mmol/L [facility] Comment: Please note: ??Patients with WBC >100,000 may have falsely elevated Potassium levels. ??For accurate Potassium quantification in these patients send serum separator tube (gold top) for subsequent determinations. ??Contact the Clinical Chemistry Laboratory if there are any questions. Chloride 102 98 - 107 mmol/L [facility] Carbon Dioxide 25 22 - 31 mmol/L [facility] Anion Gap 12 5 - 15 mmol/L [facility] Calcium 9.2 8.5 - 10.5 mg/dL [facility] Protein, Total 7.6 6.1 - 8.0 g/dL [facility] Albumin 4.5 3.2 - 5.2 g/dL [facility] Aspartate Aminotransferase 25 0 - 30 unit/L [facility] Alanine Aminotransferase 15 0 - 30 unit/L [facility] Alkaline Phosphatase 119(H) 35 - 105 unit/L [facility] Bilirubin, Total 0.3 0.2 - 1.3 mg/dL [facility] Est Glomerular Filtration Rate 98 >=60 mL/min/1. 73 m?? [facility] Comment: This patient's estimated GFR [...] and symptoms in addition to eGFR. Blood 02/23/2022 8:38 AM EDT 02/23/2022 8:49 AM EDT Narrative Resulting Agency Comment Spec In Lab Perla Hernandez MD CHEMISTRY ORDERABLES Performing Organization Address [facility] Co de Phone Number [facility] [place] [address] * Prothrombin Time (02/23/2022 8:38 AM EDT) Prothrombin Time 11.0 9.4 - 12.5 sec [facility] International Normalization Ratio 1.0 [facility] Comment: An [...] be appropriate depending on clinical circumstances. Blood 02/23/2022 8:38 AM EDT 02/23/2022 8:49 AM EDT Narrative Resulting Agency Comment Spec In Lab Perla Hernandez MD HEMATOLOGY ORDERABLE S Performing Organization Address [facility] Co de Phone Number [facility] [place] [address] * AFP tumor marker (02/23/2022 8:38 AM EDT) Alpha Fetoprotein <1.9 <=8.3 ng/mL [facility] Comment: This result was generated using a Carl[employer] Jim immunoassay. ??Results obtained from other methods or manufacturers cannot be used interchangeably with this method. Blood 02/23/2022 8:38 AM EDT 02/23/2022 8:49 AM EDT Narrative Resulting Agency Comment Spec In Lab Perla Hernandez MD CHEMISTRY ORDERABLES Performing Organization Address [facility]/ZIP Co de Phone [place] [address] documented in this encounter Visit Diagnoses Diagnosis BUI (nonalcoholic steatohepatitis) Other chronic nonalcoholic liver disease documented in this encounter Care Teams Hairpiece Stylist Relationship Specialty Start Date End Date Hai Lopez DO [address] [place] [address] PCP - General Family Medicine 10/10/17 documented as of this encounter
--- OUTSIDE RECORDS SUMMARY | 2024-05-26 12:43 | XMS_ITS | Encounter Summary ---
Author Organization [facility] [place] [address] Care Team Providers Care Teacher Kindergarten Name Role Phone Hai Lopez DO Primary Care Provider [phone] Encounter Details Date Type Department Care Team (Late st Contact Info) Description 02/17/2019 Telephone [place] [phone] Roya Cm Social History Tobacco Use Types Packs/Day Years [...] encounter Miscellaneous Notes * Telephone Encounter - Roya Cm - 02/17/2019 9:31 AM EDT Left message on SundayFeb 14 to ask patient to change appointment times on with Dr. Hernandez. Asked patient to come in for 4:30. documented in this encounter Plan of Treatment Not on file documented as of this encounter Visit Diagnoses Not on filedocumented in this encounter Care Teams Teacher Kindergarten Relationship Specialty Start Date End Date Hai Lopez DO [address] [place] [address] PCP - General Family Medicine 10/10/17 documented as of this encounter
--- OUTSIDE RECORDS SUMMARY | 2024-05-26 12:43 | XMS_ITS | Encounter Summary ---
Author Organization [facility] Address [facility] [place] [address] Care Team Providers Care Digital Communications Manager Name Role Phone Hai Lopez Corey MOORE Primary Care Provider [phone] Encounter Details Date Type Department Care Team (Late st Contact Info) Description 07/26/2021 Orders [place] [address] Perla Hernandez MD [facility] [place] [address] BUI (nonalcoholic steatohepatitis); History of hepatitis C [...] documented as of this encounter Results * US Abdomen Limited [...] Bernardo Silva MD at 02/23/2022 12:19 PM Thank you for letting us participate in the care of this patient. If you are a health care provider and have any questions regarding this report, please contact the number above. For patients who have questions, please contact the health career services coordinator that requested your imaging first. ?Bernardo Silva, Staff Physician Electronically Signed Final Report ?? 02/23/2022 03:03 pm Narrative 02/23/2022 3:03 PM EDT Abdominal ? (Signed Final 02/23/2022 03:03 pm) PATIENT INFO: ID #: ? [id number] ?: ??58 (61 yrs)(F) Name: ? MARY BETH ANTUNEZ ?Visit Date: 02/23/2022 09:49 am PERFORMED BY: Performed By: ? Sagrario Munoz RDMS Attending: ?Bernardo Silva MD Referred By: ?PERLA HERNANDEZ Location: ? [place] SERVICE(S) PROVIDED: [facility] - Hepatology Protocol - Abdominal ?05693 Limited Survey Single Organ or Quadrant - [id number] INDICATIONS: Hep C, F3, HCC screening COMPARISON: [...] 02/23/2022 03:03 pm) PATIENT INFO: ID #: [id number] : 58 (61 yrs)(F) Name: MARY BETH Quigley TULIO Visit Date: 02/23/2022 09:49 am PERFORMED BY: Performed By: Sagrario Munoz RDMS Attending: Bernardo Silva MD Referred By: PERLA HERNANDEZ Location: [place] SERVICE(S) PROVIDED: [facility] - Hepatology Protocol - Abdominal 13529 Limited Survey Single Organ or Quadrant - [id number] INDICATIONS: Hep C, F3, HCC screening COMPARISON: [...] Bernardo Silva MD at 02/23/2022 12:19 PM Thank you for letting us participate in the care of this patient. If you are a health care provider and have any questions regarding this report, please contact the number above. For patients who have questions, please contact the health career services coordinator that requested your imaging first. Bernardo Silva, [...] disease documented in this encounter Care Teams Digital Communications Manager Relationship Specialty Start Date End Date Hai Lopez DO [address] [place] [address] PCP - General Family Medicine 10/10/17 documented as of this encounter
--- OUTSIDE RECORDS SUMMARY | 2024-05-26 12:43 | XMS_ITS | Encounter Summary ---
[place] [address] Care Team Providers Care Neonatal Specialist Name Role Phone Hai Lopez DO Primary Care Provider [phone] Encounter Details Date Type Department Care Team (Latest Contact Info) Description 08/04/2022 Travel Social History Tobacco Use Types Packs/Day [...] on filedocumented in this encounter Care Teams Neonatal Specialist Relationship Specialty Start Date End Date Hai Lopez DO [address] [place] [address] PCP - General Family Medicine 10/10/17 documented as of this encounter
--- OUTSIDE RECORDS SUMMARY | 2024-05-26 12:43 | XMS_ITS | Encounter Summary ---
[place] [address] Care Team Providers Care Senior Art Director Name Role Phone Hai Lopez DO Primary Care Provider [phone] Reason for Referral * Diagnostic Test (Routine) - Closed Specialty Diagnoses / Procedures Referred By Cristal t Referred To Contact Radiology Diagnoses Aneurysm of left internal carotid artery Procedures IR Arteriogram Destiny Hart APRN [facility] [address] [place] [address] Referral ID Status Reason Start Date Expiration Date V isits Requested Visits Authorized [id number] Closed Specialty Service Requested 06/16/2022 12/16/2023 1 1 Reason for Visit * Consultation (Urgent) - Closed Specialty Diagnoses / Procedures Referred By Contac t Referred To Contact Neurosurgery Diagnoses Cerebral aneurysm, nonruptured Elizabeth Ricks MD [facility] [address] [place] [address] [facility] Neuro[facility] [address] [place] [phone] Referral ID Status Reason Start Date Expiration Date V isits Requested Visits Authorized [id number] Closed Consult, Test & Treat PCP Updated and/or Approved 05/01/2022 05/01/2023 6 6 Encounter Details Date Type Department Care Team (Late st Contact Info) Description 06/15/2022 3:00 PM EST [place] [id number] Destiny Alfredo APRN [facility] [address] Aneurysm of left internal carotid artery; BUI with fibrosis Social History Tobacco Use Types Packs/Day Years [...] Sign Reading Time Taken Comments Blood Pressure 126/68 06/15/2022 2:37 PM EST Pulse 96 06/15/2022 2:37 PM EST Temperature 36.1 ??C (97 ??F) 06/15/2022 2:37 PM EST Respiratory Rate 18 06/15/2022 2:37 PM EST Oxygen Saturation 95% 06/15/2022 2:37 PM EST Inhaled Oxygen Concentration - - Weight 92.2 kg (203 lb 3.2 oz) 06/15/2022 2:37 P M EST Height 165.1 cm (5' 5) 06/15/2022 2:37 PM EST Body Mass Index 33.81 06/15/2022 2:37 PM EST documented in this encounter Progress Notes * Destiny Alfredo APRN - 06/15/2022 3:00 PM EST Ms. Holman is a 61 y.o. female who was found to have aneurysm on workup for dizziness. 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 MRI done 04/20/22 for ongoing dizziness. History of TIA, now takes aspirin, no further events. Brother has small unruptured cerebral aneurysm that is being followed, she believes it is 2mm. Currently smokes, has quit in the past, plans to try again. PAST MEDICAL HISTORY: Past Medical History: Diagnosis Date ??? Acid reflux ??? Allergy ??? Anxiety ??? Arthritis ??? Asthma ??? Diabetes ??? Dry mouth ??? Emphysema/COPD ??? High cholesterol ??? Hypertension ??? 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 SECTION 3 ??? ELBOW SURGERY Left 2 left elbow ??? PRO COLONOSCOPY, REMV LESN, SNARE N/A 10/10/2017 COLONOSCOPY, POLYPECTOMY, REMOVAL LESION BY SNARE (WRVU 4.67) performed by Richmond Orellana MD at [facility] ??? PRO EXCISION SUBMAXILLARY GLAND Left 02/23/2017 EXCISION SUBMANDIBULAR (SUBMAXILLARY) GLAND-GARY (WRVU 6.14) performed by Salty Butler MD [facility] OR ??? PRO UPPER GI ENDOSCOPY, BIOPSY N/A 10/10/2017 EGD WITH BIOPSY (WRVU 2.49) performed by Richmond Orellana MD at [facility] ??? WRIST SURGERY Left 2 left wrist SOCIAL HISTORY: Social History Tobacco Use ??? Smoking status: Every Day Packs/day: 0.25 Years: 40.00 Pack years: 10.00 Types: Cigarettes ??? Smokeless tobacco: Never ??? Tobacco comments: down to 5 cigs. Vaping Use ??? Vaping Use: Never used Substance Use Topics ??? Alcohol use: No ??? Drug use: No CURRENT MEDICATIONS: ??? amoxicillin-clavulanate (Augmentin) 875-125 mg Tablet ??? pregabalin (LYRICA) 150 mg Capsule ??? ProAir RespiClick 90 mcg/actuation Aerosol Powdr Breath Activated ??? fluticasone propionate (Flonase) 50 mcg/actuation [place], Suspension ??? Insulin Tresiba FlexTouch U-200 200 unit/mL (3 mL) Insulin Pen ??? meclizine (Antivert) 25 mg Tablet ??? PARoxetine (Paxil) 20 mg Tablet ??? BD ULTRA-FINE MINI PEN NEEDLE 31 gauge x 3/16 Needle ??? JARDIANCE 25 mg Tablet ??? insulin lispro (HUMALOG) Insulin Pen ??? LANTUS SOLOSTAR U-100 INSULIN pen ??? ONETOUCH ULTRA TEST Strip ??? ONE TOUCH DELICA 33 gauge Misc ??? lisinopril (PRINIVIL;ZESTRIL) 20 mg Tablet ??? omeprazole (PRILOSEC) 40 mg Capsule, Delayed Release(E.C.) ??? albuterol (PROVENTIL HFA;VENTOLIN HFA;PROAIR) 90 mcg/actuation HFA Aerosol Inhaler ??? LORazepam (Ativan) 1 mg Tablet ??? CHANTIX 0.5 mg Tablet ALLERGIES: Allergies Allergen Reactions ??? Aspirin Other reaction(s): GI Upset ??? Celecoxib Other reaction(s): GI Upset ??? Fluoxetine ??? Fluoxetine Hcl CIS - BAD RASH ??? Metformin Diarrhea and Nausea And Vomiting ??? Rofecoxib Other reaction(s): bleeding PHYSICAL EXAMINATION: Blood pressure 126/68, pulse 96, temperature 36.1 ??C (97 ??F), temperature source Temporal, resp. rate 18, height 165.1 cm (5' 5), weight 92.2 kg (203 lb 3.2 oz), SpO2 95 %. Awake, alert, and in no acute distress Speech: Appropriate and fluent; answers questions appropriately. Cranial Nerves: II-XII grossly intact. Motor: Normal muscle bulk and tone. No pronator drift. Full strength throughout. Gait: Independent and stable. RADIOGRAPHIC STUDIES: CTA 04/28/22 6mm saccular aneurysm arises from LICA at what appears to be above the ophthlamic artery takeoff. Lateral portion of aneurysm is calcified. No other aneurysms. IMPRESSION AND PLAN: Ms. Holman is a 61 y.o. female presenting with incidental finding of small aneurysm that appears to be intracranial. I reviewed the imaging studies with her Discussed the distinction between cavernous and intracranial aneurysms. Report from outside facility indicates a cavernous aneurysm, but this appears to have at least a partial intracranial portion. Reviewed with neuroradiology, who feel that aneurysm is intracranial. Discussed intracranial aneurysms, natural history and treatment options. Discussed risks of hemorrhage based on size, personal risk factors, aneurysm configuration. Intracranial aneurysm is very low risk based on above. Reviewed symptoms of SAH and need to seek emergent attention for this. Discussed option of observation with a 3 month CTA versus proceeding with diagnostic angiogram to consider treatment. Мария feels that she would prefer to move forward with treatment since the aneurysm appears to be intracranial. Will arrange for diagnostic angiogram with Dr. Townsend. Reviewed recent labs and medical history, no contraindications for moderate sedation. In our visit today, we discussed the patient's current condition, the natural course history without treatment and various interventional options. * Destiny Alfredo APRN - 06/15/2022 3:00 PM EST NEURORADIOLOGY BRIEF PRE-PROCEDURE NOTE Name: Mary Beth Holman Date of : 1960 Indication: LICA aneurysm Planned Procedure: diagnostic cerebral angiogram Chief Complaint/HPI: Mary Beth Holman is a 61 y.o. female with incidental finding of 6mm LICA aneurysm referred for diagnostic angiogram. Allergies: Allergies Allergen Reactions ??? Aspirin Other reaction(s): GI Upset ??? Celecoxib Other reaction(s): GI Upset ??? Fluoxetine ??? Fluoxetine Hcl CIS - BAD RASH ??? Metformin Diarrhea and Nausea And Vomiting ??? Rofecoxib Other reaction(s): bleeding Medications: Current Outpatient Medications: ??? amoxicillin-clavulanate (Augmentin) 875-125 mg Tablet, Take by mouth 2 times daily., Disp: , Rfl: ??? pregabalin (LYRICA) 150 mg Capsule, Take by mouth 2 times daily., Disp: , Rfl: ??? ProAir RespiClick 90 mcg/actuation Aerosol Powdr Breath Activated, INHALE TWO PUFFS BY MOUTH EVERY 4 HOURS NEEDED FOR WHEEZING OR SHORTNESS OF BREATH, Disp: , Rfl: ??? fluticasone propionate (Flonase) 50 mcg/actuation [place], Suspension, 2 sprays by Each Nare route daily., Disp: , Rfl: ??? Insulin Tresiba FlexTouch U-200 200 unit/mL (3 mL) Insulin Pen, INJECT 20 UNITS UNDER THE SKIN IN THE MORNING AND 56 AT BEDTIME, Disp: , Rfl: ??? meclizine (Antivert) 25 mg Tablet, Take by mouth 2 times daily. Takes 50 mg in the morning and 50 mg at night, Disp: , Rfl: ??? PARoxetine (Paxil) 20 [...] once daily, Disp: , Rfl: 0 ??? ONETOUCH ULTRA TEST Strip, , Disp: , Rfl: 0 ??? ONE TOUCH DELICA 33 gauge Misc, , Disp: , Rfl: 0 ??? lisinopril (PRINIVIL;ZESTRIL) 20 mg Tablet, Take 20 mg by mouth daily., Disp: , Rfl: 0 ??? omeprazole (PRILOSEC) 40 mg Capsule, Delayed Release(E.C.), Take 40 mg by mouth daily., Disp: ,Rfl: 0 ??? albuterol (PROVENTIL HFA;VENTOLIN HFA;PROAIR) 90 mcg/actuation HFA Aerosol Inhaler, Inhale 2 puffs into the lungs every 4 hours as needed for Wheezing. Use with spacer, Disp: , Rfl: ??? LORazepam (Ativan) 1 mg Tablet, TK 1 T PO TID PRA, Disp: , Rfl: ??? CHANTIX 0.5 mg Tablet, take 1 tablet by mouth twice a day, Disp: , Rfl: 0 Labs: Platelets Date Value Ref Range Status 02/23/2022 171 145 - 357 x10(3)/mcL Final INR Date Value Ref Range Status 02/23/2022 1.0 Final Comment: An INR <2.0 indicates adequate procoagulant activity for hemostasis in most patients without underlying bleeding disorders, though the INR may not adequately reflect hemostatic capacity in patients with liver disease and synthetic impairment. The recommended target INR range for therapeutic anticoagulation is 2.0 - 3.0 for most applications, though lower and higher ranges may be appropriate depending on clinical circumstances. Creatinine Date Value Ref Range Status 02/23/2022 0.69 (L) 0.70 - 1.20 mg/dL Final Imaging: CTA in edh. Assessment: 61 y.o. female with the above history. No contraindication for procedure. Labs to be performed day of procedure: INR, CBC, creatinine Medications to discontinue: None, may continue ASA Position: supine Sedation: moderate Additional medications for procedure: Lidocaine 1%, radial access Consent: day of procedure Destiny Alfredo APRN 06/16/2022 4:55 PM documented in this encounter Plan of Treatment Not on file documented as of this encounter Results * IR Arteriogram Cerebral (08/04/2022 12:30 PM EST) Anatomical Region Laterality Modality X-Ray Angiograph y Impressions 08/08/2022 5:23 PM EST 7 mm x 3 mm intracranial left ICA aneurysm adjacent to the ophthalmic origin. Thank you for letting us participate in the care of this patient. ??If you are a health care provider and have any questions regarding this report, please contact the number below. ??For patients who have questions please contact the health manager care management that requested your imaging first. ? Narrative 08/08/2022 5:23 PM EST EXAMINATION: IR ARTERIOGRAM CEREBRAL CLINICAL HISTORY: LICA aneurysm, evaluate for treatment OPERATORS: Dr. Bernardo Carmen. I, Bernardo Carmen, was present for the entire procedure. PROCEDURE: 1. Cerebral angiogram. ANESTHESIA: Moderate sedation provided with split doses of Versed and fentanyl administered during continuous monitoring of patient vital signs by angiography nursing. I was present during the intraservice time as documented by the IR Nurse. EBL: <20 ml CONTRAST: Approximately 65 mL Visipaque-320. RADIATION EXPOSURE: A-plane 172 mGy; B plane 100 mGy. MATERIALS: 5 [place] glide sheath slender, Ibarra 2 5 [place] glide catheter, 0.035 inch Glidewire. TECHNIQUE: The patient was brought to the angiography suite. The right wrist was sterilely prepped and draped. With ultrasound guidance, the right radial artery was accessed and the 5 [place] glide sheath placed, and double flushed. Spasmolytic cocktail containing 2.5 mg verapamil, and 200 mcg nitroglycerin, and 3000 units of heparin was hemodiluted and slowly injected. Roadmap angiogram of the brachial bifurcation was performed. The Ibarra 2 glide catheter was positioned in the lateral subclavian artery, double flushed, and connected to continuous heparinized saline fusion. Catheter tip was directed to the descending aorta using the Glidewire, and Ibarra shape formed in the arch. The left common carotid artery, left internal carotid artery, right common carotid artery, right internal carotid artery, and right vertebral artery were selected and biplane angiogram performed. Sheath was removed with TR band applied for hemostasis. FINDINGS: LEFT ??COMMON CAROTID ARTERY INJECTION: Visualized upper cervical and intracranial ICA are normal. MCA, BARBARA, and branches are normal. No aneurysm or vascular malformation. LEFT INTERNAL CAROTID ARTERY INJECTION: Biplane and rotational angiogram demonstrate the presence of a proximal 7 mm x 3 mm elongated aneurysm arising just distal to the ophthalmic origin projecting posteriorly and superiorly. MCA, BARBARA, and branches are normal. RIGHT ??COMMON CAROTID ARTERY ROADMAP INJECTION: Visualized common carotid, carotid bifurcation, and cervical ICA are normal in caliber. RIGHT INTERNAL CAROTID ARTERY INJECTION: Intracranial internal carotid artery is normal in caliber. MCA, BARBARA, and branches are normal. No evidence of aneurysm or vascular malformation. RIGHT VERTEBRAL ARTERY INJECTION: Intracranial vertebral artery, PICA, basilar artery, and posterior cerebral arteries are normal. No evidence of vascular malformation, aneurysm or other abnormality. Procedure Note Bernardo Carmen MD - 08/08/2022 EXAMINATION: IR ARTERIOGRAM CEREBRAL CLINICAL HISTORY: LICA aneurysm, evaluate for treatment OPERATORS: Dr. Bernardo Carmen. I, Benrardo Carmen, was present for theentire procedure. PROCEDURE: 1. Cerebral angiogram. ANESTHESIA: Moderate sedation provided with split doses of Versed andfentanyl administered during continuous monitoring of patient vital signs byangiography nursing. I was present during the intraservice time as documented by theIR Nurse. EBL: <20 ml CONTRAST: Approximately 65 mL Visipaque-320. RADIATION EXPOSURE: A-plane 172 mGy; B plane 100 mGy. MATERIALS: 5 [place] glide sheath slender, Ibarra 2 5 [place] glidecatheter, 0.035 inch Glidewire. TECHNIQUE: The patient was brought to the angiography suite. The rightwrist was sterilely prepped and draped. With ultrasound guidance, the right radialartery was accessed and the 5 [place] glide sheath placed, and double flushed. Spasmolytic cocktail containing 2.5 mg verapamil, and 200 mcgnitroglycerin, and 3000 units of heparin was hemodiluted and slowly injected. Roadmapangiogram of the brachial bifurcation was performed. The Ibarra 2 glide catheter was positioned in the lateral subclavian artery, double flushed, and connectedto continuous heparinized saline fusion. Catheter tip was directed to the descending aorta using the Glidewire, and Ibarra shape formed in thearch. The left common carotid artery, left internal carotid artery, right commoncarotid artery, right internal carotid artery, and right vertebral artery wereselected and biplane angiogram performed. Sheath was removed with TR band appliedfor hemostasis. FINDINGS: LEFT COMMON CAROTID ARTERY INJECTION: Visualized upper cervical and intracranial ICA are normal. MCA, BARBARA, and branches are normal. Noaneurysm or vascular malformation. LEFT INTERNAL CAROTID ARTERY INJECTION: Biplane and rotational angiogram demonstrate the presence of a proximal 7 mm x 3 mm elongated aneurysmarising just distal to the ophthalmic origin projecting posteriorly andsuperiorly. MCA, ABRBARA, and branches are normal. RIGHT COMMON CAROTID ARTERY ROADMAP INJECTION: Visualized commoncarotid, carotid bifurcation, and cervical ICA are normal in caliber. RIGHT INTERNAL CAROTID ARTERY INJECTION: Intracranial internal carotidartery is normal in caliber. MCA, BARBARA, and branches are normal. No evidence ofaneurysm or vascular malformation. RIGHT VERTEBRAL ARTERY INJECTION: Intracranial vertebral artery, PICA,basilar artery, and posterior cerebral arteries are normal. No evidence ofvascular malformation, aneurysm or other abnormality. IMPRESSION 7 mm x 3 mm intracranial left ICA aneurysm adjacent to the ophthalmicorigin. Thank you for letting us participate in the care of this patient. If youare a health care provider and have any questions regarding this report,please contact the number below. For patients who have questions please contactthe health manager care management that requested your imaging first. Destiny Alfredo APRN IMG IR ORDERABLES * Prothrombin Time (08/04/2022 8:14 AM EST) Prothrombin Time 10.8 9.4 - 12.5 sec [facility] International Normalization Ratio 0.9 [facility] Comment: An INR <2.0 indicates adequate procoagulant activity for hemostasis in most patients without underlying bleeding disorders, though the INR may not adequately reflect hemostatic capacity in patients with liver disease and synthetic impairment. The recommended target INR range for therapeutic anticoagulation is 2.0 ? 3.0 for most applications, though lower and higher ranges may be appropriate depending on clinical circumstances. Blood 08/04/2022 8:14 AM EST 08/04/2022 8:18 AM EST Narrative Resulting Agency Comment Spec In Lab Destiny Alfredo APRN HEMATOLOGY ORDERABLE S [facility] [place] [address] * Creatinine (08/04/2022 8:14 AM EST) Creatinine 0.74 0.70 - 1.20 mg/dL [facility] Est Glomerular Filtration Rate 91 >=60 mL/min/1. 73 m?? [facility] Comment: This patient's estimated GFR [...] and symptoms in addition to eGFR. 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
--- OUTSIDE RECORDS SUMMARY | 2024-05-26 12:43 | XMS_ITS | Encounter Summary ---
Author Organization [facility] [place] [address] Care Team Providers Care Scaffold Erector Name Role Phone Hai Lopez DO Primary Care Provider [phone] Encounter Details Date Type Department Care Team (Late st Contact Info) Description 12/19/2021 Tele[place] [id number] Shelby Nicolas Social History Tobacco Use Types Packs/Day Years [...] encounter Miscellaneous Notes * Telephone Encounter - Shelby Nioclas - 12/19/2021 10:45 AM EDT Pt needs US prior to follow up currently scheduled for 02/23. US order will be by then, justneed it extended documented in this encounter Plan of Treatment Not on file documented as of this encounter Visit Diagnoses Not on filedocumented in this encounter Care Teams Scaffold Erector Relationship Specialty Start Date End Date Hai Lopez DO [address] [place] [address] PCP - General Family Medicine 10/10/17 documented as of this encounter
--- OUTSIDE RECORDS SUMMARY | 2024-05-26 12:43 | XMS_ITS | Encounter Summary ---
[place] [address] Care Team Providers Care Sales Recruitment Specialist Name Role Phone Hai Lopez DO Primary Care Provider [phone] Reason for Referral * Consultation (Routine) - Closed Specialty Diagnoses / Procedures Referred By Contac t Referred To Contact Otolaryngology Diagnoses Benign paroxysmal vertigo of right ear Dizziness and giddiness Elizabeth Ricks MD [facility] [address] [place] [address] [facility] Otolaryngology [address] [place] [phone] Referral ID Status Reason Start Date Expiration Date V isits Requested Visits Authorized [id number] Closed Consult, Test & Treat 04/27/2022 04/27/2023 1 1 Encounter Details Date Type Department Care Team (Late st Contact Info) Description 04/27/2022 Transcribe Orders eDH Incoming Referrals [phone] Elizabeth Ricks MD [facility] [address] [place] [address] Benign paroxysmal vertigo of right ear; Dizziness and giddiness Social History Tobacco Use Types Packs/Day Years [...] Schedule Referral to ENT Outpatient Referral Routine Benign paroxysmal vertigo of right ear Dizziness and giddiness Ordered: 04/27/2022 documented as of this encounter Visit Diagnoses Diagnosis Benign paroxysmal vertigo of right ear Benign paroxysmal positional vertigo Dizziness and giddiness documented in this encounter Care Teams Sales Recruitment Specialist Relationship Specialty Start Date End Date Hai Lopez DO [address] [facility] [place] [address] PCP - General Family Medicine 10/10/17 documented as of this encounter
--- OUTSIDE RECORDS SUMMARY | 2024-05-26 12:43 | XMS_ITS | Encounter Summary ---
[place] [address] Care Team Providers Care Diesel Engineer Name Role Phone Hai Lopez DO Primary Care Provider [phone] Encounter Details Date Type Department Care Team (Latest Contact Info) Description 06/15/2022 Travel Social History Tobacco Use Types Packs/Day [...] on filedocumented in this encounter Care Teams Diesel Engineer Relationship Specialty Start Date End Date Hai Lopez DO [address] [place] [address] PCP - General Family Medicine 10/10/17 documented as of this encounter
--- OUTSIDE RECORDS SUMMARY | 2024-05-26 12:43 | XMS_ITS | Encounter Summary ---
[place] [address] Care Team Providers Care Rehabilitation Services Counselor Name Role Phone Hai Lopez DO Primary Care Provider [phone] Reason for Referral * Diagnostic Test (Routine) - Closed Specialty Diagnoses / Procedures Referred By Contac t Referred To Contact Radiology Diagnoses Aneurysm of left internal carotid artery Procedures IR Arteriogram Cerebral Destiny Alfredo LABORATORY TECH [facility] [place] [address] [place] [address] Referral ID Status Reason Start Date Expiration Date V isits Requested Visits Authorized [id number] Closed Specialty Service Requested 06/16/2022 12/16/2023 1 1 Reason for Visit * Diagnostic Test (Routine) - Closed Specialty Diagnoses / Procedures Referred By Contac t Referred To Contact Radiology Diagnoses Aneurysm of left internal carotid artery Procedures IR Arteriogram Cerebral Destiny Alfredo [facility] [place] [address] [place] [address] Referral ID Status Reason Start Date Expiration Date V isits Requested Visits Authorized [id number] Closed Specialty Service Requested 06/16/2022 12/16/2023 1 1 Encounter Details Date Type Department Care Team (Latest Contact Info) Description 08/04/2022 8:24 AM EST - 08/04/2022 11:59 PM EST Hospital Encounter Radiology [place] [facility] [place] [address] Destiny Alfredo APRN [facility] [place] [address] Aneurysm of left internal carotid artery Discharge [...] Sign Reading Time Taken Comments Blood Pressure 125/67 08/04/2022 3:30 PM EST Pulse 85 08/04/2022 12:25 PM EST Temperature 36.2 ??C (97.1 ??F) 08/04/2022 10:[address] Respiratory Rate 18 08/04/2022 3:30 PM EST Oxygen Saturation 91% 08/04/2022 3:30 PM EST Inhaled Oxygen Concentration - - Weight - - Height - - Body Mass Index - - documented in this encounter Discharge Instructions * Discharge Instructions* Dominique Hsu RN - 08/04/2022 12:47 PM EST [facility] Interventional Radiology Post Angiography Instructions Procedure: Diagnostic Cerebral Angio Puncture Site: R Radial 08/04/2022 Physician: Dr. Carmen 1. At home we advise you to rest quietly in bed or on the couch with your hip straight until the next morning. Until the next morning you may get up only to go to the bathroom. 2. Resume your previous diet. Drink 6-8 ounces of fluid per hour for the next 8 hours. Avoid alcoholic or caffeinated beverages for 24 hours. 3. Avoid strenuous activity for the next 48 hours, particularly in the next 24 hours. Stair climbing should be kept to a minimum. Do not lift objects heavier than 10-15 pounds for the next 48 hours Avoid straining for bowel movements as you can pop open the clot that has formed on the artery. 4. If you develop bulging under the skin or bleeding at the puncture site, put direct pressure on the puncture site for 15 minutes and call your doctor. If the bleeding persists, reapply pressure, and go to your local Emergency Department. 5. If you notice a sudden change in the feeling (numbness, tingling and/or pain) of your leg on theside of the puncture call your doctor. 6. You may develop a bruise at the puncture site. This should go away within a week to 10 days. If a bulge develops after the first three days, call your doctor or the Radiology/Vascular Department here. Report signs of infection (redness, swelling, discharge, soreness, or fever) to your doctor. 7. Leave the bandage on for 24-48 hours. You may shower the following day after the procedure. You should NOT swim or tub bathe for [address] for 24 hours after the procedure. Do not sign any important documents or smoke unattended for 24 hours. You may return to work with the above restrictions on . 9. If you have any questions or concerns, please call Interventional Radiology Department at until 6pm. After 6pm, or on weekends or hoildays, call and ask for the president & ceo pmo consultant. OR Vascular Department at until 4:45pm. After 4:45pm call and ask for the Vascular resident pmo consultant. 10. If you are a diabetic and take Metformin or Janumet, Do not take it for 2 days after the procedure. You have received medication during your procedure to help lesson anxiety and keep you comfortable and which affects judgement and reaction time. We recommend that you do not drive, operate equipment, sign any important documents, or smoke unattended for 24 hours following your procedure. Because of the sedation please be careful on stairs, as you may be unsteady on your feet. You may resume your regular diet as tolerated. IV site -- slight redness, or tenderness is normal, you can use a warm compress. If tenderness and redness increases or foul drainage occurs, please contact your M. D. Revised 04/24/19 documented in this encounter Medications at Time of Discharge Medication Sig Dispensed Refills Start Date End Date pregabalin (LYRICA) 150 mg Capsule Take by [...] 03/25/2015 09/13/2022 documented as of this encounter Progress Notes * Vera Townsend MD - 08/04/2022 1:39 PM EST Neurosurgery attending progress note Spoke with the patient about the results of the angiogram. Based on the aneurysm morphology and itssize, I would recommend treatment. The treatment I would recommend would be a flow diverting stent embolization. We discussed the need for dual antiplatelet therapy for 6 to 12 months or until the aneurysm completely closes. We discussed the risks and benefits of the procedure. The patient would like to proceed with flow diverting stent placement. I will have our office reach out to her for scheduling. * Zeus Salmon RN - 08/01/2022 9:31 AM EST ANGIO NURSING DATABASE Name: Mary Beth Holman Date of : 1960 AGE: 61 y.o. [address]: [address] [place] [id number] (home) Mobile: Telephone Information: Referring Provider: Destiny Alfredo REASON FOR VISIT: Order Questions Answers Where will study be performed? [facility] Radiology [120] Is the patient on anticoagulant / antiplatelet therapy ? Aspirin Reason for exam and clinical history: LICA aneurysm, evaluate for treatment Does patient require sedation? IV Please ensure a History and Physical exam is completed within 30 days of the Radiology Procedure OK Labs to be performed day of procedure: INR, CBC, creatinine Medications to discontinue: None, may continue ASA Position: supine Sedation: moderate Additional medications for procedure: Lidocaine 1%, radial access Consent: day of procedure No data recorded Allergies Allergen Reactions ??? Aspirin Other reaction(s): GI Upset ??? Celecoxib Other reaction(s): GI Upset ??? Fluoxetine ??? Fluoxetine Hcl CIS - BAD RASH ??? Metformin Diarrhea and Nausea And Vomiting ??? Rofecoxib Other reaction(s): bleeding Pertinent PMH: Patient Active Problem List Diagnosis Code ??? Gastro-esophageal reflux K21.9 ??? Diabetes mellitus E11.9 ??? HLD (hyperlipidemia) E78.5 ??? Hypertension I10 ??? Chronic low back pain M54.50, G89.29 ??? Chronic obstructive pulmonary disease J44.9 ??? Cigarette smoker F17.210 ??? Obesity E66.9 ??? 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 Left sided sciatica M54.32 ??? History of alcohol abuse F10.11 ??? Aneurysm of left internal carotid artery I67.1 Date/Procedure Meds Given/Comments 08.04.22 Cerebral Arteriogram - diagnostic Fentanyl 25 mcg, IV. Midazolam 0.5 mg, IV. Radial cocktail: Verapamil 2.5 mg, IV. Heparin 3000 u, IV, Nitroglycerin 200 mcg, IV. 1051 to procedure room 1 via stretcher. Onto table supine. All monitors, O2, safety strap in place.Meds per protocol. Arterial Puncture Post Procedure Time of Arterial Puncture: 1134 Site: Right radial wrist Closure device used: TR Band Time sheath removed: 1124 Time of hemostasis: 112 Hematoma present?: No TR Band Volume: 11 cc's. Laboratory Results: Lab Results Component Value Date INR 1.0 02/23/2022 Lab Results Component Value Date CREATININE 0.69 (L) 02/23/2022 Lab Results Component Value Date K 4.1 02/23/2022 Lab Results Component Value Date PLATELET 171 02/23/2022 documented in this encounter H&P Notes * Rich Butt MD - 08/04/2022 10:35 AM EST Images from the original note were not included. Neurosurgery Pre-Op H&P Mary Beth Holman was seen and examined in preop IR area. No interval events or changes in health status since preoperative note (see EPIC note dated 06/15/22 by Ms. Alfredo). All questions were answered. Stable for procedure as scheduled. HPI: 61F with incidentally discovered L ICA aneurysm presenting for elective cerebral DSA. Exam: Intact ASA Classification ___ Class 1 Healthy patient, no medical problems _X_ Class 2 Mild systemic disease ___ Class 3 Severe systemic disease, but not incapacitating ___ Class 4 Severe systemic disease that is a constant threat to life ___ Class 5 Moribund, not expected to live 24 hours irrespective of operation Mallampati Classification ___ Class I: soft palate, fauces, uvula, pillars __ Class II: soft palate, fauces, portion of uvula _X_ Class III: soft palate, base of uvula ___ Class IV: hard palate only A/P: -Proceed with surgery as planned. Rich Butt MD 08/04/22 10:35 AM Past Medical History: Past Medical History: Diagnosis [...] 4.67) performed by Richmond Orellana MD at [facility] ENDOSCOPY ??? PRO EXCISION SUBMAXILLARY GLAND Left 02/23/2017 EXCISION SUBMANDIBULAR (SUBMAXILLARY) GLAND-GARY (WRVU 6.14) performed by Salty Butler MD [facility] OR ??? PRO UPPER GI ENDOSCOPY, BIOPSY N/A 10/10/2017 EGD WITH BIOPSY (WRVU 2.49) performed by Richmond Orellana MD at [facility] ENDOSCOPY ??? WRIST SURGERY Left 2 left wrist Medications: Current Outpatient Medications on File Prior to Encounter Medication Sig Dispense Refill ??? pregabalin (LYRICA) 150 mg Capsule Take by mouth 2 times daily. ??? ProAir RespiClick 90 mcg/actuation Aerosol Powdr Breath Activated INHALE TWO PUFFS BY MOUTH EVERY 4 HOURS NEEDED FOR WHEEZING OR SHORTNESS OF BREATH ??? Insulin Tresiba FlexTouch U-200 200 unit/mL [...] Use with spacer No current facility-administered medications on file prior to encounter. Allergies: Allergies Allergen Reactions ??? Aspirin Other [...] Systems: As above, otherwise noncontributory. Vital Signs: Visit Vitals BP 122/68 (BP Location (NBP): Left arm) Pulse 97 Temp 36.2 ??C (97.1 ??F) (Temporal) Resp 16 SpO2 96% Labs: CBC: Lab Results Component Value Date/Time [...] No results found for: INR, PT, PTT documented in this encounter Miscellaneous Notes * Brief Op Note - Bernardo Carmen MD - 08/04/2022 12:27 PM EST INTERVENTIONAL RADIOLOGY BRIEF PROCEDURE NOTE Patient Name: Mary Beth Holman : 1960 Case Date: 08/04/2022 Operators: Attending: Bernardo Carmen MD All Staff: Staff Role Luis Alberto Kirkpatrick V Individual Pension Adviser Divine Vinson Individual Pension Adviser Bernardo Carmen MD Attending Zeus Salmon, production engineer Nurse Post-operative diagnosis/Indication: Aneurysm of left internal carotid artery Name of Procedure Performed: Cerebral angiogram Description of the procedure: R radial access (5 fr) Angiography of L ICA, R ICA, R vertebral artery Findings of the procedure: ~7 mm X 3 mm left ICA aneurysm EBL: <10 mL Specimens: None Complications: No immediate Plan/Disposition: Angio recovery per protocol. D/C home. FULL PROCEDURE NOTE TO FOLLOW IN IMAGE REPORT documented in this encounter Plan of Treatment Not on file documented as of this encounter Procedures Procedure Name Priority Date/Time Associated Diagnosis Comments POCT GLUCOSE Routine 08/04/2022 2:58 PM EST POCT GLUCOSE Routine 08/04/2022 1:36 PM EST IR ARTERIOGRAM CEREBRAL Routine 08/04/2022 12:30 PM EST Aneurysm of left internal carotid artery POCT GLUCOSE Routine 08/04/2022 12:14 PM EST POCT GLUCOSE Routine 08/04/2022 10:39 AM EST documented in this encounter Results * POCT Glucose (08/04/2022 2:58 PM EST) Glucose, POC 99 65 - 199 mg/dL [facility] Comment: Supplemental ranges: <140 mg/dL before meals <180 mg/dL all other times of the day Blood 08/04/2022 2:58 PM EST 08/04/2022 2:58 PM EST Destiny Alfredo LABORATORY TECH POINT OF CARE TEST O RDERABLES [facility] [place] [address] * POCT Glucose (08/04/2022 1:36 PM EST) Glucose, POC 96 65 - 199 mg/dL [facility] Comment: Supplemental ranges: <140 mg/dL before meals <180 mg/dL all other times of the day Blood 08/04/2022 1:36 PM EST 08/04/2022 1:36 PM EST Destiny Alfredo LABORATORY TECH POINT [place] [address] * IR Arteriogram Cerebral (08/04/2022 12:30 PM [...] who have questions please contact the health youth care specialist that requested your imaging first. ? Electronically signed by: Bernardo Carmen MD, [facility] ([phone]), at 08/08/2022 5:23 PM Narrative 08/08/2022 5:23 PM EST EXAMINATION: IR [...] mGy; B plane 100 mGy. MATERIALS: 5 Venezuelan glide sheath slender, Ibarra 2 5 Venezuelan glide catheter, 0.035 inch Glidewire. TECHNIQUE: The patient was brought to the angiography suite. The right wrist was sterilely prepped and draped. With ultrasound guidance, the right radial artery was accessed and the 5 Venezuelan glide sheath placed, and double flushed. Spasmolytic [...] Carmen. I, Bernardo Carmen, was present for theentire procedure. PROCEDURE: 1. Cerebral angiogram. ANESTHESIA: Moderate sedation provided with split doses of Versed andfentanyl administered during continuous monitoring of patient vital signs byangiography nursing. I was present during the intraservice time as documented by theIR Nurse. EBL: <20 ml CONTRAST: Approximately 65 mL Visipaque-320. RADIATION EXPOSURE: A-plane 172 mGy; B plane 100 mGy. MATERIALS: 5 Venezuelan glide sheath slender, Ibarra 2 5 Venezuelan glidecatheter, 0.035 inch Glidewire. TECHNIQUE: The patient was brought to the angiography suite. The rightwrist was sterilely prepped and draped. With ultrasound guidance, the right radialartery was accessed and the 5 Venezuelan glide sheath placed, and double flushed. Spasmolytic [...] the ophthalmic origin projecting posteriorly andsuperiorly. MCA, BARBARA, and branches are normal. RIGHT COMMON CAROTID [...] patients who have questions please contactthe health youth care specialist that requested your imaging first. Electronically signed by: Bernardo Carmen MD, [facility]([phone]), at 08/08/2022 5:23 PM Destiny Alfredo LABORATORY TECH IMG IR ORDERABLES * POCT Glucose (08/04/2022 12:14 PM EST) Glucose, POC 89 65 - 199 mg/dL [facility] Comment: Supplemental ranges: <140 mg/dL before meals <180 mg/dL all other times of the day Blood 08/04/2022 12:1 4 PM EST 08/04/2022 12:14 PM EST Destiny Cowarter LABORATORY TECH POINT OF CARE TEST O RDERABLES [facility] [place] [address] * POCT Glucose (08/04/2022 10:39 AM EST) Glucose, POC 116 65 - 199 mg/dL [facility] Comment: Supplemental ranges: <140 mg/dL before meals <180 mg/dL all other times of the day Blood 08/04/2022 10:3 9 AM EST 08/04/2022 10:39 AM EST Destiny Alfredo LABORATORY TECH POINT OF CARE TEST O RDERABLES [facility] [place] [address] documented in this encounter Visit Diagnoses Diagnosis Aneurysm of left internal carotid artery documented in this encounter Administered Medications Inactive Administered Medications - up to 3 most recent administrations Medication Order MAR Action Action Date Dose Rate Site ptpnbyrgdg-dbmvsaxrzlsex-cql feine (Esgic) per tablet 1 tablet 1 tablet, Oral, EVERY 4 HOURS PRN, Starting on Sun08/04/22 at 1542, Until 08/05/22 at 0434, Headaches, Maximum dose of acetaminophen is 4000 mg from all sources in 24 hours. Each tablet of Fioricet contains 300mg of acetaminophen., Routine Given 08/04/2022 3:59 PM EST 1 tablet fentaNYL (pf) (50 mcg/mL) multi-dose injection 25-50 mcg 25-50 mcg, Intravenous, EVERY 3 MIN PRN, Starting on Sun08/04/22 at 1033, Until Sun08/04/22 at 1607, Pain, per unit protocol, For use in [...] mcg/dose, 250 mcg/hour, Angio/IR (Intra-Procedure), Routine Given 08/04/2022 11:26 AM EST 25 mcg heparin (porcine) (1,000 units/mL) injection 3,000 Units 3,000 Units, Intra-arterial, ONCE, 1 dose, On Sun08/04/22 at 1100, For radial artery access. For use in Interventional Radiology (IR) only for procedure with direct provider supervision and verbal order., Angio/IR (Intra-Procedure), Routine Given 08/04/2022 11:37 AM EST 3,000 Units iodixanoL (Visipaque) (320 mg/mL) injection solution 1-400 mL 1-400 mL, Intra-arterial, ONCE PRN, 1 dose, Starting on Sun08/04/22 at 1044, Until Sun08/04/22 at 1230, Per Protocol, For intra-procedural use by proceduralist., Angio/IR (Intra-Procedure), Routine Given 08/04/2022 12:30 PM EST 75 mLs lidocaine (Xylocaine) 1% (10 mg/mL) injection 10 mg 10 mg, Subcutaneous, ONCE, 1 dose, On Sun08/04/22 at 1100, For use in Interventional Radiology (IR) only for procedure with direct provider supervision and verbal order., Angio/IR (Intra-Procedure), Routine Given 08/04/2022 11:31 AM EST 10 mg midazolam (pf) (Versed) (1 mg/mL) multi-dose injection 0.5-1 mg 0.5-1 mg, Intravenous, EVERY 3 MIN PRN, Starting on Sun08/04/22 at 1033, Until Sun08/04/22 at 1607, Sedation, For use in Interventional Radiology (IR) [...] mg/dose, 5 mg/hour., Angio/IR (Intra-Procedure), Routine Given 08/04/2022 11:25 AM EST 0.5 mg nitroGLYcerin 100 mcg/mL intracoronary dilution 200 mcg 200 mcg, Intra-arterial, ONCE, 1 dose, On Sun08/04/22 at 1100, For radial artery access. For use in Interventional Radiology (IR) only for procedure with direct provider supervision and verbal order., Angio/IR (Intra-Procedure), Routine Given 08/04/2022 11:37 AM EST 200 mcg verapamiL (Isoptin) (2.5 mg/mL) injection 2.5 mg 2.5 mg, Intra-arterial, ONCE, 1 dose, On Sun08/04/22 at 1100, Administer over 2 Minutes, For radial artery access. For use in Interventional Radiology (IR) only for procedure with direct provider supervision and verbal order., Angio/IR (Intra-Procedure) Given 08/04/2022 11:37 AM EST 2.5 mg 30 mL/hr documented in this encounter Care Teams Rehabilitation Services Counselor Relationship Specialty Start Date End Date Hai Lopez DO [address] [place] [address] PCP - General Family Medicine 10/10/17 documented as of this encounter
--- OUTSIDE RECORDS SUMMARY | 2024-05-26 12:43 | XMS_ITS | Encounter Summary ---
[place] [address] Care Team Providers Care Service Station Console Operator Name Role Phone Hai Lopez DO Primary Care Provider [phone] Encounter Details Date Type Department Care Team (Latest Contact Info) Description 07/31/2022 Travel Social History Tobacco Use Types Packs/Day [...] on filedocumented in this encounter Care Teams Service Station Console Operator Relationship Specialty Start Date End Date Hai Lopez DO [address] [place] [address] PCP - General Family Medicine 10/10/17 documented as of this encounter
--- OUTSIDE RECORDS SUMMARY | 2024-05-26 12:43 | XMS_ITS | Encounter Summary ---
Author Organization [facility] [place] [address] Care Team Providers Care Spinning Operator Name Role Phone Hai Lopez DO Primary Care Provider [phone] Encounter Details Date Type Department Care Team (Late st Contact Info) Description 08/18/2022 Telephone Gastroenterology at [facility] [place] [phone] Anna Fontanez RN Social History Tobacco Use Types Packs/Day [...] encounter Miscellaneous Notes * Telephone Encounter - Anna Fontanez RN - 08/18/2022 8:56 AM EST Call placed to patient to advise that ultrasound not needed on 08/28. Received report from OSH. Advised that provider Aron Smith reviewed and that results were stable. Patient instructed to have labsdrawn prior to appointment on 08/28. She agrees with plan. documented in this encounter Plan of Treatment Not on file documented as of this encounter Visit Diagnoses Not on filedocumented in this encounter Care Teams Spinning Operator Relationship Specialty Start Date End Date Hai Lopez DO [address] [place] [address] PCP - General Family Medicine 10/10/17 documented as of this encounter
--- OUTSIDE RECORDS SUMMARY | 2024-05-26 12:43 | XMS_ITS | Encounter Summary ---
Author Organization [facility] [place] [address] Care Team Providers Care Canvas Goods Supervisor Name Role Phone Hai Lopez Primary Care Provider [phone] Encounter Details Date Type Department Care Team (Late st Contact Info) Description 04/28/2022 Ancillary Procedure Radiology Library at [facility] [place] [phone] Elizabeth Ricks MD [facility] [address] [place] [address] Social History Tobacco Use Types Packs/Day Years [...] Diagnosis Comments FILM LIBRARY STORAGE ONLY CT HEAD AND SPINE Routine 04/28/2022 12:00 AM EDT documented in this encounter Results * Film Library- Storage Only CT Head And Spine (04/28/2022 12:00 AM EDT) Narrative [facility] - 05/02/2022 1:40 AM EDT This exam is auto-finalizing. It's purpose is for storage only. Elizabeth Ricks MD IMG FILM LIBRARY O RDERABLES [facility] [place], [place] documented in this encounter Visit Diagnoses Not on filedocumented in this encounter Care Teams Canvas Goods Supervisor Relationship Specialty Start Date End Date Hai Lopez DO [address] [place] [address] PCP - General Family Medicine 10/10/17 documented as of this encounter
--- OUTSIDE RECORDS SUMMARY | 2024-05-26 12:43 | XMS_ITS | Encounter Summary ---
[place] [address] Care Team Providers Care Six Sigma Black Belt Engineer Name Role Phone Hai Lopez DO Primary Care Provider [phone] Encounter Details Date Type Department Care Team (Latest Contact Info) Description 08/04/2022 8:05 AM EST Laboratory Appointment Lab [address] [place] [phone] Aneurysm of left internal carotid artery; BUI [...] Name Priority Date/Time Associated Diagnosis Comments HEMOGRAM STAT 08/04/2022 8:14 AM EST Aneurysm of left internal carotid artery DIFFERENTIAL, AUTOMATED STAT 08/04/2022 8:14 AM EST Aneurysm of left internal carotid artery CREATININE STAT 08/04/2022 8:14 AM EST Aneurysm of left internal carotid artery HC PROTHROMBIN TIME STAT 08/04/2022 8 :14 AM EST Aneurysm of left internal carotid artery BUI with fibrosis HC VENIPUNCTURE STAT 08/04/2022 8:14 AM EST Aneurysm of left internal carotid artery documented in this encounter Results * Differential, Automated (08/04/2022 8:14 AM EST) Neutrophil % 62.7 % [facility] Neutrophil Absolute 4.99 1.70 - 6.10 x10(3)/[facility] LABORATORY Lymph % 24.7 % [facility] Lymphocytes Abs 2.0 0.9 - 3.2 x10(3)/[facility] LABORATORY Monocyte % 7.7 % [facility] Monocyte Abs 0.6 0.3 - 0.9 x10(3)/[facility] LABORATORY Eos % 3.6 % [facility] Eosinophils Abs 0.3 0.0 - 0.4 x10(3)/[facility] LABORATORY Basophil % 0.9 % [facility] Baso Absolute 0.1 0.0 - 0.1 x10(3)/[facility] LABORATORY Immature Gran % 0.40 % [facility] Comment: Immature granulocytes(IG's)percentage and absolute count will include metamyelocytes, myelocytes, and promyelocytes. Blood smears from CBCs yielding IG's will be scanned manually for concordance. If this scan disagrees with the automated IG or if promyelocytes are noted, a manual differential will be performed. Immature Gran Absolute 0.03 0.00 - 0.04 x10(3)/[facility] LABORATORY Blood 08/04/2022 8:14 AM EST 08/04/2022 8:18 AM EST Narrative Resulting Agency Comment Spec In Lab Destiny L Juni [facility] HEMATOLOGY ORDERABLE S [facility] [place] [address] * (ABNORMAL) Hemogram (08/04/2022 8:14 AM EST) White Blood Cell 8.0 4.0 - 9.5 x10(3)/mc L [facility] Red Blood Cell 5.78(H) 4.00 - 5.21 x10(6)/[facility] LABORATORY Hemoglobin 17.0(H) 11.7 - 15.5 g/dL [facility] Hematocrit 52.6(H) 35.7 - 45.8 % [facility] Mean Cell Volume 91.0 82.6 - 94.[address] [facility] Mean Cell Hemoglobin 29.4 27.1 - 32.[address] [facility] Mean Cell Hemoglobin Concentration 32.3 31.7 - 35.0 g/dL [facility] Platelet 154 145 - 357 x10(3)/mc L [facility] RDW Standard Deviation 50.4(H) 37.0 - 46.[address] [facility] RDW coefficient of variation 15.0(H) 11.5 - 14.1 % [facility] Mean Platelet Volume 10.1 7.6 - 12.9 fL [facility] NRBC% auto 0.0 % [facility] NRBC Absolute 0.000 0.000 - 0.000 x10(3)/mc L [facility] Blood 08/04/2022 8:14 AM EST 08/04/2022 8:18 AM EST Narrative Resulting Agency Comment Spec In Lab Destiny L Alfredo [facility] HEMATOLOGY ORDERABLE S Performing Organization Address City/[facility] Co de Phone Number [facility] [place] [address] * Prothrombin Time (08/04/2022 8:14 AM EST) Prothrombin Time 10.8 9.4 - 12.[address] [facility] International Normalization Ratio 0.[address] [facility] Comment: An INR <2.0 indicates [...] Resulting Agency Comment Spec In Lab Destiny L Alfredo [facility] HEMATOLOGY ORDERABLE S [facility] [place] [address] * Creatinine (08/04/2022 8:14 AM EST) Creatinine 0.74 0.70 - 1.20 mg/dL [facility] Est Glomerular Filtration Rate 91 >=60 mL/min/1. 73 m?? [facility] Comment: This patient's estimated GFR [...] Agency Comment Spec In Lab Destiny Alfredo RO[facility]NER CHEMISTRY ORDERABLES [facility] [place] [address] documented in this encounter Visit Diagnoses Diagnosis Aneurysm of left internal carotid artery BUI with fibrosis Other chronic nonalcoholic liver disease documented in this encounter Care Teams [employer] Black Belt Engineer Relationship Specialty Start Date End Date Hai Lopez DO [address] [place] [id number] PCP - General Family Medicine 10/10/17 documented as of this encounter
--- OUTSIDE RECORDS SUMMARY | 2024-05-26 12:43 | XMS_ITS | Encounter Summary ---
Author Organization [facility] Address [facility] [place] [address] Care Team Providers Care Side Laster Name Role Phone Hai Lopez Corey MOORE Primary Care Provider [phone] Encounter Details Date Type Department Care Team (Late st Contact Info) Description 02/23/2022 10:30 AM EDT Office [place] [phone] Perla Hernandez MD [facility] [place] [address] BUI (nonalcoholic steatohepatitis); History of hepatitis C [...] Weight 95.1 kg (209 lb 11.2 oz) 022 10:21 AM EDT Height 165.1 cm (5' 5) 02/23/2022 10:2 1 AM EDT Body Mass Index 34.9 02/23/2022 10:21 AM EDT documented in this encounter Progress Notes * Perla Hernandez MD - 02/23/2022 10:30 AM EDT [...] so she went to the ED at [facility]. She was worked up, had a CT scan that was normal, and eventually diagnosed with pancreatitis, felt to be most likely due to gallstones. She was treated with IVF and morphine without complication. Her PCP gave her some medi cations for nausea and pain, she is unsure what the exact medications are. ?? Since D/C no abd pain, n/v, diarrhea, pruritis, jaundice. Occasional constipation. No blood in stool or melena. No fever. Maybe some fatigue and her appetite is not great, but she reports feeling stressed at work, and feels like this is the major cause of her low appetite and fatigue and that she is at her baseline for this. She has a history of AUD, but no longer drinks ETOH, her last drink was over 20 years ago. ?? Reports her mother in May due to COVID, as a result of this stress she has been smokingagain, about 1/2 PPD. Planning to see her [...] Vitals: 02/23/22 1021 BP: 122/75 BP Location ([facility]): Left arm Patient Position: Sitting BP Cuff [...] gallstones were seen on her ultrasound. Discussed thather Jardiance Maybe the underlying cause, and an alternative maybe required for management of her diabetes. Perla Hernandez MD Section of Gastroenterology & Hepatology [address] [place], [place] [id number] Time spent reviewing records prior to this encounter: 5 minutes Time spent during encounter with patient including counselin minutes Time spent documenting encounter after office visit: 5 minutes Approximate total time devoted to this single encounter on the day of the encounter: 30 minutes Cc: Hai Lopez DO * Salty Zamora - 02/23/2022 10:30 AM EDT MEDICAL STUDENT NOTE ID: Mary Beth is a 61 year old female with history of T2DM, BUI, SVR Hep C, GERD and COPD who presentstoday for follow-up and routine HCC US screening. [...] so she went to the ED at [facility]. She was worked up, had a [...] pruritis, jaundice. Occasional constipation. No blood in stool or melena. No fever. Maybe some fatigue and her appetite is not great, but she reports feeling stressed at work, and feels like this is the major cause of her low appetite and fatigue and that she is at her baseline for this. She has a history of AUD, but no longer drinks ETOH, her last drink was over 20 years ago. Reports her mother in May due to COVID, as a result of this stress she has been smokingagain, about 1/2 PPD. Planning to see her [...] non-distended abdomen. Sharp tenderness and involuntary guarding topalpation in epigastrium, with mild tenderness to palpation [...] and genetic or infectious causes. Based on prevalence alone, the most likely cause of Odaliss acute pancreatitis would be gallstones. She is uncertain of whether she had an US during her workup at [facility], but we will review the results of her US from today for any evidence of GB or CBD dilation and will also request access to Mary Beth's records from her hospitalization at [facility] for further review. Her ALT, AST, and T bili today were normal, but her alk phos was elevated at 119 which could potentially indicate some CBD inflammation from gallstones, making gallstone pancreatitis more likely. Although Mary Beth has not drank ETOH for several years, it is possible that her historical drinking predisposed her to pancreatic inflammation and a gallstone precipitated an acute attack. Another notable possibility to consider is Mary Beth's Jardiance for her T2DM, as GLP-1 agonists can also precipitatepancreatitis. This would be unfortunate, as GLP-1 agonists are also effective for managing BUI, but Mary Beth should follow-up with her PCP to discuss whether it would be worthwhile to discontinue her GLP-1 and trial another diabetic medication. In the meantime, she should monitor for any symptoms concerning for pancreatitis complications such as fever (abscess) or early satiety/abdominal pressure (p seudocyst). She already reports eating a diet high in vegetables and fiber, which she should also continue, avoiding fatty foods and continue working to stay well-hydrated to make future attacks lesslikely. Based on her age, genetic causes are much less likely to be involved for Mary Beth as this is her firstepisode of pancreatitis, andgenetic causes such as CFTR mutations tend to present with more chronicpancreatitis. Severely elevated triglycerides (>1,000) can also precipitate pancreatitis, and based on Mary Beth's T2DM she should follow-up with her PCP to recheck her lipids and if her triglyceridesare elevated, consider fibrate therapy. BUI Except for her mildly elevated alk phos, Mary Beth's LFTs were normal and she reports no symptoms such as jaundice, pruritis, or RUQ pain. We will review her screening US, which has been benign for several years, and barring any abnormalities she should plan to follow-up again in 6 months for US screening and follow-up labs. As described above, she should also continue to work on her diet and exercise to help improve her hepatic function. Salty Zamora, MS3 [facility] documented in this encounter Plan of Treatment [...] who have questions, please contact the health care giver that requested your imaging first. Tonja Ortiz, [facility] & Dept Chair - Rad Electronically Signed Final Report ?? 03/16/2023 08:28 am Narrative 03/16/2023 8:28 AM EDT Abdominal ? (Signed Final 03/16/2023 08:28 am) PATIENT INFO: ID #: ? [id number] ?: ??[birth year] (62 yrs)(F) Name: ? MARY BETH HOLMAN ?Visit Date: 03/16/2023 08:18 am PERFORMED BY: Attending: ?Diana REBOLLAR, Tonja Leon Resident: ? Clinton ERBOLLAR, Esthela Raphael Performed By: ? Daren Rolle RDMS Referred By: ?PERLA HERNANDEZ Location: ? Home SERVICE(S) [facility] - Hepatology Protocol - Abdominal ?40550 Limited Survey Single Organ or Quadrant - [id number] INDICATIONS: hx Hep C, F3, HCC screening [...] 03/16/2023 08:28 am) PATIENT INFO: ID #: [id number] : 58 (62 yrs)(F) Name: MARY BETH HOLMAN Visit Date: 03/16/2023 08:18 am PERFORMED BY: Attending: Tonja Ortiz MD Resident: Esthela Alonzo MD Performed By: Daren Rolle RDMS Referred By: PERLA HERNANDEZ Location: Home SERVICE(S) PROVIDED: [facility] - Hepatology Protocol - Abdominal 20017 Limited Survey Single Organ or Quadrant - [id number] INDICATIONS: hx Hep C, F3, HCC screening [...] who have questions, please contact the health care giver that requested your imaging first. Tonja Ortiz, [facility] & Dept Chair - Rad Electronically Signed Final Report 03/16/2023 08:28 am Perla Hernandez MD IMG US GEN ORDERABLE S * Prothrombin Time (01/03/2023 12:58 PM EDT) Prothrombin Time 10.9 9.4 - 12.5 sec [facility] International Normalization Ratio 1.0 [facility] Comment: An INR <2.0 indicates [...] Lab Perla Hernandez MD HEMATOLOGY ORDERABLE S [facility] [place] [address] * (ABNORMAL) Comprehensive metabolic panel (non-fasting) (01/03/2023 12:58 PM EDT) Glucose 149 65 - 199 mg/dL [facility] Comment:Diabetes: >=200 mg/d L plus symptoms Blood Urea Nitrogen 15 8 - 18 mg/dL [facility] Creatinine 0.66(L) 0.70 - 1.20 mg/dL [facility] Sodium 139 135 - 145 mmol/L [facility] Potassium 4.3 3.5 - 5.0 mmol/L [facility] Comment: Please note: ??Patients with WBC >100,000 may have falsely elevated Potassium levels. ??For accurate Potassium quantification in these patients send serum separator tube (gold top) for subsequent determinations. ??Contact the Clinical Chemistry Laboratory if there are any questions. Chloride 101 98 - 107 mmol/L [facility] Carbon Dioxide 25 22 - 31 mmol/L [facility] Anion Gap 13 5 - 15 mmol/L [facility] Calcium 9.4 8.5 - 10.5 mg/dL [facility] Protein, Total 7.1 6.1 - 8.0 g/dL [facility] Albumin 4.5 3.2 - 5.2 g/dL [facility] Aspartate Aminotransferase 19 0 - 30 unit/L [facility] Alanine Aminotransferase 13 0 - 30 unit/L [facility] Alkaline Phosphatase 109(H) 35 - 105 unit/L [facility] Bilirubin, Total 0.3 0.2 - 1.3 mg/dL [facility] Est Glomerular Filtration Rate 99 >=60 mL/min/1. 73 m?? [facility] Comment: This patient's estimated GFR [...] Hernandez MD CHEMISTRY ORDERABLES Performing Organization Address City/State/[facility] Co de Phone Number [facility] [place] [address] documented in this encounter Visit Diagnoses Diagnosis BUI (nonalcoholic steatohepatitis) Other chronic nonalcoholic liver disease History of hepatitis C Personal history of other infectious and parasitic disease BUI (nonalcoholic steatohepatitis) Other chronic nonalcoholic liver disease History of hepatitis C Personal history of other infectious and parasitic disease documented in this encounter Care Teams Side Laster Relationship Specialty Start Date End Date Hai Lopez DO [facility] [address] [place] [address] PCP - General Family Medicine 10/10/17 documented as of this encounter
--- OUTSIDE RECORDS SUMMARY | 2024-05-26 12:43 | XMS_ITS | Encounter Summary ---
Author Organization [facility] [place] [address] Care Team Providers Care Clinical Lab Clerk Name Role Phone Hai Lopez Primary Care Provider Encounter Details Date Type Department Care Team (Late st Contact Info) Description 02/23/2022 Orders [place] [address] Yuliana Hernandez MD [facility] [place] [address] BUI (nonalcoholic steatohepatitis) Social History Tobacco Use [...] this encounter Results * AFP tumor marker (02/23/2022 8:38 AM EDT) Alpha Fetoprotein <1.9 <=8.3 ng/mL [facility] Comment: This result was generated using a Carl[employer] Jim immunoassay. ??Results obtained from other methods or manufacturers cannot be used interchangeably with this method. Blood 02/23/2022 8:38 AM EDT 02/23/2022 8:49 AM EDT Narrative Resulting Agency Comment Spec In Lab Yuliana Hernandez MD CHEMISTRY ORDERABLES Performing Organization Address [facility] Co de Phone Number [facility] [place] [address] * Prothrombin Time (02/23/2022 8:38 AM EDT) Prothrombin Time 11.0 9.4 - 12.5 sec [facility] International Normalization Ratio 1.0 [facility] Comment: An [...] MD HEMATOLOGY ORDERABLE S Performing Organization Address [facility] Co de Phone Number [facility] [place] [address] * (ABNORMAL) Comprehensive metabolic panel (non-fasting) (02/23/2022 8:38 AM EDT) Glucose 162 65 - 199 mg/dL [facility] Comment:Diabetes: >=200 mg/d L plus symptoms Blood Urea Nitrogen 12 8 - 18 mg/dL [facility] Creatinine 0.69(L) 0.70 - 1.20 mg/dL [facility] Sodium 139 135 - 145 [...] questions. Chloride 102 98 - 107 mmol/L [facility] Carbon Dioxide 25 22 - 31 mmol/L [facility] Anion Gap 12 5 - 15 mmol/L [facility] Calcium 9.2 8.5 - 10.5 mg/dL [facility] Protein, Total 7.6 6.1 - 8.0 g/dL [facility] Albumin 4.5 3.2 - 5.2 g/dL [facility] Aspartate Aminotransferase 25 0 - 30 unit/L [facility] Alanine Aminotransferase 15 0 - 30 unit/L [facility] Alkaline Phosphatase 119(H) 35 - 105 unit/L [facility] Bilirubin, Total 0.3 0.2 - 1.3 mg/dL [facility] Est Glomerular Filtration Rate 98 >=60 mL/min/1. 73 m?? [facility] Comment: This patient's estimated GFR [...] In Lab Yuliana Hernandez MD CHEMISTRY ORDERABLES [facility] [place] [address] documented in this encounter Visit Diagnoses Diagnosis BUI (nonalcoholic steatohepatitis) Other chronic nonalcoholic liver disease documented in this encounter Care Teams Clinical Lab Clerk Relationship Specialty Start Date End Date Hai Lopez DO [address] [place] [address] PCP - General Family Medicine 10/10/17 documented as of this encounter
--- OUTSIDE RECORDS SUMMARY | 2024-05-26 12:43 | XMS_ITS | Encounter Summary ---
Author Organization [facility] [place] [address] Care Team Providers Care Polygraph Operator Name Role Phone Hai Lopez DO Primary Care Provider [phone] Encounter Details Date Type Department Care Team (Late st Contact Info) Description 07/24/2022 Notes Only [place] [phone] Ana Trinidad RN Social History Tobacco Use [...] Progress Notes * Ana Trinidad RN - 07/24/2022 11:25 AM EST On 07/24/22 we have carefully reviewed your case with the Clinical Vertigo Team including your medical history, and any other previous diagnostic tests performed/forwarded by your referring provider. It's our recommendation that you have a VNG and vhit. Commercial Solar Sales Consultant has been made aware. documented in this encounter Plan of Treatment Not on file documented as of this encounter Visit Diagnoses Not on filedocumented in this encounter Care Teams Polygraph Operator Relationship Specialty Start Date End Date Hai Lopez DO [address] [place] [address] PCP - General Family Medicine 10/10/17 documented as of this encounter
--- OUTSIDE RECORDS SUMMARY | 2024-05-26 12:43 | XMS_ITS | Encounter Summary ---
Author Organization [facility] [place] [address] Care Team Providers Care Water Project Manager Name Role Phone Hai Lopez DO Primary Care Provider [phone] Encounter Details Date Type Department Care Team (Late st Contact Info) Description 09/04/2022 Telephone [facility] [place] [phone] Mindy Rapp RN Social History Tobacco Use Types Packs/Day Years Used Date Smoking Tobacco: Every Day Cigarettes 0.3 40 Smokeless Tobacco: Never Comments:down to 5 cigs. Alcohol Use Standard Drinks/Week Comments No 0 (1 standard drink = 0.6 oz pur e alcohol) [facility] Inpatient Questions Answer Date Recorded Does [...] as of this encounter Progress Notes * Mindy Rapp RN - 09/04/2022 9:16 AM EST Phone call to patient to hold Jardiance X 3 days before procedure per the diabetic medication adjustment guidelines. Last dose will be 3/2 for procedure 09/11. Patient acknowledged an understanding of the instructions. documented in this encounter Plan of Treatment Not on file documented as of this encounter Visit Diagnoses Not on filedocumented in this encounter Care Teams Water Project Manager Relationship Specialty Start Date End Date Hai Lopez DO [address] [place] [address] PCP - General Family Medicine 10/10/17 documented as of this encounter
--- OUTSIDE RECORDS SUMMARY | 2024-05-26 12:44 | XMS_ITS | Encounter Summary ---
Author Organization [facility] [place] [address] Care Team Providers Care Shovel Engineer Name Role Phone Hai Lopez Corey MOORE Primary Care Provider [phone] Reason for Visit * Auth/Cert Specialty Diagnoses / Procedures Referred By Cristal t Referred To Contact Diagnoses abd pain, diarrhea, nausea Procedures PRO UPPER GI ENDOSCOPY, DIAGNOSTIC PRO COLONOSCOPY, DIAGNOSTIC EGD, UPPER GI ENDOSCOPY COLONOSCOPY, DIAGNOSTIC Referral ID Status Reason Start Date Expiration Date Visits Re quested Visits Authorized [id number] 1 1 Encounter Details Date Type Department Care Team (Latest Contact Info) Description 10/10/2017 2:35 PM EDT - 10/10/2017 6:16 PM EDT Hospital En[place] [address] Yuliana Hernandez MD [facility] [place] [address] Discharge Disposition: Home Social History Tobacco Use Types Packs/Day Years Used Date Smoking Tobacco: Every Day Cigarettes 0.5 40 Smokeless Tobacco: Never Tobacco Cessation:Ready to Q uit: Yes Comments:pt. has obtained chantix Alcohol Use Standard Drinks/Week [...] 36.8 ??C (98.2 ??F) 10/10/2017 3:10 PM ED T Respiratory Rate 18 10/10/2017 4:35 PM EDT Oxygen Saturation 93% 10/10/2017 5:00 PM EDT Inhaled Oxygen Concentration - - Weight - - Height - - Body Mass Index - - documented in this encounter Discharge Instructions * Discharge Instructions* Alecai Cleaning RN - 10/10/2017 4:44 PM EDT [...] as directed. Your Doctor will tell you when to restart your prescribed blood thinners The IV [...] next colonoscopy. The results of your test and your risk for colorectal cancer will help your doctor decide how often you need to be checked. Sunday-Sunday Same Day Endo [phone]-[phone] Otherwise contact [phone] and ask to speak to the nailer hand publications writer Follow up care is a pan part of your treatment and safety. Be sure to make and go to all appointments, and call your doctor if you are having problems. Discharge instructions reviewed with patient who expresses understanding documented in this encounter Medications at Time of Discharge Medication Sig Dispensed Refills Start Date End Date ONETOUCH ULTRA TEST Strip 0 01/18/2015 ONE TOUCH DELICA 33 gauge Misc 0 01/18/2015 lisinopril (PRINIVIL;ZESTRIL) 20 mg Tablet Take 20 mg by mouth daily. 0 03/21/2015 albuterol (PROVENTIL HFA;VENTOLIN HFA;PROAIR) 90 mcg/actuation HFA Aerosol Inhaler Inhale 2 puffs into the lungs every 4 hours as needed for Wheezing. Use with spacer CHANTIX 0.5 mg Tablet take 1 tablet by mouth twice a day 0 10/01/2017 08/01/2022 gabapentin (NEURONTIN) 300 mg Capsule 0 10/03/2017 09/27/2018 promethazine-codei ne (PHENERGAN WITH CODEINE) 6.25-10 mg/5 mL Syrup TAKE 5MLS BY MOUTH EVERY 6 HOURS NEEDED 0 09/24/2017 09/27/2018 empagliflozin (JARDIANCE) 10 mg Tablet Take 10 mg by mouth daily. 0 09/27/2018 UNABLE TO FIND as needed. Med Name: taking humalog insulin//taking 2 to 20 units as needed 09/27/2018 cyclobenzaprine (FLEXERIL) 5 mg Tablet Take 5 mg by mouth as needed. 10/26/2017 atorvastatin (LIPITOR) 10 mg TabletIndications: hypercholesterolem ia Take 10 mg by mouth daily. Indications: Hypercholesterolemia 09/27/2018 omeprazole (PRILOSEC) 40 mg Capsule, Delayed Release(E.C.) Take 40 mg by mouth daily. 0 03/25/2015 09/13/2022 documented as of this encounter H&P Notes * Yuliana Hernandez MD - 10/10/2017 3:48 PM [...] Procedure Name Priority Date/Time Associated Diagnosis Comments SPECIMEN TO PATHOLOGY Routine 10/10/2017 4:32 PM EDT SURGICAL PATHOLOGY REPORT Routine 10/10/2017 4:19 PM EDT SPECIMEN TO PATHOLOGY Routine 10/10/2017 4:19 PM EDT SPECIMEN TO PATHOLOGY Routine 10/10/2017 4:19 PM EDT SPECIMEN TO PATHOLOGY Routine 10/10/2017 4:19 PM EDT COLONOSCOPY Routine 10/10/2017 3:58 PM EDT UPPER GI ENDOSCOPY Routine 10/10/2017 3: 57 PM EDT COLONOSCOPY, POLYPECTOMY, REMOVAL LESION BY SNARE (WRVU 4.57) 10/10/2017 3:56 PM EDT abd pain, diarrhea, nausea EGD WITH BIOPSY (WRVU 2.39) 10/10/2017 3:56 PM EDT abd pain, diarrhea, nausea documented in this encounter Results * Specimen to Pathology (10/10/2017 4:32 PM EDT) AP Specimen 10/10/2017 4:32 PM EDT 10/10/2017 4:32 PM EDT Narrative [facility] - 10/10/2017 4:32 PM EDT Specimen requisition ordered. ??Separate Pathology report to follow Richmond Orellana MD PATHOLOGY/CYTOLOGY ORDERABLES [facility] [place] [address] * Surgical Pathology Report (10/10/2017 4:19 PM EDT) Final Diagnosis [id number] ? Location: 4T; EA07; A The signing pathologist has (i) examined the relevant preparation(s) for the specimen(s) and (ii) rendered or confirmed the diagnosis(es). . ?Surgical Pathology DIAGNOSIS A - Stomach, ??biopsy: Gastric body-fundic mucosa ?? with intestinal metaplasia ??and patchy increase in chronic inflammatory cells. See discussion #1. B - Duodenum, ??biopsy: Duodenal mucosa within normal limits. C - Random ??biopsy: Colonic mucosa with pathcy reactive changes and focal, trace active colitis. D - Rectum, ??polypectomy: Hyperplastic polyp. CR-PX Electronically signed by: ??Conrad REBOLLAR PhD, Gunner Morrell Verified: ??10/17/2017 ?Pathologist Performed at: ??-[facility] [place] [facility] [place], [place], [place] DISCUSSION 1. ??There is no histological evidence of H.pylori. 2. ??The findings are non-specific. The differential diagnosis includes infection, drug, mechanical, diverticulosis, prep effect and incipient inflammatory bowel disease (IBD). Clinical correlation is recommended. CLINICAL INFORMATION Specimen Submitted: A - Stomach bx B - Duodenal bx C - Random bx r/o colitis D - Polyp - rectum Clinical History: Dyspepsia, diarrhea, screening Clinical Diagnosis: Same SPECIMEN PROCESSING A - Labeled/Fixative : Stomach biopsy, formalin. Quantity/Size: Three, 0.2-0.4 cm. Tissue Description: ??Soft, leonardo-pink tissue ??. Sections/Process ing: (T1) B - Labeled/Fixative : Duodenal biopsy, formalin. Quantity/Size: Three, averaging 0.3 cm. Tissue Description: ??Soft, leonardo-pink tissue ??. . SPECIMEN PROCESSING Sections/Process ing: (T1) C - Labeled/Fixative : Random biopsy, formalin. Quantity/Size: Multiple, 0.1-0.3 cm. Tissue Description: ??Soft, yellow-leonardo tissue ??. Sections/Process ing: (T2) D - Labeled/Fixative : Polyp-rectum, formalin. Quantity/Size: Single, 0.5 cm. Tissue Description: Polypoid, pink-leonardo tissue. Sections/Process ing: (T1) ??ejr 10/17/2017 4:32 PM EDT [facility] GI Biopsy 10/10/2017 4:19 PM EDT 10/10/2017 4:19 PM EDT GI Biopsy 10/10/2017 4:19 PM EDT 10/10/2017 4:19 PM EDT GI Biopsy 10/10/2017 4:19 PM EDT 10/10/2017 4:19 PM EDT GI Biopsy 10/10/2017 4:19 PM EDT 10/10/2017 4:19 PM EDT Richmond Orellana MD PATHOLOGY/CYTOLOGY ORDERABLES Performing Organization Address [facility]/ZIP Co de Phone Number [facility] [place] [address] * Specimen to Pathology (10/10/2017 4:19 PM EDT) AP Specimen 10/10/2017 4:19 PM EDT 10/10/2017 4:19 PM EDT Narrative [facility] - 10/10/2017 4:19 PM EDT Specimen requisition ordered. ??Separate Pathology report to follow Richmond Orellana MD PATHOLOGY/CYTOLOGY ORDERABLES Performing Organization Address [facility]/ZIP Co de Phone Number [facility] [place] [address] * Specimen to Pathology (10/10/2017 4:19 PM EDT) AP Specimen 10/10/2017 4:19 PM EDT 10/10/2017 4:19 PM EDT Narrative [facility] - 10/10/2017 4:19 PM EDT Specimen requisition ordered. ??Separate Pathology report to follow Richmond Orellana MD PATHOLOGY/CYTOLOGY ORDERABLES Performing Organization Address [facility] Co de Phone Number [facility] [place] [place] [address] * Specimen to Pathology (10/10/2017 4:19 PM EDT) AP Specimen 10/10/2017 4:19 PM EDT 10/10/2017 4:19 PM EDT Narrative [facility] - 10/10/2017 4:19 PM EDT Specimen requisition ordered. ??Separate Pathology report to follow Richmond Orellana MD PATHOLOGY/CYTOLOGY ORDERABLES Performing Organization Address [facility] [place] [address] * COLONOSCOPY (10/10/2017 3:58 PM EDT) COLONOSCOPY [facility] Endoscopy Procedure Date: 10/10/2017 3:58 PM ? Patient Name: Mary Beth Holman ? N: [id number] ? Date of : 1960 ? Age: 57 ? Order #: [id number] ? Instrument Name: [id number] ? Procedure: ? Colonoscopy Indications: ? Chronic [...] Hai Gallegos MD GENERAL SURGICAL ORDERABLES [employer] * UPPER GI ENDOSCOPY (10/10/2017 3:57 PM EDT) UPPER GI ENDOSCOPY [facility] Endoscopy Procedure Date: 10/10/2017 3:57 PM ? Patient Name: Mary Beth Holman ? N: [id number] ? Date of : 1960 ? Age: 57 ? Order #: [id number] ? Instrument Name: [id number] ? Procedure: ? Upper GI endoscopy Indications: [...] medication reactions. The ? Endoscope was introduced through the ? mouth, and advanced to the third part ? of duodenum. The patient tolerated ? the procedure well. The upper GI ? endoscopy was accomplished without ? difficulty. The patient tolerated the ? procedure well. ? Findings: ? [...] pathology results ? - Proceed with colonoscopy now ? Attending Participation: ? I personally performed the entire procedure. ? ___ Richmond Orellana MD 10/10/2017 4:12:46 PM This report has been signed electronically. Number of Addenda: 0 Note Initiated On: 10/10/2017 3:57 PM [employer] 10/10/2017 3:57 PM EDT Hai Gallegos MD GENERAL SURGICAL ORDERABLES [employer] documented in this encounter Visit Diagnoses Not on filedocumented in this encounter Active and Recently Administered Medications Times are shown in EDT. PRN Medication Order 10/08/2017 10/09/2017 10/10/2017 fentaNYL 50 mcg/mL multi-dose injection (CANCELED) ONCE PRN, Starting on Sun10/10/17 at 1558, Until Sun10/10/17 at 2016, Intra-Operative (Intra-Procedure), Routine 1553 (Given - Provid er: Victor Manuel Terrell RN)1558 (Given - Provider: Victor Manuel Terrell RN)1603 (Given - Provider: Victor Manuel Terrell RN)1606 (Given - Provider: Victor Manuel Terrell RN)1615 (Given - Provider: Victor Manuel Terrell RN)1620 (Given - Provider: Victor Manuel Terrell RN) midazolam (PF) (VERSED) 1 mg/mL multi-dose injection (CANCELED) ONCE PRN, Starting on Sun10/10/17 at 1558, Until Sun10/10/17 at 2016, Intra-Operative (Intra-Procedure), Routine 1554 (Given - Provid er: Victor Manuel Terrell RN)1558 (Given - Provider: Victor Manuel Terrell RN)1603 (Given - Provider: Victor Manuel Terrell RN)1606 (Given - Provider: Victor Manuel Terrell RN)1615 (Given - Provider: Victor Manuel Terrell RN) documented in this encounter Care Teams Shovel Engineer Relationship Specialty Start Date End Date Hai Lopez DO [address] [place] [address] PCP - General Family Medicine 10/10/17 documented as of this encounter
--- OUTSIDE RECORDS SUMMARY | 2024-05-26 12:44 | XMS_ITS | Encounter Summary ---
[place] [address] Care Team Providers Care Licensed Mortgage Loan Officer Name Role Phone Hai Gallegos MD Primary Care Provider [phone] Reason for Visit * Auth/Cert Specialty Diagnoses / Procedures Referred By Cristal t Referred To Contact Diagnoses Sialadenitis sialadenitis Procedures PRO EXCISION SUBMAXILLARY GLAND EXCISION SUBMANDIBULAR (SUBMAXILLARY) GLAND-GARY (WRVU 6.14) Referral ID Status Reason Start Date Expiration Date Visits Re quested Visits Authorized [id number] 1 1 Encounter Details Date Type Department Care Team (Late st Contact Info) Description 02/23/2017 8:30 AM EDT - 02/23/2017 11:01 AM EDT [place] [address] Salty Nice MD [facility] [place] [address] EXCISION SUBMANDIBULAR (SUBMAXILLARY) GLAND-GARY (WRVU 6.14) Social History Tobacco Use Types Packs/Day Years Used Date Smoking Tobacco: Every Day Cigarettes 0.5 40 Smokeless Tobacco: Never Alcohol Use Standard Drinks/Week Comments No 0 [...] EDT documented in this encounter Discharge Instructions * Discharge Instructions* Ruperto Barclay RN - 02/23/2017 11:21 AM EDT [...] of infection: increasing redness, swelling, foul drainage, if occurs contact M.D. Patients who have had endotrachial [...] acetaminophen (tylenol) can be taken at . * Patient Instructions* Berry Montez PA - 02/23/2017 10:30 AM EDT [...] discussed. Should you have questions, please call [phone] during business hours. After hours, call [phone] and ask to speak with the ENT resident insurance application investigator. documented in this encounter Medications at Time of Discharge Medication Sig Dispensed Refills Start Date End Date ONETOUCH ULTRA TEST Strip 0 01/18/2015 ONE TOUCH DELICA 33 gauge Misc 0 01/18/2015 lisinopril (PRINIVIL;ZESTRIL ) 20 mg Tablet Take 20 mg by mouth daily. 0 03/21/2015 albuterol (PROVENTIL HFA;VENTOLIN HFA;PROAIR) 90 mcg/actuation HFA Aerosol Inhaler Inhale 2 puffs into the lungs every 4 hours as needed for Wheezing. Use with spacer oxyCODONE (ROXICODONE) 5 mg Tablet Take 1 tablet by mouth every 4 hours as needed for Pain. 10 tablet 02/23/2017 09/28/2017 oxyCODONE (ROXICODONE) 5 mg Tablet Take 2.5 mg by mouth every 8 hours as needed for Pain. 10/2017 empagliflozin (JARDIANCE) 10 mg Tablet Take 10 mg by mouth daily. 0 09/27/2018 UNABLE TO FIND as needed. Med Name: taking humalog insulin//taking 2 to 20 units as needed 09/27/2018 insulin glargine Solution Inject 50 Units subcutaneously nightly. 10/11/19 cyclobenzaprine (FLEXERIL) 5 mg Tablet Take 5 mg by mouth as needed. 10/26/2017 atorvastatin (LIPITOR) 10 mg TabletIndications :hypercholesterol emia Take 10 mg by mouth daily. Indications: Hypercholesterolemia 09/27/2018 omeprazole (PRILOSEC) 40 mg Capsule, Delayed Release(E.C.) Take 40 mg by mouth daily. 0 03/25/2015 09/13/2022 documented as of this encounter H&P Notes * Berry Montez PA - 02/23/2017 8:34 AM EDT OTOLARYNGOLOGY - HEAD & NECK SURGERY PRE OP H&P Name: Mary Beth Holman Age/Sex: 56 y.o. female Attending: Salty Nice MD Interval History Mary Beth Holman's condition unchanged since H&P originally performed. Denies any new ED visits,hospitalizations, trauma, or new events. Has been overall [...] AM documented in this encounter Miscellaneous Notes * Op Note - Salty Nice MD - 02/23/2017 10:05 AM EDT [facility] [place] Patient Name: Mary Beth Holman : [id number] MR#: [id number] Case Date: 02/23/2017 Surgeon: Surgeon(s) and Role: * Salty Nice MD - Primary * Berry Montez PA Preoperative diagnosis: sialadenitis Postoperative diagnosis: sialadenitis Procedure(s) (LRB): EXCISION SUBMANDIBULAR (SUBMAXILLARY) GLAND-GARY (WRVU 6.14) (Left) : PA/BARBI office administrative assistant surgeon (no qualified resident available) [...] was marked and injected with 1% xylocaine [id number] epinephrine. Incision made through skin, fat and [...] running 4-0 monocryl for the skin with steristrips.No complications. Attestation: Case Date: 02/23/2017 I performed this procedure without the involvement of a resident. SALTY NICE MD 02/23/2017 documented in this encounter Plan of Treatment Not on file documented as of this encounter Procedures Procedure Name Priority Date/Time Associated Diagnosis Comments POCT GLUCOSE Routine 02/23/2017 10:41 AM EDT SURGICAL PATHOLOGY REPORT Routine 02/23/2017 10:01 AM EDT SPECIMEN TO PATHOLOGY Routine 02/23/2017 10:01 AM EDT EXCISION SUBMANDIBULAR (SUBMAXILLARY) GLAND-GARY (WRVU 6.14) 02/23/2017 8:36 AM EDT Sialadenitis POCT GLUCOSE Routine 02/23/2017 7:24 AM EDT documented in this encounter Results * POCT Glucose (02/23/2017 10:41 AM EDT) Glucose, POC 154 65 - 199 mg/dL [facility] Comment: Supplemental ranges: <140 mg/dL before meals <180 mg/dL all other times of the day Blood specimen (specimen) 02/23/2017 10:41 AM EDT 02/23/2017 10:41 AM EDT Salty Nice MD POINT OF CARE TEST ORDERABLES [facility] [place] [address] * Surgical Pathology Report (02/23/2017 10:01 AM EDT) Final Diagnosis [id number] ? Location: [facility]; A The signing pathologist has (i) examined the relevant preparation(s) for the specimen(s) and (ii) rendered or confirmed the diagnosis(es). . ?Surgical Pathology DIAGNOSIS A - Left submandibular gland, resection: Submandibular gland with rare mild acinar atrophy, minimal chronic inflammation, and a rare intraductal calcification. Electronically signed by: ??Mirella REBOLLAR, Rodo Elaine Verified: ??02/27/2017 ?Pathologist CLINICAL INFORMATION Specimen Submitted: A - Left submandibular gland Clinical History: Sialadenitis Clinical Diagnosis: Same SPECIMEN PROCESSING A - ??Labeled/Fixativ e: Left submandibular gland, fresh. Quantity/Size: Single, 4.5 x 2.5 x 2.1 cm, 13 gram. Tissue Description: Wu lobular tissue with a focally cauterized surface. A lobular cut surface demonstrate scattered erythema, although no solid lesions are identified. The central duct is patent and averages 0.2 cm in diameter, with no calculi identified. Sections/Processi ng: Inked and serially sectioned. (R4) ??leo 02/27/2017 9:16 AM EDT [facility] Salivary Gland 02/23/2017 10 :01 AM EDT 02/23/2017 10:01 AM EDT Salty Nice MD PATHOLOGY/CYTOLOGY ORDERABLES [facility] [place] [address] * Specimen to Pathology (surgical or derm) (02/23/2017 10:01 AM EDT) AP Specimen 02/23/2017 10:0 1 AM EDT 02/23/2017 10:01 AM EDT Narrative [facility] - 02/23/2017 10:01 AM EDT Specimen requisition ordered. ??Separate Pathology report to follow Salty Nice MD PATHOLOGY/CYTOLOGY ORDERABLES Performing Organization Address City/[facility] Co de Phone Number [facility] [place] [address] * POCT Glucose (02/23/2017 7:24 AM EDT) Glucose, POC 147 65 - 199 mg/dL [facility] Comment: Supplemental ranges: <140 mg/dL before meals <180 mg/dL all other times of the day Blood specimen (specimen) 02/23/2017 7:24 AM EDT 02/23/2017 7:24 AM EDT Salty Nice MD POINT OF CARE TEST ORDERABLES Performing Organization Address [facility] Co de Phone Number [facility] [place] [address] documented in this encounter Visit Diagnoses Diagnosis Sialadenitis Sialoadenitis documented in this encounter Administered Medications Inactive Administered Medications - up to 3 most recent administrations Medication Order MAR Action Action Date Dose Rate Site acetaminophen (TYLENOL) tablet 1,000 mg 1,000 mg, Oral, ONCE, 1 dose, On Sun02/23/17 at 0730, Maximum dose of acetaminophen is 4000 mg from all sources in 24 hours., Day of Surgery (Day of Procedure), Routine Given 02/23/2017 7:30 AM EDT 1,000 mg ampicillin-sulbactam (UNASYN) 3 g vial attach to sodium chloride 0.9% 100 mL Mini-Bag Plus 3 g, Intravenous, EVERY 6 HOURS SCHEDULED, First dose on Sun02/23/17 at 1200, Until Discontinued, Administer over 30 Minutes, Warning Vesicant/Irritant Medication , Indication for (Active or Suspected): Prophylaxis New Bag 02/23/2017 9:02 AM EDT 3 g fentaNYL 50mcg/mL injection 25 mcg, Intravenous, EVERY 5 MIN PRN, Starting on Sun02/23/17 at 1007, Until Sun02/23/17 at 1145, Pain, for 1-4 pain score, for 1-4 pain score Hold for respiratory rate less than 10 per minute. Maximum dose: 250 mcg over one hour., PACU Recovery, Routine Given 02/23/2017 11:01 AM EDT 25 mcg gabapentin (NEURONTIN) capsule 600 mg 600 mg, Oral, ONCE, 1 dose, On Sun02/23/17 at 0730, Day of Surgery (Day of Procedure), Routine Given 02/23/2017 7:30 AM EDT 600 mg gelatin adsorbable (GELFOAM) sponge ONCE PRN, Starting on Sun02/23/17 at 0958, Until Sun02/23/17 at 1350, Intra-Operative (Intra-Procedure) Given 02/23/2017 9:58 AM EDT 2 each 19- Surgical Site lactated Ringers infusion 1,000 mL 1,000 mL, at 100 mL/hr, Intravenous, CONTINUOUS, Starting on Sun02/23/17 at 0730, Until Sun02/23/17 at 1145, Day of Surgery (Day of Procedure) New Bag 02/23/2017 8:37 AM EDT New Bag 02/23/2017 7:29 AM EDT 1,000 mLs 100 mL/hr lidocaine (XYLOCAINE) 10 mg/mL (1 %) injection 3 mg 3 mg (0.3 mL), Subcutaneous, ONCE PRN, 1 dose, Starting on Sun02/23/17 at 0712, Until Sun02/23/17 at 0729, for discomfort with PIV insertion, Day of Surgery (Day of Procedure), Routine Given 02/23/2017 7:29 AM EDT 3 mg lidocaine-EPINEPHrine 1 %-1:200,000 injection ONCE PRN, Starting on Sun02/23/17 at 0919, Until Sun02/23/17 at 1350, Intra-Operative (Intra-Procedure), Routine Given 02/23/2017 9:19 AM EDT 4 mLs 19- Surgical Site oxyCODONE (ROXICODONE) immediate release tablet 5 mg 5 mg, Oral, ONCE, 1 dose, On Sun02/23/17 at 1130, Routine Given 02/23/2017 11:30 AM EDT 2.5 mg thrombin (bovine) (THROMBIN-JMI) solution ONCE PRN, Starting on Sun02/23/17 at 0957, Until 8/18/17 at 1350, Intra-Operative (Intra-Procedure) Given 02/23/2017 9:57 AM EDT 5,000 Units 19- Surgical Site documented in this encounter Active and Recently Administered Medications Times are shown in EDT. Scheduled Medication Order 02/21/2017 02/22/2017 02/23/2017 acetaminophen (TYLENOL) tablet 1,000 mg (COMPLETED) 1,000 mg, Oral, ONCE, 1 dose, On Sun02/23/17 at 0730, Maximum dose of acetaminophen is 4000 mg from all sources in 24 hours., Day of Surgery (Day of Procedure), Routine 0730 (Given - Provid er: Carmen Basurto RN) ampicillin-sulbactam (UNASYN) 3 g vial attach to sodium chloride 0.9% 100 mL Mini-Bag Plus 3 g, Intravenous, EVERY 6 HOURS SCHEDULED, First dose on Sun02/23/17 at 1200, Until Discontinued, Administer over 30 Minutes, Warning Vesicant/Irritant Medication , Indication for (Active or Suspected): Prophylaxis 0902 (New Bag - Prov ider: Niurka Quinteros CRNA) gabapentin (NEURONTIN) capsule 600 mg (COMPLETED) 600 mg, Oral, ONCE, 1 dose, On Sun02/23/17 at 0730, Day of Surgery (Day of Procedure), Routine 0730 (Given - Provid er: Carmen Basurto RN) oxyCODONE (ROXICODONE) immediate release tablet 5 mg (COMPLETED) 5 mg, Oral, ONCE, 1 dose, On Sun02/23/17 at 1130, Routine 1130 (Given - Provid er: Ruperto Barclay RN) Continuous Medication Order 02/21/2017 02/22/2017 02/23/2017 lactated Ringers infusion 1,000 mL (CANCELED) 1,000 mL, at 100 mL/hr, Intravenous, CONTINUOUS, Starting on Sun02/23/17 at 0730, Until Sun02/23/17 at 1145, Day of Surgery (Day of Procedure) 0729 (New Bag - Prov ider: Carmen Basurto RN)0837 (New Bag - Provider: Niurka Quinteros CRNA)1020 (Anesthesia Volume Adjustment - Provider: Niurka Quinteros CRNA)1039 (Anesthesia Volume Adjustment - Provider: Niurka Quinteros CRNA) PRN Medication Order 02/21/2017 02/22/2017 02/23/2017 fentaNYL 50mcg/mL injection (CANCELED)(Linked Group 1) 25 mcg, Intravenous, EVERY 5 MIN PRN, Starting on Sun02/23/17 at 1007, Until Sun02/23/17 at 1145, Pain, for 1-4 pain score, for 1-4 pain score Hold for respiratory rate less than 10 per minute. Maximum dose: 250 mcg over one hour., PACU Recovery, Routine 1101 (Given - Provid er: Ruperto Barclay RN) gelatin adsorbable (GELFOAM) sponge (CANCELED) ONCE PRN, Starting on Sun02/23/17 at 0958, Until Sun02/23/17 at 1350, Intra-Operative (Intra-Procedure) 0958 (Given - Provid er: Salty Nice MD) lidocaine (XYLOCAINE) 10 mg/mL (1 %) injection 3 mg (COMPLETED) 3 mg (0.3 mL), Subcutaneous, ONCE PRN, 1 dose, Starting on Sun02/23/17 at 0712, Until Sun02/23/17 at 0729, for discomfort with PIV insertion, Day of Surgery (Day of Procedure), Routine 0729 (Given - Provid er: Carmen Basurto RN) lidocaine-EPINEPHrine 1 %-1:200,000 injection (CANCELED) ONCE PRN, Starting on Sun02/23/17 at 0919, Until Sun02/23/17 at 1350, Intra-Operative (Intra-Procedure), Routine 0919 (Given - Provid er: GOMEZ Myles) thrombin (bovine) (THROMBIN-JMI) solution (CANCELED) ONCE PRN, Starting on Sun02/23/17 at 0957, Until Sun02/23/17 at 1350, Intra-Operative (Intra-Procedure) 0957 (Given - Provid er: Salty Nice MD) No Frequency Medication Order 02/21/2017 02/22/2017 02/23/2017 fentaNYL Citrate (PF) 100 mcg/2 mL (50 mcg/mL) syringe Starting on Sun02/23/17 at 1054, 1 dose, Until Sun02/23/17 at 1350, RUPERTO BARCLAY: cabinet override 1100 (Due) Linked Groups Order Group 1: fentaNYL 50mcg/mL injection (CANCELED)Jump to med 25 mcg, Intravenous, EVERY 5 MIN PRN, Starting on Sun02/23/17 at 1007, Until Sun02/23/17 at 1145, Pain, for 1-4 pain score, for 1-4 pain score Hold for respiratory rate less than 10 per minute. Maximum dose: 250 mcg over one hour., PACU Recovery, Routine Or fentaNYL 50mcg/mL injection (CANCELED) 50 mcg, Intravenous, EVERY 5 MIN PRN, Starting on Sun02/23/17 at 1007, Until Sun02/23/17 at 1145, Pain, for 5-10 pain score, for 5-10 pain score Hold for respiratory rate less than 10 per minute. Maximum dose: 250 mcg over one hour., PACU Recovery, Routine documented in this encounter Care Teams Licensed Mortgage Loan Officer Relationship Specialty Start Date End Date Hai Gallegos MD [address] [place] [address] PCP - General 05/31/10 10/09/17 documented as of this encounter
--- OUTSIDE RECORDS SUMMARY | 2024-05-26 12:44 | XMS_ITS | Encounter Summary ---
Author Organization [facility] [place] [address] Care Team Providers Care Instrumentation Engineer Name Role Phone ChengrosemaryHai DO Primary Care Provider [phone] Reason for Visit * Diagnostic Test (Routine) - Closed Specialty Diagnoses / Procedures Referred By Contac t Referred To Contact Radiology Diagnoses Epigastric abdominal pain Procedures NM Gastric Emptying Scan Yuliana Hernandez MD [facility] [address] [facility] [place] [address] Referral ID Status Reason Start Date Expiration Date V isits Requested Visits Authorized [id number] Closed Specialty Service Requested 04/01/2018 04/01/2019 5 5 Encounter Details Date Type Department Care Team (Latest Contact Info) Description 05/15/2018 9:25 AM EST - 05/15/2018 11:59 PM [facility] Hospital Encounter [place] [address] Yuliana Hernandez MD [facility] [address] Discharge Disposition: Home Social History Tobacco Use Types Packs/Day Years Used Date Smoking Tobacco: Every Day Cigarettes 0.5 40 Smokeless Tobacco: Never Comments:down to 5 [...] 2 to 20 units as needed 09/27/2018 atorvastatin (LIPITOR) 10 mg TabletIndications: hypercholesterolem ia Take 10 mg by mouth daily. Indications: Hypercholesterolemia 09/27/2018 omeprazole (PRILOSEC) 40 mg Capsule, Delayed Release(E.C.) Take 40 mg by mouth daily. 0 03/25/2015 09/13/2022 documented as of this encounter Plan of Treatment Not on file documented as of this encounter Procedures Procedure Name Priority Date/Time Associated Diagnosis Comments NM GASTRIC EMPTYING SCAN Routine 05/15/2018 12:46 PM EST Epigastric abdominal pain documented in this encounter Results * NM Gastric Emptying Scan (05/15/2018 12:46 PM EST) Anatomical Region Laterality Modality Nuclear Medicine Impressions 05/15/2018 1:52 PM EST Normal gastric emptying Narrative 05/15/2018 1:52 PM EST EXAMINATION: NM GASTRIC EMPTYING SCAN CLINICAL HISTORY: epigastric pain and bloating after PO intake TECHNIQUE: A standard meal was labeled with 0.5 mCi of technetium-99m sulfur colloid and ingested. Images of the stomach were obtained in the anterior and posterior projections immediately thereafter and 1, 2, and 3 hours later. COMPARISON: None FINDINGS: Activity fills the stomach on the initial images obtained immediately after ingesting the meal. Small bowel is visible at one hour. There is minimal activity present in the stomach at 3 hours. Quantitative analysis: 2 hours: 20 percent remains in the stomach (normal less than 60%) 3 hours: 6 percent remains in the stomach (normal less than 10% at four hours) Procedure Note Terry Whitman MD - 05/15/2018 EXAMINATION: NM GASTRIC EMPTYING SCAN CLINICAL HISTORY: epigastric pain and bloating after PO intake TECHNIQUE: A standard meal was labeled with 0.5 mCi of technetium-99msulfur colloid and ingested. Images of the stomach were obtained in the anteriorand posterior projections immediately thereafter and 1, 2, and 3 hourslater. COMPARISON: None FINDINGS: Activity fills the stomach on the initial images obtained immediatelyafter ingesting the meal. Small bowel is visible at one hour. There is minimal activity present in the stomach at 3 hours. Quantitative analysis: 2 hours: 20 percent remains in the stomach (normal less than 60%) 3 hours: 6 percent remains in the stomach (normal less than 10% at fourhours) IMPRESSION Normal gastric emptying Yuliana Hernandez MD [facility] [place] ORDERABLES documented in this encounter Visit Diagnoses Not on filedocumented in this encounter Care Teams Instrumentation Engineer Relationship Specialty Start Date End Date Hai Loepz DO [address] [place] [address] PCP - General Family Medicine 10/10/17 documented as of this encounter
--- OUTSIDE RECORDS SUMMARY | 2024-05-26 12:44 | XMS_ITS | Encounter Summary ---
Author Organization [facility] [place] [address] Care Team Providers Care Sales Support Coordinator Name Role Phone ChengrosemaryHai DO Primary Care Provider [phone] Reason for Visit * Diagnostic Test (Routine) - Closed Specialty Diagnoses / Procedures Referred By Contac t Referred To Contact Radiology Diagnoses Epigastric abdominal pain Procedures NM Gastric Emptying Scan Yuliana Hernandez MD [facility] [place] [address] [facility] [place] [address] Referral ID Status Reason Start Date Expiration Date V isits Requested Visits Authorized [id number] Closed Specialty Service Requested 04/01/2018 04/01/2019 5 5 Encounter Details Date Type Department Care Team (Latest Contact Info) Description 05/15/2018 9:25 AM EST - 05/15/2018 11:59 PM [facility] Hospital En[place] [address] [facility] [place] [address] Discharge Disposition: Home Social History [...] IMPRESSION Normal gastric emptying Yuliana Hernandez MD [facility] [place] documented in this encounter Visit Diagnoses Not on filedocumented in this encounter Care Teams Sales Support Coordinator Relationship Specialty Start Date End Date Hai Lopez DO [address] [place] [id number] PCP - General Family Medicine 10/10/17 documented as of this encounter
--- OUTSIDE RECORDS SUMMARY | 2024-05-26 12:44 | XMS_ITS | Encounter Summary ---
[place] [address] Care Team Providers Care Irs Agent Name Role Phone Hai Gallegos MD Primary Care Provider [phone] Reason for Visit * Reason Comments Follow Up Surgery 1 week post-op DOS Encounter Details Date Type Department Care Team (Latest Contact Info) Description 03/02/2017 4:30 PM EDT Office [place] [address] Berry Montez PA [address] [address] [place] [address] H/O submandibular gland removal Social History Tobacco Use Types Packs/Day Years [...] in this encounter Progress Notes * Berry Montez PA - 03/02/2017 4:30 PM EDT [facility] Otolaryngology - Head and Neck Surgery Berry Montez PA-C 03/02/17 5:20 PM [place] [id number] Office Patient Name: Mary Beth Holman Date [...] post -op course has been uneventful. She has some lasting pain in the left submandibular region but this is well controlled with OTC pain medications. Caring for incision site as recommended. She has resumed a normal diet at this point. She denies: dysphagia, fever, drainage from the surgical site, xerostomia, dyspnea, bleeding from the oralcavity, facial paralysis. She has continued to smoke [...] (WRVU 6.14) performed by Salty Butler MD [facility] MAIN OR ??? WRIST SURGERY Left 2 [...] Tongue and floor of mouth soft without lesions or masses. Hard palate without [...] up as needed. Berry Montez PA-C 03/02/2017 [place], [place] [address] Office documented in this encounter Plan of Treatment Not on file documented as of this encounter Visit Diagnoses Diagnosis H/O submandibular gland removal Personal history of surgery to other organs documented in this encounter Care Teams Irs Agent Relationship Specialty Start Date End Date Hai Gallegos MD [address] [place] [address] PCP - General 05/31/10 10/09/17 documented as of this encounter
--- OUTSIDE RECORDS SUMMARY | 2024-05-26 12:44 | XMS_ITS | Encounter Summary ---
Author Organization [facility] Address [facility] [place] [address] Care Team Providers Care Metal Miner Blasting Name Role Phone Hai Lopez Primary Care Provider [phone] Encounter Details Date Type Department Care Team (Latest Contact Info) Description 08/22/2018 8:32 AM EST - 08/22/2018 11:59 PM EST Hospital En[place] [id number] Perla Hernandez MD [facility] [place] [address] Hepatic cirrhosis, unspecified hepatic cirrhosis type, unspecified whether ascites present Discharge Disposition: Home Social History Tobacco Use Types Packs/Day Years Used Date Smoking Tobacco: Every Day Cigarettes 0 40 Smokeless Tobacco: Never Comments:down to 5 [...] as needed for Wheezing. Use with spacer BD ULTRA-FINE SHORT PEN NEEDLE 31 gauge x 5/16 Needle USE TO ADMINISTER LANTUS SOLORSTAR 0 06/08/2018 09/27/2018 LANTUS SOLOSTAR U-100 INSULIN pen inject 52 units subcutaneously once daily 0 08/05/20182022 CHANTIX 0.5 mg Tablet take 1 tablet [...] Priority Date/Time Associated Diagnosis Comments US ABDOMEN COMPLETE Routine 08/22/2018 9 :35 AM EST Hepatic cirrhosis, unspecified hepatic cirrhosis type, unspecified whether ascites present documented in this encounter Results * US Abdomen Complete (08/22/2018 9:35 AM EST) Anatomical Region Laterality Modality Abdomen, Vascular Ultrasound 08/22/2018 9:36 AM EST Impressions 08/22/2018 1:04 PM EST 1. Hepatopedal flow is demonstrated within the liver. Liver is heterogeneous and slightly increased in echotexture. 2. CBD 5 mm. No cholelithiasis. ARM appearing right and left kidney without evidence for hydronephrosis. 3. No splenomegaly. Abdominal aorta where visualized is normal in caliber as is the IVC. Thank you for letting us participate in the care of this patient. For questions regarding this report, please contact the number below. Electronically signed by: Jing Betancur MD, [facility] ([phone]), at 08/22/2018 10:44 AM ?Jing Betancur, Staff Physician Electronically Signed Final Report ?? 08/22/2018 01:03 pm Narrative 08/22/2018 1:04 PM EST Abdominal ?(Signed Final 08/22/2018 01:03 pm) PATIENT INFO: ID #: ? [id number] ?: ??[birth year] (57 yrs) Name: ? MARY BETH ANTUNEZ ?Visit Date: 08/22/2018 09:36 am PERFORMED BY: Performed By: ? More Mccullough RDMS Attending: ?Gypsy REBOLLAR, Jing Yan Resident: ? Kalen REBOLLAR, Max Valentino Referred By: ?PERLA HERNANDEZ Location: ? [place] SERVICE(S) PROVIDED: ??[facility] - Abdominal Complete Survey - [id number] ?[id number] INDICATIONS: ??cirrhosis, hx of Hep C, HCC screening, ??assess for portal hypertension ------ LIVER: ------ Right Lobe Length: ?? 18.8 ?? cm Echogenicity/Echotexture: ?? Normal Portal Veins: ?Hepatopetal GALLBLADDER: Cholelithiasis: ?No stones visualized Focal Tenderness: ?Negative sonographic Becerril's sign BILIARY TRACT: Intrahepatic Ducts: ?? Normal Extrahepatic Ducts: ?? Normal Common Duct Size: ? 5.0 ? mm --------- PANCREAS: --------- Head: ? Normal Tail: ? Normal Body: ? Normal ------- SPLEEN: ------- Size (cm) ?L: ??11.6 ?AP: ??5.5 ? TV: ??5.1 Vol (ml): ?170.4 Comment: ?Normal size and appearance RIGHT KIDNEY: Size (cm) ?L: ??10.9 Cortical Thickness: ?Normal Cortical Echogenicity: ?? Normal Hydronephrosis: ?No sonographic evidence LEFT KIDNEY: Size (cm) ?L: ??12.3 Cortical Thickness: ?Normal Cortical Echogenicity: ?? Normal Hydronephrosis: ?No sonographic evidence ------ AORTA: ------ Measurements (cm): Proximal ? AP: ?? 2.0 Mid ?AP: ?? 1.4 Distal ? AP: ?? 1.4 Comment: ?Normal in caliber where visualized ---- IVC: ---- Normal in caliber where visualized Procedure Note Jing Betancur MD - 08/22/2018 Abdominal (Signed Final 08/22/2018 01:03 pm) PATIENT INFO: ID #: [id number] : [birth year] (57 yrs) Name: MARY BETH ANTUNEZ Visit Date: 08/22/2018 09:36 am PERFORMED BY: Performed By: More Mccullough RDMS Attending: Jing Betancur MD Resident: Max Higuera MD Referred By: PERLA HERNANDEZ Location: [place] SERVICE(S) PROVIDED: [facility] - Abdominal Complete Survey - [id number] INDICATIONS: cirrhosis, hx of Hep C, HCC [...] AP: 1.4 Comment: Normal in caliber where visualized ---- IVC: ---- Normal in caliber where visualized IMPRESSION 1. Hepatopedal flow is demonstrated within the liver. Liver is heterogeneous and slightly increased in echotexture. 2. CBD 5 mm. No cholelithiasis. ARM appearing right and left kidney without evidence for hydronephrosis. 3. No splenomegaly. Abdominal aorta where visualized is normal in caliber as is the IVC. Thank you for letting us participate in the care of this patient. For questions regarding this report, please contact the number below. Jing Betancur, Staff Physician Electronically Signed Final Report 08/22/2018 01:03 pm Perla Hernandez MD IMG US GEN ORDERABLE S documented in this encounter Visit Diagnoses Diagnosis Hepatic cirrhosis, unspecified hepatic cirrhosis type, unspecified whether ascites present documented in this encounter Care Teams Metal Miner Blasting Relationship Specialty Start Date End Date Hai Lopez DO [address] [place] [address] PCP - General Family Medicine 10/10/17 documented as of this encounter
--- OUTSIDE RECORDS SUMMARY | 2024-05-26 12:44 | XMS_ITS | Encounter Summary ---
Author Organization [facility] Address [facility] [place] [address] Care Team Providers Care Aircraft Dispatcher Name Role Phone Hai Gallegos MD Primary Care Provider [phone] Encounter Details Date Type Department Care Team (Latest Contact Info) Description 08/20/2017 - 08/20/2017 11:59 PM EST Hospital Encounter Radiology Library [place] [id number] Hai Gallegos MD [address] [place] [address] Discharge Disposition: Home Social History Tobacco Use [...] Associated Diagnosis Comments FILM LIBRARY STORAGE ONLY DX CHEST Routine 08/20/2017 12:00 AM EST documented in this encounter Results * Film Library- Storage Only DX Chest (08/20/2017 12:00 AM EST) Narrative [facility] - 08/21/2017 4:54 PM EST This exam is for storage only and is auto-finalizing. Hai Gallegos MD IMG FILM LIBRARY ORDERABLES [place], [place] documented in this encounter Visit Diagnoses Not on filedocumented in this encounter Care Teams Aircraft Dispatcher Relationship Specialty Start Date End Date Hai Gallegos MD [address] [place] [address] PCP - General 05/31/10 10/09/17 documented as of this encounter
--- OUTSIDE RECORDS SUMMARY | 2024-05-26 12:44 | XMS_ITS | Encounter Summary ---
[place] [address] Care Team Providers Care Surveillance Monitor Name Role Phone Hai Lopez Corey MOORE Primary Care Provider Reason for Visit * Auth/Cert Specialty Diagnoses / Procedures Referred By Cristal t Referred To Contact Diagnoses abd pain, diarrhea, nausea Procedures PRO UPPER GI ENDOSCOPY, DIAGNOSTIC PRO COLONOSCOPY, DIAGNOSTIC EGD, UPPER GI ENDOSCOPY COLONOSCOPY, DIAGNOSTIC Referral ID Status Reason Start Date Expiration Date Visits Re quested Visits Authorized [id number] 1 1 Encounter Details Date Type Department Care Team (Late st Contact Info) Description 10/10/2017 3:30 PM EDT - 10/10/2017 4:30 PM EDT Surgery [place] [address] Richmond Orellana MD [facility] [place] [address] EGD WITH BIOPSY (WRVU 2.39) Social History Tobacco Use Types Packs/Day Years [...] this encounter Discharge Instructions * Discharge Instructions* Alecia Cleaning RN - 10/10/2017 4:44 PM EDT [...] to be checked. Sunday-Sunday Same Day Endo [phone] Otherwise contact [phone] and ask to speak to the farm equipment engineer mission planner Follow up care is a pan part [...] as of this encounter H&P Notes * Perla Hernandez MD - 10/10/2017 3:48 PM EDT Patient Name: Mary Beth Holman Patient Age: 57 y.o. Birthdate: 1960 Admit date: 10/10/2017 Attending Physician: Perla Hernandez MD Gastroenterology and Hepatology Pre-Procedure History [...] PM EDT 10/10/2017 4:32 PM EDT Narrative [facility] - 10/10/2017 4:32 PM EDT Specimen requisition ordered. ??Separate Pathology report to follow Richmond Orellana MD PATHOLOGY/CYTOLOGY ORDERABLES [facility] [place] [address] * Surgical Pathology Report (10/10/2017 4:19 PM EDT) Final Diagnosis [id number] ? Location: 4T; EA07; A The signing [...] Gunner Morrell Verified: ??10/17/2017 ?Pathologist Performed at: ??-[facility] Dept. of Pathology, [place], [place] DISCUSSION 1. ??There is no histological [...] ing: (T1) ??ejr 10/17/2017 4:32 PM EDT [facility] GI Biopsy 10/10/2017 4:19 PM EDT 10/10/2017 4:19 PM EDT GI Biopsy 10/10/2017 4:19 PM EDT 10/10/2017 4:19 PM EDT GI Biopsy 10/10/2017 4:19 PM EDT 10/10/2017 4:19 PM EDT GI Biopsy 10/10/2017 4:19 PM EDT 10/10/2017 4:19 PM EDT Richmond Orellana MD PATHOLOGY/CYTOLOGY ORDERABLES Performing Organization Address [facility]/ZIP Co de Phone Number [facility] [place] [address] * Specimen to Pathology (10/10/2017 4:19 PM EDT) AP Specimen 10/10/2017 4:19 PM EDT 10/10/2017 4:19 PM EDT Narrative [facility] - 10/10/2017 4:19 PM EDT Specimen requisition ordered. ??Separate Pathology report to follow Richmond Orellana MD PATHOLOGY/CYTOLOGY ORDERABLES Performing Organization Address [facility]/ZIP Co de Phone Number [facility] [place] [address] * Specimen to Pathology (10/10/2017 4:19 PM EDT) AP Specimen 10/10/2017 4:19 PM EDT 10/10/2017 4:19 PM EDT Narrative [facility] - 10/10/2017 4:19 PM EDT Specimen requisition ordered. ??Separate Pathology report to follow Richmond Orellana MD PATHOLOGY/CYTOLOGY ORDERABLES Performing Organization Address [facility] [place] [address] * Specimen to Pathology (10/10/2017 4:19 PM EDT) AP Specimen 10/10/2017 4:19 PM EDT 10/10/2017 4:19 PM EDT Narrative [facility] - 10/10/2017 4:19 PM EDT Specimen requisition ordered. ??Separate Pathology report to follow Richmond Orellana MD PATHOLOGY/CYTOLOGY ORDERABLES Performing Organization Address [facility] [place] [address] * COLONOSCOPY (10/10/2017 3:58 PM EDT) COLONOSCOPY [facility] Endoscopy Procedure Date: 10/10/2017 3:58 PM ? Patient Name: Mary Beth Holman ? N: [id number] ? Date of : 1960 ? Age: 57 ? Order #: [id number] ? Instrument Name: [id number] ? Procedure: ? Colonoscopy Indications: ? Chronic [...] (10/10/2017 3:57 PM EDT) UPPER GI ENDOSCOPY [facility] Endoscopy Procedure Date: 10/10/2017 3:57 PM ? Patient Name: Mary Beth Holman ? N: [id number] ? Date of : 1960 ? Age: 57 ? Order #: [id number] ? Instrument Name: [id number] ? Procedure: ? Upper GI endoscopy Indications: [...] Dose Rate Site fentaNYL 50 mcg/mL multi-dose injection ONCE PRN, Starting on Sun10/10/17 at 1558, Until Sun10/10/17 at 2016, Intra-Operative (Intra-Procedure), Routine Given 10/10/2017 4:20 PM EDT 50 mcg Given 10/10/2017 4:15 PM EDT 50 mcg Given 10/10/2017 4:06 PM EDT 25 mcg midazolam (PF) (VERSED) 1 mg/mL multi-dose injection ONCE PRN, Starting on Sun10/10/17 at 1558, Until Sun10/10/17 at 2015, Intra-Operative (Intra-Procedure), Routine Given 10/10/2017 4:15 PM EDT 1 mg Given 10/10/2017 4:06 PM EDT 1 mg Given 10/10/2017 4:03 PM EDT 1 mg documented in this encounter Active and Recently Administered Medications Times are shown in EDT. PRN Medication Order 10/08/2017 10/09/2017 10/10/2017 fentaNYL 50 mcg/mL multi-dose injection (CANCELED) ONCE PRN, Starting on Sun10/10/17 at 1558, Until Sun10/10/17 at 2015, Intra-Operative (Intra-Procedure), Routine 1553 (Given - Provid [...] Until Sun10/10/17 at 2015, Intra-Operative (Intra-Procedure), Routine 1554 (Given - Provid er: Victor Manuel Terrell RN)1558 (Given - Provider: Victor Manuel Terrell RN)1603 (Given - Provider: Victor Manuel Terrell RN)1606 (Given - Provider: Victor Manuel Terrell RN)1615 (Given - Provider: Victor Manuel Terrell RN) documented in this encounter Care Teams Surveillance Monitor Relationship Specialty Start Date End Date Hai Lopez DO [address] [place] [address] PCP - General Family Medicine 10/10/17 documented as of this encounter
--- OUTSIDE RECORDS SUMMARY | 2024-05-26 12:44 | XMS_ITS | Encounter Summary ---
Author Organization [facility] Address [facility] [place] [address] Care Team Providers Care Sponge Packer Name Role Phone Hai Gallegos MD Primary Care Provider [phone] Encounter Details Date Type Department Care Team (Latest Contact Info) Description 08/16/2017 12:05 AM EST - 08/16/2017 11:59 PM EST Hospital Encounter Radiology Library at [facility] [place] [address] Hai Gallegos MD [address] [place] [id number] Discharge Disposition: Home Social History Tobacco Use [...] STORAGE ONLY CT ABDOMEN AND PELVIS Routine 08/16/2017 12:05 AM EST documented in this encounter Results * Film Library- Storage Only CT Abdomen & Pelvis (08/16/2017 12:05 AM EST) Narrative [facility] - 08/21/2017 4:56 PM EST This exam is for storage only and is auto-finalizing. Hai Gallegos MD [facility] FILM LIBRARY ORDERABLES [place], [place] documented in this encounter Visit Diagnoses Not on filedocumented in this encounter Care Teams Sponge Packer Relationship Specialty Start Date End Date Hai Gallegos MD [address] [place] [address] PCP - General 05/31/10 10/09/17 documented as of this encounter
--- OUTSIDE RECORDS SUMMARY | 2024-05-26 12:44 | XMS_ITS | Encounter Summary ---
Author Organization [facility] [place] [address] Care Team Providers Care Unarmed Security Guard Name Role Phone Hai Lopez Primary Care Provider [phone] Encounter Details Date Type Department Care Team (Late st Contact Info) Description 03/13/2018 External Results [place] [address] Yuliana Hernandez MD [facility] [place] [address] Social History Tobacco Use Types Packs/Day Years [...] Procedure Name Priority Date/Time Associated Diagnosis Comments EXTERNAL LAB CBC CMP THYROID RESULTS PANEL Routine 03/05/2018 documented in this encounter Results * CBC / CMP / Thyroid External Results (03/05/2018) White Blood Cell 7.45 Red Blood Cell 5.06 Hemoglobin 15.5 Hematocrit 45.6 Mean Cell Volume 90.1 Platelet 164 Sodium 140 Potassium 3.8 Chloride 105 Carbon Dioxide 26 Blood Urea Nitrogen 16 Creatinine 0.73 Est Glomerular Filtration Rate >60 Glucose 129 Calcium 9.1 Protein, Total 7.4 Albumin 4.2 Bilirubin, Total 0.4 Alkaline Phosphatase 115 Aspartate Aminotransferase 19 Alanine Aminotransferase 31 Prothrombin Time 9.4 International Normalization Ratio 1.0 Historical Provider MD EXTERNAL LAB RYAN CHO documented in this encounter Visit Diagnoses Not on filedocumented in this encounter Care Teams Unarmed Security Guard Relationship Specialty Start Date End Date Hai Lopez DO [address] [place] [address] PCP - General Family Medicine 10/10/17 documented as of this encounter
--- OUTSIDE RECORDS SUMMARY | 2024-05-26 12:44 | XMS_ITS | Encounter Summary ---
Author Organization [facility] Address [facility] [place] [address] Care Team Providers Care Mandarin Teacher Name Role Phone Hai Lopez Primary Care Provider [phone] Encounter Details Date Type Department Care Team (Late st Contact Info) Description 10/02/2018 1:00 PM EDT Office Visit Weight and Wellness at [facility] [address] [place] [address] Eleni Benoit Tara I, RD [facility] [place] [address] Class 1 obesity due to excess calories with serious comorbidity and body mass index (BMI) of 30.0 to 30.9 in adult Social History Tobacco Use [...] documented as of this encounter Patient Instructions * Patient Instructions* Miroslava Florentino I, PAWEL - 10/02/2018 1:00 PM EDT Nutrition Goals: For better blood glucose management, aim for ~20-25 grams of protein per meal and when choosing a snack, add some protein where possible. When you build your plate, check in with protein amount. Eating at regular times will be a big help as well. 1. Aim to eat ~300 calories at breakfast by 9 in the morning- consider occitan yogurt and 2 eggs (hard boiled or fried) 2. At lunch eat ~ 300-350 calories: try 1/2 chicken salad or tuna or low sodium deli meat and cucumbers and 1 small fruit or half banana OR 12 grapes - avoid chips 3. Eat ~ 400 calories at dinner with ~4 ounces of meat or 6 ounces of fish with 1 cup of non starchy veggies , and 1/2 cup of starchy foods [...] LD documented in this encounter Progress Notes * Yudi Costa N - 10/02/2018 1:00 PM EDT RESEARCH STUDY CONSENTING VISIT Visit Date: 10/02/18 PI/Designee: Dr. Arthur Cervantes/Clay Ayala [facility] [id number]: [facility] [employer] VELOS: [id number] Mary Beth Holman??consented to participate in the [...] a fully executed copy of the consent. 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) ; walking every day, food choices were no different; has had T2 for many years and knows what to eat and how much; says hasnoone to be accountability to anyone; has cirrhosis of liver, wants to lose weight because of T2/diabetes; has ordered a new fitness tracker; found success in past by walking more; pt lives in [facility] but works in [employer] on [...] health Barriers/Challenges: In a more sedentary job * Miroslava Florentino I, RD - 10/02/2018 1:00 PM EDT Nutrition Intervention for Weight Management Initial RD visit with YENIFER White 1960 Assessment/Nutrition Diagnosis: Pt at increased nutritional risk related to excessive calorie intake and sub optimal physical activity resulting in overweight/obesity as evidenced by BMI and diet recall Food Trackers: not today Activity:will walk the dogs in the summer time and use a Wii Fitt Weight Today: 202.2# Weight Loss History: Appetite/Hunger: Fasting B-300 mg/dL Typical Dietary Intake: B: banana this morning OR Arabic yogurt or banana - usually skips L: [...] adult documented in this encounter Care Teams Mandarin Teacher Relationship Specialty Start Date End Date Hai Lopez DO [address] [place] [address] PCP - General Family Medicine 10/10/17 documented as of this encounter
--- OUTSIDE RECORDS SUMMARY | 2024-05-26 12:44 | XMS_ITS | Encounter Summary ---
Author Organization [facility] Address [facility] [place] [address] Care Team Providers Care Cross Tie Turner Name Role Phone Hai Lopez Primary Care Provider [phone] Encounter Details Date Type Department Care Team (Late st Contact Info) Description 05/10/2018 9:30 AM EDT Office [place] [id number] Perla Hernandez MD [facility] [address] Hepatic cirrhosis, unspecified hepatic cirrhosis type, unspecified whether ascites present Social History Tobacco Use Types Packs/Day [...] kg (186 lb 4.8 oz) 05/10/2018 9:32 A M EDT Height 165.1 cm (5' 5) 05/10/2018 9:32 AM EDT Body Mass Index 31 05/10/2018 9:32 AM EDT documented in this encounter Progress Notes * Perla Hernandez MD - 05/10/2018 9:30 AM [...] a low fat and fiber diet. She is also having small meals throughout the day. Her [...] adding peppermint extract 5 drops in a beverage 3 times per day for symptom management. We discussed next steps will be based on the gastric emptying today. If gastroparesis is confirmed medical management may be considered. If she does not havegastroparesis further options for management of functional dyspepsia would include FDGard or FODMAP. Perla Hernandez MD Section of Gastroenterology & Hepatology [address] [place] [address] 25 minutes of this 26 minute visit was spent in discussion. Cc: Hai Lopez DO documented in this encounter Plan of Treatment Not on file documented as of this encounter Results * US Abdomen Complete [...] below. Electronically signed by: Jing Betancur MD, [facility] ([phone]), at 08/22/2018 10:44 AM ?Jing Betancur, Staff Physician Electronically Signed Final Report ?? 08/22/2018 01:03 pm Narrative 08/22/2018 1:04 PM EST Abdominal ?(Signed Final 08/22/2018 01:03 pm) PATIENT INFO: ID #: ? [id number] ?: ??[birth year] (57 yrs) Name: ? MARY BETH ANTUNEZ ?Visit Date: 08/22/2018 09:36 am PERFORMED BY: Performed By: ? More Mccullough RDMS Attending: ?Gypsy REBOLLAR, Jing Yan Resident: ? Kalen REBOLLAR, Max Valentino Referred By: ?PERLA HERNANDEZ Location: ? [place] SERVICE(S) PROVIDED: ??[facility] - Abdominal Complete Survey - [id number] INDICATIONS: ??cirrhosis, hx of Hep C, HCC [...] 08/22/2018 01:03 pm) PATIENT INFO: ID #: [id number] : 58 (57 yrs) Name: MARY BETH ANTUNEZ Visit Date: 08/22/2018 09:36 am PERFORMED BY: Performed By: More Mccullough RDMS Attending: Jing Betancur MD Resident: Max Higuera MD Referred By: PERLA HERNANDEZ Location: [place] SERVICE(S) PROVIDED: [facility] - Abdominal Complete Survey - [id number] INDICATIONS: cirrhosis, hx of Hep C, HCC [...] below. Electronically signed by: Jing Betancur MD, [facility] ([phone]), at 08/22/2018 10:44 AM Jing Betancur, Staff Physician Electronically Signed Final Report 08/22/2018 01:03 pm Perla Hernandez MD [facility] GEN ORDERABLE S * AFP tumor marker (08/22/2018 8:23 AM EST) Alpha Fetoprotein 2.4 <=8.3 ng/mL [facility] Blood specimen (specimen) 08/22/2018 8:23 AM EST 08/22/2018 8:29 AM EST Narrative Resulting Agency Comment Spec In Lab Perla Hernandez MD CHEMISTRY ORDERABLES [facility] [place] [address] * Prothrombin Time (08/22/2018 8:23 AM EST) Prothrombin Time 11.2 9.4 - 12.5 sec [facility] International Normalization Ratio 1.0 [facility] Comment: An INR <2.0 [...] depending on clinical circumstances. Blood specimen (specimen) 08/22/2018 8:23 AM EST 08/22/2018 8:29 AM EST Narrative Resulting Agency Comment Spec In Lab Perla Hernandez MD HEMATOLOGY ORDERABLE S Performing Organization Address City/State/[facility] Co de Phone Number [facility] [place] [address] * (ABNORMAL) Comprehensive metabolic panel (non-fasting) (08/22/2018 8:23 AM EST) Glucose 166 65 - 199 mg/dL [facility] Comment:Diabetes: >=200 mg/d L plus symptoms Blood Urea Nitrogen 19(H) 8 - 18 mg/dL [facility] Creatinine 0.74 0.70 - 1.20 mg/dL [facility] Sodium 140 135 - 145 mmol/L [facility] Potassium 4.8 3.5 - 5.0 mmol/L [facility] Comment: Please note: ??Patients with WBC >100,000 may have falsely elevated Potassium levels. ??For accurate Potassium quantification in these patients send serum separator tube (gold top) for subsequent determinations. ??Contact the Clinical Chemistry Laboratory if there are any questions. Chloride 100 98 - 107 mmol/L [facility] Carbon Dioxide 25 22 - 31 mmol/L [facility] Anion Gap 15 5 - 15 mmol/L [facility] Calcium 9.9 8.5 - 10.5 mg/dL [facility] Protein, Total 7.5 6.1 - 8.0 gm/dL [facility] Albumin 4.6 3.2 - 5.2 gm/dL [facility] Aspartate Aminotransferase 28 0 - 30 unit/L [facility] Alanine Aminotransferase 35(H) 0 - 30 unit/L [facility] Alkaline Phosphatase 91 40 - 104 unit/L [facility] Bilirubin, Total 0.4 0.2 - 1.3 mg/dL [facility] Est Glomerular Filtration Rate 89 >=60 mL/min/1. 73 m?? [facility] Comment: The eGFR was calculated using the CKD-EPI equation. As with all creatinine based estimates of kidney function, eGFR values calculated with the CKD-EPI equation are not accurate in patients with acute kidney failure, extremes of body mass or the acutely ill. [email or web address]/[facility] eGFR 104 >=60 mL/min/1. 73 m?? [facility] Comment: The eGFR was calculated using the CKD-EPI equation. As with all creatinine based estimates of kidney function, eGFR values calculated with the CKD-EPI equation are not accurate in patients with acute kidney failure, extremes of body mass or the acutely ill. [email or web address]/[facility] Blood specimen (specimen) 08/22/2018 8:23 AM EST 08/22/2018 8:29 AM EST Narrative Resulting Agency Comment Spec In Lab Perla Hernandez MD CHEMISTRY ORDERABLES [facility] [place] [address] documented in this encounter Visit Diagnoses Diagnosis Hepatic cirrhosis, unspecified hepatic cirrhosis type, unspecified whether ascites present Hepatic cirrhosis, unspecified hepatic cirrhosis type, unspecified whether ascites present documented in this encounter Care Teams Cross Tie Turner Relationship Specialty Start Date End Date Hai Lopez DO [address] [place] [address] PCP - General Family Medicine 10/10/17 documented as of this encounter
--- OUTSIDE RECORDS SUMMARY | 2024-05-26 12:44 | XMS_ITS | Encounter Summary ---
Author Organization [facility] Address [facility] [place] [address] Care Team Providers Care Physical Sciences Professor Name Role Phone Hai Gallegos MD Primary Care Provider [phone] Reason for Visit * Auth/Cert Specialty Diagnoses / Procedures Referred By Cristal munguia Referred To Contact Diagnoses Sialadenitis sialadenitis Procedures PRO EXCISION SUBMAXILLARY GLAND EXCISION SUBMANDIBULAR (SUBMAXILLARY) GLAND-GARY (WRVU 6.14) Referral ID Status Reason Start Date Expiration Date Visits Re quested Visits Authorized [id number] 1 1 Encounter Details Date Type Department Care Team (Late st Contact Info) Description 02/23/2017 8:37 AM EDT Anesthesia Event [place] [address] [place] [address] Anesthesia Record Procedure Summary Procedure Name Responsible Anesthesiologist Anesthesia Start Time Anesthesia Stop Time EXCISION SUBMANDIBULAR (SUBMAXILLARY) GLAND-GARY (WRVU 6.14) (Left: Face) Santos Manuel MD 02/23/17 0837 02/23/17 1039 Events Date Time Event Comment 02/23/2017 0837 AN Verify 0837 Start 0837 An Start Data 0843 An Induction 0848 An Intubation 0852 Anesthesia Ready 0919 Procedure Start 0928 Break/Relief In Laurence A Le wis, PRESS SETUP OPERATOR 0946 Break/Relief Out 1026 Procedure Stop 1029 Extubation/LMA Out Pt met ex tubation criteria TV 600 to 800 ml , able to follow command OP suctiooned ETT D/C FM ay 10L applied 1031 an stop data 1039 Recovery or ICU Handoff Senia ent care was transferred to the destination unit staff after review of the patient's medical history, current anesthetic/surgical status and plan, according to the Provider Handoff Checklist. Leighann LEDEZMA Rn given report, pt with an active cough and natural airway with FM art 10l 1039 Stop 1045 Meds Name Total Midazolam 2 mg fentaNYL 100 mcg Propofol 190 mg PHENYLephrine 400 mcg ePHEDrine 50 mg Ondansetron 4 mg Albuterol Inhaler 2 puff PHENYLephrine INF 2,600 mcg Succinylcholine 140 mg ampicillin-sulbactam (UNASYN ) 3 g vial attach to sodium chloride 0.9% 100 mL Mini-Bag Plus 3 g Dexmedetomidine 20 mcg Lidocaine 4% LTA 4 mL Propofol INF 177.46 mg lactated Ringers infusion 1,000 mL 800 m L * Agents Name O2 Air N2O Sevoflurane (et) * Blood No blood administrations on file. Lines, Drains, and Airways Type Details Placement Removal Incision 02/23/17; other (see comments) (Submaxillary); 03/06/22 (LDA cleanup utility RA#[id number]); 1715 (LDA cleanup utility RA#[id number]) 02/23/17 0000 by Halie Heaton RN 03/06/22 1715 by Raven Banerjee (RETIRED) Peripheral IV Line - Single Lumen 02/23/17; 0728; metacarpal vein (top of hand), left; [id number]-wfv-juwrte catheter system; 20 gauge; distraction, intradermal injection, tolerated well; 0; 02/23/17; 1145 02/23/17 0728 by Carmen Basurto RN 02/23/17 1145 by Leighann Barclay, RN ETT Mask Ventilation: Difficult (3); ETT Type: Cuffed; ETT Size: 7 mm; Mac Blade: 3; Exchange: Bougie; Notes: Asleep, Pre-O2, Stylette, Troop Elev.; Attempts: 1; Laryngoscopy Grade: 3; ETT Placement Verified By: Auscultation, Capnometry; Secured at Teeth: 22 cm; Inserted by: franklin moon crna; Removal Date: 02/23/17; Removal Time: 1029 02/23/17 0848 by Niurka Moon CRNA 02/23/17 1029 by Niurka Moon CRNA documented in this encounter Social History Tobacco [...] documented as of this encounter OR Notes * Anesthesia Postprocedure Evaluation - Santos Manuel MD - 02/23/2017 10:45 AM EDT [facility] [place] Department of Anesthesiology Post-procedure Note Patient: Mary Beth Holman Procedure Summary Date Anesthesia Start Anesthesia Stop Room / Location 02/23/17 0837 1039 [facility] MAIN OR Procedure Diagnosis Surgeon Responsible Provider EXCISION SUBMANDIBULAR (SUBMAXILLARY) GLAND-GARY (WRVU 6.14) (Left Face) Sialadenitis (sialadenitis) Salty Butler MD Toth, Adam R, MD All Anesthesia Providers: Anesthesiologist: Santos Manuel MD PRESS SETUP OPERATOR: Niurka Moon CRNA Last (1hr) Vitals: BP 120/65 (02/23/17 1039) Temp Pulse Resp SpO2 97 % (02/23/17 1039) Patient Location: PACU/[facility] Level of Consciousness: Awake and Alert Pain Management: Satisfactory Analgesia PONV: None Cardiovascular Status: At Baseline and Hemodynamically Stable Respiratory Status: At Baseline and Room Air Postoperative Fluid Status: Intravascular EUvolemia Possible Anesthetic Complications: NONE apparent at time of evaluation Final Primary Anesthesia Type: General (The anesthetic type performed was the same as planned.) Comments: Santos Manuel MD * Anesthesia Preprocedure Evaluation - Santos Manuel MD - 02/22/2017 9:34 PM EDT Images from the original note were not included. Pre-Anesthesia Evaluation for: Mary Beth Holman a 56 y.o. female. Procedure(s): EXCISION SUBMANDIBULAR (SUBMAXILLARY) [...] this morning. Took full dose (50u) lantus last night -COPD and current tobacco abuse - 75pk yr smoking hx, 1ppd -GERD controlled on PPI -HTN (lisinopril) -ex-EtOH abuse - none in several years NPO appropriate Plan: KARLO SANCHEZ reviewed and signed Region - Other Informed Consent: Anesthetic plan and risks discussed with patient. Plan discussed with PRESS SETUP OPERATOR. [facility] Staff Note documented in this encounter Plan of Treatment Not on file documented as of this encounter Visit Diagnoses Not on filedocumented in this encounter Administered Medications Inactive Administered Medications - up to 3 most recent administrations Medication Order MAR Action Action Date Dose Rate Site albuterol 90 mcg/actuation inhaler PRN, Starting on Sun02/23/17 at 0839, Until Sun02/23/17 at 1042, Wheezing, Anesthesia Intra-op, Routine Given 02/23/2017 8:39 AM EDT 2 puffs ampicillin-sulbactam (UNASYN) 3 g vial attach to sodium chloride 0.9% 100 mL Mini-Bag Plus 3 g, Intravenous, EVERY 6 HOURS SCHEDULED, First dose on Sun02/23/17 at 1200, Until Discontinued, Administer over 30 Minutes, Warning Vesicant/Irritant Medication , Indication for (Active or Suspected): Prophylaxis New Bag 02/23/2017 9:02 AM EDT 3 g dexmedetomidine (PRECEDEX) injection PRN, Starting on Sun02/23/17 at 0952, Until Sun02/23/17 at 1042, Anesthesia Intra-op, Routine Given 02/23/2017 9:55 AM EDT 8 mcg Given 02/23/2017 9:52 AM EDT 12 mcg ePHEDrine 5 mg/mL multi-dose injection PRN, Starting on Sun02/23/17 at 0906, Until Sun02/23/17 at 1042, Anesthesia Intra-op, Routine Given 02/23/2017 9:26 AM EDT 10 mg Given 02/23/2017 9:17 AM EDT 10 mg Given 02/23/2017 9:06 AM EDT 20 mg fentaNYL 50 mcg/mL multi-dose injection PRN, Starting on Sun02/23/17 at 0840, Until Sun02/23/17 at 1042, Pain, Anesthesia Intra-op, Routine Given 02/23/2017 8:40 AM EDT 100 mcg lactated Ringers infusion 1,000 mL 1,000 mL, at 100 mL/hr, Intravenous, CONTINUOUS, Starting on Sun02/23/17 at 0730, Until Sun02/23/17 at 1145, Day of Surgery (Day of Procedure) New Bag 02/23/2017 8:37 AM EDT New Bag 02/23/2017 7:29 AM EDT 1,000 mLs 100 mL/hr lidocaine (XYLOCAINE) 4 % external solution PRN, Starting on Sun02/23/17 at 0848, Until Sun02/23/17 at 1042, Anesthesia Intra-op Given 02/23/2017 8:48 AM EDT 4 mLs midazolam (PF) (VERSED) 1 mg/mL multi-dose injection PRN, Starting on Sun02/23/17 at 0837, Until Sun02/23/17 at 1042, Sleep, Anesthesia Intra-op, Routine Given 02/23/2017 8:37 AM EDT 2 mg ondansetron (ZOFRAN) injection PRN, Starting on Sun02/23/17 at 0837, Until Sun02/23/17 at 1042, Nausea, Anesthesia Intra-op, Routine Given 02/23/2017 8:37 AM EDT 4 mg PHENYLephrine (SARINA-SYNEPHRINE) 20 mg in sodium chloride 250 mL (standard ADULT & Martell greater than 20kg) infusion CONTINUOUS PRN, Starting on Sun02/23/17 at 0853, Until Sun02/23/17 at 1042, Anesthesia Intra-op, Routine Rate/Dose Change 02/23/2017 10:18 AM EDT 30 mcg/min 22.5 mL/hr Restarted 02/23/2017 10:06 AM EDT 20 mcg/min 15 mL/hr Rate/Dose Change 02/23/2017 9:48 AM EDT 15 mcg/min 11.3 mL /hr PHENYLephrine HCl in NS (PF) (SARINA-SYNEPHRINE) 0.8 mg/10 mL (80 mcg/mL) multi-dose injection Syrg PRN, Starting on Sun02/23/17 at 0843, Until Sun02/23/17 at 1042, Anesthesia Intra-op, Routine Given 02/23/2017 9:23 AM EDT 160 mcg Given 02/23/2017 8:53 AM EDT 160 mcg Given 02/23/2017 8:43 AM EDT 80 mcg propofol (DIPRIVAN) 10 mg/mL bolus injection (Anesthesia) PRN, Starting on Sun02/23/17 at 0843, Until Sun02/23/17 at 1042, Anesthesia Intra-op Given 02/23/2017 8:48 AM EDT 30 mg Given 02/23/2017 8:46 AM EDT 30 mg Given 02/23/2017 8:43 AM EDT 130 mg propofol (DIPRIVAN) infusion CONTINUOUS PRN, Starting on Sun02/23/17 at 1004, Until Sun02/23/17 at 1042, Anesthesia Intra-op, Routine Rate/Dose Change 02/23/2017 10:22 AM EDT 50 mcg/kg/min 28 mL/hr Rate/Dose Change 02/23/2017 10:12 AM EDT 75 mcg/kg/min 42 mL/hr Rate/Dose Change 02/23/2017 10:05 AM EDT 125 mcg/kg/min 70 .1 mL/hr succinylcholine (ANECTINE) injection PRN, Starting on Sun02/23/17 at 0844, Until Sun02/23/17 at 1042, Anesthesia Intra-op, Routine Given 02/23/2017 8:44 AM EDT 140 mg documented in this encounter Care Teams Physical Sciences Professor Relationship Specialty Start Date End Date Hai Gallegos MD [address] [facility] [place] [address] PCP - General 05/31/10 10/09/17 documented as of this encounter
--- OUTSIDE RECORDS SUMMARY | 2024-05-26 12:44 | XMS_ITS | Encounter Summary ---
Author Organization [facility] [place] [address] Care Team Providers Care Engraver Letter Name Role Phone Hai Lopez DO Primary Care Provider [phone] Encounter Details Date Type Department Care Team (Late st Contact Info) Description 10/02/2018 Orders Only Weight and Wellness at [facility] [address] [place] [address] Laurel Montez APRN [facility] [address] Class 1 obesity with body mass index (BMI) of 33.0 to 33.9 in adult, unspecified obesity type, unspecified whether serious comorbidity present Social History Tobacco Use [...] Class 1 obesity with body mass index (BMI) of 33.0 to 33.9 in adult, unspecified obesity type, unspecified whether serious comorbidity present documented in this encounter Care Teams Engraver Letter Relationship Specialty Start Date End Date Hai Lopez DO [address] [place] [id number] PCP - General Family Medicine 10/10/17 documented as of this encounter
--- OUTSIDE RECORDS SUMMARY | 2024-05-26 12:44 | XMS_ITS | Encounter Summary ---
[place] [address] Care Team Providers Care Clinical Trainer Name Role Phone Hai Lopez DO Primary Care Provider [phone] Reason for Referral * Diagnostic Test (Routine) - Closed Specialty Diagnoses / Procedures Referred By Contac t Referred To Contact Radiology Diagnoses Epigastric abdominal pain Procedures NM Gastric Emptying Scan Yuliana Hernandez MD [facility] [place] [address] [place] [address] Referral ID Status Reason Start Date Expiration Date V isits Requested Visits Authorized [id number] Closed Specialty Service Requested 04/01/2018 04/01/2019 5 5 Reason for Visit * Diagnostic Test (Routine) - Closed Specialty Diagnoses / Procedures Referred By Contac t Referred To Contact Radiology Diagnoses Epigastric abdominal pain Procedures NM Gastric Emptying Scan Yuliana Hernandez MD [facility] [place] [address] [place] [address] Referral ID Status Reason Start Date Expiration Date V isits Requested Visits Authorized [id number] Closed Specialty Service Requested 04/01/2018 04/01/2019 5 5 Encounter Details Date Type Department Care Team (Latest Contact Info) Description 05/15/2018 9:24 AM EST Hospital Encounter [place] [id number] Yuliana Hernandez MD [facility] [place] [address] Epigastric abdominal pain Discharge Disposition: Home Social History Tobacco Use [...] Procedure Name Priority Date/Time Associated Diagnosis Comments SD GASTRIC EMPTYING SCAN Routine 05/15/2018 12:46 PM EST Epigastric abdominal pain documented in this encounter Results * NM Gastric Emptying Scan (05/15/2018 12:46 PM EST) Anatomical Region Laterality Modality Nuclear Medicine Impressions 05/15/2018 1:52 PM EST Normal gastric emptying Narrative 05/15/2018 1:52 PM EST EXAMINATION: SD GASTRIC EMPTYING SCAN CLINICAL HISTORY: epigastric pain [...] Note Terry Whitman MD - 05/15/2018 EXAMINATION: SD GASTRIC EMPTYING SCAN CLINICAL HISTORY: epigastric pain [...] Date Dose Rate Site technetium (Tc-99m) sulfur colloid injection 0.6 mCi 0.6 mCi, Oral, ONCE PRN, 1 dose, Starting on Sun05/15/18 at 0945, Until Sun05/15/18 at 0945, Per Protocol, Routine Given 05/15/2018 9:45 AM EST 0.6 mCi documented in this encounter Care Teams Clinical Trainer Relationship Specialty Start Date End Date Hai Lopez DO [address] [place] [address] PCP - General Family Medicine 10/10/17 documented as of this encounter
--- OUTSIDE RECORDS SUMMARY | 2024-05-26 12:44 | XMS_ITS | Encounter Summary ---
Author Organization [facility] Address [facility] [place] [address] Care Team Providers Care Eye Glass Frame Polisher Name Role Phone Hai Lopez Primary Care Provider [phone] Encounter Details Date Type Department Care Team (Latest Contact Info) Description 03/12/2018 - 03/12/2018 11:59 PM EDT Hospital Encounter Radiology Library at [facility] [place] [id number] Yuliana Hernandez MD [facility] [address] Discharge Disposition: Home Social History Tobacco Use [...] Associated Diagnosis Comments FILM LIBRARY STORAGE ONLY ULTRASOUND STUDY Routine 03/12/2018 12:00 AM EDT documented in this encounter Results * Film Library- Storage Only Ultrasound Study (03/12/2018 12:00 AM EDT) Narrative DELMY - 03/13/2018 8:53 PM EDT This exam is for storage only and is auto-finalizing. Yuliana Hernandez MD G FILM LIBRARY ORD ERABLES Performing Organization Address City/State/[facility] Co de Phone Number [place], [place] documented in this encounter Visit Diagnoses Not on filedocumented in this encounter Care Teams Eye Glass Frame Polisher Relationship Specialty Start Date End Date Hai Lopez DO [address] [facility] [place] [address] PCP - General Family Medicine 10/10/17 documented as of this encounter
--- OUTSIDE RECORDS SUMMARY | 2024-05-26 12:44 | XMS_ITS | Encounter Summary ---
Author Organization [facility] [place] [place] [address] Care Team Providers Care Gang Plank Workman Name Role Phone Hai Lopez Corey MOORE Primary Care Provider [phone] Encounter Details Date Type Department Care Team (Latest Contact Info) Description 08/22/2018 8:30 AM EST Laboratory Appointment Lab [address] [place] [id number] Hepatic cirrhosis, unspecified hepatic cirrhosis type, unspecified whether ascites present; BUI (nonalcoholic steatohepatitis) Social History Tobacco Use [...] Priority Date/Time Associated Diagnosis Comments HEMOGRAM Routine 08/22/2018 8:23 AM EST Hepatic cirrhosis, unspecified hepatic cirrhosis type, unspecified whether ascites present DIFFERENTIAL, AUTOMATED Routine 08/22/2018 8:23 AM EST Hepatic cirrhosis, unspecified hepatic cirrhosis type, unspecified whether ascites present AFP TUMOR MARKER Routine 08/22/2018 8:23 AM EST Hepatic cirrhosis, unspecified hepatic cirrhosis type, unspecified whether ascites present PROTHROMBIN TIME Routine 08/22/2018 8:23 AM EST Hepatic cirrhosis, unspecified hepatic cirrhosis type, unspecified whether ascites present CBC (WITH DIFF) Routine 08/22/2018 8:23 AM EST Hepatic cirrhosis, unspecified hepatic cirrhosis type, unspecified whether ascites present COMPREHENSIVE METABOLIC PANEL Routine 08/22/2018 8:23 AM EST Hepatic cirrhosis, unspecified hepatic cirrhosis type, unspecified whether ascites present documented in this encounter Results * Differential, Automated (08/22/2018 8:23 AM EST) Neutrophil % 54.2 % [facility] Neutrophil Absolute 4.85 1.70 - 6.10 x10(3)/[facility] Lymph % 34.1 % [facility] Lymphocytes Abs 3.0 0.9 - 3.2 x10(3)/[facility] Monocyte % 6.4 % [facility] Monocyte Abs 0.6 0.3 - 0.9 x10(3)/[facility] Eos % 4.0 % [facility] Eosinophils Abs 0.4 0.0 - 0.4 x10(3)/[facility] Basophil % 0.9 % [facility] Baso Absolute 0.1 0.0 - 0.1 x10(3)/[facility] Immature Gran % 0.40 % [facility] Comment: Immature granulocytes(IG's)percentage and absolute count will include metamyelocytes, myelocytes, and promyelocytes. Blood smears from CBCs yielding IG's will be scanned manually for concordance. If this scan disagrees with the automated IG or if promyelocytes are noted, a manual differential will be performed. Immature Gran Absolute 0.04 0.00 - 0.04 x10(3)/[facility] Blood specimen (specimen) 08/22/2018 8:23 AM EST 08/22/2018 8:29 AM EST Narrative Resulting Agency Comment Spec In Lab Yuliana eHrnandez MD HEMATOLOGY ORDERABLE S Performing Organization Address City/[facility]/ZIP Co de Phone Number [facility] [place] [address] * (ABNORMAL) Hemogram (08/22/2018 8:23 AM EST) White Blood Cell 9.0 4.0 - 9.5 x10(3)/mc L [facility] Red Blood Cell 5.24(H) 4.00 - 5.21 x10(6)/mc L [facility] Hemoglobin 15.6(H) 11.7 - 15.5 gm/dL [facility] Hematocrit 47.8(H) 35.7 - 45.8 % [facility] Mean Cell Volume 91.2 82.6 - 94.4 fL [facility] Mean Cell Hemoglobin 29.8 27.1 - 32.0 pg [facility] Mean Cell Hemoglobin Concentration 32.6 31.7 - 35.0 gm/dL [facility] Platelet 167 145 - 357 x10(3)/mc L [facility] RDW Standard Deviation 45.7 37.0 - 46.0 fL [facility] RDW coefficient of variation 13.5 11.5 - 14.1 % [facility] Mean Platelet Volume 10.5 7.6 - 12.9 fL [facility] NRBC% auto 0.0 % [facility] NRBC Absolute 0.000 0.000 - 0.000 x10(3)/mc L [facility] Blood specimen (specimen) 08/22/2018 8:23 AM EST 08/22/2018 8:29 AM EST Narrative Resulting Agency Comment Spec In Lab Yuliana Hernandez MD HEMATOLOGY ORDERABLE S [facility] [place] [address] * (ABNORMAL) Comprehensive metabolic panel (non-fasting) (08/22/2018 8:23 AM EST) Glucose 166 65 - 199 mg/dL [facility] Comment:Diabetes: >=200 mg/d L plus symptoms Blood Urea Nitrogen 19(H) 8 - 18 mg/dL [facility] Creatinine 0.74 0.70 - 1.20 mg/dL [facility] Sodium 140 135 - 145 mmol/L [facility] Potassium 4.8 3.5 - 5.0 mmol/L [facility] Comment: Please note: ??Patients with WBC >100,000 may have falsely elevated Potassium levels. ??For accurate Potassium quantification in these patients send serum separator tube (gold top) for subsequent determinations. ??Contact the Clinical Chemistry Laboratory if there are any questions. Chloride 100 98 - 107 mmol/L [facility] Carbon Dioxide 25 22 - 31 mmol/L [facility] Anion Gap 15 5 - 15 mmol/L [facility] Calcium 9.9 8.5 - 10.5 mg/dL [facility] Protein, Total 7.5 6.1 - 8.0 gm/dL [facility] Albumin 4.6 3.2 - 5.2 gm/dL [facility] Aspartate Aminotransferase 28 0 - 30 unit/L [facility] Alanine Aminotransferase 35(H) 0 - 30 unit/L [facility] Alkaline Phosphatase 91 40 - 104 unit/L [facility] Bilirubin, Total 0.4 0.2 - 1.3 mg/dL [facility] Est Glomerular Filtration Rate 89 >=60 mL/min/1. 73 m?? [facility] Comment: The eGFR was calculated using the CKD-EPI equation. As with all creatinine based estimates of kidney function, eGFR values calculated with the CKD-EPI equation are not accurate in patients with acute kidney failure, extremes of body mass or the acutely ill. http://gBox/DHMCnkf eGFR 104 >=60 mL/min/1. 73 m?? [facility] Comment: The eGFR was calculated using the CKD-EPI equation. As with all creatinine based estimates of kidney function, eGFR values calculated with the CKD-EPI equation are not accurate in patients with acute kidney failure, extremes of body mass or the acutely ill. http://iSOCO.Symplified/DHMCnkf Blood specimen (specimen) 08/22/2018 8:23 AM EST 08/22/2018 8:29 AM EST Narrative Resulting Agency Comment Spec In Lab Yuliana Hernandez MD CHEMISTRY ORDERABLES Performing Organization Address [facility] de Phone Number [facility] [place] [address] * Prothrombin Time (08/22/2018 8:23 AM EST) Prothrombin Time 11.2 9.4 - 12.5 sec [facility] International Normalization Ratio 1.0 [facility] Comment: An INR <2.0 [...] MD HEMATOLOGY ORDERABLE S Performing Organization Address [facility] de Phone Number [facility] [place] [address] * AFP tumor marker (08/22/2018 8:23 AM EST) Alpha Fetoprotein 2.4 <=8.3 ng/mL [facility] Blood specimen (specimen) 08/22/2018 8:23 AM EST 08/22/2018 8:29 AM EST Narrative Resulting Agency Comment Spec In Lab Yuliana Hernandez MD CHEMISTRY ORDERABLES [facility] [place] [address] documented in this encounter Visit Diagnoses Diagnosis Hepatic cirrhosis, unspecified hepatic cirrhosis type, unspecified whether ascites present BUI (nonalcoholic steatohepatitis) Other chronic nonalcoholic liver disease documented in this encounter Care Teams Gang Plank Workman Relationship Specialty Start Date End Date Hai Lopez DO [address] [place] [address] PCP - General Family Medicine 10/10/17 documented as of this encounter
--- OUTSIDE RECORDS SUMMARY | 2024-05-26 12:44 | XMS_ITS | Encounter Summary ---
Author Organization [facility] [place] [address] Care Team Providers Care Manager Night Name Role Phone ChengrosemaryHai DO Primary Care Provider [phone] Reason for Visit * Diagnostic Test (Routine) - Closed Specialty Diagnoses / Procedures Referred By Contac t Referred To Contact Radiology Diagnoses Epigastric abdominal pain Procedures NM Gastric Emptying Scan Yuliana Hernandez MD [facility] [place] [address] [facility] [place] [address] Referral ID Status Reason Start Date Expiration Date V isits Requested Visits Authorized [id number] Closed Specialty Service Requested 04/01/2018 04/01/2019 5 5 Encounter Details Date Type Department Care Team (Latest Contact Info) Description 05/15/2018 9:25 AM EST - 05/15/2018 11:59 PM [facility] Hospital En[place] [address] Yuliana Hernandez MD [facility] [place] [address] Discharge Disposition: Home Social History [...] IMPRESSION Normal gastric emptying Yuliana Hernandez MD [facility] [place] ORDERABLES documented in this encounter Visit Diagnoses Not on filedocumented in this encounter Care Teams Manager Night Relationship Specialty Start Date End Date Hai Lopez DO [address] [place] [address] PCP - General Family Medicine 10/10/17 documented as of this encounter
--- OUTSIDE RECORDS SUMMARY | 2024-05-26 12:44 | XMS_ITS | Encounter Summary ---
Author Organization [facility] [place] [address] Care Team Providers Care Advisory Software Engineer Name Role Phone Hai Gallegos MD Primary Care Provider [phone] Reason for Visit * Reason Comments GI Problem * Consultation (Routine) - Closed Specialty Diagnoses / Procedures Referred By Cristal munguia Referred To Contact Gastroenterology Diagnoses portal hypertension Hai Lopez, DO [address] [place] [address] [facility] [place] [address] [place] [address] Referral ID Status Reason Start Date Expiration Date V isits Requested Visits Authorized [id number] Closed Consult, [facility] 08/23/2017 08/23/2018 1 1 Encounter Details Date Type Department Care Team (Late st Contact Info) Description 09/28/2017 9:00 AM EDT Office [place] [address] Yuliana Hernandez MD [facility] [place] [address] Diarrhea, unspecified type Social History Tobacco Use Types Packs/Day Years [...] kg (186 lb 6.4 oz) 09/28/2017 8:45 A M EDT Height 165.1 cm (5' 5) 09/28/2017 8:45 AM EDT Body Mass Index 31.02 09/28/2017 8:45 AM EDT documented in this encounter Progress Notes * Yuliana Hernandez MD - 09/28/2017 9:00 AM EDT Images from the original note were not included. HEPATOLOGY CONSULTATION Mary Beth Holman 1960 [employer]: Yuliana Hernandez MD ([id number]) PCP: Hai Gallegos MD (Inactive) Requesting Provider: REASON FOR CONSULTATION Splenomegaly HISTORY OF PRESENT ILLNESS Mary Beth Holman is a 57 y.o. year old who has a history of hepatitis C, treated with interferon in the , who had imaging for abdominal pain in 08/16/2017 which showed mild splenomegaly. This painstarted with sharp pain with nausea, vomiting, and diarrhea with the pain. She thought it was a stomach bug. She presented to her PCP the first day (08/16/2017) as she works in a [employer]. Investigations were done that day which included [...] episodes. She has never had a colonoscopy. Shehas a family history of colon cancer in [...] for the 09/28/17 encounter (Office Visit) with Yuliana Hernandez MD Medication Sig Dispense Refill ??? [...] fibrosis. With her history of hepatitis C despiteachieving SVR she will require screening for HCC by ultrasound every [address] and ultrasound from August 2017 were negative. Repeat imaging required February 2018. This can be done through her primary care provider recommend annual AFP. She would have been at risk for portal hypertension previously due to her alcohol intake and hepatitis C [...] infectious but repeat imaging would be indicated. Yuliana Hernandez MD Hepatology and Gastroenterology [facility] ELYSIA Childs V: [phone] Copy: Hai Gallegos MD (Inactive) [address] [facility] [id number] documented in this encounter Procedure Notes * Yuliana Hernandez MD - 09/28/2017 9:00 AM EDTAssociated Order(s): FIBROSCAN Procedure(s): FIBROSCAN Pre-Procedure Diagnose(s): Diarrhea, unspecified type [facility] Liver Fibrosis Assessment Report Indication: Elevated liver enzymes Performed by: Yuliana Hernandez MD Procedure: Vibration Controlled Transient Elastography (VCTE) or Fibroscan [place] Protocol: Patient's identity, procedure and site were verified, confirmatory pause performed. Discussed procedure including risks and potential complications. Questions answered. Patient verbalizes understanding and wishes to proceed with Fibroscan assessment. Patient was placed in the supine position with right arm in maximum abduction to allow optimal exposure of right lateral abdomen. Patient was briefly assessed. Testing was performed in the mid-axillary location. 50Hz Shear Wave pulses were applied and the resulting Shear Wave and Propagation Speed was detected with a 3.5MHz ultrasonic signal, using the Fibroscan probe. Skin to liver capsule distance and liver parenchyma were accessed during the entire examination with the Fibroscan probe. Patient was instructed to breathe normally and abstain from sudden movements during the procedure. At least ten Sheer Waves were produced; individual measurements of each [...] Procedure Name Priority Date/Time Associated Diagnosis Comments [id number] Routine 09/28/2017 12:13 PM EDT Diarrhea, unspecified type documented in this encounter Results * Calprotectin, Stool (10/09/2017 12:00 PM EDT) Calprotectin 44.3 <=50.0 (Normal) [facility] Comment: Test Performed by: [facility] - [address] [address] Stool specimen (specimen) 10/09/2017 12:00 PM EDT 10/11/2017 8:57 AM EDT Narrative Resulting Agency Comment Spec In Lab Yuliana Hernandez MD BODY FLUIDS AND STOO LS ORDERABLES [facility] [place] [address] * C. Difficile Screen (10/09/2017 12:00 PM EDT) C Diff Interp Negative Negative [facility] Comment: C. diff ??Negative Clostridium difficile is not present in the specimen. If patient is having diarrhea suspected to be from an infectious cause, then Contact Precautions are still required. Stool specimen (specimen) 10/09/2017 12:00 PM EDT 10/10/2017 6:16 PM EDT Narrative Resulting Agency Comment Spec In Lab Yuliana Hernandez MD MICROBIOLOGY - GENER AL ORDERABLES [facility] [place] [address] * [id number] (09/28/2017 12:13 PM EDT) Narrative Yuliana Hernandez MD - 09/28/2017 12:13 PM EDT Yuliana Hernandez MD ? 09/28/2017 12:13 PM [facility] Liver Fibrosis Assessment Report Indication: ?? Elevated liver enzymes Performed by: ??Yuliana Hernandez MD Procedure: Vibration Controlled Transient Elastography (VCTE) or Fibroscan [place] Protocol: Patient's identity, procedure and site were verified, confirmatory pause performed. Discussed procedure including risks and potential complications. Questions answered. Patient verbalizes understanding and wishes to proceed with Fibroscan assessment. Patient was placed in the supine position with right arm in maximum abduction to allow optimal exposure of right lateral abdomen. Patient was briefly assessed. Testing was performed in the mid-axillary location. 50Hz Shear Wave pulses were applied and the resulting Shear Wave and Propagation Speed was detected with a 3.5MHz ultrasonic signal, using the Fibroscan probe. Skin to liver capsule distance and liver parenchyma were accessed during the entire examination with the Fibroscan probe. Patient was instructed to breathe normally and abstain from sudden movements during the procedure. 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 Yuliana Hernandez MD PROCEDURE/MINOR SURG ICAL ORDERABLES documented in this encounter Visit Diagnoses Diagnosis Diarrhea, unspecified type documented in this encounter Care Teams Advisory Software Engineer Relationship Specialty Start Date End Date Hai Gallegos MD [address] [place] [address] PCP - General 05/31/10 10/09/17 documented as of this encounter
--- OUTSIDE RECORDS SUMMARY | 2024-05-26 12:44 | XMS_ITS | Encounter Summary ---
[place] [address] Care Team Providers Care Financial Accountant Name Role Phone Hai Gallegos MD Primary Care Provider [phone] Reason for Visit * Auth/Cert Specialty Diagnoses / Procedures Referred By Cristal t Referred To Contact Diagnoses Sialadenitis sialadenitis Procedures PRO EXCISION SUBMAXILLARY GLAND EXCISION SUBMANDIBULAR (SUBMAXILLARY) GLAND-GARY (WRVU 6.14) Referral ID Status Reason Start Date Expiration Date Visits Re quested Visits Authorized [id number] 1 1 Encounter Details Date Type Department Care Team (Latest Contact Info) Description 02/23/2017 6:51 AM EDT - 02/23/2017 11:50 AM EDT Hospital En[place] [address] Salty Nice MD [facility] [place] [address] Discharge Disposition: Home Social History Tobacco Use [...] discussed. Should you have questions, please call [phone] during business hours. After hours, call [phone] and ask to speak with the ENT resident patient account liaison. documented in this encounter Medications at Time [...] Nice MD - 02/23/2017 10:05 AM EDT [facility] [place] Note Patient Name: Mary Beth Holman : [id number] MR#: [id number] Case Date: 02/23/2017 Surgeon: Surgeon(s) and Role: * Salty Nice MD - Primary * Berry Montez PA Preoperative diagnosis: sialadenitis Postoperative diagnosis: sialadenitis Procedure(s) (LRB): EXCISION SUBMANDIBULAR (SUBMAXILLARY) GLAND-GARY (WRVU 6.14) (Left) : GOMEZ/BARBI pharmacy assistant surgeon (no qualified resident available) Anesthesia: [...] was marked and injected with 1% xylocaine [id number] epinephrine. Incision made through skin, fat and [...] Glucose, POC 154 65 - 199 mg/dL [facility] Comment: Supplemental ranges: <140 mg/dL before meals <180 mg/dL all other times of the day Blood specimen (specimen) 02/23/2017 10:41 AM EDT 02/23/2017 10:41 AM EDT Salty Nice MD POINT OF CARE TEST ORDERABLES [facility] [place] [address] * Surgical Pathology Report (02/23/2017 10:01 AM EDT) Final Diagnosis [id number] ? Location: [facility]; [facility]; A The signing pathologist has (i) [...] sectioned. (R4) ??leo 02/27/2017 9:16 AM EDT [facility] Salivary Gland 02/23/2017 10 :01 AM EDT 02/23/2017 10:01 AM EDT Salty Nice MD PATHOLOGY/CYTOLOGY ORDERABLES [facility] [place] [address] * Specimen to Pathology (surgical or derm) (02/23/2017 10:01 AM EDT) AP Specimen 02/23/2017 10:0 1 AM EDT 02/23/2017 10:01 AM EDT Narrative [facility] - 02/23/2017 10:01 AM EDT Specimen requisition ordered. ??Separate Pathology report to follow Salty Nice MD PATHOLOGY/CYTOLOGY ORDERABLES [facility] [place] [address] * POCT Glucose (02/23/2017 7:24 AM EDT) Glucose, POC 147 65 - 199 mg/dL [facility] Comment: Supplemental ranges: <140 mg/dL before meals <180 mg/dL all other times of the day Blood specimen (specimen) 02/23/2017 7:24 AM EDT 02/23/2017 7:24 AM EDT Salty Nice MD POINT OF CARE TEST ORDERABLES Performing Organization Address [facility] Co de Phone Number [facility] [place] [address] documented in this encounter Visit Diagnoses Not [...] Given 02/23/2017 7:30 AM EDT 600 mg lactated Ringers infusion 1,000 mL 1,000 mL, [...] Given 02/23/2017 7:29 AM EDT 3 mg oxyCODONE (ROXICODONE) immediate release tablet 5 mg 5 mg, Oral, ONCE, 1 dose, On Sun02/23/17 at 1130, Routine Given 02/23/2017 11:30 AM EDT 2.5 mg documented in this encounter Active and [...] Routine documented in this encounter Care Teams Financial Accountant Relationship Specialty Start Date End Date Hai Gallegos [place] [place] [address] PCP - General 05/31/10 10/09/17 documented as of this encounter
--- OUTSIDE RECORDS SUMMARY | 2024-05-26 12:44 | XMS_ITS | Encounter Summary ---
Author Organization [facility] Address [facility] [place] [address] Care Team Providers Care Test Fixture Designer Name Role Phone Hai Lopez DO Primary Care Provider [phone] Encounter Details Date Type Department Care Team (Late st Contact Info) Description 09/27/2018 Orders Only Weight and Wellness at [facility] [address] [place] [address] Sri Briseno MD [facility] [place] [address] Social History Tobacco Use Types Packs/Day Years [...] on filedocumented in this encounter Care Teams Test Fixture Designer Relationship Specialty Start Date End Date Hai Lopez DO [address] [place] [address] PCP - General Family Medicine 10/10/17 documented as of this encounter
--- OUTSIDE RECORDS SUMMARY | 2024-05-26 12:44 | XMS_ITS | Encounter Summary ---
Author Organization [facility] [place] [address] Care Team Providers Care Timekeeper Name Role Phone ChengrosemaryHai DO Primary Care Provider [phone] Reason for Visit * Diagnostic Test (Routine) - Closed Specialty Diagnoses / Procedures Referred By Contac t Referred To Contact Radiology Diagnoses Epigastric abdominal pain Procedures NM Gastric Emptying Scan Yuliana Hernandez MD [facility] [address] [facility] [place] [address] Referral ID Status Reason Start Date Expiration Date V isits Requested Visits Authorized [id number] Closed Specialty Service Requested 04/01/2018 04/01/2019 5 5 Encounter Details Date Type Department Care Team (Latest Contact Info) Description 05/15/2018 9:25 AM EST - 05/15/2018 11:59 PM [facility] Hospital Encounter [place] [address] Yuliana Hernandez MD [facility] [place] [address] Discharge Disposition: Home Social History [...] IMPRESSION Normal gastric emptying Yuliana Hernandez MD [facility] [place] ORDERABLES documented in this encounter Visit Diagnoses Not on filedocumented in this encounter Care Teams Timekeeper Relationship Specialty Start Date End Date Hai Lopez DO [address] [place] [address] PCP - General Family Medicine 10/10/17 documented as of this encounter
--- OUTSIDE RECORDS SUMMARY | 2024-05-26 12:44 | XMS_ITS | Encounter Summary ---
Author Organization [facility] [place] [address] Care Team Providers Care Technology Integration Specialist Name Role Phone Hai Gallegos MD Primary Care Provider [phone] Encounter Details Date Type Department Care Team (Latest Contact Info) Description 10/09/2017 5:48 PM EDT - 10/09/2017 11:59 PM EDT Hospital [place] [phone] Diarrhea, unspecified type Discharge Disposition: Home Social History Tobacco Use [...] (NEURONTIN) 300 mg Capsule 0 10/03/2017 09/27/2018 doxycycline monohydrate (MONODOX) 100 mg Capsule take 1 capsule by mouth twice a day 0 09/24/2017 10/10/2017 predniSONE (DELTASONE) 20 mg Tablet take 1 tablet by mouth once daily 0 09/24/2017 10/10/2017 promethazine-codei ne (PHENERGAN WITH CODEINE) 6.25-10 mg/5 mL Syrup TAKE 5MLS BY MOUTH EVERY 6 HOURS NEEDED 0 09/24/2017 09/27/2018 oxyCODONE (ROXICODONE) 5 mg Tablet Take 2.5 [...] Procedure Name Priority Date/Time Associated Diagnosis Comments STOOL CULTURE SCREEN ([facility]/[facility]) Routine 10/09/2017 12:00 PM EDT Diarrhea, unspecified type CAMPYLOBACTER ANTIGEN Routine 10/09/2017 12:00 PM EDT Diarrhea, unspecified type CRYPTOSPORIDIUM OOCYST ANTIGEN ([facility]/APD) Routine 10/09/2017 12:00 PM EDT Diarrhea, unspecified type C. DIFFICILE SCREEN Routine 10/09/2017 1 2:00 PM EDT Diarrhea, unspecified type CALPROTECTIN,STOOL Routine 10/09/2017 12 :00 PM EDT Diarrhea, unspecified type SHIGA TOXIN ASSAY Routine 10/09/2017 12: 00 PM EDT Diarrhea, unspecified type GIARDIA/CRYPTOSPORIDIUM ANTIGENS ([facility]/CGP/APD/NLH) Routine 10/09/2017 12:00 PM EDT Diarrhea, unspecified type GIARDIA ANTIGEN ([facility]/CGP/APD/NLH) Routine 10/09/2017 12:00 PM EDT Diarrhea, unspecified type STOOL CULTURE Routine 10/09/2017 12:00 PM EDT Diarrhea, unspecified type documented in this encounter Results * Shiga Toxin Detection (10/09/2017 12:00 PM EDT) Shiga Toxin Assay EIA Negative for Shiga Toxin 1 EIA Negative for Shiga Toxin 2 [facility] Stool specimen (specimen) 10/09/2017 12:00 PM EDT 10/10/2017 6:17 PM EDT Narrative Resulting Agency Comment Spec In Lab Yuliana Hernandez MD MICROBIOLOGY - GENER AL ORDERABLES Performing Organization Address City/[facility]/ZIP Co de Phone Number [facility] [place] [address] * Campylobacter Antigen (10/09/2017 12:00 PM EDT) Pathologist [facility] Campylobacter Ag Immunoassay Negative for Campylobacter Antigen [facility] Stool specimen (specimen) 10/09/2017 12:00 PM EDT 10/10/2017 6:17 PM EDT Narrative Resulting Agency Comment Spec In Lab Yuliana Hernandez MD MICROBIOLOGY - GENER AL ORDERABLES Performing Organization Address City/[facility]/ZIP Co de Phone Number [facility] [place] [address] * Stool culture (10/09/2017 12:00 PM EDT) Stool Culture No enteric pathogens isolated [facility] Stool specimen (specimen) 10/09/2017 12:00 PM EDT 10/10/2017 6:17 PM EDT Narrative Resulting Agency Comment Spec In Lab Yuliana Hernandez MD MICROBIOLOGY - GENER AL ORDERABLES Performing Organization Address [facility] Co de Phone Number [facility] [place] [address] * Cryptosporidium Oocyst Antigen ([facility]eb/CGP) (10/09/2017 12:00 PM EDT) Cryptosporidium Antigen Negative Negative [facility] Stool specimen (specimen) 10/09/2017 12:00 PM EDT 10/10/2017 6:15 PM EDT Narrative Resulting Agency Comment Spec In Lab Yuliana Hernandez MD MICROBIOLOGY - GENER AL ORDERABLES Performing Organization Address [facility] Co de Phone Number [facility] [place] [address] * Giardia antigen (Leb/CGP) (10/09/2017 12:00 PM EDT) Giardia Antigen Negative Negative [facility] Comment:Examination for othe r intestinal parasites requires foreign travel history. Stool specimen (specimen) 10/09/2017 12:00 PM EDT 10/10/2017 6:15 PM EDT Narrative Resulting Agency Comment Spec In Lab Yuliana Hernandez MD MICROBIOLOGY - GENER AL ORDERABLES Performing Organization Address City/[facility] Co de Phone Number [facility] [place] [address] * Calprotectin, Stool (10/09/2017 12:00 PM EDT) Calprotectin 44.3 <=50.0 (Normal) [facility] Comment: Test Performed by: [facility] - [address] [address] Stool specimen (specimen) 10/09/2017 12:00 PM EDT 10/11/2017 8:57 AM EDT Narrative Resulting Agency Comment Spec In Lab Yuliana Hernandez MD BODY FLUIDS AND STOO LS ORDERABLES Performing Organization Address City/[facility] Co de Phone Number [facility] [place] [address] * C. Difficile Screen (10/09/2017 12:00 PM EDT) C Diff Interp Negative Negative [facility] Comment: C. diff ??Negative Clostridium difficile is not present in the specimen. If patient is having diarrhea suspected to be from an infectious cause, then Contact Precautions are still required. Stool specimen (specimen) 10/09/2017 12:00 PM EDT 10/10/2017 6:16 PM EDT Narrative Resulting Agency Comment Spec In Lab Yuliana Hernandez MD MICROBIOLOGY - GENER AL ORDERABLES Performing Organization Address [facility] Co de Phone Number [facility] [place] [address] documented in this encounter Visit Diagnoses Diagnosis Diarrhea, unspecified type documented in this encounter Care Teams Technology Integration Specialist Relationship Specialty Start Date End Date Hai Gallegos MD [address] [place] [address] PCP - General 05/31/10 10/09/17 documented as of this encounter
--- OUTSIDE RECORDS SUMMARY | 2024-05-26 12:44 | XMS_ITS | Encounter Summary ---
Author Organization [facility] [place] [address] Care Team Providers Care Radio Technician Name Role Phone Hai Lopez Corey MOORE Primary Care Provider [phone] Reason for Visit * Reason Onset Date Comments Advice Only 03/01/2018 Encounter Details Date Type Department Care Team (Late st Contact Info) Description 03/01/2018 Telephone [place] [phone] Anna Fontanez, speech language pathologist prn Only Social History Tobacco Use Types Packs/Day Years [...] and that she has a bulge that canbe seen below her rib cage. Further reports that her mother has noticed that she is jaundiced. Having increased pain after she eats. She would use [facility] for imaging if ok with Dr. Hernandez. * Telephone Encounter - Anna Fontanez RN - 03/01/2018 9:35 AM EDT Received message from patient stating I am having pain and swelling in my liver and I want to tellDr. Hernandez. Further states she had to cancel her ultrasound because of issues getting time off work. Attempted to return call. LVMM asking patient to call back to discuss further. Will d/w provider if ok for patient to have ultrasound done locally. If so, I will fax the order and arrange with patient. documented in this encounter Plan of Treatment Not on file documented as of this encounter Visit Diagnoses Not on filedocumented in this encounter Care Teams Radio Technician Relationship Specialty Start Date End Date Hai Lopez DO [address] [place] [address] PCP - General Family Medicine 10/10/17 documented as of this encounter
--- OUTSIDE RECORDS SUMMARY | 2024-05-26 12:44 | XMS_ITS | Encounter Summary ---
Author Organization [facility] Address [facility] [place] [address] Care Team Providers Care Pediatric Physician Name Role Phone Hai Lopez Corey MOORE Primary Care Provider [phone] Reason for Visit * Reason Comments Follow-up Encounter Details Date Type Department Care Team (Late st Contact Info) Description 10/26/2017 3:30 PM EDT Office [place] [phone] Yuliana Hernandez MD [facility] [place] [address] H/O liver transplant; Hepatic cirrhosis, unspecified hepatic cirrhosis type, unspecified whether ascites present; Chronic hepatitis C without hepatic coma; BUI (nonalcoholic steatohepatitis) Social History Tobacco Use [...] kg (184 lb 6.4 oz) 10/26/2017 3:26 P M EDT Height 165.1 cm (5' 5) 10/26/2017 3:26 PM EDT Body Mass Index 30.69 10/26/2017 3:26 PM EDT documented in this encounter Progress Notes * Yuliana Hernandez MD - 10/26/2017 3:30 PM [...] since her colonoscopy. Her EGD and colonoscopy were endoscopically normal. Gastric biopsy showed intestinal metaplasia. She [...] ordered. She has significant risk factors for Nashwhich are likely contributing. She is interested in clinical trials I forward her information to her donor relations coordinator. She is not a candidate for [...] MD Section of Gastroenterology & Hepatology [address] [place] [address] 29 minutes of this 30 minute visit was spent in discussion. Cc: Hai Lopez DO documented in this encounter Plan of Treatment Scheduled Orders Name Type Priority Associated Diagnoses Orde r Schedule CBC (with Diff) Lab Routine Hepatic cirrhosis, unspecified hepatic cirrhosis type, unspecified whether ascites present BUI (nonalcoholic steatohepatitis) Expected: 02/25/2018 (Approximate), Expires: 08/27/2018 Comprehensive metabolic panel (non-fasting) Lab Routine Hepatic cirrhosis, unspecified hepatic cirrhosis type, unspecified whether ascites present BUI (nonalcoholic steatohepatitis) Expected: 02/25/2018 (Approximate), Expires: 08/27/2018 Prothrombin Time Lab Routine Hepatic cirrhosis, unspecified hepatic cirrhosis type, unspecified whether ascites present BUI (nonalcoholic steatohepatitis) Expected: 02/25/2018 (Approximate), Expires: 08/27/2018 AFP tumor marker Lab Routine Hepatic cirrhosis, unspecified hepatic cirrhosis type, unspecified whether ascites present BUI (nonalcoholic steatohepatitis) Expected: 02/25/2018 (Approximate), Expires: 08/27/2018 documented as of this encounter Visit Diagnoses Diagnosis H/O liver transplant Liver replaced by transplant Hepatic cirrhosis, unspecified hepatic cirrhosis type, unspecified whether ascites present Chronic hepatitis C without hepatic coma BUI (nonalcoholic steatohepatitis) Other chronic nonalcoholic liver disease documented in this encounter Care Teams Pediatric Physician Relationship Specialty Start Date End Date Hai Lopez DO [address] [place] [address] PCP - General Family Medicine 10/10/17 documented as of this encounter
--- OUTSIDE RECORDS SUMMARY | 2024-05-26 12:44 | XMS_ITS | Encounter Summary ---
Author Organization [facility] [place] [address] Care Team Providers Care Edge Cutter Name Role Phone Hai Lopez DO Primary Care Provider [phone] Reason for Referral * Consultation (Routine) - Specialty Diagnoses / Procedures Referred By Contac t Referred To Contact Weight and Wellness Diagnoses Class 1 obesity with serious comorbidity and body mass index (BMI) of 32.0 to 32.9 in adult, unspecified obesity type Perla Hernandez MD [facility] [place] [address] [facility] [address] [place] [address] Referral ID Status Reason Start Date Expiration Date V isits Requested Visits Authorized [id number] Consult, Test & Treat 08/22/2018 08/22/2019 1 1 Encounter Details Date Type Department Care Team (Late st Contact Info) Description 08/22/2018 11:00 AM EST Office [place] [phone] Perla Hernandez MD [facility] [place] [address] Hepatitis C virus infection without hepatic coma, unspecified chronicity; Class 1 obesity with serious comorbidity and body mass index (BMI) of 32.0 to 32.9 in adult, unspecified obesity type Social History Tobacco Use Types Packs/Day [...] Progress Notes * Perla Hernandez MD - 08/22/2018 11:00 AM [...] helps with that post-prandial pain. She is chewing 15 pieces of gum per day to stop [...] is 32.38 kg/m??. Results for MARY BETH ANTUNEZ ( ) as of 08/22/2018 10:37 03/05/2018 00:00 08/22/2018 08:23 WBC 7.45 9.0 Hemoglobin 15.5 15.6 (H) MCV 90.1 91.2 Platelets 164 167 Results for MARY BETH ANTUNEZ ( ) as of 08/22/2018 10:37 03/05/2018 [...] 02/2018, repeat from today is pending. We discussed the importance of diet and exercise leading to weight loss for maintaining liver health. She will follow-up in August 2018 with labs, ultrasound, and clinic visit. [facility] do given her weight gain and increased difficulty treating her diabetes. ?? #3?Diarrhea, improved #4?Abdominal pain Gastric emptying was normal. Recommend stopping gum chewing as the excess xylitol could be contributing to her symptoms. She will continue the peppermint extracts. Follow up visit in 6 months with labs and ultrasound. Perla Hernandez MD Section of Gastroenterology & Hepatology [address] [place] [address] 30 minutes of this 30 minute visit was spent in discussion. Cc: Hai Lopez DO documented in this encounter Plan of Treatment Scheduled Referrals Name Type Priority Associated Diagnoses Orde r Schedule Referral to Weight & Wellness [facility] Referral Routine Class 1 obesity with serious comorbidity and body mass index (BMI) of 32.0 to 32.9 in adult, unspecified obesity type Ordered: 08/22/2018 documented as of this encounter Results * [...] 11:16 am) PATIENT INFO: ID #: ? [id number] ?: ??[birth year] (58 yrs) Name: ? MARY BETH ANTUNEZ ?Visit Date: 02/12/2019 11:06 am PERFORMED BY: Performed By: ? Daren Rolle RDMS Attending: ?Lakisha Lane MD Referred By: ?PERLA HERNANDEZ Location: ? [place] SERVICE(S) PROVIDED: ??UABDLIM - Hepatology Protocol - Abdominal ? 73946 ??Limited Survey Single Organ or Quadrant - ??[id number] INDICATIONS: ??F3 fibrosis, hep c in SVR, hcc screening COMPARISON: Ultrasound: AB RODRIGUEZ 08/22/18 ------ LIVER: [...] 02/12/2019 11:16 am) PATIENT INFO: ID #: [id number] : [birth year] (58 yrs) Name: MARY BETH ANTUNEZ Visit Date: 02/12/2019 11:06 am PERFORMED BY: Performed By: Daren Rolle RDMS Attending: Lakisha Lane MD Referred By: PERLA HERNANDEZ Location: [place] SERVICE(S) PROVIDED: [facility] - Hepatology Protocol - Abdominal 71681 Limited Survey Single Organ or Quadrant - [id number] INDICATIONS: F3 fibrosis, hep c in SVR, hcc screening COMPARISON: Ultrasound: AB RODRIGUEZ 08/22/18 ------ LIVER: [...] Report 02/12/2019 11:16 am [facility] Hernandez MD [facility] ORDERABLE S * Prothrombin Time (02/12/2019 10:30 AM EDT) Prothrombin Time 10.9 9.4 - 12.5 sec [facility] International Normalization Ratio 1.0 [facility] Comment: An [...] Lab Perla Hernandez MD HEMATOLOGY ORDERABLE S [facility] [place] [address] * (ABNORMAL) Comprehensive metabolic panel (non-fasting) (02/12/2019 10:30 AM EDT) Glucose 168 65 - 199 mg/dL [facility] Comment:Diabetes: >=200 mg/d L plus symptoms Blood Urea Nitrogen 26(H) 8 - 18 mg/dL [facility] Creatinine 0.84 0.70 - 1.20 mg/dL [facility] Sodium 139 135 - 145 mmol/L [facility] Potassium 4.7 3.5 - 5.0 mmol/L [facility] Comment: Please note: ??Patients with WBC >100,000 may have falsely elevated Potassium levels. ??For accurate Potassium quantification in these patients send serum separator tube (gold top) for subsequent determinations. ??Contact the Clinical Chemistry Laboratory if there are any questions. Chloride 102 98 - 107 mmol/L [facility] Carbon Dioxide 27 22 - 31 mmol/L [facility] Anion Gap 10 5 - 15 mmol/L [facility] Calcium 9.5 8.5 - 10.5 mg/dL [facility] Protein, Total 7.7 6.1 - 8.0 gm/dL [facility] Albumin 4.7 3.2 - 5.2 gm/dL [facility] Aspartate Aminotransferase 18 0 - 30 unit/L [facility] Alanine Aminotransferase 16 0 - 30 unit/L [facility] Alkaline Phosphatase 95 35 - 105 unit/L [facility] Bilirubin, Total 0.4 0.2 - 1.3 mg/dL [facility] Est Glomerular Filtration Rate 76 >=60 mL/min/1. 73 m?? [facility] Comment: The eGFR was calculated using the CKD-EPI equation. As with all creatinine based estimates of kidney function, eGFR values calculated with the CKD-EPI equation are not accurate in patients with acute kidney failure, extremes of body mass or the acutely ill. http://[employer]/[facility] – TULSAnkf eGFR 88 >=60 mL/min/1. 73 m?? [facility] Comment: The eGFR was calculated using the CKD-EPI equation. As with all creatinine based estimates of kidney function, eGFR values calculated with the CKD-EPI equation are not accurate in patients with acute kidney failure, extremes of body mass or the acutely ill. http://[employer]/DHMCnkf Blood specimen (specimen) 02/12/2019 10:30 AM EDT 02/12/2019 10:46 AM EDT Narrative Resulting Agency Comment Spec In Lab Perla Hernandez MD CHEMISTRY ORDERABLES [facility] [place] [address] documented in this encounter Visit Diagnoses Diagnosis Hepatitis C virus infection without hepatic coma, unspecified chronicity Class 1 obesity with serious comorbidity and body mass index (BMI) of 32.0 to 32.9 in adult, unspecified obesity type Hepatitis C virus infection without hepatic coma, unspecified chronicity documented in this encounter Care Teams Edge Cutter Relationship Specialty Start Date End Date Hai Lopez DO [address] [place] [address] [place] [address] PCP - General Family Medicine 10/10/17 documented as of this encounter
--- OUTSIDE RECORDS SUMMARY | 2024-05-26 12:44 | XMS_ITS | Encounter Summary ---
Author Organization [facility] Address [facility] [place] [address] Care Team Providers Care Heel Lift Gouger Name Role Phone John Hai Corey MOORE Primary Care Provider [phone] Reason for Referral * Consultation (Routine) - Closed Specialty Diagnoses / Procedures Referred By Cristal t Referred To Contact Sleep Center Diagnoses Suspected sleep apnea Sri Briseno MD [facility] [place] [address] [facility] [place] [address] Referral ID Status Reason Start Date Expiration Date V isits Requested Visits Authorized [id number] Closed Specialty Service Requested 09/27/2018 09/27/2019 1 1 Reason for Visit * Reason Comments Weight Management * Consultation (Routine) - Specialty Diagnoses / Procedures Referred By Contac t Referred To Contact Weight and Wellness Diagnoses Class 1 obesity with serious comorbidity and body mass index (BMI) of 32.0 to 32.9 in adult, unspecified obesity type Yuliana Hernandez MD [facility] [address] [facility] [place] [address] Referral ID Status Reason Start Date Expiration Date V isits Requested Visits Authorized [id number] Consult, Test & Treat 08/22/2018 08/22/2019 1 1 Encounter Details Date Type Department Care Team (Late st Contact Info) Description 09/27/2018 9:15 AM EDT Office Visit Weight and Wellness at [facility] [address] [place] [address] Sri Briseno MD [facility] [place] [address] Class 1 obesity; Suspected sleep apnea; Type 2 diabetes mellitus with hyperglycemia, with long-term current use of insulin; Essential hypertension; BUI (nonalcoholic steatohepatitis) Social History Tobacco Use [...] * Patient Instructions* Sri Briseno MD - 09/27/2018 9:15 AM EDT HEALTHY [...] intake appointment with our dietitian and health motorcoach driver--please bring a 7-day food log to this [...] day documented in this encounter Progress Notes * Sri Briseno MD - 09/27/2018 9:15 AM EDT [facility] Visit Patient Name: Mary Beth Holman Date of : 1960 Age: 58 y.o. Hai Lopez DO Thank you for referring Mary Beth Hloman to the [facility] for a consultation forobesity management. I reviewed past records including notes, labs, and other evaluation and discussed them with the patient. CHIEF COMPLAINT: Management of excess weight HISTORY OF PRESENT ILLNESS: Mary Beth Holman is a 58 y.o. female referred to the [facility] for an evaluation of obesity. Weight History: Mary Beth reports that weight has been an issue since her late 30s. Highest weight in adulthood was 230pounds at age 55; her current weight is [...] episodes of emotional eating are triggered by depressionand boredom, and will prompt her to eat [...] feels embarrassed and ashamed after the episodes. Shewill eat to the point of feeling sick. Lowest weight in adulthood was 130 pounds prior to in her 30s. Prior weight loss attemptshave included dietary modification, increased walking; she has not tried formal weight loss programs like Weight Watchers in the past. She has not used ayhq-fgv-ohfggog or prescription weight loss medications in the past. She reports that the importance of making a change is 10 out of 10, while confidence to do so is also 10 out of 10; this is because I know that if I have guidance and support, and positive influences, I can lose weight. Family history of obesity: Mother, siblings, 1 daughter 24 hour diet recall - Breakfast: 1/2 banana, 2 slices wheat toast with butter and peanut butter as much as I can fit on there - Lunch: Whole chicken salad sandwich with [...] L-sided sciatica) and owns a Wii Fit. [facility] Initial Responses 09/27/2018 URICA - Readiness [...] TFEQ-Emotional Eating 55.55 Food Insecurity Score 2 [place] Category I Result 1 (Positive) [place] Category II Result 0 [place] Category III 1 (Positive) [place] Sleep Apnea Total 2 (High Risk) Schooling [...] RECOMMENDATIONS: Mary Beth Holman presents to the [facility] for a consultative visit regarding obesity [...] that obesity is a chronic disease requiring custodial management. Obesity is associated with increased risk of adverse health and psychosocial consequences as well as higher mortality. In addition, the increase in visceral fat volume places the patient at greater risk for metabolic disease. We reviewed the overall goals for obesity management, which include improvingthe patient's health, quality of life, and body weight/composition. [...] the Healthy Lifestyles Program (HLP) at the [facility]. This is a yearlongprogram during which the patient will receive counseling, education, and support around nutrition, physical activity, and behavioral therapy. Her case will be reviewed by our team to determine appropriateness for participation in the program. ?? Qualifies for DPP based on DPRP score of 17 ?? Will schedule an intake appointment with our dietitian and health motorcoach driver--she will keep a 7-day food journal prior [...] Type II Diabetes, HTN, Hyperlipidemia, Depression, JEAN-PAUL, NAFLD, vitamin D deficiency and renal disease ?? Given [...] 40 minutes of which were spent in rjal-kp-oceb discussion/counseling re obesity, nutrition and activity as well as obesity related co-morbidities. Follow up with MD in 1 month, sooner as needed. documented in this encounter Plan of Treatment Scheduled Referrals Name Type Priority Associated Diagnoses Orde r Schedule Referral to Sleep Disorders Center Outpatient Referral Routine Suspected sleep apnea Ordered: 09/27/2018 documented as of this encounter Procedures Procedure Name Priority Date/Time Associated Diagnosis Comments TSH Routine 09/27/2018 10:44 AM EDT Class 1 obesity LDL CHOLESTEROL, DIRECT Routine 09/27/2018 10:44 AM EDT HEMOGLOBIN A1C Routine 09/27/2018 10:44 AM EDT Class 1 obesity Type 2 diabetes mellitus with hyperglycemia, with long-term current use of insulin LIPID PANEL (REFLEX DIRECT LDL) Routine 09/27/2018 10:44 AM EDT Class 1 obesity documented in this encounter Results * LDL Cholesterol, Direct (09/27/2018 10:44 AM EDT) LDL Cholesterol, Direct 180 mg/dL [facility] Comment: Lowest Risk: <100 mg/dL Lower Risk: 100-129 mg/dL Borderline High Risk: 130-159 mg/dL High Risk: 160-189 mg/dL Very High Risk: >sy=255 mg/dL Blood specimen (specimen) 09/27/2018 10:44 AM EDT 09/27/2018 12:48 PM EDT Narrative Resulting Agency Comment Spec In Lab Sri Briseno MD CHEMISTRY ORDERABLES [facility] [place] [address] * Lipid Panel (09/27/2018 10:44 AM EDT) Cholesterol, Total 257 mg/dL [facility] Comment: Lower Risk: <200 mg/dL Average Risk: 200-239 mg/dL Higher Risk: >yv=241 mg/dL Triglyceride 414 mg/dL [facility] Comment: Average Risk/Lower Risk: <150 mg/dL Borderline High Risk: 150-199 mg/dL High Risk: 200-499 mg/dL Very High Risk: >bt=450 mg/dL HDL Cholesterol 45 mg/dL [facility] Comment: Males: ?? Higher Risk: <40 mg/dL Females: ?? HIgher Risk: <50 mg/dL LDL Cholesterol Not Calculated [facility] Comment: Since a calculated LDL value is not valid for triglycerides greater than 400 mg/dl, a direct LDL determination is performed instead. Lowest Risk: <100 mg/dL Lower Risk: 100-129 mg/dL Borderline High Risk: 130-159 mg/dL High Risk: 160-189 mg/dL Very High Risk: >ie=215 mg/dL Cholesterol/HDL Ratio 5.[address] [facility] Lipid Interpretation See Note [facility] Comment: Lipid management should be guided by a patient? s ASCVD risk, goals and preferences. ACC/AHA Guidelines recommend high intensity statin if clinical ASCVD or LDL greater than or equal to 190 mg/dL. http://Embue.com/HAB-VPC-Pasgnxnpe Adults aged 40-75 with LDL 70-189 mg/dL should have their 10 year ASCVD risk estimated with the ACC/AHA ASCVD risk networks software consultant http://tools.acc.org/WOGYI-Crad-Ulwygserd/ Statin should be discussed if risk greater [...] In Lab Sri Briseno MD CHEMISTRY ORDERABLES [facility] [place] [id number] * (ABNORMAL) Hemoglobin A1c (09/27/2018 10:44 AM EDT) Hemoglobin A1c 7.7(H) 4.3 - 5.6 % [facility] Comment: Reference Range: 4.3 - [...] Mellitus, Diabetes Care 2013; 36: Suppl. 1, T57-14 Estimated Average Glucose 175 mg/dL [facility] Comment: eAG equivalents for HbA1c [...] into estimated average glucose values. ??Diabetes Care 2008:31(8):1643-5358. Blood specimen (specimen) 09/27/2018 10:44 AM EDT 09/27/2018 12:43 PM EDT Narrative Resulting Agency Comment Spec In Lab Sri Briseno MD CHEMISTRY ORDERABLES Performing Organization Address [facility] de Phone Number [facility] [place] [address] * TSH (09/27/2018 10:44 AM EDT) Thyroid Stimulating Hormone 1.85 0.27 - 4.20 mcIU/mL [facility] Blood specimen (specimen) 09/27/2018 10:44 AM EDT 09/27/2018 12:43 PM EDT Narrative Resulting Agency Comment Spec In Lab Sri Briseno MD CHEMISTRY ORDERABLES Performing Organization Address [facility] de Phone Number [facility] [place] [address] documented in this encounter Visit Diagnoses Diagnosis Class 1 obesity Suspected sleep apnea Type 2 diabetes mellitus with hyperglycemia, with long-term current use of insulin Essential hypertension Unspecified essential hypertension BUI (nonalcoholic steatohepatitis) Other chronic nonalcoholic liver disease documented in this encounter Care Teams Heel Lift Gouger Relationship Specialty Start Date End Date Hai Lopez DO [address] [place] [address] PCP - General Family Medicine 10/10/17 documented as of this encounter
--- OUTSIDE RECORDS SUMMARY | 2024-05-26 12:44 | XMS_ITS | Encounter Summary ---
Author Organization [facility] Address [place] [address] Care Team Providers Care Internetworking Technician Name Role Phone Hai Gallegos MD Primary Care Provider [phone] Encounter Details Date Type Department Care Team (Latest Contact Info) Description 08/16/2017 - 08/16/2017 12:04 AM [facility] Hospital Encounter Radiology Library [place] [facility] [place] [id number] Hai Gallegos MD [address] [place] [address] Discharge Disposition: Home Social History Tobacco Use [...] FILM LIBRARY STORAGE ONLY ULTRASOUND STUDY Routine 08/16/2017 12:00 AM EST documented in this encounter Results * Film Library- Storage Only Ultrasound Study (08/16/2017 12:00 AM EST) Narrative [facility] - 08/21/2017 4:54 PM EST This exam is for storage only and is auto-finalizing. Hai Gallegos MD G FILM LIBRARY ORDERABLES [place], [place] documented in this encounter Visit Diagnoses Not on filedocumented in this encounter Care Teams Internetworking Technician Relationship Specialty Start Date End Date Hai Gallegos MD [address] [place] [address] PCP - General 05/31/10 10/09/17 documented as of this encounter
--- OUTSIDE RECORDS SUMMARY | 2024-05-26 12:44 | XMS_ITS | Encounter Summary ---
[place] [address] Care Team Providers Care Occupational Health Nursing Director Name Role Phone Hai Lopez DO Primary Care Provider [phone] Reason for Referral * Diagnostic Test (Routine) - Closed Specialty Diagnoses / Procedures Referred By Contac t Referred To Contact Radiology Diagnoses Epigastric abdominal pain Procedures NM Gastric Emptying Scan Yuliana Hernandez MD [facility] [place] [address] [place] [address] Referral ID Status Reason Start Date Expiration Date V isits Requested Visits Authorized [id number] Closed Specialty Service Requested 04/01/2018 04/01/2019 5 5 Encounter Details Date Type Department Care Team (Late st Contact Info) Description 04/01/2018 Orders [place] [address] Yuliana Hernandez MD [facility] [place] [address] Epigastric abdominal pain Social History Tobacco Use Types Packs/Day Years [...] documented as of this encounter Results * NM Gastric Emptying [...] IMPRESSION Normal gastric emptying Yuliana Hernandez MD [facility] [place] ORDER[place]LES documented in this encounter Visit Diagnoses Diagnosis Epigastric abdominal pain Abdominal pain, epigastric Epigastric abdominal pain Abdominal pain, epigastric documented in this encounter Care Teams Occupational Health Nursing Director Relationship Specialty Start Date End Date Hai Lopez DO [address] [place] [address] PCP - General Family Medicine 10/10/17 documented as of this encounter
--- OUTSIDE RECORDS SUMMARY | 2024-05-26 12:45 | XMS_ITS | Encounter Summary ---
Author Organization [facility] [place] [address] Care Team Providers Care Rabbit Dresser Name Role Phone Hai Gallegos MD Primary Care Provider [phone] Reason for Visit * Reason Comments Low Back Pain Encounter Details Date Type Department Care Team (Late st Contact Info) Description 07/26/2015 9:00 AM EST Office Visit Functional [facility] Program at [address] [address] Skylar Funes, OT Chronic low back pain Social History Tobacco Use Types Packs/Day Years Used Date Smoking Tobacco: Every Day Cigarettes Smokeless Tobacco: Never Sex and Gender Information Value Date Recorded Sex Assigned at Not on file Gender Identity Not on file Sexual Orientation Not on file documented as of this encounter Progress Notes * Skylar Funes OT - 07/26/2015 9:06 AM EST [facility] Occupational Therapy Note [facility] Day 10 Protocol Subjective: Ms. Holman returns today for a scheduled follow up appointment with [facility]. She reports that she was unable to complete her home lifting program over the weekend due to a family illness, however her back was feeling pretty good today. Objective: Refer to [facility] protocol for details and explanation of each activity. Ms. Holman participated in the following activities: Functional Therapy: 1. AM Session of functional conditioning ( X ) Completed ( ) Not Completed 2. PM Session of functional conditioning ( X ) Completed ( ) Not Completed Individualized Treatment: Increased resistance levels of functional conditioning exercises according to personal recovery goals. Please see goals in [...] program activities form 8:00 a.m. through 2:30 p.m. today. A total of 45 minutes was spent during that time to establish and implement individualized occupational therapy strategies. Care was provided by both an Occupational Therapist and International Tax Manager, BRONWYN Ortega documented in this encounter Plan of Treatment Not on file documented as of this encounter Visit Diagnoses Diagnosis Chronic low back pain Lumbago documented in this encounter Care Teams Rabbit Dresser Relationship Specialty Start Date End Date Hai Gallegos MD [address] [place] [address] PCP - General 05/31/10 10/09/17 documented as of this encounter
--- OUTSIDE RECORDS SUMMARY | 2024-05-26 12:45 | XMS_ITS | Encounter Summary ---
Author Organization [facility] [place] [address] Care Team Providers Care Horticulture/Floriculture Teacher Name Role Phone Hai Gallegos MD Primary Care Provider [phone] Reason for Visit * Reason Onset Date Comments Other 04/21/2015 Encounter Details Date Type Department Care Team (Late st Contact Info) Description 04/21/2015 Telephone [place] [address] [facility] [place] [address] Other Social History Tobacco Use Types Packs/Day Years Used Date Smoking Tobacco: Every Day Cigarettes Smokeless Tobacco: Never Sex and Gender Information Value Date Recorded Sex Assigned at Not on file Gender Identity Not on file Sexual Orientation Not on file documented as of this encounter Miscellaneous Notes * Telephone Encounter - Emiliana Botello MSW - 04/21/2015 9:24 AM EDT OFFICE OF CARE MANAGEMENT [facility] Medical Providers Pre Authorization Request from Dr. Lyles faxed to Aimee Harman [phone] / fax [phone] who is out until 04/26 her covering case advocate Shine is also mentioned so as to hopefully start the 14 day answer or PINKY clock before 04/26. Copy to medical record, copy held in [facility]. documented in this encounter Plan of Treatment Not on file documented as of this encounter Visit Diagnoses Not on filedocumented in this encounter Care Teams Horticulture/Floriculture Teacher Relationship Specialty Start Date End Date Hai Gallegos MD [address] [place] [address] PCP - General 05/31/10 10/09/17 documented as of this encounter
--- OUTSIDE RECORDS SUMMARY | 2024-05-26 12:45 | XMS_ITS | Encounter Summary ---
Author Organization [facility] [place] [address] Care Team Providers Care Shirt Finisher Name Role Phone Hai Gallegos MD Primary Care Provider [phone] Reason for Visit * Reason Onset Date Comments Other 05/07/2015 Encounter Details Date Type Department Care Team (Late st Contact Info) Description 05/07/2015 [place] [address] Emiliana Botello [facility] [place] [address] Other Social History Tobacco Use Types Packs/Day [...] update us. She also suggests contacting her [facility] ph [phone]/ fax [phone] timo Castillo at ph [phone] regarding her claim# [id number] which I will do pending re contact by her to confirm care for her mother. Also discussed in the absence of approval she could stay at [facility] which she was amenable to. PLAN: 1) monitor for confirmation of coverage for mother's care 2) followup w pending this and if not assist in coordinating [facility] if Ms. Holman is amenable. 3) she does not have legal representation for [place] claim (request for pre authorization must be responded to by 05/12) but does for wrongful termination documented in this encounter Plan of Treatment Not on file documented as of this encounter Visit Diagnoses Not on filedocumented in this encounter Care Teams Shirt Finisher Relationship Specialty Start Date End Date Hai Gallegos MD [address] [place] [address] PCP - General 05/31/10 10/09/17 documented as of this encounter
--- OUTSIDE RECORDS SUMMARY | 2024-05-26 12:45 | XMS_ITS | Encounter Summary ---
Author Organization [facility] [place] [address] Care Team Providers Care Lean Manufacturing Engineer Name Role Phone Hai Gallegos MD Primary Care Provider [phone] Reason for Visit * Reason Comments Back Pain Encounter Details Date Type Department Care Team (Late st Contact Info) Description 07/23/2015 8:00 AM EST Office Visit Functional [facility] Program at [address] [address] Juan Carlos Foley, PT [facility] [place] [address] Chronic low back pain Social History Tobacco Use Types Packs/Day Years Used Date Smoking Tobacco: Every Day Cigarettes Smokeless Tobacco: Never Sex and Gender Information Value Date Recorded Sex Assigned at Not on file Gender Identity Not on file Sexual Orientation Not on file documented as of this encounter Progress Notes * Juan Carlos Foley, PT - 07/23/2015 10:26 AM EST [facility] Physical Therapy Note [facility] Day 9 Protocol Subjective: Mary Beth returns today for a scheduled follow up appointment with [facility]; she reports gettingeasily fatigued with 3 minute trial of elliptical today but no symptoms aggravated during. Objective: Treatment Received: Refer to [facility] protocol for explanation of program/physical therapy details. 1. Therapeutic and Functional Exercise: See FRP flow sheets for progression. Strengthening and conditioning designed according to personal functional recovery goals and [facility] protocol was: (x) Completed ( ) [...] both a physical therapist and physical therapist home care assistant. Cande Wilson PTA documented in this encounter Plan of Treatment Not on file documented as of this encounter Visit Diagnoses Diagnosis Chronic low back pain Lumbago documented in this encounter Care Teams Lean Manufacturing Engineer Relationship Specialty Start Date End Date Hai Gallegos MD [address] [place] [address] PCP - General 05/31/10 10/09/17 documented as of this encounter
--- OUTSIDE RECORDS SUMMARY | 2024-05-26 12:45 | XMS_ITS | Encounter Summary ---
Author Organization [facility] [address] Care Team Providers Care Distribution Designer Name Role Phone Hai Gallegos MD Primary Care Provider [phone] Reason for Visit * Reason Comments Back Pain Encounter Details Date Type Department Care Team (Late st Contact Info) Description 07/27/2015 8:00 AM EST Office Visit Functional [facility]ai Program at [address] [address] Juan Carlos Foley, PT [facility] [place] [address] Chronic low back pain Social History Tobacco Use Types Packs/Day Years Used Date Smoking Tobacco: Every Day Cigarettes Smokeless Tobacco: Never Sex and Gender Information Value Date Recorded Sex Assigned at Not on file Gender Identity Not on file Sexual Orientation Not on file documented as of this encounter Progress Notes * Juan Carlos Foley, PT - 07/27/2015 10:28 AM EST [facility] Physical Therapy Note [facility] Day 11 Protocol Subjective: Mary Beth returns today for a scheduled follow up appointment with [facility]; she reports having access to some exercise equipment and will work out with friends to stay consistent. Objective: Treatment Received: Refer to [facility] protocol for explanation of program/physical therapy details. 1. Therapeutic and Functional Exercise: See [facility] flow sheets for progression. Strengthening and conditioning designed according to personal functional recovery goals and [facility] protocol was: (x) Completed ( [...] and endurance exercises to continue for the retirement. Assessment: Mary Beth is progressing as planned [...] both a physical therapist and physical therapist minister assistant. Cande Wilson PTA documented in this encounter Plan of Treatment Not on file documented as of this encounter Visit Diagnoses Diagnosis Chronic low back pain Lumbago documented in this encounter Care Teams Distribution Designer Relationship Specialty Start Date End Date Hai Gallegos MD [address] [place] [address] PCP - General 05/31/10 10/09/17 documented as of this encounter
--- OUTSIDE RECORDS SUMMARY | 2024-05-26 12:45 | XMS_ITS | Encounter Summary ---
Author Organization [facility] [place] [address] Care Team Providers Care Cigarette Machine Operator Name Role Phone Hai Gallegos MD Primary Care Provider [phone] [phone] Reason for Visit * Reason Comments Low Back Pain Encounter Details Date Type Department Care Team (Late st Contact Info) Description 07/21/2015 9:00 AM EST Office Visit Functional Confucianist Program at [address] [address] Skylar Funes, OT Chronic low back pain Social History Tobacco Use Types Packs/Day Years Used Date Smoking Tobacco: Every Day Cigarettes Smokeless Tobacco: Never Sex and Gender Information Value Date Recorded Sex Assigned at Not on file Gender Identity Not on file Sexual Orientation Not on file documented as of this encounter Progress Notes * Skylar Funes OT - 07/21/2015 7:59 AM EST [facility] Occupational Therapy Note [facility] Day Protocol Subjective: Ms. Holman is attending day 7 of the program. She reports still feeling a little weak from being out sick with a stomach virus, however she was able to eat toast this morning and is feeling better. She reported concerns about being out of work, and that she was still interested in finding work within her physical capacities. She stated that she had worked with her Vocational Rehabilitation Counselor to write her resume. Objective: Refer to [facility] protocol for details and explanation of each activity. Ms. Holman participated in the following activities: 1. AM Functional Conditioning ??? PM Functional Conditioning: circuit ??? Stretching and Walk ??? Lifting re-evaluation Functional Strength Testing: Day 1 Day 7 Repetitive Floor to Waist (PILE) 10/115 20/120 Individualized Treatment: Increased resistance levels of functional conditioning exercises according to personal recovery goals. Completed midway functional strength testing. Used graphs as a visual aide to discuss daily progression of conditioning exercises toward 3 week strength training goals. Will continue to use graphs to map daily progress toward these goals. Patient Education: Reviewed job hunting skills and hints to use after an injury and rehabilitation.Discussed topics such as employers' obligations, vocational rehabilitation, writing resumes and cover letters, and the application and interview process. Also reviewed the [place] Disabilities Act as it pertains to job application. Ms. Holman participated actively in progression of function. Assessment: Ms. Holman is progressing according to [facility] protocol and her functional goals as noted in initial OT evaluation report on Day 1. Objective testing today confirms she has made some gains thus far in terms of her physical capacities. Plan: Return for follow up with [facility] per protocol. Length of Treatment: Ms. Holman participated in program activities from 8:00 a.m. through 2:30 p.m. today. A total of 45 minutes were spent during that time to implement individualized occupational therapy strategies. Care was provided by both an Occupational Therapist and Refueling Ramp Attendant, BRONWYN Ortega documented in this encounter Plan of Treatment Not on file documented as of this encounter Visit Diagnoses Diagnosis Chronic low back pain Lumbago documented in this encounter Care Teams Cigarette Machine Operator Relationship Specialty Start Date End Date Hai Gallegos MD [address] [place] [address] PCP - General 05/31/10 10/09/17 documented as of this encounter
--- OUTSIDE RECORDS SUMMARY | 2024-05-26 12:45 | XMS_ITS | Encounter Summary ---
Author Organization [facility] [place] [address] Care Team Providers Care Invisible Braces Orthodontist Name Role Phone Hai Gallegos MD Primary Care Provider [phone] [phone] Reason for Visit * Diagnostic Test (Routine) - Closed Specialty Diagnoses / Procedures Referred By Contac t Referred To Contact Orthopaedics Diagnoses Chronic back pain Eleanor Lancaster, REPRESENTATIVE PERSONAL SERVICE [facility] [place] [address] [facility] [place] [address] [place] [address] Referral ID Status Reason Start Date Expiration Date V isits Requested Visits Authorized [id number] Closed Consult, Test & Treat 04/06/2015 04/05/2016 1 1 Encounter Details Date Type Department Care Team (Late st Contact Info) Description 07/15/2015 3:00 PM EST Office [place] [address] Medardo Lyles MD [facility] [place] [address] Chronic low back pain Social History Tobacco Use Types Packs/Day Years Used Date Smoking Tobacco: Every Day Cigarettes Smokeless Tobacco: Never Sex and Gender Information Value Date Recorded Sex Assigned at Not on file Gender Identity Not on file Sexual Orientation Not on file documented as of this encounter Progress Notes * Medardo Lyles MD - 07/15/2015 4:48 PM EST [facility]CTIONAL [facility] REHABILTIATION TRAINING LECTURE Chief complaint requiring rehabilitation: back pain Title: ? Pain & Function? Presenter: Medardo Lyles MD This one hour lecture began with interactive exercises to demonstrate the difficulties in assessingand understanding another person???s pain. Then the question of activity limitation and prescription was reviewed in terms of personal pain experience and expectations, functional goals and priorities, medical expertise. The learning model of reacting to [...] Lumbago documented in this encounter Care Teams Invisible Braces Orthodontist Relationship Specialty Start Date End Date Hai Gallegos MD [address] [place] [address] PCP - General 05/31/10 10/09/17 documented as of this encounter
--- OUTSIDE RECORDS SUMMARY | 2024-05-26 12:45 | XMS_ITS | Encounter Summary ---
Author Organization [facility] Address [address] [place] [address] Care Team Providers Care [facility] Name Role Phone Hai Gallegos MD Primary Care Provider Unav ailable Encounter Details Date Type Department Care Team (Late st Contact Info) Description 08/11/[address] [facility] Laboratory Services - [facility] ([facility] [address] [place] [address] [id number] David Marie MD [address] [place] [address] Social History Tobacco Use Types Packs/Day Years Used Date Smoking Tobacco: Never Assessed Comments Unknown Sex and Gender Information Value Date Recorded Sex Assigned at Not on file Legal Sex Female 17:54 EST Gender Identity Not on file Sexual Orientation Not on file documented as of this encounter Plan of Treatment Not on file documented as of this encounter Procedures Procedure Name Priority Date/Time Associated Diagnosis Comments SURGICAL PATHOLOGY Routine 08/11/2010 0:00 EST documented in this encounter Results * SURGICAL PATHOLOGY (08/11/2010 0:00 EST) Pathology Report: SURGICAL PATHOLOGY REPORT ? Reports generated via electronic interface contain original data; ? however they are lacking the format of the original report. ? Caution should be taken when reading/interpreti ng unformatted reports. ? Name: ? TULIO, MARY BETH L ? Accession #: ? [id number] ? : ? 1960 (Age: 49) ??F ? Collect Date: ? 08/11/2010 ? Location: ? [facility] ? Receive Date: ? 08/11/2010 ? Provider: DAVID MARIE MD ? Copy to: HAI ZIOBROWSKI MD ? Final Pathologic Diagnosis: ? Soft tissue, 35 cm, biopsy: ? 1. ?Squamous mucosa with rare intraepithelial eosinophils (less than ? 5/HPF) consistent with reflux esophagitis. ? 2. ? Columnar mucosa with focally active mild chronic inflammation. ? 3. ?No Helicobacter pylori-like microorganisms identified on ? H&E-stained sections. ? 4. ?No goblet cell intestinal metaplasia identified. ? Document reviewed and electronically signed by: ? CELESTE RUEDA MD ? Report ??Date: 08/15/2010 11:52 ? By the signature above, the attending physician certifies that he/she has ? personally conducted a gross and/or microscopic examination of the described ? specimens and rendered or confirmed the above diagnosis. ? Specimen(s) Received: ? Bx esophagus at 35 cm ? Clinical History: ? Epigastric pain ? Gross Description: ? Received in Mahogany's fixative labelled Mary Beth Holman and bx esophagus 35 cm are four leonardo-pink tissues averaging 0.3 x 0.3 x 0.2 cm. ??The specimens ?? are submitted as (A1) and (A2). (Dr. Cai)/mpl ? End of Report ? [facility] 08/11/2010 08/11/2010 17: 10 EST us David Marie MD PATHOLOGY ORDERABLES Final Result [facility] [address] [place] [address] documented in this encounter Visit Diagnoses Not on filedocumented in this encounter Care Teams [facility] Relationship Specialty Start Date End Date Hai Gallegos MD PCP - General 08/12/10 documented as of this encounter
--- OUTSIDE RECORDS SUMMARY | 2024-05-26 12:45 | XMS_ITS | Encounter Summary ---
Author Organization [facility] [place] [address] Care Team Providers Care Temper Mill Roller Name Role Phone Hai Gallegos MD Primary Care Provider [phone] [phone] Reason for Visit * Reason Onset Date Comments Other 06/14/2015 Encounter Details Date Type Department Care Team (Late st Contact Info) Description 06/14/2015 Telephone [place] [phone] Emiliana Botello [facility] [place] [address] Other Social History Tobacco Use Types Packs/Day [...] 3:10 PM EST OFFICE OF CARE MANAGEMENT [facility] Met with Ms. Holman in [facility]ine Center clinic to confirm planned July 13-2015 Functional Jehovah'S Witness attendance. Coverage in principle for program and local lodging confirmed by wojciech Moscoso at ph [phone]/ fax [phone] regarding Ms. Holman's claim# [id number]. Ms. Holman reports she definitely has coverage for care of her mother (granddaughter) will have a car when she is local. Discussed need to pack own lunch and snacks and perhaps request refrigerator in her room as [address] facility where [facility] is does not have a cafeteria. No further concerns identified.PLAN: 1) July 13-2015 [facility] documented in this encounter Plan of Treatment Not on file documented as of this encounter Visit Diagnoses Not on filedocumented in this encounter Care Teams Temper Mill Roller Relationship Specialty Start Date End Date Hai Gallegos MD [address] [place] [address] PCP - General 05/31/10 10/09/17 documented as of this encounter
--- OUTSIDE RECORDS SUMMARY | 2024-05-26 12:45 | XMS_ITS | Encounter Summary ---
Author Organization [facility] Address [facility] [place] [address] Care Team Providers Care Mathematics Faculty Member Name Role Phone Hai Gallegos MD Primary Care Provider [phone] [phone] Reason for Visit * Reason Comments Back Pain Left Leg Pain Encounter Details Date Type Department Care Team (Late st Contact Info) Description 07/13/2015 2:00 PM EST Office Visit Functional Yarsani Program at [address] [address] Eleanor Lancaster APRN [facility] [place] [address] Chronic back pain Social History Tobacco Use Types Packs/Day Years Used Date Smoking Tobacco: Every Day Cigarettes Smokeless Tobacco: Never Sex and Gender Information Value Date Recorded Sex Assigned at Not on file Gender Identity Not on file Sexual Orientation Not on file documented as of this encounter Progress Notes * Eleanor Lancaster APRN - 07/13/2015 2:02 PM EST Chief complaint requiring rehabilitation: low back and left lower extremity pain with sensory loss and weakness in the left lower extremity. This is the goals and health barriers visit and note for admission to the Functional Yarsani Program. 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 Recreational: Manage flower and vegetable [...] unspecified documented in this encounter Care Teams Mathematics Faculty Member Relationship Specialty Start Date End Date Hai Gallegos MD [address] [place] [address] PCP - General 05/31/10 10/09/17 documented as of this encounter
--- OUTSIDE RECORDS SUMMARY | 2024-05-26 12:45 | XMS_ITS | Encounter Summary ---
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 Ivan Brown MD [address] [place] [address] Salty Butler MD [facility] [place] [address] Referral ID Status Reason Start Date Expiration Date Visits Re quested Visits Authorized [id number] Closed 12/19/2016 12/19/2017 1 1 Encounter Details Date Type Department Care Team (Latest Contact Info) Description 01/04/2017 8:20 AM EDT Office [place] [address] Salty Butler MD [facility] [place] [address] Sialadenitis; Sialolithiasis of submandibular gland Social History Tobacco Use Types Packs/Day Years [...] kg (212 lb 4.8 oz) 01/04/2017 8:12 A M EDT Height 165.1 cm (5' 5) 01/04/2017 8:12 AM EDT Body Mass Index 35.33 01/04/2017 8:12 AM EDT documented in this encounter Progress Notes * Salty Butler MD - 01/04/2017 8:20 AM EDT [facility] Otolaryngology - Head and Neck Surgery Lizandro Becerril PA-C 01/04/17 9:17 AM [place] [address] Office Patient Name: Mary Beth Holman Date of : 1960 PCP: Hai Gallegos MD Chief Complaint: Sialolithiasis and sialodenitis History of Present Illness: Mary Beth Holman is a 56 y.o. year old female with a history of Uncontrolled DM2, COPD, 75 pack yearsmoking history, 6 year heavy drinking history, Asthma, and Obesity who was seen today at the request of Ivan Brown in consultation for recurrent sialolilthiasis [...] given Augmentin that treated it. Went to [facility] who excision, but referred to [facility] due to comorbidities. Has smoking history of [...] history of Uncontrolled DM2, COPD, 75 pack yearsmoking history, 6 year heavy drinking history, Asthma, and Obesity who was seen today in consultation for recurrent left submandibular sialolilthiasis and sialodenitis. Began a year ago, has had 4-5episodes of swelling; generally able to treat with [...] gland excision. Consent obtained. Lizandro Becerril PA-C [place], [place] [address] Office 01/04/17 9:17 AM [facility] Otolaryngology Attending Note Patient seen and examined with the Associate Provider. I have reviewed and agree with the history, physical, and assessment and plan. Pertinent Exam Findings/Procedure Performed/Imaging Reviewed On exam, she has fullness in the left submandibular gland. Currently there is good saliva flow fromthe duct and no evidence of stone. Normal [...] Procedure Name Priority Date/Time Associated Diagnosis Comments EXCISION SUBMANDIBULAR(SUBMAXILL LAKSHMI) GLAND, GARY Routine 01/04/2017 9:13 AM EDT Sialadenitis documented in this encounter Visit Diagnoses Diagnosis Sialadenitis Sialoadenitis Sialolithiasis of submandibular gland Sialolithiasis documented in this encounter Care Teams Care Transition Mgr Relationship Specialty Start Date End Date Hai Gallegos MD [address] [place] [address] PCP - General 05/31/10 10/09/17 documented as of this encounter
--- OUTSIDE RECORDS SUMMARY | 2024-05-26 12:45 | XMS_ITS | Encounter Summary ---
Author Organization [facility] [place] [address] Care Team Providers Care Catering Attendant Name Role Phone Hai Gallegos MD Primary Care Provider [phone] [phone] Reason for Visit * Reason Comments Back Pain Encounter Details Date Type Department Care Team (Late st Contact Info) Description 07/15/2015 8:00 AM EST Office Visit Functional Temple Program at [address] [address] Juan Carlos Foley, PT [facility] [place] [address] Chronic low back pain Social History Tobacco Use Types Packs/Day Years Used Date Smoking Tobacco: Every Day Cigarettes Smokeless Tobacco: Never Sex and Gender Information Value Date Recorded Sex Assigned at Not on file Gender Identity Not on file Sexual Orientation Not on file documented as of this encounter Progress Notes * Juan Carlos Foley, PT - 07/15/2015 10:39 AM EST [facility] Physical Therapy Note [facility] Day 3 Protocol Subjective: Mary Beth returns today for a scheduled follow up appointment with [facility]; she reports continued low back, left thigh, left leg, and left dorsal and lateral foot pain. Left foot pain seemed to be aggravated gradually with trials of rotation in flexion lying knees left strategies as discussed at 06/14/15 pre- program visit. Discontinued those exercises after one week but then further aggravatedleft foot last week while walking in home with no specific moment of injury or fall as the cause. Objective: Treatment Received: Refer to [facility] protocol for explanation of program/physical [...] hours while awake to compliment program activity over the next two days. Plan: Return for follow up with P per protocol. Length of visit: Participated in program physical activity from 8:00 a.m. through 2:30 p.m. today. During that time, a total of 45 minutes was spent to develop, monitor, and progress individualized physical therapy strategies. Care was provided by both a physical therapist and physical therapist construction administrative assistant. Cande Wilson PTA documented in this encounter Plan of Treatment Not on file documented as of this encounter Visit Diagnoses Diagnosis Chronic low back pain Lumbago documented in this encounter Care Teams Catering Attendant Relationship Specialty Start Date End Date Hai Gallegos MD [address] [place] [address] PCP - General 05/31/10 10/09/17 documented as of this encounter
--- OUTSIDE RECORDS SUMMARY | 2024-05-26 12:45 | XMS_ITS | Encounter Summary ---
Author Organization [facility] [place] [address] Care Team Providers Care Cream Cheese Maker Name Role Phone Hai Gallegos MD Primary Care Provider [phone] [phone] Encounter Details Date Type Department Care Team (Late st Contact Info) Description 07/22/2015 9:00 AM EST Office Visit Functional Christian Program at [facility] [address] [place] [address] Medardo Lyles MD [facility] [place] [address] Chronic low back pain Social History Tobacco Use Types Packs/Day Years Used Date Smoking Tobacco: Every Day Cigarettes Smokeless Tobacco: Never Sex and Gender Information Value Date Recorded Sex Assigned at Not on file Gender Identity Not on file Sexual Orientation Not on file documented as of this encounter Progress Notes * Medardo Lyles MD - 07/22/2015 9:50 AM EST This is the goals and health barriers follow-up visit and note for continued participation in the [facility] Functional Christian [facility]. We spent 25 minutes discussing functional [...] rehab program, need to connect with her counseling case manager forfuture planning within her capacities.Left ankle sprain reviewed: no current swelling, still has ATFL tension pain. Strategies for exercise reviewed. documented in this encounter Plan of Treatment Not on file documented as of this encounter Visit Diagnoses Diagnosis Chronic low back pain Lumbago documented in this encounter Care Teams Cream Cheese Maker Relationship Specialty Start Date End Date Hai Gallegos MD [address] [place] [address] PCP - General 05/31/10 10/09/17 documented as of this encounter
--- OUTSIDE RECORDS SUMMARY | 2024-05-26 12:45 | XMS_ITS | Encounter Summary ---
Author Organization [facility] [place] [address] Care Team Providers Care Trial Justice Name Role Phone Hai Gallegos MD Primary Care Provider [phone] [phone] Reason for Visit * Reason Comments Back Pain Encounter Details Date Type Department Care Team (Late st Contact Info) Description 07/13/2015 11:45 AM EST Office Visit Functional Sikhism Program at [address] [address] Juan Carlos Foley, PT [facility] [place] [address] Chronic low back pain Social History Tobacco [...] - documented in this encounter Progress Notes * Juan Carlos Foley, PT - 07/13/2015 12:54 PM EST Functional Sikhism Program (Day 1) Physical Therapy Examination Personal Function 3 Month Goals 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 Walk at least 1 mile for daily exercise. Ride horseback. Daily Living: Shovel snow. Wash dishes, vacuum, and sweep floors without requiring breaks. The chief complaint requiring rehabilitation is low back and left lower extremity pain with sensoryloss and weakness in the left lower extremity. [...] to left foot pain standing. Flexion sitting decreased,not better. Flexion in left step standing no effect. Assessment Mary Beth Holman has significant range of motion deficits and moderate strength deficits with baseline physical testing. Treadmill testing shows poor tolerance for endurance activities. Posture and gait observations reveal some antalgic deviations. Recent mechanical self care trial aggravated left lower extremity symptoms, flexion strategies may be somewhat helpful to manage pain flare ups during the course of functional progression. [facility] Goals for Physical Therapy will focus on regaining functional status and functional goals stated above, but objectively Mary Beth will have: Normal flexibility, normal strength, improved cardiovascular fitness, the ability to self manage this pain problem, and the ability to monitor and progress an individualized HEP. Plan Mary Beth will start with [facility] for functional and restorative training. Home exercise instruction will compliment daily conditioning. See enclosed [facility] protocol for further details. Total time for testin minutes documented in this encounter Plan of Treatment Not on file documented as of this encounter Visit Diagnoses Diagnosis Chronic low back pain Lumbago documented in this encounter Care Teams Trial Justice Relationship Specialty Start Date End Date Hai Gallegos MD [address] [facility] [place] [address] PCP - General 05/31/10 10/09/17 documented as of this encounter
--- OUTSIDE RECORDS SUMMARY | 2024-05-26 12:45 | XMS_ITS | Encounter Summary ---
Author Organization Formerly [facility] [address] Care Team Providers Care Manager Operational Name Role Phone Hai Gallegos MD Primary Care Provider [phone] [phone] Reason for Visit * Reason Comments Back Pain Encounter Details Date Type Department Care Team (Late st Contact Info) Description 07/14/2015 8:00 AM EST Office Visit Functional Anabaptism Program at [address] [address] Juan Carlos Foley, PT [facility] [place] [address] Chronic low back pain Social History Tobacco Use Types Packs/Day Years Used Date Smoking Tobacco: Every Day Cigarettes Smokeless Tobacco: Never Sex and Gender Information Value Date Recorded Sex Assigned at Not on file Gender Identity Not on file Sexual Orientation Not on file documented as of this encounter Progress Notes * Juan Carlos Foley, PT - 07/14/2015 12:54 PM EST [facility] Physical Therapy Note [facility] Day 2 Protocol Subjective: Mary Beth returns today for a scheduled follow up appointment with [facility]; she reports continued left foot pain. Objective: Treatment Received: Refer to [facility] protocol for explanation of program/physical therapy details. 1. Therapeutic and Functional Exercise: See [facility] flow sheets for progression. Strengthening and conditioning designed according to personal functional recovery goals and [facility] protocol was: (x) Completed ( ) Not [...] both a physical therapist and physical therapist study assistant. Cande Wilson PTA documented in this encounter Plan of Treatment Not on file documented as of this encounter Visit Diagnoses Diagnosis Chronic low back pain Lumbago documented in this encounter Care Teams Manager Operational Relationship Specialty Start Date End Date Hai Gallegos MD [address] [place] [address] PCP - General 05/31/10 10/09/17 documented as of this encounter
--- OUTSIDE RECORDS SUMMARY | 2024-05-26 12:45 | XMS_ITS | Encounter Summary ---
Author Organization [facility] [place] [address] Care Team Providers Care Elephant Tamer Name Role Phone Hai Gallegos MD Primary Care Provider [phone] [phone] Reason for Visit * Reason Onset Date Comments Other 05/31/2015 Encounter Details Date Type Department Care Team (Late st Contact Info) Description 05/31/2015 Telephone [place] [id number] Emiliana Botello [facility] [place] [address] Other Social History Tobacco Use Types Packs/Day [...] will need to defer until July Functional Mandaeism program. I have wished her well and requested densitometer reader to have her in for interim PT/OT visit to clarify goals and/or home program. In the meantime update to wc banking pin adjuster Anna Mike at ph [phone]/ fax [phone] regarding Ms. Holman's claim# [id number]. PLAN: 1) monitor for July 2015 FRP documented in this encounter Plan of Treatment Not on file documented as of this encounter Visit Diagnoses Not on filedocumented in this encounter Care Teams Elephant Tamer Relationship Specialty Start Date End Date Hai Gallegos MD [address] [place] [address] PCP - General 05/31/10 10/09/17 documented as of this encounter
--- OUTSIDE RECORDS SUMMARY | 2024-05-26 12:45 | XMS_ITS | Encounter Summary ---
Author Organization [facility] [place] [address] Care Team Providers Care Ichthyology Teacher Name Role Phone Hai Gallegos MD Primary Care Provider [phone] [phone] Reason for Visit * Reason Comments Low Back Pain Encounter Details Date Type Department Care Team (Late st Contact Info) Description 07/19/2015 9:00 AM EST Office Visit Functional Synagogue Program at [address] [address] Skylar Funes, OT Chronic low back pain Social History Tobacco Use Types Packs/Day Years Used Date Smoking Tobacco: Every Day Cigarettes Smokeless Tobacco: Never Sex and Gender Information Value Date Recorded Sex Assigned at Not on file Gender Identity Not on file Sexual Orientation Not on file documented as of this encounter Progress Notes * Skylar Funes OT - 07/19/2015 7:52 AM EST [facility] Occupational Therapy Note [facility] Day 5 Protocol Subjective: Ms. Holman returns today for a scheduled follow up appointment with [facility]. She reports feeling better after being out sick on Sunday. She also reports that the straight leg lifting and pegboard are still difficult for her and that her right foot is still bothering her. Objective: Refer to [facility] protocol for details and explanation of each activity. Ms. Holman participated in the following activities: Functional Therapy: 1. AM Session of functional conditioning ( X ) Completed ( ) Not Completed 2. PM Session of functional conditioning ( X ) Completed ( ) Not Completed Individualized Treatment: Increased resistance levels of functional conditioning exercises according to personal recovery goals. Met to further discuss [...] provided by both an Occupational Therapist and Shuttleless Loom Weaver, BRONWYN Ortega documented in this encounter Plan of Treatment Not on file documented as of this encounter Visit Diagnoses Diagnosis Chronic low back pain Lumbago documented in this encounter Care Teams Ichthyology Teacher Relationship Specialty Start Date End Date Hai Gallegos MD [address] [place] [address] PCP - General 05/31/10 10/09/17 documented as of this encounter
--- OUTSIDE RECORDS SUMMARY | 2024-05-26 12:45 | XMS_ITS | Encounter Summary ---
Author Organization [facility] Address [address] [place] [address] Care Team Providers Care Director Wholesale Name Role Phone Hai Gallegos MD Primary Care Provider Unav ailable Encounter Details Date Type Department Care Team (Late st Contact Info) Description 11/19/2020 Lab Requisition [facility] Pathology & Laboratory Medicine - [address] [address] Outr Resulting Lab, Provider Social History Tobacco Use Types Packs/Day Years Used Date Smoking Tobacco: Never Assessed Interpersonal Safety Answer Date Record ed Physically Hurt Never 02/08/2020 Verbally Threaten Not on file 02/08/2020 Comments Unknown Sex and Gender Information Value Date Recorded Sex Assigned at Not on file Legal Sex Female 17:54 EST Gender Identity Not on file Sexual Orientation Not on file documented as of this encounter Plan of Treatment Not on file documented as of this encounter Procedures Procedure Name Priority Date/Time Associated Diagnosis Comments LYME AB Routine 11/19/2020 11:34 EDT documented in this encounter Results * LYME AB (11/19/2020 11:34 EDT) Lyme Ab Negative Negative 11/22/2020 12:00 EDT [facility] Comment:New 3rd generation a ssay in use 12/17/2019 Blood VENOUS BLOOD / Unknown 11/19/2020 11:34 EDT 11/19/2020 15:59 EDT us Provider Outr Resulting Lab IMMUNOLOGY AND SEROL OGY ORDERABLES Final Result [facility] [address] [place] [address] documented in this encounter Visit Diagnoses Not on filedocumented in this encounter Care Teams Director Wholesale Relationship Specialty Start Date End Date Hai Gallegos MD PCP - General 08/12/10 documented as of this encounter
--- OUTSIDE RECORDS SUMMARY | 2024-05-26 12:45 | XMS_ITS | Encounter Summary ---
Author Organization [facility] [place] [address] Care Team Providers Care Working Second Hand Name Role Phone Hai Gallegos MD Primary Care Provider [phone] [phone] Reason for Visit * Reason Comments Back Pain Encounter Details Date Type Department Care Team (Late st Contact Info) Description 07/22/2015 8:00 AM EST Office Visit Functional Druze Program at [address] [address] Juan Carlos Foley, PT [facility] [place] [address] Chronic low back pain Social History Tobacco Use Types Packs/Day Years Used Date Smoking Tobacco: Every Day Cigarettes Smokeless Tobacco: Never Sex and Gender Information Value Date Recorded Sex Assigned at Not on file Gender Identity Not on file Sexual Orientation Not on file documented as of this encounter Progress Notes * Juan Carlos Foley, PT - 07/22/2015 8:15 AM EST [facility] Physical Therapy Note [facility] Day 8 Protocol Subjective: Mary Beth returns today for a scheduled follow up appointment with [facility]; she reports flexionlying and extension standing strategies are both helpful. Objective: Treatment Received: Refer to [facility] protocol for explanation of program/physical therapy details. 1. Therapeutic and Functional Exercise: See [facility] flow sheets for progression. Strengthening and conditioning designed according to personal functional recovery goals and [facility] protocol was: (x) Completed ( [...] a physical therapist and physical therapist medical assistant per diem. Cande Wilson PTA documented in this encounter Plan of Treatment Not on file documented as of this encounter Visit Diagnoses Diagnosis Chronic low back pain Lumbago documented in this encounter Care Teams Working Second Hand Relationship Specialty Start Date End Date Hai Gallegos MD [address] [facility] [place] [address] PCP - General 05/31/10 10/09/17 documented as of this encounter
--- OUTSIDE RECORDS SUMMARY | 2024-05-26 12:45 | XMS_ITS | Encounter Summary ---
Author Organization [facility] [place] [address] Care Team Providers Care Lead Auditor Name Role Phone Hai Gallegos MD Primary Care Provider +1 [phone] Reason for Visit * Reason Comments Back Pain Encounter Details Date Type Department Care Team (Late st Contact Info) Description 07/29/2015 8:00 AM EST Office Visit Functional Orthodoxy Program at [address] [address] Juan Carlos Foley, PT [facility] [place] [address] Chronic low back pain Social History Tobacco Use Types Packs/Day Years Used Date Smoking Tobacco: Every Day Cigarettes Smokeless Tobacco: Never Sex and Gender Information Value Date Recorded Sex Assigned at Not on file Gender Identity Not on file Sexual Orientation Not on file documented as of this encounter Progress Notes * Juan Carlos Foley, PT - 07/29/2015 9:23 AM EST [facility] Physical Therapy Note [facility] Day 13 Protocol Subjective: Mary Beth returns today for a scheduled follow up appointment with [facility] and reports current functional tolerances as listed below. Treatment Received: Refer to [facility] protocol for explanation of program/physical therapy details. 1. Therapeutic and Functional Exercise: See [facility] flow sheets for progression. Strengthening and conditioning designed according to personal functional recovery goals and [facility] protocol was only partially completed as Mary Beth needed to leave early [...] 3 Month Follow-Up?? Treadmill Endurance (MET level/HR)?? 3/67?7/138 ? Reason for stop point?? Left foot pain?Low back pain ? Self-care exercise program i) Relapse prevention: Walking, stretching, relaxation techniques. ii) Increasing physical capacities: Home lifting program. Plan: Return for follow up with [facility]P per protocol. Length of visit: Participated in program physical activity from 8:00 a.m. through 10:00 a.m. today.During that time, 30 minutes were spent to re-test physical performance measures. Care was provided by both a physical therapist and physical therapist records assistant. Cande Wilson PTA documented in this encounter Plan of Treatment Not on file documented as of this encounter Visit Diagnoses Diagnosis Chronic low back pain Lumbago documented in this encounter Care Teams Lead Auditor Relationship Specialty Start Date End Date Hai Gallegos MD [address] [place] [address] PCP - General 05/31/10 10/09/17 documented as of this encounter
--- OUTSIDE RECORDS SUMMARY | 2024-05-26 12:45 | XMS_ITS | Encounter Summary ---
[place] [address] Care Team Providers Care Marketing Finance Specialist Name Role Phone Hai Gallegos MD Primary Care Provider +1 -[phone] Reason for Referral * Rehabilitation (Routine) - Closed Specialty Diagnoses / Procedures Referred By Contjeana t Referred To Contact Orthopaedics Diagnoses Chronic back pain Regulo Cantu MD [facility] [place] [address] [facility] [address] [address] [place] [address] Referral ID Status Reason Start Date Expiration Date V isits Requested Visits Authorized [id number] Closed Consult, Test & Treat 01/27/2015 01/27/2016 1 1 Reason for Visit * Reason Onset Date Comments Medication Refill 01/27/2015 Encounter Details Date Type Department Care Team (Late st Contact Info) Description 01/27/2015 [place] [phone] Regulo Cantu MD [facility] [place] [address] Chronic back pain Social History Tobacco Use Types Packs/Day Years Used Date Smoking Tobacco: Never Assessed Sex and Gender Information Value Date Recorded Sex Assigned at Not on file Gender Identity Not on file Sexual Orientation Not on file documented as of this encounter Plan of Treatment Scheduled Referrals Name Type Priority Associated Diagnoses Order Schedule Referral to GAP Assessment Outpatient Referral Routine Chronic back pain Ordered: 01/27/2015 documented as of this encounter Visit Diagnoses Diagnosis Chronic back pain Backache, unspecified documented in this encounter Care Teams Marketing Finance Specialist Relationship Specialty Start Date End Date Hai Gallegos MD [address] [place] [address] PCP - General 05/31/10 10/09/17 documented as of this encounter
--- OUTSIDE RECORDS SUMMARY | 2024-05-26 12:45 | XMS_ITS | Encounter Summary ---
Author Organization [facility] [place] [address] Care Team Providers Care Career Development Coordinator Name Role Phone Hai Gallegos MD Primary Care Provider +1 -[phone] Reason for Visit * Reason Onset Date Comments Other 05/20/2015 Encounter Details Date Type Department Care Team (Late st Contact Info) Description 05/20/2015 Tele[place] [phone] Emiliana Botelol BEEF PLUCK TRIMMER [facility] [place] [address] Other Social History Tobacco Use Types Packs/Day [...] CARE MANAGEMENT CCM Follow up call to clerical adjuster group supervisor yard Anna Mike at [phone]/ fax [phone] regarding Ms. Holman's claim# [id number] and her plan to send out updated medicals and order for Functional Sikh Program to [facility] that had previously put Ms. Holman at [facility]. Requested return call and response regarding that plan so as to discuss Ms. Crows treatment options with her. Update to patient and healthcare team pending return call. Monitor for FRP approval. documented in this encounter Plan of Treatment Not on file documented as of this encounter Visit Diagnoses Not on filedocumented in this encounter Care Teams Career Development Coordinator Relationship Specialty Start Date End Date Hai Gallegos MD [address] [place] [address] PCP - General 05/31/10 10/09/17 documented as of this encounter
--- OUTSIDE RECORDS SUMMARY | 2024-05-26 12:45 | XMS_ITS | Encounter Summary ---
Author Organization [facility] [place] [address] Care Team Providers Care Health Counselor Name Role Phone Hai Gallegos MD Primary Care Provider +1 -[phone] Encounter Details Date Type Department Care Team (Late st Contact Info) Description 01/15/2017 Telephone [place] [phone] Salty Butler MD [facility] [place] [address] Social History Tobacco Use Types Packs/Day Years [...] encounter Miscellaneous Notes * Telephone Encounter - Natasha Pineda T - 01/17/2017 7:38 AM EDT Images from the original note were not included. left message requesting Ms. Holman to return call to change surgery arrangements due to Dr. Butler will not be available as planned. From: Salty Butler Sent: Sunday, January 15, 2017 4:09 PM To: Ariel Roberson < >; Natasha Pineda <[email or web address]> Subject: 02/02 OR Unlike my other OR days, I actually want this to be a short day as I am leaving by around 1 PM. That said: Estephanie Lazar Female, 59 y.o., 01/18/1957 Sorry, when I booked this patient, I wanted to wait about 3-4 weeks. Can you reschedule for the of February. Thanks RiverJohnbridget Quigley Female, 56 y.o., 1960 Can we move her to 01/23 Thanks and sorry for the inconvenience. Salty Butler MD FACS digital camera technician - Otolaryngology Chief, Division of Otolaryngology - Head & Neck Surgery [address] [address] (o)/[phone] (f) [email or web address] * Telephone Encounter - Natasha Pineda - 01/15/2017 10:21 AM EDT Mr. Holman returned call leaving message explaining she would not be able do have surgery tomorrowdue to work coverage. * Telephone Encounter - Natasha Pineda - 01/15/2017 9:54 AM EDT spoke with Mary Beth offering for her to have surgery sooner; .01/16/17 tomorrow. She is checking with her boss, and will return a call letting me know. documented in this encounter Plan of Treatment Not on file documented as of this encounter Visit Diagnoses Not on filedocumented in this encounter Care Teams Health Counselor Relationship Specialty Start Date End Date Hai Gallegos MD [address] [place] [address] PCP - General 05/31/10 10/09/17 documented as of this encounter
--- OUTSIDE RECORDS SUMMARY | 2024-05-26 12:45 | XMS_ITS | Encounter Summary ---
Author Organization [facility] Address [address] [place] [address] Care Team Providers Care Carpenter Packing Name Role Phone Hai Gallegos MD Primary Care Provider Unav ailable Encounter Details Date Type Department Care Team (Late st Contact Info) Description 03/15/[address] [facility] Laboratory Services - [facility] [address] [place], [place] [id number] Juve Dawkins MD [address] [place] [address] Social History Tobacco Use Types Packs/Day Years [...] Procedure Name Priority Date/Time Associated Diagnosis Comments PAP TEST- RESULT ONLY Routine 03/15/2012 0:00 EDT documented in this encounter Results * PAP TEST- RESULT ONLY (03/15/2012 0:00 EDT) Pathology Report: CYTOPATHOLOGY REPORT Reports generated via electronic interface contain original data; however they are lacking the format of the original report. Caution should be taken when reading/interpreti ng unformatted reports. Name: ? MARY BETH ANTUNEZ ? Accession #: ? [id number] : ? 1960 (Age: 51) ??F ?Collect Date: ? 03/15/2012 Location: ? [facility] ? Receive Date: ? 03/19/2012 Provider: ?JUVE DAWKINS MD Copy to: ? Specimen/Source: ?Pap Test, Cervix/Endocervix, ThinPrep Imaging System with manual evaluation Last Menstrual Period: ? Stenotic ? SPECIMEN ADEQUACY ? Satisfactory for Evaluation - transformation zone component absent GENERAL CATEGORIZATION ? Negative for Intraepithelial Lesion or Malignancy ? Document reviewed and electronically signed by: ? DARIUSZ Mancera(ASCP) ? Report Date: ??03/20/2012 16:20 End of Report ED [facility] 03/15/2012 03/19/2012 us Juve Dawkins MD PATHOLOGY ORDERABLES Final Resu lt ED [facility] [address] [place] [address] documented in this encounter Visit Diagnoses Not on filedocumented in this encounter Care Teams Carpenter Packing Relationship Specialty Start Date End Date Hai Gallegos MD PCP - General 08/12/10 documented as of this encounter
--- OUTSIDE RECORDS SUMMARY | 2024-05-26 12:45 | XMS_ITS | Encounter Summary ---
[place] [address] Care Team Providers Care Patrol Driver Name Role Phone Hai Gallegos MD Primary Care Provider +1 -[phone] Encounter Details Date Type Department Care Team (Late st Contact Info) Description 07/30/2015 10:30 AM EST Office Visit Functional Zoroastrianism Program at [address] [address] Medardo Lyles MD [facility] [place] [address] Chronic low back pain Social History Tobacco Use Types Packs/Day Years Used Date Smoking Tobacco: Every Day Cigarettes Smokeless Tobacco: Never Sex and Gender Information Value Date Recorded Sex Assigned at Not on file Gender Identity Not on file Sexual Orientation Not on file documented as of this encounter Progress Notes * Medardo Lyles MD - 07/30/2015 8:08 AM [place] [address] Functional Zoroastrianism Program Discharge Summary Ms. Mary Beth Holman [id number] 07/30/2015 Cande Yarbrough, am compiling the information for Dr. Lyles to discuss and review with the patient. Ms. Holman attended the Functional Zoroastrianism Program (FRP) from July 13 to July 30, 2015. The FRP combines progressive physical training, pain and disability education, behavioral medicineand vocational/activity planning geared toward achieving personal functional goals. I met with Ms. Holman for 30 minutes today to discuss her discharge and progress in the Functional Zoroastrianism Program as written in this note. We discussed medical progress, imaging, surgical decision making, current pain and functional status, compared that status to personal recovery goals and established the plan of care accordingly as below. Ms. Holman attended the [...] 30/115? Carry -2 Handed 50 ft? 15? Work Demand Level? Sedentary- Light? Light ? Functional Goals: Functional Goals at Beginning of FRP? Current Status of Goals? 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 Be able to stand 30 minutesto wash dishes; be able to clean bathroom, vacuum, mop and sweep floors without requiring breaks; be able to clean house in one day. ? Was able to shovel a path for dog outside, about 6' x 2'; hasnot had the opportunity to try other activities yet; has been able to stand for 30 continuous minutes during program activities? NOTE: Discharge Plan Self-care exercise program ?i) Relapse prevention:?? Walking, stretching, relaxation techniques.?ii) Increasing physical capacities:?? Home lifting program.? 1. Counseling: To resume counseling 2. Vocational planning a) Anticipated work readiness date: 08/02/15 i) with restriction: See [place] Worker's Compensation Form 3. Follow-up a) Primary Care: HAI GALLEGOS MD b) Spine Center i) Post-program date: 08/04/2015. Please plan to arrive at [facility] for your appointment with Cande Wilson PTA, at 10:00. ii) 4-week follow-up date: 09/09/2015. Please plan to arrive at the Spine Center () for your appointment with Juan Carlos Foley PT, at 1:00. iii) MD/MANAGER NUCLEAR visit date: 09/09/2015 at 2:00 v) Please plan for a 1-year survey follow-up. c) Medication Management: HAI GALLEGOS MD I, Medardo Lyles, have reviewed the above compiled information and agree with its accuracy. I spent the the entire 25 minutes with the patient discussing progress, goals and plans as documented in this note. cc: Mary Beth Holman [address] [facility] [address] HAI GALLEGOS MD [address] [place] [address] Ms. Susan Rhodes VRS Disability Management Anna Mike claim# [id number] fax [phone] regarding documented in this encounter Plan of Treatment Not on file documented as of this encounter Visit Diagnoses Diagnosis Chronic low back pain Lumbago documented in this encounter Care Teams Patrol Driver Relationship Specialty Start Date End Date Hai Gallegos MD [address] [place] [address] PCP - General 05/31/10 10/09/17 documented as of this encounter
--- OUTSIDE RECORDS SUMMARY | 2024-05-26 12:45 | XMS_ITS | Encounter Summary ---
Author Organization [facility] Address [address] [place] [address] Care Team Providers Care Management Information Systems Director Name Role Phone Hai Gallegos MD Primary Care Provider Unav ailable Encounter Details Date Type Department Care Team (Late st Contact Info) Description 03/28/2012 Results Only [facility] Laboratory Services - [facility] ([facility] [place] [address], [place] [id number] Juve Dawkins MD [address] [place] [address] Social History Tobacco Use Types Packs/Day Years [...] Date/Time Associated Diagnosis Comments SURGICAL PATHOLOGY Routine 03/28/2012 0:00 EDT documented in this encounter Results * SURGICAL PATHOLOGY (03/28/2012 0:00 EDT) Pathology Report: SURGICAL PATHOLOGY REPORT Reports generated via electronic interface contain original data; however they are lacking the format of the original report. Caution should be taken when reading/interpreti ng unformatted reports. Name: ? MARY BETH ANTUNEZ ? Accession #: ? [id number] ? : ? 1960 (Age: 51) ??F ? Collect Date: ? 03/28/2012 ? Location: ? [facility] ? Receive Date: ? 03/28/2012 ? Provider: JUVE DAWKINS MD Copy to: HAI GALLEGOS MD ? Final Pathologic Diagnosis: ? Endometrium, curettage: 1. ?Rare fragments of dissociated inactive endometrium with tubal metaplasia and extensive stromal crush artifact. ??See comment. 2. ? Benign endocervical glands and abundant fragments of mature appearing squamous epithelium. Comment: ? Deeper levels have been examined. ??(Dr. Zimmerman)/[facility] Document reviewed and electronically signed by: CHARMAINE ZIMMERMAN MD Report ??Date: 04/02/2012 16:41 By the signature above, the attending physician certifies that he/she has personally conducted a gross and/or microscopic examination of the described specimens and rendered or confirmed the above diagnosis. Specimen(s) Received: ? Endometrial curettings Clinical History: ? Postmenopausal bleeding; clinical diagnosis code: 627.1 Gross Description: ? Received in formalin labelled Mary Beth Antunez and A-endometrial curettings is a 1.2 x 0.6 x 0.1 cm aggregate of leonardo and white, focally brown, soft tissue. ??The specimen is submitted entirely in one cassette. ??(Yuriy Eugene/ra[place] End of Report ED [facility] 03/28/2012 03/28/2012 16: 12 EDT us Juve Dawkins MD PATHOLOGY ORDERABLES Final Resu lt ED [facility] [address] [place] [address] documented in this encounter Visit Diagnoses Not on filedocumented in this encounter Care Teams Management Information Systems Director Relationship Specialty Start Date End Date Hai Gallegos MD PCP - General 08/12/10 documented as of this encounter
--- OUTSIDE RECORDS SUMMARY | 2024-05-26 12:45 | XMS_ITS | Encounter Summary ---
Author Organization [facility] [place] [address] Care Team Providers Care Console Manager Name Role Phone Hai Gallegos MD Primary Care Provider [phone] [phone] Reason for Visit * Reason Onset Date Comments Other 07/29/2015 Encounter Details Date Type Department Care Team (Late st Contact Info) Description 07/29/2015 Telephone [place] [id number] Emiliana Botello MSW [facility] [place] [address] Other Social History Tobacco Use Types Packs/Day [...] 12:09 PM EST OFFICE OF CARE MANAGEMENT [facility] Exchanged messages and updates with Suasn Rhodes S Disability Management ph regarding confirmation if she was re activated for voc by elevator examiner and 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 Holman if she is the contact. Update to patient and healthcare team. documented in this encounter Plan of Treatment Not on file documented as of this encounter Visit Diagnoses Not on filedocumented in this encounter Care Teams Console Manager Relationship Specialty Start Date End Date Hai Gallegos MD [address] [place] [address] PCP - General 05/31/10 10/09/17 documented as of this encounter
--- OUTSIDE RECORDS SUMMARY | 2024-05-26 12:45 | XMS_ITS | Encounter Summary ---
Author Organization [facility] [place] [address] Care Team Providers Care Central Office Operator Supervisor Name Role Phone Hai Gallegos MD Primary Care Provider [phone] Reason for Visit * Reason Onset Date Comments Other 04/06/2015 Encounter Details Date Type Department Care Team (Late st Contact Info) Description 04/06/2015 Telephone [place] [address] Emiliana Botello [facility] [place] [address] Other Social History Tobacco Use Types Packs/Day [...] recommended and medically cleared for the Functional Temple Program. Ms. Holman would be pleased to proceed with [id number] FRP. This is a [place] wc claim (Amando Jacques ph [phone]/ fax [phone] claim# [id number]). She's had minimal interaction with Ms. Pierson. [place] [facility] [place] [facility] [place] would benefit from local lodging. PLAN: 1) confirm either verbally or if no response via [place] Request for Prior Authorization coverage in principle for FRP and local lodging. Update to patient and healthcare team pending this. Msg. Left for Ms. Pierson. documented in this encounter Plan of Treatment Not on file documented as of this encounter Visit Diagnoses Not on filedocumented in this encounter Care Teams Central Office Operator Supervisor Relationship Specialty Start Date End Date Hai Gallegos MD [address] [facility] [place] [address] PCP - General 05/31/10 10/09/17 documented as of this encounter
--- OUTSIDE RECORDS SUMMARY | 2024-05-26 12:45 | XMS_ITS | Encounter Summary ---
Author Organization [facility] [place] [address] Care Team Providers Care Mammography Tech Name Role Phone Hai Gallegos MD Primary Care Provider [phone] Reason for Visit * Reason Comments Chronic Back Pain Encounter Details Date Type Department Care Team (Late st Contact Info) Description 07/14/2015 1:00 PM EST Office Visit Functional Religion Program at [address] [address] Medardo Lyels MD [facility] [place] [address] Chronic low back pain; Chronic back pain Social History Tobacco Use Types Packs/Day Years Used Date Smoking Tobacco: Every Day Cigarettes Smokeless Tobacco: Never Sex and Gender Information Value Date Recorded Sex Assigned at Not on file Gender Identity Not on file Sexual Orientation Not on file documented as of this encounter Progress Notes * Medardo Lyles MD - 07/14/2015 7:36 AM EST [facility] Spine Center: Functional Religion Program Admission Staff Meeting 07/14/2015 I met with Ms. Holman for the entire 30 minutes today to discuss her admission and progress in theFunctional Religion Program as written in this note. We discussed medical progress, imaging, surgical decision making, current pain and functional status, compared that status to personal recoverygoals, and established the plan of care accordingly [...] involves contact with the public, such as mortgage closing clerk or oceanographer geological; Recreational: Be able to bend and lift up to 40 lbs to manage flower and vegetable gardens. Walk atleast 1 mile for daily exercise without breaks. [...] clean house in one day. PLAN: Functional Religion Program. Cc: Mary Beth Holman [address] [facility] [address] HAI GALLEGOS MD [address] [place] [address] Anna Harman claim# [id number] fax [phone] FUNCTIONAL RELIGIOUS PROGRAM (FRP) PROTOCOL DESCRIPTION DAY 1 TESTING The first day of FRP includes testing from all departments to measure baseline values including: Visual Analog Pain Scale, FABQ, ALIS-D, PSQI, MARISSA, TYSHAWN, MCS, PCS, WASI, Eagle-Segundo, Sitting Standing& Walking tolerance, ROM in degrees, MET Level, Lifting (occasional & frequent), Push/Pull,Carry-2 handed 50 ft, DOT level. Day 1 testing includes: * Physical Therapy: Functional Assessment (PT section) * Occupational Therapy: Functional Assessment (OT section) * Touch Pad Survey * Medical Consult with MD/BOTTOM STEEP TENDER STRETCH, STRENGTH, & AEROBICS 1 hour with 2 [facility] staff members PT/OT/FEEDER OPERATOR Low impact aerobic conditioning and strengthening class that includes floor aerobics, step aerobics, yoga, pilates, macedonian ball training, strengthening and stretching. This is the first class of everyday so that patients begin the day with a warm-up of low-impact and low intensity conditioning. Thegoal of the class is to introduce and encourage different types of cardiovascular conditioning and strengthening. STRENGTHENING & CARDIOVASCULAR EXERCISE 1 hour with 2-3 [facility] staff members PT/FEEDER OPERATOR The physical therapy staff instructs, modifies, and supervises upper extremity, lower extremity, and core strengthening exercises focused on regaining total body fitness. These exercises are completed by all patients and include free weights, weight machines, general upper and lower extremity exercise, and specific spinal flexor and extensor strengthening. Available dumbbells include 1-50 lbs. The exercises are listed in the training record and [...] activity to be completed in 1-4 sessions. [facility] patients seldom have the conditioning to complete 15 minutes of one activity at a sufficient intensity to provoke a cardiovascular training response. Therefore, [facility] utilizes multiple sessions to reach cardiovascular goals. Multiple types of cardiovascular equipment will be used which include: stationary bike, upper extremity bike ergometer (UBE), treadmill, stair master, sci fit, and stairwells. Exercise grades, intensity, and times are monitored and recorded. Perceived exertion or heart rate may also be used to rate exercise intensity. Intensity, incline, speed, and/or time will beincreased daily. However, walking speed will be initially [...] by patients during their time away from [facility] (weekends, off days)and ultimately for after program completion. Home exercise programs will be reviewed and revised so that by the end of the program the patient has a progressed individualized therapeutic exercise self management plan. The goal of the physical therapy homeprogram is to teach and encourage the patient to continue exercise for continued functional recovery and pain relief. Throughout the month of treatment the patients are educated regarding exercise decision making withthe goal that by the end of the [...] patient. FUNCTIONAL CONDITIONING 1 hour with 3 [facility] staff members OT/PT/FEEDER OPERATOR Work Conditioning: Involves progressive and graded activities [...] control. Sessions are designed to increase work capacity goals through both strengthening and exposure to the level identified in the Occupational Therapyinitial note. INDIVIDUAL TIME 15-30 minutes of individual treatment time with the OT, PT, and Care Management. These visits occurduring the relaxation training group therapy sessions. MEDICAL APPOINTMENT (Meeting with MD/BOTTOM STEEP TENDER) 25 minute individual clinic visit with program directors to discuss program and individuals status,goals, and plan. MEETING WITH MD AND STAFF (Staffing Meeting) 15-25 minute individual clinic visit with channel marketing program manager and medical staff to discuss individualsstatus, progress, goals, and plan. WALK & STRETCH 1 hour with 1-2 [facility] staff members PT/OT/FEEDER OPERATOR Patients will walk for 30 minutes on flat terrain with minimal inclines to begin their afternoon warm-up. They are encouraged to increase their speed, and therefore heart rate, each day at their own pace to ultimately increase their walking tolerance. After the walk the patients participate in a 30minute relaxation and/or stretching class. The relaxation class emphasizes breathing, progressive muscle relaxation, activity pacing, and meditation techniques to help teach self control over pain. The stretching class also includes relaxation techniques with stretching. MEDICAL LECTURES All lectures are 1 hour and led by [facility] staff MD/DAISY/TRANSCRIBING OPERATOR HEAD/PT/OT Lectures are designed to educate, motivate, and empower the patients to self manage their pain and accompanying medical co-morbidities. FUNCTIONAL RELIGIOUS This one hour lecture began with a [...] diagnosis was discussed. The development of Functional Religion was reviewed, including the critical role of goal setting and quota-based physical training toward each individual???s personal functional goal. GOAL SETTING This is a one hour lecture and interactive group session. Individuals??? responses to their initialgoal setting questionnaires are discussed with special attention to the diversity of their pain andfunctional goals and priorities. The complex relationship between pain and function is discussed inthe context of underlying beliefs and expectations and [...] common types of disability; Workers Compensation, Short term/Wheel Alignment Technician Disability, Social Security Disability, Tort/Liability, [place], and Medicaid. During the course of the lecture patients are encouraged to share their concerns and questions as well as to elicit and dispel any myths, beliefs or assumptions they, their families, or others may have had about these resources. Further exploration of the often ensuing disappointments many patientshave when recognizing the limitations of the types [...] faced by patients as they end Functional Religion and come to plateau. Patients who are [...] your obligations, vocational rehabilitation, resume and cover letterwriting, application process and writing. There is also an extensive discussion of the Americans with Disabilites Act. ACUTE PAIN MANAGEMENT This one hour lecture begins with a review of the ACUTE PAIN WORKSHEETS completed by the patients on the day of admission to the [facility]. There is an in depth discussion [...] flare-up. UNGUARDED ACTIVITIES 30 minutes with 2 [facility] staff members FEEDER OPERATOR/OT/PT * Ball games are utilized to encouraged to encourage spontaneous or quick movements. Games played for 15 minutes. The goal of unguarded activity is to increase cardiovascular fitness, strength, endurance and flexibility and to encourages spontaneous movements. FUNCTIONAL RELIGIOUS PROGRAM (FRP) DAILY PROTOCOL OVERVIEW: [facility] consists of 14 days of interdisciplinary treatment and patients are approximately in the clinic each day from 8 am to 3 pm. Individual meeting times with PT, OT, and Care Management occur at multiple points during the [facility] Functional Religion Week 1 Protocol Day 1 Day 1 Testing (4 hours) Orientation (1 hour) Group Testing (30 minutes) MD/BOTTOM STEEP TENDER evaluation (45 Minutes) Functional Religion Week 1 Protocol Day 2 Stretch, Strengthening and Aerobics Class (1 hour) Strengthening and Cardiovascular Exercise (1 hour) Functional Conditioning (2hours) Meeting with MD (25 minutes) Walk and Stretch Class (1 hour) Relaxation Training and Unguarded Activity (1 hour) Functional Religion Week 1 Protocol Day 3 Stretch, Strengthening and Aerobics Class (1 hour) Strengthening and Cardiovascular Exercise (1 hour) Functional Conditioning (2hours) Relaxation (30 minutes) Walk and Stretch Class (1 hour) Functional Religion Lecture (1 hour) Functional Religion Week 1 Protocol Day 4 Stretch, Strengthening and Aerobics Class (1 hour) Strengthening and Cardiovascular Exercise (1 hour) Functional Conditioning (2hours) Walk and Stretch Class (1 hour) Relaxation (30 Minutes) Goal Setting Lecture (1 hour) Functional Religion Week 2 Protocol Day 5 Stretch, Strengthening and Aerobics Class (1 hour) Strengthening and Cardiovascular Exercise (1 hour) Functional Conditioning (2hours) Walk and Stretch Class (1 hour) Relaxation (30 Minutes) Anatomy, Imaging, Surgical Decision Making Lecture (1 hour) Functional Religion Week 2 Protocol Day 6 Stretch, Strengthening and Aerobics Class (1 hour) Strengthening and Cardiovascular Exercise (1 hour) Functional Conditioning (2 hours) Walk and Stretch Class (1 hour) Relaxation (30 Minutes) Workers Compensation Insurance Lecture (1 hour) Functional Religion Week 2 Protocol Day 7 Stretch, Strengthening and Aerobics Class (1 hour) Randolph testing (1 hour) Strengthening and Cardiovascular Exercise (1 hour) Functional Conditioning (1hour) Relaxation (30 Minutes) Walk and Unguarded Activity (1 hour) Relaxation Lecture (1 hour) Functional Religion Week 2 Protocol Day 8 Stretch, Strengthening and Aerobics Class (1 hour) Strengthening and Cardiovascular Exercise (1 hour) Functional Conditioning (2 hours) Relaxation (30 minutes) Walk and Stretch Class (1 hour) Medications Lecture (1 hour) Functional Religion Week 2 Protocol Day 9 Stretch, Strengthening and Aerobics Class (1 hour) Strengthening and Cardiovascular Exercise (1 hour) Functional Conditioning (2 hours) Relaxation (30 minutes) Walk and unguarded activity (1 hour) Functional Religion Week 3 Protocol Day 10 Stretch, Strengthening and Aerobics Class (1 hour) Strengthening and Cardiovascular Exercise (1 hour) Functional Conditioning (2 hours) Relaxation ( 30 minutes) Walk and Stretch class (1 hour) Job Hunting lecture(1 hour) Functional Religion Week 3 Protocol Day 11 Stretch, strengthening and aerobics class (1 hour) Strengthening and Cardiovascular Exercise (1 hour) Functional Conditioning (2hours) Relaxation (30 Minutes) Walk and Stretch Class (1 hour) Acute Pain Management lecture (1 hour) Functional Religion Week 3 Protocol Day 12 Stretch, strengthening and aerobics class (1 hour) Strengthening and Cardiovascular Exercise (1 hour) Functional Conditioning (2hours) Walk and unguarded activity (1 hour) Relaxation (30 Minutes) Re-entry lecture (1 hour) Functional Religion Week 3 Protocol Day 13 Day 13 Testing (2 hours) Stretch, Strengthening, Aerobics class (1 hour) Strengthening and Cardiovascular Exercise (1 hour) Functional Conditioning (1 hour) Relaxation (30 minutes) Walk and Stretch Class (1 hour) Functional Religion Week 3 Protocol Day 14 Stretch, Strengthening and Aerobics Class (1 hour) Strengthening and Functional Conditioning (1hour) Program Evaluation (1 hour) Individual Meeting with MD/BOTTOM STEEP TENDER and staff (25 minutes) Graduation and Final D/C information (30 minutes) documented in this encounter Plan of Treatment Not on file documented as of this encounter Visit Diagnoses Diagnosis Chronic low back pain Lumbago Chronic back pain Backache, unspecified documented in this encounter Care Teams Mammography Tech Relationship Specialty Start Date End Date Hai Gallegos MD [address] [place] [address] PCP - General 05/31/10 10/09/17 documented as of this encounter
--- OUTSIDE RECORDS SUMMARY | 2024-05-26 12:45 | XMS_ITS | Referral Summary ---
Author Organization [facility] Address [address] [place] [address] Care Team Providers Care Babcock Tester Name Role Phone Hai Gallegos MD Primary Care Provider Unav ailable Social History Tobacco Use Types Packs/Day Years Used Date Smoking Tobacco: Never Assessed Interpersonal Safety Answer Date Record ed Physically Hurt Never 02/08/2020 Verbally Threaten Not on file 02/08/2020 Comments Unknown Sex and Gender Information Value Date Recorded Sex Assigned at Not on file Legal Sex Female 17:54 EST Gender Identity Not on file Sexual Orientation Not on file Plan of Treatment Not on file Insurance MEDICAID [place]CO [place] Care Teams Babcock Tester Relationship Specialty Start Date End Date Hai Gallegos MD PCP - General 08/12/10
--- OUTSIDE RECORDS SUMMARY | 2024-05-26 12:45 | XMS_ITS | Encounter Summary ---
[place] [address] Care Team Providers Care Coutierier Name Role Phone Hai Gallegos MD Primary Care Provider [phone] Reason for Referral * Diagnostic Test (Routine) - Closed Specialty Diagnoses / Procedures Referred By Contac t Referred To Contact Orthopaedics Diagnoses Chronic back pain Eleanor Lancaster APRN [facility] [place] [address] [facility] [place] [address] [place] [address] Referral ID Status Reason Start Date Expiration Date V isits Requested Visits Authorized [id number] Closed Consult, Test & Treat 04/06/2015 04/05/2016 1 1 Reason for Visit * Reason Comments Low Back Pain Left Leg Pain Encounter Details Date Type Department Care Team (Late st Contact Info) Description 04/06/2015 3:00 PM EDT [place] [address] Eleanor Lancaster DELIVERY ENGINEER [facility] [place] [address] Chronic back pain Social History Tobacco Use [...] documented in this encounter Progress Notes * Jorge Lancasterashley Hoffman, DELIVERY ENGINEER - 04/06/2015 3:30 PM EDT Chief complaint requiring rehabilitation: Chronic low back pain there is also some left lower extremity pain. 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 Walk at least 1 mile for daily exercise. Ride horseback. Daily Living: Shovel snow. Wash dishes, vacuum, and sweep floors without requiring breaks. O: Please see Mr. Sheppard's note of today for details of the physical testing and current functional Level. In general the patients current level of functioning is in the sedentary to light demand level and goals are in the light to medium demand level. I did her physical exam today which reveals normal strength, sensation, reflexes. She can walk on heels and toes without any difficulty and she can single leg heel raise. She has limited flexibility.She has pain with straight leg raising but in her back on her leg. I reviewed the report of her MRI unfortunately the images were not here to review but the report states that she has facet arthropathy at L4-5 and L5-S1 without evidence of stenosis. A: There is a gap between Her goals and abilities.This was a counseling visit for 25 minutes out [id number] about symptom and functional recovery, reviewing the content of FRP, and logistics specific to participation including, travel, lodging and exercise and activity planning . We have mutually decided to proceed withthe following plan. P: Mary Beth is a candidate for functional zoroastrianism. We've reviewed signs and symptoms of increasingsciatica. If she is going to be out and not come to [facility] until after May I would certainly wantto see her back before then. She is advised to call us if she has any increasing symptoms in the meantime. She also is going to meet with Elmickie will speak to her about logistics such as transportation, housing, and how she'll have her care of her mother arranged.. documented in this encounter Plan of Treatment Scheduled Referrals Name Type Priority Associated Diagnoses Order Schedule Referral to GAP Assessment Outpatient Referral Routine Chronic back pain Ordered: 04/06/2015 documented as of this encounter Visit Diagnoses Diagnosis Chronic back pain Backache, unspecified documented in this encounter Care Teams Coutierier Relationship Specialty Start Date End Date Hai Gallegos MD [address] [facility] [address] PCP - General 05/31/10 10/09/17 documented as of this encounter
--- OUTSIDE RECORDS SUMMARY | 2024-05-26 12:45 | XMS_ITS | Encounter Summary ---
Author Organization [facility] [place] [address] Care Team Providers Care Channel Worker Name Role Phone Hai Gallegos MD Primary Care Provider +1 [phone] Reason for Visit * Reason Onset Date Comments Other 05/25/2015 Encounter Details Date Type Department Care Team (Late st Contact Info) Description 05/25/2015 Telephone [place] [phone] Emiliana Botello [facility] [place] [address] Other Social History Tobacco Use Types Packs/Day [...] OF CARE MANAGEMENT CCM Reply from insurance adjuster Anna Mike at ph [phone]/ fax [phone] regarding Ms. Holman'sclaim# [id number] that she and [facility] doctor are agreeable to FRP and local lodging. She knows tocoordinate local lodging and email list is sent to her [email or web address]. 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 Voc was discontinued as Ms. Holman was not engaged during the summer. Could reconsider pending progress with treatment. PLAN: 1) Jun.08-2014 FRP with local lodging documented in this encounter Plan of Treatment Not on file documented as of this encounter Visit Diagnoses Not on filedocumented in this encounter Care Teams Channel Worker Relationship Specialty Start Date End Date Hai Gallegos MD [address] [place] [address] PCP - General 05/31/10 10/09/17 documented as of this encounter
--- OUTSIDE RECORDS SUMMARY | 2024-05-26 12:45 | XMS_ITS | Encounter Summary ---
Author Organization [facility] Address [address] [place] [address] Care Team Providers Care Hearings Reporter Name Role Phone Hai Gallegos MD Primary Care Provider Unav ailable Encounter Details Date Type Department Care Team (Late st Contact Info) Description 02/22/2016 Results Only [facility] [phone] Brooklyn Barker, SAP BPC ARCHITECT [address] [place] [address] Social History Tobacco Use Types [...] Diagnosis Comments PAP TEST- RESULT ONLY Routine 02/22/2016 0:00 EDT documented in this encounter Results * PAP TEST- RESULT ONLY (02/22/2016 0:00 EDT) Pathology Report: CYTOPATHOLOGY REPORT Reports generated via electronic interface contain original data; however they are lacking the format of the original report. Caution should be taken when reading/interpreti ng unformatted reports. Name: ? MARY BETH ANTUNEZ ? Accession #: ? [id number] ? : ? 1960 (Age: 55) ??F ?Collect Date: ? 02/22/2016 ? Location: ? [facility] ? Receive Date: ? 02/23/2016 ? Provider: BROOKLYN BARKER SAP BPC ARCHITECT Copy to: ? Final Report SPECIMEN ADEQUACY ? Satisfactory for Evaluation - transformation zone component absent GENERAL CATEGORIZATION ? Negative for Intraepithelial Lesion or Malignancy ?? Other: Additional clinical information: 6 to 7 years ??last pap Specimen/Source: ??Pap Test, Endocervix, ThinPrep Imaging System with manual evaluation Document reviewed and electronically signed by: ? Abdulaziz Tay, CT(ASCP) ? Report ??Date: 02/28/2016 14:46 HPV with Pap Test ? Date Ordered: ? 02/28/2016 ? Status: ?? Signed Out ?Date Complete: ? 02/29/2016 ? By: ??System Interface ? Date Reported: ? 02/29/2016 ? Interpretation RESULT: Negative for HPV. No E6 or E7 mRNA is detected from HPV types 16,18,31,33,35, 39,45,51,52,56,58, 59,66, and 68 by senior mechanical project manager mediated amplification. Comments Document reviewed and electronically signed by: ? System Interface ? Report date: 02/29/2016 By the signature above, the attending physician certifies that he/she has personally conducted a gross and/or microscopic examination of the described specimens and rendered or confirmed the above diagnosis. End of Report [facility] 02/22/2016 02/23/2016 us Brooklyn Barker SAP BPC ARCHITECT PATHOLOGY ORDERABLES Final Res ult [facility] [address] [place] [address] documented in this encounter Visit Diagnoses Not on filedocumented in this encounter Care Teams Hearings Reporter Relationship Specialty Start Date End Date Hai Gallegos MD PCP - General 08/12/10 documented as of this encounter
--- OUTSIDE RECORDS SUMMARY | 2024-05-26 12:45 | XMS_ITS | Encounter Summary ---
Author Organization [facility] [place] [address] Care Team Providers Care Microsoft Dynamics Ax Consultant Name Role Phone Hai Gallegos MD Primary Care Provider [phone] [phone] Reason for Visit * Reason Onset Date Comments Other 05/14/2015 Encounter Details Date Type Department Care Team (Late st Contact Info) Description 05/14/2015 Tele[place] [phone] Emiliana Botello [facility] [place] [address] Other Social History Tobacco Use Types Packs/Day [...] CARE MANAGEMENT CCM Follow up call to adjuster and inspector dietary supervisor Anna Vela at [phone]/ fax [phone] regarding Ms. Holman's claim# [id number]. Mirian reports [facility] had put Ms. Holman at [facility] with no further treatment recommendations. She requests notes, charges and program information and will forwardto [facility] doctor for comment on consideration of coverage for FRP And local lodging. Response will be a couple weeks. PLAN: 1) Msg left for Ms. Holman requesting return call. Upon return call will update to Ms. Holman and healthcare team 2) monitor for approval vs denial as advocacy to patient pending this for possible FRP. documented in this encounter Plan of Treatment Not on file documented as of this encounter Visit Diagnoses Not on filedocumented in this encounter Care Teams Microsoft Dynamics Ax Consultant Relationship Specialty Start Date End Date Hai Gallegos MD [address] [place] [address] PCP - General 05/31/10 10/09/17 documented as of this encounter
--- OUTSIDE RECORDS SUMMARY | 2024-05-26 12:45 | XMS_ITS | Encounter Summary ---
Author Organization [facility] [place] [address] Care Team Providers Care Targeteer Name Role Phone Hai Gallegos MD Primary Care Provider [phone] [phone] Reason for Visit * Reason Comments Low Back Pain Encounter Details Date Type Department Care Team (Late st Contact Info) Description 07/14/2015 9:00 AM EST Office Visit Functional Anabaptist Program at [address] [address] Skylar Funes, OT Chronic back pain Social History Tobacco Use Types Packs/Day Years Used Date Smoking Tobacco: Every Day Cigarettes Smokeless Tobacco: Never Sex and Gender Information Value Date Recorded Sex Assigned at Not on file Gender Identity Not on file Sexual Orientation Not on file documented as of this encounter Progress Notes * Skylar Funes OT - 07/14/2015 12:29 PM EST [facility] Occupational Therapy Note [facility] Day 2 Protocol Subjective: Ms. Holman returns for Day 2 of the Functional Anabaptist Program. She reports new exercises and techniques will getting used to, particularly as some techniques here are different thanthe ones she's been using. Objective: Refer to [facility] protocol for additional explanation of program/occupational therapy details. AM Orientation and Conditioning - Ms. Holman received individual instruction in functional conditioning and was given an opportunityto demonstrate understanding of and ability to perform [...] program activities form 8:00 a.m. through 3:00 p.m. today. A total of 45 minutes was spent during that time to establish and implement individualized occupational therapy strategies. Care was provided by both an Occupational Therapist and Production Machine Operator, BRONWYN Ortega documented in this encounter Plan of Treatment Not on file documented as of this encounter Visit Diagnoses Diagnosis Chronic back pain Backache, unspecified documented in this encounter Care Teams Targeteer Relationship Specialty Start Date End Date Hai Gallegos MD [address] [facility] [place] [address] PCP - General 05/31/10 10/09/17 documented as of this encounter
--- OUTSIDE RECORDS SUMMARY | 2024-05-26 12:45 | XMS_ITS | Encounter Summary ---
Author Organization [facility] [place] [address] Care Team Providers Care Pewter Caster Name Role Phone Hai Gallegos MD Primary Care Provider +1 [phone] Reason for Visit * Reason Comments Back Pain Encounter Details Date Type Department Care Team (Late st Contact Info) Description 07/21/2015 8:00 AM EST Office Visit Functional Rastafarian Program at [address] [address] Juan Carlos Foley, PT [facility] [place] [address] Chronic low back pain Social History Tobacco Use Types Packs/Day Years Used Date Smoking Tobacco: Every Day Cigarettes Smokeless Tobacco: Never Sex and Gender Information Value Date Recorded Sex Assigned at Not on file Gender Identity Not on file Sexual Orientation Not on file documented as of this encounter Progress Notes * Juan Carlos Foley, PT - 07/21/2015 11:28 AM EST [facility] Physical Therapy Note [facility] Day 7 Protocol Subjective: Mary Beth returns today for a scheduled follow up appointment with [facility]; she reports still wanting to work toward her original goals. Objective: Treatment Received: Refer to [facility] protocol for explanation of program/physical therapy details. 1. Therapeutic and Functional Exercise: See [facility] flow sheets for progression. Strengthening and conditioning designed according to personal functional recovery goals and [facility] protocol was: (x) Completed ( ) Not [...] both a physical therapist and physical therapist health assistant. Cande Wilson PTA documented in this encounter Plan of Treatment Not on file documented as of this encounter Visit Diagnoses Diagnosis Chronic low back pain Lumbago documented in this encounter Care Teams Pewter Caster Relationship Specialty Start Date End Date Hai Gallegos MD [address] [facility] [place] [address] PCP - General 05/31/10 10/09/17 documented as of this encounter
--- OUTSIDE RECORDS SUMMARY | 2024-05-26 12:45 | XMS_ITS | Encounter Summary ---
Author Organization [facility] [place] [address] Care Team Providers Care Transition Teacher Name Role Phone Hai Gallegos MD Primary Care Provider +1 -[phone] Reason for Visit * Reason Onset Date Comments Other 05/21/2015 Encounter Details Date Type Department Care Team (Late st Contact Info) Description 05/21/2015 Telephone [place] [phone] Emiliana Botello [facility] [place] [address] Other Social History Tobacco Use Types Packs/Day [...] OFFICE OF CARE MANAGEMENT CCM Reply from put in beat adjuster Anna Mike at ph [phone]/ fax [phone] regarding Ms. Holman'sclaim# [id number] that [facility] doc has not yet responded requests an additional [...] on filedocumented in this encounter Care Teams Transition Teacher Relationship Specialty Start Date End Date Hai Gallegos MD [address] [facility] [place] [address] PCP - General 05/31/10 10/09/17 documented as of this encounter
--- OUTSIDE RECORDS SUMMARY | 2024-05-26 12:45 | XMS_ITS | Encounter Summary ---
Author Organization [facility] [place] [address] Care Team Providers Care Patent Chemist Name Role Phone Hai Gallegos MD Primary Care Provider +1 [phone] Encounter Details Date Type Department Care Team (Late st Contact Info) Description 07/27/2015 3:00 PM EST Office [place] [address] Medardo Lyles MD [facility] [place] [address] Chronic low back pain Social History Tobacco Use Types Packs/Day Years Used Date Smoking Tobacco: Every Day Cigarettes Smokeless Tobacco: Never Sex and Gender Information Value Date Recorded Sex Assigned at Not on file Gender Identity Not on file Sexual Orientation Not on file documented as of this encounter Progress Notes * Medardo Lyles MD - 07/27/2015 4:05 PM EST 07/27/2015 [id number] Mary Beth Holman CC: Back pain FUNCTIONAL [...] will then discuss strategies for maximal management ofnon modifiable factors. Discussion will include diet and exercise recommendations, sleep and stressmanagement. All participants will be encouraged to participate and share helpful coping strategies. Time Spent: 1 hr. documented in this encounter Plan of Treatment Not on file documented as of this encounter Visit Diagnoses Diagnosis Chronic low back pain Lumbago documented in this encounter Care Teams Patent Chemist Relationship Specialty Start Date End Date Hai Gallegos MD [address] [place] [address] PCP - General 05/31/10 10/09/17 documented as of this encounter
--- OUTSIDE RECORDS SUMMARY | 2024-05-26 12:45 | XMS_ITS | Encounter Summary ---
Author Organization [facility] [place] [address] Care Team Providers Care Product Marketing Director Name Role Phone Hai Gallegos MD Primary Care Provider +1 [phone] Reason for Visit * Reason Comments Low Back Pain Encounter Details Date Type Department Care Team (Late st Contact Info) Description 07/23/2015 9:00 AM EST Office Visit Functional Religious Program at [address] [address] Skylar Funes, OT Chronic low back pain Social History Tobacco Use Types Packs/Day Years Used Date Smoking Tobacco: Every Day Cigarettes Smokeless Tobacco: Never Sex and Gender Information Value Date Recorded Sex Assigned at Not on file Gender Identity Not on file Sexual Orientation Not on file documented as of this encounter Progress Notes * Skylar Funes OT - 07/23/2015 7:56 AM EST [facility] Occupational Therapy Note [facility] Day 9 Protocol Subjective: Ms. Holman returns today for a scheduled follow up appointment with [facility]. She reports that carrying the crate is still difficult, however carrying the weighted buckets is easier as it is similar to what she has to do to feed the horses. Objective: Refer to [facility] protocol for details and explanation of each activity. Ms. Holman participated in the following activities: Functional Therapy: 1. AM Session of functional conditioning ( X ) Completed ( ) Not Completed 2. PM Session of functional conditioning ( X ) Completed ( ) Not Completed Individualized Treatment: Increased resistance levels of functional conditioning exercises according to personal recovery goals. Specific resistance levels assigned [...] both an Occupational Therapist and Teacher Education Instructor, BRONWYN Ortega documented in this encounter Plan of Treatment Not on file documented as of this encounter Visit Diagnoses Diagnosis Chronic low back pain Lumbago documented in this encounter Care Teams Product Marketing Director Relationship Specialty Start Date End Date Hai Gallegos MD [address] [place] [address] PCP - General 05/31/10 10/09/17 documented as of this encounter
--- OUTSIDE RECORDS SUMMARY | 2024-05-26 12:45 | XMS_ITS | Encounter Summary ---
Author Organization [facility] [place] [address] Care Team Providers Care Booking Manager Name Role Phone Hai Gallegos MD Primary Care Provider [phone] [phone] Reason for Visit * Reason Comments Low Back Pain Encounter Details Date Type Department Care Team (Late st Contact Info) Description 07/27/2015 9:00 AM EST Office Visit Functional Scientologist Program at [address] [address] Skylar Funes, OT Chronic low back pain Social History Tobacco Use Types Packs/Day Years Used Date Smoking Tobacco: Every Day Cigarettes Smokeless Tobacco: Never Sex and Gender Information Value Date Recorded Sex Assigned at Not on file Gender Identity Not on file Sexual Orientation Not on file documented as of this encounter Progress Notes * Skylar Funes OT - 07/27/2015 7:43 AM EST [facility] Occupational Therapy Note [facility] Day Protocol Subjective: Ms. Holman returns today for a scheduled follow up appointment with [facility]. She reports that since the program started, she has cut down her smoking from 1/2 pack per day to a pack every 3 days, and that she is looking forward to being able to take her dog for walks. Objective: Refer to [facility] protocol for details and explanation of [...] conditioning exercises according to personal recovery goals. Discussed today's resistance levels [...] provided by both an Occupational Therapist and Manager Child, BRONWYN Ortega documented in this encounter Plan of Treatment Not on file documented as of this encounter Visit Diagnoses Diagnosis Chronic low back pain Lumbago documented in this encounter Care Teams Booking Manager Relationship Specialty Start Date End Date Hai Gallegos MD [address] [facility] [address] PCP - General 05/31/10 10/09/17 documented as of this encounter
--- OUTSIDE RECORDS SUMMARY | 2024-05-26 12:45 | XMS_ITS | Encounter Summary ---
Author Organization [facility] [address] Care Team Providers Care Project Landscape Architect Name Role Phone Hai Gallegos MD Primary Care Provider +1 -[phone] Encounter Details Date Type Department Care Team (Late st Contact Info) Description 07/23/2015 3:00 PM EST Office [place] [address] Medardo Lyles MD [facility] [place] [address] Chronic low back pain Social History Tobacco Use Types Packs/Day Years Used Date Smoking Tobacco: Every Day Cigarettes Smokeless Tobacco: Never Sex and Gender Information Value Date Recorded Sex Assigned at Not on file Gender Identity Not on file Sexual Orientation Not on file documented as of this encounter Progress Notes * Medardo Lyles MD - 07/23/2015 4:00 PM EST 07/23/2015 [id number] Mary Beth Holman FUNCTIONAL RSTORATION PROGRAM REHABILITATION TRAINING LECTURE Presenter: Medardo Lyles MD or Eleanor Lancaster APRN CC: Back pain ACUTE PAIN MANAGEMENT LECTURE. This one hour lecture begins with a review of the ACUTE PAIN WORKSHEETS completed by the patients on the day of admission to the [facility]. There is an in depth discussion ofspecific acute pain experiences. Individuals??? thoughts and beliefs [...] Lumbago documented in this encounter Care Teams Project Landscape Architect Relationship Specialty Start Date End Date Hai Gallegos MD [address] [place] [address] PCP - General 05/31/10 10/09/17 documented as of this encounter
--- OUTSIDE RECORDS SUMMARY | 2024-05-26 12:45 | XMS_ITS | Encounter Summary ---
Author Organization [facility] [place] [address] Care Team Providers Care Ore Grader Name Role Phone Hai Gallegos MD Primary Care Provider +1 -[phone] Reason for Visit * Reason Comments Low Back Pain Encounter Details Date Type Department Care Team (Late st Contact Info) Description 07/29/2015 9:00 AM EST Office Visit Functional Anabaptist Program at [address] [address] Skylar Funes, OT Chronic low back pain Social History Tobacco Use Types Packs/Day Years Used Date Smoking Tobacco: Every Day Cigarettes Smokeless Tobacco: Never Sex and Gender Information Value Date Recorded Sex Assigned at Not on file Gender Identity Not on file Sexual Orientation Not on file documented as of this encounter Progress Notes * Skylar Funes OT - 07/29/2015 8:01 AM EST [facility] Occupational Therapy Note [facility] Day 13 Protocol Subjective: Ms. Holman returns today for a scheduled follow up appointment with [facility]. She reports feeling stronger and wants to maintain her activity level to be able to control her diabetes as well as continuing to work to meet her functional goals. She She also reported that she would have to leave after the AM testing session due to an urgent family medical appointment. Objective: Refer to [facility] protocol for details and explanation of [...] 3 Month Follow-Up?? Repetitive Floor to Waist? Repetitive Waist to Shoulder? 1-Time Maximum?? 15? [...] involves contact with the public, such as ward clerk or car tester; ?? Has been looking for warp hanger/ward clerk type positions through online job search [...] able to drive for 1 1/2 hours toand from the program with no more than [...] been able to stand for 30 continuous minutesduring program activities Vocational Planning: a) Anticipated work [...] program activities from 8:00 a.m. through 2:30 p.mtoday. During that time, a total of 15 minutes was spent re-testing physical performance and a total of 30 minutes was spent implementing individualized occupational therapy strategies. Care was provided by both an Occupational Therapist and Circular Saw Filer, BRONWYN Ortega documented in this encounter Plan of Treatment Not on file documented as of this encounter Visit Diagnoses Diagnosis Chronic low back pain Lumbago documented in this encounter Care Teams Ore Grader Relationship Specialty Start Date End Date Hai Gallegos MD [address] [place] [address] PCP - General 05/31/10 10/09/17 documented as of this encounter
--- OUTSIDE RECORDS SUMMARY | 2024-05-26 12:45 | XMS_ITS | Encounter Summary ---
Author Organization [facility] [place] [address] Care Team Providers Care Staff Psychiatrist Name Role Phone Hai Gallegos MD Primary Care Provider +1 -[phone] Reason for Visit * Reason Comments Back Pain Encounter Details Date Type Department Care Team (Late st Contact Info) Description 07/19/2015 8:00 AM EST Office Visit Functional Latter Day Program at [address] [address] Juan Carlos Foley, PT [facility] [place] [address] Chronic low back pain Social History Tobacco Use Types Packs/Day Years Used Date Smoking Tobacco: Every Day Cigarettes Smokeless Tobacco: Never Sex and Gender Information Value Date Recorded Sex Assigned at Not on file Gender Identity Not on file Sexual Orientation Not on file documented as of this encounter Progress Notes * Juan Carlos Foley, PT - 07/19/2015 10:42 AM EST [facility] Physical Therapy Note [facility] Day 5 Protocol Subjective: Mary Beth returns today for a scheduled follow up appointment with [facility]; she reports that she did not experiment as planned with flexion strategies due to stomach bug type illness over the weekend. Objective: Treatment Received: Refer to [facility] protocol for explanation of program/physical therapy details. 1. Therapeutic and Functional Exercise: See FRP flow sheets for progression. Strengthening and conditioning designed according to personal functional recovery goals and [facility] protocol was: (x) Completed ( [...] a physical therapist and physical therapist assistant nurse manager. Cande Wilson PTA documented in this encounter Plan of Treatment Not on file documented as of this encounter Visit Diagnoses Diagnosis Chronic low back pain Lumbago documented in this encounter Care Teams Staff Psychiatrist Relationship Specialty Start Date End Date Hai Gallegos MD [address] [facility] [place] [address] PCP - General 05/31/10 10/09/17 documented as of this encounter
--- OUTSIDE RECORDS SUMMARY | 2024-05-26 12:45 | XMS_ITS | Encounter Summary ---
Author Organization [facility] [place] [address] Care Team Providers Care Factory Assembler Name Role Phone Hai Gallegos MD Primary Care Provider +1 -[phone] Reason for Visit * Reason Comments Chronic Back Pain Encounter Details Date Type Department Care Team (Late st Contact Info) Description 08/04/2015 10:00 AM EST Office Visit Functional Adventism Program at [address] [address] Cande Dent, HOT ROOM ATTENDANT Chronic back pain; Mechanical low back pain Social History Tobacco Use Types Packs/Day Years Used Date Smoking Tobacco: Every Day Cigarettes Smokeless Tobacco: Never Sex and Gender Information Value Date Recorded Sex Assigned at Not on file Gender Identity Not on file Sexual Orientation Not on file documented as of this encounter Progress Notes * Cande Wilson, HOT ROOM ATTENDANT - 08/04/2015 10:43 AM EST [facility] Follow-up Gym Visit Subjective: Mary Beth reports she has lost 15# since beginning of the program and is feeling great . She has established a routine at home including the [facility] workout DVD, a friend's exercise equipment and exercise ball and has a group of friends that are exercising with her. Objective: Treatment Received: [facility] gym Date 08/04/15 Treadmill 2.0 mph/4% incline x 20' (prev. 15') Stretching: FIS, EIS, Hamstrings Whqnt-qh-eqpxa st. leg lift 22.5# Aekby-zp-nmnxyqca lift 17.5# Squat lift 30# x 5 (prev. only able to lift x 2) Patient Education/Home Exercise Program: Reviewed Mary Beth's home exercise program. No barriers at this time to implementing home exercise plan. Assessment: Mary Beth has continued to make gains since the end of the program in strength and endurance and demonstrates good understanding of her home exercise program and the importance of continuing stretching, strengthening and lifting to maintain/increase functional capacities. Goals: Maintain/increase functional capacities. Plan: Mary Beth will meet with Juan Carlos Foley PT, for the FRP one month follow-up in approximately one month. Mary Beth was encouraged to call with any questions or concerns regarding today's visit or the home exercise program. Length of visit: A total of 45 minutes was spent educating and treating Mary Beth and reviewing her home exercise program. Treatment and note were completed by Cande Wilson PTA. documented in this encounter Plan of Treatment Not on file documented as of this encounter Visit Diagnoses Diagnosis Chronic back pain Backache, unspecified Mechanical low back pain Lumbago documented in this encounter Care Teams Factory Assembler Relationship Specialty Start Date End Date Hai Gallegos MD [address] [place] [address] PCP - General 05/31/10 10/09/17 documented as of this encounter
--- OUTSIDE RECORDS SUMMARY | 2024-05-26 12:45 | XMS_ITS | Encounter Summary ---
Author Organization [facility] [place] [address] Care Team Providers Care Bench Lay Out Technician Name Role Phone Hai Gallegos MD Primary Care Provider +1 [phone] Reason for Visit * Reason Onset Date Comments Other 07/12/2015 Encounter Details Date Type Department Care Team (Late st Contact Info) Description 07/12/2015 Telephone [place] [phone] Emiliana Botello [facility] [place] [address] Other Social History Tobacco Use Types Packs/Day [...] 11:46 AM EST OFFICE OF CARE MANAGEMENT [facility] Telephone call from Ms. Holman confirming arrival time, [facility] location for FRP tomorrow. Also notes, two days ago she woke up with a very painful foot. Went to local ED was diagnosed as strain and given crutches. Saw pcp today who encouraged her not to use crutches and she is willing to try. Agreed to update team and that she remains an FRP candidate if she can attempt activities without crutches. Will be staying at [facility]. No further concerns. Update to team regarding foot issue. documented in this encounter Plan of Treatment Not on file documented as of this encounter Visit Diagnoses Not on filedocumented in this encounter Care Teams Bench Lay Out Technician Relationship Specialty Start Date End Date Hai Gallegos MD [address] [place] [address] PCP - General 05/31/10 10/09/17 documented as of this encounter
--- OUTSIDE RECORDS SUMMARY | 2024-05-26 12:45 | XMS_ITS | Encounter Summary ---
Author Organization [facility] [place] [address] Care Team Providers Care Business Management Specialist Name Role Phone Hai Gallegos MD Primary Care Provider [phone] [phone] Reason for Visit * Reason Onset Date Comments Other 07/07/2015 Encounter Details Date Type Department Care Team (Late st Contact Info) Description 07/07/2015 Telephone [place] [phone] Emiliana Botello MSW [facility] [place] [address] Other Social History Tobacco Use Types Packs/Day [...] OFFICE OF CARE MANAGEMENT CCM Update from technical adjuster Anna Mike at ph [phone]/ fax [phone] that she has confirmedw Ms. Holman planned attendance will be direct booking lodging week by week at the [facility]. No job to return to. documented in this encounter Plan of Treatment Not on file documented as of this encounter Visit Diagnoses Not on filedocumented in this encounter Care Teams Business Management Specialist Relationship Specialty Start Date End Date Hai Gallegos MD [address] [place] [address] PCP - General 05/31/10 10/09/17 documented as of this encounter
--- OUTSIDE RECORDS SUMMARY | 2024-05-26 12:45 | XMS_ITS | Encounter Summary ---
Author Organization [facility] [place] [address] Care Team Providers Care Health Care / Medical Job Titles Name Role Phone Hai Gallegos MD Primary Care Provider [phone] [phone] Reason for Visit * Reason Onset Date Comments Other 05/07/2015 Encounter Details Date Type Department Care Team (Late st Contact Info) Description 05/07/2015 Telephone [place] [phone] Emiliana Botello MSW [facility] [place] [address] Other Social History Tobacco Use Types Packs/Day [...] CARE MANAGEMENT CCM Follow up call to scale adjuster Aimee Jacques [phone]/ fax [phone] claim# [id number] noting that though pre authorization doesn't require response until 05/12, Ms. Holman could start Functional Religious Program [email or web address] and requesting response to gauge inclination to proceed. Update to patient and heatlhcare team pending response. documented in this encounter Plan of Treatment Not on file documented as of this encounter Visit Diagnoses Not on filedocumented in this encounter Care Teams Health Care / Medical Job Titles Relationship Specialty Start Date End Date Hai Gallegos MD [address] [place] [address] PCP - General 05/31/10 10/09/17 documented as of this encounter
--- OUTSIDE RECORDS SUMMARY | 2024-05-26 12:45 | XMS_ITS | Encounter Summary ---
Author Organization [facility] [place] [address] Care Team Providers Care Food Service Kitchen Supervisor Name Role Phone Hai Gallegos MD Primary Care Provider [phone] [phone] Reason for Visit * Reason Comments Low Back Pain Encounter Details Date Type Department Care Team (Late st Contact Info) Description 07/13/2015 11:45 AM EST Office Visit Functional Hoahaoism Program at [address] [address] Skylar Funes, OT Chronic back pain Social History Tobacco Use Types Packs/Day Years Used Date Smoking Tobacco: Every Day Cigarettes Smokeless Tobacco: Never Sex and Gender Information Value Date Recorded Sex Assigned at Not on file Gender Identity Not on file Sexual Orientation Not on file documented as of this encounter Progress Notes * Skylar Funes OT - 07/13/2015 3:19 PM EST Functional Hoahaoism Program (Day 1) Occupational Therapy Evaluation Problem List: 1. Unclear Vocational Goal 2. 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 She reports that she fell when a pile of merchandise collapsed on her, knocking her over. Ms. Holman reports a history of bilateral knee pain, bilateral shoulder pain, neck pain with sensory loss and weakness of left upper extremity, leftwrist cyst removal, left elbow tendon debridement procedures, diabetes, hypertension, vertigo, and asthma. Ms. Holman uses the following pain management strategies: changing positions, medication. She has completed the following schooling & additional training: High school diploma, on-the-job training for training of trainers Work experience has included the following jobs: [employer] for 8 years (last worked May2014). 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 Holman reports the following return to work plan: No clear plans at this point. 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 She identifies the following barriers to return to work: - job no longer available - physical demands exceed current physical capacities - personal barrier - will need to arrange for day care for elderly mother She is working with a vocational rehabilitation counselor to assist in the RTW process. She has notmet with the counselor since 01/2015, and plans to resume work with the counselor based on the outcome of the FRP. Activities of Daily Living: Ms. Holman reports the following levels of participation: Personal Care 87% Home Maintenance 13% General Mobility 38% Homemaking 39% Getting out and about 67% Results were calculated from a self-report screening tool. Present Work Status: Out of work. 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 [...] involves contact with the public, such as rehabilitation clerk or receptionist nurse; Recreational: Be able to bend and lift [...] functional strength, decreased AROM, decreased endurance, limited positional tolerances, fear of re-injury, and fear of increased pain. She will benefit from participating mai conditioning program designed to increase functional strength, flexibility, and endurance in order to meet functional goals. FRP Goals: While working towards the parts counterman (3 month) functional goals listed above, Ms. Thomson accomplish the following short term goals during [...] unspecified documented in this encounter Care Teams Food Service Kitchen Supervisor Relationship Specialty Start Date End Date Hai Gallegos MD [address] [place] [address] PCP - General 05/31/10 10/09/17 documented as of this encounter
--- OUTSIDE RECORDS SUMMARY | 2024-05-26 12:45 | XMS_ITS | Encounter Summary ---
Author Organization [facility] [place] [address] Care Team Providers Care Claim Review Medical Director Name Role Phone Hai Gallegos MD Primary Care Provider [phone] [phone] Reason for Visit * Reason Comments Low Back Pain Encounter Details Date Type Department Care Team (Late st Contact Info) Description 07/15/2015 9:00 AM EST Office Visit Functional Church Program at [address] [address] Skylar Funes, OT Chronic low back pain Social History Tobacco Use Types Packs/Day Years Used Date Smoking Tobacco: Every Day Cigarettes Smokeless Tobacco: Never Sex and Gender Information Value Date Recorded Sex Assigned at Not on file Gender Identity Not on file Sexual Orientation Not on file documented as of this encounter Progress Notes * Skylar Funes OT - 07/15/2015 7:48 AM EST [facility] Occupational Therapy Note [facility] Day 3 Protocol Subjective: Ms. Holman returns today for a scheduled follow up appointment with [facility]. She reports that the evening stretching exercises did not seem to help. She reported having some difficulty with the straight-leg crate lifting today, but that she would get it done. Objective: Refer to [facility] protocol for details and explanation of each activity. Ms. Holman participated in the following activities: Functional Therapy: 1. AM Session of functional conditioning ( X ) Completed ( ) Not Completed 2. PM Session of functional conditioning ( X ) Completed ( ) Not Completed Individualized Treatment: Increased resistance levels of functional conditioning exercises according to personal recovery goals. Increased repetitions on frequent [...] provided by both an Occupational Therapist and Frame Stripper, BRONWYN Ortega documented in this encounter Plan of Treatment Not on file documented as of this encounter Visit Diagnoses Diagnosis Chronic low back pain Lumbago documented in this encounter Care Teams Claim Review Medical Director Relationship Specialty Start Date End Date Hai Gallegos MD [address] [place] [address] PCP - General 05/31/10 10/09/17 documented as of this encounter
--- OUTSIDE RECORDS SUMMARY | 2024-05-26 12:45 | XMS_ITS | Encounter Summary ---
Author Organization [facility] Address [address] [place] [address] Care Team Providers Care Highway Painter Helper Name Role Phone Hai Gallegos MD Primary Care Provider Unav ailable Encounter Details Date Type Department Care Team (Late st Contact Info) Description 08/05/2020 Lab Requisition [facility] Pathology & Laboratory Medicine - [address] [address] Outr Resulting Lab, Provider Social History Tobacco [...] Procedure Name Priority Date/Time Associated Diagnosis Comments ZZCOVID-19 TEST [facility] PCR Today 08/05/2020 16:25 EST COVID-19 TESTING Routine 08/05/2020 16:2 5 EST documented in this encounter Results * COVID-19 TEST [facility] PCR (08/05/2020 16:25 EST) Swab ENTIRE NASOPHARYNX / Unknown 08/05/2020 16:25 EST 08/05/2020 20:39 EST us Provider Outr Resulting Lab MICROBIOLOGY - GENER AL ORDERABLES Final Result Performing Organization Address City/[facility]/ZIP Co de Phone Number [facility] [address] [place] [address] * COVID-19 TESTING (08/05/2020 16:25 EST) COVID-19 rt-PCR Result Negative Negative 08/06/2020 18:17 EST [facility] Comment: This test has not been FDA cleared or approved. This test has been authorized by FDA under an EUA for use by authorized laboratories. This test has been authorized only for detection of nucleic acid from 2019-nCoV, not for any other viruses or pathogens. This test is only authorized for the duration of the declaration that circumstances exist justifying the authorization of emergency use of in vitro diagnostic tests for detection and/or diagnosis of 2019-nCoV under section 564(b)(1) of Act, 21 U.S.C ?? 360bbb-3(b) (1), unless the authorization is terminated or revoked sooner. Negative results do not preclude 2019-nCoV infection and should not be used as the sole basis for treatment or other patient management decisions. Negative results must be combined with clinical observations, patient history, and epidemiological information. This test was developed and its performance characteristics determined by [facility]. It has not been cleared or approved by the US Food and Drug Administration. FDA does not require this test to go through premarket FDA review. This test is used for clinical purposes. It should not be regarded as investigational or for research. This laboratory is certified under the Clinical Laboratory Improvement Amendments (CLIA) as qualified to perform high complexity clinical laboratory testing. This test is based on the [facility] COVID-19 Emergency Use Authorization (EUA) assay, with minor modification as defined by the FDA Performed on the Zuseo 7 Flex RT-PCR System. Performing Lab [facility] Lab 08/06/2020 18:17 EST [facility] Swab 08/05/2020 16:2 5 EST 08/05/2020 20:39 EST us Provider Outr Resulting Lab MICROBIOLOGY - GENER AL ORDERABLES Final Result Performing Organization Address City/[facility]/ZIP Co de Phone Number [facility] [address] [place] [address] documented in this encounter Visit Diagnoses Not on filedocumented in this encounter Care Teams Highway Painter Helper Relationship Specialty Start Date End Date Hai Gallegos MD PCP - General 08/12/10 documented as of this encounter
--- OUTSIDE RECORDS SUMMARY | 2024-05-26 12:45 | XMS_ITS | Encounter Summary ---
Author Organization [place] [address] Care Team Providers Care Plastics Patternmaker Name Role Phone Hai Gallegos MD Primary Care Provider +1 [phone] Reason for Visit * Reason Comments Back Pain Encounter Details Date Type Department Care Team (Late st Contact Info) Description 06/14/2015 10:30 AM EST Office [place] [address] Juan Carlos Floey, PT [facility] [place] [address] Chronic low back pain Social History Tobacco Use Types Packs/Day Years Used Date Smoking Tobacco: Every Day Cigarettes Smokeless Tobacco: Never Sex and Gender Information Value Date Recorded Sex Assigned at Not on file Gender Identity Not on file Sexual Orientation Not on file documented as of this encounter Progress Notes * Juan Carlos Foley, PT - 06/14/2015 10:35 [...] 20 minute session, learned through past PT including supine hamstring stretches, side lying single knee to [...] bend standing 10 (Right = Left Side [place]) Repeated movement testing During, After Pre-test pain [...] recovery goals and is looking forward to [facility]. Plan: Initial self care trial centered around rotation in flexion lying knees left x 10 repetitions four sessions per day, walking twice daily starting at 5 and progressing toward 3 week goal of 15 minutesper session. Knows to discontinue any movement or activity that causes true worsening or peripheralization of symptoms. Will follow up for day 1 testing in the July [facility], then outline additional training and treatment goals. Length of visit: 45 minutes spent in consult with Ms. Holman, testing then outlining specific exercise strategies accordingly. documented in this encounter Plan of Treatment Not on file documented as of this encounter Visit Diagnoses Diagnosis Chronic low back pain Lumbago documented in this encounter Care Teams Plastics Patternmaker Relationship Specialty Start Date End Date Hai Gallegos MD [address] [place] [address] PCP - General 05/31/10 10/09/17 documented as of this encounter
--- OUTSIDE RECORDS SUMMARY | 2024-05-26 12:45 | XMS_ITS | Clinical Summary ---
Author Organization [facility] Address [address] [place] [address] Care Team Providers Care Farm Marketer Name Role Phone Hai Gallegos MD Primary [...] Orientation Not on file Plan of Treatment Health Maintenance Due Date Last Done Comments Hepatitis C Screen 1960 COVID-19 Vaccine (2023- season) 2024 RSV Immunization ( o r 60+ Years) (1 - 1-dose 75+ series) 09/11/2034 Insurance MEDICAID [place] Care Teams Farm Marketer Relationship Specialty Start Date End Date Hai Gallegos MD PCP - General 08/12/10
--- OUTSIDE RECORDS SUMMARY | 2024-05-26 12:45 | XMS_ITS | Encounter Summary ---
Author Organization [facility] [place] [address] Care Team Providers Care Motorized Squad Lieutenant Name Role Phone Hai Gallegos MD Primary Care Provider +1 [phone] Reason for Visit * Reason Comments Low Back Pain Encounter Details Date Type Department Care Team (Late st Contact Info) Description 07/22/2015 9:00 AM EST Office Visit Functional Confucianist Program at [address] [address] Skylar Funes, OT Chronic low back pain Social History Tobacco Use Types Packs/Day Years Used Date Smoking Tobacco: Every Day Cigarettes Smokeless Tobacco: Never Sex and Gender Information Value Date Recorded Sex Assigned at Not on file Gender Identity Not on file Sexual Orientation Not on file documented as of this encounter Progress Notes * Skylar Funes OT - 07/22/2015 8:48 AM EST [facility] Occupational Therapy Note [facility] Day 8 Protocol Subjective: Ms. Holman returns today for a scheduled follow up appointment with [facility]. She reports that she has not been in contact with her Voc. Rehab. Counselor, and cannot remember her last name, however she has the email address and will contact her to let her know that she would like her to talk to the team to coordinate vocational planning. Objective: Refer to [facility] protocol for details and explanation of [...] provided by both an Occupational Therapist and Road Machine Operator, BRONWYN Ortega documented in this encounter Plan of Treatment Not on file documented as of this encounter Visit Diagnoses Diagnosis Chronic low back pain Lumbago documented in this encounter Care Teams Motorized Squad Lieutenant Relationship Specialty Start Date End Date Hai Gallegos MD [address] [facility] [place] [address] PCP - General 05/31/10 10/09/17 documented as of this encounter
--- OUTSIDE RECORDS SUMMARY | 2024-05-26 12:45 | XMS_ITS | Encounter Summary ---
Author Organization [facility] [place] [address] Care Team Providers Care Enterprise Applications Manager Name Role Phone Hai Gallegos MD Primary Care Provider +1 -[phone] Reason for Visit * Reason Comments Back Pain Encounter Details Date Type Department Care Team (Late st Contact Info) Description 04/06/2015 2:00 PM EDT [place] [address] Juan Carlos Foley, PT [facility] [place] [address] Regulo Cantu MD [facility] [place] [address] Chronic low back pain Social History Tobacco [...] Notes * Juan Carlos Foley, PT - 04/06/2015 1:35 [...] left elbow tendon debridement procedures, diabetes, hypertension, vertigo,and asthma. 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 Recreational: Manage flower and vegetable [...] on today???s physical capacity findings Mary Beth Dann Holman is a candidate for a multidisciplinary intensive physical rehabilitation program with behavioral support. There are physical limitations in gait, range of motion, walking endurance, functional strength, and overall physical capacities that interfere with basic functional tasks and hinder quality of life. I believe that this can improvewith functional rehabilitation. PLAN: Pending medical clearance, Mary Beth has been recommended for the upcoming Functional Orthodox Program (FRP) that includes 3-4 weeks of intensive PT/OT followed by a minimum of 6 months commitment to self care exercise for improving and maintaining physical capacities. Total time for testin minutes documented in this encounter Plan of Treatment Not on file documented as of this encounter Visit Diagnoses Diagnosis Chronic low back pain Lumbago documented in this encounter Care Teams Enterprise Applications Manager Relationship Specialty Start Date End Date Hai Gallegos MD [address] [place] [address] PCP - General 05/31/10 10/09/17 documented as of this encounter
--- OUTSIDE RECORDS SUMMARY | 2024-05-26 12:45 | XMS_ITS | Encounter Summary ---
[place] [address] Care Team Providers Care Fleet Coordinator Name Role Phone Hai Gallegos MD Primary Care Provider [phone] [phone] Encounter Details Date Type Department Care Team (Late st Contact Info) Description 01/12/2017 Telephone [place] [id number] Ariel Roberson Social History Tobacco Use Types Packs/Day Years [...] encounter Miscellaneous Notes * Telephone Encounter - Ariel Roberson - 01/12/2017 12:46 PM EDT Surgery 02/02 documented in this encounter Plan of Treatment Not on file documented as of this encounter Visit Diagnoses Not on filedocumented in this encounter Care Teams Fleet Coordinator Relationship Specialty Start Date End Date Hai Gallegos MD [address] [place] [address] PCP - General 05/31/10 10/09/17 documented as of this encounter
--- OUTSIDE RECORDS SUMMARY | 2024-05-26 12:45 | XMS_ITS | Encounter Summary ---
Author Organization [facility] [place] [address] Care Team Providers Care Computer Programmer Name Role Phone Hai Gallegos MD Primary Care Provider [phone] [phone] Reason for Visit * Reason Comments Back Pain Encounter Details Date Type Department Care Team (Late st Contact Info) Description 07/26/2015 8:00 AM EST Office Visit [facility] at [address] [address] Juan Carlos Foley, PT [facility] [place] [address] Chronic low back pain Social History Tobacco Use Types Packs/Day Years Used Date Smoking Tobacco: Every Day Cigarettes Smokeless Tobacco: Never Sex and Gender Information Value Date Recorded Sex Assigned at Not on file Gender Identity Not on file Sexual Orientation Not on file documented as of this encounter Progress Notes * Juan Carlos Foley, PT - 07/26/2015 10:25 AM EST [facility] Physical Therapy Note [facility] Day 10 Protocol Subjective: Mary Beth returns today for a scheduled follow up appointment with [facility]; she reports her foot has been feeling better and she would like to try the stationary bike again today. Objective: Treatment Received: Refer to [facility] protocol for explanation of program/physical therapy details. 1. Therapeutic and Functional Exercise: See FRP flow sheets for progression. Strengthening and conditioning designed according to personal functional recovery goals and [facility] protocol was: (x) Completed ( ) [...] both a physical therapist and physical therapist regulatory assistant. Cande Wilson PTA documented in this encounter Plan of Treatment Not on file documented as of this encounter Visit Diagnoses Diagnosis Chronic low back pain Lumbago documented in this encounter Care Teams Computer Programmer Relationship Specialty Start Date End Date Hai Gallegos MD [address] [place] [address] PCP - General 05/31/10 10/09/17 documented as of this encounter
--- OUTSIDE RECORDS SUMMARY | 2024-05-26 12:45 | XMS_ITS | Encounter Summary ---
Author Organization [facility] Address [address] [place] [address] Care Team Providers Care Etl Software Engineer Name Role Phone Hai Gallegos MD Primary Care Provider Unav ailable Encounter Details Date Type Department Care Team (Late st Contact Info) Description 07/27/2021 Lab Requisition [facility] Pathology & Laboratory Medicine - [address] [address] Outr Resulting Lab, Provider Social History Tobacco [...] Comments ZZCOVID-19 TEST [facility] PCR Today 07/27/2021 13:00 EST COVID-19 TESTING Routine 07/27/2021 13:0 0 EST documented in this encounter Results * COVID-19 TEST [facility] PCR (07/27/2021 13:00 EST) Swab 07/27/2021 13:0 0 EST 07/27/2021 21:11 EST us Provider Outr Resulting Lab MICROBIOLOGY - GENER AL ORDERABLES Final Result [facility] [address] [place] [address] * COVID-19 TESTING (07/27/2021 13:00 EST) COVID-19 rt-PCR Result Negative Negative 07/28/2021 12:27 EST [facility] Comment: This test has not [...] clinical observations, patient history, and epidemiological information. Testing was performed using the minh SARS-CoV-2 assay ([employer] on the Minh 6800 System Performing Lab Minh [address] [facility] Lab 07/28/2021 12:27 EST [facility] Swab 07/27/2021 13:0 0 EST 07/27/2021 21:11 EST us Provider Outr Resulting Lab MICROBIOLOGY - GENER AL ORDERABLES Final Result Performing Organization Address City/[facility]/ZIP Co de Phone Number [facility] [address] [place] [address] documented in this encounter Visit Diagnoses Not on filedocumented in this encounter Care Teams Etl Software Engineer Relationship Specialty Start Date End Date Hai Gallegos MD PCP - General 08/12/10 documented as of this encounter
--- OUTSIDE RECORDS SUMMARY | 2024-05-26 12:45 | XMS_ITS | Encounter Summary ---
Author Organization [facility] [place] [address] Care Team Providers Care Developmental Behavioral Physician Name Role Phone Hai Gallegos MD Primary Care Provider [phone] [phone] Reason for Visit * Reason Onset Date Comments Other 07/22/2015 Encounter Details Date Type Department Care Team (Late st Contact Info) Description 07/22/2015 Telephone [place] [phone] Emiliana Botello [place]W [place] [address] Other Social History Tobacco Use Types Packs/Day [...] 2:13 PM EST OFFICE OF CARE MANAGEMENT [facility] Ms left for wc envelope folding machine adjuster Anna Mike at ph [phone]/ fax [phone] regarding Ms. Holman's claim# [id number] [email or web address] requesting status of re instating voc counseling as she may be entitled and is now engaged and progressing. Request return call regarding status and timeframe. Update to patient and healthcare team. documented in this encounter Plan of Treatment Not on file documented as of this encounter Visit Diagnoses Not on filedocumented in this encounter Care Teams Developmental Behavioral Physician Relationship Specialty Start Date End Date Hai Gallegos MD [address] [place] [address] PCP - General 05/31/10 10/09/17 documented as of this encounter
--- OUTSIDE RECORDS SUMMARY | 2024-05-26 12:45 | XMS_ITS | Encounter Summary ---
Author Organization [facility] Address [address] [place] [address] Care Team Providers Care Regional Flatbed Truck Driver Name Role Phone Hai Gallegos MD Primary Care Provider Unav ailable Encounter Details Date Type Department Care Team (Late st Contact Info) Description 03/22/2021 Lab Requisition [facility] Pathology & Laboratory Medicine - [address] [address] Outr Resulting Lab, Provider Social History Tobacco [...] Comments ZZCOVID-19 TEST [facility] PCR Today 03/21/2021 12:50 EDT COVID-19 TESTING Routine 03/21/2021 12:5 0 EDT documented in this encounter Results * COVID-19 TEST [facility] PCR (03/21/2021 12:50 EDT) Swab ENTIRE NASOPHARYNX / Unknown 03/21/2021 12:50 EDT 03/22/2021 15:51 EDT us Provider Outr Resulting Lab MICROBIOLOGY - GENER AL ORDERABLES Final Result [facility] [address] [place] [address] * COVID-19 TESTING (03/21/2021 12:50 EDT) COVID-19 rt-PCR Result Negative Negative 03/23/2021 13:28 EDT [facility] Comment: This test has [...] developed and its performance characteristics determined by [facility]. It has not been cleared or [...] testing. This test is based on the [facility] COVID-19 Emergency Use Authorization (EUA) assay, with minor modification as defined by the FDA Performed on the [employer] 7 Flex RT-PCR System. This test was developed and its performance characteristics determined by [facility]. It has not been cleared or [...] testing. This test is based on the [facility] COVID-19 Emergency Use Authorization (EUA) assay, with minor modification as defined by the FDA Performed on the [employer] 7 Pro RT-PCR System. Performing Lab [facility] 03/23/2021 13:28 EDT [facility] Swab 03/21/2021 12:5 0 EDT 03/22/2021 15:51 EDT us Provider Outr Resulting Lab MICROBIOLOGY - GENER AL ORDERABLES Final Result [facility] [address] [place] [address] documented in this encounter Visit Diagnoses Not on filedocumented in this encounter Care Teams Regional Flatbed Truck Driver Relationship Specialty Start Date End Date Hai Gallegos MD PCP - General 08/12/10 documented as of this encounter
--- OUTSIDE RECORDS SUMMARY | 2024-05-26 12:45 | XMS_ITS | Encounter Summary ---
Author Organization [facility] Address [address] [place] [address] Care Team Providers Care Batch Mixer Name Role Phone Hai Gallegos MD Primary Care Provider Unav ailable Encounter Details Date Type Department Care Team (Late st Contact Info) Description 09/09/2020 Lab Requisition [facility] Pathology & Laboratory Medicine - [address] [address] Outr Resulting Lab, Provider Social History Tobacco [...] Procedure Name Priority Date/Time Associated Diagnosis Comments HOLD SST Today 09/09/2020 13:35 EST CCP ANTIBODIES Today 09/09/2020 13:35 EST RHEUMATOID FACTOR Today 09/09/2020 13: 35 EST documented in this encounter Results * HOLD SST (09/09/2020 13:35 EST) Hold Hold 09/09/2020 21:45 EST [facility] Blood VENOUS BLOOD / Unknown 09/09/2020 13:35 EST 09/09/2020 20:37 EST us Provider Outr Resulting Lab LAB INFO SERVICE AND SUPPORT & PHONE RESULT Final Result Performing Organization Address [facility] Co de Phone Number [facility] [address] [place] [address] * RHEUMATOID FACTOR (09/09/2020 13:35 EST) Rheumatoid Factor <8.6 <12.0 IU/mL 09/09/2020 20:59 EST [facility] Blood VENOUS BLOOD / Unknown 09/09/2020 13:35 EST 09/09/2020 20:37 EST us Provider Outr Resulting Lab CHEMISTRY & BLOOD GA S ORDERABLES Final Result Performing Organization Address [facility] Co de Phone Number [facility] [address] [place] [address] * CCP ANTIBODIES (09/09/2020 13:35 EST) CCP Antibodies <2.5 <5.0 U/mL 09/10/2020 9:22 EST [facility] Blood VENOUS BLOOD / Unknown 09/09/2020 13:35 EST 09/09/2020 20:37 EST us Provider Outr Resulting Lab IMMUNOLOGY AND SEROL OGY ORDERABLES Final Result Performing Organization Address [facility] Co de Phone Number [facility] [address] [place] [address] documented in this encounter Visit Diagnoses Not on filedocumented in this encounter Care Teams Batch Mixer Relationship Specialty Start Date End Date Hai Gallegos MD PCP - General 08/12/10 documented as of this encounter
--- OUTSIDE RECORDS SUMMARY | 2024-05-26 12:46 | XMS_ITS | Encounter Summary ---
Author Organization [facility] Address [address] [place] [address] Care Team Providers Care Rag Production Worker Name Role Phone Unavailable Primary Care Provider Unavailabl e Encounter Details Date Type Department Care Team (Late st Contact Info) Description 01/23/2006 Results Only [facility] [address] [place] [address] Glenny Feliciano, UNCLAIMED PROPERTY MANAGER [address] [place] [address] Social History Tobacco Use Types Packs/Day Years [...] Procedure Name Priority Date/Time Associated Diagnosis Comments CYTOPATHOLOGY Routine 01/23/2006 0:00 EDT documented in this encounter Results * CYTOPATHOLOGY (01/23/2006 0:00 EDT) Pathology Report: CYTOPATHOLOGY REPORT Reports generated via electronic interface contain original data; however they are lacking the format of the original report. Caution should be taken when reading/interpreti ng unformatted reports. Name: ? MARY BETH HICKEY ? Accession #: ? [id number] : ? 1960 (Age: 45) ??F ?Collect Date: ? 01/23/2006 Location: ? [facility] ? Receive Date: ? 01/25/2006 Provider: ?GLENNY FELICIANO UNCLAIMED PROPERTY MANAGER Copy to: ? Specimen/Source: ?ThinPrep Pap Test, Cervix, processed on [employer] ThinPrep Imaging System, with manual evaluation Last Menstrual Period: ? 01/03/06 Other: ? Additional clinical information: Possible abnormal pap many years ago HPVA - HPV testing requested if ASC-US on the current ThinPrep Pap test. ? SPECIMEN ADEQUACY ? Satisfactory for Evaluation - transformation zone component present GENERAL CATEGORIZATION ? Other, see interpretation INTERPRETATION ? Endometrial cells present in a woman equal to or greater than age 40. Negative for Intraepithelial Lesion or Malignancy. Reactive cellular changes associated with inflammation present (includes repair). EDUCATIONAL NOTES/RECOMMENDATI ONS ? Benign appearing endometrial cells on Pap tests are usually a normal finding in women with regular menstrual cycles, especially if the Pap test was collected during the first half of the menstrual cycle. There is data showing that endometrial cells on Pap tests may be associated with endometrial/uterin e abnormalities in post menopausal women or in perimenopausal women with abnormal bleeding. There is limited data on the significance of benign endometrial cells in post menopausal women on HRT. ??Clinical correlation is recommended. Note: ??The Pap test is not an accurate test for the screening of endometrial lesions and should not be used as a follow up in patients with clinical suspicion of endometrial pathology. ? Document reviewed and electronically signed by: ? Derik Oswald MD ? Report Date: ??01/31/2006 15:12 End of Report [facility] 01/23/2006 01/25/2006 us Glenny Feliciano UNCLAIMED PROPERTY MANAGER PATHOLOGY ORDERABLES Final Result [facility] [address] [place] [address] documented in this encounter Visit Diagnoses Not on filedocumented in this encounter
--- OUTSIDE RECORDS SUMMARY | 2024-05-26 12:46 | XMS_ITS | Encounter Summary ---
Author Organization [facility] Address [address] [place] [address] Care Team Providers Care Counter Attendant Name Role Phone Unavailable Primary Care Provider Unavailabl e Encounter Details Date Type Department Care Team (Late st Contact Info) Description 01/28/2008 Before PRISM Converted Visit (Maple) [facility] - Maple conversion [address] [place] [address] Juve Dawkins MD [address] [place] [address] Social History Tobacco Use Types Packs/Day Years [...] Date/Time Associated Diagnosis Comments SURGICAL PATHOLOGY Routine 01/28/2008 0:00 EDT documented in this encounter Results * SURGICAL PATHOLOGY (01/28/2008 0:00 EDT) Pathology Report: SURGICAL PATHOLOGY REPORT ? Reports generated via electronic interface contain original data; ? however they are lacking the format of the original report. ? Caution should be taken when reading/interpreti ng unformatted reports. ? Name: ? RUPERTO, MARY BETH L ? Accession #: ? [id number] ? : ? 1960 (Age: 47) ??F ? Collect Date: ? 01/28/2008 ? Location: ? [facility] ? Receive Date: ? 01/28/2008 ? Provider: JUVE DAWKINS MD ? Copy to: CAMACHO L FELICIANO RENTAL COUNTER CLERK ? Final Pathologic Diagnosis: ? Endometrium, curettage: ? 1. ?Proliferative endometrium. ? - No cytologic atypia. ? 2. ?Fragments of benign squamous epithelium. ? Document reviewed and electronically signed by: ? Johan Caal MD ? Report ??Date: 01/31/2008 10:07 ? By the signature above, the attending physician certifies that he/she has ? personally conducted a gross and/or microscopic examination of the described ? specimens and rendered or confirmed the above diagnosis. ? Specimen(s) Received: ? Endometrial curettings ? Clinical History: ? D&C, hysteroscopy, bleeding x 3 months ? Gross Description: ? Received in formalin labelled Garland and A ??EMC is 1.0 cc of red-brown ?? tissue fragment admixed with blood-tinged mucus. ??The specimen is submitted ? entirely in one cassette. ([email or web address] [email or web address])/mpl ? End of Report ? [facility] 01/28/2008 01/28/2008 17: 01 EDT us Juve Dawkins MD PATHOLOGY ORDERABLES Final Resu lt [facility] [address] [place] [address] documented in this encounter Visit Diagnoses Not on filedocumented in this encounter
--- OUTSIDE RECORDS SUMMARY | 2024-05-26 12:46 | XMS_ITS | Encounter Summary ---
Author Organization [facility] Address [address] [place] [address] Care Team Providers Care Hospital Plan Administrator Name Role Phone Unavailable Primary Care Provider Unavailabl e Encounter Details Date Type Department Care Team (Late st Contact Info) Description 04/04/[address] Results [address] [facility] - Maple conversion [address] [place] [address] Glenny Feliciano, APPLICATIONS TESTER [address] [place] [address] Social History Tobacco Use Types [...] Priority Date/Time Associated Diagnosis Comments CYTOPATHOLOGY Routine 04/04/2000 0:00 EDT documented in this encounter Results * CYTOPATHOLOGY (04/04/2000 0:00 EDT) Pathology Report: CYTOPATHOLOGY REPORT Reports generated via electronic interface contain original data; however they are lacking the format of the original report. Caution should be taken when reading/interpreti ng unformatted reports. Name: ? MARY BETH HICKEY ? Accession #: ? [id number] : ? 1960 (Age: 39) ??F ?Collect Date: ? 04/04/2000 Location: ? [facility] ? Receive Date: ? 04/06/2000 Provider: ?GLENNY FELICIANO APPLICATIONS TESTER Copy to: ? Specimen/Source: ?ThinPrep Pap Test, Cervix Last Menstrual Period: ? 03/10/00 Previous Gynecologic Pathology: ? Yes ? SPECIMEN ADEQUACY ? Satisfactory for evaluation but limited by an absence of a transformation zone component. GENERAL CATEGORIZATION ? Within Normal Limits ? Document reviewed and electronically signed by: ? Laurence Singleton, ??CT(ASCP) ? Report Date: ??04/10/2000 11:46 End of Report [facility] 04/04/2000 04/06/2000 us Glenny Feliciano APPLICATIONS TESTER PATHOLOGY ORDERABLES Final Result [facility] [address] [place] [address] documented in this encounter Visit Diagnoses Not on filedocumented in this encounter
--- OUTSIDE RECORDS SUMMARY | 2024-05-26 12:46 | XMS_ITS | Encounter Summary ---
Author Organization [facility] Address [address] [place] [address] Care Team Providers Care Salt Lifter Name Role Phone Unavailable Primary Care Provider Unavailabl e Encounter Details Date Type Department Care Team (Late st Contact Info) Description 03/09/2005 Results Only [facility] - Maple conversion [address] [place] [address] Glenny Perez MD [address] [place] [address] [place] [address] Social History Tobacco Use Types Packs/Day Years [...] Date/Time Associated Diagnosis Comments SURGICAL PATHOLOGY Routine 03/09/2005 0:00 EDT documented in this encounter Results * SURGICAL PATHOLOGY (03/09/2005 0:00 EDT) Pathology Report: SURGICAL PATHOLOGY REPORT Reports generated via electronic interface contain original data; however they are lacking the format of the original report. Caution should be taken when reading/interpreti ng unformatted reports. Name: ? MARY BETH HICKEY ? Accession #: ? [id number] ? : ? 1960 (Age: 44) ??F ? Collect Date: ? 03/09/2005 ? Location: ? [facility] ? Receive Date: ? 03/10/2005 ? Provider: GLENNY PEREZ MD Copy to: TERESITA HALL MD [...] the above diagnosis. Specimen(s) Received: ? Endometrial bx Clinical History: ? Menorrhagia Gross Description: ? Received in formalin labelled Favreau and bx endometrial are multiple leonardo to leonardo-red focally hemorrhagic soft fragments of tissue admixed with a small amount of clear mucinous material. ??The specimen measures roughly 1.5 cc in total volume and is submitted entirely in one cassette. ??(Yuriy Sullivan)/[facility] [place] [place] End of Report [facility] 03/09/2005 03/10/2005 8:4 5 EDT us Glenny Perez MD PATHOLOGY ORDERABLES Final Resu lt [facility] [address] [place] [address] documented in this encounter Visit Diagnoses Not on filedocumented in this encounter
--- OUTSIDE RECORDS SUMMARY | 2024-05-26 12:46 | XMS_ITS | Encounter Summary ---
Author Organization [facility] Address [address] [place] [address] Care Team Providers Care Make Ready Worker Name Role Phone Unavailable Primary Care Provider Unavailabl e Encounter Details Date Type Department Care Team (Late st Contact Info) Description 01/22/2008 Before PRISM Converted Visit (Maple) [facility] - Maple conversion [address] [place] [address] Juve Dawkins MD [address] [place] [address] Social History Tobacco Use Types Packs/Day Years [...] Priority Date/Time Associated Diagnosis Comments CYTOPATHOLOGY Routine 01/22/2008 0:00 EDT documented in this encounter Results * CYTOPATHOLOGY (01/22/2008 0:00 EDT) Pathology Report: CYTOPATHOLOGY REPORT ? Reports generated via electronic interface contain original data; ? however they are lacking the format of the original report. ? Caution should be taken when reading/interpreti ng unformatted reports. ? Name: ? RUPERTO, MARY BETH L ? Accession #: ? [id number] ? : ? 1960 (Age: 47) ??F ?Collect Date: ? 01/22/2008 ? Location: ? [facility] ? Receive Date: ? 01/24/2008 ? Provider: ?JUVE DAWKINS MD ? Copy to: ? Specimen/Source: ?ThinPrep Pap Test, Vagina/Cervix/Endo cervix, processed ?? on [employer] ThinPrep Imaging System, with manual evaluation ? Last Menstrual Period: ? present ? Treatment History: ? Cryotherapy ? SPECIMEN ADEQUACY ? Satisfactory for Evaluation ? - transformation zone component absent ? GENERAL CATEGORIZATION ? Other, see interpretation ? INTERPRETATION ? Endometrial cells present in a woman equal to or greater than age 40. ? Negative for Intraepithelial Lesion. ? EDUCATIONAL NOTES/RECOMMENDATI ONS ? Benign appearing endometrial cells on Pap tests are usually a normal ? finding in women with regular menstrual cycles, especially if the Pap test was ?? collected during the first half of the menstrual cycle. ? There is data showing that endometrial cells on Pap tests may be associated with endometrial/uterin e abnormalities in post menopausal women or in perimenopausal women with abnormal bleeding. ? There is limited data on the significance of benign endometrial cells in post ?? menopausal women on HRT. ??Clinical correlation is recommended. ? Note: ??The Pap test is not an accurate test for the screening of endometrial ? lesions and should not be used as a follow up in patients with clinical ? suspicion of endometrial pathology. ? Document reviewed and electronically signed by: ? Lynan Jasvir, CT(ASCP) ? Report Date: ??01/30/2008 10:22 ? End of Report ? ED [facility] 01/22/2008 01/24/2008 us Juve Dawkins MD PATHOLOGY ORDERABLES Final Resu lt [facility] [address] [place] [address] documented in this encounter Visit Diagnoses Not on filedocumented in this encounter
--- OUTSIDE RECORDS SUMMARY | 2024-05-26 12:46 | XMS_ITS | Encounter Summary ---
Author Organization [facility] Address [address] [place] [address] Care Team Providers Care Court Bailiff Or Sheriff Name Role Phone Unavailable Primary Care Provider Unavailabl e Encounter Details Date Type Department Care Team (Late st Contact Info) Description 05/21/2001 Results Only [facility] [address] [place] [address] Glenny Feliciano, RESEARCH PROGRAM MANAGER [address] [place] [address] Social History Tobacco Use Types [...] Priority Date/Time Associated Diagnosis Comments CYTOPATHOLOGY Routine 05/21/2001 0:00 EST documented in this encounter Results * CYTOPATHOLOGY (05/21/2001 0:00 EST) Pathology Report: CYTOPATHOLOGY REPORT Reports generated via electronic interface contain original data; however they are lacking the format of the original report. Caution should be taken when reading/interpreti ng unformatted reports. Name: ? MARY BETH HICKEY ? Accession #: ? [id number] : ? 1960 (Age: 40) ??F ?Collect Date: ? 05/21/2001 Location: ? [facility] ? Receive Date: ? 05/23/2001 Provider: ?GLENNY FELICIANO RESEARCH PROGRAM MANAGER Copy to: ? Specimen/Source: ?ThinPrep Pap Test, Cervix/Endocervix Last Menstrual Period: ? 05/11/01 ? SPECIMEN ADEQUACY ? Satisfactory for evaluation but limited by scant squamous epithelial component secondary to excessive blood. GENERAL CATEGORIZATION ? Within Normal Limits ? Document reviewed and electronically signed by: ? DARIUSZ Hirsch(ASCP) ? Report Date: ??05/29/2001 07:46 End of Report [facility] 05/21/2001 05/23/2001 us Glenny Feliciano NP PATHOLOGY ORDERABLES Final Result [facility] [address] [place] [address] documented in this encounter Visit Diagnoses Not on filedocumented in this encounter
--- OUTSIDE RECORDS SUMMARY | 2024-05-26 12:46 | XMS_ITS | Encounter Summary ---
Author Organization [facility] Address [address] [place] [address] Care Team Providers Care Outdoor Fitness Trainer Name Role Phone Unavailable Primary Care Provider Unavailabl e Encounter Details Date Type Department Care Team (Late st Contact Info) Description 07/15/2009 Orders Only [facility] - [facility] ([facility] [address], [place] [id number] Glenny Feliciano, POLICE DISTRICT SWITCHBOARD OPERATOR [address] [place] [address] Social History Tobacco Use Types [...] Procedure Name Priority Date/Time Associated Diagnosis Comments HPV DETECTION, HIGH RISK TYPES Routine 07/15/2009 11:29 EST CYTOPATHOLOGY Routine 07/15/2009 0:00 EST documented in this encounter Results * HUMAN PAPILLOMA VIRUS DNA TEST (07/15/2009 11:29 EST) Specimen Description Cervix, ThinPrep vial [facility] Result Negative for HPV types 16, 18, 31, 33, 35, 39, 45, 51, 52, 56, 58, 59, and 68. [facility] Report Status Final 07/29/2009 [facility] 07/15/2009 11:2 9 EST 07/22/2009 11:29 EST us Glenny Feliciano NP MICROBIOLOGY - GENERAL [facility] CHO Final Result [facility] [address] [place] [address] * CYTOPATHOLOGY (07/15/2009 0:00 EST) Pathology Report: CYTOPATHOLOGY REPORT ? Reports generated via electronic interface contain original data; ? however they are lacking the format of the original report. ? Caution should be taken when reading/interpreti ng unformatted reports. ? Name: ? MARY BETH HICKEY ? Accession #: ? [id number] ? : ? 1960 (Age: 48) ??F ?Collect Date: ? 07/15/2009 ? Location: ? [facility] ? Receive Date: ? 07/19/2009 ? Provider: ?GLENNY L FELICIANO POLICE DISTRICT SWITCHBOARD OPERATOR ? Copy to: ? Specimen/Source: ?Pap Test, Cervix, ThinPrep Imaging System with manual ?? evaluation ? Last Menstrual Period: ? 8/09 ? Other: ? HPVDX - HPV testing requested regardless of diagnosis on current ThinPrep Pap ?? test. ? SPECIMEN ADEQUACY ? Satisfactory for Evaluation ? - transformation zone component present ? GENERAL CATEGORIZATION ? Negative for Intraepithelial Lesion or Malignancy ? INTERPRETATION ? Reactive cellular changes associated with inflammation present (includes ?? repair). ? Document reviewed and electronically signed by: ? ABDELMONEM ELHOSSEINY MD ? Report Date: ??07/21/2009 13:41 ? End of Report ? [facility] 07/15/2009 07/19/2009 us Glenny Feliciano NP PATHOLOGY ORDERABLES Final Result [facility] [address] [place] [address] documented in this encounter Visit Diagnoses Not on filedocumented in this encounter
[2024-05-26 13:51] LABS: Troponin I 5 ng/L (<or=51)
--- NOTE | 2024-05-26 14:05 | ED.GENADUL_ITS ---
Discharge Plan Disposition Patient Disposition: Home Condition: Stable Discharge Details Clinical Impression: Periorbital ecchymosis of left eye, Traumatic ecchymosis of hand, Fall Primary Care Provider: Hai Lopez ED Provider: Katelyn Kearney Home Meds and New Rx's Prescriptions: Continued aspirin [Adult Aspirin Regimen] 81 mg tablet,delayed release (DR/EC) 81 mg PO DAILY Rx Instructions: Must be Enteric-Coated. EO albuterol sulfate 1.25 mg/3 mL solution for nebulization 1.25 mg IH QID PRN (Reason: shortness of breath or wheezing) Qty: 120 11RF Jardiance 25 mg tablet 25 mg PO DAILY Qty: 90 3RF prochlorperazine maleate 5 mg tablet See Rx Instructions PO TID PRN (Reason: nausea and vomiting; headache) Qty: 30 3RF Rx Instructions: 5-10mg orally three times a day PRN; Nurtec ODT 75 mg tablet,disintegrating 75 mg PO ONCE PRN (Reason: migraine headache) Qty: 8 5RF Rx Instructions: as a single dose; no more than 1 tab per day [place] Saline 0.65 % aerosol,spray 2 spray intranasal QID PRN (Reason: dry nasal passages) Qty: 50 1RF insulin degludec [Tresiba FlexTouch U-200] 200 unit/mL (3 mL) insulin pen See Rx Instructions subcut BID MDD 84 units Qty: 9 6RF Rx Instructions: 28 units QAM, 56 units QHS; pregabalin 150 mg capsule 150 mg PO TID PRN (Reason: pain) Qty: 270 1RF Rx Instructions: Continue (1 refill due to 6-month Rx limit as ctlld substance) fluticasone furoate 27.5 mcg/actuation spray,suspension 2 spray intranasal DAILY Qty: 9.1 1RF Rx Instructions: into each nostril ondansetron 4 mg tablet,disintegrating 4 mg PO Q8H PRN (Reason: nausea and vomiting) Qty: 30 0RF (DME) FreeStyle Coby 2 Sensor Kit See Rx Instructions .ROUTE .COMPLEX Qty: 2 11RF Dose Instruction: USE DIRECTED TO KEEP HBA1C LESS THAN 6.5% Rx Instructions: USE DIRECTED TO KEEP HBA1C LESS THAN 6.5% hydroxychloroquine 200 mg tablet 200 mg PO DAILY Qty: 90 3RF Januvia 100 mg tablet 100 mg PO DAILY Qty: 90 3RF paroxetine HCl 40 mg tablet 40 mg PO DAILY Qty: 60 0RF prazosin 5 mg capsule 5 mg PO QHS Qty: 60 0RF diazepam 10 mg tablet 10 mg PO BID PRN (Reason: anxiety) Qty: 14 0RF (DME) FreeStyle [place] 14 [place] [facility] [place] Rx Instructions .ROUTE .MEDSUPPLY Qty: 1 0RF Rx Instructions: As directed (DME) pen needle, diabetic [BD Ultra-Fine Mini Pen Needle] 31 gauge x 3/16 ne edle See Dose Instructions .ROUTE .MEDSUPPLY Qty: 100 12RF Dose Instruction: As directed Rx Instructions: As directed acetaminophen [Acetaminophen Extra Strength] 500 mg tablet 1,000 mg PO Q6H PRN Aimovig Autoinjector 140 mg/mL auto-injector 140 mg subcut QMONTH Qty: 1 11RF glucagon 3 mg/actuation spray,non-aerosol 3 mg intranasal ONCE MDD 3 mg PRN (Reason: Blood sugar less than 60, not responding to oral) Qty: 1 0RF Rx Instructions: as a single dose insulin lispro [Humalog KwikPen Insulin] 100 unit/mL insulin pen See Rx Instructions SC TID MDD 27 units Qty: 15 3RF Rx Instructions: Take 2 units for for every 30G carbs. Sliding scale 141-160 1 unit,161-180 2units,181-200 3 units,201-220 4 units,221-240 5 units, 241-260 6 units, 261-280 7 units, 281-300 8units, 300 or higher 9 units and call MD( [facility] ENDOCCRINOLOGY SLIDING SCALE) albuterol sulfate [Ventolin HFA] 90 mcg/actuation HFA aerosol inhaler 2 puff inhalation Q6H PRN (Reason: shortness of breath or wheezing) Qty: 8.5 6RF pantoprazole 40 mg tablet,delayed release (DR/EC) 40 mg PO DAILY Qty: 90 3RF lisinopril 20 mg tablet 20 mg PO DAILY Qty: 90 3RF Rx Instructions: to lower blood pressure under 130/85 amoxicillin 500 mg tablet 500 mg PO QID Patient Comments: TAKE TWO TABLETS BY MOUTH NOW, THEN FOUR TIMES DAILY UNTIL GONE Rx Instructions: 3 days left Discharge Instructions Instructions: [facility] Additional Instructions: Please follow-up with your doctor for Holter monitor Do not take ibuprofen, apply ice to the area around your eye Use caution at night perhaps place a commode next to her bed Please return immediately should you have an additional episode or should any new concerns arise Referrals: Hai Lopez DO [Primary Care Provider] - Discharge Data Discharge Date/Time-TO BE ENTERED AT DEPARTURE: 05/26/24 14:18 HPI General Date/Time Provider Initiated Documentation: 05/26/24 11:20 . HPI Narrative: This 63-year-old female presents with report of injury to left eye. States she woke in the morning and had black and blue I does not know what happened. Has a complex medical history does take aspirin for history of a stent in her left internal carotid artery. Has had intermittent headaches since his stent was placed but states her headache is resolving at this time. Denies any vision change denies any alcohol use currently. Denies any chest pain or shortness of breath. Denies any fevers or chills. Does not recall falling but states that she has had prior episodes of falls and losing her balance previously. She denies any history of pulmonary embolism or stroke. She did take her aspirin today but the Plavix she was on previously for the stent in her internal carotid has been discontinued. Related Data Home Medications ?Medication ?Instructions ?Recorded ?Confirmed aspirin 81 mg tablet,delayed 81 mg PO DAILY 12/26/19 05/26/24 release (Adult Aspirin Regimen) flash glucose scanning reader #1 ea 07/22/20 05/26/24 (FreeStyle Coby 14 Day Opal) pen needle, diabetic 31 gauge x #100 ea 11/03/21 05/26/24/ (BD Ultra-Fine Mini Pen Needle) fluticasone furoate 27.5 2 spray intranasal DAILY #9.1 mL 03/14/22 05/26/24 mcg/actuation nasal spray,suspension albuterol sulfate 1.25 mg/3 mL 1.25 mg (3 mL) inhalation QID PRN 07/07/22 05/26/24 solution for nebulization shortness of breath or wheezing #120 mL acetaminophen 500 mg tablet 1,000 mg PO Q6H PRN 09/18/22 05/26/24 (Acetaminophen Extra Strength) empagliflozin 25 mg tablet 25 mg PO DAILY #90 tabs 01/23/23 05/26/24 (Jardiance) ondansetron 4 mg disintegrating 4 mg PO Q8H PRN nausea and 04/10/23 05/26/24 tablet vomiting #30 tabs prochlorperazine maleate 5 mg See Rx Instructions PO TID PRN 08/02/23 05/26/24 tablet nausea and vomiting; headache #30 tabs rimegepant 75 mg disintegrating 75 mg PO ONCE PRN migraine 08/02/23 05/26/24 tablet (Nurtec ODT) headache #8 tabs sodium chloride 0.65 % nasal spray 2 spray intranasal QID PRN dry 08/10/23 05/26/24 aerosol ([place] Saline) nasal passages #50 mL erenumab-aooe 140 mg/mL 140 mg subcut QMONTH #1 mL 09/24/23 05/26/24 subcutaneous auto-injector (Aimovig Autoinjector) flash glucose sensor (FreeStyle #2 ea 11/06/23 05/26/24 Coby 2 Sensor kit) glucagon 3 mg/actuation nasal spray 3 mg intranasal ONCE PRN Blood 11/06/23 05/26/24 sugar less than 60, not responding to oral #1 ea insulin lispro 100 unit/mL See Rx Instructions subcut TID #15 12/06/23 05/26/24 subcutaneous pen (Humalog KwikPen mL (U-100) Insulin) hydroxychloroquine 200 mg tablet 200 mg PO DAILY #90 tabs 02/07/24 05/26/24 sitagliptin phosphate 100 mg 100 mg PO DAILY #90 tabs 02/07/24 05/26/24 tablet (Januvia) albuterol sulfate 90 mcg/actuation 2 puff inhalation Q6H PRN 02/18/24 05/26/24 aerosol inhaler (Ventolin HFA) shortness of breath or wheezing #8.5 grams pantoprazole 40 mg tablet,delayed 40 mg PO DAILY #90 tabs 03/06/24 05/26/24 release lisinopril 20 mg tablet 20 mg PO DAILY #90 tab-caps 04/11/24 05/26/24 diazepam 10 mg tablet 10 mg PO BID PRN anxiety #14 tabs 04/28/24 05/26/24 paroxetine HCl 40 mg tablet 40 mg PO DAILY #60 tabs 04/28/24 05/26/24 prazosin 5 mg capsule 5 mg PO QHS #60 caps 04/28/24 05/26/24 pregabalin 150 mg capsule 150 mg PO TID PRN pain #270 caps 05/06/24 05/26/24 insulin degludec 200 unit/mL (3 See Rx Instructions subcut BID #9 05/16/24 mL) subcutaneous pen (Tresiba mL FlexTouch U-200 insulin) amoxicillin 500 mg tablet 500 mg PO QID 05/26/24 05/26/24 Previous Rx's ?Medication ?Instructions ?Recorded flash glucose scanning reader #1 ea 07/22/20 ([employer]Style Coby 14 Day Opal) pen needle, diabetic 31 gauge x #100 ea 11/03/21 3/ (BD Ultra-Fine Mini Pen Needle) fluticasone furoate 27.5 2 spray intranasal DAILY #9.1 mL 03/14/22 mcg/actuation nasal spray,suspension albuterol sulfate 1.25 mg/3 mL 1.25 mg (3 mL) inhalation QID PRN 07/07/22 solution for nebulization shortness of breath or wheezing #120 mL empagliflozin 25 mg tablet 25 mg PO DAILY #90 tabs 01/23/23 (Jardiance) ondansetron 4 mg disintegrating 4 mg PO Q8H PRN nausea and 04/10/23 tablet vomiting #30 tabs prochlorperazine maleate 5 mg See Rx Instructions PO TID PRN 08/02/23 tablet nausea and vomiting; headache #30 tabs rimegepant 75 mg disintegrating 75 mg PO ONCE PRN migraine 08/02/23 tablet (Nurtec ODT) headache #8 tabs sodium chloride 0.65 % nasal spray 2 spray intranasal QID PRN dry 08/10/23 aerosol ([place] Saline) nasal passages #50 mL erenumab-aooe 140 mg/mL 140 mg subcut QMONTH #1 mL 09/24/23 subcutaneous auto-injector (Aimovig Autoinjector) flash glucose sensor (FreeStyle #2 ea 11/06/23 Coby 2 Sensor kit) glucagon 3 mg/actuation nasal spray 3 mg intranasal ONCE PRN Blood 11/06/23 sugar less than 60, not responding to oral #1 ea insulin lispro 100 unit/mL See Rx Instructions subcut TID #15 12/06/23 subcutaneous pen (Humalog KwikPen mL (U-100) Insulin) hydroxychloroquine 200 mg tablet 200 mg PO DAILY #90 tabs 02/07/24 sitagliptin phosphate 100 mg 100 mg PO DAILY #90 tabs 02/07/24 tablet (Januvia) albuterol sulfate 90 mcg/actuation 2 puff inhalation Q6H PRN 02/18/24 aerosol inhaler (Ventolin HFA) shortness of breath or wheezing #8.5 grams pantoprazole 40 mg tablet,delayed 40 mg PO DAILY #90 tabs 03/06/24 release lisinopril 20 mg tablet 20 mg PO DAILY #90 tab-caps 04/11/24 diazepam 10 mg tablet 10 mg PO BID PRN anxiety #14 tabs 04/28/24 paroxetine HCl 40 mg tablet 40 mg PO DAILY #60 tabs 04/28/24 prazosin 5 mg capsule 5 mg PO QHS #60 caps 04/28/24 pregabalin 150 mg capsule 150 mg PO TID PRN pain #270 caps 05/06/24 insulin degludec 200 unit/mL (3 See Rx Instructions subcut BID #9 05/16/24 mL) subcutaneous pen (Tresiba mL FlexTouch U-200 insulin) Allergies Allergy/AdvReac Type Severity Reaction Status Date / Time fluoxetine HCl (From Prozac) Allergy Intermediate rash Verified 05/26/24 11:04 metformin AdvReac Severe diarrhea Verified 05/26/24 11:04 rofecoxib (From Vioxx) AdvReac Severe bleeding Verified 05/26/24 11:04 aspirin AdvReac Intermediate GI Upset Verified 05/26/24 11:04 celecoxib (From Celebrex) AdvReac Intermediate GI Upset Verified 05/26/24 11:04 naproxen AdvReac Intermediate Stomach Verified 05/26/24 11:04 intolerance General Stated Complaint: Vascular HOSSEIN: 2 Exam Narrative Exam Narrative: Left periorbital ecchymosis, no proptosis, pupils equal round reactive to light and accommodation, ecchymosis on left forehead, no hemotympanum, no cervical spine tenderness, ecchymosis left hand, nontender, grasp intact bilaterally, neurological exam nonfocal, GCS 15, no abdominal tenderness, lungs clear to auscultation, cardiac rate rhythm regular, no calf swelling or tenderness ambulatory steady gait no additional visible evidence of trauma cn2-12 intact Course Vital Signs Vital signs: Vital Signs Temperature 37.2 C 05/26/24 11:01 Pulse 89 05/26/24 11:01 Respiratory Rate 16 05/26/24 11:01 Blood Pressure 144/83 H 05/26/24 11:01 Pulse Oximetry 92 05/26/24 11:01 Temperature 37.2 C 05/26/24 11:01 Temperature Source Oral 05/26/24 11:01 Pulse 70 05/26/24 13:19 Pulse Rhythm Regular 05/26/24 13:19 Pulse Strength Normal 05/26/24 13:19 Pulse 105 H 05/26/24 13:10 Respiratory Rate 16 05/26/24 13:19 Respiratory Effort Normal 05/26/24 13:19 Respiratory Depth Normal 05/26/24 13:19 Respiratory Pattern Normal 05/26/24 13:19 Blood Pressure 144/71 H 05/26/24 13:19 Blood Pressure Mean 95 05/26/24 13:19 Blood Pressure Position Supine 05/26/24 13:19 Pulse Oximetry 93 05/26/24 13:19 Oxygen Delivery Method Room Air 05/26/24 13:19 Oxygen Flow Rate 0 05/26/24 13:19 Pain Level 7 05/26/24 11:01 Lab/Test Results Lab/Test Results: Laboratory Tests Range/Units 05/26/24 05/26/24 11:15 13:05 WBC (4.4-10.8) 10^3/uL 6.47 RBC (3.93-5.22) 10^6/uL 5.80 H Hgb (11.2-15.7) g/dL 16.9 H Hct (36.0-46.0) % 52.3 H MCV (80-95) fL 90 MCH (27.0-33.0) pg 29.1 MCHC (32.0-36.0) % 32.3 RDW (11.7-14.6) % 15.0 H Plt Count (130-400) 10^3/uL 128 L MPV (8.0-11.0) fL 10.7 Immature Gran % % 0.5 Neutrophils % % 72.2 Lymphocytes % % 19.3 Monocytes % % 5.1 Eosinophils % % 2.0 Basophils % % 0.9 Nucleated RBC % (0.0-0.3) % 0.0 Absolute Neutrophils (1.2-6.7) 10^3/uL 4.67 Absolute Lymphocytes (1.2-3.4) 10^3/uL 1.25 Absolute Monocytes (0.1-0.8) 10^3/uL 0.33 Absolute Eosinophils (0.0-0.7) 10^3/uL 0.13 Absolute Basophils (0.0-0.2) 10^3/uL 0.06 PT (9.1-11.1) sec 10.4 INR (0.9-1.1) 1.0 Sodium (136-145) mmol/L 142 Potassium (3.5-5.1) mmol/L 4.2 Chloride (98-107) mmol/L 104 Carbon Dioxide (21.0-32.0) mmol/L 32.2 H Anion Gap (3-11) mmol/L 5.8 BUN (7-18) mg/dL 9 Creatinine (0.55-1.02) mg/dL 0.9 Est GFR (CKD-EPI 2020) (mL/min/1.73m2) 71.39 Glucose (74-106) mg/dL 222 H Calcium (8.5-10.1) mg/dL 9.1 Magnesium (1.8-2.4) mg/dL 2.1 Total Bilirubin (0.2-1.0) mg/dL 0.44 AST (15-37) U/L 15 ALT (14-59) U/L 17 Alkaline Phosphatase (46-116) U/L 119 H Troponin I (<or=51) ng/L 4 5 Total Protein (6.4-8.2) g/dL 7.7 Albumin (3.4-5.0) g/dL 3.9 Ethyl Alcohol (<10) mg/dL < 3.0 Medical Decision Making 63-year-old female presenting with left periorbital ecchymosis, unknown etiology, went to bed without any reported falls or injuries. Does not drink alcohol at this time. States sometimes she loses her balance and falls but does not remember doing so. Woke up in her bed this morning. Does endorse pain to the affected area. Denies any vision change. Has some mild headache consistent with prior migraines. Has a known stent in her left internal carotid artery secondary to aneurysm which is followed at [facility]. Given medical comorbidities and exam findings, I did order CTA head and neck without contrast, stent in left internal carotid is patent no visible signs of fracture on CT scan per radiology interpretation and discussion. At this time patient is requesting discharge home I think she stable to do so. I did consider syncope etiology of PD or dysrhythmia, however patient was observed for 4 hours in the emergency department without any obvious dysrhythmia and [place] syncope places patient at low risk. I think she stable for discharge home at this time. She is encouraged to follow-up with her doctor for an outpatient Holter and to use supportive care including Tylenol. Return precautions reviewed and patient expressed understanding, discharged home in stable condition with stable vitals Quality:SDOH Health Related Social Needs: No Data to Display PFSH All Active Problems (Updated 05/26/24 @ 14:08 by GOMEZ López) Fall (Acute) Traumatic ecchymosis of hand (Acute) Periorbital ecchymosis of left eye (Acute) Acute nightmare disorder with associated non-sleep disorder, during sleep onset (Acute) Grief reaction (Chronic) Vestibular migraine (Acute) Nocturnal hypoxia (Acute) Managed by [facility] (Sushma Burt NP) Rheumatoid arthritis (Chronic) Rheumatoid arthritis flare (Acute) Severe obstructive sleep apnea (Chronic 05/18/23) [facility] - recommend CPAP use Peroneal tendonitis of left lower extremity (Acute) Foot pain, left (Acute) Ganglion cyst of left foot (Acute) Metatarsalgia, left foot (Acute) Gastroenteritis (Acute) 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 Presumed BPV, but re-assessing. Allergic sinusitis (Acute) Acute bronchitis (Acute) Hypoglycemia (Acute) Myofascial muscle pain (Acute) Osteoarthritis of knee (Chronic) Asthma (Chronic) Diagnosed in 1993 Hyperlipidemia (Chronic) Obesity (Chronic) Hypertriglyceridemia (Chronic) Benign paroxysmal vertigo (Acute) Dr Marshall testing 2000; head CT 10/06/02 & 03/05/06; HAD IN PAST; AGAIN 02/2012; again 08/08/13 to L Chronic airway obstruction (Chronic 06/05/14) exacerbation 03/2014 [facility]; FEV1 1.6 (58& pred; 62% FVC) no response to bronchodilators Gastro-esophageal reflux disease without esophagitis (Chronic 08/25/11) responds to PPI, unable to stop 02/2017 Type 2 diabetes mellitus with hyperglycemia (Acute 10/12/15) 03/2014 hospital A1C 7%; goal A1c<7.5 Liver cirrhosis (Chronic) Chronic hepatitis (Acute 05/09/93) Essential hypertension (Chronic) Nonalcoholic steatohepatitis (BUI) (Chronic) [facility] 02/20/19. Stroke (Chronic) Depressive disorder (Chronic) Intermittent. Polyarthritis (Acute) Unspecified visual disturbance (Acute) [facility] opthalmology Unspecified visual field defects (Acute) Exophoria (Acute) Benign paroxysmal positional vertigo of right ear (Acute) Referred otalgia of right ear (Acute) Neck pain (Acute 06/29/16) Steroid-induced hyperglycemia (Acute 03/09/14) Uncontrolled type 2 diabetes mellitus without complication, with long-term current use of insulin (Chronic) Submandibular sialoadenitis (Acute 06/29/16) 06/29/16 Right flank pain (Acute 07/31/16) Other sleep disturbances (Acute 08/16/12) when back hurts and left knee/leg throb, sleep is disturbed Mechanical low back pain (Acute 08/02/08) DAILY PAIN SINCE FALL ON ICE AT WORK AUG 02, 2008 WC; re-injured 06/17/12 lifting at work; MRI 09/2012: MOD FACET ARTHROPATHY L5-S1, MILD L4-5 Tens unit 09/23/14; Functional Restor prg 07/2015 Diabetes mellitus (Chronic 04/16/14) 03/2014 hospital A1C 7%; goal A1c<7.5 Chronic rhinitis (Chronic 08/25/11) Cervicalgia (Acute 06/29/16) 06/29/16 Arthropathy, unspecified (Acute 08/25/11) marjorie knees Acute renal failure (Acute 04/06/14) Neuropathy of finger (Chronic) Intermittent vertigo (Chronic) Trigger thumb of right hand (Chronic) Medical History (Updated 05/26/24 @ 14:08 by GOMEZ López) Combined form of age-related cataract, both eyes (~02/2023) COVID (~04/2021) 11/28/22 03/19/23 Ex-smoker for more than 1 year resumed per [facility] [id number] Hepatitis C Serous otitis media Postmenopausal disorder Ongoing hot flashes. Surgical History (Updated 12/28/23 @ 16:26 by Lori Castellanos) Status post cataract extraction and insertion of intraocular lens of right eye (12/24/23) Juan Carlos Patterson MD [facility] History of laryngoscopy 04/10/19 transnasal laryngoscopy salivary gland (02/23/17) [facility], left submental ganglion wrist cyst removal x2 elbow surg x2 UGI W/ BX (10/10/17) [facility] section x3 COLONOSCOPY W/ BX (10/10/17) Family History Father Heart disease Sister COPD (chronic obstructive pulmonary disease) Obese Brother Diabetes Essential hypertension Asthma Heart disease Hypertension Brother COPD (chronic obstructive pulmonary disease) Brother Alcohol abuse Brother Neoplasm non hodgkins lymphoma Mother COPD (chronic obstructive pulmonary disease) Asthma Heart disease Hypertension Social History Smoking/Tobacco Use Status: Current every day Tobacco Type: cigarettes Tobacco: How many years used: 10 Second Hand Exposure: No Smoking risk assessment performed?: Yes Alcohol Intake: current Drug use: Never Substance use type: does not use Adopted: No Foster care: No Household members: family and other Details: mother Housing: house Number of Children: 3 Communication Needs: Corrective Lenses Do you need help understanding health information?: Rarely current occupation: [employer] Pets and animals: Yes Pets and animals: cat(s), dog(s) and bird(s) Sexually active: No Do you think of yourself as: straight/heterosexual Current gender identity: female What is your relationship status?: How often do you talk on the phone with friends or family?: three or more times per week How often do you get together with friends or relatives?: decline to answer How often do you attend denominational or christian services?: 1-3 times per year Panel score (0-1 are the most socially isolated patients): 1 What type of physical activity do you participate in: none Meg/Voodoo: None Special meg needs: No Seatbelt use: always Helmet use: Yes Helmet use: other Details: N/A Drive intox or ride w/intox cab driver: No Working smoke detector in home: Yes Fire extinguisher in home: Yes Carbon monox detector in home: Yes Do you feel safe at home: Yes Do you feel safe in your relationship?: Yes
== END 2024-05-26 14:18 | disposition home or self-care (01) ==
PROVIDERS: Emergency Provider Physician Assistant; PCP Family Medicine
DX: R51.9 Headache, unspecified (principal); S00.12XA Contusion of left eyelid and periocular area, initial encounter; S00.83XA Contusion of other part of head, initial encounter; S60.222A Contusion of left hand, initial encounter; E11.9 Type 2 diabetes mellitus without complications; Z79.82 Long term (current) use of aspirin; Z79.84 Long term (current) use of oral hypoglycemic drugs; Z79.4 Long term (current) use of insulin; W19.XXXA Unspecified fall, initial encounter
CPT/HCPCS: 36415; 70496; 70498; 80053; 93005; 99285; 70486; 71046; 80320; 83735; 84484; 85025; 85610; 93010; J3490

== ENCOUNTER 2024-07-14 22:55 | Emergency (ER) | payer MEDICAID, SELFPAY ==
--- NOTE | 2024-07-14 22:45 | RT.EKG_ITS ---
APPROVED REPORT Exam: Resting ECG Reason for Exam: dizziness Patient Location: E HR:84 bpm ECG Measurements Heart Rate 84 AXIS MO 187 P 69 QRSd 85 QRS 68 QT 359 T 181 QTc 425 Conclusion Sinus rhythm...normal P axis, V-rate 60- 99 Ventricular premature complex...V complex w/ short R-R interval Low voltage, extremity and precordial leads...extremity<0.5mV, precordial<1.0mV Nonspecific T abnormalities, inferior leads...T <-0.10mV, II III aVF There are no significant changes compared to prior EKG performed on 05/26/2024 at 11:51.
[2024-07-14 22:59] VITALS: BP 119/44; PULSE 88; RESP 22; TEMP 36.9; O2SAT 95
--- NOTE | 2024-07-14 23:01 | ED.GENADUL_ITS ---
Discharge Plan Disposition Patient Disposition: Home Condition: Stable Discharge Details Clinical Impression: Neck pain on right side, Right-sided headache, Right-sided chest pain, Disequilibrium Primary Care Provider: Hai Lopez ED Provider: Reji Murrell [place] [facility] and New Rx's Prescriptions: Continued aspirin [Adult Aspirin Regimen] 81 mg tablet,delayed release (DR/EC) 81 mg PO DAILY Rx Instructions: Must be Enteric-Coated. EO albuterol sulfate 1.25 mg/3 mL solution for nebulization 1.25 mg IH QID PRN (Reason: shortness of breath or wheezing) Qty: 120 11RF Jardiance 25 mg tablet 25 mg PO DAILY Qty: 90 3RF Nurtec ODT 75 mg tablet,disintegrating 75 mg PO ONCE PRN (Reason: migraine headache) Qty: 8 5RF Rx Instructions: as a single dose; no more than 1 tab per day Monroe Saline 0.65 % aerosol,spray 2 spray intranasal QID PRN (Reason: dry nasal passages) Qty: 50 1RF insulin degludec [Tresiba FlexTouch U-200] 200 unit/mL (3 mL) insulin pen See Rx Instructions subcut BID MDD 84 units Qty: 9 6RF Rx Instructions: 28 units QAM, 56 units QHS; pregabalin 150 mg capsule 150 mg PO TID PRN (Reason: pain) Qty: 270 1RF Rx Instructions: Continue (1 refill due to 6-month Rx limit as ctlld substance) fluticasone furoate 27.5 mcg/actuation spray,suspension 2 spray intranasal DAILY Qty: 9.1 1RF Rx Instructions: into each nostril ondansetron 4 mg tablet,disintegrating 4 mg PO Q8H PRN (Reason: nausea and vomiting) Qty: 30 0RF (DME) FreeStyle Coby 2 Sensor Kit See Rx Instructions .ROUTE .COMPLEX Qty: 2 11RF Dose Instruction: USE DIRECTED TO KEEP HBA1C LESS THAN 6.5% Rx Instructions: USE DIRECTED TO KEEP HBA1C LESS THAN 6.5% hydroxychloroquine 200 mg tablet 200 mg PO DAILY Qty: 90 3RF Januvia 100 mg tablet 100 mg PO DAILY Qty: 90 3RF paroxetine HCl 40 mg tablet 40 mg PO DAILY Qty: 60 0RF prazosin 5 mg capsule 5 mg PO QHS Qty: 60 0RF diazepam 10 mg tablet 10 mg PO QHS PRN (Reason: insomnia) Qty: 14 0RF lorazepam 1 mg tablet 1 mg PO Q8H PRN (Reason: anxiety) Qty: 20 0RF (DME) FreeStyle Coby 14 Day [place] [facility] [place] [place] See Rx Instructions .ROUTE .MEDSUPPLY Qty: 1 0RF Rx Instructions: As directed (DME) pen needle, diabetic [BD Ultra-Fine Mini Pen Needle] 31 gauge x 3/16 needle See Dose Instructions .ROUTE .MEDSUPPLY Qty: 100 12RF Dose Instruction: As directed Rx Instructions: As directed acetaminophen [Acetaminophen Extra Strength] 500 mg tablet 1,000 mg PO Q6H PRN Aimovig Autoinjector 140 mg/mL auto-injector 140 mg subcut QMONTH Qty: 1 11RF glucagon 3 mg/actuation spray,non-aerosol 3 mg intranasal ONCE MDD 3 mg PRN (Reason: Blood sugar less than 60, not responding to oral) Qty: 1 0RF Rx Instructions: as a single dose insulin lispro [Humalog KwikPen Insulin] 100 unit/mL insulin pen See Rx Instructions SC TID MDD 27 units Qty: 15 3RF Rx Instructions: Take 2 units for for every 30G carbs. Sliding scale 141-160 1 unit,161-180 2units,181-200 3 units,201-220 4 units,221-240 5 units, 241-260 6 units, 261-280 7 units, 281-300 8units, 300 or higher 9 units and call MD( [facility] ENDOCCRINOLOGY SLIDING SCALE) albuterol sulfate [Ventolin HFA] 90 mcg/actuation HFA aerosol inhaler 2 puff inhalation Q6H PRN (Reason: shortness of breath or wheezing) Qty: 8.5 6RF pantoprazole 40 mg tablet,delayed release (DR/EC) 40 mg PO DAILY Qty: 90 3RF lisinopril 20 mg tablet 20 mg PO DAILY Qty: 90 3RF Rx Instructions: to lower blood pressure under 130/85 prochlorperazine maleate 5 mg tablet 5 mg PO TID PRN (Reason: nausea and vomiting; headache) Patient Comments: 5-10mg PO PRN Discharge Instructions Additional Instructions: You were seen in the ED for sudden onset of disequilibrium, right-sided chest/neck/head pain. Your workup included an exam, laboratory studies, EKG, imaging studies all of which are reassuring with no acute pathology noted. You improved with some fluids, Zofran, morphine with resolution of most symptoms other than some right sided neck pain. Feel you are safe for discharge home to follow-up with primary care. Return to ED for any significant neurologic change, inability to ambulate, vision change, new or worsening chest pain, shortness of breath, other concerns. Referrals: Hai Lopez DO [Primary Care Provider] - [facility] General Mode of arrival: EMS . Date/Time Provider Initiated Documentation: 07/14/24 23:01 . Limitations to Documentation: no limitations . Information obtained by: patient, RN notes reviewed and old records reviewed . HPI Narrative: Patient presents to ED by ambulance with complaint of sudden onset of right- sided chest pain, right sided neck pain, right-sided headache and associated dizziness which she describes as being on a boat that is rocking as opposed to spinning sensation. Patient has history of BPPV, vestibular migraines, internal carotid aneurysm status post stent. She reports that what she is experiencing tonight seems different than what she is experienced in the past. She denies any visual change. She was able to ambulate with assistance. Denies any weakness. Denies any confusion or mental status changes. She has not been ill as of recent. Denies any shortness of breath, nausea vomiting, or abdominal pain. Patient feels pain in the right posterior lateral neck and head as well as down into the right lateral chest area. Related Data Home Medications ?Medication ?Instructions ?Recorded ?Confirmed aspirin 81 mg tablet,delayed 81 mg PO DAILY 12/26/19 07/15/24 release (Adult Aspirin Regimen) flash glucose scanning reader #1 ea 07/22/20 07/15/24 (FreeStyle Coby 14 Day [place]) pen needle, diabetic 31 gauge x #100 ea 11/03/21 07/15/2409/21 (BD Ultra-Fine Mini Pen Needle) fluticasone furoate 27.5 2 spray intranasal DAILY #9.1 mL 03/14/22 07/15/24 mcg/actuation nasal spray,suspension albuterol sulfate 1.25 mg/3 mL 1.25 mg (3 mL) inhalation QID PRN 07/07/22 07/15/24 solution for nebulization shortness of breath or wheezing #120 mL acetaminophen 500 mg tablet 1,000 mg PO Q6H PRN 09/18/22 07/15/24 (Acetaminophen Extra Strength) empagliflozin 25 mg tablet 25 mg PO DAILY #90 tabs 01/23/23 07/15/24 (Jardiance) ondansetron 4 mg disintegrating 4 mg PO Q8H PRN nausea and 04/10/23 07/15/24 tablet vomiting #30 tabs rimegepant 75 mg disintegrating 75 mg PO ONCE PRN migraine 08/02/23 07/15/24 tablet (Nurtec ODT) headache #8 tabs sodium chloride 0.65 % nasal spray 2 spray intranasal QID PRN dry 08/10/23 07/15/24 aerosol (Monroe Saline) nasal passages #50 mL erenumab-aooe 140 mg/mL 140 mg subcut QMONTH #1 mL 09/24/23 07/15/24 subcutaneous auto-injector (Aimovig Autoinjector) flash glucose sensor (FreeStyle #2 ea 11/06/23 07/15/24 Coby 2 Sensor kit) glucagon 3 mg/actuation nasal spray 3 mg intranasal ONCE PRN Blood 11/06/23 07/15/24 sugar less than 60, not responding to oral #1 ea insulin lispro 100 unit/mL See Rx Instructions subcut TID #15 12/06/23 06/02/24 subcutaneous pen (Humalog KwikPen mL (U-100) Insulin) hydroxychloroquine 200 mg tablet 200 mg PO DAILY #90 tabs 02/07/24 07/15/24 sitagliptin phosphate 100 mg 100 mg PO DAILY #90 tabs 02/07/24 07/15/24 tablet (Januvia) albuterol sulfate 90 mcg/actuation 2 puff inhalation Q6H PRN 02/18/24 07/15/24 aerosol inhaler (Ventolin HFA) shortness of breath or wheezing #8.5 grams pantoprazole 40 mg tablet,delayed 40 mg PO DAILY #90 tabs 03/06/24 07/15/24 release lisinopril 20 mg tablet 20 mg PO DAILY #90 tab-caps 04/11/24 07/15/24 paroxetine HCl 40 mg tablet 40 mg PO DAILY #60 tabs 10/21/24 01/07/25 prazosin 5 mg capsule 5 mg PO QHS #60 caps 04/28/24 07/15/24 pregabalin 150 mg capsule 150 mg PO TID PRN pain #270 caps 05/06/24 06/02/24 insulin degludec 200 unit/mL (3 See Rx Instructions subcut BID #9 05/16/24 07/15/24 mL) subcutaneous pen (Tresiba mL FlexTouch U-200 insulin) diazepam 10 mg tablet 10 mg PO QHS PRN insomnia #14 tabs 06/02/24 07/15/24 lorazepam 1 mg tablet 1 mg PO Q8H PRN anxiety #20 tabs 06/02/24 07/15/24 prochlorperazine maleate 5 mg 5 mg PO TID PRN nausea and 07/15/24 07/15/24 tablet vomiting; headache Previous Rx's ?Medication ?Instructions ?Recorded flash glucose scanning reader #1 ea 07/22/20 ([employer]riel TherapeuticsStyle Coby 14 Day [place]) pen needle, diabetic 31 gauge x #100 ea 11/03/21/ (BD Ultra-Fine Mini Pen Needle) fluticasone furoate 27.5 2 spray intranasal DAILY #9.1 mL 03/14/22 mcg/actuation nasal spray,suspension albuterol sulfate 1.25 mg/3 mL 1.25 mg (3 mL) inhalation QID PRN 07/07/22 solution for nebulization shortness of breath or wheezing #120 mL empagliflozin 25 mg tablet 25 mg PO DAILY #90 tabs 01/23/23 (Jardiance) ondansetron 4 mg disintegrating 4 mg PO Q8H PRN nausea and 04/10/23 tablet vomiting #30 tabs rimegepant 75 mg disintegrating 75 mg PO ONCE PRN migraine 08/02/23 tablet (Nurtec ODT) headache #8 tabs sodium chloride 0.65 % nasal spray 2 spray intranasal QID PRN dry 08/10/23 aerosol ([place] Saline) nasal passages #50 mL erenumab-aooe 140 mg/mL 140 mg subcut QMONTH #1 mL 09/24/23 subcutaneous auto-injector (Aimovig Autoinjector) flash glucose sensor (CoreOSyle #2 ea 11/06/23 Coby 2 Sensor kit) glucagon 3 mg/actuation nasal spray 3 mg intranasal ONCE PRN Blood 11/06/23 sugar less than 60, not responding to oral #1 ea insulin lispro 100 unit/mL See Rx Instructions subcut TID #15 12/06/23 subcutaneous pen (Humalog KwikPen mL (U-100) Insulin) hydroxychloroquine 200 mg tablet 200 mg PO DAILY #90 tabs 02/07/24 sitagliptin phosphate 100 mg 100 mg PO DAILY #90 tabs 02/07/24 tablet (Januvia) albuterol sulfate 90 mcg/actuation 2 puff inhalation Q6H PRN 02/18/24 aerosol inhaler (Ventolin HFA) shortness of breath or wheezing #8.5 grams pantoprazole 40 mg tablet,delayed 40 mg PO DAILY #90 tabs 03/06/24 release lisinopril 20 mg tablet 20 mg PO DAILY #90 tab-caps 04/11/24 paroxetine HCl 40 mg tablet 40 mg PO DAILY #60 tabs 04/28/24 prazosin 5 mg capsule 5 mg PO QHS #60 caps 04/28/24 pregabalin 150 mg capsule 150 mg PO TID PRN pain #270 caps 05/06/24 insulin degludec 200 unit/mL (3 See Rx Instructions subcut BID #9 05/16/24 mL) subcutaneous pen (Tresiba mL FlexTouch U-200 insulin) diazepam 10 mg tablet 10 mg PO QHS PRN insomnia #14 tabs 06/02/24 lorazepam 1 mg tablet 1 mg PO Q8H PRN anxiety #20 tabs 06/02/24 Allergies Allergy/AdvReac Type Severity Reaction Status Date / Time fluoxetine HCl (From Prozac) Allergy Intermediate rash Verified 06/02/24 08:56 metformin AdvReac Severe diarrhea Verified 06/02/24 08:56 rofecoxib (From Vioxx) AdvReac Severe bleeding Verified 06/02/24 08:56 aspirin AdvReac Intermediate GI Upset Verified 06/02/24 08:56 celecoxib (From Celebrex) AdvReac Intermediate GI Upset Verified 06/02/24 08:56 naproxen AdvReac Intermediate Stomach Verified 06/02/24 08:56 intolerance General HOSSEIN: 2 Review of Systems Narrative: Per HPI Exam Narrative Exam Narrative: Const: Overweight female in NAD. VS per triage. HEENT: NC/AT. Normal facial exam. Eyes: PERRL and EOMI. No nystagmus Neck: Supple. Trachea midline. Lungs: Normal respiratory effort. Lungs are clear. Cor: RRR without murmur. Good radial pulses. GI: Soft/ND/NT. Neuro: A+O x 3. Normal speech, mentation. Cranial nerves II - XII grossly intact. No gross motor or sensory deficit. Ext: No C/C/E. Medical Decision Making Patient presenting to ED by ambulance from home with onset of right sided chest, neck, head pain with associated dizziness described as a rocking sensation not spinning. She is reporting that she has not had this previously though she has documentation of BPPV, vestibular migraine, previous right-sided head and neck pain. She was found to have a left internal carotid artery aneurysm which was stented in 2022. She has no focal neurologic findings currently. She has no nystagmus. She is rating the chest and neck pain as moderate in nature. Have to consider possibility of dissection though her blood pressure is completely normal on arrival. Her EKG is sinus rhythm with low voltage nonspecific ST changes but pretty much unchanged from previous per my read. IV ordered so that we can obtain head and neck CTA as well as chest abdomen CTA. Morphine and Zofran ordered. Laboratory studies ordered. Patient's laboratory studies are unremarkable. Glucose a little high at 263 otherwise CBC and CMP with no significant abnormalities. Initial troponin is negative. CTA of head and neck has been completed and read. There is no evidence of acute vascular pathology, specifically no evidence of dissection. There is no bleed. Her left ICA stent is patent. Pain improved with small dose of morphine. CTA of chest and abdomen and second troponin pending. CTA of chest and abdomen with no acute vascular pathology. Repeat troponin remains flat at 5. Patient reports she feels better though still with a little bit of right-sided neck pain, headache and chest pain have resolved. Given previous history with negative workup and improved symptoms and patient will plan to ambulate in the ED and if no issues will plan discharge to follow-up with primary care and/or neurology as outpatient. Medical Records Medical records reviewed: Yes I reviewed the patient's medical records. Medical records narrative: neuro notes, PCP notes, diagnostic studies Imaging Data Radiologic Study: Imaging: CT Scan Radiologist's impression: Prelim Reads per [facility] Head CTA - IMPRESSION: No acute vascular findings. Neck CTA - IMPRESSION: No acute vascular findings. Chest/Abd CTA - IMPRESSION: 1. Atherosclerotic aorta. No aneurysm or acute aortic syndrome. 2. Borderline splenomegaly. Lab Data Lab results reviewed: Yes I reviewed the patient's lab results. Lab results narrative: see MDM ECG Data Attestation: I personally reviewed and interpreted this ECG (s) as follows: Prior ECG tracings: available for review Interpretation: see EKG/MDM Critical Care Time Critical Care Time Critical Care Time: Yes Total Critical Care Time: 60 Attestation: Upon my evaluation, this patient had a high probability of imminent or life- threatening deterioration, which required my direct attention, intervention, and personal management. I have personally provided 60 minutes of critical care time exclusive of time spent on separately billable procedures. Time includes monitoring for potential decompensation, ordering of tests and medications, review of laboratory and radiology results, discussion with consultants and documentation . Interventions were performed as documented above in procedures. PFSH All Active Problems (Updated 07/15/24 @ 01:40 by Reji Murrell MD) Disequilibrium (Acute) Right-sided chest pain (Acute) Right-sided headache (Acute) Neck pain on right side (Acute) Postmenopausal disorder (Acute) Ongoing hot flashes. Acute nightmare disorder with associated non-sleep disorder, during sleep onset (Acute) Grief reaction (Chronic) Peroneal tendonitis of left lower extremity (Acute) Foot pain, left (Acute) Ganglion cyst of left foot (Acute) Metatarsalgia, left foot (Acute) Tobacco use disorder (Acute) Vertigo (Acute) Cataract (Chronic 11/28/23) Age-related nuclear cataract (H25.13) History of stroke (Acute) Sensorineural hearing loss (SNHL) of both ears (Acute) Allergic sinusitis (Acute) Myofascial muscle pain (Acute) Osteoarthritis of knee (Chronic) Asthma (Chronic) Diagnosed in 1993 Obesity (Chronic) Hypertriglyceridemia (Chronic) Gastro-esophageal reflux disease without esophagitis (Chronic 08/25/11) responds to PPI, unable to stop 02/2017 Type 2 diabetes mellitus with hyperglycemia (Acute 10/12/15) 03/2014 hospital A1C 7%; goal A1c<7.5 Liver cirrhosis (Chronic) Chronic hepatitis (Acute 05/09/93) Stroke (Chronic) Depressive disorder (Chronic) Intermittent. Polyarthritis (Acute) Unspecified visual disturbance (Acute) [facility] opthalmology Unspecified visual field defects (Acute) Exophoria (Acute) Benign paroxysmal positional vertigo of right ear (Acute) Referred otalgia of right ear (Acute) Neck pain (Acute 06/29/16) Steroid-induced hyperglycemia (Acute 03/09/14) Other sleep disturbances (Acute 08/16/12) when back hurts and left knee/leg throb, sleep is disturbed Mechanical low back pain (Acute 08/02/08) DAILY PAIN SINCE FALL ON ICE AT WORK AUG 02, 2008 WC; re-injured 06/17/12 lifting at work; MRI 09/2012: MOD FACET ARTHROPATHY L5-S1, MILD L4-5 Tens unit 09/23/14; Functional Restor prg 07/2015 Diabetes mellitus (Chronic 04/16/14) 03/2014 hospital A1C 7%; goal A1c<7.5 Chronic rhinitis (Chronic 08/25/11) Cervicalgia (Acute 06/29/16) 06/29/16 Arthropathy, unspecified (Acute 08/25/11) marjorie knees Neuropathy of finger (Chronic) Intermittent vertigo (Chronic) Trigger thumb of right hand (Chronic) Medical History Uncontrolled type 2 diabetes mellitus without complication, with long-term current use of insulin Nonalcoholic steatohepatitis (BUI) [place]o, [facility] 02/20/19. Essential hypertension Chronic airway obstruction (06/05/14) exacerbation 03/2014 [facility]; FEV1 1.6 (58& pred; 62% FVC) no response to bronchodilators Balance disorder Episodes of ataxic gait, per pt report (as if drunk), and veering off-road x1. Presumed BPV, but re-assessing. Benign paroxysmal vertigo Dr Marshall testing 2000; head CT 10/06/02 & 03/05/06; HAD IN PAST; AGAIN 02/2012; again 08/08/13 to L Cerebral aneurysm (04/28/22) LICA Hyperlipidemia Vestibular migraine Nocturnal hypoxia Managed by [facility] (Sushma Burt NP) Severe obstructive sleep apnea (05/18/23) [facility] - recommend CPAP use Rheumatoid arthritis Hepatitis C Surgical History Internal carotid artery stent present Status post cataract extraction and insertion of intraocular lens of right eye (12/24/23) Juan Carlos Patterson MD [facility] History of laryngoscopy 04/10/19 transnasal laryngoscopy salivary gland (02/23/17) [facility], left submental ganglion wrist cyst removal x2 elbow surg x2 UGI W/ BX (10/10/17) [facility] section x3 COLONOSCOPY W/ BX (10/10/17) Family History Father Heart disease Sister COPD (chronic obstructive pulmonary disease) Obese Brother Diabetes Essential hypertension Asthma Heart disease Hypertension Brother COPD (chronic obstructive pulmonary disease) Brother Alcohol abuse Brother Neoplasm non hodgkins lymphoma Mother COPD (chronic obstructive pulmonary disease) Asthma Heart disease Hypertension Social History Smoking/Tobacco Use Status: Current every day Tobacco Type: cigarettes Tobacco: How many years used: 10 Second Hand Exposure: No Smoking risk assessment performed?: Yes Alcohol Intake: former Drug use: Never Substance use type: does not use Adopted: No Foster care: No Household members: family and other Details: mother Housing: house Number of Children: 3 Communication Needs: Corrective Lenses Do you need help understanding health information?: Rarely 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 Pets and animals: Yes Pets and animals: cat(s), dog(s) and bird(s) Sexually active: No Do you think of yourself as: straight/heterosexual Current gender identity: female What is your relationship status?: How often do you talk on the phone with friends or family?: three or more times per week How often do you get together with friends or relatives?: decline to answer How often do you attend restoration or confucianist services?: 1-3 times per year Panel score (0-1 are the most socially isolated patients): 1 What type of physical activity do you participate in: none Meg/Taoist: None Special meg needs: No Seatbelt use: always Helmet use: Yes Helmet use: other Details: N/A Drive intox or ride w/intox driver education road instructor: No Working smoke detector in home: Yes Fire extinguisher in home: Yes Carbon monox detector in home: Yes Do you feel safe at home: Yes Do you feel safe in your relationship?: Yes
[2024-07-14 23:09] VITALS: BP 123/49; PULSE 86; RESP 18; RESP 22; TEMP 36.6; O2SAT 92
--- NOTE | 2024-07-14 23:15 | DI.CT_ITS ---
Exam(s) CT BRAIN NECK CTA EXAM: CT BRAIN NECK CTA CLINICAL HISTORY: right side neck/head pain; vertigo. TECHNIQUE: Imaging Protocol: Axial CT angiography was performed with multi-slice acquisition and mu lti-planar and/or 3D reconstructions. CONTRAST MATERIAL: Intravenous: Omnipaque 350 contrast volume:70 mL COMPARISON: CT CT BRAIN NECK CTA from 05/26/2024 FINDINGS: CT Head W/O and W: Ventricles and Extra axial spaces: Normal in size and morphology for the patient's age. Hemorrhage: None. Cerebral parenchyma: No evidence of an acute territorial infarct. No mass effect. Midline shift: None. Brainstem/Cerebellum: Normal. Calvarium: Normal. Visualized Paranasal sinuses/Mastoids: Clear. Soft Tissues: Unremarkable. Enhancement: Unremarkable. CTA Neck W: Common Carotid: Right: No dissection, occlusion or significant stenosis. Mild atherosclerotic calcification is seen in the distal common carotid artery in the carotid bulb. Left: No dissection, occlusion or significant stenosis. Mild atherosclerotic calcification is seen i n the carotid bulb. External Carotid: Right: No occlusion or significant stenosis. Left: No occlusion or significant stenosis. Internal Carotid: Right: No dissection, occlusion or significant stenosis. Mild calcification is seen in the proximal right internal carotid artery. Left: No dissection, occlusion or significant stenosis. Vertebral Artery: Right: No dissection, occlusion or significant stenosis. Left: No dissection, occlusion or significant stenosis. Mild atherosclerotic calcification at the or igin of the left vertebral artery. Lung Apices: Centrilobular emphysematous changes are present. Bones: Within normal limits for the patient's age. Soft Tissues: There is absence of the left submandibular gland. Thyroid gland: Unremarkable. CTA Brain W: Internal Carotid Arteries: There is a stent seen in the left internal carotid artery. There is again seen a curvilinear calcification adjacent to the stent which may represent a periphery calcified ane urysm. There is no filling of the aneurysm noted on this examination. The internal carotid arteries are otherwise unremarkable. Anterior Cerebral Arteries: Right: No aneurysm, occlusion or significant stenosis. Left: No aneurysm, occlusion or significant stenosis. Middle Cerebral Arteries: Right: No aneurysm, occlusion or significant stenosis. Left: No aneurysm, occlusion or significant stenosis. Posterior Cerebral Arteries: Right: No aneurysm, occlusion or significant stenosis. Left: No aneurysm, occlusion or significant stenosis. Vertebral Arteries: Right: No aneurysm, occlusion or significant stenosis. Left: No aneurysm, occlusion or significant stenosis. Basilar Artery: No aneurysm, occlusion or significant stenosis. IMPRESSION: 1. No large vessel occlusion or significant stenosis on the CT angiography of the head. 2. No acute intracranial process. 3. No occlusion or significant stenosis on the CT angiography of the neck. RADIATION DOSE DELIVERED: 2,121.73mGy.cm Total DLP DATA REPOSITORY: All CT scans at this facility are submitted to the National Radiology Data Registry (NRDR) Dose Index Registry (DIR) with the [employer] (ACR). RADIATION OPTIMIZATION: All CT scans at this facility use at least one of these dose optimization te chniques: automated exposure control; mA and/or kV adjustment per patient size (includes targeted exa ms where dose is matched to clinical indication); or iterative reconstruction.
--- NOTE | 2024-07-14 23:15 | DI.CT_ITS ---
Exam(s) CT THORAX ABDOMEN CTA EXAM: CT THORAX ABDOMEN CTA CLINICAL HISTORY: right side chest pain/vertigo. TECHNIQUE: Imaging Protocol: Axial CT angiography was performed with multi-slice acquisition and m ulti-planar and/or 3D reconstructions. Lung Computer Aided Detection (CAD) was utilized. CONTRAST MATERIAL: Intravenous: Omnipaque 350 contrast volume:100 mL Oral: No COMPARISON: CT CT ABDOMEN PELVIS W from 04/11/2023 FINDINGS: CHEST: Tracheobronchial tree: Patent where visualized. There is no evidence of bronchiectasis. Pulmonary parenchyma: No consolidation or dominant measurable mass. There is mild dependent atelectas is. Mild centrilobular emphysematous changes are present. There is a 3 mm nodule in the right middl e lobe. Pulmonary Arteries: There is no evidence of a pulmonary embolism. Mediastinum and [place]: No dominant adenopathy or fluid collection. The esophagus is unremarkable. Visualized thyroid: Unremarkable. Pleura: No effusion or pneumothorax. Heart: The heart is not dilated. Coronary artery calcification is present. No pericardial effusion. Aorta: Thoracic aorta non-dilated. Mild atherosclerotic calcification is present. There is no eviden ce of aneurysm or dissection. Soft Tissues: Unremarkable. Bones: Within normal limits for the patient's age. ABDOMEN AND PELVIS: Abdomen: Celiac axis/mesenteric arteries: No evidence of occlusion or significant stenosis. Renal Arteries: No evidence of occlusion or significant stenosis. There is a single renal artery per fusing each kidney. Aorta: No evidence of occlusion or significant stenosis. No aneurysm or dissection. Mild atheroscl erotic calcification is seen. Pelvis: Iliac Arteries: No evidence of occlusion or significant stenosis. ABDOMEN: Liver: Normal density. No measurable mass. The liver measures 19 cm long. Portal, superior mesenteric and splenic veins: Gallbladder and Biliary Tract: No radiodense calculus or dilation. Pancreas: Normal density, no abnormal calcifications or inflammatory process. Spleen: The spleen measures 13.4 cm long. Adrenals: No masses seen. Kidneys: Normal size, contour and axis. No radiodense stones or obstructive uropathy. No masses seen. Bowel: There is diverticulosis seen in the colon. No evidence of acute diverticulitis is seen. No b owel wall thickening or obstruction is present. The visualized portions of the appendix are unremark able. Peritoneal Cavity: No ascites, collection or mesenteric inflammatory response. No free air. Lymph Nodes: Within normal limits. Bones: Within normal limits for the patient's age. Soft Tissues: Unremarkable. IMPRESSION: 1. No evidence of pulmonary embolism, thoracic aortic dissection or aneurysm. 2. No evidence of abdominal aneurysm or dissection. 3. No acute pulmonary process. 4. Mild hepatosplenomegaly. 5. No acute abdominal process. 6. 3 mm nodule in the right middle lobe. Solid nodules smaller than 6 mm do not require routine follow-up in all patients with high clinical r isk; however, some nodules smaller than 6 mm with suspicious morphology, upper lobe location, or both may warrant follow-up at 12 months (grade 2A; weak recommendation, high-quality evidence). (Lavelle et al., 2017) Single solid noncalcified nodules. ???Solid nodules smaller than 6 mm (those 5 mm or smaller) do not require routine follow-up in patients at low risk (grade 1C; strong recommendation, low- or very-low- quality evidence). (Lavelle et al., 2017) RADIATION DOSE DELIVERED: 639.56mGy.cm Total DLP DATA REPOSITORY: All CT scans at this facility are submitted to the National Radiology Data Registry (NRDR) Dose Index Registry (DIR) with the [employer] (A[employer]). RADIATION OPTIMIZATION: All CT scans at this facility use at least one of these dose optimization te chniques: automated exposure control; mA and/or kV adjustment per patient size (includes targeted exa ms where dose is matched to clinical indication); or iterative reconstruction.
[2024-07-14 23:44] LABS: Abs Immature Grans 0.03 10^3/uL (0.0-0.06); Absolute Basophil Count 0.04 10^3/uL (0.0-0.2); Absolute Eosinophil Count 0.12 10^3/uL (0.0-0.7); Absolute Lymphocyte Count 1.87 10^3/uL (1.2-3.4); Absolute Monocyte Count 0.38 10^3/uL (0.1-0.8); Absolute Neutrophil Count 4.65 10^3/uL (1.2-6.7); Basophils % 0.6 %; Eosinophils % 1.7 %; HCT 44.9 % (36.0-46.0); Immature Grans % 0.4 %; Lymphocytes % 26.4 %; MCH 29.9 pg (27.0-33.0); MCHC 33.4 % (32.0-36.0); MCV 89 fL (80-95); MPV 11.1 fL (8.0-11.0); Monocytes % 5.4 %; Neutrophils % 65.5 %; Platelet Count 130 10^3/uL (130-400); RBC 5.02 10^6/uL (3.93-5.22); RDW 14.3 % (11.7-14.6); RDW-SD 46.1 fL; WBC 7.09 10^3/uL (4.4-10.8)
[2024-07-14] MEDS: MORPHine 10 MG/ML VIAL 2 MG IVP (23:48)
[2024-07-14 23:49] VITALS: BP 99/41; O2SAT 94
[2024-07-14] MEDS: Ondansetron 4 MG/2 ML VIAL IVP (23:49)
[2024-07-14] MEDS: Omnipaque 350 MG/ML 100 ML BTL IJ (23:53)
[2024-07-14 23:54] LABS: PTT Activated 24.5 sec (23.6-32.8); Prothrombin Time 10.3 sec (9.1-11.1)
[2024-07-15] VITALS (53 sets, daily range): BP systolic 75–113; BP diastolic 43–71; PULSE 72–83; RESP 10–30; TEMP 36.6; O2SAT 92–97
[2024-07-15] LABS: ALT 19 U/L (14-59); AST 15 U/L (15-37); Albumin 3.6 g/dL (3.4-5.0); Alkaline Phosphatase 111 U/L (46-116); Anion Gap 3.6 mmol/L (3-11); BUN 13 mg/dL (7-18); Bilirubin, Total 0.33 mg/dL (0.2-1.0); CO2 32.4 mmol/L (21.0-32.0); CREATININE 1.1 mg/dL (0.55-1.02); Calcium 8.4 mg/dL (8.5-10.1); Chloride 104 mmol/L (98-107); Estimated GFR 56.11 (mL/min/1.73m2); Glucose 263 mg/dL (74-106); Magnesium 1.9 mg/dL (1.8-2.4); Potassium 3.5 mmol/L (3.5-5.1); Sodium 140 mmol/L (136-145); Total Protein 6.6 g/dL (6.4-8.2)
[2024-07-15 00:06] LABS: Troponin I 5 ng/L (<or=51)
[2024-07-15] MEDS: Normal Saline - Diluent 50 ML VIAL IJ ×2 (00:18→00:25)
[2024-07-15] MEDS: Omnipaque 350 MG/ML 100 ML BTL IJ (00:23)
[2024-07-15] MEDS: Normal Saline Flush 10 ML SYR IVP (00:27)
[2024-07-15] MEDS: Lactated Ringers 1,000 ML 125 ML IV (00:31)
--- NOTE | 2024-07-15 00:42 | DI.VRAD_ITS ---
PROCEDURE INFORMATION: Exam: CTA Head Without And With Contrast, Arteriography Exam date and time: 07/15/2024 12:01 AM Age: 63 years old Clinical indication: Stroke-like symptoms; Dizziness/giddiness; Additional info: Right side neck/head pain; Vertigo TECHNIQUE: Imaging protocol: Computed tomographic angiography of the head without and with contrast. Exam focused on the arteries. 3D rendering (Not supervised by radiologist): MIP and/or 3D reconstructed images were created by the technologist. Radiation optimization: All CT scans at this facility use at least one of these dose optimization techniques: automated exposure control; mA and/or kV adjustment per patient size (includes targeted exams where dose is matched to clinical indication); or iterative reconstruction. Contrast material: OMNIPAQUE 350; Contrast volume: 70 ml; Contrast route: INTRAVENOUS (IV); Other technique: STROKE PROTOCOL was implemented. COMPARISON: CT BRAIN NECK CTA 05/26/2024 12:06 PM FINDINGS: ANTERIOR CIRCULATION: Right internal carotid artery: Intracranial segment is patent with no significant stenosis or occlusion. No aneurysm. Right middle cerebral artery: No occlusion or significant stenosis. No aneurysm. Right anterior cerebral artery: No occlusion or significant stenosis. No aneurysm. Left internal carotid artery: Left internal carotid artery stent is patent. Left middle cerebral artery: No occlusion or significant stenosis. No aneurysm. Left anterior cerebral artery: No occlusion or significant stenosis. No aneurysm. POSTERIOR CIRCULATION: Right vertebral artery: No occlusion or significant stenosis. No aneurysm. Left vertebral artery: No occlusion or significant stenosis. No aneurysm. Basilar artery: No occlusion or significant stenosis. No aneurysm. Right posterior cerebral artery: No occlusion or significant stenosis. No aneurysm. Left posterior cerebral artery: No occlusion or significant stenosis. No aneurysm. HEAD: Brain: Normal. No hemorrhage. Unremarkable white matter. No mass effect. Cerebral ventricles: Normal. No ventriculomegaly. Bones: Unremarkable. No acute fracture. Paranasal sinuses: Visualized sinuses are normal. No fluid levels. Mastoid air cells: Visualized mastoids are normal. No mastoid effusion. Soft tissues: Unremarkable. IMPRESSION: No acute vascular findings. PROCEDURE INFORMATION: Exam: CTA Neck Without And With Contrast Exam date and time: 07/15/2024 12:01 AM Age: 63 years old Clinical indication: Stroke-like symptoms; Dizziness/giddiness; Additional info: Right side neck/head pain; Vertigo TECHNIQUE: Imaging protocol: Computed tomographic angiography of the neck without and with contrast. Exam focused on the cervical segments of the vasculature. 3D rendering (Not supervised by radiologist): MIP and/or 3D reconstructed images were created by the technologist. Radiation optimization: All CT scans at this facility use at least one of these dose optimization techniques: automated exposure control; mA and/or kV adjustment per patient size (includes targeted exams where dose is matched to clinical indication); or iterative reconstruction. Contrast material: OMNIPAQUE 350; Contrast volume: 70 ml; Contrast route: INTRAVENOUS (IV); COMPARISON: CT BRAIN NECK CTA 05/26/2024 12:06 PM FINDINGS: Right common carotid artery: Atherosclerosis of the right carotid bulb and proximal right internal carotid artery without significant luminal narrowing. No thrombosis or occlusion. Right internal carotid artery: See Right common carotid artery finding. Right external carotid artery: No occlusion or stenosis of the origin. Left common carotid artery: Atherosclerosis of the left carotid bulb and proximal left internal carotid artery without significant luminal narrowing. No thrombosis or occlusion. Left internal carotid artery: See Left common carotid artery finding. Left external carotid artery: No occlusion or stenosis of the origin. Right vertebral artery: No stenosis. No dissection or occlusion. Left vertebral artery: No stenosis. No dissection or occlusion. Soft tissues: Normal. No significant soft tissue swelling. Bones/joints: No acute fracture. Lungs: Increased visualized subtle dependent ground-glass opacities in both lungs is most likely atelectasis. Other findings: Emphysema. IMPRESSION: No acute vascular findings. REFERENCES: NASCET CRITERIA. The degree of stenosis in the cervical segment of the internal carotid artery is based on NASCET criteria. Normal is no stenosis. Mild is less than 50% stenosis. Moderate is 50-69% stenosis. Severe is 70% to 99% stenosis. Total occlusion is no detectable patent lumen. Dictated and Authenticated by: Shravan Segura MD. Ordering:RUBA Mendoza MD
[2024-07-15 00:54] LABS: Troponin I 5 ng/L (<or=51)
--- NOTE | 2024-07-15 01:18 | DI.VRAD_ITS ---
PROCEDURE INFORMATION: Exam: CTA Chest With Contrast CTA Abdomen With Contrast Exam date and time: 07/15/2024 12:11 AM Age: 63 years old Clinical indication: Right-sided; Abdominal pain; Generalized; Patient HX: Right side neck/head pain; Vertigo TECHNIQUE: Imaging protocol: Computed tomographic angiography of the chest with contrast. Exam focused on the arteries. Computed tomographic angiography of the abdomen with contrast. Exam focused on the arteries. 3D rendering (Not supervised by radiologist): MIP and/or 3D reconstructed images were created by the technologist. Radiation optimization: All CT scans at this facility use at least one of these dose optimization techniques: automated exposure control; mA and/or kV adjustment per patient size (includes targeted exams where dose is matched to clinical indication); or iterative reconstruction. Contrast material: OMNIPAQUE 350; Contrast volume: 100 ml; Contrast route: INTRAVENOUS (IV); COMPARISON: CT CHEST PE CTA 04/25/2021 10:10 PM FINDINGS: VASCULATURE: Pulmonary arteries: Normal. No pulmonary emboli. Aorta: Atherosclerotic aorta. No aneurysm or acute aortic syndrome. Celiac trunk and mesenteric arteries: No occlusion or significant stenosis. Renal arteries: No occlusion or significant stenosis. CHEST: Lungs: Indeterminate 3 mm right middle lobe pulmonary nodule. Mild multifocal atelectasis. Lungs otherwise clear. Pleural spaces: Unremarkable. No pneumothorax. No pleural effusion. Heart: Unremarkable. No cardiomegaly. No pericardial effusion. ABDOMEN AND PELVIS: Liver: No mass. Gallbladder and biliary ducts: Unremarkable. No calcified stones. No ductal dilation. Pancreas: Unremarkable. No mass. No ductal dilation. Spleen: Borderline splenomegaly. Adrenal glands: Unremarkable. No mass. Kidneys: Unremarkable kidneys. No solid mass. No hydronephrosis. Stomach and bowel: Colonic diverticulosis. No diverticulitis. No bowel wall thickening or intestinal obstruction. Intraperitoneal space: Unremarkable. No free air. No significant fluid collection. Lymph nodes: Unremarkable. No enlarged lymph nodes. Bones/joints: Unremarkable. No acute fracture. Soft tissues: Unremarkable. Other findings: Minimal emphysema. IMPRESSION: 1. Atherosclerotic aorta. No aneurysm or acute aortic syndrome. 2. Borderline splenomegaly. Dictated and Authenticated by: Shravan Segura MD. Ordering:RUBA Mendoza MD
== END 2024-07-15 05:04 | disposition home or self-care (01) ==
PROVIDERS: Emergency Provider Emergency Medicine; PCP Family Medicine
DX: M54.2 Cervicalgia (principal); R51.9 Headache, unspecified; R07.9 Chest pain, unspecified; R42 Dizziness and giddiness
CPT/HCPCS: 70496; 70498; 71275; 74175; 80053; 93005; 96361; 96374; 99291; 83735; 84484; 85025; 85610; 85730; 93010; J2270; J2405; J3490

== ENCOUNTER 2024-08-07 02:46 | Outpatient (CLI) | payer MEDICAID, SELFPAY ==
--- NOTE | 2024-08-07 07:15 | DI.US_ITS ---
Exam(s) US ABDOMEN LIMITED EXAM: US ABDOMEN LIMITED CLINICAL HISTORY: Evaluate for gall stone,LIVER CIRRHOSIS,K74.60 TECHNIQUE: Ultrasound abdomen performed using standard protocol. COMPARISON: CT CT THORAX ABDOMEN CTA from 07/15/2024 FINDINGS: PANCREAS: Normal where visualized. LIVER: There is diffuse increased echogenicity of the liver consistent with fatty infiltration. Hepa topetal flow in the Portal Vein. The liver measures in 18.2 cm length. No evidence of a hepatic mass. GALLBLADDER: No evidence of cholelithiasis. No evidence of wall thickening. No pericholecystic fluid identified. BILIARY SYSTEM: Common bile duct measures < 7 mm. No intrahepatic biliary ductal dilation. GAMEZ'S SIGN: Negative. RIGHT KIDNEY: Kidney is normal in size. No evidence of renal calculi. No evidence of hydronephrosis. No renal mass or cyst identified. ASCITES: None seen. IMPRESSION: 1. No cholelithiasis. 2. Hepatic steatosis and mild hepatomegaly. DATA REPOSITORY:
== END 2024-08-07 03:06 ==
LOC: DI 02:46
PROVIDERS: PCP Family Medicine; Visit Provider Family Medicine
DX: K74.60 Unspecified cirrhosis of liver (principal)
CPT/HCPCS: 76705

== ENCOUNTER 2024-10-30 01:15 | Outpatient (CLI) | payer MEDICARE, SELFPAY ==
--- NOTE | 2024-10-30 | DI.US_ITS ---
Exam(s) US ABDOMEN LIMITED EXAM: US ABDOMEN LIMITED CLINICAL HISTORY: ADVANCED HEPATIC FIBROSIS, K74.02, HCC SURVEILLANCE TECHNIQUE: Ultrasound abdomen performed using standard protocol. COMPARISON: US US ABDOMEN LIMITED from 08/07/2024 FINDINGS: PANCREAS: Normal where visualized. LIVER: Diffuse increased echogenicity of the liver. Hepatopetal flow in the Portal Vein. The liver m easures in 18 cm length. No evidence of a hepatic mass. GALLBLADDER: No evidence of cholelithiasis. No evidence of wall thickening. No pericholecystic fluid identified. BILIARY SYSTEM: Common bile duct measures < 7 mm. No intrahepatic biliary ductal dilation. GAMEZ'S SIGN: Negative. RIGHT KIDNEY: Kidney is normal in size. No evidence of renal calculi. No evidence of hydronephrosis. No renal mass or cyst identified. ASCITES: None seen. IMPRESSION: Hepatomegaly and hepatic steatosis. DATA REPOSITORY:
== END 2024-10-30 01:35 ==
LOC: DI 01:15
PROVIDERS: PCP Family Medicine; Visit Provider Internal Medicine
DX: R16.0 Hepatomegaly, not elsewhere classified (principal); K76.0 Fatty (change of) liver, not elsewhere classified
CPT/HCPCS: 76705

== ENCOUNTER 2024-11-20 21:16 | Emergency (ER) | payer MEDICARE, MEDICAID, SELFPAY ==
[2024-11-20] VITALS (24 sets, daily range): BP systolic 104–128; BP diastolic 53–73; PULSE 78–104; RESP 8–22; TEMP 36.6; O2SAT 89–94
--- NOTE | 2024-11-20 21:30 | RT.EKG_ITS ---
APPROVED REPORT Exam: Resting ECG Reason for Exam: dizzy Patient Location: E HR:98 bpm ECG Measurements Heart Rate 98 AXIS SC 184 P 33 QRSd 75 QRS 34 QT 341 T 68 QTc 437 Conclusion Sinus rhythm...normal P axis, V-rate 60- 99 Low voltage, extremity and precordial leads...extremity<0.5mV, precordial<1.0mV
--- NOTE | 2024-11-20 22:02 | ED.GENADUL_ITS ---
Discharge Plan Disposition Patient Disposition: Home Condition: Good Discharge Details Clinical Impression: Poorly controlled diabetes mellitus, JAQUAN (acute kidney injury), Dehydration, Hypomagnesemia Primary Care Provider: Hai Lopez ED Provider: Reji Murrell Medramos and New Rx's Prescriptions: Continued aspirin [Adult Aspirin Regimen] 81 mg tablet,delayed release (DR/EC) 81 mg PO DAILY Rx Instructions: Must be Enteric-Coated. EO albuterol sulfate 1.25 mg/3 mL solution for nebulization 1.25 mg IH QID PRN (Reason: shortness of breath or wheezing) Qty: 120 11RF Jardiance 25 mg tablet 25 mg PO DAILY Qty: 90 3RF [place] Saline 0.65 % aerosol,spray 2 spray intranasal QID PRN (Reason: dry nasal passages) Qty: 50 1RF insulin degludec [Tresiba FlexTouch U-200] 200 unit/mL (3 mL) insulin pen See Rx Instructions subcut BID MDD 84 units Qty: 9 6RF Rx Instructions: 28 units QAM, 56 units QHS; fluticasone furoate 27.5 mcg/actuation spray,suspension 2 spray intranasal DAILY Qty: 9.1 1RF Rx Instructions: into each nostril ondansetron 4 mg tablet,disintegrating 4 mg PO Q8H PRN (Reason: nausea and vomiting) Qty: 30 0RF Januvia 100 mg tablet 100 mg PO DAILY Qty: 90 3RF diazepam 10 mg tablet 10 mg PO QHS PRN (Reason: insomnia) Qty: 14 0RF paroxetine HCl 40 mg tablet 40 mg PO DAILY Qty: 90 2RF lorazepam 1 mg tablet 1 mg PO Q8H PRN (Reason: anxiety) Qty: 20 0RF prazosin 5 mg capsule 5 mg PO QHS Qty: 90 3RF hydroxychloroquine 200 mg tablet 200 mg PO DAILY Qty: 90 3RF Aimovig Autoinjector 140 mg/mL auto-injector 140 mg subcut QMONTH Qty: 3 3RF Nurtec ODT 75 mg tablet,disintegrating 75 mg PO ONCE PRN (Reason: migraine headache) Qty: 8 5RF Rx Instructions: as a single dose; no more than 1 tab per day pregabalin 200 mg capsule 200 mg PO TID Qty: 270 2RF (DME) FreeStyle Coby 14 Day Jameson Misc See Rx Instructions .ROUTE .MEDSUPPLY Qty: 1 0RF Rx Instructions: As directed (DME) pen needle, diabetic [BD Ultra-Fine Mini Pen Needle] 31 gauge x 3/16 needle See Dose Instructions .ROUTE .MEDSUPPLY Qty: 100 12RF Dose Instruction: As directed Rx Instructions: As directed acetaminophen [Acetaminophen Extra Strength] 500 mg tablet 1,000 mg PO Q6H PRN glucagon 3 mg/actuation spray,non-aerosol 3 mg intranasal ONCE MDD 3 mg PRN (Reason: Blood sugar less than 60, not responding to oral) Qty: 1 0RF Rx Instructions: as a single dose insulin lispro [Humalog KwikPen Insulin] 100 unit/mL insulin pen See Rx Instructions SC TID MDD 27 units Qty: 15 3RF Rx Instructions: Take 2 units for for every 30G carbs. Sliding scale 141-160 1 unit,161-180 2units,181-200 3 units,201-220 4 units,221-240 5 units, 241-260 6 units, 261-280 7 units, 281-300 8units, 300 or higher 9 units and call MD( [facility] SLIDING SCALE) albuterol sulfate [Ventolin HFA] 90 mcg/actuation HFA aerosol inhaler 2 puff inhalation Q6H PRN (Reason: shortness of breath or wheezing) Qty: 8.5 6RF pantoprazole 40 mg tablet,delayed release (DR/EC) 40 mg PO DAILY Qty: 90 3RF lisinopril 20 mg tablet 20 mg PO DAILY Qty: 90 3RF Rx Instructions: to lower blood pressure under 130/85 (DME) FreeStyle Coby 2 Sensor Kit See Rx Instructions .ROUTE .COMPLEX Qty: 2 11RF Dose Instruction: USE DIRECTED TO KEEP HBA1C LESS THAN 6.5% Rx Instructions: USE DIRECTED TO KEEP HBA1C LESS THAN 6.5% Discharge Instructions Instructions: Dehydration, Adult ED, High Blood Sugar, Adult ED Additional Instructions: Your visit to the ED today suggest poorly controlled diabetes with high blood sugar resulting in dehydration and kidney injury. You were given IV fluids as well as IV magnesium and repeat labs do show improvement. It is very important for you to work on getting your blood sugars back under control, eating a healthy diet, drinking plenty of fluids. Please follow-up with your primary care in the next 1 to 2 weeks for recheck and repeat laboratory studies. Return to ED for any syncope, neurologic change, chest pain, shortness of breath, other concerns. Referrals: Hai Lopez DO [Primary Care Provider] - [facility] General Mode of arrival: ambulatory . Date/Time Provider Initiated Documentation: 11/20/24 22:02 . Limitations to Documentation: no limitations . Information obtained by: patient, RN notes reviewed and old records reviewed . HPI Narrative: Patient presents to ED with complaint of feeling lightheaded, fatigued, not well. Reports that her coworker took her blood pressure this evening and it was very low. Patient reports that she has not been ill. She has chronic migraine headaches which are unchanged. She has had no fever, shortness of breath, chest pain. She does have a cough which she describes as chronic smoker's cough. Denies any abdominal pain, vomiting, diarrhea. Denies any urinary symptoms. Denies any neurologic symptoms. Does have history of vertigo which does not feel like this. Does report removing 3 ticks over the weekend but denies any joint pain or rash. She does report intermittent and fleeting episodes of pain that go from her chin into her neck. This discomfort lasts only seconds. Related Data Home Medications ?Medication ?Instructions ?Recorded ?Confirmed aspirin 81 mg tablet,delayed 81 mg PO DAILY 12/26/19 11/20/24 release (Adult Aspirin Regimen) flash glucose scanning reader #1 ea 07/22/20 11/20/24 (FreeStyle Coby 14 Day Jameson) pen needle, diabetic 31 gauge x #100 ea 11/03/21 11/20/24/ (BD Ultra-Fine Mini Pen Needle) fluticasone furoate 27.5 2 spray intranasal DAILY #9.1 mL 03/14/22 11/20/24 mcg/actuation nasal spray,suspension albuterol sulfate 1.25 mg/3 mL 1.25 mg (3 mL) inhalation QID PRN 07/07/22 11/20/24 solution for nebulization shortness of breath or wheezing #120 mL acetaminophen 500 mg tablet 1,000 mg PO Q6H PRN 09/18/22 11/20/24 (Acetaminophen Extra Strength) empagliflozin 25 mg tablet 25 mg PO DAILY #90 tabs 01/23/23 11/20/24 (Jardiance) ondansetron 4 mg disintegrating 4 mg PO Q8H PRN nausea and 04/10/23 11/20/24 tablet vomiting #30 tabs sodium chloride 0.65 % nasal spray 2 spray intranasal QID PRN dry 08/10/23 11/20/24 aerosol ([place] Saline) nasal passages #50 mL glucagon 3 mg/actuation nasal spray 3 mg intranasal ONCE PRN Blood 11/06/23 11/20/24 sugar less than 60, not responding to oral #1 ea insulin lispro 100 unit/mL See Rx Instructions subcut TID #15 12/06/23 11/20/24 subcutaneous pen (Humalog KwikPen mL (U-100) Insulin) sitagliptin phosphate 100 mg 100 mg PO DAILY #90 tabs 02/07/24 11/20/24 tablet (Januvia) albuterol sulfate 90 mcg/actuation 2 puff inhalation Q6H PRN 02/18/24 11/20/24 aerosol inhaler (Ventolin HFA) shortness of breath or wheezing #8.5 grams pantoprazole 40 mg tablet,delayed 40 mg PO DAILY #90 tabs 03/06/24 11/20/24 release lisinopril 20 mg tablet 20 mg PO DAILY #90 tab-caps 04/11/24 11/20/24 insulin degludec 200 unit/mL (3 See Rx Instructions subcut BID #9 05/16/24 11/20/24 mL) subcutaneous pen (Tresiba mL FlexTouch U-200 insulin) diazepam 10 mg tablet 10 mg PO QHS PRN insomnia #14 tabs 06/02/24 11/20/24 erenumab-aooe 140 mg/mL 140 mg subcut QMONTH #3 mL 08/04/24 11/20/24 subcutaneous auto-injector (Aimovig Autoinjector) hydroxychloroquine 200 mg tablet 200 mg PO DAILY #90 tabs 08/04/24 11/20/24 lorazepam 1 mg tablet 1 mg PO Q8H PRN anxiety #20 tabs 08/04/24 11/20/24 paroxetine HCl 40 mg tablet 40 mg PO DAILY #90 tabs 08/04/24 11/20/24 prazosin 5 mg capsule 5 mg PO QHS #90 caps 08/04/24 11/20/24 rimegepant 75 mg disintegrating 75 mg PO ONCE PRN migraine 08/04/24 11/20/24 tablet (Nurtec ODT) headache #8 tabs flash glucose sensor (FreeStyle #2 kits 10/31/24 11/20/24 Coby 2 Sensor kit) pregabalin 200 mg capsule 200 mg PO TID #270 caps 11/13/24 11/20/24 Previous Rx's ?Medication ?Instructions ?Recorded flash glucose scanning reader #1 ea 07/22/20 (FreeStyle Coby 14 Day Jameson) pen needle, diabetic 31 gauge x #100 ea 11/03/21/ (BD Ultra-Fine Mini Pen Needle) fluticasone furoate 27.5 2 spray intranasal DAILY #9.1 mL 03/14/22 mcg/actuation nasal spray,suspension albuterol sulfate 1.25 mg/3 mL 1.25 mg (3 mL) inhalation QID PRN 07/07/22 solution for nebulization shortness of breath or wheezing #120 mL empagliflozin 25 mg tablet 25 mg PO DAILY #90 tabs 01/23/23 (Jardiance) ondansetron 4 mg disintegrating 4 mg PO Q8H PRN nausea and 04/10/23 tablet vomiting #30 tabs sodium chloride 0.65 % nasal spray 2 spray intranasal QID PRN dry 08/10/23 aerosol ([place] Saline) nasal passages #50 mL glucagon 3 mg/actuation nasal spray 3 mg intranasal ONCE PRN Blood 11/06/23 sugar less than 60, not responding to oral #1 ea insulin lispro 100 unit/mL See Rx Instructions subcut TID #15 12/06/23 subcutaneous pen (Humalog KwikPen mL (U-100) Insulin) sitagliptin phosphate 100 mg 100 mg PO DAILY #90 tabs 02/07/24 tablet (Januvia) albuterol sulfate 90 mcg/actuation 2 puff inhalation Q6H PRN 02/18/24 aerosol inhaler (Ventolin HFA) shortness of breath or wheezing #8.5 grams pantoprazole 40 mg tablet,delayed 40 mg PO DAILY #90 tabs 03/06/24 release lisinopril 20 mg tablet 20 mg PO DAILY #90 tab-caps 04/11/24 insulin degludec 200 unit/mL (3 See Rx Instructions subcut BID #9 05/16/24 mL) subcutaneous pen (Tresiba mL FlexTouch U-200 insulin) diazepam 10 mg tablet 10 mg PO QHS PRN insomnia #14 tabs 06/02/24 erenumab-aooe 140 mg/mL 140 mg subcut QMONTH #3 mL 08/04/24 subcutaneous auto-injector (Aimovig Autoinjector) hydroxychloroquine 200 mg tablet 200 mg PO DAILY #90 tabs 08/04/24 lorazepam 1 mg tablet 1 mg PO Q8H PRN anxiety #20 tabs 08/04/24 paroxetine HCl 40 mg tablet 40 mg PO DAILY #90 tabs 08/04/24 prazosin 5 mg capsule 5 mg PO QHS #90 caps 08/04/24 rimegepant 75 mg disintegrating 75 mg PO ONCE PRN migraine 08/04/24 tablet (Nurtec ODT) headache #8 tabs flash glucose sensor (FreeStyle #2 kits 10/31/24 Coby 2 Sensor kit) pregabalin 200 mg capsule 200 mg PO TID #270 caps 11/13/24 Allergies Allergy/AdvReac Type Severity Reaction Status Date / Time fluoxetine HCl (From Prozac) Allergy Intermediate rash Verified 11/20/24 21:25 metformin AdvReac Severe diarrhea Verified 11/20/24 21:25 rofecoxib (From Vioxx) AdvReac Severe bleeding Verified 11/20/24 21:25 aspirin AdvReac Intermediate GI Upset Verified 11/20/24 21:25 celecoxib (From Celebrex) AdvReac Intermediate GI Upset Verified 11/20/24 21:25 naproxen AdvReac Intermediate Stomach Verified 11/20/24 21:25 intolerance General Stated Complaint: Dizzy/Sync HOSSEIN: 3 Exam Narrative Exam Narrative: Const: WDWN female in NAD. VS per triage. HEENT: NC/AT. Normal facial exam. Neck: Supple. Trachea midline. Lungs: Normal respiratory effort. Lungs with diffuse wheezing but no rhonchi or crackles, good air exchange. Cor: RRR without murmur. Good radial pulses. GI: Soft/ND/NT. Neuro: A+O x 3. Normal speech, mentation. Cranial nerves II - XII grossly intact. No gross motor or sensory deficit. Ext: No C/C/E. Course Vital Signs Vital signs: Vital Signs Temperature 97.9 F 05/15/25 21:20 Pulse 104 H 11/20/24 21:20 Respiratory Rate 20 11/20/24 21:20 Blood Pressure 105/71 11/20/24 21:20 Pulse Oximetry 90 L 11/20/24 21:20 Temperature 97.9 F 11/20/24 21:20 Temperature Source Oral 11/20/24 21:20 Pulse 104 H 11/20/24 21:20 Respiratory Rate 16 11/20/24 21:52 Respiratory Effort Normal 11/20/24 21:52 Respiratory Depth Normal 11/20/24 21:52 Respiratory Pattern Normal 11/20/24 21:52 Blood Pressure 105/71 11/20/24 21:20 Blood Pressure Position Sitting 11/20/24 21:20 Pulse Oximetry 90 L 11/20/24 21:20 Oxygen Delivery Method Room Air 11/20/24 21:20 Oxygen Flow Rate 0 11/20/24 21:20 Medical Decision Making Patient presenting to ED with lightheadedness, fatigue, reported low blood pressure taken by coworker. She has chronic migraines and COPD, still smoking. Baseline saturations per the patient are 88 to 92%. She denies any change in her cough and denies any shortness of breath or chest pain. She has history of vertigo but reports this is different. There is been no change in her headaches. There is no report of fever. Blood sugars have not been well- controlled as of late with a recent A1c that went up rather than down. Reports that she still has elevated blood sugars most times. Her EKG per my read is sinus rhythm with low voltage throughout especially limb leads, nonspecific ST changes, no significant change from previous. IV is in place. Will check laboratory studies including the VBG though I doubt this is related to DKA. Will obtain chest x-ray and urine to evaluate for possible infection. Patient's chest x-ray per my read with no acute cardiopulmonary process. Laboratory studies with white count of 11, normal hemoglobin and platelets. VBG is normal. Kidney function is elevated and above baseline at 1.8 creatinine. Glucose also elevated at 344. She has some hyponatremia with a sodium of 131. Potassium normal at 3.8. Magnesium low at 1.6. Liver function normal. Initial troponin normal. Urinalysis is still pending. Suspect patient's symptoms related to dehydration which likely related to uncontrolled diabetes and hyperglycemia. Will plan for a second liter of fluid. Will replete her magnesium. Will plan a repeat BMP after 2 L fluid bolus. Urinalysis negative for infection. Glucose is present. Repeat BMP after 2 L of fluid shows improvement in her kidney function as well as her sodium. Glucose also down. Suspect patient's symptomatology mostly related to uncontrolled diabetes and dehydration. I have spoken to her at length. She admits that probably for the last month she has not really been taking care of herself. She reports that since seeing primary care last week and finding out that her A1c was going up was kind of a reality check for her. I think she is safe for discharge home at this time. Encouraged her to monitor her sugars, take her insulin, watch her diet and increase good fluid intake. Follow-up with primary care in the next 1 to 2 weeks, probably should have labs rechecked to be sure kidney function continues to improve. Return precautions provided. Medical Records Medical records reviewed: Yes I reviewed the patient's medical records. Medical records narrative: PCP and Neuro notes Imaging Data Radiologic Study: Attestation: I personally reviewed and interpreted this imaging study as follows: Imaging: X-Ray My impression: see [facility] Lab Data Lab results reviewed: Yes I reviewed the patient's lab results. Lab results narrative: see [facility] ECG Data Attestation: I personally reviewed and interpreted this ECG (s) as follows: Prior ECG tracings: available for review Interpretation: see [facility] All Active Problems (Updated 11/21/24 @ 02:49 by Reji Murrell MD) Hypomagnesemia (Acute) Dehydration (Acute) JAQUAN (acute kidney injury) (Acute) Poorly controlled diabetes mellitus (Acute) Diabetic peripheral neuropathy (Acute) Obstructive sleep apnea (adult) (pediatric) (Acute) 11/07/24 F[facility]u at [facility]; currently using Bi Pap Postmenopausal disorder (Acute) Ongoing hot flashes. Acute nightmare disorder with associated non-sleep disorder, during sleep onset (Acute) Grief reaction (Chronic) Peroneal tendonitis of left lower extremity (Acute) Foot pain, left (Acute) Ganglion cyst of left foot (Acute) Metatarsalgia, left foot (Acute) Tobacco use disorder (Acute) Vertigo (Chronic) Managed by [facility] Otolaryngology Dizziness; Dysequilibrium Cataract (Chronic 11/28/23) Age-related nuclear cataract (H25.13) History of stroke (Acute) Sensorineural hearing loss (SNHL) of both ears (Acute) Allergic sinusitis (Acute) Myofascial muscle pain (Acute) Osteoarthritis of knee (Chronic) Asthma (Chronic) Diagnosed in 1993 Obesity (Chronic) Hypertriglyceridemia (Chronic) Gastro-esophageal reflux disease without esophagitis (Chronic 08/25/11) responds to PPI, unable to stop 02/2017 Type 2 diabetes mellitus with hyperglycemia (Acute 10/12/15) 03/2014 hospital A1C 7%; goal A1c<7.5 Liver cirrhosis (Chronic) Stroke (Chronic) Depressive disorder (Chronic) Intermittent. Polyarthritis (Acute) Unspecified visual disturbance (Acute) [facility] opthalmology Unspecified visual field defects (Acute) Exophoria (Acute) Benign paroxysmal positional vertigo of right ear (Acute) Referred otalgia of right ear (Acute) Neck pain (Acute 06/29/16) Steroid-induced hyperglycemia (Acute 03/09/14) Other sleep disturbances (Acute 08/16/12) when back hurts and left knee/leg throb, sleep is disturbed Mechanical low back pain (Acute 08/02/08) DAILY PAIN SINCE FALL ON ICE AT WORK AUG 02, 2008 WC; re-injured 06/17/12 lifting at work; MRI 09/2012: MOD FACET ARTHROPATHY L5-S1, MILD L4-5 Tens unit 09/23/14; Functional Restor prg 07/2015 Diabetes mellitus (Chronic 04/16/14) 03/2014 hospital A1C 7%; goal A1c<7.5 Chronic rhinitis (Chronic 08/25/11) Cervicalgia (Acute 06/29/16) 06/29/16 Arthropathy, unspecified (Acute 08/25/11) marjorie knees Neuropathy of finger (Chronic) Intermittent vertigo (Chronic) Trigger thumb of right hand (Chronic) Medical History Metabolic dysfunction-associated steatohepatitis (MASH) History of hepatitis C S/P full treatment. Negative virology since 2001 Uncontrolled type 2 diabetes mellitus without complication, with long-term current use of insulin Nonalcoholic steatohepatitis (BUI) Pako, [facility] 02/20/19. Essential hypertension Chronic airway obstruction (06/05/14) exacerbation 03/2014 [facility]; FEV1 1.6 (58& pred; 62% FVC) no response to bronchodilators Balance disorder Episodes of ataxic gait, per pt report (as if drunk), and veering off-road x1. Presumed BPV, but re-assessing. Benign paroxysmal vertigo Dr Marshall testing 2000; head CT 10/06/02 & 03/05/06; HAD IN PAST; AGAIN 02/2012; again 08/08/13 to L Cerebral aneurysm (04/28/22) LICA Hyperlipidemia Vestibular migraine Nocturnal hypoxia Managed by [employer] (Sushma Burt NP) 11/07/24 f/u at [facility] Severe obstructive sleep apnea (05/18/23) [employer] - recommend CPAP use Rheumatoid arthritis Hepatitis C Surgical History Internal carotid artery stent present Status post cataract extraction and insertion of intraocular lens of right eye (12/24/23) Juan Carlos Patterson MD [facility] History of laryngoscopy 04/10/19 transnasal laryngoscopy salivary gland (02/23/17) [facility], left submental ganglion wrist cyst removal x2 elbow surg x2 UGI W/ BX (10/10/17) [facility] section x3 COLONOSCOPY W/ BX (10/10/17) Family History Father Heart disease Sister COPD (chronic obstructive pulmonary disease) Obese Brother Diabetes Essential hypertension Asthma Heart disease Hypertension Brother COPD (chronic obstructive pulmonary disease) Brother Alcohol abuse Brother Neoplasm non hodgkins lymphoma Mother COPD (chronic obstructive pulmonary disease) Asthma Heart disease Hypertension Social History Smoking/Tobacco Use Status: Current every day Tobacco Type: cigarettes Tobacco: How many years used: 10 Second Hand Exposure: No Smoking risk assessment performed?: Yes Alcohol Intake: former Drug use: Never Substance use type: does not use Adopted: No Foster care: No Household members: family and other Details: mother Housing: house Number of Children: 3 Communication Needs: Corrective Lenses Do you need help understanding health information?: Rarely 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 Pets and animals: Yes Pets and animals: cat(s), dog(s) and bird(s) Sexually active: No Do you think of yourself as: straight/heterosexual Current gender identity: female What is your relationship status?: How often do you talk on the phone with friends or family?: three or more times per week How often do you get together with friends or relatives?: decline to answer How often do you attend caodaism or tenriism services?: 1-3 times per year Panel score (0-1 are the most socially isolated patients): 1 What type of physical activity do you participate in: none Meg/Restorationist: None Special meg needs: No Seatbelt use: always Helmet use: Yes Helmet use: other Details: N/A Drive intox or ride w/intox van cdl driver: No Working smoke detector in home: Yes Fire extinguisher in home: Yes Carbon monox detector in home: Yes Do you feel safe at home: Yes Do you feel safe in your relationship?: Yes
--- NOTE | 2024-11-20 22:15 | DI.RAD_ITS ---
Exam(s) XR CHEST 2V PA LATERAL EXAM: XR CHEST 2V PA LATERAL CLINICAL HISTORY: weakness, cough. TECHNIQUE: 2D digital imaging was performed. COMPARISON: CR XR CHEST 2V PA LATERAL from 01/23/2023 FINDINGS: 2 views: Heart size is normal. The mediastinum is not widened. Right lung is clear. There is platelike atelectasis or scarring in the left lung base lingular segme nt. Slightly increased from previous studies above. No pleural effusions. No pulmonary edema. IMPRESSION: Platelike atelectasis or scarring in the left lung base. DATA REPOSITORY: RADIATION DOSE DELIVERED:
[2024-11-20 22:24] LABS: Abs Immature Grans 0.04 10^3/uL (0.0-0.06); Absolute Basophil Count 0.07 10^3/uL (0.0-0.2); Absolute Eosinophil Count 0.21 10^3/uL (0.0-0.7); Absolute Lymphocyte Count 2.67 10^3/uL (1.2-3.4); Absolute Monocyte Count 0.81 10^3/uL (0.1-0.8); Absolute Neutrophil Count 7.16 10^3/uL (1.2-6.7); Basophils % 0.6 %; Eosinophils % 1.9 %; HCT 41.9 % (36.0-46.0); HGB 14.5 g/dL (11.2-15.7); Immature Grans % 0.4 %; Lymphocytes % 24.4 %; MCH 30.3 pg (27.0-33.0); MCHC 34.6 % (32.0-36.0); MCV 88 fL (80-95); MPV 11.6 fL (8.0-11.0); Monocytes % 7.4 %; Neutrophils % 65.3 %; Platelet Count 144 10^3/uL (130-400); RBC 4.79 10^6/uL (3.93-5.22); RDW 13.2 % (11.7-14.6); RDW-SD 42.8 fL; WBC 10.96 10^3/uL (4.4-10.8)
[2024-11-20 22:41] LABS: ALT 16 U/L (14-59); AST 12 U/L (15-37); Albumin 3.9 g/dL (3.4-5.0); Alkaline Phosphatase 137 U/L (46-116); Anion Gap 8.5 mmol/L (3-11); BUN 23 mg/dL (7-18); Bilirubin, Total 0.4 mg/dL (0.2-1.0); CO2 25.5 mmol/L (21.0-32.0); CREATININE 1.8 mg/dL (0.55-1.02); Calcium 8.6 mg/dL (8.5-10.1); Chloride 97 mmol/L (98-107); Estimated GFR 30.88 (mL/min/1.73m2); Glucose 344 mg/dL (74-106); Magnesium 1.6 mg/dL (1.8-2.4); Potassium 3.8 mmol/L (3.5-5.1); Sodium 131 mmol/L (136-145); Troponin I 8 ng/L (<or=51)
[2024-11-20 22:49] LABS: BE (Venous) 1 mmol/L (-2-3); HCO3 (Venous) 26 mmol/L (23-28); O2 Sat (Venous) 93 %; TCO2 (Venous) 24 mmol/L (24-29); pCO2 (Venous) 49 mmHg (41-51); pH (Venous) 7.34 (7.31-7.41); pO2 (Venous) 64 mmHg
[2024-11-20] MEDS: MAGNESIUM SULFATE 2 GM/50 ML BAG IV_INF (23:00)
[2024-11-20] MEDS: Normal Saline 1,000 ML 1000 ML IV (23:00)
--- NOTE | 2024-11-20 23:27 | DI.VRAD_ITS ---
PROCEDURE INFORMATION: Exam: XR Chest Exam date and time: 11/20/2024 10:49 PM Age: 64 years old Clinical indication: Cough and other: Weakness; Cough, weakness TECHNIQUE: Imaging protocol: Radiologic exam of the chest. Views: 2 views. COMPARISON: CT THORAX ABDOMEN CTA 07/15/2024 12:11 AM FINDINGS: Lungs: Left basilar subsegmental atelectatic changes. Pleural spaces: Unremarkable. No pleural effusion. No pneumothorax. Heart/Mediastinum: Unremarkable. No cardiomegaly. Bones/joints: Unremarkable. IMPRESSION: Left basilar subsegmental atelectatic changes. Dictated and Authenticated by: Lai Rosa MD. Orderin Handy Mendoza MD
[2024-11-21] VITALS (23 sets, daily range): BP systolic 104–141; BP diastolic 47–73; PULSE 76–90; O2SAT 87–95
[2024-11-21 00:16] LABS: Troponin I 8 ng/L (<or=51)
[2024-11-21] MEDS: Normal Saline 1,000 ML 1000 ML IV (01:11)
[2024-11-21 01:47] LABS: Bilirubin Negative (Negative); Blood Negative (Negative); Clarity Clear (Clear); Glucose 500 mg/dL (Negative); Ketones Negative (Negative); Leukocyte Esterase Negative (Negative); Nitrite Negative (Negative); Urobilinogen 0.2 mg/dL (Up to 0.2)
[2024-11-21 02:31] LABS: Anion Gap 5.7 mmol/L (3-11); BUN 20 mg/dL (7-18); CO2 27.3 mmol/L (21.0-32.0); CREATININE 1.4 mg/dL (0.55-1.02); Calcium 7.9 mg/dL (8.5-10.1); Chloride 103 mmol/L (98-107); Estimated GFR 41.75 (mL/min/1.73m2); Glucose 271 mg/dL (74-106); Potassium 3.9 mmol/L (3.5-5.1); Sodium 136 mmol/L (136-145)
== END 2024-11-21 02:53 | disposition home or self-care (01) ==
PROVIDERS: Emergency Provider Emergency Medicine; PCP Family Medicine
DX: E83.42 Hypomagnesemia (principal); E86.0 Dehydration; N17.9 Acute kidney failure, unspecified; E11.9 Type 2 diabetes mellitus without complications; I10 Essential (primary) hypertension; E78.5 Hyperlipidemia, unspecified; Z79.84 Long term (current) use of oral hypoglycemic drugs; Z79.4 Long term (current) use of insulin; Z79.82 Long term (current) use of aspirin; J44.9 Chronic obstructive pulmonary disease, unspecified
CPT/HCPCS: 36415; 80048; 80053; 82805; 93005; 96361; 96365; 96366; 99285; 71046; 81003; 81015; 83735; 84484; 85025; 93010; 99284; J3475

== ENCOUNTER 2024-11-26 02:01 | Outpatient (CLI) | payer MEDICARE, MEDICAID, SELFPAY ==
--- NOTE | 2024-11-26 | DI.MRI_ITS ---
Exam(s) MR ANGIO BRAIN WO CLINICAL HISTORY: Aneurysm of lt internal carotid artery, I67.1. TECHNIQUE: Multiplanar multisequence MRA of the brain was performed. COMPARISON: MR MR BRAIN WO from 04/20/[address] BRAIN NECK CTA from 07/15/2024 FINDINGS: Carotid Arteries: There is artifact seen from a stent in the left internal carotid artery. This was present on the examination from 07/15/2024. The patient's known adjacent left internal carotid artery aneurysm is not visualized on this examination. The right internal carotid arteries are unremarkable . Anterior Cerebral Arteries: Right: No aneurysm, occlusion or significant stenosis. Left: No aneurysm, occlusion or significant stenosis. Middle Cerebral Arteries: Right: No aneurysm, occlusion or significant stenosis. Left: No aneurysm, occlusion or significant stenosis. Posterior Cerebral Arteries: Right: No aneurysm, occlusion or significant stenosis. Left: No aneurysm, occlusion or significant stenosis. Vertebral Arteries: Right: No aneurysm, occlusion or significant stenosis. Left: No aneurysm, occlusion or significant stenosis. Basilar Artery: No aneurysm, occlusion or significant stenosis. IMPRESSION: There is artifact from a stent seen in the C4 and C5 segment of the left internal carotid artery. Th ere is no flow seen within the patient's known left internal carotid artery aneurysm. DATA REPOSITORY:
== END 2024-11-26 02:21 ==
PROVIDERS: PCP Family Medicine; Visit Provider Neurological Surgery
DX: I67.1 Cerebral aneurysm, nonruptured (principal)
CPT/HCPCS: 70544

== ENCOUNTER 2025-03-06 12:40 | Inpatient (IN) | payer MEDICARE, MEDICAID, SELFPAY ==
[2025-03-06] VITALS (76 sets, daily range): BP systolic 45–151; BP diastolic 32–108; PULSE 39–122; RESP 11–38; TEMP 35.2–36.8; O2SAT 3–98
--- NOTE | 2025-03-06 12:45 | RT.EKG_ITS ---
APPROVED REPORT Exam: Resting ECG Reason for Exam: hypotension, hypoxia Patient Location: E HR:99 bpm ECG Measurements Heart Rate 99 AXIS TX 178 P 76 QRSd 74 QRS 46 QT 355 T 51 QTc 457 Conclusion Sinus rhythm...normal P axis, V-rate 60- 99 Probable left atrial enlargement...P >50mS, <-0.10mV V1 Low voltage, extremity leads...all extremity leads <0.5mV
--- NOTE | 2025-03-06 13:00 | DI.CT_ITS ---
Exam(s) CT BRAIN NECK CTA EXAM: CT BRAIN NECK CTA CLINICAL HISTORY: headache, chest back pain, hypotensive. TECHNIQUE: Imaging Protocol: Axial CT angiography was performed with multi- slice acquisition and multi-planar and/or 3D reconstructions. CONTRAST MATERIAL: Intravenous: Omnipaque 350 Contrast volume:structured data in ml COMPARISON: CT CT BRAIN NECK CTA from 07/15/[address] THORAX ABD/PEL CTA from 03/06/2025 FINDINGS: CTA Neck W: Aortic arch anatomy: The aortic arch anatomy is conventional. There is some circumferential plaque at the origin left common carotid artery but without hemodynamically significant stenosis at this level and no dissection. Anterior circulation: Both common carotid arteries ascend with normal luminal diameters. There is some calcified and noncalcified plaque at the level of both carotid bifurcations and proximal ICAs. Amount of stenosis on the left side is approximately 20 percent. Amount of stenosis on the right side is also approximately 20 percent. The internal carotid arteries on both sides the upper neck are nicely patent as well as in the skull base-carotid canals. Posterior circulation: Both vertebral arteries originate in conventional fashion off of the subclavian arteries and there is no obvious stenosis at the origin of the right vertebral artery. However, there appears to be significant high-grade stenosis at the origin of the left vertebral artery of the left subclavian artery. In the foramen transverse area move home both vertebral arteries ascend with normal luminal diameters and no evidence of intraluminal thrombus nor dissection. At the skull base both vertebral arteries contribute to the formation of the basilar artery. CTA Brain W: Anterior circulation: Both internal carotid arteries are patent in the skull base-carotid canals as well as within the cavernous sinuses. An endovascular exclusion stent is again noted in the upper half of the intra cavernous left internal carotid artery without evidence of obvious intra stent stenosis and the supraclinoid aspect of the ICA above this level is unremarkable. 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 There is again no filling of the aneurysm with contrast on the present study. The supraclinoid aspects of both ICAs are patent. Both A1 segments are patent as are the anterior cerebral arteries and there is no evidence of aneurysm at the level of the anterior communicating artery. Both middle cerebral arteries are patent with no evidence of significant stenosis nor intraluminal thrombus. There also no aneurysms of these vessels. Posterior circulation: Basilar artery ascends in the midline with no evidence of significant stenosis. Distally gives off superior cerebellar arteries and above this level terminates as patent posterior cerebral arteries. There is no evidence of aneurysm at the tip of the basilar artery nor elsewhere in the [id number]. CT BRAIN: There is no evidence of intracranial hemorrhage, mass effect, or shift of midline structures. There are no extra-axial fluid collections. Ventricles are not enlarged or shifted. There are no ring enhancing lesions in the brain and no abnormal meningeal enhancement. IMPRESSION: 1. Both calcified and noncalcified plaque seen in both carotid bulbs and proximal ICAs in the neck but without high-grade stenosis at these levels 2. There is a significant focal stenosis at the origin of the left vertebral artery off of the left subclavian artery. Estimated at 70 percent stenosis. There is no stenosis at the origin of the right vertebral artery off of the right subclavian artery. 3. Patent intracranial arteries. 4. Again noted is a patent endovascular stent in the lower half of the left intracavernous ICA without evidence of intra stent stenosis. There is no flow evident within the adjacent excluded small aneurysm at this level, the appearance of which is similar to the prior study of 07/15/2024 RADIATION DOSE DELIVERED: 2,477.47mGy.cm Total DLP DATA REPOSITORY: All CT scans at this facility are submitted to the National Radiology Data Registry (NRDR) Dose Index Registry (DIR) with the [employer] ([employer]). RADIATION OPTIMIZATION: All CT scans at this facility use at least one of these dose optimization techniques: automated exposure control; mA and/or kV adjustment per patient size (includes targeted exams where dose is matched to clinical indication); or iterative reconstruction.
--- NOTE | 2025-03-06 13:00 | DI.CT_ITS ---
Exam(s) CT THORAX ABD/PEL CTA EXAM: CT THORAX ABD/PEL CTA CLINICAL HISTORY: Chest pain concern for dissection. TECHNIQUE: Imaging Protocol: Axial computed tomography images with coronal and sagittal reformatted images were created and reviewed CONTRAST MATERIAL: Intravenous: Omnipaque 350 Contrast volume:100 ml Oral: None COMPARISON: CT CT THORAX ABDOMEN CTA from 07/15/2024 FINDINGS: CHEST: AORTA: The diameter of the ascending thoracic aorta is within normal limits. There is no evidence of aortic dissection. No pericardial effusion. There is also no evidence of abdominal aortic aneurysm. There is moderate atherosclerotic involvement of the distal abdominal aorta and aortic bifurcation but without critical stenosis at this level. There is also calcified plaque in the common iliac arteries but without critical stenosis nor aneurysms of these vessels. The external iliac arteries are not calcified and patent. There is some mural calcification evident in the bilateral common femoral arteries. Visualized proximal aspects of the bilateral SFA arteries are patent. Celiac and superior mesenteric arteries are patent. Inferior mesenteric artery is patent. There is no significant stenosis in the renal arteries. LUNGS: There are no confluent infiltrates nor pleural effusions. Mild increased markings are noted in the inferior lingular segment of the left lung.. MEDIASTINUM: There is no hilar nor mediastinal adenopathy. CARDIAC: Heart size normal. No pericardial effusion. Abdomen There is no ascites. LIVER: There are no focal hepatic lesions nor dilatation of intrahepatic ducts. GALLBLADDER/BILIARY: No obvious gallbladder pathology. CBD is not dilated. PANCREAS: No evidence of pancreatic mass nor dilatation of the pancreatic duct. SPLEEN: Spleen size upper normal. No splenic lesions evident. Splenic and portal veins are patent. ADRENALS: There are no significant adrenal masses. KIDNEYS: No cysts evident. No calculi nor hydronephrosis. No solid renal masses. LYMPH NODES: There is no retroperitoneal nor para-aortic adenopathy. No obvious mesenteric masses. ABDOMINAL WALL: No evidence of significant anterior abdominal wall hernia. GI: Benign lipoma noted in the wall of the 3rd part of the duodenum. PELVIS: LYMPH NODES: There is no intrapelvic nor inguinal adenopathy. GI: No evidence of appendicitis.Sigmoid diverticuli but no evidence of obvious acute diverticulitis. URINARY BLADDER: There is diffuse urinary bladder wall thickening, possibly exaggerated by under distension. Pelvic ureters are not dilated. REPRODUCTIVE: Uterus and adnexal regions appear age-appropriate. There is no free fluid in the pelvis. OSSEOUS: No significant osseous lesions. No fractures. IMPRESSION: 1. No evidence of aortic aneurysm nor aortic dissection. No evidence of pericardial effusion 2. Sigmoid diverticulosis without evidence of acute diverticulitis. 3. Uniformly thickened urinary bladder wall. May be in part related to under distension. Called to ER 03/06/2025 at 2:30 p.m. RADIATION DOSE DELIVERED: 1,459.56mGy.cm Total DLP DATA REPOSITORY: All CT scans at this facility are submitted to the National Radiology Data Registry (NRDR) Dose Index Registry (DIR) with the [employer] (ACR). RADIATION OPTIMIZATION: All CT scans at this facility use at least one of these dose optimization techniques: automated exposure control; mA and/or kV adjustment per patient size (includes targeted exams where dose is matched to clinical indication); or iterative reconstruction.
[2025-03-06 13:17] LABS: Abs Immature Grans 0.03 10^3/uL (0.0-0.06); HCT 46.7 % (36.0-46.0); HGB 15.6 g/dL (11.2-15.7); Immature Grans % 0.3 %; MCH 29.8 pg (27.0-33.0); MCHC 33.4 % (32.0-36.0); MCV 89 fL (80-95); MPV 10.4 fL (8.0-11.0); Platelet Count 174 10^3/uL (130-400); RBC 5.23 10^6/uL (3.93-5.22); RDW 13.2 % (11.7-14.6); RDW-SD 43.4 fL; WBC 9.25 10^3/uL (4.4-10.8)
[2025-03-06] MEDS: Normal Saline Flush 10 ML SYR IVP ×3 (13:19→21:30)
--- NOTE | 2025-03-06 13:19 | W.ED.GENAD ---
Discharge Plan Disposition Patient [facility] Condition: Serious Discharge Details Clinical Impression: Acute hypotension Admit Date/Time: 03/06/25 16:23 Admit Provider: Adriel Cervantes Attending Provider: Adriel Cervantes Primary Care Provider: Hai Lopez ED Provider: Rudolph Álvarez Discharge Data Discharge Date/Time-TO BE ENTERED AT DEPARTURE: 03/06/25 17:20 HPI General Mode of arrival: ambulatory. Date/Time Provider Initiated Documentation: 03/06/25 12:58. Limitations to Documentation: no limitations. Information obtained by: patient. HPI Narrative: HISTORY OF PRESENT ILLNESS 64-year-old female with multiple medical problems presenting with severe headache. Patient felt unwell this morning with neck, shoulder, and arm pain, severe headache, and pain between shoulder blades. She has associated generalized weakness. Patient denies focal weakness or numbness. No abdominal discomfort, chest pain, or difficulty breathing. History of left brain aneurysm with stent placement. Stumbled upon entering clinic, feels weak, especially in upper body. Oxygen level typically 89-90%. Persistent dry mouth. Blood pressure usually 110s/70s. Started glipizide this morning, uncertain if causing symptoms. Smokes cigarettes, no alcohol use. PAST SURGICAL HISTORY: Stent placement for brain aneurysm. Related Data Home Medications ?Medication ?Instructions ?Recorded ?Confirmed aspirin 81 mg tablet,delayed 81 mg PO DAILY 12/26/19 03/08/25 release (Adult Aspirin Regimen) flash glucose scanning reader #1 ea 07/22/20 03/08/25 (FreeStyle Coby 14 Day Lyburn) pen needle, diabetic 31 gauge x #100 ea 11/03/21 03/08/25/16 (BD Ultra-Fine Mini Pen Needle) fluticasone furoate 27.5 2 spray intranasal DAILY #9.1 mL 03/14/22 03/08/25 mcg/actuation nasal spray,suspension albuterol sulfate 1.25 mg/3 mL 1.25 mg (3 mL) inhalation QID PRN 07/07/22 03/08/25 solution for nebulization shortness of breath or wheezing #120 mL acetaminophen 500 mg tablet 1,000 mg PO Q6H PRN 09/18/22 03/08/25 (Acetaminophen Extra Strength) ondansetron 4 mg disintegrating 4 mg PO Q8H PRN nausea and 04/10/23 03/08/25 tablet vomiting #30 tabs sodium chloride 0.65 % nasal spray 2 spray intranasal QID PRN dry 08/10/23 03/08/25 aerosol (Culdesac Saline) nasal passages #50 mL lisinopril 20 mg tablet 20 mg PO DAILY #90 tab-caps 04/11/24 03/08/25 diazepam 10 mg tablet 10 mg PO QHS PRN insomnia #14 tabs 06/02/24 03/08/25 lorazepam 1 mg tablet 1 mg PO Q8H PRN anxiety #20 tabs 08/04/24 03/08/25 rimegepant 75 mg disintegrating 75 mg PO ONCE PRN migraine 08/04/24 03/08/25 tablet (Nurtec ODT) headache #8 tabs albuterol sulfate 90 mcg/actuation 2 puff inhalation Q6H PRN 01/27/25 03/08/25 aerosol inhaler (Ventolin HFA) shortness of breath or wheezing #8.5 grams flash glucose sensor (FreeStyle #1 ea 01/27/25 03/08/25 Coby 2 Sensor kit) hydroxychloroquine 200 mg tablet 200 mg PO DAILY #90 tabs 01/27/25 03/08/25 pantoprazole 40 mg tablet,delayed 40 mg PO DAILY #90 tabs 01/27/25 03/08/25 release paroxetine HCl 40 mg tablet 40 mg PO DAILY #90 tabs 01/27/25 03/08/25 prazosin 5 mg capsule 5 mg PO QHS #90 caps 01/27/25 03/08/25 sitagliptin phosphate 100 mg 100 mg PO DAILY #90 tabs 01/27/25 03/08/25 tablet (Januvia) insulin lispro 100 unit/mL See Rx Instructions subcut TID #15 02/26/25 03/08/25 subcutaneous pen (Humalog KwikPen mL (U-100) Insulin) pregabalin 200 mg capsule 200 mg PO TID #270 caps 02/26/25 03/08/25 insulin degludec 200 unit/mL (3 50 unit (0.25 mL) subcut HS #9 mL 03/07/25 03/08/25 mL) subcutaneous pen (Tresiba FlexTouch U-200 insulin) pioglitazone 15 mg tablet 15 mg PO DAILY #30 tabs 03/07/25 03/08/25 dexamethasone 4 mg tablet 4 mg PO DAILY #3 tabs 03/08/25 Previous Rx's ?Medication ?Instructions ?Recorded flash glucose scanning reader #1 ea 07/22/20 (FreeStyle Coby 14 Day [place]burn) pen needle, diabetic 31 gauge x #100 ea 11/03/21/ (BD Ultra-Fine Mini Pen Needle) fluticasone furoate 27.5 2 spray intranasal DAILY #9.1 mL 03/14/22 mcg/actuation nasal spray,suspension albuterol sulfate 1.25 mg/3 mL 1.25 mg (3 mL) inhalation QID PRN 07/07/22 solution for nebulization shortness of breath or wheezing #120 mL ondansetron 4 mg disintegrating 4 mg PO Q8H PRN nausea and 04/10/23 tablet vomiting #30 tabs sodium chloride 0.65 % nasal spray 2 spray intranasal QID PRN dry 08/10/23 aerosol (Culdesac Saline) nasal passages #50 mL lisinopril 20 mg tablet 20 mg PO DAILY #90 tab-caps 04/11/24 diazepam 10 mg tablet 10 mg PO QHS PRN insomnia #14 tabs 06/02/24 lorazepam 1 mg tablet 1 mg PO Q8H PRN anxiety #20 tabs 08/04/24 rimegepant 75 mg disintegrating 75 mg PO ONCE PRN migraine 08/04/24 tablet (Nurtec ODT) headache #8 tabs albuterol sulfate 90 mcg/actuation 2 puff inhalation Q6H PRN 01/27/25 aerosol inhaler (Ventolin HFA) shortness of breath or wheezing #8.5 grams flash glucose sensor (FreeStyle #1 ea 01/27/25 Coby 2 Sensor kit) hydroxychloroquine 200 mg tablet 200 mg PO DAILY #90 tabs 01/27/25 pantoprazole 40 mg tablet,delayed 40 mg PO DAILY #90 tabs 01/27/25 release paroxetine HCl 40 mg tablet 40 mg PO DAILY #90 tabs 01/27/25 prazosin 5 mg capsule 5 mg PO QHS #90 caps 01/27/25 sitagliptin phosphate 100 mg 100 mg PO DAILY #90 tabs 01/27/25 tablet (Januvia) insulin lispro 100 unit/mL See Rx Instructions subcut TID #15 02/26/25 subcutaneous pen (Humalog KwikPen mL (U-100) Insulin) pregabalin 200 mg capsule 200 mg PO TID #270 caps 02/26/25 insulin degludec 200 unit/mL (3 50 unit (0.25 mL) subcut HS #9 mL 03/07/25 mL) subcutaneous pen (Tresiba FlexTouch U-200 insulin) pioglitazone 15 mg tablet 15 mg PO DAILY #30 tabs 03/07/25 dexamethasone 4 mg tablet 4 mg PO DAILY #3 tabs 03/08/25 Allergies Allergy/AdvReac Type Severity Reaction Status Date / Time fluoxetine HCl (From Prozac) Allergy Intermediate rash Verified 03/08/25 08:14 glipizide AdvReac Severe hypotension Verified 03/08/25 08:14 metformin AdvReac Severe diarrhea Verified 03/08/25 08:14 rofecoxib (From Vioxx) AdvReac Severe bleeding Verified 03/08/25 08:14 aspirin AdvReac Intermediate GI Upset Verified 03/08/25 08:14 celecoxib (From Celebrex) AdvReac Intermediate GI Upset Verified 03/08/25 08:14 naproxen AdvReac Intermediate Stomach Verified 03/08/25 08:14 intolerance General Stated Complaint: GenMedical HOSSEIN: 2 Review of Systems All systems reviewed & are unremarkable except as noted in HPI and below Exam Const General: cooperative HENMT Head: normocephalic and atraumatic Mouth: moist mucous membranes Eyes Conjunctivae: normal conjunctivae Sclera: normal sclerae Pupils: PERRL Neck Neck: trachea midline and supple Resp Effort & Inspection: normal respiratory effort Auscultation: clear to auscultation bilaterally, no rales, no rhonchi and no wheezes Cardio Rate: regular rate and not tachycardic Rhythm: regular rhythm GI Palpation: soft, not firm, no guarding, no masses, not rigid and nontender Skin General skin exam: no rashes or lesions noted Neuro General: patient confused Cognition: abnormal cognition (Slow to respond) Speech: speech normal Motor: other (4/5 strength bilateral lower extremities; 5/5 UEs; no facial weakness) Sensory Exam: no sensory deficits noted Extrem General: no edema Course Vital Signs Vital signs: Vital Signs Temperature 35.2 C L 03/06/25 12:54 Pulse 101 H 03/06/25 12:54 Respiratory Rate 17 03/06/25 12:54 Blood Pressure 70/46 L 03/06/25 12:54 Pulse Oximetry 91 L 03/06/25 12:54 Temperature 35.2 C L 03/06/25 12:54 Temperature Source Tympanic 03/06/25 12:54 Pulse 101 H 03/06/25 12:54 Respiratory Rate 17 03/06/25 12:54 Blood Pressure 70/46 L 03/06/25 12:54 Blood Pressure Position Supine 03/06/25 12:54 Pulse Oximetry 91 L 03/06/25 12:54 Oxygen Delivery Method Room Air 03/06/25 12:54 Oxygen Flow Rate 0 03/06/25 12:54 Lab/Test Results Lab/Test Results: 03/06/25 13:12 Blood Blood Culture - Pending 03/06/25 13:12 Blood Blood Culture - Pending Laboratory Tests Range/Units 03/06/25 13:05 WBC (4.4-10.8) 10^3/uL 9.25 RBC (3.93-5.22) 10^6/uL 5.23 H Hgb (11.2-15.7) g/dL 15.6 Hct (36.0-46.0) % 46.7 H MCV (80-95) fL 89 MCH (27.0-33.0) pg 29.8 MCHC (32.0-36.0) % 33.4 RDW (11.7-14.6) % 13.2 Plt Count (130-400) 10^3/uL 174 MPV (8.0-11.0) fL 10.4 Immature Gran % % 0.3 Neutrophils % % 82.6 Lymphocytes % % 12.2 Monocytes % % 4.3 Eosinophils % % 0.2 Basophils % % 0.4 Nucleated RBC % (0.0-0.3) % 0.0 Absolute Neutrophils (1.2-6.7) 10^3/uL 7.63 H Absolute Lymphocytes (1.2-3.4) 10^3/uL 1.13 L Absolute Monocytes (0.1-0.8) 10^3/uL 0.40 Absolute Eosinophils (0.0-0.7) 10^3/uL 0.02 Absolute Basophils (0.0-0.2) 10^3/uL 0.04 Medical Decision Making ASSESSMENT AND PLAN Initial Assessment: 64-year-old female with severe hypotension, neck, shoulder, and arm pain, and history of brain aneurysm. Differential Diagnosis: - Aortic dissection: Given pain and history of aneurysm. Plan CTA head, neck, chest, abdomen, pelvis. - Dissection of another aneurysm: Considered due to history. Plan CTA head, neck, chest, abdomen, pelvis. - ACS - Sepsis ED Course: - Two large bore IVs established. - IV fluid bolus administered. - Screening EKG was reviewed and interpreted by me: Please see report, sinus rhythm 99 bpm, subtle ST depression noted inferior lateral. - Plan CTA head, neck, chest, abdomen, pelvis. - Lactate/cultures obtained. - CTA of the chest abdomen pelvis interpreted by radiology: 1. No evidence of aortic aneurysm nor aortic dissection. No evidence of pericardial effusion 2. Sigmoid diverticulosis without evidence of acute diverticulitis. 3. Uniformly thickened urinary bladder wall. May be in part related to under distension. - CTA of the brain and neck interpreted by radiology: IMPRESSION: 1. Both calcified and noncalcified plaque seen in both carotid bulbs and proximal ICAs in the neck but without high-grade stenosis at these levels 2. There is a significant focal stenosis at the origin of the left vertebral artery off of the left subclavian artery. Estimated at 70 percent stenosis. There is no stenosis at the origin of the right vertebral artery off of the right subclavian artery. 3. Patent intracranial arteries. 4. Again noted is a patent endovascular stent in the lower half of the left intracavernous ICA without evidence of intra stent stenosis. There is no flow evident within the adjacent excluded small aneurysm at this level, the appearance of which is similar to the prior study of 07/15/2024 1515 - Patient reassessed and blood pressure significantly improved after IV fluid. Final Assessment: Severe hypotension with unclear etiology, concern for aortic dissection or dissection of another aneurysm, and consideration of sepsis. IV fluids administered, CTA and lactate levels planned. Dispo -plan to hospitalize for further diagnostic workup. I spoke with the hospitalist who will admit the patient. Clinical Impression: - Severe hypertension - Aortic dissection - Dissection of another aneurysm - Sepsis This document was written with the assistance of AMINA Chery. The patient consented to its use. Lab Data Lab results reviewed: Yes I reviewed the patient's lab results. Labs: 03/06/25 13:12 Blood Blood Culture - Pending 03/06/25 13:12 Blood Blood Culture - Pending Laboratory Tests Range/Units 03/06/25 03/06/25 13:05 14:05 WBC (4.4-10.8) 10^3/uL 9.25 RBC (3.93-5.22) 10^6/uL 5.23 H Hgb (11.2-15.7) g/dL 15.6 Hct (36.0-46.0) % 46.7 H MCV (80-95) fL 89 MCH (27.0-33.0) pg 29.8 MCHC (32.0-36.0) % 33.4 RDW (11.7-14.6) % 13.2 Plt Count (130-400) 10^3/uL 174 MPV (8.0-11.0) fL 10.4 Immature Gran % % 0.3 Neutrophils % % 82.6 Lymphocytes % % 12.2 Monocytes % % 4.3 Eosinophils % % 0.2 Basophils % % 0.4 Nucleated RBC % (0.0-0.3) % 0.0 Absolute Neutrophils (1.2-6.7) 10^3/uL 7.63 H Absolute Lymphocytes (1.2-3.4) 10^3/uL 1.13 L Absolute Monocytes (0.1-0.8) 10^3/uL 0.40 Absolute Eosinophils (0.0-0.7) 10^3/uL 0.02 Absolute Basophils (0.0-0.2) 10^3/uL 0.04 PT (9.1-11.1) sec 10.6 INR (0.9-1.1) 1.1 APTT (20.6-30.2) sec 23.5 VBG Lactate (<or=2.0) mmol/L 1.8 Sodium (136-145) mmol/L 136 Potassium (3.5-5.1) mmol/L 3.9 Chloride (98-107) mmol/L 98 Carbon Dioxide (21.0-32.0) mmol/L 27.6 Anion Gap (3-11) mmol/L 10.4 BUN (7-18) mg/dL 16 Creatinine (0.55-1.02) mg/dL 1.5 H Est GFR (CKD-EPI 2020) (mL/min/1.73m2) 38.43 Glucose (74-106) mg/dL 367 H Calcium (8.5-10.1) mg/dL 9.0 Magnesium (1.8-2.4) mg/dL 1.7 L Total Bilirubin (0.2-1.0) mg/dL 0.4 AST (15-37) U/L 14 L ALT (14-59) U/L 19 Alkaline Phosphatase (46-116) U/L 90 Troponin I (<or=51) ng/L 5 6 Total Protein (6.4-8.2) g/dL 6.9 Albumin (3.4-5.0) g/dL 3.7 Quality:SDOH Health Related Social Needs: Health related social needs risk of homeless house/econ circumstance Health related social needs details help with housing PFSH All Active Problems (Updated 03/12/25 @ 16:17 by Rudolph Álvarez MD) Acute hypotension (Acute) Hypothyroidism (Chronic) Stenosis of left vertebral artery (Acute) Cervical radiculopathy (Acute) Labile blood pressure (Acute) Aneurysm of left internal carotid artery (Acute) [facility] note 12/11/24.HE Diabetic peripheral neuropathy (Acute) Obstructive sleep apnea (adult) (pediatric) (Acute) 11/07/24 F[facility]u at [facility]; currently using Bi Pap Postmenopausal disorder (Acute) Ongoing hot flashes. Acute nightmare disorder with associated non-sleep disorder, during sleep onset (Acute) Grief reaction (Chronic) Peroneal tendonitis of left lower extremity (Acute) Foot pain, left (Acute) Ganglion cyst of left foot (Acute) Metatarsalgia, left foot (Acute) Tobacco use disorder (Acute) Vertigo (Chronic) Managed by [facility] Otolaryngology Dizziness; Dysequilibrium Cataract (Chronic 11/28/23) Age-related nuclear cataract (H25.13) History of stroke (Acute) Sensorineural hearing loss (SNHL) of both ears (Acute) Allergic sinusitis (Acute) Myofascial muscle pain (Acute) Osteoarthritis of knee (Chronic) Asthma (Chronic) Diagnosed in 1993 Obesity (Chronic) Hypertriglyceridemia (Chronic) Gastro-esophageal reflux disease without esophagitis (Chronic 08/25/11) responds to PPI, unable to stop 02/2017 Type 2 diabetes mellitus with hyperglycemia (Acute 10/12/15) 03/2014 hospital A1C 7%; goal A1c<7.5 Liver cirrhosis (Chronic) Stroke (Chronic) Depressive disorder (Chronic) Intermittent. Polyarthritis (Acute) Unspecified visual disturbance (Acute) [facility] opthalmology Unspecified visual field defects (Acute) Exophoria (Acute) Benign paroxysmal positional vertigo of right ear (Acute) Referred otalgia of right ear (Acute) Neck pain (Acute 06/29/16) Steroid-induced hyperglycemia (Acute 03/09/14) Other sleep disturbances (Acute 08/16/12) when back hurts and left knee/leg throb, sleep is disturbed Mechanical low back pain (Acute 08/02/08) DAILY PAIN SINCE FALL ON ICE AT WORK AUG 02, 2008 WC; re-injured 06/17/12 lifting at work; MRI 09/2012: MOD FACET ARTHROPATHY L5-S1, MILD L4-5 Tens unit 09/23/14; Functional Restor prg 07/2015 Diabetes mellitus (Chronic 04/16/14) 03/2014 hospital A1C 7%; goal A1c<7.5 Chronic rhinitis (Chronic 08/25/11) Cervicalgia (Acute 06/29/16) 06/29/16 Arthropathy, unspecified (Acute 08/25/11) marjorie knees Neuropathy of finger (Chronic) Intermittent vertigo (Chronic) Trigger thumb of right hand (Chronic) Medical History Metabolic dysfunction-associated steatohepatitis (MASH) Vestibular migraine Nocturnal hypoxia Managed by [facility] (Sushma Burt NP) 11/07/24 f/u at [facility] Rheumatoid arthritis Severe obstructive sleep apnea (05/18/23) [facility] - recommend CPAP use Cerebral aneurysm (04/28/22) LICA Balance disorder Episodes of ataxic gait, per pt report (as if drunk), and veering off-road x1. Presumed BPV, but re-assessing. Hepatitis C Nonalcoholic steatohepatitis (BUI) Pako, [facility] 02/20/19. Essential hypertension Uncontrolled type 2 diabetes mellitus without complication, with long-term current use of insulin Chronic airway obstruction (06/05/14) exacerbation 03/2014 [facility]; FEV1 1.6 (58& pred; 62% FVC) no response to bronchodilators Benign paroxysmal vertigo Dr Marshall testing 2000; head CT 10/06/02 & 03/05/06; HAD IN PAST; AGAIN 02/2012; again 08/08/13 to L Hyperlipidemia History of hepatitis C S/P full treatment. Negative virology since 2001 Surgical History Internal carotid artery stent present Status post cataract extraction and insertion of intraocular lens of right eye (12/24/23) Juan Carlos Patterson MD [facility] History of laryngoscopy 04/10/19 transnasal laryngoscopy salivary gland (02/23/17) [facility], left submental ganglion wrist cyst removal x2 elbow surg x2 UGI W/ BX (10/10/17) [facility] section x3 COLONOSCOPY W/ BX (10/10/17) Family History Father Heart disease Sister COPD (chronic obstructive pulmonary disease) Obese Brother Diabetes Essential hypertension Asthma Heart disease Hypertension Brother COPD (chronic obstructive pulmonary disease) Brother Alcohol abuse Brother Neoplasm non hodgkins lymphoma Mother COPD (chronic obstructive pulmonary disease) Asthma Heart disease Hypertension Social History Smoking/Tobacco Use Status: Current every day Tobacco Type: cigarettes Tobacco: How many years used: 10 Second Hand Exposure: No Smoking risk assessment performed?: Yes Alcohol Intake: former Drug use: Never Substance use type: does not use Details: Pt uses THC gummies to help with her chronic back pain PRN Adopted: No Foster care: No Household members: family and other Details: mother Housing: house Number of Children: 3 Communication Needs: Corrective Lenses Do you need help understanding health information?: Rarely current occupation: [employer] Pets and animals: Yes Pets and animals: cat(s), dog(s) and bird(s) Sexually active: No Do you think of yourself as: straight/heterosexual Current gender identity: female What is your relationship status?: How often do you talk on the phone with friends or family?: three or more times per week How often do you get together with friends or relatives?: decline to answer How often do you attend oriental orthodox or latter-day services?: 1-3 times per year Panel score (0-1 are the most socially isolated patients): 1 What type of physical activity do you participate in: none Meg/Yazidi: None Special meg needs: No Seatbelt use: always Helmet use: Yes Helmet use: other Details: N/A 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
[2025-03-06] MEDS: Normal Saline - Diluent 50 ML VIAL IJ ×3 (13:20→14:01)
[2025-03-06] MEDS: Omnipaque 350 MG/ML 100 ML BTL IJ ×2 (13:22→13:59)
[2025-03-06 13:30] LABS: ALT 19 U/L (14-59); AST 14 U/L (15-37); Albumin 3.7 g/dL (3.4-5.0); Alkaline Phosphatase 90 U/L (46-116); Anion Gap 10.4 mmol/L (3-11); BUN 16 mg/dL (7-18); Bilirubin, Total 0.4 mg/dL (0.2-1.0); CO2 27.6 mmol/L (21.0-32.0); Calcium 9.0 mg/dL (8.5-10.1); Chloride 98 mmol/L (98-107); Estimated GFR 38.43 (mL/min/1.73m2); Glucose 367 mg/dL (74-106); Magnesium 1.7 mg/dL (1.8-2.4); Potassium 3.9 mmol/L (3.5-5.1); Sodium 136 mmol/L (136-145); Total Protein 6.9 g/dL (6.4-8.2); Troponin I 5 ng/L (<or=51)
[2025-03-06 13:34] LABS: INR 1.1 (0.9-1.1); PTT Activated 23.5 sec (20.6-30.2); Prothrombin Time 10.6 sec (9.1-11.1)
[2025-03-06] MEDS: Lactated Ringers 1,000 ML 1000 ML IV ×2 (14:06)
[2025-03-06] MEDS: ACETAMINOPHEN 500 MG/50 ML BAG 200 MG IVPB (14:30)
[2025-03-06 14:44] LABS: Troponin I 6 ng/L (<or=51)
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
[2025-03-06 16:40] LABS: Glucose 100 mg/dL (Negative)
[2025-03-06 16:51] LABS: C & S Indicated? No; RBC 0-2 HPF (0-2); WBC 0-2 HPF (0-5)
[2025-03-06] MEDS: MAGNESIUM SULFATE 2 GM/50 ML BAG IV_INF (16:55)
[2025-03-06 16:58] LABS: Troponin I 6 ng/L (<or=51)
[2025-03-06 17:00] LABS: C-Reactive Protein < 0.50 mg/dL (<or=0.5)
--- NOTE | 2025-03-06 17:10 | W.PC.ACHO ---
Registration Status: REG ER Primary Language: Preferred Language: Bengali ED Information & Data Chief Complaint GenMedical 03/06/25 13:33 Chief Complaint GenMedical 03/06/25 13:25 Triage Note patient just started 03/06/25 12:54 glipizide. has headache, neck hurts, bilateral arm pain that goes across shoulder blades, dizziness. Medical / Surgical History (Last Reviewed 03/06/25 @ 16:44 by Adriel Cervantes) Metabolic dysfunction-associated steatohepatitis (MASH) History of hepatitis C Uncontrolled type 2 diabetes mellitus without complication, with long-term current use of insulin Nonalcoholic steatohepatitis (BUI) Essential hypertension Chronic airway obstruction (06/05/14) Balance disorder Benign paroxysmal vertigo Cerebral aneurysm (04/28/22) Hyperlipidemia Vestibular migraine Nocturnal hypoxia Severe obstructive sleep apnea (05/18/23) Rheumatoid arthritis Hepatitis C (Last Reviewed 03/06/25 @ 16:44 by Adriel Cervantes) Internal carotid artery stent present Status post cataract extraction and insertion of intraocular lens of right eye (12/24/23) History of laryngoscopy salivary gland (02/23/17) ganglion wrist cyst removal x2 elbow surg x2 UGI W/ BX (10/10/17) section COLONOSCOPY W/ BX (10/10/17) Most Recent Vital Signs Temperature 35.2 C L 03/06/25 13:33 Temperature Source Tympanic 03/06/25 13:33 Pulse 80 03/06/25 17:05 Pulse 84 03/06/25 17:05 Respiratory Rate 13 03/06/25 17:05 Respiratory Effort Normal, Non-Labored 03/06/25 14:24 Respiratory Depth Normal 03/06/25 14:24 Respiratory Pattern Normal 03/06/25 14:24 Blood Pressure 119/66 03/06/25 17:05 Blood Pressure Mean 83 03/06/25 17:05 Blood Pressure Position Supine 03/06/25 13:33 Pulse Oximetry 89 L 03/06/25 17:05 Oxygen Delivery Method Nasal Cannula 03/06/25 13:33 Oxygen Flow Rate 2 03/06/25 13:33 Pain Level 6 03/06/25 13:33 Allergies fluoxetine HCl (From Prozac) Allergy (Intermediate, Verified 03/06/25 13:36) rash metformin Adverse Reaction (Severe, Verified 03/06/25 13:36) diarrhea rofecoxib (From Vioxx) Adverse Reaction (Severe, Verified 03/06/25 13:36) bleeding aspirin Adverse Reaction (Intermediate, Verified 03/06/25 13:36) GI Upset celecoxib (From Celebrex) Adverse Reaction (Intermediate, Verified 03/06/25 13:36) GI Upset naproxen Adverse Reaction (Intermediate, Verified 03/06/25 13:36) Stomach intolerance see 09/23/12 note, along with celebrex Precautions Isolation Fall precaution 03/06/25 13:33 Active Medications Generic Name Dose Route Start Last Admin Trade Name Freq PRN Reason Stop Dose Admin Magnesium Sulfate 2 gm in 50 mls @ 25 mls/hr 03/06/25 16:30 03/06/25 16:55 IV_INF 03/06/25 18:29 25 mls/hr NOW ONE Administration Iohexol 100 ml 03/06/25 13:30 03/06/25 13:22 Omnipaque 350 Mg/Ml 100 Ml Btl IJ 04/05/25 23:59 100 ml DIRECTED CLAUS Administration Iohexol 100 ml 03/06/25 13:30 03/06/25 13:59 Omnipaque 350 Mg/Ml 100 Ml Btl IJ 04/05/25 23:59 70 ml DIRECTED CLAUS Administration Sodium Chloride 0 ml 03/06/25 20:00 03/06/25 13:19 Normal Saline Flush 10 Ml Syr IVP 10 ml BID CLAUS Administration Sodium Chloride 0 ml 03/06/25 13:19 03/06/25 14:01 Normal Saline Flush 10 Ml Syr IVP 10 ml PRN PRN Administration Sodium Chloride 50 ml 03/06/25 13:30 03/06/25 14:01 Normal Saline - Diluent 50 Ml Vial IJ 50 ml DIRECTED CLAUS Administration IV IV Catheter Type [Left Saline Lock Antecubital] IV Catheter Type [Right Saline Lock Antecubital] IV Catheter Gauge [Left 18 Antecubital] IV Catheter Gauge [Right 18 Antecubital] Diet Orders Category Date Time Status Diabetes Consistent CHO/Heart Healthy [DIET] Nutrition 03/06/25 Dinner Active Diagnostics 03/06/25 03/06/25 03/06/25 Range/Units 16:31 16:28 14:05 WBC (4.4-10.8) 10^3/uL RBC (3.93-5.22) 10^6/uL Hgb (11.2-15.7) g/dL Hct (36.0-46.0) % MCV (80-95) fL MCH (27.0-33.0) pg MCHC (32.0-36.0) % RDW (11.7-14.6) % Plt Count (130-400) 10^3/uL MPV (8.0-11.0) fL Immature Gran % % Neutrophils % % Lymphocytes % % Monocytes % % Eosinophils % % Basophils % % Nucleated RBC % (0.0-0.3) % Absolute Neutrophils (1.2-6.7) 10^3/uL Absolute Lymphocytes (1.2-3.4) 10^3/uL Absolute Monocytes (0.1-0.8) 10^3/uL Absolute Eosinophils (0.0-0.7) 10^3/uL Absolute Basophils (0.0-0.2) 10^3/uL PT (9.1-11.1) sec INR (0.9-1.1) APTT (20.6-30.2) sec VBG Lactate 1.8 (<or=2.0) mmol/L Sodium (136-145) mmol/L Potassium (3.5-5.1) mmol/L Chloride (98-107) mmol/L Carbon Dioxide (21.0-32.0) mmol/L Anion Gap (3-11) mmol/L BUN (7-18) mg/dL Creatinine (0.55-1.02) mg/dL Est GFR (CKD-EPI 2020) (mL/min/1.73m2) Glucose (74-106) mg/dL Calcium (8.5-10.1) mg/dL Magnesium (1.8-2.4) mg/dL Total Bilirubin (0.2-1.0) mg/dL AST (15-37) U/L ALT (14-59) U/L Alkaline Phosphatase (46-116) U/L Troponin I 6 6 (<or=51) ng/L C-Reactive Protein < 0.50 (<or=0.5) mg/dL Total Protein (6.4-8.2) g/dL Albumin (3.4-5.0) g/dL Cortisol Urine Color Yellow (Yellow) Urine Clarity Clear (Clear) Urine pH 7.0 (5-8) Ur Specific [place] 1.010 (1.005-1.025) Urine Protein 30 H (Neg-Trace) mg/dL Urine Ketones Negative (Negative) mg/dL Urine Blood Negative (Negative) Urine Nitrite Negative (Negative) Urine Bilirubin Negative (Negative) Urine Urobilinogen 0.2 (Up to 0.2) mg/dL Ur Leukocyte Esterase Negative (Negative) Urine RBC 0-2 (0-2) HPF Urine WBC 0-2 (0-5) HPF Ur Epithelial Cells Moderate (Negative) HPF Urine Crystals Negative (Negative) HPF Urine Bacteria Many (Negative) HPF Urine Casts Negative (Negative) LPF Urine Mucus Negative (Negative) Ur Culture Indicated? No Urine Glucose 100 H (Negative) mg/dL 03/06/25 Range/Units 13:05 WBC 9.25 (4.4-10.8) 10^3/uL RBC 5.23 H (3.93-5.22) 10^6/uL Hgb 15.6 (11.2-15.7) g/dL Hct 46.7 H (36.0-46.0) % MCV 89 (80-95) fL MCH 29.8 (27.0-33.0) pg MCHC 33.4 (32.0-36.0) % RDW 13.2 (11.7-14.6) % Plt Count 174 (130-400) 10^3/uL MPV 10.4 (8.0-11.0) fL Immature Gran % 0.3 % Neutrophils % 82.6 % Lymphocytes % 12.2 % Monocytes % 4.3 % Eosinophils % 0.2 % Basophils % 0.4 % Nucleated RBC % 0.0 (0.0-0.3) % Absolute Neutrophils 7.63 H (1.2-6.7) 10^3/uL Absolute Lymphocytes 1.13 L (1.2-3.4) 10^3/uL Absolute Monocytes 0.40 (0.1-0.8) 10^3/uL Absolute Eosinophils 0.02 (0.0-0.7) 10^3/uL Absolute Basophils 0.04 (0.0-0.2) 10^3/uL PT 10.6 (9.1-11.1) sec INR 1.1 (0.9-1.1) APTT 23.5 (20.6-30.2) sec VBG Lactate (<or=2.0) mmol/L Sodium 136 (136-145) mmol/L Potassium 3.9 (3.5-5.1) mmol/L Chloride 98 (98-107) mmol/L Carbon Dioxide 27.6 (21.0-32.0) mmol/L Anion Gap 10.4 (3-11) mmol/L BUN 16 (7-18) mg/dL Creatinine 1.5 H (0.55-1.02) mg/dL Est GFR (CKD-EPI 2020) 38.43 (mL/min/1.73m2) Glucose 367 H (74-106) mg/dL Calcium 9.0 (8.5-10.1) mg/dL Magnesium 1.7 L (1.8-2.4) mg/dL Total Bilirubin 0.4 (0.2-1.0) mg/dL AST 14 L (15-37) U/L ALT 19 (14-59) U/L Alkaline Phosphatase 90 (46-116) U/L Troponin I 5 (<or=51) ng/L C-Reactive Protein (<or=0.5) mg/dL Total Protein 6.9 (6.4-8.2) g/dL Albumin 3.7 (3.4-5.0) g/dL Cortisol Pending Urine Color (Yellow) Urine Clarity (Clear) Urine pH (5-8) Ur Specific [place] (1.005-1.025) Urine Protein (Neg-Trace) mg/dL Urine Ketones (Negative) mg/dL Urine Blood (Negative) Urine Nitrite (Negative) Urine Bilirubin (Negative) Urine Urobilinogen (Up to 0.2) mg/dL Ur Leukocyte Esterase (Negative) Urine RBC (0-2) HPF Urine WBC (0-5) HPF Ur Epithelial Cells (Negative) HPF Urine Crystals (Negative) HPF Urine Bacteria (Negative) HPF Urine Casts (Negative) LPF Urine Mucus (Negative) Ur Culture Indicated? Urine Glucose (Negative) mg/dL 03/06/25 15:58 Blood Culture - Pending Blood 03/06/25 15:48 Blood Culture - Pending Blood [id number] Documentation Fingerstick Glucose Start: 03/06/25 12:56 Freq: Status: Active Protocol: Activity Type Activity Date Activity User E-sign Co-sign Detail Recorded Client Recorded Date Recorded By Document 03/06/25 12:54 ANALI OWUSU(10) [id number] 03/06/25 12:56 ANALI OWUSU(10) Intake and Output - 24 Hour Total 03/06/25 12:40 thru 03/06/25 14:45 Intake Total 2059 Balance 2059 Weight 84.822 kg Intake: IV 2059 Falls Risk Assessment History of Falls No History 03/06/25 13:34 Contributing Factors Impairments 03/06/25 13:34 Ambulatory Aids Independent 03/06/25 13:34 Tubes/Lines With any additional score 03/06/25 13:34 Gait Evaluation No gait disturbance 03/06/25 13:34 Cognition No cognitive impairment 03/06/25 13:34 Fall Total Score 23 03/06/25 13:34 Level of Risk Standard/Low Risk 03/06/25 13:34 v v v v v v v v v Sending and/or Receiving Nurses: Please use comment section below to note any information pertinent to the patient hand-off not included above. Information / Comments: Report received from: Raegan ROSENBERG
--- NOTE | 2025-03-06 18:25 | RESPIRATORY ---
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
[2025-03-06] MEDS: Lactated Ringers 1,000 ML 120 ML IV (18:33)
[2025-03-06 19:53] LABS: NT-proBNP 72 pg/mL (<300)
[2025-03-06] MEDS: Pregabalin 100 MG CAP 400 MG PO (21:28)
[2025-03-06] MEDS: Hydroxychloroquine 200 MG TAB PO (21:28)
[2025-03-07] VITALS (67 sets, daily range): BP systolic 106–166; BP diastolic 54–91; PULSE 62–112; RESP 11–31; TEMP 36.4–36.7; O2SAT 91–96
[2025-03-07 00:18] LABS: Hemoglobin A1C 10.8 % (<5.7)
[2025-03-07] MEDS: Lactated Ringers 1,000 ML 120 ML IV (02:18)
[2025-03-07 06:30] LABS: HCT 41.8 % (36.0-46.0); HGB 13.9 g/dL (11.2-15.7); MCH 29.7 pg (27.0-33.0); MCHC 33.3 % (32.0-36.0); MCV 89 fL (80-95); MPV 10.5 fL (8.0-11.0); Platelet Count 152 10^3/uL (130-400); RBC 4.68 10^6/uL (3.93-5.22); RDW 13.2 % (11.7-14.6); RDW-SD 43.7 fL; WBC 8.47 10^3/uL (4.4-10.8)
[2025-03-07 06:50] LABS: Anion Gap 5.4 mmol/L (3-11); BUN 13 mg/dL (7-18); CO2 30.6 mmol/L (21.0-32.0); Calcium 8.6 mg/dL (8.5-10.1); Chloride 101 mmol/L (98-107); Estimated GFR 70.95 (mL/min/1.73m2); Glucose 180 mg/dL (74-106); Magnesium 2.1 mg/dL (1.8-2.4); Potassium 3.5 mmol/L (3.5-5.1); Sodium 137 mmol/L (136-145)
--- NOTE | 2025-03-07 07:51 | PDOC.CMIN ---
Date of service: 03/07/25 Time of Service: 07:51 Care Management Initial Assmt Initial Assessment Reason for Hospitalization: Hypotension, hypovolemic shock Functional Status/Living Situation Patient Presentation: Mary Beth was lying in bed and awake when CM met with her. Mary Beth presented to the ED yesterday afternoon with severe headache. Today, Mary Beth is pleasant and willing to engage in conversation. Mary Beth reports that she is living in [facility] with her daughter and her cat. Mary Beth states she is living in her daughters home but at somepoint would like to move out and is wanting resources to do that; CAITIE pamphlet offered for community resources. Town of Residence: [place], [place] Resides with: Child (Daughter) Significant Other/Family: Local Natural Supports: family Employment Status: Employed Instrumental Activities of Daily Living (ADLs): Independent Medications Medication Management: No Issues/Barriers identified Advance Directives Advance Directives: Do you have an Advance Directive: N 12/16/12, 11:38 AD On File at [facility]: N 09/26/12, 12:47 Date Asked 03/06/25 03/06/25, 12:48 AD Date Reviewed COLST On File at [facility] COLST Date Scanned Code Status Resuscitation Status Full Code Portal Pt does not currently have a portal and education provided: Yes Insurance Coverage/Financial Issues Insurance: BC/BS [facility] Advantage - [id number] SELF PAY Care Team Visit Care Team Role Provider Type Hai Lopez DO Primary Care Provider OSTEOPATHIC DOCTOR Millicent Stern RDN, [facility] Other Providers MARINE SCIENTIST Aristides Gomez RDN Other Providers MARINE SCIENTIST Rudolph Álvarez MD Emergency Provider [facility] STAFF PHYSICIAN Adriel Cervantes Admit Provider [facility] STAFF PHYSICIAN Attending Provider Discharge Potential Discharge Needs: PCP F/U Appt Anticipated Barriers to Discharge: Medical Status Patient/Family Education Needs: Review discharge instructions, discuss Ask Me Three Transportation: Private vehicle Plan: Anticipate Mary Beth will be discharged home with no new services indicated once medically ready. It is recommenced she follow up with her community providers and continue per her discharge plan of care. Mary Beth will transport home via private vehicle. CM will continue to follow. Social Determinants of Health Screening Social Determinants of health last assessed in clinic: 03/07/25 Will the Patient Participate in the Screening?: Yes Do you worry about having a steady place to live?: yes What is your living situation today?: I have housing today, but am worried about losing it Problems where you live: no known problems In the past 12 months, have you had to go without electric, gas, oil or water in your home?: no 1. Within the past 12 months, we worried whether our food would run out before we got money to buy more.: Never true 2. Within the past 12 months, the food we bought just didn't last and we didn't have money to get more.: Never true Has lack of transportation kept you from medical appointments or from doing things needed for daily living?: no Has anyone in your life made you feel unsafe or unsupported?: no How hard is it for you to pay for the very basics like food, housing, medical care, and heating? Would you say it is:: Somewhat hard Do you want help finding or keeping work or a job?: I do not need or want help If for any reason you need help with day-to-day activities such as bathing, preparing meals, shopping, managing finances, etc., do you get the help you need?: I don?t need any help How often do you feel lonely or isolated from those around you?: Never Do you speak a language other than [place] at home?: No Does the patient want assistance with any of the above?: No Comments: Pt is living with daughter but states she has tried to find her own housing and can not, would like help Health Related Social Needs Health related social needs: housing instability, housed, with risk of homelessness (Z59.811) and problems related to housing/economic circumstances (Z59.89) Health related social needs details: help with housing PFSH All Active Problems (Updated 03/06/25 @ 17:10 by Adriel Cervantes) DVT prophylaxis (Acute) Hypotension (Acute) Aneurysm of left internal carotid artery (Acute) [facility] Neuro note 12/11/24.HE Diabetic peripheral neuropathy (Acute) Obstructive sleep apnea (adult) (pediatric) (Acute) 11/07/24 F[facility]u at [facility]; currently using Bi Pap Postmenopausal disorder (Acute) Ongoing hot flashes. Acute nightmare disorder with associated non-sleep disorder, during sleep onset (Acute) Grief reaction (Chronic) Peroneal tendonitis of left lower extremity (Acute) Foot pain, left (Acute) Ganglion cyst of left foot (Acute) Metatarsalgia, left foot (Acute) Tobacco use disorder (Acute) Vertigo (Chronic) Managed by [facility] Otolaryngology Dizziness; Dysequilibrium Cataract (Chronic 11/28/23) Age-related nuclear cataract (H25.13) History of stroke (Acute) Sensorineural hearing loss (SNHL) of both ears (Acute) Allergic sinusitis (Acute) Myofascial muscle pain (Acute) Osteoarthritis of knee (Chronic) Asthma (Chronic) Diagnosed in 1993 Obesity (Chronic) Hypertriglyceridemia (Chronic) Gastro-esophageal reflux disease without esophagitis (Chronic 08/25/11) responds to PPI, unable to stop 02/2017 Type 2 diabetes mellitus with hyperglycemia (Acute 10/12/15) 03/2014 hospital A1C 7%; goal A1c<7.5 Liver cirrhosis (Chronic) Stroke (Chronic) Depressive disorder (Chronic) Intermittent. Polyarthritis (Acute) Unspecified visual disturbance (Acute) [facility] opthalmology Unspecified visual field defects (Acute) Exophoria (Acute) Benign paroxysmal positional vertigo of right ear (Acute) Referred otalgia of right ear (Acute) Neck pain (Acute 06/29/16) Steroid-induced hyperglycemia (Acute 03/09/14) Other sleep disturbances (Acute 08/16/12) when back hurts and left knee/leg throb, sleep is disturbed Mechanical low back pain (Acute 08/02/08) DAILY PAIN SINCE FALL ON ICE AT WORK AUG 02, 2008 WC; re-injured 06/17/12 lifting at work; MRI 09/2012: MOD FACET ARTHROPATHY L5-S1, MILD L4-5 Tens unit 09/23/14; Functional Restor prg 07/2015 Diabetes mellitus (Chronic 04/16/14) 03/2014 hospital A1C 7%; goal A1c<7.5 Chronic rhinitis (Chronic 08/25/11) Cervicalgia (Acute 06/29/16) 06/29/16 Arthropathy, unspecified (Acute 08/25/11) marjorie knees Neuropathy of finger (Chronic) Intermittent vertigo (Chronic) Trigger thumb of right hand (Chronic) Medical History Metabolic dysfunction-associated steatohepatitis (MASH) Vestibular migraine Nocturnal hypoxia Managed by [facility] (Sushma Burt NP) 11/07/24 f/u at Sleep Clinic Rheumatoid arthritis Severe obstructive sleep apnea (05/18/23) [facility] - recommend CPAP use Cerebral aneurysm (04/28/22) LICA Balance disorder Episodes of ataxic gait, per pt report (as if drunk), and veering off-road x1. Presumed BPV, but re-assessing. Hepatitis C Nonalcoholic steatohepatitis (BUI) Pako [facility] 02/20/19. Essential hypertension Uncontrolled type 2 diabetes mellitus without complication, with long-term current use of insulin Chronic airway obstruction (06/05/14) exacerbation 03/2014 [facility]; FEV1 1.6 (58& pred; 62% FVC) no response to bronchodilators Benign paroxysmal vertigo Dr Marshall testing 2000; head CT 10/06/02 & 03/05/06; HAD IN PAST; AGAIN 02/2012; again 08/08/13 to L Hyperlipidemia History of hepatitis C S/P full treatment. Negative virology since 2001 Surgical History Internal carotid artery stent present Status post cataract extraction and insertion of intraocular lens of right eye (12/24/23) Juan Carlos Patterson MD [facility] History of laryngoscopy 04/10/19 transnasal laryngoscopy salivary gland (02/23/17) [facility], left submental ganglion wrist cyst removal x2 elbow surg x2 UGI W/ BX (10/10/17) [facility] section x3 COLONOSCOPY W/ BX (10/10/17) Family History Father Heart disease Sister COPD (chronic obstructive pulmonary disease) Obese Brother Diabetes Essential hypertension Asthma Heart disease Hypertension Brother COPD (chronic obstructive pulmonary disease) Brother Alcohol abuse Brother Neoplasm non hodgkins lymphoma Mother COPD (chronic obstructive pulmonary disease) Asthma Heart disease Hypertension Social History Smoking/Tobacco Use Status: Current every day Tobacco Type: cigarettes Tobacco: How many years used: 10 Second Hand Exposure: No Smoking risk assessment performed?: Yes Alcohol Intake: former Drug use: Never Substance use type: does not use Adopted: No Foster care: No Household members: family and other Details: mother Housing: house Number of Children: 3 Communication Needs: Corrective Lenses Do you need help understanding health information?: Rarely 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 Pets and animals: Yes Pets and animals: cat(s), dog(s) and bird(s) Sexually active: No Do you think of yourself as: straight/heterosexual Current gender identity: female What is your relationship status?: How often do you talk on the phone with friends or family?: three or more times per week How often do you get together with friends or relatives?: decline to answer How often do you attend jewish or gnosticist services?: 1-3 times per year Panel score (0-1 are the most socially isolated patients): 1 What type of physical activity do you participate in: none Meg/Mandaen: None Special meg needs: No Seatbelt use: always Helmet use: Yes Helmet use: other Details: N/A Drive intox or ride w/intox utility worker driver: No Working smoke detector in home: Yes Fire extinguisher in home: Yes Carbon monox detector in home: Yes Do you feel safe at home: Yes Do you feel safe in your relationship?: Yes Readmission Within the Past 30 Days Yes or No: No
[2025-03-07] MEDS: Acetaminophen 325 MG TAB 650 MG PO (08:08)
[2025-03-07] MEDS: Pantoprazole 40 MG TABCR PO (08:08)
[2025-03-07] MEDS: Pregabalin 100 MG CAP 200 MG PO (08:14)
[2025-03-07] MEDS: Enoxaparin 40 MG/0.4 ML SYR SC (08:14)
[2025-03-07] MEDS: Insulin Aspart 300 UNITS/3 ML PEN SC ×3 (08:15→11:57)
[2025-03-07] MEDS: PARoxetine 20 MG TAB 40 MG PO (08:15)
[2025-03-07] MEDS: Aspirin E.C. 81 MG TABEC PO (08:15)
[2025-03-07] MEDS: SITagliptin 100 MG TAB PO (08:15)
[2025-03-07] MEDS: Normal Saline Flush 10 ML SYR IVP (08:16)
--- NOTE | 2025-03-07 11:03 | CMDISCH_ITS ---
Date of service: 03/07/25 Time of Service: 12:35 LACE Index Scoring Tool Questions: Length of Stay (in days): 1 Was the patient admitted via the E.D.?: Yes Comorbidities: Diabetes w/o Complication E.D. Visits: 2 Answers: Total Score: 7 Risk of Readmission: Low Risk Care Management Discharge Plan Reason for Hospitalization: Hypotension, hypovolemic shock Discharge Plan: Mary Beth will be discharged home today with no new services indicated. It is recommended she follow up with her community providers and continue per her discharge plan of care. She will be transported via private vehicle by driving herself. Patient/Family Education Needs: Review of discharge instructions, activity, limitations, and plan of care. Discuss ask me three. SDOH Health Related Social Needs: Health related social needs risk of homeless house/eco n circumstance Health related social needs details help with housing Health related social needs details: help with housing
--- NOTE | 2025-03-07 11:38 | W.PM.DS.N ---
Date of service: 03/07/25 Time of Service: 11:38 DS: Diagnosis Discharge Diagnosis (1) Hypotension: Status: Acute (2) JAQUAN (acute kidney injury): Status: Inactive (3) Tobacco use disorder: Status: Acute (4) Metabolic dysfunction-associated steatohepatitis (MASH): (5) Type 2 diabetes mellitus with hyperglycemia: Status: Acute (6) Aneurysm of left internal carotid artery: Status: Acute (7) DVT prophylaxis: Status: Acute Discharge Plan Disposition Patient Disposition: Home Condition: Stable Discharge Details Reason For Visit: hypotension, hypovolemic shock Admit Date/Time: 03/06/25 16:23 Admit Provider: Adriel Cervantes Attending Provider: Adriel Cervantes Primary Care Provider: Hai Lopez [place] Hospital Course Hospital Course: 64 yo F with poorly controlled IDDM, JEAN-PAUL, smoking, internal coratid aneurysm, TIA/CVA, rheumatoid arhritis and chronic myofacial pain, PTSD who presented to the emergency room wiith lightheadedness associated with neck and shoulder pain and was found to be profoundly hypotensive with initial blood pressures as low as 45/33 that persisted for the first 40 minutes of rescescutation. After 2 liters of LR, her blood pressure stabilized. She had CTA of head/neck/chest/abd/pelvis that did not show any bleed or dissection or other acute pathology. There was no signs of infection, no fever or elevated WBC count. Her examination was benign. She had just started glipizide the morning of her symptoms, but her blood sugar was not low. She was admitted to the ICU for supportive care. Overnight her blood pressure was stable. By the next morning her blood pressure was mildly elevated, with her lisinopril and prazosin having been held. Adrenal insufficiency was considered. Random and AM cortisols were sent, along with morning aldosterone. We did not use steroids as she has responded poorly to them before. Blood cultures were pending at the time of discharge but were negative x 24hr. Her Hgb A1c was 10.8%. She had recently stopped empagliflozin for financial reasons and does not tolerate metformin. Glipizide was discontinued as she was already on basal/bolus insulin and she seemed to have an idiosyncratic reaction to this medication. We did confirm the medication she took had the stamping of glipizide 5mg. She did report a low sugar down to 62 at midnight the night before her admission, though her blood sugar was not low when evaluated here. She may have experienced stress response from Somogyi effect. We discussed moderating basal insulin and titrating meal time insulin and after checking her sugars more regularly (has older patch monitor that needs to be scanned to read). She was not taking the morning degludec so this was removed from her list. After a discussion, she was started on pioglitazone. Recent reviews suggest risk of CHF and bladder cancer is of questionalbe significance, and this should lower blood sugar and decrease MASLD associated inflammation. GLP-1 would be preferred but she cannot afford this. The patient carries a diagnosis of cirrhosis, but her current labs and recent imaging do not support this. Her fibrosis-4 score was 1.34, which speaks strongly against advnaced fibrosis. Fibroscan could help clarify this. Recommendations for Follow Up Recommended tests to be ordered by follow up provider: follow up 1-2 weeks on blood sugar and blood pressure, follow send out labs including cultures, cortisol and aldosterone. Home Meds and New Rx's Prescriptions: New pioglitazone 15 mg Tablet 15 mg PO DAILY Qty: 30 2RF Continued aspirin [Adult Aspirin Regimen] 81 mg tablet,delayed release (DR/EC) 81 mg PO DAILY Rx Instructions: Must be Enteric-Coated. EO albuterol sulfate 1.25 mg/3 mL solution for nebulization 1.25 mg IH QID PRN (Reason: shortness of breath or wheezing) Qty: 120 11RF Lamont Saline 0.65 % aerosol,spray 2 spray intranasal QID PRN (Reason: dry nasal passages) Qty: 50 1RF fluticasone furoate 27.5 mcg/actuation spray,suspension 2 spray intranasal DAILY Qty: 9.1 1RF Rx Instructions: into each nostril ondansetron 4 mg tablet,disintegrating 4 mg PO Q8H PRN (Reason: nausea and vomiting) Qty: 30 0RF diazepam 10 mg tablet 10 mg PO QHS PRN (Reason: insomnia) Qty: 14 0RF lorazepam 1 mg tablet 1 mg PO Q8H PRN (Reason: anxiety) Qty: 20 0RF Nurtec ODT 75 mg tablet,disintegrating 75 mg PO ONCE PRN (Reason: migraine headache) Qty: 8 5RF Rx Instructions: as a single dose; no more than 1 tab per day prazosin 5 mg capsule 5 mg PO QHS Qty: 90 3RF (DME) FreeStyle Coby 2 Sensor Kit See Rx Instructions .ROUTE .COMPLEX Qty: 1 11RF Dose Instruction: USE DIRECTED TO KEEP HBA1C LESS THAN 6.5% Rx Instructions: USE DIRECTED TO KEEP HBA1C LESS THAN 6.5% albuterol sulfate [Ventolin HFA] 90 mcg/actuation HFA aerosol inhaler 2 puff inhalation Q6H PRN (Reason: shortness of breath or wheezing) Qty: 8.5 6RF paroxetine HCl 40 mg tablet 40 mg PO DAILY Qty: 90 3RF pantoprazole 40 mg tablet,delayed release (DR/EC) 40 mg PO DAILY Qty: 90 3RF hydroxychloroquine 200 mg tablet 200 mg PO DAILY Qty: 90 3RF Januvia 100 mg tablet 100 mg PO DAILY Qty: 90 3RF (DME) FreeStyle Coby 14 Day [place] Misc See Rx Instructions .ROUTE .MEDSUPPLY Qty: 1 0RF Rx Instructions: As directed (DME) pen needle, diabetic [BD Ultra-Fine Mini Pen Needle] 31 gauge x 3/16 needle See Dose Instructions .ROUTE .MEDSUPPLY Qty: 100 12RF Dose Instruction: As directed Rx Instructions: As directed acetaminophen [Acetaminophen Extra Strength] 500 mg tablet 1,000 mg PO Q6H PRN lisinopril 20 mg tablet 20 mg PO DAILY Qty: 90 3RF Rx Instructions: to lower blood pressure under 130/85 insulin lispro [Humalog KwikPen Insulin] 100 unit/mL insulin pen See Rx Instructions SC TID MDD 27 units Qty: 15 3RF Rx Instructions: Take 2 units for for every 30G carbs. Sliding scale 141-160 1 unit,161-180 2units,181-200 3 units,201-220 4 units,221-240 5 units, 241-260 6 units, 261-280 7 units, 281-300 8units, 300 or higher 9 units and call ( [facility] ENDOCCRINOLOGY SLIDING SCALE) pregabalin 200 mg capsule 200 mg PO TID Qty: 270 2RF Changed insulin degludec [Tresiba FlexTouch U-200] 200 unit/mL (3 mL) insulin pen 50 unit subcut HS MDD 84 units Qty: 9 6RF Discontinued glipizide 5 mg tablet 5 mg PO DAILY Qty: 90 3RF Discharge Instructions Additional Instructions: Do not take glipizide. Try the pioglitazone instead. Keep working on adjusting the insulin and your diet to better control the blood sugar. Use the lispro before each meal. Your hemoglobin A1c was 10.8%. Your goal is 7-8% keep working on quitting smoking Make sure you answer lena from the hospital in case some one of the tests is positive and we need to talk to you. Referrals: Hai Lopez DO [Primary Care Provider, Medicine] Referral Note: Please call office on Sunday to schedule follow-up appointment. Follow-up appointment should be within 7-10 days of discharge from ICU. Activity:: Activity as Tolerated Equipment/Supplies:: No Equipment Needed Diet:: Carb Counting Discharge Orders Discharge Orders: Discharge Order (Routine); Ordered 03/07/25 Ordered By: Adriel Cervantes Discharge Data Discharge Date/Time-TO BE ENTERED AT DEPARTURE: 03/07/25 12:49 DS: Summary Time Spent with Patient providing and/or coordinating discharge services: Greater than 30 minutes Status at Discharge Functional status at discharge: independent ambulation Overall status at discharge: patient is back to baseline Mental Status: mental status grossly normal Speech and Movement: speech and movement normal Mood: congruent mood Affect: normal affect Quality:SDOH Health Related Social Needs: Health related social needs risk of homeless house/econ circumstance Health related social needs details help with housing Health related social needs details: help with housing Exam Narrative Exam Narrative: GEN: Alert and oriented. No acute distress, walking hallways. LUNGS: CTAB, normal effort CV: RRR with no murmurs, gallops, or rubs. ABD: active bowel sounds, soft, nontender and nondistended. No masses. EXT: no cyanosis, clubbing, or edema Psych Mental Status: mental status grossly normal Speech and Movement: speech and movement normal Mood: congruent mood Affect: normal affect DS: Data Vitals/I&O Vitals and I&O: Vital Signs Temperature 36.7 C 03/07/25 09:30 Temperature Source Temporal Artery Scan 03/07/25 09:30 Pulse 71 03/07/25 09:01 Pulse 79 03/07/25 09:01 Respiratory Rate 17 03/07/25 09:01 Respiratory Effort Normal, Non-Labored 03/06/25 17:53 Respiratory Depth Normal 03/06/25 17:53 Respiratory Pattern Normal 03/06/25 17:53 Blood Pressure 135/73 03/07/25 09:01 Blood Pressure Mean 90 03/07/25 09:01 Blood Pressure Position Supine 03/06/25 17:53 Pulse Oximetry 91 L 03/07/25 07:01 Oxygen Delivery Method Nasal Cannula 03/06/25 17:53 Oxygen Flow Rate 1 03/06/25 17:53 Pain Level 5 03/07/25 08:08 Comment by prior shift/nurse 03/07/25 06:00 Intake & Output 03/06/25 03/06/25 03/07/25 11:59 23:59 11:59 Intake Total 2820 / 2820 2180 / 2180 Output Total 350 / 350 500 / 500 Balance 2470 / 2470 1680 / 1680 Weight 84.4 kg 85.4 kg Intake: IV 2059 / 2059 1930 / 1930 Oral 760 / 760 250 / 250 Output: Urine 350 / 350 500 / 500 Other: Urine Color Yellow Yellow Urine Appearance Clear Clear Urine Odor Normal Normal Data Completed and Pending Labs on day of discharge: Labs from last 24 hours 03/07/25 03/07/25 03/06/25 08:08 05:40 16:31 WBC 8.47 RBC 4.68 Hgb 13.9 Hct 41.8 MCV 89 MCH 29.7 MCHC 33.3 RDW 13.2 Plt Count 152 MPV 10.5 Immature Gran % Neutrophils % Lymphocytes % Monocytes % Eosinophils % Basophils % Nucleated RBC % Absolute Neutrophils Absolute Lymphocytes Absolute Monocytes Absolute Eosinophils Absolute Basophils PT INR APTT VBG Lactate Sodium 137 Potassium 3.5 Chloride 101 Carbon Dioxide 30.6 Anion Gap 5.4 BUN 13 Creatinine 0.9 Est GFR (CKD-EPI 2020) 70.95 Glucose 180 H Hemoglobin A1c Calcium 8.6 Magnesium 2.1 Total Bilirubin AST ALT Alkaline Phosphatase Troponin I 6 C-Reactive Protein < 0.50 NT-Pro-B Natriuret Pep 72 Total Protein Albumin Aldosterone Pending Cortisol Pending Urine Color Urine Clarity Urine pH Ur Specific [place] Urine Protein Urine Ketones Urine Blood Urine Nitrite Urine Bilirubin Urine Urobilinogen Ur Leukocyte Esterase Urine RBC Urine WBC Ur Epithelial Cells Urine Crystals Urine Bacteria Urine Casts Urine Mucus Ur Culture Indicated? Urine Glucose 03/06/25 03/06/25 03/06/25 16:28 14:05 13:05 WBC 9.25 RBC 5.23 H Hgb 15.6 Hct 46.7 H MCV 89 MCH 29.8 MCHC 33.4 RDW 13.2 Plt Count 174 MPV 10.4 Immature Gran % 0.3 Neutrophils % 82.6 Lymphocytes % 12.2 Monocytes % 4.3 Eosinophils % 0.2 Basophils % 0.4 Nucleated RBC % 0.0 Absolute Neutrophils 7.63 H Absolute Lymphocytes 1.13 L Absolute Monocytes 0.40 Absolute Eosinophils 0.02 Absolute Basophils 0.04 PT 10.6 INR 1.1 APTT 23.5 VBG Lactate 1.8 Sodium 136 Potassium 3.9 Chloride 98 Carbon Dioxide 27.6 Anion Gap 10.4 BUN 16 Creatinine 1.5 H Est GFR (CKD-EPI 2020) 38.43 Glucose 367 H Hemoglobin A1c 10.8 H Calcium 9.0 Magnesium 1.7 L Total Bilirubin 0.4 AST 14 L ALT 19 Alkaline Phosphatase 90 Troponin I 6 5 C-Reactive Protein NT-Pro-B Natriuret Pep Total Protein 6.9 Albumin 3.7 Aldosterone Cortisol Pending Urine Color Yellow Urine Clarity Clear Urine pH 7.0 Ur Specific [place] 1.010 Urine Protein 30 H Urine Ketones Negative Urine Blood Negative Urine Nitrite Negative Urine Bilirubin Negative Urine Urobilinogen 0.2 Ur Leukocyte Esterase Negative Urine RBC 0-2 Urine WBC 0-2 Ur Epithelial Cells Moderate Urine Crystals Negative Urine Bacteria Many Urine Casts Negative Urine Mucus Negative Ur Culture Indicated? No Urine Glucose 100 H 03/06/25 15:58 Blood Blood Culture - Pending 03/06/25 15:48 Blood Blood Culture - Pending Preliminary micro results at discharge 03/06/25 15:58 Blood Blood Culture - Pending 03/06/25 15:48 Blood Blood Culture - Pending [facility] All Active Problems (Updated 03/06/25 @ 17:10 by Adriel Cervantes) DVT prophylaxis (Acute) Hypotension (Acute) Aneurysm of left internal carotid artery (Acute) [facility] Neuro note 12/11/24.HE Diabetic peripheral neuropathy (Acute) Obstructive sleep apnea (adult) (pediatric) (Acute) 11/07/24 F[facility]u at [facility]; currently using Bi Pap Acute nightmare disorder with associated non-sleep disorder, during sleep onset (Acute) Grief reaction (Chronic) Peroneal tendonitis of left lower extremity (Acute) Foot pain, left (Acute) Ganglion cyst of left foot (Acute) Metatarsalgia, left foot (Acute) Vertigo (Chronic) Managed by [facility] Otolaryngology Dizziness; Dysequilibrium Cataract (Chronic 11/28/23) Age-related nuclear cataract (H25.13) History of stroke (Acute) Sensorineural hearing loss (SNHL) of both ears (Acute) Allergic sinusitis (Acute) Myofascial muscle pain (Acute) Stroke (Chronic) Polyarthritis (Acute) Unspecified visual disturbance (Acute) [facility] opthalmology Unspecified visual field defects (Acute) Exophoria (Acute) Benign paroxysmal positional vertigo of right ear (Acute) Referred otalgia of right ear (Acute) Neck pain (Acute 06/29/16) Steroid-induced hyperglycemia (Acute 03/09/14) Liver cirrhosis (Chronic) Type 2 diabetes mellitus with hyperglycemia (Acute 10/12/15) 03/2014 hospital A1C 7%; goal A1c<7.5 Other sleep disturbances (Acute 08/16/12) when back hurts and left knee/leg throb, sleep is disturbed Mechanical low back pain (Acute 08/02/08) DAILY PAIN SINCE FALL ON ICE AT WORK AUG 02, 2008 WC; re-injured 06/17/12 lifting at work; MRI 09/2012: MOD FACET ARTHROPATHY L5-S1, MILD L4-5 Tens unit 09/23/14; Functional Restor prg 07/2015 Gastro-esophageal reflux disease without esophagitis (Chronic 08/25/11) responds to PPI, unable to stop 02/2017 Diabetes mellitus (Chronic 04/16/14) 03/2014 hospital A1C 7%; goal A1c<7.5 Chronic rhinitis (Chronic 08/25/11) Cervicalgia (Acute 06/29/16) 06/29/16 Arthropathy, unspecified (Acute 08/25/11) marjorie knees Trigger thumb of right hand (Chronic) Depressive disorder (Chronic) Intermittent. Intermittent vertigo (Chronic) Obesity (Chronic) Hypertriglyceridemia (Chronic) Postmenopausal disorder (Acute) Ongoing hot flashes. Asthma (Chronic) Diagnosed in 1993 Neuropathy of finger (Chronic) Osteoarthritis of knee (Chronic) Tobacco use disorder (Acute) Medical History Metabolic dysfunction-associated steatohepatitis (MASH) Vestibular migraine Nocturnal hypoxia Managed by [facility] (Sushma Burt NP) 11/07/24 f/u at Sleep [facility] Rheumatoid arthritis Severe obstructive sleep apnea (05/18/23) [facility] - recommend CPAP use Cerebral aneurysm (04/28/22) LICA Balance disorder Episodes of ataxic gait, per pt report (as if drunk), and veering off-road x1. Presumed BPV, but re-assessing. Hepatitis C Nonalcoholic steatohepatitis (BUI) [place]o [facility] 02/20/19. Essential hypertension Uncontrolled type 2 diabetes mellitus without complication, with long-term current use of insulin Chronic airway obstruction (06/05/14) exacerbation 03/2014 [facility]; FEV1 1.6 (58& pred; 62% FVC) no response to bronchodilators Benign paroxysmal vertigo Dr Marshall testing 2000; head CT 10/06/02 & 03/05/06; HAD IN PAST; AGAIN 02/2012; again 08/08/13 to L Hyperlipidemia History of hepatitis C S/P full treatment. Negative virology since 2001 Surgical History Internal carotid artery stent present Status post cataract extraction and insertion of intraocular lens of right eye (12/24/23) Juan Carlos Patterson MD [facility] History of laryngoscopy 04/10/19 transnasal laryngoscopy salivary gland (02/23/17) [facility], left submental ganglion wrist cyst removal x2 elbow surg x2 UGI W/ BX (10/10/17) [facility] section x3 COLONOSCOPY W/ BX (10/10/17) Family History Father Heart disease Sister COPD (chronic obstructive pulmonary disease) Obese Brother Diabetes Essential hypertension Asthma Heart disease Hypertension Brother COPD (chronic obstructive pulmonary disease) Brother Alcohol abuse Brother Neoplasm non hodgkins lymphoma Mother COPD (chronic obstructive pulmonary disease) Asthma Heart disease Hypertension Social History Smoking/Tobacco Use Status: Current every day Tobacco Type: cigarettes Tobacco: How many years used: 10 Second Hand Exposure: No Smoking risk assessment performed?: Yes Alcohol Intake: former Drug use: Never Substance use type: does not use Adopted: No Foster care: No Household members: family and other Details: mother Housing: house Number of Children: 3 Communication Needs: Corrective Lenses Do you need help understanding health information?: Rarely current occupation: [employer] Pets and animals: Yes Pets and animals: cat(s), dog(s) and bird(s) Sexually active: No Do you think of yourself as: straight/heterosexual Current gender identity: female What is your relationship status?: How often do you talk on the phone with friends or family?: three or more times per week How often do you get together with friends or relatives?: decline to answer How often do you attend restorationism or worship services?: 1-3 times per year Panel score (0-1 are the most socially isolated patients): 1 What type of physical activity do you participate in: none Meg/Sabianist: None Special meg needs: No Seatbelt use: always Helmet use: Yes Helmet use: other Details: N/A Drive intox or ride w/intox 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
== END 2025-03-07 12:49 | disposition home or self-care (01) | DRG 682 ==
LOC: ER 17:24 → ICU 17:25
PROVIDERS: Admitting Provider Family Medicine; Emergency Provider Student in an Organized Health Care Education/Training Program; PCP Family Medicine; Responsible Provider Family Medicine; Visit Provider Family Medicine
DX: N17.9 Acute kidney failure, unspecified (principal); R57.1 Hypovolemic shock; Z59.811 Housing instability, housed, with risk of homelessness; E27.40 Unspecified adrenocortical insufficiency; I95.2 Hypotension due to drugs; T38.3X5A Adverse effect of insulin and oral hypoglycemic [antidiabetic] drugs, initial encounter; K75.81 Nonalcoholic steatohepatitis (NASH); I95.9 Hypotension, unspecified; I67.1 Cerebral aneurysm, nonruptured; E11.65 Type 2 diabetes mellitus with hyperglycemia; Z79.84 Long term (current) use of oral hypoglycemic drugs; Z79.4 Long term (current) use of insulin; R53.1 Weakness; K57.30 Diverticulosis of large intestine without perforation or abscess without bleeding; I65.02 Occlusion and stenosis of left vertebral artery; Z95.828 Presence of other vascular implants and grafts; E11.42 Type 2 diabetes mellitus with diabetic polyneuropathy; F51.5 Nightmare disorder; G47.8 Other sleep disorders; G47.33 Obstructive sleep apnea (adult) (pediatric); M76.72 Peroneal tendinitis, left leg; M77.42 Metatarsalgia, left foot; F17.210 Nicotine dependence, cigarettes, uncomplicated; H90.3 Sensorineural hearing loss, bilateral; Z86.73 Personal history of transient ischemic attack (TIA), and cerebral infarction without residual deficits; H81.11 Benign paroxysmal vertigo, right ear; I10 Essential (primary) hypertension; R26.0 Ataxic gait; E78.5 Hyperlipidemia, unspecified; M06.9 Rheumatoid arthritis, unspecified; F43.10 Post-traumatic stress disorder, unspecified; M54.2 Cervicalgia; J45.909 Unspecified asthma, uncomplicated; E66.9 Obesity, unspecified; F32.A Depression, unspecified; M15.9 Polyosteoarthritis, unspecified; E78.1 Pure hyperglyceridemia; Z59.9 Problem related to housing and economic circumstances, unspecified; R51.9 Headache, unspecified
CPT/HCPCS: 00123; 36415; 36416; 70496; 70498; 71275; 80048; 80053; 82533; 82962; 85027; 87040; 93005; 96365; 96375; 99285; J1650; 74174; 81003; 81015; 82088; 83036; 83605; 83735; 83880; 84484; 85025; 85610; 85730; 86140; 93010; 99223; 99238; J0131; J1815; J3475; J3490

== ENCOUNTER 2025-03-08 08:03 | Emergency (ER) | payer MEDICARE, MEDICAID, SELFPAY ==
[2025-03-08] VITALS (34 sets, daily range): BP systolic 97–167; BP diastolic 48–91; PULSE 63–97; RESP 13–27; TEMP 36.6; O2SAT 88–99
--- NOTE | 2025-03-08 08:00 | RT.EKG_ITS ---
APPROVED REPORT Exam: Resting ECG Reason for Exam: dizzy Patient Location: E HR:85 bpm ECG Measurements Heart Rate 85 AXIS VT 177 P 63 QRSd 72 QRS -1 QT 356 T 45 QTc 423 Conclusion Sinus rhythm...normal P axis, V-rate 60- 99 Low voltage, extremity and precordial leads...extremity<0.5mV, precordial<1.0mV No Occlusion MO
[2025-03-08 08:44] LABS: BE (Venous) 4 mmol/L (-2-3); HCO3 (Venous) 28 mmol/L (23-28); O2 Sat (Venous) 90 %; TCO2 (Venous) 25 mmol/L (24-29); pCO2 (Venous) 44 mmHg (41-51); pO2 (Venous) 48 mmHg
[2025-03-08] MEDS: diazePAM 10 MG/2 ML SYR 2.5 MG IVP (08:45)
[2025-03-08] MEDS: Normal Saline 1,000 ML 500 ML IV (08:45)
[2025-03-08] MEDS: ACETAMINOPHEN 500 MG/50 ML BAG 200 MG IVPB (08:47)
[2025-03-08 09:06] LABS: Creatine Kinase 60 U/L (26-192)
[2025-03-08 09:16] LABS: Magnesium 1.7 mg/dL (1.8-2.4); TSH (W/Ref FT4) 5.00 uIU/mL (0.36-3.74); Troponin I 6 ng/L (<or=51)
[2025-03-08 09:17] LABS: Procalcitonin < 0.10 ng/mL
[2025-03-08 09:47] LABS: Lab Add On Test DONE
[2025-03-08 10:06] LABS: ALT 17 U/L (14-59); AST 17 U/L (15-37); Albumin 3.3 g/dL (3.4-5.0); Alkaline Phosphatase 80 U/L (46-116); Anion Gap 11.2 mmol/L (3-11); BUN 13 mg/dL (7-18); Bilirubin, Total 0.3 mg/dL (0.2-1.0); CO2 26.8 mmol/L (21.0-32.0); Calcium 8.5 mg/dL (8.5-10.1); Chloride 98 mmol/L (98-107); Estimated GFR 81.72 (mL/min/1.73m2); Glucose 231 mg/dL (74-106); Potassium 3.9 mmol/L (3.5-5.1); Sodium 136 mmol/L (136-145); Total Protein 6.3 g/dL (6.4-8.2)
[2025-03-08 10:07] LABS: HCT 40.5 % (36.0-46.0); HGB 13.6 g/dL (11.2-15.7); MCH 29.5 pg (27.0-33.0); MCHC 33.6 % (32.0-36.0); MCV 88 fL (80-95); MPV 10.7 fL (8.0-11.0); Platelet Count 144 10^3/uL (130-400); RBC 4.61 10^6/uL (3.93-5.22); RDW 13.0 % (11.7-14.6); RDW-SD 41.5 fL; WBC 8.41 10^3/uL (4.4-10.8)
[2025-03-08 10:10] LABS: Troponin I 7 ng/L (<or=51)
[2025-03-08 10:58] LABS: Glucose Negative (Negative)
--- NOTE | 2025-03-08 14:36 | W.ED.GENAD ---
Discharge Plan Disposition Patient Disposition: Home Discharge Details Clinical Impression: Labile blood pressure, Cervical radiculopathy, Stenosis of left vertebral artery, Hypothyroidism Primary Care Provider: Hai Lopez ED Provider: Katelyn Kearney Home Meds and New Rx's Prescriptions: New dexamethasone 4 mg tablet 4 mg PO DAILY Qty: 3 0RF Rx Instructions: take one table every other day for 6 days Continued aspirin [Adult Aspirin Regimen] 81 mg tablet,delayed release (DR/EC) 81 mg PO DAILY Rx Instructions: Must be Enteric-Coated. EO albuterol sulfate 1.25 mg/3 mL solution for nebulization 1.25 mg IH QID PRN (Reason: shortness of breath or wheezing) Qty: 120 11RF [place] Saline 0.65 % aerosol,spray 2 spray intranasal QID PRN (Reason: dry nasal passages) Qty: 50 1RF fluticasone furoate 27.5 mcg/actuation spray,suspension 2 spray intranasal DAILY Qty: 9.1 1RF Rx Instructions: into each nostril ondansetron 4 mg tablet,disintegrating 4 mg PO Q8H PRN (Reason: nausea and vomiting) Qty: 30 0RF diazepam 10 mg tablet 10 mg PO QHS PRN (Reason: insomnia) Qty: 14 0RF lorazepam 1 mg tablet 1 mg PO Q8H PRN (Reason: anxiety) Qty: 20 0RF Nurtec ODT 75 mg tablet,disintegrating 75 mg PO ONCE PRN (Reason: migraine headache) Qty: 8 5RF Rx Instructions: as a single dose; no more than 1 tab per day prazosin 5 mg capsule 5 mg PO QHS Qty: 90 3RF (DME) FreeStyle Coby 2 Sensor Kit See Rx Instructions .ROUTE .COMPLEX Qty: 1 11RF Dose Instruction: USE DIRECTED TO KEEP HBA1C LESS THAN 6.5% Rx Instructions: USE DIRECTED TO KEEP HBA1C LESS THAN 6.5% albuterol sulfate [Ventolin HFA] 90 mcg/actuation HFA aerosol inhaler 2 puff inhalation Q6H PRN (Reason: shortness of breath or wheezing) Qty: 8.5 6RF paroxetine HCl 40 mg tablet 40 mg PO DAILY Qty: 90 3RF pantoprazole 40 mg tablet,delayed release (DR/EC) 40 mg PO DAILY Qty: 90 3RF hydroxychloroquine 200 mg tablet 200 mg PO DAILY Qty: 90 3RF Januvia 100 mg tablet 100 mg PO DAILY Qty: 90 3RF (DME) FreeStyle Coby 14 Day [facility] [place] See Rx Instructions .ROUTE .MEDSUPPLY Qty: 1 0RF Rx Instructions: As directed (DME) pen needle, diabetic [BD Ultra-Fine Mini Pen Needle] 31 gauge x 3/16 needle See Dose Instructions .ROUTE .MEDSUPPLY Qty: 100 12RF Dose Instruction: As directed Rx Instructions: As directed acetaminophen [Acetaminophen Extra Strength] 500 mg tablet 1,000 mg PO Q6H PRN lisinopril 20 mg tablet 20 mg PO DAILY Qty: 90 3RF Rx Instructions: to lower blood pressure under 130/85 insulin lispro [Humalog KwikPen Insulin] 100 unit/mL insulin pen See Rx Instructions SC TID MDD 27 units Qty: 15 3RF Rx Instructions: Take 2 units for for every 30G carbs. Sliding scale 141-160 1 unit,161-180 2units,181-200 3 units,201-220 4 units,221-240 5 units, 241-260 6 units, 261-280 7 units, 281-300 8units, 300 or higher 9 units and call MD( [facility] SLIDING SCALE) pregabalin 200 mg capsule 200 mg PO TID Qty: 270 2RF pioglitazone 15 mg Tablet 15 mg PO DAILY Qty: 30 2RF insulin degludec [Tresiba FlexTouch U-200] 200 unit/mL (3 mL) insulin pen 50 unit subcut HS MDD 84 units Qty: 9 6RF Discharge Instructions Instructions: Hypothyroidism (underactive thyroid), Radiculopathy (DC) Additional Instructions: Use the walker if you need help going from sitting to standing, when you go to stand up, give yourself some extra time to acclimate and do not start walking right away Take the steroid, this pain from your neck, take this medication every other day Try to take the next 2 days off Please follow-up with your doctor this week I am recommending MRIs in the outpatient setting, I have reviewed this with your primary care physician and hopeful that you may have a reassessment early this upcoming week You also need follow-up with vascular surgery in the next month, I am listing a referral, they will call you The steroid will cause your blood sugar to be slightly elevated while you are taking it, do not be alarmed Please return immediately should you have new or worsening complaints continue to hold your prazosin and lisinopril as instructed Referrals: Hai Lopez DO [Primary Care Provider, Medicine] HPI General Date/Time Provider Initiated Documentation: 03/08/25 08:04. HPI Narrative: This 64-year-old female with history of hypothyroidism left internal carotid artery with stent peripheral neuropathy history of stroke TIA cirrhosis and recent hospitalization for labile blood pressure presents with report of hypotension just prior to arrival. She was evaluated and discharged from this facility yesterday with hypotension which was fluid responsive. She reportedly was feeling improvement and requested discharge home on the went home and proceeded to work better close of appointment that evening. She woke this morning felt fine but went into work and became very lightheaded checked her blood pressure again and found it to be 80/46 which is why she presents. She also had recurrence of the back pain associated. Back pain radiates across top of her shoulder blades radiates into her head. She states this is the same pain that she has had intermittently for the past 4 days. She denies any exacerbation today. She has paresthesias to her arms. She states that she has borderline neuropathy in her arm she states that the [id number] sensation is worse today. Denies speech or sensation change. States she has had some intermittent dizziness she states it is different from her vertigo describes more of a lightheaded sensation. Related Data Home Medications ?Medication ?Instructions ?Recorded ?Confirmed aspirin 81 mg tablet,delayed 81 mg PO DAILY 12/26/19 03/08/25 release (Adult Aspirin Regimen) flash glucose scanning reader #1 ea 07/22/20 03/08/25 (FreeStyle Coby 14 Day [place]) pen needle, diabetic 31 gauge x #100 ea 11/03/21 03/08/25/16 (BD Ultra-Fine Mini Pen Needle) fluticasone furoate 27.5 2 spray intranasal DAILY #9.1 mL 03/14/22 03/08/25 mcg/actuation nasal spray,suspension albuterol sulfate 1.25 mg/3 mL 1.25 mg (3 mL) inhalation QID PRN 07/07/22 03/08/25 solution for nebulization shortness of breath or wheezing #120 mL acetaminophen 500 mg tablet 1,000 mg PO Q6H PRN 09/18/22 03/08/25 (Acetaminophen Extra Strength) ondansetron 4 mg disintegrating 4 mg PO Q8H PRN nausea and 04/10/23 03/08/25 tablet vomiting #30 tabs sodium chloride 0.65 % nasal spray 2 spray intranasal QID PRN dry 08/10/23 03/08/25 aerosol ([place] Saline) nasal passages #50 mL lisinopril 20 mg tablet 20 mg PO DAILY #90 tab-caps 04/11/24 03/08/25 diazepam 10 mg tablet 10 mg PO QHS PRN insomnia #14 tabs 06/02/24 03/08/25 lorazepam 1 mg tablet 1 mg PO Q8H PRN anxiety #20 tabs 08/04/24 03/08/25 rimegepant 75 mg disintegrating 75 mg PO ONCE PRN migraine 08/04/24 03/08/25 tablet (Nurtec ODT) headache #8 tabs albuterol sulfate 90 mcg/actuation 2 puff inhalation Q6H PRN 01/27/25 03/08/25 aerosol inhaler (Ventolin HFA) shortness of breath or wheezing #8.5 grams flash glucose sensor (FreeStyle #1 ea 01/27/25 03/08/25 Coby 2 Sensor kit) hydroxychloroquine 200 mg tablet 200 mg PO DAILY #90 tabs 01/27/25 03/08/25 pantoprazole 40 mg tablet,delayed 40 mg PO DAILY #90 tabs 01/27/25 03/08/25 release paroxetine HCl 40 mg tablet 40 mg PO DAILY #90 tabs 01/27/25 03/08/25 prazosin 5 mg capsule 5 mg PO QHS #90 caps 01/27/25 03/08/25 sitagliptin phosphate 100 mg 100 mg PO DAILY #90 tabs 01/27/25 03/08/25 tablet (Januvia) insulin lispro 100 unit/mL See Rx Instructions subcut TID #15 02/26/25 03/08/25 subcutaneous pen (Humalog KwikPen mL (U-100) Insulin) pregabalin 200 mg capsule 200 mg PO TID #270 caps 02/26/25 03/08/25 insulin degludec 200 unit/mL (3 50 unit (0.25 mL) subcut HS #9 mL 03/07/25 03/08/25 mL) subcutaneous pen (Tresiba FlexTouch U-200 insulin) pioglitazone 15 mg tablet 15 mg PO DAILY #30 tabs 03/07/25 03/08/25 dexamethasone 4 mg tablet 4 mg PO DAILY #3 tabs 03/08/25 Previous Rx's ?Medication ?Instructions ?Recorded flash glucose scanning reader #1 ea 07/22/20 (FreeStyle Coby 14 Day [place]) pen needle, diabetic 31 gauge x #100 ea 11/03/21/16 (BD Ultra-Fine Mini Pen Needle) fluticasone furoate 27.5 2 spray intranasal DAILY #9.1 mL 03/14/22 mcg/actuation nasal spray,suspension albuterol sulfate 1.25 mg/3 mL 1.25 mg (3 mL) inhalation QID PRN 07/07/22 solution for nebulization shortness of breath or wheezing #120 mL ondansetron 4 mg disintegrating 4 mg PO Q8H PRN nausea and 04/10/23 tablet vomiting #30 tabs sodium chloride 0.65 % nasal spray 2 spray intranasal QID PRN dry 08/10/23 aerosol ([place] Saline) nasal passages #50 mL lisinopril 20 mg tablet 20 mg PO DAILY #90 tab-caps 04/11/24 diazepam 10 mg tablet 10 mg PO QHS PRN insomnia #14 tabs 06/02/24 lorazepam 1 mg tablet 1 mg PO Q8H PRN anxiety #20 tabs 08/04/24 rimegepant 75 mg disintegrating 75 mg PO ONCE PRN migraine 08/04/24 tablet (Nurtec ODT) headache #8 tabs albuterol sulfate 90 mcg/actuation 2 puff inhalation Q6H PRN 01/27/25 aerosol inhaler (Ventolin HFA) shortness of breath or wheezing #8.5 grams flash glucose sensor (FreeStyle #1 ea 01/27/25 Coby 2 Sensor kit) hydroxychloroquine 200 mg tablet 200 mg PO DAILY #90 tabs 01/27/25 pantoprazole 40 mg tablet,delayed 40 mg PO DAILY #90 tabs 01/27/25 release paroxetine HCl 40 mg tablet 40 mg PO DAILY #90 tabs 01/27/25 prazosin 5 mg capsule 5 mg PO QHS #90 caps 01/27/25 sitagliptin phosphate 100 mg 100 mg PO DAILY #90 tabs 01/27/25 tablet (Januvia) insulin lispro 100 unit/mL See Rx Instructions subcut TID #15 02/26/25 subcutaneous pen (Humalog KwikPen mL (U-100) Insulin) pregabalin 200 mg capsule 200 mg PO TID #270 caps 02/26/25 insulin degludec 200 unit/mL (3 50 unit (0.25 mL) subcut HS #9 mL 03/07/25 mL) subcutaneous pen (Tresiba FlexTouch U-200 insulin) pioglitazone 15 mg tablet 15 mg PO DAILY #30 tabs 03/07/25 dexamethasone 4 mg tablet 4 mg PO DAILY #3 tabs 03/08/25 Allergies Allergy/AdvReac Type Severity Reaction Status Date / Time fluoxetine HCl (From Prozac) Allergy Intermediate rash Verified 03/08/25 08:14 glipizide AdvReac Severe hypotension Verified 03/08/25 08:14 metformin AdvReac Severe diarrhea Verified 03/08/25 08:14 rofecoxib (From Vioxx) AdvReac Severe bleeding Verified 03/08/25 08:14 aspirin AdvReac Intermediate GI Upset Verified 03/08/25 08:14 celecoxib (From Celebrex) AdvReac Intermediate GI Upset Verified 03/08/25 08:14 naproxen AdvReac Intermediate Stomach Verified 03/08/25 08:14 intolerance General Stated Complaint: Dizzy/Sync HOSSEIN: 3 Exam Narrative Exam Narrative: Alert and oriented 64-year-old female presenting in no acute distress pupils equal round reactive to light and accommodation extraocular muscles intact without nystagmus no bruits appreciated on neck exam tenderness overlying trapezius muscles and scalene, lungs with scant scattered wheezes no respiratory distress cardiac rate rhythm regular no abdominal tenderness appreciated. reproducible tenderness over trapezius muscles bilaterally Course Vital Signs Vital signs: Vital Signs Temperature 36.6 C 03/08/25 08:07 Pulse 91 H 03/08/25 08:07 Respiratory Rate 19 03/08/25 08:07 Blood Pressure 107/52 L 03/08/25 08:07 Pulse Oximetry 95 03/08/25 08:07 Temperature 36.6 C 03/08/25 08:07 Temperature Source Oral 03/08/25 08:07 Pulse 93 H 03/08/25 10:51 Pulse 87 03/08/25 10:51 Respiratory Rate 15 03/08/25 10:51 Respiratory Effort Normal 03/08/25 08:36 Blood Pressure 167/91 H 03/08/25 10:51 Blood Pressure Mean 117 03/08/25 10:51 Blood Pressure Position Sitting 03/08/25 08:07 Pulse Oximetry 97 03/08/25 10:51 Oxygen Delivery Method Room Air 03/08/25 08:07 Oxygen Flow Rate 0 03/08/25 08:07 Pain Level 7 03/08/25 08:07 Lab/Test Results Lab/Test Results: Laboratory Tests Range/Units 03/08/25 03/08/25 03/08/25 08:13 08:42 09:41 WBC Cancelled RBC Cancelled Hgb Cancelled Hct Cancelled MCV Cancelled MCH Cancelled MCHC Cancelled RDW Cancelled Plt Count Cancelled MPV Cancelled VBG pH (7.31-7.41) 7.41 VBG pCO2 (41-51) mmHg 44 VBG pO2 mmHg 48 VBG HCO3 (23-28) mmol/L 28 VBG Total CO2 (24-29) mmol/L 25 VBG O2 Saturation % 90 VBG Base Excess (-2-3) mmol/L 4 H VBG Lactate (<or=2.0) mmol/L 1.4 Sodium (136-145) mmol/L 136 Potassium (3.5-5.1) mmol/L 3.9 Chloride (98-107) mmol/L 98 Carbon Dioxide (21.0-32.0) mmol/L 26.8 Anion Gap (3-11) mmol/L 11.2 H BUN (7-18) mg/dL 13 Creatinine (0.55-1.02) mg/dL 0.8 Est GFR (CKD-EPI 2020) (mL/min/1.73m2) 81.72 Glucose (74-106) mg/dL 231 H Calcium (8.5-10.1) mg/dL 8.5 Magnesium (1.8-2.4) mg/dL 1.7 L Total Bilirubin (0.2-1.0) mg/dL 0.3 AST (15-37) U/L 17 ALT (14-59) U/L 17 Alkaline Phosphatase (46-116) U/L 80 Creatine Kinase (26-192) U/L 60 Troponin I (<or=51) ng/L 6 7 Total Protein (6.4-8.2) g/dL 6.3 L Albumin (3.4-5.0) g/dL 3.3 L Procalcitonin ng/mL < 0.10 TSH (0.36-3.74) uIU/mL 5.00 H Free T4 (0.76-1.46) ng/dL 0.89 Urine Color (Yellow) Urine Clarity (Clear) Urine pH (5-8) Ur Specific [place] (1.005-1.025) Urine Protein (Neg-Trace) mg/dL Urine Ketones (Negative) mg/dL Urine Blood (Negative) Urine Nitrite (Negative) Urine Bilirubin (Negative) Urine Urobilinogen (Up to 0.2) mg/dL Ur Leukocyte Esterase (Negative) Urine Glucose (Negative) mg/dL Add-On Test Request DONE Range/Units 03/08/25 03/08/25 10:00 10:52 WBC 8.41 RBC 4.61 Hgb 13.6 Hct 40.5 MCV 88 MCH 29.5 MCHC 33.6 RDW 13.0 Plt Count 144 MPV 10.7 VBG pH (7.31-7.41) VBG pCO2 (41-51) mmHg VBG pO2 mmHg VBG HCO3 (23-28) mmol/L VBG Total CO2 (24-29) mmol/L VBG O2 Saturation % VBG Base Excess (-2-3) mmol/L VBG Lactate (<or=2.0) mmol/L Sodium (136-145) mmol/L Potassium (3.5-5.1) mmol/L Chloride (98-107) mmol/L Carbon Dioxide (21.0-32.0) mmol/L Anion Gap (3-11) mmol/L BUN (7-18) mg/dL Creatinine (0.55-1.02) mg/dL Est GFR (CKD-EPI 2020) (mL/min/1.73m2) Glucose (74-106) mg/dL Calcium (8.5-10.1) mg/dL Magnesium (1.8-2.4) mg/dL Total Bilirubin (0.2-1.0) mg/dL AST (15-37) U/L ALT (14-59) U/L Alkaline Phosphatase (46-116) U/L Creatine Kinase (26-192) U/L Troponin I (<or=51) ng/L Total Protein (6.4-8.2) g/dL Albumin (3.4-5.0) g/dL Procalcitonin ng/mL TSH (0.36-3.74) uIU/mL Free T4 (0.76-1.46) ng/dL Urine Color (Yellow) Yellow Urine Clarity (Clear) Clear Urine pH (5-8) 5.5 Ur Specific [place] (1.005-1.025) <= 1.005 Urine Protein (Neg-Trace) mg/dL Negative Urine Ketones (Negative) mg/dL Negative Urine Blood (Negative) Negative Urine Nitrite (Negative) Negative Urine Bilirubin (Negative) Negative Urine Urobilinogen (Up to 0.2) mg/dL 0.2 Ur Leukocyte Esterase (Negative) Negative Urine Glucose (Negative) mg/dL Negative Add-On Test Request Medical Decision Making Results: Reviewed CTA head and neck and CT chest abdomen pelvis from 03/06 which shows new left vertebral artery stenosis, CBC without acute abnormality CMP shows hyperglycemia at 231 magnesium of 1.7 TSH of 5 with free T4 of 0.89. Assessment and plan: Patient's blood pressure appears to be labile +6 she has had several episodes of such as this in the past 3 months. She was taken off her prazosin and lisinopril. Patient was also taken off her glipizide at her last appointment. I spent approximately 5 minutes reviewing her discharge summary from yesterday. - Patient was given 1 L of NS and her blood pressure remained stable in fact is elevated at 160/80 I checked orthostatics, patient was not orthostatic on my assessment she is now ambulatory with steady gait without any dizziness or lightheadedness - I did not repeat imaging today as patient has had approximately 4 CTAs of her head and neck in the past 5 months I did instead speak with neurosurgery who apparently placed patient's left internal carotid stent and they recommended an MRI of patient's brain and cervical spine and a outpatient capacity to further evaluate for her symptoms - I subsequently spoke to vascular surgery regarding the vertebral artery stenosis of 70% -I did place patient on Decadron, she is aware that this might increase her blood glucose however it may help with the pain radiating down her arms -She is encouraged to take at least 8 ounces of water every hour while she is awake I did give patient a walker to assist when going from sitting to standing as she at home was endorsing some orthostatic symptoms although she is not orthostatic here after fluids and blood pressure has remained stable for 3 hours I did refer patient back to her PCP to order duplex carotid ultrasound MRI brain without contrast and MRI cervical spine without contrast closely in the outpatient setting as recommended by [facility] Differential diagnosis with this patient includes BPPV CVA overmedication dehydration - Discussed admission versus discharge patient prefers discharge at this time work note given for 2 days return precautions reviewed and patient expressed understanding Quality:SDOH Health Related Social Needs: Health related social needs risk of homeless house/econ circumstance Health related social needs details help with housing PFSH All Active Problems (Updated 03/08/25 @ 11:53 by GOMEZ López) Hypothyroidism (Chronic) Stenosis of left vertebral artery (Acute) Cervical radiculopathy (Acute) Labile blood pressure (Acute) Aneurysm of left internal carotid artery (Acute) [facility] note 12/11/24.HE Diabetic peripheral neuropathy (Acute) Obstructive sleep apnea (adult) (pediatric) (Acute) 11/07/24 F[facility]u at [facility]; currently using Bi Pap Postmenopausal disorder (Acute) Ongoing hot flashes. Acute nightmare disorder with associated non-sleep disorder, during sleep onset (Acute) Grief reaction (Chronic) Peroneal tendonitis of left lower extremity (Acute) Foot pain, left (Acute) Ganglion cyst of left foot (Acute) Metatarsalgia, left foot (Acute) Tobacco use disorder (Acute) Vertigo (Chronic) Managed by [facility] Dizziness; Dysequilibrium Cataract (Chronic 11/28/23) Age-related nuclear cataract (H25.13) History of stroke (Acute) Sensorineural hearing loss (SNHL) of both ears (Acute) Allergic sinusitis (Acute) Myofascial muscle pain (Acute) Osteoarthritis of knee (Chronic) Asthma (Chronic) Diagnosed in 1993 Obesity (Chronic) Hypertriglyceridemia (Chronic) Gastro-esophageal reflux disease without esophagitis (Chronic 08/25/11) responds to PPI, unable to stop 02/2017 Type 2 diabetes mellitus with hyperglycemia (Acute 10/12/15) 03/2014 hospital A1C 7%; goal A1c<7.5 Liver cirrhosis (Chronic) Stroke (Chronic) Depressive disorder (Chronic) Intermittent. Polyarthritis (Acute) Unspecified visual disturbance (Acute) [facility] opthalmology Unspecified visual field defects (Acute) Exophoria (Acute) Benign paroxysmal positional vertigo of right ear (Acute) Referred otalgia of right ear (Acute) Neck pain (Acute 06/29/16) Steroid-induced hyperglycemia (Acute 03/09/14) Other sleep disturbances (Acute 08/16/12) when back hurts and left knee/leg throb, sleep is disturbed Mechanical low back pain (Acute 08/02/08) DAILY PAIN SINCE FALL ON ICE AT WORK AUG 02, 2008 WC; re-injured 06/17/12 lifting at work; MRI 09/2012: MOD FACET ARTHROPATHY L5-S1, MILD L4-5 Tens unit 09/23/14; Functional Restor prg 07/2015 Diabetes mellitus (Chronic 04/16/14) 03/2014 hospital A1C 7%; goal A1c<7.5 Chronic rhinitis (Chronic 08/25/11) Cervicalgia (Acute 06/29/16) 06/29/16 Arthropathy, unspecified (Acute 08/25/11) marjorie knees Neuropathy of finger (Chronic) Intermittent vertigo (Chronic) Trigger thumb of right hand (Chronic) Medical History Metabolic dysfunction-associated steatohepatitis (MASH) Vestibular migraine Nocturnal hypoxia Managed by [facility] (Sushma Burt NP) 11/07/24 f/u at [facility] Rheumatoid arthritis Severe obstructive sleep apnea (05/18/23) [facility] - recommend CPAP use Cerebral aneurysm (04/28/22) LICA Balance disorder Episodes of ataxic gait, per pt report (as if drunk), and veering off-road x1. Presumed BPV, but re-assessing. Hepatitis C Nonalcoholic steatohepatitis (BUI) [facility] 02/20/19. Essential hypertension Uncontrolled type 2 diabetes mellitus without complication, with long-term current use of insulin Chronic airway obstruction (06/05/14) exacerbation 03/2014 [facility]; FEV1 1.6 (58& pred; 62% FVC) no response to bronchodilators Benign paroxysmal vertigo Dr Marshall testing 2000; head CT 10/06/02 & 03/05/06; HAD IN PAST; AGAIN 02/2012; again 08/08/13 to L Hyperlipidemia History of hepatitis C S/P full treatment. Negative virology since 2001 Surgical History Internal carotid artery stent present Status post cataract extraction and insertion of intraocular lens of right eye (12/24/23) Juan Carlos Patterson MD [facility] History of laryngoscopy 04/10/19 transnasal laryngoscopy salivary gland (02/23/17) [facility], left submental ganglion wrist cyst removal x2 elbow surg x2 UGI W/ BX (10/10/17) [facility] section x3 COLONOSCOPY W/ BX (10/10/17) Family History Father Heart disease Sister COPD (chronic obstructive pulmonary disease) Obese Brother Diabetes Essential hypertension Asthma Heart disease Hypertension Brother COPD (chronic obstructive pulmonary disease) Brother Alcohol abuse Brother Neoplasm non hodgkins lymphoma Mother COPD (chronic obstructive pulmonary disease) Asthma Heart disease Hypertension Social History Smoking/Tobacco Use Status: Current every day Tobacco Type: cigarettes Tobacco: How many years used: 10 Second Hand Exposure: No Smoking risk assessment performed?: Yes Alcohol Intake: former Drug use: Never Substance use type: does not use Details: Pt uses THC gummies to help with her chronic back pain PRN Adopted: No Foster care: No Household members: family and other Details: mother Housing: house Number of Children: 3 Communication Needs: Corrective Lenses Do you need help understanding health information?: Rarely current occupation: [employer] Pets and animals: Yes Pets and animals: cat(s), dog(s) and bird(s) Sexually active: No Do you think of yourself as: straight/heterosexual Current gender identity: female What is your relationship status?: How often do you talk on the phone with friends or family?: three or more times per week How often do you get together with friends or relatives?: decline to answer How often do you attend protestant or moravian services?: 1-3 times per year Panel score (0-1 are the most socially isolated patients): 1 What type of physical activity do you participate in: none Meg/Yarsani: None Special meg needs: No Seatbelt use: always Helmet use: Yes Helmet use: other Details: N/A 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
[2025-03-09 10:22] LABS: Lyme Ab w Rflx to Lyme Confirm Negative (Negative)
--- NOTE | 2025-03-09 19:17 | NUR.NOTE ---
Chart accessed for [facility] who was consulted 03/08/25 by Katelyn Kearney. They were looking if patient had an MRI and disposition of patient.Nursing Note:
[2025-03-10 23:52] LABS: B. miyamotoi PCR Negative (Negative); Babesia divergens/MO-1 Negative (Negative); Ehrlichia muris eauclairensis Negative (Negative)
== END 2025-03-08 12:03 | disposition home or self-care (01) ==
PROVIDERS: Emergency Provider Physician Assistant; PCP Family Medicine
DX: R09.89 Other specified symptoms and signs involving the circulatory and respiratory systems (principal); M54.12 Radiculopathy, cervical region; I65.02 Occlusion and stenosis of left vertebral artery; E03.9 Hypothyroidism, unspecified
CPT/HCPCS: 36415; 80053; 82550; 82805; 84145; 85027; 87798; 93005; 96365; 96366; 96375; 99284; 81003; 83605; 83735; 84439; 84443; 84484; 86618; 93010; J0131; J3360

== ENCOUNTER 2025-03-14 16:44 | Outpatient (REF) | payer MEDICARE, SELFPAY | END 2025-03-14 16:45 | disposition home or self-care (01) | LOC: LBN 16:44 | PROVIDERS: PCP Family Medicine; Visit Provider Nurse Practitioner Family | DX: N30.00 Acute cystitis without hematuria (principal) | CPT/HCPCS: 87086 ==